=== PATIENT | male | born 1960 | race Two or more races ===

== ENCOUNTER 2024-02-28 09:16 | Emergency (ER) | payer OTHER, SELFPAY ==
[2024-02-28] VITALS (18 sets, daily range): BP systolic 154–189; BP diastolic 94–115; PULSE 70–91; TEMP 36.9; O2SAT 95–100; BMI 25.1
--- NOTE | 2024-02-28 09:34 | CT_ITS ---
The [address] [address] Patient Name: LAN WITT MRN: [id number] date: 1960 Sex: M Assigned Patient Location: ER Current Patient Location: Accession/Order Number: [id number] Exam Date: 02/28/2024 10:06 Report Date: 02/28/2024 10:36 At the request of: JUAREZ NAYAK Procedure: CT cervical spine wo con EXAMINATION: CT cervical spine wo con HISTORY: fall ; fell striking back of head; head and neck pain COMPARISON: No relevant comparison available. TECHNIQUE: Axial, Coronal, and Sagittal images were created without IV contrast. Dose reduction techniques were achieved by using automated exposure control and/or adjustment of mA and/or kV according to patient size and/or use of iterative reconstruction technique. FINDINGS: VERTEBRAL BODIES: Normal height and alignment. No fracture or bone lesion. FACET JOINTS: Multilevel moderate degenerative facet arthropathy; marked at C4-5 on the left. Bone encroachment results in narrowing of the neural foramen at multiple levels with marked narrowing on the left at C4-5. No disruption or abnormal widening. DISCS: Early degenerative disc disease is present without focal protrusion or neural impingement. CENTRAL CANAL: No spinal stenosis or evidence of hemorrhage. PARASPINAL AREA: No visible mass. CT/CT cervical spine wo con IMPRESSION: 1. No appreciable acute abnormality. 2. Multilevel moderate to marked degenerative facet arthropathy resulting in foramen narrowing. Electronically authenticated by: NORY WAN Date: 02/28/2024 10:36
--- NOTE | 2024-02-28 09:34 | ECG_ITS ---
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
--- NOTE | 2024-02-28 09:35 | CT_ITS ---
The [address] [address] Patient Name: LAN WITT MRN: [id number] date: 1960 Sex: M Assigned Patient Location: ER Current Patient Location: Accession/Order Number: [id number] Exam Date: 02/28/2024 10:06 Report Date: 02/28/2024 10:30 At the request of: JUAREZ NAYAK Procedure: CT head/brain wo con EXAMINATION: CT head/brain wo con HISTORY: fall ; patient fell recently striking back of head; head and neck pain COMPARISON: No relevant comparison available. TECHNIQUE: Axial CT images were obtained without IV contrast. Dose reduction techniques were achieved by using automated exposure control and/or adjustment of mA and/or kV according to patient size and/or use of iterative reconstruction technique. FINDINGS: BRAIN: No edema, hemorrhage, mass, acute infarction, or inappropriate atrophy. Incidental tiny calcification within left basal ganglia. CSF SPACES: No hydrocephalus, subarachnoid hemorrhage, or mass. Appropriate for age. SKULL: No fracture, mass, or other significant visible lesion. SINUSES: No significant mucosal thickening or fluid on the limited views. ORBITS: No appreciable abnormality on the limited views. OTHER: Negative CT/CT head/brain wo con IMPRESSION: 1. No acute intracranial abnormality. 2. No fracture of the calvarium or scalp hematoma. Electronically authenticated by: NORY WAN Date: 02/28/2024 10:30
--- NOTE | 2024-02-28 09:36 | ED.GENADUL1 ---
HPI HPI - General Adult General Chief complaint: Fall Stated complaint: HEAD/NECK PAIN Time Seen by Provider: 02/28/24 09:28 Source: patient Mode of arrival: walk-in Limitations: no limitations History of Present Illness HPI narrative: The patient have history of diabetes coming to us with 3 episodes of fall happened over the last few months the last 1 was a week ago, patient mentioned that he will be standing all of a sudden talking to his all of a sudden he will pass out and fall in the floor, he remembers just waking up in the floor he denies any nausea vomiting any preceding symptoms chest pain or dizziness But the patient mentioned that when he wakes up usually he is not confused he recognize where he had and he just wakes up and starts walking The patient denies any nausea vomiting or diarrhea, he does not have any primary care doctor that he follow-up with. 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 The patient is coming today with a pain in the back of his head as well as bilateral neck pain that he noticed over the last few days The patient denies any blurry vision or double vision more than his usual blurry vision due to his diabetes according to his history He also have bilateral hand numbness and feet numbness that due to diabetes too Related Data Home Medications ?Medication ?Instructions ?Recorded ?Confirmed dapagliflozin propanediol 10 mg 10 mg PO DAILY 02/28/24 02/28/24 tablet (Farxiga) insulin aspart 1 sliding scale dose subcut DAILY 02/28/24 02/28/24 (niacinamide)(U-100) 100 unit/mL(3 mL) subcutaneous pen (Fiasp FlexTouch U-100 Insulin) lisinopril 5 mg tablet 5 mg PO DAILY 02/28/24 02/28/24 metformin 500 mg tablet,extended 1,000 mg PO DAILY 02/28/24 02/28/24 release 24 hr rosuvastatin 40 mg tablet 40 mg PO DAILY 02/28/24 02/28/24 semaglutide 0.25 mg or 0.5 mg (2 0.5 mg subcut .weekly 02/28/24 02/28/24 mg/3 mL) subcutaneous pen injector (Ozempic) Previous Rx's ?Medication ?Instructions ?Recorded diclofenac sodium 50 mg 50 mg PO Q12H PRN pain #10 tabs 02/28/24 tablet,delayed release magnesium oxide 420 mg tablet 420 mg PO DAILY #10 tabs 02/28/24 orphenadrine citrate 100 mg 100 mg PO ONCE PRN muscle spasm 02/28/24 tablet,extended release #10 tabs Allergies Allergy/AdvReac Type Severity Reaction Status Date / Time No Known Drug Allergies Allergy Verified 02/28/24 09:22 Opioid HPI Opioid Management Most Recent Opioid Data: Last Pain Scale 2 02/28/24 11:29 02/28/24 Last ED Pain Assessment 02/28/24 11:29 Last MAR Pain Assessment 02/28/24 09:59 Review of Systems ROS Status of ROS 10 or more systems reviewed and unremarkable except as noted in history and below PFSH PFSH Social History Little interest or pleasure in doing things: not at all Feeling down, depressed, or hopeless: not at all Exam Narrative Exam Narrative: Nurses notes and vital signs reviewed and patient is not hypoxic. General: Well-appearing and in no apparent distress. Skin: Warm, dry, no pallor noted. No rash. Head: Normocephalic, atraumatic. Neck: There is no intervertebral line tenderness in the lower cervical levels but in the upper cervical level there is paraspinal muscle tenderness as well as intervertebral line tenderness Eye: Pupils are equal, round and EOMI. No scleral icterus. Ears, Nose, Mouth, and Throat: TM are clear, no nasal mucosal hypertrophy. Oral mucosa is moist, no posterior oropharynx erythema, uvula is mid-line Cardiovascular: Regular Rate and Rhythm without murmur, gallop or rub. Respiratory: No accessory muscle use or respiratory distress. Lungs are clear to auscultation, no wheezing, rales or rhonchi Chest Wall: no tenderness Back: No midline thoracic or lumbar vertebral tenderness. No CVA tenderness Musculoskeletal: normal ROM, no calf or popliteal tenderness, no lower extremity edema/swelling GI: Abdomen is soft, non-distended. Normal bowel sounds. No masses appreciated. No tenderness to palpation. No rebound, guarding, or rigidity noted. Neurological: A&O x4. No cranial nerve dysfunction observed. No truncal ataxia. Moves all extremities. Sensation intact. Psychiatric: Cooperative and interactive. Normal mood and affect. Constitutional Vital Signs, click to edit/add: Last Vital Signs Temp 98.4 F 02/28/24 09:34 Pulse 75 02/28/24 11:20 Resp 22 H 02/28/24 11:20 BP 189/94 H 02/28/24 11:00 Pulse Ox 96 02/28/24 11:20 O2 Del Method Room Air 02/28/24 09:22 Course Vital Signs Vital signs: Vital Signs Pulse Rate 91 H 02/28/24 09:22 Respiratory Rate 16 02/28/24 09:22 Blood Pressure 154/115 H 02/28/24 09:22 Pulse Oximetry 100 02/28/24 09:22 Oxygen Delivery Method Room Air 02/28/24 09:22 Temperature 98.4 F 02/28/24 09:34 Pulse Rate 75 02/28/24 11:20 Respiratory Rate 22 H 02/28/24 11:20 Blood Pressure 189/94 H 02/28/24 11:00 Pulse Oximetry 96 02/28/24 11:20 Oxygen Delivery Method Room Air 02/28/24 09:22 Medical Decision Making MDM Narrative Medical decision making narrative: The patient EKG showing sinus rhythm with a heart rate of [address] elevation or depression CT head and CT cervical spine showed no acute pathology but the patient have multiple disc disease with no spinal cord compression The patient also had a CBC and chemistry showing a low magnesium of 1.3 he was provided with IV magnesium as well as p.o. magnesium to go home The patient initially was offered to be admitted for observation but he mentioned that he has been dealing with this for a while and he just want to go and follow-up with his primary care that he was referred to a primary care as he did not have 1 before The patient to continue p.o. magnesium he is to monitor his symptoms in case of any symptom he is to come back to the ER The patient is to follow up with primary care physician in next 2-3 days or to return to the emergency department should any of the signs or symptoms worsen or new symptoms develop. The patient agrees with the following Diagnosis and Treatment plan and the patient will be discharged home. Lab Data Labs: Lab Results 02/28/24 Range/Units 09:41 WBC 6.7 (4.0-11.0) 10^3/uL RBC 5.14 (4.70-6.10) 10^6/uL Hgb 16.3 (14.0-18.0) g/dL Hct 47.0 (42.0-54.0) % MCV 91.4 (80.0-94.0) fL MCH 31.7 (25.9-34.0) pg MCHC 34.7 (29.9-35.2) g/dL RDW 11.7 (11.0-15.0) % Plt Count 219 (150-450) 10^3/uL MPV 10.1 (9.5-13.5) fL Neut % (Auto) 44.4 (43.0-75.0) % Lymph % (Auto) 37.1 (20.5-60.0) % [place] % (Auto) 13.1 H (1.7-12.0) % Eos % (Auto) 2.3 (0.9-7.0) % Baso % (Auto) 2.0 (0.2-2.0) % Neut # (Auto) 3.0 (1.4-6.5) 10^3/uL Lymph # (Auto) 2.5 (1.2-3.8) 10^3/uL [place] # (Auto) 0.9 H (0.3-0.8) 10^3/uL Eos # (Auto) 0.2 (0.0-0.7) 10^3/uL Baso # (Auto) 0.1 (0.0-0.1) 10^3/uL Abs Immat Gran (auto) 0.07 H (0.00-0.03) 10^3/uL Imm/Tot Granulo (auto) 1.1 H (0.0-0.5) % PT 10.8 (9.0-11.6) sec INR 1.02 Sodium 140 (136-145) mmol/L Potassium 4.8 (3.5-5.1) mmol/L Chloride 102 (98-107) mmol/L Carbon Dioxide 29.9 (21.0-32.0) mmol/L Anion Gap 12.9 BUN 14.0 (7.0-18.0) mg/dL Creatinine 1.21 (0.70-1.30) mg/dL Est GFR ( Amer) >60 (>=60 mL/min/1.73m^2) Est GFR (Non-Af Amer) >60 (>=60 mL/min/1.73m^2) BUN/Creatinine Ratio 11.6 Glucose 175 H (74-106) mg/dL Calcium 9.6 (8.5-10.1) mg/dL Magnesium 1.3 L (1.8-2.4) mg/dL Total Bilirubin 0.6 (0.2-1.0) mg/dL AST 41 H (15-37) U/L ALT 32 (16-63) U/L Alkaline Phosphatase 122 H (46-116) U/L Troponin I High Sens 53.0 (4.0-76.1) pg/mL Total Protein 8.5 H (6.4-8.2) g/dL Albumin 3.1 L (3.4-5.0) g/dL Globulin 5.4 g/dL Albumin/Globulin Ratio 0.6 Discharge Plan Discharge Chief Complaint: Fall Clinical Impression: Syncope, Neck pain, Hypomagnesemia Patient Disposition: Home, Self-Care Time of Disposition Decision: 11:40 Condition: Good Mode of Transportation: Private Vehicle Prescriptions / Home Meds: New magnesium oxide 420 mg tablet 420 mg PO DAILY Qty: 10 0RF orphenadrine citrate 100 mg tablet extended release 100 mg PO ONCE PRN (Reason: muscle spasm) Qty: 10 0RF diclofenac sodium 50 mg tablet,delayed release (DR/EC) 50 mg PO Q12H PRN (Reason: pain ) Qty: 10 0RF No Action metformin 500 mg tablet extended release 24 hr 1,000 mg PO DAILY dapagliflozin propanediol [Farxiga] 10 mg tablet 10 mg PO DAILY Fiasp FlexTouch U-100 Insulin 100 unit/mL (3 mL) insulin pen 1 sliding scale dose SUBCUT DAILY rosuvastatin 40 mg tablet 40 mg PO DAILY lisinopril 5 mg tablet 5 mg PO DAILY Ozempic 0.25 mg or 0.5 mg (2 mg/3 mL) pen injector 0.5 mg SUBCUT .weekly Print Language: Armenian Instructions: Hypomagnesemia (ED), Near Syncope (ED), Acute Neck Pain (ED) Referrals: Le Mares MD [Primary Care Provider] - 1 week Discharge Date/Time: 02/28/24 12:21
[2024-02-28 09:50] LABS: Basophils Absolute Auto 0.1 10^3/uL (0.0-0.1); Eosinophils Absolute Auto 0.2 10^3/uL (0.0-0.7); Eosinophils Percent Auto 2.3 % (0.9-7.0); Hemoglobin 16.3 g/dL (14.0-18.0); Immature Granulocytes Abs Auto 0.07 10^3/uL (0.00-0.03); Immature Granulocytes Pct Auto 1.1 % (0.0-0.5); Lymphocytes Absolute Auto 2.5 10^3/uL (1.2-3.8); Lymphocytes Percent Auto 37.1 % (20.5-60.0); Mean Corpuscular HGB Conc 34.7 g/dL (29.9-35.2); Mean Corpuscular Hemoglobin 31.7 pg (25.9-34.0); Mean Corpuscular Volume 91.4 fL (80.0-94.0); Mean Platelet Volume 10.1 fL (9.5-13.5); Monocytes Absolute Auto 0.9 10^3/uL (0.3-0.8); Monocytes Percent Auto 13.1 % (1.7-12.0); Neutrophils Percent Auto 44.4 % (43.0-75.0); Platelet Count 219 10^3/uL (150-450); Red Blood Count 5.14 10^6/uL (4.70-6.10); Red Cell Distribution Width 11.7 % (11.0-15.0); White Blood Count 6.7 10^3/uL (4.0-11.0)
[2024-02-28] MEDS: KETOROLAC TROMETHAMINE 30 MG/ML VIAL 15 MG IVP (09:59)
[2024-02-28 10:07] LABS: INR 1.02; Prothrombin Time 10.8 sec (9.0-11.6)
[2024-02-28 10:10] LABS: Alanine Aminotransferase 32 U/L (16-63); Albumin Globulin Ratio 0.6; Albumin Level 3.1 g/dL (3.4-5.0); Alkaline Phosphatase 122 U/L (46-116); Anion Gap 12.9; Aspartate Amino Transferase 41 U/L (15-37); BUN Creatinine Ratio 11.6; Bilirubin Total 0.6 mg/dL (0.2-1.0); Calcium 9.6 mg/dL (8.5-10.1); Carbon Dioxide 29.9 mmol/L (21.0-32.0); Chloride 102 mmol/L (98-107); Estimated GFR (African America >60 (>=60 mL/min/1.73m^2); Estimated GFR (Non-African Ame >60 (>=60 mL/min/1.73m^2); Globulin 5.4 g/dL; Glucose 175 mg/dL (74-106); Potassium 4.8 mmol/L (3.5-5.1); Sodium 140 mmol/L (136-145); Total Protein 8.5 g/dL (6.4-8.2)
[2024-02-28 10:12] LABS: Magnesium 1.3 mg/dL (1.8-2.4)
[2024-02-28] MEDS: MAGNESIUM SULFATE IN WATER 2 GM/50 ML PREMIX IV (11:23)
== END 2024-02-28 12:21 | disposition home or self-care (01) ==
PROVIDERS: Emergency Provider Emergency Medicine; PCP Family Medicine
DX: R55 Syncope and collapse (principal); M54.2 Cervicalgia; E83.42 Hypomagnesemia; Z91.81 History of falling
CPT/HCPCS: 36415; 70450; 72125; 80053; 83735; 84484; 85025; 85610; 93005; 96374; 96375; 99285; J1885; J3475

== ENCOUNTER 2024-09-20 11:49 | Inpatient (IN) | payer MEDICARE, SELFPAY ==
[2024-09-20 11:57] VITALS: BP 121/76; PULSE 98; TEMP 36.5; O2SAT 97; BMI 25.1
--- OUTSIDE RECORDS SUMMARY | 2024-09-20 11:59 | XMS_ITS | CCD ---
Author Organization [facility] Care Team Providers Care Sheet Metal Journeyman Name Role Phone MARCEL PAIZ Attending Unavailable STEVEN WAN Consulting Unavailable LE RODGERS Primary Care Unavailable MARCEL PAIZ Admitting Unavailable MARCEL PAIZ Consulting Unavailable Yolette Pierre Unavailable Le Rodgers Unavailable MD Le Rodgers Primary Care Provider TIFFANIE Pierre Attending Provider Unavailable Primary Care Provider UnavailMelanie Hale DO Unavailable Francis PEDIATRIC OCCUPATIONAL THERAPIST, Leticia Unavailable Tate PEDIATRIC OCCUPATIONAL THERAPIST, Suzanna Unavailable MELANIE DALEY Attending Unavailable Yolette Pierre APRN Attending Provider Yolette Pierre Attending Unavailable Yolette Pierre Admitting Unavailable Medications Current Medications Medication Drug Class(es) Dates Sig (Normalized) Sig (Original) 0.25 MG, 0.5 MG Dose 3 ML semaglutide 0.68 MG/ML Pen Injector [Ozempic] (5 sources) Start: 10-03-2022 Ozempic (0.25 or 0.5 MG/DOSE) 2 MG/3ML 0.25 mg Subcutaneous weely for 90 days September, Active Ozempic (0.25 or 0.5 MG/DOSE) 2 MG/3ML 0.5 mg Subcutaneous weely for 90 days COPAY CARD Active Ozempic (0.25 or 0.5 MG/DOSE) 2 MG/3ML 0.25 mg Subcutaneous weely for 90 days COPAY CARD Active Blood-Glucose Meter (ShelfFlip h Ultra2 Meter) [facility] (4 sources) Start: 06-18-2024 Blood-Glucose Meter (Onetouch Ultra2 Meter) [facility] Active 0 .Route 1 June 18, 2024 9:07am As directed test blood sugar three times daily Start: 06-18-2024 End: 06-18-2024 Blood-Glucose Meter (Onetouc h Ultra2 Meter) [facility] Discontinued 0 .Route June 18, 2024 12:00am June 18, 2024 9:08am As directed cholecalciferol 0.05 mg oral capsule (11 sources) Vitamin D Start: 09-05-2023 take 1 capsule by mouth once daily Cholecalciferol (Vitamin D3) 50 mcg (2,000 unit) capsule Active 100 MCG PO Daily September 04, 2023 11:00pm Start: 12-19-2022 take 1 capsule by mo [facility] every week Cholecalciferol 1.25 MG (26841 UT) 1 capsule Orally weekly for 56 days Then D3 OtC 4000 UT daily Dec, Active take 1 capsule by mo [facility] every week Cholecalciferol 100 MCG (4000 UT) 1 capsule Orally weekly for 56 days Then D3 OtC 4000 UT daily Active take 1 capsule by mo [facility] every week Cholecalciferol 1.25 MG (19945 UT) 1 capsule Orally weekly for 56 days Then D3 OtC 4000 UT daily Active empagliflozin 10 mg oral tablet (5 sources) Sodium-Glucose Cotransporter 2 Inhibitor take 1 tablet by mouth every twenty-four hours Jardiance 10 MG 1 tablet Orally Once a day for 90 day(s) patient has coupon card Active Flash Glucose Scanning [place] (Freestyle Miladys 2 [place]) [facility] (8 sources) Start: 09-07-19 Flash Glucose Scanning [place] (Freestyle Miladys 2 [place]) [facility] Active 0 .MEDSUPPLY September 07, 2023 12:58pm As directed to monitor blood sugar Start: 09-07-2023 Flash Glucose Scanning [place] (Freestyle Miladys 2 [place]) [facility] Active 0 .MEDSUPPLY September 07, 2023 1:58pm As directed to monitor blood sugar Start: 09-07-2023 End: 09-07-2023 Flash Glucose Scanning Reade r (Freestyle Miladys 2 [place]) [facility] Discontinued 0 .MEDSUPPLY September 06, 2023 11:00pm September 07, 2023 1:01pm As directed Start: 09-07-2023 End: 09-07-2023 Flash Glucose Scanning Reade r (Freestyle Miladys 2 [place]) misc Discontinued 0 .MEDSUPPLY September 07, 2023 12:00am September 07, 2023 2:01pm As directed Flash Glucose Sensor (Freest yle Miladys 2 Sensor) kit (10 sources) Start: 06-18-2024 Flash Glucose Sensor (Freestyle Miladys 2 Sensor) kit [facility] June 18, 2024 8:51am As directed Change every 14 Days Start: 03-24-2024 End: 06-18-2024 Flash Glucose Sensor (Freest yle Miladys 2 Sensor) kit Discontinued 0 KIT [facility] March 24, 2024 9:37am June 18, 2024 8:51am As directed Change every 14 Days Start: 03-24-2024 End: 03-24-2024 Flash Glucose Sensor (Freest yle Miladys 2 Sensor) kit Discontinued 0 KIT .[facility] March 24, 2024 12:00am March 24, 2024 9:37am As directed Change every 14 Days Start: 09-05-2023 End: 03-24-2024 Flash Glucose Sensor (Freest yle Miladys 2 Sensor) kit Discontinued EACH .[facility]TE [facility] September 04, 2023 11:00pm March 24, 2024 9:36am As directed Start: 09-05-2023 Flash Glucose Sensor (Freestyle Miladys 2 Sensor) kit Active EACH .ROUTE .[facility] September 05, 2023 12:00am As directed FreeStyle Miladys 2 [place] - (20 sources) Start: 08-24-2021 FreeStyle Libr e 2 [place] - as directed SQ 5 x day for 365 days Dx E11.65 patient needs reader only Aug, Active FreeStyle Miladys 2 Sensor - (20 sources) FreeStyle Miladys 2 Sensor - as directed in vitro q 14 days for 84 days Dx E11.65 Active FreeStyle Miladys 2 Sensor - USE DIRECTED AND CHANGE EVERY 14 DAYS for 84 Active FreeStyle Miladys 2 Sensor - USE DIRECTED EVERY 14 DAYS for 84 Active FreeStyle Miladys 2 Sensor - as directed in vitro q 14 days for 84 days Active 3 ml insulin aspart, human 100 unt/ml pen injector (13 sources) Insulin Analog Start: 01-21-2024 Insulin Aspart (Niacinamide) (Fiasp Flextouch U-100 Insulin) 100 unit/mL (3 mL) insulin pen Active 1 sliding scale dose SUBCUT Use as Directed January 20, 2024 11:00pm Start: 06-07-2023 Fiasp FlexTouc h 100 UNIT/ML ISS 1:40 Subcutaneous 4 x daily for 90 days Expect up to 50 u per day Jun, Active NovoLOG FlexPen 100 UNIT/ML 1:40 ISS Subcutaneous QID for 90 days HAS LISPRO, ASPART BACK UP Not-Taking/PRN 3 ml insulin glargine 100 unt/ml pen injector (20 sources) Insulin Analog Start: 04-23-2024 End: 04-23-2024 inject 60 [IU] by subcutaneous injection once daily in the evening Insulin Glargine 100 unit/mL (3 mL) insulin pen Active 40 UNIT SUBCUT Every evening 60 April 23, 2024 10:46am titrate to 60 u once daily, has written instructions Start: 02-15-2024 End: 04-23-2024 inject 60 [IU] by subcutaneous injection once daily in the evening Insulin Glargine 100 unit/mL (3 mL) insulin pen Discontinued 38 UNIT SUBCUT Every evening 60 February 15, 2024 12:39pm April 23, 2024 9:30am titrate to 60 u once daily, has written instructions Start: 01-21-2024 End: 02-15-2024 inject 60 [IU] by subcutaneous injection once daily in the evening Insulin Glargine 100 unit/mL (3 mL) insulin pen Discontinued 40 UNIT SUBCUT Every evening 60 January 21, 2024 9:36am February 15, 2024 12:40pm titrate to 60 u once daily, has written instructions Start: 09-10-2023 End: 01-21-2024 inject 60 [IU] by subcutaneous injection once daily in the evening Insulin Glargine 100 unit/mL (3 mL) insulin pen Discontinued 42 UNIT SUBCUT Every evening 37.8 90 September 10, 2023 7:44am January 21, 2024 9:16am titrate to 60 u once daily, has written instructions Start: 09-05-2023 End: 09-10-2023 inject 42 [IU] by subcutaneous injection once daily in the evening Insulin Glargine 100 unit/mL (3 mL) insulin pen Discontinued 42 UNIT SUBCUT Every evening September 04, 2023 11:00pm September 10, 2023 7:47am Start: 12-19-2022 Lantus SoloSta r 100 UNIT/ML 42 U Subcutaneous AT HS for 90 days TITRATE TO 60 U PER DAY Dec, Active Start: 07-20-2021 Semglee 100 UN IT/ML as directed Subcutaneous Expect up to 60 u per day (ISS 1:40) Jul, Active insulin glargine (Lantus) 100 UNIT/ML injection Inject under the skin at bedtime Active Lantus SoloStar 100 UNIT/ML 45 u Subcutaneous AT HS for 90 days TITRATE TO 60 U PER DAY Active inject 40 [IU] by juares bcutaneous injection once daily Semglee 100 UNIT/ML 40 u Subcutaneous daily for 90 days Titrate to 60 u per day Active inject 45 [IU] by juares bcutaneous injection once daily Semglee 100 UNIT/ML 45 units Subcutaneous Daily insurance changed from Lantus to Semglee Active lisinopril 2.5 mg oral tablet (13 sources) Angiotensin Converting Enzyme Inhibitor Start: 09-05-2023 take 1 tablet by mouth once daily Lisinopril 2.5 mg tablet Active 2.5 MG PO Daily September 04, 2023 11:00pm Start: 02-28-2023 take 1 tablet by destiny th every twenty-four hours Lisinopril 5 MG 1 tablet Orally Once a day for 90 days Feb, Active Start: 12-19-2022 take 1 tablet by destiny th every twenty-four hours Lisinopril 2.5 MG 1 tablet Orally Once a day for 30 days Escalate per PCP Dec, Active OXcarbazepine 150 mg oral tablet (4 sources) Anti-epileptic Agent Start: 04-07-2024 End: 04-07-2025 take 1 tablet by mouth once daily Oxcarbazepine 150 mg tablet Active 150 MG PO Daily April 23, 2024 12:00am ozempic (0.25 or 0.5 mg/dose) 2 mg/3ml solution pen-injector (4 sources) Ozempic (0.25 or 0.5 MG/DOSE) 2 MG/3ML 0.5 mg Subcutaneous weely for 90 days COPAY CARD Active pen needle, diabetic (Novofine 32) (4 sources) Start: 09-05-2023 pen needle, diabetic (Novofine 32) Active .Route September 04, 2023 11:00pm Start: 09-05-2023 pen needle, di abetic (Novofine 32) Active .Route September 05, 2023 12:00am Start: 09-05-2023 pen needle, di abetic (Novofine 32) Active .ROUTE September 05, 2023 12:00am ReliOn Prime Monitor - (20 sources) ReliOn Prime Mon itor - as directed Active ReliOn Prime Test - (20 sources) ReliOn Prime Kymberly t - as directed In Vitro Active rosuvastatin calcium 40 mg oral tablet (20 sources) HMG-CoA Reductase Inhibitor Start: 09-05-2023 take 1 tablet by mouth once daily Rosuvastatin 40 mg tablet Active 40 MG PO Daily September 04, 2023 11:00pm Semaglutide (5 sources) Start: 06-18-2024 inject 1 mg by subcutaneous injection every week Semaglutide (Ozempic) 1 mg/dose (4 mg/3 mL) pen injector Active 1 MG SUBCUT every week 3 June 18, 2024 9:37am patient will have [facility] voucher information Start: 01-21-2024 End: 06-18-2024 inject 1 mg by subcutaneous injection every week Semaglutide (Ozempic) 1 mg/dose (4 mg/3 mL) pen injector Discontinued 1 MG SUBCUT every week 3 January 20, 2024 11:00pm June 18, 2024 9:39am Start: 01-21-2024 inject 1 mg by subcu taneous injection every week Semaglutide (Ozempic) 1 mg/dose (4 mg/3 mL) pen injector Active 1 MG SUBCUT every week 3 January 21, 2024 12:00am Semaglutide (OZEMPIC, 0.25 O R 0.5 MG/DOSE, SC) (2 sources) Semaglutide (OZE MPIC, 0.25 OR 0.5 MG/DOSE, SC) Inject under the skin Active Completed/Discontinued Medications Medication Drug Class(es) Dates Sig (Normalized) Sig (Original) dapagliflozin 10 mg oral tablet (20 sources) Sodium-Glucose Cotransporter 2 Inhibitor Start: 09-05-2023 End: 09-10-2023 take 1 tablet by mouth once daily Dapagliflozin Propanediol (Farxiga) 10 mg tablet Active 10 MG PO Daily September 10, 2023 7:43am On Hold: Cost prohibitive, applying for Pap Start: 02-03-2022 take 1 tablet by destiny th every twenty-four hours Farxiga 5 MG 1 tablet Orally Once a day for 30 day(s) has coupon card Jan, Active Insulin Aspart U-100 (Novolog Flexpen U-100 Insulin) 100 unit/mL (3 mL) insulin pen (4 sources) Start: 09-05-2023 End: 09-10-2023 Insulin Aspart U-100 (Novolo g Flexpen U-100 Insulin) 100 unit/mL (3 mL) insulin pen Discontinued SUBCUT September 04, 2023 11:00pm September 10, 2023 7:11am [id number] ISS Subcutaneous QID; Note: Source Status: Not-TakingundefinedPRNHAS LISPRO, ASPART BACK UP; Refills: 1; Qty: 30 ml; Provider: Gabby Eisenberg Start: 09-05-2023 End: 09-10-2023 Insulin Aspart U-100 (Novolo g Flexpen U-100 Insulin) 100 unit/mL (3 mL) insulin pen Discontinued SUBCUT September 05, 2023 12:00am September 10, 2023 8:11am [email or web address] ISS Subcutaneous QID; Note: Source Status: Not-Taking\PRNHAS LISPRO, ASPART BACK UP; Refills: 1; Qty: 30 ml; Provider: Gabby Eisenberg 3 ml insulin degludec 100 unt/ml pen injector (9 sources) Insulin Analog Start: 09-18-2022 Tresiba FlexTo uch 100 UNIT/ML 45 u Subcutaneous daily for 90 days September, Not-Taking/PRN Insulin Lispro (20 sources) Insulin Analog Start: 09-10-2023 End: 01-21-2024 Insulin Lispro Discontinued 0 SUBCUT Use as Directed September 10, 2023 8:45am January 21, 2024 10:15am ISS 1:50, expect up to 30 u per day Start: 09-10-2023 Insulin Lispro Active 0 SUBCUT Use as Directed September 10, 2023 8:45am ISS 1:50, expect up to 30 u per day Start: 09-10-2023 End: 09-10-2023 Insulin Lispro Discontinued 1 sliding scale dose SUBCUT Use as Directed September 10, 2023 12:00am September 10, 2023 8:47am inject 50 [IU] by juares bcutaneous injection once as needed Insulin Lispro (1 Unit Dial) 100 UNIT/ML INJECT UNDER THE SKIN DIRECTED PER SLIDING SCALE 1:40 THREE TIMES DAILY BEFORE MEALS. EXPECT MAX DAILY DOSE OF 50 UNITS. for 90 Not-Taking/PRN HumaLOG KwikPen 100 UNIT/ML corrective scale 1:40 QID Subcutaneous 4 x daily for 90 days Expect up to 50 u per day Active HumaLOG KwikPen 100 UNIT/ML Scale 1:40 AC TID, HS >200 1/2 dose Subcutaneous as directed for 90 days Expect up to 50 u per day (HAS ASPART BACK UP) Active Insulin Lispro 100 unit/mL insulin pen (4 sources) Start: 09-10-2023 End: 01-21-2024 Insulin Lispro 100 unit/mL insulin pen Discontinued 0 SUBCUT Use as Directed September 10, 2023 7:45am January 21, 2024 9:15am ISS 1:50, expect up to 30 u per day Start: 09-10-2023 End: 09-10-2023 Insulin Lispro 100 unit/mL i nsulin pen Discontinued 1 sliding scale dose SUBCUT Use as Directed September 09, 2023 11:00pm September 10, 2023 7:47am Insulin Lispro-Aabc (Lyumjev Kwikpen U-200 Insulin) 200 unit/mL (3 mL) insulin pen (2 sources) Start: 06-11-2024 End: 06-18-2024 Insulin Lispro-Aabc (Lyumjev Kwikpen U-200 Insulin) 200 unit/mL (3 mL) insulin pen Discontinued 1 sliding scale dose SUBCUT Use as Directed June 11, 2024 12:00am June 18, 2024 8:53am ISS 1:40 ICR 1:10 ACHS TID. Expect up to 40 u per day 24 hr metFORMIN hydrochloride 500 mg extended release oral tablet (20 sources) Biguanide Start: 09-10-2023 End: 06-18-2024 take 1 tablet by mouth once daily at dinner Metformin 500 mg tablet extended release 24 hr Discontinued 1500 MG PO Daily 270 90 April 23, 2024 10:48am June 18, 2024 8:56am 2 tabs with breakfast, one tab with dinner Start: 09-10-2023 take 2 tablets by mo uth once daily at breakfast, then take 1 tablet by mouth at dinner Metformin Active 1500 MG PO Daily 270 90 September 10, 2023 8:41am 2 tabs with breakfast, one tab with dinner Start: 09-10-2023 End: 04-23-2024 Metformin 500 mg tablet exte nded release 24 hr Discontinued 1000 MG PO .am September 10, 2023 7:12am April 23, 2024 12:37pm On Hold: combine in one entry Start: 09-10-2023 End: 09-10-2023 take 1 tablet by mouth once daily in the evening Metformin 500 mg tablet extended release 24 hr Discontinued 500 MG PO Every evening September 09, 2023 11:00pm September 10, 2023 7:47am Start: 09-05-2023 End: 09-10-2023 Metformin 500 mg tablet exte nded release 24 hr Discontinued 1000 MG PO Twice daily September 04, 2023 11:00pm September 10, 2023 7:14am Start: 09-05-2023 End: 09-10-2023 Metformin Active 1000 MG PO .am September 10, 2023 8:12am On Hold: combine in one entry Start: 11-11-2021 take 1 tablet by destiny th twice daily at dinner, then take 2 tablets by mouth twice daily at mealtime metFORMIN HCl ER 500 MG 1 tablet twice daily with breakfast and dinner Orally Twice daily for 30 day(s) Start 1 tab daily increasing weekly to 2 tabs twice daily with meals. Hold at tolerated dose if side effects Nov, Active take 2 tablets by mo uth at mealtime metFORMIN (Glucophage) 500 MG tablet Take 1,000 mg by mouth in the morning. Take with meals. Active take 2 tablets by mo uth in the morning, then take 1 tablet by mouth twice daily in the evening metFORMIN HCl ER 500 MG 2 TABLET AM, ONE TABLET PM Orally Twice daily for 90 days Active Prodigy Autocode Blood Gluco se - (5 sources) Start: 06-17-2020 Prodigy Autoco de Blood Glucose - as directed In Vitro QID for 90 days Jun, Not-Taking Semaglutide (8 sources) Start: 09-10-2023 End: 04-23-2024 Semaglutide (Ozempic) 0.25 m g or 0.5 mg (2 mg/3 mL) pen injector Discontinued 0.5 MG SUBCUT every week 9.568 September 10, 2023 7:40am April 23, 2024 12:37pm On Hold: dose change Start: 09-10-2023 Semaglutide (O zempic) 0.25 mg or 0.5 mg (2 mg/3 mL) pen injector Active 0.5 MG SUBCUT every week 9.568 September 10, 2023 8:40am On Hold: dose change Start: 09-10-2023 Semaglutide (O zempic) 0.25 mg or 0.5 mg (2 mg/3 mL) pen injector Active 0.5 MG SUBCUT every week 9.568 September 10, 2023 8:40am Start: 09-05-2023 End: 09-10-2023 Semaglutide (Ozempic) 0.25 m g or 0.5 mg (2 mg/3 mL) pen injector Discontinued MG SUBCUT September 04, 2023 11:00pm September 10, 2023 7:47am Start: 09-05-2023 End: 09-10-2023 Semaglutide (Ozempic) 0.25 m g or 0.5 mg (2 mg/3 mL) pen injector Discontinued MG SUBCUT September 05, 2023 12:00am September 10, 2023 8:47am Semglee 100 UNIT/ML (20 sources) inject 45 [IU] by juares bcutaneous injection once daily as needed Semglee 100 UNIT/ML 45 u Subcutaneous Daily for 90 days Expect up to 60 u per day Not-Taking/PRN inject 45 [IU] by juares bcutaneous injection once daily Semglee 100 UNIT/ML 45 u Subcutaneous Daily for 90 days Expect up to 60 u per day Not-Taking inject 45 [IU] by juares bcutaneous injection once daily at bedtime Semglee 100 UNIT/ML 45 units Subcutaneou s [facility] insurance changed from Lantus to Semglee Active inject 45 [IU] by juares bcutaneous injection once daily Semglee 100 UNIT/ML 45 u Subcutaneous Daily for 90 days Expect up to 60 u per day Active inject 40 [IU] by juares bcutaneous injection once daily Semglee 100 UNIT/ML 40 u Subcutaneous daily for 90 days Titrate to 60 u per day Active inject 45 [IU] by juares bcutaneous injection once daily Semglee 100 UNIT/ML 45 units Subcutaneou s Daily insurance changed from Lantus to Semglee Active Problems Problem Classification Problem Date Documented Date Episodic/Chronic Administrative/social admission (18 sources) Dietary counseling and surveillance; Translations: [Patient encounter status] Onset: 07-20-2021 Resolved: 11-01-2021 Episodic Diabetes mellitus with complications (20 sources) Hyperglycemia due to type 2 diabetes mellitus; Translations: [Type 2 diabetes mellitus with hyperglycemia] Onset: 07-20-2021 Resolved: 11-21-2021 Chronic Diabetes mellitus without complication (1 source) Type 2 diabetes mellitus without complications; Translations: [TYPE 2 DM WITHOUT COMPLICATIONS] Onset: 04-12-2020 Chronic Disorders of lipid metabolism (20 sources) Hyperlipidemia; Translations: [Hyperlipidemia, unspecified] Onset: 07-20-2021 Resolved: 11-01-2021 Chronic Essential hypertension (20 sources) Hypertensive disorder; Translations: [Essential (primary) hypertension] Onset: 07-20-2021 Resolved: 11-01-2021 Chronic Genitourinary symptoms and ill-defined conditions (20 sources) Proteinuria, unspecified; Translations: [Persistent albuminuria] Onset: 06-18-2024 Episodic Malaise and fatigue (4 sources) Weakness; Translations: [WEAKNESS] Onset: 04-08-2020 Episodic Nutritional deficiencies (20 sources) Vitamin D deficiency; Translations: [Vitamin D deficiency, unspecified] Onset: 07-20-2021 Resolved: 11-01-2021 Chronic Other aftercare (16 sources) intermediate (current) use of insulin; Translations: [Long-term (current) use of insulin] Onset: 04-12-2020 Resolved: 11-21-2021 Episodic Other aftercare (20 sources) Long-term 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 insulin; Translations: [intermediate (current) use of insulin] 09-05-2023 Episodic Other connective tissue disease (2 sources) Neuralgia; Translations: [Neuralgia and neuritis, unspecified] 04-07-2024 Episodic Other fractures (2 sources) Fracture of multiple ribs ; Translations: [Multiple fractures of ribs, unspecified side, initial encounter for closed fracture] 04-23-2024 Episodic Comment on above: Patient states has 3 cracked ribs, fell first week April 2024 Other nervous system disorders (20 sources) Neuropathy; Translations: [Polyneuropathy, unspecified] Chronic Other nutritional; endocrine; and metabolic disorders (4 sources) Body mass index (BMI) 27.0-27.9, adult Onset: 07-20-2021 Resolved: 11-01-2021 Episodic Other nutritional; endocrine; and metabolic disorders (3 sources) Body mass index (BMI) 28.0-28.9, adult Episodic Other nutritional; endocrine; and metabolic disorders (1 source) Body mass index (BMI) 26.0-26.9, adult Episodic Other nutritional; endocrine; and metabolic disorders (6 sources) Body mass index (BMI) 25.0-25.9, adult; Translations: [Body Mass Index 25.0-25.9, adult] Episodic Other nutritional; endocrine; and metabolic disorders (4 sources) Overweight in adulthood with body mass index of 25 or more but less than 30; Translations: [Body mass index (BMI) 25.0-25.9, adult] 09-05-2023 Episodic Other skin disorders (14 sources) Nail deformity; Translations: [Other nail disorders] Episodic Spondylosis; intervertebral disc disorders; other back problems (2 sources) Degeneration of cervical intervertebral disc; Translations: [Other cervical disc degeneration, unspecified cervical region] 04-07-2024 Chronic Unclassified (1 source) COVID-19; Translations: [COVID-19] Onset: 04-12-2020 Results Test Name Value Interpretation Reference Range Facility Creatinine [Mass/volume] in UrineOrdered By: Yolette Pierre on 06-18-2024 Creatinine (U) [Mass/Vol] Creatinine [Mass/volume] in Urine [facility] Comment on above: No reference range e stablished MicroAlb Creat Ratio,Uon Albumin DL <= 20 mg/L (U) [Mass/Vol] mg/dL High 0.0-1.[address] [facility] Comment on above: Performed By: #### U RMACRERAT #### [facility] [address] Creatinine, Urine (Random) 123.00 mg/dL Normal [facility] Comment on above: Result Comment: No r eference range established Performed By: #### U RMACRERAT #### [facility] [address] Microalbumin/Creat inine Ratio Not performed Normal 0.0-30.[address] [facility] Comment on above: Result Comment: PERF ORMED BY: [place] [address] PATHOLOGIST EXHIBIT SPECIALIST TAWANA BONILLA M.D. Performed By: #### U RMACRERAT #### [facility] [address] Microalbumin [Mass/volume] i n UrineOrdered By: Yolette Pierre on 06-18-2024 Albumin DL <= 20 mg/L (U) [Mass/Vol] Microalbumin [Mass/volume] in Urine High 0.0-1.8 [facility] Urine microalbumin/creatinin e mass ratioOrdered By: Yolette Pierre on 06-18-2024 Albumin/Creatinine DL <= 20 mg/L (U) [Mass ratio] Urine microalbumin/creatinin e mass ratio [facility] Comment on above: Test not performed HbA1c HPLC (Bld) [Mass fract ion]on 04-23-2024 HbA1c (Bld) [Mass fraction] Hemoglobin A1c/Hemoglobin.total in Blood by HPLC [facility] No Panel Informationon 04-23 Bedside Glucose 110 [facility] HbA1c HPLC (Bld) [Mass fract ion]on 09-10-2023 HbA1c (Bld) [Mass fraction] 6.4 % [facility] No Panel Informationon 09-09 Bedside Glucose 126 [facility] A1C HEMOGLOBINon 06-05-2023 HbA1c (Bld) [Mass fraction] 6.9 % [employer] Other Glucose - FINGER STICKon Glucose [Mass/Vol] 132 mg/dL [employer] Other HbA1c (Bld) [Mass fraction]o n 06-05-2023 A1C HEMOGLOBIN [employer] Other A1C HEMOGLOBINon 02-27-2023 HbA1c (Bld) [Mass fraction] 6.4 % [employer] Other Creatinine [Mass/volume] in UrineOrdered By: Yolette Pierre on 02-27-2023 Creatinine (U) [Mass/Vol] 89.0 mg/dL 14.0-26.0 [facility] Glucose - FINGER STICKon Glucose [Mass/Vol] 132 mg/dL [employer] Other HbA1c (Bld) [Mass fraction]o n 02-27-2023 A1C HEMOGLOBIN [employer] Other MicroAlb Creat Ratio,Uon Creatinine (U) [Mass/Vol] 89.2303702 mg/dL High 14.0-26.0 mg/dL [employer] Other MicroAlb Creat Ratio,UOrdere d By: Yolette Pierre on 02-27-2023 Albumin DL <= 20 mg/L (U) [Mass/Vol] mg/dL 0.0-1.8 [facility] Albumin/Creatinine DL <= 20 mg/L (U) [Mass ratio] TNP [facility] Comment on above: Test not performed Glucose - FINGER STICKon Glucose [Mass/Vol] 160 mg/dL [employer] Other A1C HEMOGLOBINon 10-03-2022 HbA1c (Bld) [Mass fraction] 7.0 % [employer] Other Glucose - FINGER STICKon Glucose [Mass/Vol] 88 mg/dL [employer] Other HbA1c (Bld) [Mass fraction]o n 10-03-2022 A1C HEMOGLOBIN [employer] Other Glucose - FINGER STICKon Glucose [Mass/Vol] 137 mg/dL [employer] Other A1C HEMOGLOBINon 05-05-2022 HbA1c (Bld) [Mass fraction] 7.5 % [employer] Other Glucose - FINGER STICKon Glucose [Mass/Vol] 199 mg/dL [employer] Other HbA1c (Bld) [Mass fraction]o n 05-05-2022 A1C HEMOGLOBIN [employer] Other A1C HEMOGLOBINon 02-03-2022 HbA1c (Bld) [Mass fraction] 7.7 % [employer] Other Glucose - FINGER STICKon Glucose - FINGER STICK [employer] Other A1C HEMOGLOBINon 11-01-2021 HbA1c (Bld) [Mass fraction] 8.1 % [employer] Other Glucose - FINGER STICKon Glucose [Mass/Vol] 232 mg/dL [employer] Other HbA1c (Bld) [Mass fraction]o n 11-01-2021 A1C HEMOGLOBIN [employer] Other A1C HEMOGLOBINon 07-20-2021 HbA1c (Bld) [Mass fraction] 8.0 % [employer] Other Glucose - FINGER STICKon Glucose [Mass/Vol] 159 mg/dL [employer] Other HbA1c (Bld) [Mass fraction]o n 07-20-2021 A1C HEMOGLOBIN [employer] Other ACETONE SERUMon 04-08-2020 ACETONE SMALL Normal NEGATIVE [facility] Comment on above: Performed By: #### A CETON ####[facility] [address] [place], [place] [address]Kfobig Brii BNPon 04-08-2020 Natriuretic peptide B (Bld) [Mass/Vol] 72.0 pg/mL Normal <=900.0 [facility] Comment on above: Performed By: #### C MP, TSH, TROP, BNP #### [facility] [address] [address] Kisha Brii CBC AUTO DIFFon 04-08-2020 Basophils (Bld) [#/Vol] 0.0 103/ul Normal 0.0-0.1 [facility] Comment on above: Performed By: #### C BC #### [facility] [address] [place], [place] [id number] Kisha Brii Basophils/100 WBC (Bld) 0.4 % Normal 0.2-2.0 [facility] Comment on above: Performed By: #### C BC #### [facility] [address] [place] [address] Kisha Brii Eosinophils (Bld) [#/Vol] 0.0 103/ul Normal 0.0-0.7 [facility] Comment on above: Performed By: #### C BC #### [facility] [address] [place], [place] [phone] Kisha Brii Eosinophils/100 WBC (Bld) 0.0 % Critically low 0.9-7.0 [facility] Comment on above: Performed By: #### C BC #### [facility] [address] [place], [place] [phone] Kisha Costelloen Erythrocyte distribution width (RBC) [Ratio] 13.3 % Normal 11.0-15.0 [facility] Comment on above: Performed By: #### C BC #### [facility] [address] [place], [place] [phone] Kisha Brii Hematocrit (Bld) [Volume fraction] 45.3 % Normal 42.0-54.0 [facility] Comment on above: Performed By: #### C BC #### [facility] [address] [place], [place] [phone] Kisha Brii Hemoglobin (Bld) [Mass/Vol] 15.9 g/dL Normal 14.0-18.0 [facility] Comment on above: Performed By: #### C BC #### [facility] [address] [place], [place] [address] Kishaunruly Teresa IG # 0.03 10e3/ul Normal 0.00-0.03 [facility] Comment on above: Performed By: #### C BC #### [facility] [address] [place], [place] [address] Kisha Brii IG % 0.6 % Critically high 0.0-0.[address] [facility] Comment on above: Performed By: #### C BC #### [facility] [address] [place], [place] [phone] Kisha Brii Lymphocytes (Bld) [#/Vol] 1.8 103/ul Normal 1.2-3.8 [facility] Comment on above: Performed By: #### C BC #### [facility] [address] [place] [address] Kisha Brii Lymphocytes/100 WBC (Bld) 37.3 % Normal 20.5-60.0 [facility] Comment on above: Performed By: #### C BC #### [facility] [address] [place], [place] [phone] Kisha Brii MANUAL DIFF REQ NO Normal [facility] Comment on above: Performed By: #### C BC #### [facility] [address] [place], [place] [address] Kisha Brii MCH (RBC) [Entitic mass] 31.4 pg Normal 25.9-34.0 [facility] Comment on above: Performed By: #### C BC #### [facility] [address] [place] [address] Kisha Brii MCHC (RBC) [Mass/Vol] 35.1 g/dL Normal 29.9-35.2 [facility] Comment on above: Performed By: #### C BC #### [facility] [address] [place], [place] [phone] Kisha Brii MCV (RBC) [Entitic vol] 89.3 fL Normal 80.0-94.0 [facility] Comment on above: Performed By: #### C BC #### [facility] [address] [place], [place] [address] Kisha Brii Monocytes (Bld) [#/Vol] 0.7 103/ul Normal 0.3-0.8 [facility] Comment on above: Performed By: #### C BC #### [facility] [address] [place], [place] [address] Kisha Brii Monocytes/100 WBC (Bld) 14.5 % Critically high 1.7-12.0 [facility] Comment on above: Performed By: #### C BC #### [facility] [address] [place], [place] [address] Kisha Brii Neutrophils (Bld) [#/Vol] 2.3 103/ul Normal 1.4-6.5 [facility] Comment on above: Performed By: #### C BC #### [facility] [address] [place], [place] [address] Kisha Brii Neutrophils/100 WBC (Bld) 47.2 % Normal 43.0-75.0 [facility] Comment on above: Performed By: #### C BC #### [facility] [address] [place], [place] [address] Kisha Brii Platelet mean volume (Bld) [Entitic vol] 11.7 fL Normal 9.5-13.5 [facility] Comment on above: Performed By: #### C BC #### [facility] [address] [place], [place] [address] Kisha Brii Platelets (Bld) [#/Vol] 157 103/ul Normal 150-450 [facility] Comment on above: Performed By: #### C BC #### [facility] [address] [place], [place] [address] Kisha Brii RBC (Bld) [#/Vol] 5.07 106/ul Normal 4.70-6.10 [facility] Comment on above: Performed By: #### C BC #### [facility] [address] [place], [place] [address] Kisha Brii WBC (Bld) [#/Vol] 4.9 103/ul Normal 4.0-11.0 [facility] Comment on above: Performed By: #### C BC #### [facility] [address] [place], [place] [address] Kisha Teresa CTA CHEST WO W CONon 020 CTA CHEST WO W CON EXAMINATION: CTA CASSIDY ST WO W CON HISTORY: SHORTNESS OF BREATH , weakness, fatigue COMPARISON: No relevant comparison available. TECHNIQUE: Multi-planar CT images were created with 100 mL Omnipaque 350 IV contrast. Axial, Coronal, and Sagittal images. Dose reduction techniques were achieved by using automated exposure control and/or adjustment of mA and/or kV according to patient size and/or use of iterative reconstruction technique. FINDINGS: VASCULATURE: No pulmonary embolism or abnormal opacity. LUNGS: Moderate infiltrates versus atelectasis within the lower lobes bilaterally with scattered faint patchy opacities within the upper lobes, right middle lobe, and lingula. PLEURA: No mass, effusion, or pneumothorax. JAVID: A few nonpathologically enlarged lymph nodes. MEDIASTINUM: Several visible, not pathologically enlarged lymph nodes. CARDIAC: No enlargement, pericardial effusion, or pericardial thickening. AORTA: No aneurysm or dissection. CHEST WALL: No mass or axillary adenopathy. BONES: No bone lesion or fracture. LIMITED ABDOMEN: No suspicious findings. Limited images of the upper abdomen. OTHER: Negative. IMPRESSION: 1. Multifocal moderate infiltrates. 2. No pulmonary embolism. Electronically authenticated by: STEVEN WAN Date: 2020-04-08 12:41 Normal [facility] D-DIMERon 04-08-2020 D-DIMER COMMENTS SEE BELOW Normal [facility] Comment on above: Result Comment: Incr eases in D-Dimer concentration observed with thromboembolic events can be variable due to localization, size, and age of the thrombus. Therefore, a thromboembolic event cannot be diagnosed with certainty on the basis of the reference range. D-Dimers may also be elevated for a variety of disorders including: advanced age, , coronary disease, cancer, liver disease, infection, inflammation, hematoma, DIC, trauma, post-surgery, diabetes, thrombolytic or anticoagulant therapy, stress, and generalizd hospitalization. Performed By: #### D DIM, PTT, PT ####[facility] [id number] [place], [place] [address]MzojmsKisha Teresa Fibrin D-dimer FEU IA (Bld) [Mass/Vol] 1.16 ug/mL Critically high 0.19-0.50 [facility] Comment on above: Result Comment: test repeated critcal value verified Performed By: #### D DIM, PTT, PT ####[facility] [address] [place], [place] [address]Zlbjfz Brii PH VENOUS BLOODon 04-08-2020 PCO2 VENOUS 46.4 mmHg Normal 40.0-52.0 [facility] Comment on above: Performed By: #### P HVEN #### [facility] [address] [id number] Kisha Brii pH VENOUS 7.37 Normal 7.33-7.43 [facility] Comment on above: Performed By: #### P HVEN #### [facility] [address] [place] [address] Kisha Teresa PROF 14(COMP METB)on 020 Albumin [Mass/Vol] 2.4 g/dL Critically low 3.5-5.0 [facility] Comment on above: Performed By: #### C MP, TSH, TROP, BNP #### [facility] [address] [id number] Kishaunruly Teresa Albumin/Globulin [Mass ratio] 0.4 {ratio} Normal [facility] Comment on above: Performed By: #### C MP, TSH, TROP, BNP #### [facility] [address] [address] Kisha Brii ALP [Catalytic activity/Vol] 68 U/L Normal 38-126 [facility] Comment on above: Performed By: #### C MP, TSH, TROP, BNP #### [facility] [address] [id number] Kisha Brii ALT [Catalytic activity/Vol] 33 U/L Normal 21-72 [facility] Comment on above: Performed By: #### C MP, TSH, TROP, BNP #### [facility] [address] [id number] Kisha Brii Anion gap [Moles/Vol] 10.1 mmol/L Normal [facility] Comment on above: Performed By: #### C MP, TSH, TROP, BNP #### [facility] [address] [address] Kisha Brii AST [Catalytic activity/Vol] 50 U/L Normal 17-59 [facility] Comment on above: Performed By: #### C MP, TSH, TROP, BNP #### [facility] [address] [address] Kisha Brii Bilirubin Ql (U) 0.9 mg/dL Normal 0.2-1.3 [facility] Comment on above: Performed By: #### C MP, TSH, TROP, BNP #### [facility] [address] [place] [address] Kisha Brii Calcium [Mass/Vol] 8.7 mg/dL Normal 8.4-10.2 [facility] Comment on above: Performed By: #### C MP, TSH, TROP, BNP #### [facility] [address] [place] [address] Kisha Brii Chloride [Moles/Vol] 96 mmol/L Critically low 98-107 [facility] Comment on above: Performed By: #### C MP, TSH, TROP, BNP #### [facility] [address] [place] [address] Kisha Brii CO2 [Moles/Vol] 27.9 mmol/L Normal 22.0-30.0 [facility] Comment on above: Performed By: #### C MP, TSH, TROP, BNP #### [facility] [address] [place] [address] Kisha Brii Creatinine [Mass/Vol] 1.13 mg/dL Normal 0.66-1.25 [facility] Comment on above: Performed By: #### C MP, TSH, TROP, BNP #### [facility] [address] [place] [address] Kisha Brii EGFR-AF DANISH >60 Normal >=60 [facility] Comment on above: Performed By: #### C MP, TSH, TROP, BNP #### [facility] [address] [place] [address] Kisha Brii EGFR-NON AF DANISH >60 Normal >=60 [facility] Comment on above: Performed By: #### C MP, TSH, TROP, BNP #### [facility] [address] [address] Kisha Brii Globulin (S) [Mass/Vol] 5.8 g/dL Normal [facility] Comment on above: Performed By: #### C MP, TSH, TROP, BNP #### [facility] [address] [address] Kisha Brii Glucose [Mass/Vol] 263 mg/dL Critically high 74-106 [facility] Comment on above: Performed By: #### C MP, TSH, TROP, BNP #### [facility] [address] [place] [address] Kisha Brii Potassium [Moles/Vol] 3.0 mmol/L Critically low 3.4-5.0 [facility] Comment on above: Performed By: #### C MP, TSH, TROP, BNP #### [facility] [address] [place] [address] Kisha Brii Protein [Mass/Vol] 8.2 g/dL Normal 6.1-8.2 [facility] Comment on above: Performed By: #### C MP, TSH, TROP, BNP #### [facility] [address] [place] [address] Kisha Brii Sodium [Moles/Vol] 131 mmol/L Critically low 137-145 Th [facility] Comment on above: Performed By: #### C MP, TSH, TROP, BNP #### [facility] [address] [place] [address] Kisha Brii Urea nitrogen [Mass/Vol] 15.0 mg/dL Normal 9.0-20.0 [facility] Comment on above: Performed By: #### C MP, TSH, TROP, BNP #### [facility] [address] [address] Kisha Brii Urea nitrogen/Creatinin e [Mass ratio] 13.3 mg/mg Normal [facility] Comment on above: Performed By: #### C MP, TSH, TROP, BNP #### [facility] [address] [place], [place] [address] Kisha Teresa PROTIMEon 04-08-2020 INR Coag (PPP) [Relative time] 1.03 {INR} Normal [facility] Comment on above: Performed By: #### D DIM, PTT, PT ####[facility] [address] [place], [place] [address]Njhxvn Karen PT Coag (PPP) [Time] 10.9 s Normal 9.0-11.6 [facility] Comment on above: Performed By: #### D DIM, PTT, PT ####[facility] [address] [place], [place] [address]Zjyvcj Karen PT Coag (PPP) [Time] SEE BELOW Normal [facility] Comment on above: Result Comment: PIO RED INR: 2.0 - 3.0 CONDITIONS NOT LISTED BELOW 2.5 - 3.5 FOR PROSTHETIC HEART VALVE REPLACEMENT 2.5 - 3.5 RECURRENT THROMBOSIS Performed By: #### D DIM, PTT, PT ####[facility] [address] [place], [place] [address]AqeosnKisha Teresa PTTon 04-08-2020 aPTT Coag (Bld) [Time] PLEASE NOTE: NORMAL RANGE CHANGE 03-31-2015 DUE TO REAGENT LOT CHANGE Normal [facility] Comment on above: Performed By: #### D DIM, PTT, PT #### [facility] [address] [place], [place] [address] Kisha Teresa aPTT Coag (Bld) [Time] 26.7 s Normal 22.3-36.2 [facility] Comment on above: Performed By: #### D DIM, PTT, PT #### [facility] [address] [place], [place] [address] Kisha Teresa Rapid Covid-19 PCR (CVDRPD)o n 04-08-2020 [employer] LDT Info SEE BELOW Normal [facility] Comment on above: Result Comment: This test is not yet approved or cleared by the [place] Food and Drug Administration (FDA) . This test was developed by [employer], [place]. The performance characteristics of this test were validated by [facility]. The results are not intended to be used as the sole means for clinical diagnosis or patient management decisions. [facility] is authorized under Clinical Laboratory Improvement Amendments (CLIA) to perform high-complexity testing. When diagnostic testing is negative, the possibility of a false negative should be considered in the context of a patients recent exposures and the presence of clinical signs and symptoms consistent with SARS-CoV-2. Performed By: #### C VDRPD #### [facility] [address] [place] [address] SARS-CoV-2 DETECTED NOT DETECTED [facility] Comment on above: Result Comment: . Performed By: #### C VDRPD #### [facility] [address] [place] [address] TROPONIN - Ion 04-08-2020 Troponin I.cardiac [Mass/Vol] SEE BELOW Normal [facility] Comment on above: Result Comment: <0.0 34 ng/ml NEGATIVE 0.034-0.119 INDETERMINATE 0.120 AMI CUT OFF Performed By: #### C MP, TSH, TROP, BNP #### [facility] [address] [place] [address] Troponin I.cardiac [Mass/Vol] ng/mL Normal <=0.034 [facility] Comment on above: Performed By: #### C MP, TSH, TROP, BNP #### [facility] [address] [place] [address] TSHon 04-08-2020 TSH Qn 2.851 uIU/mL Normal 0.470-4.680 [facility] Comment on above: Performed By: #### C MP, TSH, TROP, BNP #### [facility] [address] [place] [address] TSH Qn SEE BELOW Normal [facility] Comment on above: Result Comment: <0.3 4 UIU/ml HYPERTHYROID 0.34-5.60 UIU/ml EUTHYROID >5.60 UIU/ml HYPOTHYROID Performed By: #### C MP, TSH, TROP, BNP #### [facility] [address] [place] [address] XR CHEST 1 Von 04-08-2020 XR CHEST 1 V EXAMINATION: XR CHES T 1 V HISTORY: Asthenia ; acute fatigue, weakness COMPARISON: No relevant comparison available. FINDINGS: LUNGS: Underexpanded lungs with mild haziness in the lung bases. VASCULATURE: No increased pulmonary vasculature. PLEURA: No pneumothorax, effusion, or pleural thickening. CARDIAC: No cardiomegaly or cardiac silhouette abnormality. MEDIASTINUM: No visible mass or adenopathy. BONES: No fracture or visible bone lesion. OTHER: Negative. IMPRESSION: 1. Low lung volume examination with trace amount of bibasilar atelectasis versus infiltrates, right greater than left. Electronically authenticated by: STEVEN WAN Date: 2020-04-08 11:49 Normal [facility] Vital Signs Date Time Vital Sign Value Performing Clinician Maritza flores 06-18-2024 08:41-0500 Body height 173.99 cm [facility] 06-18-2024 08:41-0500 Body mass index (BMI) [Ratio] 26.9 kg/m2 [facility] 06-18-2024 08:41-0500 Body weight 81.4 kg [facility] 06-18-2024 08:41-0500 Diastolic blood pressure 86 mm[Hg] [facility] 06-18-2024 08:41-0500 Heart rate 74 /min [facility] 06-18-2024 08:41-0500 Respiratory rate 18 /min [facility] 06-18-2024 08:41-0500 SaO2% (BldA) [Mass fraction] 99 % [facility] 06-18-2024 08:41-0500 Systolic blood pressure 138 mm[Hg] [facility] 04-23-2024 09:26-0500 Body height 173.99 cm [facility] 04-23-2024 09:26-0500 Body mass index (BMI) [Ratio] 26.8 kg/m2 [facility] 04-23-2024 09:26-0500 Body weight 81.27 kg [facility] 04-23-2024 09:26-0500 Diastolic blood pressure 98 mm[Hg] [facility] 04-23-2024 09:26-0500 Heart rate 83 /min [facility] 04-23-2024 09:26-0500 Respiratory rate 18 /min [facility] 04-23-2024 09:26-0500 SaO2% (BldA) [Mass fraction] 98 % [facility] 04-23-2024 09:26-0500 Systolic blood pressure 142 mm[Hg] [facility] 04-07-2024 08:17-0500 Body height 175.3 cm Christopher Edi DO Work Phone: [facility] 04-07-2024 08:17-0500 Body mass index (BMI) [Ratio] 26.11 kg/m2 Christopher Edi DO Work Phone: [facility] 04-07-2024 08:17-0500 Body weight 80.2 kg Christopher Edi DO Work Phone: [facility] 04-07-2024 08:17-0500 Diastolic blood pressure 88 mm[Hg] Christopher Edi DO Work Phone: [facility] 04-07-2024 08:17-0500 Heart rate 84 /min Christopher Edi DO Work Phone: [facility] 04-07-2024 08:17-0500 SaO2% (BldA) [Mass fraction] 98 % Christopher Edi DO Work Phone: [facility] 04-07-2024 08:17-0500 Systolic blood pressure 150 mm[Hg] Christopher Edi DO Work Phone: [facility] 01-21-2024 09:58-0400 Body height 173.99 cm [facility] 01-21-2024 09:58-0400 Body mass index (BMI) [Ratio] 25.5 kg/m2 [facility] 01-21-2024 09:58-0400 Body weight 77.28 kg [facility] 01-21-2024 09:58-0400 Diastolic blood pressure 91 mm[Hg] [facility] 01-21-2024 09:58-0400 Heart rate 82 /min [facility] 01-21-2024 09:58-0400 Respiratory rate 18 /min [facility] 01-21-2024 09:58-0400 SaO2% (BldA) [Mass fraction] 99 % [facility] 01-21-2024 09:58-0400 Systolic blood pressure 137 mm[Hg] [facility] 09-10-2023 08:17-0400 Body height 173.99 cm [facility] 09-10-2023 08:17-0400 Body mass index (BMI) [Ratio] 26.9 kg/m2 [facility] 09-10-2023 08:17-0400 Body weight 81.33 kg [facility] 09-10-2023 08:17-0400 Diastolic blood pressure 91 mm[Hg] [facility] 09-10-2023 08:17-0400 Heart rate 87 /min [facility] 09-10-2023 08:17-0400 Respiratory rate 18 /min [facility] 09-10-2023 08:17-0400 SaO2% (BldA) [Mass fraction] 99 % [facility] 09-10-2023 08:17-0400 Systolic blood pressure 134 mm[Hg] [facility] 06-05-2023 09:15-0500 Body height 173.99 cm Yolette Scally Other [facility] 06-05-2023 09:15-0500 Body mass index (BMI) [Ratio] 25.9 kg/m2 Yolette Scally Other [facility] [employer] Other 06-05-2023 09:15-0500 Body weight 78.43 kg Yolette Scally Other [facility] [employer] Other 06-05-2023 09:15-0500 Body weight 78.42 kg MD Le Rodgers Work Phone: [facility] 06-05-2023 09:15-0500 Diastolic blood pressure 83 mm[Hg] Yolette Scally Other [facility] 06-05-2023 09:15-0500 Respiratory rate 18 /min Yolette Scally Other [employer] Other 06-05-2023 09:15-0500 SaO2% (BldA) [Mass fraction] 99 % Yolette Scally Other [employer] Other 06-05-2023 09:15-0500 Systolic blood pressure 119 mm[Hg] Yolette Scally Other [facility] 02-27-2023 10:45-0400 Body height 173.99 cm Yolette Scally Other [employer] Other 02-27-2023 10:45-0400 Body mass index (BMI) [Ratio] 26.07 kg/m2 Yolette Scally Other [employer] Other 02-27-2023 10:45-0400 Body weight 78.93 kg Yolette Scally Other [employer] Other 02-27-2023 10:45-0400 Diastolic blood pressure 86 mm[Hg] Yolette Scally Other [employer] Other 02-27-2023 10:45-0400 Respiratory rate 18 /min Yolette Scally Other [employer] Other 02-27-2023 10:45-0400 SaO2% (BldA) [Mass fraction] 99 % Yolette Scally Other [employer] Other 02-27-2023 10:45-0400 Systolic blood pressure 126 mm[Hg] Yolette Scally Other [employer] Other 12-19-2022 08:45-0400 Body height 173.99 cm Yolette Scally Other [employer] Other 12-19-2022 08:45-0400 Body mass index (BMI) [Ratio] 26.37 kg/m2 Yolette Scally Other [employer] Other 12-19-2022 08:45-0400 Body weight 79.83 kg Yolette Scally Other [employer] Other 12-19-2022 08:45-0400 Diastolic blood pressure 95 mm[Hg] Yolette Scally Other [employer] Other 12-19-2022 08:45-0400 Respiratory rate 18 /min Yolette Scally Other [employer] Other 12-19-2022 08:45-0400 SaO2% (BldA) [Mass fraction] 98 % Yolette Scally Other [employer] Other 12-19-2022 08:45-0400 Systolic blood pressure 149 mm[Hg] Yolette Scally Other [employer] Other 10-03-2022 08:15-0400 Body height 173.99 cm Yolette Scally Other [employer] Other 10-03-2022 08:15-0400 Body mass index (BMI) [Ratio] 27.3 kg/m2 Yolette Scally Other [employer] Other 10-03-2022 08:15-0400 Body weight 82.65 kg Yolette Scally Other [employer] Other 10-03-2022 08:15-0400 Diastolic blood pressure 90 mm[Hg] Yolette Scally Other [employer] Other 10-03-2022 08:15-0400 Respiratory rate 18 /min Yolette Scally Other [employer] Other 10-03-2022 08:15-0400 SaO2% (BldA) [Mass fraction] 99 % Yolette Scally Other [employer] Other 10-03-2022 08:15-0400 Systolic blood pressure 142 mm[Hg] Yolette Scally Other [employer] Other 07-24-2022 10:30-0400 Body height 173.99 cm Le Rodgers Other [employer] Other 07-24-2022 10:30-0400 Body mass index (BMI) [Ratio] 27.72 kg/m2 Le Rodgers Other [employer] Other 07-24-2022 10:30-0400 Body weight 83.92 kg Le Rodgers Other [employer] Other 07-24-2022 10:30-0400 Diastolic blood pressure 80 mm[Hg] Le Rodgers Other [employer] Other 07-24-2022 10:30-0400 SaO2% (BldA) [Mass fraction] 97 % Le Rodgers Other [employer] Other 07-24-2022 10:30-0400 Systolic blood pressure 130 mm[Hg] Le Rodgers Other [employer] Other 06-28-2022 09:00-0500 Body height 175.26 cm Yolette Scally Other [employer] Other 06-28-2022 09:00-0500 Body mass index (BMI) [Ratio] 27.98 kg/m2 Yolette Scally Other [employer] Other 06-28-2022 09:00-0500 Body weight 85.96 kg Yolette Scally Other [employer] Other 06-28-2022 09:00-0500 Diastolic blood pressure Yolette Scally Other [employer] Other 06-28-2022 09:00-0500 Respiratory rate 18 /min Yolette Scally Other [employer] Other 06-28-2022 09:00-0500 SaO2% (BldA) [Mass fraction] 98 % Yolette Scally Other [facility] Other 06-28-2022 09:00-0500 Systolic blood pressure 116 mm[Hg] Yolette Scally Other [facility] Other 05-05-2022 09:15-0500 Body height 175.26 cm Yolette Scally Other [facility] Other 05-05-2022 09:15-0500 Body mass index (BMI) [Ratio] 28.84 kg/m2 Yolette Scally Other [facility] Other 05-05-2022 09:15-0500 Body weight 88.59 kg Yolette Scally Other [facility] Other 05-05-2022 09:15-0500 Diastolic blood pressure 67 mm[Hg] Yolette Scally Other [facility] Other 05-05-2022 09:15-0500 Respiratory rate 18 /min Yolette Scally Other [facility] Other 05-05-2022 09:15-0500 SaO2% (BldA) [Mass fraction] 97 % Yolette Scally Other [facility] Other 05-05-2022 09:15-0500 Systolic blood pressure 96 mm[Hg] Yolette Scally Other [facility] Other 02-03-2022 09:30-0400 Body height 175.26 cm Yolette Scally Other [facility] Other 02-03-2022 09:30-0400 Body mass index (BMI) [Ratio] 28.14 kg/m2 Yolette Scally Other [facility] Other 02-03-2022 09:30-0400 Body weight 86.46 kg Yolette Scally Other [facility] Other 02-03-2022 09:30-0400 Diastolic blood pressure 94 mm[Hg] Yolette Scally Other [facility] Other 02-03-2022 09:30-0400 Respiratory rate 18 /min Yolette Scally Other [facility] Other 02-03-2022 09:30-0400 SaO2% (BldA) [Mass fraction] 99 % Yolette Scally Other [facility] Other 02-03-2022 09:30-0400 Systolic blood pressure 141 mm[Hg] Yolette Scally Other [facility] Other 11-01-2021 10:15-0400 Body height 175.26 cm Yolette Scally Other [facility] Other 11-01-2021 10:15-0400 Body mass index (BMI) [Ratio] 27.76 kg/m2 Yolette Scally Other [facility] Other 11-01-2021 10:15-0400 Body weight 85.28 kg Yolette Scally Other [facility] Other 11-01-2021 10:15-0400 Diastolic blood pressure 92 mm[Hg] Yolette Scally Other [facility] Other 11-01-2021 10:15-0400 Respiratory rate 18 /min Yolette Scally Other [facility] Other 11-01-2021 10:15-0400 SaO2% (BldA) [Mass fraction] 99 % Yolette Scally Other [facility] Other 11-01-2021 10:15-0400 Systolic blood pressure 123 mm[Hg] Yolette Scally Other [facility] Other 07-20-2021 09:45-0400 Body height 175.26 cm Yolettegibran Segally Other [facility] Other 07-20-2021 09:45-0400 Body mass index (BMI) [Ratio] 27.85 kg/m2 Yolette Scally Other [facility] Other 07-20-2021 09:45-0400 Body weight 85.55 kg Yolette Philipply Other [facility] Other 07-20-2021 09:45-0400 Diastolic blood pressure 93 mm[Hg] Yolette Scally Other [facility] Other 07-20-2021 09:45-0400 Respiratory rate 20 /min Yolette Scally Other [facility] Other 07-20-2021 09:45-0400 SaO2% (BldA) [Mass fraction] 100 % Yolette Scally Other [facility] Other 07-20-2021 09:45-0400 Systolic blood pressure 139 mm[Hg] Yolette Scally Other [facility] Other Encounters Encounter Date Encounter Type Care Provider Facility Start: 06-18-2024 End: 06-18-2024 ambulatory Yoletteedilma Segalbereket [facility] Work Phone: Start: 06-18-2024 End: 06-18-2024 Departed Referred Yolette Pierre EXTRACTOR OPERATOR Work Phone: [facility] [place] Work Phone: Start: 06-18-2024 End: 06-18-2024 ambulatory [facility] Work Phone: Start: 06-18-2024 End: 06-18-[address] [facility] Work Phone: Start: 04-23-2024 End: 04-23-[address] [facility] Work Phone: Start: 04-07-2024 End: 04-07-2024 Bamboo flowsheet Ezekieler Edi DO Work Phone: [facility] Start: 04-07-2024 End: 04-07-2024 Bamboo flowsheet Christopher Edi DO Work Phone: [employer] [facility] Start: 04-07-2024 End: 04-07-2024 Office outpatient new 45 minutes Melanie Murrayett DO Work Phone: [employer] [facility] Comment on above: Neuralgia (Primary D x); DDD (degenerative disc disease), cervical Start: 04-07-2024 End: 04-07-2024 ambulatory MELANIE DALEY Not Available Start: 01-21-2024 End: 01-21-2024 ambulatory [facility] Work Phone: Start: 01-21-2024 End: 01-21-[address] [facility] Work Phone: Start: 09-10-2023 End: 09-10-2023 ambulatory [facility] Work Phone: Start: 09-10-2023 End: 09-10-[address] [facility] Work Phone: Start: 06-07-2023 End: 06-07-2023 ambulatory Yolette Pierre Other [place] [employer] Other Start: 06-07-2023 Telephone encounter [facility] Start: 06-05-2023 (DM) Diabetes Yolette maldonado [facility] Start: 06-05-2023 End: 06-05-2023 ambulatory MD Le Rodgers Work Phone: [facility] Other Start: 06-05-2023 End: 06-05-2023 Discharged Recurring MD Le Rodgers Work Phone: [facility] Work Phone: Start: 06-05-2023 End: 06-05-2023 Patient encounter procedure MD Le Rodgers Work Phone: [facility]- Start: 05-18-2023 End: 05-18-2023 ambulatory Yolette Scally Other [facility] Other Start: 05-18-2023 Telephone encounter Yolette Scally [facility] Start: 02-28-2023 End: 02-28-2023 ambulatory Yolette Scally Other [facility] Other Start: 02-28-2023 Telephone encounter Yolette Scally [facility] Start: 02-27-2023 (DM) Diabetes Yolette Scally [facility] Start: 02-27-2023 End: 02-27-2023 ambulatory Yolette Scally Other [facility] Other Start: 12-19-2022 (DM) Diabetes Yolette Scally [facility] Start: 12-19-2022 End: 12-19-2022 ambulatory Yolette Scally Other [facility] Other Start: 12-07-2022 End: 12-07-2022 ambulatory Yolette Scally Other [facility] Other Start: 12-07-2022 Telephone encounter Yolette Scally [facility] Start: 10-03-2022 (DM) Diabetes Yolette Scally [facility] Start: 10-03-2022 End: 10-03-2022 ambulatory Yolette Scally Other [facility] Other Start: 10-03-2022 Telephone encounter Yolette Scally [facility] Start: 07-24-2022 End: 07-24-2022 ambulatory Le Rodgers Other [facility] Other Start: 07-24-2022 Office outpatient ne w 30 minutes Le Rodgers [facility] Start: 07-04-2022 End: 07-04-2022 ambulatory Yolette Scally Other [facility] Other Start: 07-04-2022 Telephone encounter Yolette Scally [facility] Start: 06-28-2022 (DM) Diabetes Yolette Scally [facility] Start: 06-28-2022 End: 06-28-2022 ambulatory Yolette Scally Other [facility] Other Start: 06-26-2022 End: 06-26-2022 ambulatory Yolette Scally Other [facility] Other Start: 06-26-2022 Telephone encounter Yolette Scally [facility] Start: 06-19-2022 End: 06-19-2022 ambulatory Yolette Scally Other [facility] Other Start: 06-19-2022 Telephone encounter Yolette Scally [facility] Start: 05-05-2022 (DM) Diabetes Yolette Scally [facility] Start: 05-05-2022 End: 05-05-2022 ambulatory Yolette Scally Other [facility] Other Start: 03-27-2022 End: 03-27-2022 ambulatory Yolette Scally Other [facility] Other Start: 03-27-2022 Telephone encounter Yolette Scally [facility] Start: 02-03-2022 (DM) Diabetes Yolette Scally [facility] Start: 02-03-2022 End: 02-03-2022 ambulatory Yolette Scally Other [facility] Other Start: 11-21-2021 End: 11-21-2021 ambulatory Yolette Scally Other [facility] Other Start: 11-21-2021 Telephone encounter Yolette Scally [facility] Start: 11-11-2021 End: 11-11-2021 ambulatory Yolette Scally Other [facility] Other Start: 11-11-2021 Telephone encounter Yolette Scally [facility] Start: 11-01-2021 (DM) Diabetes Yolette Scally [facility] Start: 11-01-2021 End: 11-01-2021 ambulatory Yolette Scally Other [facility] Other Start: 10-24-2021 End: 10-24-2021 ambulatory Yolette Scally Other [facility] Other Start: 10-24-2021 Telephone encounter Yolette Scally [facility] Start: 09-13-2021 End: 09-13-2021 ambulatory Yolette Scally Other [facility] Other Start: 09-13-2021 Telephone encounter Yolette Scally [facility] Start: 08-23-2021 End: 08-23-2021 ambulatory Yolette Scally Other [facility] Other Start: 08-23-2021 Telephone encounter Yolette smiley [facility] Start: 08-04-2021 End: 08-04-2021 ambulatory Yolette Pierre Other [facility] Other Start: 08-04-2021 Telephone encounter Yolette smiley [facility] Start: 07-20-2021 (DM) Diabetes Yolette Mcfarland [facility] Start: 07-20-2021 End: 07-20-2021 ambulatory Yolette Pierre Other [facility] Other Start: 04-08-2020 End: 04-08-2020 Patient encounter procedure MARCEL CHENCHO Facility: Plan of Treatment Date Care Activity Detail Author Start: 04-07-2024 End: 04-07-2024 Patient encounter procedure 04/07/2024 8:30 AM EST Office Visit [facility] [address] [id number] Melanie Daley DO [address] [place] [address] Arrived [facility] Comment on above: Arrived Comprehensive metabo lic 1999 panel - Serum or Plasma [facility] Comprehensive metabo lic 1999 panel - Serum or Plasma [facility] Payers Date Payer Category Payer Self-pay [id number] 2024 Unknown [id number] 2022 Medicare (Managed Care) [facility] [id number] 2022 Medicare [id number] 1960 Unknown [id number] 1960 Unknown [id number] 1959 Unknown [id number] Medicare [id number] Unknown [id number] Social History Date Type Detail Facility Unknown if ever smoked [facility] Other Sex Assigned At [facility] Other Start: 1960 Sex Assigned At Male F [facility] Start: 09-10-2023 End: 09-10-2023 Tobacco smoking status IAIS Ex-smoker (finding) [facility] Tobacco smoking status [facility] Tobacco smoking consumption unknown [facility] Start: 1960 Sex assigned at Not on file [facility] Start: 06-18-2024 End: 06-19-2024 Sex Male (finding) [facility] Medical Equipment Procedure Code Equipment Code Equipment Origin al Text Equipment Identifier Dates Blood Sugar Diagnostic (Onetouch Ultra Test) strip Start: 06-18-2024 Lancets misc Start: 06-18-2024 Blood Sugar Diagnostic (Onetouch Ultra Test) strip Start: 06-18-2024 End: 06-18-2024 Lancets misc Start: 06-18-2024 End: 06-18-2024 Blood Sugar Diagnostic (Onetouch Ultra Test) strip Start: 06-18-2024 Lancets misc Start: 06-18-2024 Blood Sugar Diagnostic (Onetouch Ultra Test) strip Start: 06-18-2024 End: 06-18-2024 [facility] Start: 06-18-2024 End: 06-18-2024 Clinical Notes 07-20-2021 to 04-23-2024 Note Date & Type Note Facility 04-23-2024 Evaluation note Diagnosis Onset Date Resolution BMI 25.0-25.9,adult acute Decem viji 2023 8:54am Dietary counseling and surveillance acute April 23 8:54am HTN (hypertension) acute Decemb er 2023 8:54am Hyperlipidemia acute April 062023 8:54am intermediate 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 insulin acute April 23 024 8:54am Persistent albuminuria acute De cember 2023 8:54am Type 2 diabetes mellitus with hyperglycemia acute April 8:54am Vitamin D deficiency acute Dece mber 2023 8:54am BMI 25.0-25.9,adult acute Febru jennie 2024 8:25am Dietary counseling and surveillance acute June 18 8:25am HTN (hypertension) acute Februa ry 2024 8:25am Hyperlipidemia acute June 072024 8:25am intermediate 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 insulin acute June 18 8:25am Persistent albuminuria acute Fe bruary 2024 8:25am Type 2 diabetes mellitus with hyperglycemia acute June 8:25am Vitamin D deficiency acute Febr uary 2024 8:25am [facility] Work Phone: 1([phone] 999-130712-02-2024 History of Present illness Narrative* Melanie Daley, - 04/07/2024 8:30 AM EST Images from the original note were not included. Chief complaint: Headaches Subjective Jassi Rodriguez, 64 y.o., male Patient presents today for a neurologic consult for headaches. Patient states he passed out in January sometime. He fell and hit his head on a door frame. He states every since this episode he has been having pain. The pain is located on the top of his head and down the back of his neck. This is constant but can vary in severity. He has not tried any medications for this. He will occasionally ta ke ibuprofen which does help. He reports intermittent dizziness which he states is normal for him since becoming diabetic. He denies any vision changes but states he has always had poor vision. He has passed out a few times before this episode but denies any episodes since the one in January. Review of Systems Constitutional: Negative for appetite change, fatigue and fever. Respiratory: Negative for cough, shortness of breath and wheezing. Cardiovascular: Negative for chest pain, palpitations and leg swelling. Gastrointestinal: Negative for abdominal pain, constipation, diarrhea and nausea. Musculoskeletal: Positive for neck pain. Negative for arthralgias, gait problem and myalgias. Neurological: Positive for headaches. Negative for dizziness, tremors and numbness. No past medical history on file. No past surgical history on file. No family history on file. Social History Tobacco Use Smoking status: Not on file Smokeless tobacco: Not on file Substance Use Topics Alcohol use: Not on file Allergies: Patient has no known allergies. Vitals: 04/07/24 0817 BP: 150/88 Pulse: 84 SpO2: 98% Body mass index is 26.11 kg/m . weight: 176 lb 12.8 oz Neurologic exam: Mental status: Awake, alert to person, place and time. Recent and remote memory are intact. Language is fluent without aphasia. Attention and concentration are normal. Fund of knowledge is appropriate for level of education. Cranial nerves: CN II: Visual acuity is normal. Visual doran full to confrontation. CN III, IV, : pupils equal round and reactive to light. Extraocular movements intact. No ptosis present. CN V: Facial sensation is normal. CN VII: Full and symmetric facial movement. CN VIII: Hearing is normal to finger rub bilaterally: CN IX and X: Palate elevates symmetrically. CN XI: Shoulder shrug is normal bilaterally. CN XII: Tongue is midline without atrophy or fasciculation. Motor: RUE Strength deltoid, , biceps , triceps , wrist extensors , wrist flexor , apricot washer strength 5/5. LUE Strength deltoid , biceps , triceps , wrist extensors , wrist flexor , apricot washer strength 5/5. RLE Strength illopsoas, quadriceps, tibialis anterior, and gastrocnemius strength 5/5. LLE Strength illopsoas, quadriceps, tibialis anterior, and gastrocnemius strength 5/5. Normal tone x4 extremities. Bulk is normal. Sensory: Sensation is intact to light touch throughout Four extremities. Reflexes: RUE biceps reflex 2+ brachioradialis reflex 2+ . LUE biceps reflex 2+ brachioradialis reflex 2+ . RLE knee reflex 2+ . LLE knee reflex 2+ . Christy's sign negative. Coordination: [id number] testing and rapid alternating movements are normal Gait: Normal Review and summary of old records: Laboratory evaluation on 02/28/2024: Basic metabolic panel within normal limits with a sodium of 140 CT scan of the brain without contrast on 02/28/2024: No acute intracranial abnormality. No fractureof the calvarium detected. CT of the cervical spine without contrast on 02/28/2024: No appreciable acute abnormality. Multilevel moderate to marked degenerative facet arthropathy and foraminal narrowing are identified. Assessment/Plan Diagnoses and all orders for this visit: Neuralgia It is my impression that the patient has headache pain and neuralgia and this is probably a combination of headache disorder and facet and foraminal degenerative changes in the neck. CT of the brain was unremarkable for acute pathology. CT of the cervical spine does demonstrate degenerative changesand foraminal narrowing. The patient really does not complain of severe radicular symptoms. He states his head is more of his problem and he relates neuralgia type symptoms more than migrainous pathology. Plan: Start oxcarbazepine 150 mg p.o. b.I.d.. Sodium normal recently. Patient advised of side effects. Patient understands and wishes proceed. Follow up considerations could be given a medication such as gabapentin given the patient's historyof diabetes and what he states is a numbness in his hands and feet DDD (degenerative disc disease), cervical Monitor for more clear evolution of symptoms related to degenerative disc disease of the cervical spine. Patient denies radicular symptoms. He gets patchy numbness and likely has neuropathy in the lower extremities. However, these complaints become more widespread, more severe or follow more of a clear radicular or neuropathic pattern patient may benefit from electrodiagnostic testing with EMG. Pt has been fully educated on their diagnosis, treatment options, follow up plan, and return instructions documented in this encounterResearch [facility]ton [id number] Evaluation note* Encounter Date Diagnosis Assessment Notes Treatment Notes Treatment Clinical Notes Jun, Type 2 diabetes mellitus with hyperglycemia (ICD-10 - E11.65) [facility] Other 01-30-2024 Evaluation note* Encounter Date Diagnosis Assessment Notes Treatment Notes Treatment Clinical Notes May, Type 2 diabetes mellitus with hyperglycemia (ICD-10 - E11.65) ASSESSMENT: 1. Controlled a Type 2 diabetes with A1c of 6.9%, from 6.4 % GMI today 7.0%. No true lows, but low baseline on insulin 2. Recheck UMIC d/t persistent microalbuminuria now on Farxiaga nd increased/ tolerating Lisinopril. He should continue Metformin 1500 mg daily, Ozempic 0.5 mg weekly (), managing prandial BG. Continue Lantus but reduce to 42 u once daily, maintain Humalog correction 1:40 (carries chart in wall). Continue Vitamin D now OTC and Vitamin B12. RTC 3 mos. STILL NEEDS TO ESTABLISH WITH NEW PCP (DR BARAJAS PER INSURANCE). Notes: Seen for an assessment of current glucose pattern, changes in treatment plan, counseling and coordination of care related to diabetes, risks, and benefits of treatment, medications, side effects. Given handouts to reinforce concepts reviewed during counseling, see scanned notes. TOPICS REVIEWED: 1. Time was spent reviewing: a. Basic concepts of diabetes, progressive beta cell , concepts of basal/bolus/correcti ve insulin requirements. Basal: The goal is fasting blood glucose of 90-130mg. IF fasting blood glucose starts to run under 100mg 3x's/ week, decrease dose by 10%. Bolus: The goal is to hold the blood glucose level steady meal to meal. If pt. is going to have increased physical activity after a meal, decrease the schedule meal dose prior to the activity by 30-50%. If pt. skips a meal do not take this dose. Correction: The goal is to correct an elevated glucose back into the 100-150mg range b. Nutrition: Concepts of healthy diet, encouraged to decrease saturated fat in diet and increase non-starchy vegetables and fruits in diet. BMI: Pt. needs to select one small change to decrease caloric intake or increase physical activity to help decrease weight. c. Correct treatment of hypoglycemia, carry a glucose source at all times on your person, in vehicles, and at bedside. Can use glucose tablets/4, four ounces of pop or juice equal to 15 G of carbohydrate. Blood glucose should be 100 mg/dl or higher when driving. d. ADA glucose goals for age and medical complexity reviewed e. Patient questions addressed 2. Activity/exercise: Encouraged to start any form of physical activity. Start low level and increase slowly to a minimal goal of 150 minutes/week. Limit activity to what is allowed by other issues such as cardiac, pulmonary or orthopedic restrictions. 3. Standards of care: Reminded to have an annual dilated eye exam, A1C every 3 months, urine testing for microalbumin once/year, check feet daily and report any cuts or sores that do not appear to be healing. 4. Meter: Plan to check blood glucose: Please check blood glucose levels 4 times/day. Back to back meals reveal effectiveness of bolus dosing. The blood glucose data is used to determine insulin doses and confirm symptoms for hypoglycemia and hyperglcyemia. 5. [facility]. Contact office if any issues or concerns with patterns of hypoglycemia, hyperglycemia, or diabetes medication issues. 6. Prescriptions: Request refills for Lisinopri and Ozempic 02-27-2023. May, Vitamin D deficiency (ICD-10 - E55.9) Learning About Vitamin D material was published to portal May, Dietary counseling and surveillance (ICD-10 - Z71.3) Learning About Healthy Weight material was published to portal May, Hyperlipidemia (ICD-10 - E78.5) Learning About High Cholesterol material was published to portal Continue Rosuvastatin-- establish with PCP May, HTN (hypertension) (ICD-10 - I10) High Blood Pressure: Care Instructions material was published to portal Lisinopril-- continue BP good. ESTABLISH WITH PCP May, intermediate 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 insulin (ICD-10 - Z79.4) May, Persistent albuminuria (ICD-10 - R80.9) Failed Jardiance, Tolerating Farxiga, increase Lisinopril last visit and tolerating. CANNOT PRODUCE URINE SAMPLE tODAY, LAB ORDER SENT TO FOLLOWUP. If persistent albuminuria could consider nephrology. Discussed management of glycemia and high blood pressure to protect kidneys. May, Albuminuria (ICD-10 - R80.9) May, BMI 25.0-25.9,adult (ICD-10 - Z68.25) [facility] Other 10-25-2023 Evaluation note* Encounter Date Diagnosis Assessment Notes Treatment Notes Treatment Clinical Notes Feb, Albuminuria (ICD-10 - R80.9) [facility] Other 10-24-2023 Evaluation note* Encounter Date Diagnosis Assessment Notes Treatment Notes Treatment Clinical Notes Feb, Type 2 diabetes mellitus with hyperglycemia (ICD-10 - E11.65) ASSESSMENT: 1. Controlled a Type 2 diabetes with A1c of 6.4%, GMI 6.8% Goal < 7% with no lows_ _ achieved 2. A1c improvement, UMIC TODAY. GOOD CONTROL, needs to ESTAB WITH PCP per her's request due to insurance change. He should continue Lantus at 45 units once daily, lispro 1 unit for every 40 mg/dL above goal. Continue Farxiga 10 mg was p.o. daily. Increase Ozempic to 0.5 mg subcu weekly unless shortage she can maintain at 0.25 mg subcu weekly. Weight before escalation is 174.0 pounds. He should continue lisinopril. His blood pressure is under good control today bridging lisinopril until establishment with new primary care. Notes: Seen for an assessment of current glucose pattern, changes in treatment plan, counseling and coordination of care related to diabetes, risks, and benefits of treatment, medications, side effects. Given handouts to reinforce concepts reviewed during counseling, see scanned notes. TOPICS REVIEWED: 1. Time was spent reviewing: a. Basic concepts of diabetes, progressive beta cell , concepts of basal/bolus/corre ctive insulin requirements. Basal: The goal is fasting blood glucose of 90-130mg. IF fasting blood glucose starts to run under 100mg 3x's/ week, decrease dose by 10%. Bolus: The goal is to hold the blood glucose level steady meal to meal. If pt. is going to have increased physical activity after a meal, decrease the schedule meal dose prior to the activity by 30-50%. If pt. skips a meal do not take this dose. Correction: The goal is to correct an elevated glucose back into the 100-150mg range b. Nutrition: Concepts of healthy diet, encouraged to decrease saturated fat in diet and increase non-starchy vegetables and fruits in diet. BMI: Pt. needs to select one small change to decrease caloric intake or increase physical activity to help decrease weight. c. Correct treatment of hypoglycemia, carry a glucose source at all times on your person, in vehicles, and at bedside. Can use glucose tablets/4, four ounces of pop or juice equal to 15 G of carbohydrate. Blood glucose should be 100 mg/dl or higher when driving. d. ADA glucose goals for age and medical complexity reviewed e. Patient questions addressed 2. Activity/exercise : Encouraged to start any form of physical activity. Start low level and increase slowly to a minimal goal of 150 minutes/week. Limit activity to what is allowed by other issues such as cardiac, pulmonary or orthopedic restrictions. 3. Standards of care: Reminded to have an annual dilated eye exam, A1C every 3 months, urine testing for microalbumin once/year, check feet daily and report any cuts or sores that do not appear to be healing. 4. Meter: Plan to check blood glucose: Please check blood glucose levels 4 times/day. Back to back meals reveal effectiveness of bolus dosing. The blood glucose data is used to determine insulin doses and confirm symptoms for hypoglycemia and hyperglcyemia. 5. [facility] Contact office if any issues or concerns with patterns of hypoglycemia, hyperglycemia, or diabetes medication issues. 6. Prescriptions: Request refills for Lisinopri and Ozempic 02-27-2023. Feb, Vitamin D deficiency (ICD-10 - E55.9) Learning About Vitamin D material was published to portal Feb, Dietary counseling and surveillance (ICD-10 - Z71.3) Learning About Healthy Weight material was published to portal Feb, Hyperlipidemia (ICD-10 - E78.5) Learning About High Cholesterol material was published to portal Continue Rosuvastatin-- establish with PCP Feb, HTN (hypertension) (ICD-10 - I10) High Blood Pressure: Care Instructions material was published to portal Lisinopril-- continue BP good. 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 If cannot tolerate class medications or persistent albuminuria could consider nephrology. Repeat microalbuminuria after Farxiga. Discussed management of glycemia and high blood pressure to protect kidneys. Feb, BMI 26.0-26.9,adult (ICD-10 - Z68.26) Feb, Albuminuria (ICD-10 - R80.9) [facility] Other 08-15-2023 Evaluation note* Encounter Date Diagnosis Assessment Notes Treatment Notes Treatment Clinical Notes Dec, Vitamin D deficiency (ICD-10 - E55.9) Learning About Vitamin D material was published to portal Dec, Type 2 diabetes mellitus with hyperglycemia (ICD-10 - E11.65) ASSESSMENT: 1. Uncontrolled, a Type 2 diabetes with A1c of 7.0%, GMI 7.2% Goal < 7% with no lows 2. Escalate LA insulin 42 u at HS (now Lantus per insurance preferred). Maintain Humalog (vs aspart) at 1:40 corrective. Taking Ozempic 0.25 mg weekly. Weight down but normal BMI will hold at dose to assure no further untoward weight loss. Escalate Metforrmin to 2 in am i with dinner. BP elevated today, conserned for persistent proteinuria, GFR remains WNL. Already on SGLt2i. Will start Lisinopril 2.[address] daily[address] for Dr. Rodgers to take over and titrate for goal <130/80 to preserve kidney health. Notes: Seen for an assessment of current glucose pattern, changes in treatment plan, counseling and coordination of care related to diabetes, risks, and benefits of treatment, medications, side effects. Given handouts to reinforce concepts reviewed during counseling, see scanned notes. TOPICS REVIEWED: 1. Time was spent reviewing: a. Basic concepts of diabetes, progressive beta cell , concepts of basal/bolus/corre ctive insulin requirements. Basal: The goal is fasting blood glucose of 90-130mg. IF fasting blood glucose starts to run under 100mg 3x's/ week, decrease dose by 10%. Bolus: The goal is to hold the blood glucose level steady meal to meal. If pt. is going to have increased physical activity after a meal, decrease the schedule meal dose prior to the activity by 30-50%. If pt. skips a meal do not take this dose. Correction: The goal is to correct an elevated glucose back into the 100-150mg range b. Nutrition: Concepts of healthy diet, encouraged to decrease saturated fat in diet and increase non-starchy vegetables and fruits in diet. BMI: Pt. needs to select one small change to decrease caloric intake or increase physical activity to help decrease weight. c. Correct treatment of hypoglycemia, carry a glucose source at all times on your person, in vehicles, and at bedside. Can use glucose tablets/4, four ounces of pop or juice equal to 15 G of carbohydrate. Blood glucose should be 100 mg/dl or higher when driving. d. ADA glucose goals for age and medical complexity reviewed e. Patient questions addressed 2. Activity/exercise : Encouraged to start any form of physical activity. Start low level and increase slowly to a minimal goal of 150 minutes/week. Limit activity to what is allowed by other issues such as cardiac, pulmonary or orthopedic restrictions. 3. Standards of care: Reminded to have an annual dilated eye exam, A1C every 3 months, urine testing for microalbumin once/year, check feet daily and report any cuts or sores that do not appear to be healing. 4. Meter: Plan to check blood glucose: Please check blood glucose levels 4 times/day. Back to back meals reveal effectiveness of bolus dosing. The blood glucose data is used to determine insulin doses and confirm symptoms for hypoglycemia and hyperglcyemia. 5. [facility]. Contact office if any issues or concerns with patterns of hypoglycemia, hyperglycemia, or diabetes medication issues. 6. Prescriptions: none needed 10-03-2022. Dec, Dietary counseling and surveillance (ICD-10 - Z71.3) Learning About Healthy Weight material was published to portal Dec, Hyperlipidemia (ICD-10 - E78.5) Learning About High Cholesterol material was published to portal Encouraged to establish with primary care for preventative health Dec, HTN (hypertension) (ICD-10 - I10) High Blood Pressure: Care Instructions material was published to portal slightly above goal Dec, intermediate 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 insulin (ICD-10 - Z79.4) Dec, Persistent albuminuria (ICD-10 - R80.9) Failed Jardiance, will do trial of Farxiga. If cannot tolerate class medications or persistent albuminuria could consider nephrology. Repeat microalbuminuria after Farxiga. Discussed management of glycemia and high blood pressure to protect kidneys. Dec, BMI 27.0-27.9,adult (ICD-10 - Z68.27) [facility] Other 05-30-2023 Evaluation note* Encounter Date Diagnosis Assessment Notes Treatment Notes Treatment Clinical Notes September, Vitamin D deficiency (ICD-10 - E55.9) Learning About Vitamin D material was published to portal September, Type 2 diabetes mellitus with hyperglycemia (ICD-10 - E11.65) Jennifer Vera 10/03/2022 08:12:58 AM >BG 88 given 4 ozs juice Jennifer Vera 10/03/2022 08:27:56 AM >BG recheck 100 -- [facility] --dcs ASSESSMENT: 1. Uncontrolled, a Type 2 diabetes with A1c of 7.0%, GMI 7.2% Goal < 7% with no lows 2. Established with Dr. Rodgers-- now prescribing Rosuvastatin. Needs Eye exam, will schedule. We will start Ozempic 0.25 mg weekly with slow titration (weight loss not goal). He will continue Farxiga d/t microalbuminuria -- recheck upcoming. He will decrease LA insulin to 40 u once daily. SA insulin 1:40 correction only. He is experiencing product changes d/ t new medicare. Continue Metformin 500 mg BID. Will see him back in clinic in 8 weeks to assure optimization, tolerance of Ozempic and hopeful for lab review at that time. BP elevated, discussed goal <130/80 slightly elevated today-- he should review Bi Weekly to assure normalizing to assist with kidney health. Notes: Seen for an assessment of current glucose pattern, changes in treatment plan, counseling and coordination of care related to diabetes, risks, and benefits of treatment, medications, side effects. Given handouts to reinforce concepts reviewed during counseling, see scanned notes. TOPICS REVIEWED: 1. Time was spent reviewing: a. Basic concepts of diabetes, progressive beta cell , concepts of basal/bolus/correcti ve insulin requirements. Basal: The goal is fasting blood glucose of 90-130mg. IF fasting blood glucose starts to run under 100mg 3x's/ week, decrease dose by 10%. Bolus: The goal is to hold the blood glucose level steady meal to meal. If pt. is going to have increased physical activity after a meal, decrease the schedule meal dose prior to the activity by 30-50%. If pt. skips a meal do not take this dose. Correction: The goal is to correct an elevated glucose back into the 100-150mg range b. Nutrition: Concepts of healthy diet, encouraged to decrease saturated fat in diet and increase non-starchy vegetables and fruits in diet. BMI: Pt. needs to select one small change to decrease caloric intake or increase physical activity to help decrease weight. c. Correct treatment of hypoglycemia, carry a glucose source at all times on your person, in vehicles, and at bedside. Can use glucose tablets/4, four ounces of pop or juice equal to 15 G of carbohydrate. Blood glucose should be 100 mg/dl or higher when driving. d. ADA glucose goals for age and medical complexity reviewed e. Patient questions addressed 2. Activity/exercise: Encouraged to start any form of physical activity. Start low level and increase slowly to a minimal goal of 150 minutes/week. Limit activity to what is allowed by other issues such as cardiac, pulmonary or orthopedic restrictions. 3. Standards of care: Reminded to have an annual dilated eye exam, A1C every 3 months, urine testing for microalbumin once/year, check feet daily and report any cuts or sores that do not appear to be healing. 4. Meter: Plan to check blood glucose: Please check blood glucose levels 4 times/day. Back to back meals reveal effectiveness of bolus dosing. The blood glucose data is used to determine insulin doses and confirm symptoms for hypoglycemia and hyperglcyemia. 5. [facility]. Contact office if any issues or concerns with patterns of hypoglycemia, hyperglycemia, or diabetes medication issues. 6. Prescriptions: none needed 10-03-2022. 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 If cannot tolerate class medications or persistent albuminuria could consider nephrology. Repeat microalbuminuria after Farxiga. Discussed management of glycemia and high blood pressure to protect kidneys. September, BMI 27.0-27.9,adult (ICD-10 - Z68.27) [facility] Other 03-20-2023 Evaluation note* Encounter Date Diagnosis Assessment Notes Treatment Notes Treatment Clinical Notes Jul, Hyperlipidemia (ICD-10 - E78.5) will refill med and check labs today. Jul, Type 2 diabetes mellitus with hyperglycemia (ICD-10 - E11.65) Continued followup with diabetes clinic. Pt states he hasn't had an eye exam for 2 years - advised followup [facility] Other 02-22-2023 Evaluation note* Encounter Date Diagnosis Assessment Notes Treatment Notes Treatment Clinical Notes Jun, Vitamin D deficiency (ICD-10 - E55.9) Learning About Vitamin D material was published to portal Jun, Type 2 diabetes mellitus with hyperglycemia (ICD-10 - E11.65) ASSESSMENT: 1. Uncontrolled, a Type 2 diabetes with A1c of 7.5%, GMI 8.1 2. Discussion with patient regarding establishing with primary care for continuation of cholesterol treatment with rosuvastatin and BP treatment with lisinopril. He states he forgot after the last appointment and just found his [facility] PCP flyer. His is working on out reach. A1c with some improvement, GMI equivocal. Ultimate goal under 7% without lows. Systemically will continue at 45 units once daily. He will reduce this if he has increased control with the increase Farxiga. If a.m. blood glucose is under 100 3 of 7 days in a week. He, he will reduce Semglee by 4 units. He has a corrective scale of 1 unit for every 40 mg/dL above goal. He will continue metformin 500 mg ER 2 tabs with breakfast and supper. We will increase his Farxiga to 10 mg p.o. daily. He will notify us of any issues with urinary tract infection or yeast infection. We did discuss maintaining hydration and holding medication if he is at risk for dehydration. I have ordered urine microalbumin. He will get this test done soon. A1c improved but 2-week GMI increased to 8.1%. We will continue metformin 500 mg p.o. twice daily. He did not start Farxiga. We did download a co-pay card he will start on 5 mg, stay hydrated report any UTIs/yeast infections, we will recheck urine microalbumin creatinine ratio in 3 months. We did discuss the need for PCP to manage cholesterol and preventative treatments. . Notes: Seen for an assessment of current glucose pattern, changes in treatment plan, counseling and coordination of care related to diabetes, risks, and benefits of treatment, medications, side effects. Given handouts to reinforce concepts reviewed during counseling, see scanned notes. TOPICS REVIEWED: 1. Time was spent reviewing: a. Basic concepts of diabetes, progressive beta cell , concepts of basal/bolus/corre ctive insulin requirements. Basal: The goal is fasting blood glucose of 90-130mg. IF fasting blood glucose starts to run under 100mg 3x's/ week, decrease dose by 10%. Bolus: The goal is to hold the blood glucose level steady meal to meal. If pt. is going to have increased physical activity after a meal, decrease the schedule meal dose prior to the activity by 30-50%. If pt. skips a meal do not take this dose. Correction: The goal is to correct an elevated glucose back into the 100-150mg range b. Nutrition: Concepts of healthy diet, encouraged to decrease saturated fat in diet and increase non-starchy vegetables and fruits in diet. BMI: Pt. needs to select one small change to decrease caloric intake or increase physical activity to help decrease weight. c. Correct treatment of hypoglycemia, carry a glucose source at all times on your person, in vehicles, and at bedside. Can use glucose tablets/4, four ounces of pop or juice equal to 15 G of carbohydrate. Blood glucose should be 100 mg/dl or higher when driving. d. ADA glucose goals for age and medical complexity reviewed e. Patient questions addressed 2. Activity/exercise : Encouraged to start any form of physical activity. Start low level and increase slowly to a minimal goal of 150 minutes/week. Limit activity to what is allowed by other issues such as cardiac, pulmonary or orthopedic restrictions. 3. Standards of care: Reminded to have an annual dilated eye exam, A1C every 3 months, urine testing for microalbumin once/year, check feet daily and report any cuts or sores that do not appear to be healing. 4. Meter: Plan to check blood glucose: Please check blood glucose levels 4 times/day. Back to back meals reveal effectiveness of bolus dosing. The blood glucose data is used to determine insulin doses and confirm symptoms for hypoglycemia and hyperglcyemia. 5. [facility]. Contact office if any issues or concerns with patterns of hypoglycemia, hyperglycemia, or diabetes medication issues. 6. 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 If cannot tolerate class medications or persistent albuminuria could consider nephrology. Repeat microalbuminuria after Farxiga. Discussed management of glycemia and high blood pressure to protect kidneys. Jun, Other inital weigh t increase, now declining [facility] Other 02-13-2023 Evaluation note* Encounter Date Diagnosis Assessment Notes Treatment Notes Treatment Clinical Notes Jun, Type 2 diabetes mellitus with hyperglycemia (ICD-10 - E11.65) [facility] Other 12-30-2022 Evaluation note* Encounter Date Diagnosis Assessment Notes Treatment Notes Treatment Clinical Notes Apr, Vitamin D deficiency (ICD-10 - E55.9) Learning About Vitamin D material was published to portal Apr, Type 2 diabetes mellitus with hyperglycemia (ICD-10 - E11.65) ASSESSMENT: 1. Uncontrolled, a Type 2 diabetes with A1c of 7.5%, GMI 8.1 2. A1c improved but 2-week GMI increased to 8.1%. We will continue metformin 500 mg p.o. twice daily. He did not start Farxiga. We did download a co-pay card he will start on 5 mg, stay hydrated report any UTIs/yeast infections, we will recheck urine microalbumin creatinine ratio in 3 months. We did discuss the need for PCP to manage cholesterol and preventative treatments. [facility] physician group primary care provider flyer given. He will continue Semglee 45 units daily. If fasting glucose is less than 100 3 of 7 days/week he will decrease by 4 units. We did discuss use of Humalog 15 minutes before meal using corrective scale of 1 unit for every 40 mg/dL above goal. He will use insulin carb ratio of 1 unit for every 10 g of carbohydrates, this was soft but given to simplify as patient currently is not calculating and therefore under using prandial insulin. We will have patient present for download with community nutrition educator in 4 weeks and provider in 8 weeks. Notes: Seen for an assessment of current glucose pattern, changes in treatment plan, counseling and coordination of care related to diabetes, risks, and benefits of treatment, medications, side effects. Given handouts to reinforce concepts reviewed during counseling, see scanned notes. TOPICS REVIEWED: 1. Time was spent reviewing: a. Basic concepts of diabetes, progressive beta cell , concepts of basal/bolus/corre ctive insulin requirements. Basal: The goal is fasting blood glucose of 90-130mg. IF fasting blood glucose starts to run under 100mg 3x's/ week, decrease dose by 10%. Bolus: The goal is to hold the blood glucose level steady meal to meal. If pt. is going to have increased physical activity after a meal, decrease the schedule meal dose prior to the activity by 30-50%. If pt. skips a meal do not take this dose. Correction: The goal is to correct an elevated glucose back into the 100-150mg range b. Nutrition: Concepts of healthy diet, encouraged to decrease saturated fat in diet and increase non-starchy vegetables and fruits in diet. BMI: Pt. needs to select one small change to decrease caloric intake or increase physical activity to help decrease weight. c. Correct treatment of hypoglycemia, carry a glucose source at all times on your person, in vehicles, and at bedside. Can use glucose tablets/4, four ounces of pop or juice equal to 15 G of carbohydrate. Blood glucose should be 100 mg/dl or higher when driving. d. ADA glucose goals for age and medical complexity reviewed e. Patient questions addressed 2. Activity/exercise : Encouraged to start any form of physical activity. Start low level and increase slowly to a minimal goal of 150 minutes/week. Limit activity to what is allowed by other issues such as cardiac, pulmonary or orthopedic restrictions. 3. Standards of care: Reminded to have an annual dilated eye exam, A1C every 3 months, urine testing for microalbumin once/year, check feet daily and report any cuts or sores that do not appear to be healing. 4. Meter: Plan to check blood glucose: Please check blood glucose levels 4 times/day. Back to back meals reveal effectiveness of bolus dosing. The blood glucose data is used to determine insulin doses and confirm symptoms for hypoglycemia and hyperglcyemia. 5. [facility]. Contact office if any issues or concerns with patterns of hypoglycemia, hyperglycemia, or diabetes medication issues. 6. 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 If cannot tolerate class medications or persistent albuminuria could consider nephrology. Repeat microalbuminuria after Farxiga. Discussed management of glycemia and high blood pressure to protect kidneys. Apr, Other inital weigh t increase, now declining [facility] Other 09-30-2022 Evaluation note* Encounter Date Diagnosis Assessment Notes Treatment Notes Treatment Clinical Notes Jan, Vitamin D deficiency (ICD-10 - E55.9) Learning About Vitamin D material was published to portal Jan, Type 2 diabetes mellitus with hyperglycemia (ICD-10 - E11.65) ASSESSMENT: 1. Uncontrolled, a Type 2 diabetes with A1c of 7.7% 2. A1c improved but still above goal. Will maintain Semglee at 45 units subcu daily with Humalog corrective scale of 1: 40 AC 3 times daily and at bedtime half dose if greater than 200 mg/dL. Continue metformin 500mg BID. We will initiate Farxiga due to microalbuminuria, patient did not tolerate Jardiance due to dizziness, unclear if dizziness could have been related to hypoglycemia or blood pressure. I did educate patient on evaluation of dizziness if returns. Asked patient to call if any issues tolerating. I did send him with a coupon card for activation. She continue miladys. Encouraged calling [facility] for replacement of 2 sensors. We discussed decreasing Semglee of a.m. sugars start to run over 103 of 7 days in the week. He states understanding. We discussed escalating Semglee 22 units a week after starting Farxiga if blood glucose levels continue to remain above 130 all days in a week. I will see him back in clinic in 8 weeks to reevaluate. We will consider GLP-1 in the future would need to watch weight. Consider repeat C-peptide and autoantibodies with change in glycemic trends. Treatment considerations for albuminuria below 3. Patient is alert, oriented and receptive to making changes or counseling. Notes: Seen for an assessment of current glucose pattern, changes in treatment plan, counseling and coordination of care related to diabetes, risks, and benefits of treatment, medications, side effects. Given handouts to reinforce concepts reviewed during counseling, see scanned notes. TOPICS REVIEWED: 1. Time was spent reviewing: a. Basic concepts of diabetes, progressive beta cell , concepts of basal/bolus/correc tive insulin requirements. Basal: The goal is fasting blood glucose of 90-130mg. IF fasting blood glucose starts to run under 100mg 3x's/ week, decrease dose by 10%. Bolus: The goal is to hold the blood glucose level steady meal to meal. If pt. is going to have increased physical activity after a meal, decrease the schedule meal dose prior to the activity by 30-50%. If pt. skips a meal do not take this dose. Correction: The goal is to correct an elevated glucose back into the 100-150mg range b. Nutrition: Concepts of healthy diet, encouraged to decrease saturated fat in diet and increase non-starchy vegetables and fruits in diet. BMI: Pt. needs to select one small change to decrease caloric intake or increase physical activity to help decrease weight. c. Correct treatment of hypoglycemia, carry a glucose source at all times on your person, in vehicles, and at bedside. Can use glucose tablets/4, four ounces of pop or juice equal to 15 G of carbohydrate. Blood glucose should be 100 mg/dl or higher when driving. d. ADA glucose goals for age and medical complexity reviewed e. Patient questions addressed 2. Activity/exercise: Encouraged to start any form of physical activity. Start low level and increase slowly to a minimal goal of 150 minutes/week. Limit activity to what is allowed by other issues such as cardiac, pulmonary or orthopedic restrictions. 3. Standards of care: Reminded to have an annual dilated eye exam, A1C every 3 months, urine testing for microalbumin once/year, check feet daily and report any cuts or sores that do not appear to be healing. 4. Meter: Plan to check blood glucose: Please check blood glucose levels 4 times/day. Back to back meals reveal effectiveness of bolus dosing. The blood glucose data is used to determine insulin doses and confirm symptoms for hypoglycemia and hyperglcyemia. 5. [facility] Contact office if any issues or concerns with patterns of hypoglycemia, hyperglycemia, or diabetes medication issues. 6. 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 Failed Jardiance, will do trial of Farxiga. If cannot tolerate class medications or persistent albuminuria could consider nephrology. Repeat microalbuminuria after Farxiga on board, start date approximately 02/03/2022. Discussed management of glycemia and high blood pressure to protect kidneys. Jan, Other inital weigh t increase, now declining [facility] Other 07-18-2022 Evaluation note* Encounter Date Diagnosis Assessment Notes Treatment Notes Treatment Clinical Notes Nov, Type 2 diabetes mellitus with hyperglycemia (ICD-10 - E11.65) Nov, intermediate current us e of insulin (ICD-10 - Z79.4) [facility] Other 06-28-2022 Evaluation note* Encounter Date Diagnosis Assessment Notes Treatment Notes Treatment Clinical Notes Oct, Vitamin D deficiency (ICD-10 - E55.9) Learning About Vitamin D material was published to portal Oct, Type 2 diabetes mellitus with hyperglycemia (ICD-10 - E11.65) ASSESSMENT: 1. Uncontrolled, a Type 2 diabetes with A1c of 8.1% 2. Blood glucose continues to increase with an increase in A1c to 8.1. He has significant missed opportunities at coverage secondary to no scans, medical scans after 3 PM in the afternoon. We did strategize and set reminders. Patient at this juncture should continue Semglee 45 units in the evening decreasing by 4 units if he is trending under 100 for 3 of 7 days in a week. He should also consider increase if his a.m. blood glucose is greater than 153 of 7 days in a week by 1 unit. She continues Humalog 1 unit for every 7 carbs with all intake. He should continue corrective scale 1-30 Premeal and every 4 hours if not eating. We will start him on metformin 500 mg 2 tabs ultimately 2 times per day starting with 1 tab and adding 1 tab weekly till 2 and 2. We will consider GLP-1 in the future. He did not heart elevate Jardiance, we can consider other medications in this class at a later date. We will have him do labs prior to him starting metformin. Lab slip provided from July appointment. We will have him return to clinic in 6 weeks for download with community nutrition educator in 3 months with provider 3. Patient is alert, oriented and receptive to making changes or counseling. Notes: Seen for an assessment of current glucose pattern, changes in treatment plan, counseling and coordination of care related to diabetes, risks, and benefits of treatment, medications, side effects. Given handouts to reinforce concepts reviewed during counseling, see scanned notes. TOPICS REVIEWED: 1. Time was spent reviewing: a. Basic concepts of diabetes, progressive beta cell , concepts of basal/bolus/correc tive insulin requirements. Basal: The goal is fasting blood glucose of 90-130mg. IF fasting blood glucose starts to run under 100mg 3x's/ week, decrease dose by 10%. Bolus: The goal is to hold the blood glucose level steady meal to meal. If pt. is going to have increased physical activity after a meal, decrease the schedule meal dose prior to the activity by 30-50%. If pt. skips a meal do not take this dose. Correction: The goal is to correct an elevated glucose back into the 100-150mg range b. Nutrition: Concepts of healthy diet, encouraged to decrease saturated fat in diet and increase non-starchy vegetables and fruits in diet. BMI: Pt. needs to select one small change to decrease caloric intake or increase physical activity to help decrease weight. c. Correct treatment of hypoglycemia, carry a glucose source at all times on your person, in vehicles, and at bedside. Can use glucose tablets/4, four ounces of pop or juice equal to 15 G of carbohydrate. Blood glucose should be 100 mg/dl or higher when driving. d. ADA glucose goals for age and medical complexity reviewed e. Patient questions addressed 2. Activity/exercise: Encouraged to start any form of physical activity. Start low level and increase slowly to a minimal goal of 150 minutes/week. Limit activity to what is allowed by other issues such as cardiac, pulmonary or orthopedic restrictions. 3. Standards of care: Reminded to have an annual dilated eye exam, A1C every 3 months, urine testing for microalbumin once/year, check feet daily and report any cuts or sores that do not appear to be healing. 4. Meter: Plan to check blood glucose: Please check blood glucose levels 4 times/day. Back to back meals reveal effectiveness of bolus dosing. The blood glucose data is used to determine insulin doses and confirm symptoms for hypoglycemia and hyperglcyemia. 5. [facility]. Contact office if any issues or concerns with patterns of hypoglycemia, hyperglycemia, or diabetes medication issues. 6. 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 Uncontrolled, a Type 2 diabetes with A1c of 8.0% 2. Blood glucose above target as evidenced by increase in hemoglobin A1c to 8.0 from 7.0. We discussed goal of A1c under 7%. Patient to start Jardiance 10 mg p.o. daily. He understands need to avoid dehydration, stop medication for any planned events where he will have decreased intake such as surgery. Patient shows consistent blood glucose checks when reminders are present. We will increase this. 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 He will request a new hammer mill operator from [employer]. We also discussed using cell phone as reader. He will ask his children for assistance with this since it will need to be done with next sensor placement. Patient is now on simply, he will continue 45 units every evening at 10 PM. We discussed if blood glucose was running under 100 for 3 of 7 days in the week they will decrease his bedtime dose by 10% or 4 units. We also discussed if morning sugars are running greater than 133 days in a week he can increase dose by 1 unit. Decreased need of Humalog 1-40 insulin sliding scale shows basal dose optimization. He is to start Jardiance and monitor blood glucose to assure no need for reduction. We can consider GLP-1 in the future. He appears to have some prandial elevations. We will check labs including a C-peptide based on patient's morphology. Patient is transitioning from previous PCP. He is given information regarding [facility] physicians to include Dr. Vela who may be geographically desirable. I did send him with written to do list 1 call [employer] for replacement of hammer mill operator. To download qualifyor matthew on cell phone for next sensor if desired 3 call and establish with new PCP. Reports understanding and amenable too treatment plan 3. Patient is alert, oriented and receptive to making changes or counseling. Notes: Seen for an assessment of current glucose pattern, changes in treatment plan, counseling and coordination of care related to diabetes, risks, and benefits of treatment, medications, side effects. Given handouts to reinforce concepts reviewed during counseling, see scanned notes. TOPICS REVIEWED: 1. Time was spent reviewing: a. Basic concepts of diabetes, progressive beta cell , concepts of basal/bolus/correct marcio insulin requirements. Basal: The goal is fasting blood glucose of 90-130mg. IF fasting blood glucose starts to run under 100mg 3x's/ week, decrease dose by 10%. Bolus: The goal is to hold the blood glucose level steady meal to meal. If pt. is going to have increased physical activity after a meal, decrease the schedule meal dose prior to the activity by 30-50%. If pt. skips a meal do not take this dose. Correction: The goal is to correct an elevated glucose back into the 100-150mg range b. Nutrition: Concepts of healthy diet, encouraged to decrease saturated fat in diet and increase non-starchy vegetables and fruits in diet. BMI: Pt. needs to select one small change to decrease caloric intake or increase physical activity to help decrease weight. c. Correct treatment of hypoglycemia, carry a glucose source at all times on your person, in vehicles, and at bedside. Can use glucose tablets/4, four ounces of pop or juice equal to 15 G of carbohydrate. Blood glucose should be 100 mg/dl or higher when driving. d. ADA glucose goals for age and medical complexity reviewed e. Patient questions addressed 2. Activity/exercise: Encouraged to start any form of physical activity. Start low level and increase slowly to a minimal goal of 150 minutes/week. Limit activity to what is allowed by other issues such as cardiac, pulmonary or orthopedic restrictions. 3. Standards of care: Reminded to have an annual dilated eye exam, A1C every 3 months, urine testing for microalbumin once/year, check feet daily and report any cuts or sores that do not appear to be healing. 4. Meter: Plan to check blood glucose: Please check blood glucose levels 4 times/day. Back to back meals reveal effectiveness of bolus dosing. The blood glucose data is used to determine insulin doses and confirm symptoms for hypoglycemia and hyperglcyemia. 5. [facility] Contact office if any issues or concerns with patterns of hypoglycemia, hyperglycemia, or diabetes medication issues. 6. 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) Jul, BMI 27.0-27.9,adult (ICD-10 - Z68.27) Jul, Other inital weigh t increase, now declining [place] [employer] Other Chief complaint+Reason for visit Narrative* Chief Complaint DMN f/u-METER Reason for Visit BMI 25.0-25.9,adult Dietary counseling and surveillance HTN (hypertension) Hyperlipidemia 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 Persistent albuminuria Type 2 diabetes mellitus with hyperglycemia Vitamin D deficiency [facility] Work Phone: Evaluation noteNo InformationNort [employer] Other Evaluation noteNo assessment information available [facility] Work Phone: Evaluation note* Diagnosis Onset Date Resolution Status BMI 25.0-25.9,adult acute Dietary counseling and surveillance acute HTN (hypertension) acute Hyperlipidemia acute intermediate 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 insulin acute Persistent albuminuria acute Type 2 diabetes mellitus with hyperglycemia acute Vitamin D deficiency acute [facility] Work Phone: Evaluation note* Diagnosis Neuralgia- Primary Unspecified neuralgia, neuritis, and radiculitis DDD (degenerative disc disease), cervical Degeneration of cervical intervertebral disc documented in this encounter [facility] N[facility]ative - Reported* Type Description Date Medical History Herpes zoster dermatitis Medical History Abscess, lip- PICC line prolonge d ABX 2016 Medical History Neck sprain, strain Medical History Hypertension, controlled Medical History Hyperlipidemia Medical History Diabetes, type 2 Medical History Hx of Covid 19 (04/2020) Surgical History PICC LINE 2017 Hospitalization History ICU In [facility] f or 8-10 days 2016 [facility] Other Reason for referral (narrative)* Reason Nail deformity, Type II Diabetes Referral sent , patient informed Diagnosis 1 Type 2 diabetes reji itus with hyperglycemia (E11.65) Diagnosis 2 Nail deformity (L60. 8) Referral Organization [facility] Referring Provider First Name Yolette Referring Provider Last Name Gabby Referring Provider Specialty Nurse Pract itioner Referred Organization [facility] Referred Provider STEVEN AHMADI Referred Address ,[place], [place],[address] Referred Provider Specialty Podiatry - S urgical Chiropody Referral Priority Routine General Notes Yolette Benavides 06/08 09:03:14 AM > Per Nelia at Dr Montse office once referral is received she will call patient for matthewtJennifer Deborah 06/30/2022 09:23:23 AM > Referral faxed, for some reason last office note did not attach so I did fax the last office note seperatly thru our free standing office fax. and informed Yolette Avitia 06/30/2022 09:30:52 AM >Patient informed, and given Dr Montes phone number in case he doesn't hear from them. Clinical Notes Dr Steven Ahmadi# [phone] [facility] Other Summary Purpose Family History No Family History Records Found Relationship Condition Age at Onset Recorded Date/T wilber brother Diabetes mellitus Unknown father Malignant neoplasm Unknown Unknown Not Specified Unknown Diabetes mellitus Unknown Relationship Condition Age at Onset Recorded Date/T wilber brother Diabetes mellitus Unknown father Malignant neoplasm Unknown Unknown mother Unknown Diabetes mellitus Unknown Advance Directives No Advanced Directives Records Found Advance Directive Response Recorded Date/ Time Advance Directives No June 9:22am Advance Directive Response Recorded Date/ Time Advance Directives No June 10:22am Chief Complaint and Reason for Visit Chief Complaint Dm DM Chief 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 Chief Complaint Admit Date DMN f/u / meter April 23, 2024 8:54am 8 week-DMN f/u / meter June 18 8:25am Reason for Visit Admit Date BMI 25.0-25.9,adult April 23, 2024 8:54am Dietary counseling and surveillance Dece mber 2023 8:54am HTN (hypertension) April 23, 2024 8:54am Hyperlipidemia April 23, 2024 8:54am intermediate 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 insulin Decembe r 2023 8:54am Persistent albuminuria April 23 8:54am Type 2 diabetes mellitus with hyperglyce samir April 23, 2024 8:54am Vitamin D deficiency April 23, 2024 8:54am BMI 25.0-25.9,adult June 18, 2024 8:25am Dietary counseling and surveillance Febr uary 2024 8:25am HTN (hypertension) June 18, 2024 8:25am Hyperlipidemia June 18, 2024 8:25am intermediate 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 insulin Februar y 2024 8:25am Persistent albuminuria June 18 8:25am Type 2 diabetes mellitus with hyperglyce samir June 18, 2024 8:25am Vitamin D deficiency June 18, 2024 8:25am Chief Complaint Admit Date DMN f/u / meter April 23, 2024 8:54am 8 week-DMN f/u / meter June 18 8:25am E55.9 E11.65 R80.9 E78.5 I10 June 182024 9:52am Additional Source Comments (unrecognized sect ion and content) No Status Records FoundNo Status Records FoundNo Status Records Found INFORMATION SOURCE (unrecogn ized section and content) DATE CREATED AUTHOR 04/12/2020 [facility] DATE CREATED AUTHOR AUTHOR'S ORGANIZ ATION 04/07/[address] [facility] EPIC DATE CREATED AUTHOR AUTHOR'S ORGANIZ ATION 07/01/2024 [facility] REASON FOR VISIT (unrecogniz ed section and content) DS Refill needed Rouvastatin DS LabsDM follow up, Type 2 IDDM, Discuss UMIC, NO DIABETIC RETINOPATHYDS Miladys 2 ReaderDS DM patient cancelled 2DM follow up, Type 2 IDDM, Discuss [facility]MIC, FCCC Visit CodesDS Semglee refillAppointment needDM follow up, Type 2 IDDM, Discuss UMICDS patient cancelled has a cold [id number] follow up, Type 2 IDDM, Discuss [facility]MIC, FCCC Visit CodesDS refill requestResponding to eRX2 month Follow up, DM follow up, Type 2 IDDM, Discuss [facility]MIC, FCCC Visit CodesDS LisproDiabetes Check Up-Has Not been seen in awhileDS Diabetic eye examDM 3 month F/U, Type 2 IDDM, Discuss UMIC, Diabetic eye exam [id number] rxDM, Discuss UMIC, Diabetic eye exam [id number] UMIC, Diabetic eye exam [id number] RESULTs/ LisinoprilDS Podiatry referral FYIDM, Discuss UMIC, Diabetic eye exam [id number] Fiasp from Humalog Care Teams (unrecognized sec tion and content) Team Status: Active Member Role Status Dates Le Rodgers MD Primary Care Provider Active Team Status: Inactive Member Role Status Dates Yolette Pierre APRN Attending Provider Active Start: June 05, 2023 End: June 05, 2023 Team Status: Inactive Member Role Status Dates Yolette Pierre APRN Active Star t: June 05, 2023 End: June 05, 2023 Le Rodgers MD Primary Care Provider Active Start: June 05, 2023 End: June 05, 2023 Yolette Pierre APRN Attending Provider Active Start: June 05, 2023 End: June 05, 2023 Team Status: Inactive Member Role Status Dates Le Rodgers MD Primary Care Provider Active Start: September 10, 2023 End: September 10, 2023 Yolette Pierre APRN Attending Provider Active Start: September 10, 2023 End: September 10, 2023 Team Status: Inactive Member Role Status Dates Le Rodgers MD Primary Care Provider Active Start: January 21, 2024 End: January 21, 2024 Yolette Pierre APRN Attending Provider Active Start: January 21, 2024 End: January 21, 2024 Sheet Metal Journeyman Relationship Specialty Start Date End Date Melanie Daley DO [address] [phone] Referring Physician Neurology 04/07/24 Leticia Blanco NP [address] [id number] Nurse Practitioner Neurology 04/07/24 Suzanna Ybarra NP [address] [phone] Nurse Practitioner Neurology 04/07/24 Team Status: Active Member Role Status Dates NON STAFF Primary Care Provider Active Team Status: Inactive Member Role Status Dates Le Rodgers MD Primary Care Provider Active Start: April 23, 2024 End: April 23, 2024 Yolette Pierre APRN Attending Provider Active Start: April 23, 2024 End: April 23, 2024 Team Status: Inactive Member Role Status Dates Yolette Pierre APRN Attending Provider Active Start: June 18, 2024 End: June 18, 2024 NON STAFF Primary Care Provider Active Start: June 18, 2024 End: June 18, 2024 Team Status: Active Member Role Status Dates FREDI Salinas Primary Care Provider Active Team Status: Inactive Member Role Status Dates Yolette Pierre APRN Attending Provider Active Start: June 18, 2024 End: June 18, 2024 Goals (unrecognized section and content) Goals may be documented in a n alternate section FOR RECORDS PERTAINING TO PATIENTS WHO ARE OR HAVE BEEN ENROLLED IN A CHEMICAL DEPENDENCY/SUBSTANCEABUSE PROGRAM, SOME INFORMATION MAY BE OMITTED. This clinical summary was aggregated from multiple sources. Caution should be exercised in using it in the provision of clinical care. This summary normalizes information from multiple sources, and as a consequence, information in this document may materially change the coding, format and clinical context of patient data. In addition, data may be omitted in some cases. CLINICAL DECISIONS SHOULD BE BASED ON THE PRIMARY CLINICAL RECORDS. [facility] [employer] [facility]. provides no warranty or guarantee of the accuracy or completeness of information in this document.
--- NOTE | 2024-09-20 12:02 | PC.NURSE ---
Right great toe nail missing, surrounding skin is black with sloughing skin surrounding.
--- NOTE | 2024-09-20 12:17 | ED.LOWEXI1 ---
HPI HPI - Extremity Injury (Lower) General Chief Complaint: Extremity Injury, Lower Stated Complaint: RT FOOT BIG TOE NAIL FELL OFF Time Seen by Provider: 09/20/24 12:00 Mode of arrival: walk-in History of Present Illness HPI Narrative: The patient is coming to the ER with almost 2 weeks history of right big toe problem his right foot, the patient is diabetic he does not have any feeling in his lower extremity, he is coming because he thinks there is a drainage and foul smell coming from his foot and he is concerned about infection, he denies any fever chills or any pain Upon arrival it noted that the patient have a dry gangrene of his right big toe and there is erythema also believe the right foot going up to the mid tibia Related Data Home Medications ?Medication ?Instructions ?Recorded ?Confirmed dapagliflozin propanediol 10 mg 10 mg PO DAILY 02/28/24 09/20/24 tablet (Farxiga) insulin aspart 1 sliding scale dose subcut DAILY 02/28/24 09/20/24 (niacinamide)(U-100) 100 unit/mL(3 mL) subcutaneous pen (Fiasp FlexTouch U-100 Insulin) lisinopril 5 mg tablet 5 mg PO DAILY 02/28/24 09/20/24 metformin 500 mg tablet,extended 1,000 mg PO DAILY 02/28/24 09/20/24 release 24 hr rosuvastatin 40 mg tablet 40 mg PO DAILY 02/28/24 09/20/24 semaglutide 0.25 mg or 0.5 mg (2 0.5 mg subcut .weekly 02/28/24 09/20/24 mg/3 mL) subcutaneous pen injector (Ozempic) Allergies Allergy/AdvReac Type Severity Reaction Status Date / Time No Known Drug Allergies Allergy Verified 09/20/24 11:54 Opioid HPI Opioid Management Most Recent Pain and Opioid Data: Last Pain Scale 2 02/28/24, 11:29 Review of Systems ROS Status of ROS 10 or more systems reviewed and unremarkable except as noted in history and below [facility] Medical History (Updated 09/20/24 @ 14:45 by Krys Hummel MD) High cholesterol ?E78.00 - Pure hypercholesterolemia, unspecified (ICD-10) Diabetes ?E11.9 - Type 2 diabetes mellitus without complications (ICD-10) Hypertension ?I10 - Essential (primary) hypertension (ICD-10) Social History Little interest or pleasure in doing things: not at all Feeling down, depressed, or hopeless: not at all Exam Narrative Exam Narrative: Nurses notes and vital signs reviewed and patient is not hypoxic. General: Well-appearing and in no apparent distress. Skin: Warm, dry, no pallor noted. No rash. Head: Normocephalic, atraumatic. Neck: Supple, non-tender. Cardiovascular: Regular Rate and Rhythm without murmur, gallop or rub. Respiratory: No accessory muscle use or respiratory distress. Lungs are clear to auscultation, no wheezing, rales or rhonchi Chest Wall: no tenderness Back: No midline thoracic or lumbar vertebral tenderness. No CVA tenderness Musculoskeletal right foot examination: The patient have a anterior tibial pulse that is normal, the patient have a dark skin in the right side compared to the left which is concerning for possible erythema and infection, there is a foul smell coming from the right big toe and the patient have an obvious dry gangrene of the distal phalanx of the right big toe, and the skin is around it obviously showing serous drainage falling out, mild edema in the right foot dorsum. GI: Abdomen is soft, non-distended. Normal bowel sounds. No masses appreciated. No tenderness to palpation. No rebound, guarding, or rigidity noted. Neurological: A&O x4. No cranial nerve dysfunction observed. Constitutional Vital Signs, click to edit/add: Last Vital Signs Temp 97.7 F 09/20/24 11:57 Pulse 98 H 09/20/24 11:57 Resp 20 09/20/24 11:57 BP 121/76 09/20/24 11:57 Pulse Ox 97 09/20/24 11:57 O2 Del Method Room Air 09/20/24 11:57 Course Vital Signs Vital signs: Vital Signs Temperature 97.7 F 09/20/24 11:57 Pulse Rate 98 H 09/20/24 11:57 Respiratory Rate 20 09/20/24 11:57 Blood Pressure 121/76 09/20/24 11:57 Pulse Oximetry 97 09/20/24 11:57 Oxygen Delivery Method Room Air 09/20/24 11:57 Temperature 97.7 F 09/20/24 11:57 Pulse Rate 98 H 09/20/24 11:57 Respiratory Rate 20 09/20/24 11:57 Blood Pressure 121/76 09/20/24 11:57 Pulse Oximetry 97 09/20/24 11:57 Oxygen Delivery Method Room Air 09/20/24 11:57 MDM - Extremity Injury (Lower) MDM Narrative Medical decision making narrative: Upon arrival it is concerning that the patient is having dry gangrene with possible underlying osteomyelitis This was confirmed with x-ray and the blood workup showing elevated white blood cell The patient right now there is a concern of osteomyelitis in addition to cellulitis of the right foot I did discuss the case with Dr. Spears and he recommended the patient to be admitted with IV antibiotics Patient was started on vancomycin and Zosyn Patient case discussed with and he agreed with above-mentioned plan Discharge Plan Discharge Chief Complaint: Extremity Injury, Lower Clinical Impression: Acute osteomyelitis of toe of right foot, Dry gangrene, Cellulitis of all toes of right foot Patient Disposition: Admitted As Inpatient
--- NOTE | 2024-09-20 12:32 | PC.NURSE ---
Wound to right great toe cleansed with Hibicleanse and covered with xeroform and wrapped in kerlex and secured with jorge wrap. Post op shoe ordered.
[2024-09-20 12:38] LABS: Basophils Absolute Auto 0.1 10^3/uL (0.0-0.1); Basophils Percent Auto 0.8 % (0.2-2.0); Hematocrit 41.1 % (42.0-54.0); Immature Granulocytes Abs Auto 0.04 10^3/uL (0.00-0.03); Immature Granulocytes Pct Auto 0.3 % (0.0-0.5); Lymphocytes Absolute Auto 1.9 10^3/uL (1.2-3.8); Lymphocytes Percent Auto 15.9 % (20.5-60.0); Mean Corpuscular HGB Conc 34.1 g/dL (29.9-35.2); Mean Corpuscular Hemoglobin 30.8 pg (25.9-34.0); Mean Corpuscular Volume 90.5 fL (80.0-94.0); Mean Platelet Volume 9.5 fL (9.5-13.5); Monocytes Absolute Auto 1.4 10^3/uL (0.3-0.8); Monocytes Percent Auto 12.1 % (1.7-12.0); Neutrophils Absolute Auto 8.5 10^3/uL (1.4-6.5); Neutrophils Percent Auto 70.9 % (43.0-75.0); Platelet Count 401 10^3/uL (150-450); Red Blood Count 4.54 10^6/uL (4.70-6.10); Red Cell Distribution Width 11.2 % (11.0-15.0); White Blood Count 11.9 10^3/uL (4.0-11.0)
[2024-09-20 12:43] LABS: Erythrocyte Sedimentation Rate >130 mm/hr (<=20)
[2024-09-20 12:56] LABS: Alanine Aminotransferase 25 U/L (16-63); Albumin Globulin Ratio 0.4; Albumin Level 2.4 g/dL (3.4-5.0); Alkaline Phosphatase 101 U/L (46-116); Anion Gap 9.4; Aspartate Amino Transferase 28 U/L (15-37); BUN Creatinine Ratio 13.1; Bilirubin Total 0.7 mg/dL (0.2-1.0); C Reactive Protein 6.32 mg/dL (<=0.50); Calcium 9.6 mg/dL (8.5-10.1); Carbon Dioxide 28.1 mmol/L (21.0-32.0); Chloride 99 mmol/L (98-107); Estimated GFR (African America >60 (>=60 mL/min/1.73m^2); Estimated GFR (Non-African Ame 52 (>=60 mL/min/1.73m^2); Globulin 6.6 g/dL; Glucose 130 mg/dL (74-106); Potassium 4.5 mmol/L (3.5-5.1); Sodium 132 mmol/L (136-145)
[2024-09-20] MEDS: PIPERACILLIN SODIUM/TAZOBACTAM 4.5 GM in 0.9 % SODIUM CHLORIDE 50 ML IV (14:39)
[2024-09-20] MEDS: VANCOMYCIN HCL 1,250 MG in 0.9 % SODIUM CHLORIDE 250 ML 250 MG IV (15:13)
[2024-09-20 16:05] VITALS: BP 144/87; PULSE 83; TEMP 36.6; O2SAT 97; BMI 25.1
--- OUTSIDE RECORDS SUMMARY | 2024-09-20 16:06 | XMS_ITS | CCD ---
Author Organization [facility] Care Team Providers Care Taper Operator Name Role Phone MARCEL PAIZ Attending Unavailable STEVEN WAN Consulting Unavailable LE RODGERS Primary Care Unavailable MARCEL PAIZ Admitting Unavailable MARCEL PAIZ Consulting Unavailable Yolette Pierre Unavailable Le Rodgers Unavailable MD Le Rodgers Primary Care Provider TIFFANIE Pierre Attending Provider Unavailable Primary Care Provider UnavailMelanie Hale DO Unavailable [phone] Francis COATER OPERATOR, Leticia Unavailable Tate COATER OPERATOR, Suzanna Unavailable MELANIE DALEY Attending Unavailable Yolette [...] 90 days COPAY CARD Active Blood-Glucose Meter ([employer] h Ultra2 Meter) [facility] (4 sources) Start: 06-18-2024 Blood-Glucose Meter (Onetouch Ultra2 Meter) [facility] Active 0 .Route 1 June 18, 2024 9:07am As directed test blood sugar three times daily Start: 06-18-2024 End: 06-18-2024 Blood-Glucose Meter (Onetouc h Ultra2 Meter) [facility] Discontinued 0 .Route June 18, 2024 12:00am June 18, 2024 9:08am As directed cholecalciferol 0.05 mg oral capsule (11 sources) Vitamin D Start: 09-05-2023 take 1 capsule by mouth once daily Cholecalciferol (Vitamin D3) 50 mcg (2,000 unit) capsule Active 100 MCG PO Daily September 04, 2023 11:00pm Start: 12-19-2022 [facility] Cholecalciferol 1.25 MG (36822 UT) 1 capsule Orally weekly for 56 days Then D3 OtC 4000 UT daily Dec, Active take 1 capsule by [facility] Cholecalciferol 100 MCG (4000 UT) 1 capsule Orally weekly for 56 days Then D3 OtC 4000 UT daily Active take 1 capsule by mo [facility] Cholecalciferol 1.25 MG (97024 UT) 1 capsule Orally weekly for 56 days Then D3 OtC 4000 UT daily Active empagliflozin 10 mg oral tablet (5 sources) Sodium-Glucose Cotransporter 2 Inhibitor take 1 tablet by mouth every twenty-four hours Jardiance 10 MG 1 tablet Orally Once a day for 90 day(s) patient has coupon card Active Flash Glucose Scanning [place] (Freestyle Miladys 2 [place]) [facility] (8 sources) Start: 09-07-19 Flash Glucose Scanning [place] (Freestyle Miladys 2 [place]) [facility] Active 0 .MEDSUPPLY September 07, 2023 12:58pm As directed to monitor blood sugar Start: 09-07-2023 Flash Glucose Scanning [place] (Freestyle Miladys 2 [place]) [facility] Active 0 .MEDSUPPLY September 07, 2023 1:58pm As directed to monitor blood sugar Start: 09-07-2023 End: 09-07-2023 Flash Glucose Scanning [place] r (Freestyle Miladys 2 [place]) [facility] Discontinued 0 .MEDSUPPLY September 06, 2023 11:00pm September 07, 2023 1:01pm As directed Start: 09-07-2023 End: 09-07-2023 Flash Glucose Scanning Reade r (Freestyle Miladys 2 [place]) misc Discontinued 0 .MEDSUPPLY September 07, 2023 12:00am September 07, 2023 2:01pm As directed Flash Glucose Sensor (Freest yle Miladys 2 Sensor) kit (10 sources) Start: 06-18-2024 Flash Glucose Sensor (Freestyle Miladys 2 Sensor) kit [facility] June 18, 2024 8:51am As directed Change every 14 Days Start: 03-24-2024 End: 06-18-2024 Flash Glucose Sensor (Freest yle Miladys 2 Sensor) kit Discontinued 0 KIT .[facility] March 24, 2024 9:37am June 18, 2024 8:51am As directed Change every 14 Days Start: 03-24-2024 End: 03-24-2024 Flash Glucose Sensor (Freest yle Miladys 2 Sensor) kit Discontinued 0 KIT .[facility] March 24, 2024 12:00am March 24, 2024 9:37am As directed Change every 14 Days Start: 09-05-2023 End: 03-24-2024 Flash Glucose Sensor (Freest yle Miladys 2 Sensor) kit Discontinued EACH .[facility] September 04, 2023 11:00pm March 24, 2024 9:36am As directed Start: 09-05-2023 Flash Glucose Sensor (Freestyle Miladys 2 Sensor) kit Active EACH .ROUTE .[facility] September 05, 2023 12:00am As directed FreeStyle Miladys 2 [place] - (20 sources) Start: 08-24-2021 FreeStyle Libr e 2 [place] - as directed SQ 5 x day [...] Semglee 100 UNIT/ML 45 units Subcutaneou s [facility] insurance changed from Lantus to Semglee Active [...] Resolved: 11-01-2021 Chronic Other aftercare (16 sources) USP (current) use of insulin; Translations: [Long-term (current) use of insulin] Onset: 04-12-2020 Resolved: 11-21-2021 Episodic Other aftercare (20 sources) Long-term 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 insulin; Translations: [USP (current) use of insulin] 09-05-2023 Episodic Other [...] Creatinine (U) [Mass/Vol] Creatinine [Mass/volume] in Urine [facility] Comment on above: No reference range e stablished MicroAlb Creat Ratio,Uon Albumin DL <= 20 mg/L (U) [Mass/Vol] mg/dL High 0.0-1.8 [facility] Comment on above: Performed By: #### U RMACRERAT #### [facility] [address] Creatinine, Urine (Random) 123.00 mg/dL Normal [facility] Comment on above: Result Comment: No r eference range established Performed By: #### U RMACRERAT #### [facility] [address] Microalbumin/Creat inine Ratio Not performed Normal 0.0-30.0 [facility] Comment on above: Result Comment: PERF ORMED BY: [place] [address] PATHOLOGIST BAND TEACHER TAWANA BONILLA M.D. Performed By: #### U RMACRERAT #### [facility] [address] Microalbumin [Mass/volume] i n UrineOrdered By: Yolette Pierre on 06-18-2024 Albumin DL <= 20 mg/L (U) [Mass/Vol] Microalbumin [Mass/volume] in Urine High 0.0-1.8 [facility] Urine microalbumin/creatinin e mass ratioOrdered By: Yolette Pierre on 06-18-2024 Albumin/Creatinine DL <= 20 mg/L (U) [Mass ratio] Urine microalbumin/creatinin e mass ratio [facility] Comment on above: Test not performed HbA1c HPLC (Bld) [Mass fract ion]on 04-23-2024 HbA1c (Bld) [Mass fraction] Hemoglobin A1c/Hemoglobin.total in Blood by HPLC [facility] No Panel Informationon 04-23 Bedside Glucose 110 [facility] HbA1c HPLC (Bld) [Mass fract ion]on 09-10-2023 HbA1c (Bld) [Mass fraction] 6.4 % [facility] No Panel Informationon 09-09 Bedside Glucose 126 [facility] A1C HEMOGLOBINon 06-05-2023 HbA1c (Bld) [Mass fraction] 6.9 % [facility] Other Glucose - FINGER STICKon Glucose [Mass/Vol] 132 mg/dL [facility] Other HbA1c (Bld) [Mass fraction]o n 06-05-2023 A1C HEMOGLOBIN [facility] Other A1C HEMOGLOBINon 02-27-2023 HbA1c (Bld) [Mass fraction] 6.4 % [facility] Other Creatinine [Mass/volume] in UrineOrdered By: Yolette Pierre on 02-27-2023 Creatinine (U) [Mass/Vol] 89.0 mg/dL 14.0-26.0 [facility] Glucose - FINGER STICKon Glucose [Mass/Vol] 132 mg/dL [facility] Other HbA1c (Bld) [Mass fraction]o n 02-27-2023 A1C HEMOGLOBIN [facility] Other MicroAlb Creat Ratio,Uon Creatinine (U) [Mass/Vol] 89.8659273 mg/dL High 14.0-26.0 mg/dL [facility] Other MicroAlb Creat Ratio,UOrdere d By: Yolette Pierre on 02-27-2023 Albumin DL <= 20 mg/L (U) [Mass/Vol] mg/dL 0.0-1.8 [facility] Albumin/Creatinine DL <= 20 mg/L (U) [Mass ratio] TNP [facility] Comment on above: Test not performed Glucose - FINGER STICKon Glucose [Mass/Vol] 160 mg/dL [facility] Other A1C HEMOGLOBINon 10-03-2022 HbA1c (Bld) [Mass fraction] 7.0 % [facility] Other Glucose - FINGER STICKon Glucose [Mass/Vol] 88 mg/dL [facility] Other HbA1c (Bld) [Mass fraction]o n 10-03-2022 A1C HEMOGLOBIN [facility] Other Glucose - FINGER STICKon Glucose [Mass/Vol] 137 mg/dL [facility] Other A1C HEMOGLOBINon 05-05-2022 HbA1c (Bld) [Mass fraction] 7.5 % [facility] Other Glucose - FINGER STICKon Glucose [Mass/Vol] 199 mg/dL [facility] Other HbA1c (Bld) [Mass fraction]o n 05-05-2022 A1C HEMOGLOBIN [facility] Other A1C HEMOGLOBINon 02-03-2022 HbA1c (Bld) [Mass fraction] 7.7 % [facility] Other Glucose - FINGER STICKon Glucose - FINGER STICK [facility] Other A1C HEMOGLOBINon 11-01-2021 HbA1c (Bld) [Mass fraction] 8.1 % [facility] Other Glucose - FINGER STICKon Glucose [Mass/Vol] 232 mg/dL [facility] Other HbA1c (Bld) [Mass fraction]o n 11-01-2021 A1C HEMOGLOBIN [facility] Other A1C HEMOGLOBINon 07-20-2021 HbA1c (Bld) [Mass fraction] 8.0 % [facility] Other Glucose - FINGER STICKon Glucose [Mass/Vol] 159 mg/dL [facility] Other HbA1c (Bld) [Mass fraction]o n 07-20-2021 A1C HEMOGLOBIN [facility] Other ACETONE SERUMon 04-08-2020 ACETONE SMALL Normal NEGATIVE [facility] Comment on above: Performed By: #### A CETON ####[facility] [address] [place], [place] [address]Ggfcwh Brii BNPon 04-08-2020 Natriuretic peptide B (Bld) [Mass/Vol] 72.0 pg/mL Normal <=900.0 [facility] Comment on above: Performed By: #### C MP, TSH, TROP, BNP #### [facility] [address] [address] Kisha Brii CBC AUTO DIFFon 04-08-2020 Basophils (Bld) [#/Vol] 0.0 103/ul Normal 0.0-0.1 [facility] Comment on above: Performed By: #### C BC #### [facility] [address] [place], [place] [id number] Kisha Brii Basophils/100 WBC (Bld) 0.4 % Normal 0.2-2.0 [facility] Comment on above: Performed By: #### C BC #### [facility] [address] [place] [address] Kisha Brii Eosinophils (Bld) [#/Vol] 0.0 103/ul Normal 0.0-0.7 [facility] Comment on above: Performed By: #### C BC #### [facility] [address] [place], [place] [address] Kisha Brii Eosinophils/100 WBC (Bld) 0.0 % Critically low 0.9-7.0 [facility] Comment on above: Performed By: #### C BC #### [facility] [address] [place], [place] [address] Kisha Costelloen Erythrocyte distribution width (RBC) [Ratio] 13.3 % Normal 11.0-15.0 [facility] Comment on above: Performed By: #### C BC #### [facility] [address] [place], [place] [address] Kisha Brii Hematocrit (Bld) [Volume fraction] 45.3 % Normal 42.0-54.0 [facility] Comment on above: Performed By: #### C BC #### [facility] [address] [place], [place] [address] Kisha Brii Hemoglobin (Bld) [Mass/Vol] 15.9 g/dL Normal 14.0-18.0 [facility] Comment on above: Performed By: #### C BC #### [facility] [address] [place], [place] [address] Kishaunruly Teresa IG # 0.03 10e3/ul Normal 0.00-0.03 [facility] Comment on above: Performed By: #### C BC #### [facility] [address] [place], [place] [address] Kisha Brii IG % 0.6 % Critically high 0.0-0.5 [facility] Comment on above: Performed By: #### C BC #### [facility] [address] [place], [place] [address] Kisha Brii Lymphocytes (Bld) [#/Vol] 1.8 103/ul Normal 1.2-3.8 [facility] Comment on above: Performed By: #### C BC #### [facility] [address] [place] [address] Kisha Brii Lymphocytes/100 WBC (Bld) 37.3 % Normal 20.5-60.0 [facility] Comment on above: Performed By: #### C BC #### [facility] [address] [place], [place] [address] Kisha Brii MANUAL DIFF REQ NO Normal [facility] Comment on above: Performed By: #### C BC #### [facility] [address] [place], [place] [address] Kisha Brii MCH (RBC) [Entitic mass] 31.4 pg Normal 25.9-34.0 [facility] Comment on above: Performed By: #### C BC #### [facility] [address] [place] [address] Kisha Brii MCHC (RBC) [Mass/Vol] 35.1 g/dL Normal 29.9-35.2 [facility] Comment on above: Performed By: #### C BC #### [facility] [address] [place], [place] [address] Kisha Brii MCV (RBC) [Entitic vol] 89.3 fL Normal 80.0-94.0 [facility] Comment on above: Performed By: #### C BC #### [facility] [address] [place], [place] [address] Kisha Brii Monocytes (Bld) [#/Vol] 0.7 103/ul Normal 0.3-0.8 [facility] Comment on above: Performed By: #### C BC #### [facility] [address] [place], [place] [address] Kisha Brii Monocytes/100 WBC (Bld) 14.5 % Critically high 1.7-12.0 [facility] Comment on above: Performed By: #### C BC #### [facility] [address] [place], [place] [address] Kisha Brii Neutrophils (Bld) [#/Vol] 2.3 103/ul Normal 1.4-6.5 [facility] Comment on above: Performed By: #### C BC #### [facility] [address] [place], [place] [address] Kisha Brii Neutrophils/100 WBC (Bld) 47.2 % Normal 43.0-75.0 [facility] Comment on above: Performed By: #### C BC #### [facility] [address] [place], [place] [address] Kisha Brii Platelet mean volume (Bld) [Entitic vol] 11.7 fL Normal 9.5-13.5 [facility] Comment on above: Performed By: #### C BC #### [facility] [address] [place], [place] [address] Kisha Brii Platelets (Bld) [#/Vol] 157 103/ul Normal 150-450 [facility] Comment on above: Performed By: #### C BC #### [facility] [address] [place], [place] [address] Kisha Brii RBC (Bld) [#/Vol] 5.07 106/ul Normal 4.70-6.10 [facility] Comment on above: Performed By: #### C BC #### [facility] [address] [place], [place] [address] Kisha Brii WBC (Bld) [#/Vol] 4.9 103/ul Normal 4.0-11.0 [facility] Comment on above: Performed By: #### C BC #### [facility] [address] [place], [place] [address] Kisha Teresa CTA CHEST WO W CONon [...] STEVEN WAN Date: 2020-04-08 12:41 Normal [facility] D-DIMERon 04-08-2020 D-DIMER COMMENTS SEE BELOW Normal [facility] Comment on above: Result Comment: Incr [...] Performed By: #### D DIM, PTT, PT ####[facility] [address] [place], [place] [address]HhpudhKisha Teresa Fibrin D-dimer FEU IA (Bld) [Mass/Vol] 1.16 ug/mL Critically high 0.19-0.50 [facility] Comment on above: Result Comment: test repeated critcal value verified Performed By: #### D DIM, PTT, PT ####[facility] [address] [place], [place] [address]Axuhkp Brii PH VENOUS BLOODon 04-08-2020 PCO2 VENOUS 46.4 mmHg Normal 40.0-52.0 [facility] Comment on above: Performed By: #### P HVEN #### [facility] [address] [id number] Kisha Brii pH VENOUS 7.37 Normal 7.33-7.43 [facility] Comment on above: Performed By: #### P HVEN #### [facility] [address] [place] [address] Kisha Teresa PROF 14(COMP METB)on 020 Albumin [Mass/Vol] 2.4 g/dL Critically low 3.5-5.0 [facility] Comment on above: Performed By: #### C MP, TSH, TROP, BNP #### [facility] [address] [id number] Kishaunruly Teresa Albumin/Globulin [Mass ratio] 0.4 {ratio} Normal [facility] Comment on above: Performed By: #### C MP, TSH, TROP, BNP #### [facility] [address] [address] Kisha Brii ALP [Catalytic activity/Vol] 68 U/L Normal 38-126 [facility] Comment on above: Performed By: #### C MP, TSH, TROP, BNP #### [facility] [address] [id number] Kisha Brii ALT [Catalytic activity/Vol] 33 U/L Normal 21-72 [facility] Comment on above: Performed By: #### C MP, TSH, TROP, BNP #### [facility] [address] [id number] Kisha Brii Anion gap [Moles/Vol] 10.1 mmol/L Normal [facility] Comment on above: Performed By: #### C MP, TSH, TROP, BNP #### [facility] [address] [address] Kisha Brii AST [Catalytic activity/Vol] 50 U/L Normal 17-59 [facility] Comment on above: Performed By: #### C MP, TSH, TROP, BNP #### [facility] [address] [address] Kisha Brii Bilirubin Ql (U) 0.9 mg/dL Normal 0.2-1.3 [facility] Comment on above: Performed By: #### C MP, TSH, TROP, BNP #### [facility] [address] [place] [address] Kisha Brii Calcium [Mass/Vol] 8.7 mg/dL Normal 8.4-10.2 [facility] Comment on above: Performed By: #### C MP, TSH, TROP, BNP #### [facility] [address] [place] [address] Kisha Brii Chloride [Moles/Vol] 96 mmol/L Critically low 98-107 [facility] Comment on above: Performed By: #### C MP, TSH, TROP, BNP #### [facility] [address] [place] [address] Kisha Brii CO2 [Moles/Vol] 27.9 mmol/L Normal 22.0-30.0 [facility] Comment on above: Performed By: #### C MP, TSH, TROP, BNP #### [facility] [address] [place] [address] Kisha Brii Creatinine [Mass/Vol] 1.13 mg/dL Normal 0.66-1.25 [facility] Comment on above: Performed By: #### C MP, TSH, TROP, BNP #### [facility] [address] [place] [address] Kisha Brii EGFR-AF GUYANESE >60 Normal >=60 [facility] Comment on above: Performed By: #### C MP, TSH, TROP, BNP #### [facility] [address] [place] [address] Kisha Brii EGFR-NON AF GUYANESE >60 Normal >=60 [facility] Comment on above: Performed By: #### C MP, TSH, TROP, BNP #### [facility] [address] [address] Kisha Brii Globulin (S) [Mass/Vol] 5.8 g/dL Normal [facility] Comment on above: Performed By: #### C MP, TSH, TROP, BNP #### [facility] [address] [address] Kisha Brii Glucose [Mass/Vol] 263 mg/dL Critically high 74-106 [facility] Comment on above: Performed By: #### C MP, TSH, TROP, BNP #### [facility] [address] [place] [address] Kisha Brii Potassium [Moles/Vol] 3.0 mmol/L Critically low 3.4-5.0 [facility] Comment on above: Performed By: #### C MP, TSH, TROP, BNP #### [facility] [address] [place] [address] Kisha Brii Protein [Mass/Vol] 8.2 g/dL Normal 6.1-8.2 [facility] Comment on above: Performed By: #### C MP, TSH, TROP, BNP #### [facility] [address] [place] [address] Kisha Brii Sodium [Moles/Vol] 131 mmol/L Critically low 137-145 [facility] Comment on above: Performed By: #### C MP, TSH, TROP, BNP #### [facility] [address] [place] [address] Kisha Brii Urea nitrogen [Mass/Vol] 15.0 mg/dL Normal 9.0-20.0 [facility] Comment on above: Performed By: #### C MP, TSH, TROP, BNP #### [facility] [address] [address] Kisha Brii Urea nitrogen/Creatinin e [Mass ratio] 13.3 mg/mg Normal [facility] Comment on above: Performed By: #### C MP, TSH, TROP, BNP #### [facility] [address] [place], [place] [address] Kisha Teresa PROTIMEon 04-08-2020 INR Coag (PPP) [Relative time] 1.03 {INR} Normal [facility] Comment on above: Performed By: #### D DIM, PTT, PT ####[facility] [id number] [place], [place] [address]Tiijsv Karen PT Coag (PPP) [Time] 10.9 s Normal 9.0-11.6 [facility] Comment on above: Performed By: #### D DIM, PTT, PT ####[facility] [address] [place], [place] [address]Ougvvd Karen PT Coag (PPP) [Time] SEE BELOW Normal [facility] Comment on above: Result Comment: PIO RED INR: 2.0 - 3.0 CONDITIONS NOT LISTED BELOW 2.5 - 3.5 FOR PROSTHETIC HEART VALVE REPLACEMENT 2.5 - 3.5 RECURRENT THROMBOSIS Performed By: #### D DIM, PTT, PT ####[facility] [address] [place], [place] [address]CozhiaKisha Teresa PTTon 04-08-2020 aPTT Coag (Bld) [Time] PLEASE NOTE: NORMAL RANGE CHANGE 03-31-2015 DUE TO REAGENT LOT CHANGE Normal [facility] Comment on above: Performed By: #### D DIM, PTT, PT #### [facility] [address] [place], [place] [address] Kisha Teresa aPTT Coag (Bld) [Time] 26.7 s Normal 22.3-36.2 [facility] Comment on above: Performed By: #### D DIM, PTT, PT #### [facility] [address] [place], [place] [address] Kisha Teresa Rapid Covid-19 PCR (CVDRPD)o n 04-08-2020 [employer] LDT Info SEE BELOW Normal [facility] Comment on above: Result Comment: This test is not yet approved or cleared by the [place] Food and Drug Administration (FDA) . This test was developed by [employer], [place]. The performance characteristics of this test were validated by The [facility]. The results are not intended to be used as the sole means for clinical diagnosis or patient management decisions. The [facility] is authorized under Clinical Laboratory Improvement Amendments (CLIA) to perform high-complexity testing. When diagnostic testing is negative, the possibility of a false negative should be considered in the context of a patients recent exposures and the presence of clinical signs and symptoms consistent with SARS-CoV-2. Performed By: #### C VDRPD #### [facility] [address] [place] [address] SARS-CoV-2 DETECTED NOT DETECTED [facility] Comment on above: Result Comment: . Performed By: #### C VDRPD #### [facility] [address] [place] [address] TROPONIN - Ion 04-08-2020 Troponin I.cardiac [Mass/Vol] SEE BELOW Normal [facility] Comment on above: Result Comment: <0.0 34 ng/ml NEGATIVE 0.034-0.119 INDETERMINATE 0.120 AMI CUT OFF Performed By: #### C MP, TSH, TROP, BNP #### [facility] [address] [place] [address] Troponin I.cardiac [Mass/Vol] ng/mL Normal <=0.034 [facility] Comment on above: Performed By: #### C MP, TSH, TROP, BNP #### [facility] [address] [place] [address] TSHon 04-08-2020 TSH Qn 2.851 uIU/mL Normal 0.470-4.680 [facility] Comment on above: Performed By: #### C MP, TSH, TROP, BNP #### [facility] [address] [place] [address] TSH Qn SEE BELOW Normal [facility] Comment on above: Result Comment: <0.3 4 UIU/ml HYPERTHYROID 0.34-5.60 UIU/ml EUTHYROID >5.60 UIU/ml HYPOTHYROID Performed By: #### C MP, TSH, TROP, BNP #### [facility] [address] [place] [address] XR CHEST 1 Von 04-08-2020 XR CHEST [...] by: STEVEN WAN Date: 2020-04-08 11:49 Normal [facility] Vital Signs Date Time Vital Sign Value Performing Clinician Maritza flores 06-18-2024 08:41-0500 Body height 173.99 cm [facility] 06-18-2024 08:41-0500 Body mass index (BMI) [Ratio] 26.9 kg/m2 [facility] 06-18-2024 08:41-0500 Body weight 81.4 kg [facility] 06-18-2024 08:41-0500 Diastolic blood pressure 86 mm[Hg] [facility] 06-18-2024 08:41-0500 Heart rate 74 /min [facility] 06-18-2024 08:41-0500 Respiratory rate 18 /min [facility] 06-18-2024 08:41-0500 SaO2% (BldA) [Mass fraction] 99 % [facility] 06-18-2024 08:41-0500 Systolic blood pressure 138 mm[Hg] [facility] 04-23-2024 09:26-0500 Body height 173.99 cm [facility] 04-23-2024 09:26-0500 Body mass index (BMI) [Ratio] 26.8 kg/m2 [facility] 04-23-2024 09:26-0500 Body weight 81.27 kg [facility] 04-23-2024 09:26-0500 Diastolic blood pressure 98 mm[Hg] [facility] 04-23-2024 09:26-0500 Heart rate 83 /min [facility] 04-23-2024 09:26-0500 Respiratory rate 18 /min [facility] 04-23-2024 09:26-0500 SaO2% (BldA) [Mass fraction] 98 % [facility] 04-23-2024 09:26-0500 Systolic blood pressure 142 mm[Hg] [facility] 04-07-2024 08:17-0500 Body height 175.3 cm Christopher Edi DO Work Phone: [facility] 04-07-2024 08:17-0500 Body mass index (BMI) [Ratio] 26.11 kg/m2 Christopher Edi DO Work Phone: [facility] 04-07-2024 08:17-0500 Body weight 80.2 kg Christopher Edi DO Work Phone: [facility] 04-07-2024 08:17-0500 Diastolic blood pressure 88 mm[Hg] Christopher Edi DO Work Phone: [facility] 04-07-2024 08:17-0500 Heart rate 84 /min Christopher Edi DO Work Phone: [facility] 04-07-2024 08:17-0500 SaO2% (BldA) [Mass fraction] 98 % Christopher Edi DO Work Phone: [facility] 04-07-2024 08:17-0500 Systolic blood pressure 150 mm[Hg] Christopher Edi DO Work Phone: [facility] 01-21-2024 09:58-0400 Body height 173.99 cm [facility] 01-21-2024 09:58-0400 Body mass index (BMI) [Ratio] 25.5 kg/m2 [facility] 01-21-2024 09:58-0400 Body weight 77.28 kg [facility] 01-21-2024 09:58-0400 Diastolic blood pressure 91 mm[Hg] [facility] 01-21-2024 09:58-0400 Heart rate 82 /min [facility] 01-21-2024 09:58-0400 Respiratory rate 18 /min [facility] 01-21-2024 09:58-0400 SaO2% (BldA) [Mass fraction] 99 % [facility] 01-21-2024 09:58-0400 Systolic blood pressure 137 mm[Hg] [facility] 09-10-2023 08:17-0400 Body height 173.99 cm [facility] 09-10-2023 08:17-0400 Body mass index (BMI) [Ratio] 26.9 kg/m2 [facility] 09-10-2023 08:17-0400 Body weight 81.33 kg [facility] 09-10-2023 08:17-0400 Diastolic blood pressure 91 mm[Hg] [facility] 09-10-2023 08:17-0400 Heart rate 87 /min [facility] 09-10-2023 08:17-0400 Respiratory rate 18 /min [facility] 09-10-2023 08:17-0400 SaO2% (BldA) [Mass fraction] 99 % [facility] 09-10-2023 08:17-0400 Systolic blood pressure 134 mm[Hg] [facility] 06-05-2023 09:15-0500 Body height 173.99 cm Yolette Scally Other [facility] 06-05-2023 09:15-0500 Body mass index (BMI) [Ratio] 25.9 kg/m2 Yolette Scally Other [facility] [employer] [facility] Other 06-05-2023 09:15-0500 Body weight 78.43 kg Yolette Scally Other [facility] Other 06-05-2023 09:15-0500 Body weight 78.42 kg MD Le Rodgers Work Phone: [facility] 06-05-2023 09:15-0500 Diastolic blood pressure 83 mm[Hg] Yolette Scally Other [facility] 06-05-2023 09:15-0500 Respiratory rate 18 /min Yolette Scally Other [facility] Other 06-05-2023 09:15-0500 SaO2% (BldA) [Mass fraction] 99 % Yolette Scally Other [facility] Other 06-05-2023 09:15-0500 Systolic blood pressure 119 mm[Hg] Yolette Scally Other [facility] 02-27-2023 10:45-0400 Body height 173.99 cm Yolette Scally Other [facility] Other 02-27-2023 10:45-0400 Body mass index (BMI) [Ratio] 26.07 kg/m2 Yolette Scally Other [facility] Other 02-27-2023 10:45-0400 Body weight 78.93 kg Yolette Scally Other [facility] Other 02-27-2023 10:45-0400 Diastolic blood pressure 86 mm[Hg] Yolette Scally Other [facility] Other 02-27-2023 10:45-0400 Respiratory rate 18 /min Yolette Scally Other [facility] Other 02-27-2023 10:45-0400 SaO2% (BldA) [Mass fraction] 99 % Yolette Scally Other [facility] Other 02-27-2023 10:45-0400 Systolic blood pressure 126 mm[Hg] Yolette Scally Other [facility] Other 12-19-2022 08:45-0400 Body height 173.99 cm Yolette Scally Other [facility] Other 12-19-2022 08:45-0400 Body mass index (BMI) [Ratio] 26.37 kg/m2 Yolette Scally Other [facility] Other 12-19-2022 08:45-0400 Body weight 79.83 kg Yolette Scally Other [facility] Other 12-19-2022 08:45-0400 Diastolic blood pressure 95 mm[Hg] Yolette Scally Other [facility] Other 12-19-2022 08:45-0400 Respiratory rate 18 /min Yolette Scally Other [facility] Other 12-19-2022 08:45-0400 SaO2% (BldA) [Mass fraction] 98 % Yolette Scally Other [facility] Other 12-19-2022 08:45-0400 Systolic blood pressure 149 mm[Hg] Yolette Scally Other [facility] Other 10-03-2022 08:15-0400 Body height 173.99 cm Yolette Scally Other [facility] Other 10-03-2022 08:15-0400 Body mass index (BMI) [Ratio] 27.3 kg/m2 Yolette Scally Other [facility] Other 10-03-2022 08:15-0400 Body weight 82.65 kg Yolette Scally Other [facility] Other 10-03-2022 08:15-0400 Diastolic blood pressure 90 mm[Hg] Yolette Scally Other [facility] Other 10-03-2022 08:15-0400 Respiratory rate 18 /min Yolette Scally Other [facility] Other 10-03-2022 08:15-0400 SaO2% (BldA) [Mass fraction] 99 % Yolette Scally Other [facility] Other 10-03-2022 08:15-0400 Systolic blood pressure 142 mm[Hg] Yolette Scally Other [facility] Other 07-24-2022 10:30-0400 Body height 173.99 cm Le Rodgers Other [facility] Other 07-24-2022 10:30-0400 Body mass index (BMI) [Ratio] 27.72 kg/m2 Le Rodgers Other [facility] Other 07-24-2022 10:30-0400 Body weight 83.92 kg Le oRdgers Other [facility] Other 07-24-2022 10:30-0400 Diastolic blood pressure 80 mm[Hg] Le Rodgers Other [facility] Other 07-24-2022 10:30-0400 SaO2% (BldA) [Mass fraction] 97 % Le Rodgers Other [facility] Other 07-24-2022 10:30-0400 Systolic blood pressure 130 mm[Hg] Le Rodgers Other [facility] Other 06-28-2022 09:00-0500 Body height 175.26 cm Yolette Scally Other [facility] Other 06-28-2022 09:00-0500 Body mass index (BMI) [Ratio] 27.98 kg/m2 Yolette Scally Other [facility] Other 06-28-2022 09:00-0500 Body weight 85.96 kg Yolette Scally Other [facility] Other 06-28-2022 09:00-0500 Diastolic blood pressure Yolette Scally Other [facility] Other 06-28-2022 09:00-0500 Respiratory rate 18 /min Yolette Scally Other [facility] Other 06-28-2022 09:00-0500 SaO2% (BldA) [Mass fraction] 98 % Yolette Scally Other [facility] Other 06-28-2022 09:00-0500 Systolic blood pressure 116 mm[Hg] Yolette Scally Other [facility] Other 05-05-2022 09:15-0500 Body height 175.26 cm Yolette Scally Other [facility] Other 05-05-2022 09:15-0500 Body mass index (BMI) [Ratio] 28.84 kg/m2 Yolette Scally Other [facility] Other 05-05-2022 09:15-0500 Body weight 88.59 kg Yolette Scally Other [facility] Other 05-05-2022 09:15-0500 Diastolic blood pressure 67 mm[Hg] Yolette Scally Other [facility] Other 05-05-2022 09:15-0500 Respiratory rate 18 /min Yolette Scally Other [facility] Other 05-05-2022 09:15-0500 SaO2% (BldA) [Mass fraction] 97 % Yolette Scally Other [facility] Other 05-05-2022 09:15-0500 Systolic blood pressure 96 mm[Hg] Yolette Scally Other [facility] Other 02-03-2022 09:30-0400 Body height 175.26 cm Yolette Scally Other [facility] Other 02-03-2022 09:30-0400 Body mass index (BMI) [Ratio] 28.14 kg/m2 Yolette Scally Other [facility] Other 02-03-2022 09:30-0400 Body weight 86.46 kg Yolette Scally Other [facility] Other 02-03-2022 09:30-0400 Diastolic blood pressure 94 mm[Hg] Yolette Scally Other [facility] Other 02-03-2022 09:30-0400 Respiratory rate 18 /min Yolette Scally Other [facility] Other 02-03-2022 09:30-0400 SaO2% (BldA) [Mass fraction] 99 % Yolette Scally Other [facility] Other 02-03-2022 09:30-0400 Systolic blood pressure 141 mm[Hg] Yolette Scally Other [facility] Other 11-01-2021 10:15-0400 Body height 175.26 cm Yolette Scally Other [facility] Other 11-01-2021 10:15-0400 Body mass index (BMI) [Ratio] 27.76 kg/m2 Yolette Scally Other [facility] Other 11-01-2021 10:15-0400 Body weight 85.28 kg Yolette Scally Other [facility] Other 11-01-2021 10:15-0400 Diastolic blood pressure 92 mm[Hg] Yolette Scally Other [facility] Other 11-01-2021 10:15-0400 Respiratory rate 18 /min Yolette Scally Other [facility] Other 11-01-2021 10:15-0400 SaO2% (BldA) [Mass fraction] 99 % Yolette Scally Other [facility] Other 11-01-2021 10:15-0400 Systolic blood pressure 123 mm[Hg] Yolette Scally Other [facility] Other 07-20-2021 09:45-0400 Body height 175.26 cm Yolettegibran Segally Other [facility] Other 07-20-2021 09:45-0400 Body mass index (BMI) [Ratio] 27.85 kg/m2 Yolette Scally Other [facility] Other 07-20-2021 09:45-0400 Body weight 85.55 kg Yolette Philipply Other [facility] Other 07-20-2021 09:45-0400 Diastolic blood pressure 93 mm[Hg] Yolette Scally Other [facility] Other 07-20-2021 09:45-0400 Respiratory rate 20 /min Yolette Scally Other [facility] Other 07-20-2021 09:45-0400 SaO2% (BldA) [Mass fraction] 100 % Yolette Scally Other [facility] Other 07-20-2021 09:45-0400 Systolic blood pressure 139 mm[Hg] Yolette Scally Other [facility] Other Encounters Encounter Date Encounter Type Care Provider Facility Start: 06-18-2024 End: 06-18-2024 ambulatory Yoletteedilma Segalbereket [facility] Work Phone: Start: 06-18-2024 End: 06-18-2024 Departed Referred Yolette Pierre [employer] Work Phone: [facility] [place] Work Phone: Start: 06-18-2024 End: 06-18-2024 ambulatory [facility] Work Phone: Start: 06-18-2024 End: 06-18-2024 Patient encounter procedure [facility] Physician [facility] Work Phone: Start: 04-23-2024 End: 04-23-2024 Patient encounter procedure [facility] Physician [facility] Work Phone: Start: 04-07-2024 End: 04-07-2024 Bamboo flowsheet Ezekieler Edi DO Work Phone: [facility] [employer] [address] Start: 04-07-2024 End: 04-07-2024 Bamboo flowsheet Christopher Edi DO Work Phone: [employer] [address] Start: 04-07-2024 End: 04-07-2024 Office outpatient new 45 minutes Melanie Murrayett DO Work Phone: [employer] [facility] Comment on above: Neuralgia (Primary D x); DDD (degenerative disc disease), cervical Start: 04-07-2024 End: 04-07-2024 ambulatory MELANIE DALEY Not Available Start: 01-21-2024 End: 01-21-2024 ambulatory [facility] Work Phone: Start: 01-21-2024 End: 01-21-2024 Patient encounter procedure [facility] Physician [facility] Work Phone: Start: 09-10-2023 End: 09-10-2023 ambulatory [facility] Work Phone: Start: 09-10-2023 End: 09-10-2023 Patient encounter procedure [facility] Physician [facility] Work Phone: Start: 06-07-2023 End: 06-07-2023 ambulatory Yolette Pierre Other [facility] Other Start: 06-07-2023 Telephone encounter Yolette [facility] Start: 06-05-2023 (DM) Diabetes Yolette maldonado [facility] Start: 06-05-2023 End: 06-05-2023 ambulatory MD Le Rodgers Work Phone: [facility] Other Start: 06-05-2023 End: 06-05-2023 Discharged Recurring MD Le Rodgers Work Phone: [facility] Work Phone: Start: 06-05-2023 End: 06-05-2023 Patient encounter procedure MD Le Rodgers Work Phone: [facility]- Start: 05-18-2023 End: 05-18-2023 ambulatory Yolette Scally Other [facility] Other Start: 05-18-2023 Telephone encounter Yolette Scally [facility] Start: 02-28-2023 End: 02-28-2023 ambulatory Yolette Scally Other [facility] Other Start: 02-28-2023 Telephone encounter Yolette Scally [facility] Start: 02-27-2023 (DM) Diabetes Yolette Scally [facility] Start: 02-27-2023 End: 02-27-2023 ambulatory Yolette Scally Other [facility] Other Start: 12-19-2022 (DM) Diabetes Yolette Scally [facility] Start: 12-19-2022 End: 12-19-2022 ambulatory Yolette Scally Other [facility] Other Start: 12-07-2022 End: 12-07-2022 ambulatory Yolette Scally Other [facility] Other Start: 12-07-2022 Telephone encounter Yolette Scally [facility] Start: 10-03-2022 (DM) Diabetes Yolette Scally [facility] Start: 10-03-2022 End: 10-03-2022 ambulatory Yolette Scally Other [facility] Other Start: 10-03-2022 Telephone encounter Yolette Scally [facility] Start: 07-24-2022 End: 07-24-2022 ambulatory Le Rodgers Other [facility] Other Start: 07-24-2022 Office outpatient ne w 30 minutes Le Rodgers [facility] Start: 07-04-2022 End: 07-04-2022 ambulatory Yolette Scally Other [facility] Other Start: 07-04-2022 Telephone encounter Yolette Scally [facility] Start: 06-28-2022 (DM) Diabetes Yolette Scally [facility] Start: 06-28-2022 End: 06-28-2022 ambulatory Yolette Scally Other [facility] Other Start: 06-26-2022 End: 06-26-2022 ambulatory Yolette Scally Other [facility] Other Start: 06-26-2022 Telephone encounter Yolette Scally [facility] Start: 06-19-2022 End: 06-19-2022 ambulatory Yolette Scally Other [facility] Other Start: 06-19-2022 Telephone encounter Yolette Scally [facility] Start: 05-05-2022 (DM) Diabetes Yolette Scally [facility] Start: 05-05-2022 End: 05-05-2022 ambulatory Yolette Scally Other [facility] Other Start: 03-27-2022 End: 03-27-2022 ambulatory Yolette Scally Other [facility] Other Start: 03-27-2022 Telephone encounter Yolette Scally [facility] Start: 02-03-2022 (DM) Diabetes Yolette Scally [facility] Start: 02-03-2022 End: 02-03-2022 ambulatory Yolette Scally Other [facility] Other Start: 11-21-2021 End: 11-21-2021 ambulatory Yolette Scally Other [facility] Other Start: 11-21-2021 Telephone encounter Yolette Scally [facility] Start: 11-11-2021 End: 11-11-2021 ambulatory Yolette Scally Other [facility] Other Start: 11-11-2021 Telephone encounter Yolette Scally [facility] Start: 11-01-2021 (DM) Diabetes Yolette Scally [facility] Start: 11-01-2021 End: 11-01-2021 ambulatory Yolette Scally Other [facility] Other Start: 10-24-2021 End: 10-24-2021 ambulatory Yolette Scally Other [facility] Other Start: 10-24-2021 Telephone encounter Yolette Scally [facility] Start: 09-13-2021 End: 09-13-2021 ambulatory Yolette Scally Other [facility] Other Start: 09-13-2021 Telephone encounter Yolette Scally [facility] Start: 08-23-2021 End: 08-23-2021 ambulatory Yolette Scally Other [facility] Other Start: 08-23-2021 Telephone encounter Yolette smiley [facility] Start: 08-04-2021 End: 08-04-2021 ambulatory Yolette Pierre Other [facility] Other Start: 08-04-2021 Telephone encounter Yolette smiley [facility] Start: 07-20-2021 (DM) Diabetes Yolette Mcfarland [facility] Start: 07-20-2021 End: 07-20-2021 ambulatory Yolette Pierre Other [facility] Other Start: 04-08-2020 End: 04-08-2020 Patient encounter procedure MARCEL CHENCHO Facility: Plan of Treatment Date Care Activity Detail Author Start: 04-07-2024 End: 04-07-2024 Patient encounter procedure 04/07/2024 8:30 AM EST Office Visit [facility] [address] [address] Melanie Daley DO [address] [place] [address] Arrived [facility] Comment on above: Arrived Comprehensive metabo lic 1999 panel - Serum or Plasma [facility] Comprehensive metabo lic 1999 panel - Serum or Plasma [facility] Payers Date Payer Category Payer Self-pay [id number] 2024 Unknown [id number] 2022 Medicare (Managed Care) [facility] [id number] 2022 Medicare [id number] 1960 Unknown [id number] 1960 Unknown [id number] 1959 Unknown [id number] Medicare [id number] Unknown [id number] Social History Date Type Detail Facility Unknown if ever smoked [facility] Other Sex Assigned At [facility] Other Start: 1960 Sex Assigned At Male F [facility] Start: 09-10-2023 End: 09-10-2023 Tobacco smoking status ALIS Ex-smoker (finding) [facility] Tobacco smoking status [facility] Tobacco smoking consumption unknown [facility] Start: 1960 Sex assigned at Not on file [facility] Start: 06-18-2024 End: 06-19-2024 Sex Male (finding) [facility] Medical Equipment Procedure Code Equipment Code Equipment [...] Test) strip Start: 06-18-2024 End: 06-18-2024 [facility] Start: 06-18-2024 End: 06-18-2024 Clinical Notes 07-20-2021 to 04-23-2024 Note Date & Type Note Facility 04-23-2024 Evaluation note Diagnosis Onset Date Resolution BMI 25.0-25.9,adult acute Decem viji 2023 8:54am Dietary counseling and surveillance acute April 23 8:54am HTN (hypertension) acute Decemb er 2023 8:54am Hyperlipidemia acute April 062023 8:54am USP 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 insulin acute April 23 024 8:54am Persistent albuminuria acute De cember 2023 8:54am Type 2 diabetes mellitus with hyperglycemia acute April 8:54am Vitamin D deficiency acute Dece mber 2023 8:54am BMI 25.0-25.9,adult acute Febru jennie 2024 8:25am Dietary counseling and surveillance acute June 18 8:25am HTN (hypertension) acute Februa ry 2024 8:25am Hyperlipidemia acute June 072024 8:25am USP 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 insulin acute June 18 8:25am Persistent albuminuria acute Fe bruary 2024 8:25am Type 2 diabetes mellitus with hyperglycemia acute June 8:25am Vitamin D deficiency acute Febr uary 2024 8:25am [facility] Work Phone: 1(854) 429-427912-02-2024 History of Present illness Narrative* Melanie Daley, [...] , wrist extensors , wrist flexor , user support specialist strength 5/5. LUE Strength deltoid , biceps , triceps , wrist extensors , wrist flexor , user support specialist strength 5/5. RLE Strength illopsoas, quadriceps, tibialis [...] reflex 2+ . Christy's sign negative. Coordination: [id number] testing and rapid alternating movements are normal [...] plan, and return instructions documented in this encounterAl[facility]. [facility] [id number] Evaluation note* Encounter Date Diagnosis Assessment Notes Treatment Notes Treatment Clinical Notes Jun, Type 2 diabetes mellitus with hyperglycemia (ICD-10 - E11.65) [facility] Other 01-30-2024 Evaluation note* Encounter Date Diagnosis [...] continue BP good. ESTABLISH WITH PCP May, USP 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 insulin (ICD-10 - Z79.4) May, Persistent albuminuria (ICD-10 - R80.9) Failed Jardiance, Tolerating Farxiga, increase Lisinopril last visit and tolerating. CANNOT PRODUCE URINE SAMPLE tODAY, LAB ORDER SENT TO FOLLOWUP. If persistent albuminuria could consider nephrology. Discussed management of glycemia and high blood pressure to protect kidneys. May, Albuminuria (ICD-10 - R80.9) May, BMI 25.0-25.9,adult (ICD-10 - Z68.25) [facility] Other 10-25-2023 Evaluation note* Encounter Date Diagnosis Assessment Notes Treatment Notes Treatment Clinical Notes Feb, Albuminuria (ICD-10 - R80.9) [facility] Other 10-24-2023 Evaluation note* Encounter Date Diagnosis [...] continue BP good. 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 If cannot tolerate class medications or persistent albuminuria could consider nephrology. Repeat microalbuminuria after Farxiga. Discussed management of glycemia and high blood pressure to protect kidneys. Feb, BMI 26.0-26.9,adult (ICD-10 - Z68.26) Feb, Albuminuria (ICD-10 - R80.9) [facility] Other 08-15-2023 Evaluation note* Encounter Date Diagnosis [...] published to portal slightly above goal Dec, USP 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 insulin (ICD-10 - Z79.4) Dec, Persistent albuminuria (ICD-10 - R80.9) Failed Jardiance, will do trial of Farxiga. If cannot tolerate class medications or persistent albuminuria could consider nephrology. Repeat microalbuminuria after Farxiga. Discussed management of glycemia and high blood pressure to protect kidneys. 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 If cannot tolerate class medications or persistent albuminuria could consider nephrology. Repeat microalbuminuria after Farxiga. Discussed management of glycemia and high blood pressure to protect kidneys. September, BMI 27.0-27.9,adult (ICD-10 - Z68.27) [facility] Other 03-20-2023 Evaluation note* Encounter Date Diagnosis Assessment Notes Treatment Notes Treatment Clinical Notes Jul, Hyperlipidemia (ICD-10 - E78.5) will refill med and check labs today. Jul, Type 2 diabetes mellitus with hyperglycemia (ICD-10 - E11.65) Continued followup with diabetes clinic. 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 If cannot tolerate class medications or persistent albuminuria could consider nephrology. Repeat microalbuminuria after Farxiga. Discussed management of glycemia and high blood pressure to protect kidneys. Jun, Other inital weigh t increase, now declining [facility] Other 02-13-2023 Evaluation note* Encounter Date Diagnosis Assessment Notes Treatment Notes Treatment Clinical Notes Jun, Type 2 diabetes mellitus with hyperglycemia (ICD-10 - E11.65) [facility] Other 12-30-2022 Evaluation note* Encounter Date Diagnosis [...] PCP to manage cholesterol and preventative treatments. [facility] physician group primary care provider flyer given. 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 If cannot tolerate class medications or persistent albuminuria could consider nephrology. Repeat microalbuminuria after Farxiga. Discussed management of glycemia and high blood pressure to protect kidneys. Apr, Other inital weigh t increase, now declining [facility] Other 09-30-2022 Evaluation note* Encounter Date Diagnosis [...] for activation. She continue miladys. Encouraged calling [employer] for replacement of 2 sensors. 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 Patient has difficulty with his launch steward currently, questioning accuracy as it was run over. He will request a new launch steward from [employer]. We also discussed using cell phone as [...] previous PCP. He is given information regarding [facility] physicians to include Dr. Vela who may be geographically desirable. I did send him with written to do list 1 call [employer] for replacement of launch steward. 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 (ICD-10 - Z79.4) Jul, BMI 27.0-27.9,adult (ICD-10 - Z68.27) Jul, Other inital weigh t increase, now declining [place] Other Chief complaint+Reason for visit Narrative* Chief Complaint DMN f/u-METER Reason for Visit BMI 25.0-25.9,adult Dietary counseling and surveillance HTN (hypertension) Hyperlipidemia 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 Persistent albuminuria Type 2 diabetes mellitus with hyperglycemia Vitamin D deficiency [facility] Work Phone: Evaluation noteNo InformationNort Skipola Other Evaluation noteNo assessment information available [facility] Work Phone: Evaluation note* Diagnosis Onset Date Resolution Status BMI 25.0-25.9,adult acute Dietary counseling and surveillance acute HTN (hypertension) acute Hyperlipidemia acute USP 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 insulin acute Persistent albuminuria acute Type 2 diabetes mellitus with hyperglycemia acute Vitamin D deficiency acute [facility] Work Phone: Evaluation note* Diagnosis [...] PICC LINE 2017 Hospitalization History ICU In [facility] f or 8-10 days 2016 [facility] Other Reason for referral (narrative)* Reason Nail deformity, Type II Diabetes Referral sent , patient informed Diagnosis 1 Type 2 diabetes reji itus with hyperglycemia (E11.65) Diagnosis 2 Nail deformity (L60. 8) Referral Organization [facility] Referring Provider First Name Yolette Referring Provider Last Name Gabby Referring Provider Specialty Nurse Pract itioner Referred Organization [facility] Referred Provider STEVEN AHMADI Referred Address ,[place], [place],[address] Referred Provider Specialty Podiatry - S urgical Chiropody Referral Priority Routine General Notes Yolette Benavides 06/08 09:03:14 AM > Per Nelia at Dr Montes office once referral is received she will [...] them. Clinical Notes Dr Steven Ahmadi# [phone] [facility] Other Summary Purpose Family History No Family [...] 2024 8:54am Hyperlipidemia April 23, 2024 8:54am USP 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 insulin Decembe r 2023 8:54am Persistent albuminuria April 23 8:54am Type 2 diabetes mellitus with hyperglyce samir April 23, 2024 8:54am Vitamin D deficiency April 23, 2024 8:54am BMI 25.0-25.9,adult June 18, 2024 8:25am Dietary counseling and surveillance Febr uary 2024 8:25am HTN (hypertension) June 18, 2024 8:25am Hyperlipidemia June 18, 2024 8:25am USP 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 insulin Februar y 2024 [...] DATE CREATED AUTHOR AUTHOR'S ORGANIZ ATION 04/07/2024 [facility] EPIC DATE CREATED AUTHOR AUTHOR'S ORGANIZ ATION 07/01/2024 [facility] REASON FOR VISIT (unrecogniz ed section and content) DS Refill needed Rouvastatin DS LabsDM follow up, Type 2 IDDM, Discuss UMIC, NO DIABETIC RETINOPATHYDS Miladys 2 ReaderDS DM patient cancelled 2DM follow up, Type 2 IDDM, Discuss UMIC, FCCC Visit CodesDS Semglee refillAppointment needDM follow up, Type 2 IDDM, Discuss UMICDS patient cancelled has a cold [id number] follow up, Type 2 IDDM, Discuss UMIC, FCCC Visit CodesDS refill requestResponding to eRX2 month Follow up, DM follow up, Type 2 IDDM, Discuss UMIC, FCCC Visit CodesDS LisproDiabetes Check Up-Has Not been seen in awhileDS Diabetic eye examDM 3 month F/U, Type 2 IDDM, Discuss UMIC, Diabetic eye exam [id number] rxDM, Discuss UMIC, Diabetic eye exam [id number] UMIC, Diabetic eye exam [id number] RESULTs/ LisinoprilDS Podiatry referral FYIDM, Discuss UMIC, Diabetic eye exam [id number] Fiasp from [facility] Teams (unrecognized sec [...] January 21, 2024 End: January 21, 2024 Taper Operator Relationship Specialty Start Date End Date Melanie Daley DO [address] [phone] Referring Physician Neurology 04/07/24 Leticia Blanco NP [address] [phone] Nurse Practitioner Neurology 04/07/24 Suzanna Ybarra NP [address] [phone] Nurse Practitioner Neurology 04/07/24 Team Status: Active [...] BE BASED ON THE PRIMARY CLINICAL RECORDS. [employer] [facility]. provides no warranty or guarantee of the accuracy or completeness of information in this document.
[2024-09-20 16:20] VITALS: O2SAT 97
[2024-09-20] MEDS: ENOXAPARIN SODIUM 40 MG/0.4 ML SYRINGE SUBQ (17:38)
[2024-09-20] MEDS: LACTATED RINGER'S SOLUTION 1,000 ML 100 ML IV (17:38)
[2024-09-20 19:43] VITALS: PULSE 89
[2024-09-20 20:12] VITALS: O2SAT 95
[2024-09-20] MEDS: PIPERACILLIN SODIUM/TAZOBACTAM 3.375 GM in 0.9 % SODIUM CHLORIDE 50 ML IV (21:11)
[2024-09-20 22:00] VITALS: BP 125/92; PULSE 89; TEMP 36.8; O2SAT 96
[2024-09-21] VITALS (9 sets, daily range): BP systolic 110–156; BP diastolic 68–92; PULSE 69–80; TEMP 36.6–37.2; O2SAT 94–97
[2024-09-21] MEDS: VANCOMYCIN HCL 1,250 MG in 0.9 % SODIUM CHLORIDE 250 ML 166.667 MG IV (03:39)
[2024-09-21] MEDS: PIPERACILLIN SODIUM/TAZOBACTAM 3.375 GM in 0.9 % SODIUM CHLORIDE 50 ML IV ×3 (05:00→21:15)
[2024-09-21 06:28] LABS: Basophils Absolute Auto 0.1 10^3/uL (0.0-0.1); Basophils Percent Auto 0.6 % (0.2-2.0); Eosinophils Percent Auto 0.2 % (0.9-7.0); Hematocrit 34.2 % (42.0-54.0); Hemoglobin 11.6 g/dL (14.0-18.0); Immature Granulocytes Abs Auto 0.06 10^3/uL (0.00-0.03); Immature Granulocytes Pct Auto 0.5 % (0.0-0.5); Lymphocytes Absolute Auto 1.9 10^3/uL (1.2-3.8); Lymphocytes Percent Auto 15.9 % (20.5-60.0); Mean Corpuscular HGB Conc 33.9 g/dL (29.9-35.2); Mean Corpuscular Hemoglobin 30.8 pg (25.9-34.0); Mean Corpuscular Volume 90.7 fL (80.0-94.0); Mean Platelet Volume 9.7 fL (9.5-13.5); Monocytes Absolute Auto 1.5 10^3/uL (0.3-0.8); Monocytes Percent Auto 12.6 % (1.7-12.0); Neutrophils Absolute Auto 8.4 10^3/uL (1.4-6.5); Neutrophils Percent Auto 70.2 % (43.0-75.0); Platelet Count 314 10^3/uL (150-450); Red Blood Count 3.77 10^6/uL (4.70-6.10); Red Cell Distribution Width 11.3 % (11.0-15.0); White Blood Count 11.9 10^3/uL (4.0-11.0)
[2024-09-21 06:42] LABS: Alanine Aminotransferase 16 U/L (16-63); Albumin Globulin Ratio 0.3; Albumin Level 1.9 g/dL (3.4-5.0); Alkaline Phosphatase 79 U/L (46-116); Anion Gap 14.1; Aspartate Amino Transferase 21 U/L (15-37); BUN Creatinine Ratio 20.3; Bilirubin Total 0.5 mg/dL (0.2-1.0); Calcium 8.8 mg/dL (8.5-10.1); Carbon Dioxide 24.5 mmol/L (21.0-32.0); Chloride 103 mmol/L (98-107); Estimated GFR (African America >60 (>=60 mL/min/1.73m^2); Estimated GFR (Non-African Ame >60 (>=60 mL/min/1.73m^2); Globulin 5.6 g/dL; Glucose 106 mg/dL (74-106); Potassium 4.6 mmol/L (3.5-5.1); Sodium 137 mmol/L (136-145); Total Protein 7.5 g/dL (6.4-8.2)
[2024-09-21] MEDS: ENOXAPARIN SODIUM 40 MG/0.4 ML SYRINGE SUBQ (09:16)
[2024-09-21] MEDS: LISINOPRIL 5 MG TABLET PO (09:16)
[2024-09-21] MEDS: LACTATED RINGER'S SOLUTION 1,000 ML 100 ML IV ×2 (09:16→21:15)
[2024-09-21] MEDS: VANCOMYCIN HCL 1,000 MG in 0.9 % SODIUM CHLORIDE 250 ML 250 MG IV ×2 (09:17→21:16)
--- NOTE | 2024-09-21 11:59 | PM.HP ---
HPI H&P: HPI History of Present Illness Chief complaint: Acutecellulitis dry gangrene right great toe Narrative: 64-year-old male with past medical history of essential hypertension, type 2 diabetes, hyperlipidemia presented to ED last evening with right great toe discoloration/foul smell that according to him started about 2 weeks ago when 1 day he noticed that his toenail fell off while he was trying to take off his socks. Patient has diabetic neuropathy and numbness chronically and noticed that her great toe is increasingly getting discolored. Upon evaluation in ED, it was noted that he had developed gangrene of right great toe. Workup also revealed elevated ESR/CRP along with leukocytosis and x-ray finding concerning for acute osteomyelitis of right great toe. Case was discussed with podiatry who recommended IV antibiotics. Patient started on IV vancomycin and IV Zosyn. Blood cultures were obtained upon arrival. Patient denies any active pain. He will likely need surgical intervention and most likely great toe amputation. He will remain n.p.o. after midnight in anticipation of surgery tomorrow on Sunday. Opioid HPI Opioid Management Most Recent Pain and Opioid Data: Last Pain Scale 2 02/28/24, 11:29 Last Pain Assessment 09/20/24, 17:05 Last ORT Total Score 0 09/20/24, 16:05 Last ORT Risk Category Low Risk 09/20/24, 16:05 Review of Systems ROS Status of ROS 10 or more systems reviewed and unremarkable except as noted in history and below [facility] Medical History High cholesterol ?E78.00 - Pure hypercholesterolemia, unspecified (ICD-10) Diabetes ?E11.9 - Type 2 diabetes mellitus without complications (ICD-10) Hypertension ?I10 - Essential (primary) hypertension (ICD-10) Social History Within the past year, how many standard drinks containing alcohol did you have on a typical day: 1 or 2 Total score: 0 Score interpretation: A score less than 4 is consistent with normal alcohol consumption. Second hand tobacco smoke exposure: No Non-prescribed substance use: denies use Known occupational exposures/hazards: No Do you want help with school or training: No Are you now , , , , never or living with a partner: In a typical week, how many times do you talk on the telephone with family, friends, or neighbors: 3 or more times per week Little interest or pleasure in doing things: not at all Feeling down, depressed, or hopeless: not at all Feel stressed/tense/nervous/anxious/difficulty sleeping: only a little Meds Home Medications and Allergies Home Medications ?Medication ?Instructions ?Recorded ?Confirmed ?Type dapagliflozin propanediol 10 mg 10 mg PO DAILY 02/28/24 09/20/24 History tablet (Farxiga) insulin aspart 1 sliding scale dose subcut DAILY 02/28/24 09/20/24 History (niacinamide)(U-100) 100 unit/mL(3 mL) subcutaneous pen (Fiasp FlexTouch U-100 Insulin) lisinopril 5 mg tablet 5 mg PO DAILY 02/28/24 09/20/24 History metformin 500 mg tablet,extended 1,000 mg PO DAILY 02/28/24 09/20/24 History release 24 hr rosuvastatin 40 mg tablet 40 mg PO DAILY 02/28/24 09/20/24 History semaglutide 0.25 mg or 0.5 mg (2 0.5 mg subcut .weekly 02/28/24 09/20/24 History mg/3 mL) subcutaneous pen injector (Ozempic) Allergies Allergy/AdvReac Type Severity Reaction Status Date / Time No Known Drug Allergies Allergy Verified 09/20/24 11:54 Exam Constitutional Vital Signs, click to edit/add: Last Vital Signs Temp 98.6 F 09/21/24 07:38 Pulse 80 09/21/24 07:38 Resp 18 09/21/24 08:14 BP 110/74 09/21/24 07:38 Pulse Ox 97 09/21/24 11:26 O2 Del Method Room Air 09/21/24 11:26 Documenting provider has reviewed patient's vital signs: yes Common normals: no apparent distress and oriented x3 General appearance: cooperative HENMT Common normals: normocephalic and head/scalp atraumatic Head and scalp: normocephalic and atraumatic Eye Common normals: conjunctivae normal and no scleral icterus Conjunctiva: conjunctiva(e) normal Respiratory Common normals: normal respiratory effort and clear to auscultation bilaterally Effort & inspection: able to speak in complete sentences Auscultation: clear to auscultation bilaterally Cardio Common normals: regular rate, S1 normal heart sound and S2 normal heart sound Rate: regular rate Heart sounds: S1 normal and S2 normal GI Common normals: Normal to inspection, nondistended, normoactive bowel sounds present, soft to palpation, non-tender and no hepatosplenomegaly Palpation: soft and no hepatosplenomegaly Extremity Other: Foul smell. Wet/dry gangrene of righy great toe. Neuro Common normals: oriented x3, moves all extremities and no focal motor deficits Psych Common normals: mental status grossly normal, denies hallucinations, denies homicidal ideation and denies suicidal ideation Results Labs Labs: Short CBC 09/20/24 09/21/24 Range/Units 12:15 05:55 WBC 11.9 H 11.9 H (4.0-11.0) 10^3/uL Hgb 14.0 11.6 L (14.0-18.0) g/dL Hct 41.1 L 34.2 L (42.0-54.0) % Plt Count 401 314 (150-450) 10^3/uL BMP 09/20/24 09/21/24 12:15 05:55 Sodium 132 L 137 Potassium 4.5 4.6 Chloride 99 103 Carbon Dioxide 28.1 24.5 BUN 18.0 24.0 H Creatinine 1.37 H 1.18 Glucose 130 H 106 Calcium 9.6 8.8 Liver Function 09/20/24 09/21/24 Range/Units 12:15 05:55 Total Bilirubin 0.7 0.5 (0.2-1.0) mg/dL AST 28 21 (15-37) U/L ALT 25 16 (16-63) U/L Alkaline Phosphatase 101 79 (46-116) U/L Albumin 2.4 L 1.9 L (3.4-5.0) g/dL Assessment and Plan Assessment and Plan (1) Acute osteomyelitis of toe of right foot: Assessment and Plan: Evidence of osteomyelitis on x-ray. Patient has gangrene clinically and will likely need toe amputation. Started on IV vancomycin and IV Zosyn. Podiatry consulted. (2) Dry gangrene: Assessment and Plan: Gangrene of right great toe and osteomyelitis on x-ray. On IV antibiotics. Podiatry consulted. (3) Diabetes: Assessment and Plan: Sliding scale insulin while inpatient. Patient should not be on Farxiga as outpatient because of high risk of amputation associated with SGLT2 inhibitors Qualifiers: Diabetes mellitus type: type 2 Diabetes mellitus penitentiary insulin use: with penitentiary use Diabetes mellitus complication status: with neurologic complications Diabetes mellitus complication detail: with polyneuropathy Qualified Code(s): E11.42 - Type 2 diabetes mellitus with diabetic polyneuropathy; Z79.4 - [facility] (current) use of insulin (4) Hypertension: Assessment and Plan: Continue with lisinopril. Blood pressure stable. Qualifiers: Hypertension type: primary hypertension Qualified Code(s): I10 - Essential (primary) hypertension (5) High cholesterol: Assessment and Plan: Continue with rosuvastatin. Plan Continue with IV antibiotics. Podiatry consulted. Will order PVR/ABIs to ensure no significant peripheral vascular disease. Will make n.p.o. after midnight for possible surgical intervention.
[2024-09-22 05:55] LABS: Basophils Absolute Auto 0.1 10^3/uL (0.0-0.1); Basophils Percent Auto 0.6 % (0.2-2.0); Eosinophils Percent Auto 0.2 % (0.9-7.0); Hematocrit 33.8 % (42.0-54.0); Hemoglobin 11.8 g/dL (14.0-18.0); Immature Granulocytes Abs Auto 0.04 10^3/uL (0.00-0.03); Immature Granulocytes Pct Auto 0.4 % (0.0-0.5); Lymphocytes Absolute Auto 1.7 10^3/uL (1.2-3.8); Lymphocytes Percent Auto 17.7 % (20.5-60.0); Mean Corpuscular HGB Conc 34.9 g/dL (29.9-35.2); Mean Corpuscular Hemoglobin 31.3 pg (25.9-34.0); Mean Corpuscular Volume 89.7 fL (80.0-94.0); Mean Platelet Volume 9.6 fL (9.5-13.5); Monocytes Absolute Auto 1.2 10^3/uL (0.3-0.8); Monocytes Percent Auto 12.8 % (1.7-12.0); Neutrophils Absolute Auto 6.6 10^3/uL (1.4-6.5); Neutrophils Percent Auto 68.3 % (43.0-75.0); Platelet Count 334 10^3/uL (150-450); Red Blood Count 3.77 10^6/uL (4.70-6.10); Red Cell Distribution Width 11.1 % (11.0-15.0); White Blood Count 9.6 10^3/uL (4.0-11.0)
[2024-09-22 06:00] VITALS: BP 136/68; PULSE 80; TEMP 36.9; O2SAT 95
[2024-09-22] MEDS: PIPERACILLIN SODIUM/TAZOBACTAM 3.375 GM in 0.9 % SODIUM CHLORIDE 50 ML IV ×3 (06:00→20:54)
[2024-09-22 06:14] LABS: Alanine Aminotransferase 15 U/L (16-63); Albumin Globulin Ratio 0.4; Albumin Level 1.9 g/dL (3.4-5.0); Alkaline Phosphatase 74 U/L (46-116); Anion Gap 15.7; Aspartate Amino Transferase 20 U/L (15-37); BUN Creatinine Ratio 21.2; Bilirubin Total 0.4 mg/dL (0.2-1.0); Calcium 8.7 mg/dL (8.5-10.1); Carbon Dioxide 23.7 mmol/L (21.0-32.0); Chloride 102 mmol/L (98-107); Estimated GFR (African America >60 (>=60 mL/min/1.73m^2); Estimated GFR (Non-African Ame >60 (>=60 mL/min/1.73m^2); Globulin 5.4 g/dL; Glucose 87 mg/dL (74-106); Potassium 4.4 mmol/L (3.5-5.1); Sodium 137 mmol/L (136-145); Total Protein 7.3 g/dL (6.4-8.2)
--- NOTE | 2024-09-22 06:53 | P.PN_ITS ---
Progress Note: Subjective Subjective Interval history: Patient without specific complaints this morning Exam Constitutional Vital Signs, click to edit/add: Last Vital Signs Temp 98.5 F 09/22/24 06:00 Pulse 80 09/22/24 06:00 Resp 18 09/22/24 06:00 BP 136/68 09/22/24 06:00 Pulse Ox 95 09/22/24 06:00 O2 Del Method Room Air 09/22/24 06:00 Documenting provider has reviewed patient's vital signs: yes Common normals: no apparent distress Chest Common normals: inspection of chest normal Respiratory Common normals: normal respiratory effort and no retractions Cardio Common normals: regular rate GI Common normals: Normal to inspection, nondistended, normoactive bowel sounds present Extremity Common normals: abnormal to inspection (Dressing on right foot) Progress Note: Objective Labs Labs: Short CBC 09/22/24 Range/Units 05:35 WBC 9.6 (4.0-11.0) 10^3/uL Hgb 11.8 L (14.0-18.0) g/dL Hct 33.8 L (42.0-54.0) % Plt Count 334 (150-450) 10^3/uL BMP 09/22/24 05:35 Sodium 137 Potassium 4.4 Chloride 102 Carbon Dioxide 23.7 BUN 21.0 H Creatinine 0.99 Glucose 87 Calcium 8.7 Liver Function 09/22/24 Range/Units 05:35 Total Bilirubin 0.4 (0.2-1.0) mg/dL AST 20 (15-37) U/L ALT 15 L (16-63) U/L Alkaline Phosphatase 74 (46-116) U/L Albumin 1.9 L (3.4-5.0) g/dL Progress Note: A&P Assessment and Plan (1) Acute osteomyelitis of toe of right foot: (2) Dry gangrene: Plan Admission findings: Leukocytosis, elevated ESR, hyponatremia, mild elevation in creatinine, severe protein calorie malnutrition with diabetic neuropathy resulting in right great toe gangrene Acute osteomyelitis of toe of right foot with significant leukocytosis: Adjusted antibiotics today, consult to podiatry, will see later today, likely need surgical intervention Dry gangrene: See above Diabetes with diabetic peripheral neuropathy: Accu-Cheks and insulin sliding scale Hypertension: Maintain current medications High cholesterol: Maintain current medications Hyponatremia-improved to normal Acute elevation in creatinine-improved Severe protein calorie malnutrition-diet supplement Admission status: Patient placed in inpatient status, gangrene of toe with osteomyelitis likely bacteremic, antibiotics adjusted today, likely surgical intervention tomorrow, medically necessary treatment will span 2 midnights. Inpatient status
[2024-09-22 07:11] LABS: C Reactive Protein 4.29 mg/dL (<=0.50)
--- NOTE | 2024-09-22 08:37 | CM.NOTE ---
Rounds made with Dr. Islas. Dr. Islas reviews findings with Mr. Rodriguez. Podiatry Consulted.
--- NOTE | 2024-09-22 09:13 | P.CN_ITS ---
Consult Note: HPI Data of Consult Patient: new to practice Consult date: 09/22/24 Requesting Physician: Maurice Islas MD Primary Care Provider: Le Mares MD Consult Narrative Reason for consult: Right diabetic foot infection Narrative: Mr. Rodriguez is a 64M with type 2 diabetes who presented to the ER with a 2-3 week history of right hallux pathology. He relates the toe nail fell off when removing his sock. Since the toe become foul smelling and black in color. At presentation he had significant elevation in inflammatory markers and mild leukocytosis. He has been afebrile and hemodynamically stable. Blood cultures are pending. Xrays revealed cortical changes to the distal phalanx of the hallux with significant vascular calcifications. At bedside, he denies pain and feels systemically well other than mild fatigue. He checks his blood surgars regularly and rarely get above 220. In the mornings prior to breakfast his sugars are <100. He has never seen a vascular surgeon although does have regular cramping and pain in his right thigh at night. He has never had an diabetic foot infection or ulceration before. cc:: CC: Maurice Islas MD Review of Systems ROS Status of ROS 10 or more systems reviewed and unremark able except as noted in history and below [facility] Medical History High cholesterol ?E78.00 - Pure hypercholesterolemia, unspecified (ICD-10) Diabetes ?E11.9 - Type 2 diabetes mellitus without complications (ICD-10) Hypertension ?I10 - Essential (primary) hypertension (ICD-10) Social History Within the past year, how many standard drinks containing alcohol did you have on a typical day: 1 or 2 Total score: 0 Score interpretation: A score less than 4 is consistent with normal alcohol consumption. Second hand tobacco smoke exposure: No Non-prescribed substance use: denies use Known occupational exposures/hazards: No Do you want help with school or training: No Are you now , , , , never or living with a partner: In a typical week, how many times do you talk on the telephone with family, friends, or neighbors: 3 or more times per week Little interest or pleasure in doing things: not at all Feeling down, depressed, or hopeless: not at all Feel stressed/tense/nervous/anxious/difficulty sleeping: only a little Meds Home Medications and Allergies Home Medications ?Medication ?Instructions ?Recorded ?Confirmed ?Type dapagliflozin propanediol 10 mg 10 mg PO DAILY 4 09/20/24 History tablet (Farxiga) insulin aspart 1 sliding scale dose subcut DAILY 02/28/24 09/20/24 History (niacinamide)(U-100) 100 unit/mL(3 mL) subcutaneous pen (Fiasp FlexTouch U-100 Insulin) lisinopril 5 mg tablet 5 mg PO DAILY 02/28/2409/20 History metformin 500 mg tablet,extended 1,000 mg PO DAILY 09/20/24 History release 24 hr rosuvastatin 40 mg tablet 40 mg PO DAILY 02/28/2409/04 History semaglutide 0.25 mg or 0.5 mg (2 0.5 mg subcut .weekly 02/28/24 09/20/24 History mg/3 mL) subcutaneous pen injector (Ozempic) Allergies Allergy/AdvReac Type Severity Reaction Status Date / Time No Known Drug Allergies Allergy Verified 09/20/24 11:54 Exam Narrative Exam Narrative: Derm: right great toe covered with dry eschar to the proximal phalanx. right great toe is malodorous but with no active drainage or bleeding. Mild erythema to the 1st MPJ. All other skin to b/l foot/ankle is intact Vasc: nonpalpable pedal pulses with absent digital hair. FLOATLIGHT POWDER MIXER to toes is 5 secs b/l. No calf pain on squeeze Neuro: absent proective and vibratory sensation MSK: No pain on palpation and no pain out of proportion with ROM of the toes/ankles. Lesser toes b/l with mild reducible contractures. Constitutional Vital Signs, click to edit/add: Last Vital Signs Temp 98.5 F 09/22/24 06:00 Pulse 80 09/22/24 06:00 Resp 18 09/22/24 08:00 BP 136/68 09/22/24 06:00 Pulse Ox 95 09/22/24 06:00 O2 Del Method Room Air 09/22/24 06:00 Results Labs Labs: Short CBC 09/22/24 Range/Units 05:35 WBC 9.6 (4.0-11.0) 10^3/uL Hgb 11.8 L (14.0-18.0) g/dL Hct 33.8 L (42.0-54.0) % Plt Count 334 (150-450) 10^3/uL BMP 09/22/24 05:35 Sodium 137 Potassium 4.4 Chloride 102 Carbon Dioxide 23.7 BUN 21.0 H Creatinine 0.99 Glucose 87 Calcium 8.7 Liver Function 09/22/24 Range/Units 05:35 Total Bilirubin 0.4 (0.2-1.0) mg/dL AST 20 (15-37) U/L ALT 15 L (16-63) U/L Alkaline Phosphatase 74 (46-116) U/L Albumin 1.9 L (3.4-5.0) g/dL Assessment and Plan Assessment and Plan (1) Acute osteomyelitis of toe of right foot: (2) Dry gangrene: (3) Diabetes: Qualifiers: Diabetes mellitus complication detail: with polyneuropathy Diabetes mellitus complication status: with neurologic complications Diabetes mellitus assistant terminal manager insulin use: with fdc use Diabetes mellitus type: type 2 Qualified Code(s): E11.42 - Type 2 diabetes mellitus with diabetic polyneuropathy; Z79.4 - intermediate (current) use of insulin (4) Hypertension: Qualifiers: Hypertension type: primary hypertension Qualified Code(s): I10 - Essential (primary) hypertension (5) High cholesterol: (6) Type 2 diabetes mellitus with gangrene: (7) PAD (peripheral artery disease): (8) Gangrene due to arterial insufficiency: (9) Type 2 diabetes mellitus with diabetic neuropathy, unspecified: (10) Atherosclerosis of [place] arteries of extremities with rest pain, right leg: Plan Mr Rodriguez is a 64M with type 2 diabetes, acute osteomyelitis, gangrene and rest pain. I explained he has a limb threatening issue and he and his seemed to understand the seriousness of his issue. I explained given his acute infection surgery involving right hallux vs 1st ray amputation may require staging given his PAD. I reviewed his labs and xrays with him. I ordered noninvasive vascular studies including ABIs, TBIs, waveforms, segmental pressures and arterial dopplers which hopefully can be done preoperatively - however given the acute infection surgery should not be delayed for these tests. He will also need outpatient consultation with vascular surgery given the rest pain and arterial calcifications noted on plain radiographs Dr Islas (hospitalist) was notified of the plan
--- NOTE | 2024-09-22 09:52 | SWNOTE1 ---
SW met with pt and in room to discuss dc needs. Pt lives at home with and is independent. Pt does not use any DME and has no services coming in at this time. Pt has no anticipated discharge needs. SW to follow as needed.
--- NOTE | 2024-09-22 09:53 | SWNOTE1 ---
Important Message from Medicare reviewed and discussed with patient. Pt. verbalized understanding and signed the form. Original given to patient and copy placed in patient?s chart.
[2024-09-22 10:35] VITALS: O2SAT 97
[2024-09-22] MEDS: VANCOMYCIN HCL 1,000 MG in 0.9 % SODIUM CHLORIDE 250 ML 250 MG IV ×2 (11:07→20:53)
[2024-09-22] MEDS: LISINOPRIL 5 MG TABLET PO (11:43)
[2024-09-22] MEDS: LACTATED RINGER'S SOLUTION 1,000 ML 100 ML IV ×2 (11:43→20:53)
[2024-09-22] MEDS: METFORMIN HCL 500 MG TAB.ER.24H 1000 MG PO (12:14)
[2024-09-22] MEDS: CANAGLIFLOZIN 100 MG TABLET 300 MG PO (12:14)
[2024-09-22 14:00] VITALS: BP 116/78; PULSE 84; TEMP 36.8; O2SAT 96
--- NOTE | 2024-09-22 14:26 | ECG_ITS ---
[facility] Test Date: 2024-09-22 Pat Name: LAN WITT Department: Room: [facility] Gender: Male Topographic Computator: : 1960 Requested By: JOSSE BARAJAS Order Number: [id number] Reading MD: RADHA LAWRENCE M.D. Measurements Intervals [place] Rate: 76 P: 55 MS: 146 QRS: 23 QRSD: 76 T: 47 QT: 368 QTc: 415 Interpretive Statements SINUS RHYTHM Normal ECG Compared to ECG 02/28/2024 09:50:57 No significant changes Electronically Signed On 09-22-2024 17:53:31 EDT by RADHA LAWRENCE M.D.
[2024-09-22 20:00] VITALS: PULSE 69; O2SAT 96
[2024-09-22 20:40] LABS: Vancomycin Trough 18.3 ug/mL (5.0-20.0)
[2024-09-22] MEDS: ENSURE HP 237 ML LIQUID PO (20:53)
[2024-09-22] MEDS: JUVEN PACKET 1 PACKET PO (20:53)
[2024-09-22] MEDS: PROSTAT 15 GM PROTEIN/100 CAL 30 ML LIQUID PACKET PO (20:53)
[2024-09-23] VITALS (8 sets, daily range): BP systolic 99–144; BP diastolic 72–89; PULSE 70–78; TEMP 36.3–36.8; O2SAT 95–98; BMI 23.7
[2024-09-23] MEDS: PIPERACILLIN SODIUM/TAZOBACTAM 3.375 GM in 0.9 % SODIUM CHLORIDE 50 ML IV (04:41)
[2024-09-23 05:46] LABS: Basophils Absolute Auto 0.1 10^3/uL (0.0-0.1); Basophils Percent Auto 0.7 % (0.2-2.0); Eosinophils Percent Auto 0.2 % (0.9-7.0); Hematocrit 34.7 % (42.0-54.0); Hemoglobin 11.9 g/dL (14.0-18.0); Immature Granulocytes Abs Auto 0.03 10^3/uL (0.00-0.03); Immature Granulocytes Pct Auto 0.3 % (0.0-0.5); Lymphocytes Absolute Auto 1.6 10^3/uL (1.2-3.8); Lymphocytes Percent Auto 17.6 % (20.5-60.0); Mean Corpuscular HGB Conc 34.3 g/dL (29.9-35.2); Mean Corpuscular Hemoglobin 30.7 pg (25.9-34.0); Mean Corpuscular Volume 89.7 fL (80.0-94.0); Mean Platelet Volume 9.5 fL (9.5-13.5); Monocytes Absolute Auto 1.4 10^3/uL (0.3-0.8); Monocytes Percent Auto 15.6 % (1.7-12.0); Neutrophils Percent Auto 65.6 % (43.0-75.0); Platelet Count 339 10^3/uL (150-450); Red Blood Count 3.87 10^6/uL (4.70-6.10); White Blood Count 9.1 10^3/uL (4.0-11.0)
[2024-09-23 06:01] LABS: C Reactive Protein 3.19 mg/dL (<=0.50)
[2024-09-23 06:04] LABS: Alanine Aminotransferase 15 U/L (16-63); Albumin Globulin Ratio 0.3; Albumin Level 1.8 g/dL (3.4-5.0); Alkaline Phosphatase 76 U/L (46-116); Anion Gap 14.1; Aspartate Amino Transferase 22 U/L (15-37); BUN Creatinine Ratio 23.4; Bilirubin Total 0.3 mg/dL (0.2-1.0); Chloride 103 mmol/L (98-107); Estimated GFR (African America >60 (>=60 mL/min/1.73m^2); Estimated GFR (Non-African Ame >60 (>=60 mL/min/1.73m^2); Globulin 5.6 g/dL; Glucose 124 mg/dL (74-106); Potassium 4.1 mmol/L (3.5-5.1); Sodium 139 mmol/L (136-145); Total Protein 7.4 g/dL (6.4-8.2)
--- NOTE | 2024-09-23 06:50 | P.PN_ITS ---
Progress Note: Subjective Subjective Interval history: Patient without specific complaints this morning Exam Constitutional Vital Signs, click to edit/add: Last Vital Signs Temp 98.0 F 09/23/24 06:02 Pulse 74 09/23/24 06:02 Resp 18 09/23/24 06:02 BP 144/89 H 09/23/24 06:02 Pulse Ox 95 09/23/24 06:02 O2 Del Method Room Air 09/23/24 06:02 Progress Note: Objective Labs Labs: Short CBC 09/23/24 Range/Units 05:30 WBC 9.1 (4.0-11.0) 10^3/uL Hgb 11.9 L (14.0-18.0) g/dL Hct 34.7 L (42.0-54.0) % Plt Count 339 (150-450) 10^3/uL BMP 09/23/24 05:30 Sodium 139 Potassium 4.1 Chloride 103 Carbon Dioxide 26.0 BUN 22.0 H Creatinine 0.94 Glucose 124 H Calcium 9.0 Liver Function 09/23/24 Range/Units 05:30 Total Bilirubin 0.3 (0.2-1.0) mg/dL AST 22 (15-37) U/L ALT 15 L (16-63) U/L Alkaline Phosphatase 76 (46-116) U/L Albumin 1.8 L (3.4-5.0) g/dL Progress Note: A&P Assessment and Plan (1) Acute osteomyelitis of toe of right foot: (2) Dry gangrene: (3) Diabetes: Qualifiers: Diabetes mellitus type: type 2 Diabetes mellitus manager intermediate insulin use: with group home use Diabetes mellitus complication status: with neurologic complications Diabetes mellitus complication detail: with polyneuropathy Qualified Code(s): E11.42 - Type 2 diabetes mellitus with diabetic polyneuropathy; Z79.4 - long term care pharmacist (current) use of insulin (4) Hypertension: Qualifiers: Hypertension type: primary hypertension Qualified Code(s): I10 - Essential (primary) hypertension (5) High cholesterol: (6) Type 2 diabetes mellitus with gangrene: (7) PAD (peripheral artery disease): (8) Gangrene due to arterial insufficiency: (9) Type 2 diabetes mellitus with diabetic neuropathy, unspecified: (10) Atherosclerosis of [place] arteries of extremities with rest pain, right leg: Plan Admission findings: Leukocytosis, elevated ESR, hyponatremia, mild elevation in creatinine, severe protein calorie malnutrition with diabetic neuropathy resulting in right great toe gangrene Acute osteomyelitis of toe of right foot with significant leukocytosis: Adjusted antibiotics today, consult to podiatry, will see later today, likely need surgical intervention Dry gangrene: See above Diabetes with diabetic peripheral neuropathy: Accu-Cheks and insulin sliding scale Hypertension: Maintain current medications High cholesterol: Maintain current medications Hyponatremia-improved to normal Acute elevation in creatinine-improved Severe protein calorie malnutrition-diet supplement Admission status: Patient placed in inpatient status, gangrene of toe with osteomyelitis likely bacteremic, antibiotics adjusted today, likely surgical intervention tomorrow, medically necessary treatment will span 2 midnights. Inpatient status ?
--- NOTE | 2024-09-23 06:51 | P.DS_ITS ---
DS: Providers Provider Date of admission: 09/20/24 15:55 Primary care physician: Le Mares MD Consults: 09/20/24 16:05 Physical Therapy Eval and Treat Routine Reason for consultation: Ambulatory dysfunction/weakness 09/21/24 08:57 Consult to Podiatry Routine Consulting Provider: Colton Spears Reason for consultation: osteomyelitis DS: Diagnosis Discharge Diagnosis (1) Acute osteomyelitis of toe of right foot: (2) Dry gangrene: (3) Diabetes: Qualifiers: Diabetes mellitus complication detail: with polyneuropathy Diabetes mellitus complication status: with neurologic complications Diabetes mellitus watermelon inspector insulin use: with correction use Diabetes mellitus type: type 2 Qualified Code(s): E11.42 - Type 2 diabetes mellitus with diabetic polyneuropathy; Z79.4 - [facility] (current) use of insulin (4) Hypertension: Qualifiers: Hypertension type: primary hypertension Qualified Code(s): I10 - Essential (primary) hypertension (5) High cholesterol: (6) Type 2 diabetes mellitus with gangrene: (7) PAD (peripheral artery disease): (8) Gangrene due to arterial insufficiency: (9) Type 2 diabetes mellitus with diabetic neuropathy, unspecified: (10) Atherosclerosis of [place] arteries of extremities with rest pain, right leg: Plan Admission findings: Leukocytosis, elevated ESR, hyponatremia, mild elevation in creatinine, severe protein calorie malnutrition with diabetic neuropathy resulting in right great toe gangrene Acute osteomyelitis of toe of right foot with significant leukocytosis: S/p surgical removal Dry gangrene: See above Diabetes with diabetic peripheral neuropathy: Stable Hypertension: Maintain current medications High cholesterol: Maintain current medications Hyponatremia-improved to normal Acute elevation in creatinine-improved Severe protein calorie malnutrition-diet supplement Admission status: Patient placed in inpatient status, gangrene of toe with oste omyelitis likely bacteremic, antibiotics adjusted today, likely surgical intervention tomorrow, medically necessary treatment will span 2 midnights. Inpatient status ? DS: Summary Hospital Course Hospital Course: Patient admitted for increasing swelling in his right great toe, found to have acute gangrene and osteomyelitis of his right great toe, consultation with podiatry, manage his sugars throughout the hospital stay sugars have been excellent control, still has the diabetic peripheral neuropathy, surgical intervention today with amputation of his toe the plan going into the surgery is likely for discharge to home later today assuming no complications with the surgery. Otherwise medically stable creatinine is improved sugars are stable we discharged home in improving condition. Medications see list. Follow-up with podiatry and PCP within the next week. Patient will need a bedside commode, bathroom is upstairs without difficulty getting up and down stairs for the next several weeks, so for patient safety bedside commode Time Spent with Patient Time attestation: Total time spent providing and/or coordinating discharge services: Exam Constitutional Vital Signs, click to edit/add: Last Vital Signs Temp 98.0 F 09/23/24 06:02 Pulse 74 09/23/24 06:02 Resp 18 09/23/24 06:02 BP 144/89 H 09/23/24 06:02 Pulse Ox 95 09/23/24 06:02 O2 Del Method Room Air 09/23/24 06:02 Documenting provider has reviewed patient's vital signs: yes Common normals: no apparent distress Chest Common normals: inspection of chest normal Respiratory Common normals: normal respiratory effort, no retractions and clear to auscultation bilaterally Cardio Common normals: regular rate, regular rhythm and no murmurs GI Common normals: Normal to inspection, nondistended, normoactive bowel sounds present, soft to palpation and non-tender Extremity Common normals: abnormal to inspection (Dressing on right foot) DS: Data Data Completed and Pending Labs on day of discharge: Labs from last 24 hours 09/23/24 09/22/24 09/22/24 05:30 19:56 05:35 WBC 9.1 RBC 3.87 L Hgb 11.9 L Hct 34.7 L MCV 89.7 MCH 30.7 MCHC 34.3 RDW 11.0 Plt Count 339 MPV 9.5 Neut % (Auto) 65.6 Lymph % (Auto) 17.6 L Ector % (Auto) 15.6 H Eos % (Auto) 0.2 L Baso % (Auto) 0.7 Neut # (Auto) 6.0 Lymph # (Auto) 1.6 Ector # (Auto) 1.4 H Eos # (Auto) 0.0 Baso # (Auto) 0.1 Abs Immat Gran (auto) 0.03 Imm/Tot Granulo (auto) 0.3 Sodium 139 Potassium 4.1 Chloride 103 Carbon Dioxide 26.0 Anion Gap 14.1 BUN 22.0 H Creatinine 0.94 Est GFR ( Amer) >60 Est GFR (Non-Af Amer) >60 BUN/Creatinine Ratio 23.4 Glucose 124 H Calcium 9.0 Total Bilirubin 0.3 AST 22 ALT 15 L Alkaline Phosphatase 76 C-Reactive Protein 3.19 H 4.29 H Total Protein 7.4 Albumin 1.8 L Globulin 5.6 Albumin/Globulin Ratio 0.3 Vancomycin Trough 18.3 Preliminary micro results at discharge 09/20/24 14:27 Blood Culture Result 2 - Preliminary Blood NO GROWTH AT 36-48 HOURS. FINAL TO FOLLOW. 09/20/24 12:15 Blood Culture Result 1 - Preliminary Blood NO GROWTH AT 36-48 HOURS. FINAL TO FOLLOW. Discharge Plan Discharge Disposition: Home, Self-Care Discharge Medications: New ciprofloxacin HCl [Cipro] 500 mg tablet 500 mg PO BID Qty: 20 0RF doxycycline monohydrate 100 mg capsule 100 mg PO BID 10 Days Qty: 20 0RF Continued metformin 500 mg tablet extended release 24 hr 1,000 mg PO DAILY dapagliflozin propanediol [Farxiga] 10 mg tablet 10 mg PO DAILY Fiasp FlexTouch U-100 Insulin 100 unit/mL (3 mL) insulin pen 1 sliding scale dose SUBCUT DAILY rosuvastatin 40 mg tablet 40 mg PO DAILY lisinopril 5 mg tablet 5 mg PO DAILY Ozempic 0.25 mg or 0.5 mg (2 mg/3 mL) pen injector 0.5 mg SUBCUT .weekly Print Language: Turkmen Forms: Portal Instructions
--- NOTE | 2024-09-23 08:15 | CM.NOTE ---
Rounds made with Dr. Islas. Surgery today with Podiatry. Await plan of care.
--- NOTE | 2024-09-23 08:18 | P.ORON_ITS ---
Brief Operative Note Date of procedure: 09/23/24 Pre-op diagnosis general: Right diabetic foot infection with acute osteomyelitis of hallux, right hallux ulcer with bone necrosis, peripheral arterial disease with rest pain and gangrene, type 2 diabetes with PAD and foot ulcer Post-op diagnosis: same as pre-op Procedure: Procedure performed: Delayed primary closure of wound right foot with incision/excision of nonviable/infected bone, peripheral nerve block of deep peroneal, superficial peroneal and medial plantar nerves, and application of short leg splint -all procedures were performed on the right foot Indications for procedure: Please see consultation note for details but in short Mr. Rodriguez is a 64-year-old male with type 2 diabetes, peripheral arterial disease, foot ulcer with bone necrosis and acute osteomyelitis who was admitted on 09/20 for right diabetic foot infection. He has remained hemodynamically stable and had no acute events overnight. He did undergo arterial duplex yesterday which shows mild atherosclerotic disease with no focal stenosis. Arterial calcifications are noted on plain radiographs. Mr. Rodriguez and his family were educated yesterday as well as preoperatively regarding the seriousness of his issue, specifically that he has a limb threatening issue and the goal of surgery today is to clear infection thereby preserving the function his right lower extremity and preventing the need for major amputation Intraoperative findings: Malodorous dry eschar circumferentially around the right hallux to the level of the proximal phalanx with an ulceration at the tip of the hallux with bone exposure. Bone of the distal phalanx is discolored and soft and overall obviously infected. No silvio purulence but necrotic tissue to the level of the IP J and slightly proximal. Bone quality of the distal aspect of the proximal phalanx was questionable and was excised to healthy appearing soft tissue and bone. Bleeding was overall sluggish and consistent with PAD. Closure was obtained without tension Procedure in detail: Patient was identified in preoperative holding by myself which time correct side and site were marked and consent was obtained. Patient was brought back to the operating theater placed onto the table in a supine position. No additional antibiotics were given as patient is receiving broad- spectrum antibiotics on the floor. IV sedation was administered in the right foot was prepped and draped in usual sterile fashion with a thigh tourniquet which was not inflated during the procedure. Formal timeout was performed and local anesthesia was administered as a standard first ray block utilizing 10 cc of 1% lidocaine plain and 0.5% Marcaine plain. Utilizing a 15 blade all eschar and necrotic tissue was excised which included the distal phalanx. The head of the proximal phalanx was questionable and therefore was debrided with sagittal saw and rongeurs until healthy bleeding bone was noted on the field. The flexor tendon was then transected proximally. The surgical site was irrigated with copious saline and utilizing a clean rongeur a proximal bone specimen was obtained to be sent to microbiology. The wound was then closed in a single layer meticulously without tension. Then a dry sterile dressing consisting of Xeroform, 4 x 4's and Kerlix were applied followed by a multilayer modified Adams posterior splint. Patient tolerated the procedure well and was transferred to the recovery room with vital signs stable. Postoperative plan: Patient may be discharged home when medically stable as determined by the hospitalist. Partial protected weightbearing to the right heel with the aid of crutches/walker Rest and elevation were emphasized to the patient and family Patient may be discharged on oral antibiotics: Bactrim and Augmentin for 2 weeks Mr. Rodriguez is to follow-up with Dr. Culver on in the wound center He should also follow-up with de/Dulce Steiner PA-c for post op visit next week Implants: None Anesthesia: MAC and local Surgeon: Colton Spears Estimated blood loss (mL): 25 Pathology: other (right hallux to pathology, proximal/clean bone specimen sent to micro) Condition: stable Disposition: PACU
[2024-09-23] MEDS: LIDOCAINE HCL 1% 100 MG/10 ML MDV INJ (08:57)
[2024-09-23] MEDS: BUPIVACAINE HCL 0.5% PF 50 MG/10 ML VIAL INJ (08:57)
[2024-09-23] MEDS: VANCOMYCIN HCL 1,000 MG VIAL 1000 MG TOPICAL (09:16)
--- NOTE | 2024-09-23 09:33 | XR_ITS ---
The [address] [address] Patient Name: LAN WITT MRN: [id number] date: 1960 Sex: M Assigned Patient Location: [place] Current Patient Location: [place] Accession/Order Number: [id number] Exam Date: 09/23/2024 10:54 Report Date: 09/23/2024 10:55 At the request of: MAYRA JAQUEZ DPSaud Procedure: XR foot RT min 3V XR foot RT min 3V 09/23/2024 10:34 AM SIGNS AND SYMPTOMS: ^osteomyelitis right hallux ^Y PROTOCOL: Frontal, lateral, and oblique radiographs of the right foot COMPARISON: 09/20/2024 FINDINGS: There has been interval amputation of the great toe. There is a remote posttraumatic deformity of the fifth metatarsal. Vascular calcifications are present in the soft tissues. Degenerative changes are noted at the tarsometatarsal junctions. XR/XR foot RT min 3V IMPRESSION: Interval amputation of the great toe with a similar remote posttraumatic deformity of the fifth metatarsal. Impression dictated by: Don Blackwell M.D. 09/23/2024 10:55 AM Dictation Location: [facility] Electronically authenticated by: [id number] Y Date: 09/23/2024 10:55
[2024-09-23] MEDS: LACTATED RINGER'S SOLUTION 1,000 ML 100 ML IV (10:24)
[2024-09-23] MEDS: VANCOMYCIN HCL 1,000 MG in 0.9 % SODIUM CHLORIDE 250 ML 250 MG IV (10:24)
--- NOTE | 2024-09-23 10:39 | SWNOTE1 ---
Pt's stopped SW in [facility]. She had questions about DME that is covered by Medicare. She voiced that pt will need walker and bedside commode. Pt's son present as well. She voiced the bathroom is on the second floor and that is why they will need commode. SW did let them know that Medicare will only cover one DME every 5 years. Pt's family decided they wanted SW to try and get bedside commode. SW to message doctor. ROCKY messaged Dr. Islas in regards to bedside commode.
[2024-09-23] MEDS: METFORMIN HCL 500 MG TAB.ER.24H 1000 MG PO (13:09)
[2024-09-23] MEDS: CANAGLIFLOZIN 100 MG TABLET 300 MG PO (13:09)
[2024-09-23] MEDS: JUVEN PACKET 1 PACKET PO (13:09)
[2024-09-23] MEDS: LISINOPRIL 5 MG TABLET PO (13:09)
[2024-09-23] MEDS: ENOXAPARIN SODIUM 40 MG/0.4 ML SYRINGE SUBQ (13:10)
[2024-09-23] MEDS: PROSTAT 15 GM PROTEIN/100 CAL 30 ML LIQUID PACKET PO (13:10)
--- NOTE | 2024-09-23 13:25 | SWNOTE1 ---
SW faxed script, face to face documentation, and face sheet to [facility] for bedside commode.
--- NOTE | 2024-09-23 14:47 | SWNOTE1 ---
SW spoke to Minerva at [facility] and the bedside commode has been approved by insurance. SW to let pt know.
--- NOTE | 2024-09-24 11:27 | CM.DCFOLLOWU ---
Person spoke with:patient How are you feeling?well How is your pain?no pain Did you understand your discharge instructions?yes Do you have any questions about your discharge instructions?no Were you given any prescriptions at discharge?yes Were you able to get your prescriptions filled?yes Do you understand how to take your medications as ordered?yes Do you have any questions about your follow up appointment and do you plan to keep your follow up appointment?no questions, will follow up Is there anything else that you would like to discuss?no Questions/Comments/Concerns/Other:none
== END 2024-09-23 15:14 | disposition home or self-care (01) | DRG 617 ==
LOC: ER 14:55 → MS 16:04
PROVIDERS: Internal Medicine; Podiatrist Foot & Ankle Surgery; Admitting Provider Family Medicine; Emergency Provider Emergency Medicine; PCP Family Medicine; Visit Provider Family Medicine
PROC: 0Y6P0Z1 Detachment at Right 1st Toe, High, Open Approach (ICD-10-PCS; principal; 2024-09-23 08:00)
DX: E11.69 Type 2 diabetes mellitus with other specified complication (principal); E11.52 Type 2 diabetes mellitus with diabetic peripheral angiopathy with gangrene; M86.171 Other acute osteomyelitis, right ankle and foot; I70.261 Atherosclerosis of native arteries of extremities with gangrene, right leg; E87.1 Hypo-osmolality and hyponatremia; E44.0 Moderate protein-calorie malnutrition; L97.514 Non-pressure chronic ulcer of other part of right foot with necrosis of bone; E11.42 Type 2 diabetes mellitus with diabetic polyneuropathy; L03.031 Cellulitis of right toe; I10 Essential (primary) hypertension; E78.00 Pure hypercholesterolemia, unspecified; Z79.84 Long term (current) use of oral hypoglycemic drugs; Z79.4 Long term (current) use of insulin; Z79.899 Other long term (current) drug therapy; Z79.85 Long-term (current) use of injectable non-insulin antidiabetic drugs; Z68.23 Body mass index [BMI] 23.0-23.9, adult
CPT/HCPCS: 36415; 73630; 80053; 80202; 82948; 85025; 85652; 86140; 87040; 87070; 87075; 87076; 87102; 87116; 87176; 87205; 87206; 88305; 88311; 93005; 93925; 94761; 96365; 96375; 97161; 99285; 99999; J0665; J1100; J1650; J2250; J2405; J2543; J2704; J3010; J3370

== ENCOUNTER 2024-10-01 13:06 | Outpatient (OUT) | payer MEDICARE, SELFPAY ==
--- OUTSIDE RECORDS SUMMARY | 2024-09-25 11:00 | XMS_ITS | Encounter Summary ---
Author Organization [employer] [facility] Address [id number] [address] [place] [address] Care Team Providers Care Food Aide Name Role Phone No Pcp, No Pcp Primary Care Provider Unavailabl e Reason for Visit * Reason Comments Gangrene, PAD. Per Dr. Regan infante pt to be seen * Consultation (Routine) - Pending Review Specialty Diagnoses / Procedures Referred By Contac t Referred To Contact Vascular Surgery Diagnoses PAD (peripheral artery disease) Gangrene ([facility]) Colton Spears, DPSaud [address] [place] [address] [place] [address] Phone: tel: fax: Jamil Culver MD [address] [place] [id number] Phone: tel: fax: Referral ID Status Reason Start Date Expiration Date Visits Requested Visits Authorized [id number] Pending Review Specialty Services Required 09/23/2024 09/23/2025 1 1 Encounter Details Date Type Department Care Team (Late st Contact Info) Description 09/25/2024 11:00 AM EDT Office Visit [facility] [address] [place] [phone] Jamil Culver MD [address] [facility] [place] [address] Critical limb ischemia of right lower extremity with gangrene (CMS-HCC) (Primary Dx); PAD (peripheral artery disease); Gangrene (CMS-HCC) Social History Tobacco Use Types Packs/Day Years Used Date Smoking Tobacco: Former Alcohol Use Standard Drinks/Week Comments Yes 12 (1 standard drink = 0.6 oz pu re alcohol) Childcare Answer Date Recorded Childcare Unknown 10/16/2018 Employment Answer Date Recorded Employment Unknown 10/16/2018 Hunger Screening Answer Date Recorded Within the past 12 months we worried whether our food would run out before we got money to buy more. Never True 04/11/2024 Within the past 12 months th e food we bought just didn't last and we didn't have money to get more. Never True 04/11/2024 Purpose - Life Answer Date Recorded Purpose and direction in life Unknown Sex and Gender Information Value Date Recorded Sex Assigned at Not on file Legal Sex Male 11:42 AM EDT Gender Identity Not on file Sexual Orientation Not on file documented as of this encounter Last Filed Vital Signs Vital Sign Reading Time Taken Comments Blood Pressure 98/68 09/25/2024 10:48 AM EDT Pulse 83 09/25/2024 10:48 AM EDT Temperature 36.3 C (97.3 F) 09/25/2024 10:48 AM EDT Respiratory Rate - - Oxygen Saturation 99% 09/25/2024 10:48 AM EDT Inhaled Oxygen Concentration - - Weight 72.2 kg (159 lb 2.8 oz) 09/25/2024 10:48 AM EDT Height 175.3 cm (5' 9 ) 09/25/2024 10:48 AM EDT Body Mass Index 23.51 09/25/2024 10:48 AM EDT documented in this encounter Progress Notes * Jamil Culver MD - 09/25/2024 11:00 AM EDT Images from the original note were not included. To: NO PCP, NO PCP HPI: Jassi Rodriguez is a 64 y.o. male with Right great toe gangrene status post amputation. He sent to us with evidence of tibial occlusive disease. He has longstanding diabetes he does not smoke.He is on atorvastatin he is not on aspirin.. Review of Systems: Review of Systems Constitutional: Negative. HENT: Negative. Respiratory: Negative. Cardiovascular: Negative. Gastrointestinal: Negative. Endocrine: Negative. Genitourinary: Negative. Musculoskeletal: Negative. Skin: Negative. Neurological: Negative. Hematological: Negative. Medications: Current Outpatient Medications on File Prior to Visit Medication Sig Dispense Refill ciprofloxacin HCl (CIPRO) 500 mg tablet Take 1 tablet (500 mg total) by mouth in the morning and 1 tablet (500 mg total) before bedtime. dapagliflozin propanediol (FARXIGA) 10 mg tablet Take 1 tablet (10 mg total) by mouth in the morning. doxycycline (MONODOX) 100 mg capsule Take 1 capsule (100 mg total) by mouth in the morning and 1 capsule (100 mg total) before bedtime. insulin aspart, niacinamide, 100 unit/mL (3 mL) insulin pen metFORMIN XR (GLUCOPHAGE XR) 500 mg 24 hr tablet Take 1 tablet (500 mg total) by mouth daily with breakfast. rosuvastatin (CRESTOR) 40 mg tablet Take 1 tablet (40 mg total) by mouth in the morning. semaglutide (OZEMPIC SUBQ) Inject under the skin See Admin Instructions. cyclobenzaprine (FLEXERIL) 10 mg tablet Take 1 tablet (10 mg total) by mouth 2 (two) times a day asneeded for muscle spasms. (Patient not taking: Reported on 09/25/2024) 10 tablet 0 insulin glargine (LANTUS) 100 unit/mL injection Inject 0.55 mL (55 Units total) under the skin nightly. (Patient not taking: Reported on 09/25/2024) lidocaine (LIDODERM) 5 % Place 1 patch on the skin daily. Remove & Discard patch within 12 hours or as directed by MD (Patient not taking: Reported on 09/25/2024) 30 patch 0 lisinopriL (PRINIVIL,ZESTRIL) 5 mg tablet Take 1 tablet (5 mg total) by mouth in the morning. OXcarbazepine (TRILEPTAL) 150 mg tablet Take 1 tablet (150 mg total) by mouth in the morning and 1 tablet (150 mg total) before bedtime. (Patient not taking: Reported on 09/25/2024) sodium chloride 0.9 % injection 10 mL by intravenous push route as needed. (Patient not taking: Reported on 09/25/2024) No current facility-administered medications on file prior to visit. Past Medical History: Past Medical History: Diagnosis Date Diabetes mellitus type 2, controlled (CMS-HCC) Hyperlipidemia Hypertension Past Surgical History: No past surgical history on file. Social and Family History: Social History Socioeconomic History Marital status: Spouse name: Not on file Number of children: Not on file Years of education: Not on file Highest education level: Not on file Occupational History Not on file Tobacco Use Smoking status: Former Smokeless tobacco: Not on file Substance and Sexual Activity Alcohol use: Yes Alcohol/week: 12.0 standard drinks of alcohol Types: 12 Cans of beer per week Drug use: No Sexual activity: Not on file Other Topics Concern Not on file Social History Narrative Not on file Social Drivers of Health Financial Resource Strain: Not on file Food Insecurity: No Food Insecurity (04/11/2024) Hunger Screening Food Insecurity - Worry: Never True Food Insecurity - Inability: Never True Transportation Needs: Not on file Physical Activity: Not on file Stress: Not on file Social Connections: Not on file Interpersonal Safety: Not on file Housing Instability: Not on file Family History Problem Relation Age of Onset Diabetes Mother Recent Labs: Recent and relative labs were reviewed and interpreted and contributed to the assessment and plan below. Vitals: BP 98/68 (BP Site: Right Arm, BP Postition: Sitting, BP CUFF SIZE: M (9-13 inches)) Pulse 83 Temp 36.3 ??C (97.3 ??F) (Temporal) Ht 175.3 cm (5' 9 ) Wt 72.2 kg (159 lb 2.8 oz) SpO2 99% BMI 23.51 kg/m?? Body mass index is 23.51 kg/m??. Physical Exam: Physical Exam Constitutional: Appearance: Normal appearance. HENT: Head: Normocephalic and atraumatic. Mouth/Throat: Mouth: Mucous membranes are moist. Eyes: Extraocular Movements: Extraocular movements intact. Pupils: Pupils are equal, round, and reactive to light. Cardiovascular: Rate and Rhythm: Normal rate and regular rhythm. Pulmonary: Effort: Pulmonary effort is normal. Breath sounds: Normal breath sounds. Abdominal: General: Abdomen is flat. Bowel sounds are normal. Palpations: Abdomen is soft. Musculoskeletal: General: Normal range of motion. Cervical back: Normal range of motion. Skin: General: Skin is warm and dry. Neurological: General: No focal deficit present. Mental Status: He is alert and oriented to person, place, and time. Mental status is at baseline. Psychiatric: Mood and Affect: Mood normal. Behavior: Behavior normal. Thought Content: Thought content normal. Judgment: Judgment normal. Recent testing: Duplex ultrasound of bilateral lower extremity Assessment and Plan: Problem List Critical limb ischemia of right lower extremity with gangrene ([facility]) - Primary Current Assessment & Plan He has the duplex ultrasound that shows tibial occlusive disease in the right lower extremity. His foot looks chronically ischemic. Will get PVR and plan to do right lower extremity angiogram and intervention. Jassi was seen today for gangrene, pad. per dr. spears requesting pt to be seen . Diagnoses and all orders for this visit: Critical limb ischemia of right lower extremity with gangrene ([facility]) PAD (peripheral artery disease) - [facility] [place] Gangrene ([facility]) - [facility] [place] Jamil Culver MD, RADHA, RPVI, FSVS, FACS [facility] This note was created with the assistance of a speech recognition program. While intending to generate a timely document that accurately reflects the content of the visit, no guarantee can be provided that every grammatical or spelling mistake has been or will be identified or corrected. Thank you for your understanding. documented in this encounter Miscellaneous Notes * Assessment & Plan Note - Jamil Culver MD - 09/25/2024 11:23 AM EDT Associated Problem(s): Critical limb ischemia of right lower extremity with gangrene ([facility]) He has the duplex ultrasound that shows tibial occlusive disease in the right lower extremity. His foot looks chronically ischemic. Will get PVR and plan to do right lower extremity angiogram and intervention. documented in this encounter Plan of Treatment Not on file documented as of this encounter Goals Goal Patient Goal Type Associated Problems Recent Progress Patient-Stated? Author dc to home General Yes Camille Celaya, RN Note: Evaluation of progress towards goal: Patients goal is to discharge to home. documented as of this encounter Visit Diagnoses Diagnosis Critical limb ischemia of right lower extremity with gangrene ([facility])- Primary PAD (peripheral artery disease) Unspecified peripheral vascular disease Gangrene ([facility]) Gangrene documented in this encounter Care Teams Food Aide Relationship Specialty Start Date End Date No Pcp, [place] [id number] PCP - General Family Medicine 04/11/24 documented as of this encounter
--- OUTSIDE RECORDS SUMMARY | 2024-09-26 07:12 | XMS_ITS | Continuity of Care Document ---
Author Organization [facility] Address [address] [place] [address] Phone Care Team Providers Care Refrigerator Repairman Name Role Phone Colton Spears DPM Attending Provider [phone] Care Teams Visit Care Team Team Status: Active Member Role Status Dates Francisco Walters NP-C Primary Care Provider Active Start: September 20, 2024 Krys Hummel MD Attending Provider Active Sta rt: September 20, 2024 Visit Care Team Team Status: Active Member Role Status Dates Francisco Walters NP-C Primary Care Provider Active Start: September 21, 2024 Shaikh Shaji MD Attending Provider Active Sta rt: September 21, 2024 Visit Care Team Team Status: Active Member Role Status Dates Francisco Walters CASH MANAGEMENT ASSOCIATE-C Primary Care Provider Active Start: September 22, 2024 Shaikh Shaji MD Attending Provider Active Sta rt: September 22, 2024 Patient Care Team Team Status: Active Member Role Status Dates Francisco Walters CASH MANAGEMENT ASSOCIATE-C Primary Care Provider Active Start: September 23, 2024 Shaikh Shaji MD Attending Provider Active Sta rt: September 23, 2024 Patient Care Team Team Status: Inactive Member Role Status Dates Colton Spears DPM MS Attending Provider Active Start: September 23, 2024 End: September 23, 2024 Chief Complaint and Reason for Visit Chief Complaint Admit Date Unknown September 23, 2024 9:38a m Allergies, Adverse Reactions, Alerts No known allergies Social History Smoking Status Status Start Date End Date Date of Observa tion Ex-smoker (finding) September 10, 2023 8:16am Observation Status Observation Response Date of Response Patient Sex Male September 24, 2024 1 2:06am Assigned Sex Male 1960 Family History Relationship Condition Age at Onset Recorded Date/T wilber brother Diabetes mellitus Unknown father Malignant neoplasm Unknown Unknown mother Unknown Diabetes mellitus Unknown Problems Active Problems Medical Problem Onset Date Status Comments Persistent albuminuria Active [facility] 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 insulin Active Type 2 diabetes mellitus wit h hyperglycemia Active Broken ribs Active Patient states has 3 cracked ribs, fell first week April 2024 Dietary counseling and surveillance Activ e Hyperlipidemia Active BMI 25.0-25.9,adult Active HTN (hypertension) Active Vitamin D deficiency Active Medications Medication Status Dose Units Route Directions Qty Days St art Date Stop Date End Date Instructions Flash Glucose Scanning [place] (Freestyle Miladys 2 [place] [facility] [place]cont inued 0 .MEDSUPPLY 1 September 07, 2023 12:00a m September 07, 2023 2:01p m As directed Flash Glucose Scanning [place] (Freestyle Miladys 2 [place]) [facility] [place] Active 0 .MEDSUPPLY 1 September 07, 2023 1:58pm As directed to monitor blood sugar Flash Glucose Sensor (Freestyle Miladys 2 Sensor) kit Discont inued 0 KIT .MEDSUPPLY er 2023 1:00am Novem viji 2023 10:37 am As directed Change every 14 Days Flash Glucose Sensor (Freestyle Miladys 2 Sensor) kit Discont inued 0 KIT .MEDSUPPLY b er 2023 10:37a m Febru [email or web address] 9:51a m As directed Change every 14 Days Insulin Lispro-Aabc (Mckennaumjerzy [place]ale[place] U-200 Insulin) 200 unit/mL (3 mL) insulin pen Discont inued 1 slidin g scale dose SUBCUT Use as Directed 30 2024 1:00am Febru jennie 2024 9:53a m ISS 1:40 ICR 1:10 ACHS TID. Expect up to 40 u per day Flash Glucose Sensor (Freestyle Miladys 2 Sensor) kit Discont inued EACH .ROUTE .MEDSUPPLY 1 September 05, 2023 12:00a m Novem viji 2023 10:36 am As directed Semaglutide (Ozempic) 0.25 mg or 0.5 mg (2 mg/3 mL) pen injector Discont inued MG SUBCUT September 05, 2023 12:00a m September 10, 2023 8:47a m Insulin Aspart U-100 (Novolog Flexpen U-100 Insulin) 100 unit/mL (3 mL) insulin pen Discont inued SUBCUT September 05, 2023 12:00a m September 10, 2023 8:11a m FreeTextSi:40 ISS Subcutaneous QID; Note: Source Status: Not-Takingund efinedPRNHAS LISPRO, ASPART BACK UP; Refills: 1; Qty: 30 ml; Provider: Gabby Eisenberg pen needle, diabetic (Novofine 32) Active .Route September 05, 2023 12:00a m Metformin 500 mg tablet extended release 24 hr Discont inued 1000 MG PO Twice daily September 05, 2023 12:00a m September 10, 2023 8:14a m Dapagliflozi n Propanediol (Farxiga) 10 mg tablet Discont inued 10 MG PO Daily September 05, 2023 12:00a m September 10, 2023 8:47a m Insulin Glargine 100 unit/mL (3 mL) insulin pen Discont inued 42 UNIT SUBCUT Every evening September 05, 2023 12:00a m September 10, 2023 8:47a m Lisinopril 2.5 mg tablet Active 2.5 MG PO Daily September 05, 2023 12:00a m Cholecalcife rol (Vitamin D3) 50 mcg (2,000 unit) capsule Active 100 MCG PO Daily September 05, 2023 12:00a m Rosuvastatin 40 mg tablet Active 40 MG PO Daily September 05, 2023 12:00a m Insulin Lispro 100 unit/mL insulin pen Discont inued 1 slidin g scale dose SUBCUT Use as Directed September 10, 2023 12:00a m September 10, 2023 8:47a m Metformin 500 mg tablet extended release 24 hr Discont inued 1000 MG PO .am September 10, 2023 8:12am [facility] 2023 1:37p m On Hold: combine in one entry Metformin 500 mg tablet extended release 24 hr Discont inued 500 MG PO Every evening September 10, 2023 12:00a m September 10, 2023 8:47a m Semaglutide (Ozempic) 0.25 mg or 0.5 mg (2 mg/3 mL) pen injector Discont inued 0.5 MG SUBCUT every week 9.56 8 September 10, 2023 8:40am [facility] 2023 1:37p m On Hold: dose change Metformin 500 mg tablet extended release 24 hr Discont inued 1500 MG PO Daily 270 September 10, 2023 8:41am [facility] 2023 11:48 am 2 tabs with breakfast, one tab with dinner Dapagliflozi n Propanediol (Farxiga) 10 mg tablet Active 10 MG PO Daily 90 September 10, 2023 8:43am On Hold: Cost prohibitive, applying for Pap Insulin Glargine 100 unit/mL (3 mL) insulin pen Discont inued 42 UNIT SUBCUT Every evening 37.8 90 September 10, 2023 8:44am [facility] 2023 10:16 am titrate to 60 u once daily, has written instructions Insulin Lispro 100 unit/mL insulin pen Discont inued 0 SUBCUT Use as Directed 30 September 10, 2023 8:45am [facility] 2023 10:15 am ISS 1:50, expect up to 30 u per day Insulin Glargine 100 unit/mL (3 mL) insulin pen Discont inued 40 UNIT SUBCUT Every evening 2023 10:13a m [facility] 2023 10:38 am titrate to 60 u once daily, has written instructions Insulin Aspart (Niacinamide ) (Fiasp Flextouch U-100 Insulin) 100 unit/mL (3 mL) insulin pen Active 1 slidin g scale dose SUBCUT Use as Directed 2023 12:00a m Semaglutide (Ozempic) 1 mg/dose (4 mg/3 mL) pen injector Discont inued 1 MG SUBCUT every week 3 Septem viji 2023 12:00a m Febru [email or web address] 10:39 am Insulin Glargine 100 unit/mL (3 mL) insulin pen Discont inued 40 UNIT SUBCUT Every evening 60 Septem viji 2023 10:36a m Octob er 2023 1:40p m titrate to 60 u once daily, has written instructions Insulin Glargine 100 unit/mL (3 mL) insulin pen Discont inued 38 UNIT SUBCUT Every evening 60 Octobe r 2023 1:39pm Dece viji 2023 10:30 am titrate to 60 u once daily, has written instructions Insulin Glargine 100 unit/mL (3 mL) insulin pen Discont inued 40 UNIT SUBCUT Every evening [facility] er 2023 10:27a m [facility] viji 2023 11:47 am titrate to 60 u once daily, has written instructions Oxcarbazepin e 150 mg tablet Active 150 MG PO Daily [facility] er 2023 1:00am Insulin Glargine 100 unit/mL (3 mL) insulin pen Active 40 UNIT SUBCUT Every evening 60 [facility] er 2023 11:46a m titrate to 60 u once daily, has written instructions Metformin 500 mg tablet extended release 24 hr Discont inued 1500 MG PO Daily 270 90 [facility] 2023 11:48a m [facility] 2 tabs with breakfast, one tab with dinner Flash Glucose Sensor (Freestyle Miladys 2 Sensor) kit Active 0 KIT .MEDSUPPLY 6 2024 9:51am As directed Change every 14 Days Metformin 500 mg tablet extended release 24 hr Active 0 PO Daily 2024 9:54am 2 tabs with breakfast, one tab with dinner Blood-Glucos e Meter (Onetouch Ultra2 Meter) misc Discont inued 0 .Route 2024 1:00am [facility]2024 10:08 am As directed Blood Sugar Diagnostic (Onetouch Ultra Test) strip Discont inued 0 .Route 2024 1:00am 2024 10:08 am As directed Lancets misc Discont inued 0 .Route 2024 1:00am 2024 10:08 am As directed Lancets misc Active 0 .Route 300 2024 10:06a m As directed test blood sugar three times daily Blood Sugar Diagnostic (Onetouch Ultra Test) strip Active 0 .Route 300 2024 10:07a m As directed test blood sugar three times daily Blood-Glucos e Meter (Onetouch Ultra2 Meter) misc Active 0 .Route 1 2024 10:07a m As directed test blood sugar three times daily Semaglutide (Ozempic) 1 mg/dose (4 mg/3 mL) pen injector Active 1 MG SUBCUT every week 3 2024 10:37a m patient will have [facility] voucher information Relevant Diagnostic Tests and/or Laboratory Data Laboratory Results Test Date/Time Result Interpretation Reference Range Result Comment Performing Site C-Reactive Protein, Quantitative September 20, 2024 12:15pm 6.32 mg/dL Above high normal <=0.50 Anion Gap September 20, 2024 12:15pm 9.4 Erythrocyte Sedimentation Rate September 20, 2024 12:15pm >130 mm/hr Above high normal <=20 Basophils # (Auto) September 20, 2024 12:15pm 0.1 10 3/uL 0.0-0.1 Anion Gap September 21, 2024 5:55am 14.1 Basophils # (Auto) September 21, 2024 5:55am 0.1 10 3/uL 0.0-0.1 C-Reactive Protein, Quantitative September 22, 2024 5:35am 4.29 mg/dL Above high normal <=0.50 Anion Gap September 22, 2024 5:35am 15.7 Basophils # (Auto) September 22, 2024 5:35am 0.1 10 3/uL 0.0-0.1 Vancomycin Level Trough September 22, 2024 7:56pm 18.3 ug/mL 5.0-20.0 Anion Gap September 23, 2024 5:30am 14.1 C-Reactive Protein, Quantitative September 23, 2024 5:30am 3.19 mg/dL Above high normal <=0.50 Basophils # (Auto) September 23, 2024 5:30am 0.1 10 3/uL 0.0-0.1 Albumin/Globulin Ratio September 20, 2024 12:15pm 0.4 Basophils (%) (Auto) September 20, 2024 12:15pm 0.8 % 0.2-2.0 Albumin/Globulin Ratio September 21, 2024 5:55am 0.3 Basophils (%) (Auto) September 21, 2024 5:55am 0.6 % 0.2-2.0 Albumin/Globulin Ratio September 22, 2024 5:35am 0.4 Basophils (%) (Auto) September 22, 2024 5:35am 0.6 % 0.2-2.0 Albumin/Globulin Ratio September 23, 2024 5:30am 0.3 Basophils (%) (Auto) September 23, 2024 5:30am 0.7 % 0.2-2.0 Albumin September 20, 2024 12:15pm 2.4 g/dL Below low normal 3.4-5.0 Eosinophils # (Auto) September 20, 2024 12:15pm 0.0 10 3/uL 0.0-0.7 Albumin September 21, 2024 5:55am 1.9 g/dL Below low normal 3.4-5.0 Eosinophils # (Auto) September 21, 2024 5:55am 0.0 10 3/uL 0.0-0.7 Albumin September 22, 2024 5:35am 1.9 g/dL Below low normal 3.4-5.0 Eosinophils # (Auto) September 22, 2024 5:35am 0.0 10 3/uL 0.0-0.7 Albumin September 23, 2024 5:30am 1.8 g/dL Below low normal 3.4-5.0 Eosinophils # (Auto) September 23, 2024 5:30am 0.0 10 3/uL 0.0-0.7 Alkaline Phosphatase September 20, 2024 12:15pm 101 U/L 46-116 Eosinophils (%) (Auto) September 20, 2024 12:15pm 0.0 % Below low normal 0.9-7.0 Alkaline Phosphatase September 21, 2024 5:55am 79 U/L 46-116 Eosinophils (%) (Auto) September 21, 2024 5:55am 0.2 % Below low normal 0.9-7.0 Alkaline Phosphatase September 22, 2024 5:35am 74 U/L 46-116 Eosinophils (%) (Auto) September 22, 2024 5:35am 0.2 % Below low normal 0.9-7.0 Alkaline Phosphatase September 23, 2024 5:30am 76 U/L 46-116 Eosinophils (%) (Auto) September 23, 2024 5:30am 0.2 % Below low normal 0.9-7.0 Alanine Aminotransferase (ALT/SGPT) September 20, 2024 12:15pm 25 U/L 16-63 Hematocrit September 20, 2024 12:15pm 41.1 % Below low normal 42.0-54.0 Alanine Aminotransferase (ALT/SGPT) September 21, 2024 5:55am 16 U/L 16-63 Hematocrit September 21, 2024 5:55am 34.2 % Below low normal 42.0-54.0 Alanine Aminotransferase (ALT/SGPT) September 22, 2024 5:35am 15 U/L Below low normal 16-63 Hematocrit September 22, 2024 5:35am 33.8 % Below low normal 42.0-54.0 Alanine Aminotransferase (ALT/SGPT) September 23, 2024 5:30am 15 U/L Below low normal 16-63 Hematocrit September 23, 2024 5:30am 34.7 % Below low normal 42.0-54.0 Aspartate Amino Transf (AST/SGOT) September 20, 2024 12:15pm 28 U/L 15-37 Hemoglobin September 20, 2024 12:15pm 14.0 g/dL 14.0-18.0 Aspartate Amino Transf (AST/SGOT) September 21, 2024 5:55am 21 U/L 15-37 Hemoglobin September 21, 2024 5:55am 11.6 g/dL Below low normal 14.0-18.0 Aspartate Amino Transf (AST/SGOT) September 22, 2024 5:35am 20 U/L 15-37 Hemoglobin September 22, 2024 5:35am 11.8 g/dL Below low normal 14.0-18.0 Aspartate Amino Transf (AST/SGOT) September 23, 2024 5:30am 22 U/L 15-37 Hemoglobin September 23, 2024 5:30am 11.9 g/dL Below low normal 14.0-18.0 BUN/Creatinine Ratio September 20, 2024 12:15pm 13.1 Immature Granulocyte # (Auto) September 20, 2024 12:15pm 0.04 10 3/uL Above high normal 0.00-0.03 BUN/Creatinine Ratio September 21, 2024 5:55am 20.3 Immature Granulocyte # (Auto) September 21, 2024 5:55am 0.06 10 3/uL Above high normal 0.00-0.03 BUN/Creatinine Ratio September 22, 2024 5:35am 21.2 Immature Granulocyte # (Auto) September 22, 2024 5:35am 0.04 10 3/uL Above high normal 0.00-0.03 BUN/Creatinine Ratio September 23, 2024 5:30am 23.4 Immature Granulocyte # (Auto) September 23, 2024 5:30am 0.03 10 3/uL 0.00-0.03 Blood Urea Nitrogen September 20, 2024 12:15pm 18.0 mg/dL 7.0-18.0 Immature Granulocyte % (Auto) September 20, 2024 12:15pm 0.3 % 0.0-0.5 Blood Urea Nitrogen September 21, 2024 5:55am 24.0 mg/dL Above high normal 7.0-18.0 Immature Granulocyte % (Auto) September 21, 2024 5:55am 0.5 % 0.0-0.5 Blood Urea Nitrogen September 22, 2024 5:35am 21.0 mg/dL Above high normal 7.0-18.0 Immature Granulocyte % (Auto) September 22, 2024 5:35am 0.4 % 0.0-0.5 Blood Urea Nitrogen September 23, 2024 5:30am 22.0 mg/dL Above high normal 7.0-18.0 Immature Granulocyte % (Auto) September 23, 2024 5:30am 0.3 % 0.0-0.5 Calcium Level September 20, 2024 12:15pm 9.6 mg/dL 8.5-10.1 Lymphocytes # (Auto) September 20, 2024 12:15pm 1.9 10 3/uL 1.2-3.8 Calcium Level September 21, 2024 5:55am 8.8 mg/dL 8.5-10.1 Lymphocytes # (Auto) September 21, 2024 5:55am 1.9 10 3/uL 1.2-3.8 Calcium Level September 22, 2024 5:35am 8.7 mg/dL 8.5-10.1 Lymphocytes # (Auto) September 22, 2024 5:35am 1.7 10 3/uL 1.2-3.8 Calcium Level September 23, 2024 5:30am 9.0 mg/dL 8.5-10.1 Lymphocytes # (Auto) September 23, 2024 5:30am 1.6 10 3/uL 1.2-3.8 Chloride Level September 20, 2024 12:15pm 99 mmol/L 98-107 Lymphocytes (%) (Auto) September 20, 2024 12:15pm 15.9 % Below low normal 20.5-60.0 Chloride Level September 21, 2024 5:55am 103 mmol/L 98-107 Lymphocytes (%) (Auto) September 21, 2024 5:55am 15.9 % Below low normal 20.5-60.0 Chloride Level September 22, 2024 5:35am 102 mmol/L 98-107 Lymphocytes (%) (Auto) September 22, 2024 5:35am 17.7 % Below low normal 20.5-60.0 Chloride Level September 23, 2024 5:30am 103 mmol/L 98-107 Lymphocytes (%) (Auto) September 23, 2024 5:30am 17.6 % Below low normal 20.5-60.0 Carbon Dioxide Level September 20, 2024 12:15pm 28.1 mmol/L 21.0-32.0 Mean Corpuscular Hemoglobin September 20, 2024 12:15pm 30.8 pg 25.9-34.0 Carbon Dioxide Level September 21, 2024 5:55am 24.5 mmol/L 21.0-32.0 Mean Corpuscular Hemoglobin September 21, 2024 5:55am 30.8 pg 25.9-34.0 Carbon Dioxide Level September 22, 2024 5:35am 23.7 mmol/L 21.0-32.0 Mean Corpuscular Hemoglobin September 22, 2024 5:35am 31.3 pg 25.9-34.0 Carbon Dioxide Level September 23, 2024 5:30am 26.0 mmol/L 21.0-32.0 Mean Corpuscular Hemoglobin September 23, 2024 5:30am 30.7 pg 25.9-34.0 Creatinine September 20, 2024 12:15pm 1.37 mg/dL Above high normal 0.70-1.30 Mean Corpuscular Hemoglobin Concent September 20, 2024 12:15pm 34.1 g/dL 29.9-35.2 Creatinine September 21, 2024 5:55am 1.18 mg/dL 0.70-1.30 Mean Corpuscular Hemoglobin Concent September 21, 2024 5:55am 33.9 g/dL 29.9-35.2 Creatinine September 22, 2024 5:35am 0.99 mg/dL 0.70-1.30 Mean Corpuscular Hemoglobin Concent September 22, 2024 5:35am 34.9 g/dL 29.9-35.2 Creatinine September 23, 2024 5:30am 0.94 mg/dL 0.70-1.30 Mean Corpuscular Hemoglobin Concent September 23, 2024 5:30am 34.3 g/dL 29.9-35.2 Estimated GFR () September 20, 2024 12:15pm >60 >=60 mL/min/1.73 m 2 Mean Corpuscular Volume September 20, 2024 12:15pm 90.5 fL 80.0-94.0 Estimated GFR () September 21, 2024 5:55am >60 >=60 mL/min/1.73 m 2 Mean Corpuscular Volume September 21, 2024 5:55am 90.7 fL 80.0-94.0 Estimated GFR () September 22, 2024 5:35am >60 >=60 mL/min/1.73 m 2 Mean Corpuscular Volume September 22, 2024 5:35am 89.7 fL 80.0-94.0 Estimated GFR () September 23, 2024 5:30am >60 >=60 mL/min/1.73 m 2 Mean Corpuscular Volume September 23, 2024 5:30am 89.7 fL 80.0-94.0 Estimated GFR (Non- September 20, 2024 12:15pm 52 Below low normal >=60 mL/min/1.73 m 2 Monocytes # (Auto) September 20, 2024 12:15pm 1.4 10 3/uL Above high normal 0.3-0.8 Estimated GFR (Non- September 21, 2024 5:55am >60 >=60 mL/min/1.73 m 2 Monocytes # (Auto) September 21, 2024 5:55am 1.5 10 3/uL Above high normal 0.3-0.8 Estimated GFR (Non- September 22, 2024 5:35am >60 >=60 mL/min/1.73 m 2 Monocytes # (Auto) September 22, 2024 5:35am 1.2 10 3/uL Above high normal 0.3-0.8 Estimated GFR (Non- September 23, 2024 5:30am >60 >=60 mL/min/1.73 m 2 Monocytes # (Auto) September 23, 2024 5:30am 1.4 10 3/uL Above high normal 0.3-0.8 Globulin September 20, 2024 12:15pm 6.6 g/dL Monocytes (%) (Auto) September 20, 2024 12:15pm 12.1 % Above high normal 1.7-12.0 Globulin September 21, 2024 5:55am 5.6 g/dL Monocytes (%) (Auto) September 21, 2024 5:55am 12.6 % Above high normal 1.7-12.0 Globulin September 22, 2024 5:35am 5.4 g/dL Monocytes (%) (Auto) September 22, 2024 5:35am 12.8 % Above high normal 1.7-12.0 Globulin September 23, 2024 5:30am 5.6 g/dL Monocytes (%) (Auto) September 23, 2024 5:30am 15.6 % Above high normal 1.7-12.0 Glucose Level September 20, 2024 12:15pm 130 mg/dL Above high normal 74-106 Mean Platelet Volume September 20, 2024 12:15pm 9.5 fL 9.5-13.5 Glucose Level September 21, 2024 5:55am 106 mg/dL 74-106 Mean Platelet Volume September 21, 2024 5:55am 9.7 fL 9.5-13.5 Glucose Level September 22, 2024 5:35am 87 mg/dL 74-106 Mean Platelet Volume September 22, 2024 5:35am 9.6 fL 9.5-13.5 Glucose Level September 23, 2024 5:30am 124 mg/dL Above high normal 74-106 Mean Platelet Volume September 23, 2024 5:30am 9.5 fL 9.5-13.5 Potassium Level September 20, 2024 12:15pm 4.5 mmol/L 3.5-5.1 Neutrophils # (Auto) September 20, 2024 12:15pm 8.5 10 3/uL Above high normal 1.4-6.5 Potassium Level September 21, 2024 5:55am 4.6 mmol/L 3.5-5.1 Neutrophils # (Auto) September 21, 2024 5:55am 8.4 10 3/uL Above high normal 1.4-6.5 Potassium Level September 22, 2024 5:35am 4.4 mmol/L 3.5-5.1 Neutrophils # (Auto) September 22, 2024 5:35am 6.6 10 3/uL Above high normal 1.4-6.5 Potassium Level September 23, 2024 5:30am 4.1 mmol/L 3.5-5.1 Neutrophils # (Auto) September 23, 2024 5:30am 6.0 10 3/uL 1.4-6.5 Sodium Level September 20, 2024 12:15pm 132 mmol/L Below low normal 136-145 Neutrophils (%) (Auto) September 20, 2024 12:15pm 70.9 % 43.0-75.0 Sodium Level September 21, 2024 5:55am 137 mmol/L 136-145 Neutrophils (%) (Auto) September 21, 2024 5:55am 70.2 % 43.0-75.0 Sodium Level September 22, 2024 5:35am 137 mmol/L 136-145 Neutrophils (%) (Auto) September 22, 2024 5:35am 68.3 % 43.0-75.0 Sodium Level September 23, 2024 5:30am 139 mmol/L 136-145 Neutrophils (%) (Auto) September 23, 2024 5:30am 65.6 % 43.0-75.0 Total Bilirubin September 20, 2024 12:15pm 0.7 mg/dL 0.2-1.0 Platelet Count September 20, 2024 12:15pm 401 10 3/uL 150-450 Total Bilirubin September 21, 2024 5:55am 0.5 mg/dL 0.2-1.0 Platelet Count September 21, 2024 5:55am 314 10 3/uL 150-450 Total Bilirubin September 22, 2024 5:35am 0.4 mg/dL 0.2-1.0 Platelet Count September 22, 2024 5:35am 334 10 3/uL 150-450 Total Bilirubin September 23, 2024 5:30am 0.3 mg/dL 0.2-1.0 Platelet Count September 23, 2024 5:30am 339 10 3/uL 150-450 Total Protein September 20, 2024 12:15pm 9.0 g/dL Above high normal 6.4-8.2 Red Blood Count September 20, 2024 12:15pm 4.54 10 6/uL Below low normal 4.70-6.10 Total Protein September 21, 2024 5:55am 7.5 g/dL 6.4-8.2 Red Blood Count September 21, 2024 5:55am 3.77 10 6/uL Below low normal 4.70-6.10 Total Protein September 22, 2024 5:35am 7.3 g/dL 6.4-8.2 Red Blood Count September 22, 2024 5:35am 3.77 10 6/uL Below low normal 4.70-6.10 Total Protein September 23, 2024 5:30am 7.4 g/dL 6.4-8.2 Red Blood Count September 23, 2024 5:30am 3.87 10 6/uL Below low normal 4.70-6.10 Red Cell Distribution Width September 20, 2024 12:15pm 11.2 % 11.0-15.0 Red Cell Distribution Width September 21, 2024 5:55am 11.3 % 11.0-15.0 Red Cell Distribution Width September 22, 2024 5:35am 11.1 % 11.0-15.0 Red Cell Distribution Width September 23, 2024 5:30am 11.0 % 11.0-15.0 Corrected White Blood Count September 20, 2024 12:15pm 11.9 10 3/uL Above high normal 4.0-11.0 Corrected White Blood Count September 21, 2024 5:55am 11.9 10 3/uL Above high normal 4.0-11.0 Corrected White Blood Count September 22, 2024 5:35am 9.6 10 3/uL 4.0-11.0 Corrected White Blood Count September 23, 2024 5:30am 9.1 10 3/uL 4.0-11.0 Advance Directives Advance Directive Response Recorded Date/ Time Advance Directives No June 10:22am Insurance Providers Guarantor Chitra Rivas R Address [address] [place] [id number] Contact Info. Home Phone: Payer Policy Id Coverage Id Subscriber's Name Subscriber Id Effective Date Expiration Date [facility] [id number] Liseth Rodriguez [id number] Medicare [id number] Jassi Rodriguez SR [id number] Encounters Encounter Location(s) Arrival/Admit Date Discharge/Depart Date Provider(s) Non-patient / Non-visit [facility] Physician [facility] September 20, 2024 12:15pm Krys Hummel MD Non-patient / Non-visit [facility] Physician [facility] September 21, 2024 5:55am Shaikh Shaji MD Non-patient / Non-visit [facility] Physician [facility] September 22, 2024 5:35am Shaikh Shaji MD Non-patient / Non-visit [facility] Physician [facility] September 23, 2024 5:30am Shaikh Shaji MD Departed Referred [facility] September 23, 2024 9:38am September 23, 2024 9:39am Colton Spears DPM [place]
--- OUTSIDE RECORDS SUMMARY | 2024-10-01 13:09 | XMS_ITS | Encounter Summary ---
Author Organization [employer] Address [facility]-[id number] [address] [place] [address] Care Team Providers Care Dredge Runner Name Role Phone No Pcp, No Pcp Primary Care Provider Unavailabl e Encounter Details Date Type Department Care Team (Latest Contact Info) Description 09/25/2024 Travel Social History Tobacco Use Types Packs/Day Years [...] on file documented as of this encounter Plan of Treatment Not on file documented as of this encounter Goals Goal Patient Goal Type Associated Problems Recent Progress Patient-Stated? Author dc to home General Yes Camille Celaya, RN Note: Evaluation of progress towards goal: Patients goal is to discharge to home. documented as of this encounter Visit Diagnoses Not on filedocumented in this encounter Care Teams Dredge Runner Relationship Specialty Start Date End Date No Pcp, [place] [address] PCP - General Family Medicine 04/11/24 documented as of this encounter
--- OUTSIDE RECORDS SUMMARY | 2024-10-01 13:09 | XMS_ITS | Clinical Summary ---
Author Organization [facility] Address [address] [place] [address] Care Team Providers Care Laborer/Key Man Name Role Phone Raman Daley DO Unavailable [phone] Leticia Blanco ENGLISH LECTURER Unavailable [phone] Suzanna Ybarra ENGLISH LECTURER Unavailable [phone] Allergies No known active allergies Medications dapagliflozin (Farxiga) 10 MG Take 10 mg by mouth Daily Active Semaglutide (OZEMPIC, 0.25 OR 0.5 MG/DOSE, SC) Inject under the skin Active metFORMIN (Glucophage) 500 MG tablet Take 1,000 mg by mouth in the morning. Take with meals. Active rosuvastatin (Crestor) 40 MG tablet Take 40 mg by mouth Daily Active lisinopril 5 MG tablet Take 5 mg by mouth Daily Active insulin glargine (Lantus) 100 UNIT/ML injection Inject under the skin at bedtime Active OXcarbazepine (Trileptal) 150 MG tabletIndicatio ns:Neuralgia TAKE 1 TABLET BY MOUTH IN THE MORNING AND 1 TABLET BEFORE BEDTIME 180 tablet 2 04/07/2024 Active Social History Tobacco Use Types Packs/Day Years Used Date Smoking Tobacco: Never Assessed Sex and Gender Information Value Date Recorded Sex Assigned at Not on file Legal Sex Male 6:59 PM EDT Gender Identity Not on file Sexual Orientation Not on file Last Filed Vital Signs Vital Sign Reading Time Taken Comments Blood Pressure 150/88 04/07/2024 8:17 AM EST Pulse 84 04/07/2024 8:17 AM EST Temperature - - Respiratory Rate - - Oxygen Saturation 98% 04/07/2024 8:17 AM EST Inhaled Oxygen Concentration - - Weight 80.2 kg (176 lb 12.8 oz) 04/07/2024 8:17 AM EST Height 175.3 cm (5' 9 ) 04/07/2024 8:17 AM EST Body Mass Index 26.11 04/07/2024 8:17 AM EST Plan of Treatment Not on file Insurance [employer] Care Teams Laborer/Key Man Relationship Specialty Start Date End Date Raman Daley DO [id number] [id number] Referring Physician Neurology 04/07/24 Leticia Blanco NP [address] [id number] Nurse Practitioner Neurology 04/07/24 Suzanna Ybarra NP [address] [phone] Nurse Practitioner Neurology 04/07/24
--- OUTSIDE RECORDS SUMMARY | 2024-10-01 13:09 | XMS_ITS | Clinical Summary ---
Author Organization [facility] Address [id number] [address] [place] [address] Care Team Providers Care Patch Machine Operator Name Role Phone No Pcp, No Pcp Primary Care Provider Unavailabl e Allergies No known active allergies Medications insulin glargine (LANTUS) 100 unit/mL injection Inject 0.55 mL (55 Units total) under the skin nightly. Active sodium chloride 0.9 % injection 10 mL by intravenous push route as needed. 7 Active dapagliflozin propanediol (FARXIGA) 10 mg tablet Take 1 tablet (10 mg total) by mouth in the morning. 4 Active semaglutide (OZEMPIC SUBQ) Inject under the skin See Admin Instructions. Active OXcarbazepine (TRILEPTAL) 150 mg tablet Take 1 tablet (150 mg total) by mouth in the morning and 1 tablet (150 mg total) before bedtime. 4 Active metFORMIN XR (GLUCOPHAGE XR) 500 mg 24 hr tablet Take 1 tablet (500 mg total) by mouth daily with breakfast. 4 Active rosuvastatin (CRESTOR) 40 mg tablet Take 1 tablet (40 mg total) by mouth in the morning. Active insulin aspart, niacinamide, 100 unit/mL (3 mL) insulin pen 4 Active cyclobenzaprine (FLEXERIL) 10 mg tabletIndication s:Closed fracture of multiple ribs of right side, initial encounter Take 1 tablet (10 mg total) by mouth 2 (two) times a day as needed for muscle spasms. 10 tablet 4 Active Additional Information Patient not taking.Reported on 09/25/2024 lidocaine (LIDODERM) 5 %Indications:Wanda sed fracture of multiple ribs of right side, initial encounter Place 1 patch on the skin daily. Remove & Discard patch within 12 hours or as directed by 30 patch 4 Active Additional Information Patient not taking.Reported on 09/25/2024 ciprofloxacin HCl (CIPRO) 500 mg tablet Take 1 tablet (500 mg total) by mouth in the morning and 1 tablet (500 mg total) before bedtime. 5 Active doxycycline (MONODOX) 100 mg capsule Take 1 capsule (100 mg total) by mouth in the morning and 1 capsule (100 mg total) before bedtime. 5 Active lisinopriL (PRINIVIL,ZESTRI L) 5 mg tablet Take 1 tablet (5 mg total) by mouth in the morning. Active aspirin 81 mg chewable tablet Chew 1 tablet (81 mg total) and swallow in the morning. 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 His foot looks chronically ischemic. Will get PVR and plan to do right lower extremity angiogram and intervention. Facial cellulitis 09/16/2016 Encounters Date Type Department Care Team Description 09/25/2024 11:00 AM EDT [facility] [address] [place] [phone] Jamil Culver MD Critical limb ischemia of right lower extremity with gangrene ([facility]) (Primary Dx); PAD (peripheral artery disease); Gangrene (CMS-HCC) 09/25/2024 Travel from Last 3 Months Family History Medical History Relation Name Comments Diabetes Mother Relation Name Status Comments Mother Social History Tobacco Use Types Packs/Day Years [...] F) 09/25/2024 10:48 AM EDT Respiratory Rate 16 04/11/2024 10:17 AM EST Oxygen Saturation 99% 09/25/2024 10:48 AM EDT Inhaled Oxygen Concentration - - Weight 72.2 kg (159 lb 2.8 oz) 09/25/2024 10:48 AM EDT Height 175.3 cm (5' 9 ) 09/25/2024 10:48 AM EDT Body Mass Index 23.51 09/25/2024 10:48 AM EDT Plan of Treatment Health Maintenance Due Date Last Done Comments Depression Screening 1973 DTaP,Tdap and Td Vaccines (1 - Tdap) 02/06/1980 Zoster (Shingles) Vaccine (1 of 2) 2011 Influenza Vaccine 01/05/2025 Tobacco Screening 04/11/2025 04/11/2024 Adult BMI Screening 09/25/2025 09/25/2024 Goals Goal Patient Goal Type Associated Problems Recent Progress Patient-Stated? Author dc to home General Yes Camille Celaya, RN Note: Evaluation of progress towards goal: Patients goal is to discharge to home. Medical Devices Not on file Insurance [employer] Advance Directives * Full Code (Latest Code Status on File) Date Activated Date Inactivated Comments 09/16/2016 8:20 PM 09/22/2016 8:22 PM * Full Code Date Activated Date Inactivated Comments 09/16/2016 1:01 PM 09/16/2016 8:20 PM Care Teams Patch Machine Operator Relationship Specialty Start Date End Date No Pcp, No Pcp LATANYA Valerio [id number] PCP - General Family Medicine 04/11/24
== END 2024-10-01 13:07 | disposition home or self-care (01) ==
LOC: WC 13:06
PROVIDERS: PCP Family Medicine; Visit Provider Podiatrist Foot & Ankle Surgery
DX: Z89.411 Acquired absence of right great toe (principal)
CPT/HCPCS: G0463

== ENCOUNTER 2024-10-15 14:56 | Outpatient (OUT) | payer MEDICARE, SELFPAY | END 2024-10-15 14:57 | disposition home or self-care (01) | LOC: WC 14:56 | PROVIDERS: PCP Family Medicine; Visit Provider Podiatrist Foot & Ankle Surgery | DX: I70.235 Atherosclerosis of native arteries of right leg with ulceration of other part of foot (principal); Z89.411 Acquired absence of right great toe; L97.511 Non-pressure chronic ulcer of other part of right foot limited to breakdown of skin | CPT/HCPCS: G0463 ==

== ENCOUNTER 2024-10-29 14:27 | Outpatient (OUT) | payer MEDICARE, SELFPAY ==
--- OUTSIDE RECORDS SUMMARY | 2024-10-29 17:10 | XMS_ITS | CCD ---
Author Organization [facility] Care Team Providers Care Retail Asset Protection Specialist Name Role Phone MARCEL PAIZ Attending Unavailable STEVEN WAN Consulting Unavailable LE RODGERS Primary Care Unavailable MARCEL PAIZ Admitting Unavailable MARCEL PAIZ Consulting Unavailable Yolette Pierre Unavailable Le Rodgers Unavailable MD eL Rodgers Primary Care Provider [phone] TIFFANIE Pierre Attending Provider Unavailable Primary Care Provider UnavailMelanie Hale DO Unavailable [phone] Francis [employer], Leticia Unavailable Tate [employer], Suzanna Unavailable MELANIE DALEY Attending Unavailable Yolette Pierre APRN Attending Provider Mayra Spears Attending Unavailable Mayra Spears Admitting Unavailable Yolette Pierre Admitting Unavailable Yolette Pierre Attending Unavailable PARRISH LOCKE Attending Unavailable NO PCP, NO PCP Primary Care Unavailable MAYRA SPEARS Referring Unavailable NO PCP, NO PCP Primary Care Unavailable Mayra Spears DPM Attending Provider [phone] JAMIL CULVER Admitting Unavailable JAMIL CULVER Attending Unavailable NO PCP, NO PCP Primary Care Unavailable No Pcp, No Pcp Primary Care Provider UnavailJAMIL Soriano Attending Unavailable MAYRA SPEARS Referring Unavailable NO PCP, NO PCP Primary Care Unavailable JAMIL CULVER F Attending Unavailable NO PCP, NO PCP Primary Care Unavailable Medications Current Medications Medication Drug Class(es) [...] weely for 90 days COPAY CARD Active aspirin 81 mg chewable tablet (1 source) Platelet Aggregation Inhibitor, Nonsteroidal Anti-inflammatory Drug Start: 09-25-2024 aspirin 81 mg chewable tablet Chew 1 tablet (81 mg total) and swallow in the morning. 90 tablet 4 09/25/2024 Active Blood-Glucose Meter (Onetouch Ultra2 Meter) mis (6 sources) Start: 06-18-2024 Blood-Glucose Meter (Onetouch Ultra2 Meter) mis Active 0 .Route 1 June 18, 2024 10:07am As directed test blood sugar three times daily Start: 06-18-2024 Blood-Glucose Meter (Onetouch Ultra2 Meter) mis Active 0 .Route 1 June 18, 2024 9:07am As directed test blood sugar three times daily Start: 06-18-2024 End: 06-18-2024 Blood-Glucose Meter (Onetouc h Ultra2 Meter) [facility] [place] Discontinued 0 .Route June 18, 2024 1:00am June 18, 2024 10:08am As directed Start: 06-18-2024 End: 06-18-2024 Blood-Glucose Meter (Onetouc h Ultra2 Meter) [facility] [place] Discontinued 0 .Route June 18, 2024 12:00am June 18, 2024 9:08am As directed cholecalciferol 0.05 mg oral capsule (12 sources) Vitamin D Start: 09-05-2023 take 1 capsule by mouth once daily Cholecalciferol (Vitamin D3) 50 mcg (2,000 unit) capsule Active 100 MCG PO Daily September 05, 2023 12:00am Start: 12-19-2022 take 1 capsule by ca ut every week Cholecalciferol 1.25 MG (29962 UT) 1 capsule Orally weekly for 56 days Then D3 OtC 4000 UT daily Dec, Active take 1 capsule by [facility] every week Cholecalciferol 100 MCG (4000 UT) 1 capsule Orally weekly for 56 days Then D3 OtC 4000 UT daily Active take 1 capsule by [facility] every week Cholecalciferol 1.25 MG (63536 UT) 1 capsule Orally weekly for 56 days Then D3 OtC 4000 UT daily Active ciprofloxacin 500 mg oral tablet (1 source) Quinolone Antimicrobial Start: 09-23-2024 take 1 tablet by mouth in the morning, then take 1 tablet by mouth at bedtime ciprofloxacin HCl (CIPRO) 500 mg tablet Take 1 tablet (500 mg total) by mouth in the morning and 1 tablet (500 mg total) before bedtime. 09/23/2024 Active cyclobenzaprine hydrochloride 10 mg oral tablet (1 source) Muscle Relaxant Start: 04-11-2024 take 1 tablet by mouth twice daily as needed for muscle spasms cyclobenzaprine (FLEXERIL) 10 mg tablet Indications: Closed fracture of multiple ribs of right side, initial encounter Take 1 tablet (10 mg total) by mouth 2 (two) times a day as needed for muscle spasms. 10 tablet 04/11/2024 Active dapagliflozin 10 mg oral tablet (20 sources) Sodium-Glucose Cotransporter 2 Inhibitor Start: 09-05-2023 End: 09-10-2023 take 1 tablet by mouth in the morning dapagliflozin propanediol (FARXIGA) 10 mg tablet Take 1 tablet (10 mg total) by mouth in the morning. 09/10/2023 Active Start: 02-03-2022 take 1 tablet by [facility] every twenty-four hours Farxiga 5 MG 1 tablet Orally Once a day for 30 day(s) has coupon card Jan, Active doxycycline monohydrate 100 mg oral capsule (1 source) Tetracycline-class Drug Start: 09-23-2024 take 1 capsule by mouth in the morning, then take 1 capsule by mouth at bedtime doxycycline (MONODOX) 100 mg capsule Take 1 capsule (100 mg total) by mouth in the morning and 1 capsule (100 mg total) before bedtime. 09/23/2024 Active empagliflozin 10 mg oral tablet (5 sources) Sodium-Glucose Cotransporter 2 Inhibitor take 1 tablet by mouth every twenty-four hours Jardiance 10 MG 1 tablet Orally Once a day for 90 day(s) patient has coupon card Active Flash Glucose Scanning Orchard (Freestyle Miladys 2 Orchard) misc (10 sources) Start: 09-07-2023 Flash Glucose Scanning Orchard (Freestyle Miladys 2 Orchard) misc Active 0 .MEDSUPPLY September 07, 2023 12:58pm As directed to monitor blood sugar Start: 09-07-2023 Flash Glucose Scanning Orchard (Freestyle Miladys 2 Orchard) misc Active 0 .MEDSUPPLY September 07, 2023 1:58pm As directed to monitor blood sugar Start: 09-07-2023 End: 09-07-2023 Flash Glucose Scanning Reade r (Freestyle Miladys 2 Orchard) misc Discontinued 0 .MEDSUPPLY September 06, 2023 11:00pm September 07, 2023 1:01pm As directed Start: 09-07-2023 End: 09-07-2023 Flash Glucose Scanning Reade r (Freestyle Miladys 2 Orchard) misc Discontinued 0 .MEDSUPPLY September 07, 2023 12:00am September 07, 2023 2:01pm As directed Flash Glucose Sensor (Freest yle Miladys 2 Sensor) kit (14 sources) Start: 06-18-2024 Flash Glucose Sensor (Freestyle Miladys 2 Sensor) kit Active 0 KIT .MEDSUPPLY June 18, 2024 9:51am As directed Change every 14 Days Start: 06-18-2024 Flash Glucose Sensor (Freestyle Miladys 2 Sensor) kit Active 0 KIT .MEDSUPPLY June 18, 2024 8:51am As directed Change every 14 Days Start: 03-24-2024 End: 06-18-2024 Flash Glucose Sensor (Freest yle Miladys 2 Sensor) kit Discontinued 0 KIT .MEDSUPPLY March 24, 2024 10:37am June 18, 2024 9:51am As directed Change every 14 Days Start: 03-24-2024 End: 06-18-2024 Flash Glucose Sensor (Freest yle Miladys 2 Sensor) kit Discontinued 0 KIT .MEDSUPPLY March 24, 2024 9:37am June 18, 2024 8:51am As directed Change every 14 Days Start: 03-24-2024 End: 03-24-2024 Flash Glucose Sensor (Freest yle Miladys 2 Sensor) kit Discontinued 0 KIT .MEDSUPPLY March 24, 2024 1:00am March 24, 2024 10:37am As directed Change every 14 Days Start: 03-24-2024 End: 03-24-2024 Flash Glucose Sensor (Freest yle Miladys 2 Sensor) kit Discontinued 0 KIT .MEDSUPPLY March 24, 2024 12:00am March 24, 2024 9:37am As directed Change every 14 Days Start: 09-05-2023 End: 03-24-2024 Flash Glucose Sensor (Freest yle Miladys 2 Sensor) kit Discontinued EACH .ROUTE .MEDSUPPLY September 05, 2023 12:00am March 24, 2024 10:36am As directed Start: 09-05-2023 End: 03-24-2024 Flash Glucose Sensor (Freest yle Miladys 2 Sensor) kit Discontinued EACH .ROUTE .MEDSUPPLY September 04, 2023 11:00pm March 24, 2024 9:36am As directed Start: 09-05-2023 Flash Glucose Sensor (Freestyle Miladys 2 Sensor) kit Active EACH .ROUTE .MEDSUPPLY September 05, 2023 12:00am As directed FreeStyle Miladys 2 Orchard - (20 sources) Start: 08-24-2021 FreeStyle Libr e 2 Orchard - as directed SQ 5 x day [...] insulin aspart, human 100 unt/ml pen injector (15 sources) Insulin Analog Start: 01-21-2024 insulin aspart , niacinamide, 100 unit/mL (3 mL) insulin pen 01/21/2024 Active Start: 01-21-2024 Insulin Aspart (Niacinamide) (Fiasp Flextouch U-100 Insulin) 100 unit/mL (3 mL) insulin pen Active 1 sliding scale dose SUBCUT Use as Directed January 21, 2024 12:00am Start: 06-07-2023 Fiasp FlexTouc h 100 UNIT/ML [...] SUBCUT Every evening 60 April 23, 2024 11:46am titrate to 60 u once daily, has written instructions Start: 02-15-2024 End: 04-23-2024 inject 60 [IU] by subcutaneous injection once daily in the evening Insulin Glargine 100 unit/mL (3 mL) insulin pen Discontinued 38 UNIT SUBCUT Every evening 60 February 15, 2024 1:39pm April 23, 2024 10:30am titrate to 60 u once daily, has written instructions Start: 01-21-2024 End: 02-15-2024 inject 60 [IU] by subcutaneous injection once daily in the evening Insulin Glargine 100 unit/mL (3 mL) insulin pen Discontinued 40 UNIT SUBCUT Every evening 60 January 21, 2024 10:36am February 15, 2024 1:40pm titrate to 60 u once daily, has written instructions Start: 09-10-2023 End: 01-21-2024 inject 60 [IU] by subcutaneous injection once daily in the evening Insulin Glargine 100 unit/mL (3 mL) insulin pen Discontinued 42 UNIT SUBCUT Every evening 37.8 90 September 10, 2023 8:44am January 21, 2024 10:16am titrate to 60 u once daily, has written instructions Start: 09-05-2023 End: 09-10-2023 inject 42 [IU] by subcutaneous injection once daily in the evening Insulin Glargine 100 unit/mL (3 mL) insulin pen Discontinued 42 UNIT SUBCUT Every evening September 05, 2023 12:00am September 10, 2023 8:47am Start: 12-19-2022 Lantus SoloSta r 100 UNIT/ML 42 U Subcutaneous AT HS for 90 days TITRATE TO 60 U PER DAY Dec, Active Start: 07-20-2021 Semglee 100 UN IT/ML as directed Subcutaneous Expect up to 60 u per day (ISS 1:40) Jul, Active inject 0.55 mL by juares bcutaneous injection once daily insulin glargine (LANTUS) 100 unit/mL injection Inject 0.55 mL (55 Units total) under the skin nightly. Active Lantus SoloStar 100 UNIT/ML 45 u [...] insurance changed from Lantus to Semglee Active lidocaine 0.05 mg/mg medicated patch (1 source) Antiarrhythmic, Amide Local Anesthetic Start: 04-11-2024 apply 1 dose transdermal route once daily, then apply 1 dose transdermal route every twelve hours lidocaine (LIDODERM) 5 % Indications: Closed fracture of multiple ribs of right side, initial encounter Place 1 patch on the skin daily. Remove & Discard patch within 12 hours or as directed by 30 patch 04/11/2024 Active lisinopril 2.5 mg oral tablet (15 sources) Angiotensin Converting Enzyme Inhibitor Start: 09-05-2023 take 1 tablet by mouth once daily Lisinopril 2.5 mg tablet Active 2.5 MG PO Daily September 05, 2023 12:00am Start: 02-28-2023 take 1 tablet by destiny th every twenty-four hours Lisinopril 5 MG 1 tablet Orally Once a day for 90 days Feb, Active Start: 12-19-2022 take 1 tablet by destiny th every twenty-four hours Lisinopril 2.5 MG 1 tablet Orally Once a day for 30 days Escalate per PCP Dec, Active 24 hr metFORMIN hydrochloride 500 mg extended release oral tablet (20 sources) Biguanide Start: 09-10-2023 End: 06-18-2024 take 1 tablet by mouth once daily at dinner Metformin 500 mg tablet extended release 24 hr Discontinued 1500 MG PO Daily 270 90 April 23, 2024 11:48am June 18, 2024 9:56am 2 tabs with breakfast, one tab with [...] MG PO .am September 10, 2023 8:12am April 23, 2024 1:37pm On Hold: combine in one entry Start: 09-10-2023 End: 09-10-2023 take 1 tablet by mouth once daily at breakfast metFORMIN XR (GLUCOPHAGE XR) 500 mg 24 hr tablet Take 1 tablet (500 mg total) by mouth daily with breakfast. 09/10/2023 Active Start: 09-05-2023 End: 09-10-2023 Metformin 500 mg tablet exte nded release 24 hr Discontinued 1000 MG PO Twice daily September 05, 2023 12:00am September 10, 2023 8:14am Start: 09-05-2023 End: 09-10-2023 Metformin Active 1000 MG PO .am September 10, 2023 8:12am On Hold: combine in one entry Start: 11-11-2021 take 1 tablet by destiny twice daily at dinner, then take 2 tablets by mouth twice daily at mealtime metFORMIN HCl ER 500 MG 1 tablet twice daily with breakfast and dinner Orally Twice daily for 30 day(s) Start 1 tab daily increasing weekly to 2 tabs twice daily with meals. Hold at tolerated dose if side effects Nov, Active take 2 tablets by mo ut at mealtime metFORMIN (Glucophage) 500 MG tablet Take 1,000 mg by mouth in the morning. Take with meals. Active take 2 tablets by mo uth in the morning, then take 1 tablet by mouth twice daily in the evening metFORMIN HCl ER 500 MG 2 TABLET AM, ONE TABLET PM Orally Twice daily for 90 days Active OXcarbazepine 150 mg oral tablet (6 sources) Anti-epileptic Agent Start: 04-07-2024 End: 04-07-2025 take 1 tablet by mouth in the morning, then take 1 tablet by mouth at bedtime OXcarbazepine (TRILEPTAL) 150 mg tablet Take 1 tablet (150 mg total) by mouth in the morning and 1 tablet (150 mg total) before bedtime. 04/07/2024 Active ozempic (0.25 or 0.5 mg/dose) 2 mg/3ml solution pen-injector (4 sources) Ozempic (0.25 or 0.5 MG/DOSE) 2 MG/3ML 0.5 mg Subcutaneous weely for 90 days COPAY CARD Active pen needle, diabetic (Novofine 32) (5 sources) Start: 09-05-2023 pen needle, diabetic (Novofine [...] 40 MG PO Daily September 05, 2023 12:00am Semaglutide (7 sources) Start: 06-18-2024 inject 1 mg by subcutaneous injection every week Semaglutide (Ozempic) 1 mg/dose (4 mg/3 mL) pen injector Active 1 MG SUBCUT every week June 18, 2024 10:37am patient will have [facility] voucher information Start: 06-18-2024 inject 1 mg by subcu taneous injection every week Semaglutide (Ozempic) 1 mg/dose (4 mg/3 mL) pen injector Active 1 MG SUBCUT every week June 18, 2024 9:37am patient will have [employer] voucher information Start: 01-21-2024 End: 06-18-2024 inject 1 mg by subcutaneous injection every week Semaglutide (Ozempic) 1 mg/dose (4 mg/3 mL) pen injector Discontinued 1 MG SUBCUT every week 3 January 21, 2024 12:00am June 18, 2024 10:39am Start: 01-21-2024 End: 06-18-2024 inject 1 mg [...] every week 3 January 21, 2024 12:00am semaglutide (OZEMPIC SUBQ) (1 source) semaglutide (OZE MPIC SUBQ) Inject under the skin See Admin Instructions. Active Semaglutide (OZEMPIC, 0.25 O R 0.5 MG/DOSE, SC) (2 sources) Semaglutide (OZE MPIC, 0.25 OR 0.5 MG/DOSE, SC) Inject under the skin Active sodium chloride 0.9 % inject ion (1 source) Start: 09-23-2016 sodium chlorid e 0.9 % injection 10 mL by intravenous push route as needed. 09/23/2016 Active Completed/Discontinued Medications Medication Drug Class(es) Dates Sig (Normalized) Sig (Original) Insulin Aspart U-100 (Novolog Flexpen U-100 Insulin) 100 unit/mL (3 mL) insulin pen (5 sources) Start: 09-05-2023 End: 09-10-2023 Insulin Aspart U-100 (Novolog Flexpen U-100 Insulin) 100 unit/mL (3 mL) insulin pen Discontinued SUBCUT September 05, 2023 12:00am September 10, 2023 8:11am [id number] ISS Subcutaneous QID; Note: Source Status: Not-TakingundefinedP [facility] LISPRO, ASPART BACK UP; Refills: 1; Qty: [...] Active Insulin Lispro 100 unit/mL insulin pen (6 sources) Start: 09-10-2023 End: 01-21-2024 Insulin Lispro 100 unit/mL insulin pen Discontinued 0 SUBCUT Use as Directed September 10, 2023 8:45am January 21, 2024 10:15am ISS 1:50, expect up to 30 u per day Start: 09-10-2023 End: 01-21-2024 Insulin Lispro 100 unit/mL i nsulin pen Discontinued 0 SUBCUT Use as Directed September 10, 2023 7:45am January 21, 2024 9:15am ISS 1:50, expect up to 30 u per day Start: 09-10-2023 End: 09-10-2023 Insulin Lispro 100 unit/mL i nsulin pen Discontinued 1 sliding scale dose SUBCUT Use as Directed September 10, 2023 12:00am September 10, 2023 8:47am Start: 09-10-2023 End: 09-10-2023 Insulin Lispro 100 unit/mL i nsulin pen Discontinued 1 sliding scale dose SUBCUT Use as Directed September 09, 2023 11:00pm September 10, 2023 7:47am Insulin Lispro-Aabc (Lyumjev Kwikpen U-200 Insulin) 200 unit/mL (3 mL) insulin pen (3 sources) Start: 06-11-2024 End: 06-18-2024 Insulin Lispro-Aabc (Lyumjev Kwikpen U-200 Insulin) 200 unit/mL (3 mL) insulin pen Discontinued 1 sliding scale dose SUBCUT Use as Directed June 11, 2024 1:00am June 18, 2024 9:53am ISS 1:40 ICR 1:10 ACHS TID. Expect up to 40 u per day Start: 06-11-2024 End: 06-18-2024 Insulin Lispro-Aabc (Lyumjev Kwikpen U-200 Insulin) 200 unit/mL (3 mL) insulin pen Discontinued 1 sliding scale dose SUBCUT Use as Directed June 11, 2024 12:00am June 18, 2024 8:53am ISS 1:40 ICR 1:10 ACHS TID. Expect up to 40 u per day Prodigy Autocode Blood Gluco se - (5 sources) Start: 06-17-2020 Prodigy Autoco de Blood Glucose - as directed In Vitro QID for 90 days Jun, Not-Taking Semaglutide (10 sources) Start: 09-10-2023 End: 04-23-2024 Semaglutide (Ozempic) 0.25 m g or 0.5 mg (2 mg/3 mL) pen injector Discontinued 0.5 MG SUBCUT every week 9.568 90 September 10, 2023 8:40am April 23, 2024 1:37pm On Hold: dose change Start: 09-10-2023 End: 04-23-2024 Semaglutide (Ozempic) 0.25 m g or 0.5 mg (2 mg/3 mL) pen injector Discontinued 0.5 MG SUBCUT every week 9.568 September 10, 2023 7:40am April 23, 2024 12:37pm On Hold: dose change Start: 09-10-2023 Semaglutide (O zempic) 0.25 mg or 0.5 mg (2 mg/3 mL) pen injector Active 0.5 MG SUBCUT every week 9.568 90 September 10, 2023 8:40am On Hold: dose change Start: 09-10-2023 Semaglutide (O zempic) 0.25 mg or 0.5 mg (2 mg/3 mL) pen injector Active 0.5 MG SUBCUT every week 9.568 90 September 10, 2023 8:40am Start: 09-05-2023 End: [...] Semglee 100 UNIT/ML 45 units Subcutaneou s [facility] insurance changed from Lantus to Semglee [...] changed from Lantus to Semglee Active Problems Active Problems Problem Classification Problem Date Documented Date Episodic/Chronic Administrative/social admission (20 sources) Dietary counseling and surveillance; Translations: [Patient [...] [Hyperlipidemia, unspecified] Onset: 07-20-2021 Resolved: 11-01-2021 Chronic E Codes: Fall (2 sources) Fall Onset: 04-11-2024 Essential hypertension (20 sources) Hypertensive disorder; Translations: [Essential (primary) hypertension] Onset: 07-20-2021 Resolved: 11-01-2021 Chronic Gangrene (4 sources) 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, right leg; Translations: [Critical lower limb ischemia ] Onset: 09-25-2024 10-23-2024 Chronic Gangrene (4 sources) Gangrene, not elsewhere classified; Translations: [Gangrenous disorder] Onset: 09-25-2024 10-07-2024 Episodic Genitourinary symptoms and ill-defined conditions (20 sources) Proteinuria, unspecified; Translations: [Persistent albuminuria] Onset: 06-18-2024 Episodic Malaise and fatigue (4 sources) Weakness; Translations: [WEAKNESS] Onset: 04-08-2020 Episodic Nutritional deficiencies (20 sources) Vitamin D deficiency; Translations: [Vitamin D deficiency, unspecified] Onset: 07-20-2021 Resolved: 11-01-2021 Chronic Open wounds of extremities (1 source) Amputated big toe; 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, initial encounter] 10-09-2024 Chronic Other aftercare (17 sources) snf (current) use of insulin; Translations: [Long-term (current) use of insulin] Onset: 04-12-2020 Resolved: 11-21-2021 Episodic Other aftercare (20 sources) Long-term 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 insulin; Translations: [long term care phlebotomist (current) use of insulin] 09-05-2023 Episodic Other circulatory disease (1 source) Other specified symptoms and signs involving the circulatory and respiratory systems; Translations: [Other specified symptoms and signs involving the circulatory and respiratory systems] Onset: 10-07-2024 Episodic Other connective tissue disease (2 sources) Neuralgia; Translations: [Neuralgia and neuritis, unspecified] 04-07-2024 Episodic Other fractures (3 sources) Fracture of multiple ribs ; Translations: [...] Episodic Other nutritional; endocrine; and metabolic disorders (7 sources) Body mass index (BMI) 25.0-25.9, adult; Translations: [Body Mass Index 25.0-25.9, adult] Episodic Other nutritional; endocrine; and metabolic disorders (5 sources) Overweight in adulthood with body mass index of 25 or more but less than 30; Translations: [Body mass index (BMI) 25.0-25.9, adult] 09-05-2023 Episodic Other skin disorders (14 sources) Nail deformity; Translations: [Other nail disorders] Episodic Peripheral and visceral atherosclerosis (4 sources) Peripheral vascular disease, unspecified; Translations: [Peripheral vascular disease, unspecified] Onset: 09-25-2024 10-07-2024 Chronic Spondylosis; intervertebral disc disorders; other back problems (2 sources) Degeneration of cervical intervertebral disc; Translations: [Other cervical disc degeneration, unspecified cervical region] 04-07-2024 Chronic Unclassified (1 source) COVID-19; Translations: [COVID-19] Onset: 04-12-2020 Unclassified (1 source) pad critical limb ischemia Onset: 10-17-2024 Unclassified (1 source) Gangrene, PAD. Per Dr. Spears requesting pt to be seen Onset: 09-25-2024 Past or Other Problems Problem Classification Problem Date Documented Da te Episodic/Chronic E Codes: Fall (1 source) Fall on same level from slipping, tripping and stumbling without subsequent striking against object, initial encounter; Translations: [Fall on same level from slipping, tripping and stumbling without subsequent striking against object, initial encounter] Onset: 04-11-2024 Episodic Other fractures (1 source) Multiple fractures of ribs, right side, initial encounter for closed fracture; Translations: [Multiple fractures of ribs, right side, initial encounter for closed fracture] Onset: 04-11-2024 Episodic Skin and subcutaneous tissue infections (1 source) Cellulitis of face; Translations: [Cellulitis of face] Onset: 09-16-2016 09-16-2016 Episodic Results Test Name Value Interpretation Reference Range Facility POCT BUN, CREATon 10-17-2024 Creatinine [Mass/Vol] 1.1 mg/dL Normal 0.7-1.2 [facility] Comment on above: Performed By: #### I #### [facility] ([facility]) [address] [place] [address] VIR GFR/1.73 sq M.predicted among non-blacks MDRD (S/P/Bld) [Vol rate/Area] 75 mL/min/{1.73_m2} Normal >=60 [facility] Comment on above: Result Comment: Repo rted eGFR is based on the CKD-EPI 2020 equation that does not use a race coefficient. Performed By: #### I BC #### [facility] ([facility]) [address] [place] [address] VIR Urea nitrogen [Mass/Vol] 17 mg/dL Normal 6-27 [facility] Comment on above: Performed By: #### I BC #### [facility] ([facility]) [address] [place] [address] VIR PORTABLE GLUCOSEon 5 Glucose [Mass/Vol] 89 mg/dL Normal 65-99 [facility] Comment on above: Performed By: #### I GLU #### [facility] ([facility]) [address] [place] [address] VIR Basophils Auto (Bld) [#/Vol] on 09-23-2024 Basophils (Bld) [#/Vol] Automated basophil count 0.0-0.1 [facility] Basophils/100 WBC Auto (Bld) on 09-23-2024 Basophils/100 WBC (Bld) Automated basophil % 0.2-2.0 [facility] Eosinophils/100 WBC Auto (Bl d)on 09-23-2024 Eosinophils/100 WBC (Bld) Automated eosinophil % Low 0.9-7.0 [facility] Erythrocyte distribution wid th Auto (RBC) [Ratio]on 09-23-2024 Erythrocyte distribution width (RBC) [Ratio] Erythrocyte distribution width [Ratio] by Automated count 11.0-15.0 [facility] Estimated glomerular filtrat ion rate (GFR) non- Americanon 09-23-2024 GFR/1.73 sq M.predicted among non-blacks MDRD (S/P/Bld) [Vol rate/Area] Estimated glomerular filtration rate (GFR) non- >=60 mL/min/1.73m 2 [facility] Globulin Calc (S) [Mass/Vol] on 09-23-2024 Globulin (S) [Mass/Vol] Serum globulin measurement by calculation (mass/volume) [facility] Hematocrit Auto (Bld) [Volum e fraction]on 09-23-2024 Hematocrit (Bld) [Volume fraction] Hematocrit [Volume Fraction] of Blood by Automated count Low 42.0-54.0 [facility] Hemoglobin [Mass/volume] in Bloodon 09-23-2024 Hemoglobin (Bld) [Mass/Vol] Hemoglobin [Mass/volume] in Blood Low 14.0-18.0 [facility] Gavino 09-23-2024 L - -------- Specimen: [id number] Received: 09/23/24-1299 Status: LORENA Childs Num: [id number] Spec Type: Surgical Subm Dr: Mayra Spears,DPM, MS Tissues: A DIGIT AMPUTATION (RIGHT DISTAL PHALANX) B DIGIT AMPUTATION (RIGHT PROXIMAL PHALANX) Procedures: HE/3, Gross/Micro L4/2, Decalcification/2 -------- Age/ Patient Sex Location Account Attending Physician -------- Jassi Rodriguez 64/M LABELL [id number] Marya Spears DPM, [place] -------- SPEC NUM: [id number] RECD: 09/23/24 STATUS: LORENA COSTELLOSandeep NUM: [id number] SCOTT: 09/23/[address] [facility] [address]: Mayra Spears DPM, [place] ENTERED: 09/23/24-[address]: Megan,Lab SPEC TYPE: Surgical DEPT: [facility]AN[facility] MURRAY ENTERED BY: [id number] RECV BY: [id number] ORDERED: HE/3, Gross/Micro L4/2, Decalcification/2 ORDERED: HE/3, Gross/Micro L4/2, Decalcification/2 Pathological Diagnosis A, distal phalanx of right great toe, partial amputation: - Severe gangrenous ulceration of the mixed dry and wet (deeper inner portion) types, focally extending to the distal tip of underneath phalanx bone, with marked fibrosis, patchy mild congestion, and occasional mild acute and chronic inflammation of the degenerated medullary portion, consistent with underlying minor persistent acute osteomyelitis -Viable proximal skin margin except 1 small focus of necrotizing acute inflammation in subcutis of 1 examined section B, proximal phalanx of the right great toe, partial amputation: - Viable toe bone biopsy with several small foci of acute inflammation in the slightly broken subcortical area, consistent with mild evolving acute osteomyelitis Clinical Information Acute cellulitis, dry gangrene right great toe -------- Specimen: [id number] Received: 09/23/24 Status: LOERNA Childs Num: [id number] Spec Type: Surgical Subm Dr: Mayra Spears,AN, [place] Tissues: A DIGIT AMPUTATION (RIGHT DISTAL PHALANX) B DIGIT AMPUTATION (RIGHT PROXIMAL PHALANX) Procedures: HE/3, Gross/Micro L4/2, Decalcification/2 -------- Patient: Jassi Rodriguez SR [id number] (Continued) -------- Specimen: [id number] Received: 09/23/24 (Continued) Signed (signature on file) Mingo Mejia MD 09/26/24 1340 -------- Specimen: [id number] Received: 09/23/24 Status: LORENA Childs Num: [id number] Spec Type: Surgical Subm Dr: Peter Highlander,DPM, [place] Tissues: A DIGIT AMPUTATION (RIGHT DISTAL PHALANX) B DIGIT AMPUTATION (RIGHT PROXIMAL PHALANX) Procedures: HE/3, Gross/Micro L4/2, Decalcification/2 -------- Patient: Jassi Rodriguez [id number] (Continued) -------- Specimen: [id number] Received: 09/23/24-1300 (Continued) Gross Description Part A is received in formalin labeled with the patients name, date of , and right distal phalanx is a digit disarticulated at the right, first interphalangeal joint, 3.5 cm in length by up to 3.7 cm in diameter. The distal aspect of the specimen displays a purple- green indurated area, 3.5 x 1.5 cm that is situated 0.3 cm from the proximal skin margin. A community engagement representative section of the indurated area and underlying distal phalanx is submitted in A1 after decalcification with tangential cross-sections of the proximal skin margin submitted in A2. (2, , [id number] A) Part B is received in formalin labeled with the patients name, date of , and right proximal phalanx is a cylindrical segment of bone, 3 cm in length by up to 2 cm in diameter. 1 surface of the specimen is convex, smooth and glistening, consistent with an articular surface, while the opposing surface is flat and rough, consistent with surgical resection margin. A longitudinal section of the bone is submitted in B1 after decalcification. (1, , [id number] B)Miguel Microscopic Description Microscopic examination is performed CPT Codes 20518w1 [id number] -------- -------- Specimen: [id number] Received: 09/23/ (more content not included)... Normal [facility] Laboratory - Chemistry and C hemistry - challengeon 09-23-2024 Albumin [Mass/Vol] 1.8 g/dL Low 3.4-5.0 [facility] ALP [Catalytic activity/Vol] 76 U/L 46-116 [facility] ALT [Catalytic activity/Vol] 15 U/L Low 16-63 [facility] AST [Catalytic activity/Vol] 22 U/L 15-37 [facility] Bilirubin [Mass/Vol] 0.3 mg/dL 0.2-1.0 [facility] Calcium [Mass/Vol] 9.0 mg/dL 8.5-10.1 [facility] Chloride [Moles/Vol] 103 mmol/L 98-107 [facility] CO2 [Moles/Vol] 26.0 mmol/L 21.0-32.0 [facility] Creatinine [Mass/Vol] 0.94 mg/dL 0.70-1.30 [facility] GFR/1.73 sq M.predicted MDRD (S/P/Bld) [Vol rate/Area] mL/min/{1.73_m2} >=60 mL/min/1.73m 2 [facility] Glucose [Mass/Vol] 124 mg/dL High 74-106 [facility] Potassium [Moles/Vol] 4.1 mmol/L 3.5-5.1 [facility] Protein [Mass/Vol] 7.4 g/dL 6.4-8.2 [facility] Sodium [Moles/Vol] 139 mmol/L 136-145 [facility] Urea nitrogen [Mass/Vol] 22.0 mg/dL High 7.0-18.0 [facility] Urea nitrogen/Creatinine [Mass ratio] 23.4 mg/mg [facility] Laboratory - Hematology and Cell countson 09-23-2024 Immature granulocytes/100 WBC (Bld) 0.3 % 0.0-0.5 [facility] Leukocytes [#/volume] correc markie for nucleated erythrocytes in Blood by Automated counon 09-23-2024 WBC corrected for nucl RBC Auto (Bld) [#/Vol] Leukocytes [#/volume] corrected for nucleated erythrocytes in Blood by Automated coun 4.0-11.0 [facility] Lymphocytes Auto (Bld) [#/Vo l]on 09-23-2024 Lymphocytes (Bld) [#/Vol] Lymphocytes [#/volume] in Blood by Automated count 1.2-3.8 [facility] Lymphocytes/100 WBC Auto (Bl d)on 09-23-2024 Lymphocytes/100 WBC (Bld) Lymphocytes/100 leukocytes in Blood by Automated count Low 20.5-60.0 [facility] MCH Auto (RBC) [Entitic mass ]on 09-23-2024 MCH (RBC) [Entitic mass] MCH [Entitic mass] by Automated count 25.9-34.0 [facility] MCHC Auto (RBC) [Mass/Vol]on 09-23-2024 MCHC (RBC) [Mass/Vol] MCHC [Mass/volume] by Automated count 29.9-35.2 [facility] MCV Auto (RBC) [Entitic vol] on 09-23-2024 MCV (RBC) [Entitic vol] MCV [Entitic volume] by Automated count 80.0-94.0 [facility] Monocytes Auto (Bld) [#/Vol] on 09-23-2024 Monocytes (Bld) [#/Vol] Automated blood monocyte count High 0.3-0.8 [facility] Monocytes/100 WBC Auto (Bld) on 09-23-2024 Monocytes/100 WBC (Bld) Automated monocyte % High 1.7-12.0 [facility] Neutrophils Auto (Bld) [#/Vo l]on 09-23-2024 Neutrophils (Bld) [#/Vol] Neutrophils [#/volume] in Blood by Automated count 1.4-6.5 [facility] Neutrophils/100 WBC Auto (Bl d)on 09-23-2024 Neutrophils/100 WBC (Bld) Automated neutrophil % 43.0-75.0 [facility] No Panel Informationon 09-23 C-Reactive Protein, Quantitative 3.19 mg/dL High <=0.50 [facility] Eosinophils # (Auto) 0.0 10 3/uL 0.0-0.7 [facility] Immature Granulocyte # (Auto) 0.03 10 3/uL 0.00-0.03 [facility] Platelet mean volume Auto (B ld) [Entitic vol]on 09-23-2024 Platelet mean volume (Bld) [Entitic vol] Platelet mean volume [Entitic volume] in Blood by Automated count 9.5-13.5 [facility] Platelets Auto (Bld) [#/Vol] on 09-23-2024 Platelets (Bld) [#/Vol] Platelets [#/volume] in Blood by Automated count 150-450 [facility] RBC Auto (Bld) [#/Vol]on RBC (Bld) [#/Vol] Erythrocytes [#/volume] in Blood by Automated count Low 4.70-6.10 [facility] Serum or plasma albumin/glob ulin mass ratioon 09-23-2024 Albumin/Globulin [Mass ratio] Serum or plasma albumin/globulin mass ratio [facility] Serum or plasma anion gap de terminationon 09-23-2024 Anion gap [Moles/Vol] Serum or plasma anion gap determination [facility] Basophils Auto (Bld) [#/Vol] on 09-22-2024 Basophils (Bld) [#/Vol] Automated basophil count 0.0-0.1 [facility] Basophils/100 WBC Auto (Bld) on 09-22-2024 Basophils/100 WBC (Bld) Automated basophil % 0.2-2.0 [facility] Eosinophils/100 WBC Auto (Bl d)on 09-22-2024 Eosinophils/100 WBC (Bld) Automated eosinophil % Low 0.9-7.0 [facility] Erythrocyte distribution wid th Auto (RBC) [Ratio]on 09-22-2024 Erythrocyte distribution width (RBC) [Ratio] Erythrocyte distribution width [Ratio] by Automated count 11.0-15.0 [facility] Estimated glomerular filtrat ion rate (GFR) non- Americanon 09-22-2024 GFR/1.73 sq M.predicted among non-blacks MDRD (S/P/Bld) [Vol rate/Area] Estimated glomerular filtration rate (GFR) non- >=60 mL/min/1.73m 2 [facility] Globulin Calc (S) [Mass/Vol] on 09-22-2024 Globulin (S) [Mass/Vol] Serum globulin measurement by calculation (mass/volume) [facility] Hematocrit Auto (Bld) [Volum e fraction]on 09-22-2024 Hematocrit (Bld) [Volume fraction] Hematocrit [Volume Fraction] of Blood by Automated count Low 42.0-54.0 [facility] Hemoglobin [Mass/volume] in Bloodon 09-22-2024 Hemoglobin (Bld) [Mass/Vol] Hemoglobin [Mass/volume] in Blood Low 14.0-18.0 [facility] Laboratory - Chemistry and C hemistry - challengeon 09-22-2024 Albumin [Mass/Vol] 1.9 g/dL Low 3.4-5.0 [facility] ALP [Catalytic activity/Vol] 74 U/L 46-116 [facility] ALT [Catalytic activity/Vol] 15 U/L Low 16-63 [facility] AST [Catalytic activity/Vol] 20 U/L 15-37 [facility] Bilirubin [Mass/Vol] 0.4 mg/dL 0.2-1.0 [facility] Calcium [Mass/Vol] 8.7 mg/dL 8.5-10.1 [facility] Chloride [Moles/Vol] 102 mmol/L 98-107 [facility] CO2 [Moles/Vol] 23.7 mmol/L 21.0-32.0 [facility] Creatinine [Mass/Vol] 0.99 mg/dL 0.70-1.30 [facility] GFR/1.73 sq M.predicted MDRD (S/P/Bld) [Vol rate/Area] mL/min/{1.73_m2} >=60 mL/min/1.73m 2 [facility] Glucose [Mass/Vol] 87 mg/dL 74-106 [facility] Potassium [Moles/Vol] 4.4 mmol/L 3.5-5.1 [facility] Protein [Mass/Vol] 7.3 g/dL 6.4-8.2 [facility] Sodium [Moles/Vol] 137 mmol/L 136-145 [facility] Urea nitrogen [Mass/Vol] 21.0 mg/dL High 7.0-18.0 [facility] Urea nitrogen/Creatinine [Mass ratio] 21.2 mg/mg [facility] Laboratory - Hematology and Cell countson 09-22-2024 Immature granulocytes/100 WBC (Bld) 0.4 % 0.0-0.5 [facility] Leukocytes [#/volume] correc markie for nucleated erythrocytes in Blood by Automated counon 09-22-2024 WBC corrected for nucl RBC Auto (Bld) [#/Vol] Leukocytes [#/volume] corrected for nucleated erythrocytes in Blood by Automated coun 4.0-11.0 [facility] Lymphocytes Auto (Bld) [#/Vo l]on 09-22-2024 Lymphocytes (Bld) [#/Vol] Lymphocytes [#/volume] in Blood by Automated count 1.2-3.8 [facility] Lymphocytes/100 WBC Auto (Bl d)on 09-22-2024 Lymphocytes/100 WBC (Bld) Lymphocytes/100 leukocytes in Blood by Automated count Low 20.5-60.0 [facility] MCH Auto (RBC) [Entitic mass ]on 09-22-2024 MCH (RBC) [Entitic mass] MCH [Entitic mass] by Automated count 25.9-34.0 [facility] MCHC Auto (RBC) [Mass/Vol]on 09-22-2024 MCHC (RBC) [Mass/Vol] MCHC [Mass/volume] by Automated count 29.9-35.2 [facility] MCV Auto (RBC) [Entitic vol] on 09-22-2024 MCV (RBC) [Entitic vol] MCV [Entitic volume] by Automated count 80.0-94.0 [facility] Monocytes Auto (Bld) [#/Vol] on 09-22-2024 Monocytes (Bld) [#/Vol] Automated blood monocyte count High 0.3-0.8 [facility] Monocytes/100 WBC Auto (Bld) on 09-22-2024 Monocytes/100 WBC (Bld) Automated monocyte % High 1.7-12.0 [facility] Neutrophils Auto (Bld) [#/Vo l]on 09-22-2024 Neutrophils (Bld) [#/Vol] Neutrophils [#/volume] in Blood by Automated count High 1.4-6.5 [facility] Neutrophils/100 WBC Auto (Bl d)on 09-22-2024 Neutrophils/100 WBC (Bld) Automated neutrophil % 43.0-75.0 [facility] No Panel Informationon 09-22 Vancomycin Level Trough 18.3 ug/mL 5.0-20.0 [facility] C-Reactive Protein, Quantitative 4.29 mg/dL High <=0.50 [facility] Eosinophils # (Auto) 0.0 10 3/uL 0.0-0.7 [facility] Immature Granulocyte # (Auto) 0.04 10 3/uL High 0.00-0.03 [facility] Platelet mean volume Auto (B ld) [Entitic vol]on 09-22-2024 Platelet mean volume (Bld) [Entitic vol] Platelet mean volume [Entitic volume] in Blood by Automated count 9.5-13.5 [facility] Platelets Auto (Bld) [#/Vol] on 09-22-2024 Platelets (Bld) [#/Vol] Platelets [#/volume] in Blood by Automated count 150-450 [facility] RBC Auto (Bld) [#/Vol]on RBC (Bld) [#/Vol] Erythrocytes [#/volume] in Blood by Automated count Low 4.70-6.10 [facility] Serum or plasma albumin/glob ulin mass ratioon 09-22-2024 Albumin/Globulin [Mass ratio] Serum or plasma albumin/globulin mass ratio [facility] Serum or plasma anion gap de terminationon 09-22-2024 Anion gap [Moles/Vol] Serum or plasma anion gap determination [facility] Basophils Auto (Bld) [#/Vol] on 09-21-2024 Basophils (Bld) [#/Vol] Automated basophil count 0.0-0.1 [facility] Basophils/100 WBC Auto (Bld) on 09-21-2024 Basophils/100 WBC (Bld) Automated basophil % 0.2-2.0 [facility] Eosinophils/100 WBC Auto (Bl d)on 09-21-2024 Eosinophils/100 WBC (Bld) Automated eosinophil % Low 0.9-7.0 [facility] Erythrocyte distribution wid th Auto (RBC) [Ratio]on 09-21-2024 Erythrocyte distribution width (RBC) [Ratio] Erythrocyte distribution width [Ratio] by Automated count 11.0-15.0 [facility] Estimated glomerular filtrat ion rate (GFR) non- Americanon 09-21-2024 GFR/1.73 sq M.predicted among non-blacks MDRD (S/P/Bld) [Vol rate/Area] Estimated glomerular filtration rate (GFR) non- >=60 mL/min/1.73m 2 [facility] Globulin Calc (S) [Mass/Vol] on 09-21-2024 Globulin (S) [Mass/Vol] Serum globulin measurement by calculation (mass/volume) [facility] Hematocrit Auto (Bld) [Volum e fraction]on 09-21-2024 Hematocrit (Bld) [Volume fraction] Hematocrit [Volume Fraction] of Blood by Automated count Low 42.0-54.0 [facility] Hemoglobin [Mass/volume] in Bloodon 09-21-2024 Hemoglobin (Bld) [Mass/Vol] Hemoglobin [Mass/volume] in Blood Low 14.0-18.0 [facility] Laboratory - Chemistry and C hemistry - challengeon 09-21-2024 Albumin [Mass/Vol] 1.9 g/dL Low 3.4-5.0 [facility] ALP [Catalytic activity/Vol] 79 U/L 46-116 [facility] ALT [Catalytic activity/Vol] 16 U/L 16-63 [facility] AST [Catalytic activity/Vol] 21 U/L 15-37 [facility] Bilirubin [Mass/Vol] 0.5 mg/dL 0.2-1.0 [facility] Calcium [Mass/Vol] 8.8 mg/dL 8.5-10.1 [facility] Chloride [Moles/Vol] 103 mmol/L 98-107 [facility] CO2 [Moles/Vol] 24.5 mmol/L 21.0-32.0 [facility] Creatinine [Mass/Vol] 1.18 mg/dL 0.70-1.30 [facility] GFR/1.73 sq M.predicted MDRD (S/P/Bld) [Vol rate/Area] mL/min/{1.73_m2} >=60 mL/min/1.73m 2 [facility] Glucose [Mass/Vol] 106 mg/dL 74-106 [facility] Potassium [Moles/Vol] 4.6 mmol/L 3.5-5.1 [facility] Protein [Mass/Vol] 7.5 g/dL 6.4-8.2 [facility] Sodium [Moles/Vol] 137 mmol/L 136-145 [facility] Urea nitrogen [Mass/Vol] 24.0 mg/dL High 7.0-18.0 [facility] Urea nitrogen/Creatinine [Mass ratio] 20.3 mg/mg [facility] Laboratory - Hematology and Cell countson 09-21-2024 Immature granulocytes/100 WBC (Bld) 0.5 % 0.0-0.5 [facility] Leukocytes [#/volume] correc markie for nucleated erythrocytes in Blood by Automated counon 09-21-2024 WBC corrected for nucl RBC Auto (Bld) [#/Vol] Leukocytes [#/volume] corrected for nucleated erythrocytes in Blood by Automated coun High 4.0-11.0 [facility] Lymphocytes Auto (Bld) [#/Vo l]on 09-21-2024 Lymphocytes (Bld) [#/Vol] Lymphocytes [#/volume] in Blood by Automated count 1.2-3.8 [facility] Lymphocytes/100 WBC Auto (Bl d)on 09-21-2024 Lymphocytes/100 WBC (Bld) Lymphocytes/100 leukocytes in Blood by Automated count Low 20.5-60.0 [facility] MCH Auto (RBC) [Entitic mass ]on 09-21-2024 MCH (RBC) [Entitic mass] MCH [Entitic mass] by Automated count 25.9-34.0 [facility] MCHC Auto (RBC) [Mass/Vol]on 09-21-2024 MCHC (RBC) [Mass/Vol] MCHC [Mass/volume] by Automated count 29.9-35.2 [facility] MCV Auto (RBC) [Entitic vol] on 09-21-2024 MCV (RBC) [Entitic vol] MCV [Entitic volume] by Automated count 80.0-94.0 [facility] Monocytes Auto (Bld) [#/Vol] on 09-21-2024 Monocytes (Bld) [#/Vol] Automated blood monocyte count High 0.3-0.8 [facility] Monocytes/100 WBC Auto (Bld) on 09-21-2024 Monocytes/100 WBC (Bld) Automated monocyte % High 1.7-12.0 [facility] Neutrophils Auto (Bld) [#/Vo l]on 09-21-2024 Neutrophils (Bld) [#/Vol] Neutrophils [#/volume] in Blood by Automated count High 1.4-6.5 [facility] Neutrophils/100 WBC Auto (Bl d)on 09-21-2024 Neutrophils/100 WBC (Bld) Automated neutrophil % 43.0-75.0 [facility] No Panel Informationon 09-21 Eosinophils # (Auto) 0.0 10 3/uL 0.0-0.7 [facility] Immature Granulocyte # (Auto) 0.06 10 3/uL High 0.00-0.03 [facility] Platelet mean volume Auto (B ld) [Entitic vol]on 09-21-2024 Platelet mean volume (Bld) [Entitic vol] Platelet mean volume [Entitic volume] in Blood by Automated count 9.5-13.5 [facility] Platelets Auto (Bld) [#/Vol] on 09-21-2024 Platelets (Bld) [#/Vol] Platelets [#/volume] in Blood by Automated count 150-450 [facility] RBC Auto (Bld) [#/Vol]on RBC (Bld) [#/Vol] Erythrocytes [#/volume] in Blood by Automated count Low 4.70-6.10 [facility] Serum or plasma albumin/glob ulin mass ratioon 09-21-2024 Albumin/Globulin [Mass ratio] Serum or plasma albumin/globulin mass ratio [facility] Serum or plasma anion gap de terminationon 09-21-2024 Anion gap [Moles/Vol] Serum or plasma anion gap determination [facility] Basophils Auto (Bld) [#/Vol] on 09-20-2024 Basophils (Bld) [#/Vol] Automated basophil count 0.0-0.1 [facility] Basophils/100 WBC Auto (Bld) on 09-20-2024 Basophils/100 WBC (Bld) Automated basophil % 0.2-2.0 [facility] Eosinophils/100 WBC Auto (Bl d)on 09-20-2024 Eosinophils/100 WBC (Bld) Automated eosinophil % Low 0.9-7.0 [facility] Erythrocyte distribution wid th Auto (RBC) [Ratio]on 09-20-2024 Erythrocyte distribution width (RBC) [Ratio] Erythrocyte distribution width [Ratio] by Automated count 11.0-15.0 [facility] Estimated glomerular filtrat ion rate (GFR) non- Americanon 09-20-2024 GFR/1.73 sq M.predicted among non-blacks MDRD (S/P/Bld) [Vol rate/Area] Estimated glomerular filtration rate (GFR) non- Low >=60 mL/min/1.73m 2 [facility] Globulin Calc (S) [Mass/Vol] on 09-20-2024 Globulin (S) [Mass/Vol] Serum globulin measurement by calculation (mass/volume) [facility] Hematocrit Auto (Bld) [Volum e fraction]on 09-20-2024 Hematocrit (Bld) [Volume fraction] Hematocrit [Volume Fraction] of Blood by Automated count Low 42.0-54.0 [facility] Hemoglobin [Mass/volume] in Bloodon 09-20-2024 Hemoglobin (Bld) [Mass/Vol] Hemoglobin [Mass/volume] in Blood 14.0-18.0 [facility] Laboratory - Chemistry and C hemistry - challengeon 09-20-2024 Albumin [Mass/Vol] 2.4 g/dL Low 3.4-5.0 [facility] ALP [Catalytic activity/Vol] 101 U/L 46-116 [facility] ALT [Catalytic activity/Vol] 25 U/L 16-63 [facility] AST [Catalytic activity/Vol] 28 U/L 15-37 [facility] Bilirubin [Mass/Vol] 0.7 mg/dL 0.2-1.0 [facility] Calcium [Mass/Vol] 9.6 mg/dL 8.5-10.1 [facility] Chloride [Moles/Vol] 99 mmol/L 98-107 [facility] CO2 [Moles/Vol] 28.1 mmol/L 21.0-32.0 [facility] Creatinine [Mass/Vol] 1.37 mg/dL High 0.70-1.30 [facility] GFR/1.73 sq M.predicted MDRD (S/P/Bld) [Vol rate/Area] mL/min/{1.73_m2} >=60 mL/min/1.73m 2 [facility] Glucose [Mass/Vol] 130 mg/dL High 74-106 [facility] Potassium [Moles/Vol] 4.5 mmol/L 3.5-5.1 [facility] Protein [Mass/Vol] 9.0 g/dL High 6.4-8.2 [facility] Sodium [Moles/Vol] 132 mmol/L Low 136-145 [facility] Urea nitrogen [Mass/Vol] 18.0 mg/dL 7.0-18.0 [facility] Urea nitrogen/Creatinine [Mass ratio] 13.1 mg/mg [facility] Laboratory - Hematology and Cell countson 09-20-2024 ESR (Bld) [Velocity] mm/h High <=20 [facility] Immature granulocytes/100 WBC (Bld) 0.3 % 0.0-0.5 [facility] Leukocytes [#/volume] correc markie for nucleated erythrocytes in Blood by Automated counon 09-20-2024 WBC corrected for nucl RBC Auto (Bld) [#/Vol] Leukocytes [#/volume] corrected for nucleated erythrocytes in Blood by Automated coun High 4.0-11.0 [facility] Lymphocytes Auto (Bld) [#/Vo l]on 09-20-2024 Lymphocytes (Bld) [#/Vol] Lymphocytes [#/volume] in Blood by Automated count 1.2-3.8 [facility] Lymphocytes/100 WBC Auto (Bl d)on 09-20-2024 Lymphocytes/100 WBC (Bld) Lymphocytes/100 leukocytes in Blood by Automated count Low 20.5-60.0 [facility] MCH Auto (RBC) [Entitic mass ]on 09-20-2024 MCH (RBC) [Entitic mass] MCH [Entitic mass] by Automated count 25.9-34.0 [facility] MCHC Auto (RBC) [Mass/Vol]on 09-20-2024 MCHC (RBC) [Mass/Vol] MCHC [Mass/volume] by Automated count 29.9-35.2 [facility] [facility] MCV Auto (RBC) [Entitic vol] on 09-20-2024 MCV (RBC) [Entitic vol] MCV [Entitic volume] by Automated count 80.0-94.0 [facility] Monocytes Auto (Bld) [#/Vol] on 09-20-2024 Monocytes (Bld) [#/Vol] Automated blood monocyte count High 0.3-0.8 [facility] Monocytes/100 WBC Auto (Bld) on 09-20-2024 Monocytes/100 WBC (Bld) Automated monocyte % High 1.7-12.0 [facility] Neutrophils Auto (Bld) [#/Vo l]on 09-20-2024 Neutrophils (Bld) [#/Vol] Neutrophils [#/volume] in Blood by Automated count High 1.4-6.5 [facility] Neutrophils/100 WBC Auto (Bl d)on 09-20-2024 Neutrophils/100 WBC (Bld) Automated neutrophil % 43.0-75.0 [facility] No Panel Informationon 09-20 C-Reactive Protein, Quantitative 6.32 mg/dL High <=0.50 [facility] Eosinophils # (Auto) 0.0 10 3/uL 0.0-0.7 [facility] Immature Granulocyte # (Auto) 0.04 10 3/uL High 0.00-0.03 [facility] Platelet mean volume Auto (B ld) [Entitic vol]on 09-20-2024 Platelet mean volume (Bld) [Entitic vol] Platelet mean volume [Entitic volume] in Blood by Automated count 9.5-13.5 [facility] Platelets Auto (Bld) [#/Vol] on 09-20-2024 Platelets (Bld) [#/Vol] Platelets [#/volume] in Blood by Automated count 150-450 [facility] RBC Auto (Bld) [#/Vol]on RBC (Bld) [#/Vol] Erythrocytes [#/volume] in Blood by Automated count Low 4.70-6.10 [facility] Serum or plasma albumin/glob ulin mass ratioon 09-20-2024 Albumin/Globulin [Mass ratio] Serum or plasma albumin/globulin mass ratio [facility] Serum or plasma anion gap de terminationon 09-20-2024 Anion gap [Moles/Vol] Serum or plasma anion gap determination [facility] Creatinine [Mass/volume] in UrineOrdered By: Yolette Pierre on 06-18-2024 Creatinine (U) [Mass/Vol] Creatinine [Mass/volume] in Urine [facility] Comment on above: No reference range e stablished MicroAlb Creat Ratio,Uon Albumin DL <= 20 mg/L (U) [Mass/Vol] mg/dL High 0.0-1.8 [facility] Comment on above: Performed By: #### U RMACRERAT #### [facility] [address] Creatinine, Urine (Random) 123.00 mg/dL Normal [facility] Comment on above: Result Comment: No r eference range established Performed By: #### U RMACRERAT #### [facility] [address] Microalbumin/Creati nine Ratio Not performed Normal 0.0-30.0 [facility] Comment on above: Result Comment: PERF ORMED BY: [place] [address] PATHOLOGIST WASH BOX OPERATOR JAMIL BONILLA M.D. Performed By: #### U RMACRERAT #### [facility] [address] Microalbumin [Mass/volume] i n UrineOrdered By: Yolette Pierre on 06-18-2024 Albumin DL <= 20 mg/L (U) [Mass/Vol] Microalbumin [Mass/volume] in Urine High 0.0-1.8 [facility] Urine microalbumin/creatinin e mass ratioOrdered By: Yolette Pierre on 06-18-2024 Albumin/Creatinine DL <= 20 mg/L (U) [Mass ratio] Urine microalbumin/creatini ne mass ratio [facility] Comment on above: Test not performed HbA1c HPLC (Bld) [Mass fract ion]on 04-23-2024 HbA1c (Bld) [Mass fraction] Hemoglobin A1c/Hemoglobin.total in Blood by HPLC [facility] No Panel Informationon 04-23 Bedside Glucose [address] [facility] [address] ABDOMEN WO CONTon 024 CT ABDOMEN WO CONT CT ABDOMEN WO CONT HISTORY and Tech Notes: Abdominal trauma, gross hematuria Pain after fall PROCEDURE: Noncontrast CT of the upper abdomen Automated exposure control was utilized COMPARISON: No comparison The chest CT from the same day should be reported separate FINDINGS: The solid organ detail is suboptimal without contrast No visible solid organ laceration or hematoma UPPER ABDOMEN: No splenomegaly. No peripancreatic fluid collections. Solid organ detail suboptimal without contrast. No adrenal mass No large hiatal hernia Gallbladder is not dilated. No perihepatic fluid Mild vascular calcification in the aorta and branches; moderate coronary calcification PELVIS: No hydronephrosis or ureter stone seen. The pelvis is not fully imaged or included in the exam No sign of a bowel obstruction. No sign of an abdominal aortic aneurysm or retroperitoneal bleed. No sign to suggest acute appendicitis. LUNG BASE EVALUATION Trace right pleural effusion or pleural hematoma with some basilar atelectasis and/or edema bilaterally Refer to the separate chest report. BONE RECONSTRUCTIONS Fracture deformity of the right posterior ninth and 10th and 11th rib No compression fracture No sign of discitis Mild chronic small no deformities. IMPRESSION: Fractures of the right posterior ninth and 10th and 11th rib with small pleural effusion or hematoma and basilar atelectasis and edema No acute abdominal posttraumatic findings are seen otherwise on this noncontrast study All CT scans at this facility use dose modulation, iterative reconstruction, and/or weight based dosing when appropriate to reduce radiation dose to as low as reasonably achievable. ----- Finalized by Robinson Camarena MD on 04/11/2024 11:15 AM Normal [facility] CT CHEST WO CONTon CT CHEST WO CONT CT CHEST WO CONT CT Chest without contrast History: Recent fall. Complains of rib pain. Fell yesterday Comparison: 09/16/2016 Technique: Axial images through the thorax were obtained followed by sagittal and coronal reconstructed images. Automated exposure control was used. without contrast. Findings: Right pleural effusion with minimal the inferior dependent atelectasis. No definite consolidative airspace disease or aspiration. The lack of IV contrast limits mediastinal assessment. No definite mass is observed. No pericardial effusion is appreciated. The thoracic aorta has a normal size. Multiple posterior right rib fractures are present. Probable nondisplaced right first rib fracture nondisplaced posterior proximal right eighth rib fracture. The ninth rib is fractured in multiple places, posteriorly and laterally. The right 10th fracture is displaced posteriorly. Separate displaced lateral fracture is noted. The 11th rib is fractured as well no sternal fracture. No vertebral body fracture is appreciated. No fracture of the spinous processes is seen Coronary artery calcifications are present in multiple vessels. Impression: * Multiple right rib fractures are present. There is a right pleural effusion with some compressive atelectasis in the inferior right lower lobe. Please see above discussion. All CT scans at this facility use dose modulation, iterative reconstruction, and/or weight based dosing when appropriate to reduce radiation dose to as low as reasonably achievable. Finalized by Camille Guido MD on 04/11/2024 11:15 AM Normal [facility] HbA1c HPLC (Bld) [Mass fract ion]on 09-10-2023 HbA1c (Bld) [Mass fraction] 6.4 % [facility] No Panel Informationon 09-09 Bedside Glucose 126 [facility] A1C HEMOGLOBINon 06-05-2023 HbA1c (Bld) [Mass fraction] 6.9 % [facility] Other Glucose - FINGER STICKon Glucose [Mass/Vol] 132 mg/dL [facility] Other HbA1c (Bld) [Mass fraction]o n 06-05-2023 A1C HEMOGLOBIN [facility] Other A1C HEMOGLOBINon 02-27-2023 HbA1c (Bld) [Mass fraction] 6.4 % [facility] Other Creatinine [Mass/volume] in UrineOrdered By: Yolette Pierre on 02-27-2023 Creatinine (U) [Mass/Vol] 89.0 mg/dL 14.0-26.0 [facility] Glucose - FINGER STICKon Glucose [Mass/Vol] 132 mg/dL [facility] Other HbA1c (Bld) [Mass fraction]o n 02-27-2023 A1C HEMOGLOBIN [facility] Other MicroAlb Creat Ratio,Uon Creatinine (U) [Mass/Vol] 89.9487321 mg/dL High 14.0-26.0 mg/dL [facility] Other Micro[facility]b Creat Ratio,UOrdere d By: Yolette Pierre on 02-27-2023 Albumin DL <= 20 mg/L (U) [Mass/Vol] mg/dL 0.0-1.8 [facility] Albumin/Creatinine DL <= 20 mg/L (U) [Mass ratio] TNP [facility] Comment on above: Test not performed Glucose - FINGER STICKon Glucose [Mass/Vol] 160 mg/dL [facility] Other A1C HEMOGLOBINon 10-03-2022 HbA1c (Bld) [Mass fraction] 7.0 % [facility] Other Glucose - FINGER STICKon Glucose [Mass/Vol] 88 mg/dL [facility] Other HbA1c (Bld) [Mass fraction]o n 10-03-2022 A1C HEMOGLOBIN [facility] Other Glucose - FINGER STICKon Glucose [Mass/Vol] 137 mg/dL [facility] Other A1C HEMOGLOBINon 05-05-2022 HbA1c (Bld) [Mass fraction] 7.5 % [facility] Other Glucose - FINGER STICKon Glucose [Mass/Vol] 199 mg/dL [facility] Other HbA1c (Bld) [Mass fraction]o n 05-05-2022 A1C HEMOGLOBIN [facility] Other A1C HEMOGLOBINon 02-03-2022 HbA1c (Bld) [Mass fraction] 7.7 % [facility] Other Glucose - FINGER STICKon Glucose - FINGER STICK [facility] Other A1C HEMOGLOBINon 11-01-2021 HbA1c (Bld) [Mass fraction] 8.1 % [facility] Other Glucose - FINGER STICKon Glucose [Mass/Vol] 232 mg/dL [facility] Other HbA1c (Bld) [Mass fraction]o n 11-01-2021 A1C HEMOGLOBIN [facility] Other A1C HEMOGLOBINon 07-20-2021 HbA1c (Bld) [Mass fraction] 8.0 % [facility] Other Glucose - FINGER STICKon Glucose [Mass/Vol] 159 mg/dL [facility] Other HbA1c (Bld) [Mass fraction]o n 07-20-2021 A1C HEMOGLOBIN [facility] Other ACETONE SERUMon 04-08-2020 ACETONE SMALL Normal NEGATIVE [facility] Comment on above: Performed By: #### A CETON ####[facility] [id number] [place], [place] [address]Aeuqfo Brii BNPon 04-08-2020 Natriuretic peptide B (Bld) [Mass/Vol] 72.0 pg/mL Normal <=900.0 [facility] Comment on above: Performed By: #### C MP, TSH, TROP, BNP #### [facility] [address] [id number] Kisha Teresa CBC AUTO DIFFon 04-08-2020 Basophils (Bld) [#/Vol] 0.0 103/ul Normal 0.0-0.1 [facility] Comment on above: Performed By: #### C BC #### [facility] [address] [place], [place] [address] Kisha Teresa Basophils/100 WBC (Bld) 0.4 % Normal 0.2-2.0 [facility] Comment on above: Performed By: #### C BC #### [facility] [address] [id number] Kisha Brii Eosinophils (Bld) [#/Vol] 0.0 103/ul Normal 0.0-0.7 [facility] Comment on above: Performed By: #### C BC #### [facility] [address] [id number] Kisha Brii Eosinophils/100 WBC (Bld) 0.0 % Critically low 0.9-7.0 [facility] Comment on above: Performed By: #### C BC #### [facility] [address] [place], [place] [id number] Kisha Brii Erythrocyte distribution width (RBC) [Ratio] 13.3 % Normal 11.0-15.0 [facility] Comment on above: Performed By: #### C BC #### [facility] [address] [place] [address] Kisha Brii Hematocrit (Bld) [Volume fraction] 45.3 % Normal 42.0-54.0 [facility] Comment on above: Performed By: #### C BC #### [facility] [address] [place] [address] Kisha Brii Hemoglobin (Bld) [Mass/Vol] 15.9 g/dL Normal 14.0-18.0 [facility] Comment on above: Performed By: #### C BC #### [facility] [address] [place] [address] Kisha Brii IG # 0.03 10e3/ul Normal 0.00-0.03 [facility] Comment on above: Performed By: #### C BC #### [facility] [address] [place] [address] Kisha Brii IG % 0.6 % Critically high 0.0-0.5 [facility] Comment on above: Performed By: #### C BC #### [facility] [address] [place] [address] Kisha Brii Lymphocytes (Bld) [#/Vol] 1.8 103/ul Normal 1.2-3.8 [facility] Comment on above: Performed By: #### C BC #### [facility] [address] [place], [place] [id number] Kisha Brii Lymphocytes/100 WBC (Bld) 37.3 % Normal 20.5-60.0 [facility] Comment on above: Performed By: #### C BC #### [facility] [address] [place], [place] [phone] Kisha Brii MANUAL DIFF REQ NO Normal [facility] Comment on above: Performed By: #### C BC #### [facility] [address] [place], [place] [id number] Kishaunruly Teresa MCH (RBC) [Entitic mass] 31.4 pg Normal 25.9-34.0 [facility] Comment on above: Performed By: #### C BC #### [facility] [address] [place], [place] [id number] Kishaunruly Teresa MCHC (RBC) [Mass/Vol] 35.1 g/dL Normal 29.9-35.2 [facility] Comment on above: Performed By: #### C BC #### [facility] [address] [place], [place] [phone] Kishaunruly Costelloen MCV (RBC) [Entitic vol] 89.3 fL Normal 80.0-94.0 [facility] Comment on above: Performed By: #### C BC #### [facility] [address] [place] [address] Kisha Brii Monocytes (Bld) [#/Vol] 0.7 103/ul Normal 0.3-0.8 [facility] Comment on above: Performed By: #### C BC #### [facility] [address] [place], [place] [phone] Kisha Brii Monocytes/100 WBC (Bld) 14.5 % Critically high 1.7-12.0 [facility] Comment on above: Performed By: #### C BC #### [facility] [address] [place] [address] Kisha Brii Neutrophils (Bld) [#/Vol] 2.3 103/ul Normal 1.4-6.5 [facility] Comment on above: Performed By: #### C BC #### [facility] [address] [place], [place] [phone] Kisha Brii Neutrophils/100 WBC (Bld) 47.2 % Normal 43.0-75.0 [facility] Comment on above: Performed By: #### C BC #### [facility] [address] [place], [place] [phone] Kisha Brii Platelet mean volume (Bld) [Entitic vol] 11.7 fL Normal 9.5-13.5 [facility] Comment on above: Performed By: #### C BC #### [facility] [address] [place], [place] [address] Kisha Teresa Platelets (Bld) [#/Vol] 157 103/ul Normal 150-450 [facility] Comment on above: Performed By: #### C BC #### [facility] [address] [place], [place] [address] Kisha Teresa RBC (Bld) [#/Vol] 5.07 106/ul Normal 4.70-6.10 [facility] Comment on above: Performed By: #### C BC #### [facility] [address] [place], [place] [address] Kisha Teresa WBC (Bld) [#/Vol] 4.9 103/ul Normal 4.0-11.0 [facility] Comment on above: Performed By: #### C BC #### [facility] [address] [place], [place] [address] Kisha Teresa CTA CHEST WO W CONon 020 CTA CHEST WO W CON EXAMINATION: CTA CHEST WO W CON HISTORY: SHORTNESS OF BREATH [...] STEVEN WAN Date: 2020-04-08 12:41 Normal [facility] D-DIMERon 04-08-2020 D-DIMER COMMENTS SEE BELOW Normal [facility] Comment on above: Result Comment: Incr [...] Performed By: #### D DIM, PTT, PT ####[facility] [id number] [id number] Teresa Fibrin D-dimer FEU IA (Bld) [Mass/Vol] 1.16 ug/mL Critically high 0.19-0.50 [facility] Comment on above: Result Comment: test repeated critcal value verified Performed By: #### D DIM, PTT, PT ####[facility] [id number] [id number] Teresa PH VENOUS BLOODon 04-08-2020 PCO2 VENOUS 46.4 mmHg Normal 40.0-52.0 [facility] Comment on above: Performed By: #### P HVEN #### [facility] [address] [address] Kisha Teresa pH VENOUS 7.37 Normal 7.33-7.43 [facility] Comment on above: Performed By: #### P HVEN #### [facility] [address] [address] Kisha Teresa PROF 14(COMP METB)on 020 Albumin [Mass/Vol] 2.4 g/dL Critically low 3.5-5.0 Th e [facility] Comment on above: Performed By: #### C MP, TSH, TROP, BNP #### [facility] [address] [address] Kisha Brii Albumin/Globulin [Mass ratio] 0.4 {ratio} Normal [facility] Comment on above: Performed By: #### C MP, TSH, TROP, BNP #### [facility] [address] [address] Kisha Brii ALP [Catalytic activity/Vol] 68 U/L Normal 38-126 [facility] Comment on above: Performed By: #### C MP, TSH, TROP, BNP #### [facility] [address] [address] Kisha Brii ALT [Catalytic activity/Vol] 33 U/L Normal 21-72 [facility] Comment on above: Performed By: #### C MP, TSH, TROP, BNP #### [facility] [address] [place] [address] Kisha Brii Anion gap [Moles/Vol] 10.1 mmol/L Normal [facility] Comment on above: Performed By: #### C MP, TSH, TROP, BNP #### [facility] [address] [place] [address] Kisha Brii AST [Catalytic activity/Vol] 50 U/L Normal 17-59 [facility] Comment on above: Performed By: #### C MP, TSH, TROP, BNP #### [facility] [address] [place] [address] Kisha Brii Bilirubin Ql (U) 0.9 mg/dL Normal 0.2-1.3 [facility] Comment on above: Performed By: #### C MP, TSH, TROP, BNP #### [facility] [address] [place] [address] Kisha Brii Calcium [Mass/Vol] 8.7 mg/dL Normal 8.4-10.2 [facility] Comment on above: Performed By: #### C MP, TSH, TROP, BNP #### [facility] [address] [place] [address] Kisha Brii Chloride [Moles/Vol] 96 mmol/L Critically low 98-107 [facility] Comment on above: Performed By: #### C MP, TSH, TROP, BNP #### [facility] [address] [address] Kisha Brii CO2 [Moles/Vol] 27.9 mmol/L Normal 22.0-30.0 [facility] Comment on above: Performed By: #### C MP, TSH, TROP, BNP #### [facility] [address] [address] Kisha Brii Creatinine [Mass/Vol] 1.13 mg/dL Normal 0.66-1.25 [facility] Comment on above: Performed By: #### C MP, TSH, TROP, BNP #### [facility] [address] [address] Kisha Brii EGFR-AF SURINAMESE >60 Normal >=60 [facility] Comment on above: Performed By: #### C MP, TSH, TROP, BNP #### [facility] [address] [address] Kisha Brii EGFR-NON AF SURINAMESE >60 Normal >=60 [facility] Comment on above: Performed By: #### C MP, TSH, TROP, BNP #### [facility] [address] [address] Kisha Brii Globulin (S) [Mass/Vol] 5.8 g/dL Normal [facility] Comment on above: Performed By: #### C MP, TSH, TROP, BNP #### [facility] [address] [address] Kisha Brii Glucose [Mass/Vol] 263 mg/dL Critically high 74-106 [facility] Comment on above: Performed By: #### C MP, TSH, TROP, BNP #### [facility] [address] [address] Kisha Brii Potassium [Moles/Vol] 3.0 mmol/L Critically low 3.4-5.0 [facility] Comment on above: Performed By: #### C MP, TSH, TROP, BNP #### [facility] [address] [address] Kisha Brii Protein [Mass/Vol] 8.2 g/dL Normal 6.1-8.2 [facility] Comment on above: Performed By: #### C MP, TSH, TROP, BNP #### [facility] [address] [id number] Kisha Teresa Sodium [Moles/Vol] 131 mmol/L Critically low 137-145 Th e [facility] Comment on above: Performed By: #### C MP, TSH, TROP, BNP #### [facility] [address] [id number] Kishaunruly Costelloen Urea nitrogen [Mass/Vol] 15.0 mg/dL Normal 9.0-20.0 [facility] Comment on above: Performed By: #### C MP, TSH, TROP, BNP #### [facility] [address] [address] Kisha Teresa Urea nitrogen/Creatinine [Mass ratio] 13.3 mg/mg Normal [facility] Comment on above: Performed By: #### C MP, TSH, TROP, BNP #### [facility] [address] [address] Kisha Teresa PROTIMEon 04-08-2020 INR Coag (PPP) [Relative time] 1.03 {INR} Normal [facility] Comment on above: Performed By: #### D DIM, PTT, PT ####[facility] [id number] [id number] Teresa PT Coag (PPP) [Time] 10.9 s Normal 9.0-11.6 [facility] Comment on above: Performed By: #### D DIM, PTT, PT ####[facility] [id number] [id number] Teresa PT Coag (PPP) [Time] SEE BELOW Normal [facility] Comment on above: Result Comment: PIO RED INR: 2.0 - 3.0 CONDITIONS NOT LISTED BELOW 2.5 - 3.5 FOR PROSTHETIC HEART VALVE REPLACEMENT 2.5 - 3.5 RECURRENT THROMBOSIS Performed By: #### D DIM, PTT, PT ####[facility] [id number] [id number] Teresa PTTon 04-08-2020 aPTT Coag (Bld) [Time] PLEASE NOTE: NORMAL RANGE CHANGE 03-31-2015 DUE TO REAGENT LOT CHANGE Normal [facility] Comment on above: Performed By: #### D DIM, PTT, PT #### [facility] [address] [place] [address] Kisha Teresa aPTT Coag (Bld) [Time] 26.7 s Normal 22.3-36.2 [facility] Comment on above: Performed By: #### D DIM, PTT, PT #### [facility] [address] [place] [address] Kisha Teresa Rapid Covid-19 PCR (CVDRPD)o n 04-08-2020 MAZ LDT Info SEE BELOW Normal [facility] Comment on above: Result Comment: This test is not yet approved or cleared by the [place] Food and Drug Administration (FDA) . This test was developed by [employer], [facility]. The performance characteristics of this test were validated by The [facility]. The results are not intended to be used as the sole means for clinical diagnosis or patient management decisions. The [facility] is authorized under Clinical Laboratory Improvement Amendments (CLIA) to perform high-complexity testing. When diagnostic testing is negative, the possibility of a false negative should be considered in the context of a patients recent exposures and the presence of clinical signs and symptoms consistent with SARS-CoV-2. Performed By: #### C VDRPD #### [facility] [address] [place] [address] Kisha Brii SARS-CoV-2 DETECTED NOT DETECTED The [facility] Comment on above: Result Comment: . Performed By: #### C VDRPD #### [facility] [address] [place] [address] Kisha Brii TROPONIN - Ion 04-08-2020 Troponin I.cardiac [Mass/Vol] SEE BELOW Normal The [facility] Comment on above: Result Comment: <0.0 34 ng/ml NEGATIVE 0.034-0.119 INDETERMINATE 0.120 AMI CUT OFF Performed By: #### C MP, TSH, TROP, BNP #### [facility] [address] [place] [address] Kisha Brii Troponin I.cardiac [Mass/Vol] ng/mL Normal <=0.034 The [facility] Comment on above: Performed By: #### C MP, TSH, TROP, BNP #### [facility] [address] [address] Kisha Teresa TSHon 04-08-2020 TSH Qn 2.851 uIU/mL Normal 0.470-4.680 [facility] Comment on above: Performed By: #### C MP, TSH, TROP, BNP #### [facility] [address] TSH Qn SEE BELOW Normal The [facility] Comment on above: Result Comment: <0.3 4 UIU/ml HYPERTHYROID 0.34-5.60 UIU/ml EUTHYROID >5.60 UIU/ml HYPOTHYROID Performed By: #### C MP, TSH, TROP, BNP #### [facility] [address] [address] Kisha Brii XR CHEST 1 Von 04-08-2020 XR CHEST [...] by: STEVEN WAN Date: 2020-04-08 11:49 Normal [facility] Vital Signs Date Time Vital Sign Value Performing Clinician Faci lity 10-23-2024 [id number] Body height 175.3 cm Jamil Culver MD Work Phone: [facility] 10-23-2024 10:55040 Body mass index (BMI) [Ratio] 23.63 kg/m2 Jamil Culver MD Work Phone: [facility] 10-23-2024 10:55-7360 Body weight 72.58 kg Jamil Culver MD Work Phone: [facility] 10-23-2024 10:55-0400 Diastolic blood pressure 76 mm[Hg] Jamil Culver MD Work Phone: [facility] 10-23-2024 10:55-0400 Heart rate 72 /min Jamil Culver MD Work Phone: [facility] 10-23-2024 10:55-0400 Systolic blood pressure 112 mm[Hg] Jamil Culver MD Work Phone: [facility] 10-09-2024 08:41-0400 Body height 173.99 cm Mayra Regan DPM Work Phone: [facility] 10-09-2024 08:41-0400 Body mass index (BMI) [Ratio] 24 kg/m2 Mayra Regan DPM Work Phone: [facility] 10-09-2024 08:41-0400 Body weight 72.6 kg Mayra Regan DPM Work Phone: [facility] 10-09-2024 08:41-0400 Diastolic blood pressure 66 mm[Hg] Mayra Regan DPM Work Phone: [facility] 10-09-2024 08:41-0400 Heart rate 88 /min Mayra Regan DPM Work Phone: [facility] 10-09-2024 08:41-0400 Respiratory rate 18 /min Mayra Davidely DPM Work Phone: [facility] 10-09-2024 08:41-0400 SaO2% (BldA) [Mass fraction] 98 % Mayra Davidely DPM Work Phone: [facility] 10-09-2024 08:41-0400 Systolic blood pressure 91 mm[Hg] Mayra Davidely DPM Work Phone: [facility] 06-18-2024 08:41-0500 Body height 173.99 cm [facility] 06-18-2024 08:41-0500 Body mass index (BMI) [Ratio] 26.9 kg/m2 [facility] 06-18-2024 08:41-0500 Body weight 81.4 kg [facility] 06-18-2024 08:41-0500 Diastolic blood pressure 86 mm[Hg] [facility] 06-18-2024 08:41-0500 Heart rate 74 /min [facility] 06-18-2024 08:41-0500 Respiratory rate 18 /min [facility] 06-18-2024 08:41-0500 SaO2% (BldA) [Mass fraction] 99 % [facility] 06-18-2024 08:41-0500 Systolic blood pressure 138 mm[Hg] [facility] 04-23-2024 09:26-0500 Body height 173.99 cm [facility] 04-23-2024 09:26-0500 Body mass index (BMI) [Ratio] 26.8 kg/m2 [facility] 04-23-2024 09:26-0500 Body weight 81.27 kg [facility] 04-23-2024 09:26-0500 Diastolic blood pressure 98 mm[Hg] [facility] 04-23-2024 09:26-0500 Heart rate 83 /min [facility] 04-23-2024 09:26-0500 Respiratory rate 18 /min [facility] 04-23-2024 09:26-0500 SaO2% (BldA) [Mass fraction] 98 % [facility] 04-23-2024 09:26-0500 Systolic blood pressure 142 mm[Hg] [facility] 04-07-2024 08:17-0500 Body height 175.3 cm [employer] Work Phone: [facility] 04-07-2024 08:17-0500 Body mass index (BMI) [Ratio] 26.11 kg/m2 [employer] DO Work Phone: [facility] 04-07-2024 08:17-0500 Body weight 80.2 kg [employer] DO Work Phone: [facility] 04-07-2024 08:17-0500 Diastolic blood pressure 88 mm[Hg] Christopher Edi DO Work Phone: [facility] 04-07-2024 08:17-0500 Heart rate 84 /min Christopher Edi DO Work Phone: [facility] 04-07-2024 08:17-0500 SaO2% (BldA) [Mass fraction] 98 % Christopher Edi DO Work Phone: [facility] 04-07-2024 08:17-0500 Systolic blood pressure 150 mm[Hg] Christopher Edi DO Work Phone: [facility] 01-21-2024 09:58-0400 Body height 173.99 cm [facility] 01-21-2024 09:58-0400 Body mass index (BMI) [Ratio] 25.5 kg/m2 [facility] 01-21-2024 09:58-0400 Body weight 77.28 kg [facility] 01-21-2024 09:58-0400 Diastolic blood pressure 91 mm[Hg] [facility] 01-21-2024 09:58-0400 Heart rate 82 /min [facility] 01-21-2024 09:58-0400 Respiratory rate 18 /min [facility] 01-21-2024 09:58-0400 SaO2% (BldA) [Mass fraction] 99 % [facility] 01-21-2024 09:58-0400 Systolic blood pressure 137 mm[Hg] [facility] 09-10-2023 08:17-0400 Body height 173.99 cm [facility] 09-10-2023 08:17-0400 Body mass index (BMI) [Ratio] 26.9 kg/m2 [facility] 09-10-2023 08:17-0400 Body weight 81.33 kg [facility] 09-10-2023 08:17-0400 Diastolic blood pressure 91 mm[Hg] [facility] 09-10-2023 08:17-0400 Heart rate 87 /min [facility] 09-10-2023 08:17-0400 Respiratory rate 18 /min [facility] 09-10-2023 08:17-0400 SaO2% (BldA) [Mass fraction] 99 % [facility] 09-10-2023 08:17-0400 Systolic blood pressure 134 mm[Hg] [facility] 06-05-2023 09:15-0500 Body height 173.99 cm Yolette Scally Other [facility] 06-05-2023 09:15-0500 Body mass index (BMI) [Ratio] 25.9 kg/m2 Yolette Scally Other [facility] [employer] Other 06-05-2023 09:15-0500 Body weight 78.43 kg Yolette Scally Other [employer] Other 06-05-2023 09:15-0500 Body weight 78.42 kg MD Le Rodgers Work Phone: [facility] 06-05-2023 09:15-0500 Diastolic blood pressure 83 mm[Hg] Yolette Scally Other [facility] 06-05-2023 09:15-0500 Respiratory rate 18 /min Yolette Scally Other [employer] Other 06-05-2023 09:15-0500 SaO2% (BldA) [Mass fraction] 99 % Yolette Scally Other [employer] Other 06-05-2023 09:15-0500 Systolic blood pressure 119 mm[Hg] Yolette Scally Other [facility] 02-27-2023 10:45-0400 Body height 173.99 cm Yolette Scally Other [employer] Other 02-27-2023 10:45-0400 Body mass index (BMI) [Ratio] 26.07 kg/m2 Yolette Scally Other [employer] Other 02-27-2023 10:45-0400 Body weight 78.93 kg Yolette Scally Other [employer] Other 02-27-2023 10:45-0400 Diastolic blood pressure 86 mm[Hg] Yolette Scally Other [employer] Other 02-27-2023 10:45-0400 Respiratory rate 18 /min Yolette Scally Other [employer] Other 02-27-2023 10:45-0400 SaO2% (BldA) [Mass fraction] 99 % Yolette Scally Other [employer] Other 02-27-2023 10:45-0400 Systolic blood pressure 126 mm[Hg] Yolette Scally Other [employer] Other 12-19-2022 08:45-0400 Body height 173.99 cm Yolette Scally Other [employer] Other 12-19-2022 08:45-0400 Body mass index (BMI) [Ratio] 26.37 kg/m2 Yolette Scally Other [employer] Other 12-19-2022 08:45-0400 Body weight 79.83 kg Yolette Scally Other [employer] Other 12-19-2022 08:45-0400 Diastolic blood pressure 95 mm[Hg] Yolette Scally Other [employer] Other 12-19-2022 08:45-0400 Respiratory rate 18 /min Yolette Scally Other [employer] Other 12-19-2022 08:45-0400 SaO2% (BldA) [Mass fraction] 98 % Yolette Scally Other [employer] Other 12-19-2022 08:45-0400 Systolic blood pressure 149 mm[Hg] Yolette Scally Other [employer] Other 10-03-2022 08:15-0400 Body height 173.99 cm Yolette Scally Other [employer] Other 10-03-2022 08:15-0400 Body mass index (BMI) [Ratio] 27.3 kg/m2 Yolette Scally Other [employer] Other 10-03-2022 08:15-0400 Body weight 82.65 kg Yolette Scally Other [employer] Other 10-03-2022 08:15-0400 Diastolic blood pressure 90 mm[Hg] Yoltete Scally Other [employer] Other 10-03-2022 08:15-0400 Respiratory rate 18 /min Yolette Scally Other [employer] Other 10-03-2022 08:15-0400 SaO2% (BldA) [Mass fraction] 99 % Yolette Scally Other [employer] Other 10-03-2022 08:15-0400 Systolic blood pressure 142 mm[Hg] Yolette Scally Other [employer] Other 07-24-2022 10:30-0400 Body height 173.99 cm Le Rodgers Other [employer] Other 07-24-2022 10:30-0400 Body mass index (BMI) [Ratio] 27.72 kg/m2 Le Rodgers Other [employer] Other 07-24-2022 10:30-0400 Body weight 83.92 kg Le Rodgers Other [employer] Other 07-24-2022 10:30-0400 Diastolic blood pressure 80 mm[Hg] Le Rodgres Other [employer] Other 07-24-2022 10:30-0400 SaO2% (BldA) [Mass fraction] 97 % Le Rodgers Other [employer] Other 07-24-2022 10:30-0400 Systolic blood pressure 130 mm[Hg] Le Rodgers Other [employer] Other 06-28-2022 09:00-0500 Body height 175.26 cm Yolette Scally Other [employer] Other 06-28-2022 09:00-0500 Body mass index (BMI) [Ratio] 27.98 kg/m2 Yolette Scally Other [employer] Other 06-28-2022 09:00-0500 Body weight 85.96 kg Yolette Scally Other [employer] Other 06-28-2022 09:00-0500 Diastolic blood pressure Yolette Scally Other [employer] Other 06-28-2022 09:00-0500 Respiratory rate 18 /min Yolette Scally Other [employer] Other 06-28-2022 09:00-0500 SaO2% (BldA) [Mass fraction] 98 % Yolette Scally Other [employer] Other 06-28-2022 09:00-0500 Systolic blood pressure 116 mm[Hg] Yolette Scally Other [employer] Other 05-05-2022 09:15-0500 Body height 175.26 cm Yolette Scally Other [employer] Other 05-05-2022 09:15-0500 Body mass index (BMI) [Ratio] 28.84 kg/m2 Yolette Scally Other [employer] Other 05-05-2022 09:15-0500 Body weight 88.59 kg Yolette Scally Other [employer] Other 05-05-2022 09:15-0500 Diastolic blood pressure 67 mm[Hg] Yolette Scally Other [employer] Other 05-05-2022 09:15-0500 Respiratory rate 18 /min Yolette Scally Other [employer] Other 05-05-2022 09:15-0500 SaO2% (BldA) [Mass fraction] 97 % Yolette Scally Other [employer] Other 05-05-2022 09:15-0500 Systolic blood pressure 96 mm[Hg] Yolette Scally Other [employer] Other 02-03-2022 09:30-0400 Body height 175.26 cm Yolette Scally Other [employer] Other 02-03-2022 09:30-0400 Body mass index (BMI) [Ratio] 28.14 kg/m2 Yolette Scally Other [employer] Other 02-03-2022 09:30-0400 Body weight 86.46 kg Yolette Scally Other [employer] Other 02-03-2022 09:30-0400 Diastolic blood pressure 94 mm[Hg] Yolette Scally Other [employer] Other 02-03-2022 09:30-0400 Respiratory rate 18 /min Yolette Scally Other [employer] Other 02-03-2022 09:30-0400 SaO2% (BldA) [Mass fraction] 99 % Yolette Scally Other [employer] Other 02-03-2022 09:30-0400 Systolic blood pressure 141 mm[Hg] Yolette Scally Other [employer] Other 11-01-2021 10:15-0400 Body height 175.26 cm Yolette Scally Other [employer] Other 11-01-2021 10:15-0400 Body mass index (BMI) [Ratio] 27.76 kg/m2 Yolette Scally Other [employer] Other 11-01-2021 10:15-0400 Body weight 85.28 kg Yolette Scally Other [employer] Other 11-01-2021 10:15-0400 Diastolic blood pressure 92 mm[Hg] Yolette Scally Other [employer] Other 11-01-2021 10:15-0400 Respiratory rate 18 /min Yolette Scally Other [employer] Other 11-01-2021 10:15-0400 SaO2% (BldA) [Mass fraction] 99 % Yolette Scally Other [employer] Other 11-01-2021 10:15-0400 Systolic blood pressure 123 mm[Hg] Yolette Scally Other [employer] Other 07-20-2021 09:45-0400 Body height 175.26 cm Yolette Scally Other [employer] Other 07-20-2021 09:45-0400 Body mass index (BMI) [Ratio] 27.85 kg/m2 Yolette Scally Other [employer] Other 07-20-2021 09:45-0400 Body weight 85.55 kg Yolette Scally Other [employer] Other 07-20-2021 09:45-0400 Diastolic blood pressure 93 mm[Hg] Yolette Scally Other [employer] Other 07-20-2021 09:45-0400 Respiratory rate 20 /min Yolette Scally Other [employer] Other 07-20-2021 09:45-0400 SaO2% (BldA) [Mass fraction] 100 % Yolette Pierre Other [employer] Other 07-20-2021 09:45-0400 Systolic blood pressure 139 mm[Hg] Yolette Pierre Other [employer] Other Encounters Encounter Date Encounter Type Care Provider Facility Start: 10-23-2024 End: 10-23-2024 Office outpatient visit 10 minutes Jamil Culver MD Work Phone: [facility] Comment on above: Critical limb ischem ia of right lower extremity with gangrene ([facility]) (Primary Dx) Start: 10-23-2024 End: 10-23-2024 ambulatory [facility] Start: 10-17-2024 End: 10-17-2024 ambulatory [facility] Start: 10-09-2024 End: 10-09-2024 ambulatory Mayra Spears DPM Work Phone: [facility] Work Phone: Start: 10-09-2024 End: 10-09-2024 Patient encounter procedure May[facility] Spears DPM [facility] Phone[facility] Work Phone: Start: 10-07-2024 End: 10-07-2024 ambulatory MAYRA Copeland [facility] Start: 09-25-2024 End: 09-25-2024 ambulatory [facility] Start: 09-24-2024 Non-patient / Non-visit Mayra Joannely DPM Work Phone: [facility] Work Phone: Start: 09-23-2024 End: 09-23-2024 ambulatory Mayra Spears Facility:[facility] Start: 09-23-2024 End: 09-23-2024 Departed Referred Mayra Spears DPM Work Phone: [facility] Start: 09-23-2024 Non-patient / Non-visit Mayra Spears DPM [facility] Phone[facility] Work Phone: Start: 09-22-2024 Non-patient / Non-visit Mayra Spears DPM Work Phone: [facility] Work Phone: Start: 09-21-2024 Non-patient / Non-visit Mayra Spears DPM Work Phone: [facility] Work Phone: Start: 09-20-2024 Non-patient / Non-visit Mayra Spears DPM Work Phone: [facility] Work Phone: Start: 06-18-2024 End: 06-18-2024 ambulatory Yolette Pierre [facility] Work Phone: Start: 06-18-2024 End: 06-18-2024 Departed Referred Yolette Pierre [employer]IST[employer] Work Phone: [facility] [place] Work Phone: Start: 06-18-2024 End: 06-18-2024 ambulatory [facility] Work Phone: Start: 06-18-2024 End: 06-18-2024 Patient encounter procedure [facility] Work Phone: Start: 04-23-2024 End: 04-23-2024 Patient encounter procedure [facility] Work Phone: Start: 04-11-2024 End: 04-11-2024 Emergency department patient visit PARRISH LOCKE [facility] Start: 04-07-2024 End: 04-07-2024 Bamboo flowsheet Melanie Daley DO Work Phone: [facility] [address] [address] Start: 04-07-2024 End: 04-07-2024 Bamboo flowsheet Melanie Daley DO Work Phone: [employer] [facility] [address] Start: 04-07-2024 End: 04-07-2024 Office outpatient new 45 minutes Melanie Daley DO Work Phone: [employer] [address] Comment on above: Neuralgia (Primary D x); DDD (degenerative disc disease), cervical Start: 04-07-2024 End: 04-07-2024 ambulatory MELANIE DALEY Not Available Start: 01-21-2024 End: 01-21-2024 ambulatory [facility] Work Phone: Start: 01-21-2024 End: 01-21-2024 [facility] Work Phone: Start: 09-10-2023 End: 09-10-2023 ambulatory [facility] Work Phone: Start: 09-10-2023 End: 09-10-2023 Patient [facility] Work Phone: Start: 06-07-2023 End: 06-07-2023 ambulatory Yolette Pierre Other [employer] Other Start: 06-07-2023 Telephone encounter Yolette [facility] Start: 06-05-2023 (DM) Diabetes [facility] Start: 06-05-2023 End: 06-05-2023 ambulatory MD Le Rodgers Work Phone: [employer] Other Start: 06-05-2023 End: 06-05-2023 Discharged Recurring MD Le Rodgers Work Phone: [facility] Work Phone: Start: 06-05-2023 End: 06-05-2023 Patient encounter procedure MD Le Rodgers Work Phone: [facility] Start: 05-18-2023 End: 05-18-2023 ambulatory Yolette Scally Other [employer] Other Start: 05-18-2023 Telephone encounter Yolette Scally [facility] Start: 02-28-2023 End: 02-28-2023 ambulatory Yolette Scally Other [employer] Other Start: 02-28-2023 Telephone encounter Yolette Scally [facility] Start: 02-27-2023 (DM) Diabetes Yolette Scally [facility] Start: 02-27-2023 End: 02-27-2023 ambulatory Yolette Scally Other [employer] Other Start: 12-19-2022 (DM) Diabetes Yolette Scally [facility] Start: 12-19-2022 End: 12-19-2022 ambulatory Yolette Scally Other [employer] Other Start: 12-07-2022 End: 12-07-2022 ambulatory Yolette Scally Other [employer] Other Start: 12-07-2022 Telephone encounter Yolette Scally [facility] Start: 10-03-2022 (DM) Diabetes Yolette Scally [facility] Start: 10-03-2022 End: 10-03-2022 ambulatory Yolette Scally Other [employer] Other Start: 10-03-2022 Telephone encounter Yolette Scally [facility] Start: 07-24-2022 End: 07-24-2022 ambulatory Le Rodgers Other [employer] Other Start: 07-24-2022 Office outpatient ne w 30 minutes Le Rodgers [facility] Start: 07-04-2022 End: 07-04-2022 ambulatory Yolette Scally Other [employer] Other Start: 07-04-2022 Telephone encounter Yolette Scally [facility] Start: 06-28-2022 (DM) Diabetes Yolette Scally [facility] Start: 06-28-2022 End: 06-28-2022 ambulatory Yolette Scally Other [employer] Other Start: 06-26-2022 End: 06-26-2022 ambulatory Yolette Scally Other [employer] Other Start: 06-26-2022 Telephone encounter Yolette Scally [facility] Start: 06-19-2022 End: 06-19-2022 ambulatory Yolette Scally Other [employer] Other Start: 06-19-2022 Telephone encounter Yolette Scally [facility] Start: 05-05-2022 (DM) Diabetes Yolette Scally [facility] Start: 05-05-2022 End: 05-05-2022 ambulatory Yolette Scally Other [employer] Other Start: 03-27-2022 End: 03-27-2022 ambulatory Yolette Scally Other [employer] Other Start: 03-27-2022 Telephone encounter Yolette Scally [facility] Start: 02-03-2022 (DM) Diabetes Yolette Scally [facility] Start: 02-03-2022 End: 02-03-2022 ambulatory Yolette Scally Other [employer] Other Start: 11-21-2021 End: 11-21-2021 ambulatory Yolette Scally Other [employer] Other Start: 11-21-2021 Telephone encounter Yolette Scally [facility] Start: 11-11-2021 End: 11-11-2021 ambulatory Yolette Scally Other [employer] Other Start: 11-11-2021 Telephone encounter Yolette Scally [facility] Start: 11-01-2021 (DM) Diabetes Yolette Scally [facility] Start: 11-01-2021 End: 11-01-2021 ambulatory Yolette Scally Other [employer] Other Start: 10-24-2021 End: 10-24-2021 ambulatory Yolette Scally Other [employer] Other Start: 10-24-2021 Telephone encounter Yolette Scally [facility] Start: 09-13-2021 End: 09-13-2021 ambulatory Yolette Scally Other [employer] Other Start: 09-13-2021 Telephone encounter Yolette Scally [facility] Start: 08-23-2021 End: 08-23-2021 ambulatory Yolette Scally Other [employer] Other Start: 08-23-2021 Telephone encounter Yolette Scally [facility] Start: 08-04-2021 End: 03-31-2022 ambulatory Yolette Scally Other [employer] Other Start: 08-04-2021 Telephone encounter [facility] Start: 07-20-2021 (DM) Diabetes Yo[facility] Start: 07-20-2021 End: 07-20-2021 ambulatory Yolette Pierre Other [employer] Other Start: 04-08-2020 End: 04-08-2020 Patient encounter procedure MARCEL PAIZ Facility:[facility] Procedures Date Procedure Procedure Detail Performing Clinician History of amputatio n of lesser toe H/O amputation of lesser toe Mayra Spears DPSaud Work Phone: Comment on above: right great toe Plan of Treatment Date Care Activity Detail Author Start: 10-23-2025 Adult BMI Screening Adult BMI Screen ing [facility] Start: 04-11-2025 Tobacco Screening Tobacco Screening [facility] Start: 01-05-2025 Influenza vaccination Influenza Vacc ine [facility] Start: 04-07-2024 End: 04-07-2024 Patient encounter procedure 04/07/2024 8:30 AM EST Office Visit [facility] [address] [place] [id number] Melanie Daley, [address] [place] [address] [id number] [facility] Comment on above: Arrived Start: 2011 Administration of varicella zoster vaccine Zoster (Shingles) Vaccine (1 of 2) [facility] Start: 02-06-1980 DTaP,Tdap and Td Vac cines (1 - Tdap) DTaP,Tdap and Td Vaccines (1 - Tdap) [facility] Start: 1973 Depression Screening Depression Scre shantel [facility] Comprehensive metabo lic 1999 panel - Serum or Plasma [facility] Comprehensive metabo lic 1999 panel - Serum or Plasma [facility] Payers Date Payer Category Payer Self-pay [id number] 2024 Medicare HMO [employer] [id number] 2024 Unknown [id number] 2022 Medicare (Managed Care) [facility] [id number] 2022 Medicare [id number] 1961 Unknown [id number] 1961 Unknown [id number] [id number] 1961 Unknown [id number] 1286 1961 Unknown [id number] 1961 Unknown [id number] 1286 1961 Unknown [id number] 1286 1961 Unknown [id number] 1286 1959 Unknown [id number] Medicare [id number] Unknown [id number] Unknown [id number] Social History Date Type Detail Facility Unknown if ever smoked [facility] Other Start: 06-17-2020 End: 04-11-2024 Sex Assigned At [employer] Other Start: 1960 Sex Assigned At Male [facility] Start: 09-16-2016 End: 09-10-2023 Tobacco smoking status [facility] Ex-smoker (finding) [facility] Tobacco smoking status [facility] Tobacco smoking consumption unknown [facility] Healthcare Start: 1960 Sex assigned at Not on file N [facility] Healthcare Start: 12-10-2014 End: 06-18-2024 Sex Male (finding) [facility] History of tobacco use Current smoker [facility] Start: 04-11-2024 Alcoholic beverage intake Current drinker of alcohol (finding) [facility] Start: 06-17-2020 End: 04-11-2024 Alcoholic beverage intake [facility] Childcare Unknown [facility] Medical Equipment Procedure Code Equipment Code Equipment [...] 06-18-2024 [facility] Start: 06-18-2024 End: 06-18-2024 Goals Date Patient Goal Desired Activity /State Personal health goal Comment on above: Formatting of this n ote might be different from the original. Evaluation of progress towards goal: Patients goal is to discharge to home. Clinical Notes 07-20-2021 to 10-23-2024 Assessment & Plan Note - Jamil Culver MD - 10/23/2024 11:31 AM EDTAssessment & Plan Note - Jamil Culver MD - 10/23/2024 11:31 AM EDTMbrandt Culver MD - 10/23/2024 10:50 AM EDT Note Date & Type Note Facility 10-23-2024 Evaluation + Plan note Associated Problem(s): Critical limb ischemia of right lower extremity with gangrene (CMS-HCC) He has no significant occlusive disease. Plan is to continue to work with podiatry and follow up with us as needed. [facility] 10-23-2024 Miscellaneous Notes Associate d Problem(s): Critical limb ischemia of right lower extremity with gangrene (CMS-HCC) He has no significant occlusive disease. Plan is to continue to work with podiatry and follow up with us as needed. documented in this encounter [facility] 10-23-2024 History of Presen t illness Narrative Images from the original note were not [...] a day as needed for muscle spasms. (Patient not taking: Reported [...] Diagnosis Date Diabetes mellitus type 2, controlled ([facility]) Hyperlipidemia Hypertension Past Surgical History: Past Surgical History: Procedure Laterality Date lower ext angio Right 10/17/2024 Performed by Jamil Culver MD at [facility] Social and Family [...] Wt 72.6 kg (160 lb) BMI 23.63 kg/m Body mass index is 23.63 kg/m . Physical Exam: Physical Exam Constitutional: Appearance: Normal [...] ischemia of right lower extremity with gangrene ([facility]) - Primary Current Assessment & Plan He [...] Jamil Culver MD, RADHA, RPVI, FSVS, FACS [facility] [facility] This note was created with the assistance of a speech recognition program. While intending to generate a timely document that accurately reflects the content of the visit, no guarantee can be provided that every grammatical or spelling mistake has been or will be identified or corrected. Thank you for your understanding. documented in this encounter [facility] 04-23-2024 Evaluation note Diagnosis Onset Date Resolution BMI 25.0-25.9,adult acute Decem viji 2023 8:54am Dietary counseling and surveillance acute April 23, 2 024 8:54am HTN (hypertension) acute Decemb er 2023 8:54am Hyperlipidemia acute April 062023 8:54am snf 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 insulin acute April 23, 2 024 8:54am Persistent albuminuria acute De cember 2023 8:54am Type 2 diabetes mellitus with hyperglycemia acute April 8:54am Vitamin D deficiency acute Dece mber 2023 8:54am BMI 25.0-25.9,adult acute Febru jennie 2024 8:25am Dietary counseling and surveillance acute June 18 8:25am HTN (hypertension) acute ua ry 2024 8:25am Hyperlipidemia acute June 072024 8:25am snf 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 insulin acute June 18 8:25am Persistent albuminuria acute Fe bruary 2024 8:25am Type 2 diabetes mellitus with hyperglycemia acute June 8:25am Vitamin D deficiency acute uary 2024 8:25am [facility] Work Phone: 1(399) 488-190012-02-2024 History of Present illness Narrative* Melanie Daley, [...] , wrist extensors , wrist flexor , ship's surveyor strength 5/5. LUE Strength deltoid , biceps , triceps , wrist extensors , wrist flexor , ship's surveyor strength 5/5. RLE Strength illopsoas, quadriceps, tibialis [...] reflex 2+ . Christy's sign negative. Coordination: [id number] testing and rapid alternating movements are normal [...] plan, and return instructions documented in this [facility] [id number] Evaluation note* Encounter Date Diagnosis Assessment Notes Treatment Notes Treatment Clinical Notes Jun, Type 2 diabetes mellitus with hyperglycemia (ICD-10 - E11.65) [facility] Other 01-30-2024 Evaluation note* Encounter Date Diagnosis [...] maintain Humalog correction 1:40 (carries chart in wallet). Continue Vitamin D now OTC and Vitamin [...] continue BP good. ESTABLISH WITH PCP May, 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 (ICD-10 - Z79.4) May, Persistent albuminuria (ICD-10 - R80.9) Failed Jardiance, Tolerating Farxiga, increase Lisinopril last visit and tolerating. CANNOT PRODUCE URINE SAMPLE tODAY, LAB ORDER SENT TO FOLLOWUP. If persistent albuminuria could consider nephrology. Discussed management of glycemia and high blood pressure to protect kidneys. May, Albuminuria (ICD-10 - R80.9) May, BMI 25.0-25.9,adult (ICD-10 - Z68.25) [facility] Other 10-25-2023 Evaluation note* Encounter Date Diagnosis Assessment Notes Treatment Notes Treatment Clinical Notes Feb, Albuminuria (ICD-10 - R80.9) [facility] Other 10-24-2023 Evaluation note* Encounter Date Diagnosis [...] continue BP good. ESTABLISH WITH PCP Feb, snf 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 insulin (ICD-10 - Z79.4) Feb, Persistent albuminuria (ICD-10 - R80.9) Failed Jardiance, will do trial of Farxiga. If cannot tolerate class medications or persistent albuminuria could consider nephrology. Repeat microalbuminuria after Farxiga. Discussed management of glycemia and high blood pressure to protect kidneys. Feb, BMI 26.0-26.9,adult (ICD-10 - Z68.26) Feb, Albuminuria (ICD-10 - R80.9) [facility] Other 08-15-2023 Evaluation note* Encounter Date Diagnosis [...] published to portal slightly above goal Dec, 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 (ICD-10 - Z79.4) Dec, Persistent albuminuria (ICD-10 - R80.9) Failed Jardiance, will do trial of Farxiga. If cannot tolerate class medications or persistent albuminuria could consider nephrology. Repeat microalbuminuria after Farxiga. Discussed management of glycemia and high blood pressure to protect kidneys. Dec, BMI 27.0-27.9,adult (ICD-10 - Z68.27) [facility] Other 05-30-2023 Evaluation note* Encounter Date Diagnosis [...] published to portal slightly above goal September, snf 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 insulin (ICD-10 - Z79.4) September, Persistent albuminuria (ICD-10 - R80.9) Failed Jardiance, will do trial of Farxiga. If cannot tolerate class medications or persistent albuminuria could consider nephrology. Repeat microalbuminuria after Farxiga. Discussed management of glycemia and high blood pressure to protect kidneys. September, BMI 27.0-27.9,adult (ICD-10 - Z68.27) [facility] Other 03-20-2023 Evaluation note* Encounter Date Diagnosis Assessment Notes Treatment Notes Treatment Clinical Notes Jul, Hyperlipidemia (ICD-10 - E78.5) will refill med and check labs today. Jul, Type 2 diabetes mellitus with hyperglycemia (ICD-10 - E11.65) Continued followup with diabetes clinic. Pt states he hasn't had an eye exam for 2 years - advised followup [facility] Other 02-22-2023 Evaluation note* Encounter Date Diagnosis [...] Instructions material was published to portal Jun, 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 (ICD-10 - Z79.4) Jun, BMI 28.0-28.9,adult (ICD-10 - Z68.28) Jun, Persistent albuminuria (ICD-10 - R80.9) Failed Jardiance, will do trial of Farxiga. If cannot tolerate class medications or persistent albuminuria could consider nephrology. Repeat microalbuminuria after Farxiga. Discussed management of glycemia and high blood pressure to protect kidneys. Jun, Other inital weigh t increase, now declining [facility] Other 02-13-2023 Evaluation note* Encounter Date Diagnosis Assessment Notes Treatment Notes Treatment Clinical Notes Jun, Type 2 diabetes mellitus with hyperglycemia (ICD-10 - E11.65) [facility] Other 12-30-2022 Evaluation note* Encounter Date Diagnosis [...] PCP to manage cholesterol and preventative treatments. [facility] physician group primary care provider flyer given. [...] will have patient present for download with copy center operator in 4 weeks and provider in 8 [...] Instructions material was published to portal Apr, 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 (ICD-10 - Z79.4) Apr, BMI 28.0-28.9,adult (ICD-10 - Z68.28) Apr, Persistent albuminuria (ICD-10 - R80.9) Failed Jardiance, will do trial of Farxiga. If cannot tolerate class medications or persistent albuminuria could consider nephrology. Repeat microalbuminuria after Farxiga. Discussed management of glycemia and high blood pressure to protect kidneys. Apr, Other inital weigh t increase, now declining [facility] Other 09-30-2022 Evaluation note* Encounter Date Diagnosis [...] for activation. She continue miladys. Encouraged calling [facility] for replacement of 2 sensors. We discussed [...] About Healthy Weight material was published to [employer] Jan, Hyperlipidemia (ICD-10 - E78.5) Learning About High Cholesterol material was published to portal LDL 53-- Continue Crestor Jan, HTN (hypertension) (ICD-10 - I10) High Blood Pressure: Care Instructions material was published to [employer] Jan, snf 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 insulin (ICD-10 - Z79.4) [...] Other inital weigh t increase, now declining [facility] Other 07-18-2022 Evaluation note* Encounter Date Diagnosis Assessment Notes Treatment Notes Treatment Clinical Notes Nov, Type 2 diabetes mellitus with hyperglycemia (ICD-10 - E11.65) Nov, long term care phlebotomist current us e of insulin (ICD-10 - Z79.4) [facility] Other 06-28-2022 Evaluation note* Encounter Date Diagnosis [...] clinic in 6 weeks for download with copy center operator in 3 months with provider 3. Patient [...] Instructions material was published to portal Oct, 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 (ICD-10 - Z79.4) Oct, BMI 27.0-27.9,adult (ICD-10 - Z68.27) Oct, Other inital weigh t increase, now declining [facility] Other 03-16-2022 Evaluation note* Encounter Date Diagnosis [...] increase this. Patient has difficulty with his sequins stringer currently, questioning accuracy as it was run over. He will request a new sequins stringer from [employer]. We also discussed using cell phone as [...] previous PCP. He is given information regarding [facility] physicians to include Dr. Vela who may be geographically desirable. I did send him with written to do list 1 call [employer] for replacement of sequins stringer. To download Jack Robie matthew on cell phone for next sensor [...] hyperglycemia, or diabetes medication issues. 6. Prescriptions: Rosalee Shaw/Valeria 07-20-21 Jul, Dietary counseling and surveillance (ICD-10 - Z71.3) Learning About Healthy Weight material was published to portal Jul, Hyperlipidemia (ICD-10 - E78.5) [facility] About High Cholesterol material was published to portal LDL 53-- Continue Crestor Jul, HTN (hypertension) (ICD-10 - I10) High Blood Pressure: Care Instructions material was published to portal Jul, 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 (ICD-10 - Z79.4) Jul, BMI 27.0-27.9,adult (ICD-10 - Z68.27) Jul, Other inital weigh t increase, now declining [facility] [employer] Other Chisl complaint+Reason for visit Narrative* Chief Complaint DMN f/u-METER Reason for Visit BMI 25.0-25.9,adult Dietary counseling and surveillance HTN (hypertension) Hyperlipidemia 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 Persistent albuminuria Type 2 diabetes mellitus with hyperglycemia Vitamin D deficiency [facility] Work Phone: Evaluation noteNo InformationNortEncompass Health [employer] Other Evaluation noteNo assessment information available [facility] Work Phone: Evaluzfszc note* Diagnosis Onset Date Resolution Status BMI 25.0-25.9,adult acute Dietary counseling and surveillance acute HTN (hypertension) acute Hyperlipidemia acute 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 acute Persistent albuminuria acute Type 2 diabetes mellitus with hyperglycemia acute Vitamin D deficiency acute [facility] Work Phone: Evaluation note* Diagnosis Neuralgia- Primary Unspecified neuralgia, neuritis, and radiculitis DDD (degenerative disc disease), cervical Degeneration of cervical intervertebral disc [facility]* Diagnosis Onset Date Resolution Status Admit Date BMI 25.0-25.9,adult acute October 09, 2024 8:20am Dietary counseling and surveillance acute October 09, 2024 8 :20am HTN (hypertension) acute October 092024 8:20am Hyperlipidemia acute October 09, 2024 8:20am 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 acu te October 09, 2024 8:20am Persistent albuminuria acute Ju 2024 8:20am Type 2 diabetes mellitus wit h hyperglycemia acute October 09, 2024 8 :20am Vitamin D deficiency acute October 09, 2024 8:20am [facility] Work Phone: Evaluation note* Diagnosis Critical limb ischemia of right lower extremity with gangrene (CMS-HCC)- Primary PAD (peripheral artery disease) Unspecified peripheral vascular disease Gangrene (CMS-HCC) Gangrene Critical limb ischemia of right lower extremity with gangrene (CMS-HCC)- Primary [facility] Narrative - Reported* Type Description Date Medical History Herpes zoster dermatitis Medical History Abscess, lip- PICC line prolonge d ABX 2016 Medical History Neck sprain, strain Medical History Hypertension, controlled Medical History Hyperlipidemia Medical History Diabetes, type 2 Medical History Hx of Covid 19 (04/2020) Surgical History PICC LINE 2017 Hospitalization History ICU In [facility] f or 8-10 days 2017 [facility] Other InstructionsNot on filedocumented in this encounter [facility] [place] SystemReason for referral (narrative)* Reason Nail deformity, Type II Diabetes Referral sent , patient informed Diagnosis 1 Type 2 diabetes reji itus with hyperglycemia (E11.65) Diagnosis 2 Nail deformity (L60. 8) Referral Organization [facility] Referring Provider First Name Yolette Referring Provider Last Name Gabby Referring Provider Specialty Nurse Pract itioner Referred Organization [facility] Referred Provider STEVEN AHMADI Referred Address ,[place], [place],[address] Referred Provider Specialty Podiatry - S urgical [...] Clinical Notes Dr Steven Ahmadi# [phone] [place] [employer] Other Summary Purpose Family History No Family [...] Date/ Time Advance Directives No June 10:22am Date Activated Date Inactivated Comments 09/16/2016 8:20 PM 09/22/2016 8:22 PM Date Activated Date Inactivated Comments 09/16/2016 1:01 PM 09/16/2016 8:20 PM Chief Complaint and Reason for Visit Chief [...] 2024 8:54am Hyperlipidemia April 23, 2024 8:54am snf 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 insulin Decembe r 2023 8:54am Persistent albuminuria April 23 8:54am Type 2 diabetes mellitus with hyperglyce samir April 23, 2024 8:54am Vitamin D deficiency April 23, 2024 8:54am BMI 25.0-25.9,adult June 18, 2024 8:25am Dietary counseling and surveillance Febr uary 2024 8:25am HTN (hypertension) June 18, 2024 8:25am Hyperlipidemia June 18, 2024 8:25am 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 Februar y 2024 8:25am Persistent albuminuria June 18 8:25am Type 2 diabetes mellitus with hyperglyce samir June 18, 2024 8:25am Vitamin D deficiency June 18, 2024 8:25am Chief Complaint Admit Date DMN f/u / meter April 23, 2024 8:54am 8 week-DMN f/u / meter June 18 8:25am E55.9 E11.65 R80.9 E78.5 I10 June 182024 9:52am Chief Complaint Admit Date Unknown September 23, 2024 9:38a m Amb Documentation September 24, 2024 8:46a m 12 weeks-DMN f/u-PAP MEDS HERE October 09, 2024 8:20am Reason for Visit Admit Date BMI 25.0-25.9,adult October 09, 2024 8:20a m Dietary counseling and surveillance October 09, 2024 8:20am HTN (hypertension) October 09, 2024 8:20a m Hyperlipidemia October 09, 2024 8:20a m snf 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 insulin October 8:20am Persistent albuminuria October 09, 2024 8: 20am Type 2 diabetes mellitus with hyperglyce samir October 09, 2024 8:20am Vitamin D deficiency October 09, 2024 8:20 am Additional Source Comments (unrecognized sect ion and content) No Status Records FoundNo Status Records FoundNo Status Records FoundNo Status Records FoundNo Status Records FoundNo Status Records Found INFORMATION SOURCE (unrecogn ized section and content) DATE CREATED AUTHOR 04/12/2020 [facility] DATE CREATED AUTHOR AUTHOR'S ORGANIZ ATION 04/07/2024 [facility] EPIC DATE CREATED AUTHOR AUTHOR'S ORGANIZ ATION 10/02/2024 [facility] DATE CREATED AUTHOR AUTHOR'S ORGANIZ ATION 10/08/2024 [facility] DATE CREATED AUTHOR AUTHOR'S ORGANIZ ATION 10/20/2024 [facility] DATE CREATED AUTHOR AUTHOR'S ORGANIZ ATION 10/26/2024 [facility] REASON FOR VISIT (unrecogniz ed section and content) Reason Comments Critical limb ischemia of right lower ex tremity with gangre rt leg angiogram 10-17-24 Care Teams (unrecognized sec tion and content) Team Status: Active Member Role Status Dates NON STAFF Primary Care Provider Active Team Status: Active Member Role Status Dates FREDI Salinas Primary Care Provider Active Start: September 20, 2024 Krys Hummel MD Attending Provider Active Sta rt: September 20, 2024 Team Status: Active Member Role Status Dates Francisco Walters [employer] Primary Care Provider Active Start: September 21, 2024 Shaikh Shaji MD Attending Provider Active Sta rt: September 21, 2024 Team Status: Active Member Role Status Dates Francisco Walters [employer] Primary Care Provider Active Start: September 22, 2024 Shaikh Shaji MD Attending Provider Active Sta rt: September 22, 2024 Team Status: Active Member Role Status Dates Francisco Walters [employer] Primary Care Provider Active Start: September 23, 2024 Shaikh Shaji MD Attending Provider Active Sta rt: September 23, 2024 Team Status: Inactive Member Role Status Dates Mayra Spears DPM MS Attending Provider Active Start: September 23, 2024 End: September 23, 2024 Team Status: Active Member Role Status Dates Desiree Garcia CMA Attending Provider Active Start: September 24, 2024 Team Status: Inactive Member Role Status Dates Yolette Pierre APRN Attending Provider Active Start: October 09, 2024 End: October 09, 2024 NON STAFF Primary Care Provider Active Start: October 09, 2024 End: October 09, 2024 Team Status: Active Member Role Status Dates Le Rodgers MD Primary Care Provider Active Team Status: Inactive Member Role Status Dates Yolette Pierre , MEDICAL RECORDS ASSISTANT Attending Provider Active Start: June 05, 2023 End: June 05, 2023 Team Status: Inactive Member Role Status Dates Yolette Pierre , MEDICAL RECORDS ASSISTANT Active Star t: June 05, 2023 End: June 05, 2023 Le Rodgers MD Primary Care Provider Active Start: June 05, 2023 End: June 05, 2023 Yolette Pierre , MEDICAL RECORDS ASSISTANT Attending Provider Active Start: June 05, 2023 End: June 05, 2023 Team Status: Inactive Member Role Status Dates Le Rodgers MD Primary Care Provider Active Start: September 10, 2023 End: September 10, 2023 Yolette Pierre , MEDICAL RECORDS ASSISTANT Attending Provider Active Start: September 10, 2023 End: September 10, 2023 Team Status: Inactive Member Role Status Dates Le Rodgers MD Primary Care Provider Active Start: January 21, 2024 End: January 21, 2024 Yolette Pierre APRN Attending Provider Active Start: January 21, 2024 End: January 21, 2024 Retail Asset Protection Specialist Relationship Specialty Start Date End Date Melanie Daley DO [address] [address] Referring Physician Neurology 04/07/24 Leticia Blanco NP [address] [address] Nurse Practitioner Neurology 04/07/24 Suzanna Ybarra NP [address] [phone] Nurse Practitioner Neurology 04/07/24 Team Status: Inactive Member Role Status Dates [...] Team Status: Active Member Role Status Dates JOHN SalinasC Primary Care Provider Active Team Status: Inactive Member Role Status Dates Yolette Pierre APRN Attending Provider Active Start: June 18, 2024 End: June 18, 2024 Retail Asset Protection Specialist Relationship Specialty Start Date End Date No Pcp, [place] [address] PCP - General Family Medicine 04/11/24 Goals (unrecognized section and content) Goals may [...] BE BASED ON THE PRIMARY CLINICAL RECORDS. [facility]. provides no warranty or guarantee of the accuracy or completeness of information in this document.
== END 2024-10-29 14:28 | disposition home or self-care (01) ==
LOC: WC 14:28
PROVIDERS: PCP Family Medicine; Visit Provider Podiatrist Foot & Ankle Surgery
DX: M86.171 Other acute osteomyelitis, right ankle and foot (principal); Z89.411 Acquired absence of right great toe; I70.261 Atherosclerosis of native arteries of extremities with gangrene, right leg; L97.514 Non-pressure chronic ulcer of other part of right foot with necrosis of bone
CPT/HCPCS: 11044

== ENCOUNTER 2024-10-29 17:09 | Outpatient (REF) | payer MEDICARE, SELFPAY ==
--- OUTSIDE RECORDS SUMMARY | 2024-03-26 06:01 | XMS_ITS ---
Author Organization The [facility] in [place] Address [address] [place] [address] Care Team Providers Care Building Code Administrator Name Role Phone None, Unknown or Primary Care Provider Unavailab Marii Quesada Unavailable [phone] REASON FOR VISIT needs yearly appointment Encounters Encounter Location Date Provider Diagnosis [facility] [address] [place] [address] 03/26/2024 Marii Templeton Plan Of Treatment No Information Progress Notes * Nu RODRIGUEZ HDOB:1959 (64 yo M)Acc No.[id number]:03/26/2024 Patient: Romy KNIGHTjeanne Kasie :1960 A ge:64 Y S ex:Male Address:[address] [place] [address], [phone] * true * Date: Generated for Printi ng/Fakendrickg/eTransmitting on: 0 10/29/2024 05:18 PM EDT
--- OUTSIDE RECORDS SUMMARY | 2024-10-17 10:16 | XMS_ITS | Encounter Summary ---
Author Organization [facility] tem Address [facility] [place][id number] [address] [place] [address] Care Team Providers Care Hedge Fund Accountant Name Role Phone No Pcp, No Pcp Primary Care Provider Unavailabl e Reason for Visit * Auth/Cert Specialty Diagnoses / Procedures Referred By Conthumaira t Referred To Contact Diagnoses PAD (peripheral artery disease) Gangrene (CMS-HCC) Critical limb ischemia of right lower extremity with gangrene (CMS-HCC) pad critical limb ischemia Procedures lower ext angio Jamil Culver MD [address], [address] [address] Phone: tel: fax: Referral ID Status Reason Start Date Expiration Date Visits Re quested Visits Authorized [id number] 1 1 Encounter Details Date Type Department Care Team (Latest Contact Info) Description 10/17/2024 10:16 AM EDT - 10/17/2024 4:50 PM EDT Hospital Encounter [facility] - CVU-IVU [address] [place] [address] Jamil Culver MD [address], [address] [address] PAD (peripheral artery disease); Gangrene (CMS-HCC); Critical [...] further assistance with quitting, you can contact [facility] at [phone] ( [phone] or consult your physician. *Discharge [...] AND PHYSICAL INTERVAL NOTE: Jassi Rodriguez 1960 [id number] H&P reviewed. The patient was examined and [...] Diagnosis Date Diabetes mellitus type 2, controlled ([facility]) Hyperlipidemia Hypertension Past Surgical History: No past [...] ischemia of right lower extremity with gangrene ([facility]) - Primary Current Assessment & Plan He [...] ischemia of right lower extremity with gangrene ([facility]) PAD (peripheral artery disease) - [facility] [place] Gangrene ([facility]) - [facility] - [place], [place] Jamil Cuvler MD, RADHA, RPVI, FSVS, FACS [facility] [...] Details Patient Name: Jassi Rodriguez Medical Record: [id number] Date of Operation: 10/17/2024 Preoperative Diagnosis: Right [...] The patient was then taken to the cork slabs sawyer and transferred to the table. Bilateral groins [...] were associated with this study. Documented by Jmail Culver MD - 10/17/2024 2:19 PM Measurements Cath EF Calculated: Implants Name ID Temporary Type Supply No information to display Vascular Access Sheath inserted in the left femoral artery. Sheath insertion performed by Weighmaster. Medications Time Date Event Details User 12:15 [...] (mmHg) Ao 0 0 0 Performing Department [facility] - Cardiac Cath [address] [facility] [place] [address] documented in this encounter Plan of Treatment [...] PM EDT PAD (peripheral artery disease) Gangrene ([facility]) Critical limb ischemia of right lower extremity [...] Details Patient Name: Jassi Rodriguez Medical Record: [id number] Date of Operation: 10/17/2024 Preoperative Diagnosis: Right [...] The patient was then taken to the cork slabs sawyer and transferred to the table. Bilateral groins [...] - 99 mg/dL 10/20/2024 9:02 AM EDT [facility] 10/17/2024 10:4 9 AM EDT 10/20/2024 9:02 AM EDT us Jamil Culver MD POINT OF CARE TEST ORDERABLES Final Result [facility] [address] [place] [address], * POCT BUN, creat (10/17/2024 10:49 AM EDT) POC BUN 17 6 - 27 mg/dL 10/20/2024 9:02 AM EDT [facility] POC Creatinine 1.1 0.7 - 1.2 mg/dL 10/20/2024 9:02 AM EDT [facility] POC EGFR Non-Race Dependent 75 >=60 ml/min/1.7 3sq.m 10/20/2024 9:02 AM EDT [facility] Comment: Reported eGFR is based on the CKD-EPI 2020 equation that does not use a race coefficient. 10/17/2024 10:4 9 AM EDT 10/20/2024 9:02 AM EDT us Jamil Culver MD POINT OF CARE TEST ORDERABLES Final Result [facility] [address] [place] [address], documented in this encounter Visit Diagnoses Diagnosis [...] RN) documented in this encounter Care Teams Hedge Fund Accountant Relationship Specialty Start Date End Date No Pcp, [place] [address] PCP - General Family Medicine 04/11/24 documented as of this encounter
--- OUTSIDE RECORDS SUMMARY | 2024-10-17 12:00 | XMS_ITS | Encounter Summary ---
Author Organization [facility] tem Address [facility] [place]-[id number] [address] [place] [address] Care Team Providers Care Trade Manager Name Role Phone No Pcp, No Pcp Primary Care Provider Unavailabl e Reason for Visit * Auth/Cert Specialty Diagnoses / Procedures Referred By Contac t Referred To Contact Diagnoses PAD (peripheral artery disease) Gangrene ([facility]) Critical limb ischemia of right lower extremity with gangrene ([facility]) pad critical limb ischemia Procedures lower ext angio Jamil Culver MD [address], [address] [address] Phone: tel: fax: Referral ID Status Reason Start Date Expiration Date Visits Re quested Visits Authorized [id number] 1 1 Encounter Details Date Type Department Care Team (Late st Contact Info) Description 10/17/2024 12:00 PM EDT - 10/17/2024 12:45 PM EDT Surgery [facility] - Cardiac Cath [address] [place] [address] Jamil Culver MD [address], [address] [address] lower ext angio Surgery Details Date/Time Status Location OR Service Patient Class Case Class Case Type Trauma Case? 10/17/2024 12:00 PM Posted [facility] CARDIAC CATH [facility]S [facility] Peripheral Vascular Outpatient Elective Panel 1 Procedure LRB Anes Op Region Wound Class Comments lower ext angio Right Moderate Sedation Surgeon Surgeon Role Service Panel Jamil Culver MD Primary Peripheral Vascular 1 documented in this encounter Social History Tobacco Use Types Packs/Day Years [...] Sign Reading Time Taken Comments Blood Pressure 128/85 10/17/2024 12:40 PM EDT Pulse 80 10/17/2024 12:40 PM EDT Temperature - - Respiratory Rate 12 10/17/2024 12:40 PM EDT Oxygen Saturation 98% 10/17/2024 12:34 PM EDT Inhaled Oxygen Concentration - - [...] or equal to 100.4??F and/or chills Call 9-1-1 if you have signs or symptoms of [...] further assistance with quitting, you can contact [facility] at [phone] ( [phone] or consult your physician. *Discharge [...] as of this encounter H&P Notes * Jamil Culver MD - 10/17/2024 1:52 PM EDT HISTORY AND PHYSICAL INTERVAL NOTE: Jassi Rodriguez [id number] H&P reviewed. The patient was examined and [...] Diagnosis Date Diabetes mellitus type 2, controlled ([facility]) Hyperlipidemia Hypertension Past Surgical History: No past [...] ischemia of right lower extremity with gangrene ([facility]) - Primary Current Assessment & Plan [...] ischemia of right lower extremity with gangrene ([facility]) PAD (peripheral artery disease) - [facility] - [place], [place] Gangrene ([facility]) - [facility] [place] Jamil Culver MD, RADHA, RPVI, FSVS, FACS [facility] This note was created with the [...] Details Patient Name: Jassi Rodriguez Medical Record: [id number] Date of Operation: 10/17/2024 Preoperative Diagnosis: Right [...] The patient was then taken to the mineral ore processing labourer and transferred to the table. Bilateral groins [...] left femoral artery. Sheath insertion performed by Lead Php Developer. Medications Time Date Event Details User 12:15 [...] (mmHg) Ao 0 0 0 Performing Department [facility] - Cardiac Cath [address] [facility] [place] [address] documented in this encounter Plan of Treatment [...] PM EDT PAD (peripheral artery disease) Gangrene (CMS-HCC) Critical [...] Details Patient Name: Jassi Rodriguez Medical Record: [id number] Date of Operation: 10/17/2024 Preoperative Diagnosis: Right [...] The patient was then taken to the mineral ore processing labourer and transferred to the table. Bilateral groins [...] was placed. Patient tolerated the procedure well. Jamil Culver MD CV CARDIAC CATH ORDERABLES Fi nal Result * Portable Glucose Istat (10/17/2024 10:49 AM EDT) [facility] POC Glucose 89 65 - 99 mg/dL 10/20/2024 9:[address] [facility] 10/17/2024 10:4 9 AM EDT 10/20/2024 9:02 AM EDT Jamil Culver MD POINT OF CARE TEST ORDERABLES Final Result [facility] [address] [place] [address], [place] * POCT BUN, creat (10/17/2024 10:49 AM EDT) Pathologist [facility] POC BUN 17 6 - 27 mg/dL 10/20/2024 9:[address] [facility] POC Creatinine 1.1 0.7 - 1.2 mg/dL 10/20/2024 9:[address] [facility] POC EGFR Non-Race Dependent 75 >=60 ml/min/1.7 3sq.m 10/20/2024 9:[address] [facility] Comment: Reported eGFR is based on the CKD-EPI 2020 equation that does not use a race coefficient. 10/17/2024 10:4 9 AM EDT 10/20/2024 9:02 AM EDT us Jamil Culver MD POINT OF CARE TEST ORDERABLES Final Result [facility] [address] [place] [address], documented in this encounter Visit Diagnoses Diagnosis [...] MAR Action Action Date Dose Rate Site fentaNYL (SUBLIMAZE) injection Code/trauma/sedation medication, Starting on Sun10/17/24 at 1215, Intra-Procedure (CV) Given 10/17/2024 12:15 PM EDT 50 mcg iodixanoL (VISIPAQUE) 320 mg iodine/mL injection Code/trauma/sedation medication, Starting on Sun10/17/24 at 1232, Intra-Procedure (CV) Given 10/17/2024 12:32 PM EDT 30 mL lactated ringers infusion 75 mL/hr, intravenous, Continuous, Starting on Sun10/17/24 at 1045, For 1 day, Pre-op lidocaine PF (XYLOCAINE) 10 mg/mL (1 %) injection Code/trauma/sedation medication, Starting on Sun10/17/24 at 1216, Intra-Procedure (CV) Given 10/17/2024 12:16 PM EDT 10 mL midazolam (PF) (VERSED) injection Code/trauma/sedation medication, Starting on Sun10/17/24 at 1216, Intra-Procedure (CV) Given 10/17/2024 12:16 PM EDT 1 mg documented in this encounter Active and Recently [...] RN) documented in this encounter Care Teams Trade Manager Relationship Specialty Start Date End Date No Pcp, [place] [address] PCP - General Family Medicine 04/11/24 documented as of this encounter
--- OUTSIDE RECORDS SUMMARY | 2024-10-23 10:50 | XMS_ITS | Encounter Summary ---
Author Organization [employer] tem Address [facility] [id number] [address] [place] [address] Care Team Providers Care Shelf Stocker Name Role Phone No Pcp, No Pcp Primary Care Provider Unavailabl e Reason for Visit * Reason Comments Critical limb ischemia of right lower ex tremity with gangre rt leg angiogram 10-17-24 Encounter Details Date Type Department Care Team (Late st Contact Info) Description 10/23/2024 10:50 AM EDT Office Visit [facility] [address] [place] [address] Jamil Culver MD [address], [address] [address] Critical limb ischemia of right lower extremity with gangrene (CMS-HCC) (Primary Dx) Social History Tobacco Use Types Packs/Day Years [...] Sign Reading Time Taken Comments Blood Pressure 112/76 10/23/2024 10:55 AM EDT Pulse 72 10/23/2024 10:55 AM EDT Temperature - - Respiratory Rate - - Oxygen Saturation - - Inhaled Oxygen Concentration - - Weight 72.6 kg (160 lb) 10/23/2024 10:55 AM EDT Height 175.3 cm (5' 9 ) 10/23/2024 10:55 AM EDT Body Mass Index 23.63 10/23/2024 10:55 AM EDT documented in this encounter Progress Notes * Jamil Culver MD - 10/23/2024 10:50 AM EDT Images from the original note were not included. To: NO PCP, NO PCP HPI: Jassi Rodriguez is a 64 y.o. male with recent toe amputation and concern of occlusive disease status post angio. He has wound is healing well and he does not have significant occlusive disease.. Review of Systems: Review of Systems Constitutional: Negative. HENT: Negative. Respiratory: Negative. Cardiovascular: Negative. Gastrointestinal: Negative. Endocrine: Negative. Genitourinary: Negative. Musculoskeletal: Negative. Skin: Negative. Neurological: Negative. Hematological: Negative. Medications: Current Outpatient Medications on File Prior to Visit Medication Sig Dispense Refill aspirin 81 mg chewable tablet Chew 1 tablet (81 mg total) and swallow in the morning. 90 tablet 4 dapagliflozin propanediol (FARXIGA) 10 mg tablet Take [...] Inject under the skin See Admin Instructions. ciprofloxacin HCl (CIPRO) 500 mg tablet Take 1 tablet (500 mg total) by mouth in the morning and 1 tablet (500 mg total) before bedtime. (Patient not taking: Reported on 10/23/2024) cyclobenzaprine (FLEXERIL) 10 mg tablet Take 1 tablet (10 mg total) by mouth 2 (two) times a day asneeded for muscle spasms. (Patient not taking: Reported on 10/23/2024) 10 tablet 0 insulin glargine (LANTUS) 100 [...] mg total) by mouth in the morning. (Patient not taking: Reported on 10/23/2024) OXcarbazepine (TRILEPTAL) 150 mg tablet Take 1 [...] Diagnosis Date Diabetes mellitus type 2, controlled ([facility]) Hyperlipidemia Hypertension Past Surgical History: Past Surgical History: Procedure Laterality Date lower ext angio Right 10/17/2024 Performed by Jamil Culver MD at [facility] CARDIAC CATH LABS Social and Family History: Social History Socioeconomic [...] the assessment and plan below. Vitals: BP 112/76 (BP Site: Right Arm, BP Postition: Sitting, BP CUFF SIZE: M (9-13 inches)) Pulse 72 Ht 175.3 cm (5' 9 ) Wt 72.6 kg (160 lb) BMI 23.63 kg/m?? Body mass index is 23.63 kg/m??. Physical Exam: Physical Exam Constitutional: Appearance: [...] content normal. Judgment: Judgment normal. Recent testing: Assessment and Plan: Problem List Critical limb ischemia of right lower extremity with gangrene (CMS-HCC) - Primary Current Assessment & Plan He has no significant occlusive disease. Plan is to continue to work with podiatry and follow up with us as needed. Jassi was seen today for critical limb ischemia of right lower extremity with gangre. Diagnoses and all orders for this visit: Critical limb ischemia of right lower extremity with gangrene (CMS-HCC) Jamil Culver MD, RADHA, RPVI, FSVS, FACS [facility] This note was created with the assistance of a speech recognition program. While intending to generate a timely document that accurately reflects the content of the visit, no guarantee can be provided that every grammatical or spelling mistake has been or will be identified or corrected. Thank youfor your understanding. documented in this encounter Miscellaneous Notes * Assessment & Plan Note - Jamil Culver MD - 10/23/2024 11:31 AM EDT Associated Problem(s): Critical limb ischemia of right lower extremity with gangrene (CMS-HCC) He has no significant occlusive disease. Plan is to continue to work with podiatry and follow up with us as needed. documented in this encounter Plan of Treatment [...] ischemia of right lower extremity with gangrene (CMS-HCC)- Primary documented in this encounter Care Teams Shelf Stocker Relationship Specialty Start Date End Date No Pcp, [place] [address] PCP - General Family Medicine 04/11/24 documented as of this encounter
--- OUTSIDE RECORDS SUMMARY | 2024-10-29 17:16 | XMS_ITS | Clinical Summary ---
Author Organization ethologys tem Address [id number] [address] [place] [address] Care Team Providers Care Frame Operator Name Role Phone No Pcp, No [...] Active Additional Information Patient not taking.Reported on 10/23/2024 lidocaine (LIDODERM) 5 %Indications:Wanda sed fracture of multiple ribs of right side, initial encounter Place 1 patch on the skin daily. Remove & Discard patch within 12 hours or as directed by 30 patch 4 Active Additional Information Patient not taking.Reported on 10/23/2024 ciprofloxacin HCl (CIPRO) 500 mg tablet Take [...] Active Problems Problem Noted Date Diagnosed Date PAD (peripheral artery disease) 10/07/2024 Gangrene 10/07/2024 Critical limb ischemia of ri t lower extremity with gangrene 09/25/2024 Assessment & Plan (10/23/2024 11:31 AM EDT): He has no significant occlusive disease. Plan is to continue to work with podiatry and follow up with us as needed. Assessment & Plan (09/25/2024 11:23 AM EDT): He has the duplex ultrasound that shows tibial occlusive disease in the right lower extremity. His foot looks chronically ischemic. Will get PVR and plan to do right lower extremity angiogram and intervention. Facial cellulitis 09/16/2016 Encounters Date Type Department Care Team Description 10/23/2024 10:50 AM EDT Office Visit [facility] [address] [place] [address] Jamil Culver MD Critical limb ischemia of right lower extremity with gangrene ([facility]) (Primary Dx) 10/23/2024 Travel 10/17/2024 12:00 PM EDT - 10/17/2024 12:45 PM EDT Surgery [facility] Cardiac Cath [address] [place] [address] Jamil Culver MD lower ext angio 10/17/2024 10:16 AM EDT - 10/17/2024 4:50 PM EDT Hospital Encounter [facility] - CVU-IVU [address] [place] [address] Jamil Culver MD PAD (peripheral artery disease); Gangrene (CMS-HCC); Critical limb ischemia of right lower extremity with gangrene ([facility]) Discharge Disposition: Home 10/17/2024 Travel 10/07/2024 3:35 PM EDT - 10/07/2024 11:59 PM EDT Hospital Encounter [facility] [address] [place] [address] Poor circulation; Gangrene (CMS-HCC); PAD (peripheral artery disease) Discharge Disposition: Home 10/07/2024 Travel 09/25/2024 11:00 AM EDT Office Visit [facility] Vascular Surgery [address] [place] [phone] Jamil Culver MD Critical limb ischemia of right lower extremity with gangrene ([facility]) (Primary Dx); PAD (peripheral artery disease); Gangrene [...] Pulse 72 10/23/2024 10:55 AM EDT Temperature 36.3 C (97.3 F) 09/25/2024 10:48 AM EDT Respiratory Rate 12 10/17/2024 4:00 PM EDT Oxygen Saturation 97% 10/17/2024 4:00 PM EDT Inhaled Oxygen Concentration - - Weight 72.6 kg (160 lb) 10/23/2024 10:55 AM EDT Height 175.3 cm (5' 9 ) 10/23/2024 10:55 AM EDT Body Mass Index 23.63 10/23/2024 10:55 AM EDT Plan of Treatment Health Maintenance Due Date Last Done Comments Depression Screening 1973 DTaP,Tdap and Td Vaccines (1 - Tdap) 02/06/1980 Zoster (Shingles) Vaccine (1 of 2) 2011 Influenza Vaccine 01/05/2025 Tobacco Screening 04/11/2025 04/11/2024 Adult BMI Screening 10/23/2025 10/23/2024 Goals Goal Patient Goal Type Associated Problems Recent Progress Patient-Stated? Author dc to home General Yes Camille Celaya, RN Note: Evaluation of progress towards goal: Patients goal is to discharge to home. Medical Devices Not on file Procedures Procedure Name Priority Date/Time Associated Diagnosis Comments VASCULAR INVASIVE Routine 10/17/2024 12: 31 PM EDT PAD (peripheral artery disease) Gangrene (CMS-HCC) Critical limb ischemia of right lower extremity with gangrene (CMS-HCC) PORTABLE GLUCOSE Routine 10/17/2024 10:4 9 AM EDT POCT BUN, CREAT Routine 10/17/2024 10:49 AM EDT VASC ARTERIAL DOPPLER LOWER BILATERAL MULTI LEVEL/PVR Routine 10/07/2024 4:29 PM EDT Poor circulation Gangrene ([facility]) PAD (peripheral artery disease) from Last 3 Months Results * VASCULAR INVASIVE (10/17/2024 12:31 PM EDT) Anatomical Region Laterality Modality X-Ray Angiograph y Narrative 10/17/2024 2:19 PM EDT Recommendations: No evidence of significant arterial occlusive disease. Continue wound care and follow up with Podiatry. Procedure Details Patient Name: Jassi Rodriguez Medical Record: [id number] Date of Operation: 10/17/2024 Preoperative Diagnosis: Right [...] The patient was then taken to the laborer carpentry dock and transferred to the table. Bilateral groins [...] - 99 mg/dL 10/20/2024 9:02 AM EDT [facility] 10/17/2024 10:4 9 AM EDT 10/20/2024 9:02 AM EDT Jamil Culver MD POINT OF CARE TEST ORDERABLES Final Result [facility] [address] [address], * POCT BUN, creat (10/17/2024 10:49 AM EDT) POC BUN 17 6 - 27 mg/dL 10/20/2024 9:02 AM EDT [facility] POC Creatinine 1.1 0.7 - 1.2 mg/dL 10/20/2024 9:02 AM EDT [facility] POC EGFR Non-Race Dependent 75 >=60 ml/min/1.7 3sq.m 10/20/2024 9:02 AM EDT [facility] Comment: Reported eGFR is based on the CKD-EPI 2020 equation that does not use a race coefficient. 10/17/2024 10:4 9 AM EDT 10/20/2024 9:02 AM EDT us Jamil Culver MD POINT OF CARE TEST ORDERABLES Final Result [facility] [address] [place] [place] [address], [place] * Vas art doppler lwr bilat mult lev/PVR (10/07/2024 4:29 PM EDT) Anatomical Region Laterality Modality Vascular Bilateral Ultrasound 10/07/2024 4:57 PM EDT Narrative 10/10/2024 12:20 PM EDT Right: Essentially normal PVR waveform contour at all levels. Calf waveform augmentation noted. DP ELIA is 1.06; Audible PT Doppler signals despite occlusive cuff pressures exceeding >250mmHg at the ankle level. TBI is 0.53 on 2nd toe. Multiphasic with diastolic flow reversal common femoral, PT and DP CW Doppler waveforms. Essentially normal PPG waveform contour for 2nd toe. Left: Essentially normal PVR waveform contour at all levels. Calf waveform augmentation noted. DP ELIA is 1.33. Audible PT Doppler signals despite occlusive cuff pressures exceeding >250mmHg at the ankle level. TBI is 1.02. Multiphasic with diastolic flow reversal common femoral, PT and DP CW Doppler waveforms. Essentially normal PPG waveform contour for 1st toe. Conclusions: BILATERAL: Normal lower extremity arterial physiological examination at rest. Recommendations: Any questions prior to finalization, please call the reading physician during normal business hours at the phone number beside their name. Procedure Note Onur Love MD - 10/10/2024 Right: Essentially normal PVR waveform contour at all levels. Calfwaveform augmentation noted. DP ELIA is 1.06; Audible PT Doppler signalsdespite occlusive cuff pressures exceeding >250mmHg at the ankle level.TBI is 0.53 on 2nd toe. Multiphasic with diastolic flow reversal common femoral, PT and DP CW Doppler waveforms.Essentially normal PPG waveform contour for 2nd toe. Left: Essentially normal PVR waveform contour at all levels. Calf waveformaugmentation noted. DP ELIA is 1.33. Audible PT Doppler signals despiteocclusive cuff pressures exceeding >250mmHg at the ankle level. TBI is1.02. Multiphasic with diastolic flow reversal common femoral, PT and DP CW Doppler waveforms. Essentiallynormal PPG waveform contour for 1st toe. Conclusions: BILATERAL: Normal lower extremity arterial physiologicalexamination at rest. Recommendations: Any questions prior to finalization, please call thereading physician during normal business hours at the phone number besidetheir name. us Colton Spears DPM CV VASCULAR ORDERABLES Fi nal Result from Last 3 Months Insurance [facility] MEDIC[facility] Advance Directives * Full Code (Latest Code Status on File) Date Activated Date Inactivated Comments 09/16/2016 8:20 PM 09/22/2016 8:22 PM * Full Code Date Activated Date Inactivated Comments 09/16/2016 1:01 PM 09/16/2016 8:20 PM Care Teams Frame Operator Relationship Specialty Start Date End Date No Pcp, [place] [id number] PCP - General Family Medicine 04/11/24
--- OUTSIDE RECORDS SUMMARY | 2024-10-29 17:16 | XMS_ITS | Clinical Summary ---
Author Organization [facility] Address [address] [place] [address] Care Team Providers Care Stonemason Name Role Phone Raman Daley DO Unavailable [phone] Leticia Blanco FINANCIAL SERVICES AGENT Unavailable [phone] Suzanna Ybarra NP Unavailable Unavailable Allergies No known active allergies Medications dapagliflozin [...] Plan of Treatment Not on file Insurance [facility] Care Teams Stonemason Relationship Specialty Start Date End Date Raman Daley DO [id number] [phone] Referring Physician Neurology 04/07/24 Leticia Blanco NP [address] [address] Nurse Practitioner Neurology 04/07/24 Suzanna Ybarra NP [address] [address] Nurse Practitioner Neurology 04/07/24
--- OUTSIDE RECORDS SUMMARY | 2024-10-29 17:16 | XMS_ITS | Patient Health Record ---
Author Organization [facility] Address [address] [place], [place] [address] Care Team Providers Care Fashion Editor Name Role Phone Ximena Walters Unavailable [phone] Ned Rizo Unavailable [phone] Allergies No Known Allergies Results Component Value Reference Range Notes LIPID PANEL WITH REFLEX TO D IRECT LDL Reviewed date:04/18/2024 11:01:54 PM Interpretation: Performing Lab: Notes/Report: CHOLESTEROL 205 100-199 mg/dL TRIGLYCERIDES 105 20-149 mg/dL VLDL-CHOL, CALCULATED 21 <30 mg/dL HDL-CHOL 72 >=40 mg/dL LDL-CHOL, CALCULATED 112 <130 mg/dL ADULT LDL CHOLESTEROL CLASSIFICATION <100mg/dL Optimal 100-129 Near/Abo ve Optimal 130-159mg/dL Borderli ne High >160mg/dL High Risk Desirable range <100 mg/dL for patients with CHD or diabetes and <70 mg/dL for diabetic patients with known heart disease. Direct LDL is recommended for patients with triglycerides >400. LDL/HDL 1.6 <5.0 LDL/HDL RATIO MALE FEMALE below average risk <2.3 <2.3 average risk <5.0 <4.1 moderate risk <7.1 <5.6 high risk >7.1 >5.6 CHOL/HDL 2.8 2.0-4.5 COMPREHENSIVE METABOLIC PANE L WITH GFR Reviewed date:04/18/2024 11:01:54 PM Interpretation: Performing Lab: Notes/Report: GLUCOSE 98 70-100 mg/dL BUN 15 8-23 mg/dL CALCIUM 9.2 8.6-10.5 mg/dL CREATININE, BLOOD 1.08 0.67-1.30 mg/dL eGFR (2020 CKD-EPI) 77 >59 mL/min/1.73m2 SODIUM 138 135-148 mmol/L POTASSIUM 4.5 3.5-5.4 mmol/L CHLORIDE 100 96-107 mmol/L CO2 28 18-32 mmol/L ANION GAP 10 7-16 mmol/L T. BILIRUBIN 0.5 <1.3 mg/dL ALK PHOS 111 39-118 U/L AST-SGOT 27 9-50 U/L ALT-SGPT 20 5-41 U/L T. PROTEIN 8.0 6.0-8.3 g/dL ALBUMIN 3.7 3.5-5.2 g/dL PSA, TOTAL, 3RD GENERATION Reviewed date:04/18/2024 11:01:54 PM Interpretation: Performing Lab: Notes/Report: PSA, TOTAL 0.764 0-4.00 ng/mL Method: Irena Haleigh ECLIA PSA levels should not be interpreted as absolute evidence of disease, however it is widely accepted as an adjunctive test in the management of prostate cancer patients. Values obtained with different assay methods or kits can not be used interchangeably. A detectable PSA following radical prostatectomy is associated with eventual clinical disease recurrence in some, but not all patients. It may also be due to the presence of benign glands. The AUA defines biochemical recurrence as an initial PSA value >=0.2 ng/ml followed by a subsequent confirmatory PSA value >=0.2 ng/ml. HEMOGLOBIN A1C Reviewed date:04/18/2024 11:01:54 PM Interpretation: Performing Lab: Notes/Report: HEMOGLOBIN A1C 6.7 <5.7 % Prediabetes: 5.7% to 6.4% Diabetes: >6.4% Glycemic control for adults with diabetes: <7.0% Use with caution in patients with abnormal hemoglobin variants as the half-life of red blood cells and in vivo glycation rates are affected. AVERAGE WHOLE BLOOD GLUCOSE 146 <126 mg/dl UNLESS OTHERWISE INDICATED, ALL TESTING PERFORMED AT: [facility] [facility] [address] [place] [address] [employer] M[employer]ER: SHIRLEY MCCARTY M.D. CLIA NUMBER [id number] CAP ACCREDITATION AUID [id number] Changes in testing location may be associated with reference range changes for a number of analytes. Please review reference intervals carefully. HIV-1 2 COMBO AG/AB Reviewed date:04/18/2024 11:01:54 PM Interpretation: Performing Lab: Notes/Report: Negative for HIV-1 antigen and HIV-1/HIV-2 antibodies. No laboratory evidence of HIV infection. Does not exclude the possibility of exposure to or infection with HIV-1 and/or HIV-2 that are below the limit of detection of this assay. HIV-1,2 COMBO AG/AB Nonreactive Nonreactive HIV-1 p24 Ag Nonreactive Nonreactive HIV-1/HIV-2 Abs Nonreactive Nonreactive HEPATITIS C AB REFLEX QUANT Reviewed date:04/18/2024 11:01:54 PM Interpretation: Performing Lab: Notes/Report: HEPATITIS C AB NEGATIVE NEGATIVE Reason For Referral No Information Medications Medication SIG (Take, Route, Frequency, Duration) Notes Start Date End Date Status Rosuvastatin Calcium 5 MG 1 tablet Orall y Once a day for 90 days 05/16/2024 Active Doxycycline Monohydrate 100 MG Oral for 10 Days Not-Taking Lisinopril 5 MG 1 tablet Orally Once a day for 90 days 05/16/2024 Active Farxiga 10 MG 1 tablet Orally Once a day Active FreeStyle Miladys 2 Sensor - for 84 Days Active Ciprofloxacin HCl 500 MG TAKE 1 TABLET B Y MOUTH TWICE DAILY Oral for 10 Days Active OXcarbazepine Not-Ta brian Lantus 100 UNIT/ML 40U Subcutaneous nightly Active metFORMIN HCl 500 MG 2 tablets in the AM and 2 tablets in the PM Orally twice daily Active Ibuprofen 800 MG 1 tablet with food o r milk as needed Orally every 8 hrs for 30 days Active Cyclobenzaprine HCl 10 MG 1 tablet at be dtime as needed Orally Once a day for 30 days 05/01/2024 Active Ozempic (0.25 or 0.5 MG/DOSE) 2 MG/3ML 0.25 milliliters as directed Subcutaneous once weekly Active FreeStyle Miladys 2 Sensor - USE DIRECT ED TO MONITOR BLOOD SUGAR AND CHANGE EVERY 14 DAYS for 84 Days Active Problems Problem Type SNOMED Code ICD Code Onset Dates Problem Status W/U Status Risk Notes Problem 010935377 Type 2 diabetes mellitus with diabetic polyneuropathy (E11.42) Active confirmed Problem 77836113 Essential hypertension (I10) Active confirmed Problem 38595052 Mild hyperlipidemia (E78.5) Active confirmed Problem Amputation of toe (921659661) Amputation toe (S98.139A) Active confirmed Vital Signs Heart Rate 97 /min 09/30/2024 denies pain. Penelope Metzger 09/30/2024 01:20:48 PM EDT > Temperature 97.4 degrees Fahrenheit 09/30/2024 fermin es pain. Penelope Faria 09/30/2024 01:20:48 PM EDT > Respiratory Rate 18 /min 09/30/2024 denies pain . Penelope Faria 09/30/2024 01:20:48 PM EDT > Height-cm 175.26 cm 09/30/2024 denies pain. [place] Penelope tripp 09/30/2024 01:20:48 PM EDT > Oximetry 98 % 09/30/2024 denies pain. [place] Penelope tripp 09/30/2024 01:20:48 PM EDT > Blood pressure diastolic 72 mm Hg 09/30/2024 den ies pain. Penelope Faria 09/30/2024 01:20:48 PM EDT > Weight-kg 72.53 kg 09/30/2024 denies pain. [place] Penelope tripp 09/30/2024 01:20:48 PM EDT > Height 69 in 09/30/2024 denies pain. [place] Penelope tripp 09/30/2024 01:20:48 PM EDT > Blood pressure systolic 101 mm Hg 09/30/2024 fermin es pain. Penelope Faria 09/30/2024 01:20:48 PM EDT > Weight 159.9 lbs 09/30/2024 denies pain. [place] Penelope tripp 09/30/2024 01:20:48 PM EDT > BMI 23.61 kg/m2 09/30/2024 denies pain. [place] Penelope tripp 09/30/2024 01:20:48 PM EDT > Encounters Encounter Location Date Provider Diagnosis [address] [place], [place] [id number] 04/17/2024 [facility] Encounter for well ness examination Z00.00 ; Encounter for screening for HIV Z11.4 ; Screening for colon cancer Z12.11 ; Screening for prostate cancer Z12.5 ; Encounter for screening for cardiovascular disorders Z13.6 ; Type 2 diabetes mellitus with diabetic polyneuropathy E11.42 ; Dietary counseling Z71.3 ; Need for hepatitis C screening test Z11.59 ; Exercise counseling Z71.82 ; Overweight E66.3 and Body mass index [BMI] 26.0-26.9, adult Z68.26 [address] [place] [place] [id number] 05/01/2024 [facility] Closed fracture of multiple ribs of right side with routine healing, subsequent encounter S22.41XD ; Essential hypertension I10 ; Mild hyperlipidemia E78.5 ; Type 2 diabetes mellitus with diabetic polyneuropathy E11.42 ; Body mass index [BMI] 25.0-25.9, adult Z68.25 and Overweight E66.3 [address] [place], [place] [id number] 09/30/2024 Ned Browne Mild hyperlipidemi a E78.5 ; Essential hypertension I10 ; Amputation toe S98.139A and Osteomyelitis of right foot, unspecified type M86.9 [address] [place], [place] [id number] 04/17/2024 [facility] [address] [place], [place] [id number] 05/15/2024 [facility] Essential hyperten nevin I10 and Mild hyperlipidemia E78.5 [address] [place], [place] [id number] 09/26/2024 Ned Rizo Assessments Encounter Date Diagnosis (ICD Code) Assessment Notes Treatment Notes Treatment Clinical Notes Section Notes 04/17/2024 Encounter for screening for HIV (ICD-10 - Z11.4) Screening one-time 04/17/2024 Encounter for wellness examination (ICD-10 - Z00.00) Pt is here for wellness today. Overall health is okay. I advised to get baseline tests and pt is agreeable for that. I advised regular exercise and eating a balanced diet with focus on eating less fried and fatty foods and eating more fresh fruits and vegetable in an attempt to achieve and maintain a healthy BMI and PVU We discussed the importance of vaccination including covid shots and yearly flu shots and all questions were answered in detail today. Pt will see us back in 2 week to discuss results. 05/01/2024 Essential hypertension (ICD-10 - I10) HTN stable. Will continue current medications. Encouraged healthy diet and exercise. F/u 6 months & PRN 05/01/2024 Closed fracture of multiple ribs of right side with routine healing, subsequent encounter (ICD-10 - S22.41XD) Pt has closed fracture of 3 ribs and is doing well at this time. Refills sent for Ibuprofen 800mg and Cyclobenzaprine from ER visit. 05/15/2024 Essential hypertension (ICD-10 - I10) 09/30/2024 Mild hyperlipidemia (ICD-10 - E78.5) refilled 09/30/2024 Amputation toe (ICD-10 - S98.139A) Pts toe amputation secondary to osteomyelitis is being followed by surgeon and wound care pt has improved i encouraged to continue antibiotics as prescribed 05/15/2024 Mild hyperlipidemia (ICD-10 - E78.5) 09/30/2024 Essential hypertension (ICD-10 - I10) refill 05/01/2024 Mild hyperlipidemia (ICD-10 - E78.5) Slight elevation in Cholesterol, no medications at this time. Pt encouraged to continue healthy diet and exercise. F/U 6 months or PRN 04/17/2024 Screening for colon cancer (ICD-10 - Z12.11) Pt declines colon cancer testing at this time. Declines Cologuard and Colonoscopy Denies family hx of colon cancer 04/17/2024 Screening for prostate cancer (ICD-10 - Z12.5) 05/01/2024 Type 2 diabetes mellitus with diabetic polyneuropathy (ICD-10 - E11.42) DM stable. Will continue current medications. Encouraged healthy diet and exercise. F/u 6 months & PRN Continue following rachel Pierre C[facility] 09/30/2024 Osteomyelitis of right foot, unspecified type (ICD-10 - M86.9) Continue antibiotics as prescribed pt will follow the surgeon tomorrow 05/01/2024 Body mass index [BMI] 25.0-25.9, adult (ICD-10 - Z68.25) 04/17/2024 Encounter for screening for cardiovascular disorders (ICD-10 - Z13.6) Ordering baseline labs to establish current health status 04/17/2024 Type 2 diabetes mellitus with diabetic polyneuropathy (ICD-10 - E11.42) 05/01/2024 Overweight (ICD-10 - E66.3) 04/17/2024 Dietary counseling (ICD-10 - Z71.3) The patient was counseled on appropriate nutritional diet choices that should be made daily. It was encouraged that there should be 3 well balanced meals that occur daily with 1-2 healthy snacks that may occur in between those meals. Strong advisement was given to the patient to avoid all fast foods, fried foods, fatty foods, and greasy foods to alleviate any detrimental conditions in the future. Important to prioritize protein with adequate amounts of fruits and vegetables daily. 04/17/2024 Need for hepatitis C screening test (ICD-10 - Z11.59) One-time screening 04/17/2024 Exercise counseling (ICD-10 - Z71.82) The patient was encouraged to increase exercise weekly to at least 3-4 times per week for 30-45 minutes for each session. Exercise may include but is not limited to walking, jogging, running, resistance training, water aerobics and strength training. Benefits of increasing exercise regimens may include healthier lifestyle, stronger bone health, diminished aches and pain, and better metabolism. 04/17/2024 Overweight (ICD-10 - E66.3) 04/17/2024 Body mass index [BMI] 26.0-26.9, adult (ICD-10 - Z68.26) Plan Of Treatment No Information Insurance Providers Payer Name Payer Address Payer Phone Subscriber Number Group Number Insured Name Patient Relationship to Insured Coverage Start Date Coverage End Date [employer] [address] [place] [address] [id number] Jassi Rodriguez Self - patient is the insured 5 Medical (General) History Medical History History ICD Code Type 2 Diabetes Hyperlipidemia Surgical History Surgery Date(Month/Year[facility] foot sept[facility]24 Hospitalization History Reason Date(Month/Year) right foot september 2024
--- OUTSIDE RECORDS SUMMARY | 2024-10-29 17:16 | XMS_ITS | Patient Health Record ---
Author Organization [facility] in [place] Address [address] [place] [address] Care Team Providers Care Fare Register Repairer Name Role Phone None, Unknown or Primary Care Provider Unavailab Marii Quesada [phone] Results Component Value Reference Range Notes CRP Reviewed date:09/22/2024 12:58:38 PM Interpretation: Performing Lab: Notes/Report: [facility] , C Reactive Protein 4.29 <=0.50 mg/dL Performing Lab: see note ML - [facility] LB VANCOMYCIN TROUGH Reviewed date:09/23/2024 08:08:00 PM Interpretation: Performing Lab: Notes/Report: [facility] , Vancomycin Trough 18.3 5.0-20.0 ug/mL Performing Lab: see note ML - [facility] LB CRP Reviewed date:09/23/2024 08:08:00 PM Interpretation: Performing Lab: Notes/Report: [facility] , C Reactive Protein 3.19 <=0.50 mg/dL Performing Lab: see note ML - [facility] LB Fungus Stain (Not yet review ed by provider) Interpretation: Performing Lab: Notes/Report: Comment Proximal phalanx [facility] , Fungus Stain See Below For Report Fungus Stain Fungus Stain KALE/Calcofluor prepa ration: no fungus observed. Fungus Stain Performing Lab: see note LC - [facility] LB Fungus (Mycology) Culture (N ot yet reviewed by provider) Interpretation: Performing Lab: Notes/Report: Comment Proximal phalanx [facility] , Fungus (Mycology) Culture See Below For Report Fungus (Mycology) Culture Fungus (Mycology) Culture Culture Report: Fungus (Mycology) Culture Fungus (Mycology) Culture The specimen submitted for fungus culture has been received and Fungus (Mycology) Culture Fungus (Mycology) Culture culture has been initiated. Fungus (Mycology) Culture Fungus (Mycology) Culture Performed at: [facility] Fungus (Mycology) Culture Fungus (Mycology) Culture [address], [place] [phone] Fungus (Mycology) Culture Fungus (Mycology) Culture Toy Packer: Giovanny Vergara PhD, Phone: [phone] Fungus (Mycology) Culture Performing Lab: see note [facility] LB SEE REPORT - Cotton Bag Sewer Id information not found for OBX-specific senior interactive producer legend Gram Stain Result (Not yet r eviewed by provider) Interpretation: Performing Lab: Notes/Report: [facility] , Gram Stain Result See Below For Report Gr am Stain Result Gram Stain Result No white blood cells seen. Gram Stain Result Gram Stain Result Gram Stain Result Gram Stain Result No organisms seen Gram Stain Result Gram Stain Result Performed at: [facility] Gram Stain Result Gram Stain Result [address], [place] [phone] Gram Stain Result Gram Stain Result Toy Packer: Jorge Luis Vergara PhD, Phone: [phone] Gram Stain Result Performing Lab: see note SEE REPORT - Cotton Bag Sewer Id information not found for OBX-specific senior interactive producer legend [facility] LB Anaerobic Cult, Extended Inc ub (Not yet reviewed by provider) Interpretation: Performing Lab: Notes/Report: [facility] , Anaerobic Cult, Extended Incub See Below For Report Isolated O:BACFRA Anaerobic Cult, Extended Incub Anaerobic Cult, Extended Incub No aerobic or anaerobic growth in five days. Isolated O:BACFRA Anaerobic Cult, Extended Incub Anaerobic Cult, Extended Incub Organism: Bacteroides fragilis : Isolated O:BACFRA Anaerobic Cult, Extended Incub Anaerobic Cult, Extended Incub *ABNORMAL* Isolated O:BACFRA Anaerobic Cult, Extended Incub Anaerobic Cult, Extended Incub Recovered from broth only. Isolated O:BACFRA Anaerobic Cult, Extended Incub Anaerobic Cult, Extended Incub Studies at [facility] have confirmed the observations Isolated O:BACFRA Anaerobic Cult, Extended Incub Anaerobic Cult, Extended Incub of others who have demonstrated that Bacteroides Isolated O:BACFRA Anaerobic Cult, Extended Incub Anaerobic Cult, Extended Incub fragilis group are routinely susceptible to Cefoxitin, Isolated O:BACFRA Anaerobic Cult, Extended Incub Anaerobic Cult, Extended Incub Chloramphenicol, and Metronidazole and are usually Isolated O:BACFRA Anaerobic Cult, Extended Incub Anaerobic Cult, Extended Incub resistant to Penicillin, and variably in resistance to Isolated O:BACFRA Anaerobic Cult, Extended Incub Anaerobic Cult, Extended Incub Clindamycin. Isolated O:BACFRA Anaerobic Cult, Extended Incub Anaerobic Cult, Extended Incub Bacteroides fragilis Isolated O:BACFRA Anaerobic Cult, Extended Incub Anaerobic Cult, Extended Incub See Below For Report Isolated O:BACFRA Anaerobic Cult, Extended Incub Performing Lab: see note LC - [facility] LB Tissue Culture (Not yet revi ewed by provider) Interpretation: Performing Lab: Notes/Report: [facility] , Tissue Culture See Below For Report WILL FOLLOW Tissue Culture Tissue Culture WILL FOLLOW Tissue Culture Tissue Culture No growth after 18-2 4 hours. WILL FOLLOW Tissue Culture Tissue Culture WILL FOLLOW Tissue Culture Tissue Culture No growth in 36 - 48 hours. WILL FOLLOW Tissue Culture Tissue Culture WILL FOLLOW Tissue Culture Tissue Culture No growth in 56 - 72 hours. WILL FOLLOW Tissue Culture Performing Lab: see note LC - [facility] LB XR foot RT min 3V Reviewed date:09/23/2024 08:08:00 PM Interpretation: Performing Lab: Notes/Report: Source Facility: [place] [address] XRay Report Signed Patient: LAN RODRIGUEZ MR#: [id number] : 1960 Acct:[id number] Age/Sex: 64 / M ADM Date: 09/20/24 Loc: [place] 230-[address]: Josse Barajas M.D. Ordering Physician: Colotn Spears D.P.M. Date of Service: 09/23/24 Procedure(s): XR foot RT min 3V Accession Number(s): [id number] cc: Le Mares M.D.; Colton Spears D.P.M. [place] [address] Patient Name: LAN RODRIGUEZ MRN: [id number] date: 1960 Sex: M Assigned Patient Location: MS Current Patient Location: MS Accession/Order Number: [id number] Exam Date: 09/23/2024 10:54 Report Date: 09/23/2024 10:55 At the request of: COLTON SPEARS DPSaud Procedure: XR foot RT min 3V XR foot RT min 3V 09/23/2024 10:34 AM SIGNS AND SYMPTOMS: osteomyelitis right hallux Y PROTOCOL: Frontal, lateral, and oblique radiographs of the right foot COMPARISON: 09/20/2024 FINDINGS: There has been interval amputation of the great toe. There is a remote posttraumatic deformity of the fifth metatarsal. Vascular calcifications are present in the soft tissues. Degenerative changes are noted at the tarsometatarsal junctions. XR/XR foot RT min 3V IMPRESSION: Interval amputation of the great toe with a similar remote posttraumatic deformity of the fifth metatarsal. Impression dictated by: Don Blackwell M.D. 09/23/2024 10:55 AM Dictation Location: [place] [address] Electronically authenticated by: [id number] Y Date: 09/23/2024 10:55 Dictated By: Don Blackwell M.D. Signed By: 09/23/24 1058 DD/ 54 TD/TT: Mother Superior: [place] [address] XRay Report Signed Patient: RENETTA RODRIGUEZ MR#: [id number] : 1960 Acct:[id number] Age/Sex: 64 / M ADM Date: 09/20/24 Loc: [place] 230-[address]: Katlyn Barajas M.D. Ordering Physician: Colton Spears D.P.M. Date of Service: 09/23/24 Procedure(s): XR diane t RT min 3V Accession Number(s): [id number] cc: Le Mares; Colton Spears D.P.M. [address] [address] Patient Name: LAN RODRIGUEZ MRN: [id number] date: 1960 Sex: M Assigned Patient Loc ation: MS Current Patient Loca tion: MS Accession/Order Numb er: [id number] Exam Date: 09/23/2024 10:54 Report Date: 09/23/2024 10:55 At the request of: COLTON SPEARS DPSaud Procedure: XR foot R T min 3V XR foot RT min 3V 10:34 AM SIGNS AND SYMPTOMS: osteomyelitis right hallux Y PROTOCOL: Frontal, l ateral, and oblique radiographs of the right foot COMPARISON: 09/20/2024 FINDINGS: There has been inter benny amputation of the great toe. There is a remote posttraumatic deform ity of the fifth metatarsal. Vascular calcifications are present in the soft tissues. Degenerative changes are noted at the tarsometatarsal junctions. X R/XR foot RT min 3V IMPRESSION: Interval amputation of the great toe with a similar remote posttraumatic deformity of the fif th metatarsal. Impression dictated by: Don Blackwell M.D. 09/23/2024 10:55 AM Dictation Location: [place] [address] Electronically authenticated by: [id number] Y Date: 09/23/2024 10:55 Dictated By: Don Blackwell M.D. Signed By: 09/23/24 1058 DD/ 54 TD/TT: Mother Superior: Fungus (Mycology) Culture (N ot yet reviewed by provider) Interpretation: Performing Lab: Notes/Report: Comment Proximal phalanx [facility] , Fungus (Mycology) Culture See Below For Report Fungus (Mycology) Culture Fungus (Mycology) Culture Culture Report: Fungus (Mycology) Culture Fungus (Mycology) Culture The specimen submitted for fungus culture has been received and Fungus (Mycology) Culture Fungus (Mycology) Culture culture has been initiated. Fungus (Myco logy) Culture Fungus (Mycology) Culture [facility] Fungus (Mycology) Culture Fungus (Mycology) Culture [address], [place] [phone] Fungus (Mycology) Culture Fungus (Mycology) Culture Toy Packer: Giovanny Vergara PhD, Phone: [phone] Fungus (Mycology) Culture Performing Lab: see note - [facility] LB SEE REPORT - Cotton Bag Sewer Id information not found for OBX-specific senior interactive producer legend Acid Fast Culture (Not yet r eviewed by provider) Interpretation: Performing Lab: Notes/Report: Comment Proximal phalanx [facility] , Acid Fast Culture See Below For Report Specimen has been received and testing has been initiated. Acid Fast Culture Acid Fast Culture Performed at: - [facility] Specimen has been received and testing has been initiated. Acid Fast Culture Acid Fast Culture [address], [place] [phone] Specimen has been received and testing has been initiated. Acid Fast Culture Acid Fast Culture Toy Packer: Jorge Luis Vergara PhD, Phone: [phone] Specimen has been received and testing has been initiated. Acid Fast Culture Performing Lab: see note SEE REPORT - Cotton Bag Sewer Id information not found for OBX-specific senior interactive producer legend LC - [facility] LB Acid Fast Smear (Not yet rev iewed by provider) Interpretation: Performing Lab: Notes/Report: Comment Proximal phalanx [facility] , Acid Fast Smear See Below For Report Negative Acid Fast Smear Performing Lab: see note LC - [facility] LB AFB Specimen Processing (Not yet reviewed by provider) Interpretation: Performing Lab: Notes/Report: Comment Proximal phalanx [facility] , AFB Specimen Processing See Below For Report AFB Specimen Processing AFB Specimen Processing Tissue Grinding AFB Specimen Processing Performing Lab: see note LC - [facility] LB ECG 12 lead Reviewed date:09/22/2024 07:01:41 PM Interpretation: Performing Lab: Notes/Report: Source Facility: [place] [address] Electrocardiograph Report Draft Patient: LAN RODRIGUEZ MR#: [id number] : 1960 Acct:[id number] Age/Sex: 64 / M ADM Date: 09/20/24 Loc: [place] 230-[address]: Josse Barajas M.D. Ordering Physician: Josse Barajas M.D. Date of Service: 09/22/24 Procedure(s): ECG 12 lead Accession Number(s): [id number] cc: [facility] Test Date: 2024-09-22 Pat Name: LAN RODRIGUEZ Department: Room: 230 Gender: Male Termite Treater: : 1960 Requested By: JOSSE BARAJAS Order Number: [id number] Reading MD: Measurements Intervals [place] Rate: 76 P: 55 PA: 146 QRS: 23 QRSD: 76 T: 47 QT: 368 QTc: 415 Interpretive Statements SINUS RHYTHM No previous ECG available for comparison Dictated By: Manju Zuñiga Signed By: DD/ 1440 TD/TT: Mother Superior: The [address] [address] Electrocardiograph Report Draft Patient: RENETTA RODRIGUEZ MR#: [id number] : 1960 Acct:[id number] Age/Sex: 64 / M ADM Date: 09/20/24 Loc: MS 230- Attending Dr: Katlyn Barajas M.D. Ordering Physician: Josse Barajas M.D. Date of Service: 09/22/24 Procedure(s): ECG 12 lead Accession Number(s): [id number] cc: [facility] Test Date: 2024-09-22 Pat Name: LAN RODRIGUEZ Department: 53 Room: [facility] Gender: Male Termite Treater: : 1960 Requ ested By: JOSSE BARAJAS Order Number: [id number] Reading MD: Measurements Intervals [place] Rate: 76 P: 55 PA: 146 QRS: 23 QRSD: 76 T: 47 QT: 368 QTc: 415 Interpretive Statements SINUS RHYTHM No previous ECG avai lable for comparison Dictated By: Manju Zuñiga Signed By: DD/ 1440 TD/TT: Mother Superior: Reason For Referral No Information Problems Problem Type SNOMED Code ICD Code Onset Dates Problem Status W/U Status Risk Notes Problem Diabetic neuropathy (119198513) Diabetic neuropathy (E11.40) Active confirmed Problem Leukocytosis (016445118) Leukocytosis (D72.829) Active confirmed Problem Protein calorie malnutrition (508815317) Protein calorie malnutrition (E46) Active confirmed Problem Dry gangrene (83577010) Dry gangrene (I96) Active confirmed Problem Osteomyelitis (93012410) Osteomyelitis of toe of right foot (M86.9) Active confirmed Encounters Encounter Location Date Provider Diagnosis [facility] Medicine [address] [place] [address] 03/26/2024 Marii Templeton Plan Of Treatment Pending Test Test Name Order Date AFB Specimen Processing 09/23/2024 Acid Fast Smear 09/23/2024 Acid Fast Culture 09/23/2024 Fungus Stain 09/23/2024 Fungus (Mycology) Culture 09/23/2024 Fungus (Mycology) Culture 09/23/2024 Gram Stain Result 09/23/2024 Anaerobic Cult, Extended Incub Tissue Culture 09/23/2024 Insurance Providers Payer Name Payer Address Payer Phone Subscriber Number Group Number Insured Name Patient Relationship to Insured Coverage Start Date Coverage End Date [place]IC[place] [address] [place] [address] [phone] [id number] Lan Rodriguez Self - patient is the insured
--- OUTSIDE RECORDS SUMMARY | 2024-10-29 17:17 | XMS_ITS | Encounter Summary ---
Author Organization [employer] tem Address [facility] [id number] [address] [place] [address] Care Team Providers Care Supervisor Air Conditioning Installer Name Role Phone No Pcp, No Pcp Primary Care Provider Unavailabl e Encounter Details Date Type Department Care Team (Latest Contact Info) Description 10/17/2024 Travel Social History Tobacco Use Types Packs/Day [...] on filedocumented in this encounter Care Teams Supervisor Air Conditioning Installer Relationship Specialty Start Date End Date No Pcp, [place] [address] PCP - General Family Medicine 04/11/24 documented as of this encounter
--- OUTSIDE RECORDS SUMMARY | 2024-10-29 17:17 | XMS_ITS | Encounter Summary ---
Author Organization [employer] tem Address [facility] [id number] [address] [place] [address] Care Team Providers Care Family Court Registrar Name Role Phone No Pcp, No Pcp Primary Care Provider Unavailabl e Encounter Details Date Type Department Care Team (Latest Contact Info) Description 10/23/2024 Travel Social History Tobacco Use Types Packs/Day [...] on filedocumented in this encounter Care Teams Family Court Registrar Relationship Specialty Start Date End Date No Pcp, [place] [address] PCP - General Family Medicine 04/11/24 documented as of this encounter
== END 2024-10-29 17:10 | disposition home or self-care (01) ==
LOC: LAB 17:09
PROVIDERS: PCP Family Medicine; Visit Provider Podiatrist Foot & Ankle Surgery
DX: M86.171 Other acute osteomyelitis, right ankle and foot (principal)
CPT/HCPCS: 87070; 87075; 87205

== ENCOUNTER 2024-10-31 09:34 | Outpatient (OUT) | payer MEDICARE, SELFPAY ==
--- OUTSIDE RECORDS SUMMARY | 2024-03-26 06:01 | XMS_ITS ---
Author Organization The [facility] in [place] Address [address] [place] [address] Care Team Providers Care Manager Placement Name Role Phone None, Unknown or Primary Care Provider Unavailab Marii Quesada Unavailable [phone] REASON FOR VISIT needs yearly appointment Encounters Encounter Location Date Provider Diagnosis [facility] [address] [place] [address] 03/26/2024 Marii Templeton Plan Of Treatment No Information Progress Notes * Nu RODRIGUZE HDOB:1959 (64 yo M)Acc No.[id number]:03/26/2024 Patient: Romy KNIGHTjeanne Kasie :1960 A ge:64 Y S ex:Male Address:[address] [place] [address], [phone] * true * Date: Generated for Printi ng/Faxing/eTransmitting on: 0 10/31/2024 09:39 AM EDT
--- OUTSIDE RECORDS SUMMARY | 2024-10-17 10:16 | XMS_ITS | Encounter Summary ---
Author Organization [facility] tem Address [id number] [address] [place] [address] Care Team Providers Care Teller Vault Name Role Phone No Pcp, No Pcp Primary Care Provider Unavailabl e Reason for Visit * Auth/Cert Specialty Diagnoses / Procedures Referred By Conthumaira t Referred To Contact Diagnoses PAD (peripheral artery disease) Gangrene (CMS-HCC) Critical limb ischemia of right lower extremity with gangrene (CMS-HCC) pad critical limb ischemia Procedures lower ext angio Jamil Culver MD [address], [address] [address] Phone: tel: fax: Referral ID Status Reason Start Date Expiration Date Visits Re quested Visits Authorized [id number] 1 1 Encounter Details Date Type Department Care Team (Latest Contact Info) Description 10/17/2024 10:16 AM EDT - 10/17/2024 4:50 PM EDT Hospital Encounter [facility] - [facility] [address] [place] [address] Jamil Culver MD [address], [address] [address] PAD (peripheral artery disease); Gangrene (CMS-HCC); Critical limb ischemia of right lower extremity with gangrene (CMS-HCC) Discharge Disposition: Home Social History Tobacco Use Types Packs/Day Years [...] Sign Reading Time Taken Comments Blood Pressure 131/83 10/17/2024 4:00 PM EDT Pulse 84 10/17/2024 4:00 PM EDT Temperature - - Respiratory Rate 12 10/17/2024 4:00 PM EDT Oxygen Saturation 97% 10/17/2024 4:00 PM EDT Inhaled Oxygen Concentration - - Weight 72.6 kg (160 lb) 10/17/2024 10:42 AM EDT Height - - Body Mass Index 23.63 09/25/2024 10:48 AM EDT documented in this encounter Discharge Instructions * Discharge Instructions* Swetha Vidal RN - 10/17/2024 4:00 PM EDT FEMORAL ACCESS: RIGHT/LEFT GROIN Call your VASCULAR DOCTOR if you have any of the following symptoms or health problems after you leave the hospital: Sudden pain, swelling, and/or bright red bleeding at puncture site(s). If swelling and/or bright read bleeding occurs: STOP what you are doing, lie down and elevate your LEG. Apply firm pressure with1-2 fingers above the puncture site for approximately 10 minutes. Once the bleeding has stopped, gently clean the area and cover with a Band-Aid (remove after 24 hours) and call your vascular doctor to inform them of bleeding. IF YOU ARE UNABLE TO STOP THE BLEEDING OR APPLY ADEQUATE PRESSURE, CALL 9-1-1 IMMEDIATELY. Persistent tenderness/pain or swelling, discoloration; numbness/tingling, coolness or pain in the extremity when walking. MILD bruising/discoloration and/or tenderness is common during the healing process. Signs of infection: swelling, warmth around the wound, rash/redness, drainage, or fever greater than or equal to 100.4??F and/or chills Call 9--1 if you have signs or symptoms of a stroke, chest pain/angina, difficulty breathing, you become very pale, acevedo/blue or if you become confused and cannot be easily awakened ACTIVITY POST PROCEDURE: No driving for 24 hours No alcohol for 24 hours You may shower after 24 hours. You should not take a bath or swim until the site is healed; about 1week No vigorous activity/exercise or straining for 2 days (48 hours) No heavy lifting - nothing greater than 2-5 pounds (approximately a ?? gallon of milk for 2 days (48 hours) No stooping or bending at the knees for 2 days (48 hours) You may return to work as directed by your VASCULAR PHYSICIAN. Please call the office for instructions. PUNCTURE SITE CARE: Keep site clean and dry for 24 hours Apply pressure to the femoral access site if you need to cough, sneeze, laugh, or while having a bowel movement for 2 days (48 hours) Remove dressing on puncture site after 24 hours, at which time you may shower. Gently clean the area with soap and water; dry well and leave open to air. Do not apply powders, ointments, or lotions to the puncture site area until the wound has fully healed. Report any signs or symptoms of infectionto your physician. CLOSURE DEVICE INSTRUCTIONS: MYNX/PERCLOSE/ANGIOSEAL/MANTA/OTHER Normal Observations: It is normal to feel a small lump, about the size of a pea, and/or note MILD tenderness in the groin area. Some bruising or discomfort is common during the healing process. Carry the Patient Information Card in your wallet for 30 days, 60 days, 90 days, other Please see attached closure device pamphlet for additional information Sedation Instructions: You were given medicine today to decrease anxiety, pain, or to make you drowsy during a medical procedure or test. Although you are now alert and ready to go home, some of the effects of the medicinemay last for several hours. You must have someone with you to drive home. You are advised to go directly home from the hospital. You may be groggy, dizzy, or less alert for the rest of the day. Common side effects include: drowsiness, dizziness, nausea, unsteady gait, and/or blurry vision. Because of these side effects, you should not work, drive, operate machines, or make important decisions for the next 24 hours. Also, do not drink alcohol, take tranquilizers, sleeping medication, orany non-prescription drugs for 24 hours; unless ordered by your physician. You are at a higher risk of falling for at least 24 hours after receiving sedation medications. Forthat reason: Take extra care when you get up Do not change positions quickly Do not claros when you need to go to the bathroom or to answer the phone Ask for help if you feel unsteady when you try to walk Wear shoes with non-slip soles and low heels Diet: You may feel sick to your stomach and/or vomit after receiving sedation medications. Start with a light diet and/or clear liquid diet, which include things that are easy to swallow. If you are not able to keep anything down for 24 hours or more, please give your physician's office a call or go to the nearest emergency center. Medications: A detailed medication list is included with your discharge instructions. Please refer to that in regards to medications that were held, continued and/or discontinued. CALL YOUR DOCTOR, 911, OR GO TO THE NEAREST HOSPITAL EMERGENCY ROOM RIGHT AWAY: If you have difficulty breathing If your skin color is very pale or valencia/blue If you become confused or cannot be easily awakened Feeling faint or have a very bad headache Additional Instructions: If you smoke or have quit in the last 12 months: Tobacco is not food for your heart or lungs. Smoking increases your chances of getting a lung infection and makes shortness of breath worse. Tobacco causes your blood vessels to become smaller so your heart has to work harder to pump blood. For further assistance with quitting, you can contact [facility] at [phone] ( ), or consult your physician. *Discharge instructions were reviewed with patient and/or family and they verbalize understanding, including: follow-ups, medications, activity restrictions, and what to do for emergency. Opportunityhas been given for patient and/or family to voice any questions or concerns. documented in this encounter Medications at Time of Discharge aspirin 81 mg chewable tablet Chew 1 tablet (81 mg total) and swallow in the morning. 90 tablet 4 09/25/2024 ciprofloxacin HCl (CIPRO) 500 mg tablet Take 1 tablet (500 mg total) by mouth in the morning and 1 tablet (500 mg total) before bedtime. 09/23/2024 cyclobenzaprine (FLEXERIL) 10 mg tabletIndications :Closed fracture of multiple ribs of right side, initial encounter Take 1 tablet (10 mg total) by mouth 2 (two) times a day as needed for muscle spasms. 10 tablet 04/11/2024 dapagliflozin propanediol (FARXIGA) 10 mg tablet Take 1 tablet (10 mg total) by mouth in the morning. 09/10/2023 doxycycline (MONODOX) 100 mg capsule Take 1 capsule (100 mg total) by mouth in the morning and 1 capsule (100 mg total) before bedtime. 09/23/2024 insulin aspart, niacinamide, 100 unit/mL (3 mL) insulin pen 01/21/2024 insulin glargine (LANTUS) 100 unit/mL injection Inject 0.55 mL (55 Units total) under the skin nightly. lidocaine (LIDODERM) 5 %Indications:Clos ed fracture of multiple ribs of right side, initial encounter Place 1 patch on the skin daily. Remove & Discard patch within 12 hours or as directed by 30 patch 04/11/2024 lisinopriL (PRINIVIL,ZESTRIL ) 5 mg tablet Take 1 tablet (5 mg total) by mouth in the morning. metFORMIN XR (GLUCOPHAGE XR) 500 mg 24 hr tablet Take 1 tablet (500 mg total) by mouth daily with breakfast. 09/10/2023 OXcarbazepine (TRILEPTAL) 150 mg tablet Take 1 tablet (150 mg total) by mouth in the morning and 1 tablet (150 mg total) before bedtime. 04/07/2024 rosuvastatin (CRESTOR) 40 mg tablet Take 1 tablet (40 mg total) by mouth in the morning. semaglutide (OZEMPIC SUBQ) Inject under the skin See Admin Instructions. sodium chloride 0.9 % injection 10 mL by intravenous push route as needed. 09/23/2016 documented as of this encounter H&P Notes * Mohamed F Palomo, MD - 10/17/2024 1:52 PM EDT HISTORY AND PHYSICAL INTERVAL NOTE: Jassi Rodriguez [id number] H&P reviewed. The patient was examined and there are no changes to the H&P. Jamil Culver MD Source Note - Jamil Culver MD - 09/25/2024 11:00 AM [...] Diagnosis Date Diabetes mellitus type 2, controlled ([facility]) Hyperlipidemia Hypertension Past Surgical History: No past [...] ischemia of right lower extremity with gangrene ([facility]) - Primary Current Assessment & Plan He has the duplex ultrasound that shows tibial occlusive disease in the right lower extremity. His foot looks chronically ischemic. Will get PVR and plan to do right lower extremity angiogram and intervention. Jassi was seen today for gangrene, pad. per dr. perry requesting pt to be seen . Diagnoses and all orders for this visit: Critical limb ischemia of right lower extremity with gangrene ([facility]) PAD (peripheral artery disease) - [facility] - [place], [place] Gangrene ([facility]) - [facility] - [place], [place] Jamil Culver MD, RADHA, RPVI, FSVS, [...] documented in this encounter Miscellaneous Notes * Perioperative Nursing Note - Swetha Vidal RN - 10/17/2024 4:40 PM EDT Patient has ambulated in hallway with no pain. He has been voiding and tolerating oral liquids. Left groin cath site remains soft, shows no signs of active bleeding or hematoma. Dressing is CDI. Discharge instructions were reviewed with patient and family with understanding verbalized. * Op Note - Jamil Culver MD - 10/17/2024 12:01 PM EDT Images from the original note were not included. Vascular Invasive Height: 175.3 cm (5' 9 ) Weight: 72.6 kg (160 lb) Blood Pressure: 151/90 Heart Rate: 81 Date of Study: 10/17/24 Ordering Provider: Jamil Culver MD Clinical Indications: PAD (peripheral artery disease) [I73.9 (ICD-10-CM)], Gangrene (CMS-HCC) [I96 (ICD-10-CM)], Critical limb ischemia of right lower extremity with gangrene (CMS-HCC) [I70.261 (ICD-10-CM)] Performing Physician Performing Staff Primary: Jamil Culver MD Invasive Nurse: Brii Wheatley RN Scrub Person: Joselin Gongora RDCS Documenter: SARMAD Cisse Documenter: Ceasar Walsh RN Patient Information Patient Name Jassi Rodriguez Legal Sex Male Procedures lower ext angio Conclusion Recommendations: No evidence of significant arterial occlusive disease. Continue wound care and follow up with Podiatry. Pre Procedure Diagnosis pad critical limb ischemia Post Procedure Diagnosis Assist Devices Assist Devices Procedure Details Patient Name: Jassi Rodriguez Medical Record: [id number] Date of Operation: 10/17/2024 Preoperative Diagnosis: Right lower extremity critical limb ischemia with tissue loss Postoperative Diagnosis: Same Procedure: 1. Ultrasound-guided access of the left common femoral artery. 2. Placement of catheter in the abdominal aorta aortogram and pelvic angiogram 3. Selective right lower extremity angiogram with placement of catheter in the right common femoral artery Surgeon: Jamil Culver MD Anesthesia: Conscious sedation done under my supervision Estimated Blood Loss: less than 50 mL Complications: None; patient tolerated the procedure well. Implants: None Specimens: None Disposition: PACU - hemodynamically stable. Findings: No significant stenosis. Has heavily calcified tibials however there was no significant luminal stenosis. History: This is a 64 y.o. male Jassi Rodriguez with right lower extremity critical limb ischemia with tissue loss status post great toe amputation sent to us for revascularization. He had none calcified tibial vessels and evidence of small-vessel disease in noninvasive testing. Operative Details: The patient was seen in the pre-procedure holding area. The benefits, alternatives and risks of the procedure were explained to the patient. Consent was obtained and there was no site to basil. The patient was then taken to the medical laboratory scientist and transferred to the table. Bilateral groins were prepped and the patient was draped. A time out was performed. After the patients Cardiopulmonary status was assessed and he was deemed a candidate for moderate sedation they received 1 mg of versed and 50 mcg of fentanyl. After using ultrasound guidance to identify the left common femoral artery, 1% lidocaine was infiltrated into the skin and subcutaneous tissues. A micropuncture needle was used to access the artery then the microwire was advanced and confirmed with fluoroscopy. The microsheath was then placed over the wire in a seldinger fashion. A j-wire was advanced into the aorta under fluoroscopic guidance and a 4 FR sheath was advanced over the wire. This was flushed with heparinized saline. A 4 FR Omniflush catheter was then positioned above the renal arteriesbetween the 1st and 2nd lumbar vertebrae. The power injector was connected and subtraction angiography of the aorta, iliac arteries and right lower extremities was performed in AP and oblique projections to optimize image quality and identification of vessel branch points. Findings are detailed above. At the completion of the procedure, a sheath angiogram was performed. Mynx was used to obtain hemostasis. Sterile dressing was placed. Patient tolerated the procedure well. Complications No complications were associated with this study. Documented by Jamil Culver MD - 10/17/2024 2:19 PM Measurements Cath EF Calculated: Implants Name ID Temporary Type Supply No information to display Vascular Access Sheath inserted in the left femoral artery. Sheath insertion performed by Information Security Manager. Medications Time Date Event Details User 12:15 PM 10/17/24 fentaNYL (SUBLIMAZE) injection Ordered and Given 50 mcg Given Rate: 0 Route: intravenous KB 12:16 PM 10/17/24 midazolam (PF) (VERSED) injection Ordered and Given 1 mg Given Rate: 0 Route: intravenous KB 12:16 PM 10/17/24 lidocaine PF (XYLOCAINE) 10 mg/mL (1 %) injection Ordered and Given 10 mL Given Rate: 0 Route: intradermal MO 12:32 PM 10/17/24 iodixanoL (VISIPAQUE) 320 mg iodine/mL injection Ordered and Given 30 mL Given Rate: 0 Route: intra-arterial MO Moderate sedation total time Under my direct supervision, intravenous moderate sedation was administered during the course of this procedure with continuous monitoring of hemodynamic parameters. Moderate sedation started at 12:15 PM and total time of moderate sedation was 16 minutes. Case Tracking Events Event Time In Moderate Sedation Start 10/17/24 1215 Moderate Sedation Stop 10/17/24 1231 Radiation Dose Tracking Panel Fluoroscopy (mGy) Fluoro Time (min) DAP (mGy/cm2) Physician Panel 1 16.000 1.6 6533.000 Jamil Culver MD PRESSURES AIR REST Systolic (mmHg) Diastolic (mmHg) Mean (mmHg) A Wave (mmHg) V Wave (mmHg) DAP (mmHg) Ao 0 0 0 Performing Department [facility] - Cardiac Cath [address] [facility] [place] [address] documented in this encounter Plan of Treatment Not on file documented as of this encounter Goals Goal Patient Goal Type Associated Problems Recent Progress Patient-Stated? Author dc to home General Yes Camille Celaya, RN Note: Evaluation of progress towards goal: Patients goal is to discharge to home. documented as of this encounter Procedures Procedure Name Priority Date/Time Associated Diagnosis Comments VASCULAR INVASIVE Routine 10/17/2024 12: 31 PM EDT PAD (peripheral artery disease) Gangrene ([facility]) Critical limb ischemia of right lower extremity with gangrene (CMS-HCC) PORTABLE GLUCOSE Routine 10/17/2024 10:4 9 AM EDT POCT BUN, CREAT Routine 10/17/2024 10:49 AM EDT documented in this encounter Results * VASCULAR INVASIVE (10/17/2024 12:31 PM EDT) Anatomical Region Laterality Modality X-Ray Angiograph y Narrative 10/17/2024 2:19 PM EDT Recommendations: No evidence of significant arterial occlusive disease. Continue wound care and follow up with Podiatry. Procedure Details Patient Name: Jassi Rodriguez Medical Record: [id number] Date of Operation: 10/17/2024 Preoperative Diagnosis: Right lower extremity critical limb ischemia with tissue loss Postoperative Diagnosis: Same Procedure: 1. Ultrasound-guided access of the left common femoral artery. 2. Placement of catheter in the abdominal aorta aortogram and pelvic angiogram 3. Selective right lower extremity angiogram with placement of catheter in the right common femoral artery Surgeon: Jamil Culver MD Anesthesia: Conscious sedation done under my supervision Estimated Blood Loss: less than 50 mL Complications: None; patient tolerated the procedure well. Implants: None Specimens: None Disposition: PACU - hemodynamically stable. Findings: No significant stenosis. Has heavily calcified tibials however there was no significant luminal stenosis. History: This is a 64 y.o. male Jassi Rodriguez with right lower extremity critical limb ischemia with tissue loss status post great toe amputation sent to us for revascularization. He had none calcified tibial vessels and evidence of small-vessel disease in noninvasive testing. Operative Details: The patient was seen in the pre-procedure holding area. The benefits, alternatives and risks of the procedure were explained to the patient. Consent was obtained and there was no site to basil. The patient was then taken to the medical laboratory scientist and transferred to the table. Bilateral groins were prepped and the patient was draped. A time out was performed. After the patients Cardiopulmonary status was assessed and he was deemed a candidate for moderate sedation they received 1 mg of versed and 50 mcg of fentanyl. After using ultrasound guidance to identify the left common femoral artery, 1% lidocaine was infiltrated into the skin and subcutaneous tissues. A micropuncture needle was used to access the artery then the microwire was advanced and confirmed with fluoroscopy. The microsheath was then placed over the wire in a seldinger fashion. A j-wire was advanced into the aorta under fluoroscopic guidance and a 4 FR sheath was advanced over the wire. This was flushed with heparinized saline. A 4 FR Omniflush catheter was then positioned above the renal arteries between the 1st and 2nd lumbar vertebrae. The power injector was connected and subtraction angiography of the aorta, iliac arteries and right lower extremities was performed in AP and oblique projections to optimize image quality and identification of vessel branch points. Findings are detailed above. At the completion of the procedure, a sheath angiogram was performed. Mynx was used to obtain hemostasis. Sterile dressing was placed. Patient tolerated the procedure well. us Jamil Culver MD CV CARDIAC CATH ORDERABLES Fi nal Result * Portable Glucose Istat (10/17/2024 10:49 AM EDT) POC Glucose 89 65 - 99 mg/dL 10/20/2024 9:02 AM EDT [facility] 10/17/2024 10:4 9 AM EDT 10/20/2024 9:02 AM EDT us Jamil Culver MD POINT OF CARE TEST ORDERABLES Final Result [facility] [address] [place] [address], * POCT BUN, creat (10/17/2024 10:49 AM EDT) POC BUN 17 6 - 27 mg/dL 10/20/2024 9:02 AM EDT [facility] POC Creatinine 1.1 0.7 - 1.2 mg/dL 10/20/2024 9:02 AM EDT [facility] POC EGFR Non-Race Dependent 75 >=60 ml/min/1.7 3sq.m 10/20/2024 9:02 AM EDT [facility] Comment: Reported eGFR is based on the CKD-EPI 2020 equation that does not use a race coefficient. 10/17/2024 10:4 9 AM EDT 10/20/2024 9:02 AM EDT us Jamil Culver MD POINT OF CARE TEST ORDERABLES Final Result [facility] [address] [place] [place] [address], documented in this encounter Visit Diagnoses Diagnosis PAD (peripheral artery disease) Unspecified peripheral vascular disease Gangrene (CMS-HCC) Gangrene Critical limb ischemia of right lower extremity with gangrene (CMS-HCC) PAD (peripheral artery disease) Unspecified peripheral vascular disease Gangrene (CMS-HCC) Gangrene Critical limb ischemia of right lower extremity with gangrene (CMS-HCC) documented in this encounter Admitting Diagnoses Diagnosis Critical limb ischemia of right lower extremity with gangrene (CMS-HCC) PAD (peripheral artery disease) Unspecified peripheral vascular disease Gangrene (CMS-HCC) Gangrene documented in this encounter Administered Medications Inactive Administered Medications - up to 3 most recent administrations Medication Order MAR Action Action Date Dose Rate Site lactated ringers infusion 75 mL/hr, intravenous, Continuous, Starting on Sun10/17/24 at 1045, For 1 day, Pre-op documented in this encounter Active and Recently Administered Medications Times are shown in EDT. Continuous Medication Order 10/15/2024 10/16/2024 10/17/2024 lactated ringers infusion 75 mL/hr, intravenous, Continuous, Starting on Sun10/17/24 at 1045, For 1 day, Pre-op 1045 (Due) PRN Medication Order 10/15/2024 10/16/2024 10/17/2024 fentaNYL (SUBLIMAZE) injection (CANCELED) Code/trauma/sedation medication, Starting on Sun10/17/24 at 1215, Intra-Procedure (CV) 1215 (Given - Provid er: Brii Wheatley RN) iodixanoL (VISIPAQUE) 320 mg iodine/mL injection (CANCELED) Code/trauma/sedation medication, Starting on Sun10/17/24 at 1232, Intra-Procedure (CV) 1232 (Given - Provid er: Jamil Culver MD) lidocaine PF (XYLOCAINE) 10 mg/mL (1 %) injection (CANCELED) Code/trauma/sedation medication, Starting on Sun10/17/24 at 1216, Intra-Procedure (CV) 1216 (Given - Provid er: Jamil Culver MD) midazolam (PF) (VERSED) injection (CANCELED) Code/trauma/sedation medication, Starting on Sun10/17/24 at 1216, Intra-Procedure (CV) 1216 (Given - Provid er: Brii Wheatley RN) documented in this encounter Care Teams Teller Vault Relationship Specialty Start Date End Date No Pcp, [place] [address] PCP - General Family Medicine 04/11/24 documented as of this encounter
--- OUTSIDE RECORDS SUMMARY | 2024-10-17 12:00 | XMS_ITS | Encounter Summary ---
Author Organization [facility] tem Address [facility] [id number] [address] [place] [address] Care Team Providers Care Oncology Consultant Name Role Phone No Pcp, No Pcp Primary Care Provider Unavailabl e Reason for Visit * Auth/Cert Specialty Diagnoses / Procedures Referred By Contac t Referred To Contact Diagnoses PAD (peripheral artery disease) Gangrene ([facility]) Critical limb ischemia of right lower extremity with gangrene ([facility]) pad critical limb ischemia Procedures lower ext angio Jamil Culver MD [address], [address] [address] Phone: tel: fax: Referral ID Status Reason Start Date Expiration Date Visits Re quested Visits Authorized [id number] 1 1 Encounter Details Date Type Department Care Team (Late st Contact Info) Description 10/17/2024 12:00 PM EDT - 10/17/2024 12:45 PM EDT Surgery [facility] - Cardiac Cath [address] [place] [id number] Jamil Culver MD [address], [address] [address] lower ext angio Surgery Details Date/Time Status [...] further assistance with quitting, you can contact [facility] at [phone] ( [phone] or consult your physician. *Discharge [...] AND PHYSICAL INTERVAL NOTE: Jassi Rodriguez [id number] H&P reviewed. The patient was examined and [...] Diagnosis Date Diabetes mellitus type 2, controlled ([facility]) Hyperlipidemia Hypertension Past Surgical History: No past [...] ischemia of right lower extremity with gangrene ([facility]) - Primary Current Assessment & Plan He [...] ischemia of right lower extremity with gangrene ([facility]) PAD (peripheral artery disease) - [facility] - [place], [place] Gangrene ([facility]) - [facility] [place] Jamil Culver MD, RADHA, RPVI, FSVS, [...] Details Patient Name: Jassi Rodriguez Medical Record: [id number] Date of Operation: 10/17/2024 Preoperative Diagnosis: Right [...] The patient was then taken to the recyclable products sorter and transferred to the table. Bilateral groins [...] left femoral artery. Sheath insertion performed by Retail Store Assistant. Medications Time Date Event Details User 12:15 [...] (mmHg) Ao 0 0 0 Performing Department [facility] - Cardiac Cath [address] [facility] [place] [address] documented in this encounter Plan of Treatment [...] Details Patient Name: Jassi Rodriguez Medical Record: [id number] Date of Operation: 10/17/2024 Preoperative Diagnosis: Right [...] The patient was then taken to the recyclable products sorter and transferred to the table. Bilateral groins [...] Portable Glucose Istat (10/17/2024 10:49 AM EDT) [facility] POC Glucose 89 65 - 99 mg/dL 10/20/2024 9:02 AM EDT [facility] 10/17/2024 10:4 9 AM EDT 10/20/2024 9:02 AM EDT Jamil Culver MD POINT OF CARE TEST ORDERABLES Final Result [facility] [address] [place] [address], [place] * POCT BUN, creat (10/17/2024 10:49 AM EDT) Pathologist [facility] POC BUN 17 6 - 27 mg/dL 10/20/2024 9:02 AM EDT [facility] POC Creatinine 1.1 0.7 - 1.2 mg/dL 10/20/2024 9:02 AM EDT [facility] POC EGFR Non-Race Dependent 75 >=60 ml/min/1.7 3sq.m 10/20/2024 9:02 AM EDT [facility] Comment: Reported eGFR is based on the CKD-EPI 2020 equation that does not use a race coefficient. 10/17/2024 10:4 9 AM EDT 10/20/2024 9:02 AM EDT us Jamil Culver MD POINT OF CARE TEST ORDERABLES Final Result [facility] [address] [place] [address], documented in this encounter Visit Diagnoses Diagnosis [...] RN) documented in this encounter Care Teams Oncology Consultant Relationship Specialty Start Date End Date No Pcp, [place] [address] PCP - General Family Medicine 04/11/24 documented as of this encounter
--- OUTSIDE RECORDS SUMMARY | 2024-10-23 10:50 | XMS_ITS | Encounter Summary ---
Author Organization [employer] Address [id number] [address] [place] [address] Care Team Providers Care Controller Coal [employer] Ore Name Role Phone No Pcp, No Pcp Primary Care Provider Unavailabl e Reason for Visit * Reason Comments Critical limb ischemia of right lower ex tremity with gangre rt leg angiogram 10-17-24 Encounter Details Date Type Department Care Team (Late st Contact Info) Description 10/23/2024 10:50 AM EDT Office Visit [facility] [place] [address] [place] [address] Jamil Culver MD [address], [address] [address] Critical limb ischemia of right lower extremity [...] 2, controlled ([facility]) Hyperlipidemia Hypertension Past Surgical History: Past Surgical History: Procedure Laterality Date lower ext angio Right 10/17/2024 Performed by Jamil Culver MD at [facility] CARDIAC CATH LABS Social and Family [...] Primary documented in this encounter Care Teams Controller Coal Or Ore Relationship Specialty Start Date End Date No Pcp, [place] [address] PCP - General Family Medicine 04/11/24 documented as of this encounter
--- OUTSIDE RECORDS SUMMARY | 2024-10-30 06:30 | XMS_ITS ---
Author Organization [facility] vices Address [address] [place], [place] [address] Care Team Providers Care Ammonia Worker Name Role Phone Ximena Walters Unavailable [phone] REASON FOR VISIT 6 month DM2, HTN Encounters Encounter Location Date Provider Diagnosis Main [address] [facility] [phone] 10/30/2024 Ximena Walters Plan Of Treatment No Information Progress Notes * RODRIGUEZJassi CONTRERASDOB: [birth year] (64 yo M)Acc No.[id number]:10/30/2024 Medical Note Patient: Jassi KNIGHT Provider: Jonah Walters :1960 A ge:64 Y S ex:Male Date:10/30/2024 Address:[address] [place], [place] [phone] Subjective: * Chief Complaints: * 1 . 6 month DM2, HTN. * Medical History: Objective: * Vitals: Assessment: Plan: * Treatment: * Billing Information: * Visit Code: * Procedure Codes: * Electronic signature of LEXY Horton sa on 10/31/2024 at 09:39 AM EDT Sign off status: Pending * Provider: Jonah Walters Date: 0 10/30/2024 Generated for Meliza gonzalez/Gabriel/eTransmitting on: 10/31/2024 09:39 AM EDT
--- OUTSIDE RECORDS SUMMARY | 2024-10-31 09:38 | XMS_ITS | Clinical Summary ---
Author Organization [facility] Address [address] [place] [address] Care Team Providers Care Dry Heat Cabinet Attendant Name Role Phone Raman Daley DO Unavailable [phone] Leticia Blanco MIRROR MAKER Unavailable [phone] Suzanna Ybarra NP Unavailable Unavailable Allergies [...] Plan of Treatment Not on file Insurance [facility] Care Teams Dry Heat Cabinet Attendant Relationship Specialty Start Date End Date Raman Daley DO [address] [id number] Referring Physician Neurology 04/07/24 Leticai Blanco NP [address] [address] Nurse Practitioner Neurology 04/07/24 Suzanna Ybarra NP [address] [address] Nurse Practitioner Neurology 04/07/24
--- OUTSIDE RECORDS SUMMARY | 2024-10-31 09:38 | XMS_ITS | Clinical Summary ---
Author Organization [employer] Address [id number] [address] [place] [address] Care Team Providers Care Gluing Machine Adjuster Name Role Phone No Pcp, No Pcp [...] Description 10/23/2024 10:50 AM EDT Office Visit [facility] [address] [place] [address] Jamil Culver MD Critical limb ischemia of right lower extremity with gangrene ([facility]) (Primary Dx) 10/23/2024 Travel 10/17/2024 12:00 PM EDT - 10/17/2024 12:45 PM EDT Surgery [facility] Cardiac Cath [address] [place] [address] Jamil Culver MD lower ext angio 10/17/2024 10:16 AM EDT - 10/17/2024 4:50 PM EDT Hospital Encounter [facility] - CVU-IVU [address] [place] [address] Jamil Culver MD PAD (peripheral artery disease); Gangrene (CMS-HCC); Critical limb ischemia of right lower extremity with gangrene ([facility]) Discharge Disposition: Home 10/17/2024 Travel 10/07/2024 3:35 PM EDT - 10/07/2024 11:59 PM EDT Hospital Encounter [facility] - Vascular [address] [place] [address] Poor circulation; Gangrene (CMS-HCC); PAD (peripheral artery disease) Discharge Disposition: Home 10/07/2024 Travel 09/25/2024 11:00 AM EDT Office Visit [facility] Vascular Surgery [address] [place] [phone] Jamil Culver MD Critical limb ischemia of right lower extremity with gangrene ([facility]) (Primary Dx); PAD (peripheral artery disease); Gangrene [...] 10/07/2024 4:29 PM EDT Poor circulation Gangrene ([facility]) PAD (peripheral artery disease) from Last 3 Months Results * VASCULAR INVASIVE (10/17/2024 12:31 PM EDT) Anatomical Region Laterality Modality X-Ray Angiograph y Narrative 10/17/2024 2:19 PM EDT Recommendations: No evidence of significant arterial occlusive disease. Continue wound care and follow up with Podiatry. Procedure Details Patient Name: Jassi Rodriguez Medical Record: [id number] Date of Operation: 10/17/2024 Preoperative Diagnosis: Right [...] The patient was then taken to the forestry farm laborer and transferred to the table. Bilateral groins [...] - 99 mg/dL 10/20/2024 9:02 AM EDT [facility] 10/17/2024 10:4 9 AM EDT 10/20/2024 9:02 AM EDT Jamil Culver MD POINT OF CARE TEST ORDERABLES Final Result [facility] [address] [place] [address], * POCT BUN, creat (10/17/2024 10:49 AM EDT) POC BUN 17 6 - 27 mg/dL 10/20/2024 9:02 AM EDT [facility] POC Creatinine 1.1 0.7 - 1.2 mg/dL 10/20/2024 9:02 AM EDT [facility] POC EGFR Non-Race Dependent 75 >=60 ml/min/1.7 3sq.m 10/20/2024 9:02 AM EDT [facility] Comment: Reported eGFR is based on the CKD-EPI 2020 equation that does not use a race coefficient. 10/17/2024 10:4 9 AM EDT 10/20/2024 9:02 AM EDT us Jamil Culver MD POINT OF CARE TEST ORDERABLES Final Result [facility] [address] [place] [address], [place] * Vas art doppler lwr bilat [...] Result from Last 3 Months Insurance [facility] MEDICARE Advance Directives * Full Code (Latest Code Status on File) Date Activated Date Inactivated Comments 09/16/2016 8:20 PM 09/22/2016 8:22 PM * Full Code Date Activated Date Inactivated Comments 09/16/2016 1:01 PM 09/16/2016 8:20 PM Care Teams Gluing Machine Adjuster Relationship Specialty Start Date End Date No Pcp, [place] [address] PCP - General Family Medicine 04/11/24
--- OUTSIDE RECORDS SUMMARY | 2024-10-31 09:39 | XMS_ITS | Encounter Summary ---
Author Organization [employer] [facility] Address [id number] [address] [place] [address] Care Team Providers Care Collector Name Role Phone No Pcp, No Pcp [...] on filedocumented in this encounter Care Teams Collector Relationship Specialty Start Date End Date No Pcp, [place] [address] PCP - General Family Medicine 04/11/24 documented as of this encounter
--- OUTSIDE RECORDS SUMMARY | 2024-10-31 09:39 | XMS_ITS | Patient Health Record ---
Author Organization [facility] Address [address] [place], [place] [id number] Care Team Providers Care Physics Technical Officer Name Role Phone Ximena Walters Unavailable [phone] Ned Rizo Unavailable [phone] Allergies No Known Allergies Results Component Value [...] UNLESS OTHERWISE INDICATED, ALL TESTING PERFORMED AT: [employer] [address] [place] [id number] COMMISSIONED SECURITY OFFICER: SHIRLEY MCCARTY M.D. CLIA NUMBER [id number] CAP ACCREDITATION AUID [id number] Changes in testing location may be associated [...] Problem Status W/U Status Risk Notes Problem 402042608 Type 2 diabetes mellitus with diabetic polyneuropathy (E11.42) Active confirmed Problem 10705757 Essential hypertension (I10) Active confirmed Problem 56925343 Mild hyperlipidemia (E78.5) Active confirmed Problem Amputation of toe (316493222) Amputation toe (S98.139A) Active confirmed Vital Signs Heart Rate 97 /min 09/30/2024 denies pain. Penelope Metzger 09/30/2024 01:20:48 PM EDT > Temperature 97.4 degrees Fahrenheit 09/30/2024 fermin es pain. Penelope Faria 09/30/2024 01:20:48 PM EDT > Respiratory Rate 18 /min 09/30/2024 denies pain . Penelope Faria 09/30/2024 01:20:48 PM EDT > Height-cm 175.26 cm 09/30/2024 denies pain. Tn Penelope tripp 09/30/2024 01:20:48 PM EDT > Oximetry 98 % 09/30/2024 denies pain. Tn Penelope tripp 09/30/2024 01:20:48 PM EDT > Blood pressure diastolic 72 mm Hg 09/30/2024 den ies pain. Penelope Faria 09/30/2024 01:20:48 PM EDT > Weight-kg 72.53 kg 09/30/2024 denies pain. Tn Penelope tripp 09/30/2024 01:20:48 PM EDT > Height 69 in 09/30/2024 denies pain. Tn Penelope tripp 09/30/2024 01:20:48 PM EDT > Blood pressure systolic 101 mm Hg 09/30/2024 fermin es pain. Penelope Faria 09/30/2024 01:20:48 PM EDT > Weight 159.9 lbs 09/30/2024 denies pain. Tn Penelope tripp 09/30/2024 01:20:48 PM EDT > BMI 23.61 kg/m2 09/30/2024 denies pain. Tn Penelope tripp 09/30/2024 01:20:48 PM EDT > Encounters Encounter Location Date Provider Diagnosis [address] [place], [place] [id number] 04/17/2024 [facility] Encounter for well ness examination Z00.00 ; [...] index [BMI] 26.0-26.9, adult Z68.26 [address] [place] [place] [id number] 05/01/2024 [facility] Closed fracture of multiple ribs of right side with routine healing, subsequent encounter S22.41XD ; Essential hypertension I10 ; Mild hyperlipidemia E78.5 ; Type 2 diabetes mellitus with diabetic polyneuropathy E11.42 ; Body mass index [BMI] 25.0-25.9, adult Z68.25 and Overweight E66.3 [address] [place], [place] [id number] 09/30/2024 Ned Browne Mild hyperlipidemi a E78.5 ; Essential hypertension I10 ; Amputation toe S98.139A and Osteomyelitis of right foot, unspecified type M86.9 [address] [place], [place] [id number] 04/17/2024 [facility] [address] [place], [place] [id number] 05/15/2024 [facility] Essential hyperten nevin I10 and Mild hyperlipidemia E78.5 [address] [place], [place] [id number] 09/26/2024 Ned Rizo Assessments Encounter Date Diagnosis [...] PRN Continue following [facility] 09/30/2024 Osteomyelitis of right foot, unspecified [...] Insured Coverage Start Date Coverage End Date [place] [employer] [address] [place] [address] [id number] Jassi Rodriguez Self - patient is the insured 5 Medical (General) History Medical History History ICD Code Type 2 Diabetes Hyperlipidemia Surgical History Surgery Date(Month/Year) [facility] right foot september 2024 Hospitalization History Reason Date(Month/Year) right foot september 2024
--- OUTSIDE RECORDS SUMMARY | 2024-10-31 09:39 | XMS_ITS | Patient Health Record ---
Author Organization [facility] [place] Address [address] [place] [address] Care Team Providers Care Soldering Inspector Name Role Phone None, Unknown or Primary Care Provider Unavailab Marii Quesada Unavailable [phone] Results Component Value Reference Range Notes CRP Reviewed date:09/22/2024 12:58:38 PM Interpretation: Performing Lab: Notes/Report: [facility] , C Reactive Protein 4.29 <=0.50 mg/dL Performing Lab: see note ML - [facility] LB Anaerobic Cult, Extended Inc ub (Not yet reviewed by provider) Interpretation: Performing Lab: Notes/Report: [facility] , Anaerobic Cult, Extended Incub See Below For Report Anaerobic Cult, Extended Incub O:BACFRA Isolated Anaerobic Cult, Extended Incub No aerobic or anaerobic growth in five days. Anaerobic Cult, Extended Incub O:BACFRA Isolated Anaerobic Cult, Extended Incub Organism: Bacteroides fragilis : Anaerobic Cult, Extended Incub O:BACFRA Isolated Anaerobic Cult, Extended Incub *ABNORMAL* Anaerobic Cult, Extended Incub O:BACFRA Isolated Anaerobic Cult, Extended Incub Recovered from broth only. Anaerobic Cult, Extended Incub O:BACFRA Isolated Anaerobic Cult, Extended Incub Studies at [facility] have confirmed the observations Anaerobic Cult, Extended Incub O:BACFRA Isolated Anaerobic Cult, Extended Incub of others who have demonstrated that Bacteroides Anaerobic Cult, Extended Incub O:BACFRA Isolated Anaerobic Cult, Extended Incub fragilis group are routinely susceptible to Cefoxitin, Anaerobic Cult, Extended Incub O:BACFRA Isolated Anaerobic Cult, Extended Incub Chloramphenicol, and Metronidazole and are usually Anaerobic Cult, Extended Incub O:BACFRA Isolated Anaerobic Cult, Extended Incub resistant to Penicillin, and variably in resistance to Anaerobic Cult, Extended Incub O:BACFRA Isolated Anaerobic Cult, Extended Incub Clindamycin. Anaerobic Cult, Extended Incub O:BACFRA Isolated Anaerobic Cult, Extended Incub Bacteroides fragilis Anaerobic Cult, Extended Incub O:BACFRA Isolated Anaerobic Cult, Extended Incub See Below For Report Anaerobic Cult, Extended Incub O:BACFRA Isolated Performing Lab: see note LC - [facility] LB Tissue Culture (Not yet revi ewed by provider) Interpretation: Performing Lab: Notes/Report: [facility] , Tissue Culture See Below For Report Tissue Culture WILL FOLLOW Tissue Culture Tissue Culture WILL FOLLOW Tissue Culture No growth after 18-2 4 hours. Tissue Culture WILL FOLLOW Tissue Culture Tissue Culture WILL FOLLOW Tissue Culture No growth in 36 - 48 hours. Tissue Culture WILL FOLLOW Tissue Culture Tissue Culture WILL FOLLOW Tissue Culture No growth in 56 - 72 hours. Tissue Culture WILL FOLLOW Performing Lab: see note LC - [facility] LB XR foot RT min 3V Reviewed date:09/23/2024 08:08:00 PM Interpretation: Performing Lab: Notes/Report: Source Facility: [place] [address] XRay Report Signed Patient: LAN RODRIGUEZ MR#: [id number] : 1960 Acct:[id number] Age/Sex: 64 / M ADM Date: 09/20/24 Loc: MS 230-[address]: Josse Barajas M.D. Ordering Physician: Colton Spears D.P.M. Date of Service: 09/23/24 Procedure(s): XR foot RT min 3V Accession Number(s): [id number] cc: Le Mares M.D.; Colton Spears D.P.M. [place] [address] Patient Name: LAN RODRIGUEZ MRN: [id number] date: 1960 Sex: M Assigned Patient Location: MS Current Patient Location: MS Accession/Order Number: [id number] Exam Date: 09/23/2024 10:54 Report Date: 09/23/2024 10:55 At the request of: COLTON SPEARS DPM Procedure: XR foot RT min 3V XR [...] Blackwell M.D. 09/23/2024 10:55 AM Dictation Location: [place] [address] Electronically authenticated by: [id number] Y Date: 09/23/2024 10:55 Dictated By: Don Blackwell M.D. Signed By: 09/23/248 DD/ 54 TD/TT: Meeting Facilitator: [place] [address] XRay Report Signed Patient: RENETTA RODRIGUEZ MR#: [id number] : 1960 Acct:[id number] Age/Sex: 64 / M ADM Date: 09/20/24 Loc: MS 230-[address]: Katlyn Barajas M.D. Ordering Physician: Colton Spears D.P.M. Date of Service: 09/23/24 Procedure(s): XR diane t RT min 3V Accession Number(s): [id number] cc: Le Mares; Colton Spears D.P.M. [place] [id number] Patient Name: LAN RODRIGUEZ MRN: [id number] date: 1960 Sex: M Assigned Patient Loc ation: MS Current Patient Loca tion: MS Accession/Order Numb er: [id number] Exam Date: 09/23/2024 10:54 Report Date: 09/23/2024 10:55 At the request of: COLTON SPEARS DPM Procedure: XR foot R T min 3V [...] Blackwell M.D. 09/23/2024 10:55 AM Dictation Location: [place] [address] Electronically authenticated by: [id number] Y Date: 09/23/2024 10:55 Dictated By: Don Blackwell M.D. Signed By: 09/23/24 1058 DD/ 105 TD/TT: Meeting Facilitator: Fungus (Mycology) Culture (N ot yet reviewed [...] (Mycology) Culture Fungus (Mycology) Culture Performed at: [facility] Fungus (Mycology) Culture Fungus (Mycology) Culture [address] [place], [place] [id number] Fungus (Mycology) Culture Fungus (Mycology) Culture Child Welfare Caseworker: Giovanny Vergara PhD, Phone: [phone] Fungus (Mycology) Culture Performing Lab: see note - [facility] LB SEE REPORT - Preanalytics Team Lead Id information not found for OBX-specific crop setting out machine operator legend Gram Stain Result (Not yet r eviewed by provider) Interpretation: Performing Lab: Notes/Report: [facility] , Gram Stain Result See Below For Report Gram Stain Result Gram Stain Result No white blood cells seen. Gram Stain Result Gram Stain Result Gram Stain Result Gram Stain Result No organisms seen Gram Stain Result Gram Stain Result Performed at: [facility] Gram Stain Result Gram Stain Result [address] [place], [place] [phone] Gram Stain Result Gram Stain Result Child Welfare Caseworker: Jorge Luis Vergara PhD, Phone: [phone] Gram Stain Result Performing Lab: see note - [facility] LB SEE REPORT - Preanalytics Team Lead Id information not found for OBX-specific crop setting out machine operator legend Fungus (Mycology) Culture (N ot yet reviewed [...] (Mycology) Culture Fungus (Mycology) Culture Performed at: [facility] Fungus (Mycology) Culture Fungus (Mycology) Culture [address] [place], [place] [id number] Fungus (Mycology) Culture Fungus (Mycology) Culture Child Welfare Caseworker: Giovanny Vergara PhD, Phone: [phone] Fungus (Mycology) Culture Performing Lab: see note - [facility] LB SEE REPORT - Preanalytics Team Lead Id information not found for OBX-specific crop setting out machine operator legend Fungus Stain (Not yet review ed by provider) Interpretation: Performing Lab: Notes/Report: Comment Proximal phalanx [facility] , Fungus Stain See Below For Report Fungus Stain Fungus Stain KALE/Calcofluor prepa ration: no fungus observed. Fungus Stain Performing Lab: see note - [facility] LB Acid Fast Culture (Not yet r eviewed by provider) Interpretation: Performing Lab: Notes/Report: Comment Proximal phalanx [facility] , Acid Fast Culture See Below For Report Acid Fast Culture Specimen has been received and testing has been initiated. Acid Fast Culture Performed at: [facility] Acid Fast Culture Specimen has been received and testing has been initiated. Acid Fast Culture [address] [place], [place] [phone] Acid Fast Culture Specimen has been received and testing has been initiated. Acid Fast Culture Child Welfare Caseworker: Jorge Luis Vergara PhD, Phone: [phone] Acid Fast Culture Specimen has been received and testing has been initiated. Performing Lab: see note - [facility] LB SEE REPORT - Preanalytics Team Lead Id information not found for OBX-specific crop setting out machine operator legend Acid Fast Smear (Not yet rev iewed by provider) Interpretation: Performing Lab: Notes/Report: Comment Proximal phalanx [facility] , Acid Fast Smear See Below For Report Acid Fast Smear Negative Performing Lab: see note LC - [facility] LB AFB Specimen Processing (Not yet reviewed by provider) Interpretation: Performing Lab: Notes/Report: Comment Proximal phalanx [facility] , AFB Specimen Processing See Below For Report AFB Specimen Processing AFB Specimen Processing Tissue Grinding AFB Specimen Processing Performing Lab: see note LC - [facility] LB CRP Reviewed date:09/23/2024 08:08:00 PM Interpretation: Performing Lab: Notes/Report: [facility] , C Reactive Protein 3.19 <=0.50 mg/dL Performing Lab: see note [facility] LB ECG 12 lead Reviewed date:09/22/2024 07:01:41 PM Interpretation: Performing Lab: Notes/Report: Source Facility: [place] [address] Electrocardiograph Report Draft Patient: LAN RODRIGUEZ MR#: [id number] : 1960 Acct:[id number] Age/Sex: 64 / M ADM Date: 09/20/24 Loc: MS 230-[address]: Josse Barajas M.D. Ordering Physician: Josse Barajas M.D. Date of Service: 09/22/24 Procedure(s): ECG 12 lead Accession Number(s): [id number] cc: [facility] Test Date: 2024-09-22 Pat Name: LAN RODRIGUEZ Department: Room: [facility] Gender: Male Biztalk Consultant: : 1960 Requested By: JOSSE BARAJAS Order Number: [id number] Reading MD: Measurements Intervals [place] Rate: 76 P: 55 TX: 146 QRS: 23 QRSD: 76 T: 47 QT: 368 QTc: 415 Interpretive Statements SINUS RHYTHM No previous ECG available for comparison Dictated By: Manju Zuñiga Signed By: DD/ 1440 TD/TT: Meeting Facilitator: [place] [address] Electrocardiograph Report Draft Patient: RENETTA RODRIGUEZ MR#: [id number] : 1960 Acct:[id number] Age/Sex: 64 / M ADM Date: 09/20/24 Loc: MS 230-[address]: Katlyn Barajas M.D. Ordering Physician: Josse Barajas M.D. Date of Service: 09/22/24 Procedure(s): ECG 12 lead Accession Number(s): [id number] cc: [facility] Test Date: 2024-09-22 Pat Name: LAN RODRIGUEZ Department: 53 Room: [facility] Gender: Male Biztalk Consultant: : 1960 Requ ested By: JOSSE BARAJAS Order Number: [id number] Reading MD: Measurements Intervals [place] Rate: 76 P: 55 TX: 146 QRS: 23 QRSD: 76 T: 47 QT: 368 QTc: 415 Interpretive Statements SINUS RHYTHM No previous ECG avai lable for comparison Dictated By: Manju Zuñiga Signed By: DD/ 1440 TD/TT: Meeting Facilitator: VANCOMYCIN TROUGH Reviewed date:09/23/2024 08:08:00 PM Interpretation: Performing Lab: Notes/Report: [facility] , Vancomycin Trough 18.3 5.0-20.0 ug/mL Performing Lab: see note ML - [facility] LB Reason For Referral No Information Problems Problem Type SNOMED Code ICD Code Onset Dates Problem Status W/U Status Risk Notes Problem Diabetic neuropathy (525718948) Diabetic neuropathy (E11.40) Active confirmed Problem Leukocytosis (830736339) Leukocytosis (D72.829) Active confirmed Problem Protein calorie malnutrition (070036134) Protein calorie malnutrition (E46) Active confirmed Problem Dry gangrene (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
--- OUTSIDE RECORDS SUMMARY | 2024-10-31 09:39 | XMS_ITS | Encounter Summary ---
Author Organization [facility] Address [id number] [address] [place] [address] Care Team Providers Care Pharmaceutical Botanist Name Role Phone No Pcp, No Pcp [...] on filedocumented in this encounter Care Teams Pharmaceutical Botanist Relationship Specialty Start Date End Date No Pcp, [place] [address] PCP - General Family Medicine 04/11/24 documented as of this encounter
--- NOTE | 2024-10-31 09:40 | XR_ITS ---
The [address] [address] Patient Name: LAN WITT MRN: [id number] date: 1960 Sex: M Assigned Patient Location: [facility] Current Patient Location: Accession/Order Number: [id number] Exam Date: 10/31/2024 10:17 Report Date: 10/31/2024 10:23 At the request of: MAYRA JAQUEZ DPSaud Procedure: XR foot RT min 3V RIGHT FOOT - 3 views CLINICAL DATA: Right foot pain and ulcer at the second toe. COMPARISON: 09/23/2024 and 09/20/2024 Weightbearing AP, lateral and oblique views were obtained. There is osteopenia. There is redemonstration of amputation of first toe at the base of the proximal phalanx. There appears to be new amputation at the second toe at the distal interphalangeal joint. An old mildly displaced fracture is again seen at the mid to distal shaft of the fifth metatarsal. There is also an old fracture at the distal fibular metadiaphysis. There is no acute fracture or dislocation. There is loss of the soft tissues the distal tip of the second toe. There is subcutaneous air around the proximal phalanx of the digit. This might be postoperative if the surgery was recent however Infection is not excluded. Correlation will be needed. Atherosclerotic disease is seen. XR/XR foot RT min 3V IMPRESSION: OSTEOPENIA AND OLD FRACTURES OF THE FIFTH METATARSAL AND DISTAL FIBULA. AMPUTATION AT THE FIRST AND SECOND TOES. LOSS OF SOFT TISSUES AT THE DISTAL SECOND DIGIT AND SUBCUTANEOUS AIR. CORRELATION IS RECOMMENDED TO THE DATE OF SURGERY TO DIFFERENTIATE POSTOPERATIVE AIR FROM INFECTION Impression dictated by: Brii Kuhn M.D. 10/31/2024 10:23 AM Dictation Location: [place] [address] Electronically authenticated by: [id number] Y Date: 10/31/2024 10:23
--- OUTSIDE RECORDS SUMMARY | 2024-10-31 09:50 | XMS_ITS | CCD ---
Author Organization [facility] CliniSynd Care Team Providers Care Tetryl Screen Operator Name Role Phone MARCEL PAIZ Attending Unavailable STEVEN WAN Consulting Unavailable LE RODGERS Primary Care Unavailable MARCEL PAIZ Admitting Unavailable MARCEL PAIZ Consulting Unavailable Yolette Pierre Unavailable Le Rodgers Unavailable MD Le Rodgers Primary Care Provider TIFFANIE Pierre Attending Provider Unavailable Primary Care Provider UnavailMelanie Hale DO Unavailable [phone] Francis MECHANIC DRIVER, Leticia Unavailable Tate MECHANIC DRIVER, Suzanna Unavailable MELANIE DALEY Attending Unavailable Yolette Pierre APRN Attending Provider Mayra Spears Attending Unavailable Mayra Spears Admitting Unavailable Yolette Pierre Admitting Unavailable Yolette Pierre Attending Unavailable PARRISH LOCKE Attending Unavailable NO PCP, NO PCP Primary Care Unavailable MAYRA SPEARS Referring Unavailable NO PCP, NO PCP Primary Care Unavailable Mayra Spears DPM Attending Provider JAMIL CULVER F Admitting Unavailable AUGUSTO MOHAMED F Attending Unavailable NO PCP, NO PCP Primary Care Unavailable No Pcp, No Pcp Primary Care Provider UnavailJAMIL Soriano F Attending Unavailable MAYRA SPEARS Referring Unavailable NO PCP, NO PCP Primary Care Unavailable VERNON CULVERAMED F Attending Unavailable NO PCP, NO PCP Primary Care Unavailable Selena MECHANIC DRIVERMauryCFrancisco Primary Care Provider Krys Hummel MD Attending Provider [phone] Shaikh Girard MD Attending Provider Desiree Garcia CMA Attending Provider Yolette Figueroa APRN Attending Provider NON STAFF Primary Care Provider Unavailoctaviano kelley Medications Current Medications Medication Drug Class(es) Dates [...] 09/25/2024 Active Blood-Glucose Meter (Onetouch Ultra2 Meter) misc (8 sources) Start: 06-18-2024 Blood-Glucose Meter (Onetouch Ultra2 Meter) misc Active 0 .Route 1 June 18, 2024 10:07am As directed test blood sugar three times daily Start: 06-18-2024 Blood-Glucose Meter (Onetouch Ultra2 Meter) misc Active 0 .Route 1 June 18, 2024 9:07am As directed test blood sugar three times daily Start: 06-18-2024 End: 06-18-2024 Blood-Glucose Meter (Onetouc h Ultra2 Meter) misc Discontinued 0 .Route June 18, 2024 1:00am June 18, 2024 10:08am As directed Start: 06-18-2024 End: 06-18-2024 Blood-Glucose Meter (Onetouc h Ultra2 Meter) misc Discontinued 0 .Route June 18, 2024 12:00am June 18, 2024 9:08am As directed cholecalciferol 0.05 mg oral capsule (13 sources) Vitamin D Start: 09-05-2023 take 1 capsule by [facility] once daily Start: 12-19-2022 take 1 capsule by [facility] every week Cholecalciferol 1.25 MG (21282 UT) 1 capsule Orally weekly for 56 days Then D3 OtC 4000 UT daily Dec, Active take 1 capsule by [facility] every week Cholecalciferol 100 MCG (4000 UT) 1 capsule Orally weekly for 56 days Then D3 OtC 4000 UT daily Active take 1 capsule by [facility] every week Cholecalciferol 1.25 MG (77841 UT) 1 capsule Orally weekly for 56 [...] take 1 tablet by mouth once daily Start: 02-03-2022 take 1 tablet by [facility] every twenty-four hours Farxiga 5 MG 1 [...] has coupon card Active Flash Glucose Scanning Ralston (Freestyle Miladys 2 Ralston) misc (12 sources) Start: 09-07-2023 Flash Glucose Scanning R[place] (Freestyle Miladys 2 Ralston) misc Active 0 .MEDSUPPLY September 07, 2023 12:58pm As directed to monitor blood sugar Start: 09-07-2023 Flash Glucose Scanning R[place]ston (Freestyle Miladys 2 Ralston) misc Active 0 .MEDSUPPLY September 07, 2023 1:58pm As directed to monitor blood sugar Start: 09-07-2023 End: 09-07-2023 Flash Glucose Scanning Reade r (Freestyle Miladys 2 Ralston) misc Discontinued 0 .MEDSUPPLY September 06, 2023 11:00pm September 07, 2023 1:01pm As directed Start: 09-07-2023 End: 09-07-2023 Flash Glucose Scanning Reade r (Freestyle Miladys 2 Ralston) misc Discontinued 0 .MEDSUPPLY September 07, 2023 12:00am September 07, 2023 2:01pm As directed Flash Glucose Sensor (Freest yle Miladys 2 Sensor) kit (18 sources) Start: 06-18-2024 Flash Glucose Sensor (Freestyle Miladys 2 Sensor) kit Active 0 .MEDSUPPLY June 18, 2024 9:51am As directed [...] yle Miladys 2 Sensor) kit Discontinued 0 .MEDSUPPLY March 24, 2024 10:37am June 18, [...] yle Miladys 2 Sensor) kit Discontinued 0 .MEDSUPPLY March 24, 2024 1:00am March 24, [...] Miladys 2 Sensor) kit Discontinued EACH .[facility]TE [facility] September 05, 2023 12:00am March 24, 2024 10:36am As directed Start: 09-05-2023 End: 03-24-2024 Flash Glucose Sensor (Freest yle Miladys 2 Sensor) kit Discontinued EACH .ROUTE .MEDSUPPLY September 04, 2023 11:00pm March 24, 2024 9:36am As directed Start: 09-05-2023 Flash Glucose Sensor (Freestyle Miladys 2 Sensor) kit Active EACH .ROUTE .MEDSUPPLY September 05, 2023 12:00am As directed FreeStyle Miladys 2 Ral[place] - (20 sources) Start: 08-24-2021 FreeStyle Libr e 2 Ralston - as directed SQ 5 x day for 365 days Dx E11.65 patient needs reader only 20 Aug, 2021 Active FreeStyle Miladys 2 Sensor - (20 [...] insulin aspart, human 100 unt/ml pen injector (17 sources) Insulin Analog Start: 01-21-2024 insulin aspart , niacinamide, 100 unit/mL (3 mL) insulin pen 01/21/2024 Active Start: 01-21-2024 Start: 09-05-2023 End: 09-10-2023 Insulin Aspart U-100 (Novolo g Flexpen U-100 Insulin) 100 unit/mL (3 mL) insulin pen Discontinued SUBCUT September 05, 2023 12:00am September 10, 2023 8:11am FreeTextSi:40 ISS Subcutaneous QID; Note: Source Status: Not-TakingundefinedPRNHAS LISPRO, ASPART BACK UP; Refills: 1; Qty: 30 ml; Provider: Gabby Eisenberg Start: 06-07-2023 Fiasp FlexTouc h 100 UNIT/ML ISS 1:40 Subcutaneous 4 x daily for 90 days Expect up to 50 u per day Jun, Active NovoLOG FlexPen 100 UNIT/ML 1:40 ISS Subcutaneous QID for 90 days HAS LISPRO, ASPART BACK UP Not-Taking/PRN 3 ml insulin glargine 100 unt/ml pen injector (20 sources) Insulin Analog Start: 10-09-2024 inject 50 [IU] by subcutaneous injection once daily in the evening Start: 04-23-2024 End: 10-09-2024 inject 60 [IU] by subcutaneous injection once daily in the evening Insulin Glargine 100 unit/mL (3 mL) insulin pen Discontinued 40 UNIT SUBCUT Every evening 60 April 23, 2024 11:46am October 09, 2024 11:56am titrate to 60 u once daily, has [...] 12 hours or as directed by MD [place] patch 04/11/2024 Active lisinopril 2.5 mg oral tablet (16 sources) Angiotensin Converting Enzyme Inhibitor Start: 09-05-2023 take 1 tablet by mouth once daily Start: 02-28-2023 take 1 tablet by [facility] every twenty-four hours Lisinopril 5 MG 1 tablet Orally Once a day for 90 days Feb, Active Start: 12-19-2022 take 1 tablet by destiny th every twenty-four hours Lisinopril 2.5 MG 1 tablet Orally Once a day for 30 days Escalate per PCP Dec, Active OXcarbazepine 150 mg oral tablet (7 sources) Anti-epileptic Agent Start: 04-07-2024 End: 04-07-2025 take 1 tablet by mouth once daily ozempic (0.25 or 0.5 mg/dose) 2 mg/3ml solution pen-injector (4 sources) Ozempic (0.25 or 0.5 MG/DOSE) 2 MG/3ML 0.5 mg Subcutaneous weely for 90 days COPAY CARD Active pen needle, diabetic (Novofine 32) (6 sources) Start: 09-05-2023 pen needle, diabetic (Novofine [...] take 1 tablet by mouth once daily Semaglutide (9 sources) Start: 06-18-2024 inject 1 mg by subcutaneous injection every week Start: 06-18-2024 inject 1 mg by subcu taneous injection every week Semaglutide (Ozempic) 1 mg/dose (4 mg/3 mL) pen injector Active 1 MG SUBCUT every week 3 June 18, 2024 10:37am patient will have [...] Subcutaneous daily for 90 days September, Not-Taking/PRN 3 ml insulin lispro-aabc 200 unt/ml pen injector (20 sources) Insulin Analog Start: 06-11-2024 End: 06-18-2024 Insulin Lispro-Aabc (Lyumjev Kwikpen U-200 Insulin) 200 unit/mL (3 mL) insulin pen Discontinued 1 sliding scale dose SUBCUT Use as Directed June 11, 2024 1:00am June 18, 2024 9:53am ISS 1:40 ICR 1:10 ACHS TID. Expect up to 40 u per day Start: 09-10-2023 End: 01-21-2024 Insulin Lispro Discontinued [...] 24 hr Discontinued 1500 MG PO Daily April 23, 2024 11:48am June 18, 2024 9:56am 2 tabs with breakfast, one tab with dinner Start: 09-10-2023 take 2 tablets by mo ut once daily at breakfast, then take 1 [...] Discontinued 500 MG PO Every evening September 10, 2023 12:00am September 10, 2023 8:47am Start: 09-05-2023 End: 09-10-2023 Metformin 500 mg [...] QID for 90 days Jun, Not-Taking Semaglutide (12 sources) Start: 09-10-2023 End: 04-23-2024 Semaglutide (Ozempic) 0.25 m g or 0.5 mg (2 mg/3 mL) pen injector Discontinued 0.5 MG SUBCUT every week 9.568 September 10, 2023 8:40am April 23, 2024 [...] Semglee 100 UNIT/ML 45 units Subcutaneou s HS insurance changed from Lantus to Semglee Active [...] 11-01-2021 Chronic Gangrene (4 sources) Atherosclerosis of [place] arteries of extremities with gangrene, right leg; [...] deficiency; Translations: [Vitamin D deficiency, unspecified] Onset: 03-16-2022 Resolved: 11-01-2021 Chronic Open wounds of extremities (2 sources) Amputated big toe; 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, initial encounter] 10-09-2024 Chronic Other aftercare (17 sources) custodial (current) use of insulin; Translations: [Long-term (current) use of insulin] Onset: 04-12-2020 Resolved: 11-21-2021 Episodic Other aftercare (20 sources) Long-term 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 insulin; 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] 09-05-2023 Episodic Other circulatory disease (1 source) Other specified symptoms and signs involving the circulatory and respiratory systems; Translations: [Other specified symptoms and signs involving the circulatory and respiratory systems] Onset: 10-07-2024 Episodic Other circulatory disease (2 sources) Low blood pressure; Translations: [Hypotension, unspecified] 10-09-2024 Episodic Other connective tissue disease (2 sources) Neuralgia; Translations: [Neuralgia and neuritis, unspecified] 04-07-2024 Episodic Other fractures (4 sources) Fracture of multiple ribs ; Translations: [...] nutritional; endocrine; and metabolic disorders (7 sources) Overweight in adulthood with body mass [...] 10-17-2024 Creatinine [Mass/Vol] 1.1 mg/dL Normal 0.7-1.2 [facility] Comment on above: Performed By: #### I BC #### [facility] ([facility]) [address] [place] [address] VIR GFR/1.73 sq M.predicted among non-blacks MDRD (S/P/Bld) [Vol rate/Area] 75 mL/min/{1.73_m2} Normal >=[facility] Comment on above: Result Comment: Repo rted eGFR is based on the CKD-EPI 2020 equation that does not use a race coefficient. Performed By: #### I BC #### [facility] ([facility]) [address] [place] [address] VIR Urea nitrogen [Mass/Vol] 17 mg/dL Normal 6-27 [facility] Comment on above: Performed By: #### I BC #### [facility] ([facility]) [address] [place] [address] VIR PORTABLE GLUCOSEon 5 Glucose [Mass/Vol] 89 mg/dL Normal 65-99 [facility] Comment on above: Performed By: #### I GLU #### [facility] ([facility]) [address] [place] [address] VIR HbA1c HPLC (Bld) [Mass fract ion]on 10-09-2024 HbA1c (Bld) [Mass fraction] 6.6 % [facility] No Panel Informationon 10-09 Bedside Glucose 123 [facility] Basophils Auto (Bld) [#/Vol] on 09-23-2024 Basophils (Bld) [#/Vol] Automated basophil count 0.0-0.1 [facility] Basophils (Bld) [#/Vol] 0.1 10 3/uL 0.0-0.1 [facility] Basophils/100 WBC Auto (Bld) on 09-23-2024 Basophils/100 WBC (Bld) Automated basophil % 0.2-2.0 [facility] Basophils/100 WBC (Bld) 0.7 % 0.2-2.0 [facility] Eosinophils/100 WBC Auto (Bl d)on 09-23-2024 Eosinophils/100 WBC (Bld) Automated eosinophil % Low 0.9-7.0 [facility] Eosinophils/100 WBC (Bld) 0.2 % Low 0.9-7.0 [facility] Erythrocyte distribution wid th Auto (RBC) [Ratio]on 09-23-2024 Erythrocyte distribution width (RBC) [Ratio] Erythrocyte distribution width [Ratio] by Automated count 11.0-15.0 [facility] Erythrocyte distribution width (RBC) [Ratio] 11.0 % 11.0-15.0 [facility] Estimated glomerular filtrat ion rate (GFR) non- Americanon 09-23-2024 GFR/1.73 sq M.predicted among non-blacks MDRD (S/P/Bld) [Vol rate/Area] Estimated glomerular filtration rate (GFR) non- >=60 mL/min/1.73m 2 [facility] GFR/1.73 sq M.predicted among non-blacks MDRD (S/P/Bld) [Vol rate/Area] mL/min/{1.73_m2} >=60 mL/min/1.73m 2 [facility] Globulin Calc (S) [Mass/Vol] on 09-23-2024 Globulin (S) [Mass/Vol] Serum globulin measurement by calculation (mass/volume) [facility] Globulin (S) [Mass/Vol] 5.6 g/dL [facility] Hematocrit Auto (Bld) [Volum e fraction]on 09-23-2024 Hematocrit (Bld) [Volume fraction] Hematocrit [Volume Fraction] of Blood by Automated count Low 42.0-54.0 [facility] Hematocrit (Bld) [Volume fraction] 34.7 % Low 42.0-54.0 [facility] Hemoglobin [Mass/volume] in Bloodon 09-23-2024 Hemoglobin (Bld) [Mass/Vol] Hemoglobin [Mass/volume] in Blood Low 14.0-18.0 [facility] Hemoglobin (Bld) [Mass/Vol] 11.9 g/dL Low 14.0-18.0 [facility] Gavino 09-23-2024 L - -------- Specimen: [id number] Received: 09/23/24-1299 Status: LORENA Childs Num: [id number] Spec Type: Surgical Subm Dr: Mayra Spears DPM, MS Tissues: A DIGIT AMPUTATION (RIGHT DISTAL PHALANX) B DIGIT AMPUTATION (RIGHT PROXIMAL PHALANX) Procedures: HE/3, Gross/Micro L4/2, Decalcification/2 -------- Age/ Patient Sex Location Account Attending Physician -------- Jassi Rodriguez 64/M LABELL [id number] Mayra Spears DPM, MS -------- SPEC NUM: [id number] RECD: 09/23/24-1299 STATUS: LORENA PRAVINSandeep NUM: [id number] SCOTT: 09/23/[address]: Mayra Spears DPM, MS ENTERED: 09/23/24-[address]: Stephanie Guzman SPEC TYPE: Surgical DEPT: THANH MURRAY ENTERED BY: [id number] RECV BY: [id number] ORDERED: HE/3, Gross/Micro L4/2, Decalcification/2 ORDERED: HE/3, [...] dry gangrene right great toe -------- Specimen: [id number] Received: 09/23/24 Status: LORENA Childs Num: [id number] Spec Type: Surgical Subm Dr: Mayra Spears,DPSaud, MS Tissues: A DIGIT AMPUTATION (RIGHT DISTAL PHALANX) B DIGIT AMPUTATION (RIGHT PROXIMAL PHALANX) Procedures: HE/3, Gross/Micro L4/2, Decalcification/2 -------- Patient: Jassi Rodriguez [id number] (Continued) -------- Specimen: [id number] Received: 09/23/24 (Continued) Signed (signature on file) Mingo Mejia MD 09/26/24 1340 -------- Specimen: [id number] Received: 09/23/24 Status: LORENA Childs Num: [id number] Spec Type: Surgical Subm Dr: Mayra Spears,DPM, MS Tissues: A DIGIT AMPUTATION (RIGHT DISTAL PHALANX) B DIGIT AMPUTATION (RIGHT PROXIMAL PHALANX) Procedures: HE/3, Gross/Micro L4/2, Decalcification/2 -------- Patient: Jassi Rodriguez [id number] (Continued) -------- Specimen: [id number] Received: 09/23/24 (Continued) Gross Description Part A is received [...] cm from the proximal skin margin. A junior sales representative section of the indurated area and underlying distal phalanx is submitted in A1 after decalcification with tangential cross-sections of the proximal skin margin submitted in A2. (2, , [id number] A) Part B is received in formalin [...] submitted in B1 after decalcification. (1, , [id number] B) Microscopic Description Microscopic examination is performed CPT Codes [id number] -------- -------- Specimen: [id number] Received: (more content not included)... Normal [facility] - Chemistry and C hemistry - challengeon 09-23-2024 Albumin [Mass/Vol] 1.8 g/dL Low 3.4-5.0 [facility] ALP [Catalytic activity/Vol] 76 U/L 46-116 [facility] ALT [Catalytic activity/Vol] 15 U/L Low 16-63 [facility] AST [Catalytic activity/Vol] 22 U/L 15-37 [facility] Bilirubin [Mass/Vol] 0.3 mg/dL 0.2-1.0 [facility] Calcium [Mass/Vol] 9.0 mg/dL 8.5-10.1 [facility] Chloride [Moles/Vol] 103 mmol/L 98-107 [facility] CO2 [Moles/Vol] 26.0 mmol/L 21.0-32.0 [facility] Creatinine [Mass/Vol] 0.94 mg/dL 0.70-1.30 [facility] GFR/1.73 sq M.predicted MDRD (S/P/Bld) [Vol rate/Area] mL/min/{1.73_m2} >=60 mL/min/1.73m 2 [facility] Glucose [Mass/Vol] 124 mg/dL High 74-106 [facility] Potassium [Moles/Vol] 4.1 mmol/L 3.5-5.1 [facility] Protein [Mass/Vol] 7.4 g/dL 6.4-8.2 [facility] Sodium [Moles/Vol] 139 mmol/L 136-145 [facility] Urea nitrogen [Mass/Vol] 22.0 mg/dL High 7.0-18.0 [facility] Urea nitrogen/Creatinine [Mass ratio] 23.4 mg/mg [facility] Laboratory - Hematology and Cell countson 09-23-2024 Immature granulocytes/100 WBC (Bld) 0.3 % 0.0-0.5 [facility] Leukocytes [#/volume] correc markie for nucleated erythrocytes in Blood by Automated counon 09-23-2024 WBC corrected for nucl RBC Auto (Bld) [#/Vol] Leukocytes [#/volume] corrected for nucleated erythrocytes in Blood by Automated coun .0-11.0 [facility] WBC corrected for nucl RBC Auto (Bld) [#/Vol] 9.1 10 3/uL 4.0-11.0 [facility] Lymphocytes Auto (Bld) [#/Vo l]on 09-23-2024 Lymphocytes (Bld) [#/Vol] Lymphocytes [#/volume] in Blood by Automated count 1.2-3.8 [facility] Lymphocytes (Bld) [#/Vol] 1.6 10 3/uL 1.2-3.8 [facility] Lymphocytes/100 WBC Auto (Bl d)on 09-23-2024 Lymphocytes/100 WBC (Bld) Lymphocytes/100 leukocytes in Blood by Automated count Low 20.5-60.0 [facility] Lymphocytes/100 WBC (Bld) 17.6 % Low 20.5-60.0 [facility] MCH Auto (RBC) [Entitic mass ]on 09-23-2024 MCH (RBC) [Entitic mass] MCH [Entitic mass] by Automated count 25.9-34.0 [facility] MCH (RBC) [Entitic mass] 30.7 pg 25.9-34.0 [facility] MCHC Auto (RBC) [Mass/Vol]on 09-23-2024 MCHC (RBC) [Mass/Vol] MCHC [Mass/volume] by Automated count 29.9-35.2 [facility] MCHC (RBC) [Mass/Vol] 34.3 g/dL 29.9-35.2 [facility] MCV Auto (RBC) [Entitic vol] on 09-23-2024 MCV (RBC) [Entitic vol] MCV [Entitic volume] by Automated count 80.0-94.0 [facility] MCV (RBC) [Entitic vol] 89.7 fL 80.0-94.0 [facility] Monocytes Auto (Bld) [#/Vol] on 09-23-2024 Monocytes (Bld) [#/Vol] Automated blood monocyte count High 0.3-0.8 [facility] Monocytes (Bld) [#/Vol] 1.4 10 3/uL High 0.3-0.8 [facility] Monocytes/100 WBC Auto (Bld) on 09-23-2024 Monocytes/100 WBC (Bld) Automated monocyte % High 1.7-12.0 [facility] Monocytes/100 WBC (Bld) 15.6 % High 1.7-12.0 [facility] Neutrophils Auto (Bld) [#/Vo l]on 09-23-2024 Neutrophils (Bld) [#/Vol] Neutrophils [#/volume] in Blood by Automated count 1.4-6.5 [facility] Neutrophils (Bld) [#/Vol] 6.0 10 3/uL 1.4-6.5 [facility] Neutrophils/100 WBC Auto (Bl d)on 09-23-2024 Neutrophils/100 WBC (Bld) Automated neutrophil % 43.0-75.0 [facility] Neutrophils/100 WBC (Bld) 65.6 % 43.0-75.0 [facility] No Panel Informationon 09-23 C-Reactive Protein, Quantitative 3.19 mg/dL High <=0.50 [facility] Eosinophils # (Auto) 0.0 10 3/uL 0.0-0.7 [facility] Immature Granulocyte # (Auto) 0.03 10 3/uL 0.00-0.03 [facility] Platelet mean volume Auto (B ld) [Entitic vol]on 09-23-2024 Platelet mean volume (Bld) [Entitic vol] Platelet mean volume [Entitic volume] in Blood by Automated count 9.5-13.5 [facility] Platelet mean volume (Bld) [Entitic vol] 9.5 fL 9.5-13.5 [facility] Platelets Auto (Bld) [#/Vol] on 09-23-2024 Platelets (Bld) [#/Vol] Platelets [#/volume] in Blood by Automated count 150-450 [facility] Platelets (Bld) [#/Vol] 339 10 3/uL 150-450 [facility] RBC Auto (Bld) [#/Vol]on RBC (Bld) [#/Vol] Erythrocytes [#/volume] in Blood by Automated count Low 4.70-6.10 [facility] RBC (Bld) [#/Vol] 3.87 10 6/uL Low 4.70-6.10 [facility] Serum or plasma albumin/glob ulin mass ratioon 09-23-2024 Albumin/Globulin [Mass ratio] Serum or plasma albumin/globulin mass ratio [facility] Albumin/Globulin [Mass ratio] 0.3 {ratio} [facility] Serum or plasma anion gap de terminationon 09-23-2024 Anion gap [Moles/Vol] Serum or plasma anion gap determination [facility] Anion gap [Moles/Vol] 14.1 mmol/L [facility] Basophils Auto (Bld) [#/Vol] on 09-22-2024 Basophils (Bld) [#/Vol] Automated basophil count 0.0-0.1 [facility] Basophils (Bld) [#/Vol] 0.1 10 3/uL 0.0-0.1 [facility] Basophils/100 WBC Auto (Bld) on 09-22-2024 Basophils/100 WBC (Bld) Automated basophil % 0.2-2.0 [facility] Basophils/100 WBC (Bld) 0.6 % 0.2-2.0 [facility] Eosinophils/100 WBC Auto (Bl d)on 09-22-2024 Eosinophils/100 WBC (Bld) Automated eosinophil % Low 0.9-7.0 [facility] Eosinophils/100 WBC (Bld) 0.2 % Low 0.9-7.0 [facility] Erythrocyte distribution wid th Auto (RBC) [Ratio]on 09-22-2024 Erythrocyte distribution width (RBC) [Ratio] Erythrocyte distribution width [Ratio] by Automated count 11.0-15.0 [facility] Erythrocyte distribution width (RBC) [Ratio] 11.1 % 11.0-15.0 [facility] Estimated glomerular filtrat ion rate (GFR) non- Americanon 09-22-2024 GFR/1.73 sq M.predicted among non-blacks MDRD (S/P/Bld) [Vol rate/Area] Estimated glomerular filtration rate (GFR) non- >=60 mL/min/1.73m 2 [facility] GFR/1.73 sq M.predicted among non-blacks MDRD (S/P/Bld) [Vol rate/Area] mL/min/{1.73_m2} >=60 mL/min/1.73m 2 [facility] Globulin Calc (S) [Mass/Vol] on 09-22-2024 Globulin (S) [Mass/Vol] Serum globulin measurement by calculation (mass/volume) [facility] Globulin (S) [Mass/Vol] 5.4 g/dL [facility] Hematocrit Auto (Bld) [Volum e fraction]on 09-22-2024 Hematocrit (Bld) [Volume fraction] Hematocrit [Volume Fraction] of Blood by Automated count Low 42.0-54.0 [facility] Hematocrit (Bld) [Volume fraction] 33.8 % Low 42.0-54.0 [facility] Hemoglobin [Mass/volume] in Bloodon 09-22-2024 Hemoglobin (Bld) [Mass/Vol] Hemoglobin [Mass/volume] in Blood Low 14.0-18.0 [facility] Hemoglobin (Bld) [Mass/Vol] 11.8 g/dL Low 14.0-18.0 [facility] Laboratory - Chemistry and C hemistry - challengeon 09-22-2024 Albumin [Mass/Vol] 1.9 g/dL Low 3.4-5.0 [facility] ALP [Catalytic activity/Vol] 74 U/L 46-116 [facility] ALT [Catalytic activity/Vol] 15 U/L Low 16-63 [facility] AST [Catalytic activity/Vol] 20 U/L 15-37 [facility] Bilirubin [Mass/Vol] 0.4 mg/dL 0.2-1.0 [facility] Calcium [Mass/Vol] 8.7 mg/dL 8.5-10.1 [facility] Chloride [Moles/Vol] 102 mmol/L 98-107 [facility] CO2 [Moles/Vol] 23.7 mmol/L 21.0-32.0 [facility] Creatinine [Mass/Vol] 0.99 mg/dL 0.70-1.30 [facility] GFR/1.73 sq M.predicted MDRD (S/P/Bld) [Vol rate/Area] mL/min/{1.73_m2} >=60 mL/min/1.73m 2 [facility] Glucose [Mass/Vol] 87 mg/dL 74-106 [facility] Potassium [Moles/Vol] 4.4 mmol/L 3.5-5.1 [facility] Protein [Mass/Vol] 7.3 g/dL 6.4-8.2 [facility] Sodium [Moles/Vol] 137 mmol/L 136-145 [facility] Urea nitrogen [Mass/Vol] 21.0 mg/dL High 7.0-18.0 [facility] Urea nitrogen/Creatinine [Mass ratio] 21.2 mg/mg [facility] Laboratory - Hematology and Cell countson 09-22-2024 Immature granulocytes/100 WBC (Bld) 0.4 % 0.0-0.5 [facility] Leukocytes [#/volume] correc markie for nucleated erythrocytes in Blood by Automated counon 09-22-2024 WBC corrected for nucl RBC Auto (Bld) [#/Vol] Leukocytes [#/volume] corrected for nucleated erythrocytes in Blood by Automated coun 4.0-11.0 [facility] WBC corrected for nucl RBC Auto (Bld) [#/Vol] 9.6 10 3/uL 4.0-11.0 [facility] Lymphocytes Auto (Bld) [#/Vo l]on 09-22-2024 Lymphocytes (Bld) [#/Vol] Lymphocytes [#/volume] in Blood by Automated count 1.2-3.8 [facility] Lymphocytes (Bld) [#/Vol] 1.7 10 3/uL 1.2-3.8 [facility] Lymphocytes/100 WBC Auto (Bl d)on 09-22-2024 Lymphocytes/100 WBC (Bld) Lymphocytes/100 leukocytes in Blood by Automated count Low 20.5-60.0 [facility] Lymphocytes/100 WBC (Bld) 17.7 % Low 20.5-60.0 [facility] MCH Auto (RBC) [Entitic mass ]on 09-22-2024 MCH (RBC) [Entitic mass] MCH [Entitic mass] by Automated count 25.9-34.0 [facility] MCH (RBC) [Entitic mass] 31.3 pg 25.9-34.0 [facility] MCHC Auto (RBC) [Mass/Vol]on 09-22-2024 MCHC (RBC) [Mass/Vol] MCHC [Mass/volume] by Automated count 29.9-35.2 [facility] MCHC (RBC) [Mass/Vol] 34.9 g/dL 29.9-35.2 [facility] MCV Auto (RBC) [Entitic vol] on 09-22-2024 MCV (RBC) [Entitic vol] MCV [Entitic volume] by Automated count 80.0-94.0 [facility] MCV (RBC) [Entitic vol] 89.7 fL 80.0-94.0 [facility] Monocytes Auto (Bld) [#/Vol] on 09-22-2024 Monocytes (Bld) [#/Vol] Automated blood monocyte count High 0.3-0.8 [facility] Monocytes (Bld) [#/Vol] 1.2 10 3/uL High 0.3-0.8 [facility] Monocytes/100 WBC Auto (Bld) on 09-22-2024 Monocytes/100 WBC (Bld) Automated monocyte % High 1.7-12.0 [facility] Monocytes/100 WBC (Bld) 12.8 % High 1.7-12.0 [facility] Neutrophils Auto (Bld) [#/Vo l]on 09-22-2024 Neutrophils (Bld) [#/Vol] Neutrophils [#/volume] in Blood by Automated count High 1.4-6.5 [facility] Neutrophils (Bld) [#/Vol] 6.6 10 3/uL High 1.4-6.5 [facility] Neutrophils/100 WBC Auto (Bl d)on 09-22-2024 Neutrophils/100 WBC (Bld) Automated neutrophil % 43.0-75.0 [facility] Neutrophils/100 WBC (Bld) 68.3 % 43.0-75.0 [facility] No Panel Informationon 09-22 Vancomycin Level Trough 18.3 ug/mL 5.0-20.0 [facility] C-Reactive Protein, Quantitative 4.29 mg/dL High <=0.50 [facility] Eosinophils # (Auto) 0.0 10 3/uL 0.0-0.7 [facility] Immature Granulocyte # (Auto) 0.04 10 3/uL High 0.00-0.03 [facility] Platelet mean volume Auto (B ld) [Entitic vol]on 09-22-2024 Platelet mean volume (Bld) [Entitic vol] Platelet mean volume [Entitic volume] in Blood by Automated count 9.5-13.5 [facility] Platelet mean volume (Bld) [Entitic vol] 9.6 fL 9.5-13.5 [facility] Platelets Auto (Bld) [#/Vol] on 09-22-2024 Platelets (Bld) [#/Vol] Platelets [#/volume] in Blood by Automated count 150-450 [facility] Platelets (Bld) [#/Vol] 334 10 3/uL 150-450 [facility] RBC Auto (Bld) [#/Vol]on RBC (Bld) [#/Vol] Erythrocytes [#/volume] in Blood by Automated count Low 4.70-6.10 [facility] RBC (Bld) [#/Vol] 3.77 10 6/uL Low 4.70-6.10 [facility] Serum or plasma albumin/glob ulin mass ratioon 09-22-2024 Albumin/Globulin [Mass ratio] Serum or plasma albumin/globulin mass ratio [facility] Albumin/Globulin [Mass ratio] 0.4 {ratio} [facility] Serum or plasma anion gap de terminationon 09-22-2024 Anion gap [Moles/Vol] Serum or plasma anion gap determination [facility] Anion gap [Moles/Vol] 15.7 mmol/L [facility] Basophils Auto (Bld) [#/Vol] on 09-21-2024 Basophils (Bld) [#/Vol] Automated basophil count 0.0-0.1 [facility] Basophils (Bld) [#/Vol] 0.1 10 3/uL 0.0-0.1 [facility] Basophils/100 WBC Auto (Bld) on 09-21-2024 Basophils/100 WBC (Bld) Automated basophil % 0.2-2.0 [facility] Basophils/100 WBC (Bld) 0.6 % 0.2-2.0 [facility] Eosinophils/100 WBC Auto (Bl d)on 09-21-2024 Eosinophils/100 WBC (Bld) Automated eosinophil % Low 0.9-7.0 [facility] Eosinophils/100 WBC (Bld) 0.2 % Low 0.9-7.0 [facility] Erythrocyte distribution wid th Auto (RBC) [Ratio]on 09-21-2024 Erythrocyte distribution width (RBC) [Ratio] Erythrocyte distribution width [Ratio] by Automated count 11.0-15.0 [facility] Erythrocyte distribution width (RBC) [Ratio] 11.3 % 11.0-15.0 [facility] Estimated glomerular filtrat ion rate (GFR) non- Americanon 09-21-2024 GFR/1.73 sq M.predicted among non-blacks MDRD (S/P/Bld) [Vol rate/Area] Estimated glomerular filtration rate (GFR) non- >=60 mL/min/1.73m 2 [facility] GFR/1.73 sq M.predicted among non-blacks MDRD (S/P/Bld) [Vol rate/Area] mL/min/{1.73_m2} >=60 mL/min/1.73m 2 [facility] Globulin Calc (S) [Mass/Vol] on 09-21-2024 Globulin (S) [Mass/Vol] Serum globulin measurement by calculation (mass/volume) [facility] Globulin (S) [Mass/Vol] 5.6 g/dL [facility] Hematocrit Auto (Bld) [Volum e fraction]on 09-21-2024 Hematocrit (Bld) [Volume fraction] Hematocrit [Volume Fraction] of Blood by Automated count Low 42.0-54.0 [facility] Hematocrit (Bld) [Volume fraction] 34.2 % Low 42.0-54.0 [facility] Hemoglobin [Mass/volume] in Bloodon 09-21-2024 Hemoglobin (Bld) [Mass/Vol] Hemoglobin [Mass/volume] in Blood Low 14.0-18.0 [facility] Hemoglobin (Bld) [Mass/Vol] 11.6 g/dL Low 14.0-18.0 [facility] Laboratory - Chemistry and C hemistry - challengeon 09-21-2024 Albumin [Mass/Vol] 1.9 g/dL Low 3.4-5.0 [facility] ALP [Catalytic activity/Vol] 79 U/L 46-116 [facility] ALT [Catalytic activity/Vol] 16 U/L 16-63 [facility] AST [Catalytic activity/Vol] 21 U/L 15-37 [facility] Bilirubin [Mass/Vol] 0.5 mg/dL 0.2-1.0 [facility] Calcium [Mass/Vol] 8.8 mg/dL 8.5-10.1 [facility] Chloride [Moles/Vol] 103 mmol/L 98-107 [facility] CO2 [Moles/Vol] 24.5 mmol/L 21.0-32.0 [facility] Creatinine [Mass/Vol] 1.18 mg/dL 0.70-1.30 [facility] GFR/1.73 sq M.predicted MDRD (S/P/Bld) [Vol rate/Area] mL/min/{1.73_m2} >=60 mL/min/1.73m 2 [facility] Glucose [Mass/Vol] 106 mg/dL 74-106 [facility] Potassium [Moles/Vol] 4.6 mmol/L 3.5-5.1 [facility] Protein [Mass/Vol] 7.5 g/dL 6.4-8.2 [facility] Sodium [Moles/Vol] 137 mmol/L 136-145 [facility] Urea nitrogen [Mass/Vol] 24.0 mg/dL High 7.0-18.0 [facility] Urea nitrogen/Creatinine [Mass ratio] 20.3 mg/mg [facility] Laboratory - Hematology and Cell countson 09-21-2024 Immature granulocytes/100 WBC (Bld) 0.5 % 0.0-0.5 [facility] Leukocytes [#/volume] correc markie for nucleated erythrocytes in Blood by Automated counon 09-21-2024 WBC corrected for nucl RBC Auto (Bld) [#/Vol] Leukocytes [#/volume] corrected for nucleated erythrocytes in Blood by Automated coun High 4.0-11.0 [facility] WBC corrected for nucl RBC Auto (Bld) [#/Vol] 11.9 10 3/uL High 4.0-11.0 [facility] Lymphocytes Auto (Bld) [#/Vo l]on 09-21-2024 Lymphocytes (Bld) [#/Vol] Lymphocytes [#/volume] in Blood by Automated count 1.2-3.8 [facility] Lymphocytes (Bld) [#/Vol] 1.9 10 3/uL 1.2-3.8 [facility] Lymphocytes/100 WBC Auto (Bl d)on 09-21-2024 Lymphocytes/100 WBC (Bld) Lymphocytes/100 leukocytes in Blood by Automated count Low 20.5-60.0 [facility] Lymphocytes/100 WBC (Bld) 15.9 % Low 20.5-60.0 [facility] MCH Auto (RBC) [Entitic mass ]on 09-21-2024 MCH (RBC) [Entitic mass] MCH [Entitic mass] by Automated count 25.9-34.0 [facility] MCH (RBC) [Entitic mass] 30.8 pg 25.9-34.0 [facility] MCHC Auto (RBC) [Mass/Vol]on 09-21-2024 MCHC (RBC) [Mass/Vol] MCHC [Mass/volume] by Automated count 29.9-35.2 [facility] MCHC (RBC) [Mass/Vol] 33.9 g/dL 29.9-35.2 [facility] MCV Auto (RBC) [Entitic vol] on 09-21-2024 MCV (RBC) [Entitic vol] MCV [Entitic volume] by Automated count 80.0-94.0 [facility] MCV (RBC) [Entitic vol] 90.7 fL 80.0-94.0 [facility] Monocytes Auto (Bld) [#/Vol] on 09-21-2024 Monocytes (Bld) [#/Vol] Automated blood monocyte count High 0.3-0.8 [facility] Monocytes (Bld) [#/Vol] 1.5 10 3/uL High 0.3-0.8 [facility] Monocytes/100 WBC Auto (Bld) on 09-21-2024 Monocytes/100 WBC (Bld) Automated monocyte % High 1.7-12.0 [facility] Monocytes/100 WBC (Bld) 12.6 % High 1.7-12.0 [facility] Neutrophils Auto (Bld) [#/Vo l]on 09-21-2024 Neutrophils (Bld) [#/Vol] Neutrophils [#/volume] in Blood by Automated count High 1.4-6.5 [facility] Neutrophils (Bld) [#/Vol] 8.4 10 3/uL High 1.4-6.5 [facility] Neutrophils/100 WBC Auto (Bl d)on 09-21-2024 Neutrophils/100 WBC (Bld) Automated neutrophil % 43.0-75.0 [facility] Neutrophils/100 WBC (Bld) 70.2 % 43.0-75.0 [facility] No Panel Informationon 09-21 Eosinophils # (Auto) 0.0 10 3/uL 0.0-0.7 [facility] Immature Granulocyte # (Auto) 0.06 10 3/uL High 0.00-0.03 [facility] Platelet mean volume Auto (B ld) [Entitic vol]on 09-21-2024 Platelet mean volume (Bld) [Entitic vol] Platelet mean volume [Entitic volume] in Blood by Automated count 9.5-13.5 [facility] Platelet mean volume (Bld) [Entitic vol] 9.7 fL 9.5-13.5 [facility] Platelets Auto (Bld) [#/Vol] on 09-21-2024 Platelets (Bld) [#/Vol] Platelets [#/volume] in Blood by Automated count 150-450 [facility] Platelets (Bld) [#/Vol] 314 10 3/uL 150-450 [facility] RBC Auto (Bld) [#/Vol]on RBC (Bld) [#/Vol] Erythrocytes [#/volume] in Blood by Automated count Low 4.70-6.10 [facility] RBC (Bld) [#/Vol] 3.77 10 6/uL Low 4.70-6.10 [facility] Serum or plasma albumin/glob ulin mass ratioon 09-21-2024 Albumin/Globulin [Mass ratio] Serum or plasma albumin/globulin mass ratio [facility] Albumin/Globulin [Mass ratio] 0.3 {ratio} [facility] Serum or plasma anion gap de terminationon 09-21-2024 Anion gap [Moles/Vol] Serum or plasma anion gap determination [facility] Anion gap [Moles/Vol] 14.1 mmol/L [facility] Basophils Auto (Bld) [#/Vol] on 09-20-2024 Basophils (Bld) [#/Vol] Automated basophil count 0.0-0.1 [facility] Basophils (Bld) [#/Vol] 0.1 10 3/uL 0.0-0.1 [facility] Basophils/100 WBC Auto (Bld) on 09-20-2024 Basophils/100 WBC (Bld) Automated basophil % 0.2-2.0 [facility] Basophils/100 WBC (Bld) 0.8 % 0.2-2.0 [facility] Eosinophils/100 WBC Auto (Bl d)on 09-20-2024 Eosinophils/100 WBC (Bld) Automated eosinophil % Low 0.9-7.0 [facility] Eosinophils/100 WBC (Bld) 0.0 % Low 0.9-7.0 [facility] Erythrocyte distribution wid th Auto (RBC) [Ratio]on 09-20-2024 Erythrocyte distribution width (RBC) [Ratio] Erythrocyte distribution width [Ratio] by Automated count 11.0-15.0 [facility] Erythrocyte distribution width (RBC) [Ratio] 11.2 % 11.0-15.0 [facility] Estimated glomerular filtrat ion rate (GFR) non- Americanon 09-20-2024 GFR/1.73 sq M.predicted among non-blacks MDRD (S/P/Bld) [Vol rate/Area] Estimated glomerular filtration rate (GFR) non- Low >=60 mL/min/1.73m 2 [facility] GFR/1.73 sq M.predicted among non-blacks MDRD (S/P/Bld) [Vol rate/Area] 52 mL/min/{1.73_m2} Low >=60 mL/min/1.73m 2 [facility] Globulin Calc (S) [Mass/Vol] on 09-20-2024 Globulin (S) [Mass/Vol] Serum globulin measurement by calculation (mass/volume) [facility] Globulin (S) [Mass/Vol] 6.6 g/dL [facility] Hematocrit Auto (Bld) [Volum e fraction]on 09-20-2024 Hematocrit (Bld) [Volume fraction] Hematocrit [Volume Fraction] of Blood by Automated count Low 42.0-54.0 [facility] Hematocrit (Bld) [Volume fraction] 41.1 % Low 42.0-54.0 [facility] Hemoglobin [Mass/volume] in Bloodon 09-20-2024 Hemoglobin (Bld) [Mass/Vol] Hemoglobin [Mass/volume] in Blood 14.0-18.0 [facility] Hemoglobin (Bld) [Mass/Vol] 14.0 g/dL 14.0-18.0 [facility] Laboratory - Chemistry and C hemistry - challengeon 09-20-2024 Albumin [Mass/Vol] 2.4 g/dL Low 3.4-5.0 [facility] ALP [Catalytic activity/Vol] 101 U/L 46-116 [facility] ALT [Catalytic activity/Vol] 25 U/L 16-63 [facility] AST [Catalytic activity/Vol] 28 U/L 15-37 [facility] Bilirubin [Mass/Vol] 0.7 mg/dL 0.2-1.0 [facility] Calcium [Mass/Vol] 9.6 mg/dL 8.5-10.1 [facility] Chloride [Moles/Vol] 99 mmol/L 98-107 [facility] CO2 [Moles/Vol] 28.1 mmol/L 21.0-32.0 [facility] Creatinine [Mass/Vol] 1.37 mg/dL High 0.70-1.30 [facility] GFR/1.73 sq M.predicted MDRD (S/P/Bld) [Vol rate/Area] mL/min/{1.73_m2} >=60 mL/min/1.73m 2 [facility] Glucose [Mass/Vol] 130 mg/dL High 74-106 [facility] Potassium [Moles/Vol] 4.5 mmol/L 3.5-5.1 [facility] Protein [Mass/Vol] 9.0 g/dL High 6.4-8.2 [facility] Sodium [Moles/Vol] 132 mmol/L Low 136-145 [facility] Urea nitrogen [Mass/Vol] 18.0 mg/dL 7.0-18.0 [facility] Urea nitrogen/Creatinine [Mass ratio] 13.1 mg/mg [facility] Laboratory - Hematology and Cell countson 09-20-2024 ESR (Bld) [Velocity] mm/h High <=20 [facility] Immature granulocytes/100 WBC (Bld) 0.3 % 0.0-0.5 [facility] Leukocytes [#/volume] correc markie for nucleated erythrocytes in Blood by Automated counon 09-20-2024 WBC corrected for nucl RBC Auto (Bld) [#/Vol] Leukocytes [#/volume] corrected for nucleated erythrocytes in Blood by Automated coun High 4.0-11.0 [facility] WBC corrected for nucl RBC Auto (Bld) [#/Vol] 11.9 10 3/uL High 4.0-11.0 [facility] Lymphocytes Auto (Bld) [#/Vo l]on 09-20-2024 Lymphocytes (Bld) [#/Vol] Lymphocytes [#/volume] in Blood by Automated count 1.2-3.8 [facility] Lymphocytes (Bld) [#/Vol] 1.9 10 3/uL 1.2-3.8 [facility] Lymphocytes/100 WBC Auto (Bl d)on 09-20-2024 Lymphocytes/100 WBC (Bld) Lymphocytes/100 leukocytes in Blood by Automated count Low 20.5-60.0 [facility] Lymphocytes/100 WBC (Bld) 15.9 % Low 20.5-60.0 [facility] MCH Auto (RBC) [Entitic mass ]on 09-20-2024 MCH (RBC) [Entitic mass] MCH [Entitic mass] by Automated count 25.9-34.0 [facility] MCH (RBC) [Entitic mass] 30.8 pg 25.9-34.0 [facility] MCHC Auto (RBC) [Mass/Vol]on 09-20-2024 MCHC (RBC) [Mass/Vol] MCHC [Mass/volume] by Automated count 29.9-35.2 [facility] MCHC (RBC) [Mass/Vol] 34.1 g/dL 29.9-35.2 [facility] MCV Auto (RBC) [Entitic vol] on 09-20-2024 MCV (RBC) [Entitic vol] MCV [Entitic volume] by Automated count 80.0-94.0 [facility] MCV (RBC) [Entitic vol] 90.5 fL 80.0-94.0 [facility] Monocytes Auto (Bld) [#/Vol] on 09-20-2024 Monocytes (Bld) [#/Vol] Automated blood monocyte count High 0.3-0.8 [facility] Monocytes (Bld) [#/Vol] 1.4 10 3/uL High 0.3-0.8 [facility] Monocytes/100 WBC Auto (Bld) on 09-20-2024 Monocytes/100 WBC (Bld) Automated monocyte % High 1.7-12.0 [facility] Monocytes/100 WBC (Bld) 12.1 % High 1.7-12.0 [facility] Neutrophils Auto (Bld) [#/Vo l]on 09-20-2024 Neutrophils (Bld) [#/Vol] Neutrophils [#/volume] in Blood by Automated count High 1.4-6.5 [facility] Neutrophils (Bld) [#/Vol] 8.5 10 3/uL High 1.4-6.5 [facility] Neutrophils/100 WBC Auto (Bl d)on 09-20-2024 Neutrophils/100 WBC (Bld) Automated neutrophil % 43.0-75.0 [facility] Neutrophils/100 WBC (Bld) 70.9 % 43.0-75.0 [facility] No Panel Informationon 09-20 C-Reactive Protein, Quantitative 6.32 mg/dL High <=0.50 [facility] Eosinophils # (Auto) 0.0 10 3/uL 0.0-0.7 [facility] Immature Granulocyte # (Auto) 0.04 10 3/uL High 0.00-0.03 [facility] Platelet mean volume Auto (B ld) [Entitic vol]on 09-20-2024 Platelet mean volume (Bld) [Entitic vol] Platelet mean volume [Entitic volume] in Blood by Automated count 9.5-13.5 [facility] Platelet mean volume (Bld) [Entitic vol] 9.5 fL 9.5-13.5 [facility] Platelets Auto (Bld) [#/Vol] on 09-20-2024 Platelets (Bld) [#/Vol] Platelets [#/volume] in Blood by Automated count 150-450 [facility] Platelets (Bld) [#/Vol] 401 10 3/uL 150-450 [facility] RBC Auto (Bld) [#/Vol]on RBC (Bld) [#/Vol] Erythrocytes [#/volume] in Blood by Automated count Low 4.70-6.10 [facility] RBC (Bld) [#/Vol] 4.54 10 6/uL Low 4.70-6.10 [facility] Serum or plasma albumin/glob ulin mass ratioon 09-20-2024 Albumin/Globulin [Mass ratio] Serum or plasma albumin/globulin mass ratio [facility] Albumin/Globulin [Mass ratio] 0.4 {ratio} [facility] Serum or plasma anion gap de terminationon 09-20-2024 Anion gap [Moles/Vol] Serum or plasma anion gap determination [facility] Anion gap [Moles/Vol] 9.4 mmol/L [facility] Creatinine [Mass/volume] in UrineOrdered By: Yolette Pierre on 06-18-2024 Creatinine (U) [Mass/Vol] Creatinine [Mass/volume] in Urine [facility] Comment on above: No reference range e stablished MicroAlb Creat Ratio,Uon Albumin DL <= 20 mg/L (U) [Mass/Vol] mg/dL High 0.0-1.[address] [facility] Comment on above: Performed By: #### U RMACRERAT #### [facility] [address] Creatinine, Urine (Random) 123.00 mg/dL Normal [facility] Comment on above: Result Comment: No r eference range established Performed By: #### U RMACRERAT #### [facility] [address] Microalbumin/Creati nine Ratio Not performed Normal 0.0-30.0 [facility] Comment on above: Result Comment: PERF ORMED BY: [place] [address] PATHOLOGIST TIN POURER JAMIL BONILLA M.D. Performed By: #### U RMACRERAT #### [address] Microalbumin [Mass/volume] i n UrineOrdered By: Yolette Pierre on 06-18-2024 Albumin DL <= 20 mg/L (U) [Mass/Vol] Microalbumin [Mass/volume] in Urine High 0.0-1.8 [facility] Urine microalbumin/creatinin e mass ratioOrdered By: Yolette Pierre on 06-18-2024 Albumin/Creatinine DL <= 20 mg/L (U) [Mass ratio] Urine microalbumin/creatini ne mass ratio [facility] Comment on above: Test not performed HbA1c HPLC (Bld) [Mass fract ion]on 04-23-2024 HbA1c (Bld) [Mass fraction] Hemoglobin A1c/Hemoglobin.total in Blood by HPLC [facility] No Panel Informationon 04-23 Bedside Glucose [address] [facility] [address] ABDOMEN WO CONTon 024 CT ABDOMEN [...] Camarena MD on 04/11/2024 11:15 AM Normal [facility] CT CHEST WO CONTon CT CHEST [...] Guido MD on 04/11/2024 11:15 AM Normal [facility] HbA1c HPLC (Bld) [Mass fract ion]on 09-10-2023 HbA1c (Bld) [Mass fraction] 6.4 % [facility] No Panel Informationon 09-09 Bedside Glucose 126 [facility] A1C HEMOGLOBINon 06-05-2023 HbA1c (Bld) [Mass fraction] 6.9 % [employer] Other Glucose - FINGER STICKon Glucose [Mass/Vol] 132 mg/dL [employer] Other HbA1c (Bld) [Mass fraction]o n 06-05-2023 A1C HEMOGLOBIN [employer] Other A1C HEMOGLOBINon 02-27-2023 HbA1c (Bld) [Mass fraction] 6.4 % [employer] Other Creatinine [Mass/volume] in UrineOrdered By: Yolette Pierre on 02-27-2023 Creatinine (U) [Mass/Vol] 89.0 mg/dL 14.0-26.0 [facility] Glucose - FINGER STICKon Glucose [Mass/Vol] 132 mg/dL [employer] Other HbA1c (Bld) [Mass fraction]o n 02-27-2023 A1C HEMOGLOBIN [employer] Other [employer] Creat Ratio,Uon Creatinine (U) [Mass/Vol] 89.5357978 mg/dL High 14.0-26.0 mg/dL [employer] Other [employer] Creat Ratio,UOrdere d By: Yolette Pierre on 02-27-2023 Albumin DL <= 20 mg/L (U) [Mass/Vol] mg/dL 0.0-1.8 [facility] Albumin/Creatinine DL <= 20 mg/L (U) [Mass ratio] TNP [facility] Comment on above: Test not performed Glucose - FINGER STICKon Glucose [Mass/Vol] 160 mg/dL [employer] Other A1C HEMOGLOBINon 10-03-2022 HbA1c (Bld) [Mass fraction] 7.0 % [employer] Other Glucose - FINGER STICKon Glucose [Mass/Vol] 88 mg/dL [employer] Other HbA1c (Bld) [Mass fraction]o n 10-03-2022 A1C HEMOGLOBIN [employer] Other Glucose - FINGER STICKon Glucose [Mass/Vol] 137 mg/dL [employer] Other A1C HEMOGLOBINon 05-05-2022 HbA1c (Bld) [Mass fraction] 7.5 % [employer] Other Glucose - FINGER STICKon Glucose [Mass/Vol] 199 mg/dL [employer] Other HbA1c (Bld) [Mass fraction]o n 05-05-2022 A1C HEMOGLOBIN [employer] Other A1C HEMOGLOBINon 02-03-2022 HbA1c (Bld) [Mass fraction] 7.7 % [employer] Other Glucose - FINGER STICKon Glucose - FINGER STICK [employer] Other A1C HEMOGLOBINon 11-01-2021 HbA1c (Bld) [Mass fraction] 8.1 % [employer] Other Glucose - FINGER STICKon Glucose [Mass/Vol] 232 mg/dL [employer] Other HbA1c (Bld) [Mass fraction]o n 11-01-2021 A1C HEMOGLOBIN [employer] Other A1C HEMOGLOBINon 07-20-2021 HbA1c (Bld) [Mass fraction] 8.0 % [employer] Other Glucose - FINGER STICKon Glucose [Mass/Vol] 159 mg/dL [employer] Other HbA1c (Bld) [Mass fraction]o n 07-20-2021 A1C HEMOGLOBIN [employer] Other ACETONE SERUMon 04-08-2020 ACETONE SMALL Normal NEGATIVE [facility] Comment on above: Performed By: #### A CETON ####[facility] [id number] [place], [place] [address]Zckdye Brii BNPon 04-08-2020 Natriuretic peptide B (Bld) [Mass/Vol] 72.0 pg/mL Normal <=900.0 [facility] Comment on above: Performed By: #### C MP, TSH, TROP, BNP #### [facility] [address] [place], [place] [address] Kisha Brii CBC AUTO DIFFon 04-08-2020 Basophils (Bld) [#/Vol] 0.0 103/ul Normal 0.0-0.1 [facility] Comment on above: Performed By: #### C BC #### [facility] [address] [place], [place] [address] Kisha Brii Basophils/100 WBC (Bld) 0.4 % Normal 0.2-2.0 [facility] Comment on above: Performed By: #### C BC #### [facility] [address] [place], [place] [address] Kisha Brii Eosinophils (Bld) [#/Vol] 0.0 103/ul Normal 0.0-0.7 [facility] Comment on above: Performed By: #### C BC #### [facility] [address] [place], [place] [address] Kisha Brii Eosinophils/100 WBC (Bld) 0.0 % Critically low 0.9-7.0 [facility] Comment on above: Performed By: #### C BC #### [facility] [address] [place] [address] Kisha Brii Erythrocyte distribution width (RBC) [Ratio] 13.3 % Normal 11.0-15.0 [facility] Comment on above: Performed By: #### C BC #### [facility] [address] [place] [address] Kisha Brii Hematocrit (Bld) [Volume fraction] 45.3 % Normal 42.0-54.0 [facility] Comment on above: Performed By: #### C BC #### [facility] [address] [place] [address] Kisha Brii Hemoglobin (Bld) [Mass/Vol] 15.9 g/dL Normal 14.0-18.0 [facility] Comment on above: Performed By: #### C BC #### [facility] [address] [place] [address] Kisha Brii IG # 0.03 10e3/ul Normal 0.00-0.03 [facility] Comment on above: Performed By: #### C BC #### [facility] [address] [place] [address] Kisha Brii IG % 0.6 % Critically high 0.0-0.5 [facility] Comment on above: Performed By: #### C BC #### [facility] [address] [place] [address] Kisha Brii Lymphocytes (Bld) [#/Vol] 1.8 103/ul Normal 1.2-3.8 [facility] Comment on above: Performed By: #### C BC #### [facility] [address] [place] [address] Kisha Brii Lymphocytes/100 WBC (Bld) 37.3 % Normal 20.5-60.0 [facility] Comment on above: Performed By: #### C BC #### [facility] [address] [place], [place] [id number] Kisha Brii MANUAL DIFF REQ NO Normal [facility] Comment on above: Performed By: #### C BC #### [facility] [address] [place] [id number] Kishaunruly Teresa MCH (RBC) [Entitic mass] 31.4 pg Normal 25.9-34.0 [facility] Comment on above: Performed By: #### C BC #### [facility] [facility] [address] [place], [place] [id number] Kishaunruly Costelloen MCHC (RBC) [Mass/Vol] 35.1 g/dL Normal 29.9-35.2 [facility] Comment on above: Performed By: #### C BC #### [facility] [address] [place], [place] [address] Kishaunruly Teresa MCV (RBC) [Entitic vol] 89.3 fL Normal 80.0-94.0 [facility] Comment on above: Performed By: #### C BC #### [facility] [address] [place], [place] [address] Kisha Brii Monocytes (Bld) [#/Vol] 0.7 103/ul Normal 0.3-0.8 [facility] Comment on above: Performed By: #### C BC #### [facility] [address] [place], [place] [address] Kisha Brii Monocytes/100 WBC (Bld) 14.5 % Critically high 1.7-12.0 [facility] Comment on above: Performed By: #### C BC #### [facility] [address] [place], [place] [address] Kisha Brii Neutrophils (Bld) [#/Vol] 2.3 103/ul Normal 1.4-6.5 [facility] Comment on above: Performed By: #### C BC #### [facility] [address] [place], [place] [address] Kisha Brii Neutrophils/100 WBC (Bld) 47.2 % Normal 43.0-75.0 [facility] Comment on above: Performed By: #### C BC #### [facility] [address] [place], [place] [address] Kisha Brii Platelet mean volume (Bld) [Entitic vol] 11.7 fL Normal 9.5-13.5 [facility] Comment on above: Performed By: #### C BC #### [facility] [address] [place], [place] [address] Kisha Teresa Platelets (Bld) [#/Vol] 157 103/ul Normal 150-450 [facility] Comment on above: Performed By: #### C BC #### [facility] [address] [place], [place] [address] Kisha Teresa RBC (Bld) [#/Vol] 5.07 106/ul Normal 4.70-6.10 [facility] Comment on above: Performed By: #### C BC #### [facility] [address] [place], [place] [address] Kisha Teresa WBC (Bld) [#/Vol] 4.9 103/ul Normal 4.0-11.0 [facility] Comment on above: Performed By: #### C BC #### [facility] [address] [place], [place] [address] Kisha Teresa CTA CHEST WO W CONon [...] STEVEN WAN Date: 2020-04-08 12:41 Normal [facility] D-DIMERon 04-08-2020 D-DIMER COMMENTS SEE BELOW Normal [facility] Comment on above: Result Comment: Incr [...] Performed By: #### D DIM, PTT, PT ####[facility] [id number] [place] [id number] Teresa Fibrin D-dimer FEU IA (Bld) [Mass/Vol] 1.16 ug/mL Critically high 0.19-0.50 [facility] Comment on above: Result Comment: test repeated critcal value verified Performed By: #### D DIM, PTT, PT ####[facility] [address] [place] [id number] Teresa PH VENOUS BLOODon 04-08-2020 PCO2 VENOUS 46.4 mmHg Normal 40.0-52.0 [facility] Comment on above: Performed By: #### P HVEN #### [facility] [address] [place] [id number] Kisha Teresa pH VENOUS 7.37 Normal 7.33-7.43 [facility] Comment on above: Performed By: #### P HVEN #### [facility] [address] [place] [id number] Kisha Teresa PROF 14(COMP METB)on 020 Albumin [Mass/Vol] 2.4 g/dL Critically low 3.5-5.0 Th [facility] Comment on above: Performed By: #### C MP, TSH, TROP, BNP #### [facility] [address] [place] [id number] Kisha Brii Albumin/Globulin [Mass ratio] 0.4 {ratio} Normal [facility] Comment on above: Performed By: #### C MP, TSH, TROP, BNP #### [facility] [address] [place] [address] Kisha Brii ALP [Catalytic activity/Vol] 68 U/L Normal 38-126 [facility] Comment on above: Performed By: #### C MP, TSH, TROP, BNP #### [facility] [address] [place] [address] Kisha Brii ALT [Catalytic activity/Vol] 33 U/L Normal 21-72 [facility] Comment on above: Performed By: #### C MP, TSH, TROP, BNP #### [facility] [address] [place] [address] Kisha Brii Anion gap [Moles/Vol] 10.1 mmol/L Normal [facility] Comment on above: Performed By: #### C MP, TSH, TROP, BNP #### [facility] [address] [place] [address] Kisha Brii AST [Catalytic activity/Vol] 50 U/L Normal 17-59 [facility] Comment on above: Performed By: #### C MP, TSH, TROP, BNP #### [facility] [address] [place] [address] Kisha Brii Bilirubin Ql (U) 0.9 mg/dL Normal 0.2-1.3 [facility] Comment on above: Performed By: #### C MP, TSH, TROP, BNP #### [facility] [address] [place] [address] Kisha Brii Calcium [Mass/Vol] 8.7 mg/dL Normal 8.4-10.2 [facility] Comment on above: Performed By: #### C MP, TSH, TROP, BNP #### [facility] [address] [place] [address] Kisha Brii Chloride [Moles/Vol] 96 mmol/L Critically low 98-107 [facility] Comment on above: Performed By: #### C MP, TSH, TROP, BNP #### [facility] [address] [place], [place] [address] Kisha Brii CO2 [Moles/Vol] 27.9 mmol/L Normal 22.0-30.0 [facility] Comment on above: Performed By: #### C MP, TSH, TROP, BNP #### [facility] [address] [place] [address] Kisha Brii Creatinine [Mass/Vol] 1.13 mg/dL Normal 0.66-1.25 [facility] Comment on above: Performed By: #### C MP, TSH, TROP, BNP #### [facility] [address] [place] [address] Kisha Brii EGFR-AF BANGLADESHI >60 Normal >=60 [facility] Comment on above: Performed By: #### C MP, TSH, TROP, BNP #### [facility] [address] [place] [address] Kisha Brii EGFR-NON AF BANGLADESHI >60 Normal >=60 [facility] Comment on above: Performed By: #### C MP, TSH, TROP, BNP #### [facility] [address] [place] [address] Kisha Brii Globulin (S) [Mass/Vol] 5.8 g/dL Normal [facility] Comment on above: Performed By: #### C MP, TSH, TROP, BNP #### [facility] [address] [place] [address] Kisha Brii Glucose [Mass/Vol] 263 mg/dL Critically high 74-106 [facility] Comment on above: Performed By: #### C MP, TSH, TROP, BNP #### [facility] [address] [place] [address] Kisha Brii Potassium [Moles/Vol] 3.0 mmol/L Critically low 3.4-5.0 [facility] Comment on above: Performed By: #### C MP, TSH, TROP, BNP #### [facility] [address] [place] [address] Kisha Brii Protein [Mass/Vol] 8.2 g/dL Normal 6.1-8.2 [facility] Comment on above: Performed By: #### C MP, TSH, TROP, BNP #### [facility] [address] [place], [place] [address] Kisha Brii Sodium [Moles/Vol] 131 mmol/L Critically low 137-145 Th [facility] Comment on above: Performed By: #### C MP, TSH, TROP, BNP #### [facility] [address] [place], [place] [address] Kisha Brii Urea nitrogen [Mass/Vol] 15.0 mg/dL Normal 9.0-20.0 [facility] Comment on above: Performed By: #### C MP, TSH, TROP, BNP #### [facility] [address] [place], [place] [address] Kisha Brii Urea nitrogen/Creatinine [Mass ratio] 13.3 mg/mg Normal [facility] Comment on above: Performed By: #### C MP, TSH, TROP, BNP #### [facility] [address] [place] [id number] Kisha Costelloen PROTIMEon 04-08-2020 INR Coag (PPP) [Relative time] 1.03 {INR} Normal [facility] Comment on above: Performed By: #### D DIM, PTT, PT ####[facility] [address] [place], [place] [address]Irglim Brii PT Coag (PPP) [Time] 10.9 s Normal 9.0-11.6 [facility] Comment on above: Performed By: #### D DIM, PTT, PT ####[facility] [address] [place] [id number] Brii PT Coag (PPP) [Time] SEE BELOW Normal [facility] Comment on above: Result Comment: PIO RED INR: 2.0 - 3.0 CONDITIONS NOT LISTED BELOW 2.5 - 3.5 FOR PROSTHETIC HEART VALVE REPLACEMENT 2.5 - 3.5 RECURRENT THROMBOSIS Performed By: #### D DIM, PTT, PT ####[facility] [address] [place], [place] [address]Udeshm Karen PTTon 04-08-2020 aPTT Coag (Bld) [Time] PLEASE NOTE: NORMAL RANGE CHANGE 03-31-2015 DUE TO REAGENT LOT CHANGE Normal [facility] Comment on above: Performed By: #### D DIM, PTT, PT #### [facility] [address] [place] [address] Kisha Teresa aPTT Coag (Bld) [Time] 26.7 s Normal 22.3-36.2 [facility] Comment on above: Performed By: #### D DIM, PTT, PT #### [facility] [address] [place] [address] Kisha Teresa Rapid Covid-19 PCR (CVDRPD)o n 04-08-2020 [employer] LDT Info SEE BELOW Normal [facility] Comment on above: Result Comment: This test is not yet approved or cleared by the [place] Food and Drug Administration (FDA) . This test was developed by [employer], [facility]. The performance characteristics of this test were validated by [facility]. The results are not intended to be used as the sole means for clinical diagnosis or patient management decisions. [facility] is authorized under Clinical Laboratory Improvement Amendments (CLIA) to perform high-complexity testing. When diagnostic testing is negative, the possibility of a false negative should be considered in the context of a patients recent exposures and the presence of clinical signs and symptoms consistent with SARS-CoV-2. Performed By: #### C VDRPD #### [facility] [address] [place] [address] Kisha Teresa SARS-CoV-2 DETECTED NOT DETECTED [facility] Comment on above: Result Comment: . Performed By: #### C VDRPD #### [facility] [address] [place] [address] Kisha Brii TROPONIN - Ion 04-08-2020 Troponin I.cardiac [Mass/Vol] SEE BELOW Normal [facility] Comment on above: Result Comment: <0.0 34 ng/ml NEGATIVE 0.034-0.119 INDETERMINATE 0.120 AMI CUT OFF Performed By: #### C MP, TSH, TROP, BNP #### [facility] [address] [place] [address] Kisha Brii Troponin I.cardiac [Mass/Vol] ng/mL Normal <=0.034 [facility] Comment on above: Performed By: #### C MP, TSH, TROP, BNP #### [facility] [address] [place], [place] [address] Kisha Teresa TSHon 04-08-2020 TSH Qn 2.851 uIU/mL Normal 0.470-4.680 [facility] Comment on above: Performed By: #### C MP, TSH, TROP, BNP #### [facility] [address] TSH Qn SEE BELOW Normal [facility] Comment on above: Result Comment: <0.3 4 UIU/ml HYPERTHYROID 0.34-5.60 UIU/ml EUTHYROID >5.60 UIU/ml HYPOTHYROID Performed By: #### C MP, TSH, TROP, BNP #### [facility] [address] [place] [address] Kisha Teresa XR CHEST 1 Von 04-08-2020 XR CHEST [...] by: STEVEN WAN Date: 2020-04-08 11:49 Normal [facility] Vital Signs Date Time Vital Sign Value Performing Clinician Faci lity 10-23-2024 10:55-0400 Body height 175.3 cm Jamil Culver MD Work Phone: [facility] 10-23-2024 [id number] Body mass index (BMI) [Ratio] 23.63 kg/m2 Jamil Culver MD Work Phone: [facility] 10-23-2024 [id number] Body weight 72.58 kg Jamil Culver MD Work Phone: [facility] 10-23-2024 10:55-0400 Diastolic blood pressure 76 mm[Hg] Jamil Culver MD Work Phone: [facility] 10-23-2024 10:55-0400 Heart rate 72 /min Jamil Culver MD Work Phone: [facility] 10-23-2024 10:55-0400 Systolic blood pressure 112 mm[Hg] Jamil Culver MD Work Phone: [facility] 10-09-2024 08:41-0400 Body height 173.99 cm Mayra Spears DPM Work Phone: [facility] 10-09-2024 08:41-0400 Body mass index (BMI) [Ratio] 24 kg/m2 Mayra Spears DPM Work Phone: [facility] 10-09-2024 08:41-0400 Body weight 72.6 kg Mayra Spears DPM Work Phone: [facility] 10-09-2024 08:41-0400 Diastolic blood pressure 66 mm[Hg] Mayra Spears DPM Work Phone: [facility] 10-09-2024 08:41-0400 Heart rate 88 /min Mayra Spears DPM Work Phone: [facility] 10-09-2024 08:41-0400 Respiratory rate 18 /min Mayra Spears DPM Work Phone: [facility] 10-09-2024 08:41-0400 SaO2% (BldA) [Mass fraction] 98 % Mayra Spears DPM Work Phone: [facility] 10-09-2024 08:41-0400 Systolic blood pressure 91 mm[Hg] Mayra Spears DPM Work Phone: [facility] 06-18-2024 08:41-0500 Body height 173.99 cm [facility] 06-18-2024 08:41-0500 Body mass index (BMI) [Ratio] 26.9 kg/m2 [facility] 06-18-2024 08:41-0500 Body weight 81.4 kg [facility] 06-18-2024 08:41-0500 Diastolic blood pressure 86 mm[Hg] [facility] 06-18-2024 08:41-0500 Heart rate 74 /min [facility] 06-18-2024 08:41-0500 Respiratory rate 18 /min [facility] 06-18-2024 08:41-0500 SaO2% (BldA) [Mass fraction] 99 % [facility] 06-18-2024 08:41-0500 Systolic blood pressure 138 mm[Hg] [facility] 04-23-2024 09:26-0500 Body height 173.99 cm [facility] 04-23-2024 09:26-0500 Body mass index (BMI) [Ratio] 26.8 kg/m2 [facility] 04-23-2024 09:26-0500 Body weight 81.27 kg [facility] 04-23-2024 09:26-0500 Diastolic blood pressure 98 mm[Hg] [facility] 04-23-2024 09:26-0500 Heart rate 83 /min [facility] 04-23-2024 09:26-0500 Respiratory rate 18 /min [facility] 04-23-2024 09:26-0500 SaO2% (BldA) [Mass fraction] 98 % [facility] 04-23-2024 09:26-0500 Systolic blood pressure 142 mm[Hg] [facility] 04-07-2024 08:17-0500 Body height 175.3 cm [employer] DO Work Phone: [facility] 04-07-2024 08:17-0500 Body mass index (BMI) [Ratio] 26.11 kg/m2 [employer] DO Work Phone: [facility] 04-07-2024 08:17-0500 Body weight 80.2 kg [employer] DO Work Phone: [facility] 04-07-2024 08:17-0500 Diastolic blood pressure 88 mm[Hg] Ezekieler Edi DO Work Phone: [facility] 04-07-2024 08:17-0500 Heart rate 84 /min Christopher Edi DO Work Phone: [facility] 04-07-2024 08:17-0500 SaO2% (BldA) [Mass fraction] 98 % Christopher Edi DO Work Phone: [facility] 04-07-2024 08:17-0500 Systolic blood pressure 150 mm[Hg] Christopher Edi DO Work Phone: [facility] 01-21-2024 09:58-0400 Body height 173.99 cm [facility] 01-21-2024 09:58-0400 Body mass index (BMI) [Ratio] 25.5 kg/m2 [facility] 01-21-2024 09:58-0400 Body weight 77.28 kg [facility] 01-21-2024 09:58-0400 Diastolic blood pressure 91 mm[Hg] [facility] 01-21-2024 09:58-0400 Heart rate 82 /min [facility] 01-21-2024 09:58-0400 Respiratory rate 18 /min [facility] 01-21-2024 09:58-0400 SaO2% (BldA) [Mass fraction] 99 % [facility] 01-21-2024 09:58-0400 Systolic blood pressure 137 mm[Hg] [facility] 09-10-2023 08:17-0400 Body height 173.99 cm [facility] 09-10-2023 08:17-0400 Body mass index (BMI) [Ratio] 26.9 kg/m2 [facility] 09-10-2023 08:17-0400 Body weight 81.33 kg [facility] 09-10-2023 08:17-0400 Diastolic blood pressure 91 mm[Hg] [facility] 09-10-2023 08:17-0400 Heart rate 87 /min [facility] 09-10-2023 08:17-0400 Respiratory rate 18 /min [facility] 09-10-2023 08:17-0400 SaO2% (BldA) [Mass fraction] 99 % [facility] 09-10-2023 08:17-0400 Systolic blood pressure 134 mm[Hg] [facility] 06-05-2023 09:15-0500 Body height 173.99 cm Yolette Scally Other [facility] 06-05-2023 09:15-0500 Body mass index (BMI) [Ratio] 25.9 kg/m2 Yolette Scally Other [employer] Other 06-05-2023 09:15-0500 Body weight 78.43 kg Yolette Scally Other [employer] Other 06-05-2023 09:15-0500 Body weight 78.42 kg MD Le Rodgers Work Phone: [facility] 06-05-2023 09:15-0500 Diastolic blood pressure 83 mm[Hg] Yolette Scally Other [facility] 06-05-2023 09:15-0500 Respiratory rate 18 /min Yolette Scally Other [employer] Other 06-05-2023 09:15-0500 SaO2% (BldA) [Mass fraction] 99 % Yolette Scally Other [employer] Other 06-05-2023 09:15-0500 Systolic blood pressure 119 mm[Hg] Yolette Scally Other [facility] 02-27-2023 10:45-0400 Body height 173.99 cm Yolette Scally Other [employer] Other 10-24-2023 10:45-0400 Body mass index (BMI) [Ratio] 26.07 kg/m2 Yolette Scally Other [employer] Other 02-27-2023 10:45-0400 Body weight 78.93 kg Yolette Scally Other [employer] Other 02-27-2023 10:45-0400 Diastolic blood pressure 86 mm[Hg] Yolette Scally Other [employer] Other 02-27-2023 10:45-0400 Respiratory rate 18 /min Yolette Scally Other [employer] Other 02-27-2023 10:45-0400 SaO2% (BldA) [Mass fraction] 99 % Yolette Scally Other [employer] Other 02-27-2023 10:45-0400 Systolic blood pressure 126 mm[Hg] Yolette Scally Other [employer] Other 12-19-2022 08:45-0400 Body height 173.99 cm Yolette Scally Other [employer] Other 12-19-2022 08:45-0400 Body mass index (BMI) [Ratio] 26.37 kg/m2 Yolette Scally Other [employer] Other 12-19-2022 08:45-0400 Body weight 79.83 kg Yolette Scally Other [employer] Other 12-19-2022 08:45-0400 Diastolic blood pressure 95 mm[Hg] Yolette Scally Other [employer] Other 12-19-2022 08:45-0400 Respiratory rate 18 /min Yolette Scally Other [employer] Other 12-19-2022 08:45-0400 SaO2% (BldA) [Mass fraction] 98 % Yolette Scally Other [employer] Other 12-19-2022 08:45-0400 Systolic blood pressure 149 mm[Hg] Yolette Scally Other [employer] Other 10-03-2022 08:15-0400 Body height 173.99 cm Yolette Scally Other [employer] Other 10-03-2022 08:15-0400 Body mass index (BMI) [Ratio] 27.3 kg/m2 Yolette Scally Other [employer] Other 10-03-2022 08:15-0400 Body weight 82.65 kg Yolette Scally Other [employer] Other 10-03-2022 08:15-0400 Diastolic blood pressure 90 mm[Hg] Yolette Scally Other [employer] Other 10-03-2022 08:15-0400 Respiratory rate 18 /min Yolette Scally Other [employer] Other 10-03-2022 08:15-0400 SaO2% (BldA) [Mass fraction] 99 % Yolette Scally Other [employer] Other 10-03-2022 08:15-0400 Systolic blood pressure 142 mm[Hg] Yolette Scally Other [employer] Other 07-24-2022 10:30-0400 Body height 173.99 cm Le Rodgers Other [employer] Other 07-24-2022 10:30-0400 Body mass index (BMI) [Ratio] 27.72 kg/m2 Le Rodgers Other [employer] Other 07-24-2022 10:30-0400 Body weight 83.92 kg Le Rodgers Other [employer] Other 07-24-2022 10:30-0400 Diastolic blood pressure 80 mm[Hg] Le Rodgers Other [employer] Other 07-24-2022 10:30-0400 SaO2% (BldA) [Mass fraction] 97 % Le Rodgers Other [employer] Other 07-24-2022 10:30-0400 Systolic blood pressure 130 mm[Hg] Le Rodgers Other [employer] Other 06-28-2022 09:00-0500 Body height 175.26 cm Yolette Scally Other [employer] Other 06-28-2022 09:00-0500 Body mass index (BMI) [Ratio] 27.98 kg/m2 Yolette Scally Other [employer] Other 06-28-2022 09:00-0500 Body weight 85.96 kg Yolette Scally Other [employer] Other 06-28-2022 09:00-0500 Diastolic blood pressure Yolette Scally Other [employer] Other 06-28-2022 09:00-0500 Respiratory rate 18 /min Yolette Scally Other [employer] Other 06-28-2022 09:00-0500 SaO2% (BldA) [Mass fraction] 98 % Yolette Scally Other [employer] Other 06-28-2022 09:00-0500 Systolic blood pressure 116 mm[Hg] Yolette Scally Other [employer] Other 05-05-2022 09:15-0500 Body height 175.26 cm Yolette Scally Other [employer] Other 05-05-2022 09:15-0500 Body mass index (BMI) [Ratio] 28.84 kg/m2 Yolette Scally Other [employer] Other 05-05-2022 09:15-0500 Body weight 88.59 kg Yolette Scally Other [employer] Other 05-05-2022 09:15-0500 Diastolic blood pressure 67 mm[Hg] Yolette Scally Other [employer] Other 05-05-2022 09:15-0500 Respiratory rate 18 /min Yolette Scally Other [employer] Other 05-05-2022 09:15-0500 SaO2% (BldA) [Mass fraction] 97 % Yolette Scally Other [employer] Other 05-05-2022 09:15-0500 Systolic blood pressure 96 mm[Hg] Yolette Scally Other [employer] Other 02-03-2022 09:30-0400 Body height 175.26 cm Yolette Scally Other [employer] Other 02-03-2022 09:30-0400 Body mass index (BMI) [Ratio] 28.14 kg/m2 Yolette Scally Other [employer] Other 02-03-2022 09:30-0400 Body weight 86.46 kg Yolette Scally Other [employer] Other 02-03-2022 09:30-0400 Diastolic blood pressure 94 mm[Hg] Yolette Scally Other [employer] Other 02-03-2022 09:30-0400 Respiratory rate 18 /min Yolette Scally Other [employer] Other 02-03-2022 09:30-0400 SaO2% (BldA) [Mass fraction] 99 % Yolette Scally Other [employer] Other 02-03-2022 09:30-0400 Systolic blood pressure 141 mm[Hg] Yolette Scally Other [employer] Other 11-01-2021 10:15-0400 Body height 175.26 cm Yolette Scally Other [employer] Other 11-01-2021 10:15-0400 Body mass index (BMI) [Ratio] 27.76 kg/m2 Yolette Scally Other [employer] Other 11-01-2021 10:15-0400 Body weight 85.28 kg Yolette Scally Other [employer] Other 11-01-2021 10:15-0400 Diastolic blood pressure 92 mm[Hg] Yolette Scally Other [employer] Other 11-01-2021 10:15-0400 Respiratory rate 18 /min Yolette Scally Other [employer] Other 11-01-2021 10:15-0400 SaO2% (BldA) [Mass fraction] 99 % Yolette Scally Other [employer] Other 11-01-2021 10:15-0400 Systolic blood pressure 123 mm[Hg] Yolette Scally Other [employer] Other 07-20-2021 09:45-0400 Body height 175.26 cm Yolette Scally Other [employer] Other 07-20-2021 09:45-0400 Body mass index (BMI) [Ratio] 27.85 kg/m2 Yolette Scally Other [employer] Other 07-20-2021 09:45-0400 Body weight 85.55 kg Yolette Scally Other [employer] Other 07-20-2021 09:45-0400 Diastolic blood pressure 93 mm[Hg] Yolette Scally Other [employer] Other 07-20-2021 09:45-0400 Respiratory rate 20 /min Yolette Scally Other [employer] Other 07-20-2021 09:45-0400 SaO2% (BldA) [Mass fraction] 100 % Yolette Pierre Other [employer] Other 07-20-2021 09:45-0400 Systolic blood pressure 139 mm[Hg] Yolette Pierre Other [employer] Other Encounters Encounter Date Encounter Type Care Provider Facility Start: 10-29-2024 End: 10-29-2024 ambulatory Francisco Walters [employer]CHANIC [employer]IVER-C Work Phone: [facility] Work Phone: Start: 10-29-2024 End: 10-29-2024 Departed Referred Mayra Spears DPSaud MS -[facility] Start: 10-23-2024 End: 10-23-2024 Office outpatient visit 10 minutes Jamil Culver MD Work Phone: [facility] Comment on above: 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) Start: 10-23-2024 End: 10-23-2024 ambulatory [facility] Start: 10-17-2024 End: 10-17-2024 ambulatory [facility] Start: 10-09-2024 End: 10-09-2024 ambulatory Mayra Spears DPM Work Phone: [facility] Work Phone: Start: 10-09-2024 End: 10-09-2024 Patient encounter procedure Mayra Spears DPM Work Phone: [facility] Work Phone: Start: 10-07-2024 End: 10-07-2024 ambulatory MAYRA SPEARS [facility] Start: 09-25-2024 End: 09-25-2024 ambulatory [facility] Start: 09-24-2024 Non-patient / Non-visit Mayra Spears DPM Work Phone: [facility] Work Phone: Start: 09-23-2024 End: 09-23-2024 ambulatory Mayra Spears Facility:[facility] Start: 09-23-2024 End: 09-23-2024 Departed Referred Mayra Spears DPM Work Phone: [facility] Start: 09-23-2024 Non-patient / Non-visit Mayra Spears DPM Work Phone: [facility] Work Phone: Start: 09-22-2024 Non-patient / Non-visit Mayra Spears DPM Work Phone: [facility] Work Phone: Start: 09-21-2024 Non-patient / Non-visit Mayra Spears DPM Work Phone: [facility] Work Phone: Start: 09-20-2024 Non-patient / Non-visit Mayra Spears DPM Work Phone: [facility] Work Phone: Start: 06-18-2024 End: 06-18-2024 ambulatory Yolette Pierre [facility] Work Phone: Start: 06-18-2024 End: 06-18-2024 Departed Referred Yolette Pierre LLAMA FARMER Work Phone: [facility] Work Phone: Start: 06-18-2024 End: 06-18-2024 ambulatory [facility] Work Phone: Start: 06-18-2024 End: 06-18-2024 Patient encounter procedure [facility] Work Phone: Start: 04-23-2024 End: 04-23-2024 Patient encounter procedure [facility] Work Phone: Start: 04-11-2024 End: 04-11-2024 Emergency department patient visit PARRISH LOCKE [facility] Start: 04-07-2024 End: 04-07-2024 Bamboo flowsheet Christopher Edi DO Work Phone: [employer] [facility] Start: 04-07-2024 End: 04-07-2024 Bamboo flowsheet Christopher Edi DO Work Phone: [employer] [facility] Start: 04-07-2024 End: 04-07-2024 Office outpatient new 45 minutes Christopher Edi DO Work Phone: [employer] [facility] Comment on above: Neuralgia (Primary D x); DDD (degenerative disc disease), cervical Start: 04-07-2024 End: 04-07-2024 ambulatory MELANIE DALEY Not Available Start: 01-21-2024 End: 01-21-2024 ambulatory [facility] Work Phone: Start: 01-21-2024 End: 01-21-2024 Patient encounter procedure [facility] Work Phone: Start: 09-10-2023 End: 09-10-2023 ambulatory [facility] Work Phone: Start: 09-10-2023 End: 09-10-2023 Patient encounter procedure [facility] Work Phone: Start: 06-07-2023 End: 06-07-2023 ambulatory Yolette Pierre Other [employer] Other Start: 06-07-2023 Telephone encounter Yolette [facility] Start: 06-05-2023 (DM) Diabetes Yolette Scally [facility] Start: 06-05-2023 End: 06-05-2023 ambulatory MD Le Rodgers Work Phone: [employer] Other Start: 06-05-2023 End: 06-05-2023 Discharged Recurring MD Le Rodgers Work Phone: [facility] Work Phone: Start: 06-05-2023 End: 06-05-2023 Patient encounter procedure MD Le Rodgers Work Phone: [facility]- Start: 05-18-2023 End: 05-18-2023 ambulatory Yolette Scally Other [employer] Other Start: 05-18-2023 Telephone encounter Yolette Philipply [facility] Start: 02-28-2023 End: 02-28-2023 ambulatory Yolette Scally Other [employer] Other Start: 02-28-2023 Telephone encounter Yolette Philipply [facility] Start: 02-27-2023 (DM) Diabetes Yolette Scally [facility] Start: 02-27-2023 End: 02-27-2023 ambulatory Yolette Scally Other [employer] Other Start: 12-19-2022 (DM) Diabetes Yolette Scally [facility] Start: 12-19-2022 End: 12-19-2022 ambulatory Yolette Scally Other [employer] Other Start: 12-07-2022 End: 12-07-2022 ambulatory Yolette Scally Other [employer] Other Start: 12-07-2022 Telephone encounter Yolette Scally [facility] Start: 10-03-2022 (DM) Diabetes Yolette Scally [facility] Start: 10-03-2022 End: 10-03-2022 ambulatory Yolette Scally Other [employer] Other Start: 10-03-2022 Telephone encounter Yolette Scally [facility] Start: 07-24-2022 End: 07-24-2022 ambulatory Le Rodgers Other [employer] Other Start: 07-24-2022 Office outpatient ne w 30 minutes Le Rodgers [facility] Start: 07-04-2022 End: 07-04-2022 ambulatory Yolette Scally Other [employer] Other Start: 07-04-2022 Telephone encounter Yolette Scally [facility] Start: 06-28-2022 (DM) Diabetes Yolette Scally [facility] Start: 06-28-2022 End: 06-28-2022 ambulatory Yolette Scally Other [employer] Other Start: 06-26-2022 End: 06-26-2022 ambulatory Yolette Scally Other [employer] Other Start: 06-26-2022 Telephone encounter Yolette Scally [facility] Start: 06-19-2022 End: 06-19-2022 ambulatory Yolette Scally Other [employer] Other Start: 06-19-2022 Telephone encounter Yolette Scally [facility] Start: 05-05-2022 (DM) Diabetes Yolette Scally [facility] Start: 05-05-2022 End: 05-05-2022 ambulatory Yolette Scally Other [employer] Other Start: 03-27-2022 End: 03-27-2022 ambulatory Yolette Scally Other [employer] Other Start: 03-27-2022 Telephone encounter Yolette Scally [facility] Start: 02-03-2022 (DM) Diabetes Yolette Scally [facility] Start: 02-03-2022 End: 02-03-2022 ambulatory Yolette Scally Other [employer] Other Start: 11-21-2021 End: 11-21-2021 ambulatory Yolette Scally Other [employer] Other Start: 11-21-2021 Telephone encounter Yolette Scally [facility] Start: 11-11-2021 End: 11-11-2021 ambulatory Yolette Scally Other [employer] Other Start: 11-11-2021 Telephone encounter Yolette Scally [facility] Start: 11-01-2021 (DM) Diabetes Yolette Scally [facility] Start: 11-01-2021 End: 11-01-2021 ambulatory Yolette Scally Other [employer] Other Start: 10-24-2021 End: 10-24-2021 ambulatory Yolette Scally Other [employer] Other Start: 10-24-2021 Telephone encounter Yolette Scally [facility] Start: 09-13-2021 End: 09-13-2021 ambulatory Yolette Scally Other [employer] Other Start: 09-13-2021 Telephone encounter Yolette Scally [facility] Start: 08-23-2021 End: 08-23-2021 ambulatory Yolette Pierre Other [employer] Other Start: 08-23-2021 Telephone encounter Yolette smiley [facility] Start: 08-04-2021 End: 08-04-2021 ambulatory Yolette Pierre Other [employer] Other Start: 08-04-2021 Telephone encounter Yolette smiley [facility] Start: 07-20-2021 (DM) Diabetes Yolette [facility] Start: 07-20-2021 End: 07-20-2021 ambulatory Yolette Pierre Other [employer] Other Start: 04-08-2020 End: 04-08-2020 Patient encounter procedure MARCEL PAIZ Facility: Procedures Date Procedure Procedure Detail Performing Clinician History of amputatio n of lesser toe H/O amputation of lesser toe Mayra Spears DPM Work Phone: Comment on above: right great toe Plan of Treatment Date Care Activity Detail Author Start: 10-23-2025 Adult BMI Screening Adult BMI Screen ing [facility] Start: 04-11-2025 Tobacco Screening Tobacco Screening [facility] Start: 01-05-2025 Influenza vaccination Influenza Vacc ine [facility] Start: 10-29-2024 [facility] Start: 04-07-2024 End: 04-07-2024 Patient encounter procedure 04/07/2024 8:30 AM EST Office Visit [facility] [address] [place] [id number] Melanie Daley DO [address] [place] [address] Ar[address] [facility] Comment on above: Arrived Start: 2011 Administration of varicella zoster vaccine Zoster (Shingles) Vaccine (1 of 2) [facility] Start: 02-06-1980 DTaP,Tdap and Td Vac cines (1 - Tdap) DTaP,Tdap and Td Vaccines (1 - Tdap) [facility] Start: 1973 Depression Screening Depression Scre shantel [facility] Comprehensive metabo lic 1999 panel - Serum or Plasma [facility] Comprehensive metabo lic 1999 panel - Serum or Plasma [facility] Payers Date Payer Category Payer Self-pay [id number] 2024 Medicare HMO ANTH MEDICARE [id number] 2024 Unknown [id number] 2022 Medicare (Managed Care) [facility] [id number] 2022 Medicare [id number] 1961 Unknown [id number] 1961 Unknown [id number] [id number] 1961 Unknown [id number] 1286 1961 Unknown [id number] 1286 1961 Unknown [id number] 1286 1961 Unknown [id number] 1286 1961 Unknown [id number] 1286 1959 Unknown [id number] Medicare [id number] Unknown [id number] 531 Unknown [id number] 531 Social History Date Type Detail Facility Unknown if ever smoked [employer] Other Start: 06-17-2020 End: 04-11-2024 Sex Assigned At [employer] Other Start: 1960 Sex Assigned At Male [facility] Start: 09-10-2023 End: 10-09-2024 Tobacco smoking status MOIS Ex-smoker (finding) [facility] Tobacco smoking status [facility] Tobacco smoking consumption unknown [facility] Start: 1960 Sex assigned at Not on file [facility] Start: 12-10-2014 End: 06-18-2024 Sex Male (finding) [facility] History of tobacco use Current smoker [facility] Start: 04-11-2024 Alcoholic beverage intake Current drinker of alcohol (finding) [facility] Start: 06-17-2020 End: 04-11-2024 Alcoholic beverage intake [facility] Unknown [facility] Medical Equipment Procedure Code Equipment Code Equipment [...] and follow up with us as needed. [facility] 10-23-2024 Miscellaneous Notes Associate d Problem(s): Critical limb ischemia of right lower extremity with [place] [place] He has no significant occlusive disease. Plan is to continue to work with podiatry and follow up with us as needed. documented in this encounter [facility] 10-23-2024 History of Presen t illness Narrative [...] 2, controlled ([facility]) Hyperlipidemia Hypertension Past Surgical History: Past Surgical History: Procedure Laterality Date lower ext angio Right 10/17/2024 Performed by Jamil Culver MD at [facility] Social and Family History: [...] for your understanding. documented in this encounter [facility] 10-09-2024 Evaluation note Diagnosis Onset Date Resolution BMI 25.0-25.9,adult acute October 09, 2024 8:20am Dietary counseling and surveillance acute October 09, 2024 8:20am HTN (hypertension) acute October 092024 8:20am Hyperlipidemia acute October 09, 2024 8:20am Hypotension acute October 09 8:20am custodial 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 insulin acute October 09, 2024 8:20am Persistent albuminuria acute Ju 2024 8:20am Type 2 diabetes mellitus with hyperglycemia acute October 09 8:20am Vitamin D deficiency acute October 09, 2024 8:20am [facility] Work Phone: 1(363) 158-502312-18-2024 Evaluation note* Diagnosis Onset Date Resolution Status Admit Date BMI 25.0-25.9,adult acute Decem viji 2023 8:54am Dietary counseling and surveillance acute April 23 024 8:54am HTN (hypertension) acute Decemb er 2023 8:54am Hyperlipidemia acute April 062023 8:54am joint terminal attack controller 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 insulin acute April 23 024 8:54am Persistent albuminuria acute De cember 2023 8:54am Type 2 diabetes mellitus wit h hyperglycemia acute April 23 024 8:54am Vitamin D deficiency acute Dece mber 2023 8:54am BMI 25.0-25.9,adult acute Febru jennie 2024 8:25am Dietary counseling and surveillance acute June 18 025 8:25am HTN (hypertension) acute Februa ry 2024 8:25am Hyperlipidemia acute June 072024 8:25am custodial 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 insulin acute June 18 025 8:25am Persistent albuminuria acute Fe bruary 2024 8:25am Type 2 diabetes mellitus wit h hyperglycemia acute June 18 8:25am Vitamin D deficiency acute Febr ry 2024 8:25am [facility] Work Phone: 1(207) 150-565912-02-2024 History of Present illness Narrative* Melanie Daley, DO - 04/07/2024 8:30 AM EST Images from [...] , wrist extensors , wrist flexor , sericulture teacher strength 5/5. LUE Strength deltoid , biceps , triceps , wrist extensors , wrist flexor , sericulture teacher strength 5/5. RLE Strength illopsoas, quadriceps, tibialis [...] reflex 2+ . Christy's sign negative. Coordination: [id number] testing and rapid alternating movements are normal [...] plan, and return instructions [id number] Evaluation note* Encounter Date Diagnosis Assessment Notes Treatment Notes Treatment Clinical Notes Jun, Type 2 diabetes mellitus with hyperglycemia (ICD-10 - E11.65) [employer] Other 01-30-2024 Evaluation note* Encounter Date Diagnosis [...] maintain Humalog correction 1:40 (carries chart in [facility]). Continue Vitamin D now OTC and Vitamin [...] continue BP good. ESTABLISH WITH PCP May, custodial 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 insulin (ICD-10 - Z79.4) May, Persistent albuminuria (ICD-10 - R80.9) Failed Jardiance, Tolerating Farxiga, increase Lisinopril last visit and tolerating. CANNOT PRODUCE URINE SAMPLE tODAY, LAB ORDER SENT TO FOLLOWUP. If persistent albuminuria could consider nephrology. Discussed management of glycemia and high blood pressure to protect kidneys. May, Albuminuria (ICD-10 - R80.9) May, BMI 25.0-25.9,adult (ICD-10 - Z68.25) [employer] Other 10-25-2023 Evaluation note* Encounter Date Diagnosis Assessment Notes Treatment Notes Treatment Clinical Notes Feb, Albuminuria (ICD-10 - R80.9) [employer] Other 10-24-2023 Evaluation note* Encounter Date Diagnosis [...] continue BP good. ESTABLISH WITH PCP Feb, joint terminal attack controller 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 insulin (ICD-10 - Z79.4) Feb, Persistent albuminuria (ICD-10 - R80.9) Failed Jardiance, will do trial of Farxiga. If cannot tolerate class medications or persistent albuminuria could consider nephrology. Repeat microalbuminuria after Farxiga. Discussed management of glycemia and high blood pressure to protect kidneys. Feb, BMI 26.0-26.9,adult (ICD-10 - Z68.26) Feb, Albuminuria (ICD-10 - R80.9) [employer] Other 08-15-2023 Evaluation note* Encounter Date Diagnosis [...] published to portal slightly above goal Dec, joint terminal attack controller 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 insulin (ICD-10 - Z79.4) Dec, Persistent albuminuria (ICD-10 - R80.9) Failed Jardiance, will do trial of Farxiga. If cannot tolerate class medications or persistent albuminuria could consider nephrology. Repeat microalbuminuria after Farxiga. Discussed management of glycemia and high blood pressure to protect kidneys. Dec, BMI 27.0-27.9,adult (ICD-10 - Z68.27) [employer] Other 05-30-2023 Evaluation note* Encounter Date Diagnosis [...] published to portal slightly above goal September, custodial 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 insulin (ICD-10 - Z79.4) September, Persistent albuminuria (ICD-10 - R80.9) Failed Jardiance, will do trial of Farxiga. If cannot tolerate class medications or persistent albuminuria could consider nephrology. Repeat microalbuminuria after Farxiga. Discussed management of glycemia and high blood pressure to protect kidneys. September, BMI 27.0-27.9,adult (ICD-10 - Z68.27) [employer] Other 03-20-2023 Evaluation note* Encounter Date Diagnosis Assessment Notes Treatment Notes Treatment Clinical Notes Jul, Hyperlipidemia (ICD-10 - E78.5) will refill med and check labs today. Jul, Type 2 diabetes mellitus with hyperglycemia (ICD-10 - E11.65) Continued followup with diabetes clinic. Pt states he hasn't had an eye exam for 2 years - advised followup [employer] Other 02-22-2023 Evaluation note* Encounter Date Diagnosis [...] Instructions material was published to portal Jun, custodial 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 insulin (ICD-10 - Z79.4) Jun, BMI 28.0-28.9,adult (ICD-10 - Z68.28) Jun, Persistent albuminuria (ICD-10 - R80.9) Failed Jardiance, will do trial of Farxiga. If cannot tolerate class medications or persistent albuminuria could consider nephrology. Repeat microalbuminuria after Farxiga. Discussed management of glycemia and high blood pressure to protect kidneys. Jun, Other inital weigh t increase, now declining [employer] Other 02-13-2023 Evaluation note* Encounter Date Diagnosis Assessment Notes Treatment Notes Treatment Clinical Notes Jun, Type 2 diabetes mellitus with hyperglycemia (ICD-10 - E11.65) [employer] Other 12-30-2022 Evaluation note* Encounter Date Diagnosis [...] PCP to manage cholesterol and preventative treatments. [facility] physician group primary care provider flyer [...] will have patient present for download with associate sales manager in 4 weeks and provider in 8 [...] Instructions material was published to portal Apr, joint terminal attack controller 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 insulin (ICD-10 - Z79.4) Apr, BMI 28.0-28.9,adult (ICD-10 - Z68.28) Apr, Persistent albuminuria (ICD-10 - R80.9) Failed Jardiance, will do trial of Farxiga. If cannot tolerate class medications or persistent albuminuria could consider nephrology. Repeat microalbuminuria after Farxiga. Discussed management of glycemia and high blood pressure to protect kidneys. Apr, Other inital weigh t increase, now declining [employer] Other 09-30-2022 Evaluation note* Encounter Date Diagnosis [...] for activation. She continue miladys. Encouraged calling [employer] for replacement of 2 sensors. We discussed [...] Instructions material was published to portal Jan, custodial 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 insulin (ICD-10 - Z79.4) [...] Other inital weigh t increase, now declining [employer] Other 07-18-2022 Evaluation note* Encounter Date Diagnosis Assessment Notes Treatment Notes Treatment Clinical Notes Nov, Type 2 diabetes mellitus with hyperglycemia (ICD-10 - E11.65) Nov, joint terminal attack controller current us e of insulin (ICD-10 - Z79.4) [employer] Other 06-28-2022 Evaluation note* Encounter Date Diagnosis [...] clinic in 6 weeks for download with associate sales manager in 3 months with provider 3. Patient [...] Instructions material was published to portal Oct, custodial 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 insulin (ICD-10 - Z79.4) Oct, BMI 27.0-27.9,adult (ICD-10 - Z68.27) Oct, Other inital weigh t increase, now declining [employer] Other 03-16-2022 Evaluation note* Encounter Date Diagnosis [...] increase this. Patient has difficulty with his geospatial imagery intelligence analyst currently, questioning accuracy as it was run over. He will request a new geospatial imagery intelligence analyst from [employer]. We also discussed using cell phone as [...] previous PCP. He is given information regarding [facility] physicians to include Dr. Vela who may be geographically desirable. I did send him with written to do list 1 call [email or web address] for replacement of geospatial imagery intelligence analyst. To download [employer] on cell phone for next sensor [...] hyperglycemia, or diabetes medication issues. 6. Prescriptions: Jardiance sent Valeria/Valeria 07-20-21 Jul, Dietary counseling and surveillance (ICD-10 - Z71.3) [employer] Healthy Weight material was published to portal Jul, Hyperlipidemia (ICD-10 - E78.5) Learning About High Cholesterol material was published to portal LDL 53-- Continue Crestor Jul, HTN (hypertension) (ICD-10 - I10) High Blood Pressure: Care Instructions material was published to portal Jul, custodial 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 insulin (ICD-10 - Z79.4) Jul, BMI 27.0-27.9,adult (ICD-10 - Z68.27) Jul, Other inital weigh t increase, now declining [employer] Other Chief complaint+Reason for visit Narrative* Chief Complaint DMN f/u-METER Reason for Visit BMI 25.0-25.9,adult Dietary counseling and surveillance HTN (hypertension) Hyperlipidemia joint terminal attack controller 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 insulin Persistent albuminuria Type 2 diabetes mellitus with hyperglycemia Vitamin D deficiency [facility] Work Phone: Evaluation noteNo [employer] Other Evaluation noteNo assessment information available [facility] Work Phone: Evaluation note* Diagnosis Onset Date Resolution Status BMI 25.0-25.9,adult acute Dietary counseling and surveillance acute HTN (hypertension) acute Hyperlipidemia acute custodial 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 insulin acute Persistent albuminuria acute Type 2 diabetes mellitus with hyperglycemia acute Vitamin D deficiency acute [facility] Work Phone: Evaluation note* Diagnosis Neuralgia- [...] 8:20am Hyperlipidemia acute October 09, 2024 8:20am joint terminal attack controller 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 insulin acu te October 09, 2024 8:20am Persistent albuminuria acute Ju 2024 8:20am Type 2 diabetes mellitus wit h hyperglycemia acute October 09, 2024 8 :20am Vitamin D deficiency acute October 09, 2024 8:20am [facility] Work Phone: Evaluation note* Diagnosis Critical limb ischemia of right lower extremity with gangrene (CMS-HCC)- Primary PAD (peripheral artery disease) Unspecified peripheral vascular disease Gangrene (CMS-HCC) Gangrene Critical limb ischemia of right lower extremity with gangrene (CMS-HCC)- Primary [facility] - Reported* Type Description Date Medical History Herpes zoster dermatitis Medical History Abscess, lip- PICC line prolonge d ABX 2016 Medical History Neck sprain, strain Medical History Hypertension, controlled Medical History Hyperlipidemia Medical History Diabetes, type 2 Medical History Hx of Covid 19 (04/2020) Surgical History PICC LINE 2017 Hospitalization History ICU In [facility] f or 8-10 days 2016 [employer] Other InstructionsNot on filedocumented in this encounter [facility]ative)* Reason Nail deformity, Type II Diabetes Referral sent , patient informed Diagnosis 1 Type 2 diabetes reji itus with hyperglycemia (E11.65) Diagnosis 2 Nail deformity (L60. 8) Referral Organization [facility] Referring Provider First Name Yolette Referring Provider Last Name Gabby Referring Provider Specialty Nurse Pract itioner Referred Organization [facility] Referred Provider STEVEN AHMADI Referred Address ,[place], [place],[address] Referred Provider Specialty Podiatry - S urgical Chiropody Referral Priority Routine General Notes Yolette Benavides 06/08 09:03:14 AM > Per Nelia at Dr Montes office once referral is received she will call patient for apptJennifer informed Yolette Benavides 06/30/2022 09:23:23 AM > Referral faxed, for some reason last office note did not attach so I did fax the last office note seperatly thru our free standing office fax. and informed Yolette Avitia 06/30/2022 09:30:52 AM >Patient informed, and given Dr Montes phone number in case he doesn't hear from them. Clinical Notes Dr Steven Ahmadi# [phone] [employer] Other Reason for referral (narrative)No reason for referral [facility] Phone: Summary Purpose Family History Relationship Condition Age at Onset Recorded Date/T wilber brother Diabetes mellitus Unknown father Malignant neoplasm Unknown Unknown Not Specified Unknown Diabetes mellitus Unknown Relationship Condition Age at Onset Recorded Date/T wilber brother Diabetes mellitus Unknown father Malignant neoplasm Unknown Unknown mother Unknown Diabetes mellitus Unknown Advance Directives Advance Directive Response Recorded Date/ [...] 2024 8:54am Dietary counseling and surveillance Dece [facility] 2023 8:54am HTN (hypertension) April 23, 2024 8:54am Hyperlipidemia April 23, 2024 8:54am custodial 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 8:54am Persistent albuminuria April 23 8:54am Type 2 diabetes mellitus with hyperglyce samir April 23, 2024 8:54am Vitamin D deficiency April 23, 2024 8:54am BMI 25.0-25.9,adult June 18, 2024 8:25am Dietary counseling and surveillance [facility] 2024 8:25am HTN (hypertension) June 18, 2024 8:25am Hyperlipidemia June 18, 2024 8:25am custodial 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 insulin Februar y 2024 [...] m Hyperlipidemia October 09, 2024 8:20a m custodial 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 insulin October 8:20am Persistent albuminuria October 09, 2024 8: 20am Type 2 diabetes mellitus with hyperglyce samir October 09, 2024 8:20am Vitamin D deficiency October 09, 2024 8:20 am Chief Complaint Admit Date Unknown September 23, [...] m Hypotension October 09, 2024 8:20a m joint terminal attack controller 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 insulin October 8:20am Persistent [...] and content) DATE CREATED AUTHOR [facility]/12/2020 [facility] DATE CREATED AUTHOR AUTHOR'S ORGANIZ ATION 04/07/2024 [facility] EPIC DATE CREATED AUTHOR AUTHOR'S ORGANIZ ATION 10/02/2024 [facility] DATE CREATED AUTHOR AUTHOR'S ORGANIZ ATION 10/08/2024 [facility] DATE CREATED AUTHOR AUTHOR'S ORGANIZ ATION 10/20/2024 [facility] DATE CREATED AUTHOR AUTHOR'S ORGANIZ ATION 10/26/2024 [facility] REASON FOR VISIT (unrecogniz ed section and content) Reason Comments Critical limb ischemia of right lower ex tremity with gangre rt leg angiogram 10-17-24 Care Teams (unrecognized sec tion and content) Team Status: Active Member Role Status Dates NON STAFF Primary Care Provider Active Team Status: Active Member Role Status Dates Francisco Walters , MECHANIC DRIVER-C Primary Care Provider Active Start: September 20, 2024 Krys Hummel MD Attending Provider Active Sta rt: September 20, 2024 Team Status: Active Member Role Status Dates Francisco Walters , MECHANIC DRIVER-C Primary Care Provider Active Start: September 21, 2024 Shaikh Shaji MD Attending Provider Active Sta rt: September 21, 2024 Team Status: Active Member Role Status Dates Francisco Walters , MECHANIC DRIVER-C Primary Care Provider Active Start: September 22, 2024 Shaikh Shaji MD Attending Provider Active Sta rt: September 22, 2024 Team Status: Active Member Role Status Dates Francisco Walters , MECHANIC DRIVER-C Primary Care Provider Active Start: September 23, [...] January 21, 2024 End: January 21, 2024 Tetryl Screen Operator Relationship Specialty Start Date End Date Melanie Daley DO [address] [address] Referring Physician Neurology 04/07/24 Leticia Blanco NP [address] [address] Nurse Practitioner Neurology 04/07/24 Suzanna Ybarra NP [address] [phone] Nurse Practitioner Neurology 04/07/24 Team Status: Inactive [...] June 18, 2024 End: June 18, 2024 Tetryl Screen Operator Relationship Specialty Start Date End Date No Pcp[place] [address] PCP - General Family Medicine 04/11/24 Team Status: Inactive Member Role Status Dates Mayra Spears DPM MS Attending Provider Active Start: October 29, 2024 End: October 29, 2024 Goals (unrecognized section and content) Goals [...] BE BASED ON THE PRIMARY CLINICAL RECORDS. [facility]. provides no warranty or guarantee of the accuracy or completeness of information in this document.
== END 2024-10-31 09:35 | disposition home or self-care (01) ==
LOC: RAD 09:36
PROVIDERS: PCP Family Medicine; Visit Provider Podiatrist Foot & Ankle Surgery
DX: M79.671 Pain in right foot (principal); M85.871 Other specified disorders of bone density and structure, right ankle and foot
CPT/HCPCS: 73630

== ENCOUNTER 2024-10-31 09:56 | Outpatient (OUT) | payer MEDICARE, SELFPAY ==
--- OUTSIDE RECORDS SUMMARY | 2024-10-30 20:29 | XMS_ITS | Continuity of Care Document ---
Author Organization [facility] Address [address] [place] [address] Phone Care Team Providers Care Crew Lead Name Role Phone Selena Francisco Lee CUTTING TOOL SHARPENER-C Primary Care Provider Krys Hummel MD Attending Provider [phone] Shaikh DEVEN Girard Attending Provider Colton Spears DPM Attending Provider Desiree Garcia CMA Attending Provider UnavailYolette Rivas APRN Attending Provider NON STAFF Primary Care Provider Unavailabl e Care Teams Visit Care Team Team Status: Active Member Role Status Dates Francisco Walters CUTTING TOOL SHARPENER-C Primary Care Provider Active Start: September 20, 2024 Krys Hummel MD Attending Provider Active Sta rt: September 20, 2024 Visit Care Team Team Status: Active Member Role Status Dates Francisco Walters CUTTING TOOL SHARPENER-C Primary Care Provider Active Start: September 21, 2024 Shaikh Shaji MD Attending Provider Active Sta rt: September 21, 2024 Visit Care Team Team Status: Active Member Role Status Dates Francisco Walters CUTTING TOOL SHARPENER-C Primary Care Provider Active Start: September 22, 2024 Shaikh Shaji MD Attending Provider Active Sta rt: September 22, 2024 Visit Care Team Team Status: Active Member Role Status Dates Francisco Walters CUTTING TOOL SHARPENER-C Primary Care Provider Active Start: September 23, 2024 Shaikh Shaji MD Attending Provider Active Sta rt: September 23, 2024 Visit Care Team Team Status: Inactive Member Role Status Dates Colton Spears DPM MS Attending Provider Active Start: September 23, 2024 End: September 23, 2024 Visit Care Team Team Status: Active Member Role Status Dates Desiree Garcia CMA Attending Provider Active Start: September 24, 2024 Visit Care Team Team Status: Inactive Member Role Status Dates Yolette Pierre APRN Attending Provider Active Start: October 09, 2024 End: October 09, 2024 NON STAFF Primary Care Provider Active Start: October 09, 2024 End: October 09, 2024 Patient Care Team Team Status: Inactive Member Role Status Dates Colton Spears DPM MS Attending Provider Active Start: October 29, 2024 End: October 29, 2024 Chief Complaint and Reason for Visit Chief Complaint Admit Date Unknown September 23, 2024 9:38a m Amb Documentation September 24, 2024 8:46a m 12 weeks-DMN f/u-PAP MEDS HERE October 09, 2024 8:20am Unknown October 29, 2024 2:45 pm Reason for Visit Admit Date BMI 25.0-25.9,adult October 09, 2024 8:20a m Dietary counseling and surveillance October 09, 2024 8:20am HTN (hypertension) October 09, 2024 8:20a m Hyperlipidemia October 09, 2024 8:20a m Hypotension October 09, 2024 8:20a m 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 October 8:20am Persistent albuminuria October 09, 2024 8: 20am Type 2 diabetes mellitus with hyperglyce samir October 09, 2024 8:20am Vitamin D deficiency October 09, 2024 8:20 am Allergies, Adverse Reactions, Alerts Allergen Type Severity Reaction Last Updated Verified Status No Known Allergies Allergy Unknown October 09, 2024 8:47am Yes Active Social History Smoking Status Status Start Date End Date Date of Observa tion Ex-smoker (finding) October 8:55am Observation Status Observation Response Date of Response Legal Sex Male (finding) Sex Assigned At Male February d1959 Family History Relationship Condition Age at Onset Recorded Date/T wilber brother Diabetes mellitus Unknown father Malignant neoplasm Unknown Unknown mother Unknown Diabetes mellitus Unknown Problems Active Problems Medical Problem Onset Date Status Comments Persistent albuminuria Unknown Active Amputation of right great toe Unknown Active 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 Unknown Active Type 2 diabetes mellitus wit h hyperglycemia Unknown Active H/O amputation of lesser toe Unknown Active right great toe Broken ribs Unknown Active Patient states has 3 cracked ribs, fell first week April 2024 Dietary counseling and surveillance Unknown Activ e Hyperlipidemia Unknown Active BMI 25.0-25.9,adult Unknown Active HTN (hypertension) Unknown Active Hypotension Unknown Active Vitamin D deficiency Unknown Active Medications Medication Status Dose Units Route Directions Qty Days St art Date Stop Date End Date Instructions Adherence Flash Glucose Scanning Shirley (Freestyle Miladys 2 Shirley) misc Discont inued 0 .MEDSUPPLY September 07, 2023 12:00a m September 07, 2023 2:01p m As directed Flash Glucose Scanning Shirley (Freestyle Miladys 2 Shirley) mis Active 0 .MEDSUPPLY September 07, 2023 1:58pm As directed to monitor blood sugar Flash Glucose Sensor (Freestyle Miladys 2 Sensor) kit Discont inued 0 .MEDSUPPLY Novemb er 2023 1:00am viji 2023 10:37 am As directed Change every 14 Days Flash Glucose Sensor (Freestyle Miladys 2 Sensor) kit Discont inued 0 .MEDSUPPLY er 2023 10:37a m Febru [email or web address] 9:51a m As directed Change every 14 Days Insulin Lispro-Aabc (Lyumjev Kwikpen U-200 Insulin) 200 unit/mL (3 mL) insulin pen Discont inued 1 slidin g scale dose SUBCUT Use as Directed 2024 1:00am Febru [email or web address] 9:53a m ISS 1:40 ICR 1:10 ACHS TID. Expect up to 40 u per day Flash Glucose Sensor (Freestyle Miladys 2 Sensor) kit Discont inued EACH .ROUTE .MEDSUPPLY September 05, 2023 12:00a m 2023 10:36 am As directed Semaglutide (Ozempic) [...] 12:00a m September 10, 2023 8:14a m Dapaglifloz in Propanediol (Farxiga) 10 mg tablet Discont inued 10 MG PO Daily September 05, 2023 12:00a m September 10, 2023 8:47a m Insulin Glargine 100 unit/mL (3 mL) insulin pen Discont inued 42 UNIT SUBCUT Every evening September 05, 2023 12:00a m September 10, 2023 8:47a m Lisinopril 2.5 mg tablet Active 2.5 MG PO Daily September 05, 2023 12:00a m Unknown Cholecalcif angela (Vitamin D3) 50 mcg (2,000 unit) capsule Active 100 MCG PO Daily September 05, 2023 12:00a m Unknown Rosuvastati n 40 mg tablet Active 40 MG PO Daily September 05, 2023 12:00a m Unknown Insulin Lispro 100 unit/mL insulin pen Discont inued 1 slidin g scale dose SUBCUT Use as Directed September 10, 2023 12:00a m September 10, 2023 8:47a m Metformin 500 mg tablet extended release 24 hr Discont inued 1000 MG PO .am September 10, 2023 8:12am Decem viji 2023 1:37p m On Hold: combine in one entry Metformin 500 mg tablet extended release 24 hr Discont inued 500 MG PO Every evening September 10, 2023 12:00a m September 10, 2023 8:47a m Semaglutide (Ozempic) 0.25 mg or 0.5 mg (2 mg/3 mL) pen injector Discont inued 0.5 MG SUBCUT every week 9.56 8 90 September 10, 2023 8:40am Decem viji 2023 1:37p m On Hold: dose change Metformin 500 mg tablet extended release 24 hr Discont inued 1500 MG PO Daily 270 September 10, 2023 8:41am [facility] 2023 11:48 am 2 tabs with breakfast, one tab with dinner Dapaglifloz in Propanediol (Farxiga) 10 mg tablet Active 10 MG PO Daily 90 September 10, 2023 8:43am Unknown Insulin Glargine 100 unit/mL (3 mL) insulin pen Discont inued 42 UNIT SUBCUT Every evening 37.8 September 10, 2023 8:44am [facility] 2023 10:16 am titrate to 60 u once daily, has written instructions Insulin Lispro 100 unit/mL insulin pen Discont inued 0 SUBCUT Use as Directed 30 September 10, 2023 8:45am [facility] 2023 10:15 am ISS 1:50, expect up to 30 u per day Insulin Glargine 100 unit/mL (3 mL) insulin pen Discont inued 40 UNIT SUBCUT Every evening 2023 10:13a m [facility] 2023 10:38 am titrate to 60 u once daily, has written instructions Insulin Aspart (Niacinamid e) (Fiasp Flextouch U-100 Insulin) 100 unit/mL (3 mL) insulin pen Active 1 slidin g scale dose SUBCUT Use as Directed 2023 12:00a m Unknown Semaglutide (Ozempic) 1 mg/dose (4 mg/3 mL) pen injector Discont inued 1 MG SUBCUT every week 3 2023 12:00a m Febru jennie 2024 10:39 am Insulin Glargine 100 unit/mL (3 mL) insulin pen Discont inued 40 UNIT SUBCUT Every evening 60 2023 10:36a m Octob er 2023 1:40p m titrate to 60 u once daily, has written instructions Insulin Glargine 100 unit/mL (3 mL) insulin pen Discont inued 38 UNIT SUBCUT Every evening 60 Octobe r 2023 1:39pm [facility] 2023 10:30 am titrate to 60 u once daily, has written instructions Insulin Glargine 100 unit/mL (3 mL) insulin pen Discont inued 40 UNIT SUBCUT Every evening [facility] 2023 10:27a m Dece viji 2023 11:47 am titrate to 60 u once daily, has written instructions Oxcarbazepi ne 150 mg tablet Active 150 MG PO Daily [facility] 2023 1:00am Unknown Insulin Glargine 100 unit/mL (3 mL) insulin pen Discont inued 40 UNIT SUBCUT Every evening 60 [facility] 2023 11:46a m October 09, 2024 11:56 am titrate to 60 u once daily, has written instructions Metformin 500 mg tablet extended release 24 hr Discont inued 1500 MG PO Daily 270 90 [facility] 2023 11:48a m [facility]2024 9:56a m 2 tabs with breakfast, one tab with dinner Flash Glucose Sensor (Freestyle Miladys 2 Sensor) kit Active 0 .MEDSUPPLY 6 2024 9:51am As directed Change every 14 Days Metformin 500 mg tablet extended release 24 hr Active 0 PO Daily 2024 9:54am 2 tabs with breakfast, one tab with dinner Unknown Blood-Gluco se Meter (Onetouch Ultra2 Meter) misc Discont inued 0 .Route 2024 1:00am [facility]2024 10:08 am As directed Blood Sugar Diagnostic (Onetouch Ultra Test) strip Discont inued 0 .Route 2024 1:00am [facility]2024 10:08 am As directed Lancets misc Discont inued 0 .Route 2024 1:00am [facility]2024 10:08 am As directed Lancets misc Active 0 .Route 300 2024 10:06a m As directed test blood sugar three times daily Blood Sugar Diagnostic (Onetouch Ultra Test) strip Active 0 .Route 300 2024 10:07a m As directed test blood sugar three times daily Blood-Gluco se Meter (Onetouch Ultra2 Meter) misc Active 0 .Route 1 2024 10:07a m As directed test blood sugar three times daily Semaglutide (Ozempic) 1 mg/dose (4 mg/3 mL) pen injector Active 1 MG SUBCUT every week 3 2024 10:37a m patient will have [facility] voucher information Unknown Insulin Glargine 100 unit/mL (3 mL) insulin pen Active 38 UNIT SUBCUT Every evening 45 October 09, 2024 11:50a m titrate to 50 u once daily, has written instructions Unknown Relevant Diagnostic Tests and/or Laboratory Data Laboratory Results Test Collection Date/Time Result Date/Time Result Interpretation Reference Range Result Comment Performing Site C-Reactive Protein, Quantitative September 20, 2024 12:15pm September 20, 2024 12:15pm 6.32 mg/dL Above high normal <=0.50 Anion Gap September 20, 2024 12:15pm September 20, 2024 12:15pm 9.4 Erythrocyte Sedimentation Rate September 20, 2024 12:15pm September 20, 2024 12:15pm >130 mm/hr Above high normal <=20 Basophils # (Auto) September 20, 2024 12:15pm September 20, 2024 12:15pm 0.1 10 3/uL 0.0-0.1 Anion Gap September 21, 2024 5:55am September 21, 2024 5:55am 14.1 Basophils # (Auto) September 21, 2024 5:55am September 21, 2024 5:55am 0.1 10 3/uL 0.0-0.1 C-Reactive Protein, Quantitative September 22, 2024 5:35am September 22, 2024 5:35am 4.29 mg/dL Above high normal <=0.50 Anion Gap September 22, 2024 5:35am September 22, 2024 5:35am 15.7 Basophils # (Auto) September 22, 2024 5:35am September 22, 2024 5:35am 0.1 10 3/uL 0.0-0.1 Vancomycin Level Trough September 22, 2024 7:56pm September 22, 2024 7:56pm 18.3 ug/mL 5.0-20.0 Anion Gap September 23, 2024 5:30am September 23, 2024 5:30am 14.1 C-Reactive Protein, Quantitative September 23, 2024 5:30am September 23, 2024 5:30am 3.19 mg/dL Above high normal <=0.50 Basophils # (Auto) September 23, 2024 5:30am September 23, 2024 5:30am 0.1 10 3/uL 0.0-0.1 Bedside Glucose October 09, 2024 8:44am October 09, 2024 9:02am 123 Bedside Hemoglobin A1c October 09, 2024 9:00am October 09, 2024 9:01am 6.6 % Albumin/Globu juliet Ratio September 20, 2024 12:15pm September 20, 2024 12:15pm 0.4 Basophils (%) (Auto) September 20, 2024 12:15pm September 20, 2024 12:15pm 0.8 % 0.2-2.0 Albumin/Globu juliet Ratio September 21, 2024 5:55am September 21, 2024 5:55am 0.3 Basophils (%) (Auto) September 21, 2024 5:55am September 21, 2024 5:55am 0.6 % 0.2-2.0 Albumin/Globu juliet Ratio September 22, 2024 5:35am September 22, 2024 5:35am 0.4 Basophils (%) (Auto) September 22, 2024 5:35am September 22, 2024 5:35am 0.6 % 0.2-2.0 Albumin/Globu juliet Ratio September 23, 2024 5:30am September 23, 2024 5:30am 0.3 Basophils (%) (Auto) September 23, 2024 5:30am September 23, 2024 5:30am 0.7 % 0.2-2.0 Albumin September 20, 2024 12:15pm September 20, 2024 12:15pm 2.4 g/dL Below low normal 3.4-5.0 Eosinophils # (Auto) September 20, 2024 12:15pm September 20, 2024 12:15pm 0.0 10 3/uL 0.0-0.7 Albumin September 21, 2024 5:55am September 21, 2024 5:55am 1.9 g/dL Below low normal 3.4-5.0 Eosinophils # (Auto) September 21, 2024 5:55am September 21, 2024 5:55am 0.0 10 3/uL 0.0-0.7 Albumin September 22, 2024 5:35am September 22, 2024 5:35am 1.9 g/dL Below low normal 3.4-5.0 Eosinophils # (Auto) September 22, 2024 5:35am September 22, 2024 5:35am 0.0 10 3/uL 0.0-0.7 Albumin September 23, 2024 5:30am September 23, 2024 5:30am 1.8 g/dL Below low normal 3.4-5.0 Eosinophils # (Auto) September 23, 2024 5:30am September 23, 2024 5:30am 0.0 10 3/uL 0.0-0.7 Alkaline Phosphatase September 20, 2024 12:15pm September 20, 2024 12:15pm 101 U/L 46-116 Eosinophils (%) (Auto) September 20, 2024 12:15pm September 20, 2024 12:15pm 0.0 % Below low normal 0.9-7.0 Alkaline Phosphatase September 21, 2024 5:55am September 21, 2024 5:55am 79 U/L 46-116 Eosinophils (%) (Auto) September 21, 2024 5:55am September 21, 2024 5:55am 0.2 % Below low normal 0.9-7.0 Alkaline Phosphatase September 22, 2024 5:35am September 22, 2024 5:35am 74 U/L 46-116 Eosinophils (%) (Auto) September 22, 2024 5:35am September 22, 2024 5:35am 0.2 % Below low normal 0.9-7.0 Alkaline Phosphatase September 23, 2024 5:30am September 23, 2024 5:30am 76 U/L 46-116 Eosinophils (%) (Auto) September 23, 2024 5:30am September 23, 2024 5:30am 0.2 % Below low normal 0.9-7.0 Alanine Aminotransfer ase (ALT/SGPT) September 20, 2024 12:15pm September 20, 2024 12:15pm 25 U/L 16-63 Hematocrit September 20, 2024 12:15pm September 20, 2024 12:15pm 41.1 % Below low normal 42.0-54.0 Alanine Aminotransfer ase (ALT/SGPT) September 21, 2024 5:55am September 21, 2024 5:55am 16 U/L 16-63 Hematocrit September 21, 2024 5:55am September 21, 2024 5:55am 34.2 % Below low normal 42.0-54.0 Alanine Aminotransfer ase (ALT/SGPT) September 22, 2024 5:35am September 22, 2024 5:35am 15 U/L Below low normal 16-63 Hematocrit September 22, 2024 5:35am September 22, 2024 5:35am 33.8 % Below low normal 42.0-54.0 Alanine Aminotransfer ase (ALT/SGPT) September 23, 2024 5:30am September 23, 2024 5:30am 15 U/L Below low normal 16-63 Hematocrit September 23, 2024 5:30am September 23, 2024 5:30am 34.7 % Below low normal 42.0-54.0 Aspartate Amino Transf (AST/SGOT) September 20, 2024 12:15pm September 20, 2024 12:15pm 28 U/L 15-37 Hemoglobin September 20, 2024 12:15pm September 20, 2024 12:15pm 14.0 g/dL 14.0-18.0 Aspartate Amino Transf (AST/SGOT) September 21, 2024 5:55am September 21, 2024 5:55am 21 U/L 15-37 Hemoglobin September 21, 2024 5:55am September 21, 2024 5:55am 11.6 g/dL Below low normal 14.0-18.0 Aspartate Amino Transf (AST/SGOT) September 22, 2024 5:35am September 22, 2024 5:35am 20 U/L 15-37 Hemoglobin September 22, 2024 5:35am September 22, 2024 5:35am 11.8 g/dL Below low normal 14.0-18.0 Aspartate Amino Transf (AST/SGOT) September 23, 2024 5:30am September 23, 2024 5:30am 22 U/L 15-37 Hemoglobin September 23, 2024 5:30am September 23, 2024 5:30am 11.9 g/dL Below low normal 14.0-18.0 BUN/Creatinin e Ratio September 20, 2024 12:15pm September 20, 2024 12:15pm 13.1 Immature Granulocyte # (Auto) September 20, 2024 12:15pm September 20, 2024 12:15pm 0.04 10 3/uL Above high normal 0.00-0.03 BUN/Creatinin e Ratio September 21, 2024 5:55am September 21, 2024 5:55am 20.3 Immature Granulocyte # (Auto) September 21, 2024 5:55am September 21, 2024 5:55am 0.06 10 3/uL Above high normal 0.00-0.03 BUN/Creatinin e Ratio September 22, 2024 5:35am September 22, 2024 5:35am 21.2 Immature Granulocyte # (Auto) September 22, 2024 5:35am September 22, 2024 5:35am 0.04 10 3/uL Above high normal 0.00-0.03 BUN/Creatinin e Ratio September 23, 2024 5:30am September 23, 2024 5:30am 23.4 Immature Granulocyte # (Auto) September 23, 2024 5:30am September 23, 2024 5:30am 0.03 10 3/uL 0.00-0.03 Blood Urea Nitrogen September 20, 2024 12:15pm September 20, 2024 12:15pm 18.0 mg/dL 7.0-18.0 Immature Granulocyte % (Auto) September 20, 2024 12:15pm September 20, 2024 12:15pm 0.3 % 0.0-0.5 Blood Urea Nitrogen September 21, 2024 5:55am September 21, 2024 5:55am 24.0 mg/dL Above high normal 7.0-18.0 Immature Granulocyte % (Auto) September 21, 2024 5:55am September 21, 2024 5:55am 0.5 % 0.0-0.5 Blood Urea Nitrogen September 22, 2024 5:35am September 22, 2024 5:35am 21.0 mg/dL Above high normal 7.0-18.0 Immature Granulocyte % (Auto) September 22, 2024 5:35am September 22, 2024 5:35am 0.4 % 0.0-0.5 Blood Urea Nitrogen September 23, 2024 5:30am September 23, 2024 5:30am 22.0 mg/dL Above high normal 7.0-18.0 Immature Granulocyte % (Auto) September 23, 2024 5:30am September 23, 2024 5:30am 0.3 % 0.0-0.5 Calcium Level September 20, 2024 12:15pm September 20, 2024 12:15pm 9.6 mg/dL 8.5-10.1 Lymphocytes # (Auto) September 20, 2024 12:15pm September 20, 2024 12:15pm 1.9 10 3/uL 1.2-3.8 Calcium Level September 21, 2024 5:55am September 21, 2024 5:55am 8.8 mg/dL 8.5-10.1 Lymphocytes # (Auto) September 21, 2024 5:55am September 21, 2024 5:55am 1.9 10 3/uL 1.2-3.8 Calcium Level September 22, 2024 5:35am September 22, 2024 5:35am 8.7 mg/dL 8.5-10.1 Lymphocytes # (Auto) September 22, 2024 5:35am September 22, 2024 5:35am 1.7 10 3/uL 1.2-3.8 Calcium Level September 23, 2024 5:30am September 23, 2024 5:30am 9.0 mg/dL 8.5-10.1 Lymphocytes # (Auto) September 23, 2024 5:30am September 23, 2024 5:30am 1.6 10 3/uL 1.2-3.8 Chloride Level September 20, 2024 12:15pm September 20, 2024 12:15pm 99 mmol/L 98-107 Lymphocytes (%) (Auto) September 20, 2024 12:15pm September 20, 2024 12:15pm 15.9 % Below low normal 20.5-60.0 Chloride Level September 21, 2024 5:55am September 21, 2024 5:55am 103 mmol/L 98-107 Lymphocytes (%) (Auto) September 21, 2024 5:55am September 21, 2024 5:55am 15.9 % Below low normal 20.5-60.0 Chloride Level September 22, 2024 5:35am September 22, 2024 5:35am 102 mmol/L 98-107 Lymphocytes (%) (Auto) September 22, 2024 5:35am September 22, 2024 5:35am 17.7 % Below low normal 20.5-60.0 Chloride Level September 23, 2024 5:30am September 23, 2024 5:30am 103 mmol/L 98-107 Lymphocytes (%) (Auto) September 23, 2024 5:30am September 23, 2024 5:30am 17.6 % Below low normal 20.5-60.0 Carbon Dioxide Level September 20, 2024 12:15pm September 20, 2024 12:15pm 28.1 mmol/L 21.0-32.0 Mean Corpuscular Hemoglobin September 20, 2024 12:15pm September 20, 2024 12:15pm 30.8 pg 25.9-34.0 Carbon Dioxide Level September 21, 2024 5:55am September 21, 2024 5:55am 24.5 mmol/L 21.0-32.0 Mean Corpuscular Hemoglobin September 21, 2024 5:55am September 21, 2024 5:55am 30.8 pg 25.9-34.0 Carbon Dioxide Level September 22, 2024 5:35am September 22, 2024 5:35am 23.7 mmol/L 21.0-32.0 Mean Corpuscular Hemoglobin September 22, 2024 5:35am September 22, 2024 5:35am 31.3 pg 25.9-34.0 Carbon Dioxide Level September 23, 2024 5:30am September 23, 2024 5:30am 26.0 mmol/L 21.0-32.0 Mean Corpuscular Hemoglobin September 23, 2024 5:30am September 23, 2024 5:30am 30.7 pg 25.9-34.0 Creatinine September 20, 2024 12:15pm September 20, 2024 12:15pm 1.37 mg/dL Above high normal 0.70-1.30 Mean Corpuscular Hemoglobin Concent September 20, 2024 12:15pm September 20, 2024 12:15pm 34.1 g/dL 29.9-35.2 Creatinine September 21, 2024 5:55am September 21, 2024 5:55am 1.18 mg/dL 0.70-1.30 Mean Corpuscular Hemoglobin Concent September 21, 2024 5:55am September 21, 2024 5:55am 33.9 g/dL 29.9-35.2 Creatinine September 22, 2024 5:35am September 22, 2024 5:35am 0.99 mg/dL 0.70-1.30 Mean Corpuscular Hemoglobin Concent September 22, 2024 5:35am September 22, 2024 5:35am 34.9 g/dL 29.9-35.2 Creatinine September 23, 2024 5:30am September 23, 2024 5:30am 0.94 mg/dL 0.70-1.30 Mean Corpuscular Hemoglobin Concent September 23, 2024 5:30am September 23, 2024 5:30am 34.3 g/dL 29.9-35.2 Estimated GFR () September 20, 2024 12:15pm September 20, 2024 12:15pm >60 >=60 mL/min/1.7 3m 2 Mean Corpuscular Volume September 20, 2024 12:15pm September 20, 2024 12:15pm 90.5 fL 80.0-94.0 Estimated GFR () September 21, 2024 5:55am September 21, 2024 5:55am >60 >=60 mL/min/1.7 3m 2 Mean Corpuscular Volume September 21, 2024 5:55am September 21, 2024 5:55am 90.7 fL 80.0-94.0 Estimated GFR () September 22, 2024 5:35am September 22, 2024 5:35am >60 >=60 mL/min/1.7 3m 2 Mean Corpuscular Volume September 22, 2024 5:35am September 22, 2024 5:35am 89.7 fL 80.0-94.0 Estimated GFR () September 23, 2024 5:30am September 23, 2024 5:30am >60 >=60 mL/min/1.7 3m 2 Mean Corpuscular Volume September 23, 2024 5:30am September 23, 2024 5:30am 89.7 fL 80.0-94.0 Estimated GFR (Non- September 20, 2024 12:15pm September 20, 2024 12:15pm 52 Below low normal >=60 mL/min/1.7 3m 2 Monocytes # (Auto) September 20, 2024 12:15pm September 20, 2024 12:15pm 1.4 10 3/uL Above high normal 0.3-0.8 Estimated GFR (Non- September 21, 2024 5:55am September 21, 2024 5:55am >60 >=60 mL/min/1.7 3m 2 Monocytes # (Auto) September 21, 2024 5:55am September 21, 2024 5:55am 1.5 10 3/uL Above high normal 0.3-0.8 Estimated GFR (Non- September 22, 2024 5:35am September 22, 2024 5:35am >60 >=60 mL/min/1.7 3m 2 Monocytes # (Auto) September 22, 2024 5:35am September 22, 2024 5:35am 1.2 10 3/uL Above high normal 0.3-0.8 Estimated GFR (Non- September 23, 2024 5:30am September 23, 2024 5:30am >60 >=60 mL/min/1.7 3m 2 Monocytes # (Auto) September 23, 2024 5:30am September 23, 2024 5:30am 1.4 10 3/uL Above high normal 0.3-0.8 Globulin September 20, 2024 12:15pm September 20, 2024 12:15pm 6.6 g/dL Monocytes (%) (Auto) September 20, 2024 12:15pm September 20, 2024 12:15pm 12.1 % Above high normal 1.7-12.0 Globulin September 21, 2024 5:55am September 21, 2024 5:55am 5.6 g/dL Monocytes (%) (Auto) September 21, 2024 5:55am September 21, 2024 5:55am 12.6 % Above high normal 1.7-12.0 Globulin September 22, 2024 5:35am September 22, 2024 5:35am 5.4 g/dL Monocytes (%) (Auto) September 22, 2024 5:35am September 22, 2024 5:35am 12.8 % Above high normal 1.7-12.0 Globulin September 23, 2024 5:30am September 23, 2024 5:30am 5.6 g/dL Monocytes (%) (Auto) September 23, 2024 5:30am September 23, 2024 5:30am 15.6 % Above high normal 1.7-12.0 Glucose Level September 20, 2024 12:15pm September 20, 2024 12:15pm 130 mg/dL Above high normal 74-106 Mean Platelet Volume September 20, 2024 12:15pm September 20, 2024 12:15pm 9.5 fL 9.5-13.5 Glucose Level September 21, 2024 5:55am September 21, 2024 5:55am 106 mg/dL 74-106 Mean Platelet Volume September 21, 2024 5:55am September 21, 2024 5:55am 9.7 fL 9.5-13.5 Glucose Level September 22, 2024 5:35am September 22, 2024 5:35am 87 mg/dL 74-106 Mean Platelet Volume September 22, 2024 5:35am September 22, 2024 5:35am 9.6 fL 9.5-13.5 Glucose Level September 23, 2024 5:30am September 23, 2024 5:30am 124 mg/dL Above high normal 74-106 Mean Platelet Volume September 23, 2024 5:30am September 23, 2024 5:30am 9.5 fL 9.5-13.5 Potassium Level September 20, 2024 12:15pm September 20, 2024 12:15pm 4.5 mmol/L 3.5-5.1 Neutrophils # (Auto) September 20, 2024 12:15pm September 20, 2024 12:15pm 8.5 10 3/uL Above high normal 1.4-6.5 Potassium Level September 21, 2024 5:55am September 21, 2024 5:55am 4.6 mmol/L 3.5-5.1 Neutrophils # (Auto) September 21, 2024 5:55am September 21, 2024 5:55am 8.4 10 3/uL Above high normal 1.4-6.5 Potassium Level September 22, 2024 5:35am September 22, 2024 5:35am 4.4 mmol/L 3.5-5.1 Neutrophils # (Auto) September 22, 2024 5:35am September 22, 2024 5:35am 6.6 10 3/uL Above high normal 1.4-6.5 Potassium Level September 23, 2024 5:30am September 23, 2024 5:30am 4.1 mmol/L 3.5-5.1 Neutrophils # (Auto) September 23, 2024 5:30am September 23, 2024 5:30am 6.0 10 3/uL 1.4-6.5 Sodium Level September 20, 2024 12:15pm September 20, 2024 12:15pm 132 mmol/L Below low normal 136-145 Neutrophils (%) (Auto) September 20, 2024 12:15pm September 20, 2024 12:15pm 70.9 % 43.0-75.0 Sodium Level September 21, 2024 5:55am September 21, 2024 5:55am 137 mmol/L 136-145 Neutrophils (%) (Auto) September 21, 2024 5:55am September 21, 2024 5:55am 70.2 % 43.0-75.0 Sodium Level September 22, 2024 5:35am September 22, 2024 5:35am 137 mmol/L 136-145 Neutrophils (%) (Auto) September 22, 2024 5:35am September 22, 2024 5:35am 68.3 % 43.0-75.0 Sodium Level September 23, 2024 5:30am September 23, 2024 5:30am 139 mmol/L 136-145 Neutrophils (%) (Auto) September 23, 2024 5:30am September 23, 2024 5:30am 65.6 % 43.0-75.0 Total Bilirubin September 20, 2024 12:15pm September 20, 2024 12:15pm 0.7 mg/dL 0.2-1.0 Platelet Count September 20, 2024 12:15pm September 20, 2024 12:15pm 401 10 3/uL 150-450 Total Bilirubin September 21, 2024 5:55am September 21, 2024 5:55am 0.5 mg/dL 0.2-1.0 Platelet Count September 21, 2024 5:55am September 21, 2024 5:55am 314 10 3/uL 150-450 Total Bilirubin September 22, 2024 5:35am September 22, 2024 5:35am 0.4 mg/dL 0.2-1.0 Platelet Count September 22, 2024 5:35am September 22, 2024 5:35am 334 10 3/uL 150-450 Total Bilirubin September 23, 2024 5:30am September 23, 2024 5:30am 0.3 mg/dL 0.2-1.0 Platelet Count September 23, 2024 5:30am September 23, 2024 5:30am 339 10 3/uL 150-450 Total Protein September 20, 2024 12:15pm September 20, 2024 12:15pm 9.0 g/dL Above high normal 6.4-8.2 Red Blood Count September 20, 2024 12:15pm September 20, 2024 12:15pm 4.54 10 6/uL Below low normal 4.70-6.10 Total Protein September 21, 2024 5:55am September 21, 2024 5:55am 7.5 g/dL 6.4-8.2 Red Blood Count September 21, 2024 5:55am September 21, 2024 5:55am 3.77 10 6/uL Below low normal 4.70-6.10 Total Protein September 22, 2024 5:35am September 22, 2024 5:35am 7.3 g/dL 6.4-8.2 Red Blood Count September 22, 2024 5:35am September 22, 2024 5:35am 3.77 10 6/uL Below low normal 4.70-6.10 Total Protein September 23, 2024 5:30am September 23, 2024 5:30am 7.4 g/dL 6.4-8.2 Red Blood Count September 23, 2024 5:30am September 23, 2024 5:30am 3.87 10 6/uL Below low normal 4.70-6.10 Red Cell Distribution Width September 20, 2024 12:15pm September 20, 2024 12:15pm 11.2 % 11.0-15.0 Red Cell Distribution Width September 21, 2024 5:55am September 21, 2024 5:55am 11.3 % 11.0-15.0 Red Cell Distribution Width September 22, 2024 5:35am September 22, 2024 5:35am 11.1 % 11.0-15.0 Red Cell Distribution Width September 23, 2024 5:30am September 23, 2024 5:30am 11.0 % 11.0-15.0 Corrected White Blood Count September 20, 2024 12:15pm September 20, 2024 12:15pm 11.9 10 3/uL Above high normal 4.0-11.0 Corrected White Blood Count September 21, 2024 5:55am September 21, 2024 5:55am 11.9 10 3/uL Above high normal 4.0-11.0 Corrected White Blood Count September 22, 2024 5:35am September 22, 2024 5:35am 9.6 10 3/uL 4.0-11.0 Corrected White Blood Count September 23, 2024 5:30am September 23, 2024 5:30am 9.1 10 3/uL 4.0-11.0 Vital Signs Vital Reading Result Reference Range Collection Date/Time Height 68.5 [in_i] October 09, 2024 8:41am Weight 72.60 kg October 09, 2024 8:41am Heart Rate 88 /min 60-100 October 09, 2024 8:41am Respiratory rate 18 /min 12-24 October 09, 2 025 8:41am Oxygen saturation by Pulse oximetry 98 % 95-10 0 October 09, 2024 8:41am BP Systolic 91 mm[Hg] 100-140 October 09, 2024 8:41am BP Diastolic 66 mm[Hg] 60-100 October 09, 2024 8:41am BMI (Body Mass Index) 24.0 kg/m2 October 092024 8:41am Advance Directives Advance Directive Response Recorded Date/ Time Advance Directives No June 10:22am Insurance Providers Guarantor Chitra Rivas Address [address] [facility] [address] Contact Info. Home Phone: Payer Policy Id Subscriber's Name Subscriber Id Effectiv e Date Expiration Date [facility] [place] [id number] Liseth Rodriguez [id number] Encounters Encounter Location(s) Arrival/Admit Date Discharge/Depart Date Provider(s) Non-patient / Non-visit -[facility] September 20, 2024 12:15pm Krys Hummel MD Non-patient / Non-visit -[facility] September 21, 2024 5:55am Shaikh Shaji MD Non-patient / Non-visit -[facility] September 22, 2024 5:35am Shaikh Shaji MD Non-patient / Non-visit -[facility] September 23, 2024 5:30am Shaikh Shaji MD Departed Referred -[facility] September 23, 2024 9:38am September 23, 2024 9:39am Colton Spears DPM MS Non-patient / Non-visit -[facility] September 24, 2024 8:46am Desiree Garcia CMA Departed Physician/Prov ider Office Visit -[facility] October 09, 2024 8:20am October 09, 2024 9:33am Yolette Pierre APRN Departed Referred -[facility] October 29, 2024 2:45pm October 29, 2024 2:46pm Colton Spears DPM MS Recent Diagnosis Onset Date Admit Date BMI 25.0-25.9,adult Unknown October 09 8:20am Dietary counseling and surveillance Unknown October 09, 2024 8:20am HTN (hypertension) Unknown October 09 8:20am Hyperlipidemia Unknown October 09, 2024 8 :20am Hypotension Unknown October 09, 2024 8 :20am [facility] 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 insulin Unknown October 09, 2024 8:20am Persistent albuminuria Unknown October 09, 2024 8:20am Type 2 diabetes mellitus with hyperglycemia Unkn own October 09, 2024 8:20am Vitamin D deficiency Unknown October 09, 8:20am Assessments Diagnosis Onset Date Resolution Status Admit Date BMI 25.0-25.9,adult acute October 09, 2024 8:20am Dietary counseling and surveillance acute October 09, 2024 8 :20am HTN (hypertension) acute October 092024 8:20am Hyperlipidemia acute October 09, 2024 8:20am Hypotension acute October 09 8:20am [facility] 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 insulin acu te October 09, 2024 8:20am Persistent albuminuria acute Ju 2024 8:20am Type 2 diabetes mellitus wit h hyperglycemia acute October 09, 2024 8 :20am Vitamin D deficiency acute October 09, 2024 8:20am Plan of Treatment Author Yolette [facility] Authored October 09, 2024 11:53 am Miladys AGP 26 September through 2024, CGM active 88%, average glucose 123, GMI 6.3%, variability is 15.1%. Ranges: Greater than 250 is 0%, 181-250 is 0%, 70-180 is 100%, less than 69 is 0 0%. Miladys AGP 03 June through 16 June 2024, CGM active 90%, average sugar 130, GMI 6.4%, variability is 27.0%. Ranges: Greater than 250 0%, 181-250 is 11%, 70-180 is 88%, 54-69 1%, below 54 0%. Libre2 AGP 10 April through 23 April 2024, CGM active 91%, average glucose 154, GMI 7.0%, variability is 29.5%. Ranges: Greater than 250 is 2%, 181-250 is 29%, 7280 is 68%, 54-69 is 1%, below 54 0%. Benefiting from CGM for surveillance and titration of insulin. Miladys AGP 07 January through 21 January 2024, CGM active 89%, average glucose 159, GMI 7.1%, variability is 20.4%. Ranges: Greater than 250 is 2%, 181-250 is 15%, 70-180 is 83%, below 69 0 0%. Meter: Miladys AGP 26 August through 09 Sep 2023, active 94%, average blood glucose is 150, GMI 6.9%, variability is 22.3%. Ranges: Greater than 250 is 2%, 181-250 is 13%, 70-180 is 85%below 69 0 0%. Any hypoglycemic events: denies Regular physical activity: no formal exercise-- current rib pain r/t fractures Nutrition: Only eating 1 meal per day, denies nausea or aversion, does not occur to him Patient concerns for today: optimization Any recent hospitalizations: Recent right great toe removal in the last month by Dr. Spears pending follow-up, subsequent vascular testing, sounds like ABIs, no results yet Prescriptions needed: Patient assistance [place] and and Brayden ASSESSMENT: 1. Reasonable controlled, a Type 2 diabetes with A1c of 6.6%, was 7.1%, 6.8%, 6.4%, 6.9 %, GOAL A1C < 7.5%. GMI today 6.3 % no lows current diabetes regime: Lantus 40 u once daily, Humalog 1:50 ISS, no ICR (using 1 to 2 units/day for blood glucose greater than 150), takes metformin 2 am, 1 pm-- Ozempic 1 mg weekly, approved and refused patient assistance. Taking Farxiga 10 mg once daily. Back on statin and lisinopril. Challenged health care literacy. Now seeing community health services. 2. Blood glucose levels have remained stable BP low today, asymptomatic but reports being lightheaded within the past couple weeks upon standing, single episode of syncope per his report. Hold lisinopril for now, close follow-up, sending notes to primary care reduce Lantus to 38 u daily, further reduction of long acting insulin by 10% or 3 u for AM fasting under 100 3/7 days a week, or dropping night to AM 50 mg/dl or more, call office if questions. Likely need for further reduction with Ozempic dose if weight further decline Continue Lispro ISS 1:40 if BG elevated. Has written instructions Encouraged eating breakfast, if continued weight loss or food aversion would reduce Ozempic. Patient stating food does not occur to him. Eating once per day. Encouraged meal supplement, Ensure or full meal 2-3 times per day. States understanding. Protein list provided and discussed. Defers RD due to transportation issues PAP brayden approved Ozempic, Jamilah Farxiga Continue Ozempic 1 mg weekly continue Farxiga 10 mg when available, patient assistance applied, questionable intolerance to Jardiance. SGLT2i beneficial due to microalbuminuria Rosuvastatin LIPIDS pending yearly check [facility]-repeat next visit Prescription requests: Italo-- patient has PAP approval letter-- to call for voucher FORWARD NOTES TO PCP 6 week appt DCS-- Close followup -- transportation issues, need to call if can't make appointment, could have phone conversation to assure needs met/ followup 3. Patient is alert, oriented and receptive [...] diabetes, progressive beta cell , concepts of basal/bolus/corrective insulin requirements. Basal: The goal is fasting [...] doses and confirm symptoms for hypoglycemia and hyperglycemia. 5. [facility]. Contact office if any issues or concerns with patterns of hypoglycemia, hyperglycemia, or diabetes medication issues. Future Tests Future scheduled test information is unavailable Pending Tests Test Name Ordered Date Scheduled Date Miscellaneous Pathology Test October 29, 2024 2:4 5pm Future Visits Future appointment information is unavailable Referrals to Other Providers Referral information is unavailable Future Procedures Procedure Name Ordered Date Scheduled Date Pathology Request for Lab David October 30, 2024 1 :19pm October 29, 2024 2:45pm Future Medications Future medication information is unavailable Patient Instructions Patient instructions are unavailable
== END 2024-10-31 09:57 | disposition home or self-care (01) ==
LOC: WC 09:56
PROVIDERS: PCP Family Medicine; Visit Provider Podiatrist Foot & Ankle Surgery
DX: I70.261 Atherosclerosis of native arteries of extremities with gangrene, right leg (principal); L97.514 Non-pressure chronic ulcer of other part of right foot with necrosis of bone; M79.671 Pain in right foot; M85.871 Other specified disorders of bone density and structure, right ankle and foot

== ENCOUNTER 2024-11-03 11:05 | Outpatient (OUT) | payer MEDICARE, SELFPAY ==
--- OUTSIDE RECORDS SUMMARY | 2024-10-23 10:50 | XMS_ITS | Encounter Summary ---
Author Organization [employer] [facility] Address [facility] [id number] [address] [place] [address] Care Team Providers Care Community Service Specialist Name Role Phone No Pcp, No Pcp Primary Care Provider Unavailabl e Reason for Visit * Reason Comments Critical limb ischemia of right lower ex tremity with gangre rt leg angiogram 10-17-24 Encounter Details Date Type Department Care Team (Late st Contact Info) Description 10/23/2024 10:50 AM EDT Office Visit [facility] [place] [address] [place] [address] Jamil Culver MD [address], [address] [address] Critical limb ischemia of right lower extremity [...] Diagnosis Date Diabetes mellitus type 2, controlled ([facility]) Hyperlipidemia Hypertension Past Surgical History: Past Surgical History: Procedure Laterality Date lower ext angio Right 10/17/2024 Performed by Jamil Culver MD at [facility] CARDIAC CATH LABS Social and Family History: [...] Primary documented in this encounter Care Teams Community Service Specialist Relationship Specialty Start Date End Date No Pcp, [place] [address] PCP - General Family Medicine 04/11/24 documented as of this encounter
--- OUTSIDE RECORDS SUMMARY | 2024-11-03 11:08 | XMS_ITS | Clinical Summary ---
Author Organization [employer] tem Address [id number] [address] [place] [address] Care Team Providers Care Data Processing Equipment Repairer Name Role Phone No Pcp, No Pcp [...] Description 10/23/2024 10:50 AM EDT Office Visit [facility] [place] [address] [address] [address] Jamil Culver MD Critical limb ischemia of right lower extremity with gangrene ([facility]) (Primary Dx) 10/23/2024 Travel 10/17/2024 12:00 PM EDT - 10/17/2024 12:45 PM EDT Surgery [facility] Cardiac Cath [address] [place] [address] Jamil Culver MD lower ext angio 10/17/2024 10:16 AM EDT - 10/17/2024 4:50 PM EDT Hospital Encounter [facility] - CVU-IVU [address] [place] [address] Jamil Culver MD PAD (peripheral artery disease); Gangrene (CMS-HCC); Critical limb ischemia of right lower extremity with gangrene ([facility]-H[facility]) Discharge Disposition: Home 10/17/2024 Travel 10/07/2024 3:35 PM EDT - 10/07/2024 11:59 PM EDT Hospital Encounter [facility] - Vascular [address] [place] [address] Poor circulation; Gangrene (CMS-HCC); PAD (peripheral artery disease) Discharge Disposition: Home 10/07/2024 Travel 09/25/2024 11:00 AM EDT Office Visit [facility] Vascular Surgery [address] [place] [phone] Jamil Culver MD Critical limb ischemia of right lower extremity with gangrene ([facility]-HCC) (Primary Dx); PAD (peripheral artery disease); Gangrene [...] 10/07/2024 4:29 PM EDT Poor circulation Gangrene ([facility]-HCC) PAD (peripheral artery disease) from Last 3 Months Results * VASCULAR INVASIVE (10/17/2024 12:31 PM EDT) Anatomical Region Laterality Modality X-Ray Angiograph y Narrative 10/17/2024 2:19 PM EDT Recommendations: No evidence of significant arterial occlusive disease. Continue wound care and follow up with Podiatry. Procedure Details Patient Name: Jassi Rodriguez Medical Record: [id number] Date of Operation: 10/17/2024 Preoperative Diagnosis: Right [...] The patient was then taken to the mini lab operator and transferred to the table. Bilateral groins [...] - 99 mg/dL 10/20/2024 9:02 AM EDT [facility] 10/17/2024 10:4 9 AM EDT 10/20/2024 9:02 AM EDT Jamil Culver MD POINT OF CARE TEST ORDERABLES Final Result [facility] [address] [place] [address], * POCT BUN, creat (10/17/2024 10:49 AM EDT) POC BUN 17 6 - 27 mg/dL 10/20/2024 9:02 AM EDT [facility] POC Creatinine 1.1 0.7 - 1.2 mg/dL 10/20/2024 9:02 AM EDT [facility] POC EGFR Non-Race Dependent 75 >=60 ml/min/1.7 3sq.m 10/20/2024 9:02 AM EDT [facility] Comment: Reported eGFR is based on the CKD-EPI 2020 equation that does not use a race coefficient. 10/17/2024 10:4 9 AM EDT 10/20/2024 9:02 AM EDT us Jamil Culver MD POINT OF CARE TEST ORDERABLES Final Result [facility] [address] [place] [address], [place] * Vas art doppler lwr bilat [...] nal Result from Last 3 Months Insurance [facility] MEDICARE Advance Directives * Full Code (Latest Code Status on File) Date Activated Date Inactivated Comments 09/16/2016 8:20 PM 09/22/2016 8:22 PM * Full Code Date Activated Date Inactivated Comments 09/16/2016 1:01 PM 09/16/2016 8:20 PM Care Teams Data Processing Equipment Repairer Relationship Specialty Start Date End Date No Pcp, [place] [address] PCP - General Family Medicine 04/11/24
--- OUTSIDE RECORDS SUMMARY | 2024-11-03 11:08 | XMS_ITS | Clinical Summary ---
Author Organization [facility] Address [address] [place] [address] Care Team Providers Care Supervisor Telephone Clerks Name Role Phone Raman Daley DO Unavailable [phone] Leticia Blanco RACEBOOK WRITER Unavailable [phone] Suzanna Ybarra NP Unavailable Unavailable Allergies [...] Plan of Treatment Not on file Insurance [facility] Care Teams Supervisor Telephone Clerks Relationship Specialty Start Date End Date Raman Daley DO [address] [place] [phone] Referring Physician Neurology 04/07/24 Leticia Blanco NP [address] [address] Nurse Practitioner Neurology 04/07/24 Suzanna Ybarra NP [address] [address] Nurse Practitioner Neurology 04/07/24
--- OUTSIDE RECORDS SUMMARY | 2024-11-03 11:08 | XMS_ITS | Encounter Summary ---
Author Organization [employer] tem Address [id number] [address] [place] [address] Care Team Providers Care Account Support Analyst Name Role Phone No Pcp, No Pcp [...] on filedocumented in this encounter Care Teams Account Support Analyst Relationship Specialty Start Date End Date No Pcp, [place] [address] PCP - General Family Medicine 04/11/24 documented as of this encounter
== END 2024-11-03 11:06 | disposition home or self-care (01) ==
LOC: WC 11:06
PROVIDERS: PCP Family Medicine; Visit Provider Podiatrist Foot & Ankle Surgery
DX: I70.261 Atherosclerosis of native arteries of extremities with gangrene, right leg (principal); L97.514 Non-pressure chronic ulcer of other part of right foot with necrosis of bone
CPT/HCPCS: G0463

== ENCOUNTER 2024-11-05 12:53 | Outpatient (OUT) | payer MEDICARE, SELFPAY | END 2024-11-05 12:54 | disposition home or self-care (01) | LOC: WC 12:53 | PROVIDERS: PCP Family Medicine; Visit Provider Podiatrist Foot & Ankle Surgery | DX: I70.261 Atherosclerosis of native arteries of extremities with gangrene, right leg (principal); L97.514 Non-pressure chronic ulcer of other part of right foot with necrosis of bone | CPT/HCPCS: G0463 ==

== ENCOUNTER 2024-11-12 12:45 | Outpatient (OUT) | payer MEDICARE, SELFPAY ==
--- OUTSIDE RECORDS SUMMARY | 2024-03-26 06:01 | XMS_ITS ---
Author Organization The [facility] in [place] Address [address] [place] [address] Care Team Providers Care Fire Alarm Inspector Name Role Phone None, Unknown or Primary Care Provider Unavailab Marii Quesada Unavailable [phone] REASON FOR VISIT needs yearly appointment Encounters Encounter Location Date Provider Diagnosis [facility] [address] [place] [address] 03/26/2024 Marii Templeton Plan Of Treatment No Information Progress Notes * Nu RODRIGUEZ HDOB:1959 (64 yo M)Acc No.[id number]:03/26/2024 Patient: Romy KNIGHTjeanne Kasie :1960 A ge:64 Y S ex:Male Address:[address] [place] [address], * true * Date: Generated for Printi ng/Fakendrickg/eTransmitting on: 0 11/12/2024 12:50 PM EDT
--- OUTSIDE RECORDS SUMMARY | 2024-10-30 06:30 | XMS_ITS ---
Author Organization [facility] vices Address [address] [place], [place] [address] Care Team Providers Care Electrolysis Investigator Name Role Phone Ximena Walters Unavailable [phone] REASON FOR VISIT 6 month DM2, HTN Encounters Encounter Location Date Provider Diagnosis Main [address] [phone] 10/30/2024 Ximena Walters Plan Of Treatment No Information Progress Notes * RODRIGUEZJassi CONTRERASDOB: [birth year] (64 yo M)Acc No.[id number]:10/30/2024 Medical Note Patient: Jassi KNIGHT Provider: Jonah Walters :1960 A ge:64 Y S ex:Male Date:10/30/2024 Address:[address] [place], [place] [phone] Subjective: * Chief Complaints: * 1 . 6 month DM2, HTN. * Medical History: Objective: * Vitals: Assessment: Plan: * Treatment: * Billing Information: * Visit Code: * Procedure Codes: * Electronic signature of LEXY Horton sa on 11/12/2024 at 12:49 PM EDT Sign off status: Pending * Provider: Jonah Walters Date: 10/30/2024 Generated for Meliza gonzalez/Gabriel/eTransmitting on: 0 11/12/2024 12:49 PM EDT
--- OUTSIDE RECORDS SUMMARY | 2024-11-12 12:49 | XMS_ITS | Clinical Summary ---
Author Organization [facility] Address [address] [place] [address] Care Team Providers Care Systems Requirements Planner Name Role Phone Raman Daley DO Unavailable [phone] Leticia Blanco TAR DISTRIBUTOR OPERATOR Unavailable [phone] Suzanna Ybarra NP Unavailable Unavailable Allergies [...] Plan of Treatment Not on file Insurance [facility] Care Teams Systems Requirements Planner Relationship Specialty Start Date End Date Raman Daley DO [address] [place] [phone] Referring Physician Neurology 04/07/24 Leticia Blanco NP [address] [address] Nurse Practitioner Neurology 04/07/24 Suzanna Ybarra NP [address] [address] Nurse Practitioner Neurology 04/07/24
--- OUTSIDE RECORDS SUMMARY | 2024-11-12 12:50 | XMS_ITS | Patient Health Record ---
Author Organization [facility] Address [address] [place] [address] Care Team Providers Care Statistical Developer Name Role Phone None, Unknown or Primary Care Provider Unavailab Marii Quesada Unavailable [phone] Results Component Value Reference Range Notes ECG 12 lead Reviewed date:09/22/2024 07:01:41 PM Interpretation: Performing Lab: Notes/Report: Source Facility: [place] [address] [place] [address] Electrocardiograph Report Draft Patient: LAN RODRIGUEZ MR#: [id number] : 1960 Acct:[id number] Age/Sex: 64 / M ADM Date: 09/20/24 Loc: MS 230-[address]: Josse Barajas M.D. Ordering Physician: Josse Barajas M.D. 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 Ordering Physician: Josse Barajas M.D. 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 Gram Stain Result Gram Stain Result Gram Stain Result Gram Stain Result No organisms seen Gram Stain Result Gram Stain Result Performed at: [facility] Gram Stain Result Gram Stain Result [address] [place], [place] [phone] Gram Stain Result Gram Stain Result Foundry Technician: Jorge Luis Vergara PhD, Phone: [phone] Gram Stain Result Performing Lab: see note SEE REPORT - Aircraft Accessories Mechanic Id information not found for OBX-specific web content producer legend LC - [facility] LB Anaerobic Cult, Extended Inc ub (Not yet reviewed by provider) Interpretation: Performing Lab: Notes/Report: [facility] , Anaerobic Cult, Extended Incub See Below For Report O:BACFRA Isolated Anaerobic Cult, Extended Incub Anaerobic Cult, Extended Incub No aerobic or anaerobic growth in five days. O:BACFRA Isolated Anaerobic Cult, Extended Incub Anaerobic Cult, Extended Incub Organism: Bacteroides fragilis : O:BACFRA Isolated Anaerobic Cult, Extended Incub Anaerobic Cult, Extended Incub *ABNORMAL* O:BACFRA Isolated Anaerobic Cult, Extended Incub Anaerobic Cult, Extended Incub Recovered from broth only. O:BACFRA Isolated Anaerobic Cult, Extended Incub Anaerobic Cult, Extended Incub Studies at [facility] have confirmed the observations O:BACFRA Isolated Anaerobic Cult, Extended Incub Anaerobic Cult, Extended Incub of others who have demonstrated that Bacteroides O:BACFRA Isolated Anaerobic Cult, Extended Incub Anaerobic Cult, Extended Incub fragilis group are routinely susceptible to Cefoxitin, O:BACFRA Isolated Anaerobic Cult, Extended Incub Anaerobic Cult, Extended Incub Chloramphenicol, and Metronidazole and are usually O:BACFRA Isolated Anaerobic Cult, Extended Incub Anaerobic Cult, Extended Incub resistant to Penicillin, and variably in resistance to O:BACFRA Isolated Anaerobic Cult, Extended Incub Anaerobic Cult, Extended Incub Clindamycin. O:BACFRA Isolated Anaerobic Cult, Extended Incub Anaerobic Cult, Extended Incub Bacteroides fragilis O:BACFRA Isolated Anaerobic Cult, Extended Incub Anaerobic Cult, Extended Incub See Below For Report O:BACFRA Isolated Anaerobic Cult, Extended Incub Performing Lab: see note [facility] LB Tissue Culture (Not yet revi ewed [...] FOLLOW Tissue Culture Performing Lab: see note [facility] Fungus (Mycology) Culture (N ot yet reviewed by provider) Interpretation: Performing Lab: Notes/Report: Comment Proximal [facility] , Fungus (Mycology) Culture See Below For Report Fungus (Mycology) Culture Fungus (Mycology) Culture Culture Report: Fungus (Mycology) Culture Fungus (Mycology) Culture The specimen submitted for fungus culture has been received and Fungus (Mycology) Culture Fungus (Mycology) Culture culture has been initiated. Fungus (Myco logy) Culture Fungus (Mycology) Culture Performed at: [facility] Fungus (Mycology) Culture Fungus (Mycology) Culture [address] [place], [place] [phone] Fungus (Mycology) Culture Fungus (Mycology) Culture Foundry Technician: Giovanny Vergara PhD, Phone: [phone] Fungus (Mycology) Culture Performing Lab: see note LC - [facility] LB SEE REPORT - Aircraft Accessories Mechanic Id information not found for OBX-specific web content producer legend Fungus (Mycology) Culture (N ot yet [...] (Mycology) Culture Fungus (Mycology) Culture Performed at: [facility] Fungus (Mycology) Culture Fungus (Mycology) Culture [address] [place], [place] [phone] Fungus (Mycology) Culture Fungus (Mycology) Culture Foundry Technician: Giovanny Vergara PhD, Phone: [phone] Fungus (Mycology) Culture Performing Lab: see note - [facility] LB SEE REPORT - Aircraft Accessories Mechanic Id information not found for OBX-specific web content producer legend Fungus Stain (Not yet review ed by provider) Interpretation: Performing Lab: Notes/Report: Comment Proximal phalanx [facility] , Fungus Stain See Below For Report Fungus Stain Fungus Stain KALE/Calcofluor prepa ration: no fungus observed. Fungus Stain Performing Lab: see note - [facility] LB Acid Fast Culture (Not yet r eviewed by provider) Interpretation: Performing Lab: Notes/Report: Comment Proximal phalanx [facility] , Acid Fast Culture See Below For Report Specimen has been received and testing has been initiated. Acid Fast Culture Acid Fast Culture Performed at: [facility] Specimen has been received and testing has been initiated. Acid Fast Culture Acid Fast Culture [address] [place], [place] [phone] Specimen has been received and testing has been initiated. Acid Fast Culture Acid Fast Culture Foundry Technician: Jorge Luis Vergara PhD, Phone: [phone] Specimen has been received and testing has been initiated. Acid Fast Culture Performing Lab: see note SEE REPORT - Aircraft Accessories Mechanic Id information not found for OBX-specific web content producer legend - [facility] LB Acid Fast Smear (Not yet rev [...] 08:08:00 PM Interpretation: Performing Lab: Notes/Report: [facility] , C Reactive Protein 3.19 <=0.50 mg/dL Performing Lab: see note ML - [facility] LB VANCOMYCIN TROUGH Reviewed date:09/23/2024 08:08:00 PM Interpretation: Performing Lab: Notes/Report: [facility] , Vancomycin Trough 18.3 5.0-20.0 ug/mL Performing Lab: see note ML - [facility] LB CRP Reviewed date:09/22/2024 12:58:38 PM Interpretation: Performing Lab: Notes/Report: [facility] , C Reactive Protein 4.29 <=0.50 mg/dL Performing Lab: see note ML - [facility] LB XR foot RT min 3V Reviewed date:09/23/2024 08:08:00 PM Interpretation: Performing Lab: Notes/Report: Source Facility: [facility] [place] [address] [place] [address] XRay Report Signed Patient: LAN RODRIGUEZ MR#: [id number] : 1960 Acct:[id number] Age/Sex: 64 / M ADM Date: 09/20/24 Loc: MS 230-[address]: Josse Barajas M.D. Ordering Physician: Colton Spears D.P.M. Date of Service: 09/23/24 Procedure(s): XR foot RT min 3V Accession Number(s): [id number] cc: Le Mares M.D.; Colton Spears D.P.M. [address] [place] [address] Patient Name: LAN RODRIGUEZ MRN: [id number] date: 1960 Sex: M Assigned Patient Location: MS Current Patient Location: MS Accession/Order Number: [id number] Exam Date: 09/23/2024 10:54 Report Date: 09/23/2024 [...] Blackwell M.D. 09/23/2024 10:55 AM Dictation Location: [place] [address] Electronically authenticated by: [id number] Y Date: 09/23/2024 10:55 Dictated By: Don Blackwell M.D. Signed By: 09/23/24 105 DD/ 54 TD/TT: Car Jockey: [place] [address] XRay Report Signed Patient: RENETTA RODRIGUEZ MR#: [id number] : 1960 Acct:[id number] Age/Sex: 64 / M ADM Date: 09/20/24 Loc: MS 230-[address]: Katlyn Barajas M.D. Ordering Physician: Colton Spears D.P.M. Date of Service: 09/23/24 Procedure(s): XR diane t RT min 3V Accession Number(s): [id number] cc: Le Mares; Colton Spears D.P.M. [place] [id number] Patient Name: LAN RODRIGUEZ MRN: [id number] date: 1960 Sex: M Assigned Patient Loc ation: MS Current Patient Loca tion: Accession/Order Numb er: [id number] Exam Date: 09/23/2024 10:54 Report Date: 09/23/2024 [...] Blackwell M.D. 09/23/2024 10:55 AM Dictation Location: [place] [address] Electronically authenticated by: [id number] Y Date: 09/23/2024 10:55 Dictated By: Don Blackwell M.D. Signed By: 09/23/24 1058 DD/ 1055 TD/TT: Car Jockey: Reason For Referral No Information Problems Problem Type SNOMED Code ICD Code Onset Dates Problem Status W/U Status Risk Notes Problem Diabetic neuropathy (217053331) Diabetic neuropathy (E11.40) Active confirmed Problem Leukocytosis (146932672) Leukocytosis (D72.829) Active confirmed Problem Protein calorie malnutrition (654602390) Protein calorie malnutrition (E46) Active confirmed Problem Dry gangrene (68796387) Dry gangrene (I96) Active confirmed Problem Osteomyelitis (80845804) Osteomyelitis of toe of right foot (M86.9) Active confirmed Encounters Encounter Location Date Provider Diagnosis [facility] [address] [place] [address] 03/26/2024 Marii Templeton Plan Of Treatment Pending [...] End Date [place] [address] [place] [address] [phone] [id number] Lan Rodriguez Self - patient is the insured
--- OUTSIDE RECORDS SUMMARY | 2024-11-12 12:50 | XMS_ITS | Clinical Summary ---
Author Organization [employer] Address [id number] [address] [place] [address] Care Team Providers Care Purchasing Administrative Assistant Name Role Phone No Pcp, No Pcp [...] Description 10/23/2024 10:50 AM EDT Office Visit [facility] Vascular [place] [address] [place] [address] Jamil Culver MD Critical limb ischemia of right lower extremity with gangrene ([facility]) (Primary Dx) 10/23/2024 Travel 10/17/2024 12:00 PM EDT - 10/17/2024 12:45 PM EDT Surgery [facility] Cardiac Cath [address] [place] [address] Jamil Culver MD lower ext angio 10/17/2024 10:16 AM EDT - 10/17/2024 4:50 PM EDT Hospital Encounter [facility] - CVU-IVU [address] [place] [address] Jamil Culver MD PAD (peripheral artery disease); Gangrene (CMS-HCC); Critical limb ischemia of right lower extremity with gangrene ([facility]) Discharge Disposition: Home 10/17/2024 Travel 10/07/2024 3:35 PM EDT - 10/07/2024 11:59 PM EDT Hospital Encounter [facility] - Vascular [address] [place] [address] Poor circulation; Gangrene (CMS-HCC); PAD (peripheral artery disease) Discharge Disposition: Home 10/07/2024 Travel 09/25/2024 11:00 AM EDT Office Visit [facility] Vascular Surgery [address] [place] [phone] Jamil Culver MD Critical limb ischemia of right lower extremity with gangrene ([facility]) (Primary Dx); PAD (peripheral artery disease); Gangrene [...] 10/07/2024 4:29 PM EDT Poor circulation Gangrene ([facility]) PAD (peripheral artery disease) from Last 3 Months Results * VASCULAR INVASIVE (10/17/2024 12:31 PM EDT) Anatomical Region Laterality Modality X-Ray Angiograph y Narrative 10/17/2024 2:19 PM EDT Recommendations: No evidence of significant arterial occlusive disease. Continue wound care and follow up with Podiatry. Procedure Details Patient Name: Jassi Rodriguez Medical Record: [id number] Date of Operation: 10/17/2024 Preoperative Diagnosis: Right [...] The patient was then taken to the laboratory analyst and transferred to the table. Bilateral groins [...] mg/dL 10/20/2024 9:02 AM EDT [facility] 10/17/2024 10:4 9 AM EDT 10/20/2024 9:02 AM EDT Jamil Culver MD POINT OF CARE TEST ORDERABLES Final Result [facility] [address] [place] [address], * POCT BUN, creat (10/17/2024 10:49 AM EDT) POC BUN 17 6 - 27 mg/dL 10/20/2024 9:02 AM EDT [facility] POC Creatinine 1.1 0.7 - 1.2 mg/dL 10/20/2024 9:02 AM EDT [facility] POC EGFR Non-Race Dependent 75 >=60 ml/min/1.7 3sq.m 10/20/2024 9:02 AM EDT [facility] Comment: Reported eGFR is based on the CKD-EPI 2020 equation that does not use a race coefficient. 10/17/2024 10:4 9 AM EDT 10/20/2024 9:02 AM EDT us Jamil Culver MD POINT OF CARE TEST ORDERABLES Final Result [facility] [address] [place] [address], [place] * Vas art doppler lwr bilat [...] from Last 3 Months Insurance [facility] MEDIC[facility] Advance Directives * Full Code (Latest Code Status on File) Date Activated Date Inactivated Comments 09/16/2016 8:20 PM 09/22/2016 8:22 PM * Full Code Date Activated Date Inactivated Comments 09/16/2016 1:01 PM 09/16/2016 8:20 PM Care Teams Purchasing Administrative Assistant Relationship Specialty Start Date End Date No Pcp[place] [address] PCP - General Family Medicine 04/11/24
--- OUTSIDE RECORDS SUMMARY | 2024-11-12 12:50 | XMS_ITS | Patient Health Record ---
Author Organization [facility] Address [address] [place], [place] [id number] Care Team Providers Care Saturator Operator Name Role Phone Ximena Walters Unavailable [phone] Ned Rizo Unavailable [phone] Allergies No Known Allergies Results Component Value [...] UNLESS OTHERWISE INDICATED, ALL TESTING PERFORMED AT: [employer] [address] [place] [id number] FIELD TRAINING MANAGER: SHIRLEY MCCARTY M.D. CLIA NUMBER [id number] CAP ACCREDITATION AUID [id number] Changes in testing location may be associated [...] Problem Status W/U Status Risk Notes Problem 963640156 Type 2 diabetes mellitus with diabetic polyneuropathy (E11.42) Active confirmed Problem 14892277 Essential hypertension (I10) Active confirmed Problem 49803004 Mild hyperlipidemia (E78.5) Active confirmed Problem Amputation of toe (518345711) Amputation toe (S98.139A) Active confirmed Vital Signs Heart Rate 97 /min 09/30/2024 denies pain. [place] Penelope tripp 09/30/2024 01:20:48 PM EDT > Temperature 97.4 degrees Fahrenheit 09/30/2024 fermin es pain. Penelope Faria 09/30/2024 01:20:48 PM EDT > Respiratory Rate 18 /min 09/30/2024 denies pain . Penelope Faria 09/30/2024 01:20:48 PM EDT > Blood pressure diastolic 72 mm Hg 09/30/2024 den ies pain. Penelope Faria 09/30/2024 01:20:48 PM EDT > Oximetry 98 % 09/30/2024 denies pain. [place] Penelope tripp 09/30/2024 01:20:48 PM EDT > Height-cm 175.26 cm 09/30/2024 denies pain. [place] Pen[place] tripp 09/30/2024 01:20:48 PM EDT > Weight-kg 72.53 kg 09/30/2024 denies pain. [place] Pen[place] tripp 09/30/2024 01:20:48 PM EDT > Height 69 in 09/30/2024 denies pain. [place] Pen[place] tripp 09/30/2024 01:20:48 PM EDT > Blood pressure systolic 101 mm Hg 09/30/2024 fermin es pain. Penelope Faria 09/30/2024 01:20:48 PM EDT > Weight 159.9 lbs 09/30/2024 denies pain. [place] Penelope tripp 09/30/2024 01:20:48 PM EDT > BMI 23.61 kg/m2 09/30/2024 denies pain. [place] Pen[place] tripp 09/30/2024 01:20:48 PM EDT > Encounters Encounter Location Date Provider Diagnosis [address] [place], [place] [id number] 04/17/2024 [facility] Encounter for well ness examination Z00.00 ; [...] index [BMI] 26.0-26.9, adult Z68.26 [address] [facility] [place] [place] [id number] 05/01/2024 [facility] Closed fracture of multiple ribs of right side with routine healing, subsequent encounter S22.41XD ; Essential hypertension I10 ; Mild hyperlipidemia E78.5 ; Type 2 diabetes mellitus with diabetic polyneuropathy E11.42 ; Body mass index [BMI] 25.0-25.9, adult Z68.25 and Overweight E66.3 [address] [place], [place] [id number] 09/30/2024 Ned Browne Mild hyperlipidemi a E78.5 ; Essential hypertension I10 ; Amputation toe S98.139A and Osteomyelitis of right foot, unspecified type M86.9 [address] [place], [place] [id number] 04/17/2024 [facility] [address] [place], [place] [id number] 05/15/2024 [facility] Essential hyperten nevin I10 and Mild hyperlipidemia E78.5 [address] [place], [place] [id number] 09/26/2024 Ned Rizo Assessments Encounter Date Diagnosis [...] PRN Continue following rachel Pierre CNP from [facility] 09/30/2024 Osteomyelitis of right foot, [...] Insured Coverage Start Date Coverage End Date [employer] [address] [place] [phone] [id number] Jassi Rodriguez Self - patient is the insured 5 Medical (General) History Medical History History ICD Code Type 2 Diabetes Hyperlipidemia Surgical History Surgery Date(Month/Year) [facility] right foot september 2024 Hospitalization History Reason Date(Month/Year) right foot september 2024
--- NOTE | 2024-11-12 12:52 | XR_ITS ---
The [address] [address] Patient Name: LAN WITT MRN: [id number] date: 1960 Sex: M Assigned Patient Location: [facility] Current Patient Location: Accession/Order Number: [id number] Exam Date: 11/12/2024 15:41 Report Date: 11/12/2024 15:45 At the request of: MAYRA JAQUEZ DPSaud Procedure: XR foot RT min 3V 3 views right foot plain film COMPARISON:10/31/2024 HISTORY: Follow-up assessment for wound involving the second toe. ACUTE FINDINGS: Gallbladder displaced fracture shaft of the fifth metatarsal redemonstrated. Old fracture of the distal fibular region. No acute fracture. DEGENERATIVE CHANGE: Unremarkable SOFT TISSUE FINDINGS: There reduction of subcutaneous air involving the second toe. No radiodense foreign body. JOINT EFFUSION: None POSTOP CHANGES: Amputation of the first toe base of the proximal phalanx. Amputation of the second toe at the distal interphalangeal joint. BONE MINERALIZATION: Diffuse osteopenia XR/XR foot RT min 3V IMPRESSION: Stable postsurgical changes and remote fractures. Interval reduction of subcutaneous air. No progression of infection. Impression dictated by: Phil Beckwith M.D. 11/12/2024 3:45 PM Dictation Location: [place] [address] Electronically authenticated by: [id number] Y Date: 11/12/2024 15:45
== END 2024-11-12 12:46 | disposition home or self-care (01) ==
LOC: RAD 12:48
PROVIDERS: PCP Family Medicine; Visit Provider Podiatrist Foot & Ankle Surgery
DX: M79.671 Pain in right foot (principal); Z98.890 Other specified postprocedural states
CPT/HCPCS: 73630; 88305; 88311

== ENCOUNTER 2024-11-12 13:10 | Outpatient (OUT) | payer MEDICARE, SELFPAY | END 2024-11-12 13:11 | disposition home or self-care (01) | LOC: WC 13:10 | PROVIDERS: PCP Family Medicine; Visit Provider Podiatrist Foot & Ankle Surgery | DX: M79.671 Pain in right foot (principal); Z98.890 Other specified postprocedural states; I70.261 Atherosclerosis of native arteries of extremities with gangrene, right leg; L97.514 Non-pressure chronic ulcer of other part of right foot with necrosis of bone | CPT/HCPCS: 11044; 73630 ==

== ENCOUNTER 2024-11-19 09:12 | Outpatient (OUT) | payer MEDICARE, SELFPAY ==
--- OUTSIDE RECORDS SUMMARY | 2024-11-19 09:35 | XMS_ITS | CCD ---
Author Organization [facility] Care Team Providers Care Gis Software Developer Name Role Phone MARCEL PAIZ Attending Unavailable NORY WAN Consulting Unavailable ANNIE RODGERS Primary Care Unavailable MARCEL PAIZ Admitting Unavailable MARCEL PAIZ Consulting Unavailable Yolette Pierre Unavailable Annie Rodgers Unavailable MD Annie Rodgers Primary Care Provider [phone] TIFFANIE Pierre Attending Provider Unavailable Primary Care Provider UnavailMelanie Hale DO Unavailable Francis COLOR FINISHER, Leticia Unavailable Tate COLOR FINISHER, Suzanna Unavailable MELANIE DALEY Attending Unavailable Yolette Pierre APRN Attending Provider PARRISH LOCKE Attending Unavailable NO PCP, NO PCP Primary Care Unavailable MAYRA SPEARS Referring Unavailable NO PCP, NO PCP Primary Care Unavailable Mayra Spears DPM Attending Provider AUGUSTO, MOHAMED F Admitting Unavailable AUGUSTO, MOHAMED F Attending Unavailable NO PCP, NO PCP Primary Care Unavailable No Pcp, No Pcp Primary Care Provider Unavailabl warren FLOODAN, MOHAMED F Attending Unavailable MAYRA SPEARS Referring Unavailable NO PCP, NO PCP Primary Care Unavailable AUGUSTO, MOHAMED F Attending Unavailable NO PCP, NO PCP Primary Care Unavailable Selena COLOR FINISHER-C, Francisco Lee Primary Care Provider [phone] Estephanie CARVALHO, Krys Mckenzie Attending Provider Shaji CARVALHO, Attending Provider Desiree Garcia CMA Attending Provider Unavaila ble Yolette Pierre APRN Attending Provider NON STAFF Primary Care Provider UnavailMayra Shepard Admitting Unavailable Mayra Spears Attending Unavailable Mayra Separs Admitting Unavailable Mayra Spears Attending Unavailable Yolette Pierre Admitting Unavailable Yolette Pierre Attending Unavailable Mayra Spears Admitting Unavailable Mayra Spears Attending Unavailable Medications Current Medications Medication Drug Class(es) [...] 09/25/2024 Active Blood-Glucose Meter (Onetouch Ultra2 Meter) [facility] (10 sources) Start: 06-18-2024 Blood-Glucose Meter (Onetouch Ultra2 Meter) [facility] Active 0 .Route 1 June 18, 2024 10:07am As directed test blood sugar three times daily Start: 06-18-2024 Blood-Glucose Meter (Onetouch Ultra2 Meter) [facility] Active 0 .Route 1 June 18, 2024 9:07am As directed test blood sugar three times daily Start: 06-18-2024 End: 06-18-2024 Blood-Glucose Meter (Onetouc h Ultra2 Meter) [facility] Discontinued 0 .Route June 18, 2024 1:00am June 18, 2024 10:08am As directed Start: 06-18-2024 End: 06-18-2024 Blood-Glucose Meter (Onetouc h Ultra2 Meter) [facility] Discontinued 0 .Route June 18, 2024 12:00am June 18, 2024 9:08am As directed cholecalciferol 0.05 mg oral capsule (14 sources) Vitamin D Start: 09-05-2023 take 1 capsule by [facility] once daily Start: 12-19-2022 take 1 capsule by [facility] every week Cholecalciferol 1.25 MG (00094 UT) 1 capsule Orally weekly for 56 days Then D3 OtC 4000 UT daily Dec, Active take 1 capsule by [facility] every week Cholecalciferol 100 MCG (4000 UT) 1 capsule Orally weekly for 56 days Then D3 OtC 4000 UT daily Active take 1 capsule by [facility] every week Cholecalciferol 1.25 MG (49041 UT) 1 capsule Orally weekly for 56 [...] daily Start: 02-03-2022 take 1 tablet by [facility] every twenty-four hours Farxiga 5 MG [...] has coupon card Active Flash Glucose Scanning [place] (Freestyle Roberta 2 [place]) misc (14 sources) Start: 09-07-2023 Flash Glucose Scanning [place] (Freestyle Roberta 2 [place]) misc Active 0 .MEDSUPPLY September 07, 2023 12:58pm As directed to monitor blood sugar Start: 09-07-2023 Flash Glucose Scanning [place] (Freestyle Roberta 2 [place]) misc Active 0 .MEDSUPPLY September 07, 2023 1:58pm As directed to monitor blood sugar Start: 09-07-2023 End: 09-07-2023 Flash Glucose Scanning [place] (Freestyle Roberta 2 [place]) misc Discontinued 0 .MEDSUPPLY September 06, 2023 11:00pm September 07, 2023 1:01pm As directed Start: 09-07-2023 End: 09-07-2023 Flash Glucose Scanning [place] r (Freestyle Roberta 2 [place]) misc Discontinued 0 .MEDSUPPLY September 07, 2023 12:00am September 07, 2023 2:01pm As directed Flash Glucose Sensor (Freest yle Roberta 2 Sensor) kit (20 sources) Start: 06-18-2024 Flash Glucose Sensor (Freestyle Roberta 2 Sensor) kit Active 0 .MEDSUPPLY June 18, 2024 9:51am As directed Change every 14 Days Start: 06-18-2024 Flash Glucose Sensor (Freestyle Roberta 2 Sensor) kit Active 0 KIT .MEDSUPPLY June 18, 2024 9:51am As directed Change every 14 Days Start: 06-18-2024 Flash Glucose Sensor (Freestyle Roberta 2 Sensor) kit Active 0 KIT .MEDSUPPLY June 18, 2024 8:51am As directed Change every 14 Days Start: 03-24-2024 End: 06-18-2024 Flash Glucose Sensor (Freest yle Roberta 2 Sensor) kit Discontinued 0 .MEDSUPPLY March 24, 2024 10:37am June 18, 2024 9:51am As directed Change every 14 Days Start: 03-24-2024 End: 06-18-2024 Flash Glucose Sensor (Freest yle Roberta 2 Sensor) kit Discontinued 0 KIT .MEDSUPPLY March 24, 2024 10:37am June 18, 2024 9:51am As directed Change every 14 Days Start: 03-24-2024 End: 06-18-2024 Flash Glucose Sensor (Freest yle Roberta 2 Sensor) kit Discontinued 0 KIT .MEDSUPPLY March 24, 2024 9:37am June 18, 2024 8:51am As directed Change every 14 Days Start: 03-24-2024 End: 03-24-2024 Flash Glucose Sensor (Freest yle Roberta 2 Sensor) kit Discontinued 0 .MEDSUPPLY March 24, 2024 1:00am March 24, 2024 10:37am As directed Change every 14 Days Start: 03-24-2024 End: 03-24-2024 Flash Glucose Sensor (Freest yle Roberta 2 Sensor) kit Discontinued 0 [facility], 2024 1:00am March 24, 2024 10:37am As directed Change every 14 Days Start: 03-24-2024 End: 03-24-2024 Flash Glucose Sensor (Freest yle Roberta 2 Sensor) kit Discontinued 0 [facility] March 24, 2024 12:00am March 24, 2024 9:37am As directed Change every 14 Days Start: 09-05-2023 End: 03-24-2024 Flash Glucose Sensor (Freest yle Roberta 2 Sensor) kit Discontinued EACH .ROUTE [facility] September 05, 2023 12:00am March 24, 2024 10:36am As directed Start: 09-05-2023 End: 03-24-2024 Flash Glucose Sensor (Freest yle Roberta 2 Sensor) kit Discontinued EACH .ROUTE .MEDSUPPLY September 04, 2023 11:00pm March 24, 2024 9:36am As directed Start: 09-05-2023 Flash Glucose Sensor (Freestyle Roberta 2 Sensor) kit Active EACH .ROUTE .MEDSUPPLY September 05, 2023 12:00am As directed FreeStyle Roberta 2 [place] - (20 sources) Start: 08-24-2021 FreeStyle Libr e 2 [place] - as directed SQ 5 x day for 365 days Dx E11.65 patient needs reader only Aug, Active FreeStyle Roberta 2 Sensor - (20 sources) FreeStyle Roberta 2 Sensor - as directed in vitro q 14 days for 84 days Dx E11.65 Active FreeStyle Roberta 2 Sensor - USE DIRECTED AND CHANGE EVERY 14 DAYS for 84 Active FreeStyle Roberta 2 Sensor - USE DIRECTED EVERY 14 DAYS for 84 Active FreeStyle Roberta 2 Sensor - as directed in vitro q 14 days for 84 days Active 3 ml insulin aspart, human 100 unt/ml pen injector (19 sources) Insulin Analog Start: 01-21-2024 insulin aspart [...] pen Discontinued 40 UNIT SUBCUT Every evening January 21, 2024 10:36am February 15, 2024 [...] 04/11/2024 Active lisinopril 2.5 mg oral tablet (17 sources) Angiotensin Converting Enzyme Inhibitor Start: 09-05-2023 take 1 tablet by mouth once daily Start: 02-28-2023 take 1 tablet by destiny every twenty-four hours Lisinopril 5 MG 1 tablet Orally Once a day for 90 days Feb, Active Start: 12-19-2022 take 1 tablet by destiny every twenty-four hours Lisinopril 2.5 MG 1 tablet Orally Once a day for 30 days Escalate per PCP Dec, Active OXcarbazepine 150 mg oral tablet (8 sources) Anti-epileptic Agent Start: 04-07-2024 End: 04-07-2025 take 1 tablet by mouth once daily ozempic (0.25 or 0.5 mg/dose) 2 mg/3ml solution pen-injector (4 sources) Ozempic (0.25 or 0.5 MG/DOSE) 2 MG/3ML 0.5 mg Subcutaneous weely for 90 days COPAY CARD Active pen needle, diabetic (Novofine 32) (7 sources) Start: 09-05-2023 pen needle, diabetic (Novofine [...] 1 tablet by mouth once daily Semaglutide (11 sources) Start: 06-18-2024 inject 1 mg by [...] QID for 90 days Jun, Not-Taking Semaglutide (14 sources) Start: 09-10-2023 End: 04-23-2024 Semaglutide (Ozempic) [...] 11-01-2021 Chronic Gangrene (4 sources) Atherosclerosis of [place] arteries of extremities with gangrene, right leg; Translations: [Critical lower limb ischemia ] Onset: 09-25-2024 10-23-2024 Chronic Gangrene (4 sources) Gangrene, not elsewhere classified; Translations: [Gangrenous disorder] Onset: 09-25-2024 10-07-2024 Episodic Malaise and fatigue (4 sources) Weakness; Translations: [WEAKNESS] Onset: 04-08-2020 Episodic Nutritional deficiencies (20 sources) Vitamin D deficiency; Translations: [Vitamin D deficiency, unspecified] Onset: 07-20-2021 Resolved: 11-01-2021 Chronic Open wounds of extremities (3 sources) Amputated big toe; 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, initial encounter] 10-09-2024 Chronic Other aftercare (17 sources) long term care administrator (current) use of insulin; Translations: [Long-term (current) use of insulin] Onset: 04-12-2020 Resolved: 11-21-2021 Episodic Other aftercare (20 sources) Long-term 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 insulin; Translations: [senior care (current) use of insulin] 09-05-2023 Episodic Other circulatory disease (1 source) Other specified symptoms and signs involving the circulatory and respiratory systems; Translations: [Other specified symptoms and signs involving the circulatory and respiratory systems] Onset: 10-07-2024 Episodic Other circulatory disease (4 sources) Low blood pressure; Translations: [Hypotension, unspecified] 10-09-2024 Episodic Other connective tissue disease (2 sources) Neuralgia; Translations: [Neuralgia and neuritis, unspecified] 04-07-2024 Episodic Other fractures (5 sources) Fracture of multiple ribs ; Translations: [...] Episodic Other nutritional; endocrine; and metabolic disorders (9 sources) Overweight in adulthood with body mass [...] against object, initial encounter] Onset: 04-11-2024 Episodic Genitourinary symptoms and ill-defined conditions (20 sources) Proteinuria, unspecified; Translations: [Persistent albuminuria] Onset: 06-18-2024 Episodic Other fractures (1 source) Multiple fractures of ribs, right side, initial encounter for closed fracture; Translations: [Multiple fractures of ribs, right side, initial encounter for closed fracture] Onset: 04-11-2024 Episodic Skin and subcutaneous tissue infections (1 source) Cellulitis of face; Translations: [Cellulitis of face] Onset: 09-16-2016 09-16-2016 Episodic Results Test Name Value Interpretation Reference Range Facility No Panel InformationOrdered By: Mayra Spears on 10-29-2024 Miscellaneous Pathology Test See comment [facility] Comment on above: See report. Scanned copy available in EMR. Pathology Request for Lab Co rpon 10-29-2024 Pathology Request for Lab David Normal [facility] Comment on above: Order Comment: BONE 2ND RT TOE Result Comment: See report. Scanned copy available in EMR. PERFORMED BY: [facility] [place] [address] PATHOLOGIST [place] [place] M.D. Performed By: #### P ATH TO [facility] #### [facility] [address] POCT BUN, CREATon 10-17-2024 Creatinine [Mass/Vol] 1.1 mg/dL Normal 0.7-1.2 [facility] Comment on above: Performed By: #### I BC #### [facility] ([facility]) [address] [place] [address] VIR GFR/1.73 sq M.predicted among non-blacks MDRD (S/P/Bld) [Vol rate/Area] 75 mL/min/{1.73_m2} Normal >=60 [facility] Comment on above: Result Comment: Repo rted eGFR is based on the CKD-EPI 2020 equation that does not use a race coefficient. Performed By: #### I BC #### [facility] ([facility]) [address] [place] [address] VIR Urea nitrogen [Mass/Vol] 17 mg/dL Normal 6-27 [facility] Comment on above: Performed By: #### I BC #### [facility] ([facility]) [address] [place] [address] VIR PORTABLE GLUCOSEon 5 Glucose [Mass/Vol] 89 mg/dL Normal 65-99 [facility] Comment on above: Performed By: #### I GLU #### [facility] ([facility]) [address] [place] [address] VIR HbA1c HPLC (Bld) [Mass fract ion]on 10-09-2024 HbA1c (Bld) [Mass fraction] 6.6 % [facility] No Panel Informationon 10-09 Bedside Glucose 123 [facility] Basophils Auto (Bld) [#/Vol] on 09-23-2024 Basophils (Bld) [#/Vol] Automated basophil count 0.0-0.1 [facility] Basophils (Bld) [#/Vol] 0.1 10 3/uL 0.0-0.1 [facility] Basophils/100 WBC Auto (Bld) on 09-23-2024 Basophils/100 WBC (Bld) Automated basophil % 0.2-2.0 [facility] Basophils/100 WBC (Bld) 0.7 % 0.2-2.0 [facility] Eosinophils/100 WBC Auto (Bl d)on 09-23-2024 Eosinophils/100 WBC (Bld) Automated eosinophil % Low 0.9-7.0 [facility] Eosinophils/100 WBC (Bld) 0.2 % Low 0.9-7.0 [facility] Erythrocyte distribution wid th Auto (RBC) [Ratio]on 09-23-2024 Erythrocyte distribution width (RBC) [Ratio] Erythrocyte distribution width [Ratio] by Automated count 11.0-15.0 [facility] Erythrocyte distribution width (RBC) [Ratio] 11.0 % 11.0-15.0 [facility] Estimated glomerular filtrat ion rate (GFR) non- Americanon 09-23-2024 GFR/1.73 sq M.predicted among non-blacks MDRD (S/P/Bld) [Vol rate/Area] Estimated glomerular filtration rate (GFR) non- >=60 mL/min/1.73m 2 [facility] GFR/1.73 sq M.predicted among non-blacks MDRD (S/P/Bld) [Vol rate/Area] mL/min/{1.73_m2} >=60 mL/min/1.73m 2 [facility] Globulin Calc (S) [Mass/Vol] on 09-23-2024 Globulin (S) [Mass/Vol] Serum globulin measurement by calculation (mass/volume) [facility] Globulin (S) [Mass/Vol] 5.6 g/dL [facility] Hematocrit Auto (Bld) [Volum e fraction]on 09-23-2024 Hematocrit (Bld) [Volume fraction] Hematocrit [Volume Fraction] of Blood by Automated count Low 42.0-54.0 [facility] Hematocrit (Bld) [Volume fraction] 34.7 % Low 42.0-54.0 [facility] Hemoglobin [Mass/volume] in Bloodon 09-23-2024 Hemoglobin (Bld) [Mass/Vol] Hemoglobin [Mass/volume] in Blood Low 14.0-18.0 [facility] Hemoglobin (Bld) [Mass/Vol] 11.9 g/dL Low 14.0-18.0 [facility] Gavino 09-23-2024 L Specimen: [id number] Received: 09/23/24 Status: LORENA Childs Num: [id number] Spec Type: Surgical Subm Dr: Mayra Spears DPM, Tissues: A DIGIT AMPUTATION (RIGHT DISTAL PHALANX) B DIGIT AMPUTATION (RIGHT PROXIMAL PHALANX) Procedures: HE/3, Gross/Micro L4/2, Decalcification/2 Age/ Patient Sex Location Account Attending Physician Jassi Rodriguez SR 64/M LABELL [id number] Mayra Spears DPM, MS SPEC NUM: [id number] RECD: 09/23/24 STATUS: LORENA CHILDS NUM: [id number] SCOTT: 09/23/[address]: Mayra Spears DPM, MS ENTERED: 09/23/[address]: Stephanie Guzman SPEC TYPE: Surgical DEPT: THANH MURRAY ENTERED BY: [id number] RECV BY: [id number] ORDERED: HE/3, Gross/Micro L4/2, Decalcification/2 ORDERED: HE/3, [...] Acute cellulitis, dry gangrene right great toe Specimen: [id number] Received: 09/23/24 Status: LORENA Naz Num: [id number] Spec Type: Surgical Subm Dr: Mayra Spears DPM, MS Tissues: A DIGIT AMPUTATION (RIGHT DISTAL PHALANX) B DIGIT AMPUTATION (RIGHT PROXIMAL PHALANX) Procedures: HE/3, Gross/Micro L4/2, Decalcification/2 Patient: Jassi Rodriguez [id number] (Continued) Specimen: [id number] Received: 09/23/24 (Continued) Signed (signature on file) Mingo Mejia MD 09/26/24 1340 Specimen: [id number] Received: 09/23/24 Status: LORENA Childs Num: [id number] Spec Type: Surgical Subm Dr: Mayra Spears,DPM, MS Tissues: A DIGIT AMPUTATION (RIGHT DISTAL PHALANX) B DIGIT AMPUTATION (RIGHT PROXIMAL PHALANX) Procedures: HE/3, Gross/Micro L4/2, Decalcification/2 Patient: Jassi Rodriguez [id number] (Continued) Specimen: [id number] Received: 09/23/24-1299 (Continued) Gross Description Part A is received [...] cm from the proximal skin margin. A senior customer service representative section of the indurated area and underlying distal phalanx is submitted in A1 after decalcification with tangential cross-sections of the proximal skin margin submitted in A2. (2, , A90-308 A) Part B is received in formalin [...] submitted in B1 after decalcification. (1, , I93-147 B) Microscopic Description Microscopic examination is performed CPT Codes 07922l8 [id number] Specimen: [id number] Received: (more content not included)... Normal [facility] Laboratory - Chemistry and C hemistry - challengeon 09-23-2024 Albumin [Mass/Vol] 1.8 g/dL Low 3.4-5.0 [facility] ALP [Catalytic activity/Vol] 76 U/L 46-116 [facility] ALT [Catalytic activity/Vol] 15 U/L Low 16-63 [facility] AST [Catalytic activity/Vol] 22 U/L 15-37 [facility] Bilirubin [Mass/Vol] 0.3 mg/dL 0.2-1.0 [facility] Calcium [Mass/Vol] 9.0 mg/dL 8.5-10.1 [facility] Chloride [Moles/Vol] 103 mmol/L 98-107 [facility] CO2 [Moles/Vol] 26.0 mmol/L 21.0-32.[address] [facility] Creatinine [Mass/Vol] 0.94 mg/dL 0.70-1.30 [facility] GFR/1.73 sq M.predicted MDRD (S/P/Bld) [Vol rate/Area] mL/min/{1.73_m2} >=60 mL/min/1.73m 2 [facility] Glucose [Mass/Vol] 124 mg/dL High 74-106 [facility] Potassium [Moles/Vol] 4.1 mmol/L 3.5-5.1 [facility] Protein [Mass/Vol] 7.4 g/dL 6.4-8.2 [facility] Sodium [Moles/Vol] 139 mmol/L 136-145 [facility] Urea nitrogen [Mass/Vol] 22.0 mg/dL High 7.0-18.0 [facility] Urea nitrogen/Creatinine [Mass ratio] 23.4 mg/mg [facility] Laboratory - Hematology and Cell countson 09-23-2024 Immature granulocytes/100 WBC (Bld) 0.3 % 0.0-0.5 [facility] Leukocytes [#/volume] correc markie for nucleated erythrocytes in Blood by Automated counon 09-23-2024 WBC corrected for nucl RBC Auto (Bld) [#/Vol] Leukocytes [#/volume] corrected for nucleated erythrocytes in Blood by Automated coun 4.0-11.0 [facility] WBC corrected for nucl RBC Auto (Bld) [#/Vol] 9.1 10 3/uL 4.0-11.0 [facility] Lymphocytes Auto (Bld) [#/Vo l]on 09-23-2024 Lymphocytes (Bld) [#/Vol] Lymphocytes [#/volume] in Blood by Automated count 1.2-3.8 [facility] Lymphocytes (Bld) [#/Vol] 1.6 10 3/uL 1.2-3.8 [facility] Lymphocytes/100 WBC Auto (Bl d)on 09-23-2024 Lymphocytes/100 WBC (Bld) Lymphocytes/100 leukocytes in Blood by Automated count Low 20.5-60.0 [facility] Lymphocytes/100 WBC (Bld) 17.6 % Low 20.5-60.0 [facility] MCH Auto (RBC) [Entitic mass ]on 09-23-2024 MCH (RBC) [Entitic mass] MCH [Entitic mass] by Automated count 25.9-34.0 [facility] MCH (RBC) [Entitic mass] 30.7 pg 25.9-34.0 [facility] MCHC Auto (RBC) [Mass/Vol]on 09-23-2024 MCHC (RBC) [Mass/Vol] MCHC [Mass/volume] by Automated count 29.9-35.2 [facility] MCHC (RBC) [Mass/Vol] 34.3 g/dL 29.9-35.2 [facility] MCV Auto (RBC) [Entitic vol] on 09-23-2024 MCV (RBC) [Entitic vol] MCV [Entitic volume] by Automated count 80.0-94.0 [facility] MCV (RBC) [Entitic vol] 89.7 fL 80.0-94.0 [facility] Monocytes Auto (Bld) [#/Vol] on 09-23-2024 Monocytes (Bld) [#/Vol] Automated blood monocyte count High 0.3-0.8 [facility] Monocytes (Bld) [#/Vol] 1.4 10 3/uL High 0.3-0.8 [facility] Monocytes/100 WBC Auto (Bld) on 09-23-2024 Monocytes/100 WBC (Bld) Automated monocyte % High 1.7-12.0 [facility] Monocytes/100 WBC (Bld) 15.6 % High 1.7-12.0 [facility] Neutrophils Auto (Bld) [#/Vo l]on 09-23-2024 Neutrophils (Bld) [#/Vol] Neutrophils [#/volume] in Blood by Automated count 1.4-6.5 [facility] Neutrophils (Bld) [#/Vol] 6.0 10 3/uL 1.4-6.5 [facility] Neutrophils/100 WBC Auto (Bl d)on 09-23-2024 Neutrophils/100 WBC (Bld) Automated neutrophil % 43.0-75.0 [facility] Neutrophils/100 WBC (Bld) 65.6 % 43.0-75.0 [facility] No Panel Informationon 09-23 C-Reactive Protein, Quantitative 3.19 mg/dL High <=0.50 [facility] Eosinophils # (Auto) 0.0 10 3/uL 0.0-0.7 [facility] Immature Granulocyte # (Auto) 0.03 10 3/uL 0.00-0.03 [facility] Platelet mean volume Auto (B ld) [Entitic vol]on 09-23-2024 Platelet mean volume (Bld) [Entitic vol] Platelet mean volume [Entitic volume] in Blood by Automated count 9.5-13.5 [facility] Platelet mean volume (Bld) [Entitic vol] 9.5 fL 9.5-13.5 [facility] Platelets Auto (Bld) [#/Vol] on 09-23-2024 Platelets (Bld) [#/Vol] Platelets [#/volume] in Blood by Automated count 150-450 [facility] Platelets (Bld) [#/Vol] 339 10 3/uL 150-450 [facility] RBC Auto (Bld) [#/Vol]on RBC (Bld) [#/Vol] Erythrocytes [#/volume] in Blood by Automated count Low 4.70-6.10 [facility] RBC (Bld) [#/Vol] 3.87 10 6/uL Low 4.70-6.10 [facility] Serum or plasma albumin/glob ulin mass ratioon 09-23-2024 Albumin/Globulin [Mass ratio] Serum or plasma albumin/globulin mass ratio [facility] Albumin/Globulin [Mass ratio] 0.3 {ratio} [facility] Serum or plasma anion gap de terminationon 09-23-2024 Anion gap [Moles/Vol] Serum or plasma anion gap determination [facility] Anion gap [Moles/Vol] 14.1 mmol/L [facility] Basophils Auto (Bld) [#/Vol] on 09-22-2024 Basophils (Bld) [#/Vol] Automated basophil count 0.0-0.1 [facility] Basophils (Bld) [#/Vol] 0.1 10 3/uL 0.0-0.1 [facility] Basophils/100 WBC Auto (Bld) on 09-22-2024 Basophils/100 WBC (Bld) Automated basophil % 0.2-2.0 [facility] Basophils/100 WBC (Bld) 0.6 % 0.2-2.0 [facility] Eosinophils/100 WBC Auto (Bl d)on 09-22-2024 Eosinophils/100 WBC (Bld) Automated eosinophil % Low 0.9-7.0 [facility] Eosinophils/100 WBC (Bld) 0.2 % Low 0.9-7.0 [facility] Erythrocyte distribution wid th Auto (RBC) [Ratio]on 09-22-2024 Erythrocyte distribution width (RBC) [Ratio] Erythrocyte distribution width [Ratio] by Automated count 11.0-15.0 [facility] Erythrocyte distribution width (RBC) [Ratio] 11.1 % 11.0-15.0 [facility] Estimated glomerular filtrat ion rate (GFR) non- Americanon 09-22-2024 GFR/1.73 sq M.predicted among non-blacks MDRD (S/P/Bld) [Vol rate/Area] Estimated glomerular filtration rate (GFR) non- >=60 mL/min/1.73m 2 [facility] GFR/1.73 sq M.predicted among non-blacks MDRD (S/P/Bld) [Vol rate/Area] mL/min/{1.73_m2} >=60 mL/min/1.73m 2 [facility] Globulin Calc (S) [Mass/Vol] on 09-22-2024 Globulin (S) [Mass/Vol] Serum globulin measurement by calculation (mass/volume) [facility] Globulin (S) [Mass/Vol] 5.4 g/dL [facility] Hematocrit Auto (Bld) [Volum e fraction]on 09-22-2024 Hematocrit (Bld) [Volume fraction] Hematocrit [Volume Fraction] of Blood by Automated count Low 42.0-54.0 [facility] Hematocrit (Bld) [Volume fraction] 33.8 % Low 42.0-54.0 [facility] Hemoglobin [Mass/volume] in Bloodon 09-22-2024 Hemoglobin (Bld) [Mass/Vol] Hemoglobin [Mass/volume] in Blood Low 14.0-18.0 [facility] Hemoglobin (Bld) [Mass/Vol] 11.8 g/dL Low 14.0-18.0 [facility] [facility] - Chemistry and C hemistry - challengeon 09-22-2024 Albumin [Mass/Vol] 1.9 g/dL Low 3.4-5.0 [facility] ALP [Catalytic activity/Vol] 74 U/L 46-116 [facility] ALT [Catalytic activity/Vol] 15 U/L Low 16-63 [facility] AST [Catalytic activity/Vol] 20 U/L 15-37 [facility] Bilirubin [Mass/Vol] 0.4 mg/dL 0.2-1.0 [facility] Calcium [Mass/Vol] 8.7 mg/dL 8.5-10.1 [facility] Chloride [Moles/Vol] 102 mmol/L 98-107 [facility] CO2 [Moles/Vol] 23.7 mmol/L 21.0-32.[address] [facility] Creatinine [Mass/Vol] 0.99 mg/dL 0.70-1.30 [facility] GFR/1.73 sq M.predicted MDRD (S/P/Bld) [Vol rate/Area] mL/min/{1.73_m2} >=60 mL/min/1.73m 2 [facility] Glucose [Mass/Vol] 87 mg/dL 74-106 [facility] Potassium [Moles/Vol] 4.4 mmol/L 3.5-5.1 [facility] Protein [Mass/Vol] 7.3 g/dL 6.4-8.2 [facility] Sodium [Moles/Vol] 137 mmol/L 136-145 [facility] Urea nitrogen [Mass/Vol] 21.0 mg/dL High 7.0-18.0 [facility] Urea nitrogen/Creatinine [Mass ratio] 21.2 mg/mg [facility] Laboratory - Hematology and Cell countson 09-22-2024 Immature granulocytes/100 WBC (Bld) 0.4 % 0.0-0.5 [facility] Leukocytes [#/volume] correc markie for nucleated erythrocytes in Blood by Automated counon 09-22-2024 WBC corrected for nucl RBC Auto (Bld) [#/Vol] Leukocytes [#/volume] corrected for nucleated erythrocytes in Blood by Automated coun 4.0-11.0 [facility] WBC corrected for nucl RBC Auto (Bld) [#/Vol] 9.6 10 3/uL 4.0-11.0 [facility] Lymphocytes Auto (Bld) [#/Vo l]on 09-22-2024 Lymphocytes (Bld) [#/Vol] Lymphocytes [#/volume] in Blood by Automated count 1.2-3.8 [facility] Lymphocytes (Bld) [#/Vol] 1.7 10 3/uL 1.2-3.8 [facility] Lymphocytes/100 WBC Auto (Bl d)on 09-22-2024 Lymphocytes/100 WBC (Bld) Lymphocytes/100 leukocytes in Blood by Automated count Low 20.5-60.0 [facility] Lymphocytes/100 WBC (Bld) 17.7 % Low 20.5-60.0 [facility] MCH Auto (RBC) [Entitic mass ]on 09-22-2024 MCH (RBC) [Entitic mass] MCH [Entitic mass] by Automated count 25.9-34.0 [facility] MCH (RBC) [Entitic mass] 31.3 pg 25.9-34.0 [facility] MCHC Auto (RBC) [Mass/Vol]on 09-22-2024 MCHC (RBC) [Mass/Vol] MCHC [Mass/volume] by Automated count 29.9-35.2 [facility] MCHC (RBC) [Mass/Vol] 34.9 g/dL 29.9-35.2 [facility] MCV Auto (RBC) [Entitic vol] on 09-22-2024 MCV (RBC) [Entitic vol] MCV [Entitic volume] by Automated count 80.0-94.0 [facility] MCV (RBC) [Entitic vol] 89.7 fL 80.0-94.0 [facility] Monocytes Auto (Bld) [#/Vol] on 09-22-2024 Monocytes (Bld) [#/Vol] Automated blood monocyte count High 0.3-0.8 [facility] Monocytes (Bld) [#/Vol] 1.2 10 3/uL High 0.3-0.8 [facility] Monocytes/100 WBC Auto (Bld) on 09-22-2024 Monocytes/100 WBC (Bld) Automated monocyte % High 1.7-12.0 [facility] Monocytes/100 WBC (Bld) 12.8 % High 1.7-12.0 [facility] Neutrophils Auto (Bld) [#/Vo l]on 09-22-2024 Neutrophils (Bld) [#/Vol] Neutrophils [#/volume] in Blood by Automated count High 1.4-6.5 [facility] Neutrophils (Bld) [#/Vol] 6.6 10 3/uL High 1.4-6.5 [facility] Neutrophils/100 WBC Auto (Bl d)on 09-22-2024 Neutrophils/100 WBC (Bld) Automated neutrophil % 43.0-75.0 [facility] Neutrophils/100 WBC (Bld) 68.3 % 43.0-75.0 [facility] No Panel Informationon 09-22 Vancomycin Level Trough 18.3 ug/mL 5.0-20.0 [facility] C-Reactive Protein, Quantitative 4.29 mg/dL High <=0.50 [facility] Eosinophils # (Auto) 0.0 10 3/uL 0.0-0.7 [facility] Immature Granulocyte # (Auto) 0.04 10 3/uL High 0.00-0.03 [facility] Platelet mean volume Auto (B ld) [Entitic vol]on 09-22-2024 Platelet mean volume (Bld) [Entitic vol] Platelet mean volume [Entitic volume] in Blood by Automated count 9.5-13.5 [facility] Platelet mean volume (Bld) [Entitic vol] 9.6 fL 9.5-13.5 [facility] Platelets Auto (Bld) [#/Vol] on 09-22-2024 Platelets (Bld) [#/Vol] Platelets [#/volume] in Blood by Automated count 150-450 [facility] Platelets (Bld) [#/Vol] 334 10 3/uL 150-450 [facility] RBC Auto (Bld) [#/Vol]on RBC (Bld) [#/Vol] Erythrocytes [#/volume] in Blood by Automated count Low 4.70-6.10 [facility] RBC (Bld) [#/Vol] 3.77 10 6/uL Low 4.70-6.10 [facility] Serum or plasma albumin/glob ulin mass ratioon 09-22-2024 Albumin/Globulin [Mass ratio] Serum or plasma albumin/globulin mass ratio [facility] Albumin/Globulin [Mass ratio] 0.4 {ratio} [facility] Serum or plasma anion gap de terminationon 09-22-2024 Anion gap [Moles/Vol] Serum or plasma anion gap determination [facility] Anion gap [Moles/Vol] 15.7 mmol/L [facility] Basophils Auto (Bld) [#/Vol] on 09-21-2024 Basophils (Bld) [#/Vol] Automated basophil count 0.0-0.1 [facility] Basophils (Bld) [#/Vol] 0.1 10 3/uL 0.0-0.1 [facility] Basophils/100 WBC Auto (Bld) on 09-21-2024 Basophils/100 WBC (Bld) Automated basophil % 0.2-2.0 [facility] Basophils/100 WBC (Bld) 0.6 % 0.2-2.0 [facility] Eosinophils/100 WBC Auto (Bl d)on 09-21-2024 Eosinophils/100 WBC (Bld) Automated eosinophil % Low 0.9-7.0 [facility] Eosinophils/100 WBC (Bld) 0.2 % Low 0.9-7.0 [facility] Erythrocyte distribution wid th Auto (RBC) [Ratio]on 09-21-2024 Erythrocyte distribution width (RBC) [Ratio] Erythrocyte distribution width [Ratio] by Automated count 11.0-15.0 [facility] Erythrocyte distribution width (RBC) [Ratio] 11.3 % 11.0-15.0 [facility] Estimated glomerular filtrat ion rate (GFR) non- Americanon 09-21-2024 GFR/1.73 sq M.predicted among non-blacks MDRD (S/P/Bld) [Vol rate/Area] Estimated glomerular filtration rate (GFR) non- >=60 mL/min/1.73m 2 [facility] GFR/1.73 sq M.predicted among non-blacks MDRD (S/P/Bld) [Vol rate/Area] mL/min/{1.73_m2} >=60 mL/min/1.73m 2 [facility] Globulin Calc (S) [Mass/Vol] on 09-21-2024 Globulin (S) [Mass/Vol] Serum globulin measurement by calculation (mass/volume) [facility] Globulin (S) [Mass/Vol] 5.6 g/dL [facility] Hematocrit Auto (Bld) [Volum e fraction]on 09-21-2024 Hematocrit (Bld) [Volume fraction] Hematocrit [Volume Fraction] of Blood by Automated count Low 42.0-54.0 [facility] Hematocrit (Bld) [Volume fraction] 34.2 % Low 42.0-54.0 [facility] Hemoglobin [Mass/volume] in Bloodon 09-21-2024 Hemoglobin (Bld) [Mass/Vol] Hemoglobin [Mass/volume] in Blood Low 14.0-18.0 [facility] Hemoglobin (Bld) [Mass/Vol] 11.6 g/dL Low 14.0-18.0 [facility] Laboratory - Chemistry and C hemistry - challengeon 09-21-2024 Albumin [Mass/Vol] 1.9 g/dL Low 3.4-5.0 [facility] ALP [Catalytic activity/Vol] 79 U/L 46-116 [facility] ALT [Catalytic activity/Vol] 16 U/L 16-63 [facility] AST [Catalytic activity/Vol] 21 U/L 15-37 [facility] Bilirubin [Mass/Vol] 0.5 mg/dL 0.2-1.0 [facility] Calcium [Mass/Vol] 8.8 mg/dL 8.5-10.1 [facility] Chloride [Moles/Vol] 103 mmol/L 98-107 [facility] CO2 [Moles/Vol] 24.5 mmol/L 21.0-32.[address] [facility] Creatinine [Mass/Vol] 1.18 mg/dL 0.70-1.30 [facility] GFR/1.73 sq M.predicted MDRD (S/P/Bld) [Vol rate/Area] mL/min/{1.73_m2} >=60 mL/min/1.73m 2 [facility] Glucose [Mass/Vol] 106 mg/dL 74-106 [facility] Potassium [Moles/Vol] 4.6 mmol/L 3.5-5.1 [facility] Protein [Mass/Vol] 7.5 g/dL 6.4-8.2 [facility] Sodium [Moles/Vol] 137 mmol/L 136-145 [facility] Urea nitrogen [Mass/Vol] 24.0 mg/dL High 7.0-18.0 [facility] Urea nitrogen/Creatinine [Mass ratio] 20.3 mg/mg [facility] Laboratory - Hematology and Cell countson 09-21-2024 Immature granulocytes/100 WBC (Bld) 0.5 % 0.0-0.5 [facility] Leukocytes [#/volume] correc markie for nucleated erythrocytes in Blood by Automated counon 09-21-2024 WBC corrected for nucl RBC Auto (Bld) [#/Vol] Leukocytes [#/volume] corrected for nucleated erythrocytes in Blood by Automated coun High 4.0-11.0 [facility] WBC corrected for nucl RBC Auto (Bld) [#/Vol] 11.9 10 3/uL High 4.0-11.0 [facility] Lymphocytes Auto (Bld) [#/Vo l]on 09-21-2024 Lymphocytes (Bld) [#/Vol] Lymphocytes [#/volume] in Blood by Automated count 1.2-3.8 [facility] Lymphocytes (Bld) [#/Vol] 1.9 10 3/uL 1.2-3.8 [facility] Lymphocytes/100 WBC Auto (Bl d)on 09-21-2024 Lymphocytes/100 WBC (Bld) Lymphocytes/100 leukocytes in Blood by Automated count Low 20.5-60.0 [facility] Lymphocytes/100 WBC (Bld) 15.9 % Low 20.5-60.0 [facility] MCH Auto (RBC) [Entitic mass ]on 09-21-2024 MCH (RBC) [Entitic mass] MCH [Entitic mass] by Automated count 25.9-34.0 [facility] MCH (RBC) [Entitic mass] 30.8 pg 25.9-34.0 [facility] MCHC Auto (RBC) [Mass/Vol]on 09-21-2024 MCHC (RBC) [Mass/Vol] MCHC [Mass/volume] by Automated count 29.9-35.2 [facility] MCHC (RBC) [Mass/Vol] 33.9 g/dL 29.9-35.2 [facility] MCV Auto (RBC) [Entitic vol] on 09-21-2024 MCV (RBC) [Entitic vol] MCV [Entitic volume] by Automated count 80.0-94.0 [facility] MCV (RBC) [Entitic vol] 90.7 fL 80.0-94.0 [facility] Monocytes Auto (Bld) [#/Vol] on 09-21-2024 Monocytes (Bld) [#/Vol] Automated blood monocyte count High 0.3-0.8 [facility] Monocytes (Bld) [#/Vol] 1.5 10 3/uL High 0.3-0.8 [facility] Monocytes/100 WBC Auto (Bld) on 09-21-2024 Monocytes/100 WBC (Bld) Automated monocyte % High 1.7-12.0 [facility] Monocytes/100 WBC (Bld) 12.6 % High 1.7-12.0 [facility] Neutrophils Auto (Bld) [#/Vo l]on 09-21-2024 Neutrophils (Bld) [#/Vol] Neutrophils [#/volume] in Blood by Automated count High 1.4-6.5 [facility] Neutrophils (Bld) [#/Vol] 8.4 10 3/uL High 1.4-6.5 [facility] Neutrophils/100 WBC Auto (Bl d)on 09-21-2024 Neutrophils/100 WBC (Bld) Automated neutrophil % 43.0-75.0 [facility] Neutrophils/100 WBC (Bld) 70.2 % 43.0-75.0 [facility] No Panel Informationon 09-21 Eosinophils # (Auto) 0.0 10 3/uL 0.0-0.7 [facility] Immature Granulocyte # (Auto) 0.06 10 3/uL High 0.00-0.03 [facility] Platelet mean volume Auto (B ld) [Entitic vol]on 09-21-2024 Platelet mean volume (Bld) [Entitic vol] Platelet mean volume [Entitic volume] in Blood by Automated count 9.5-13.5 [facility] Platelet mean volume (Bld) [Entitic vol] 9.7 fL 9.5-13.5 [facility] Platelets Auto (Bld) [#/Vol] on 09-21-2024 Platelets (Bld) [#/Vol] Platelets [#/volume] in Blood by Automated count 150-450 [facility] Platelets (Bld) [#/Vol] 314 10 3/uL 150-450 [facility] RBC Auto (Bld) [#/Vol]on RBC (Bld) [#/Vol] Erythrocytes [#/volume] in Blood by Automated count Low 4.70-6.10 [facility] RBC (Bld) [#/Vol] 3.77 10 6/uL Low 4.70-6.10 [facility] Serum or plasma albumin/glob ulin mass ratioon 09-21-2024 Albumin/Globulin [Mass ratio] Serum or plasma albumin/globulin mass ratio [facility] Albumin/Globulin [Mass ratio] 0.3 {ratio} [facility] Serum or plasma anion gap de terminationon 09-21-2024 Anion gap [Moles/Vol] Serum or plasma anion gap determination [facility] Anion gap [Moles/Vol] 14.1 mmol/L [facility] Basophils Auto (Bld) [#/Vol] on 09-20-2024 Basophils (Bld) [#/Vol] Automated basophil count 0.0-0.1 [facility] Basophils (Bld) [#/Vol] 0.1 10 3/uL 0.0-0.1 [facility] Basophils/100 WBC Auto (Bld) on 09-20-2024 Basophils/100 WBC (Bld) Automated basophil % 0.2-2.0 [facility] Basophils/100 WBC (Bld) 0.8 % 0.2-2.0 [facility] Eosinophils/100 WBC Auto (Bl d)on 09-20-2024 Eosinophils/100 WBC (Bld) Automated eosinophil % Low 0.9-7.0 [facility] Eosinophils/100 WBC (Bld) 0.0 % Low 0.9-7.0 [facility] Erythrocyte distribution wid th Auto (RBC) [Ratio]on 09-20-2024 Erythrocyte distribution width (RBC) [Ratio] Erythrocyte distribution width [Ratio] by Automated count 11.0-15.0 [facility] Erythrocyte distribution width (RBC) [Ratio] 11.2 % 11.0-15.0 [facility] Estimated glomerular filtrat ion rate (GFR) non- Americanon 09-20-2024 GFR/1.73 sq M.predicted among non-blacks MDRD (S/P/Bld) [Vol rate/Area] Estimated glomerular filtration rate (GFR) non- Low >=60 mL/min/1.73m 2 [facility] GFR/1.73 sq M.predicted among non-blacks MDRD (S/P/Bld) [Vol rate/Area] 52 mL/min/{1.73_m2} Low >=60 mL/min/1.73m 2 [facility] Globulin Calc (S) [Mass/Vol] on 09-20-2024 Globulin (S) [Mass/Vol] Serum globulin measurement by calculation (mass/volume) [facility] Globulin (S) [Mass/Vol] 6.6 g/dL [facility] Hematocrit Auto (Bld) [Volum e fraction]on 09-20-2024 Hematocrit (Bld) [Volume fraction] Hematocrit [Volume Fraction] of Blood by Automated count Low 42.0-54.0 [facility] Hematocrit (Bld) [Volume fraction] 41.1 % Low 42.0-54.0 [facility] Hemoglobin [Mass/volume] in Bloodon 09-20-2024 Hemoglobin (Bld) [Mass/Vol] Hemoglobin [Mass/volume] in Blood 14.0-18.0 [facility] Hemoglobin (Bld) [Mass/Vol] 14.0 g/dL 14.0-18.0 [facility] Laboratory - Chemistry and C hemistry - challengeon 09-20-2024 Albumin [Mass/Vol] 2.4 g/dL Low 3.4-5.0 [facility] ALP [Catalytic activity/Vol] 101 U/L 46-116 [facility] ALT [Catalytic activity/Vol] 25 U/L 16-63 [facility] AST [Catalytic activity/Vol] 28 U/L 15-37 [facility] Bilirubin [Mass/Vol] 0.7 mg/dL 0.2-1.0 [facility] Calcium [Mass/Vol] 9.6 mg/dL 8.5-10.1 [facility] Chloride [Moles/Vol] 99 mmol/L 98-107 [facility] CO2 [Moles/Vol] 28.1 mmol/L 21.0-32.[address] [facility] Creatinine [Mass/Vol] 1.37 mg/dL High 0.70-1.30 [facility] GFR/1.73 sq M.predicted MDRD (S/P/Bld) [Vol rate/Area] mL/min/{1.73_m2} >=60 mL/min/1.73m 2 [facility] Glucose [Mass/Vol] 130 mg/dL High 74-106 [facility] Potassium [Moles/Vol] 4.5 mmol/L 3.5-5.1 [facility] Protein [Mass/Vol] 9.0 g/dL High 6.4-8.2 [facility] Sodium [Moles/Vol] 132 mmol/L Low 136-145 [facility] Urea nitrogen [Mass/Vol] 18.0 mg/dL 7.0-18.0 [facility] Urea nitrogen/Creatinine [Mass ratio] 13.1 mg/mg [facility] Laboratory - Hematology and Cell countson 09-20-2024 ESR (Bld) [Velocity] mm/h High <=20 [facility] Immature granulocytes/100 WBC (Bld) 0.3 % 0.0-0.5 [facility] Leukocytes [#/volume] correc markie for nucleated erythrocytes in Blood by Automated counon 09-20-2024 WBC corrected for nucl RBC Auto (Bld) [#/Vol] Leukocytes [#/volume] corrected for nucleated erythrocytes in Blood by Automated coun High 4.0-11.0 [facility] WBC corrected for nucl RBC Auto (Bld) [#/Vol] 11.9 10 3/uL High 4.0-11.0 [facility] Lymphocytes Auto (Bld) [#/Vo l]on 09-20-2024 Lymphocytes (Bld) [#/Vol] Lymphocytes [#/volume] in Blood by Automated count 1.2-3.8 [facility] Lymphocytes (Bld) [#/Vol] 1.9 10 3/uL 1.2-3.8 [facility] Lymphocytes/100 WBC Auto (Bl d)on 09-20-2024 Lymphocytes/100 WBC (Bld) Lymphocytes/100 leukocytes in Blood by Automated count Low 20.5-60.0 [facility] Lymphocytes/100 WBC (Bld) 15.9 % Low 20.5-60.0 [facility] MCH Auto (RBC) [Entitic mass ]on 09-20-2024 MCH (RBC) [Entitic mass] MCH [Entitic mass] by Automated count 25.9-34.0 [facility] MCH (RBC) [Entitic mass] 30.8 pg 25.9-34.0 [facility] MCHC Auto (RBC) [Mass/Vol]on 09-20-2024 MCHC (RBC) [Mass/Vol] MCHC [Mass/volume] by Automated count 29.9-35.2 [facility] MCHC (RBC) [Mass/Vol] 34.1 g/dL 29.9-35.2 [facility] MCV Auto (RBC) [Entitic vol] on 09-20-2024 MCV (RBC) [Entitic vol] MCV [Entitic volume] by Automated count 80.0-94.0 [facility] MCV (RBC) [Entitic vol] 90.5 fL 80.0-94.0 [facility] Monocytes Auto (Bld) [#/Vol] on 09-20-2024 Monocytes (Bld) [#/Vol] Automated blood monocyte count High 0.3-0.8 [facility] Monocytes (Bld) [#/Vol] 1.4 10 3/uL High 0.3-0.8 [facility] Monocytes/100 WBC Auto (Bld) on 09-20-2024 Monocytes/100 WBC (Bld) Automated monocyte % High 1.7-12.0 [facility] Monocytes/100 WBC (Bld) 12.1 % High 1.7-12.0 [facility] Neutrophils Auto (Bld) [#/Vo l]on 09-20-2024 Neutrophils (Bld) [#/Vol] Neutrophils [#/volume] in Blood by Automated count High 1.4-6.5 [facility] Neutrophils (Bld) [#/Vol] 8.5 10 3/uL High 1.4-6.5 [facility] Neutrophils/100 WBC Auto (Bl d)on 09-20-2024 Neutrophils/100 WBC (Bld) Automated neutrophil % 43.0-75.0 [facility] Neutrophils/100 WBC (Bld) 70.9 % 43.0-75.0 [facility] No Panel Informationon 09-20 C-Reactive Protein, Quantitative 6.32 mg/dL High <=0.50 [facility] Eosinophils # (Auto) 0.0 10 3/uL 0.0-0.7 [facility] Immature Granulocyte # (Auto) 0.04 10 3/uL High 0.00-0.03 [facility] Platelet mean volume Auto (B ld) [Entitic vol]on 09-20-2024 Platelet mean volume (Bld) [Entitic vol] Platelet mean volume [Entitic volume] in Blood by Automated count 9.5-13.5 [facility] Platelet mean volume (Bld) [Entitic vol] 9.5 fL 9.5-13.5 [facility] Platelets Auto (Bld) [#/Vol] on 09-20-2024 Platelets (Bld) [#/Vol] Platelets [#/volume] in Blood by Automated count 150-450 [facility] Platelets (Bld) [#/Vol] 401 10 3/uL 150-450 [facility] RBC Auto (Bld) [#/Vol]on RBC (Bld) [#/Vol] Erythrocytes [#/volume] in Blood by Automated count Low 4.70-6.10 [facility] RBC (Bld) [#/Vol] 4.54 10 6/uL Low 4.70-6.10 [facility] Serum or plasma albumin/glob ulin mass ratioon 09-20-2024 Albumin/Globulin [Mass ratio] Serum or plasma albumin/globulin mass ratio [facility] Albumin/Globulin [Mass ratio] 0.4 {ratio} [facility] Serum or plasma anion gap de terminationon 09-20-2024 Anion gap [Moles/Vol] Serum or plasma anion gap determination [facility] Anion gap [Moles/Vol] 9.4 mmol/L [facility] Creatinine [Mass/volume] in UrineOrdered By: Yolette Pierre on 06-18-2024 Creatinine (U) [Mass/Vol] Creatinine [Mass/volume] in Urine [facility] Comment on above: No reference range e stablished [facility] Creat Ratio,Uon Albumin DL <= 20 mg/L (U) [Mass/Vol] mg/dL High 0.0-1.8 [facility] Comment on above: Performed By: #### U RMACRERAT #### [facility] [address] Creatinine, Urine (Random) 123.00 mg/dL Normal [facility] Comment on above: Result Comment: No r eference range established Performed By: #### U RMACRERAT #### [facility] [address] Microalbumin/Creatinin e Ratio Not performed Normal 0.0-30.0 [facility] Comment on above: Result Comment: PERF ORMED BY: [place] [id number] PATHOLOGIST STAND IN JAMIL BONILLA M.D. Performed By: #### U RMACRERAT #### [facility] [address] [place] [address] [place] Microalbumin [Mass/volume] i n UrineOrdered By: Yolette Pierre on 06-18-2024 Albumin DL <= 20 mg/L (U) [Mass/Vol] Microalbumin [Mass/volume] in Urine High 0.0-1.8 [facility] Urine microalbumin/creatinin e mass ratioOrdered By: Yolette Pierre on 06-18-2024 Albumin/Creatinine DL <= 20 mg/L (U) [Mass ratio] Urine microalbumin/creatin ine mass ratio [facility] Comment on above: Test not performed HbA1c HPLC (Bld) [Mass fract ion]on 04-23-2024 HbA1c (Bld) [Mass fraction] Hemoglobin A1c/Hemoglobin.total in Blood by HPLC [facility] No Panel Informationon 04-23 Bedside Glucose [address] [facility] [address] ABDOMEN WO CONTon 024 [...] dose to as low as reasonably achievable. -------- Finalized by Robinson Camarena MD on 04/11/2024 11:15 AM Normal [facility] CT CHEST WO CONTon CT CHEST WO [...] Guido MD on 04/11/2024 11:15 AM Normal [facility] HbA1c HPLC (Bld) [Mass fract ion]on 09-10-2023 HbA1c (Bld) [Mass fraction] 6.4 % [facility] No Panel Informationon 09-09 Bedside Glucose 126 [facility] A1C HEMOGLOBINon 06-05-2023 HbA1c (Bld) [Mass fraction] 6.9 % [facility] Other Glucose - FINGER [facility]on Glucose [Mass/Vol] 132 mg/dL [facility] Other HbA1c (Bld) [Mass fraction]o n 06-05-2023 A1C HEMOGLOBIN [facility] Other A1C HEMOGLOBINon 02-27-2023 HbA1c (Bld) [Mass fraction] 6.4 % [facility] Other Creatinine [Mass/volume] in UrineOrdered By: Yolette Pierre on 02-27-2023 Creatinine (U) [Mass/Vol] 89.0 mg/dL 14.0-26.0 [facility] Glucose - FINGER STICKon Glucose [Mass/Vol] 132 mg/dL [facility] Other HbA1c (Bld) [Mass fraction]o n 02-27-2023 A1C HEMOGLOBIN [facility] Other [facility] Creat Ratio,Uon Creatinine (U) [Mass/Vol] 89.0219591 mg/dL High 14.0-26.0 mg/dL [facility] Other [facility] Creat Ratio,UOrdere d By: Yolette Pierre on 02-27-2023 Albumin DL <= 20 mg/L (U) [Mass/Vol] mg/dL 0.0-1.8 [facility] Albumin/Creatinine DL <= 20 mg/L (U) [Mass ratio] TNP [facility] Comment on above: Test not performed Glucose - FINGER STICKon Glucose [Mass/Vol] 160 mg/dL [facility] Other A1C HEMOGLOBINon 10-03-2022 HbA1c (Bld) [Mass fraction] 7.0 % [facility] Other Glucose - [facility]ING[facility]on Glucose [Mass/Vol] 88 mg/dL [facility] Other HbA1c (Bld) [Mass fraction]o n 10-03-2022 A1C HEMOGLOBIN [facility] Other Glucose - [facility] Glucose [Mass/Vol] 137 mg/dL [facility] Other A1C HEMOGLOBINon 05-05-2022 HbA1c (Bld) [Mass fraction] 7.5 % [facility] Other Glucose - [facility]on Glucose [Mass/Vol] 199 mg/dL [facility] Other HbA1c (Bld) [Mass fraction]o n 05-05-2022 A1C HEMOGLOBIN [facility] Other A1C HEMOGLOBINon 02-03-2022 HbA1c (Bld) [Mass fraction] 7.7 % [facility] Other Glucose - FINGER STICKon Glucose - FINGER STICK No rt [employer] Other A1C HEMOGLOBINon 11-01-2021 HbA1c (Bld) [Mass fraction] 8.1 % [facility] Other Glucose - FINGER [facility]ICKon Glucose [Mass/Vol] 232 mg/dL [facility] [employer] Other HbA1c (Bld) [Mass fraction]o n 11-01-2021 A1C HEMOGLOBIN [facility] Other A1C HEMOGLOBINon 07-20-2021 HbA1c (Bld) [Mass fraction] 8.0 % [facility] Other Glucose - FINGER STICKon Glucose [Mass/Vol] 159 mg/dL [facility] [employer] Other HbA1c (Bld) [Mass fraction]o n 07-20-2021 A1C HEMOGLOBIN [facility] Other ACETONE SERUMon 04-08-2020 ACETONE SMALL Normal NEGATIVE [facility] Comment on above: Performed By: #### A CETON ####[facility] [id number] [place] [id number] Teresa BNPon 04-08-2020 Natriuretic peptide B (Bld) [Mass/Vol] 72.0 pg/mL Normal <=900.0 [facility] Comment on above: Performed By: #### C MP, TSH, TROP, BNP #### [facility] [place] [facility] [address] [address] Kisha Brii CBC AUTO DIFFon 04-08-2020 Basophils (Bld) [#/Vol] 0.0 103/ul Normal 0.0-0.1 [facility] Comment on above: Performed By: #### C BC #### [facility] [place] [facility] [address] [place] [address] Kisha Brii Basophils/100 WBC (Bld) 0.4 % Normal 0.2-2.0 The [facility] [place] Comment on above: Performed By: #### C BC #### [facility] [place] [facility] [address] [place] [address] Kisha Biri Eosinophils (Bld) [#/Vol] 0.0 103/ul Normal 0.0-0.7 The [facility] [place] Comment on above: Performed By: #### C BC #### [facility] [place] [facility] [address] [place] [address] Kisha Brii Eosinophils/100 WBC (Bld) 0.0 % Critically low 0.9-7.0 [facility] Comment on above: Performed By: #### C BC #### [facility] [place] [facility] [address] [place] [address] Kisha Brii Erythrocyte distribution width (RBC) [Ratio] 13.3 % Normal 11.0-15.0 [facility] Comment on above: Performed By: #### C BC #### [facility] [place] [facility] [address] [place] [address] Kisha Brii Hematocrit (Bld) [Volume fraction] 45.3 % Normal 42.0-54.0 [facility] Comment on above: Performed By: #### C BC #### [facility] [place] [facility] [address] [place] [address] Kisha Brii Hemoglobin (Bld) [Mass/Vol] 15.9 g/dL Normal 14.0-18.0 The [facility] [place] Comment on above: Performed By: #### C BC #### [facility] [place] [facility] [address] [place] [address] Kisha Brii IG # 0.03 10e3/ul Normal 0.00-0.03 The [facility] [place] Comment on above: Performed By: #### C BC #### [facility] [place] [facility] [address] [place], [place] [address] Kisha Brii IG % 0.6 % Critically high 0.0-0.5 [facility] Comment on above: Performed By: #### C BC #### [facility] [place] [facility] [address] [id number] Kisha Brii Lymphocytes (Bld) [#/Vol] 1.8 103/ul Normal 1.2-3.8 The [facility] [place] Comment on above: Performed By: #### C BC #### [facility] [place] [facility] [address] [place], [place] [id number] Kisha Brii Lymphocytes/100 WBC (Bld) 37.3 % Normal 20.5-60.0 The [facility] [place] Comment on above: Performed By: #### C BC #### [facility] [place] [facility] [address] [place], [place] [id number] Kisha Brii MANUAL DIFF REQ NO Normal [facility] Comment on above: Performed By: #### C BC #### [facility] [place] [facility] [address] [place], [place] [id number] Kisha Brii MCH (RBC) [Entitic mass] 31.4 pg Normal 25.9-34.0 The [facility] [place] Comment on above: Performed By: #### C BC #### [facility] [place] [facility] [address] [place], [place] [id number] Kisha Brii MCHC (RBC) [Mass/Vol] 35.1 g/dL Normal 29.9-35.2 The [facility] [place] Comment on above: Performed By: #### C BC #### [facility] [place] [facility] [address] [place], [place] [id number] Kisha Brii MCV (RBC) [Entitic vol] 89.3 fL Normal 80.0-94.0 The [facility] [place] Comment on above: Performed By: #### C BC #### [facility] [place] [facility] [address] [place], [place] [id number] Kisha Brii Monocytes (Bld) [#/Vol] 0.7 103/ul Normal 0.3-0.8 The [facility] [place] Comment on above: Performed By: #### C BC #### [facility] [place] [facility] [address] [place], [place] [address] Kisha Brii Monocytes/100 WBC (Bld) 14.5 % Critically high 1.7-12.0 The [facility] [place] Comment on above: Performed By: #### C BC #### [facility] [place] [facility] [address] [place], [place] [address] Kisha Brii Neutrophils (Bld) [#/Vol] 2.3 103/ul Normal 1.4-6.5 The [facility] [place] Comment on above: Performed By: #### C BC #### [facility] [place] [facility] [address] [place], [place] [address] Kisha Brii Neutrophils/100 WBC (Bld) 47.2 % Normal 43.0-75.0 [facility] Comment on above: Performed By: #### C BC #### [facility] [place] [facility] [address] [place], [place] [address] Kisha Brii Platelet mean volume (Bld) [Entitic vol] 11.7 fL Normal 9.5-13.5 [facility] Comment on above: Performed By: #### C BC #### [facility] [place] [facility] [address] [place], [place] [address] Kisha Brii Platelets (Bld) [#/Vol] 157 103/ul Normal 150-450 The [facility] [place] Comment on above: Performed By: #### C BC #### [facility] [place] [facility] [address] [place], [place] [address] Kisha Brii RBC (Bld) [#/Vol] 5.07 106/ul Normal 4.70-6.10 [facility] Comment on above: Performed By: #### C BC #### [facility] [place] [facility] [address] [place], [place] [address] Kisha Brii WBC (Bld) [#/Vol] 4.9 103/ul Normal 4.0-11.0 The [facility] Comment on above: Performed By: #### C BC #### [facility] [place] [facility] [address] [place], [place] [address] Kisha Brii CTA CHEST WO W CONon 020 CTA [...] 2. No pulmonary embolism. Electronically authenticated by: NORY WAN Date: 2020-04-08 12:41 Normal [facility] D-DIMERon 04-08-2020 D-DIMER COMMENTS SEE BELOW Normal The [facility] Comment on above: Result Comment: Incr eases [...] PTT, PT ####[facility] [place] [id number] Fibrin D-dimer FEU IA (Bld) [Mass/Vol] 1.16 ug/mL Critically high 0.19-0.50 [facility] Comment on above: Result Comment: test repeated critcal value verified Performed By: #### D DIM, PTT, PT ####[facility] [place] [id number] PH VENOUS BLOODon 04-08-2020 PCO2 VENOUS 46.4 mmHg Normal 40.0-52.0 [facility] Comment on above: Performed By: #### P HVEN #### [facility] [place] [facility] [address] [place] [address] Kishaunruly Teresa pH VENOUS 7.37 Normal 7.33-7.43 [facility] Comment on above: Performed By: #### P HVDELMI #### [facility] [place] [facility] [address] [place] [address] Kisha Teresa PROF 14(COMP METB)on 020 Albumin [Mass/Vol] 2.4 g/dL Critically low 3.5-5.0 [facility] Comment on above: Performed By: #### C MP, TSH, TROP, BNP #### [facility] [place] [facility] [address] [place] [address] Kisha Brii Albumin/Globulin [Mass ratio] 0.4 {ratio} Normal [facility] Comment on above: Performed By: #### C MP, TSH, TROP, BNP #### [facility] [place] [facility] [address] [place] [address] Kisha Brii ALP [Catalytic activity/Vol] 68 U/L Normal 38-126 [facility] Comment on above: Performed By: #### C MP, TSH, TROP, BNP #### [facility] [place] [facility] [address] [place] [address] Kisha Brii ALT [Catalytic activity/Vol] 33 U/L Normal 21-72 [facility] Comment on above: Performed By: #### C MP, TSH, TROP, BNP #### [facility] [place] [facility] [address] [place] [address] Kisha Brii Anion gap [Moles/Vol] 10.1 mmol/L Normal [facility] Comment on above: Performed By: #### C MP, TSH, TROP, BNP #### [facility] [place] [facility] [address] [place] [address] Kisha Biri AST [Catalytic activity/Vol] 50 U/L Normal 17-59 [facility] Comment on above: Performed By: #### C MP, TSH, TROP, BNP #### [facility] [place] [facility] [address] [address] Kisha Brii Bilirubin Ql (U) 0.9 mg/dL Normal 0.2-1.3 The [facility] Comment on above: Performed By: #### C MP, TSH, TROP, BNP #### [facility] [place] [facility] [address] [address] Kisha Brii Calcium [Mass/Vol] 8.7 mg/dL Normal 8.4-10.2 [facility] Comment on above: Performed By: #### C MP, TSH, TROP, BNP #### [facility] [place] [facility] [address] [place] [address] Kisha Brii Chloride [Moles/Vol] 96 mmol/L Critically low 98-107 The [facility] [place] Comment on above: Performed By: #### C MP, TSH, TROP, BNP #### [facility] [place] [facility] [address] [place] [address] Kisha Brii CO2 [Moles/Vol] 27.9 mmol/L Normal 22.0-30.0 The [facility] Comment on above: Performed By: #### C MP, TSH, TROP, BNP #### [facility] [place] [facility] [address] [address] Kisha Brii Creatinine [Mass/Vol] 1.13 mg/dL Normal 0.66-1.25 [facility] Comment on above: Performed By: #### C MP, TSH, TROP, BNP #### [facility] [place] [facility] [address] [place] [address] Kisha Brii EGFR-AF GUATEMALAN >60 Normal >=60 The [facility] Comment on above: Performed By: #### C MP, TSH, TROP, BNP #### [facility] [place] [facility] [address] [place] [address] Kisha Brii EGFR-NON AF GUATEMALAN >60 Normal >=60 The [facility] Comment on above: Performed By: #### C MP, TSH, TROP, BNP #### [facility] [place] [facility] [address] [place] [address] Kisha Brii Globulin (S) [Mass/Vol] 5.8 g/dL Normal The [facility] Comment on above: Performed By: #### C MP, TSH, TROP, BNP #### [facility] [place] [facility] [address] [address] Kisha Brii Glucose [Mass/Vol] 263 mg/dL Critically high 74-106 T [facility] Comment on above: Performed By: #### C MP, TSH, TROP, BNP #### [facility] [place] [facility] [address] [address] Kisha Brii Potassium [Moles/Vol] 3.0 mmol/L Critically low 3.4-5.0 [facility] Comment on above: Performed By: #### C MP, TSH, TROP, BNP #### [facility] [place] [facility] [address] [address] Kisha Brii Protein [Mass/Vol] 8.2 g/dL Normal 6.1-8.2 [facility] Comment on above: Performed By: #### C MP, TSH, TROP, BNP #### [facility] [place] [facility] [address] [address] Kisha Brii Sodium [Moles/Vol] 131 mmol/L Critically low 137-145 [facility] Comment on above: Performed By: #### C MP, TSH, TROP, BNP #### [facility] [place] [facility] [address] [address] Kisha Brii Urea nitrogen [Mass/Vol] 15.0 mg/dL Normal 9.0-20.0 [facility] Comment on above: Performed By: #### C MP, TSH, TROP, BNP #### [facility] [place] [facility] [address] [address] Kisha Brii Urea nitrogen/Creatinine [Mass ratio] 13.3 mg/mg Normal [facility] Comment on above: Performed By: #### C MP, TSH, TROP, BNP #### [facility] [place] [facility] [address] [id number] Kisha Brii PROTIMEon 04-08-2020 INR Coag (PPP) [Relative time] 1.03 {INR} Normal [facility] Comment on above: Performed By: #### D DIM, PTT, PT ####[facility] [place] [id number] [place], [place] [address]FwoescKisha Teresa PT Coag (PPP) [Time] 10.9 s Normal 9.0-11.6 The [facility] [place] Comment on above: Performed By: #### D DIM, PTT, PT ####[facility] [place] [id number] [place], [place] [address]AsngmiKisha Teresa PT Coag (PPP) [Time] SEE BELOW Normal [facility] Comment on above: Result Comment: PIO RED INR: 2.0 - 3.0 CONDITIONS NOT LISTED BELOW 2.5 - 3.5 FOR PROSTHETIC HEART VALVE REPLACEMENT 2.5 - 3.5 RECURRENT THROMBOSIS Performed By: #### D DIM, PTT, PT ####[facility] [place] [id number] [place], [place] [address]YkkentKisha Teresa PTTon 04-08-2020 aPTT Coag (Bld) [Time] PLEASE NOTE: NORM AL RANGE CHANGE 03-31-2015 DUE TO REAGENT LOT CHANGE Normal [facility] Comment on above: Performed By: #### D DIM, PTT, PT #### [facility] [place] [facility] [address] [place], [place] [address] Kisha Teresa aPTT Coag (Bld) [Time] 26.7 s Normal 22.3-36.2 Th e [facility] [place] Comment on above: Performed By: #### D DIM, PTT, PT #### [facility] [place] [facility] [address] [place], [place] [address] Kisha Teresa Rapid Covid-19 PCR (CVDRPD)o n 04-08-2020 [employer] LDT Info SEE BELOW Normal The [facility] Comment on above: Result Comment: This test is not yet approved or cleared by the [place] Food and Drug Administration (FDA) . This test was developed by [employer] [place]. The performance characteristics of this test were validated by The [facility] [place] [facility]. The results are not intended to be used as the sole means for clinical diagnosis or patient management decisions. The [facility] is authorized under Clinical Laboratory Improvement Amendments (CLIA) to perform high-complexity testing. When diagnostic testing is negative, the possibility of a false negative should be considered in the context of a patients recent exposures and the presence of clinical signs and symptoms consistent with SARS-CoV-2. Performed By: #### C VDRPD #### [facility] [place] [facility] [address] [place] [address] Kisha Teresa SARS-CoV-2 DETECTED NOT DETECTED The [facility] Comment on above: Result Comment: . Performed By: #### C VDRPD #### [facility] [place] [facility] [address] [place] [address] TROPONIN - Ion 04-08-2020 Troponin I.cardiac [Mass/Vol] SEE BELOW Normal The [facility] Comment on above: Result Comment: <0.0 34 ng/ml NEGATIVE 0.034-0.119 INDETERMINATE 0.120 AMI CUT OFF Performed By: #### C MP, TSH, TROP, BNP #### [facility] [place] [facility] [address] [place] [address] Troponin I.cardiac [Mass/Vol] ng/mL Normal <=0.034 The [facility] Comment on above: Performed By: #### C MP, TSH, TROP, BNP #### [facility] [place] [facility] [address] [place] [address] Kisha Brii TSHon 04-08-2020 TSH Qn 2.851 uIU/mL Normal 0.470-4.680 [facility] Comment on above: Performed By: #### C MP, TSH, TROP, BNP #### [facility] [place] [facility] [address] [place] [address] TSH Qn SEE BELOW Normal The [facility] Comment on above: Result Comment: <0.3 4 UIU/ml HYPERTHYROID 0.34-5.60 UIU/ml EUTHYROID >5.60 UIU/ml HYPOTHYROID Performed By: #### C MP, TSH, TROP, BNP #### [facility] [place] [facility] [address] [place] [address] Kisha Brii XR CHEST 1 Von 04-08-2020 XR CHEST 1 V EXAMINATION: XR CHEST 1 V HISTORY: Asthenia ; acute fatigue, [...] right greater than left. Electronically authenticated by: NORY WAN Date: 2020-04-08 11:49 Normal [facility] Vital Signs Date Time Vital Sign Value Performing Clinician Faci lity 10-23-2024 10:55-0400 Body height 175.3 cm Jamil Culver MD Work Phone: [facility] 10-23-2024 10:55-0400 Body mass index (BMI) [Ratio] 23.63 kg/m2 Jamli Culver MD Work Phone: [facility] 10-23-2024 10:55-0400 Body weight 72.58 kg Jamil Culver MD Work Phone: [facility] 10-23-2024 10:55-0400 Diastolic blood pressure 76 mm[Hg] Jamil Culver MD Work Phone: [facility] 10-23-2024 10:55-0400 Heart rate 72 /min Jamil Culver MD Work Phone: [facility] 10-23-2024 10:55-0400 Systolic blood pressure 112 mm[Hg] Jamil Culver MD Work Phone: [facility] 10-09-2024 08:41-0400 Body height 173.99 cm Mayra Spears DPM Work Phone: [facility] 10-09-2024 08:41-0400 Body mass index (BMI) [Ratio] 24 kg/m2 Mayra Spears DPM Work Phone: [facility] 10-09-2024 08:41-0400 Body weight 72.6 kg Mayra Spears DPM Work Phone: [facility] 10-09-2024 08:41-0400 Diastolic blood pressure 66 mm[Hg] Mayra Spears DPM Work Phone: [facility] 10-09-2024 08:41-0400 Heart rate 88 /min Mayra Spears DPM Work Phone: [facility] 10-09-2024 08:41-0400 Respiratory rate 18 /min Mayra Spears DPM Work Phone: [facility] 10-09-2024 08:41-0400 SaO2% (BldA) [Mass fraction] 98 % Mayra Spears DPM Work Phone: [facility] 10-09-2024 08:41-0400 Systolic blood pressure 91 mm[Hg] Mayra Spears DPM Work Phone: [facility] 06-18-2024 08:41-0500 Body height 173.99 cm [facility] 06-18-2024 08:41-0500 Body mass index (BMI) [Ratio] 26.9 kg/m2 [facility] 06-18-2024 08:41-0500 Body weight 81.4 kg [facility] 06-18-2024 08:41-0500 Diastolic blood pressure 86 mm[Hg] [facility] 06-18-2024 08:41-0500 Heart rate 74 /min [facility] 06-18-2024 08:41-0500 Respiratory rate 18 /min [facility] 06-18-2024 08:41-0500 SaO2% (BldA) [Mass fraction] 99 % [facility] 06-18-2024 08:41-0500 Systolic blood pressure 138 mm[Hg] [facility] 04-23-2024 09:26-0500 Body height 173.99 cm [facility] 04-23-2024 09:26-0500 Body mass index (BMI) [Ratio] 26.8 kg/m2 [facility] 04-23-2024 09:26-0500 Body weight 81.27 kg [facility] 04-23-2024 09:26-0500 Diastolic blood pressure 98 mm[Hg] [facility] 04-23-2024 09:26-0500 Heart rate 83 /min [facility] 04-23-2024 09:26-0500 Respiratory rate 18 /min [facility] 04-23-2024 09:26-0500 SaO2% (BldA) [Mass fraction] 98 % [facility] 04-23-2024 09:26-0500 Systolic blood pressure 142 mm[Hg] [facility] 04-07-2024 08:17-0500 Body height 175.3 cm Christopher Edi DO Work Phone: [facility] 04-07-2024 08:17-0500 Body mass index (BMI) [Ratio] 26.11 kg/m2 Christopher Edi DO Work Phone: [facility] 04-07-2024 08:17-0500 Body weight 80.2 kg Christopher Edi DO Work Phone: [facility] 04-07-2024 08:17-0500 Diastolic blood pressure 88 mm[Hg] Christopher Edi DO Work Phone: [facility] 04-07-2024 08:17-0500 Heart rate 84 /min Christopher Edi DO Work Phone: [facility] 04-07-2024 08:17-0500 SaO2% (BldA) [Mass fraction] 98 % Christopher Edi DO Work Phone: [facility] 04-07-2024 08:17-0500 Systolic blood pressure 150 mm[Hg] Christopher Edi DO Work Phone: [facility] 01-21-2024 09:58-0400 Body height 173.99 cm [facility] 01-21-2024 09:58-0400 Body mass index (BMI) [Ratio] 25.5 kg/m2 [facility] 01-21-2024 09:58-0400 Body weight 77.28 kg [facility] 01-21-2024 09:58-0400 Diastolic blood pressure 91 mm[Hg] [facility] 01-21-2024 09:58-0400 Heart rate 82 /min [facility] 01-21-2024 09:58-0400 Respiratory rate 18 /min [facility] 01-21-2024 09:58-0400 SaO2% (BldA) [Mass fraction] 99 % [facility] 01-21-2024 09:58-0400 Systolic blood pressure 137 mm[Hg] [facility] 09-10-2023 08:17-0400 Body height 173.99 cm [facility] 09-10-2023 08:17-0400 Body mass index (BMI) [Ratio] 26.9 kg/m2 [facility] 09-10-2023 08:17-0400 Body weight 81.33 kg [facility] 09-10-2023 08:17-0400 Diastolic blood pressure 91 mm[Hg] [facility] 09-10-2023 08:17-0400 Heart rate 87 /min [facility] 09-10-2023 08:17-0400 Respiratory rate 18 /min [facility] 09-10-2023 08:17-0400 SaO2% (BldA) [Mass fraction] 99 % [facility] 09-10-2023 08:17-0400 Systolic blood pressure 134 mm[Hg] [facility] 06-05-2023 09:15-0500 Body height 173.99 cm Yolette Scally Other [facility] 06-05-2023 09:15-0500 Body mass index (BMI) [Ratio] 25.9 kg/m2 Yolette Scally Other [employer] [facility] [employer] Other 06-05-2023 09:15-0500 Body weight 78.43 kg Yolette Scally Other [facility] [employer] Other 06-05-2023 09:15-0500 Body weight 78.42 kg MD Annie Rodgers Work Phone: [facility] 06-05-2023 09:15-0500 Diastolic blood pressure 83 mm[Hg] Yolette Scally Other [facility] 06-05-2023 09:15-0500 Respiratory rate 18 /min Yolette Scally Other [employer] Other 06-05-2023 09:15-0500 SaO2% (BldA) [Mass fraction] 99 % Yolette Scally Other [employer] Other 06-05-2023 09:15-0500 Systolic blood pressure 119 mm[Hg] Yolette Scally Other [facility] 02-27-2023 10:45-0400 Body height 173.99 cm Yolette Scally Other [employer] Other 02-27-2023 10:45-0400 Body mass index (BMI) [Ratio] 26.07 kg/m2 Yolette Scally Other [employer] Other 02-27-2023 10:45-0400 Body weight 78.93 kg Yolette Scally Other [employer] Other 02-27-2023 10:45-0400 Diastolic blood pressure 86 mm[Hg] Yolette Scally Other [employer] Other 02-27-2023 10:45-0400 Respiratory rate 18 /min Yolette Scally Other [employer] Other 02-27-2023 10:45-0400 SaO2% (BldA) [Mass fraction] 99 % Yolette Scally Other [employer] Other 02-27-2023 10:45-0400 Systolic blood pressure 126 mm[Hg] Yolette Scally Other [employer] Other 12-19-2022 08:45-0400 Body height 173.99 cm Yolette Scally Other [employer] Other 12-19-2022 08:45-0400 Body mass index (BMI) [Ratio] 26.37 kg/m2 Yolette Scally Other [employer] Other 12-19-2022 08:45-0400 Body weight 79.83 kg Yolette Scally Other [employer] Other 12-19-2022 08:45-0400 Diastolic blood pressure 95 mm[Hg] Yolette Scally Other [employer] Other 12-19-2022 08:45-0400 Respiratory rate 18 /min Yolette Scally Other [employer] Other 12-19-2022 08:45-0400 SaO2% (BldA) [Mass fraction] 98 % Yolette Scally Other [employer] Other 12-19-2022 08:45-0400 Systolic blood pressure 149 mm[Hg] Yolette Scally Other [employer] Other 10-03-2022 08:15-0400 Body height 173.99 cm Yolette Scally Other [employer] Other 10-03-2022 08:15-0400 Body mass index (BMI) [Ratio] 27.3 kg/m2 Yolette Scally Other [employer] Other 10-03-2022 08:15-0400 Body weight 82.65 kg Yolette Scally Other [employer] Other 10-03-2022 08:15-0400 Diastolic blood pressure 90 mm[Hg] Yolette Scally Other [employer] Other 10-03-2022 08:15-0400 Respiratory rate 18 /min Yolette Scally Other [employer] Other 10-03-2022 08:15-0400 SaO2% (BldA) [Mass fraction] 99 % Yolette Scally Other [employer] Other 10-03-2022 08:15-0400 Systolic blood pressure 142 mm[Hg] Yolette Philipply Other [employer] Other 07-24-2022 10:30-0400 Body height 173.99 cm Annie Rodgers Other [employer] Other 07-24-2022 10:30-0400 Body mass index (BMI) [Ratio] 27.72 kg/m2 Annie Rodgers Other [employer] Other 07-24-2022 10:30-0400 Body weight 83.92 kg Annie Rodgers Other [facility] Other 07-24-2022 10:30-0400 Diastolic blood pressure 80 mm[Hg] Annie Rodgers Other [facility] Other 07-24-2022 10:30-0400 SaO2% (BldA) [Mass fraction] 97 % Annie Rodgers Other [facility] Other 07-24-2022 10:30-0400 Systolic blood pressure 130 mm[Hg] Annie Rodgers Other [facility] Other 06-28-2022 09:00-0500 Body height 175.26 cm Yolette Scally Other [facility] Other 06-28-2022 09:00-0500 Body mass index (BMI) [Ratio] 27.98 kg/m2 Yolette Scally Other [facility] Other 06-28-2022 09:00-0500 Body weight 85.96 kg Yolette Scally Other [facility] Other 06-28-2022 09:00-0500 Diastolic blood pressure Yolette Scally Other [facility] Other 06-28-2022 09:00-0500 Respiratory rate 18 /min Yolette Scally Other [facility] Other 06-28-2022 09:00-0500 SaO2% (BldA) [Mass fraction] 98 % Yolette Scally Other [facility] Other 06-28-2022 09:00-0500 Systolic blood pressure 116 mm[Hg] Yolette Scally Other [facility] Other 05-05-2022 09:15-0500 Body height 175.26 cm Yolette Scally Other [facility] Other 05-05-2022 09:15-0500 Body mass index (BMI) [Ratio] 28.84 kg/m2 Yolette Scally Other [facility] Other 05-05-2022 09:15-0500 Body weight 88.59 kg Yolette Scally Other [facility] Other 05-05-2022 09:15-0500 Diastolic blood pressure 67 mm[Hg] Yolette Scally Other [facility] Other 05-05-2022 09:15-0500 Respiratory rate 18 /min Yolette Scally Other [facility] Other 05-05-2022 09:15-0500 SaO2% (BldA) [Mass fraction] 97 % Yolette Scally Other [facility] Other 05-05-2022 09:15-0500 Systolic blood pressure 96 mm[Hg] Yolette Scally Other [facility] Other 02-03-2022 09:30-0400 Body height 175.26 cm Yolette Scally Other [facility] Other 02-03-2022 09:30-0400 Body mass index (BMI) [Ratio] 28.14 kg/m2 Yolette Scally Other [facility] Other 02-03-2022 09:30-0400 Body weight 86.46 kg Yolette Scally Other [facility] Other 02-03-2022 09:30-0400 Diastolic blood pressure 94 mm[Hg] Yolette Scally Other [facility] Other 02-03-2022 09:30-0400 Respiratory rate 18 /min Yolette Scally Other [facility] Other 02-03-2022 09:30-0400 SaO2% (BldA) [Mass fraction] 99 % Yolette Scally Other [facility] Other 02-03-2022 09:30-0400 Systolic blood pressure 141 mm[Hg] Yolette Scally Other [facility] Other 11-01-2021 10:15-0400 Body height 175.26 cm Yolette Scally Other [facility] Other 11-01-2021 10:15-0400 Body mass index (BMI) [Ratio] 27.76 kg/m2 Yolette Scally Other [facility] Other 11-01-2021 10:15-0400 Body weight 85.28 kg Yolette Scally Other [facility] Other 11-01-2021 10:15-0400 Diastolic blood pressure 92 mm[Hg] Yolette Scally Other [facility] Other 11-01-2021 10:15-0400 Respiratory rate 18 /min Yolette Scally Other [facility] Other 11-01-2021 10:15-0400 SaO2% (BldA) [Mass fraction] 99 % Yolette Scally Other [facility] Other 11-01-2021 10:15-0400 Systolic blood pressure 123 mm[Hg] Yolette Scally Other [facility] Other 07-20-2021 09:45-0400 Body height 175.26 cm Yolette Scally Other [facility] Other 07-20-2021 09:45-0400 Body mass index (BMI) [Ratio] 27.85 kg/m2 Yolette Scally Other [facility] Other 07-20-2021 09:45-0400 Body weight 85.55 kg Yolette Scally Other [facility] Other 07-20-2021 09:45-0400 Diastolic blood pressure 93 mm[Hg] Yolette Scally Other [facility] Other 07-20-2021 09:45-0400 Respiratory rate 20 /min Yolette Scally Other [facility] Other 07-20-2021 09:45-0400 SaO2% (BldA) [Mass fraction] 100 % Yolette Scally Other [facility] Other 07-20-2021 09:45-0400 Systolic blood pressure 139 mm[Hg] Yolette Scally Other [facility] Other Encounters Encounter Date Encounter Type Care Provider Facility Start: 11-12-2024 End: 11-12-2024 ambulatory Aljanet Walters COLOR FINISHER-C Work Phone: [facility] Work Phone: Start: 11-12-2024 End: 11-12-2024 Departed Referred Mayra Spears DPM [facility] Start: 10-29-2024 End: 10-29-2024 ambulatory Alyssaadriana Walters COLOR FINISHER-C Work Phone: [facility] Work Phone: Start: 10-29-2024 End: 10-29-2024 Departed Referred Mayra Spears DPM [facility] Start: 10-23-2024 End: 10-23-2024 Office outpatient visit 10 minutes Jamil Culver MD Work Phone: [facility] Comment on above: 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) Start: 10-23-2024 End: 10-23-2024 ambulatory [facility] Start: 10-17-2024 End: 10-17-2024 ambulatory [facility] Start: 10-09-2024 End: 10-09-2024 ambulatory Mayra Spears DPM Work Phone: [facility] Work Phone: Start: 10-09-2024 End: 10-09-2024 Patient encounter procedure Mayra Spears DPM Work Phone: [facility] Work Phone: Start: 10-07-2024 End: 10-07-2024 [facility] Start: 09-25-2024 End: 09-25-2024 ambulatory [facility] Start: 09-24-2024 Non-patient / Non-visit Mayra Spears DPM Work Phone: [facility] Work Phone: Start: 09-23-2024 End: 09-23-2024 ambulatory Mayra Spears Facility:[facility] Start: 09-23-2024 End: 09-23-2024 Departed Referred Mayra Spears DPM Work Phone: [facility] Start: 09-23-2024 Non-patient / Non-visit Mayra Spears DPM Work Phone: [facility] Work Phone: Start: 09-22-2024 Non-patient / Non-visit Mayra Spears DPM Work Phone: [facility] Work Phone: Start: 09-21-2024 Non-patient / Non-visit Mayra Spears DPM Work Phone: [facility] Work Phone: Start: 09-20-2024 Non-patient / Non-visit Mayra Spears DPM Work Phone: [facility] Work Phone: Start: 06-18-2024 End: 06-18-2024 ambulatory Yolette Pierre [facility] Work Phone: Start: 06-18-2024 End: 06-18-2024 Departed Referred Yolette Gabby SUPERVISOR [employer]ING Work Phone: [facility] [place] Work Phone: Start: 06-18-2024 End: 06-18-[address] [facility] Work Phone: Start: 06-18-2024 End: 06-18-2024 Patient encounter procedure [facility] Work Phone: Start: 04-23-2024 End: 04-23-2024 Patient encounter procedure [facility] Work Phone: Start: 04-11-2024 End: 04-11-2024 Emergency department patient visit [facility] Start: 04-07-2024 End: 04-07-2024 Bamboo flowsheet Melanie Daley DO Work Phone: [facility] Start: 04-07-2024 End: 04-07-2024 Bamboo flowsheet Melanie Daley DO Work Phone: [facility] Start: 04-07-2024 End: 04-07-2024 Office outpatient new 45 minutes Christopher Edi DO Work Phone: [facility] Comment on above: Neuralgia (Primary D x); DDD (degenerative disc disease), cervical Start: 04-07-2024 End: 04-07-2024 ambulatory YOLIMARCOS EDI Not Available Start: 01-21-2024 End: 01-21-2024 ambulatory [facility] Work Phone: Start: 01-21-2024 End: 01-21-2024 Patient encounter procedure [facility] Work Phone: Start: 09-10-2023 End: 09-10-2023 ambulatory [facility] Work Phone: Start: 09-10-2023 End: 09-10-2023 Patient encounter procedure [facility] Work Phone: Start: 06-07-2023 End: 06-07-2023 ambulatory Yolette Pierre Other [employer] [facility] [employer] Other Start: 06-07-2023 Telephone encounter [facility] Start: 06-05-2023 (DM) Diabetes Yolette Mcfarland [facility] Start: 06-05-2023 End: 06-05-2023 ambulatory MD Annie Rodgers Work Phone: [employer] [facility] [employer] Other Start: 06-05-2023 End: 06-05-2023 Discharged Recurring MD Annie Rodgers Work Phone: [facility] Work Phone: Start: 06-05-2023 End: 06-05-2023 Patient encounter procedure MD Annie Rodgers Work Phone: [facility] Start: 05-18-2023 End: 05-18-2023 ambulatory Yolette Pierre Other [employer] [facility] [employer] Other Start: 05-18-2023 Telephone encounter Yolette Scally [facility] Start: 02-28-2023 End: 02-28-2023 ambulatory Yolette Scally Other [facility] Other Start: 02-28-2023 Telephone encounter Yolette Scally [facility] Start: 02-27-2023 (DM) Diabetes Yolette Scally [facility] Start: 02-27-2023 End: 02-27-2023 ambulatory Yolette Scally Other [facility] Other Start: 12-19-2022 (DM) Diabetes Yolette Scally [facility] Start: 12-19-2022 End: 12-19-2022 ambulatory Yolette Scally Other [facility] Other Start: 12-07-2022 End: 12-07-2022 ambulatory Yolette Scally Other [facility] Other Start: 12-07-2022 Telephone encounter Yolette Scally [facility] Start: 10-03-2022 (DM) Diabetes Yolette Scally [facility] Start: 10-03-2022 End: 10-03-2022 ambulatory Yolette Scally Other [facility] Other Start: 10-03-2022 Telephone encounter Yolette Scally [facility] Start: 07-24-2022 End: 07-24-2022 ambulatory Annie Rodgers Other [facility] Other Start: 07-24-2022 Office outpatient ne w 30 minutes Annie Rodgers [facility] Start: 07-04-2022 End: 07-04-2022 ambulatory Yolette Scally Other [facility] Other Start: 07-04-2022 Telephone encounter Yolette Scally [facility] Start: 06-28-2022 (DM) Diabetes Yolette Scally [facility] Start: 06-28-2022 End: 06-28-2022 ambulatory Yolette Scally Other [facility] Other Start: 06-26-2022 End: 06-26-2022 ambulatory Yolette Scally Other [facility] Other Start: 06-26-2022 Telephone encounter Yolette Scally [facility] Start: 06-19-2022 End: 06-19-2022 ambulatory Yolette Scally Other [facility] Other Start: 06-19-2022 Telephone encounter Yolette Scally [facility] Start: 05-05-2022 (DM) Diabetes Yolette Scally [facility] Start: 05-05-2022 End: 05-05-2022 ambulatory Yolette Scally Other [facility] Other Start: 03-27-2022 End: 03-27-2022 ambulatory Yolette Scally Other [facility] Other Start: 03-27-2022 Telephone encounter Yolette Scally [facility] Start: 02-03-2022 (DM) Diabetes Yolette Scally [facility] Start: 02-03-2022 End: 02-03-2022 ambulatory Yolette Scally Other [facility] Other Start: 11-21-2021 End: 11-21-2021 ambulatory Yolette Scally Other [facility] Other Start: 11-21-2021 Telephone encounter Yolette Scally [facility] Start: 11-11-2021 End: 11-11-2021 ambulatory Yolette Scally Other [facility] Other Start: 11-11-2021 Telephone encounter Yolette Scally [facility] Start: 11-01-2021 (DM) Diabetes Yolette Scally [facility] Start: 11-01-2021 End: 11-01-2021 ambulatory Yolette Scally Other [facility] Other Start: 10-24-2021 End: 10-24-2021 ambulatory Yolette Scally Other [facility] Other Start: 10-24-2021 Telephone encounter Yolette Scally [facility] Start: 09-13-2021 End: 09-13-2021 ambulatory Yolette Scally Other [facility] Other Start: 09-13-2021 Telephone encounter Yolette Scally [facility] Start: 08-23-2021 End: 08-23-2021 ambulatory Yolette Scally Other [facility] Other Start: 08-23-2021 Telephone encounter Yolette Scally [facility] Start: 08-04-2021 End: 08-04-2021 ambulatory Yolette Scally Other [facility] Other Start: 08-04-2021 Telephone encounter Yolette Scally [facility] Start: 07-20-2021 (DM) Diabetes Yolette Scally [facility] Start: 07-20-2021 End: 07-20-2021 ambulatory Yolette Scally Other [facility] Other Start: 04-08-2020 End: 04-08-2020 Patient encounter procedure MARCEL PAIZ Facility:[facility]1 Procedures Date Procedure Procedure Detail Performing Clinician History of amputatio n of lesser toe H/O amputation of lesser toe Mayra Spears DPSaud Work Phone: Comment on above: right great toe Plan of Treatment Date Care Activity Detail Author Start: 10-23-2025 Adult BMI Screening Adult BMI Screen ing [facility] Start: 04-11-2025 Tobacco Screening Tobacco Screening [facility] Start: 01-05-2025 Influenza vaccination Influenza Vacc ine [facility] Start: 10-29-2024 [facility] Start: 04-07-2024 End: 04-07-2024 Patient encounter procedure 04/07/2024 8:30 AM EST Office Visit [facility] [address] [place] [id number] Melanie Daley DO [address] [place] [address] [id number] [facility] Comment on above: Arrived Start: 2011 Administration of varicella zoster vaccine Zoster (Shingles) Vaccine (1 of 2) [facility] Start: 02-06-1980 DTaP,Tdap and Td Vac cines (1 - Tdap) DTaP,Tdap and Td Vaccines (1 - Tdap) [facility] Start: 1973 Depression Screening Depression Scre ening [facility] Comprehensive metabo lic 1999 panel - Serum or Plasma [facility] Comprehensive metabo lic 1999 panel - Serum or Plasma [facility] Payers Date Payer Category Payer Self-pay [id number] 2024 Medicare HMO [facility] [id number] 2024 Medicare [id number] 2022 Medicare (Managed Care) [facility] [id number] 2022 Medicare [id number] 1961 Unknown [id number] 1961 Unknown [id number]. 1259 1961 Unknown [id number]. 1286 1961 Unknown [id number]. 1286 1961 Unknown [id number]. 1286 1961 Unknown [id number] [id number]. 1286 1961 Unknown [id number] [id number]. 1286 1959 Unknown [id number] Medicare [id number] Unknown [id number] 531 Unknown [id number] [id number]. 531 Unknown [id number]. 531 Unknown [id number] 531 Social History Date Type Detail Facility Unknown if ever smoked [facility] Other Start: 06-17-2020 End: 04-11-2024 Sex Assigned At Jybe Other Start: 1960 Sex Assigned At Male F [facility] Start: 09-10-2023 End: 10-09-2024 Tobacco smoking status [facility] Ex-smoker (finding) [facility] Tobacco smoking status [facility] Tobacco smoking consumption unknown [facility] Start: 1960 Sex assigned at Not on file [facility] Start: 12-10-2014 End: 06-18-2024 Sex Male (finding) [facility] History of tobacco use Current smoker [facility] Start: 04-11-2024 Alcoholic beverage intake Current drinker of alcohol (finding) [facility] Start: 06-17-2020 End: 04-11-2024 Alcoholic beverage intake [facility] Childcare Unknown [facility] Medical Equipment Procedure Code Equipment Code Equipment [...] ischemia of right lower extremity with gangrene ([facility]-HCC) He has no significant occlusive disease. Plan is to continue to work with podiatry and follow up with us as needed. [facility] 10-23-2024 Miscellaneous Notes Associate d Problem(s): Critical limb ischemia of right lower extremity with gangrene ([facility]-HCC) He has no significant occlusive disease. Plan is to continue to work with podiatry and follow up with us as needed. documented in this encounter [facility] 10-23-2024 History of Presen t illness [...] Diagnosis Date Diabetes mellitus type 2, controlled ([facility]-HCC) Hyperlipidemia Hypertension Past Surgical History: Past Surgical History: Procedure Laterality Date lower ext angio Right 10/17/2024 Performed by Jamil Culver MD at [facility] Social and Family [...] extremity with gangrene (CMS-HCC) Jamil Culver MD, RDAHA, RPVI, FSVS, FACS [facility] This note was created with the assistance of a speech recognition program. While intending to generate a timely document that accurately reflects the content of the visit, no guarantee can be provided that every grammatical or spelling mistake has been or will be identified or corrected. Thank you for your understanding. documented in this encounter [facility] 10-09-2024 Evaluation note Diagnosis Onset Date Resolution BMI 25.0-25.9,adult acute October 09, 2024 8:20am Dietary counseling and surveillance acute October 09, 2024 8:20am HTN (hypertension) acute October 092024 8:20am Hyperlipidemia acute October 09, 2024 8:20am Hypotension acute October 09 8:20am long term care administrator 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 insulin acute October 09, 2024 8:20am Persistent albuminuria acute Ju 2024 8:20am Type 2 diabetes mellitus with hyperglycemia acute October 09 8:20am Vitamin D deficiency acute October 09, 2024 8:20am [facility] Work Phone: 1(228) 990-927312-18-2024 Evaluation note* Diagnosis Onset Date Resolution Status Admit Date BMI 25.0-25.9,adult acute Decem viji 2023 8:54am Dietary counseling and surveillance acute April 23 8:54am HTN (hypertension) acute Decemb er 2023 8:54am Hyperlipidemia acute April 062023 8:54am senior care 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 insulin acute April 23 8:54am Persistent albuminuria acute De cember 2023 8:54am Type 2 diabetes mellitus wit h hyperglycemia acute April 23 024 8:54am Vitamin D deficiency acute Dece mber 2023 8:54am BMI 25.0-25.9,adult acute Febru jennie 2024 8:25am Dietary counseling and surveillance acute June 18 025 8:25am HTN (hypertension) acute Februa ry 2024 8:25am Hyperlipidemia acute June 072024 8:25am senior care 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 insulin acute June 18 8:25am Persistent albuminuria acute Fe bruary 2024 8:25am Type 2 diabetes mellitus wit h hyperglycemia acute June 18 025 8:25am Vitamin D deficiency acute Febr uary 2024 8:25am [facility] Work Phone: 1(629) 338-523812-02-2024 History of Present illness Narrative* Melanie Daley, [...] , wrist extensors , wrist flexor , curriculum development specialist strength 5/5. LUE Strength deltoid , biceps , triceps , wrist extensors , wrist flexor , curriculum development specialist strength 5/5. RLE Strength illopsoas, quadriceps, [...] reflex 2+ . Christy's sign negative. Coordination: [id number] testing and rapid alternating movements are normal [...] plan, and return instructions [id number] Evaluation note* Encounter Date Diagnosis Assessment Notes Treatment Notes Treatment Clinical Notes Jun, Type 2 diabetes mellitus with hyperglycemia (ICD-10 - E11.65) [facility] Other 01-30-2024 Evaluation note* Encounter Date Diagnosis [...] ESTABLISH WITH PCP May, long term care administrator 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 insulin (ICD-10 - Z79.4) May, Persistent albuminuria (ICD-10 - R80.9) Failed Jardiance, Tolerating Farxiga, increase Lisinopril last visit and tolerating. CANNOT PRODUCE URINE SAMPLE tODAY, LAB ORDER SENT TO FOLLOWUP. If persistent albuminuria could consider nephrology. Discussed management of glycemia and high blood pressure to protect kidneys. May, Albuminuria (ICD-10 - R80.9) May, BMI 25.0-25.9,adult (ICD-10 - Z68.25) [facility] Other 10-25-2023 Evaluation note* Encounter Date Diagnosis Assessment Notes Treatment Notes Treatment Clinical Notes Feb, Albuminuria (ICD-10 - R80.9) [facility] Other 10-24-2023 Evaluation note* Encounter Date Diagnosis [...] continue BP good. ESTABLISH WITH PCP Feb, long term care administrator 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 insulin (ICD-10 - Z79.4) Feb, Persistent albuminuria (ICD-10 - R80.9) Failed Jardiance, will do trial of Farxiga. If cannot tolerate class medications or persistent albuminuria could consider nephrology. Repeat microalbuminuria after Farxiga. Discussed management of glycemia and high blood pressure to protect kidneys. Feb, BMI 26.0-26.9,adult (ICD-10 - Z68.26) Feb, Albuminuria (ICD-10 - R80.9) [facility] Other 08-15-2023 Evaluation note* Encounter Date Diagnosis [...] slightly above goal Dec, long term care administrator 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 insulin (ICD-10 - Z79.4) Dec, Persistent albuminuria (ICD-10 - R80.9) Failed Jardiance, will do trial of Farxiga. If cannot tolerate class medications or persistent albuminuria could consider nephrology. Repeat microalbuminuria after Farxiga. Discussed management of glycemia and high blood pressure to protect kidneys. Dec, BMI 27.0-27.9,adult (ICD-10 - Z68.27) [facility] Other 05-30-2023 Evaluation note* Encounter Date Diagnosis Assessment Notes Treatment Notes Treatment Clinical Notes September, Vitamin D deficiency (ICD-10 - E55.9) Learning About Vitamin D material was published to portal September, Type 2 diabetes mellitus with hyperglycemia (ICD-10 - E11.65) Jennifer Vera 10/03/2022 08:12:58 AM >BG 88 given 4 ozs juice Jennifer Vera 10/03/2022 08:27:56 AM >BG recheck 100 -- ROBERTA CONSISTENT --dcs ASSESSMENT: 1. Uncontrolled, a Type [...] published to portal slightly above goal September, long term care administrator 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 insulin (ICD-10 - Z79.4) September, Persistent albuminuria (ICD-10 - R80.9) Failed Jardiance, will do trial of Farxiga. If cannot tolerate class medications or persistent albuminuria could consider nephrology. Repeat microalbuminuria after Farxiga. Discussed management of glycemia and high blood pressure to protect kidneys. September, BMI 27.0-27.9,adult (ICD-10 - Z68.27) [facility] Other 03-20-2023 Evaluation note* Encounter Date Diagnosis Assessment Notes Treatment Notes Treatment Clinical Notes Jul, Hyperlipidemia (ICD-10 - E78.5) will refill med and check labs today. Jul, Type 2 diabetes mellitus with hyperglycemia (ICD-10 - E11.65) Continued followup with diabetes clinic. Pt states he hasn't had an eye exam for 2 years - advised followup [facility] Other 02-22-2023 Evaluation note* Encounter Date Diagnosis [...] Instructions material was published to portal Jun, senior care 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 insulin (ICD-10 - Z79.4) Jun, BMI 28.0-28.9,adult (ICD-10 - Z68.28) Jun, Persistent albuminuria (ICD-10 - R80.9) Failed Jardiance, will do trial of Farxiga. If cannot tolerate class medications or persistent albuminuria could consider nephrology. Repeat microalbuminuria after Farxiga. Discussed management of glycemia and high blood pressure to protect kidneys. Jun, Other inital weigh t increase, now declining [facility] Other 02-13-2023 Evaluation note* Encounter Date Diagnosis Assessment Notes Treatment Notes Treatment Clinical Notes Jun, Type 2 diabetes mellitus with hyperglycemia (ICD-10 - E11.65) [facility] Other 12-30-2022 Evaluation note* Encounter Date Diagnosis [...] PCP to manage cholesterol and preventative treatments. [facility] physician group primary care provider [...] will have patient present for download with assistant health educator in 4 weeks and provider in [...] published to portal Apr, long term care administrator 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 insulin (ICD-10 - Z79.4) Apr, BMI 28.0-28.9,adult (ICD-10 - Z68.28) Apr, Persistent albuminuria (ICD-10 - R80.9) Failed Jardiance, will do trial of Farxiga. If cannot tolerate class medications or persistent albuminuria could consider nephrology. Repeat microalbuminuria after Farxiga. Discussed management of glycemia and high blood pressure to protect kidneys. Apr, Other inital weigh t increase, now declining [facility] Other 09-30-2022 Evaluation note* Encounter Date Diagnosis [...] a coupon card for activation. She continue roberta. Encouraged calling [employer] for replacement of 2 sensors. We discussed [...] Instructions material was published to portal Jan, senior care 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 insulin (ICD-10 - Z79.4) [...] Other inital weigh t increase, now declining [facility] Other 07-18-2022 Evaluation note* Encounter Date Diagnosis Assessment Notes Treatment Notes Treatment Clinical Notes Nov, Type 2 diabetes mellitus with hyperglycemia (ICD-10 - E11.65) Nov, senior care current us e of insulin (ICD-10 - Z79.4) [facility] Other 06-28-2022 Evaluation note* Encounter Date Diagnosis [...] clinic in 6 weeks for download with assistant health educator in 3 months with provider 3. [...] Instructions material was published to portal Oct, senior care 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 insulin (ICD-10 - Z79.4) Oct, BMI 27.0-27.9,adult (ICD-10 - Z68.27) Oct, Other inital weigh t increase, now declining [facility] Other 03-16-2022 Evaluation note* Encounter Date Diagnosis [...] increase this. Patient has difficulty with his reproduction artist currently, questioning accuracy as it was run over. He will request a new reproduction artist from [employer]. We also discussed using cell phone as [...] previous PCP. He is given information regarding [facility] physicians to include Dr. Vela who may be geographically desirable. I did send him with written to do list 1 call [employer] for replacement of reproduction artist. To download [employer] matthew on cell phone for next sensor [...] About Healthy Weight material was published to [facility] Jul, Hyperlipidemia (ICD-10 - E78.5) Learning About High Cholesterol material was published to [facility] LDL 53-- Continue Crestor Jul, HTN (hypertension) (ICD-10 - I10) High Blood Pressure: Care Instructions material was published to [facility] Jul, long term care administrator 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 insulin (ICD-10 - Z79.4) Jul, BMI 27.0-27.9,adult (ICD-10 - Z68.27) Jul, Other inital weigh t increase, now declining [facility] Other Chief complaint+Reason for visit Narrative* Chief Complaint DMN f/u-METER Reason for Visit BMI 25.0-25.9,adult Dietary counseling and surveillance HTN (hypertension) Hyperlipidemia long term care administrator 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 insulin Persistent albuminuria Type 2 diabetes mellitus with hyperglycemia Vitamin D deficiency [facility] Work Phone: Evaluation noteNo InformationNorth [employer] Other Evaluation noteNo assessment information available [facility] Work Phone: Evaluablye note* Diagnosis Onset Date Resolution Status BMI 25.0-25.9,adult acute Dietary counseling and surveillance acute HTN (hypertension) acute Hyperlipidemia acute senior care 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 insulin acute Persistent albuminuria acute Type 2 diabetes mellitus with hyperglycemia acute Vitamin D deficiency acute [facility] Work Phone: Evaluation note* Diagnosis [...] October 09, 2024 8:20am long term care administrator 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 insulin acu te October 09, 2024 8:20am Persistent albuminuria acute Ju 2024 8:20am Type 2 diabetes mellitus wit h hyperglycemia acute October 09, 2024 8 :20am Vitamin D deficiency acute October 09, 2024 8:20am [facility] Work Phone: Evaluation note* Diagnosis Critical limb ischemia of right lower extremity with gangrene (CMS-HCC)- Primary PAD (peripheral artery disease) Unspecified peripheral vascular disease Gangrene (CMS-HCC) Gangrene Critical limb ischemia of right lower extremity with gangrene (CMS-HCC)- Primary [facility] - [facility]* Type Description Date Medical History Herpes zoster dermatitis Medical History Abscess, lip- PICC line prolonge d ABX 2017 Medical History Neck sprain, strain Medical History Hypertension, controlled Medical History Hyperlipidemia Medical History Diabetes, type 2 Medical History Hx of Covid 19 (04/2020) Surgical History PICC LINE 2017 Hospitalization History ICU In [facility] f or 8-10 days 2017 [employer] Other InstructionsNot on filedocumented in this encounter [facility]ative)* Reason Nail deformity, Type II Diabetes Referral sent , patient informed Diagnosis 1 Type 2 diabetes reji itus with hyperglycemia (E11.65) Diagnosis 2 Nail deformity (L60. 8) Referral Organization [facility] Referring Provider First Name Yolette Referring Provider Last Name Gabby Referring Provider Specialty Nurse Pract itioner Referred Organization [facility] Referred Provider NORY AHMADI Referred Address ,[place], [place],[address] Referred Provider Specialty Podiatry - S urgical Chiropody Referral Priority Routine General Notes Yolette Benavides 06/08 09:03:14 AM > Per Nelia at Dr Montes office once referral is received she will call patient for appt, Yolette Taylor 06/30/2022 09:23:23 AM > Referral faxed, for some reason last office note did not attach so I did fax the last office note seperatly thru our free standing office fax. and informed Yolette Avitia 06/30/2022 09:30:52 AM >Patient informed, and given Dr Montes phone number in case he doesn't hear from them. Clinical Notes Dr Nory Ahmadi# [phone] [facility] Other Reason for referral (narrative)No reason for referral [facility] Work Phone: Summary Purpose Family History No Family History [...] Visit Chief Complaint Dm DM Chief Complaint roberta reader Chief Complaint Admit Date DMN f/u / meter April 23, 2024 8:54am 8 week-DMN f/u / meter June 18 8:25am Reason for Visit Admit Date BMI 25.0-25.9,adult April 23, 2024 8:54am Dietary counseling and surveillance Dece mber 2023 8:54am HTN (hypertension) April 23, 2024 8:54am Hyperlipidemia April 23, 2024 8:54am senior care 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 insulin Decembe r 2023 8:54am Persistent albuminuria April 23 8:54am Type 2 diabetes mellitus with hyperglyce samir April 23, 2024 8:54am Vitamin D deficiency April 23, 2024 8:54am BMI 25.0-25.9,adult June 18, 2024 8:25am [facility]ary [facility] HTN (hypertension) June 18, 2024 8:25am Hyperlipidemia June 18, 2024 8:25am senior care 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 insulin ua2024 8:25am Persistent albuminuria June 18 8:25am Type [...] m Hyperlipidemia October 09, 2024 8:20a m long term care administrator 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 insulin October 8:20am Persistent [...] m Hypotension October 09, 2024 8:20a m long term care administrator 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 insulin October 8:20am Persistent [...] 8:20am Unknown October 29, 2024 2:45 pm Unknown November 12, 2024 1:45p m Additional Source Comments (unrecognized sect ion and content) No Status Records FoundNo Status Records FoundNo Status Records FoundNo Status Records FoundNo Status Records FoundNo Status Records Found INFORMATION SOURCE (unrecogn ized section and content) DATE CREATED AUTHOR 04/12/2020 [facility] DATE CREATED AUTHOR AUTHOR'S ORGANIZ ATION 04/07/2024 [facility] EPIC DATE CREATED AUTHOR AUTHOR'S ORGANIZ ATION 10/08/2024 [facility] DATE CREATED AUTHOR AUTHOR'S ORGANIZ ATION 10/20/2024 [facility] DATE CREATED AUTHOR AUTHOR'S ORGANIZ ATION 10/26/2024 [facility] DATE CREATED AUTHOR AUTHOR'S ORGANIZ ATION 11/17/2024 [facility] REASON FOR VISIT (unrecogniz ed section and content) Reason Comments Critical limb ischemia of right lower ex tremity with gangre rt leg angiogram 6-13-25 Care Teams (unrecognized sec tion and content) Team Status: Active Member Role Status Dates NON STAFF Primary Care Provider Active Team Status: Active Member Role Status Dates Francisco Walters , COLOR FINISHER-C Primary Care Provider Active Start: September 20, 2024 Krys Hummel MD Attending Provider Active Sta rt: September 20, 2024 Team Status: Active Member Role Status Dates Francisco Walters , COLOR FINISHER-C Primary Care Provider Active Start: September 21, 2024 Shaikh Shaji MD Attending Provider Active Sta rt: September 21, 2024 Team Status: Active Member Role Status Dates Francisco Walters , COLOR FINISHER-C Primary Care Provider Active Start: September 22, 2024 Shaikh Shaji MD Attending Provider Active Sta rt: September 22, 2024 Team Status: Active Member Role Status Dates Francisco Walters , COLOR FINISHER-C Primary Care Provider Active Start: September 23, [...] Team Status: Active Member Role Status Dates Annie Rodgers MD Primary Care Provider Active Team Status: Inactive Member Role Status Dates Yolette Pierre APRN Attending Provider Active Start: June 05, 2023 End: June 05, 2023 Team Status: Inactive Member Role Status Dates Yolette Pierre APRN Active Star t: June 05, 2023 End: June 05, 2023 Annie Rodgers MD Primary Care Provider Active Start: June 05, 2023 End: June 05, 2023 Yolette Pierre APRN Attending Provider Active Start: June 05, 2023 End: June 05, 2023 Team Status: Inactive Member Role Status Dates Annie Rodgers MD Primary Care Provider Active Start: September 10, 2023 End: September 10, 2023 Yolette Pierre APRN Attending Provider Active Start: September 10, 2023 End: September 10, 2023 Team Status: Inactive Member Role Status Dates Annie Rodgers MD Primary Care Provider Active Start: January 21, 2024 End: January 21, 2024 Yolette Pierre APRN Attending Provider Active Start: January 21, 2024 End: January 21, 2024 [employer] Relationship Specialty Start Date End Date Melanie Daley DO [address] [address] Referring Physician Neurology 04/07/24 Leticia Blanco NP [address] [address] Nurse Practitioner Neurology 04/07/24 Suzanna Ybarra NP [address] [phone] Nurse Practitioner Neurology 04/07/24 Team Status: Inactive Member Role Status Dates Annie Rodgers MD Primary Care Provider Active Start: [...] Francisco Walters NP-C Primary Care Provider Active Team Status: Inactive Member Role Status Dates Yolette Pierre APRN Attending Provider Active Start: June 18, 2024 End: June 18, 2024 [employer] Software Developer Relationship Specialty Start Date End Date No Pcp, [place] [address] PCP - General Family Medicine 04/11/24 Team Status: Inactive Member Role Status Dates Mayra Spears DPM MS Attending Provider Active Start: October 29, 2024 End: October 29, 2024 Team Status: Inactive Member Role Status Dates Mayra Spears DPM MS Attending Provider Active Start: November 12, 2024 End: November 12, 2024 Goals (unrecognized section and content) Goals [...] BE BASED ON THE PRIMARY CLINICAL RECORDS. [facility] [employer] provides no warranty or guarantee of the accuracy or completeness of information in this document.
== END 2024-11-19 09:13 | disposition home or self-care (01) ==
LOC: WC 09:12
PROVIDERS: PCP Family Medicine; Visit Provider Physician Assistant
DX: I70.261 Atherosclerosis of native arteries of extremities with gangrene, right leg (principal); L97.514 Non-pressure chronic ulcer of other part of right foot with necrosis of bone
CPT/HCPCS: G0463

== ENCOUNTER 2024-11-26 13:02 | Outpatient (OUT) | payer MEDICARE, SELFPAY | END 2024-11-26 13:03 | disposition home or self-care (01) | LOC: WC 13:02 | PROVIDERS: PCP Family Medicine; Visit Provider Podiatrist Foot & Ankle Surgery | DX: I70.261 Atherosclerosis of native arteries of extremities with gangrene, right leg (principal); L97.514 Non-pressure chronic ulcer of other part of right foot with necrosis of bone | CPT/HCPCS: G0463 ==

== ENCOUNTER 2024-12-10 13:11 | Outpatient (OUT) | payer MEDICARE, SELFPAY | END 2024-12-10 13:12 | disposition home or self-care (01) | LOC: WC 13:11 | PROVIDERS: PCP Family Medicine; Visit Provider Physician Assistant | DX: I70.261 Atherosclerosis of native arteries of extremities with gangrene, right leg (principal); L97.514 Non-pressure chronic ulcer of other part of right foot with necrosis of bone; E11.621 Type 2 diabetes mellitus with foot ulcer | CPT/HCPCS: 87070; 87075 ==

== ENCOUNTER 2024-12-10 17:32 | Outpatient (REF) | payer MEDICARE, SELFPAY | END 2024-12-10 17:33 | disposition home or self-care (01) | LOC: LAB 17:32 | PROVIDERS: PCP Family Medicine; Visit Provider Podiatrist Foot & Ankle Surgery | DX: E11.621 Type 2 diabetes mellitus with foot ulcer (principal) | CPT/HCPCS: 87070; 87075 ==

== ENCOUNTER 2024-12-24 09:10 | Outpatient (OUT) | payer MEDICARE, SELFPAY ==
--- OUTSIDE RECORDS SUMMARY | 2024-12-24 09:16 | XMS_ITS | CCD ---
Author Organization [facility] CliniSyct Care Team Providers Care Reexaminer Name Role Phone MARCEL PAIZ Attending Unavailable NORY WAN Consulting Unavailable ANNIE RODGERS Primary Care Unavailable MARCEL PAIZ Admitting Unavailable MARCEL PAIZ Consulting Unavailable Yolette Pierre Unavailable Annie Rodgers Unavailable MD Annie Rodgers Primary Care Provider [phone] TIFFANIE Pierre Attending Provider Unavailable Primary Care Provider UnavailMelanie Hale DO Unavailable [phone] Francis CNC MACHINE OPERATOR, Leticia Unavailable Tate CNC MACHINE OPERATOR, Suzanna Unavailable MELANIE DALEY Attending Unavailable [...] PCP, NO PCP Primary Care Unavailable Selena CNC MACHINE OPERATOR-C, Francisco Lee Primary Care Provider [phone] Estephanie CARVALHO, Krys Mckenzie Attending Provider Shaji CARVALHO, Attending Provider [phone] Desiree Garcia CMA Attending Provider Unavaila ble Yolette Pierre APRN Attending Provider NON STAFF Primary Care Provider UnavailMayra Shepard Admitting Unavailable Mayra Spears Attending Unavailable Mayra Spears Admitting Unavailable Mayra Spears Attending Unavailable Yolette [...] 09/25/2024 Active Blood-Glucose Meter [place]Onetouch Ultra2 Meter[place] [facility] [place] Start: 06-18-2024 Blood-Glucose Meter (Onetouch Ultra2 Meter) [facility] [place] Active 0 .Route 1 June 18, 2024 10:07am As directed test blood sugar three times daily Start: 06-18-2024 Blood-Glucose Meter (Onetouch Ultra2 Meter) [facility] [place] [place] 0 .Route 1 June 18, 2024 9:07am As directed test blood sugar three times daily Start: 06-18-2024 End: 06-18-2024 Blood-Glucose Meter (Onetouc h Ultra2 Meter) [facility] [place] Discontinued 0 .Route June 18, 2024 1:00am June 18, 2024 10:08am As directed Start: 06-18-2024 End: 06-18-2024 Blood-Glucose Meter (Onetouc h Ultra2 Meter) [facility] [place] Discontinued 0 .Route June 18, 2024 12:00am June 18, 2024 9:08am As directed cholecalciferol 0.05 mg oral capsule (14 sources) Vitamin D Start: 09-05-2023 take 1 capsule by [facility] once daily Start: 12-19-2022 take 1 capsule by [facility] every week Cholecalciferol 1.25 MG (91460 UT) 1 capsule Orally weekly for 56 days Then D3 OtC 4000 UT daily Dec, Active take 1 capsule by [facility] every week Cholecalciferol 100 MCG (4000 UT) 1 capsule Orally weekly for 56 days Then D3 OtC 4000 UT daily Active take 1 capsule by [facility] every week Cholecalciferol 1.25 MG (00952 UT) 1 capsule Orally weekly for 56 [...] daily Start: 02-03-2022 take 1 tablet by [facility] every twenty-four hours Farxiga 5 MG [...] has coupon card Active Flash Glucose Scanning [place] (Freestyle Roberta 2 [place]) misc (14 sources) Start: 09-07-2023 Flash Glucose Scanning [place] (Freestyle Roberta 2 [place]) misc Active 0 .MEDSUPPLY September 07, 2023 12:58pm As directed to monitor blood sugar Start: 09-07-2023 Flash Glucose Scanning [place] (Freestyle Roberta 2 [place]) misc Active 0 .MEDSUPPLY September 07, 2023 1:58pm As directed to monitor blood sugar Start: 09-07-2023 End: 09-07-2023 Flash Glucose Scanning [place] (Freestyle Roberta 2 [place]) misc Discontinued 0 .MEDSUPPLY September 06, 2023 11:00pm September 07, 2023 1:01pm As directed Start: 09-07-2023 End: 09-07-2023 Flash Glucose Scanning [place] r (Freestyle Roberta 2 [place]) misc Discontinued 0 .MEDSUPPLY September 07, 2023 [...] Roberta 2 Sensor) kit [facility], [facility] 1:00am March 24, 2024 10:37am As directed Change every 14 Days Start: 03-24-2024 End: 03-24-2024 Flash Glucose Sensor (Freest yle Roberta 2 Sensor) kit Discontinued 0 [facility] March 24, 2024 12:00am March 24, 2024 9:37am As directed Change every 14 Days Start: 09-05-2023 End: 03-24-2024 Flash Glucose Sensor (Freest yle Roberta 2 Sensor) kit Discontinued EACH .ROUTE [facility] September 05, 2023 12:00am March 24, 2024 10:36am As directed Start: 09-05-2023 End: 03-24-2024 Flash Glucose Sensor (Freest yle Roberta 2 Sensor) kit Discontinued EACH .ROUTE .MEDSUPPLY September 04, 2023 11:00pm March 24, 2024 9:36am As directed Start: 09-05-2023 Flash Glucose Sensor (Freestyle Roberta 2 Sensor) kit Active EACH .ROUTE .MEDSUPPLY September 05, 2023 12:00am As directed FreeStyle Roberta 2 [place] - (20 sources) Start: 08-24-2021 FreeStyle Libr e 2 [place] - as directed SQ 5 x day [...] Prime Test - (20 sources) ReliOn Prime Kymebrly t - as directed In Vitro Active [...] UP; Refills: 1; Qty: 30 ml; Provider: Gbaby Eisenberg Start: 09-05-2023 End: 09-10-2023 Insulin Aspart [...] 11-01-2021 Chronic Gangrene (4 sources) Atherosclerosis of [place] arteries of extremities with gangrene, right leg; [...] encounter] 10-09-2024 Chronic Other aftercare (17 sources) terminologist (current) use of insulin; Translations: [Long-term (current) use of insulin] Onset: 04-12-2020 Resolved: 11-21-2021 Episodic Other aftercare (20 sources) Long-term 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 insulin; Translations: [terminologist (current) use of insulin] 09-05-2023 Episodic Other [...] Test Name Value Interpretation Reference Range Facility [facility] 11-12-2024 L Specimen: [id number] Received: 11/13/24 Status: LORENA Childs Num: [id number] Spec Type: Surgical Subm Dr: Mayra Spears DPM, MS Tissues: A DIGIT AMPUTATION (BONE FROM R 2nd TOE) Procedures: HE/2, Gross/Micro L4, Decalcification Age/ Patient Sex Location Account Attending Physician Jassi Rodriguez 64/M LABELL [id number] Mayra Spears DPM, MS SPEC NUM: [id number] RECD: 11/13/24 STATUS: LORENA CHILDS NUM: [id number] SCOTT: 11/12/[address]: Mayra Spears DPM, MS ENTERED: 11/13/[address]: Stephanie Guzman SPEC TYPE: Surgical DEPT: THANH MURRAY ENTERED BY: [id number] RECV BY: [id number] ORDERED: HE/2, Gross/Micro L4, Decalcification ORDERED: HE/2, Gross/Micro L4, Decalcification Pathological Diagnosis Right second toe bone: ? Gangrenous necrosis involving dense fibrous tissue and bone Clinical Information Right toe ulcer with gangrene and bone necrosis Gross Description Part A is received in formalin labeled with the patients name, date of , and R second toe bone is a somewhat cylindrical segment of valencia-stevens, granular bone, 2 cm in length by up to 1.3 cm in diameter, resected with stevens-pink to valencia-purple rubbery tissue, up to 0.3 cm in thickness. A longitudinal section of the bone is submitted in A1 after decalcification with the soft tissue submitted in A2. (2, , [id number] A) CPT Codes 52294, 68377 Specimen: [id number] Received: 11/13/24 Status: LORENA Childs Num: [id number] Spec Type: Surgical Subm Dr: Mayra Spears,AN, MS Tissues: A DIGIT AMPUTATION (BONE FROM R 2nd TOE) Procedures: HE/2, Gross/Micro L4, Decalcification Patient: Jassi Rodriguez SR [id number] (Continued) Signed (signature on file) Uziel Lozano MD 11/18/24 1140 Normal [facility] No Panel InformationOrdered By: Mayra Spears on 10-29-2024 Miscellaneous Pathology Test See comment [facility] Comment on above: See report. Scanned copy available in EMR. Pathology Request for Lab Co rpon 10-29-2024 Pathology Request for Lab David Normal [facility] Comment on above: Order Comment: BONE 2ND RT TOE Result Comment: See report. Scanned copy available in EMR. PERFORMED BY: [place] [address] PATHOLOGIST GROUP TESTER GOOD RIDDLE M.D. Performed By: #### P ATH TO [facility] #### [address] POCT BUN, CREATon 10-17-2024 Creatinine [Mass/Vol] 1.1 mg/dL Normal 0.7-1.2 [facility] Comment on above: Performed By: #### I BC #### [facility] ([facility] [address] [place] [address] VIR GFR/1.73 sq M.predicted among non-blacks MDRD (S/P/Bld) [Vol rate/Area] 75 mL/min/{1.73_m2} Normal >=60 [facility] Comment on above: Result Comment: Repo rted eGFR is based on the CKD-EPI 2020 equation that does not use a race coefficient. Performed By: #### I BC #### [facility] ([facility]) [address] [place] [address] VIR Urea nitrogen [Mass/Vol] 17 mg/dL Normal 6-27 [facility] Comment on above: Performed By: #### I BC #### [facility] ([facility]) [address] [place] [address] VIR PORTABLE GLUCOSEon Glucose [Mass/Vol] 89 mg/dL Normal 65-[address] [facility] Comment on above: Performed By: #### I GLU #### [facility] ([facility]) [address] [place] [address] VIR HbA1c HPLC (Bld) [Mass fract ion]on 10-09-2024 HbA1c (Bld) [Mass fraction] 6.6 % [facility] No Panel Informationon 10-09 Bedside Glucose 123 [facility] Basophils Auto (Bld) [#/Vol] on 09-23-2024 Basophils (Bld) [#/Vol] Automated basophil count 0.0-0.1 [facility] Basophils (Bld) [#/Vol] 0.1 10 3/uL 0.0-0.1 [facility] Basophils/100 WBC Auto (Bld) on 09-23-2024 Basophils/100 WBC (Bld) Automated basophil % 0.2-2.0 [facility] Basophils/100 WBC (Bld) 0.7 % 0.2-2.0 [facility] Eosinophils/100 WBC Auto (Bl d)on 09-23-2024 Eosinophils/100 WBC (Bld) Automated eosinophil % Low 0.9-7.0 [facility] Eosinophils/100 WBC (Bld) 0.2 % Low 0.9-7.0 [facility] Erythrocyte distribution wid th Auto (RBC) [Ratio]on 09-23-2024 Erythrocyte distribution width (RBC) [Ratio] Erythrocyte distribution width [Ratio] by Automated count 11.0-15.0 [facility] Erythrocyte distribution width (RBC) [Ratio] 11.0 % 11.0-15.0 [facility] Estimated glomerular filtrat ion rate (GFR) non- Americanon 09-23-2024 GFR/1.73 sq M.predicted among non-blacks MDRD (S/P/Bld) [Vol rate/Area] Estimated glomerular filtration rate (GFR) non- >=60 mL/min/1.73m 2 [facility] GFR/1.73 sq M.predicted among non-blacks MDRD (S/P/Bld) [Vol rate/Area] mL/min/{1.73_m2} >=60 mL/min/1.73m 2 [facility] Globulin Calc (S) [Mass/Vol] on 09-23-2024 Globulin (S) [Mass/Vol] Serum globulin measurement by calculation (mass/volume) [facility] Globulin (S) [Mass/Vol] 5.6 g/dL [facility] Hematocrit Auto (Bld) [Volum e fraction]on 09-23-2024 Hematocrit (Bld) [Volume fraction] Hematocrit [Volume Fraction] of Blood by Automated count Low 42.0-54.0 [facility] Hematocrit (Bld) [Volume fraction] 34.7 % Low 42.0-54.0 [facility] Hemoglobin [Mass/volume] in Bloodon 09-23-2024 Hemoglobin (Bld) [Mass/Vol] Hemoglobin [Mass/volume] in Blood Low 14.0-18.0 [facility] Hemoglobin (Bld) [Mass/Vol] 11.9 g/dL Low 14.0-18.0 [facility] Gavino 09-23-2024 L Specimen: [id number] Received: 09/23/24-1299 Status: LORENA Childs Num: [id number] Spec Type: Surgical Subm Dr: Mayra Spears,DPM, MS Tissues: A DIGIT AMPUTATION (RIGHT DISTAL PHALANX) B DIGIT AMPUTATION (RIGHT PROXIMAL PHALANX) Procedures: HE/3, Gross/Micro L4/2, Decalcification/2 Age/ Patient Sex Location Account Attending Physician Jassi Rodriguez 64/M LABELL [id number] Mayra Spears DPM, MS SPEC NUM: [id number] RECD: 09/23/24-1299 STATUS: LORENA COSTELLOSandeep NUM: [id number] SCOTT: 09/23/24-[address] [facility] [address]: Mayra Spears DPM, MS ENTERED: 09/23/24-[address]: Nehemias,Lab SPEC TYPE: Surgical DEPT: THANH MURRAY ENTERED BY: [id number] RECV BY: [id number] ORDERED: HE/3, Gross/Micro L4/2, Decalcification/2 ORDERED: HE/3, [...] cellulitis, dry gangrene right great toe Specimen: [id number] Received: 09/23/24-1299 Status: LORENA Childs Num: [id number] Spec Type: Surgical Subm Dr: Mayra Spears,AN, MS Tissues: A DIGIT AMPUTATION (RIGHT DISTAL PHALANX) B DIGIT AMPUTATION (RIGHT PROXIMAL PHALANX) Procedures: HE/3, Gross/Micro L4/2, Decalcification/2 Patient: Jassi Rodriguez SR [id number] (Continued) Specimen: [id number] Received: 09/23/24-1300 (Continued) Signed (signature on file) Mingo Mejia MD 09/26/24 1200 Specimen: [id number] Received: 09/23/24 Status: LORENA Childs Num: [id number] Spec Type: Surgical Subm Dr: Mayra Spears,DPM, MS Tissues: A DIGIT AMPUTATION (RIGHT DISTAL PHALANX) B DIGIT AMPUTATION (RIGHT PROXIMAL PHALANX) Procedures: HE/3, Gross/Micro L4/2, Decalcification/2 Patient: MichaelJassi SR [id number] (Continued) Specimen: [id number] Received: 09/23/24-1299 (Continued) Gross Description Part A [...] cm from the proximal skin margin. A electroplating sales representative section of the indurated area and underlying distal phalanx is submitted in A1 after decalcification with tangential cross-sections of the proximal skin margin submitted in A2. (2, , [id number] A) Part B is received in formalin [...] submitted in B1 after decalcification. (1, , [id number] B) Microscopic Description Microscopic examination is performed CPT Codes 24697p5 [id number] Specimen: [id number] Received: (more content not included)... Normal [facility] Laboratory - Chemistry and C hemistry - challengeon 09-23-2024 Albumin [Mass/Vol] 1.8 g/dL Low 3.4-5.0 [facility] ALP [Catalytic activity/Vol] 76 U/L 46-116 [facility] ALT [Catalytic activity/Vol] 15 U/L Low 16-63 [facility] AST [Catalytic activity/Vol] 22 U/L 15-37 [facility] Bilirubin [Mass/Vol] 0.3 mg/dL 0.2-1.0 [facility] Calcium [Mass/Vol] 9.0 mg/dL 8.5-10.1 [facility] Chloride [Moles/Vol] 103 mmol/L 98-107 [facility] CO2 [Moles/Vol] 26.0 mmol/L 21.0-32.0 [facility] Creatinine [Mass/Vol] 0.94 mg/dL 0.70-1.30 [facility] GFR/1.73 sq M.predicted MDRD (S/P/Bld) [Vol rate/Area] mL/min/{1.73_m2} >=60 mL/min/1.73m 2 [facility] Glucose [Mass/Vol] 124 mg/dL High 74-106 [facility] Potassium [Moles/Vol] 4.1 mmol/L 3.5-5.1 [facility] Protein [Mass/Vol] 7.4 g/dL 6.4-8.2 [facility] Sodium [Moles/Vol] 139 mmol/L 136-145 [facility] Urea nitrogen [Mass/Vol] 22.0 mg/dL High 7.0-18.0 [facility] Urea nitrogen/Creatinine [Mass ratio] 23.4 mg/mg [facility] Laboratory - Hematology and Cell countson 09-23-2024 Immature granulocytes/100 WBC (Bld) 0.3 % 0.0-0.5 [facility] Leukocytes [#/volume] correc markie for nucleated erythrocytes in Blood by Automated counon 09-23-2024 WBC corrected for nucl RBC Auto (Bld) [#/Vol] Leukocytes [#/volume] corrected for nucleated erythrocytes in Blood by Automated coun 4.0-11.0 [facility] WBC corrected for nucl RBC Auto (Bld) [#/Vol] 9.1 10 3/uL 4.0-11.0 [facility] Lymphocytes Auto (Bld) [#/Vo l]on 09-23-2024 Lymphocytes (Bld) [#/Vol] Lymphocytes [#/volume] in Blood by Automated count 1.2-3.8 [facility] Lymphocytes (Bld) [#/Vol] 1.6 10 3/uL 1.2-3.8 [facility] Lymphocytes/100 WBC Auto (Bl d)on 09-23-2024 Lymphocytes/100 WBC (Bld) Lymphocytes/100 leukocytes in Blood by Automated count Low 20.5-60.0 [facility] Lymphocytes/100 WBC (Bld) 17.6 % Low 20.5-60.0 [facility] MCH Auto (RBC) [Entitic mass ]on 09-23-2024 MCH (RBC) [Entitic mass] MCH [Entitic mass] by Automated count 25.9-34.0 [facility] MCH (RBC) [Entitic mass] 30.7 pg 25.9-34.0 [facility] MCHC Auto (RBC) [Mass/Vol]on 09-23-2024 MCHC (RBC) [Mass/Vol] MCHC [Mass/volume] by Automated count 29.9-35.2 [facility] MCHC (RBC) [Mass/Vol] 34.3 g/dL 29.9-35.2 [facility] MCV Auto (RBC) [Entitic vol] on 09-23-2024 MCV (RBC) [Entitic vol] MCV [Entitic volume] by Automated count 80.0-94.0 [facility] MCV (RBC) [Entitic vol] 89.7 fL 80.0-94.0 [facility] Monocytes Auto (Bld) [#/Vol] on 09-23-2024 Monocytes (Bld) [#/Vol] Automated blood monocyte count High 0.3-0.8 [facility] Monocytes (Bld) [#/Vol] 1.4 10 3/uL High 0.3-0.8 [facility] Monocytes/100 WBC Auto (Bld) on 09-23-2024 Monocytes/100 WBC (Bld) Automated monocyte % High 1.7-12.0 [facility] Monocytes/100 WBC (Bld) 15.6 % High 1.7-12.0 [facility] Neutrophils Auto (Bld) [#/Vo l]on 09-23-2024 Neutrophils (Bld) [#/Vol] Neutrophils [#/volume] in Blood by Automated count 1.4-6.5 [facility] Neutrophils (Bld) [#/Vol] 6.0 10 3/uL 1.4-6.5 [facility] Neutrophils/100 WBC Auto (Bl d)on 09-23-2024 Neutrophils/100 WBC (Bld) Automated neutrophil % 43.0-75.0 [facility] Neutrophils/100 WBC (Bld) 65.6 % 43.0-75.0 [facility] No Panel Informationon 09-23 C-Reactive Protein, Quantitative 3.19 mg/dL High <=0.50 [facility] Eosinophils # (Auto) 0.0 10 3/uL 0.0-0.7 [facility] Immature Granulocyte # (Auto) 0.03 10 3/uL 0.00-0.03 [facility] Platelet mean volume Auto (B ld) [Entitic vol]on 09-23-2024 Platelet mean volume (Bld) [Entitic vol] Platelet mean volume [Entitic volume] in Blood by Automated count 9.5-13.5 [facility] Platelet mean volume (Bld) [Entitic vol] 9.5 fL 9.5-13.5 [facility] Platelets Auto (Bld) [#/Vol] on 09-23-2024 Platelets (Bld) [#/Vol] Platelets [#/volume] in Blood by Automated count 150-450 [facility] Platelets (Bld) [#/Vol] 339 10 3/uL 150-450 [facility] RBC Auto (Bld) [#/Vol]on RBC (Bld) [#/Vol] Erythrocytes [#/volume] in Blood by Automated count Low 4.70-6.10 [facility] RBC (Bld) [#/Vol] 3.87 10 6/uL Low 4.70-6.10 [facility] Serum or plasma albumin/glob ulin mass ratioon 09-23-2024 Albumin/Globulin [Mass ratio] Serum or plasma albumin/globulin mass ratio [facility] Albumin/Globulin [Mass ratio] 0.3 {ratio} [facility] Serum or plasma anion gap de terminationon 09-23-2024 Anion gap [Moles/Vol] Serum or plasma anion gap determination [facility] Anion gap [Moles/Vol] 14.1 mmol/L [facility] Basophils Auto (Bld) [#/Vol] on 09-22-2024 Basophils (Bld) [#/Vol] Automated basophil count 0.0-0.1 [facility] Basophils (Bld) [#/Vol] 0.1 10 3/uL 0.0-0.1 [facility] Basophils/100 WBC Auto (Bld) on 09-22-2024 Basophils/100 WBC (Bld) Automated basophil % 0.2-2.0 [facility] Basophils/100 WBC (Bld) 0.6 % 0.2-2.0 [facility] Eosinophils/100 WBC Auto (Bl d)on 09-22-2024 Eosinophils/100 WBC (Bld) Automated eosinophil % Low 0.9-7.0 [facility] Eosinophils/100 WBC (Bld) 0.2 % Low 0.9-7.0 [facility] Erythrocyte distribution wid th Auto (RBC) [Ratio]on 09-22-2024 Erythrocyte distribution width (RBC) [Ratio] Erythrocyte distribution width [Ratio] by Automated count 11.0-15.0 [facility] Erythrocyte distribution width (RBC) [Ratio] 11.1 % 11.0-15.0 [facility] Estimated glomerular filtrat ion rate (GFR) non- Americanon 09-22-2024 GFR/1.73 sq M.predicted among non-blacks MDRD (S/P/Bld) [Vol rate/Area] Estimated glomerular filtration rate (GFR) non- >=60 mL/min/1.73m 2 [facility] GFR/1.73 sq M.predicted among non-blacks MDRD (S/P/Bld) [Vol rate/Area] mL/min/{1.73_m2} >=60 mL/min/1.73m 2 [facility] Globulin Calc (S) [Mass/Vol] on 09-22-2024 Globulin (S) [Mass/Vol] Serum globulin measurement by calculation (mass/volume) [facility] Globulin (S) [Mass/Vol] 5.4 g/dL [facility] Hematocrit Auto (Bld) [Volum e fraction]on 09-22-2024 Hematocrit (Bld) [Volume fraction] Hematocrit [Volume Fraction] of Blood by Automated count Low 42.0-54.0 [facility] Hematocrit (Bld) [Volume fraction] 33.8 % Low 42.0-54.0 [facility] Hemoglobin [Mass/volume] in Bloodon 09-22-2024 Hemoglobin (Bld) [Mass/Vol] Hemoglobin [Mass/volume] in Blood Low 14.0-18.0 [facility] Hemoglobin (Bld) [Mass/Vol] 11.8 g/dL Low 14.0-18.0 [facility] Laboratory - Chemistry and C hemistry - challengeon 09-22-2024 Albumin [Mass/Vol] 1.9 g/dL Low 3.4-5.0 [facility] ALP [Catalytic activity/Vol] 74 U/L 46-116 [facility] ALT [Catalytic activity/Vol] 15 U/L Low 16-63 [facility] AST [Catalytic activity/Vol] 20 U/L 15-37 [facility] Bilirubin [Mass/Vol] 0.4 mg/dL 0.2-1.0 [facility] Calcium [Mass/Vol] 8.7 mg/dL 8.5-10.1 [facility] Chloride [Moles/Vol] 102 mmol/L 98-107 [facility] CO2 [Moles/Vol] 23.7 mmol/L 21.0-32.0 [facility] Creatinine [Mass/Vol] 0.99 mg/dL 0.70-1.30 [facility] GFR/1.73 sq M.predicted MDRD (S/P/Bld) [Vol rate/Area] mL/min/{1.73_m2} >=60 mL/min/1.73m 2 [facility] Glucose [Mass/Vol] 87 mg/dL 74-106 [facility] Potassium [Moles/Vol] 4.4 mmol/L 3.5-5.1 [facility] Protein [Mass/Vol] 7.3 g/dL 6.4-8.2 [facility] Sodium [Moles/Vol] 137 mmol/L 136-145 [facility] Urea nitrogen [Mass/Vol] 21.0 mg/dL High 7.0-18.0 [facility] Urea nitrogen/Creatinine [Mass ratio] 21.2 mg/mg [facility] Laboratory - Hematology and Cell countson 09-22-2024 Immature granulocytes/100 WBC (Bld) 0.4 % 0.0-0.5 [facility] Leukocytes [#/volume] correc markie for nucleated erythrocytes in Blood by Automated counon 09-22-2024 WBC corrected for nucl RBC Auto (Bld) [#/Vol] Leukocytes [#/volume] corrected for nucleated erythrocytes in Blood by Automated coun 4.0-11.0 [facility] WBC corrected for nucl RBC Auto (Bld) [#/Vol] 9.6 10 3/uL 4.0-11.0 [facility] Lymphocytes Auto (Bld) [#/Vo l]on 09-22-2024 Lymphocytes (Bld) [#/Vol] Lymphocytes [#/volume] in Blood by Automated count 1.2-3.8 [facility] Lymphocytes (Bld) [#/Vol] 1.7 10 3/uL 1.2-3.8 [facility] Lymphocytes/100 WBC Auto (Bl d)on 09-22-2024 Lymphocytes/100 WBC (Bld) Lymphocytes/100 leukocytes in Blood by Automated count Low 20.5-60.0 [facility] Lymphocytes/100 WBC (Bld) 17.7 % Low 20.5-60.0 [facility] MCH Auto (RBC) [Entitic mass ]on 09-22-2024 MCH (RBC) [Entitic mass] MCH [Entitic mass] by Automated count 25.9-34.0 [facility] MCH (RBC) [Entitic mass] 31.3 pg 25.9-34.0 [facility] MCHC Auto (RBC) [Mass/Vol]on 09-22-2024 MCHC (RBC) [Mass/Vol] MCHC [Mass/volume] by Automated count 29.9-35.2 [facility] MCHC (RBC) [Mass/Vol] 34.9 g/dL 29.9-35.2 [facility] MCV Auto (RBC) [Entitic vol] on 09-22-2024 MCV (RBC) [Entitic vol] MCV [Entitic volume] by Automated count 80.0-94.0 [facility] MCV (RBC) [Entitic vol] 89.7 fL 80.0-94.0 [facility] Monocytes Auto (Bld) [#/Vol] on 09-22-2024 Monocytes (Bld) [#/Vol] Automated blood monocyte count High 0.3-0.8 [facility] Monocytes (Bld) [#/Vol] 1.2 10 3/uL High 0.3-0.8 [facility] Monocytes/100 WBC Auto (Bld) on 09-22-2024 Monocytes/100 WBC (Bld) Automated monocyte % High 1.7-12.0 [facility] Monocytes/100 WBC (Bld) 12.8 % High 1.7-12.0 [facility] Neutrophils Auto (Bld) [#/Vo l]on 09-22-2024 Neutrophils (Bld) [#/Vol] Neutrophils [#/volume] in Blood by Automated count High 1.4-6.5 [facility] Neutrophils (Bld) [#/Vol] 6.6 10 3/uL High 1.4-6.5 [facility] Neutrophils/100 WBC Auto (Bl d)on 09-22-2024 Neutrophils/100 WBC (Bld) Automated neutrophil % 43.0-75.0 [facility] Neutrophils/100 WBC (Bld) 68.3 % 43.0-75.0 [facility] No Panel Informationon 09-22 Vancomycin Level Trough 18.3 ug/mL 5.0-20.0 [facility] C-Reactive Protein, Quantitative 4.29 mg/dL High <=0.50 [facility] Eosinophils # (Auto) 0.0 10 3/uL 0.0-0.7 [facility] Immature Granulocyte # (Auto) 0.04 10 3/uL High 0.00-0.03 [facility] Platelet mean volume Auto (B ld) [Entitic vol]on 09-22-2024 Platelet mean volume (Bld) [Entitic vol] Platelet mean volume [Entitic volume] in Blood by Automated count 9.5-13.5 [facility] Platelet mean volume (Bld) [Entitic vol] 9.6 fL 9.5-13.5 [facility] Platelets Auto (Bld) [#/Vol] on 09-22-2024 Platelets (Bld) [#/Vol] Platelets [#/volume] in Blood by Automated count 150-450 [facility] Platelets (Bld) [#/Vol] 334 10 3/uL 150-450 [facility] RBC Auto (Bld) [#/Vol]on RBC (Bld) [#/Vol] Erythrocytes [#/volume] in Blood by Automated count Low 4.70-6.10 [facility] RBC (Bld) [#/Vol] 3.77 10 6/uL Low 4.70-6.10 [facility] Serum or plasma albumin/glob ulin mass ratioon 09-22-2024 Albumin/Globulin [Mass ratio] Serum or plasma albumin/globulin mass ratio [facility] Albumin/Globulin [Mass ratio] 0.4 {ratio} [facility] Serum or plasma anion gap de terminationon 09-22-2024 Anion gap [Moles/Vol] Serum or plasma anion gap determination [facility] Anion gap [Moles/Vol] 15.7 mmol/L [facility] Basophils Auto (Bld) [#/Vol] on 09-21-2024 Basophils (Bld) [#/Vol] Automated basophil count 0.0-0.1 [facility] Basophils (Bld) [#/Vol] 0.1 10 3/uL 0.0-0.1 [facility] Basophils/100 WBC Auto (Bld) on 09-21-2024 Basophils/100 WBC (Bld) Automated basophil % 0.2-2.0 [facility] Basophils/100 WBC (Bld) 0.6 % 0.2-2.0 [facility] Eosinophils/100 WBC Auto (Bl d)on 09-21-2024 Eosinophils/100 WBC (Bld) Automated eosinophil % Low 0.9-7.0 [facility] Eosinophils/100 WBC (Bld) 0.2 % Low 0.9-7.0 [facility] Erythrocyte distribution wid th Auto (RBC) [Ratio]on 09-21-2024 Erythrocyte distribution width (RBC) [Ratio] Erythrocyte distribution width [Ratio] by Automated count 11.0-15.0 [facility] Erythrocyte distribution width (RBC) [Ratio] 11.3 % 11.0-15.0 [facility] Estimated glomerular filtrat ion rate (GFR) non- Americanon 09-21-2024 GFR/1.73 sq M.predicted among non-blacks MDRD (S/P/Bld) [Vol rate/Area] Estimated glomerular filtration rate (GFR) non- >=60 mL/min/1.73m 2 [facility] GFR/1.73 sq M.predicted among non-blacks MDRD (S/P/Bld) [Vol rate/Area] mL/min/{1.73_m2} >=60 mL/min/1.73m 2 [facility] Globulin Calc (S) [Mass/Vol] on 09-21-2024 Globulin (S) [Mass/Vol] Serum globulin measurement by calculation (mass/volume) [facility] Globulin (S) [Mass/Vol] 5.6 g/dL [facility] Hematocrit Auto (Bld) [Volum e fraction]on 09-21-2024 Hematocrit (Bld) [Volume fraction] Hematocrit [Volume Fraction] of Blood by Automated count Low 42.0-54.0 [facility] Hematocrit (Bld) [Volume fraction] 34.2 % Low 42.0-54.0 [facility] Hemoglobin [Mass/volume] in Bloodon 09-21-2024 Hemoglobin (Bld) [Mass/Vol] Hemoglobin [Mass/volume] in Blood Low 14.0-18.0 [facility] Hemoglobin (Bld) [Mass/Vol] 11.6 g/dL Low 14.0-18.0 [facility] Laboratory - Chemistry and C hemistry - challengeon 09-21-2024 Albumin [Mass/Vol] 1.9 g/dL Low 3.4-5.0 [facility] ALP [Catalytic activity/Vol] 79 U/L 46-116 [facility] ALT [Catalytic activity/Vol] 16 U/L 16-63 [facility] AST [Catalytic activity/Vol] 21 U/L 15-37 [facility] Bilirubin [Mass/Vol] 0.5 mg/dL 0.2-1.0 [facility] Calcium [Mass/Vol] 8.8 mg/dL 8.5-10.1 [facility] Chloride [Moles/Vol] 103 mmol/L 98-107 [facility] CO2 [Moles/Vol] 24.5 mmol/L 21.0-32.0 [facility] Creatinine [Mass/Vol] 1.18 mg/dL 0.70-1.30 [facility] GFR/1.73 sq M.predicted MDRD (S/P/Bld) [Vol rate/Area] mL/min/{1.73_m2} >=60 mL/min/1.73m 2 [facility] Glucose [Mass/Vol] 106 mg/dL 74-106 [facility] Potassium [Moles/Vol] 4.6 mmol/L 3.5-5.1 [facility] Protein [Mass/Vol] 7.5 g/dL 6.4-8.2 [facility] Sodium [Moles/Vol] 137 mmol/L 136-145 [facility] Urea nitrogen [Mass/Vol] 24.0 mg/dL High 7.0-18.0 [facility] Urea nitrogen/Creatinine [Mass ratio] 20.3 mg/mg [facility] Laboratory - Hematology and Cell countson 09-21-2024 Immature granulocytes/100 WBC (Bld) 0.5 % 0.0-0.5 [facility] Leukocytes [#/volume] correc markie for nucleated erythrocytes in Blood by Automated counon 09-21-2024 WBC corrected for nucl RBC Auto (Bld) [#/Vol] Leukocytes [#/volume] corrected for nucleated erythrocytes in Blood by Automated coun High 4.0-11.0 [facility] WBC corrected for nucl RBC Auto (Bld) [#/Vol] 11.9 10 3/uL High 4.0-11.0 [facility] Lymphocytes Auto (Bld) [#/Vo l]on 09-21-2024 Lymphocytes (Bld) [#/Vol] Lymphocytes [#/volume] in Blood by Automated count 1.2-3.8 [facility] Lymphocytes (Bld) [#/Vol] 1.9 10 3/uL 1.2-3.8 [facility] Lymphocytes/100 WBC Auto (Bl d)on 09-21-2024 Lymphocytes/100 WBC (Bld) Lymphocytes/100 leukocytes in Blood by Automated count Low 20.5-60.0 [facility] Lymphocytes/100 WBC (Bld) 15.9 % Low 20.5-60.0 [facility] MCH Auto (RBC) [Entitic mass ]on 09-21-2024 MCH (RBC) [Entitic mass] MCH [Entitic mass] by Automated count 25.9-34.0 [facility] MCH (RBC) [Entitic mass] 30.8 pg 25.9-34.0 [facility] MCHC Auto (RBC) [Mass/Vol]on 09-21-2024 MCHC (RBC) [Mass/Vol] MCHC [Mass/volume] by Automated count 29.9-35.2 [facility] MCHC (RBC) [Mass/Vol] 33.9 g/dL 29.9-35.2 [facility] MCV Auto (RBC) [Entitic vol] on 09-21-2024 MCV (RBC) [Entitic vol] MCV [Entitic volume] by Automated count 80.0-94.0 [facility] MCV (RBC) [Entitic vol] 90.7 fL 80.0-94.0 [facility] Monocytes Auto (Bld) [#/Vol] on 09-21-2024 Monocytes (Bld) [#/Vol] Automated blood monocyte count High 0.3-0.8 [facility] Monocytes (Bld) [#/Vol] 1.5 10 3/uL High 0.3-0.8 [facility] Monocytes/100 WBC Auto (Bld) on 09-21-2024 Monocytes/100 WBC (Bld) Automated monocyte % High 1.7-12.0 [facility] Monocytes/100 WBC (Bld) 12.6 % High 1.7-12.0 [facility] Neutrophils Auto (Bld) [#/Vo l]on 09-21-2024 Neutrophils (Bld) [#/Vol] Neutrophils [#/volume] in Blood by Automated count High 1.4-6.5 [facility] Neutrophils (Bld) [#/Vol] 8.4 10 3/uL High 1.4-6.5 [facility] Neutrophils/100 WBC Auto (Bl d)on 09-21-2024 Neutrophils/100 WBC (Bld) Automated neutrophil % 43.0-75.0 [facility] Neutrophils/100 WBC (Bld) 70.2 % 43.0-75.0 [facility] No Panel Informationon 09-21 Eosinophils # (Auto) 0.0 10 3/uL 0.0-0.7 [facility] Immature Granulocyte # (Auto) 0.06 10 3/uL High 0.00-0.03 [facility] Platelet mean volume Auto (B ld) [Entitic vol]on 09-21-2024 Platelet mean volume (Bld) [Entitic vol] Platelet mean volume [Entitic volume] in Blood by Automated count 9.5-13.5 [facility] Platelet mean volume (Bld) [Entitic vol] 9.7 fL 9.5-13.5 [facility] Platelets Auto (Bld) [#/Vol] on 09-21-2024 Platelets (Bld) [#/Vol] Platelets [#/volume] in Blood by Automated count 150-450 [facility] Platelets (Bld) [#/Vol] 314 10 3/uL 150-450 [facility] RBC Auto (Bld) [#/Vol]on RBC (Bld) [#/Vol] Erythrocytes [#/volume] in Blood by Automated count Low 4.70-6.10 [facility] RBC (Bld) [#/Vol] 3.77 10 6/uL Low 4.70-6.10 [facility] Serum or plasma albumin/glob ulin mass ratioon 09-21-2024 Albumin/Globulin [Mass ratio] Serum or plasma albumin/globulin mass ratio [facility] Albumin/Globulin [Mass ratio] 0.3 {ratio} [facility] Serum or plasma anion gap de terminationon 09-21-2024 Anion gap [Moles/Vol] Serum or plasma anion gap determination [facility] Anion gap [Moles/Vol] 14.1 mmol/L [facility] Basophils Auto (Bld) [#/Vol] on 09-20-2024 Basophils (Bld) [#/Vol] Automated basophil count 0.0-0.1 [facility] Basophils (Bld) [#/Vol] 0.1 10 3/uL 0.0-0.1 [facility] Basophils/100 WBC Auto (Bld) on 09-20-2024 Basophils/100 WBC (Bld) Automated basophil % 0.2-2.0 [facility] Basophils/100 WBC (Bld) 0.8 % 0.2-2.0 [facility] Eosinophils/100 WBC Auto (Bl d)on 09-20-2024 Eosinophils/100 WBC (Bld) Automated eosinophil % Low 0.9-7.0 [facility] Eosinophils/100 WBC (Bld) 0.0 % Low 0.9-7.0 [facility] Erythrocyte distribution wid th Auto (RBC) [Ratio]on 09-20-2024 Erythrocyte distribution width (RBC) [Ratio] Erythrocyte distribution width [Ratio] by Automated count 11.0-15.0 [facility] Erythrocyte distribution width (RBC) [Ratio] 11.2 % 11.0-15.0 [facility] Estimated glomerular filtrat ion rate (GFR) non- Americanon 09-20-2024 GFR/1.73 sq M.predicted among non-blacks MDRD (S/P/Bld) [Vol rate/Area] Estimated glomerular filtration rate (GFR) non- Low >=60 mL/min/1.73m 2 [facility] GFR/1.73 sq M.predicted among non-blacks MDRD (S/P/Bld) [Vol rate/Area] 52 mL/min/{1.73_m2} Low >=60 mL/min/1.73m 2 [facility] Globulin Calc (S) [Mass/Vol] on 09-20-2024 Globulin (S) [Mass/Vol] Serum globulin measurement by calculation (mass/volume) [facility] Globulin (S) [Mass/Vol] 6.6 g/dL [facility] Hematocrit Auto (Bld) [Volum e fraction]on 09-20-2024 Hematocrit (Bld) [Volume fraction] Hematocrit [Volume Fraction] of Blood by Automated count Low 42.0-54.0 [facility] Hematocrit (Bld) [Volume fraction] 41.1 % Low 42.0-54.0 [facility] Hemoglobin [Mass/volume] in Bloodon 09-20-2024 Hemoglobin (Bld) [Mass/Vol] Hemoglobin [Mass/volume] in Blood 14.0-18.0 [facility] Hemoglobin (Bld) [Mass/Vol] 14.0 g/dL 14.0-18.0 [facility] Laboratory - Chemistry and C hemistry - challengeon 09-20-2024 Albumin [Mass/Vol] 2.4 g/dL Low 3.4-5.0 [facility] ALP [Catalytic activity/Vol] 101 U/L 46-116 [facility] ALT [Catalytic activity/Vol] 25 U/L 16-63 [facility] AST [Catalytic activity/Vol] 28 U/L 15-37 [facility] Bilirubin [Mass/Vol] 0.7 mg/dL 0.2-1.0 [facility] Calcium [Mass/Vol] 9.6 mg/dL 8.5-10.1 [facility] Chloride [Moles/Vol] 99 mmol/L 98-107 [facility] CO2 [Moles/Vol] 28.1 mmol/L 21.0-32.0 [facility] Creatinine [Mass/Vol] 1.37 mg/dL High 0.70-1.30 [facility] GFR/1.73 sq M.predicted MDRD (S/P/Bld) [Vol rate/Area] mL/min/{1.73_m2} >=60 mL/min/1.73m 2 [facility] Glucose [Mass/Vol] 130 mg/dL High 74-106 [facility] Potassium [Moles/Vol] 4.5 mmol/L 3.5-5.1 [facility] Protein [Mass/Vol] 9.0 g/dL High 6.4-8.2 [facility] Sodium [Moles/Vol] 132 mmol/L Low 136-145 [facility] Urea nitrogen [Mass/Vol] 18.0 mg/dL 7.0-18.0 [facility] Urea nitrogen/Creatinine [Mass ratio] 13.1 mg/mg [facility] Laboratory - Hematology and Cell countson 09-20-2024 ESR (Bld) [Velocity] mm/h High <=20 [facility] Immature granulocytes/100 WBC (Bld) 0.3 % 0.0-0.5 [facility] Leukocytes [#/volume] correc markie for nucleated erythrocytes in Blood by Automated counon 09-20-2024 WBC corrected for nucl RBC Auto (Bld) [#/Vol] Leukocytes [#/volume] corrected for nucleated erythrocytes in Blood by Automated coun High 4.0-11.0 [facility] WBC corrected for nucl RBC Auto (Bld) [#/Vol] 11.9 10 3/uL High 4.0-11.0 [facility] Lymphocytes Auto (Bld) [#/Vo l]on 09-20-2024 Lymphocytes (Bld) [#/Vol] Lymphocytes [#/volume] in Blood by Automated count 1.2-3.8 [facility] Lymphocytes (Bld) [#/Vol] 1.9 10 3/uL 1.2-3.8 [facility] Lymphocytes/100 WBC Auto (Bl d)on 09-20-2024 Lymphocytes/100 WBC (Bld) Lymphocytes/100 leukocytes in Blood by Automated count Low 20.5-60.0 [facility] Lymphocytes/100 WBC (Bld) 15.9 % Low 20.5-60.0 [facility] MCH Auto (RBC) [Entitic mass ]on 09-20-2024 MCH (RBC) [Entitic mass] MCH [Entitic mass] by Automated count 25.9-34.0 [facility] MCH (RBC) [Entitic mass] 30.8 pg 25.9-34.0 [facility] MCHC Auto (RBC) [Mass/Vol]on 09-20-2024 MCHC (RBC) [Mass/Vol] MCHC [Mass/volume] by Automated count 29.9-35.2 [facility] MCHC (RBC) [Mass/Vol] 34.1 g/dL 29.9-35.2 [facility] MCV Auto (RBC) [Entitic vol] on 09-20-2024 MCV (RBC) [Entitic vol] MCV [Entitic volume] by Automated count 80.0-94.0 [facility] MCV (RBC) [Entitic vol] 90.5 fL 80.0-94.0 [facility] Monocytes Auto (Bld) [#/Vol] on 09-20-2024 Monocytes (Bld) [#/Vol] Automated blood monocyte count High 0.3-0.8 [facility] Monocytes (Bld) [#/Vol] 1.4 10 3/uL High 0.3-0.8 [facility] Monocytes/100 WBC Auto (Bld) on 09-20-2024 Monocytes/100 WBC (Bld) Automated monocyte % High 1.7-12.0 [facility] Monocytes/100 WBC (Bld) 12.1 % High 1.7-12.0 [facility] Neutrophils Auto (Bld) [#/Vo l]on 09-20-2024 Neutrophils (Bld) [#/Vol] Neutrophils [#/volume] in Blood by Automated count High 1.4-6.5 [facility] Neutrophils (Bld) [#/Vol] 8.5 10 3/uL High 1.4-6.5 [facility] Neutrophils/100 WBC Auto (Bl d)on 09-20-2024 Neutrophils/100 WBC (Bld) Automated neutrophil % 43.0-75.0 [facility] Neutrophils/100 WBC (Bld) 70.9 % 43.0-75.0 [facility] No Panel Informationon 09-20 C-Reactive Protein, Quantitative 6.32 mg/dL High <=0.50 [facility] Eosinophils # (Auto) 0.0 10 3/uL 0.0-0.7 [facility] Immature Granulocyte # (Auto) 0.04 10 3/uL High 0.00-0.03 [facility] Platelet mean volume Auto (B ld) [Entitic vol]on 09-20-2024 Platelet mean volume (Bld) [Entitic vol] Platelet mean volume [Entitic volume] in Blood by Automated count 9.5-13.5 [facility] Platelet mean volume (Bld) [Entitic vol] 9.5 fL 9.5-13.5 [facility] Platelets Auto (Bld) [#/Vol] on 09-20-2024 Platelets (Bld) [#/Vol] Platelets [#/volume] in Blood by Automated count 150-450 [facility] Platelets (Bld) [#/Vol] 401 10 3/uL 150-450 [facility] RBC Auto (Bld) [#/Vol]on RBC (Bld) [#/Vol] Erythrocytes [#/volume] in Blood by Automated count Low 4.70-6.10 [facility] RBC (Bld) [#/Vol] 4.54 10 6/uL Low 4.70-6.10 [facility] Serum or plasma albumin/glob ulin mass ratioon 09-20-2024 Albumin/Globulin [Mass ratio] Serum or plasma albumin/globulin mass ratio [facility] Albumin/Globulin [Mass ratio] 0.4 {ratio} [facility] Serum or plasma anion gap de terminationon 09-20-2024 Anion gap [Moles/Vol] Serum or plasma anion gap determination [facility] Anion gap [Moles/Vol] 9.4 mmol/L [facility] Creatinine [Mass/volume] in UrineOrdered By: Yolette Pierre on 06-18-2024 Creatinine (U) [Mass/Vol] Creatinine [Mass/volume] in Urine [facility] Comment on above: No reference range e stablished MicroAlb Creat Ratio,Uon Albumin DL <= 20 mg/L (U) [Mass/Vol] mg/dL High 0.0-1.8 [facility] Comment on above: Performed By: #### U RMACRERAT #### [address] Creatinine, Urine (Random) 123.00 mg/dL Normal [facility] Comment on above: Result Comment: No r eference range established Performed By: #### U RMACRERAT #### [facility] [address] Microalbumin/Creatinin e Ratio Not performed Normal 0.0-30.0 [facility] Comment on above: Result Comment: PERF ORMED BY: [facility] [address] [place] [address] PATHOLOGIST GROUP TESTER JAMIL BONILLA M.D. Performed By: #### U RMACRERAT #### [facility] [address] Microalbumin [Mass/volume] i n UrineOrdered By: Yolette Pierre on 06-18-2024 Albumin DL <= 20 mg/L (U) [Mass/Vol] Microalbumin [Mass/volume] in Urine High 0.0-1.8 [facility] Urine microalbumin/creatinin e mass ratioOrdered By: Yolette Pierre on 06-18-2024 Albumin/Creatinine DL <= 20 mg/L (U) [Mass ratio] Urine microalbumin/creatin ine mass ratio [facility] Comment on above: Test not performed HbA1c HPLC (Bld) [Mass fract ion]on 04-23-2024 HbA1c (Bld) [Mass fraction] Hemoglobin A1c/Hemoglobin.total in Blood by HPLC [facility] No Panel Informationon 04-23 Bedside Glucose 110 [facility] CT ABDOMEN WO CONTon 024 CT [...] Camarena MD on 04/11/2024 11:15 AM Normal [facility] CT CHEST WO CONTon CT CHEST [...] Guido MD on 04/11/2024 11:15 AM Normal [facility] HbA1c HPLC (Bld) [Mass fract ion]on 09-10-2023 HbA1c (Bld) [Mass fraction] 6.4 % [facility] No Panel Informationon 09-09 Bedside Glucose 126 [facility] A1C HEMOGLOBINon 06-05-2023 HbA1c (Bld) [Mass fraction] 6.9 % [employer] Other Glucose - [facility]INGER [facility]on Glucose [Mass/Vol] 132 mg/dL [employer] Other HbA1c (Bld) [Mass fraction]o n 06-05-2023 A1C HEMOGLOBIN [employer] Other A1C HEMOGLOBINon 02-27-2023 HbA1c (Bld) [Mass fraction] 6.4 % [employer] Other Creatinine [Mass/volume] in UrineOrdered By: Yolette Pierre on 02-27-2023 Creatinine (U) [Mass/Vol] 89.0 mg/dL 14.0-26.0 [facility] Glucose - FINGER [employer]on Glucose [Mass/Vol] 132 mg/dL [employer] Other HbA1c (Bld) [Mass fraction]o n 02-27-2023 A1C HEMOGLOBIN [employer] Other [employer] Creat Ratio,Uon Creatinine (U) [Mass/Vol] 89.0591532 mg/dL High 14.0-26.0 mg/dL [employer] Other [employer] Creat Ratio,UOrdere d By: Yolette Pierre on 02-27-2023 Albumin DL <= 20 mg/L (U) [Mass/Vol] mg/dL 0.0-1.8 [facility] Albumin/Creatinine DL <= 20 mg/L (U) [Mass ratio] TNP [facility] Comment on above: Test not performed Glucose - [facility]ING[employer]on Glucose [Mass/Vol] 160 mg/dL [place] [employer] Other A1C HEMOGLOBINon 10-03-2022 HbA1c (Bld) [Mass fraction] 7.0 % [place] [employer] Other Glucose - [facility] [employer] Glucose [Mass/Vol] 88 mg/dL [employer] Other HbA1c (Bld) [Mass fraction]o n 10-03-2022 A1C HEMOGLOBIN [employer] Other Glucose - [facility] Glucose [Mass/Vol] 137 mg/dL [employer] Other A1C HEMOGLOBINon 05-05-2022 HbA1c (Bld) [Mass fraction] 7.5 % [employer] Other Glucose - FINGER STICKon Glucose [Mass/Vol] 199 mg/dL [employer] Other HbA1c (Bld) [Mass fraction]o n 05-05-2022 A1C HEMOGLOBIN [employer] Other A1C HEMOGLOBINon 02-03-2022 HbA1c (Bld) [Mass fraction] 7.7 % [employer] Other Glucose - FINGER STICKon Glucose - FINGER STICK No rt [employer] Other A1C HEMOGLOBINon 11-01-2021 HbA1c (Bld) [Mass fraction] 8.1 % [employer] Other Glucose - FINGER STICKon Glucose [Mass/Vol] 232 mg/dL [employer] Other HbA1c (Bld) [Mass fraction]o n 11-01-2021 A1C HEMOGLOBIN [employer] Other A1C HEMOGLOBINon 07-20-2021 HbA1c (Bld) [Mass fraction] 8.0 % [employer] Other Glucose - FINGER STICKon Glucose [Mass/Vol] 159 mg/dL [employer] Other HbA1c (Bld) [Mass fraction]o n 07-20-2021 A1C HEMOGLOBIN [facility] Other ACETONE SERUMon 04-08-2020 ACETONE SMALL Normal NEGATIVE [facility] Comment on above: Performed By: #### A CETON ####[facility] [address] [place], [place] [address]Weqwpu Brii BNPon 04-08-2020 Natriuretic peptide B (Bld) [Mass/Vol] 72.0 pg/mL Normal <=900.0 [facility] Comment on above: Performed By: #### C MP, TSH, TROP, BNP #### [facility] [address] [place], [place] [address] Kisha Brii CBC AUTO DIFFon 04-08-2020 Basophils (Bld) [#/Vol] 0.0 103/ul Normal 0.0-0.1 [facility] Comment on above: Performed By: #### C BC #### [facility] [address] [place], [place] [address] Kisha Brii Basophils/100 WBC (Bld) 0.4 % Normal 0.2-2.0 [facility] Comment on above: Performed By: #### C BC #### [facility] [address] [place], [place] [address] Kisha Brii Eosinophils (Bld) [#/Vol] 0.0 103/ul Normal 0.0-0.7 [facility] Comment on above: Performed By: #### C BC #### [facility] [address] [place], [place] [address] Kisha Brii Eosinophils/100 WBC (Bld) 0.0 % Critically low 0.9-7.0 [facility] Comment on above: Performed By: #### C BC #### [facility] [address] [place], [place] [id number] Kisha Brii Erythrocyte distribution width (RBC) [Ratio] 13.3 % Normal 11.0-15.0 [facility] Comment on above: Performed By: #### C BC #### [facility] [address] [place], [place] [id number] Kisha Brii Hematocrit (Bld) [Volume fraction] 45.3 % Normal 42.0-54.0 [facility] Comment on above: Performed By: #### C BC #### [facility] [address] [place], [place] [id number] Kisha Brii Hemoglobin (Bld) [Mass/Vol] 15.9 g/dL Normal 14.0-18.0 [facility] Comment on above: Performed By: #### C BC #### [facility] [address] [place] [address] Kisha Brii IG # 0.03 10e3/ul Normal 0.00-0.03 [facility] Comment on above: Performed By: #### C BC #### [facility] [address] [place] [address] Kisha Brii IG % 0.6 % Critically high 0.0-0.5 [facility] Comment on above: Performed By: #### C BC #### [facility] [address] [place], [place] [id number] Kisha Brii Lymphocytes (Bld) [#/Vol] 1.8 103/ul Normal 1.2-3.8 [facility] Comment on above: Performed By: #### C BC #### [facility] [address] [place], [place] [id number] Kisha Brii Lymphocytes/100 WBC (Bld) 37.3 % Normal 20.5-60.0 [facility] Comment on above: Performed By: #### C BC #### [facility] [address] [place], [place] [id number] Kisha Brii MANUAL DIFF REQ NO Normal [facility] Comment on above: Performed By: #### C BC #### [facility] [address] [place], [place] [id number] Kisha Brii MCH (RBC) [Entitic mass] 31.4 pg Normal 25.9-34.0 [facility] Comment on above: Performed By: #### C BC #### [facility] [address] [place] [id number] Kisha Teresa MCHC (RBC) [Mass/Vol] 35.1 g/dL Normal 29.9-35.2 [facility] Comment on above: Performed By: #### C BC #### [facility] [address] [place], [place] [address] Kishaunruly Teresa MCV (RBC) [Entitic vol] 89.3 fL Normal 80.0-94.0 [facility] Comment on above: Performed By: #### C BC #### [facility] [address] [place] [id number] Kisha Brii Monocytes (Bld) [#/Vol] 0.7 103/ul Normal 0.3-0.8 [facility] Comment on above: Performed By: #### C BC #### [facility] [address] [place] [address] Kisha Teresa Monocytes/100 WBC (Bld) 14.5 % Critically high 1.7-12.0 [facility] Comment on above: Performed By: #### C BC #### [facility] [address] [place] [address] Kisha Brii Neutrophils (Bld) [#/Vol] 2.3 103/ul Normal 1.4-6.5 [facility] Comment on above: Performed By: #### C BC #### [facility] [address] [place] [address] Kisha Brii Neutrophils/100 WBC (Bld) 47.2 % Normal 43.0-75.0 [facility] Comment on above: Performed By: #### C BC #### [facility] [address] [place] [address] Kishaunruly Teresa Platelet mean volume (Bld) [Entitic vol] 11.7 fL Normal 9.5-13.5 [facility] Comment on above: Performed By: #### C BC #### [facility] [address] [place], [place] [address] Kisha Teresa Platelets (Bld) [#/Vol] 157 103/ul Normal 150-450 [facility] Comment on above: Performed By: #### C BC #### [facility] [address] [place], [place] [address] Kisha Teresa RBC (Bld) [#/Vol] 5.07 106/ul Normal 4.70-6.10 [facility] Comment on above: Performed By: #### C BC #### [facility] [address] [place], [place] [address] Kisha Teresa WBC (Bld) [#/Vol] 4.9 103/ul Normal 4.0-11.0 [facility] Comment on above: Performed By: #### C BC #### [facility] [address] [place], [place] [address] Kisha Teresa CTA CHEST WO W CONon [...] by: NORY WAN Date: 2020-04-08 12:41 Normal [facility] D-DIMERon 04-08-2020 D-DIMER COMMENTS SEE BELOW Normal [facility] Comment on above: Result Comment: Incr [...] Performed By: #### D DIM, PTT, PT ####[facility] [id number] [place] [address]Gerken Brii Fibrin D-dimer FEU IA (Bld) [Mass/Vol] 1.16 ug/mL Critically high 0.19-0.50 [facility] Comment on above: Result Comment: test repeated critcal value verified Performed By: #### D DIM, PTT, PT ####[facility] [id number] [place] [address]Kisha Teresa PH VENOUS BLOODon 04-08-2020 PCO2 VENOUS 46.4 mmHg Normal 40.0-52.0 [facility] Comment on above: Performed By: #### P HVEN #### [facility] [address] [place] [address] Kishaunruly Costelloen pH VENOUS 7.37 Normal 7.33-7.43 [facility] Comment on above: Performed By: #### P HVEN #### [facility] [address] [place] [address] Kisha Teresa PROF 14(COMP METB)on 020 Albumin [Mass/Vol] 2.4 g/dL Critically low 3.5-5.0 [facility] Comment on above: Performed By: #### C MP, TSH, TROP, BNP #### [facility] [address] [place] [address] Kisha Teresa Albumin/Globulin [Mass ratio] 0.4 {ratio} Normal [facility] Comment on above: Performed By: #### C MP, TSH, TROP, BNP #### [facility] [address] [place] [address] Kisha Brii ALP [Catalytic activity/Vol] 68 U/L Normal 38-126 [facility] Comment on above: Performed By: #### C MP, TSH, TROP, BNP #### [facility] [address] [place] [address] Kisha Brii ALT [Catalytic activity/Vol] 33 U/L Normal 21-72 [facility] Comment on above: Performed By: #### C MP, TSH, TROP, BNP #### [facility] [address] [place] [address] Kisha Brii Anion gap [Moles/Vol] 10.1 mmol/L Normal [facility] Comment on above: Performed By: #### C MP, TSH, TROP, BNP #### [facility] [address] [place] [address] Kisha Brii AST [Catalytic activity/Vol] 50 U/L Normal 17-59 [facility] Comment on above: Performed By: #### C MP, TSH, TROP, BNP #### [facility] [address] [place] [address] Kisha Brii Bilirubin Ql (U) 0.9 mg/dL Normal 0.2-1.3 [facility] Comment on above: Performed By: #### C MP, TSH, TROP, BNP #### [facility] [address] [place] [address] Kisha Brii Calcium [Mass/Vol] 8.7 mg/dL Normal 8.4-10.2 [facility] Comment on above: Performed By: #### C MP, TSH, TROP, BNP #### [facility] [address] [place] [address] Kisha Brii Chloride [Moles/Vol] 96 mmol/L Critically low 98-107 [facility] Comment on above: Performed By: #### C MP, TSH, TROP, BNP #### [facility] [address] [place] [address] Kisha Brii CO2 [Moles/Vol] 27.9 mmol/L Normal 22.0-30.0 [facility] Comment on above: Performed By: #### C MP, TSH, TROP, BNP #### [facility] [address] [place], [place] [address] Kisha Brii Creatinine [Mass/Vol] 1.13 mg/dL Normal 0.66-1.25 [facility] Comment on above: Performed By: #### C MP, TSH, TROP, BNP #### [facility] [address] [place], [place] [address] Kisha Brii EGFR-AF TUVALUAN >60 Normal >=60 [facility] Comment on above: Performed By: #### C MP, TSH, TROP, BNP #### [facility] [address] [place] [phone] Kisha Brii EGFR-NON AF TUVALUAN >60 Normal >=60 [facility] Comment on above: Performed By: #### C MP, TSH, TROP, BNP #### [facility] [address] [place] [address] Kisha Brii Globulin (S) [Mass/Vol] 5.8 g/dL Normal [facility] Comment on above: Performed By: #### C MP, TSH, TROP, BNP #### [facility] [address] [place] [id number] Kisha Brii Glucose [Mass/Vol] 263 mg/dL Critically high 74-106 T [facility] Comment on above: Performed By: #### C MP, TSH, TROP, BNP #### [facility] [address] [place] [phone] Kisha Brii Potassium [Moles/Vol] 3.0 mmol/L Critically low 3.4-5.0 [facility] Comment on above: Performed By: #### C MP, TSH, TROP, BNP #### [facility] [address] [place] [phone] Kisha Brii Protein [Mass/Vol] 8.2 g/dL Normal 6.1-8.2 [facility] Comment on above: Performed By: #### C MP, TSH, TROP, BNP #### [facility] [address] [place] [id number] Kisha Brii Sodium [Moles/Vol] 131 mmol/L Critically low 137-145 e [facility] Comment on above: Performed By: #### C MP, TSH, TROP, BNP #### [facility] [address] [place] [address] Kisha Teresa Urea nitrogen [Mass/Vol] 15.0 mg/dL Normal 9.0-20.0 [facility] Comment on above: Performed By: #### C MP, TSH, TROP, BNP #### [facility] [address] [place] [address] Kisha Teresa Urea nitrogen/Creatinine [Mass ratio] 13.3 mg/mg Normal [facility] Comment on above: Performed By: #### C MP, TSH, TROP, BNP #### [facility] [address] [place] [address] Kisha Teresa PROTIMEon 04-08-2020 INR Coag (PPP) [Relative time] 1.03 {INR} Normal [facility] Comment on above: Performed By: #### D DIM, PTT, PT ####[facility] [id number] [place] [id number] Teresa PT Coag (PPP) [Time] 10.9 s Normal 9.0-11.6 [facility] Comment on above: Performed By: #### D DIM, PTT, PT ####[facility] [id number] [place] [id number] Brii PT Coag (PPP) [Time] SEE BELOW Normal [facility] Comment on above: Result Comment: PIO RED INR: 2.0 - 3.0 CONDITIONS NOT LISTED BELOW 2.5 - 3.5 FOR PROSTHETIC HEART VALVE REPLACEMENT 2.5 - 3.5 RECURRENT THROMBOSIS Performed By: #### D DIM, PTT, PT ####[facility] [address] [place] [id number] Teresa PTTon 04-08-2020 aPTT Coag (Bld) [Time] PLEASE NOTE: NORM AL RANGE CHANGE 03-31-2015 DUE TO REAGENT LOT CHANGE Normal [facility] Comment on above: Performed By: #### D DIM, PTT, PT #### [facility] [address] [place] [address] Kisha Teresa aPTT Coag (Bld) [Time] 26.7 s Normal 22.3-36.2 [facility] Comment on above: Performed By: #### D DIM, PTT, PT #### [facility] [address] [place] [address] Kisha Teresa Rapid Covid-19 PCR (CVDRPD)o n 04-08-2020 [employer] LDT Info SEE BELOW Normal [facility] Comment on above: Result Comment: This test is not yet approved or cleared by the [place] Food and Drug Administration (FDA) . This test was developed by [employer], [facility]. The performance characteristics of this test were validated by [facility]. The results are not intended to be used as the sole means for clinical diagnosis or patient management decisions. [facility] is authorized under Clinical Laboratory Improvement Amendments (CLIA) to perform high-complexity testing. When diagnostic testing is negative, the possibility of a false negative should be considered in the context of a patients recent exposures and the presence of clinical signs and symptoms consistent with SARS-CoV-2. Performed By: #### C VDRPD #### [facility] [address] [place] [address] Kisha Teresa SARS-CoV-2 DETECTED NOT DETECTED [facility] Comment on above: Result Comment: . Performed By: #### C VDRPD #### [facility] [address] [place] [address] [facility] - Ion 04-08-2020 Troponin I.cardiac [Mass/Vol] SEE BELOW Normal [facility] Comment on above: Result Comment: <0.0 34 ng/ml NEGATIVE 0.034-0.119 INDETERMINATE 0.120 AMI CUT OFF Performed By: #### C MP, TSH, TROP, BNP #### [facility] [address] [place] [address] [facility] I.cardiac [Mass/Vol] ng/mL Normal <=0.034 [facility] Comment on above: Performed By: #### C MP, TSH, TROP, BNP #### [facility] [address] [place] [address] Kisha Teresa TSHon 04-08-2020 TSH Qn 2.851 uIU/mL Normal 0.470-4.680 [facility] Comment on above: Performed By: #### C MP, TSH, TROP, BNP #### [facility] [address] [place], [place] [address] Kisha Teresa TSH Qn SEE BELOW Normal [facility] Comment on above: Result Comment: <0.3 4 UIU/ml HYPERTHYROID 0.34-5.60 UIU/ml EUTHYROID >5.60 UIU/ml HYPOTHYROID Performed By: #### C MP, TSH, TROP, BNP #### [facility] [address] [place], [place] [address] Kisha Teresa XR CHEST 1 Von 04-08-2020 [...] by: NORY WAN Date: 2020-04-08 11:49 Normal [facility] Vital Signs Date Time Vital Sign Value Performing Clinician Faci lity 10-23-2024 10:55-0400 Body height 175.3 cm Jamil Culver MD Work Phone: [facility] 10-23-2024 10:55-0400 Body mass index (BMI) [Ratio] 23.63 kg/m2 Jamil Culver MD Work Phone: [facility] 10-23-2024 10:55-0400 Body weight 72.58 kg Jamil Culver MD Work Phone: [facility] 10-23-2024 10:55-0400 Diastolic blood pressure 76 mm[Hg] Jamil Culver MD Work Phone: [facility] 10-23-2024 10:55-0400 Heart rate 72 /min Jamil Culver MD Work Phone: [facility] 10-23-2024 10:55-0400 Systolic blood pressure 112 mm[Hg] Jamil Culver MD Work Phone: [facility] 10-09-2024 08:41-0400 Body height 173.99 cm Mayra Spears DPM Work Phone: [facility] 10-09-2024 08:41-0400 Body mass index (BMI) [Ratio] 24 kg/m2 Mayra Spears DPM Work Phone: [facility] 10-09-2024 08:41-0400 Body weight 72.6 kg Mayra Spears DPM Work Phone: [facility] 10-09-2024 08:41-0400 Diastolic blood pressure 66 mm[Hg] Mayra Spears DPM Work Phone: [facility] 10-09-2024 08:41-0400 Heart rate 88 /min Mayra Spears DPM Work Phone: [facility] 10-09-2024 08:41-0400 Respiratory rate 18 /min Mayra Spears DPM Work Phone: [facility] 10-09-2024 08:41-0400 SaO2% (BldA) [Mass fraction] 98 % Mayra Spears DPM Work Phone: [facility] 10-09-2024 08:41-0400 Systolic blood pressure 91 mm[Hg] Mayra Spears DPM Work Phone: [facility] 06-18-2024 08:41-0500 Body height 173.99 cm [facility] 06-18-2024 08:41-0500 Body mass index (BMI) [Ratio] 26.9 kg/m2 [facility] 06-18-2024 08:41-0500 Body weight 81.4 kg [facility] 06-18-2024 08:41-0500 Diastolic blood pressure 86 mm[Hg] [facility] 06-18-2024 08:41-0500 Heart rate 74 /min [facility] 06-18-2024 08:41-0500 Respiratory rate 18 /min [facility] 06-18-2024 08:41-0500 SaO2% (BldA) [Mass fraction] 99 % [facility] 06-18-2024 08:41-0500 Systolic blood pressure 138 mm[Hg] [facility] 04-23-2024 09:26-0500 Body height 173.99 cm [facility] 04-23-2024 09:26-0500 Body mass index (BMI) [Ratio] 26.8 kg/m2 [facility] 04-23-2024 09:26-0500 Body weight 81.27 kg [facility] 04-23-2024 09:26-0500 Diastolic blood pressure 98 mm[Hg] [facility] 04-23-2024 09:26-0500 Heart rate 83 /min [facility] 04-23-2024 09:26-0500 Respiratory rate 18 /min [facility] 04-23-2024 09:26-0500 SaO2% (BldA) [Mass fraction] 98 % [facility] 04-23-2024 09:26-0500 Systolic blood pressure 142 mm[Hg] [facility] 04-07-2024 08:17-0500 Body height 175.3 cm [employer] DO Work Phone: [facility] 04-07-2024 08:17-0500 Body mass index (BMI) [Ratio] 26.11 kg/m2 [employer] DO Work Phone: [facility] 04-07-2024 08:17-0500 Body weight 80.2 kg [employer] DO Work Phone: [facility] 04-07-2024 08:17-0500 Diastolic blood pressure 88 mm[Hg] [employer] DO Work Phone: [facility] 04-07-2024 08:17-0500 Heart rate 84 /min Melanie Daley DO Work Phone: [facility] 04-07-2024 08:17-0500 SaO2% (BldA) [Mass fraction] 98 % Melanie Daley DO Work Phone: [facility] 04-07-2024 08:17-0500 Systolic blood pressure 150 mm[Hg] Melanie Daley DO Work Phone: [facility] 01-21-2024 09:58-0400 Body height 173.99 cm [facility] 01-21-2024 09:58-0400 Body mass index (BMI) [Ratio] 25.5 kg/m2 [facility] 01-21-2024 09:58-0400 Body weight 77.28 kg [facility] 01-21-2024 09:58-0400 Diastolic blood pressure 91 mm[Hg] [facility] 01-21-2024 09:58-0400 Heart rate 82 /min [facility] 01-21-2024 09:58-0400 Respiratory rate 18 /min [facility] 01-21-2024 09:58-0400 SaO2% (BldA) [Mass fraction] 99 % [facility] 01-21-2024 09:58-0400 Systolic blood pressure 137 mm[Hg] [facility] 09-10-2023 08:17-0400 Body height 173.99 cm [facility] 09-10-2023 08:17-0400 Body mass index (BMI) [Ratio] 26.9 kg/m2 [facility] 09-10-2023 08:17-0400 Body weight 81.33 kg [facility] 09-10-2023 08:17-0400 Diastolic blood pressure 91 mm[Hg] [facility] 09-10-2023 08:17-0400 Heart rate 87 /min [facility] 09-10-2023 08:17-0400 Respiratory rate 18 /min [facility] 09-10-2023 08:17-0400 SaO2% (BldA) [Mass fraction] 99 % [facility] 09-10-2023 08:17-0400 Systolic blood pressure 134 mm[Hg] [facility] 06-05-2023 09:15-0500 Body height 173.99 cm Yolette Scally Other [facility] 06-05-2023 09:15-0500 Body mass index (BMI) [Ratio] 25.9 kg/m2 Yolette Scally Other [employer] Other 06-05-2023 09:15-0500 Body weight 78.43 kg Yolette Scally Other [employer] Other 06-05-2023 09:15-0500 Body weight 78.42 kg MD Annie Rodgers Work Phone: [facility] 06-05-2023 09:15-0500 Diastolic blood pressure 83 mm[Hg] Yolette Scally Other [facility] 06-05-2023 09:15-0500 Respiratory rate 18 /min Yolette Scally Other [employer] Other 06-05-2023 09:15-0500 SaO2% (BldA) [Mass fraction] 99 % Yolette Scally Other [employer] Other 06-05-2023 09:15-0500 Systolic blood pressure 119 mm[Hg] Yolette Scally Other [facility] 02-27-2023 10:45-0400 Body height 173.99 cm Yolette Scally Other [employer] Other 02-27-2023 10:45-0400 Body mass index (BMI) [Ratio] 26.07 kg/m2 Yolette Scally Other [employer] Other 02-27-2023 10:45-0400 Body weight 78.93 kg Yolette Scally Other [employer] Other 02-27-2023 10:45-0400 Diastolic blood pressure 86 mm[Hg] Yolette Scally Other [employer] Other 02-27-2023 10:45-0400 Respiratory rate 18 /min Yolette Scally Other [employer] Other 02-27-2023 10:45-0400 SaO2% (BldA) [Mass fraction] 99 % Yolette Scally Other [employer] Other 02-27-2023 10:45-0400 Systolic blood pressure 126 mm[Hg] Yolette Scally Other [employer] Other 12-19-2022 08:45-0400 Body height 173.99 cm Yolette Scally Other [employer] Other 12-19-2022 08:45-0400 Body mass index (BMI) [Ratio] 26.37 kg/m2 Yolette Scally Other [employer] Other 12-19-2022 08:45-0400 Body weight 79.83 kg Yolette Scally Other [employer] Other 12-19-2022 08:45-0400 Diastolic blood pressure 95 mm[Hg] Yolette Scally Other [employer] Other 12-19-2022 08:45-0400 Respiratory rate 18 /min Yolette Scally Other [employer] Other 12-19-2022 08:45-0400 SaO2% (BldA) [Mass fraction] 98 % Yolette Scally Other [employer] Other 12-19-2022 08:45-0400 Systolic blood pressure 149 mm[Hg] Yolette Scally Other [employer] Other 10-03-2022 08:15-0400 Body height 173.99 cm Yolette Scally Other [employer] Other 10-03-2022 08:15-0400 Body mass index (BMI) [Ratio] 27.3 kg/m2 Yolette Scally Other [employer] Other 10-03-2022 08:15-0400 Body weight 82.65 kg Yolette Scally Other [employer] Other 10-03-2022 08:15-0400 Diastolic blood pressure 90 mm[Hg] Yolette Scally Other [employer] Other 10-03-2022 08:15-0400 Respiratory rate 18 /min Yolette Scally Other [employer] Other 10-03-2022 08:15-0400 SaO2% (BldA) [Mass fraction] 99 % Yolette Scally Other [employer] Other 10-03-2022 08:15-0400 Systolic blood pressure 142 mm[Hg] Yolette Scally Other [employer] Other 07-24-2022 10:30-0400 Body height 173.99 cm Annie Rodgers Other [employer] Other 07-24-2022 10:30-0400 Body mass index (BMI) [Ratio] 27.72 kg/m2 Annie Rodgers Other [employer] Other 07-24-2022 10:30-0400 Body weight 83.92 kg Annie Rodgers Other [employer] Other 07-24-2022 10:30-0400 Diastolic blood pressure 80 mm[Hg] Annie Rodgers Other [employer] Other 07-24-2022 10:30-0400 SaO2% (BldA) [Mass fraction] 97 % Annie Rodgers Other [employer] Other 07-24-2022 10:30-0400 Systolic blood pressure 130 mm[Hg] Annie Rodgers Other [employer] Other 06-28-2022 09:00-0500 Body height 175.26 cm Yolette Scally Other [employer] Other 06-28-2022 09:00-0500 Body mass index (BMI) [Ratio] 27.98 kg/m2 Yolette Scally Other [employer] Other 06-28-2022 09:00-0500 Body weight 85.96 kg Yolette Scally Other [employer] Other 06-28-2022 09:00-0500 Diastolic blood pressure Yolette Scally Other [employer] Other 06-28-2022 09:00-0500 Respiratory rate 18 /min Yolette Scally Other [employer] Other 06-28-2022 09:00-0500 SaO2% (BldA) [Mass fraction] 98 % Yolette Scally Other [employer] Other 06-28-2022 09:00-0500 Systolic blood pressure 116 mm[Hg] Yolette Scally Other [employer] Other 05-05-2022 09:15-0500 Body height 175.26 cm Yolette Scally Other [employer] Other 05-05-2022 09:15-0500 Body mass index (BMI) [Ratio] 28.84 kg/m2 Yolette Scally Other [employer] Other 05-05-2022 09:15-0500 Body weight 88.59 kg Yolette Scally Other [employer] Other 05-05-2022 09:15-0500 Diastolic blood pressure 67 mm[Hg] Yolette Scally Other [employer] Other 05-05-2022 09:15-0500 Respiratory rate 18 /min Yolette Scally Other [employer] Other 05-05-2022 09:15-0500 SaO2% (BldA) [Mass fraction] 97 % Yolette Scally Other [employer] Other 05-05-2022 09:15-0500 Systolic blood pressure 96 mm[Hg] Yolette Scally Other [employer] Other 02-03-2022 09:30-0400 Body height 175.26 cm Yolette Scally Other [employer] Other 02-03-2022 09:30-0400 Body mass index (BMI) [Ratio] 28.14 kg/m2 Yolette Scally Other [employer] Other 02-03-2022 09:30-0400 Body weight 86.46 kg Yolette Scally Other [employer] Other 02-03-2022 09:30-0400 Diastolic blood pressure 94 mm[Hg] Yolette Scally Other [employer] Other 02-03-2022 09:30-0400 Respiratory rate 18 /min Yolette Scally Other [employer] Other 02-03-2022 09:30-0400 SaO2% (BldA) [Mass fraction] 99 % Yolette Scally Other [employer] Other 02-03-2022 09:30-0400 Systolic blood pressure 141 mm[Hg] Yolette Scally Other [employer] Other 11-01-2021 10:15-0400 Body height 175.26 cm Yolette Scally Other [employer] Other 11-01-2021 10:15-0400 Body mass index (BMI) [Ratio] 27.76 kg/m2 Yolette Scally Other [employer] Other 11-01-2021 10:15-0400 Body weight 85.28 kg Yolette Scally Other [employer] Other 11-01-2021 10:15-0400 Diastolic blood pressure 92 mm[Hg] Yolette Scally Other [employer] Other 11-01-2021 10:15-0400 Respiratory rate 18 /min Yolette Scally Other [employer] Other 11-01-2021 10:15-0400 SaO2% (BldA) [Mass fraction] 99 % Yolette Scally Other [employer] Other 11-01-2021 10:15-0400 Systolic blood pressure 123 mm[Hg] Yolette Scally Other [employer] Other 07-20-2021 09:45-0400 Body height 175.26 cm Yolette Scally Other [employer] Other 07-20-2021 09:45-0400 Body mass index (BMI) [Ratio] 27.85 kg/m2 Yolette Scally Other [employer] Other 07-20-2021 09:45-0400 Body weight 85.55 kg Yolette Scally Other [employer] Other 07-20-2021 09:45-0400 Diastolic blood pressure 93 mm[Hg] Yolette Scally Other [employer] Other 07-20-2021 09:45-0400 Respiratory rate 20 /min Yolette Scally Other [employer] Other 07-20-2021 09:45-0400 SaO2% (BldA) [Mass fraction] 100 % Yolette Scally Other [employer] [facility] Other 07-20-2021 09:45-0400 Systolic blood pressure 139 mm[Hg] Yolette Pierre Other [employer] Other Encounters Encounter Date Encounter Type Care Provider Facility Start: 11-12-2024 End: 11-12-2024 ambulatory Alysa Rosa Walters CNC MACHINE OPERATOR-C Work Phone: [facility] Work Phone: Start: 11-12-2024 End: 11-12-2024 Departed Referred Mayra Spears DPSaud [facility] -[facility] Start: 10-29-2024 End: 10-29-2024 ambulatory Alyssaa Rosa Walters CNC MACHINE OPERATOR-C Work Phone: [facility] Work Phone: Start: 10-29-2024 End: 10-29-2024 Departed Referred Mayra Spears DPM [facility] -[facility] Start: 10-23-2024 End: 10-23-2024 Office outpatient visit 10 minutes Jamil Culver MD Work Phone: [facility] [place] Comment on above: Critical limb ischem ia of right lower extremity with gangrene ([facility]-H[facility]) (Primary Dx) Start: 10-23-2024 End: 10-23-2024 ambulatory [facility] Start: 10-17-2024 End: 10-17-2024 ambulatory [facility] Start: 10-09-2024 End: 10-09-2024 ambulatory Mayra Spears DPM Work Phone: [facility] Work Phone: Start: 10-09-2024 End: 10-09-2024 Patient encounter procedure Mayra Spears DPM Work Phone: [facility] Work Phone: Start: 10-07-2024 End: 10-07-2024 ambulatory MAYRA SPEARS [facility] Start: 09-25-2024 End: 09-25-2024 ambulatory JAMIL Arvizu [facility] Start: 09-24-2024 Non-patient / Non-visit Mayra Spears DPM Work Phone: [facility] Work Phone: Start: 09-23-2024 End: 09-23-2024 ambulatory Mayra Spears Facility:[facility] Start: 09-23-2024 End: 09-23-2024 Departed Referred Mayra Spears DPM Work Phone: [facility] Start: 09-23-2024 Non-patient / Non-visit Mayra Spears DPM Work Phone: [facility] Work Phone: Start: 09-22-2024 Non-patient / Non-visit Mayra Spears DPM Work Phone: [facility] Work Phone: Start: 09-21-2024 Non-patient / Non-visit Mayra Spears DPM Work Phone: [facility] Work Phone: Start: 09-20-2024 Non-patient / Non-visit Mayra Spears DPM Work Phone: [facility] Work Phone: Start: 06-18-2024 End: 06-18-2024 ambulatory Yolette Pierre [facility] Work Phone: Start: 06-18-2024 End: 06-18-2024 Departed Referred Yolette Pierre UTILITY MECHANIC SUPERVISOR Work Phone: [facility] [place] Work Phone: Start: 06-18-2024 End: 06-18-2024 ambulatory [facility] Work Phone: Start: 06-18-2024 End: 06-18-2024 Patient encounter procedure [facility] Work Phone: Start: 04-23-2024 End: 04-23-2024 Patient encounter procedure [facility] Work Phone: Start: 04-11-2024 End: 04-11-2024 Emergency department patient visit PARRISH LOCKE [facility] Start: 04-07-2024 End: 04-07-2024 Bamboo flowsheet Melanie Daley DO Work Phone: [employer] [facility] Start: 04-07-2024 End: 04-07-2024 Bamboo flowsheet Ezekieler Edi DO Work Phone: [employer] [facility] Start: 04-07-2024 End: 04-07-2024 Office outpatient new 45 minutes Ezekieler Edi DO Work Phone: [employer] [facility] Comment on above: Neuralgia (Primary D x); DDD (degenerative disc disease), cervical Start: 04-07-2024 End: 04-07-2024 ambulatory MELANIE DALEY Not Available Start: 01-21-2024 End: 01-21-2024 ambulatory [facility] Work Phone: Start: 01-21-2024 End: 01-21-2024 Patient encounter procedure [facility] Work Phone: Start: 09-10-2023 End: 09-10-2023 ambulatory [facility] Work Phone: Start: 09-10-2023 End: 09-10-2023 Patient encounter procedure [facility] Work Phone: Start: 06-07-2023 End: 06-07-2023 ambulatory Yolette Pierre Other [employer] [place] [employer] Other Start: 06-07-2023 Telephone encounter Yolette Scally [facility] Start: 06-05-2023 (DM) Diabetes Yolette Scally [facility] Start: 06-05-2023 End: 06-05-2023 ambulatory MD Annie Rodgers Work Phone: [employer] Other Start: 06-05-2023 End: 06-05-2023 Discharged Recurring MD Annie Rodgers Work Phone: [facility] Work Phone: Start: 06-05-2023 End: 06-05-2023 Patient encounter procedure MD Annie Rodgers Work Phone: [facility]- Start: 05-18-2023 End: 05-18-2023 ambulatory Yolette Scally Other [employer] Other Start: 05-18-2023 Telephone encounter Yolette Scally [facility] Start: 02-28-2023 End: 02-28-2023 ambulatory Yolette Scally Other [employer] Other Start: 02-28-2023 Telephone encounter Yolette Scally [facility] Start: 02-27-2023 (DM) Diabetes Yolette Scally [facility] Start: 02-27-2023 End: 02-27-2023 ambulatory Yolette Scally Other [employer] Other Start: 12-19-2022 (DM) Diabetes Yolette Scally [facility] Start: 12-19-2022 End: 12-19-2022 ambulatory Yolette Scally Other [employer] Other Start: 12-07-2022 End: 12-07-2022 ambulatory Yolette Scally Other [employer] Other Start: 12-07-2022 Telephone encounter Yolette Scally [facility] Start: 10-03-2022 (DM) Diabetes Yolette Scally [facility] Start: 10-03-2022 End: 10-03-2022 ambulatory Yolette Scally Other [employer] Other Start: 10-03-2022 Telephone encounter Yolette Scally [facility] Start: 07-24-2022 End: 07-24-2022 ambulatory Annie Rodgers Other [employer] Other Start: 07-24-2022 Office outpatient ne w 30 minutes Annie Rodgers [facility] Start: 07-04-2022 End: 07-04-2022 ambulatory Yolette Scally Other [employer] Other Start: 07-04-2022 Telephone encounter Yolette Scally [facility] Start: 06-28-2022 (DM) Diabetes Yolette Scally [facility] Start: 06-28-2022 End: 06-28-2022 ambulatory Yolette Scally Other [employer] Other Start: 06-26-2022 End: 06-26-2022 ambulatory Yolette Scally Other [employer] Other Start: 06-26-2022 Telephone encounter Yolette Scally [facility] Start: 06-19-2022 End: 06-19-2022 ambulatory Yolette Scally Other [employer] Other Start: 06-19-2022 Telephone encounter Yolette Scally [facility] Start: 05-05-2022 (DM) Diabetes Yolette Scally [facility] Start: 05-05-2022 End: 05-05-2022 ambulatory Yolette Scally Other [employer] Other Start: 03-27-2022 End: 03-27-2022 ambulatory Yolette Scally Other [employer] Other Start: 03-27-2022 Telephone encounter Yolette Scally [facility] Start: 02-03-2022 (DM) Diabetes Yolette Scally [facility] Start: 02-03-2022 End: 02-03-2022 ambulatory Yolette Scally Other [employer] Other Start: 11-21-2021 End: 11-21-2021 ambulatory Yolette Scally Other [employer] Other Start: 11-21-2021 Telephone encounter Yolette Scally [facility] Start: 11-11-2021 End: 11-11-2021 ambulatory Yolette Scally Other [employer] Other Start: 11-11-2021 Telephone encounter Yolette Scally [facility] Start: 11-01-2021 (DM) Diabetes Yolette Scally [facility] Start: 11-01-2021 End: 11-01-2021 ambulatory Yolette Scally Other [employer] Other Start: 10-24-2021 End: 10-24-2021 ambulatory Yolette Scally Other [employer] Other Start: 10-24-2021 Telephone encounter Yolette Scally [facility] Start: 09-13-2021 End: 09-13-2021 ambulatory Yolette Scally Other [employer] Other Start: 09-13-2021 Telephone encounter [facility] Start: 08-23-2021 End: 08-23-2021 ambulatory Yolette Pierre Other [employer] Other Start: 08-23-2021 Telephone encounter [facility] Start: 08-04-2021 End: 08-04-2021 ambulatory Yolette Pierre Other [employer] Other Start: 08-04-2021 Telephone encounter Yolette [facility] Start: 07-20-2021 (DM) Diabetes [facility] Start: 07-20-2021 End: 07-20-2021 ambulatory Yolette Pierre Other [employer] Other Start: 04-08-2020 End: 04-08-2020 Patient encounter procedure MARCEL PAIZ Facility: Procedures Date Procedure Procedure Detail Performing Clinician History of amputatio n of lesser toe H/O amputation of lesser toe Mayra Spears DPM Work Phone: Comment on above: right great toe Plan of Treatment Date Care Activity Detail Author Start: 10-23-2025 Adult BMI Screening Adult BMI Screen ing [facility] Start: 04-11-2025 Tobacco Screening Tobacco Screening [facility] Start: 01-05-2025 Influenza vaccination Influenza Vacc ine [facility] Start: 10-29-2024 [facility] Start: 04-07-2024 End: 04-07-2024 Patient encounter procedure 04/07/2024 8:30 AM EST [facility] [address] [place] [id number] Melanie Daley DO [address] [place] [address] [address] [facility] Comment on above: Arrived Start: 2011 Administration of varicella zoster vaccine Zoster (Shingles) Vaccine (1 of 2) [facility] Start: 02-06-1980 DTaP,Tdap and Td Vac cines (1 - Tdap) DTaP,Tdap and Td Vaccines (1 - Tdap) [facility] Start: 1973 Depression Screening Depression Scre ening [facility] Comprehensive metabo lic 1999 panel - Serum or Plasma [facility] Comprehensive metabo lic 1999 panel - Serum or Plasma [facility] Payers Date Payer Category Payer Self-pay [id number] 2024 Medicare HMO [facility] [id number] 2024 Medicare [id number] 2022 Medicare (Managed Care) [facility] [id number] 2022 Medicare [id number] 1961 Unknown [id number] 1961 Unknown [id number] 1259 1961 Unknown [id number]. 1286 1961 Unknown [id number]. 1286 1961 Unknown [id number]. 1286 1961 Unknown [id number]. 1286 1961 Unknown [id number] [id number]. 1286 1959 Unknown [id number] Medicare [id number] Unknown [id number] 531 Unknown [id number]. 531 Unknown [id number]. 531 Unknown [id number]. 531 Social History Date Type Detail Facility Unknown if ever smoked [employer] Other Start: 06-17-2020 End: 04-11-2024 Sex Assigned At [employer] Other Start: 1960 Sex Assigned At Male [facility] Start: 09-10-2023 End: 10-09-2024 Tobacco smoking status KSIS Ex-smoker (finding) [facility] Tobacco smoking status KSIS Tobacco smoking consumption unknown [facility] Start: 1960 Sex assigned at Not on file [facility] Start: 12-10-2014 End: 06-18-2024 Sex Male (finding) [facility] History of tobacco use Current smoker [facility] Start: 04-11-2024 Alcoholic beverage intake Current drinker of alcohol (finding) [facility] Start: 06-17-2020 End: 04-11-2024 Alcoholic beverage intake [facility] Childcare Unknown [facility] Procedure Code Equipment Code Equipment [...] and follow up with us as needed. [facility] 10-23-2024 Miscellaneous Notes Associate d Problem(s): Critical limb ischemia of right lower extremity with gangrene (CMS-HCC) He has no significant occlusive disease. Plan is to continue to work with podiatry and follow up with us as needed. documented in this encounter [facility] 10-23-2024 History of Presen t [...] Diagnosis Date Diabetes mellitus type 2, controlled ([facility]) Hyperlipidemia Hypertension Past Surgical History: Past Surgical History: Procedure Laterality Date lower ext angio Right 10/17/2024 Performed by Jamil Culver MD at [facility] Social and Family History: [...] Jamil Culver MD, RADHA, RPVI, FSVS, FACS [facility] This note was created with the assistance of a speech recognition program. While intending to generate a timely document that accurately reflects the content of the visit, no guarantee can be provided that every grammatical or spelling mistake has been or will be identified or corrected. Thank you for your understanding. documented in this encounter [facility] 10-09-2024 Evaluation note Diagnosis Onset Date Resolution BMI 25.0-25.9,adult acute October 09, 2024 8:20am Dietary counseling and surveillance acute October 09, 2024 8:20am HTN (hypertension) acute October 092024 8:20am Hyperlipidemia acute October 09, 2024 8:20am Hypotension acute October 09 8:20am terminologist 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 insulin acute October 09, 2024 8:20am Persistent albuminuria acute 2024 8:20am Type 2 diabetes mellitus with hyperglycemia acute October 09 8:20am Vitamin D deficiency acute October 09, 2024 8:20am [facility] Work Phone: 1(863) 291-206212-18-2024 Evaluation note* Diagnosis Onset Date Resolution Status [...] June 18 8:25am Vitamin D deficiency acute uary 2024 8:25am [facility] Work Phone: 1(857) 482-593612-02-2024 History of Present illness Narrative* Melanie Daley, [...] , wrist extensors , wrist flexor , mandrel cleaner strength 5/5. LUE Strength deltoid , biceps , triceps , wrist extensors , wrist flexor , mandrel cleaner strength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
== END 2024-12-24 09:11 | disposition home or self-care (01) ==
LOC: WC 09:10
PROVIDERS: PCP Family Medicine; Visit Provider Podiatrist Foot & Ankle Surgery
DX: I70.261 Atherosclerosis of native arteries of extremities with gangrene, right leg (principal); L97.514 Non-pressure chronic ulcer of other part of right foot with necrosis of bone; E11.621 Type 2 diabetes mellitus with foot ulcer; L97.411 Non-pressure chronic ulcer of right heel and midfoot limited to breakdown of skin
CPT/HCPCS: 11044

== ENCOUNTER 2025-01-07 09:10 | Outpatient (OUT) | payer MEDICARE, SELFPAY ==
--- OUTSIDE RECORDS SUMMARY | 2024-03-26 06:01 | XMS_ITS ---
Author Organization The [facility] in [place] Address [address] [place] [address] Care Team Providers Care Barbering Teacher Name Role Phone None, Unknown or Primary Care Provider Unavailab Marii Quesada Unavailable [phone] REASON FOR VISIT needs yearly appointment Encounters Encounter Location Date Provider Diagnosis [facility] [address] [place] [address] 03/26/2024 Marii Temple[place] Plan Of Treatment No Information Progress Notes * Nu RODRIGUEZ HDOB:1959 (64 yo M)Acc No.[id number]:03/26/2024 Patient: Romy KNIGHTjeanne Kasie :1960 A ge:64 Y S ex:Male Address:[address] [place] [address], [phone] * true * Date: Generated for Printi ng/Fakendrickg/eTransmitting on: 0 01/07/2025 09:13 AM EDT
--- OUTSIDE RECORDS SUMMARY | 2024-10-30 06:30 | XMS_ITS ---
Author Organization [facility] vices Address [address] [place], [place] [phone] Care Team Providers Care Director Report Name Role Phone Ximena Walters Unavailable [phone] REASON FOR VISIT 6 month DM2, HTN Encounters Encounter Location Date Provider Diagnosis Main [address] [facility] [phone] 10/30/2024 Ximena Walters Plan Of Treatment No Information Progress Notes * RODRIGUEZJassi CONTRERASDOB: [birth year] (64 yo M)Acc No.[id number]:10/30/2024 Medical Note Patient: Jassi KNIGHT Provider: Jonah Walters :1960 A ge:64 Y S ex:Male Date:10/30/2024 Address:[address] [place], [place] [phone] Subjective: * Chief Complaints: * 1 . 6 month DM2, HTN. * Medical History: Objective: * Vitals: Assessment: Plan: * Treatment: * Billing Information: * Visit Code: * Procedure Codes: * Electronic signature of LEXY Horton sa on 01/07/2025 at 09:13 AM EDT Sign off status: Pending * Provider: Jonah Walters Date: 0 10/30/2024 Generated for Meliza gonzalez/Gabriel/eTransmitting on: 0 01/07/2025 09:13 AM EDT
--- OUTSIDE RECORDS SUMMARY | 2025-01-07 09:13 | XMS_ITS | Patient Health Record ---
Author Organization [facility] vices Address [address] [place], [place] [address] Care Team Providers Care Automotive Service Cashier Name Role Phone Ximena Walters Unavailable [phone] Ned Rizo Unavailable [phone] Allergies No Known Allergies Results Component Value Reference Range Notes HEPATITIS C AB REFLEX QUANT Reviewed date:04/18/2024 11:01:54 PM Interpretation: Performing Lab: Notes/Report: HEPATITIS C AB NEGATIVE NEGATIVE HIV-1 2 COMBO AG/AB Reviewed date:04/18/2024 11:01:54 PM Interpretation: Performing Lab: Notes/Report: assay. HIV-1 and/or HIV-2 that are below the limit of detection of this Does not exclude the possibility of exposure to or infection with No laboratory evidence of HIV infection. Negative for HIV-1 antigen and HIV-1/HIV-2 antibodies. HIV-1,2 COMBO AG/AB Nonreactive Nonreactive HIV-1 p24 Ag Nonreactive Nonreactive HIV-1/HIV-2 Abs Nonreactive Nonreactive HEMOGLOBIN A1C Reviewed date:04/18/2024 11:01:54 PM Interpretation: [...] UNLESS OTHERWISE INDICATED, ALL TESTING PERFORMED AT: [employer] [address] [place] [address] SUPERVISOR SILVERING DEPARTMENT: Isatu LIVINGSTONIA NUMBER [id number] [facility] ACCREDITATION AUID [id number] Changes in testing location may be associated with reference range changes for a number of analytes. Please review reference intervals carefully. PSA, TOTAL, 3RD GENERATION Reviewed date:04/18/2024 11:01:54 [...] a subsequent confirmatory PSA value >=0.2 ng/ml. COMPREHENSIVE METABOLIC PANE L WITH GFR Reviewed [...] 8.0 6.0-8.3 g/dL ALBUMIN 3.7 3.5-5.2 g/dL LIPID PANEL WITH REFLEX TO D IRECT [...] high risk >7.1 >5.6 CHOL/HDL 2.8 2.0-4.5 Reason For Referral No Information Medications Medication SIG (Take, Route, Frequency, Duration) Notes Start Date End Date Status Doxycycline Monohydrate 100 MG Oral; Duration: 10 Days Not-Taking Farxiga 10 MG 1 tablet Orally Once a day Active FreeStyle Miladys 2 Sensor - ; Duration: 84 Days Active Ciprofloxacin HCl 500 MG TAKE 1 TABLET B Y MOUTH TWICE DAILY Oral; Duration: 10 Days Active OXcarbazepine Not-Ta brian Lantus 100 UNIT/ML 40U Subcutaneous nightly Active metFORMIN HCl 500 MG 2 tablets in the AM and 2 tablets in the PM Orally twice daily Active Ibuprofen 800 MG 1 tablet with food o r milk as needed Orally every 8 hrs; Duration: 30 days Active Cyclobenzaprine HCl 10 MG 1 tablet at be dtime as needed Orally Once a day; Duration: 30 days 05/01/2024 Active Ozempic (0.25 or 0.5 MG/DOSE) 2 MG/3ML 0.25 milliliters as directed Subcutaneous once weekly Active Lisinopril 5 MG 1 tablet Orally Once a day; Duration: 90 days 05/16/2024 Active Rosuvastatin Calcium 5 MG 1 tablet Orall y Once a day; Duration: 90 days 05/16/2024 Active FreeStyle Miladys 2 Sensor - USE DIRECT ED TO MONITOR BLOOD SUGAR AND CHANGE EVERY 14 DAYS; Duration: 84 Days Active Problems Problem Type SNOMED Code ICD Code Onset Dates Problem Status W/U Status Risk Notes Problem Polyneuropathy due to type 2 diabetes mellitus (110063892) Type 2 diabetes mellitus with diabetic polyneuropathy (E11.42) Active confirmed Problem Essential hypertension (05709826) Essential hypertension (I10) Active confirmed Problem Hyperlipidemia (02950127) Mild hyperlipidemia (E78.5) Active confirmed Problem Amputation of toe (612270169) Amputation toe (S98.139A) Active confirmed Vital Signs Heart Rate 97 /min 09/30/2024 denies pain. [facility] 09/30/2024 01:20:48 PM EDT > Temperature 97.4 degrees Fahrenheit 09/30/2024 fermin es pain. Penelope Faria 09/30/2024 01:20:48 PM EDT > Respiratory Rate 18 /min 09/30/2024 denies pain . Penelope Faria 09/30/2024 01:20:48 PM EDT > Height-cm 175.26 cm 09/30/2024 denies pain. [facility] tri[facility] 09/30/2024 01:20:48 PM EDT > Oximetry 98 % 09/30/2024 denies pain. [facility] tripp 09/30/2024 01:20:48 PM EDT > Blood pressure diastolic 72 mm Hg 09/30/2024 den ies pain. Penelope Faria 09/30/2024 01:20:48 PM EDT > Weight-kg 72.53 kg 09/30/2024 denies pain. [facility] tripp 09/30/2024 01:20:48 PM EDT > Height 69 in 09/30/2024 denies pain. [facility] tripp 09/30/2024 01:20:48 PM EDT > Blood pressure systolic 101 mm Hg 09/30/2024 fermin es pain. Penelope Faria 09/30/2024 01:20:48 PM EDT > Weight 159.9 lbs 09/30/2024 denies pain. [facility] tirpp 09/30/2024 01:20:48 PM EDT > BMI 23.61 kg/m2 09/30/2024 denies pain. [facility] tripp 09/30/2024 01:20:48 PM EDT > Encounters Encounter Location Date Provider Diagnosis [address] [place] [id number] 04/17/2024 [facility] Encounter for well ness examination Z00.00 ; [...] mass index [BMI] 26.0-26.9, adult Z68.26 [address] [place], [place] [id number] 05/01/2024 [facility] Closed fracture of multiple ribs of right side with routine healing, subsequent encounter S22.41XD ; Essential hypertension I10 ; Mild hyperlipidemia E78.5 ; Type 2 diabetes mellitus with diabetic polyneuropathy E11.42 ; Body mass index [BMI] 25.0-25.9, adult Z68.25 and Overweight E66.3 [address] [facility] [place] [place] [id number] 09/30/2024 Ned Studd Mild hyperlipidemi a E78.5 ; Essential hypertension I10 ; Amputation toe S98.139A and Osteomyelitis of right foot, unspecified type M86.9 [address] [place], [place] [id number] 04/17/2024 [facility] [address] [place], [place] [id number] 05/15/2024 [facility] Essential hyperten nevin I10 and Mild hyperlipidemia E78.5 [address] [place], [place] [id number] 09/26/2024 Ned Studd [address] [place], [place] [id number] 01/01/2025 Ned Studd Mild hyperlipidemi a E78.5 [address] [place], [place] [id number] 01/01/2025 Ned Studd Essential hyperten nevin I10 Assessments Encounter Date Diagnosis (ICD Code) Assessment [...] 09/30/2024 Mild hyperlipidemia (ICD-10 - E78.5) refilled 01/01/2025 Mild hyperlipidemia (ICD-10 - E78.5) 01/01/2025 Essential hypertension (ICD-10 - I10) 09/30/2024 Amputation toe (ICD-10 - S98.139A) Pts [...] F/u 6 months & PRN Continue following w/ Barrie Pierre CNP from [facility] 09/30/2024 Osteomyelitis of right foot, unspecified [...] Insured Coverage Start Date Coverage End Date [place] [employer] [address] [place] [address] [id number] 6 [facility] 0 Jassi Rodriguez Self - patient is the insured 5 Medical (General) History Medical History History ICD Code Type 2 Diabetes Hyperlipidemia Surgical History Surgery Date(Month/Year) [facility] right foot september 2024 Hospitalization History Reason Date(Month/Year) right foot september 2024
--- OUTSIDE RECORDS SUMMARY | 2025-01-07 09:13 | XMS_ITS | Patient Health Record ---
Author Organization [facility] [place] Address [address] [place] [address] Care Team Providers Care Ticket Taker Ferryboat Name Role Phone None, Unknown or Primary Care Provider Unavailab Marii Quesada Unavailable [phone] Results Component Value Reference Range Notes ECG 12 lead Reviewed date:09/22/2024 07:01:41 PM Interpretation: Performing Lab: Notes/Report: Source Facility: [place] [address] [place] [address] Electrocardiograph Report Draft Patient: LAN RODRIGUEZ MR#: [id number] : 1960 Acct:[id number] Age/Sex: 64 / M ADM Date: 09/20/24 Loc: MS 230-[address]: Josse Barajas M.D. Ordering Physician: Josse Barajas M.D. 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 Ordering Physician: Josse Barajas M.D. 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 Gram Stain Result Gram Stain Result Gram Stain Result Gram Stain Result No organisms seen Gram Stain Result Gram Stain Result Performed at: [facility] Gram Stain Result Gram Stain Result [address] [place], [place] [id number] Gram Stain Result Gram Stain Result Power Line Lineman: Jorge Luis Vergara PhD, Phone: [phone] Gram Stain Result Performing Lab: see note SEE REPORT - Photograph Mounter Id information not found for OBX-specific reproducer legend LC - [facility] LB Fungus (Mycology) Culture [...] (Mycology) Culture Fungus (Mycology) Culture Performed at: [facility] Fungus (Mycology) Culture Fungus (Mycology) Culture [address] [place], [place] [id number] Fungus (Mycology) Culture Fungus (Mycology) Culture Power Line Lineman: Giovanny Vergara PhD, Phone: [phone] Fungus (Mycology) Culture Performing Lab: see note - [facility] LB SEE REPORT - Photograph Mounter Id information not found for OBX-specific reproducer legend Fungus Stain (Not yet review ed by provider) Interpretation: Performing Lab: Notes/Report: Comment Proximal phalanx [facility] , Fungus Stain See Below For Report Fungus Stain Fungus Stain KALE/Calcofluor prepa ration: no fungus observed. Fungus Stain Performing Lab: see note [facility] LB CRP Reviewed date:09/23/2024 08:08:00 PM Interpretation: Performing Lab: Notes/Report: [facility] , C Reactive Protein 3.19 <=0.50 mg/dL Performing Lab: see note ML - [facility] LB VANCOMYCIN TROUGH Reviewed date:09/23/2024 08:08:00 PM Interpretation: Performing Lab: Notes/Report: [facility] , Vancomycin Trough 18.3 5.0-20.0 ug/mL Performing Lab: see note ML - [facility] LB CRP Reviewed date:09/22/2024 12:58:38 PM Interpretation: Performing Lab: Notes/Report: [facility] , C Reactive Protein 4.29 <=0.50 mg/dL Performing Lab: see note ML - [facility] LB Fungus (Mycology) Culture (N ot yet [...] logy) Culture Fungus (Mycology) Culture Performed at: [facility] Fungus (Mycology) Culture Fungus (Mycology) Culture [address] [place], [place] [id number] Fungus (Mycology) Culture Fungus (Mycology) Culture Power Line Lineman: Giovanny Vergara PhD, Phone: [phone] Fungus (Mycology) Culture Performing Lab: see note LC - [facility] LB SEE REPORT - Photograph Mounter Id information not found for OBX-specific reproducer legend XR foot RT min 3V Reviewed date:09/23/2024 08:08:00 PM Interpretation: Performing Lab: Notes/Report: Source Facility: [place] [address] XRay Report Signed Patient: LAN RODRIGUEZ MR#: [id number] : 1960 Acct:[id number] Age/Sex: 64 / M ADM Date: 09/20/24 Loc: MS 230-[address]: Josse Barajas M.D. Ordering Physician: Colton Spears D.P.M. Date of Service: 09/23/24 Procedure(s): XR foot RT min 3V Accession Number(s): [id number] cc: Le Mares M.D.; Colton Spears D.P.M. [place] [address] Patient Name: LAN RODRIGUEZ MRN: [id number] date: 1960 Sex: M Assigned Patient Location: [place] Current Patient Location: [place] Accession/Order Number: [id number] Exam Date: 09/23/2024 10:54 Report Date: 09/23/2024 [...] Blackwell M.D. 09/23/2024 10:55 AM Dictation Location: [place] [address] Electronically authenticated by: [id number] Y Date: 09/23/2024 10:55 Dictated By: Don Blackwell M.D. Signed By: 09/23/24 1058 DD/ 54 TD/TT: Film Reader: [place] [address] XRay Report Signed Patient: RENETTA RODRIGUEZ MR#: [id number] : 1960 Acct:[id number] Age/Sex: 64 / M ADM Date: 09/20/24 Loc: MS 230-[address]: Katlyn Barajas M.D. Ordering Physician: Colton Spears D.P.M. Date of Service: 09/23/24 Procedure(s): XR diane t RT min 3V Accession Number(s): [id number] cc: Le Mares; Colton Spears D.P.M. [place] [address] Patient Name: LAN RODRIGUEZ MRN: [id number] date: 1960 Sex: M Assigned Patient Loc ation: MS Current Patient Loca tion: [place] Accession/Order Numb er: [id number] Exam Date: 09/23/2024 10:54 Report Date: 09/23/2024 [...] Blackwell M.D. 09/23/2024 10:55 AM Dictation Location: [place] [address] Electronically authenticated by: [id number] Y Date: 09/23/2024 10:55 Dictated By: Don Blackwell M.D. Signed By: 09/23/24 1058 DD/ 1055 TD/TT: Film Reader: Tissue Culture (Not yet revi ewed by [...] FOLLOW Tissue Culture Performing Lab: see note - [facility] LB Anaerobic Cult, Extended Inc [...] Incub Anaerobic Cult, Extended Incub Studies at [facility] have confirmed the observations O:BACFRA Isolated Anaerobic [...] Lab: see note LC - [facility] LB Acid Fast Culture (Not yet r eviewed by provider) Interpretation: Performing Lab: Notes/Report: Comment Proximal phalanx [facility] , Acid Fast Culture See Below For Report Specimen has been received and testing has been initiated. Acid Fast Culture Acid Fast Culture Performed at: [facility] Specimen has been received and testing has been initiated. Acid Fast Culture Acid Fast Culture [address] [place], [place] [id number] Specimen has been received and testing has been initiated. Acid Fast Culture Acid Fast Culture Power Line Lineman: Jorge Luis Vergara PhD, Phone: [phone] Specimen has been received and testing has been initiated. Acid Fast Culture Performing Lab: see note SEE REPORT - Photograph Mounter Id information not found for OBX-specific reproducer legend LC - [facility] LB Acid Fast [...] Lab: see note LC - [facility] LB Reason For Referral No Information Problems Problem Type SNOMED Code ICD Code Onset Dates Problem Status W/U Status Risk Notes Problem Diabetic neuropathy (009933526) Diabetic neuropathy (E11.40) Active confirmed Problem Leukocytosis (683053449) Leukocytosis (D72.829) Active confirmed Problem Protein calorie malnutrition (026480442) Protein calorie malnutrition (E46) Active confirmed Problem Dry gangrene (09826442) Dry gangrene (I96) Active confirmed Problem Osteomyelitis (78479066) Osteomyelitis of toe of right foot (M86.9) Active confirmed Problem 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
--- OUTSIDE RECORDS SUMMARY | 2025-01-07 09:13 | XMS_ITS | Clinical Summary ---
Author Organization [facility] Address [address] [place] [address] Care Team Providers Care Sweatband Drummer Name Role Phone Raman Daley DO Unavailable [phone] Leticia Blanco LUMBER YARD WORKER Unavailable [phone] Suzanna Ybarra NP Unavailable Unavailable Allergies [...] Plan of Treatment Not on file Insurance [facility] Care Teams Sweatband Drummer Relationship Specialty Start Date End Date Raman Daley DO [address] [place] [phone] Referring Physician Neurology 04/07/24 Leticia Blanco NP [address] [address] Nurse Practitioner Neurology 04/07/24 Suzanna Ybarra NP [address] [address] Nurse Practitioner Neurology 04/07/24
--- OUTSIDE RECORDS SUMMARY | 2025-01-07 09:13 | XMS_ITS | Clinical Summary ---
Author Organization Diasomes tem Address [id number] [address] [place] [address] Care Team Providers Care Studio Technician Video Operator Name Role Phone No Pcp, No [...] Description 10/23/2024 10:50 AM EDT Office Visit [facility] [place] [address] [place] [address] Jamil Culver MD Critical limb ischemia of right lower extremity with gangrene ([facility]) (Primary Dx) 10/23/2024 Travel 10/17/2024 12:00 PM EDT - 10/17/2024 12:45 PM EDT Surgery [facility] [address] [place] [address] Jamil Culver MD lower ext angio 10/17/2024 10:16 AM EDT - 10/17/2024 4:50 PM EDT Hospital Encounter [facility] - CVU-IVU [address] [place] [address] Jamil Culver MD PAD (peripheral artery disease); Gangrene ([facility]); Critical limb ischemia of right lower extremity with gangrene ([facility]) Discharge Disposition: Home 10/17/2024 Travel 10/07/2024 3:35 PM EDT - 10/07/2024 11:59 PM EDT Hospital Encounter [facility] - Vascular [address] [place] [address] Poor circulation; Gangrene ([facility]); PAD (peripheral artery disease) Discharge Disposition: Home 10/07/2024 Travel from Last 3 Months Family History [...] 10/07/2024 4:29 PM EDT Poor circulation Gangrene (CMS-HCC) PAD (peripheral artery disease) from Last 3 Months Results * VASCULAR INVASIVE (10/17/2024 12:31 PM EDT) Anatomical Region Laterality Modality X-Ray Angiograph y Narrative 10/17/2024 2:19 PM EDT Recommendations: No evidence of significant arterial occlusive disease. Continue wound care and follow up with Podiatry. Procedure Details Patient Name: Jassi Rodriguez Medical Record: [id number] Date of Operation: 10/17/2024 Preoperative Diagnosis: Right [...] The patient was then taken to the section laborer and transferred to the table. Bilateral [...] - 99 mg/dL 10/20/2024 9:02 AM EDT [facility] 10/17/2024 10:4 9 AM EDT 10/20/2024 9:02 AM EDT Jamil Culver MD POINT OF CARE TEST ORDERABLES Final Result Performing Organization Address [facility] Co de Phone Number [facility] [address] [place] [address], [place] * POCT BUN, creat (10/17/2024 10:49 AM EDT) POC BUN 17 6 - 27 mg/dL 10/20/2024 9:02 AM EDT [facility] POC Creatinine 1.1 0.7 - 1.2 mg/dL 10/20/2024 9:02 AM EDT [facility] POC EGFR Non-Race Dependent 75 >=60 ml/min/1.7 3sq.m 10/20/2024 9:02 AM EDT [facility] Comment: Reported eGFR is based on the CKD-EPI 2020 equation that does not use a race coefficient. 10/17/2024 10:4 9 AM EDT 10/20/2024 9:02 AM EDT Jamil Culver MD POINT OF CARE TEST ORDERABLES Final Result [facility] [address] [place] [address], [place] * Vas art doppler lwr bilat [...] hours at the phone number besidetheir name. Colton Spears DPM CV VASCULAR ORDERABLES Fi nal Result from Last 3 Months Insurance [facility] MEDIC[facility] Advance Directives * Full Code (Latest Code Status on File) Date Activated Date Inactivated Comments 09/16/2016 8:20 PM 09/22/2016 8:22 PM * Full Code Date Activated Date Inactivated Comments 09/16/2016 1:01 PM 09/16/2016 8:20 PM Care Teams Studio Technician Video Operator Relationship Specialty Start Date End Date No Pcp[place] [id number] PCP - General Family Medicine 04/11/24
--- OUTSIDE RECORDS SUMMARY | 2025-01-07 09:34 | XMS_ITS | CCD ---
Author Organization [facility] CliniSymi Care Team Providers Care Trains Service Conductor Name Role Phone MARCEL PAIZ Attending Unavailable NORY WAN Consulting Unavailable ANNIE RODGERS Primary Care Unavailable MARCEL PAIZ Admitting Unavailable MARCEL PAIZ Consulting Unavailable Yolette Pierre Unavailable Annie Rodgers Unavailable MD Annie Rodgers Primary Care Provider TIFFANIE Pierre Attending Provider Unavailable Primary Care Provider UnavailMelanie Hale DO Unavailable Francis DISCHARGE DOOR OPERATOR, Leticia Unavailable Tate DISCHARGE DOOR OPERATOR, Suzanna Unavailable MELANIE DALEY Attending Unavailable [...] PCP, NO PCP Primary Care Unavailable Selena DISCHARGE DOOR OPERATOR-C, Francisco Lee Primary Care Provider Estephanie CARVALHO, Krys Mckenzie Attending Provider [phone] Shaji CARVALHO, Attending Provider [phone] Desiree Garcia CMA Attending Provider Unavaila ble Yolette Pierre APRN Attending Provider NON STAFF Primary Care Provider UnavailMayra Shepard Admitting Unavailable Mayra Spears Attending Unavailable Mayra Spears Admitting Unavailable Mayra Spears Attending Unavailable Yolette Pierre Admitting Unavailable Yolette Pierre Attending Unavailable Mayra Spears Admitting Unavailable Mayra Spears Attending Unavailable Mayra Spears DPM Attending Provider [phone] Medications Current Medications Medication Drug Class(es) Dates [...] Active Blood-Glucose Meter (Onetouch Ultra2 Meter) misc (12 sources) Start: 06-18-2024 Blood-Glucose Meter (Onetouch Ultra2 Meter) misc Active 0 .Route 1 June 18, 2024 10:07am As directed test blood sugar three times daily Start: 06-18-2024 Blood-Glucose Meter (Onetouch Ultra2 Meter) misc Active 0 .Route 1 June 18, 2024 9:07am As directed test blood sugar three times daily Start: 06-18-2024 End: 06-18-2024 Blood-Glucose Meter (Onetouc h Ultra2 Meter) mis Discontinued 0 .Route June 18, 2024 1:00am June 18, 2024 10:08am As directed Start: 06-18-2024 End: 06-18-2024 Blood-Glucose Meter (Onetouc h Ultra2 Meter) mis Discontinued 0 .Route June 18, 2024 12:00am June 18, 2024 9:08am As directed cholecalciferol 0.05 mg oral capsule (15 sources) Vitamin D Start: 09-05-2023 take 1 capsule by mouth once daily Cholecalciferol (Vitamin D3) 50 mcg (2,000 unit) capsule Active 100 MCG PO Daily September 05, 2023 12:00am Complies with drug therapy Start: 12-19-2022 take 1 capsule by [facility] every week Cholecalciferol 1.25 MG (64781 UT) 1 capsule Orally weekly for 56 days Then D3 OtC 4000 UT daily Dec, Active take 1 capsule by [facility] every week Cholecalciferol 100 MCG (4000 UT) 1 capsule Orally weekly for 56 days Then D3 OtC 4000 UT daily Active take 1 capsule by [facility] every week Cholecalciferol 1.25 MG (64472 UT) 1 capsule Orally weekly for 56 [...] tablet Active 10 MG PO Daily 90 90 September 10, 2023 8:43am Complies with drug therapy Start: 02-03-2022 take 1 tablet by [facility] every twenty-four hours Farxiga 5 MG [...] has coupon card Active Flash Glucose Scanning Benton (Freestyle Roberta 2 Benton) misc (16 sources) Start: 09-07-2023 Flash Glucose Scanning Benton (Freestyle Roberta 2 Benton) misc Active 0 .MEDSUPPLY September 07, 2023 12:58pm As directed to monitor blood sugar Start: 09-07-2023 Flash Glucose Scanning Benton (Freestyle Roberta 2 Benton) misc Active 0 .MEDSUPPLY September 07, 2023 1:58pm As directed to monitor blood sugar Start: 09-07-2023 End: 09-07-2023 Flash Glucose Scanning Reade r (Freestyle Roberta 2 Benton) misc Discontinued 0 .MEDSUPPLY September 06, 2023 11:00pm September 07, 2023 1:01pm As directed Start: 09-07-2023 End: 09-07-2023 Flash Glucose Scanning Reade r (Freestyle Roberta 2 Benton) misc Discontinued 0 .MEDSUPPLY September 07, 2023 [...] 2 Sensor) kit Discontinued EACH .ROUTE .MEDSUPPLY 1 September 04, 2023 11:00pm March 24, 2024 9:36am As directed Start: 09-05-2023 Flash Glucose Sensor (Freestyle Roberta 2 Sensor) kit Active EACH .ROUTE .MEDSUPPLY 1 September 05, 2023 12:00am As directed FreeStyle Roberta 2 Benton - (20 sources) Start: 08-24-2021 FreeStyle Libr e 2 Benton - as directed SQ 5 x day [...] insulin aspart, human 100 unt/ml pen injector (20 sources) Insulin Analog Start: 01-21-2024 insulin aspart , niacinamide, 100 unit/mL (3 mL) insulin pen 01/21/2024 Active Start: 01-21-2024 Insulin Aspart (Niacinamide) (Fiasp Flextouch U-100 Insulin) 100 unit/mL (3 mL) insulin pen Active 1 sliding scale dose SUBCUT Use as Directed January 21, 2024 12:00am Complies with drug therapy Start: 09-05-2023 End: 09-10-2023 Insulin Aspart U-100 [...] SUBCUT Every evening 45 October 09, 2024 11:50am titrate to 50 u once daily, has written instructions Complies with drug therapy Start: 04-23-2024 End: 10-09-2024 inject 60 [IU] [...] as directed by 30 patch 04/11/2024 Active OXcarbazepine 150 mg oral tablet (9 sources) Anti-epileptic Agent Start: 04-07-2024 End: 04-07-2025 take 1 tablet by mouth once daily Oxcarbazepine 150 mg tablet Active 150 MG PO Daily April 23, 2024 1:00am Complies with drug therapy ozempic (0.25 or 0.5 mg/dose) 2 mg/3ml solution pen-injector (4 sources) Ozempic (0.25 or 0.5 MG/DOSE) 2 MG/3ML 0.5 mg Subcutaneous weely for 90 days COPAY CARD Active pen needle, diabetic (Novofine 32) (8 sources) Start: 09-05-2023 pen needle, diabetic (Novofine [...] MG PO Daily September 05, 2023 12:00am Complies with drug therapy Semaglutide (13 sources) Start: 06-18-2024 inject 1 mg by subcutaneous injection every week Semaglutide (Ozempic) 1 mg/dose (4 mg/3 mL) pen injector Active 1 MG SUBCUT every week 3 June 18, 2024 10:37am patient will have BRAYDEN voucher information Complies with drug therapy Start: 06-18-2024 inject 1 mg by subcu taneous injection every week Start: 06-18-2024 inject 1 [...] June 18, 2024 9:37am patient will have BRAYEDN voucher information Start: 01-21-2024 End: 06-18-2024 inject [...] day Start: 06-11-2024 End: 06-18-2024 Insulin Lispro-Aabc (Sabas Zeng U-200 Insulin) 200 unit/mL (3 mL) insulin pen Discontinued 1 sliding scale dose SUBCUT Use as Directed June 11, 2024 12:00am June 18, 2024 8:53am ISS 1:40 ICR 1:10 ACHS TID. Expect up to 40 u per day lisinopril 2.5 mg oral tablet (18 sources) Angiotensin Converting Enzyme Inhibitor Start: 09-05-2023 End: 01-01-2025 take 1 tablet by mouth once daily Lisinopril 2.5 mg tablet Discontinued 2.5 MG PO Daily September 05, 2023 12:00am January 01, 2025 9:13am Start: 02-28-2023 take 1 tablet by [facility] [...] QID for 90 days Jun, Not-Taking Semaglutide (16 sources) Start: 09-10-2023 End: 04-23-2024 Semaglutide (Ozempic) [...] Semglee 100 UNIT/ML 45 units Subcutaneou s [facility] insurance changed from Lantus to [...] 11-01-2021 Chronic Gangrene (4 sources) Atherosclerosis of [place] arteries of extremities with gangrene, right leg; [...] Resolved: 11-01-2021 Chronic Open wounds of extremities (4 sources) Amputated big toe; 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, initial encounter] 10-09-2024 Chronic Other aftercare (17 sources) 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; Translations: [Long-term (current) use of insulin] Onset: 04-12-2020 Resolved: 11-21-2021 Episodic Other aftercare (20 sources) Long-term 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 insulin; Translations: [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] 09-05-2023 Episodic Other circulatory disease (1 source) Other specified symptoms and signs involving the circulatory and respiratory systems; Translations: [Other specified symptoms and signs involving the circulatory and respiratory systems] Onset: 10-07-2024 Episodic Other circulatory disease (7 sources) Low blood pressure; Translations: [Hypotension, unspecified] 10-09-2024 Episodic Other connective tissue disease (2 sources) Neuralgia; Translations: [Neuralgia and neuritis, unspecified] 04-07-2024 Episodic Other fractures (6 sources) Fracture of multiple ribs ; Translations: [...] Episodic Other nutritional; endocrine; and metabolic disorders (12 sources) Overweight in adulthood with body mass [...] requesting pt to be seen Onset: 09-25-2024 Unclassified (1 source) I10 - Essential (primary) hypertension,R80.9 - Proteinuria, unspecified Past or Other Problems Problem Classification Problem [...] Test Name Value Interpretation Reference Range Facility [facility] 11-12-2024 L Specimen: [id number] Received: 11/13/24 Status: SOHABrigitte Naz Num: [id number] Spec Type: Surgical Subm Dr: Mayra Spears,DPSaud, MS Tissues: A DIGIT AMPUTATION (BONE FROM R 2nd TOE) Procedures: HE/2, Gross/Micro L4, Decalcification Age/ Patient Sex Location Account Attending Physician Jassi Rodriguez 64/M LABELL [id number] Mayra Spears DPM, MS SPEC NUM: [id number] RECD: 11/13/24 STATUS: LORENA CHILDS NUM: [id number] SCOTT: 11/12/24 [facility] DR: Mayra Spears DPM, MS ENTERED: 11/13/[address]: Nehemais,Lab SPEC TYPE: Surgical DEPT: THANH MURRAY ENTERED BY: [id number] RECV BY: [id number] ORDERED: HE/2, Gross/Micro L4, Decalcification ORDERED: HE/2, [...] the soft tissue submitted in A2. (2, ss, [id number] A) CPT Codes 91168, 45973 Specimen: [id number] Received: 11/13/24 Status: LORENA Childs Num: [id number] Spec Type: Surgical Subm Dr: Mayra Spears DPM, MS Tissues: A DIGIT AMPUTATION (BONE FROM R 2nd TOE) Procedures: HE/2, Gross/Micro L4, Decalcification Patient: Jassi Rodriguez [id number] (Continued) Signed (signature on file) Uziel Lozano MD 11/18/24 1140 Normal [facility] No Panel InformationOrdered By: Mayra Spears on 10-29-2024 Miscellaneous Pathology Test See comment [facility] Comment on above: See report. Scanned copy available in EMR. Pathology Request for Lab Co rpon 10-29-2024 Pathology Request for Lab David Normal [facility] Comment on above: Order Comment: BONE 2ND RT TOE Result Comment: See report. Scanned copy available in EMR. PERFORMED BY: [facility] [address] [place] [address] PATHOLOGIST LEGAL STENOGRAPHER GOOD RIDDLE M.D. Performed By: #### P ATH TO [facility] #### [facility] [address] POCT BUN, CREATon 10-17-2024 Creatinine [Mass/Vol] 1.1 mg/dL Normal 0.7-1.2 [facility] Comment on above: Performed By: #### I BC #### [facility] [address] [place] [address] VIR GFR/1.73 sq M.predicted among non-blacks MDRD (S/P/Bld) [Vol rate/Area] 75 mL/min/{1.73_m2} Normal >=60 [facility] Comment on above: Result Comment: Repo rted eGFR is based on the CKD-EPI 2020 equation that does not use a race coefficient. Performed By: #### I BC #### [facility] ([facility] [address] [place] [address] VIR Urea nitrogen [Mass/Vol] 17 mg/dL Normal 6-27 [facility] Comment on above: Performed By: #### I BC #### [facility] ([facility] [address] [place] [address] VIR PORTABLE GLUCOSEon 5 Glucose [Mass/Vol] 89 mg/dL Normal 65-99 [facility] Comment on above: Performed By: #### I GLU #### [facility] [address] [place] [address] VIR HbA1c HPLC (Bld) [Mass fract ion]on 10-09-2024 HbA1c (Bld) [Mass fraction] 6.6 % [facility] No Panel Informationon 10-09 Bedside Glucose 123 [facility] Basophils Auto (Bld) [#/Vol] on 09-23-2024 Basophils (Bld) [#/Vol] Automated basophil count 0.0-0.1 [facility] Basophils (Bld) [#/Vol] 0.1 10 3/uL 0.0-0.1 [facility] Basophils/100 WBC Auto (Bld) on 09-23-2024 Basophils/100 WBC (Bld) Automated basophil % 0.2-2.0 [facility] Basophils/100 WBC (Bld) 0.7 % 0.2-2.0 [facility] Eosinophils/100 WBC Auto (Bl d)on 09-23-2024 Eosinophils/100 WBC (Bld) Automated eosinophil % Low 0.9-7.0 [facility] Eosinophils/100 WBC (Bld) 0.2 % Low 0.9-7.0 [facility] Erythrocyte distribution wid th Auto (RBC) [Ratio]on 09-23-2024 Erythrocyte distribution width (RBC) [Ratio] Erythrocyte distribution width [Ratio] by Automated count 11.0-15.0 [facility] Erythrocyte distribution width (RBC) [Ratio] 11.0 % 11.0-15.0 [facility] Estimated glomerular filtrat ion rate (GFR) non- Americanon 09-23-2024 GFR/1.73 sq M.predicted among non-blacks MDRD (S/P/Bld) [Vol rate/Area] Estimated glomerular filtration rate (GFR) non- >=60 mL/min/1.73m 2 [facility] GFR/1.73 sq M.predicted among non-blacks MDRD (S/P/Bld) [Vol rate/Area] mL/min/{1.73_m2} >=60 mL/min/1.73m 2 [facility] Globulin Calc (S) [Mass/Vol] on 09-23-2024 Globulin (S) [Mass/Vol] Serum globulin measurement by calculation (mass/volume) [facility] Globulin (S) [Mass/Vol] 5.6 g/dL [facility] Hematocrit Auto (Bld) [Volum e fraction]on 09-23-2024 Hematocrit (Bld) [Volume fraction] Hematocrit [Volume Fraction] of Blood by Automated count Low 42.0-54.0 [facility] Hematocrit (Bld) [Volume fraction] 34.7 % Low 42.0-54.0 [facility] Hemoglobin [Mass/volume] in Bloodon 09-23-2024 Hemoglobin (Bld) [Mass/Vol] Hemoglobin [Mass/volume] in Blood Low 14.0-18.0 [facility] Hemoglobin (Bld) [Mass/Vol] 11.9 g/dL Low 14.0-18.0 [facility] Gavino 09-23-2024 L Specimen: [id number] Received: 09/23/24 Status: LORENA Childs Num: [id number] Spec Type: Surgical Subm Dr: Mayra Spears,DPM, MS Tissues: A DIGIT AMPUTATION (RIGHT DISTAL PHALANX) B DIGIT AMPUTATION (RIGHT PROXIMAL PHALANX) Procedures: HE/3, Gross/Micro L4/2, Decalcification/2 Age/ Patient Sex Location Account Attending Physician Jassi Rodriguez 64/M LABELL [id number] Mayra Spears DPM, MS SPEC NUM: [id number] RECD: 09/23/24 STATUS: LORENA CHILDS NUM: [id number] SCOTT: 09/23/[address] [facility] [address]: Mayra Spears DPM, MS ENTERED: 09/23/[address]: Nehemias,Lab SPEC TYPE: Surgical DEPT: THANH MURRAY ENTERED BY: [id number] RECV BY: [id number] ORDERED: HE/3, Gross/Micro L4/2, Decalcification/2 ORDERED: HE/3, [...] cellulitis, dry gangrene right great toe Specimen: [id number] Received: 09/23/24 Status: LORENA Childs Num: [id number] Spec Type: Surgical Subm Dr: Mayra Spears,DPM, MS Tissues: A DIGIT AMPUTATION (RIGHT DISTAL PHALANX) B DIGIT AMPUTATION (RIGHT PROXIMAL PHALANX) Procedures: HE/3, Gross/Micro L4/2, Decalcification/2 Patient: Jassi Rodriguez SR [id number] (Continued) Specimen: [id number] Received: 09/23/24 (Continued) Signed (signature on file) Mingo Mejia MD 09/26/24 1340 Specimen: [id number] Received: 09/23/24 Status: LORENA Childs Num: [id number] Spec Type: Surgical Subm Dr: Mayra Spears,DPM, MS Tissues: A DIGIT AMPUTATION (RIGHT DISTAL PHALANX) B DIGIT AMPUTATION (RIGHT PROXIMAL PHALANX) Procedures: HE/3, Gross/Micro L4/2, Decalcification/2 Patient: Jassi Rodriguez [id number] (Continued) Specimen: [id number] Received: 09/23/24-1299 (Continued) Gross Description Part A [...] cm from the proximal skin margin. A personal banking representative section of the indurated area and underlying distal phalanx is submitted in A1 after decalcification with tangential cross-sections of the proximal skin margin submitted in A2. (2, ss, S26-281 A) Part B is received in formalin [...] submitted in B1 after decalcification. (1, , S26-281 B) Microscopic Description Microscopic examination is performed CPT Codes 75996d3 [id number] Specimen: [id number] Received: (more content not included)... Normal [facility] Laboratory - Chemistry and C hemistry - challengeon 09-23-2024 Albumin [Mass/Vol] 1.8 g/dL Low 3.4-5.0 [facility] ALP [Catalytic activity/Vol] 76 U/L 46-116 [facility] ALT [Catalytic activity/Vol] 15 U/L Low 16-63 [facility] AST [Catalytic activity/Vol] 22 U/L 15-37 [facility] Bilirubin [Mass/Vol] 0.3 mg/dL 0.2-1.0 [facility] Calcium [Mass/Vol] 9.0 mg/dL 8.5-10.1 [facility] Chloride [Moles/Vol] 103 mmol/L 98-107 [facility] CO2 [Moles/Vol] 26.0 mmol/L 21.0-32.0 [facility] Creatinine [Mass/Vol] 0.94 mg/dL 0.70-1.30 [facility] GFR/1.73 sq M.predicted MDRD (S/P/Bld) [Vol rate/Area] mL/min/{1.73_m2} >=60 mL/min/1.73m 2 [facility] Glucose [Mass/Vol] 124 mg/dL High 74-106 [facility] Potassium [Moles/Vol] 4.1 mmol/L 3.5-5.1 [facility] Protein [Mass/Vol] 7.4 g/dL 6.4-8.2 [facility] Sodium [Moles/Vol] 139 mmol/L 136-145 [facility] Urea nitrogen [Mass/Vol] 22.0 mg/dL High 7.0-18.0 [facility] Urea nitrogen/Creatinine [Mass ratio] 23.4 mg/mg [facility] Laboratory - Hematology and Cell countson 09-23-2024 Immature granulocytes/100 WBC (Bld) 0.3 % 0.0-0.5 [facility] Leukocytes [#/volume] correc markie for nucleated erythrocytes in Blood by Automated counon 09-23-2024 WBC corrected for nucl RBC Auto (Bld) [#/Vol] Leukocytes [#/volume] corrected for nucleated erythrocytes in Blood by Automated coun 4.0-11.0 [facility] WBC corrected for nucl RBC Auto (Bld) [#/Vol] 9.1 10 3/uL 4.0-11.0 [facility] Lymphocytes Auto (Bld) [#/Vo l]on 09-23-2024 Lymphocytes (Bld) [#/Vol] Lymphocytes [#/volume] in Blood by Automated count 1.2-3.8 [facility] Lymphocytes (Bld) [#/Vol] 1.6 10 3/uL 1.2-3.8 [facility] Lymphocytes/100 WBC Auto (Bl d)on 09-23-2024 Lymphocytes/100 WBC (Bld) Lymphocytes/100 leukocytes in Blood by Automated count Low 20.5-60.0 [facility] Lymphocytes/100 WBC (Bld) 17.6 % Low 20.5-60.0 [facility] MCH Auto (RBC) [Entitic mass ]on 09-23-2024 MCH (RBC) [Entitic mass] MCH [Entitic mass] by Automated count 25.9-34.0 [facility] MCH (RBC) [Entitic mass] 30.7 pg 25.9-34.0 [facility] MCHC Auto (RBC) [Mass/Vol]on 09-23-2024 MCHC (RBC) [Mass/Vol] MCHC [Mass/volume] by Automated count 29.9-35.2 [facility] MCHC (RBC) [Mass/Vol] 34.3 g/dL 29.9-35.2 [facility] MCV Auto (RBC) [Entitic vol] on 09-23-2024 MCV (RBC) [Entitic vol] MCV [Entitic volume] by Automated count 80.0-94.0 [facility] MCV (RBC) [Entitic vol] 89.7 fL 80.0-94.0 [facility] Monocytes Auto (Bld) [#/Vol] on 09-23-2024 Monocytes (Bld) [#/Vol] Automated blood monocyte count High 0.3-0.8 [facility] Monocytes (Bld) [#/Vol] 1.4 10 3/uL High 0.3-0.8 [facility] Monocytes/100 WBC Auto (Bld) on 09-23-2024 Monocytes/100 WBC (Bld) Automated monocyte % High 1.7-12.0 [facility] Monocytes/100 WBC (Bld) 15.6 % High 1.7-12.0 [facility] Neutrophils Auto (Bld) [#/Vo l]on 09-23-2024 Neutrophils (Bld) [#/Vol] Neutrophils [#/volume] in Blood by Automated count 1.4-6.5 [facility] Neutrophils (Bld) [#/Vol] 6.0 10 3/uL 1.4-6.5 [facility] Neutrophils/100 WBC Auto (Bl d)on 09-23-2024 Neutrophils/100 WBC (Bld) Automated neutrophil % 43.0-75.0 [facility] Neutrophils/100 WBC (Bld) 65.6 % 43.0-75.0 [facility] No Panel Informationon 09-23 C-Reactive Protein, Quantitative 3.19 mg/dL High <=0.50 [facility] Eosinophils # (Auto) 0.0 10 3/uL 0.0-0.7 [facility] Immature Granulocyte # (Auto) 0.03 10 3/uL 0.00-0.03 [facility] Platelet mean volume Auto (B ld) [Entitic vol]on 09-23-2024 Platelet mean volume (Bld) [Entitic vol] Platelet mean volume [Entitic volume] in Blood by Automated count 9.5-13.5 [facility] Platelet mean volume (Bld) [Entitic vol] 9.5 fL 9.5-13.5 [facility] Platelets Auto (Bld) [#/Vol] on 09-23-2024 Platelets (Bld) [#/Vol] Platelets [#/volume] in Blood by Automated count 150-450 [facility] Platelets (Bld) [#/Vol] 339 10 3/uL 150-450 [facility] RBC Auto (Bld) [#/Vol]on RBC (Bld) [#/Vol] Erythrocytes [#/volume] in Blood by Automated count Low 4.70-6.10 [facility] RBC (Bld) [#/Vol] 3.87 10 6/uL Low 4.70-6.10 [facility] Serum or plasma albumin/glob ulin mass ratioon 09-23-2024 Albumin/Globulin [Mass ratio] Serum or plasma albumin/globulin mass ratio [facility] Albumin/Globulin [Mass ratio] 0.3 {ratio} [facility] Serum or plasma anion gap de terminationon 09-23-2024 Anion gap [Moles/Vol] Serum or plasma anion gap determination [facility] Anion gap [Moles/Vol] 14.1 mmol/L [facility] Basophils Auto (Bld) [#/Vol] on 09-22-2024 Basophils (Bld) [#/Vol] Automated basophil count 0.0-0.1 [facility] Basophils (Bld) [#/Vol] 0.1 10 3/uL 0.0-0.1 [facility] Basophils/100 WBC Auto (Bld) on 09-22-2024 Basophils/100 WBC (Bld) Automated basophil % 0.2-2.0 [facility] Basophils/100 WBC (Bld) 0.6 % 0.2-2.0 [facility] Eosinophils/100 WBC Auto (Bl d)on 09-22-2024 Eosinophils/100 WBC (Bld) Automated eosinophil % Low 0.9-7.0 [facility] Eosinophils/100 WBC (Bld) 0.2 % Low 0.9-7.0 [facility] Erythrocyte distribution wid th Auto (RBC) [Ratio]on 09-22-2024 Erythrocyte distribution width (RBC) [Ratio] Erythrocyte distribution width [Ratio] by Automated count 11.0-15.0 [facility] Erythrocyte distribution width (RBC) [Ratio] 11.1 % 11.0-15.0 [facility] Estimated glomerular filtrat ion rate (GFR) non- Americanon 09-22-2024 GFR/1.73 sq M.predicted among non-blacks MDRD (S/P/Bld) [Vol rate/Area] Estimated glomerular filtration rate (GFR) non- >=60 mL/min/1.73m 2 [facility] GFR/1.73 sq M.predicted among non-blacks MDRD (S/P/Bld) [Vol rate/Area] mL/min/{1.73_m2} >=60 mL/min/1.73m 2 [facility] Globulin Calc (S) [Mass/Vol] on 09-22-2024 Globulin (S) [Mass/Vol] Serum globulin measurement by calculation (mass/volume) [facility] Globulin (S) [Mass/Vol] 5.4 g/dL [facility] Hematocrit Auto (Bld) [Volum e fraction]on 09-22-2024 Hematocrit (Bld) [Volume fraction] Hematocrit [Volume Fraction] of Blood by Automated count Low 42.0-54.0 [facility] Hematocrit (Bld) [Volume fraction] 33.8 % Low 42.0-54.0 [facility] Hemoglobin [Mass/volume] in Bloodon 09-22-2024 Hemoglobin (Bld) [Mass/Vol] Hemoglobin [Mass/volume] in Blood Low 14.0-18.0 [facility] Hemoglobin (Bld) [Mass/Vol] 11.8 g/dL Low 14.0-18.0 [facility] Laboratory - Chemistry and C hemistry - challengeon 09-22-2024 Albumin [Mass/Vol] 1.9 g/dL Low 3.4-5.0 [facility] ALP [Catalytic activity/Vol] 74 U/L 46-116 [facility] ALT [Catalytic activity/Vol] 15 U/L Low 16-63 [facility] AST [Catalytic activity/Vol] 20 U/L 15-37 [facility] Bilirubin [Mass/Vol] 0.4 mg/dL 0.2-1.0 [facility] Calcium [Mass/Vol] 8.7 mg/dL 8.5-10.1 [facility] Chloride [Moles/Vol] 102 mmol/L 98-107 [facility] CO2 [Moles/Vol] 23.7 mmol/L 21.0-32.0 [facility] Creatinine [Mass/Vol] 0.99 mg/dL 0.70-1.30 [facility] GFR/1.73 sq M.predicted MDRD (S/P/Bld) [Vol rate/Area] mL/min/{1.73_m2} >=60 mL/min/1.73m 2 [facility] Glucose [Mass/Vol] 87 mg/dL 74-106 [facility] Potassium [Moles/Vol] 4.4 mmol/L 3.5-5.1 [facility] Protein [Mass/Vol] 7.3 g/dL 6.4-8.2 [facility] Sodium [Moles/Vol] 137 mmol/L 136-145 [facility] Urea nitrogen [Mass/Vol] 21.0 mg/dL High 7.0-18.0 [facility] Urea nitrogen/Creatinine [Mass ratio] 21.2 mg/mg [facility] Laboratory - Hematology and Cell countson 09-22-2024 Immature granulocytes/100 WBC (Bld) 0.4 % 0.0-0.5 [facility] Leukocytes [#/volume] correc markie for nucleated erythrocytes in Blood by Automated counon 09-22-2024 WBC corrected for nucl RBC Auto (Bld) [#/Vol] Leukocytes [#/volume] corrected for nucleated erythrocytes in Blood by Automated coun 4.0-11.0 [facility] WBC corrected for nucl RBC Auto (Bld) [#/Vol] 9.6 10 3/uL 4.0-11.0 [facility] Lymphocytes Auto (Bld) [#/Vo l]on 09-22-2024 Lymphocytes (Bld) [#/Vol] Lymphocytes [#/volume] in Blood by Automated count 1.2-3.8 [facility] Lymphocytes (Bld) [#/Vol] 1.7 10 3/uL 1.2-3.8 [facility] Lymphocytes/100 WBC Auto (Bl d)on 09-22-2024 Lymphocytes/100 WBC (Bld) Lymphocytes/100 leukocytes in Blood by Automated count Low 20.5-60.0 [facility] Lymphocytes/100 WBC (Bld) 17.7 % Low 20.5-60.0 [facility] MCH Auto (RBC) [Entitic mass ]on 09-22-2024 MCH (RBC) [Entitic mass] MCH [Entitic mass] by Automated count 25.9-34.0 [facility] MCH (RBC) [Entitic mass] 31.3 pg 25.9-34.0 [facility] MCHC Auto (RBC) [Mass/Vol]on 09-22-2024 MCHC (RBC) [Mass/Vol] MCHC [Mass/volume] by Automated count 29.9-35.2 [facility] MCHC (RBC) [Mass/Vol] 34.9 g/dL 29.9-35.2 [facility] MCV Auto (RBC) [Entitic vol] on 09-22-2024 MCV (RBC) [Entitic vol] MCV [Entitic volume] by Automated count 80.0-94.0 [facility] MCV (RBC) [Entitic vol] 89.7 fL 80.0-94.0 [facility] Monocytes Auto (Bld) [#/Vol] on 09-22-2024 Monocytes (Bld) [#/Vol] Automated blood monocyte count High 0.3-0.8 [facility] Monocytes (Bld) [#/Vol] 1.2 10 3/uL High 0.3-0.8 [facility] Monocytes/100 WBC Auto (Bld) on 09-22-2024 Monocytes/100 WBC (Bld) Automated monocyte % High 1.7-12.0 [facility] Monocytes/100 WBC (Bld) 12.8 % High 1.7-12.0 [facility] Neutrophils Auto (Bld) [#/Vo l]on 09-22-2024 Neutrophils (Bld) [#/Vol] Neutrophils [#/volume] in Blood by Automated count High 1.4-6.5 [facility] Neutrophils (Bld) [#/Vol] 6.6 10 3/uL High 1.4-6.5 [facility] Neutrophils/100 WBC Auto (Bl d)on 09-22-2024 Neutrophils/100 WBC (Bld) Automated neutrophil % 43.0-75.0 [facility] Neutrophils/100 WBC (Bld) 68.3 % 43.0-75.0 [facility] No Panel Informationon 09-22 Vancomycin Level Trough 18.3 ug/mL 5.0-20.0 [facility] C-Reactive Protein, Quantitative 4.29 mg/dL High <=0.50 [facility] Eosinophils # (Auto) 0.0 10 3/uL 0.0-0.7 [facility] Immature Granulocyte # (Auto) 0.04 10 3/uL High 0.00-0.03 [facility] Platelet mean volume Auto (B ld) [Entitic vol]on 09-22-2024 Platelet mean volume (Bld) [Entitic vol] Platelet mean volume [Entitic volume] in Blood by Automated count 9.5-13.5 [facility] Platelet mean volume (Bld) [Entitic vol] 9.6 fL 9.5-13.5 [facility] Platelets Auto (Bld) [#/Vol] on 09-22-2024 Platelets (Bld) [#/Vol] Platelets [#/volume] in Blood by Automated count 150-450 [facility] Platelets (Bld) [#/Vol] 334 10 3/uL 150-450 [facility] RBC Auto (Bld) [#/Vol]on RBC (Bld) [#/Vol] Erythrocytes [#/volume] in Blood by Automated count Low 4.70-6.10 [facility] RBC (Bld) [#/Vol] 3.77 10 6/uL Low 4.70-6.10 [facility] Serum or plasma albumin/glob ulin mass ratioon 09-22-2024 Albumin/Globulin [Mass ratio] Serum or plasma albumin/globulin mass ratio [facility] Albumin/Globulin [Mass ratio] 0.4 {ratio} [facility] Serum or plasma anion gap de terminationon 09-22-2024 Anion gap [Moles/Vol] Serum or plasma anion gap determination [facility] Anion gap [Moles/Vol] 15.7 mmol/L Fi [facility] Basophils Auto (Bld) [#/Vol] on 09-21-2024 Basophils (Bld) [#/Vol] Automated basophil count 0.0-0.1 [facility] Basophils (Bld) [#/Vol] 0.1 10 3/uL 0.0-0.1 [facility] Basophils/100 WBC Auto (Bld) on 09-21-2024 Basophils/100 WBC (Bld) Automated basophil % 0.2-2.0 [facility] Basophils/100 WBC (Bld) 0.6 % 0.2-2.0 [facility] Eosinophils/100 WBC Auto (Bl d)on 09-21-2024 Eosinophils/100 WBC (Bld) Automated eosinophil % Low 0.9-7.0 [facility] Eosinophils/100 WBC (Bld) 0.2 % Low 0.9-7.0 [facility] Erythrocyte distribution wid th Auto (RBC) [Ratio]on 09-21-2024 Erythrocyte distribution width (RBC) [Ratio] Erythrocyte distribution width [Ratio] by Automated count 11.0-15.0 [facility] Erythrocyte distribution width (RBC) [Ratio] 11.3 % 11.0-15.0 [facility] Estimated glomerular filtrat ion rate (GFR) non- Americanon 09-21-2024 GFR/1.73 sq M.predicted among non-blacks MDRD (S/P/Bld) [Vol rate/Area] Estimated glomerular filtration rate (GFR) non- >=60 mL/min/1.73m 2 [facility] GFR/1.73 sq M.predicted among non-blacks MDRD (S/P/Bld) [Vol rate/Area] mL/min/{1.73_m2} >=60 mL/min/1.73m 2 [facility] Globulin Calc (S) [Mass/Vol] on 09-21-2024 Globulin (S) [Mass/Vol] Serum globulin measurement by calculation (mass/volume) [facility] Globulin (S) [Mass/Vol] 5.6 g/dL [facility] Hematocrit Auto (Bld) [Volum e fraction]on 09-21-2024 Hematocrit (Bld) [Volume fraction] Hematocrit [Volume Fraction] of Blood by Automated count Low 42.0-54.0 [facility] Hematocrit (Bld) [Volume fraction] 34.2 % Low 42.0-54.0 [facility] Hemoglobin [Mass/volume] in Bloodon 09-21-2024 Hemoglobin (Bld) [Mass/Vol] Hemoglobin [Mass/volume] in Blood Low 14.0-18.0 [facility] Hemoglobin (Bld) [Mass/Vol] 11.6 g/dL Low 14.0-18.0 [facility] Laboratory - Chemistry and C hemistry - challengeon 09-21-2024 Albumin [Mass/Vol] 1.9 g/dL Low 3.4-5.0 [facility] ALP [Catalytic activity/Vol] 79 U/L 46-116 [facility] ALT [Catalytic activity/Vol] 16 U/L 16-63 [facility] AST [Catalytic activity/Vol] 21 U/L 15-37 [facility] Bilirubin [Mass/Vol] 0.5 mg/dL 0.2-1.0 [facility] Calcium [Mass/Vol] 8.8 mg/dL 8.5-10.1 [facility] Chloride [Moles/Vol] 103 mmol/L 98-107 [facility] CO2 [Moles/Vol] 24.5 mmol/L 21.0-32.0 [facility] Creatinine [Mass/Vol] 1.18 mg/dL 0.70-1.30 [facility] GFR/1.73 sq M.predicted MDRD (S/P/Bld) [Vol rate/Area] mL/min/{1.73_m2} >=60 mL/min/1.73m 2 [facility] Glucose [Mass/Vol] 106 mg/dL 74-106 [facility] Potassium [Moles/Vol] 4.6 mmol/L 3.5-5.1 [facility] Protein [Mass/Vol] 7.5 g/dL 6.4-8.2 [facility] Sodium [Moles/Vol] 137 mmol/L 136-145 [facility] Urea nitrogen [Mass/Vol] 24.0 mg/dL High 7.0-18.0 [facility] Urea nitrogen/Creatinine [Mass ratio] 20.3 mg/mg [facility] Laboratory - Hematology and Cell countson 09-21-2024 Immature granulocytes/100 WBC (Bld) 0.5 % 0.0-0.5 [facility] Leukocytes [#/volume] correc markie for nucleated erythrocytes in Blood by Automated counon 09-21-2024 WBC corrected for nucl RBC Auto (Bld) [#/Vol] Leukocytes [#/volume] corrected for nucleated erythrocytes in Blood by Automated coun [facility] 4.0-11.0 [facility] WBC corrected for nucl RBC Auto (Bld) [#/Vol] 11.9 10 3/uL High 4.0-11.0 [facility] Lymphocytes Auto (Bld) [#/Vo l]on 09-21-2024 Lymphocytes (Bld) [#/Vol] Lymphocytes [#/volume] in Blood by Automated count 1.2-3.8 [facility] Lymphocytes (Bld) [#/Vol] 1.9 10 3/uL 1.2-3.8 [facility] Lymphocytes/100 WBC Auto (Bl d)on 09-21-2024 Lymphocytes/100 WBC (Bld) Lymphocytes/100 leukocytes in Blood by Automated count Low 20.5-60.0 [facility] Lymphocytes/100 WBC (Bld) 15.9 % Low 20.5-60.0 [facility] MCH Auto (RBC) [Entitic mass ]on 09-21-2024 MCH (RBC) [Entitic mass] MCH [Entitic mass] by Automated count 25.9-34.0 [facility] MCH (RBC) [Entitic mass] 30.8 pg 25.9-34.0 [facility] MCHC Auto (RBC) [Mass/Vol]on 09-21-2024 MCHC (RBC) [Mass/Vol] MCHC [Mass/volume] by Automated count 29.9-35.2 [facility] MCHC (RBC) [Mass/Vol] 33.9 g/dL 29.9-35.2 [facility] MCV Auto (RBC) [Entitic vol] on 09-21-2024 MCV (RBC) [Entitic vol] MCV [Entitic volume] by Automated count 80.0-94.0 [facility] MCV (RBC) [Entitic vol] 90.7 fL 80.0-94.0 [facility] Monocytes Auto (Bld) [#/Vol] on 09-21-2024 Monocytes (Bld) [#/Vol] Automated blood monocyte count High 0.3-0.8 [facility] Monocytes (Bld) [#/Vol] 1.5 10 3/uL High 0.3-0.8 [facility] Monocytes/100 WBC Auto (Bld) on 09-21-2024 Monocytes/100 WBC (Bld) Automated monocyte % High 1.7-12.0 [facility] Monocytes/100 WBC (Bld) 12.6 % High 1.7-12.0 [facility] Neutrophils Auto (Bld) [#/Vo l]on 09-21-2024 Neutrophils (Bld) [#/Vol] Neutrophils [#/volume] in Blood by Automated count High 1.4-6.5 [facility] Neutrophils (Bld) [#/Vol] 8.4 10 3/uL High 1.4-6.5 [facility] Neutrophils/100 WBC Auto (Bl d)on 09-21-2024 Neutrophils/100 WBC (Bld) Automated neutrophil % 43.0-75.0 [facility] Neutrophils/100 WBC (Bld) 70.2 % 43.0-75.0 [facility] No Panel Informationon 09-21 Eosinophils # (Auto) 0.0 10 3/uL 0.0-0.7 [facility] Immature Granulocyte # (Auto) 0.06 10 3/uL High 0.00-0.03 [facility] Platelet mean volume Auto (B ld) [Entitic vol]on 09-21-2024 Platelet mean volume (Bld) [Entitic vol] Platelet mean volume [Entitic volume] in Blood by Automated count 9.5-13.5 [facility] Platelet mean volume (Bld) [Entitic vol] 9.7 fL 9.5-13.5 [facility] Platelets Auto (Bld) [#/Vol] on 09-21-2024 Platelets (Bld) [#/Vol] Platelets [#/volume] in Blood by Automated count 150-450 [facility] Platelets (Bld) [#/Vol] 314 10 3/uL 150-450 [facility] RBC Auto (Bld) [#/Vol]on RBC (Bld) [#/Vol] Erythrocytes [#/volume] in Blood by Automated count Low 4.70-6.10 [facility] RBC (Bld) [#/Vol] 3.77 10 6/uL Low 4.70-6.10 [facility] Serum or plasma albumin/glob ulin mass ratioon 09-21-2024 Albumin/Globulin [Mass ratio] Serum or plasma albumin/globulin mass ratio [facility] Albumin/Globulin [Mass ratio] 0.3 {ratio} [facility] Serum or plasma anion gap de terminationon 09-21-2024 Anion gap [Moles/Vol] Serum or plasma anion gap determination [facility] Anion gap [Moles/Vol] 14.1 mmol/L Fi [facility] Basophils Auto (Bld) [#/Vol] on 09-20-2024 Basophils (Bld) [#/Vol] Automated basophil count 0.0-0.1 [facility] Basophils (Bld) [#/Vol] 0.1 10 3/uL 0.0-0.1 [facility] Basophils/100 WBC Auto (Bld) on 09-20-2024 Basophils/100 WBC (Bld) Automated basophil % 0.2-2.0 [facility] Basophils/100 WBC (Bld) 0.8 % 0.2-2.0 [facility] Eosinophils/100 WBC Auto (Bl d)on 09-20-2024 Eosinophils/100 WBC (Bld) Automated eosinophil % Low 0.9-7.0 [facility] Eosinophils/100 WBC (Bld) 0.0 % Low 0.9-7.0 [facility] Erythrocyte distribution wid th Auto (RBC) [Ratio]on 09-20-2024 Erythrocyte distribution width (RBC) [Ratio] Erythrocyte distribution width [Ratio] by Automated count 11.0-15.0 [facility] Erythrocyte distribution width (RBC) [Ratio] 11.2 % 11.0-15.0 [facility] Estimated glomerular filtrat ion rate (GFR) non- Americanon 09-20-2024 GFR/1.73 sq M.predicted among non-blacks MDRD (S/P/Bld) [Vol rate/Area] Estimated glomerular filtration rate (GFR) non- Low >=60 mL/min/1.73m 2 [facility] GFR/1.73 sq M.predicted among non-blacks MDRD (S/P/Bld) [Vol rate/Area] 52 mL/min/{1.73_m2} Low >=60 mL/min/1.73m 2 [facility] Globulin Calc (S) [Mass/Vol] on 09-20-2024 Globulin (S) [Mass/Vol] Serum globulin measurement by calculation (mass/volume) [facility] Globulin (S) [Mass/Vol] 6.6 g/dL [facility] Hematocrit Auto (Bld) [Volum e fraction]on 09-20-2024 Hematocrit (Bld) [Volume fraction] Hematocrit [Volume Fraction] of Blood by Automated count Low 42.0-54.0 [facility] Hematocrit (Bld) [Volume fraction] 41.1 % Low 42.0-54.0 [facility] Hemoglobin [Mass/volume] in Bloodon 09-20-2024 Hemoglobin (Bld) [Mass/Vol] Hemoglobin [Mass/volume] in Blood 14.0-18.0 [facility] Hemoglobin (Bld) [Mass/Vol] 14.0 g/dL 14.0-18.0 [facility] Laboratory - Chemistry and C hemistry - challengeon 09-20-2024 Albumin [Mass/Vol] 2.4 g/dL Low 3.4-5.0 [facility] ALP [Catalytic activity/Vol] 101 U/L 46-116 [facility] ALT [Catalytic activity/Vol] 25 U/L 16-63 [facility] AST [Catalytic activity/Vol] 28 U/L 15-37 [facility] Bilirubin [Mass/Vol] 0.7 mg/dL 0.2-1.0 [facility] Calcium [Mass/Vol] 9.6 mg/dL 8.5-10.1 [facility] Chloride [Moles/Vol] 99 mmol/L 98-107 [facility] CO2 [Moles/Vol] 28.1 mmol/L 21.0-32.0 [facility] Creatinine [Mass/Vol] 1.37 mg/dL High 0.70-1.30 [facility] GFR/1.73 sq M.predicted MDRD (S/P/Bld) [Vol rate/Area] mL/min/{1.73_m2} >=60 mL/min/1.73m 2 [facility] Glucose [Mass/Vol] 130 mg/dL High 74-106 [facility] Potassium [Moles/Vol] 4.5 mmol/L 3.5-5.1 [facility] Protein [Mass/Vol] 9.0 g/dL High 6.4-8.2 [facility] Sodium [Moles/Vol] 132 mmol/L Low 136-145 [facility] Urea nitrogen [Mass/Vol] 18.0 mg/dL 7.0-18.0 [facility] Urea nitrogen/Creatinine [Mass ratio] 13.1 mg/mg [facility] Laboratory - Hematology and Cell countson 09-20-2024 ESR (Bld) [Velocity] mm/h High <=20 [facility] Immature granulocytes/100 WBC (Bld) 0.3 % 0.0-0.5 [facility] Leukocytes [#/volume] correc markie for nucleated erythrocytes in Blood by Automated counon 09-20-2024 WBC corrected for nucl RBC Auto (Bld) [#/Vol] Leukocytes [#/volume] corrected for nucleated erythrocytes in Blood by Automated coun High 4.0-11.0 [facility] WBC corrected for nucl RBC Auto (Bld) [#/Vol] 11.9 10 3/uL High 4.0-11.0 [facility] Lymphocytes Auto (Bld) [#/Vo l]on 09-20-2024 Lymphocytes (Bld) [#/Vol] Lymphocytes [#/volume] in Blood by Automated count 1.2-3.8 [facility] Lymphocytes (Bld) [#/Vol] 1.9 10 3/uL 1.2-3.8 [facility] Lymphocytes/100 WBC Auto (Bl d)on 09-20-2024 Lymphocytes/100 WBC (Bld) Lymphocytes/100 leukocytes in Blood by Automated count Low 20.5-60.0 [facility] Lymphocytes/100 WBC (Bld) 15.9 % Low 20.5-60.0 [facility] MCH Auto (RBC) [Entitic mass ]on 09-20-2024 MCH (RBC) [Entitic mass] MCH [Entitic mass] by Automated count 25.9-34.0 [facility] MCH (RBC) [Entitic mass] 30.8 pg 25.9-34.0 [facility] MCHC Auto (RBC) [Mass/Vol]on 09-20-2024 MCHC (RBC) [Mass/Vol] MCHC [Mass/volume] by Automated count 29.9-35.2 [facility] MCHC (RBC) [Mass/Vol] 34.1 g/dL 29.9-35.2 [facility] MCV Auto (RBC) [Entitic vol] on 09-20-2024 MCV (RBC) [Entitic vol] MCV [Entitic volume] by Automated count 80.0-94.0 [facility] MCV (RBC) [Entitic vol] 90.5 fL 80.0-94.0 [facility] Monocytes Auto (Bld) [#/Vol] on 09-20-2024 Monocytes (Bld) [#/Vol] Automated blood monocyte count High 0.3-0.8 [facility] Monocytes (Bld) [#/Vol] 1.4 10 3/uL High 0.3-0.8 [facility] Monocytes/100 WBC Auto (Bld) on 09-20-2024 Monocytes/100 WBC (Bld) Automated monocyte % High 1.7-12.0 [facility] Monocytes/100 WBC (Bld) 12.1 % High 1.7-12.0 [facility] Neutrophils Auto (Bld) [#/Vo l]on 09-20-2024 Neutrophils (Bld) [#/Vol] Neutrophils [#/volume] in Blood by Automated count High 1.4-6.5 [facility] Neutrophils (Bld) [#/Vol] 8.5 10 3/uL High 1.4-6.5 [facility] Neutrophils/100 WBC Auto (Bl d)on 09-20-2024 Neutrophils/100 WBC (Bld) Automated neutrophil % 43.0-75.0 [facility] Neutrophils/100 WBC (Bld) 70.9 % 43.0-75.0 [facility] No Panel Informationon 09-20 C-Reactive Protein, Quantitative 6.32 mg/dL High <=0.50 [facility] Eosinophils # (Auto) 0.0 10 3/uL 0.0-0.7 [facility] Immature Granulocyte # (Auto) 0.04 10 3/uL High 0.00-0.03 [facility] Platelet mean volume Auto (B ld) [Entitic vol]on 09-20-2024 Platelet mean volume (Bld) [Entitic vol] Platelet mean volume [Entitic volume] in Blood by Automated count 9.5-13.5 [facility] Platelet mean volume (Bld) [Entitic vol] 9.5 fL 9.5-13.5 [facility] Platelets Auto (Bld) [#/Vol] on 09-20-2024 Platelets (Bld) [#/Vol] Platelets [#/volume] in Blood by Automated count 150-450 [facility] Platelets (Bld) [#/Vol] 401 10 3/uL 150-450 [facility] RBC Auto (Bld) [#/Vol]on RBC (Bld) [#/Vol] Erythrocytes [#/volume] in Blood by Automated count Low 4.70-6.10 [facility] RBC (Bld) [#/Vol] 4.54 10 6/uL Low 4.70-6.10 [facility] Serum or plasma albumin/glob ulin mass ratioon 09-20-2024 Albumin/Globulin [Mass ratio] Serum or plasma albumin/globulin mass ratio [facility] Albumin/Globulin [Mass ratio] 0.4 {ratio} [facility] Serum or plasma anion gap de terminationon 09-20-2024 Anion gap [Moles/Vol] Serum or plasma anion gap determination [facility] Anion gap [Moles/Vol] 9.4 mmol/L [facility] Creatinine [Mass/volume] in UrineOrdered By: Yolette Pierre on 06-18-2024 Creatinine (U) [Mass/Vol] Creatinine [Mass/volume] in Urine [facility] Comment on above: No reference range e stablished MicroAlb Creat Ratio,Uon Albumin DL <= 20 mg/L (U) [Mass/Vol] mg/dL High 0.0-1.8 [facility] Comment on above: Performed By: #### U RMACRERAT #### [facility] [address] Creatinine, Urine (Random) 123.00 mg/dL Normal [facility] Comment on above: Result Comment: No r eference range established Performed By: #### U RMACRERAT #### [facility] [address] Microalbumin/Creatinin e Ratio Not performed Normal 0.0-30.0 [facility] Comment on above: Result Comment: PERF ORMED BY: [facility] [address] [place] [address] PATHOLOGIST LEGAL STENOGRAPHER JAMIL BONILLA M.D. Performed By: #### U RMACRERAT #### [facility] [address] Microalbumin [Mass/volume] i n UrineOrdered By: Yolette Pierre on 06-18-2024 Albumin DL <= 20 mg/L (U) [Mass/Vol] Microalbumin [Mass/volume] in Urine High 0.0-1.8 [facility] Urine microalbumin/creatinin e mass ratioOrdered By: Yolette Pierre on 06-18-2024 Albumin/Creatinine DL <= 20 mg/L (U) [Mass ratio] Urine microalbumin/creatin ine mass ratio [facility] Comment on above: Test not performed HbA1c HPLC (Bld) [Mass fract ion]on 04-23-2024 HbA1c (Bld) [Mass fraction] Hemoglobin A1c/Hemoglobin.total in Blood by HPLC [facility] No Panel Informationon 04-23 Bedside Glucose [address] [facility] [address] ABDOMEN WO CONTon 024 CT ABDOMEN [...] Camarena MD on 04/11/2024 11:15 AM Normal [facility] CT CHEST WO CONTon CT [...] Guido MD on 04/11/2024 11:15 AM Normal [facility] HbA1c HPLC (Bld) [Mass fract ion]on 09-10-2023 HbA1c (Bld) [Mass fraction] 6.4 % [facility] No Panel Informationon 09-09 Bedside Glucose 126 [facility] A1C HEMOGLOBINon 06-05-2023 HbA1c (Bld) [Mass fraction] 6.9 % [employer] Other Glucose - FINGER STICKon Glucose [Mass/Vol] 132 mg/dL [employer] Other HbA1c (Bld) [Mass fraction]o n 06-05-2023 A1C HEMOGLOBIN [employer] Other A1C HEMOGLOBINon 02-27-2023 HbA1c (Bld) [Mass fraction] 6.4 % [employer] Other Creatinine [Mass/volume] in UrineOrdered By: Yolette Pierre on 02-27-2023 Creatinine (U) [Mass/Vol] 89.0 mg/dL 14.0-26.0 [facility] Glucose - FINGER STICKon Glucose [Mass/Vol] 132 mg/dL [employer] Other HbA1c (Bld) [Mass fraction]o n 02-27-2023 A1C HEMOGLOBIN [employer] Other [employer] Creat Ratio,Uon Creatinine (U) [Mass/Vol] 89.6696317 mg/dL High 14.0-26.0 mg/dL [employer] Other [employer] Creat Ratio,UOrdere d By: Yolette Pierre on 02-27-2023 Albumin DL <= 20 mg/L (U) [Mass/Vol] mg/dL 0.0-1.8 [facility] Albumin/Creatinine DL <= 20 mg/L (U) [Mass ratio] TNP [facility] Comment on above: Test not performed Glucose - FINGER STICKon Glucose [Mass/Vol] 160 mg/dL [employer] Other A1C HEMOGLOBINon 10-03-2022 HbA1c (Bld) [Mass fraction] 7.0 % [employer] Other Glucose - FING[employer]on Glucose [Mass/Vol] 88 mg/dL [place] [employer] Other HbA1c (Bld) [Mass fraction]o n 10-03-2022 A1C HEMOGLOBIN [place] [employer] Other Glucose - FINGER STICKon Glucose [Mass/Vol] 137 mg/dL [place] [employer] Other A1C HEMOGLOBINon 05-05-2022 HbA1c (Bld) [Mass fraction] 7.5 % [place] [employer] Other Glucose - FINGER STICKon Glucose [Mass/Vol] 199 mg/dL [place] [employer] Other HbA1c (Bld) [Mass fraction]o n 05-05-2022 A1C HEMOGLOBIN [place] [facility] [employer] Other A1C HEMOGLOBINon 02-03-2022 HbA1c (Bld) [Mass fraction] 7.7 % [place] [employer] Other Glucose - FINGER STICKon Glucose - FINGER STICK [facility] [employer] Other A1C HEMOGLOBINon 11-01-2021 HbA1c (Bld) [Mass fraction] 8.1 % [place] [employer] Other Glucose - FINGER STICKon Glucose [Mass/Vol] 232 mg/dL [place] [employer] Other HbA1c (Bld) [Mass fraction]o n 11-01-2021 A1C HEMOGLOBIN [place] [facility] [employer] Other A1C HEMOGLOBINon 07-20-2021 HbA1c (Bld) [Mass fraction] 8.0 % [place] [employer] Other Glucose - FINGER STICKon Glucose [Mass/Vol] 159 mg/dL [place] [employer] Other HbA1c (Bld) [Mass fraction]o n 07-20-2021 A1C HEMOGLOBIN [place] [facility] [employer] Other ACETONE SERUMon 04-08-2020 ACETONE SMALL Normal NEGATIVE [facility] Comment on above: Performed By: #### A CETON ####[facility] [address], [place] [address]Fpzsld Karen BNPon 04-08-2020 Natriuretic peptide B (Bld) [Mass/Vol] 72.0 pg/mL Normal <=900.0 [facility] Comment on above: Performed By: #### C MP, TSH, TROP, BNP #### [facility] [address], [place] [address] Kishaunruly Teresa CBC AUTO DIFFon 04-08-2020 Basophils (Bld) [#/Vol] 0.0 103/ul Normal 0.0-0.1 [facility] Comment on above: Performed By: #### C BC #### [facility] [address] [address] Kisha Teresa Basophils/100 WBC (Bld) 0.4 % Normal 0.2-2.0 [facility] Comment on above: Performed By: #### C BC #### [facility] [address], [place] [address] Kishaunruly Costelloen Eosinophils (Bld) [#/Vol] 0.0 103/ul Normal 0.0-0.7 [facility] Comment on above: Performed By: #### C BC #### [facility] [address], [place] [address] Kisha Teresa Eosinophils/100 WBC (Bld) 0.0 % Critically low 0.9-7.0 [facility] Comment on above: Performed By: #### C BC #### [facility] [address], [place] [address] Kisha Teresa Erythrocyte distribution width (RBC) [Ratio] 13.3 % Normal 11.0-15.0 [facility] Comment on above: Performed By: #### C BC #### [facility] [address] [id number] Kishaunruly Teresa Hematocrit (Bld) [Volume fraction] 45.3 % Normal 42.0-54.0 [facility] Comment on above: Performed By: #### C BC #### [facility] [address] [id number] Kisha Brii Hemoglobin (Bld) [Mass/Vol] 15.9 g/dL Normal 14.0-18.0 [facility] Comment on above: Performed By: #### C BC #### [facility] [address] [id number] Kisha Brii IG # 0.03 10e3/ul Normal 0.00-0.03 [facility] Comment on above: Performed By: #### C BC #### [facility] [address] [phone] Kisha Brii IG % 0.6 % Critically high 0.0-0.5 [facility] Comment on above: Performed By: #### C BC #### [facility] [address] [place], [place] [phone] Kisha Brii Lymphocytes (Bld) [#/Vol] 1.8 103/ul Normal 1.2-3.8 [facility] Comment on above: Performed By: #### C BC #### [facility] [address] [place], [place] [phone] Kisha Brii Lymphocytes/100 WBC (Bld) 37.3 % Normal 20.5-60.0 [facility] Comment on above: Performed By: #### C BC #### [facility] [address] [place], [place] [phone] Kisha Brii MANUAL DIFF REQ NO Normal [facility] Comment on above: Performed By: #### C BC #### [facility] [address] [place], [place] [phone] Kisha Brii MCH (RBC) [Entitic mass] 31.4 pg Normal 25.9-34.0 [facility] Comment on above: Performed By: #### C BC #### [facility] [address] [place], [place] [phone] Kisha Brii MCHC (RBC) [Mass/Vol] 35.1 g/dL Normal 29.9-35.2 [facility] Comment on above: Performed By: #### C BC #### [facility] [address] [place], [place] [address] Kisha Brii MCV (RBC) [Entitic vol] 89.3 fL Normal 80.0-94.0 [facility] [place] [facility] Comment on above: Performed By: #### C BC #### [facility] [address], [place] [address] Kisha Brii Monocytes (Bld) [#/Vol] 0.7 103/ul Normal 0.3-0.8 [facility] Comment on above: Performed By: #### C BC #### [facility] [address] [phone] Kisha Brii Monocytes/100 WBC (Bld) 14.5 % Critically high 1.7-12.0 [facility] Comment on above: Performed By: #### C BC #### [facility] [address] [place], [place] [phone] Kisha Brii Neutrophils (Bld) [#/Vol] 2.3 103/ul Normal 1.4-6.5 [facility] Comment on above: Performed By: #### C BC #### [facility] [address] [place], [place] [phone] Kisha Brii Neutrophils/100 WBC (Bld) 47.2 % Normal 43.0-75.0 [facility] Comment on above: Performed By: #### C BC #### [facility] [address] [place], [place] [phone] Kisha Brii Platelet mean volume (Bld) [Entitic vol] 11.7 fL Normal 9.5-13.5 [facility] Comment on above: Performed By: #### C BC #### [facility] [address] [place] [address] Kisha Brii Platelets (Bld) [#/Vol] 157 103/ul Normal 150-450 [facility] Comment on above: Performed By: #### C BC #### [facility] [address] [place], [place] [phone] Kisha Brii RBC (Bld) [#/Vol] 5.07 106/ul Normal 4.70-6.10 [facility] Comment on above: Performed By: #### C BC #### [facility] [address], [place] [address] Kisha Teresa WBC (Bld) [#/Vol] 4.9 103/ul Normal 4.0-11.0 [facility] Comment on above: Performed By: #### C #### [facility] [address], [place] [address] Kisha Teresa CTA CHEST WO W CONon [...] by: NORY WAN Date: 2020-04-08 12:41 Normal [facility] D-DIMERon 04-08-2020 D-DIMER COMMENTS SEE BELOW Normal [facility] Comment on above: Result Comment: Incr [...] Performed By: #### D DIM, PTT, PT ####[facility] [address], [place] [address]Wuedmi Brii Fibrin D-dimer FEU IA (Bld) [Mass/Vol] 1.16 ug/mL Critically high 0.19-0.50 [facility] [place] [facility] Comment on above: Result Comment: test repeated critcal value verified Performed By: #### D DIM, PTT, PT ####[facility] [address], [place] [address]Oerjjb Brii PH VENOUS BLOODon 04-08-2020 PCO2 VENOUS 46.4 mmHg Normal 40.0-52.0 [facility] [place] [facility] Comment on above: Performed By: #### P HVEN #### [facility] [address] [address] Kisha Brii pH VENOUS 7.37 Normal 7.33-7.43 [facility] [place] [facility] Comment on above: Performed By: #### P HVEN #### [facility] [address] [place] [address] Kisha Teresa PROF 14(COMP METB)on 020 Albumin [Mass/Vol] 2.4 g/dL Critically low 3.5-5.0 [facility] Comment on above: Performed By: #### C MP, TSH, TROP, BNP #### [facility] [address] [place], [place] [phone] Kisha Brii Albumin/Globulin [Mass ratio] 0.4 {ratio} Normal [facility] [place] [facility] Comment on above: Performed By: #### C MP, TSH, TROP, BNP #### [facility] [address] [place] [address] Kisha Brii ALP [Catalytic activity/Vol] 68 U/L Normal 38-126 [facility] Comment on above: Performed By: #### C MP, TSH, TROP, BNP #### [facility] [address] [place] [address] Kisha Brii ALT [Catalytic activity/Vol] 33 U/L Normal 21-72 [facility] [place] [facility] Comment on above: Performed By: #### C MP, TSH, TROP, BNP #### [facility] [address] [phone] Kisha Brii Anion gap [Moles/Vol] 10.1 mmol/L Normal [facility] Comment on above: Performed By: #### C MP, TSH, TROP, BNP #### [facility] [address] [address] Kisha Brii AST [Catalytic activity/Vol] 50 U/L Normal 17-59 [facility] Comment on above: Performed By: #### C MP, TSH, TROP, BNP #### [facility] [address] [address] Kisha Brii Bilirubin Ql (U) 0.9 mg/dL Normal 0.2-1.3 [facility] Comment on above: Performed By: #### C MP, TSH, TROP, BNP #### [facility] [address] [address] Kisha Brii Calcium [Mass/Vol] 8.7 mg/dL Normal 8.4-10.2 [facility] Comment on above: Performed By: #### C MP, TSH, TROP, BNP #### [facility] [address] [address] Kisha Brii Chloride [Moles/Vol] 96 mmol/L Critically low 98-107 [facility] Comment on above: Performed By: #### C MP, TSH, TROP, BNP #### [facility] [address] [address] Kisha Brii CO2 [Moles/Vol] 27.9 mmol/L Normal 22.0-30.0 [facility] Comment on above: Performed By: #### C MP, TSH, TROP, BNP #### [facility] [address] [address] Kisha Brii Creatinine [Mass/Vol] 1.13 mg/dL Normal 0.66-1.25 [facility] [place] [facility] Comment on above: Performed By: #### C MP, TSH, TROP, BNP #### [facility] [address] [phone] Kisha Brii EGFR-AF BENINESE >60 Normal >=60 [facility] Comment on above: Performed By: #### C MP, TSH, TROP, BNP #### [facility] [address] [address] Kisha Brii EGFR-NON AF BENINESE >60 Normal >=60 [facility] [place] [facility] Comment on above: Performed By: #### C MP, TSH, TROP, BNP #### [facility] [address] [place] [address] Kisha Brii Globulin (S) [Mass/Vol] 5.8 g/dL Normal [facility] [place] [facility] Comment on above: Performed By: #### C MP, TSH, TROP, BNP #### [facility] [address] [place] [address] Kisha Brii Glucose [Mass/Vol] 263 mg/dL Critically high 74-106 T [facility] Comment on above: Performed By: #### C MP, TSH, TROP, BNP #### [facility] [address] [place] [address] Kisha Brii Potassium [Moles/Vol] 3.0 mmol/L Critically low 3.4-5.0 [facility] [place] [facility] Comment on above: Performed By: #### C MP, TSH, TROP, BNP #### [facility] [address] [place] [address] Kisha Brii Protein [Mass/Vol] 8.2 g/dL Normal 6.1-8.2 [facility] Comment on above: Performed By: #### C MP, TSH, TROP, BNP #### [facility] [address] [place] [address] Kisha Brii Sodium [Moles/Vol] 131 mmol/L Critically low 137-145 Th [facility] Comment on above: Performed By: #### C MP, TSH, TROP, BNP #### [facility] [address] [place] [address] Kisha Brii Urea nitrogen [Mass/Vol] 15.0 mg/dL Normal 9.0-20.0 [facility] [place] [facility] Comment on above: Performed By: #### C MP, TSH, TROP, BNP #### [facility] [address] [place] [address] Kisha Brii Urea nitrogen/Creatinine [Mass ratio] 13.3 mg/mg Normal [facility] [place] [facility] Comment on above: Performed By: #### C MP, TSH, TROP, BNP #### [facility] [address], [place] [address] Kisha Teresa PROTIMEon 04-08-2020 INR Coag (PPP) [Relative time] 1.03 {INR} Normal [facility] Comment on above: Performed By: #### D DIM, PTT, PT ####[facility] [address], [place] [address]EacyqnKisha Teresa PT Coag (PPP) [Time] 10.9 s Normal 9.0-11.6 [facility] [place] [facility] Comment on above: Performed By: #### D DIM, PTT, PT ####[facility] [address], [place] [address]ExxxncKisha Teresa PT Coag (PPP) [Time] SEE BELOW Normal [facility] Comment on above: Result Comment: PIO RED INR: 2.0 - 3.0 CONDITIONS NOT LISTED BELOW 2.5 - 3.5 FOR PROSTHETIC HEART VALVE REPLACEMENT 2.5 - 3.5 RECURRENT THROMBOSIS Performed By: #### D DIM, PTT, PT ####[facility] [address], [place] [address]KxxczdKisha Teresa PTTon 04-08-2020 aPTT Coag (Bld) [Time] PLEASE NOTE: NORM AL RANGE CHANGE 03-31-2015 DUE TO REAGENT LOT CHANGE Normal [facility] Comment on above: Performed By: #### D DIM, PTT, PT #### [facility] [address], [place] [address] Kisha Teresa aPTT Coag (Bld) [Time] 26.7 s Normal 22.3-36.2 Th [facility] Comment on above: Performed By: #### D DIM, PTT, PT #### [facility] [address], [place] [address] Kisha Teresa Rapid Covid-19 PCR (CVDRPD)o n 04-08-2020 [employer] LDT Info SEE BELOW Normal [facility] Comment on above: Result Comment: This test is not yet approved or cleared by the [place] Food and Drug Administration (FDA) . This test was developed by [employer], [place]. The performance characteristics of this test were validated by [facility]. The results are not intended to be used as the sole means for clinical diagnosis or patient management decisions. [facility] is authorized under Clinical Laboratory Improvement Amendments (CLIA) to perform high-complexity testing. When diagnostic testing is negative, the possibility of a false negative should be considered in the context of a patients recent exposures and the presence of clinical signs and symptoms consistent with SARS-CoV-2. Performed By: #### C VDRPD #### [facility] [address] [place] [address] SARS-CoV-2 DETECTED NOT DETECTED [facility] Comment on above: Result Comment: . Performed By: #### C VDRPD #### [facility] [address] [place] [address] TROPONIN - Ion 04-08-2020 Troponin I.cardiac [Mass/Vol] SEE BELOW Normal [facility] Comment on above: Result Comment: <0.0 34 ng/ml NEGATIVE 0.034-0.119 INDETERMINATE 0.120 AMI CUT OFF Performed By: #### C MP, TSH, TROP, BNP #### [facility] [address] [place] [address] Troponin I.cardiac [Mass/Vol] ng/mL Normal <=0.034 [facility] [place] [facility] Comment on above: Performed By: #### C MP, TSH, TROP, BNP #### [facility] [address] [place] [address] Kisha Brii TSHon 04-08-2020 TSH Qn 2.851 uIU/mL Normal 0.470-4.680 [facility] Comment on above: Performed By: #### C MP, TSH, TROP, BNP #### [facility] [address] [place] [address] TSH Qn SEE BELOW Normal [facility] Comment on above: Result Comment: <0.3 4 UIU/ml HYPERTHYROID 0.34-5.60 UIU/ml EUTHYROID >5.60 UIU/ml HYPOTHYROID Performed By: #### C MP, TSH, TROP, BNP #### [facility] [address] [address] Kisha Teresa XR CHEST 1 Von 04-08-2020 [...] NORY WAN Date: 2020-04-08 11:49 Normal [facility] Vital Signs Date Time Vital Sign Value Performing Clinician Faci lity 01-01-2025 09:05-0400 Body height 173.99 cm Yolette Pierre DATA ENTRY SUPERVISOR Work Phone: [facility] 01-01-2025 09:05-0400 Body mass index (BMI) [Ratio] 24.8 kg/m2 Yolette Segally DATA ENTRY SUPERVISOR Work Phone: [facility] 01-01-2025 09:05-0400 Body weight 75.2 kg Yolette Pierre DATA ENTRY SUPERVISOR Work Phone: [facility] 01-01-2025 09:05-0400 Diastolic blood pressure 90 mm[Hg] Yolette Segally DATA ENTRY SUPERVISOR Work Phone: [facility] 01-01-2025 09:05-0400 Heart rate 81 /min Yolette Segally DATA ENTRY SUPERVISOR Work Phone: [facility] 01-01-2025 09:05-0400 Respiratory rate 18 /min Yolette Pierre DATA ENTRY SUPERVISOR Work Phone: [facility] 01-01-2025 09:05-0400 SaO2% (BldA) [Mass fraction] 100 % Yolette Scally DATA ENTRY SUPERVISOR Work Phone: [facility] 01-01-2025 09:05-0400 Systolic blood pressure 136 mm[Hg] Yolette Pierre DATA ENTRY SUPERVISOR Work Phone: [facility] 10-23-2024 10:55-0400 Body height 175.3 cm Jamil Culver MD Work Phone: [facility] 10-23-2024 10:55-0400 Body mass index (BMI) [Ratio] 23.63 kg/m2 Jamil Culver MD Work Phone: [facility] 10-23-2024 10:55-0400 Body weight 72.58 kg Jamil Culver MD Work Phone: [facility] 10-23-2024 10:55-0400 Diastolic blood pressure 76 mm[Hg] Jamil Culver MD Work Phone: [facility] 10-23-2024 10:55-0400 Heart rate 72 /min Jamil Culver MD Work Phone: [facility] 10-23-2024 10:55-0400 Systolic blood pressure 112 mm[Hg] Jamil Culver MD Work Phone: [facility] 10-09-2024 08:41-0400 Body height 173.99 cm Mayra Spears DPM Work Phone: [facility] 10-09-2024 08:41-0400 Body mass index (BMI) [Ratio] 24 kg/m2 Mayra Spears DPM Work Phone: [facility] 10-09-2024 08:41-0400 Body weight 72.6 kg Mayra Spears DPM Work Phone: [facility] 10-09-2024 08:41-0400 Diastolic blood pressure 66 mm[Hg] Mayra Spears DPM Work Phone: [facility] 10-09-2024 08:41-0400 Heart rate 88 /min Mayra Spears DPM Work Phone: [facility] 10-09-2024 08:41-0400 Respiratory rate 18 /min Mayra Spears DPM Work Phone: [facility] 10-09-2024 08:41-0400 SaO2% (BldA) [Mass fraction] 98 % Mayra Spears DPM Work Phone: [facility] 10-09-2024 08:41-0400 Systolic blood pressure 91 mm[Hg] Mayra Spears DPM Work Phone: [facility] 06-18-2024 08:41-0500 Body height 173.[address] [facility] 06-18-2024 08:41-0500 Body mass index (BMI) [Ratio] 26.9 kg/m2 [facility] 06-18-2024 08:41-0500 Body weight 81.[address] [facility] 06-18-2024 08:41-0500 Diastolic blood pressure 86 mm[Hg] [facility] 06-18-2024 08:41-0500 Heart rate 74 /min [facility] 06-18-2024 08:41-0500 Respiratory rate 18 /min [facility] 06-18-2024 08:41-0500 SaO2% (BldA) [Mass fraction] 99 % [facility] 06-18-2024 08:41-0500 Systolic blood pressure 138 mm[Hg] [facility] 04-23-2024 09:26-0500 Body height 173.[address] [facility] 04-23-2024 09:26-0500 Body mass index (BMI) [Ratio] 26.8 kg/m2 [facility] 04-23-2024 09:26-0500 Body weight 81.[address] [facility] 04-23-2024 09:26-0500 Diastolic blood pressure 98 mm[Hg] [facility] 04-23-2024 09:26-0500 Heart rate 83 /min [facility] 04-23-2024 09:26-0500 Respiratory rate 18 /min [facility] 04-23-2024 09:26-0500 SaO2% (BldA) [Mass fraction] 98 % [facility] 04-23-2024 09:26-0500 Systolic blood pressure 142 mm[Hg] [facility] 04-07-2024 08:17-0500 Body height 175.3 cm Christopher Edi DO Work Phone: [facility] 04-07-2024 08:17-0500 Body mass index (BMI) [Ratio] 26.11 kg/m2 Christopher Edi DO Work Phone: [facility] 04-07-2024 08:17-0500 Body weight 80.2 kg Christopher Edi DO Work Phone: [facility] 04-07-2024 08:17-0500 Diastolic blood pressure 88 mm[Hg] Christopher Edi DO Work Phone: [facility] 04-07-2024 08:17-0500 Heart rate 84 /min Christopher Edi DO Work Phone: [facility] 04-07-2024 08:17-0500 SaO2% (BldA) [Mass fraction] 98 % Christopher Edi DO Work Phone: [facility] 04-07-2024 08:17-0500 Systolic blood pressure 150 mm[Hg] Christopher Edi DO Work Phone: [facility] 01-21-2024 09:58-0400 Body height 173.[address] [facility] 01-21-2024 09:58-0400 Body mass index (BMI) [Ratio] 25.5 kg/m2 [facility] 01-21-2024 09:58-0400 Body weight 77.[address] [facility] 01-21-2024 09:58-0400 Diastolic blood pressure 91 mm[Hg] [facility] 01-21-2024 09:58-0400 Heart rate 82 /min [facility] 01-21-2024 09:58-0400 Respiratory rate 18 /min [facility] 01-21-2024 09:58-0400 SaO2% (BldA) [Mass fraction] 99 % [facility] 01-21-2024 09:58-0400 Systolic blood pressure 137 mm[Hg] [facility] 09-10-2023 08:17-0400 Body height 173.[address] [facility] 09-10-2023 08:17-0400 Body mass index (BMI) [Ratio] 26.9 kg/m2 [facility] 09-10-2023 08:17-0400 Body weight 81.[address] [facility] 09-10-2023 08:17-0400 Diastolic blood pressure 91 mm[Hg] [facility] 09-10-2023 08:17-0400 Heart rate 87 /min [facility] 09-10-2023 08:17-0400 Respiratory rate 18 /min [facility] 09-10-2023 08:17-0400 SaO2% (BldA) [Mass fraction] 99 % [facility] 09-10-2023 08:17-0400 Systolic blood pressure 134 mm[Hg] [facility] 06-05-2023 09:15-0500 Body height 173.99 cm Yolette Scally Other [facility] 06-05-2023 09:15-0500 Body mass index (BMI) [Ratio] 25.9 kg/m2 Yolette Scally Other [employer] [facility] [employer] Other 06-05-2023 09:15-0500 Body weight 78.43 kg Yolette Scally Other [employer] [facility] [employer] Other 06-05-2023 09:15-0500 Body weight 78.42 kg MD Annie Rodgers Work Phone: [facility] 06-05-2023 09:15-0500 Diastolic blood pressure 83 mm[Hg] Yolette Scally Other [facility] 06-05-2023 09:15-0500 Respiratory rate 18 /min Yolette Scally Other [employer] Other 06-05-2023 09:15-0500 SaO2% (BldA) [Mass fraction] 99 % Yolette Scally Other [employer] Other 06-05-2023 09:15-0500 Systolic blood pressure 119 mm[Hg] Yolette Scally Other [facility] 02-27-2023 10:45-0400 Body height 173.99 cm Yolette Scally Other [employer] Other 02-27-2023 10:45-0400 Body mass index (BMI) [Ratio] 26.07 kg/m2 Yolette Scally Other [employer] Other 02-27-2023 10:45-0400 Body weight 78.93 kg Yolette Scally Other [employer] Other 02-27-2023 10:45-0400 Diastolic blood pressure 86 mm[Hg] Yolette Scally Other [employer] Other 02-27-2023 10:45-0400 Respiratory rate 18 /min Yolette Scally Other [employer] Other 02-27-2023 10:45-0400 SaO2% (BldA) [Mass fraction] 99 % Yolette Scally Other [employer] Other 02-27-2023 10:45-0400 Systolic blood pressure 126 mm[Hg] Yolette Scally Other [employer] Other 12-19-2022 08:45-0400 Body height 173.99 cm Yolette Scally Other [employer] Other 12-19-2022 08:45-0400 Body mass index (BMI) [Ratio] 26.37 kg/m2 Yolette Scally Other [employer] Other 12-19-2022 08:45-0400 Body weight 79.83 kg Yolette Scally Other [employer] Other 12-19-2022 08:45-0400 Diastolic blood pressure 95 mm[Hg] Yolette Scally Other [employer] Other 12-19-2022 08:45-0400 Respiratory rate 18 /min Yolette Scally Other [employer] Other 12-19-2022 08:45-0400 SaO2% (BldA) [Mass fraction] 98 % Yolette Scally Other [employer] Other 12-19-2022 08:45-0400 Systolic blood pressure 149 mm[Hg] Yoltete Scally Other [employer] Other 10-03-2022 08:15-0400 Body height 173.99 cm Yolette Scally Other [employer] Other 10-03-2022 08:15-0400 Body mass index (BMI) [Ratio] 27.3 kg/m2 Yolette Scally Other [employer] Other 10-03-2022 08:15-0400 Body weight 82.65 kg Yolette Scally Other [employer] Other 10-03-2022 08:15-0400 Diastolic blood pressure 90 mm[Hg] Yolette Scally Other [employer] Other 10-03-2022 08:15-0400 Respiratory rate 18 /min Yolette Scally Other [employer] Other 10-03-2022 08:15-0400 SaO2% (BldA) [Mass fraction] 99 % Yolette Scally Other [employer] Other 10-03-2022 08:15-0400 Systolic blood pressure 142 mm[Hg] Yolette Scally Other [employer] Other 07-24-2022 10:30-0400 Body height 173.99 cm Annie Rodgers Other [employer] Other 07-24-2022 10:30-0400 Body mass index (BMI) [Ratio] 27.72 kg/m2 Annie Rodgers Other [employer] Other 07-24-2022 10:30-0400 Body weight 83.92 kg Annie Rodgers Other [employer] Other 07-24-2022 10:30-0400 Diastolic blood pressure 80 mm[Hg] Annie Rodgers Other [employer] Other 07-24-2022 10:30-0400 SaO2% (BldA) [Mass fraction] 97 % Annie Rodgers Other [employer] Other 07-24-2022 10:30-0400 Systolic blood pressure 130 mm[Hg] Annie Rodgers Other [employer] Other 06-28-2022 09:00-0500 Body height 175.26 cm Yolette Scally Other [employer] Other 06-28-2022 09:00-0500 Body mass index (BMI) [Ratio] 27.98 kg/m2 Yolette Scally Other [employer] Other 06-28-2022 09:00-0500 Body weight 85.96 kg Yolette Scally Other [employer] Other 06-28-2022 09:00-0500 Diastolic blood pressure Yolette Scally Other [employer] Other 06-28-2022 09:00-0500 Respiratory rate 18 /min Yolette Scally Other [employer] Other 06-28-2022 09:00-0500 SaO2% (BldA) [Mass fraction] 98 % Yolette Scally Other [employer] Other 06-28-2022 09:00-0500 Systolic blood pressure 116 mm[Hg] Yolette Scally Other [employer] Other 05-05-2022 09:15-0500 Body height 175.26 cm Yolette Scally Other [employer] Other 05-05-2022 09:15-0500 Body mass index (BMI) [Ratio] 28.84 kg/m2 Yolette Scally Other [employer] Other 05-05-2022 09:15-0500 Body weight 88.59 kg Yolette Scally Other [employer] Other 05-05-2022 09:15-0500 Diastolic blood pressure 67 mm[Hg] Yolette Scally Other [employer] Other 05-05-2022 09:15-0500 Respiratory rate 18 /min Yolette Scally Other [employer] Other 05-05-2022 09:15-0500 SaO2% (BldA) [Mass fraction] 97 % Oylette Scally Other [employer] Other 05-05-2022 09:15-0500 Systolic blood pressure 96 mm[Hg] Yolette Scally Other [employer] Other 02-03-2022 09:30-0400 Body height 175.26 cm Yolette Scally Other [employer] Other 02-03-2022 09:30-0400 Body mass index (BMI) [Ratio] 28.14 kg/m2 Yolette Scally Other [employer] Other 02-03-2022 09:30-0400 Body weight 86.46 kg Yolette Scally Other [employer] Other 02-03-2022 09:30-0400 Diastolic blood pressure 94 mm[Hg] Yolette Scally Other [employer] Other 02-03-2022 09:30-0400 Respiratory rate 18 /min Yolette Scally Other [employer] Other 02-03-2022 09:30-0400 SaO2% (BldA) [Mass fraction] 99 % Yolette Scally Other [employer] Other 02-03-2022 09:30-0400 Systolic blood pressure 141 mm[Hg] Yolette Scally Other [employer] Other 11-01-2021 10:15-0400 Body height 175.26 cm Yolette Scally Other [employer] Other 11-01-2021 10:15-0400 Body mass index (BMI) [Ratio] 27.76 kg/m2 Yolette Scally Other [employer] Other 11-01-2021 10:15-0400 Body weight 85.28 kg Yolette Scally Other [employer] Other 11-01-2021 10:15-0400 Diastolic blood pressure 92 mm[Hg] Yolette Scally Other [employer] Other 11-01-2021 10:15-0400 Respiratory rate 18 /min Yolette Scally Other [employer] Other 11-01-2021 10:15-0400 SaO2% (BldA) [Mass fraction] 99 % Yolette Scally Other [employer] Other 11-01-2021 10:15-0400 Systolic blood pressure 123 mm[Hg] Yolette Scally Other [employer] Other 07-20-2021 09:45-0400 Body height 175.26 cm Yolette Scally Other [employer] Other 07-20-2021 09:45-0400 Body mass index (BMI) [Ratio] 27.85 kg/m2 Yolettegibran Segally Other [employer] Other 07-20-2021 09:45-0400 Body weight 85.55 kg Yolette Segally Other [employer] Other 07-20-2021 09:45-0400 Diastolic blood pressure 93 mm[Hg] Yolette Philipply Other [employer] Other 07-20-2021 09:45-0400 Respiratory rate 20 /min Yolette Scally Other [employer] Other 07-20-2021 09:45-0400 SaO2% (BldA) [Mass fraction] 100 % Yolette Philipply Other [employer] Other 07-20-2021 09:45-0400 Systolic blood pressure 139 mm[Hg] Yolette Philipply Other [employer] Other Encounters Encounter Date Encounter Type Care Provider Facility Start: 01-01-2025 End: 01-01-2025 ambulatory NON STAFF [facility] Work Phone: Start: 01-01-2025 End: 01-01-2025 Patient encounter procedure Yolette Pierre DATA ENTRY SUPERVISOR -[facility] Work Phone: Start: 11-12-2024 End: 11-12-2024 ambulatory Francisco Walters DISCHARGE DOOR OPERATOR-C Work Phone: [facility] Work Phone: Start: 11-12-2024 End: 11-12-2024 Departed Referred Mayra Spears DPM [facility] -[facility] Start: 10-29-2024 End: 10-29-2024 ambulatory Francisco Walters DISCHARGE DOOR OPERATOR-C Work Phone: 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 Start: 09-25-2024 End: 09-25-2024 ambulatory [facility] Start: 09-24-2024 Non-patient / Non-visit Mayra Spears DPM Work Phone: [facility] Work Phone: Start: 09-23-2024 End: 09-23-2024 ambulatory Mayra Spears Facility:[facility] Start: 09-23-2024 End: 09-23-2024 Departed Referred Mayra Spears DPM Work Phone: [facility] Start: 09-23-2024 Non-patient / Non-visit Mayra Spears DPM Work Phone: [facility] Work Phone: Start: 09-22-2024 Non-patient / Non-visit Mayra Spears DPM Work Phone: [facility] Work Phone: Start: 09-21-2024 Non-patient / Non-visit Mayra Spears DPM Work Phone: [facility] Work Phone: Start: 09-20-2024 Non-patient / Non-visit Mayra Spears DPM Work Phone: [facility] Work Phone: Start: 06-18-2024 End: 06-18-[address] [facility] Work Phone: Start: 06-18-2024 End: 06-18-2024 Departed Referred Yolette Gabby DATA ENTRY SUPERVISOR Work Phone: [facility] [place] Work Phone: Start: 06-18-2024 End: 06-18-2024 ambulatory [facility] Work Phone: Start: 06-18-2024 End: 06-18-2024 Patient encounter procedure [facility] Work Phone: Start: 04-23-2024 End: 04-23-2024 Patient encounter procedure [facility] Work Phone: Start: 04-11-2024 End: 04-11-2024 Emergency department patient visit [facility] Start: 04-07-2024 End: 04-07-2024 Bamboo flowsheet Melanie Daley DO Work Phone: [facility] Start: 04-07-2024 End: 04-07-2024 Bamboo flowsheet Gurjitarleth Murrayett DO [facility] Start: 04-07-2024 End: 04-07-2024 Office outpatient new 45 minutes Melanie Daley DO Work Phone: [facility] Comment on above: Neuralgia (Primary D x); DDD (degenerative disc disease), cervical Start: 04-07-2024 End: 04-07-2024 ambulatory YOLIMARCOS EDI Not Available Start: 01-21-2024 End: 01-21-2024 ambulatory [facility] Work Phone: Start: 01-21-2024 End: 01-21-2024 Patient encounter procedure [facility] Work Phone: Start: 09-10-2023 End: 09-10-2023 ambulatory [facility] Work Phone: Start: 09-10-2023 End: 09-10-2023 Patient encounter procedure [facility] Work Phone: Start: 06-07-2023 End: 06-07-2023 ambulatory Yolette Philippbereket Other [facility] [employer] Other Start: 06-07-2023 Telephone encounter [facility] Start: 06-05-2023 (DM) Diabetes Yolette Mcfarland [facility] Start: 06-05-2023 End: 06-05-2023 ambulatory MD Annie Rodgers Work Phone: [facility] [employer] Other Start: 06-05-2023 End: 06-05-2023 Discharged Recurring MD Annie Rodgers Work Phone: [facility] Work Phone: Start: 06-05-2023 End: 06-05-2023 Patient encounter procedure MD Annie Rodgers Work Phone: [facility]- Start: 05-18-2023 End: 05-18-2023 ambulatory Yolette Scally Other [employer] Other Start: 05-18-2023 Telephone encounter Yolette Scally [facility] Start: 02-28-2023 End: 02-28-2023 ambulatory Yolette Scally Other [employer] Other Start: 02-28-2023 Telephone encounter Yolette Scally [facility] Start: 02-27-2023 (DM) Diabetes Yolette Scally [facility] Start: 02-27-2023 End: 02-27-2023 ambulatory Yolette Scally Other [employer] Other Start: 12-19-2022 (DM) Diabetes Yolette Scally [facility] Start: 12-19-2022 End: 12-19-2022 ambulatory Yolette Scally Other [employer] Other Start: 12-07-2022 End: 12-07-2022 ambulatory Yolette Scally Other [employer] Other Start: 12-07-2022 Telephone encounter Yolette Scally [facility] Start: 10-03-2022 (DM) Diabetes Yolette Scally [facility] Start: 10-03-2022 End: 10-03-2022 ambulatory Yolette Scally Other [employer] Other Start: 10-03-2022 Telephone encounter Yolette Scally [facility] Start: 07-24-2022 End: 07-24-2022 ambulatory Annie Rodgers Other [employer] Other Start: 03-20-2023 Office outpatient ne w 30 minutes Annie Rodgers [facility] Start: 07-04-2022 End: 07-04-2022 ambulatory Yolette Scally Other [employer] Other Start: 07-04-2022 Telephone encounter Yolette Philipply [facility] Start: 06-28-2022 (DM) Diabetes Yolette Scally [facility] Start: 06-28-2022 End: 06-28-2022 ambulatory Yolette Scally Other [employer] Other Start: 06-26-2022 End: 06-26-2022 ambulatory Yolette Scally Other [employer] Other Start: 06-26-2022 Telephone encounter Yolette Scally [facility] Start: 06-19-2022 End: 06-19-2022 ambulatory Yolette Scally Other [employer] Other Start: 06-19-2022 Telephone encounter Yolette Scally [facility] Start: 05-05-2022 (DM) Diabetes Yolette Scally [facility] Start: 05-05-2022 End: 05-05-2022 ambulatory Yolette Scally Other [employer] Other Start: 03-27-2022 End: 03-27-2022 ambulatory Yolette Scally Other [employer] Other Start: 03-27-2022 Telephone encounter Yolette Scally [facility] Start: 02-03-2022 (DM) Diabetes Yolette Scally [facility] Start: 02-03-2022 End: 02-03-2022 ambulatory Yolette Scally Other [employer] Other Start: 11-21-2021 End: 11-21-2021 ambulatory Yolette Scally Other [employer] Other Start: 11-21-2021 Telephone encounter Yolette Scally [facility] Start: 11-11-2021 End: 11-11-2021 ambulatory Yolette Scally Other [employer] Other Start: 11-11-2021 Telephone encounter Yolette Scally [facility] Start: 11-01-2021 (DM) Diabetes Yolette Scally [facility] Start: 11-01-2021 End: 11-01-2021 ambulatory Yolette Scally Other [employer] Other Start: 10-24-2021 End: 10-24-2021 ambulatory Yolette Scally Other [employer] Other Start: 10-24-2021 Telephone encounter Yolette Scally [facility] Start: 09-13-2021 End: 09-13-2021 ambulatory Yolette Scally Other [employer] Other Start: 09-13-2021 Telephone encounter Yolette Scally [facility] Start: 08-23-2021 End: 08-23-2021 ambulatory Yolette Scally Other [employer] Other Start: 08-23-2021 Telephone encounter Yolette Scally [facility] Start: 08-04-2021 End: 08-04-2021 ambulatory Yolette Scally Other [employer] Other Start: 08-04-2021 Telephone encounter Yolette Scally [facility] Start: 07-20-2021 (DM) Diabetes Yolette Scally [facility] Start: 07-20-2021 End: 07-20-2021 ambulatory Yolette Pierre Other [facility] [employer] Other Start: 04-08-2020 End: 04-08-2020 Patient encounter procedure MARCEL PAIZ Facility: Procedures Date Procedure Procedure Detail Performing Clinician History of amputatio n of lesser toe H/O amputation of lesser toe Mayra Spears DPM Work Phone: Comment on above: right great toe Plan of Treatment Date Care Activity Detail Author Start: 10-23-2025 Adult BMI Screening Adult BMI Screen ing [facility] Start: 04-11-2025 Tobacco Screening Tobacco Screening [facility] Start: 01-05-2025 Influenza vaccination Influenza Vacc ine [facility] Start: 01-01-2025 Patient referral [facility] Work Phone: Start: 10-29-2024 [facility] Start: 04-07-2024 End: 04-07-2024 Patient encounter procedure 04/07/2024 8:30 AM EST [facility] [address] [place] [id number] Melanie Daley DO [address] [place], [place] [id number] [facility] Comment on above: Arrived Start: 2011 Administration of varicella zoster vaccine Zoster (Shingles) Vaccine (1 of 2) [facility] Start: 02-06-1980 DTaP,Tdap and Td Vac cines (1 - Tdap) DTaP,Tdap and Td Vaccines (1 - Tdap) [facility] Start: 1973 Depression Screening Depression Scre shantel [facility] Comprehensive metabo lic 1999 panel - Serum or Plasma [facility] Comprehensive metabo lic 1999 panel - Serum or Plasma [facility] Patient referral [facility] Work Phone: [facility] Payers Date Payer Category Payer Self-pay [id number] 2024 Medicare HMO [employer]ICARE [id number] 2024 Medicare [id number] 2022 Medicare (Managed Care) [facility]LY [facility] [id number] 2022 Medicare [id number] 1960 Unknown [id number] 1961 Unknown [id number]. 1259 1961 Unknown [id number]. 1286 1961 Unknown [id number]. 1286 1961 Unknown [id number]. 1286 1961 Unknown [id number] [id number]. 1286 1961 Unknown [id number] [id number]. 1286 1959 Unknown [id number] Medicare [id number] Unknown [id number] 531 Unknown [id number]. 531 Unknown [id number]. 531 Unknown [id number] 531 Social History Date Type Detail Facility Unknown if ever smoked [employer] Other Start: 06-17-2020 End: 04-11-2024 Sex Assigned At [employer] Other Start: 1960 Sex Assigned At Male [facility] Start: 09-10-2023 End: 01-01-2025 Tobacco smoking status [facility] Ex-smoker (finding) [facility] Tobacco smoking status [facility] Tobacco smoking consumption unknown [facility] Start: 1960 Sex assigned at Not on file N [facility] Start: 12-10-2014 End: 06-18-2024 Sex Male (finding) [facility] History of tobacco use Current smoker [facility] Start: 04-11-2024 Alcoholic beverage intake Current drinker of alcohol (finding) [facility] Start: 06-17-2020 End: 04-11-2024 Alcoholic beverage intake [facility] Childcare Unknown [facility] Medical Equipment Procedure Code Equipment [...] and follow up with us as needed. [facility] 10-23-2024 Miscellaneous Notes Associate d Problem(s): Critical limb ischemia of right lower extremity with gangrene (CMS-HCC) He has no significant occlusive disease. Plan is to continue to work with podiatry and follow up with us as needed. documented in this encounter [facility] 10-23-2024 History of Presen t illness [...] Diagnosis Date Diabetes mellitus type 2, controlled ([facility]) Hyperlipidemia Hypertension Past Surgical History: Past Surgical History: Procedure Laterality Date lower ext angio Right 10/17/2024 Performed by Jamil Culver MD at [facility] Social and Family History: [...] Jamil Culver MD, RADHA, RPVI, FSVS, FACS [facility] [employer] This note was created with the assistance of a speech recognition program. While intending to generate a timely document that accurately reflects the content of the visit, no guarantee can be provided that every grammatical or spelling mistake has been or will be identified or corrected. Thank you for your understanding. documented in this encounter [facility] 10-09-2024 Evaluation note Diagnosis Onset Date Resolution BMI 25.0-25.9,adult acute October 09, 2024 8:20am Dietary counseling and surveillance acute October 09, 2024 8:20am HTN (hypertension) acute October 092024 8:20am Hyperlipidemia acute October 09, 2024 8:20am Hypotension acute October 09 8:20am FDC 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 insulin acute October 09, 2024 8:20am Persistent albuminuria acute 2024 8:20am Type 2 diabetes mellitus with hyperglycemia acute October 09 8:20am Vitamin D deficiency acute October 09, 2024 8:20am [facility] Work Phone: 1(779) 713-803206-05-2025 Evaluation note* Diagnosis Onset Date Resolution Status Admit Date BMI 25.0-25.9,adult acute October 09, 2024 8:20am Dietary counseling and surveillance acute October 09, 2024 8 :20am HTN (hypertension) acute October 092024 8:20am Hyperlipidemia acute October 09, 2024 8:20am Hypotension acute October 09 8:20am FDC 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 insulin acu te October 09, 2024 8:20am Persistent albuminuria acute 2024 8:20am Type 2 diabetes mellitus wit h hyperglycemia acute October 09, 2024 8 :20am Vitamin D deficiency acute October 09, 2024 8:20am BMI 25.0-25.9,adult acute Augus t 2024 9:00am Dietary counseling and surveillance acute January 01 9:00am HTN (hypertension) acute January 01, 2025 9:00am Hyperlipidemia acute December 9:00am Hypotension acute January 01, 2025 9:00am FDC 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 insulin acu te January 01, 2025 9:00am Persistent albuminuria acute Au kamala 2024 9:00am Type 2 diabetes mellitus wit h hyperglycemia acute January 01 9:00am Vitamin D deficiency acute Augu st 2024 9:00am [facility] Work Phone: 1(513) 690-819312-18-2024 Evaluation note* Diagnosis Onset Date Resolution Status Admit Date BMI 25.0-25.9,adult acute Decem viji 2023 8:54am Dietary counseling and surveillance acute April 23 8:54am HTN (hypertension) acute Decemb er 2023 8:54am Hyperlipidemia acute April 062023 8:54am termite treater 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 insulin acute April 23 8:54am Persistent albuminuria acute De cember 2023 8:54am Type 2 diabetes mellitus wit h hyperglycemia acute April 23 8:54am Vitamin D deficiency acute Dece mber 2023 8:54am BMI 25.0-25.9,adult acute Febru jennie 2024 8:25am Dietary counseling and surveillance acute June 18 8:25am HTN (hypertension) acute Februa ry 2024 8:25am Hyperlipidemia acute June 072024 8:25am FDC 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 insulin acute June 18 8:25am Persistent albuminuria acute Fe bruary 2024 8:25am Type 2 diabetes mellitus wit h hyperglycemia acute June 18 8:25am Vitamin D deficiency acute Febr uary 2024 8:25am [facility] Work Phone: 1(413) 432-376812-02-2024 History of Present illness Narrative* Melanie Daley, [...] , wrist extensors , wrist flexor , refractory tile helper strength 5/5. LUE Strength deltoid , biceps , triceps , wrist extensors , wrist flexor , refractory tile helper strength 5/5. RLE Strength illopsoas, quadriceps, tibialis [...] reflex 2+ . Christy's sign negative. Coordination: [id number] testing and rapid alternating movements are normal [...] plan, and return instructions [id number] Evaluation note* Encounter Date Diagnosis Assessment Notes Treatment Notes Treatment Clinical Notes Jun, Type 2 diabetes mellitus with hyperglycemia (ICD-10 - E11.65) [employer] Other 01-30-2024 Evaluation note* Encounter Date Diagnosis [...] continue BP good. ESTABLISH WITH PCP May, FDC 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 insulin (ICD-10 - Z79.4) May, Persistent albuminuria (ICD-10 - R80.9) Failed Jardiance, Tolerating Farxiga, increase Lisinopril last visit and tolerating. CANNOT PRODUCE URINE SAMPLE tODAY, LAB ORDER SENT TO FOLLOWUP. If persistent albuminuria could consider nephrology. Discussed management of glycemia and high blood pressure to protect kidneys. May, Albuminuria (ICD-10 - R80.9) May, BMI 25.0-25.9,adult (ICD-10 - Z68.25) [employer] Other 10-25-2023 Evaluation note* Encounter Date Diagnosis Assessment Notes Treatment Notes Treatment Clinical Notes Feb, Albuminuria (ICD-10 - R80.9) [employer] Other 10-24-2023 Evaluation note* Encounter Date Diagnosis [...] BP good. 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 If cannot tolerate class medications or persistent albuminuria could consider nephrology. Repeat microalbuminuria after Farxiga. Discussed management of glycemia and high blood pressure to protect kidneys. Feb, BMI 26.0-26.9,adult (ICD-10 - Z68.26) Feb, Albuminuria (ICD-10 - R80.9) [employer] Other 08-15-2023 Evaluation note* Encounter Date Diagnosis [...] published to portal slightly above goal Dec, termite treater 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 insulin (ICD-10 - Z79.4) Dec, Persistent albuminuria (ICD-10 - R80.9) Failed Jardiance, will do trial of Farxiga. If cannot tolerate class medications or persistent albuminuria could consider nephrology. Repeat microalbuminuria after Farxiga. Discussed management of glycemia and high blood pressure to protect kidneys. Dec, BMI 27.0-27.9,adult (ICD-10 - Z68.27) [employer] Other 05-30-2023 Evaluation note* Encounter Date Diagnosis [...] to portal slightly above goal September, termite treater 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 insulin (ICD-10 - Z79.4) September, Persistent albuminuria (ICD-10 - R80.9) Failed Jardiance, will do trial of Farxiga. If cannot tolerate class medications or persistent albuminuria could consider nephrology. Repeat microalbuminuria after Farxiga. Discussed management of glycemia and high blood pressure to protect kidneys. September, BMI 27.0-27.9,adult (ICD-10 - Z68.27) [employer] Other 03-20-2023 Evaluation note* Encounter Date Diagnosis Assessment Notes Treatment Notes Treatment Clinical Notes Jul, Hyperlipidemia (ICD-10 - E78.5) will refill med and check labs today. Jul, Type 2 diabetes mellitus with hyperglycemia (ICD-10 - E11.65) Continued followup with diabetes clinic. Pt states he hasn't had an eye exam for 2 years - advised followup [employer] Other 02-22-2023 Evaluation note* Encounter Date Diagnosis [...] Instructions material was published to portal Jun, FDC 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 insulin (ICD-10 - Z79.4) Jun, BMI 28.0-28.9,adult (ICD-10 - Z68.28) Jun, Persistent albuminuria (ICD-10 - R80.9) Failed Jardiance, will do trial of Farxiga. If cannot tolerate class medications or persistent albuminuria could consider nephrology. Repeat microalbuminuria after Farxiga. Discussed management of glycemia and high blood pressure to protect kidneys. Jun, Other inital weigh t increase, now declining [employer] Other 02-13-2023 Evaluation note* Encounter Date Diagnosis Assessment Notes Treatment Notes Treatment Clinical Notes Jun, Type 2 diabetes mellitus with hyperglycemia (ICD-10 - E11.65) [employer] Other 12-30-2022 Evaluation note* Encounter Date Diagnosis [...] manage cholesterol and preventative treatments. [facility] physician group primary care provider flyer given. [...] will have patient present for download with telehealth nurse educator in 4 weeks and provider in [...] Instructions material was published to portal Apr, FDC 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 insulin (ICD-10 - Z79.4) Apr, BMI 28.0-28.9,adult (ICD-10 - Z68.28) Apr, Persistent albuminuria (ICD-10 - R80.9) Failed Jardiance, will do trial of Farxiga. If cannot tolerate class medications or persistent albuminuria could consider nephrology. Repeat microalbuminuria after Farxiga. Discussed management of glycemia and high blood pressure to protect kidneys. Apr, Other inital weigh t increase, now declining [employer] Other 09-30-2022 Evaluation note* Encounter Date Diagnosis [...] for activation. She continue roberta. Encouraged calling [employer] for replacement of 2 sensors. We discussed [...] material was published to portal Jan, termite treater 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 insulin (ICD-10 - Z79.4) [...] Other inital weigh t increase, now declining [employer] Other 07-18-2022 Evaluation note* Encounter Date Diagnosis Assessment Notes Treatment Notes Treatment Clinical Notes Nov, Type 2 diabetes mellitus with hyperglycemia (ICD-10 - E11.65) Nov, FDC current us e of insulin (ICD-10 - Z79.4) [employer] Other 06-28-2022 Evaluation note* Encounter Date Diagnosis [...] clinic in 6 weeks for download with telehealth nurse educator in 3 months with provider 3. [...] material was published to portal Oct, termite treater 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 insulin (ICD-10 - Z79.4) Oct, BMI 27.0-27.9,adult (ICD-10 - Z68.27) Oct, Other inital weigh t increase, now declining [employer] Other 03-16-2022 Evaluation note* Encounter Date Diagnosis [...] increase this. Patient has difficulty with his clinique counter manager currently, questioning accuracy as it was run over. He will request a new clinique counter manager from [employer]. We also discussed using cell phone [...] previous PCP. He is given information regarding [facility] physicians to include Dr. Vela who may be geographically desirable. I did send him with written to do list 1 call [employer] for replacement of clinique counter manager. To download [employer] matthew on cell phone for next sensor [...] About Healthy Weight material was published to [employer] Jul, Hyperlipidemia (ICD-10 - E78.5) Learning About High Cholesterol material was published to portal LDL 53-- Continue Crestor Jul, HTN (hypertension) (ICD-10 - I10) High Blood Pressure: Care Instructions material was published to [employer] Jul, termite treater 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 insulin (ICD-10 - Z79.4) Jul, BMI 27.0-27.9,adult (ICD-10 - Z68.27) Jul, Other inital weigh t increase, now declining [employer] [place] [employer] Other Chief complaint+Reason for visit Narrative* Chief Complaint DMN f/u-METER Reason for Visit BMI 25.0-25.9,adult Dietary counseling and surveillance HTN (hypertension) Hyperlipidemia FDC 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 insulin Persistent albuminuria Type 2 diabetes mellitus with hyperglycemia Vitamin D deficiency [facility] Work Phone: Evaluation noteNo InformationNort [employer] Other Evaluation noteNo assessment information available [facility] Work Phone: Evaluation note* Diagnosis Onset Date Resolution Status BMI 25.0-25.9,adult acute Dietary counseling and surveillance acute HTN (hypertension) acute Hyperlipidemia acute termite treater 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 insulin acute Persistent albuminuria acute Type 2 diabetes mellitus with hyperglycemia acute Vitamin D deficiency acute [facility] Work Phone: Evaluation note* Diagnosis Neuralgia- Primary Unspecified neuralgia, neuritis, and radiculitis DDD (degenerative disc disease), cervical Degeneration of cervical intervertebral disc documented in this encounter [facility] HealthcareEvaluation note* Diagnosis Onset Date Resolution Status Admit Date BMI 25.0-25.9,adult acute October 09, 2024 8:20am Dietary counseling and surveillance acute October 09, 2024 8 :20am HTN (hypertension) acute October 092024 8:20am Hyperlipidemia acute October 09, 2024 8:20am termite treater 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 insulin acu te October 09, 2024 8:20am Persistent albuminuria acute Ju 2024 8:20am Type 2 diabetes mellitus wit h hyperglycemia acute October 09, 2024 8 :20am Vitamin D deficiency acute October 09, 2024 8:20am [facility] Work Phone: Evaluation note* Diagnosis Critical [...] PICC LINE 2017 Hospitalization History ICU In [facility] f or 8-10 days 2017 [place] [employer] Other Hospital Discharge instructionsAmbulatory Orders* Referral to Nephrology Time Frame: 01/01/25, Location: None Selected [facility] Work Phone: InstructionsNot on filedocumented in this encounter [facility] SystemReason for referral (narrative)* Reason Nail deformity, Type II Diabetes Referral sent , patient informed Diagnosis 1 Type 2 diabetes reji itus with hyperglycemia (E11.65) Diagnosis 2 Nail deformity (L60. 8) Referral Organization [facility] Referring Provider First Name Yolette Referring Provider Last Name Gabby Referring Provider Specialty Nurse Pract itioner Referred Organization [facility] Referred Provider NORY AHMADI Referred Address ,[place], [place],[address] Referred Provider Specialty Podiatry - S urgical [...] them. Clinical Notes Dr Nory Ahmadi# [phone] [employer] Other Reason for referral (narrative)No reason for referral information [facility]University [facility] Work Phone: Summary Purpose Family History Relationship [...] 2024 8:54am Hyperlipidemia April 23, 2024 8:54am termite treater 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 insulin Decembe r 2023 8:54am Persistent albuminuria April 23 8:54am Type 2 diabetes mellitus with hyperglyce samir April 23, 2024 8:54am Vitamin D deficiency April 23, 2024 8:54am BMI 25.0-25.9,adult June 18, 2024 8:25am Dietary counseling and surveillance [facility] 2024 8:25am HTN (hypertension) June 18, 2024 8:25am Hyperlipidemia June 18, 2024 8:25am FDC 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 insulin uar 2024 8:25am Persistent albuminuria June 18 8:25am [...] m Hyperlipidemia October 09, 2024 8:20a m termite treater 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 insulin October 8:20am Persistent [...] m Hypotension October 09, 2024 8:20a m FDC 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 insulin October 8:20am Persistent [...] pm Unknown November 12, 2024 1:45p m Chief Complaint Admit Date 12 weeks-DMN f/u-[facility] October 09, 2024 8:20am Unknown October 29, 2024 2:45 pm Unknown November 12, 2024 1:45p m DMN f/u January 01, 2025 9: 00am Reason for Visit Admit Date BMI 25.0-25.9,adult October 09, 2024 8:20a m Dietary counseling and surveillance October 09, 2024 8:20am HTN (hypertension) October 09, 2024 8:20a m Hyperlipidemia October 09, 2024 8:20a m Hypotension October 09, 2024 8:20a m FDC 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 insulin October 8:20am Persistent albuminuria October 09, 2024 8: 20am Type 2 diabetes mellitus with hyperglyce samir October 09, 2024 8:20am Vitamin D deficiency October 09, 2024 8:20 am BMI 25.0-25.9,adult January 01, 2025 9: 00am Dietary counseling and surveillance [facility] 2024 9:00am HTN (hypertension) January 01, 2025 9: 00am Hyperlipidemia January 01, 2025 9: 00am Hypotension January 01, 2025 9: 00am FDC 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 insulin January 01, 2025 9:00am Persistent albuminuria January 01, 2025 9:00am Type 2 diabetes mellitus with hyperglyce samir January 01, 2025 9:00am Vitamin D deficiency January 01, 2025 9 :00am Additional Source Comments (unrecognized sect ion and content) No Status Records FoundNo Status Records FoundNo Status Records FoundNo Status Records FoundNo Status Records FoundNo Status Records Found INFORMATION SOURCE (unrecogn ized section and content) DATE CREATED AUTHOR 04/12/2020 [facility] DATE CREATED AUTHOR AUTHOR'S ORGANIZ ATION 04/07/2024 [facility] EPIC DATE CREATED AUTHOR AUTHOR'S ORGANIZ ATION 10/08/2024 [facility] DATE CREATED AUTHOR AUTHOR'S ORGANIZ ATION 10/20/2024 [facility] DATE CREATED AUTHOR AUTHOR'S ORGANIZ ATION 10/26/2024 [facility] DATE CREATED AUTHOR AUTHOR'S ORGANIZ ATION 11/22/2024 [facility] REASON FOR VISIT (unrecogniz ed [...] 2024 End: October 09, 2024 Team Status: Inactive Member Role Status Dates Mayra Spears DPM MS Attending Provider Active Start: October 29, 2024 End: October 29, 2024 Team Status: Inactive Member Role Status Dates Mayra Spears DPM MS Attending Provider Active Start: November 12, 2024 End: November 12, 2024 Team Status: Inactive Member Role Status Dates Yolette Pierre APRN Attending Provider Active Start: January 01, 2025 End: January 01, 2025 NON STAFF Primary Care Provider Active Start: January 01, 2025 End: January 01, 2025 Team Status: Active Member Role Status Dates NON STAFF Primary Care Provider Active Team Status: Active Member Role Status Dates Francisco Walters , DISCHARGE DOOR OPERATOR-C Primary Care Provider Active Start: September 20, 2024 Krys Hummel MD Attending Provider Active Sta rt: September 20, 2024 Team Status: Active Member Role Status Dates Francisco Walters , DISCHARGE DOOR OPERATOR-C Primary Care Provider Active Start: September 21, 2024 Shaikh Shaji MD Attending Provider Active Sta rt: September 21, 2024 Team Status: Active Member Role Status Dates Francisco Walters , DISCHARGE DOOR OPERATOR-C Primary Care Provider Active Start: September 22, 2024 Shaikh Shjai MD Attending Provider Active Sta rt: September 22, 2024 Team Status: Active Member Role Status Dates Francisco Walters , DISCHARGE DOOR OPERATOR-C Primary Care Provider Active Start: September 23, [...] January 21, 2024 End: January 21, 2024 Trains Service Conductor Relationship Specialty Start Date End Date Melanie Daley DO [address] [address] Referring Physician Neurology 04/07/24 Leticia Blanco NP [address] [address] Nurse Practitioner Neurology 04/07/24 Suzanna Ybarra NP [address] [phone] Nurse Practitioner Neurology 04/07/24 Team Status: Inactive [...] June 18, 2024 End: June 18, 2024 Trains Service Conductor Relationship Specialty Start Date End Date No Pcp, [place] [address] PCP - General Family Medicine 04/11/24 Team Status: Inactive Member Role Status Dates Mayra Spears DPM MS Attending Provider Active Start: October 29, 2024 End: October 29, 2024 Team Status: Inactive Member Role Status Dates Mayra Spears DPM MS Attending Provider Active Start: November 12, 2024 End: November 12, 2024 Team Status: Inactive Member Role Status Dates Yolette Pierre APRN Attending Provider Active Start: January 01, 2025 End: January 01, 2025 NON STAFF Primary Care Provider Active Start: January 01, 2025 End: January 01, 2025 Goals (unrecognized section and content) Goals may [...] BE BASED ON THE PRIMARY CLINICAL RECORDS. [facility] [employer] provides no warranty or guarantee of the accuracy or completeness of information in this document.
== END 2025-01-07 09:11 | disposition home or self-care (01) ==
LOC: WC 09:11
PROVIDERS: PCP Family Medicine; Visit Provider Podiatrist Foot & Ankle Surgery
DX: I70.261 Atherosclerosis of native arteries of extremities with gangrene, right leg (principal); L97.514 Non-pressure chronic ulcer of other part of right foot with necrosis of bone
CPT/HCPCS: 11043

== ENCOUNTER 2025-01-21 09:23 | Outpatient (OUT) | payer MEDICARE, SELFPAY ==
--- OUTSIDE RECORDS SUMMARY | 2024-10-30 06:30 | XMS_ITS ---
Author Organization [facility] vices Address [address] [place], [place] [address] Care Team Providers Care Inbound Customer Service Agent Name Role Phone Ximena Walters Unavailable [phone] REASON FOR VISIT 6 month DM2, HTN Encounters Encounter Location Date Provider Diagnosis [facility] [address] [id number] 10/30/2024 Ximena Walters Plan Of Treatment No Information Progress Notes * RODRIGUEZJassi CONTRERASDOB: [birth year] (64 yo M)Acc No.[id number]:10/30/2024 Medical Note Patient: Jassi KNIGHT Provider: Jonah Walters :1960 A ge:64 Y S ex:Male Date:10/30/2024 Address:[address] [place], [place] [phone] Subjective: * Chief Complaints: * 1 . 6 month DM2, HTN. * Medical History: Objective: * Vitals: Assessment: Plan: * Treatment: * Billing Information: * Visit Code: * Procedure Codes: * Electronic signature of LEXY Horton sa on 01/21/2025 at 09:25 AM EDT Sign off status: Pending * Provider: Jonah Walters Date: 0 10/30/2024 Generated for Meliza gonzalez/Gabriel/eTransmitting on: 0 01/21/2025 09:25 AM EDT
--- OUTSIDE RECORDS SUMMARY | 2025-01-21 09:25 | XMS_ITS | Clinical Summary ---
Author Organization [employer] tem Address [id number] [address] [place] [address] Care Team Providers Care Wing Coverer Name Role Phone No Pcp, No Pcp [...] AM EDT Office Visit [facility] [place] [place] [address] Jamil Culver MD Critical limb ischemia of right lower extremity with gangrene ([facility]) (Primary Dx) 10/23/2024 Travel from Last 3 Months Family History [...] Author dc to home General Yes Camille Cealya, RN Note: Evaluation of progress towards goal: Patients goal is to discharge to home. [employer] Not on file Insurance [facility] MEDICARE Advance Directives * Full Code (Latest Code Status on File) Date Activated Date Inactivated Comments 09/16/2016 8:20 PM 09/22/2016 8:22 PM * Full Code Date Activated Date Inactivated Comments 09/16/2016 1:01 PM 09/16/2016 8:20 PM Care Teams Wing Coverer Relationship Specialty Start Date End Date No Pcp, No Pcp LATANYA Valerio [id number] PCP - General Family Medicine 04/11/24
--- OUTSIDE RECORDS SUMMARY | 2025-01-21 09:25 | XMS_ITS | Patient Health Record ---
Author Organization [facility] vices Address [address] [place], [place] [id number] Care Team Providers Care Front End Loader Operator Name Role Phone Ximena Walters Unavailable [phone] Ned Rizo Unavailable [phone] Allergies No Known Allergies Results Component Value [...] UNLESS OTHERWISE INDICATED, ALL TESTING PERFORMED AT: [employer] [address] [place] [id number] [employer]AF[employer]Y FIRE BOSS: SHIRLEY MCCARTY M.D. CLIA NUMBER [id number] CAP ACCREDITATION AUID [id number] Changes in testing location may be associated [...] Polyneuropathy due to type 2 diabetes mellitus (664481156) Type 2 diabetes mellitus with diabetic polyneuropathy (E11.42) Active confirmed Problem Essential hypertension (86230187) Essential hypertension (I10) Active confirmed Problem Hyperlipidemia (79446122) Mild hyperlipidemia (E78.5) Active confirmed Problem Amputation of toe (212188284) Amputation toe (S98.139A) Active confirmed Vital Signs Heart Rate 97 /min 09/30/2024 denies pain. Ia Penelope tripp 09/30/2024 01:20:48 PM EDT > Temperature 97.4 degrees Fahrenheit 09/30/2024 fermin es pain. Penelope Faria 09/30/2024 01:20:48 PM EDT > Respiratory Rate 18 /min 09/30/2024 denies pain . Penelope Faria 09/30/2024 01:20:48 PM EDT > Height-cm 175.26 cm 09/30/2024 denies pain. Ia Penelope tripp 09/30/2024 01:20:48 PM EDT > Oximetry 98 % 09/30/2024 denies pain. Ia Penelope tripp 09/30/2024 01:20:48 PM EDT > Blood pressure diastolic 72 mm Hg 09/30/2024 den ies pain. Penelope Faria 09/30/2024 01:20:48 PM EDT > Weight-kg 72.53 kg 09/30/2024 denies pain. Ia Penelope tripp 09/30/2024 01:20:48 PM EDT > Height 69 in 09/30/2024 denies pain. Ia Penelope tripp 09/30/2024 01:20:48 PM EDT > Blood pressure systolic 101 mm Hg 09/30/2024 fermin es pain. Penelope Faira 09/30/2024 01:20:48 PM EDT > Weight 159.9 lbs 09/30/2024 denies pain. Ia Penelope tripp 09/30/2024 01:20:48 PM EDT > BMI 23.61 kg/m2 09/30/2024 denies pain. Ia Penelope tripp 09/30/2024 01:20:48 PM EDT > Encounters Encounter Location Date Provider Diagnosis Main [address] [place] [id number] 04/17/2024 [facility] Encounter for well ness examination Z00.00 [...] index [BMI] 26.0-26.9, adult Z68.26 [address] [place], [place] [id number] 05/01/2024 [facility] Closed fracture of multiple ribs of right side with routine healing, subsequent encounter S22.41XD ; Essential hypertension I10 ; Mild hyperlipidemia E78.5 ; Type 2 diabetes mellitus with diabetic polyneuropathy E11.42 ; Body mass index [BMI] 25.0-25.9, adult Z68.25 and Overweight E66.3 [address] [facility] [place] [place] [id number] 09/30/2024 Ned Studd Mild hyperlipidemi a E78.5 ; Essential hypertension I10 ; Amputation toe S98.139A and Osteomyelitis of right foot, unspecified type M86.9 [address] [place], [place] [id number] 04/17/2024 [facility] [address] [place], [place] [id number] 05/15/2024 [facility] Essential hyperten nevin I10 and Mild hyperlipidemia E78.5 [address] [place], [place] [id number] 09/26/2024 Ned Studd [address] [place], [place] [id number] 01/01/2025 Ned Studd Mild hyperlipidemi a E78.5 [address] [place], [place] [id number] 01/01/2025 Ned Studd Essential hyperten nevin I10 [...] Continue following w/ Barrie Pierre CNP [facility] 09/30/2024 Osteomyelitis of right foot, [...] Insured Coverage Start Date Coverage End Date [employer] [address] [place] [address] [id number] [facility] 0 Jassi Rodriguez Self - patient is the insured 5 Medical (General) History Medical History History ICD Code Type 2 Diabetes Hyperlipidemia Surgical History Surgery Date(Month/Year) [facility] right foot september 2024 Hospitalization History Reason Date(Month/Year) right foot september 2024
--- OUTSIDE RECORDS SUMMARY | 2025-01-21 09:34 | XMS_ITS | CCD ---
Author Organization [facility] CliniSyma Care Team Providers Care Cosmetologist Name Role Phone MARCEL PAIZ Attending Unavailable NORY WAN Consulting Unavailable ANNIE RODGERS Primary Care Unavailable MARCEL PAIZ Admitting Unavailable MARCEL PAIZ Consulting Unavailable Yolette Pierre Unavailable Annie Rodgers Unavailable MD Annie Rodgers Primary Care Provider [phone] TIFFANIE Pierre Attending Provider Unavailable Primary Care Provider UnavailMelanie Hale DO Unavailable Francis JOINERY MACHINIST, Leticia Unavailable Tate JOINERY MACHINIST, Suzanna Unavailable MELANIE DALEY Attending Unavailable Yolette [...] PCP, NO PCP Primary Care Unavailable Selena JOINERY MACHINIST-C, Francisco Lee Primary Care Provider Estephanie CARVALHO, Krys Mckenzie Attending Provider Shaji CARVALHO, Attending Provider [phone] Desiree Garcia CMA Attending Provider Unavaila ble Yolette Pierre APRN Attending Provider NON STAFF Primary Care Provider UnavailMayra Shepard Admitting Unavailable Mayra Spears Attending Unavailable Mayra Spears Admitting Unavailable Mayra Spears Attending Unavailable Yolette Pierre Admitting Unavailable Yolette Pierre Attending Unavailable Mayra Spears Admitting Unavailable Mayra Spears Attending Unavailable Mayra Spears DPM Attending Provider Medications Current Medications Medication Drug Class(es) Dates [...] therapy Start: 12-19-2022 take [facility] Cholecalciferol 1.25 MG (59318 UT) 1 capsule Orally weekly for 56 days Then D3 OtC 4000 UT daily Dec, Active take 1 capsule by [facility] Cholecalciferol 100 MCG (4000 UT) 1 capsule Orally weekly for 56 days Then D3 OtC 4000 UT daily Active take 1 capsule by [facility] Cholecalciferol 1.25 MG (93036 UT) 1 capsule Orally weekly for 56 [...] therapy Start: 02-03-2022 take 1 tablet by [facility] every twenty-four hours Farxiga 5 MG 1 [...] has coupon card Active Flash Glucose Scanning [place] (Freestyle Roberta 2 [place]) misc (16 sources) Start: 09-07-2023 Flash Glucose Scanning [place] (Freestyle Roberta 2 [place]) misc Active 0 .MEDSUPPLY September 07, 2023 12:58pm As directed to monitor blood sugar Start: 09-07-2023 Flash Glucose Scanning [place] (Freestyle Roberta 2 [place]) misc Active 0 .MEDSUPPLY September 07, 2023 1:58pm As directed to monitor blood sugar Start: 09-07-2023 End: 09-07-2023 Flash Glucose Scanning [place] (Freestyle Roberta 2 [place]) misc Discontinued 0 .MEDSUPPLY September 06, 2023 11:00pm September 07, 2023 1:01pm As directed Start: 09-07-2023 End: 09-07-2023 Flash Glucose Scanning [place] (Freestyle Robreta 2 [place]) misc Discontinued 0 .MEDSUPPLY September 07, 2023 [...] 2023 12:00am As directed FreeStyle Roberta 2 [place] - (20 sources) Start: 08-24-2021 FreeStyle Libr e 2 [place] - as directed SQ 5 x day [...] Semglee 100 UNIT/ML 45 units Subcutaneou s [facility] insurance changed from Lantus to [...] 11-01-2021 Chronic Gangrene (4 sources) Atherosclerosis of [place] arteries of extremities with gangrene, right leg; [...] encounter] 10-09-2024 Chronic Other aftercare (17 sources) detention (current) use of insulin; Translations: [Long-term (current) use of insulin] Onset: 04-12-2020 Resolved: 11-21-2021 Episodic Other aftercare (20 sources) Long-term 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 insulin; Translations: [detention (current) use of insulin] 09-05-2023 Episodic Other [...] Test Name Value Interpretation Reference Range Facility [facility] 11-12-2024 L Specimen: [id number] Received: 11/13/24 Status: SOHABrigitte Naz Num: [id number] Spec Type: Surgical Subm Dr: Mayra Spears,DPSaud, MS Tissues: A DIGIT AMPUTATION (BONE FROM R 2nd TOE) Procedures: HE/2, Gross/Micro L4, Decalcification Age/ Patient Sex Location Account Attending Physician Jassi Rodriguez 64/M LABELL [id number] Mayra Spears DPM, MS SPEC NUM: [id number] RECD: 11/13/24 STATUS: LORENA CHILDS NUM: [id number] SCOTT: 11/12/[address] [facility] [address]: Mayra Spears DPM, MS ENTERED: 11/13/[address]: Nehemias,Lab SPEC TYPE: Surgical DEPT: THANH MURRAY ENTERED BY: [id number] RECV BY: [id number] ORDERED: HE/2, Gross/Micro L4, Decalcification ORDERED: HE/2, [...] soft tissue submitted in A2. (2, ss, [id number] A) CPT Codes 25759, 82105 Specimen: [id number] Received: 11/13/24 Status: LORENA Childs Num: [id number] Spec Type: Surgical Subm Dr: Mayra Spears DPM, MS Tissues: A DIGIT AMPUTATION (BONE FROM R 2nd TOE) Procedures: HE/2, Gross/Micro L4, Decalcification Patient: Jassi Rodriguez [id number] (Continued) Signed (signature on file) Uziel Lozano MD 11/18/24 1140 Normal [facility] No Panel InformationOrdered By: Mayra Spears on 10-29-2024 Miscellaneous Pathology Test See comment [facility] Comment on above: See report. Scanned copy available in EMR. Pathology Request for Lab Co rpon 10-29-2024 Pathology Request for Lab David Normal [facility] Comment on above: Order Comment: BONE 2ND RT TOE Result Comment: See report. Scanned copy available in EMR. PERFORMED BY: [facility] [address] [place] [address] PATHOLOGIST BAG MACHINE HELPER GOOD RIDDLE M.D. Performed By: #### P ATH TO [facility] #### [facility] [address] POCT BUN, CREATon 10-17-2024 Creatinine [Mass/Vol] 1.1 mg/dL Normal 0.7-1.2 [facility] Comment on above: Performed By: #### I BC #### [facility] ([facility]) [address] [place] [address] VIR GFR/1.73 sq M.predicted among non-blacks MDRD (S/P/Bld) [Vol rate/Area] 75 mL/min/{1.73_m2} Normal >=60 [facility] Comment on above: Result Comment: Repo rted eGFR is based on the CKD-EPI 2020 equation that does not use a race coefficient. Performed By: #### I BC #### [facility] ([facility]) [address] [place] [address] VIR Urea nitrogen [Mass/Vol] 17 mg/dL Normal 6-27 [facility] Comment on above: Performed By: #### I BC #### [facility] ([facility]) [address] [place] [address] VIR PORTABLE GLUCOSEon 5 Glucose [Mass/Vol] 89 mg/dL Normal 65-99 [facility] Comment on above: Performed By: #### I GLU #### [facility] ([facility]) [address] [place] [address] VIR HbA1c HPLC (Bld) [Mass fract ion]on 10-09-2024 HbA1c (Bld) [Mass fraction] 6.6 % [facility] No Panel Informationon 10-09 Bedside Glucose 123 [facility] Basophils Auto (Bld) [#/Vol] on 09-23-2024 Basophils (Bld) [#/Vol] Automated basophil count 0.0-0.1 [facility] Basophils (Bld) [#/Vol] 0.1 10 3/uL 0.0-0.1 [facility] Basophils/100 WBC Auto (Bld) on 09-23-2024 Basophils/100 WBC (Bld) Automated basophil % 0.2-2.0 [facility] Basophils/100 WBC (Bld) 0.7 % 0.2-2.0 [facility] Eosinophils/100 WBC Auto (Bl d)on 09-23-2024 Eosinophils/100 WBC (Bld) Automated eosinophil % Low 0.9-7.0 [facility] Eosinophils/100 WBC (Bld) 0.2 % Low 0.9-7.0 [facility] Erythrocyte distribution wid th Auto (RBC) [Ratio]on 09-23-2024 Erythrocyte distribution width (RBC) [Ratio] Erythrocyte distribution width [Ratio] by Automated count 11.0-15.0 [facility] Erythrocyte distribution width (RBC) [Ratio] 11.0 % 11.0-15.0 [facility] Estimated glomerular filtrat ion rate (GFR) non- Americanon 09-23-2024 GFR/1.73 sq M.predicted among non-blacks MDRD (S/P/Bld) [Vol rate/Area] Estimated glomerular filtration rate (GFR) non- >=60 mL/min/1.73m 2 [facility] GFR/1.73 sq M.predicted among non-blacks MDRD (S/P/Bld) [Vol rate/Area] mL/min/{1.73_m2} >=60 mL/min/1.73m 2 [facility] Globulin Calc (S) [Mass/Vol] on 09-23-2024 Globulin (S) [Mass/Vol] Serum globulin measurement by calculation (mass/volume) [facility] Globulin (S) [Mass/Vol] 5.6 g/dL [facility] Hematocrit Auto (Bld) [Volum e fraction]on 09-23-2024 Hematocrit (Bld) [Volume fraction] Hematocrit [Volume Fraction] of Blood by Automated count Low 42.0-54.0 [facility] Hematocrit (Bld) [Volume fraction] 34.7 % Low 42.0-54.0 [facility] Hemoglobin [Mass/volume] in Bloodon 09-23-2024 Hemoglobin (Bld) [Mass/Vol] Hemoglobin [Mass/volume] in Blood Low 14.0-18.0 [facility] Hemoglobin (Bld) [Mass/Vol] 11.9 g/dL Low 14.0-18.0 [facility] Gavino 09-23-2024 L Specimen: [id number] Received: 09/23/24 Status: LORENA Childs Num: [id number] Spec Type: Surgical Subm Dr: Mayra Spears,DPM, MS Tissues: A DIGIT AMPUTATION (RIGHT DISTAL PHALANX) B DIGIT AMPUTATION (RIGHT PROXIMAL PHALANX) Procedures: HE/3, Gross/Micro L4/2, Decalcification/2 Age/ Patient Sex Location Account Attending Physician Jassi Rodriguez 64/M LABELL [id number] Mayra Spears DPM, MS SPEC NUM: [id number] RECD: 09/23/24 STATUS: LORENA CHILDS NUM: [id number] SCOTT: 09/23/[address] [facility] [address]: Mayra Spears DPM, MS ENTERED: 09/23/[address]: Nehemias,Lab SPEC TYPE: Surgical DEPT: THANH MURRAY ENTERED BY: [id number] RECV BY: [id number] ORDERED: HE/3, Gross/Micro L4/2, Decalcification/2 ORDERED: HE/3, [...] cellulitis, dry gangrene right great toe Specimen: [id number] Received: 09/23/24 Status: LORENA Childs Num: [id number] Spec Type: Surgical Subm Dr: Mayra Spears,DPM, MS Tissues: A DIGIT AMPUTATION (RIGHT DISTAL PHALANX) B DIGIT AMPUTATION (RIGHT PROXIMAL PHALANX) Procedures: HE/3, Gross/Micro L4/2, Decalcification/2 Patient: Jassi Rodriguez SR [id number] (Continued) Specimen: [id number] Received: 09/23/24 (Continued) Signed (signature on file) Mingo Mejia MD 09/26/24 1340 Specimen: [id number] Received: 09/23/24 Status: LORENA Childs Num: [id number] Spec Type: Surgical Subm Dr: Mayra Spears,DPM, MS Tissues: A DIGIT AMPUTATION (RIGHT DISTAL PHALANX) B DIGIT AMPUTATION (RIGHT PROXIMAL PHALANX) Procedures: HE/3, Gross/Micro L4/2, Decalcification/2 Patient: Jassi Rodriguez [id number] (Continued) Specimen: [id number] Received: 09/23/24-1299 (Continued) Gross Description Part A [...] cm from the proximal skin margin. A teleservices representative section of the indurated area and underlying distal phalanx is submitted in A1 after decalcification with tangential cross-sections of the proximal skin margin submitted in A2. (2, ss, [id number] A) Part B is received in formalin [...] submitted in B1 after decalcification. (1, , [id number] B) Microscopic Description Microscopic examination is performed CPT Codes 71020h8 07235h1 Specimen: [id number] Received: (more content not included)... Normal [facility] Laboratory - Chemistry and C hemistry - challengeon 09-23-2024 Albumin [Mass/Vol] 1.8 g/dL Low 3.4-5.0 [facility] ALP [Catalytic activity/Vol] 76 U/L 46-116 [facility] ALT [Catalytic activity/Vol] 15 U/L Low 16-63 [facility] AST [Catalytic activity/Vol] 22 U/L 15-37 [facility] Bilirubin [Mass/Vol] 0.3 mg/dL 0.2-1.0 [facility] Calcium [Mass/Vol] 9.0 mg/dL 8.5-10.1 [facility] Chloride [Moles/Vol] 103 mmol/L 98-107 [facility] CO2 [Moles/Vol] 26.0 mmol/L 21.0-32.0 [facility] Creatinine [Mass/Vol] 0.94 mg/dL 0.70-1.30 [facility] GFR/1.73 sq M.predicted MDRD (S/P/Bld) [Vol rate/Area] mL/min/{1.73_m2} >=60 mL/min/1.73m 2 [facility] Glucose [Mass/Vol] 124 mg/dL High 74-106 [facility] Potassium [Moles/Vol] 4.1 mmol/L 3.5-5.1 [facility] Protein [Mass/Vol] 7.4 g/dL 6.4-8.2 [facility] Sodium [Moles/Vol] 139 mmol/L 136-145 [facility] Urea nitrogen [Mass/Vol] 22.0 mg/dL High 7.0-18.0 [facility] Urea nitrogen/Creatinine [Mass ratio] 23.4 mg/mg [facility] Laboratory - Hematology and Cell countson 09-23-2024 Immature granulocytes/100 WBC (Bld) 0.3 % 0.0-0.5 [facility] Leukocytes [#/volume] correc marike for nucleated erythrocytes in Blood by Automated counon 09-23-2024 WBC corrected for nucl RBC Auto (Bld) [#/Vol] Leukocytes [#/volume] corrected for nucleated erythrocytes in Blood by Automated coun 4.0-11.0 [facility] WBC corrected for nucl RBC Auto (Bld) [#/Vol] 9.1 10 3/uL 4.0-11.0 [facility] Lymphocytes Auto (Bld) [#/Vo l]on 09-23-2024 Lymphocytes (Bld) [#/Vol] Lymphocytes [#/volume] in Blood by Automated count 1.2-3.8 [facility] Lymphocytes (Bld) [#/Vol] 1.6 10 3/uL 1.2-3.8 [facility] Lymphocytes/100 WBC Auto (Bl d)on 09-23-2024 Lymphocytes/100 WBC (Bld) Lymphocytes/100 leukocytes in Blood by Automated count Low 20.5-60.0 [facility] Lymphocytes/100 WBC (Bld) 17.6 % Low 20.5-60.0 [facility] MCH Auto (RBC) [Entitic mass ]on 09-23-2024 MCH (RBC) [Entitic mass] MCH [Entitic mass] by Automated count 25.9-34.0 [facility] MCH (RBC) [Entitic mass] 30.7 pg 25.9-34.0 [facility] MCHC Auto (RBC) [Mass/Vol]on 09-23-2024 MCHC (RBC) [Mass/Vol] MCHC [Mass/volume] by Automated count 29.9-35.2 [facility] MCHC (RBC) [Mass/Vol] 34.3 g/dL 29.9-35.2 [facility] MCV Auto (RBC) [Entitic vol] on 09-23-2024 MCV (RBC) [Entitic vol] MCV [Entitic volume] by Automated count 80.0-94.0 [facility] MCV (RBC) [Entitic vol] 89.7 fL 80.0-94.0 [facility] Monocytes Auto (Bld) [#/Vol] on 09-23-2024 Monocytes (Bld) [#/Vol] Automated blood monocyte count High 0.3-0.8 [facility] Monocytes (Bld) [#/Vol] 1.4 10 3/uL High 0.3-0.8 [facility] Monocytes/100 WBC Auto (Bld) on 09-23-2024 Monocytes/100 WBC (Bld) Automated monocyte % High 1.7-12.0 [facility] Monocytes/100 WBC (Bld) 15.6 % High 1.7-12.0 [facility] Neutrophils Auto (Bld) [#/Vo l]on 09-23-2024 Neutrophils (Bld) [#/Vol] Neutrophils [#/volume] in Blood by Automated count 1.4-6.5 [facility] Neutrophils (Bld) [#/Vol] 6.0 10 3/uL 1.4-6.5 [facility] Neutrophils/100 WBC Auto (Bl d)on 09-23-2024 Neutrophils/100 WBC (Bld) Automated neutrophil % 43.0-75.0 [facility] Neutrophils/100 WBC (Bld) 65.6 % 43.0-75.0 [facility] No Panel Informationon 09-23 C-Reactive Protein, Quantitative 3.19 mg/dL High <=0.50 [facility] Eosinophils # (Auto) 0.0 10 3/uL 0.0-0.7 [facility] Immature Granulocyte # (Auto) 0.03 10 3/uL 0.00-0.03 [facility] Platelet mean volume Auto (B ld) [Entitic vol]on 09-23-2024 Platelet mean volume (Bld) [Entitic vol] Platelet mean volume [Entitic volume] in Blood by Automated count 9.5-13.5 [facility] Platelet mean volume (Bld) [Entitic vol] 9.5 fL 9.5-13.5 [facility] Platelets Auto (Bld) [#/Vol] on 09-23-2024 Platelets (Bld) [#/Vol] Platelets [#/volume] in Blood by Automated count 150-450 [facility] Platelets (Bld) [#/Vol] 339 10 3/uL 150-450 [facility] RBC Auto (Bld) [#/Vol]on RBC (Bld) [#/Vol] Erythrocytes [#/volume] in Blood by Automated count Low 4.70-6.10 [facility] RBC (Bld) [#/Vol] 3.87 10 6/uL Low 4.70-6.10 [facility] Serum or plasma albumin/glob ulin mass ratioon 09-23-2024 Albumin/Globulin [Mass ratio] Serum or plasma albumin/globulin mass ratio [facility] Albumin/Globulin [Mass ratio] 0.3 {ratio} [facility] Serum or plasma anion gap de terminationon 09-23-2024 Anion gap [Moles/Vol] Serum or plasma anion gap determination [facility] Anion gap [Moles/Vol] 14.1 mmol/L [facility] Basophils Auto (Bld) [#/Vol] on 09-22-2024 Basophils (Bld) [#/Vol] Automated basophil count 0.0-0.1 [facility] Basophils (Bld) [#/Vol] 0.1 10 3/uL 0.0-0.1 [facility] Basophils/100 WBC Auto (Bld) on 09-22-2024 Basophils/100 WBC (Bld) Automated basophil % 0.2-2.0 [facility] Basophils/100 WBC (Bld) 0.6 % 0.2-2.0 [facility] Eosinophils/100 WBC Auto (Bl d)on 09-22-2024 Eosinophils/100 WBC (Bld) Automated eosinophil % Low 0.9-7.0 [facility] Eosinophils/100 WBC (Bld) 0.2 % Low 0.9-7.0 [facility] Erythrocyte distribution wid th Auto (RBC) [Ratio]on 09-22-2024 Erythrocyte distribution width (RBC) [Ratio] Erythrocyte distribution width [Ratio] by Automated count 11.0-15.0 [facility] Erythrocyte distribution width (RBC) [Ratio] 11.1 % 11.0-15.0 [facility] Estimated glomerular filtrat ion rate (GFR) non- Americanon 09-22-2024 GFR/1.73 sq M.predicted among non-blacks MDRD (S/P/Bld) [Vol rate/Area] Estimated glomerular filtration rate (GFR) non- >=60 mL/min/1.73m 2 [facility] GFR/1.73 sq M.predicted among non-blacks MDRD (S/P/Bld) [Vol rate/Area] mL/min/{1.73_m2} >=60 mL/min/1.73m 2 [facility] Globulin Calc (S) [Mass/Vol] on 09-22-2024 Globulin (S) [Mass/Vol] Serum globulin measurement by calculation (mass/volume) [facility] Globulin (S) [Mass/Vol] 5.4 g/dL [facility] Hematocrit Auto (Bld) [Volum e fraction]on 09-22-2024 Hematocrit (Bld) [Volume fraction] Hematocrit [Volume Fraction] of Blood by Automated count Low 42.0-54.0 [facility] Hematocrit (Bld) [Volume fraction] 33.8 % Low 42.0-54.0 [facility] Hemoglobin [Mass/volume] in Bloodon 09-22-2024 Hemoglobin (Bld) [Mass/Vol] Hemoglobin [Mass/volume] in Blood Low 14.0-18.0 [facility] Hemoglobin (Bld) [Mass/Vol] 11.8 g/dL Low 14.0-18.0 [facility] Laboratory - Chemistry and C hemistry - challengeon 09-22-2024 Albumin [Mass/Vol] 1.9 g/dL Low 3.4-5.0 [facility] ALP [Catalytic activity/Vol] 74 U/L 46-116 [facility] ALT [Catalytic activity/Vol] 15 U/L Low 16-63 [facility] AST [Catalytic activity/Vol] 20 U/L 15-37 [facility] Bilirubin [Mass/Vol] 0.4 mg/dL 0.2-1.0 [facility] Calcium [Mass/Vol] 8.7 mg/dL 8.5-10.1 [facility] Chloride [Moles/Vol] 102 mmol/L 98-107 [facility] CO2 [Moles/Vol] 23.7 mmol/L 21.0-32.0 [facility] Creatinine [Mass/Vol] 0.99 mg/dL 0.70-1.30 [facility] GFR/1.73 sq M.predicted MDRD (S/P/Bld) [Vol rate/Area] mL/min/{1.73_m2} >=60 mL/min/1.73m 2 [facility] Glucose [Mass/Vol] 87 mg/dL 74-106 [facility] Potassium [Moles/Vol] 4.4 mmol/L 3.5-5.1 [facility] Protein [Mass/Vol] 7.3 g/dL 6.4-8.2 [facility] Sodium [Moles/Vol] 137 mmol/L 136-145 [facility] Urea nitrogen [Mass/Vol] 21.0 mg/dL High 7.0-18.0 [facility] Urea nitrogen/Creatinine [Mass ratio] 21.2 mg/mg [facility] Laboratory - Hematology and Cell countson 09-22-2024 Immature granulocytes/100 WBC (Bld) 0.4 % 0.0-0.5 [facility] Leukocytes [#/volume] correc markie for nucleated erythrocytes in Blood by Automated counon 09-22-2024 WBC corrected for nucl RBC Auto (Bld) [#/Vol] Leukocytes [#/volume] corrected for nucleated erythrocytes in Blood by Automated coun 4.0-11.0 [facility] WBC corrected for nucl RBC Auto (Bld) [#/Vol] 9.6 10 3/uL 4.0-11.0 [facility] Lymphocytes Auto (Bld) [#/Vo l]on 09-22-2024 Lymphocytes (Bld) [#/Vol] Lymphocytes [#/volume] in Blood by Automated count 1.2-3.8 [facility] Lymphocytes (Bld) [#/Vol] 1.7 10 3/uL 1.2-3.8 [facility] Lymphocytes/100 WBC Auto (Bl d)on 09-22-2024 Lymphocytes/100 WBC (Bld) Lymphocytes/100 leukocytes in Blood by Automated count Low 20.5-60.0 [facility] Lymphocytes/100 WBC (Bld) 17.7 % Low 20.5-60.0 [facility] MCH Auto (RBC) [Entitic mass ]on 09-22-2024 MCH (RBC) [Entitic mass] MCH [Entitic mass] by Automated count 25.9-34.0 [facility] MCH (RBC) [Entitic mass] 31.3 pg 25.9-34.0 [facility] MCHC Auto (RBC) [Mass/Vol]on 09-22-2024 MCHC (RBC) [Mass/Vol] MCHC [Mass/volume] by Automated count 29.9-35.2 [facility] MCHC (RBC) [Mass/Vol] 34.9 g/dL 29.9-35.2 [facility] MCV Auto (RBC) [Entitic vol] on 09-22-2024 MCV (RBC) [Entitic vol] MCV [Entitic volume] by Automated count 80.0-94.0 [facility] MCV (RBC) [Entitic vol] 89.7 fL 80.0-94.0 [facility] Monocytes Auto (Bld) [#/Vol] on 09-22-2024 Monocytes (Bld) [#/Vol] Automated blood monocyte count High 0.3-0.8 [facility] Monocytes (Bld) [#/Vol] 1.2 10 3/uL High 0.3-0.8 [facility] Monocytes/100 WBC Auto (Bld) on 09-22-2024 Monocytes/100 WBC (Bld) Automated monocyte % High 1.7-12.0 [facility] Monocytes/100 WBC (Bld) 12.8 % High 1.7-12.0 [facility] Neutrophils Auto (Bld) [#/Vo l]on 09-22-2024 Neutrophils (Bld) [#/Vol] Neutrophils [#/volume] in Blood by Automated count High 1.4-6.5 [facility] Neutrophils (Bld) [#/Vol] 6.6 10 3/uL High 1.4-6.5 [facility] Neutrophils/100 WBC Auto (Bl d)on 09-22-2024 Neutrophils/100 WBC (Bld) Automated neutrophil % 43.0-75.0 [facility] Neutrophils/100 WBC (Bld) 68.3 % 43.0-75.0 [facility] No Panel Informationon 09-22 Vancomycin Level Trough 18.3 ug/mL 5.0-20.0 [facility] C-Reactive Protein, Quantitative 4.29 mg/dL High <=0.50 [facility] Eosinophils # (Auto) 0.0 10 3/uL 0.0-0.7 [facility] Immature Granulocyte # (Auto) 0.04 10 3/uL High 0.00-0.03 [facility] Platelet mean volume Auto (B ld) [Entitic vol]on 09-22-2024 Platelet mean volume (Bld) [Entitic vol] Platelet mean volume [Entitic volume] in Blood by Automated count 9.5-13.5 [facility] Platelet mean volume (Bld) [Entitic vol] 9.6 fL 9.5-13.5 [facility] Platelets Auto (Bld) [#/Vol] on 09-22-2024 Platelets (Bld) [#/Vol] Platelets [#/volume] in Blood by Automated count 150-450 [facility] Platelets (Bld) [#/Vol] 334 10 3/uL 150-450 [facility] RBC Auto (Bld) [#/Vol]on RBC (Bld) [#/Vol] Erythrocytes [#/volume] in Blood by Automated count Low 4.70-6.10 [facility] RBC (Bld) [#/Vol] 3.77 10 6/uL Low 4.70-6.10 [facility] Serum or plasma albumin/glob ulin mass ratioon 09-22-2024 Albumin/Globulin [Mass ratio] Serum or plasma albumin/globulin mass ratio [facility] Albumin/Globulin [Mass ratio] 0.4 {ratio} [facility] Serum or plasma anion gap de terminationon 09-22-2024 Anion gap [Moles/Vol] Serum or plasma anion gap determination [facility] Anion gap [Moles/Vol] 15.7 mmol/L [facility] Basophils Auto (Bld) [#/Vol] on 09-21-2024 Basophils (Bld) [#/Vol] Automated basophil count 0.0-0.1 [facility] Basophils (Bld) [#/Vol] 0.1 10 3/uL 0.0-0.1 [facility] Basophils/100 WBC Auto (Bld) on 09-21-2024 Basophils/100 WBC (Bld) Automated basophil % 0.2-2.0 [facility] Basophils/100 WBC (Bld) 0.6 % 0.2-2.0 [facility] Eosinophils/100 WBC Auto (Bl d)on 09-21-2024 Eosinophils/100 WBC (Bld) Automated eosinophil % Low 0.9-7.0 [facility] Eosinophils/100 WBC (Bld) 0.2 % Low 0.9-7.0 [facility] Erythrocyte distribution wid th Auto (RBC) [Ratio]on 09-21-2024 Erythrocyte distribution width (RBC) [Ratio] Erythrocyte distribution width [Ratio] by Automated count 11.0-15.0 [facility] Erythrocyte distribution width (RBC) [Ratio] 11.3 % 11.0-15.0 [facility] Estimated glomerular filtrat ion rate (GFR) non- Americanon 09-21-2024 GFR/1.73 sq M.predicted among non-blacks MDRD (S/P/Bld) [Vol rate/Area] Estimated glomerular filtration rate (GFR) non- >=60 mL/min/1.73m 2 [facility] GFR/1.73 sq M.predicted among non-blacks MDRD (S/P/Bld) [Vol rate/Area] mL/min/{1.73_m2} >=60 mL/min/1.73m 2 [facility] Globulin Calc (S) [Mass/Vol] on 09-21-2024 Globulin (S) [Mass/Vol] Serum globulin measurement by calculation (mass/volume) [facility] Globulin (S) [Mass/Vol] 5.6 g/dL [facility] Hematocrit Auto (Bld) [Volum e fraction]on 09-21-2024 Hematocrit (Bld) [Volume fraction] Hematocrit [Volume Fraction] of Blood by Automated count Low 42.0-54.0 [facility] Hematocrit (Bld) [Volume fraction] 34.2 % Low 42.0-54.0 [facility] Hemoglobin [Mass/volume] in Bloodon 09-21-2024 Hemoglobin (Bld) [Mass/Vol] Hemoglobin [Mass/volume] in Blood Low 14.0-18.0 [facility] Hemoglobin (Bld) [Mass/Vol] 11.6 g/dL Low 14.0-18.0 [facility] Laboratory - Chemistry and C hemistry - challengeon 09-21-2024 Albumin [Mass/Vol] 1.9 g/dL Low 3.4-5.0 [facility] ALP [Catalytic activity/Vol] 79 U/L 46-116 [facility] ALT [Catalytic activity/Vol] 16 U/L 16-63 [facility] AST [Catalytic activity/Vol] 21 U/L 15-37 [facility] Bilirubin [Mass/Vol] 0.5 mg/dL 0.2-1.0 [facility] Calcium [Mass/Vol] 8.8 mg/dL 8.5-10.1 [facility] Chloride [Moles/Vol] 103 mmol/L 98-107 [facility] CO2 [Moles/Vol] 24.5 mmol/L 21.0-32.0 [facility] Creatinine [Mass/Vol] 1.18 mg/dL 0.70-1.30 [facility] GFR/1.73 sq M.predicted MDRD (S/P/Bld) [Vol rate/Area] mL/min/{1.73_m2} >=60 mL/min/1.73m 2 [facility] Glucose [Mass/Vol] 106 mg/dL 74-106 [facility] Potassium [Moles/Vol] 4.6 mmol/L 3.5-5.1 [facility] Protein [Mass/Vol] 7.5 g/dL 6.4-8.2 [facility] Sodium [Moles/Vol] 137 mmol/L 136-145 [facility] Urea nitrogen [Mass/Vol] 24.0 mg/dL High 7.0-18.0 [facility] Urea nitrogen/Creatinine [Mass ratio] 20.3 mg/mg [facility] Laboratory - Hematology and Cell countson 09-21-2024 Immature granulocytes/100 WBC (Bld) 0.5 % 0.0-0.5 [facility] Leukocytes [#/volume] correc markie for nucleated erythrocytes in Blood by Automated counon 09-21-2024 WBC corrected for nucl RBC Auto (Bld) [#/Vol] Leukocytes [#/volume] corrected for nucleated erythrocytes in Blood by Automated coun [facility] 4.0-11.0 [facility] WBC corrected for nucl RBC Auto (Bld) [#/Vol] 11.9 10 3/uL High 4.0-11.0 [facility] Lymphocytes Auto (Bld) [#/Vo l]on 09-21-2024 Lymphocytes (Bld) [#/Vol] Lymphocytes [#/volume] in Blood by Automated count 1.2-3.8 [facility] Lymphocytes (Bld) [#/Vol] 1.9 10 3/uL 1.2-3.8 [facility] Lymphocytes/100 WBC Auto (Bl d)on 09-21-2024 Lymphocytes/100 WBC (Bld) Lymphocytes/100 leukocytes in Blood by Automated count Low 20.5-60.0 [facility] Lymphocytes/100 WBC (Bld) 15.9 % Low 20.5-60.0 [facility] MCH Auto (RBC) [Entitic mass ]on 09-21-2024 MCH (RBC) [Entitic mass] MCH [Entitic mass] by Automated count 25.9-34.0 [facility] MCH (RBC) [Entitic mass] 30.8 pg 25.9-34.0 [facility] MCHC Auto (RBC) [Mass/Vol]on 09-21-2024 MCHC (RBC) [Mass/Vol] MCHC [Mass/volume] by Automated count 29.9-35.2 [facility] MCHC (RBC) [Mass/Vol] 33.9 g/dL 29.9-35.2 [facility] MCV Auto (RBC) [Entitic vol] on 09-21-2024 MCV (RBC) [Entitic vol] MCV [Entitic volume] by Automated count 80.0-94.0 [facility] MCV (RBC) [Entitic vol] 90.7 fL 80.0-94.0 [facility] Monocytes Auto (Bld) [#/Vol] on 09-21-2024 Monocytes (Bld) [#/Vol] Automated blood monocyte count High 0.3-0.8 [facility] Monocytes (Bld) [#/Vol] 1.5 10 3/uL High 0.3-0.8 [facility] Monocytes/100 WBC Auto (Bld) on 09-21-2024 Monocytes/100 WBC (Bld) Automated monocyte % High 1.7-12.0 [facility] Monocytes/100 WBC (Bld) 12.6 % High 1.7-12.0 [facility] Neutrophils Auto (Bld) [#/Vo l]on 09-21-2024 Neutrophils (Bld) [#/Vol] Neutrophils [#/volume] in Blood by Automated count High 1.4-6.5 [facility] Neutrophils (Bld) [#/Vol] 8.4 10 3/uL High 1.4-6.5 [facility] Neutrophils/100 WBC Auto (Bl d)on 09-21-2024 Neutrophils/100 WBC (Bld) Automated neutrophil % 43.0-75.0 [facility] Neutrophils/100 WBC (Bld) 70.2 % 43.0-75.0 [facility] No Panel Informationon 09-21 Eosinophils # (Auto) 0.0 10 3/uL 0.0-0.7 [facility] Immature Granulocyte # (Auto) 0.06 10 3/uL High 0.00-0.03 [facility] Platelet mean volume Auto (B ld) [Entitic vol]on 09-21-2024 Platelet mean volume (Bld) [Entitic vol] Platelet mean volume [Entitic volume] in Blood by Automated count 9.5-13.5 [facility] Platelet mean volume (Bld) [Entitic vol] 9.7 fL 9.5-13.5 [facility] Platelets Auto (Bld) [#/Vol] on 09-21-2024 Platelets (Bld) [#/Vol] Platelets [#/volume] in Blood by Automated count 150-450 [facility] Platelets (Bld) [#/Vol] 314 10 3/uL 150-450 [facility] RBC Auto (Bld) [#/Vol]on RBC (Bld) [#/Vol] Erythrocytes [#/volume] in Blood by Automated count Low 4.70-6.10 [facility] RBC (Bld) [#/Vol] 3.77 10 6/uL Low 4.70-6.10 [facility] Serum or plasma albumin/glob ulin mass ratioon 09-21-2024 Albumin/Globulin [Mass ratio] Serum or plasma albumin/globulin mass ratio [facility] Albumin/Globulin [Mass ratio] 0.3 {ratio} [facility] Serum or plasma anion gap de terminationon 09-21-2024 Anion gap [Moles/Vol] Serum or plasma anion gap determination [facility] Anion gap [Moles/Vol] 14.1 mmol/L [facility] Basophils Auto (Bld) [#/Vol] on 09-20-2024 Basophils (Bld) [#/Vol] Automated basophil count 0.0-0.1 [facility] Basophils (Bld) [#/Vol] 0.1 10 3/uL 0.0-0.1 [facility] Basophils/100 WBC Auto (Bld) on 09-20-2024 Basophils/100 WBC (Bld) Automated basophil % 0.2-2.0 [facility] Basophils/100 WBC (Bld) 0.8 % 0.2-2.0 [facility] Eosinophils/100 WBC Auto (Bl d)on 09-20-2024 Eosinophils/100 WBC (Bld) Automated eosinophil % Low 0.9-7.0 [facility] Eosinophils/100 WBC (Bld) 0.0 % Low 0.9-7.0 [facility] Erythrocyte distribution wid th Auto (RBC) [Ratio]on 09-20-2024 Erythrocyte distribution width (RBC) [Ratio] Erythrocyte distribution width [Ratio] by Automated count 11.0-15.0 [facility] Erythrocyte distribution width (RBC) [Ratio] 11.2 % 11.0-15.0 [facility] Estimated glomerular filtrat ion rate (GFR) non- Americanon 09-20-2024 GFR/1.73 sq M.predicted among non-blacks MDRD (S/P/Bld) [Vol rate/Area] Estimated glomerular filtration rate (GFR) non- Low >=60 mL/min/1.73m 2 [facility] GFR/1.73 sq M.predicted among non-blacks MDRD (S/P/Bld) [Vol rate/Area] 52 mL/min/{1.73_m2} Low >=60 mL/min/1.73m 2 [facility] Globulin Calc (S) [Mass/Vol] on 09-20-2024 Globulin (S) [Mass/Vol] Serum globulin measurement by calculation (mass/volume) [facility] Globulin (S) [Mass/Vol] 6.6 g/dL [facility] Hematocrit Auto (Bld) [Volum e fraction]on 09-20-2024 Hematocrit (Bld) [Volume fraction] Hematocrit [Volume Fraction] of Blood by Automated count Low 42.0-54.0 [facility] Hematocrit (Bld) [Volume fraction] 41.1 % Low 42.0-54.0 [facility] Hemoglobin [Mass/volume] in Bloodon 09-20-2024 Hemoglobin (Bld) [Mass/Vol] Hemoglobin [Mass/volume] in Blood 14.0-18.0 [facility] Hemoglobin (Bld) [Mass/Vol] 14.0 g/dL 14.0-18.0 [facility] Laboratory - Chemistry and C hemistry - challengeon 09-20-2024 Albumin [Mass/Vol] 2.4 g/dL Low 3.4-5.0 [facility] ALP [Catalytic activity/Vol] 101 U/L 46-116 [facility] ALT [Catalytic activity/Vol] 25 U/L 16-63 [facility] AST [Catalytic activity/Vol] 28 U/L 15-37 [facility] Bilirubin [Mass/Vol] 0.7 mg/dL 0.2-1.0 [facility] Calcium [Mass/Vol] 9.6 mg/dL 8.5-10.1 [facility] Chloride [Moles/Vol] 99 mmol/L 98-107 [facility] CO2 [Moles/Vol] 28.1 mmol/L 21.0-32.0 [facility] Creatinine [Mass/Vol] 1.37 mg/dL High 0.70-1.30 [facility] GFR/1.73 sq M.predicted MDRD (S/P/Bld) [Vol rate/Area] mL/min/{1.73_m2} >=60 mL/min/1.73m 2 [facility] Glucose [Mass/Vol] 130 mg/dL High 74-106 [facility] Potassium [Moles/Vol] 4.5 mmol/L 3.5-5.1 [facility] Protein [Mass/Vol] 9.0 g/dL High 6.4-8.2 [facility] Sodium [Moles/Vol] 132 mmol/L Low 136-145 [facility] Urea nitrogen [Mass/Vol] 18.0 mg/dL 7.0-18.0 [facility] Urea nitrogen/Creatinine [Mass ratio] 13.1 mg/mg [facility] Laboratory - Hematology and Cell countson 09-20-2024 ESR (Bld) [Velocity] mm/h High <=20 [facility] Immature granulocytes/100 WBC (Bld) 0.3 % 0.0-0.5 [facility] Leukocytes [#/volume] correc markie for nucleated erythrocytes in Blood by Automated counon 09-20-2024 WBC corrected for nucl RBC Auto (Bld) [#/Vol] Leukocytes [#/volume] corrected for nucleated erythrocytes in Blood by Automated coun High 4.0-11.0 [facility] WBC corrected for nucl RBC Auto (Bld) [#/Vol] 11.9 10 3/uL High 4.0-11.0 [facility] Lymphocytes Auto (Bld) [#/Vo l]on 09-20-2024 Lymphocytes (Bld) [#/Vol] Lymphocytes [#/volume] in Blood by Automated count 1.2-3.8 [facility] Lymphocytes (Bld) [#/Vol] 1.9 10 3/uL 1.2-3.8 [facility] Lymphocytes/100 WBC Auto (Bl d)on 09-20-2024 Lymphocytes/100 WBC (Bld) Lymphocytes/100 leukocytes in Blood by Automated count Low 20.5-60.0 [facility] Lymphocytes/100 WBC (Bld) 15.9 % Low 20.5-60.0 [facility] MCH Auto (RBC) [Entitic mass ]on 09-20-2024 MCH (RBC) [Entitic mass] MCH [Entitic mass] by Automated count 25.9-34.0 [facility] MCH (RBC) [Entitic mass] 30.8 pg 25.9-34.0 [facility] MCHC Auto (RBC) [Mass/Vol]on 09-20-2024 MCHC (RBC) [Mass/Vol] MCHC [Mass/volume] by Automated count 29.9-35.2 [facility] MCHC (RBC) [Mass/Vol] 34.1 g/dL 29.9-35.2 [facility] MCV Auto (RBC) [Entitic vol] on 09-20-2024 MCV (RBC) [Entitic vol] MCV [Entitic volume] by Automated count 80.0-94.0 [facility] MCV (RBC) [Entitic vol] 90.5 fL 80.0-94.0 [facility] Monocytes Auto (Bld) [#/Vol] on 09-20-2024 Monocytes (Bld) [#/Vol] Automated blood monocyte count High 0.3-0.8 [facility] Monocytes (Bld) [#/Vol] 1.4 10 3/uL High 0.3-0.8 [facility] Monocytes/100 WBC Auto (Bld) on 09-20-2024 Monocytes/100 WBC (Bld) Automated monocyte % High 1.7-12.0 [facility] Monocytes/100 WBC (Bld) 12.1 % High 1.7-12.0 [facility] Neutrophils Auto (Bld) [#/Vo l]on 09-20-2024 Neutrophils (Bld) [#/Vol] Neutrophils [#/volume] in Blood by Automated count High 1.4-6.5 [facility] Neutrophils (Bld) [#/Vol] 8.5 10 3/uL High 1.4-6.5 [facility] Neutrophils/100 WBC Auto (Bl d)on 09-20-2024 Neutrophils/100 WBC (Bld) Automated neutrophil % 43.0-75.0 [facility] Neutrophils/100 WBC (Bld) 70.9 % 43.0-75.0 [facility] No Panel Informationon 09-20 C-Reactive Protein, Quantitative 6.32 mg/dL High <=0.50 [facility] Eosinophils # (Auto) 0.0 10 3/uL 0.0-0.7 [facility] Immature Granulocyte # (Auto) 0.04 10 3/uL High 0.00-0.03 [facility] Platelet mean volume Auto (B ld) [Entitic vol]on 09-20-2024 Platelet mean volume (Bld) [Entitic vol] Platelet mean volume [Entitic volume] in Blood by Automated count 9.5-13.5 [facility] Platelet mean volume (Bld) [Entitic vol] 9.5 fL 9.5-13.5 [facility] Platelets Auto (Bld) [#/Vol] on 09-20-2024 Platelets (Bld) [#/Vol] Platelets [#/volume] in Blood by Automated count 150-450 [facility] Platelets (Bld) [#/Vol] 401 10 3/uL 150-450 [facility] RBC Auto (Bld) [#/Vol]on RBC (Bld) [#/Vol] Erythrocytes [#/volume] in Blood by Automated count Low 4.70-6.10 [facility] RBC (Bld) [#/Vol] 4.54 10 6/uL Low 4.70-6.10 [facility] Serum or plasma albumin/glob ulin mass ratioon 09-20-2024 Albumin/Globulin [Mass ratio] Serum or plasma albumin/globulin mass ratio [facility] Albumin/Globulin [Mass ratio] 0.4 {ratio} [facility] Serum or plasma anion gap de terminationon 09-20-2024 Anion gap [Moles/Vol] Serum or plasma anion gap determination [facility] Anion gap [Moles/Vol] 9.4 mmol/L [facility] Creatinine [Mass/volume] in UrineOrdered By: Yolette Pierre on 06-18-2024 Creatinine (U) [Mass/Vol] Creatinine [Mass/volume] in Urine [facility] Comment on above: No reference range e stablished MicroAlb Creat Ratio,Uon Albumin DL <= 20 mg/L (U) [Mass/Vol] mg/dL High 0.0-1.8 [facility] Comment on above: Performed By: #### U RMACRERAT #### [facility] [address] Creatinine, Urine (Random) 123.00 mg/dL Normal [facility] Comment on above: Result Comment: No r eference range established Performed By: #### U RMACRERAT #### [facility] [address] Microalbumin/Creatinin e Ratio Not performed Normal 0.0-30.0 [facility] Comment on above: Result Comment: PERF ORMED BY: [facility] [address] [place] [address] PATHOLOGIST [employer] JAMIL BONILLA M.D. Performed By: #### U RMACRERAT #### [facility] [address] Microalbumin [Mass/volume] i n UrineOrdered By: Yolette Pierre on 06-18-2024 Albumin DL <= 20 mg/L (U) [Mass/Vol] Microalbumin [Mass/volume] in Urine High 0.0-1.8 [facility] Urine microalbumin/creatinin e mass ratioOrdered By: Yolette Pierre on 06-18-2024 Albumin/Creatinine DL <= 20 mg/L (U) [Mass ratio] Urine microalbumin/creatin ine mass ratio [facility] Comment on above: Test not performed HbA1c HPLC (Bld) [Mass fract ion]on 04-23-2024 HbA1c (Bld) [Mass fraction] Hemoglobin A1c/Hemoglobin.total in Blood by HPLC [facility] No Panel Informationon 04-23 Bedside Glucose [address] [facility] [address] ABDOMEN WO CONTon 024 [...] Camarena MD on 04/11/2024 11:15 AM Normal [facility] CT CHEST WO CONTon CT CHEST [...] Guido MD on 04/11/2024 11:15 AM Normal [facility] HbA1c HPLC (Bld) [Mass fract ion]on 09-10-2023 HbA1c (Bld) [Mass fraction] 6.4 % [facility] No Panel Informationon 09-09 Bedside Glucose 126 [facility] A1C HEMOGLOBINon 06-05-2023 HbA1c (Bld) [Mass fraction] 6.9 % [employer] Other Glucose - FINGER STICKon Glucose [Mass/Vol] 132 mg/dL [employer] Other HbA1c (Bld) [Mass fraction]o n 06-05-2023 A1C HEMOGLOBIN [employer] Other A1C HEMOGLOBINon 02-27-2023 HbA1c (Bld) [Mass fraction] 6.4 % [employer] Other Creatinine [Mass/volume] in UrineOrdered By: Yolette Pierre on 02-27-2023 Creatinine (U) [Mass/Vol] 89.0 mg/dL 14.0-26.0 [facility] Glucose - FINGER STICKon Glucose [Mass/Vol] 132 mg/dL [employer] Other HbA1c (Bld) [Mass fraction]o n 02-27-2023 A1C HEMOGLOBIN [employer] Other [employer] Creat Ratio,Uon Creatinine (U) [Mass/Vol] 89.6781337 mg/dL High 14.0-26.0 mg/dL [employer] Other MicroAlb Creat Ratio,UOrdere d By: Yolette Pierre on 02-27-2023 Albumin DL <= 20 mg/L (U) [Mass/Vol] mg/dL 0.0-1.8 [facility] Albumin/Creatinine DL <= 20 mg/L (U) [Mass ratio] TNP [facility] Comment on above: Test not performed Glucose - FINGER STICKon Glucose [Mass/Vol] 160 mg/dL [employer] Other A1C HEMOGLOBINon 10-03-2022 HbA1c (Bld) [Mass fraction] 7.0 % [employer] Other Glucose - FINGER STICKon Glucose [Mass/Vol] 88 mg/dL [place] [employer] Other HbA1c (Bld) [Mass fraction]o n 10-03-2022 A1C HEMOGLOBIN [place] [employer] Other Glucose - FINGER STICKon Glucose [Mass/Vol] 137 mg/dL [place] [employer] Other A1C HEMOGLOBINon 05-05-2022 HbA1c (Bld) [Mass fraction] 7.5 % [place] [employer] Other Glucose - FINGER STICKon Glucose [Mass/Vol] 199 mg/dL [place] [employer] Other HbA1c (Bld) [Mass fraction]o n 05-05-2022 A1C HEMOGLOBIN [place] [employer] Other A1C HEMOGLOBINon 02-03-2022 HbA1c (Bld) [Mass fraction] 7.7 % [place] [employer] Other Glucose - FINGER STICKon Glucose - FINGER STICK [facility] Other A1C HEMOGLOBINon 11-01-2021 HbA1c (Bld) [Mass fraction] 8.1 % [place] [employer] Other Glucose - FINGER STICKon Glucose [Mass/Vol] 232 mg/dL [place] [employer] Other HbA1c (Bld) [Mass fraction]o n 11-01-2021 A1C HEMOGLOBIN [place] [employer] Other A1C HEMOGLOBINon 07-20-2021 HbA1c (Bld) [Mass fraction] 8.0 % [place] [employer] Other Glucose - FINGER STICKon Glucose [Mass/Vol] 159 mg/dL [place] [employer] Other HbA1c (Bld) [Mass fraction]o n 07-20-2021 A1C HEMOGLOBIN [place] [employer] Other ACETONE SERUMon 04-08-2020 ACETONE SMALL Normal NEGATIVE [facility] Comment on above: Performed By: #### A CETON ####[facility] [address] [place], [place] [address]Thzxkf Karen BNPon 04-08-2020 Natriuretic peptide B (Bld) [Mass/Vol] 72.0 pg/mL Normal <=900.0 [facility] Comment on above: Performed By: #### C MP, TSH, TROP, BNP #### [facility] [address] [place], [place] [address] Kishaunruly Teresa CBC AUTO DIFFon 04-08-2020 Basophils (Bld) [#/Vol] 0.0 103/ul Normal 0.0-0.1 [facility] Comment on above: Performed By: #### C BC #### [facility] [address] [address] Kisha Teresa Basophils/100 WBC (Bld) 0.4 % Normal 0.2-2.0 [facility] Comment on above: Performed By: #### C BC #### [facility] [address] [place], [place] [address] Kishaunruly Costelloen Eosinophils (Bld) [#/Vol] 0.0 103/ul Normal 0.0-0.7 [facility] Comment on above: Performed By: #### C BC #### [facility] [address] [place], [place] [address] Kisha Teresa Eosinophils/100 WBC (Bld) 0.0 % Critically low 0.9-7.0 [facility] Comment on above: Performed By: #### C BC #### [facility] [address] [place], [place] [address] Kisha Teresa Erythrocyte distribution width (RBC) [Ratio] 13.3 % Normal 11.0-15.0 [facility] Comment on above: Performed By: #### C BC #### [facility] [address] [id number] Kishaunruly Teresa Hematocrit (Bld) [Volume fraction] 45.3 % Normal 42.0-54.0 [facility] Comment on above: Performed By: #### C BC #### [facility] [address] [id number] Kisha Brii Hemoglobin (Bld) [Mass/Vol] 15.9 g/dL Normal 14.0-18.0 [facility] Comment on above: Performed By: #### C BC #### [facility] [address] [phone] Kisha Brii IG # 0.03 10e3/ul Normal 0.00-0.03 [facility] Comment on above: Performed By: #### C BC #### [facility] [address] [phone] Kisha Brii IG % 0.6 % Critically high 0.0-0.5 [facility] Comment on above: Performed By: #### C BC #### [facility] [address] [place], [place] [phone] Kisha Brii Lymphocytes (Bld) [#/Vol] 1.8 103/ul Normal 1.2-3.8 [facility] Comment on above: Performed By: #### C BC #### [facility] [address] [place], [place] [phone] Kisha Brii Lymphocytes/100 WBC (Bld) 37.3 % Normal 20.5-60.0 [facility] Comment on above: Performed By: #### C BC #### [facility] [address] [place], [place] [phone] Kisha Brii MANUAL DIFF REQ NO Normal [facility] Comment on above: Performed By: #### C BC #### [facility] [address] [place], [place] [phone] Kisha Brii MCH (RBC) [Entitic mass] 31.4 pg Normal 25.9-34.0 [facility] Comment on above: Performed By: #### C BC #### [facility] [address] [place], [place] [phone] Kisha Brii MCHC (RBC) [Mass/Vol] 35.1 g/dL Normal 29.9-35.2 [facility] Comment on above: Performed By: #### C BC #### [facility] [address] [place], [place] [address] Kisha Brii MCV (RBC) [Entitic vol] 89.3 fL Normal 80.0-94.0 [facility] Comment on above: Performed By: #### C BC #### [facility] [address] [place], [place] [address] Kisha Brii Monocytes (Bld) [#/Vol] 0.7 103/ul Normal 0.3-0.8 [facility] Comment on above: Performed By: #### C BC #### [facility] [address] [phone] Kisha Brii Monocytes/100 WBC (Bld) 14.5 % Critically high 1.7-12.0 [facility] Comment on above: Performed By: #### C BC #### [facility] [address] [place], [place] [phone] Kisha Brii Neutrophils (Bld) [#/Vol] 2.3 103/ul Normal 1.4-6.5 [facility] Comment on above: Performed By: #### C BC #### [facility] [address] [place], [place] [phone] Kisha Brii Neutrophils/100 WBC (Bld) 47.2 % Normal 43.0-75.0 [facility] Comment on above: Performed By: #### C BC #### [facility] [address] [place], [place] [phone] Kisha Brii Platelet mean volume (Bld) [Entitic vol] 11.7 fL Normal 9.5-13.5 [facility] Comment on above: Performed By: #### C BC #### [facility] [address] [place] [id number] Kisha Brii Platelets (Bld) [#/Vol] 157 103/ul Normal 150-450 [facility] Comment on above: Performed By: #### C BC #### [facility] [address] [place], [place] [phone] Kisha Brii RBC (Bld) [#/Vol] 5.07 106/ul Normal 4.70-6.10 [facility] Comment on above: Performed By: #### C BC #### [facility] [address] [place], [place] [address] Kisha Teresa WBC (Bld) [#/Vol] 4.9 103/ul Normal 4.0-11.0 [facility] Comment on above: Performed By: #### C #### [facility] [address] [place], [place] [address] Kisha Teresa CTA CHEST WO W CONon [...] NORY WAN Date: 2020-04-08 12:41 Normal [facility] D-DIMERon 04-08-2020 D-DIMER COMMENTS SEE BELOW Normal [facility] Comment on above: Result Comment: Incr eases [...] Performed By: #### D DIM, PTT, PT ####[facility] [id number] [place], [place] [address]Qnfffj Brii Fibrin D-dimer FEU IA (Bld) [Mass/Vol] 1.16 ug/mL Critically high 0.19-0.50 [facility] Comment on above: Result Comment: test repeated critcal value verified Performed By: #### D DIM, PTT, PT ####[facility] [id number] [place], [place] [address]Hnrubn Brii PH VENOUS BLOODon 04-08-2020 PCO2 VENOUS 46.4 mmHg Normal 40.0-52.0 [facility] Comment on above: Performed By: #### P HVEN #### [facility] [address] [address] Kisha Brii pH VENOUS 7.37 Normal 7.33-7.43 [facility] Comment on above: Performed By: #### P HVEN #### [facility] [address] [place] [address] Kisha Teresa PROF 14(COMP METB)on 020 Albumin [Mass/Vol] 2.4 g/dL Critically low 3.5-5.0 [facility] Comment on above: Performed By: #### C MP, TSH, TROP, BNP #### [facility] [address] [place], [place] [id number] Kisha Brii Albumin/Globulin [Mass ratio] 0.4 {ratio} Normal [facility] Comment on above: Performed By: #### C MP, TSH, TROP, BNP #### [facility] [address] [place] [address] Kisha Brii ALP [Catalytic activity/Vol] 68 U/L Normal 38-126 [facility] Comment on above: Performed By: #### C MP, TSH, TROP, BNP #### [facility] [address] [place] [address] Kisha Brii ALT [Catalytic activity/Vol] 33 U/L Normal 21-72 [facility] Comment on above: Performed By: #### C MP, TSH, TROP, BNP #### [facility] [address] [id number] Kisha Brii Anion gap [Moles/Vol] 10.1 mmol/L Normal [facility] Comment on above: Performed By: #### C MP, TSH, TROP, BNP #### [facility] [address] [address] Kisha Brii AST [Catalytic activity/Vol] 50 U/L Normal 17-59 [facility] Comment on above: Performed By: #### C MP, TSH, TROP, BNP #### [facility] [address] [address] Kisha Brii Bilirubin Ql (U) 0.9 mg/dL Normal 0.2-1.3 [facility] Comment on above: Performed By: #### C MP, TSH, TROP, BNP #### [facility] [address] [address] Kisha Brii Calcium [Mass/Vol] 8.7 mg/dL Normal 8.4-10.2 [facility] Comment on above: Performed By: #### C MP, TSH, TROP, BNP #### [facility] [address] [address] Kisha Brii Chloride [Moles/Vol] 96 mmol/L Critically low 98-107 [facility] Comment on above: Performed By: #### C MP, TSH, TROP, BNP #### [facility] [address] [address] Kisha Brii CO2 [Moles/Vol] 27.9 mmol/L Normal 22.0-30.0 [facility] Comment on above: Performed By: #### C MP, TSH, TROP, BNP #### [facility] [address] [address] Kisha Brii Creatinine [Mass/Vol] 1.13 mg/dL Normal 0.66-1.25 [facility] Comment on above: Performed By: #### C MP, TSH, TROP, BNP #### [facility] [address] [id number] Kisha Brii EGFR-AF SOUTH AFRICAN >60 Normal >=60 [facility] Comment on above: Performed By: #### C MP, TSH, TROP, BNP #### [facility] [address] [address] Kisha Brii EGFR-NON AF SOUTH AFRICAN >60 Normal >=60 [facility] Comment on above: Performed By: #### C MP, TSH, TROP, BNP #### [facility] [address] [place] [address] Kisha Brii Globulin (S) [Mass/Vol] 5.8 g/dL Normal [facility] Comment on above: Performed By: #### C MP, TSH, TROP, BNP #### [facility] [address] [place] [address] Kisha Brii Glucose [Mass/Vol] 263 mg/dL Critically high 74-106 T [facility] Comment on above: Performed By: #### C MP, TSH, TROP, BNP #### [facility] [address] [place] [address] Kisha Brii Potassium [Moles/Vol] 3.0 mmol/L Critically low 3.4-5.0 [facility] Comment on above: Performed By: #### C MP, TSH, TROP, BNP #### [facility] [address] [place] [address] Kisha Brii Protein [Mass/Vol] 8.2 g/dL Normal 6.1-8.2 [facility] Comment on above: Performed By: #### C MP, TSH, TROP, BNP #### [facility] [address] [place] [address] Kisha Brii Sodium [Moles/Vol] 131 mmol/L Critically low 137-145 [facility] Comment on above: Performed By: #### C MP, TSH, TROP, BNP #### [facility] [address] [place] [address] Kisha Brii Urea nitrogen [Mass/Vol] 15.0 mg/dL Normal 9.0-20.0 [facility] Comment on above: Performed By: #### C MP, TSH, TROP, BNP #### [facility] [address] [place] [address] Kisha Brii Urea nitrogen/Creatinine [Mass ratio] 13.3 mg/mg Normal [facility] Comment on above: Performed By: #### C MP, TSH, TROP, BNP #### [facility] [address] [place], [place] [address] Kisha Teresa PROTIMEon 04-08-2020 INR Coag (PPP) [Relative time] 1.03 {INR} Normal [facility] Comment on above: Performed By: #### D DIM, PTT, PT ####[facility] [id number] [place], [place] [address]RtoywqKisha Teresa PT Coag (PPP) [Time] 10.9 s Normal 9.0-11.6 [facility] Comment on above: Performed By: #### D DIM, PTT, PT ####[facility] [id number] [place], [place] [address]QewajzKisha Teresa PT Coag (PPP) [Time] SEE BELOW Normal [facility] Comment on above: Result Comment: PIO RED INR: 2.0 - 3.0 CONDITIONS NOT LISTED BELOW 2.5 - 3.5 FOR PROSTHETIC HEART VALVE REPLACEMENT 2.5 - 3.5 RECURRENT THROMBOSIS Performed By: #### D DIM, PTT, PT ####[facility] [id number] [place], [place] [address]EgktgmKisha Teresa PTTon 04-08-2020 aPTT Coag (Bld) [Time] PLEASE NOTE: NORM AL RANGE CHANGE 03-31-2015 DUE TO REAGENT LOT CHANGE Normal [facility] Comment on above: Performed By: #### D DIM, PTT, PT #### [facility] [address] [place], [place] [address] Kisha Teresa aPTT Coag (Bld) [Time] 26.7 s Normal 22.3-36.2 Th e [facility] Comment on above: Performed By: #### D DIM, PTT, PT #### [facility] [address] [place], [place] [address] Kisha Teresa Rapid Covid-19 PCR (CVDRPD)o n 04-08-2020 [employer] LDT Info SEE BELOW Normal [facility] Comment on above: Result Comment: This test is not yet approved or cleared by the [place] Food and Drug Administration (FDA) . This test was developed by [employer] [place]. The performance characteristics of this test were validated by The [facility]. The results are not intended to be used as the sole means for clinical diagnosis or patient management decisions. The [facility] is authorized under Clinical Laboratory Improvement Amendments (CLIA) to perform high-complexity testing. When diagnostic testing is negative, the possibility of a false negative should be considered in the context of a patients recent exposures and the presence of clinical signs and symptoms consistent with SARS-CoV-2. Performed By: #### C VDRPD #### [facility] [address] [place] [address] SARS-CoV-2 DETECTED NOT DETECTED [facility] Comment on above: Result Comment: . Performed By: #### C VDRPD #### [facility] [address] [place] [address] TROPONIN - Ion 04-08-2020 Troponin I.cardiac [Mass/Vol] SEE BELOW Normal [facility] Comment on above: Result Comment: <0.0 34 ng/ml NEGATIVE 0.034-0.119 INDETERMINATE 0.120 AMI CUT OFF Performed By: #### C MP, TSH, TROP, BNP #### [facility] [address] [place] [address] Troponin I.cardiac [Mass/Vol] ng/mL Normal <=0.034 [facility] Comment on above: Performed By: #### C MP, TSH, TROP, BNP #### [facility] [address] [place] [address] Kisha Brii TSHon 04-08-2020 TSH Qn 2.851 uIU/mL Normal 0.470-4.680 [facility] Comment on above: Performed By: #### C MP, TSH, TROP, BNP #### [facility] [address] [place] [address] TSH Qn SEE BELOW Normal [facility] Comment on above: Result Comment: <0.3 4 UIU/ml HYPERTHYROID 0.34-5.60 UIU/ml EUTHYROID >5.60 UIU/ml HYPOTHYROID Performed By: #### C MP, TSH, TROP, BNP #### [facility] [address] [address] Kisha Teresa XR CHEST 1 Von 04-08-2020 [...] NORY WAN Date: 2020-04-08 11:49 Normal [facility] Vital Signs Date Time Vital Sign Value Performing Clinician Faci lity 01-01-2025 09:05-0400 Body height 173.99 cm Yolette Pierre CEREAL MAKER Work Phone: [facility] 01-01-2025 09:05-0400 Body mass index (BMI) [Ratio] 24.8 kg/m2 Yolette Segally CEREAL MAKER Work Phone: [facility] 01-01-2025 09:05-0400 Body weight 75.2 kg Yolette Pierre CEREAL MAKER Work Phone: [facility] 01-01-2025 09:05-0400 Diastolic blood pressure 90 mm[Hg] Yolette Segally CEREAL MAKER Work Phone: [facility] 01-01-2025 09:05-0400 Heart rate 81 /min Yolette Segally CEREAL MAKER Work Phone: [facility] 01-01-2025 09:05-0400 Respiratory rate 18 /min Yolette Pierre CEREAL MAKER Work Phone: [facility] 01-01-2025 09:05-0400 SaO2% (BldA) [Mass fraction] 100 % Yolette Scally CEREAL MAKER Work Phone: [facility] 01-01-2025 09:05-0400 Systolic blood pressure 136 mm[Hg] Yolette Pierre CEREAL MAKER Work Phone: [facility] 10-23-2024 10:55-0400 Body height 175.3 cm Jamil Culver MD Work Phone: [facility] 10-23-2024 10:55-0400 Body mass index (BMI) [Ratio] 23.63 kg/m2 Jamil Culver MD Work Phone: [facility] 10-23-2024 10:55-0400 Body weight 72.58 kg Jamil Culver MD Work Phone: [facility] 10-23-2024 10:55-0400 Diastolic blood pressure 76 mm[Hg] Jamil Culver MD Work Phone: [facility] 10-23-2024 10:55-0400 Heart rate 72 /min Jamil Culver MD Work Phone: [facility] 10-23-2024 10:55-0400 Systolic blood pressure 112 mm[Hg] Jaiml Culver MD Work Phone: [facility] 10-09-2024 08:41-0400 Body height 173.99 cm Mayra Spears DPM Work Phone: [facility] 10-09-2024 08:41-0400 Body mass index (BMI) [Ratio] 24 kg/m2 Mayra Spears DPM Work Phone: [facility] 10-09-2024 08:41-0400 Body weight 72.6 kg Mayra Spears DPM Work Phone: [facility] 10-09-2024 08:41-0400 Diastolic blood pressure 66 mm[Hg] Mayra Spears DPM Work Phone: [facility] 10-09-2024 08:41-0400 Heart rate 88 /min Mayra Spears DPM Work Phone: [facility] 10-09-2024 08:41-0400 Respiratory rate 18 /min Mayra Spears DPM Work Phone: [facility] 10-09-2024 08:41-0400 SaO2% (BldA) [Mass fraction] 98 % Mayra Spears DPM Work Phone: [facility] 10-09-2024 08:41-0400 Systolic blood pressure 91 mm[Hg] Mayra Spears DPM Work Phone: [facility] 06-18-2024 08:41-0500 Body height 173.99 cm [facility] 06-18-2024 08:41-0500 Body mass index (BMI) [Ratio] 26.9 kg/m2 [facility] 06-18-2024 08:41-0500 Body weight 81.4 kg [facility] 06-18-2024 08:41-0500 Diastolic blood pressure 86 mm[Hg] [facility] 06-18-2024 08:41-0500 Heart rate 74 /min [facility] 06-18-2024 08:41-0500 Respiratory rate 18 /min [facility] 06-18-2024 08:41-0500 SaO2% (BldA) [Mass fraction] 99 % [facility] 06-18-2024 08:41-0500 Systolic blood pressure 138 mm[Hg] [facility] 04-23-2024 09:26-0500 Body height 173.99 cm [facility] 04-23-2024 09:26-0500 Body mass index (BMI) [Ratio] 26.8 kg/m2 [facility] 04-23-2024 09:26-0500 Body weight 81.27 kg [facility] 04-23-2024 09:26-0500 Diastolic blood pressure 98 mm[Hg] [facility] 04-23-2024 09:26-0500 Heart rate 83 /min [facility] 04-23-2024 09:26-0500 Respiratory rate 18 /min [facility] 04-23-2024 09:26-0500 SaO2% (BldA) [Mass fraction] 98 % [facility] 04-23-2024 09:26-0500 Systolic blood pressure 142 mm[Hg] [facility] 04-07-2024 08:17-0500 Body height 175.3 cm Christopher Edi DO Work Phone: [facility] 04-07-2024 08:17-0500 Body mass index (BMI) [Ratio] 26.11 kg/m2 Christopher Edi DO Work Phone: [facility] 04-07-2024 08:17-0500 Body weight 80.2 kg Christopher Edi DO Work Phone: [facility] 04-07-2024 08:17-0500 Diastolic blood pressure 88 mm[Hg] Christopher Edi DO Work Phone: [facility] 04-07-2024 08:17-0500 Heart rate 84 /min Christopher Edi DO Work Phone: [facility] 04-07-2024 08:17-0500 SaO2% (BldA) [Mass fraction] 98 % Christopher Edi DO Work Phone: [facility] 04-07-2024 08:17-0500 Systolic blood pressure 150 mm[Hg] Christopher Edi DO Work Phone: [facility] 01-21-2024 09:58-0400 Body height 173.99 cm [facility] 01-21-2024 09:58-0400 Body mass index (BMI) [Ratio] 25.5 kg/m2 [facility] 01-21-2024 09:58-0400 Body weight 77.28 kg [facility] 01-21-2024 09:58-0400 Diastolic blood pressure 91 mm[Hg] [facility] 01-21-2024 09:58-0400 Heart rate 82 /min [facility] 01-21-2024 09:58-0400 Respiratory rate 18 /min [facility] 01-21-2024 09:58-0400 SaO2% (BldA) [Mass fraction] 99 % [facility] 01-21-2024 09:58-0400 Systolic blood pressure 137 mm[Hg] [facility] 09-10-2023 08:17-0400 Body height 173.99 cm [facility] 09-10-2023 08:17-0400 Body mass index (BMI) [Ratio] 26.9 kg/m2 [facility] 09-10-2023 08:17-0400 Body weight 81.33 kg [facility] 09-10-2023 08:17-0400 Diastolic blood pressure 91 mm[Hg] [facility] 09-10-2023 08:17-0400 Heart rate 87 /min [facility] 09-10-2023 08:17-0400 Respiratory rate 18 /min [facility] 09-10-2023 08:17-0400 SaO2% (BldA) [Mass fraction] 99 % [facility] 09-10-2023 08:17-0400 Systolic blood pressure 134 mm[Hg] [facility] 06-05-2023 09:15-0500 Body height 173.99 cm Yolette Scally Other [facility] 06-05-2023 09:15-0500 Body mass index (BMI) [Ratio] 25.9 kg/m2 Yolette Scally Other [facility] [employer] Other 06-05-2023 09:15-0500 Body weight 78.43 kg Yolette Scally Other [facility] [employer] Other 06-05-2023 09:15-0500 Body weight 78.42 kg MD Annie Rodgers Work Phone: [facility] 06-05-2023 09:15-0500 Diastolic blood pressure 83 mm[Hg] Yolette Scally Other [facility] 06-05-2023 09:15-0500 Respiratory rate 18 /min Yoletet Scally Other [employer] Other 06-05-2023 09:15-0500 SaO2% (BldA) [Mass fraction] 99 % Yolette Scally Other [employer] Other 06-05-2023 09:15-0500 Systolic blood pressure 119 mm[Hg] Yolette Scally Other [facility] 02-27-2023 10:45-0400 Body height 173.99 cm Yolette Scally Other [employer] Other 02-27-2023 10:45-0400 Body mass index (BMI) [Ratio] 26.07 kg/m2 Yolette Scally Other [employer] Other 02-27-2023 10:45-0400 Body weight 78.93 kg Yolette Scally Other [employer] Other 02-27-2023 10:45-0400 Diastolic blood pressure 86 mm[Hg] Yolette Scally Other [employer] Other 02-27-2023 10:45-0400 Respiratory rate 18 /min Yolette Scally Other [employer] Other 02-27-2023 10:45-0400 SaO2% (BldA) [Mass fraction] 99 % Yolette Scally Other [employer] Other 02-27-2023 10:45-0400 Systolic blood pressure 126 mm[Hg] Yolette Scally Other [employer] Other 12-19-2022 08:45-0400 Body height 173.99 cm Yolette Scally Other [employer] Other 12-19-2022 08:45-0400 Body mass index (BMI) [Ratio] 26.37 kg/m2 Yolette Scally Other [employer] Other 12-19-2022 08:45-0400 Body weight 79.83 kg Yolette Scally Other [employer] Other 12-19-2022 08:45-0400 Diastolic blood pressure 95 mm[Hg] Yolette Scally Other [employer] Other 12-19-2022 08:45-0400 Respiratory rate 18 /min Yolette Scally Other [employer] Other 12-19-2022 08:45-0400 SaO2% (BldA) [Mass fraction] 98 % Yolette Scally Other [employer] Other 12-19-2022 08:45-0400 Systolic blood pressure 149 mm[Hg] Yolette Scally Other [employer] Other 10-03-2022 08:15-0400 Body height 173.99 cm Yolette Scally Other [employer] Other 10-03-2022 08:15-0400 Body mass index (BMI) [Ratio] 27.3 kg/m2 Yolette Scally Other [employer] Other 10-03-2022 08:15-0400 Body weight 82.65 kg Yolette Scally Other [employer] Other 10-03-2022 08:15-0400 Diastolic blood pressure 90 mm[Hg] Yolette Scally Other [employer] Other 10-03-2022 08:15-0400 Respiratory rate 18 /min Yolette Scally Other [employer] Other 10-03-2022 08:15-0400 SaO2% (BldA) [Mass fraction] 99 % Yolette Scally Other [employer] Other 10-03-2022 08:15-0400 Systolic blood pressure 142 mm[Hg] Yolette Scally Other [employer] Other 07-24-2022 10:30-0400 Body height 173.99 cm Annie Rodgers Other [employer] Other 07-24-2022 10:30-0400 Body mass index (BMI) [Ratio] 27.72 kg/m2 Annie Rodgers Other [employer] Other 07-24-2022 10:30-0400 Body weight 83.92 kg Annie Rodgers Other [employer] Other 07-24-2022 10:30-0400 Diastolic blood pressure 80 mm[Hg] Annie Rodgers Other [employer] Other 07-24-2022 10:30-0400 SaO2% (BldA) [Mass fraction] 97 % Annie Rodgers Other [employer] Other 07-24-2022 10:30-0400 Systolic blood pressure 130 mm[Hg] Annie Rodgers Other [employer] Other 06-28-2022 09:00-0500 Body height 175.26 cm Yolette Scally Other [employer] Other 06-28-2022 09:00-0500 Body mass index (BMI) [Ratio] 27.98 kg/m2 Yolette Scally Other [employer] Other 06-28-2022 09:00-0500 Body weight 85.96 kg Yolette Scally Other [employer] Other 06-28-2022 09:00-0500 Diastolic blood pressure Yolette Scally Other [employer] Other 06-28-2022 09:00-0500 Respiratory rate 18 /min Yolette Scally Other [employer] Other 06-28-2022 09:00-0500 SaO2% (BldA) [Mass fraction] 98 % Yolette Scally Other [employer] Other 06-28-2022 09:00-0500 Systolic blood pressure 116 mm[Hg] Yolette Scally Other [employer] Other 05-05-2022 09:15-0500 Body height 175.26 cm Yolette Scally Other [employer] Other 05-05-2022 09:15-0500 Body mass index (BMI) [Ratio] 28.84 kg/m2 Yolette Scally Other [employer] Other 05-05-2022 09:15-0500 Body weight 88.59 kg Yolette Scally Other [employer] Other 05-05-2022 09:15-0500 Diastolic blood pressure 67 mm[Hg] Yolette Scally Other [employer] Other 05-05-2022 09:15-0500 Respiratory rate 18 /min Yolette Scally Other [employer] Other 05-05-2022 09:15-0500 SaO2% (BldA) [Mass fraction] 97 % Yolette Scally Other [employer] Other 05-05-2022 09:15-0500 Systolic blood pressure 96 mm[Hg] Yolette Scally Other [employer] Other 02-03-2022 09:30-0400 Body height 175.26 cm Yolette Scally Other [employer] Other 02-03-2022 09:30-0400 Body mass index (BMI) [Ratio] 28.14 kg/m2 Yolette Scally Other [facility] [employer] Other 02-03-2022 09:30-0400 Body weight 86.46 kg Yolette Scally Other [facility] [employer] Other 02-03-2022 09:30-0400 Diastolic blood pressure 94 mm[Hg] Yolette Scally Other [facility] [employer] Other 02-03-2022 09:30-0400 Respiratory rate 18 /min Yolette Scally Other [employer] Other 02-03-2022 09:30-0400 SaO2% (BldA) [Mass fraction] 99 % Yolette Scally Other [facility] [employer] Other 02-03-2022 09:30-0400 Systolic blood pressure 141 mm[Hg] Yolette Scally Other [employer] Other 11-01-2021 10:15-0400 Body height 175.26 cm Yolette Scally Other [employer] Other 11-01-2021 10:15-0400 Body mass index (BMI) [Ratio] 27.76 kg/m2 Yolette Scally Other [employer] Other 11-01-2021 10:15-0400 Body weight 85.28 kg Yolette Scally Other [employer] Other 11-01-2021 10:15-0400 Diastolic blood pressure 92 mm[Hg] Yolette Scally Other [employer] Other 11-01-2021 10:15-0400 Respiratory rate 18 /min Yolette Scally Other [employer] Other 11-01-2021 10:15-0400 SaO2% (BldA) [Mass fraction] 99 % Yolette Scally Other [employer] Other 11-01-2021 10:15-0400 Systolic blood pressure 123 mm[Hg] Yolette Scally Other [employer] Other 07-20-2021 09:45-0400 Body height 175.26 cm Yolette Scally Other [employer] Other 07-20-2021 09:45-0400 Body mass index (BMI) [Ratio] 27.85 kg/m2 Yolettegibran Segally Other [employer] Other 07-20-2021 09:45-0400 Body weight 85.55 kg Yolette Segally Other [facility] [employer] Other 07-20-2021 09:45-0400 Diastolic blood pressure 93 mm[Hg] Yolette Philipply Other [employer] Other 07-20-2021 09:45-0400 Respiratory rate 20 /min Yolette Scally Other [facility] [employer] Other 07-20-2021 09:45-0400 SaO2% (BldA) [Mass fraction] 100 % Yolette Philipply Other [facility] [employer] Other 07-20-2021 09:45-0400 Systolic blood pressure 139 mm[Hg] Yolette Philipply Other [employer] Other Encounters Encounter Date Encounter Type Care Provider Facility Start: 01-01-2025 End: 01-01-2025 ambulatory NON STAFF [facility] Work Phone: Start: 01-01-2025 End: 01-01-2025 Patient encounter procedure Yolette Pierre CEREAL MAKER [employer] Work Phone: Start: 11-12-2024 End: 11-12-2024 ambulatory Francisco Walters JOINERY MACHINIST-C Work Phone: [facility] Work Phone: Start: 11-12-2024 End: 11-12-2024 Departed Referred Mayra Spears DPM [facility] Start: 10-29-2024 End: 10-29-2024 ambulatory Francisco Walters JOINERY MACHINIST-C Work Phone: [facility] Work Phone: Start: 10-29-2024 End: 10-29-2024 Departed Referred Mayra Spears DPM [facility] Start: 10-23-2024 End: 10-23-2024 Office outpatient visit 10 minutes Jamil Culver MD Work Phone: [facility] Comment on above: Critical limb ischem ia of right lower extremity with gangrene ([facility]) (Primary Dx) Start: 10-23-2024 End: 10-23-2024 ambulatory [facility] Start: 10-17-2024 End: 10-17-2024 ambulatory [facility] Start: 10-09-2024 End: 10-09-2024 ambulatory Mayra Spears DPM Work Phone: [facility] Work Phone: Start: 10-09-2024 End: 10-09-2024 Patient encounter procedure Mayra Spears DPM Work Phone: [facility] Work Phone: Start: 10-07-2024 End: 10-07-2024 ambulatory MAYRA Dinorah DAVIDMAURI [facility] Start: 09-25-2024 End: 09-25-2024 ambulatory [facility] Start: 09-24-2024 Non-patient / Non-visit Mayra Spears DPM Work Phone: [facility] Work Phone: Start: 09-23-2024 End: 09-23-2024 ambulatory Mayra Spears Facility:[facility] Start: 09-23-2024 End: 09-23-2024 Departed Referred Mayra Speasr DPM Work Phone: [facility] Start: 09-23-2024 Non-patient / Non-visit Mayra Spears DPM Work Phone: [facility] Work Phone: Start: 09-22-2024 Non-patient / Non-visit Mayra Spears DPM Work Phone: [facility] Work Phone: Start: 09-21-2024 Non-patient / Non-visit Mayra Spears DPM Work Phone: [facility] Work Phone: Start: 09-20-2024 Non-patient / Non-visit Mayra Spears DPM Work Phone: [facility] Work Phone: Start: 06-18-2024 End: 06-18-2024 ambulatory Yolette Pierre [facility] Work Phone: Start: 06-18-2024 End: 06-18-2024 Departed Referred Yolette Gabby CEREAL MAKER Work Phone: [facility] [place] Work Phone: Start: 06-18-2024 End: 06-18-2024 ambulatory [facility] Work Phone: Start: 06-18-2024 End: 06-18-2024 Patient encounter procedure [facility] Work Phone: Start: 04-23-2024 End: 04-23-2024 Patient encounter procedure [facility] Work Phone: Start: 04-11-2024 End: 04-11-2024 Emergency department patient [facility] Start: 04-07-2024 End: 04-07-2024 Bamboo flowsheet Melanie Daley DO Work Phone: [facility] Start: 04-07-2024 End: 04-07-2024 Bamboo flowsheet Gurjitarleth Murrayett DO Work Phone[facility] [address] Start: 04-07-2024 End: 04-07-2024 Office outpatient new 45 minutes Melanie Daley DO Work Phone: [facility] Comment on above: Neuralgia (Primary D x); DDD (degenerative disc disease), cervical Start: 04-07-2024 End: 04-07-2024 ambulatory YOLIMARCOS EDI Not Available Start: 01-21-2024 End: 01-21-2024 ambulatory [facility] Work Phone: Start: 01-21-2024 End: 01-21-2024 Patient encounter procedure [facility] Work Phone: Start: 09-10-2023 End: 09-10-2023 ambulatory [facility] Work Phone: Start: 09-10-2023 End: 09-10-2023 Patient encounter procedure [facility] Work Phone: Start: 06-07-2023 End: 06-07-2023 ambulatory Yolette Philippbereket Other [facility] Other Start: 06-07-2023 Telephone encounter [facility] Start: 06-05-2023 (DM) Diabetes Yolette Mcfarland [facility] Start: 06-05-2023 End: 06-05-2023 ambulatory MD Annie Rodgers Work Phone: [facility] Other Start: 06-05-2023 End: 06-05-2023 Discharged Recurring MD Annie Rodgers Work Phone: [facility] Work Phone: Start: 06-05-2023 End: 06-05-2023 Patient encounter procedure MD Annie Rodgers Work Phone: [facility]- Start: 05-18-2023 End: 05-18-2023 ambulatory Yolette Scally Other [employer] Other Start: 05-18-2023 Telephone encounter Yolette Scally [facility] Start: 02-28-2023 End: 02-28-2023 ambulatory Yolette Scally Other [employer] Other Start: 02-28-2023 Telephone encounter Yolette Scally [facility] Start: 02-27-2023 (DM) Diabetes Yolette Scally [facility] Start: 02-27-2023 End: 02-27-2023 ambulatory Yolette Scally Other [employer] Other Start: 12-19-2022 (DM) Diabetes Yolette Scally [facility] Start: 12-19-2022 End: 12-19-2022 ambulatory Yolette Scally Other [employer] Other Start: 12-07-2022 End: 12-07-2022 ambulatory Yolette Scally Other [employer] Other Start: 12-07-2022 Telephone encounter Yolette Scally [facility] Start: 10-03-2022 (DM) Diabetes Yolette Scally [facility] Start: 10-03-2022 End: 10-03-2022 ambulatory Yolette Scally Other [employer] Other Start: 10-03-2022 Telephone encounter Yolette Scally [facility] Start: 07-24-2022 End: 07-24-2022 ambulatory Annie Rodgers Other [employer] Other Start: 03-20-2023 Office outpatient ne w 30 minutes Annie Rodgers [facility] Start: 07-04-2022 End: 07-04-2022 ambulatory Yolette Scally Other [employer] Other Start: 07-04-2022 Telephone encounter Yolette Philipply [facility] Start: 06-28-2022 (DM) Diabetes Yolette Scally [facility] Start: 06-28-2022 End: 06-28-2022 ambulatory Yolette Scally Other [employer] Other Start: 06-26-2022 End: 06-26-2022 ambulatory Yolette Scally Other [employer] Other Start: 06-26-2022 Telephone encounter Yolette Scally [facility] Start: 06-19-2022 End: 06-19-2022 ambulatory Yolette Scally Other [employer] Other Start: 06-19-2022 Telephone encounter Yolette Scally [facility] Start: 05-05-2022 (DM) Diabetes Yolette Scally [facility] Start: 05-05-2022 End: 05-05-2022 ambulatory Yolette Scally Other [employer] Other Start: 03-27-2022 End: 03-27-2022 ambulatory Yolette Scally Other [employer] Other Start: 03-27-2022 Telephone encounter Yolette Scally [facility] Start: 02-03-2022 (DM) Diabetes Yolette Scally [facility] Start: 02-03-2022 End: 02-03-2022 ambulatory Yolette Scally Other [employer] Other Start: 11-21-2021 End: 11-21-2021 ambulatory Yolette Scally Other [employer] Other Start: 11-21-2021 Telephone encounter Yolette Scally [facility] Start: 11-11-2021 End: 11-11-2021 ambulatory Yolette Scally Other [employer] Other Start: 11-11-2021 Telephone encounter Yolette Scally [facility] Start: 11-01-2021 (DM) Diabetes Yolette Scally [facility] Start: 11-01-2021 End: 11-01-2021 ambulatory Yolette Scally Other [employer] Other Start: 10-24-2021 End: 10-24-2021 ambulatory Yolette Scally Other [employer] Other Start: 10-24-2021 Telephone encounter Yolette Scally [facility] Start: 09-13-2021 End: 09-13-2021 ambulatory Yolette Scally Other [employer] Other Start: 09-13-2021 Telephone encounter Yolette Scally [facility] Start: 08-23-2021 End: 08-23-2021 ambulatory Yolette Scally Other [employer] Other Start: 08-23-2021 Telephone encounter Yolette Scally [facility] Start: 08-04-2021 End: 08-04-2021 ambulatory Yolette Scally Other [employer] Other Start: 08-04-2021 Telephone encounter Yolette Scally [facility] Start: 07-20-2021 (DM) Diabetes Yolette Scally [facility] Start: 07-20-2021 End: 07-20-2021 ambulatory Yolette Pierre Other [facility] Other Start: 04-08-2020 End: 04-08-2020 Patient encounter procedure MARCEL PAIZ Facility: Procedures Date Procedure Procedure Detail Performing Clinician History of amputatio n of lesser toe H/O amputation of lesser toe Mayra Spears DPM Work Phone: Comment on above: right great toe Plan of Treatment Date Care Activity Detail Author Start: 10-23-2025 Adult BMI Screening Adult BMI Screen ing [facility] Start: 04-11-2025 Tobacco Screening Tobacco Screening [facility] Start: 01-05-2025 Influenza vaccination Influenza Vacc ine [facility] Start: 01-01-2025 Patient referral [facility] Work Phone: Start: 10-29-2024 [facility] Start: 04-07-2024 End: 04-07-2024 Patient encounter procedure 04/07/2024 8:30 AM EST Office Visit [facility] [address] [place] [phone] Melanie Daley DO [address] [place], [place] [id number] [facility] Comment on above: Arrived Start: 2011 Administration of varicella zoster vaccine Zoster (Shingles) Vaccine (1 of 2) [facility] Start: 02-06-1980 DTaP,Tdap and Td Vac cines (1 - Tdap) DTaP,Tdap and Td Vaccines (1 - Tdap) [facility] Start: 1973 Depression Screening Depression Scre shantel [facility] Comprehensive metabo lic 1999 panel - Serum or Plasma [facility] Comprehensive metabo lic 1999 panel - Serum or Plasma [facility] Patient referral [facility] Work Phone: [facility] Payers Date Payer Category Payer Self-pay [id number] 2024 Medicare HMO [employer] [id number] 2024 Medicare [id number] 2022 Medicare (Managed Care) [facility] [id number] 2022 Medicare [id number] 1961 Unknown [id number] 593 1961 Unknown [id number]. 1259 1961 Unknown [id number] [id number]. 1286 1961 Unknown [id number] [id number]. 1286 1961 Unknown [id number] [id number]. 1286 1961 Unknown [id number] [id number]. 1286 1961 Unknown [id number] [id number]. 1286 1959 Unknown [id number] Medicare [id number] Unknown [id number]. 531 Unknown [id number]. 531 Unknown [id number]. 531 Unknown [id number]. 531 Social History Date Type Detail Facility Unknown if ever smoked [employer] Other Start: 06-17-2020 End: 04-11-2024 Sex Assigned At [employer] Other Start: 1960 Sex Assigned At Male F [facility] Start: 09-10-2023 End: 01-01-2025 Tobacco smoking status [facility] Ex-smoker (finding) [facility] Tobacco smoking status [facility] Tobacco smoking consumption unknown [facility] Start: 1960 Sex assigned at Not on file N [facility] Start: 12-10-2014 End: 06-18-2024 Sex Male (finding) [facility] History of tobacco use Current smoker [facility] Start: 04-11-2024 Alcoholic beverage intake Current drinker of alcohol (finding) [facility] Start: 06-17-2020 End: 04-11-2024 Alcoholic beverage intake [facility] Childcare Unknown [facility] Medical Equipment Procedure Code Equipment [...] up with us as needed. [facility] 10-23-2024 Miscellaneous Notes Associate d Problem(s): Critical limb ischemia of right lower extremity with gangrene (CMS-HCC) He has no significant occlusive disease. Plan is to continue to work with podiatry and follow up with us as needed. documented in this encounter [facility] 10-23-2024 History of Presen t [...] Diagnosis Date Diabetes mellitus type 2, controlled ([facility]-H[facility]) Hyperlipidemia Hypertension Past Surgical History: Past Surgical History: Procedure Laterality Date lower ext angio Right 10/17/2024 Performed by Jamil Culver MD at [facility] Social and Family [...] Jamil Culver MD, RADHA, RPVI, FSVS, FACS [facility] [employer] [facility] This note was created with the assistance of a speech recognition program. While intending to generate a timely document that accurately reflects the content of the visit, no guarantee can be provided that every grammatical or spelling mistake has been or will be identified or corrected. Thank you for your understanding. documented in this encounter [facility] 10-09-2024 Evaluation note Diagnosis Onset Date Resolution BMI 25.0-25.9,adult acute October 09, 2024 8:20am Dietary counseling and surveillance acute October 09, 2024 8:20am HTN (hypertension) acute October 092024 8:20am Hyperlipidemia acute October 09, 2024 8:20am Hypotension acute October 09 8:20am detention 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 insulin acute October 09, 2024 8:20am Persistent albuminuria acute 2024 8:20am Type 2 diabetes mellitus with hyperglycemia acute October 09 8:20am Vitamin D deficiency acute October 09, 2024 8:20am [facility] Work Phone: 1(234) 523-612406-05-2025 Evaluation note* Diagnosis Onset Date Resolution Status Admit Date BMI 25.0-25.9,adult acute October 09, 2024 8:20am Dietary counseling and surveillance acute October 09, 2024 8 :20am HTN (hypertension) acute October 092024 8:20am Hyperlipidemia acute October 09, 2024 8:20am Hypotension acute October 09 8:20am detention 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 insulin acu te October [...] 9:00am Hypotension acute January 01, 2025 9:00am 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 January 01, 2025 9:00am Persistent albuminuria acute Au kamala 2024 9:00am Type 2 diabetes mellitus wit h hyperglycemia acute January 01 9:00am Vitamin D deficiency acute Augu st 2024 9:00am [facility] Work Phone: 1(188) 453-912512-18-2024 Evaluation note* Diagnosis Onset Date Resolution Status Admit Date BMI 25.0-25.9,adult acute Decem viji 2023 8:54am Dietary counseling and surveillance acute April 23 8:54am HTN (hypertension) acute Decemb er 2023 8:54am Hyperlipidemia acute April 062023 8:54am detention 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 insulin acute April 23 8:54am Persistent albuminuria acute De cember 2023 8:54am Type 2 diabetes mellitus wit h hyperglycemia acute April 23 8:54am Vitamin D deficiency acute Dece mber 2023 8:54am BMI 25.0-25.9,adult acute Febru jennie 2024 8:25am Dietary counseling and surveillance acute June 18 8:25am HTN (hypertension) acute Februa ry 2024 8:25am Hyperlipidemia acute June 072024 8:25am detention 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 insulin acute June 18 8:25am Persistent albuminuria acute Fe bruary 2024 8:25am Type 2 diabetes mellitus wit h hyperglycemia acute June 18 8:25am Vitamin D deficiency acute Febr uary 2024 8:25am [facility] Work Phone: 1(486) 830-594012-02-2024 History of Present illness Narrative* Melanie Daley, [...] , wrist extensors , wrist flexor , cinder crew worker strength 5/5. LUE Strength deltoid , biceps , triceps , wrist extensors , wrist flexor , cinder crew worker strength 5/5. RLE Strength illopsoas, quadriceps, tibialis [...] reflex 2+ . Christy's sign negative. Coordination: [id number] testing and rapid alternating movements are normal [...] plan, and return instructions [id number] Evaluation note* Encounter Date Diagnosis Assessment Notes Treatment Notes Treatment Clinical Notes Jun, Type 2 diabetes mellitus with hyperglycemia (ICD-10 - E11.65) [employer] Other 01-30-2024 Evaluation note* Encounter Date Diagnosis [...] continue BP good. ESTABLISH WITH PCP May, 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 (ICD-10 - Z79.4) May, Persistent albuminuria (ICD-10 - R80.9) Failed Jardiance, Tolerating Farxiga, increase Lisinopril last visit and tolerating. CANNOT PRODUCE URINE SAMPLE tODAY, LAB ORDER SENT TO FOLLOWUP. If persistent albuminuria could consider nephrology. Discussed management of glycemia and high blood pressure to protect kidneys. May, Albuminuria (ICD-10 - R80.9) May, BMI 25.0-25.9,adult (ICD-10 - Z68.25) [employer] Other 10-25-2023 Evaluation note* Encounter Date Diagnosis Assessment Notes Treatment Notes Treatment Clinical Notes Feb, Albuminuria (ICD-10 - R80.9) [employer] Other 10-24-2023 Evaluation note* Encounter Date Diagnosis [...] continue BP good. ESTABLISH WITH PCP Feb, 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 (ICD-10 - Z79.4) Feb, Persistent albuminuria (ICD-10 - R80.9) Failed Jardiance, will do trial of Farxiga. If cannot tolerate class medications or persistent albuminuria could consider nephrology. Repeat microalbuminuria after Farxiga. Discussed management of glycemia and high blood pressure to protect kidneys. Feb, BMI 26.0-26.9,adult (ICD-10 - Z68.26) Feb, Albuminuria (ICD-10 - R80.9) [employer] Other 08-15-2023 Evaluation note* Encounter Date Diagnosis [...] published to portal slightly above goal Dec, 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 (ICD-10 - Z79.4) Dec, Persistent albuminuria (ICD-10 - R80.9) Failed Jardiance, will do trial of Farxiga. If cannot tolerate class medications or persistent albuminuria could consider nephrology. Repeat microalbuminuria after Farxiga. Discussed management of glycemia and high blood pressure to protect kidneys. Dec, BMI 27.0-27.9,adult (ICD-10 - Z68.27) [employer] Other 05-30-2023 Evaluation note* Encounter Date Diagnosis [...] published to portal slightly above goal September, 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 (ICD-10 - Z79.4) September, Persistent albuminuria (ICD-10 - R80.9) Failed Jardiance, will do trial of Farxiga. If cannot tolerate class medications or persistent albuminuria could consider nephrology. Repeat microalbuminuria after Farxiga. Discussed management of glycemia and high blood pressure to protect kidneys. September, BMI 27.0-27.9,adult (ICD-10 - Z68.27) [employer] Other 03-20-2023 Evaluation note* Encounter Date Diagnosis Assessment Notes Treatment Notes Treatment Clinical Notes Jul, Hyperlipidemia (ICD-10 - E78.5) will refill med and check labs today. Jul, Type 2 diabetes mellitus with hyperglycemia (ICD-10 - E11.65) Continued followup with diabetes clinic. Pt states he hasn't had an eye exam for 2 years - advised followup [employer] Other 02-22-2023 Evaluation note* Encounter Date Diagnosis [...] Instructions material was published to portal Jun, 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 (ICD-10 - Z79.4) Jun, BMI 28.0-28.9,adult (ICD-10 - Z68.28) Jun, Persistent albuminuria (ICD-10 - R80.9) Failed Jardiance, will do trial of Farxiga. If cannot tolerate class medications or persistent albuminuria could consider nephrology. Repeat microalbuminuria after Farxiga. Discussed management of glycemia and high blood pressure to protect kidneys. Jun, Other inital weigh t increase, now declining [employer] Other 02-13-2023 Evaluation note* Encounter Date Diagnosis Assessment Notes Treatment Notes Treatment Clinical Notes Jun, Type 2 diabetes mellitus with hyperglycemia (ICD-10 - E11.65) [employer] Other 12-30-2022 Evaluation note* Encounter Date Diagnosis [...] PCP to manage cholesterol and preventative treatments. [facility] physician group primary care provider [...] will have patient present for download with nurses educator in 4 weeks and provider in [...] Instructions material was published to portal Apr, detention 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 insulin (ICD-10 - Z79.4) Apr, BMI 28.0-28.9,adult (ICD-10 - Z68.28) Apr, Persistent albuminuria (ICD-10 - R80.9) Failed Jardiance, will do trial of Farxiga. If cannot tolerate class medications or persistent albuminuria could consider nephrology. Repeat microalbuminuria after Farxiga. Discussed management of glycemia and high blood pressure to protect kidneys. Apr, Other inital weigh t increase, now declining [employer] Other 09-30-2022 Evaluation note* Encounter Date Diagnosis [...] for activation. She continue roberta. Encouraged calling [employer] for replacement of 2 sensors. We discussed [...] Instructions material was published to portal Jan, detention 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 insulin (ICD-10 - Z79.4) [...] Other inital weigh t increase, now declining [employer] Other 07-18-2022 Evaluation note* Encounter Date Diagnosis Assessment Notes Treatment Notes Treatment Clinical Notes Nov, Type 2 diabetes mellitus with hyperglycemia (ICD-10 - E11.65) Nov, terminal operator current us e of insulin (ICD-10 - Z79.4) [employer] Other 06-28-2022 Evaluation note* Encounter Date Diagnosis [...] clinic in 6 weeks for download with nurses educator in 3 months with provider 3. [...] Instructions material was published to portal Oct, 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 (ICD-10 - Z79.4) Oct, BMI 27.0-27.9,adult (ICD-10 - Z68.27) Oct, Other inital weigh t increase, now declining [employer] Other 03-16-2022 Evaluation note* Encounter Date Diagnosis [...] increase this. Patient has difficulty with his rn home health currently, questioning accuracy as it was run over. He will request a new rn home health from [employer]. We also discussed using cell phone as [...] previous PCP. He is given information regarding [facility] physicians to include Dr. Vela who may be geographically desirable. I did send him with written to do list 1 call [employer] for replacement of rn home health. To download Jostle matthew on cell phone for next sensor [...] About Healthy Weight material was published to [employer] Jul, Hyperlipidemia (ICD-10 - E78.5) Learning About High Cholesterol material was published to portal LDL 53-- Continue Crestor Jul, HTN (hypertension) (ICD-10 - I10) High Blood Pressure: Care Instructions material was published to [employer] Jul, 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 (ICD-10 - Z79.4) Jul, BMI 27.0-27.9,adult (ICD-10 - Z68.27) Jul, Other inital weigh t increase, now declining [place] [employer] Other Chief complaint+Reason for visit Narrative* Chief Complaint DMN f/u-METER Reason for Visit BMI 25.0-25.9,adult Dietary counseling and surveillance HTN (hypertension) Hyperlipidemia 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 Persistent albuminuria Type 2 diabetes mellitus with hyperglycemia Vitamin D deficiency [facility] Work Phone: Evaluation noteNo InformationNort [employer] Other Evaluation noteNo assessment information available [facility] Work Phone: Evaluation note* Diagnosis Onset Date Resolution Status BMI 25.0-25.9,adult acute Dietary counseling and surveillance acute HTN (hypertension) acute Hyperlipidemia acute detention 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 insulin acute Persistent albuminuria acute Type 2 diabetes mellitus with hyperglycemia acute Vitamin D deficiency acute [facility] Work Phone: Evaluation note* Diagnosis Neuralgia- Primary Unspecified neuralgia, neuritis, and radiculitis DDD (degenerative disc disease), cervical Degeneration of cervical intervertebral disc documented in this encounter [facility] Healthcare[facility] note* Diagnosis Onset Date Resolution Status Admit Date BMI 25.0-25.9,adult acute October 09, 2024 8:20am Dietary counseling and surveillance acute October 09, 2024 8 :20am HTN (hypertension) acute October 092024 8:20am Hyperlipidemia acute October 09, 2024 8:20am detention 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 insulin acu te October 09, 2024 8:20am Persistent albuminuria acute Ju 2024 8:20am Type 2 diabetes mellitus wit h hyperglycemia acute October 09, 2024 8 :20am Vitamin D deficiency acute October 09, 2024 8:20am [facility] Work Phone: Evaluation note* Diagnosis Critical [...] PICC LINE 2017 Hospitalization History ICU In [facility] f or 8-10 days 2017 [place] [employer] Other Hospital Discharge instructionsAmbulatory Orders* Referral to Nephrology Time Frame: 01/01/25, Location: None Selected [facility] Work Phone: InstructionsNot on filedocumented in this encounter [facility] SystemReason for referral (narrative)* Reason Nail deformity, Type II Diabetes Referral sent , patient informed Diagnosis 1 Type 2 diabetes reji itus with hyperglycemia (E11.65) Diagnosis 2 Nail deformity (L60. 8) Referral Organization [facility] Referring Provider First Name Yolette Referring Provider Last Name Gabby Referring Provider Specialty Nurse Pract itioner Referred Organization [facility] Referred Provider NORY AHMADI Referred Address ,[place], [place],[address] Referred Provider Specialty Podiatry - S urgical [...] them. Clinical Notes Dr Nory Ahmadi# [phone] [employer] Other Reason for referral (narrative)No reason for referral [facility] Work [facility]: Summary Purpose Family History Relationship [...] 2024 8:54am Hyperlipidemia April 23, 2024 8:54am 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 Decembe r 2023 8:54am Persistent albuminuria April 23 8:54am Type 2 diabetes mellitus with hyperglyce samir April 23, 2024 8:54am Vitamin D deficiency April 23, 2024 8:54am BMI 25.0-25.9,adult June 18, 2024 8:25am Dietary counseling and surveillance [facility] 2024 8:25am HTN (hypertension) June 18, 2024 8:25am Hyperlipidemia June 18, 2024 8:25am 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 uar 2024 8:25am [...] m Hyperlipidemia October 09, 2024 8:20a m 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 October 8:20am Persistent [...] m Hypotension October 09, 2024 8:20a m detention 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 insulin October 8:20am Persistent [...] m Hypotension October 09, 2024 8:20a m 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 October 8:20am Persistent [...] 00am Hypotension January 01, 2025 9: 00am detention 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 insulin January 01, 2025 [...] DATE CREATED AUTHOR AUTHOR'S ORGANIZ ATION 04/07/2024 [facility] EPIC DATE CREATED AUTHOR AUTHOR'S ORGANIZ ATION 10/08/2024 [facility] DATE CREATED AUTHOR AUTHOR'S ORGANIZ ATION 10/20/2024 [facility] DATE CREATED AUTHOR AUTHOR'S ORGANIZ ATION 10/26/2024 [facility] DATE CREATED AUTHOR AUTHOR'S ORGANIZ ATION 11/22/2024 [facility] REASON FOR VISIT (unrecogniz [...] Member Role Status Dates Francisco Walters , JOINERY MACHINIST-C Primary Care Provider Active Start: September 20, 2024 Krys Hummel MD Attending Provider Active Sta rt: September 20, 2024 Team Status: Active Member Role Status Dates Francisco Walters , JOINERY MACHINIST-C Primary Care Provider Active Start: September 21, 2024 Shaikh Shaji MD Attending Provider Active Sta rt: September 21, 2024 Team Status: Active Member Role Status Dates Francisco Walters , JOINERY MACHINIST-C Primary Care Provider Active Start: September 22, 2024 Shaikh Shaji MD Attending Provider Active Sta rt: September 22, 2024 Team Status: Active Member Role Status Dates Francisco Walters , JOINERY MACHINIST-C Primary Care Provider Active Start: September 23, [...] January 21, 2024 End: January 21, 2024 Cosmetologist Relationship Specialty Start Date End Date Melanie Daley DO [address] [address] Referring Physician Neurology 04/07/24 Leticia Blanco NP [address] [address] Nurse Practitioner Neurology 04/07/24 Suzanna Ybarra NP [address] [id number] Nurse Practitioner Neurology 04/07/24 Team Status: Inactive [...] June 18, 2024 End: June 18, 2024 Cosmetologist Relationship Specialty Start Date End Date No Pcp, [place] [address] PCP - General Family Medicine 04/11/24 Team [...] BE BASED ON THE PRIMARY CLINICAL RECORDS. [facility] [employer] provides no warranty or guarantee of the accuracy or completeness of information in this document.
== END 2025-01-21 09:24 | disposition home or self-care (01) ==
LOC: WC 09:23
PROVIDERS: PCP Family Medicine; Visit Provider Physician Assistant
DX: I70.261 Atherosclerosis of native arteries of extremities with gangrene, right leg (principal); L97.514 Non-pressure chronic ulcer of other part of right foot with necrosis of bone
CPT/HCPCS: 11044

== ENCOUNTER 2025-01-21 12:58 | Outpatient (REF) | payer MEDICARE, SELFPAY ==
--- OUTSIDE RECORDS SUMMARY | 2024-10-30 06:30 | XMS_ITS ---
Author Organization [facility] vices Address [address] [place], [place] [address] Care Team Providers Care Government Affairs Specialist Name Role Phone Selena Ximena Unavailable [phone] REASON FOR VISIT 6 month DM2, HTN Encounters Encounter Location Date Provider Diagnosis Main [address] [place] [phone] 10/30/2024 Ximena Walters Plan Of Treatment No Information Progress Notes * RODRIGUEZJassi CONTRERASDOB: [birth year] (64 yo M)Acc No.[id number]:10/30/2024 Medical Note Patient: Jassi KNIGHT Provider: Jonah Walters :1960 A ge:64 Y S ex:Male Date:10/30/2024 Address:[address] [place], [place] [phone] Subjective: * Chief Complaints: * 1 . 6 month DM2, HTN. * Medical History: Objective: * Vitals: Assessment: Plan: * Treatment: * Billing Information: * Visit Code: * Procedure Codes: * Electronic signature of LEXY Horton sa on 02/02/2025 at 01:01 PM EDT Sign off status: Pending * Provider: Jonah Walters Date: 10/30/2024 Generated for Meliza gonzalez/Gabriel/eTransmitting on: 0 02/02/2025 01:01 PM EDT
--- OUTSIDE RECORDS SUMMARY | 2025-01-21 09:30 | XMS_ITS ---
Author Name Auto Generated Organization OHIP Care Team Providers Care Inflated Pad Buffer Name Role Phone PARRISH LOCKE Attending Unavailable NO PCP, NO PCP Primary Care Unavailable TAWANA CASAS Attending Unavailable MAYRA SPEARS Referring Unavailable NO PCP, NO PCP Primary Care Unavailable MAYRA SPEARS Referring Unavailable NO PCP, NO PCP Primary Care Unavailable TAWANA CASAS Admitting Unavailable TAWANA CASAS Attending Unavailable NO PCP, NO PCP Primary Care Unavailable TAWANA CASAS Attending Unavailable NO PCP, NO PCP Primary Care Unavailable Mayra Spears Attending Unavailable Mayra Spears Admitting Unavailable Mayra Spears Attending Unavailable Mayra Spears Admitting Unavailable Yolette Pierre Admitting Unavailable Yolette Pierre Attending Unavailable Mayra Spears Admitting Unavailable Mayra Spears Attending Unavailable Mayra Spears Attending Unavailable Mayra Spears Admitting Unavailable MELANIE DAVID Attending Unavailable PROBLEMS DATE TYPE CONDITION / CODE ATTENDING STATUS [facility] 10/07/2024 Unknown Atherosclerosis of [place] arteries of extremities with gangrene, right leg / I70.261(ICD-10) TAWANA CASAS [facility] 10/07/2024 Unknown Peripheral vascu lar disease, unspecified / I73.9(ICD-10) NA [facility] 10/07/2024 Unknown Gangrene, not el sewhere classified / I96(ICD-10) [facility] 10/07/2024 Unknown Other specified symptoms and signs involving the circulatory and respiratory systems / R09.89(ICD-10) [facility] 06/18/2024 Unknown Type 2 diabetes mellitus with hyperglycemia / E11.65(ICD-10) [facility] 06/18/2024 Unknown Vitamin D defici ency, unspecified / E55.9(ICD-10) [facility] 06/18/2024 Unknown Hyperlipidemia, unspecified / E78.5(ICD-10) [facility] 06/18/2024 Unknown Essential (prima ry) hypertension / I10(ICD-10) [facility] 06/18/2024 Unknown Proteinuria, uns pecified / R80.9(ICD-10) [facility] 04/11/2024 Unknown Fall on same lev el from slipping, tripping and stumbling without subsequent striking against object, initial encounter / W01.0XXA(ICD-10) [facility] 04/11/2024 Unknown Multiple fractur es of ribs, right side, initial encounter for closed fracture / S22.41XA(ICD-10) [facility] 04/11/2024 Unknown Fall / FREETEXT(AOF) [facility] 04/11/2024 Unknown fall / UNK(Unknown) [facility] PROCEDURES No Procedure Records Found RESULTS PATHOLOGY REQUEST FOR LAB LUIS ANTONIO Collected: 01/21/2025 9:30 AM Status: F Source: [facility] TYPE CODE TESTS RESULT OUT OF RANGE REFERENCE UNITS LAB PATH TO [facility] Pathology Request for Lab Luis Antonio Result Comment: See report. Scanned copy available in EMR. PERFORMED BY: [place] [address] PATHOLOGIST SUPERVISOR QUILTING GOOD RIDDLE M.D. Performed By: #### LIBERTY YEE #### [place] [id number] [facility] L Observed: 11/12/2024 1:45 PM Status: Nolberto Source: [facility] ----- ------- Specimen: [id number] Received: 11/13/24 Status: LORENA Childs Num: [id number] Spec Type: Surgical Subm Dr: Mayra Spears DPM, MS Tissues: A DIGIT AMPUTATION (BONE FROM R 2nd TOE) Procedures: HE/2, Gross/Micro L4, Decalcification ----- ------- Age/ Patient Sex Location Account Attending Physician ----- ------- Lan Rodriguez SR 64/M LABELL [id number] Mayra Spears DPM, ----- ------- SPEC NUM: [id number] RECD: 11/13/24 STATUS: LORENA CHILDS NUM: [id number] SCOTT: 11/12/[address] [facility] [address]: Mayra Spears,DPM, MS ENTERED: 11/13/[address]: Megan,Lab SPEC TYPE: Surgical DEPT: THANH MURRAY ENTERED BY: [id number] RECV BY: [id number] ORDERED: HE/2, Gross/Micro L4, Decalcification ORDERED: HE/2, [...] soft tissue submitted in A2. (2, , [id number] A) CPT Codes 15576, 50494 ----- ------- ----- ------- Specimen: [id number] Received: 11/13/24 Status: LORENA Childs Num: [id number] Spec Type: Surgical Subm Dr: Mayra Spears,DPM, MS Tissues: A DIGIT AMPUTATION (BONE FROM R 2nd TOE) Procedures: HE/2, Gross/Micro L4, Decalcification ----- ------- Patient: Lan Rodriguez [id number] (Continued) ----- ------- Signed (signature on file) Uziel Lozano MD 11/18/24 1140 PATHOLOGY REQUEST FOR LAB LUIS ANTONIO Collected: 10/29/2024 2:45 PM Status: F Source: [facility] Order Comment: BONE 2ND RT T OE TYPE CODE TESTS RESULT OUT OF RANGE REFERENCE UNITS LAB PATH TO [facility] Pathology Request for Lab Luis Antonio Result Comment: See report. Scanned copy available in EMR. PERFORMED BY: [place] [address] PATHOLOGIST SUPERVISOR QUILTING GOOD RIDDLE M.D. Performed By: #### PATH TO Syeda YEE #### [address] PORTABLE GLUCOSE Collected: 5 10:49 AM Status: COMPLETED Source: [facility] TYPE CODE TESTS RESULT OUT OF RANGE REFERENCE UNITS LAB IGLU PORTABLE GLUCOSE 89 65-99 mg/dL Performed By: #### IGLU #### [facility] ([facility]) [address] [place] [address] VIR POCT BUN, CREAT Collected: 10:49 AM Status: COMPLETED Source: [facility] TYPE CODE TESTS RESULT OUT OF RANGE REFERENCE UNITS LAB IBUN PORTABLE BUN 17 6-27 mg/dL LAB ICRET PORTABLE CREATININE 1.1 0.7-1.2 mg/dL LAB IEGFR POC EGFR (CKD-EPI) NON-RACE DEPENDENT 75 >=60 ml/min/1. 73sq.m Result Comment: Reported eGF R is based on the CKD-EPI 2020 equation that does not use a race coefficient. Performed By: #### IBC #### [facility] ([facility]) [address] [place] [address] VIR L Observed: 09/23/2024 9:38 AM Status: F Source: [facility] ----- ------- Specimen: [id number] Received: 09/23/24-1299 Status: LORENA Childs Num: [id number] Spec Type: Surgical Subm Dr: Mayra Spears,DPM, MS Tissues: A DIGIT AMPUTATION (RIGHT DISTAL PHALANX) B DIGIT AMPUTATION (RIGHT PROXIMAL PHALANX) Procedures: HE/3, Gross/Micro L4/2, Decalcification/2 ----- ------- Age/ Patient Sex Location Account Attending Physician ----- ------- Lan Rodriguez 64/M LABELL [id number] Mayra Spears DPM, MS ----- ------- SPEC NUM: [id number] RECD: 09/23/24 STATUS: SOHABrigitte HARMONY NUM: [id number] SCOTT: 09/23/[address] [facility] [address]: Mayra Spears DPM, MS ENTERED: 09/23/24-[address]: Megan,Lab SPEC TYPE: Surgical DEPT: THANH MURRAY ENTERED BY: [id number] RECV BY: [id number] ORDERED: HE/3, Gross/Micro L4/2, Decalcification/2 ORDERED: HE/3, [...] Acute cellulitis, dry gangrene right great toe ----- ------- Specimen: [id number] Received: 09/23/24-1299 Status: LORENA Childs Num: [id number] Spec Type: Surgical Subm Dr: Mayra Spears,DPM, MS Tissues: A DIGIT AMPUTATION (RIGHT DISTAL PHALANX) B DIGIT AMPUTATION (RIGHT PROXIMAL PHALANX) Procedures: HE/3, Gross/Micro L4/2, Decalcification/2 ----- ------- Patient: Lan Rodriguez SR [id number] (Continued) ----- ------- Specimen: [id number] Received: 09/23/24-1299 (Continued) Signed (signature on file) Mingo Mejia MD 09/26/24 8470 ----- ------- Specimen: [id number] Received: 09/23/24 Status: LORENA Childs Num: [id number] Spec Type: Surgical Subm Dr: Mayra Spears,DPM, MS Tissues: A DIGIT AMPUTATION (RIGHT DISTAL PHALANX) B DIGIT AMPUTATION (RIGHT PROXIMAL PHALANX) Procedures: HE/3, Gross/Micro L4/2, Decalcification/2 ----- ------- Patient: MichaelLan [id number] (Continued) ----- ------- Specimen: [id number] Received: 09/23/24 (Continued) Gross Description Part A [...] cm from the proximal skin margin. A assistance representative section of the indurated area and underlying distal phalanx is submitted in A1 after decalcification with tangential cross-sections of the proximal skin margin submitted in A2. (2, ss, [id number] A) Part B is received in formalin [...] submitted in B1 after decalcification. (1, , [id number] B) Microscopic Description Microscopic examination is performed CPT Codes 94515l9 91542c3 ----- ------- ----- ------- Specimen: [id number] Received: 09/23/24 Status: LORENA Childs Num: [id number] Spec Type: Surgical Subm Dr: Mayra Spears,DPM, MS Tissues: A DIGIT AMPUTATION (RIGHT DISTAL PHALANX) B DIGIT AMPUTATION (RIGHT PROXIMAL PHALANX) Procedures: HE/3, Gross/Micro L4/2, Decalcification/2 ----- ------- Patient: RodriguezLan [id number] (Continued) ----- ------- Signed (signature on file) Mingo Mejia MD 09/26/24 1340 MICROALB CREAT RATIO,U Collected: 06/18 10:18 AM Status: F Source: [facility] TYPE CODE TESTS RESULT OUT OF RANGE REFERENCE UNITS LAB UMAT Microalbumin , Urine >45.0 High 0.0-1.8 mg/dL LAB UCREA Creatinine, Urine (Random) 123.00 mg/dL Result Comment: No reference range established LAB MACREATRATIO Microalbumin /Creatinine Ratio Test not performed 0.0-30.0 Result Comment: PERFORMED BY : [facility] [address] [place] [address] PATHOLOGIST SUPERVISOR QUILTING TAWANA BONILLA M.D. Performed By: #### ESTRADA T #### [facility] [address] ABDOMEN WO CONT Observed: 04/11/2024 10:57 AM Status: COMPLETED Source: [facility] CT ABDOMEN WO CONT HISTORY and Tech [...] as low as reasonably achievable. Finalized by Robinson Camarena MD on 04/11/2024 11:[address] CHEST WO CONT Observed: 04/11/2024 10:54 AM Status: COMPLETED Source: [facility] CT CHEST WO CONT CT Chest without [...] Camille Guido MD on 04/11/2024 11:15 AM ALLERGIES DATE TYPE / CODE NAME / CODE REACTION SEVERITY SOURCE 01/01/2025 Drug Allergy/96660835 2(SNOMED CT) No Known Allergies/H463410549 (RXNORM) Unknown [facility] Drug Class/125115645( SNOMED CT) NO KNOWN ALLERGIES [facility] ENCOUNTERS ADMIT/DISCHARGE ACCOUNT NUMBER ADMITTING ENCOUNTER CLASS LOCATION SOURCE 01/21/2025/01/22/20 [id number] [facility] 11/12/2024/11/13/19 [id number] [facility] 10/29/2024/10/30/19 [id number] [facility] 10/23/2024/10/24/19 [id number] Ambulatory Buildin [facility] 10/17/2024/10/18/19 [id number] TAWANA CASAS Ambulatory Building:PTH _CVRRoom: CVU BAYBed: CVU [facility] 10/07/2024/10/08/19 [id number] Ambulatory Building:[facility] _[facility] 09/25/2024/09/26/19 [id number] Ambulatory Buildin 62 [facility] 09/23/2024/09/24/19 [id number] [facility] 06/18/2024/06/18/19 [id number] Yolette Pierre [facility] 04/11/2024/04/11/20 24 [id number] Emergency Building:PF _EDRoom: 12Bed: 12 [facility] 04/07/2024/04/07/20 24 [id number] Ambulatory Building:[facility] NE[facility]O [facility] EPIC PAYERS ENCOUNTER GUARANTOR PAYER SUBSCRIBER SOURCE 01/21/2025 Lan Rodriguez [address] [address]Xam: (HP) Primary Insurance:Self PayPolicy Number: Effective Date:2025-01-21 [facility]/12/[address] [facility] [place] [address]Cfh: (HP) Primary Insurance:Self PayPolicy Number: Effective Date:2024-11-12 [facility] 10/29/2024 Lan [place] [address]Cca: (HP) Primary Insurance:Self PayPolicy Number: Effective Date:2024-10-29 [facility] 10/23/2024 LAN RUBIOYESIB: [place] [address]Vjl: (HP) Primary Insurance:[facility] MEDICARE ADVANTAGEPolicy Number: [id number] Date:2024-05-07 LAN RUBIOYESIB: [id number] [place] [address]Lmm: (HP) [facility] 10/17/2024 LAN RUBIOEYSIB: [place], [place] [address]Nfi: (HP) Primary Insurance:[facility] MEDICARE ADVANTAGEPolicy Number: [id number] Date:2024-05-07 LAN RODRIGUEZB: [id number] [place] [address]Xmt: (HP) [facility] 10/07/2024 LAN RUBIOYESIB: [place], [place] [address]Wlf: (HP) Primary Insurance:[employer] MEDICARE ADVANTAGEPolicy Number: [id number] Date:2024-05-07 LAN RODRIGUEZDOB: [id number] [place], [place] [address]Jpe: (HP) [facility] 09/25/2024 LAN RODRIGUEZDOB: [place], [place] [address]Hwk: (HP) Primary Insurance:[facility] MEDICARE ADVANTAGEPolicy Number: [id number] Date: LAN RODRIGUEZDOB: [id number] [place], [place] [address]Zth: (HP) [facility] 09/23/2024 Lan Rodriguez [address] [place] [address]Xku: (HP) Primary Insurance:Self PayPolicy Number: Effective Date:2024-09-23 [facility] 06/18/2024 Lan Rodriguez [address] [place] [address]Drx: (HP) Primary Insurance:[employer] PFFSPolicy Number: [id number] Date:2024-06-18 Lan Rodriguez SRDOB: [id number] [place] [address]Vjk: (HP) [facility] 06/18/2024 Secondary Insurance:Self PayPolicy Number: Effective Date:2024-06-18 [facility] 04/11/2024 LAN RODRIGUEZDOB: [place], [place] [address]Kwe: (HP) Primary Insurance:[facility] MEDICARE ADVANTAGEPolicy Number: [id number] Date: LAN MILLERB: [id number] [place], [place] [address]Jmz: () [facility] 04/07/2024 LAN MARTINEZ: [place] [address]Oyq: () Primary Insurance:[facility] Number: [id number] Date:2022-09-04 LAN MARTINEZ: [id number] [place] [address] [facility] EPIC
--- OUTSIDE RECORDS SUMMARY | 2025-02-02 13:01 | XMS_ITS | Clinical Summary ---
Author Organization [facility] Address [address] [place] [address] Care Team Providers Care Side Stitcher Name Role Phone Raman Daley DO Unavailable [phone] Leticia Blanco LACER AND TIER Unavailable [phone] Suzanna Ybarra NP Unavailable Unavailable Allergies [...] Plan of Treatment Not on file Insurance [facility] Care Teams Side Stitcher Relationship Specialty Start Date End Date Raman Daley DO [address] [phone] Referring Physician Neurology 04/07/24 Leticia Blanco NP [address] [address] Nurse Practitioner Neurology 04/07/24 Suzanna Ybarra NP [address] [address] Nurse Practitioner Neurology 04/07/24
--- OUTSIDE RECORDS SUMMARY | 2025-02-02 13:01 | XMS_ITS | Patient Health Record ---
Author Organization [facility] vices Address [address] [place], [place] [id number] Care Team Providers Care Brake Repair Supervisor Name Role Phone Ximena Walters Unavailable [phone] Ned Rizo Unavailable [phone] Allergies No Known Allergies Results Component Value [...] UNLESS OTHERWISE INDICATED, ALL TESTING PERFORMED AT: [employer] [address] [place] [address] CONSTRUCTION COST ESTIMATOR: SHIRLEY MCCARTY M.D. CLIA NUMBER [id number] CAP ACCREDITATION AUID [id number] Changes in testing location may be associated [...] Polyneuropathy due to type 2 diabetes mellitus (269342962) Type 2 diabetes mellitus with diabetic polyneuropathy (E11.42) Active confirmed Problem Essential hypertension (88106513) Essential hypertension (I10) Active confirmed Problem Hyperlipidemia (93992120) Mild hyperlipidemia (E78.5) Active confirmed Problem Amputation of toe (967222126) Amputation toe (S98.139A) Active confirmed Vital Signs Heart Rate 97 /min 09/30/2024 denies pain. Mn Penelope tripp 09/30/2024 01:20:48 PM EDT > Temperature 97.4 degrees Fahrenheit 09/30/2024 fermin es pain. Penelope Faria 09/30/2024 01:20:48 PM EDT > Respiratory Rate 18 /min 09/30/2024 denies pain . Penelope Faria 09/30/2024 01:20:48 PM EDT > Height-cm 175.26 cm 09/30/2024 denies pain. Mn Penelope tripp 09/30/2024 01:20:48 PM EDT > Oximetry 98 % 09/30/2024 denies pain. Mn Penelope tripp 09/30/2024 01:20:48 PM EDT > Blood pressure diastolic 72 mm Hg 09/30/2024 den ies pain. Penelope Faria 09/30/2024 01:20:48 PM EDT > Weight-kg 72.53 kg 09/30/2024 denies pain. Mn Penelope tripp 09/30/2024 01:20:48 PM EDT > Height 69 in 09/30/2024 denies pain. Mn Penelope tripp 09/30/2024 01:20:48 PM EDT > Blood pressure systolic 101 mm Hg 09/30/2024 fermin es pain. Penelope Faria 09/30/2024 01:20:48 PM EDT > Weight 159.9 lbs 09/30/2024 denies pain. Mn Penelope tripp 09/30/2024 01:20:48 PM EDT > BMI 23.61 kg/m2 09/30/2024 denies pain. Mn Penelope tripp 09/30/2024 01:20:48 PM EDT > Encounters Encounter Location Date Provider Diagnosis Main [address] [place] [id number] 04/17/2024 [facility] Encounter for well ness examination Z00.00 ; [...] index [BMI] 26.0-26.9, adult Z68.26 [address] [place], [place] [id number] 05/01/2024 [facility] Closed fracture of multiple ribs of right side with routine healing, subsequent encounter S22.41XD ; Essential hypertension I10 ; Mild hyperlipidemia E78.5 ; Type 2 diabetes mellitus with diabetic polyneuropathy E11.42 ; Body mass index [BMI] 25.0-25.9, adult Z68.25 and Overweight E66.3 [address] [facility] [place] [place] [id number] 09/30/2024 Ned Studd Mild hyperlipidemi a E78.5 ; Essential hypertension I10 ; Amputation toe S98.139A and Osteomyelitis of right foot, unspecified type M86.9 [address] [place], [place] [id number] 04/17/2024 [facility] Main [address] [place], [place] [id number] 05/15/2024 [facility] Essential hyperten nevin I10 and Mild hyperlipidemia E78.5 [address] [place], [place] [id number] 09/26/2024 Ned Studd [address] [place], [place] [id number] 01/01/2025 Ned Studd Mild hyperlipidemi a E78.5 [address] [place], [place] [id number] 01/01/2025 Ned Studd Essential hyperten nevin I10 [...] Continue following w/ Barrie Pierre CNP from [facility] 09/30/2024 Osteomyelitis of right [...] Insured Coverage Start Date Coverage End Date [employer] Medicare Advantage [address] [place] [address] [id number] 6 [facility] 0 Jassi Rodriguez Self - patient is the insured 5 Medical (General) History Medical History History ICD Code Type 2 Diabetes Hyperlipidemia Surgical History Surgery Date(Month/Year) [facility] right foot september 2024 Hospitalization History Reason Date(Month/Year) right foot september 2024
--- OUTSIDE RECORDS SUMMARY | 2025-02-02 13:01 | XMS_ITS | Clinical Summary ---
Author Organization [employer] Address [facility] [place] [address] [place] [address] Care Team Providers Care Sheeter Waxer Operator Name Role Phone No Pcp, No [...] 10/07/2024 Gangrene 10/07/2024 Critical limb ischemia of [facility] lower extremity with gangrene 09/25/2024 Assessment & [...] extremity angiogram and intervention. Facial cellulitis 09/16/2016 Family History Medical History Relation Name Comments [...] Health Maintenance Due Date Last Done Comments Statin Use: Cardiovascular 1961 Depression Screening 1973 DTaP,Tdap and Td Vaccines [...] 1:01 PM 09/16/2016 8:20 PM Care Teams Sheeter Waxer Operator Relationship Specialty Start Date End Date No Pcp, [place] [address] PCP - General Family Medicine 04/11/24
== END 2025-01-21 12:59 | disposition home or self-care (01) ==
LOC: LAB 12:58
PROVIDERS: PCP Family Medicine; Visit Provider Podiatrist Foot & Ankle Surgery
DX: M86.8X7 Other osteomyelitis, ankle and foot (principal)

== ENCOUNTER 2025-02-04 08:58 | Outpatient (OUT) | payer MEDICARE, SELFPAY ==
--- OUTSIDE RECORDS SUMMARY | 2024-10-30 06:30 | XMS_ITS ---
Author Organization [facility] vices Address [address] [place], [place] [address] Care Team Providers Care Awake Overnight Counselor Name Role Phone Ximena Walters Unavailable [phone] REASON FOR VISIT 6 month DM2, HTN Encounters Encounter Location Date Provider Diagnosis Main [address] [facility] [phone] 10/30/2024 Ximena Walters Plan Of Treatment No Information Progress Notes * RODRIGUEZJassi CONTRERASDOB: [birth year] (64 yo M)Acc No.[id number]:10/30/2024 Medical Note Patient: Jassi KNIGHT Provider: Jonah Walters :1960 A ge:64 Y S ex:Male Date:10/30/2024 Address:[address] [place], [place] [address] Subjective: * Chief Complaints: * 1 . 6 month DM2, HTN. * Medical History: Objective: * Vitals: Assessment: Plan: * Treatment: * Billing Information: * Visit Code: * Procedure Codes: * Electronic signature of LEXY Horton sa on 02/04/2025 at 09:00 AM EDT Sign off status: Pending * Provider: Jonah Walters Date: 0 10/30/2024 Generated for Meliza gonzalez/Gabriel/eTransmarias on: 1 09:00 AM EDT
--- OUTSIDE RECORDS SUMMARY | 2025-01-21 09:30 | XMS_ITS ---
Author Name Auto Generated Organization OHIP Care Team Providers Care Assurance Senior Manager Name Role Phone PARRISH LOCKE Attending Unavailable NO PCP, NO PCP Primary Care Unavailable TAWANA CASAS Attending Unavailable MAYRA SPERAS Referring Unavailable NO PCP, NO PCP Primary Care Unavailable MAYRA SPEARS Referring Unavailable NO PCP, NO PCP Primary Care Unavailable TAWANA CASAS Admitting Unavailable TAWANA CASAS Attending Unavailable NO PCP, NO PCP Primary Care Unavailable TAWANA CASAS Attending Unavailable NO PCP, NO PCP Primary Care Unavailable Mayra Spears Attending Unavailable Mayra Spears Admitting Unavailable Mayra Spears Admitting Unavailable Mayra Spears Attending Unavailable Yolette Pierre Admitting Unavailable Yolette Pierre Attending Unavailable Mayra Spears Attending Unavailable Mayra Spears Admitting Unavailable Mayra Spears Attending Unavailable Mayra Spears Admitting Unavailable MELANIE DAVID Attending Unavailable PROBLEMS DATE TYPE CONDITION / CODE ATTENDING STATUS [facility] 10/07/2024 Unknown Atherosclerosis of [place] arteries of extremities with gangrene, right leg / I70.261(ICD-10) TAWANA CASAS [facility] 10/07/2024 Unknown Peripheral vascu lar disease, unspecified / I73.9(ICD-10) NA [facility] 10/07/2024 Unknown Gangrene, not el sewhere classified / I96(ICD-10) [facility] 10/07/2024 Unknown Other specified symptoms and signs involving the circulatory and respiratory systems / R09.89(ICD-10) [facility] 06/18/2024 Unknown Type 2 diabetes mellitus with hyperglycemia / E11.65(ICD-10) [facility] 06/18/2024 Unknown Vitamin D defici ency, unspecified / E55.9(ICD-10) [facility] 06/18/2024 Unknown Hyperlipidemia, unspecified / E78.5(ICD-10) [facility] 06/18/2024 Unknown Essential (prima ry) hypertension / I10(ICD-10) [facility] 06/18/2024 Unknown Proteinuria, uns pecified / R80.9(ICD-10) [facility] 04/11/2024 Unknown Fall on same lev el from slipping, tripping and stumbling without subsequent striking against object, initial encounter / W01.0XXA(ICD-10) [facility] 04/11/2024 Unknown Multiple fractur es of ribs, right side, initial encounter for closed fracture / S22.41XA(ICD-10) [facility] 04/11/2024 Unknown Fall / FREETEXT(AOF) [facility] 04/11/2024 Unknown fall / UNK(Unknown) [facility] PROCEDURES No Procedure Records Found RESULTS PATHOLOGY REQUEST FOR LAB LUIS ANTONIO Collected: 01/21/2025 9:30 AM Status: F Source: [facility] TYPE CODE TESTS RESULT OUT OF RANGE REFERENCE UNITS LAB PATH TO [facility] Pathology Request for Lab Luis Antonio Result Comment: See report. Scanned copy available in EMR. PERFORMED BY: [place] [address] PATHOLOGIST BIOINFORMATICS ENGINEER GOOD RIDDLE M.D. Performed By: #### LIBERTY YEE #### [place] [id number] [facility] L Observed: 11/12/2024 1:45 PM Status: Nolberto Source: [facility] ----- ------- Specimen: [id number] Received: 11/13/24 Status: LORENA Childs Num: [id number] Spec Type: Surgical Subm Dr: Mayra Spears DPM, MS Tissues: A DIGIT AMPUTATION (BONE FROM R 2nd TOE) Procedures: HE/2, Gross/Micro L4, Decalcification ----- ------- Age/ Patient Sex Location Account Attending Physician ----- ------- Lan Rodriguez SR 64/M LABELL [id number] Mayra Spears DPM, ----- ------- SPEC NUM: [id number] RECD: 11/13/24 STATUS: LORENA CHILDS NUM: [id number] SCOTT: 11/12/24 [facility] DR: Mayra Spears,DPM, MS ENTERED: 11/13/[address]: Megan,Lab SPEC TYPE: Surgical DEPT: THANH MURRAY ENTERED BY: [id number] RECV BY: [id number] ORDERED: HE/2, Gross/Micro L4, Decalcification ORDERED: HE/2, [...] soft tissue submitted in A2. (2, , [id number] A) CPT Codes 96985, 06019 ----- ------- ----- ------- Specimen: [id number] Received: 11/13/24 Status: LORENA Childs Num: [id number] Spec Type: Surgical Subm Dr: Mayra Spears,DPM, MS Tissues: A DIGIT AMPUTATION (BONE FROM R 2nd TOE) Procedures: HE/2, Gross/Micro L4, Decalcification ----- ------- Patient: Lan Rodriguez [id number] (Continued) ----- ------- Signed (signature on file) Uziel Lozano MD 11/18/24 1140 PATHOLOGY REQUEST FOR LAB LUIS ANTONIO Collected: 10/29/2024 2:45 PM Status: F Source: [facility] Order Comment: BONE 2ND RT T OE TYPE CODE TESTS RESULT OUT OF RANGE REFERENCE UNITS LAB PATH TO [facility] Pathology Request for Lab Luis Antonio Result Comment: See report. Scanned copy available in EMR. PERFORMED BY: [place] [address] PATHOLOGIST BIOINFORMATICS ENGINEER GOOD RIDDLE M.D. Performed By: #### PATH TO Syeda YEE #### [address] PORTABLE GLUCOSE Collected: 5 10:49 AM Status: COMPLETED Source: [facility] TYPE CODE TESTS RESULT OUT OF RANGE REFERENCE UNITS LAB IGLU PORTABLE GLUCOSE 89 65-99 mg/dL Performed By: #### IGLU #### [facility] ([facility]) [address] [place] [address] VIR POCT BUN, CREAT Collected: 10:49 AM Status: COMPLETED Source: [facility] TYPE CODE TESTS RESULT OUT OF RANGE REFERENCE UNITS LAB IBUN PORTABLE BUN 17 6-27 mg/dL LAB ICRET PORTABLE CREATININE 1.1 0.7-1.2 mg/dL LAB IEGFR POC EGFR (CKD-EPI) NON-RACE DEPENDENT 75 >=60 ml/min/1. 73sq.m Result Comment: Reported eGF R is based on the CKD-EPI 2020 equation that does not use a race coefficient. Performed By: #### IBC #### [facility] ([facility]) [address] [place] [address] VIR L Observed: 09/23/2024 9:38 AM Status: F Source: [facility] ----- ------- Specimen: [id number] Received: 09/23/24-1299 Status: LORENA Childs Num: [id number] Spec Type: Surgical Subm Dr: Mayra Spears,DPM, MS Tissues: A DIGIT AMPUTATION (RIGHT DISTAL PHALANX) B DIGIT AMPUTATION (RIGHT PROXIMAL PHALANX) Procedures: HE/3, Gross/Micro L4/2, Decalcification/2 ----- ------- Age/ Patient Sex Location Account Attending Physician ----- ------- Lan Rodriguez 64/M LABELL [id number] Mayra Spears DPM, MS ----- ------- SPEC NUM: [id number] RECD: 09/23/24 STATUS: SOHABrigitte HARMONY NUM: [id number] SCOTT: 09/23/24 [facility] DR: Mayra Spears DPM, MS ENTERED: 09/23/24-[address]: Megan,Lab SPEC TYPE: Surgical DEPT: [facility]AN[facility] MURRAY ENTERED BY: [id number] RECV BY: [id number] ORDERED: HE/3, Gross/Micro L4/2, Decalcification/2 ORDERED: HE/3, [...] gangrene right great toe ----- ------- Specimen: [id number] Received: 09/23/24-1299 Status: LORENA Childs Num: [id number] Spec Type: Surgical Subm Dr: Mayra Spears,DPM, MS Tissues: A DIGIT AMPUTATION (RIGHT DISTAL PHALANX) B DIGIT AMPUTATION (RIGHT PROXIMAL PHALANX) Procedures: HE/3, Gross/Micro L4/2, Decalcification/2 ----- ------- Patient: Lan Rodriguez SR [id number] (Continued) ----- ------- Specimen: [id number] Received: 09/23/24-1299 (Continued) Signed (signature on file) Mingo Mejia MD 09/26/24 6720 ----- ------- Specimen: [id number] Received: 09/23/24 Status: LORENA Childs Num: [id number] Spec Type: Surgical Subm Dr: Mayra Spears,DPM, MS Tissues: A DIGIT AMPUTATION (RIGHT DISTAL PHALANX) B DIGIT AMPUTATION (RIGHT PROXIMAL PHALANX) Procedures: HE/3, Gross/Micro L4/2, Decalcification/2 ----- ------- Patient: MichaelLan [id number] (Continued) ----- ------- Specimen: [id number] Received: 09/23/24 (Continued) Gross Description Part A [...] skin margin submitted in A2. (2, ss, [id number] A) Part B is received in formalin [...] Description Microscopic examination is performed CPT Codes 00344x3 77128b8 ----- ------- ----- ------- Specimen: [id number] Received: 09/23/24 Status: LORENA Childs Num: [id number] Spec Type: Surgical Subm Dr: Mayra Spears,DPM, MS Tissues: A DIGIT AMPUTATION (RIGHT DISTAL PHALANX) B DIGIT AMPUTATION (RIGHT PROXIMAL PHALANX) Procedures: HE/3, Gross/Micro L4/2, Decalcification/2 ----- ------- Patient: RodriguezLan [id number] (Continued) ----- ------- Signed (signature on file) Mingo Mejia MD 09/26/24 1340 MICROALB CREAT RATIO,U Collected: 06/18 10:18 AM Status: F Source: [facility] TYPE CODE TESTS RESULT OUT OF RANGE REFERENCE UNITS LAB UMAT Microalbumin , Urine >45.0 High 0.0-1.8 mg/dL LAB UCREA Creatinine, Urine (Random) 123.00 mg/dL Result Comment: No reference range established LAB MACREATRATIO Microalbumin /Creatinine Ratio Test not performed 0.0-30.0 Result Comment: PERFORMED BY : [facility] [address] [place] [address] PATHOLOGIST BIOINFORMATICS ENGINEER TAWANA BONILLA M.D. Performed By: #### ESTRADA T #### [facility] [address] ABDOMEN WO CONT Observed: 04/11/2024 10:57 AM Status: COMPLETED Source: [facility] CT ABDOMEN WO CONT HISTORY and Tech [...] 04/11/2024 10:54 AM Status: COMPLETED Source: [facility] CT CHEST WO CONT CT Chest without [...] / CODE REACTION SEVERITY SOURCE 01/01/2025 Drug Allergy/45390691 2(SNOMED CT) No Known Allergies/O687170479 (RXNORM) Unknown [facility] Drug Class/827613791( SNOMED CT) NO KNOWN ALLERGIES [facility] ENCOUNTERS ADMIT/DISCHARGE ACCOUNT NUMBER ADMITTING ENCOUNTER CLASS LOCATION SOURCE 01/21/2025/01/22/20 [id number] [facility] 11/12/2024/11/13/19 [id number] [facility] 10/29/2024/10/30/19 [id number] [facility] 10/23/2024/10/24/19 [id number] Ambulatory Buildin 61 [facility] 10/17/2024/10/18/19 [id number] TAWANA CASAS Ambulatory Building:PTH _CVRRoom: CVU BAYBed: CVU [facility] 10/07/2024/10/08/19 [id number] Ambulatory Building:[facility] _[facility] 09/25/2024/09/26/19 [id number] Ambulatory Buildin 62 [facility] 09/23/2024/09/24/19 [id number] [facility] Spears [facility] 06/18/2024/06/18/19 [id number] [facility]irre [facility] 04/11/2024/04/11/20 24 [id number] Emergency Building:PF _EDRoom: 12Bed: 12 [facility] 04/07/2024/04/07/20 24 [id number] Ambulatory Building:[facility]R NEURO [facility] EPIC PAYERS ENCOUNTER GUARANTOR PAYER SUBSCRIBER SOURCE 01/21/2025 Lan Rodriguez [address] [place] [address]Tnt: (HP) Primary Insurance:Self PayPolicy Number: Effective Date:2025-01-21 [facility]2024 [facility] [place] [address]Iow: (HP) Primary Insurance:Self PayPolicy Number: Effective Date:2024-11-12 [facility] 10/29/2024 Lan [place] [address]Qcs: (HP) Primary Insurance:Self PayPolicy Number: Effective Date:2024-10-29 [facility] 10/23/2024 LAN RUBIOYESIB: [place], [place] [address]Dpr: (HP) Primary Insurance:[employer] MEDICARE ADVANTAGEPolicy Number: [id number] Date:2024-05-07 LAN RUBIOYESIB: [id number] [place] [address]Kwe: (HP) [facility] 10/17/2024 LAN RUBIOYESIB: [place], [place] [address]Hvu: (HP) Primary Insurance:[employer] MEDICARE ADVANTAGEPolicy Number: [id number] Date:2024-05-07 LAN RODRIGUEZB: [id number] [place] [address]Kxc: (HP) [facility] 10/07/2024 LAN RUBIOYESIB: [place], [place] [address]Zwa: (HP) Primary Insurance:[employer] MEDICARE ADVANTAGEPolicy Number: [id number] Date:2024-05-07 LAN RODRIGUEZDOB: [id number] [place], [place] [address]Ruw: (HP) [facility] 09/25/2024 LAN RODRIGUEZDOB: [place], [place] [address]Rwo: (HP) Primary Insurance:[facility] MEDICARE ADVANTAGEPolicy Number: [id number] Date: ALN RODRIGUEZDOB: [id number] [place], [place] [address]Uxz: (HP) [facility] 09/23/2024 Lan Rodriguez [address] [place] [address]Wsd: (HP) Primary Insurance:Self PayPolicy Number: Effective Date:2024-09-23 [facility] 06/18/2024 Lan Rodriguez [address] [place] [address]Qpm: (HP) Primary Insurance:Nellie MCR PFFSPolicy Number: [id number] Date:2024-06-18 Lan Rodriguez SRDOB: [id number] [place] [address]Bkd: (HP) [facility] 06/18/2024 Secondary Insurance:Self PayPolicy Number: Effective Date:2024-06-18 [facility] 04/11/2024 LAN RODRIGUEZDOB: [place], [place] [address]Bld: (HP) Primary Insurance:[facility] MEDICARE ADVANTAGEPolicy Number: [id number] Date: LAN MILLERB: [id number] [place], [place] [address]Nsq: () [facility] 04/07/2024 LAN MARTINEZ: [place] [address]Rzs: () Primary Insurance:[facility] Number: [id number] Date:2022-09-04 LAN MARTINEZ: [id number] [place] [address] [facility] EPIC
--- OUTSIDE RECORDS SUMMARY | 2025-02-04 09:00 | XMS_ITS | Clinical Summary ---
Author Organization [facility] Address [address] [place] [address] Care Team Providers Care Tissue Recovery Technician Name Role Phone Raman Daley DO Unavailable Leticia Blanco TENNIS PLAYER Unavailable [phone] Suzanna Ybarra NP Unavailable Unavailable Allergies [...] Plan of Treatment Not on file Insurance [facility] Care Teams Tissue Recovery Technician Relationship Specialty Start Date End Date Raman Daley DO [address] [phone] Referring Physician Neurology 04/07/24 Leticia Blanco NP [address] [address] Nurse Practitioner Neurology 04/07/24 Suzanna Ybarra NP [address] [address] Nurse Practitioner Neurology 04/07/24
--- OUTSIDE RECORDS SUMMARY | 2025-02-04 09:00 | XMS_ITS | Clinical Summary ---
Author Organization [employer] Address [facility] [place] [id number] [address] [place] [address] Care Team Providers Care Operations Architect Name Role Phone No Pcp, No Pcp [...] 10/07/2024 Gangrene 10/07/2024 Critical limb ischemia of [facility] lower extremity with gangrene 09/25/2024 Assessment & [...] 1:01 PM 09/16/2016 8:20 PM Care Teams Operations Architect Relationship Specialty Start Date End Date No Pcp, [place] [address] PCP - General Family Medicine 04/11/24
--- OUTSIDE RECORDS SUMMARY | 2025-02-04 09:00 | XMS_ITS | Patient Health Record ---
Author Organization [facility] vices Address [address] [place], [place] [id number] Care Team Providers Care Architect Intern Name Role Phone Ximena Walters Unavailable [phone] Ned Rizo Unavailable [phone] Allergies No Known Allergies Results Component Value [...] UNLESS OTHERWISE INDICATED, ALL TESTING PERFORMED AT: [employer] [address] [place] [address] REHAB TECHNICIAN: SHIRLEY MCCARTY M.D. CLIA NUMBER [id number] CAP ACCREDITATION AUID [id number] Changes in testing location may be associated [...] Polyneuropathy due to type 2 diabetes mellitus (147192745) Type 2 diabetes mellitus with diabetic polyneuropathy (E11.42) Active confirmed Problem Essential hypertension (74244189) Essential hypertension (I10) Active confirmed Problem Hyperlipidemia (60309498) Mild hyperlipidemia (E78.5) Active confirmed Problem Amputation of toe (095102689) Amputation toe (S98.139A) Active confirmed Vital Signs Heart Rate 97 /min 09/30/2024 denies pain. Id Penelope tripp 09/30/2024 01:20:48 PM EDT > Temperature 97.4 degrees Fahrenheit 09/30/2024 fermin es pain. Penelope Faria 09/30/2024 01:20:48 PM EDT > Respiratory Rate 18 /min 09/30/2024 denies pain . Penelope Faria 09/30/2024 01:20:48 PM EDT > Height-cm 175.26 cm 09/30/2024 denies pain. Id Penelope tripp 09/30/2024 01:20:48 PM EDT > Oximetry 98 % 09/30/2024 denies pain. Id Penelope tripp 09/30/2024 01:20:48 PM EDT > Blood pressure diastolic 72 mm Hg 09/30/2024 den ies pain. Penelope Faria 09/30/2024 01:20:48 PM EDT > Weight-kg 72.53 kg 09/30/2024 denies pain. Id Penelope tripp 09/30/2024 01:20:48 PM EDT > Height 69 in 09/30/2024 denies pain. Id Penelope tripp 09/30/2024 01:20:48 PM EDT > Blood pressure systolic 101 mm Hg 09/30/2024 fermin es pain. Penelope Faria 09/30/2024 01:20:48 PM EDT > Weight 159.9 lbs 09/30/2024 denies pain. Id Penelope tripp 09/30/2024 01:20:48 PM EDT > BMI 23.61 kg/m2 09/30/2024 denies pain. Id Penelope tripp 09/30/2024 01:20:48 PM EDT > Encounters Encounter Location Date Provider Diagnosis Main [address] [place] [id number] 04/17/2024 [facility] Encounter for well ness examination Z00.00 ; [...] index [BMI] 26.0-26.9, adult Z68.26 [address] [place], [place] [id number] 05/01/2024 [facility] Closed fracture of multiple ribs of right side with routine healing, subsequent encounter S22.41XD ; Essential hypertension I10 ; Mild hyperlipidemia E78.5 ; Type 2 diabetes mellitus with diabetic polyneuropathy E11.42 ; Body mass index [BMI] 25.0-25.9, adult Z68.25 and Overweight E66.3 [address] [facility] [place] [place] [id number] [facility]/30/2024 Ned Studd Mild hyperlipidemi a E78.5 ; Essential hypertension I10 ; Amputation toe S98.139A and Osteomyelitis of right foot, unspecified type M86.9 [address] [place], [place] [id number] 04/17/2024 [facility] [address] [place], [place] [id number] 05/15/2024 [facility] Essential hyperten nevin I10 and Mild hyperlipidemia E78.5 [address] [place], [place] [id number] 09/26/2024 Ned Studd [address] [place], [place] [id number] 01/01/2025 Ned Studd Mild hyperlipidemi a E78.5 [address] [place], [place] [id number] 01/01/2025 Ned Studd Essential hyperten nevin I10 [...] Continue following w/ Barrie Pierre CNP from [facility] 09/30/2024 Osteomyelitis of right foot, unspecified [...] Insured Coverage Start Date Coverage End Date [place] Medicare Advantage [address] [place] [address] [id number] [facility] 0 Jassi Rodriguez Self - patient is the insured 5 Medical (General) History Medical History History ICD Code Type 2 Diabetes Hyperlipidemia Surgical History Surgery Date(Month/Year) [facility] right foot september 2024 Hospitalization History Reason Date(Month/Year) right foot september 2024
== END 2025-02-04 08:59 | disposition home or self-care (01) ==
LOC: WC 08:58
PROVIDERS: PCP Family Medicine; Visit Provider Podiatrist Foot & Ankle Surgery
DX: I70.261 Atherosclerosis of native arteries of extremities with gangrene, right leg (principal); L97.514 Non-pressure chronic ulcer of other part of right foot with necrosis of bone
CPT/HCPCS: G0463

== ENCOUNTER 2025-02-18 10:06 | Outpatient (OUT) | payer MEDICARE, SELFPAY ==
--- OUTSIDE RECORDS SUMMARY | 2025-02-18 10:09 | XMS_ITS | Clinical Summary ---
Author Organization [facility] Address [address] [place] [address] Care Team Providers Care Ocean Import Representative Name Role Phone Raman Daley DO Unavailable [phone] Leticia Blanco SEROLOGY TECHNICIAN Unavailable [phone] Suzanna Ybarra NP Unavailable Unavailable Allergies [...] Plan of Treatment Not on file Insurance [facility] Care Teams Ocean Import Representative Relationship Specialty Start Date End Date Raman Daley DO [address] [phone] Referring Physician Neurology 04/07/24 Leticia Blanco NP [address] [address] Nurse Practitioner Neurology 04/07/24 Suzanna Ybarra NP [address] [address] Nurse Practitioner Neurology 04/07/24
--- OUTSIDE RECORDS SUMMARY | 2025-02-18 10:09 | XMS_ITS | Clinical Summary ---
Author Organization [employer] Address [id number] [address] [place] [address] Care Team Providers Care Instructor Watch Assembly Name Role Phone No Pcp, No Pcp [...] 10/07/2024 Gangrene 10/07/2024 Critical limb ischemia of [facility] lower extremity with gangrene 09/25/2024 Assessment & [...] 1:01 PM 09/16/2016 8:20 PM Care Teams Instructor Watch Assembly Relationship Specialty Start Date End Date No Pcp, [place] [address] PCP - General Family Medicine 04/11/24
--- OUTSIDE RECORDS SUMMARY | 2025-02-18 10:14 | XMS_ITS | CCD ---
Author Organization [facility] Care Team Providers Care Vessel Traffic Officer Name Role Phone MARCEL PAIZ Attending Unavailable NORY WAN Consulting Unavailable ANNIE RODGERS Primary Care Unavailable MARCEL PAIZ Admitting Unavailable MARCEL PAIZ Consulting Unavailable Yolette Pierre Unavailable Annie Rodgers Unavailable MD Annie Rodgers Primary Care Provider TIFFANIE Pierre Attending Provider Unavailable Primary Care Provider UnavailMelanie Hale DO Unavailable Francis FREIGHT CAR BUILDER, Leticia Unavailable Tate FREIGHT CAR BUILDER, Suzanna Unavailable MELANIE DALEY Attending Unavailable Yolette Pierre APRN Attending Provider PARRISH LOCKE Attending Unavailable NO PCP, NO PCP Primary Care Unavailable MAYRA SPEARS Referring Unavailable NO PCP, NO PCP Primary Care Unavailable Mayra Spears DPM Attending Provider [phone] AUGUSTO, MOHAMED F Admitting Unavailable AUGUSTO, MOHAMED F Attending Unavailable NO PCP, NO PCP Primary Care Unavailable No Pcp, No Pcp Primary Care Provider Unavailabl warren FLOODAN, MOHAMED F Attending Unavailable MAYRA SPEARS Referring Unavailable NO PCP, NO PCP Primary Care Unavailable AUGUSTO, MOHAMED F Attending Unavailable NO PCP, NO PCP Primary Care Unavailable Selena FREIGHT CAR BUILDER-C, Francisco Lee Primary Care Provider Estephanie CARVALHO, Krys Mckenzie Attending Provider [phone] Shaji CARVALHO, Attending Provider Desiree Garcia CMA Attending Provider Unavaila ble Yolette Pierre APRN Attending Provider NON STAFF Primary Care Provider Unavailoctaviano kelley Mayra Spears DPM Attending Provider [phone] Yolette Pierre APRN Attending Provider NON STAFF Primary Care Provider UnavailMayra Shepard Attending Unavailable Mayra Spears Admitting Unavailable Mayra Spears Admitting Unavailable Mayra Spears Attending Unavailable Yolette Pierre Attending Unavailable Yolette Pierre Admitting Unavailable Mayra Spears Admitting Unavailable Mayra Spears Attending Unavailable Mayra Spears Attending Unavailable Mayra Spears Admitting Unavailable Medications Current Medications Medication Drug [...] 09/25/2024 Active Blood-Glucose Meter (Onetouch Ultra2 Meter) [facility] (14 sources) Start: 06-18-2024 Blood-Glucose Meter (Onetouch Ultra2 Meter) mis Active 0 .Route 1 June 18, 2024 10:07am As directed test blood sugar three times daily Start: 06-18-2024 Blood-Glucose Meter (Onetouch Ultra2 Meter) mis Active 0 .Route 1 June 18, 2024 9:07am As directed test blood sugar three times daily Start: 06-18-2024 End: 06-18-2024 Blood-Glucose Meter (Onetouc h Ultra2 Meter) [facility] Discontinued 0 .Route June 18, 2024 1:00am June 18, 2024 10:08am As directed Start: 06-18-2024 End: 06-18-2024 Blood-Glucose Meter (Onetouc h Ultra2 Meter) misc Discontinued 0 .Route June 18, 2024 12:00am June 18, 2024 9:08am As directed cholecalciferol 0.05 mg oral capsule (16 sources) Vitamin D Start: 09-05-2023 take 1 capsule by mo uth once daily Start: 12-19-2022 take 1 capsule by mo uth every week Cholecalciferol 1.25 MG (17200 UT) 1 capsule Orally weekly for 56 days Then D3 OtC 4000 UT daily Dec, Active take 1 capsule by mo uth every week Cholecalciferol 100 MCG (4000 UT) 1 capsule Orally weekly for 56 days Then D3 OtC 4000 UT daily Active take 1 capsule by mo uth every week Cholecalciferol 1.25 MG (55444 UT) 1 capsule Orally weekly for 56 days Then D3 OtC 4000 UT daily Active ciprofloxacin 500 mg oral tablet (2 sources) Quinolone Antimicrobial Start: 01-02-2025 take 1 tablet by mouth twice daily Start: 09-23-2024 take 1 tablet by destiny th in the morning, then take 1 tablet [...] Sodium-Glucose Cotransporter 2 Inhibitor Start: 09-05-2023 End: 01-14-2025 take 1 tablet by mouth once daily Start: 02-03-2022 take 1 tablet by destiny [...] has coupon card Active Flash Glucose Scanning [place] (Freestyle Roberta 2 [place]) misc (18 sources) Start: 09-07-2023 Flash Glucose Scanning [place] (Freestyle Roberta 2 [place]) misc Active 0 .MEDSUPPLY September 07, 2023 12:58pm As directed to monitor blood sugar Start: 09-07-2023 Flash Glucose Scanning [place] (Freestyle Roberta 2 [place]) misc Active 0 .MEDSUPPLY September 07, 2023 1:58pm As directed to monitor blood sugar Start: 09-07-2023 End: 09-07-2023 Flash Glucose Scanning [place] (Freestyle Roberta 2 [place]) misc Discontinued 0 .MEDSUPPLY September 06, 2023 11:00pm September 07, 2023 1:01pm As directed Start: 09-07-2023 End: 09-07-2023 Flash Glucose Scanning [place] (Freestyle Roberta 2 [place]) misc Discontinued 0 .MEDSUPPLY September 07, 2023 [...] 2023 12:00am As directed FreeStyle Roberta 2 [place] - (20 sources) Start: 08-24-2021 FreeStyle Libr e 2 [place] - as directed SQ 5 x day [...] 04/11/2024 Active OXcarbazepine 150 mg oral tablet (10 sources) Anti-epileptic Agent Start: 04-07-2024 End: 04-07-2025 take 1 tablet by mouth once daily ozempic (0.25 or 0.5 mg/dose) 2 mg/3ml solution pen-injector (4 sources) Ozempic (0.25 or 0.5 MG/DOSE) 2 MG/3ML 0.5 mg Subcutaneous weely for 90 days COPAY CARD Active pen needle, diabetic (Novofine 32) (9 sources) Start: 09-05-2023 pen needle, diabetic (Novofine [...] 1 tablet by mouth once daily Semaglutide (15 sources) Start: 06-18-2024 inject 1 mg by [...] per day lisinopril 2.5 mg oral tablet (19 sources) Angiotensin Converting Enzyme Inhibitor Start: 09-05-2023 [...] Nov, Active take 2 tablets by mo [facility] at mealtime metFORMIN (Glucophage) 500 MG tablet Take 1,000 mg by mouth in the morning. Take with meals. Active take 2 tablets by mo ut in the morning, then take 1 tablet by mouth twice daily in the evening metFORMIN HCl ER 500 MG 2 TABLET AM, ONE TABLET PM Orally Twice daily for 90 days Active Prodigy Autocode Blood Gluco se - (5 sources) Start: 06-17-2020 Prodigy Autoco de Blood Glucose - as directed In Vitro QID for 90 days Jun, Not-Taking Semaglutide (18 sources) Start: 09-10-2023 End: 04-23-2024 Semaglutide (Ozempic) [...] Semglee 100 UNIT/ML 45 units Subcutaneou s QHS insurance changed from Lantus to Semglee Active [...] hypertension] Onset: 07-20-2021 Resolved: 11-01-2021 Chronic Gangrene (5 sources) Atherosclerosis of [place] arteries of extremities with gangrene, right leg; Translations: [Critical lower limb ischemia ] Onset: 09-25-2024 10-23-2024 Chronic Gangrene (4 sources) Gangrene, not elsewhere classified; Translations: [Gangrenous disorder] Onset: 09-25-2024 10-07-2024 Episodic Infective arthritis and osteomyelitis (except that caused by tuberculosis or sexually transmitted disease) (1 source) Osteomyelitis; Translations: [Osteomyelitis, unspecified] 01-07-2025 Chronic Malaise and fatigue (4 sources) Weakness; Translations: [WEAKNESS] Onset: 04-08-2020 Episodic Nutritional deficiencies (20 sources) Vitamin D deficiency; Translations: [Vitamin D deficiency, unspecified] Onset: 07-20-2021 Resolved: 11-01-2021 Chronic Open wounds of extremities (5 sources) Amputated big toe; 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, initial encounter] 10-09-2024 Chronic Comment on above: 09-23-2024 (est) Other aftercare (17 sources) USP (current) use of insulin; Translations: [...] systems] Onset: 10-07-2024 Episodic Other circulatory disease (9 sources) Low blood pressure; Translations: [Hypotension, unspecified] 10-09-2024 Episodic Other connective tissue disease (2 sources) Neuralgia; Translations: [Neuralgia and neuritis, unspecified] 04-07-2024 Episodic Other fractures (7 sources) Fracture of multiple ribs ; Translations: [...] Episodic Other nutritional; endocrine; and metabolic disorders (14 sources) Overweight in adulthood with body mass [...] pt to be seen Onset: 09-25-2024 Unclassified (2 sources) I10 - Essential (primary) hypertension,R80.9 - Proteinuria, [...] Test Name Value Interpretation Reference Range Facility Pathology Request for Lab Co rpon 01-21-2025 Pathology Request for Lab David Normal [facility] Comment on above: Result Comment: See report. Scanned copy available in EMR. PERFORMED BY: [place] [address] PATHOLOGIST SYSTEMS ARCHITECT GOOD RIDDLE M.D. Performed By: #### P ATH TO [facility] #### [address] No Panel InformationOrdered By: Yolette Pierre on 01-01-2025 Bedside Glucose 140 [facility] Gavino 11-12-2024 L Specimen: [id number] Received: 11/13/24 Status: LORENA Childs Num: [id number] Spec Type: Surgical Subm Dr: Mayra Spears,AN, MS Tissues: A DIGIT AMPUTATION (BONE FROM R 2nd TOE) Procedures: HE/2, Gross/Micro L4, Decalcification Age/ Patient Sex Location Account Attending Physician Jassi Rodriguez 64/M LABELL [id number] Mayra Spears DPM, MS SPEC NUM: [id number] RECD: 11/13/24 STATUS: LORENA COSTELLOSandeep NUM: [id number] SCOTT: 11/12/[address] [facility] DR: Mayra Spears DPM, MS ENTERED: 11/13/[address]: Megan,Lab SPEC TYPE: Surgical DEPT: THANH MURRAY ENTERED BY: [id number] RECV BY: [id number] ORDERED: HE/2, Gross/Micro L4, Decalcification ORDERED: HE/2, [...] soft tissue submitted in A2. (2, ss, [id number] A) CPT Codes 61246, 93920 Specimen: [id number] Received: 11/13/24 Status: LORENA Childs Num: [id number] Spec Type: Surgical Subm Dr: Mayra Spears,DPSaud, MS Tissues: A DIGIT AMPUTATION (BONE FROM R 2nd TOE) Procedures: HE/2, Gross/Micro L4, Decalcification Patient: Jassi Rodriguez SR [id number] (Continued) Signed (signature on file) Uziel Lozano MD 11/18/24 1140 Normal [facility] No Panel InformationOrdered By: Mayra Spears on 10-29-2024 Miscellaneous Pathology Test See comment [facility] Comment on above: See report. Scanned copy available in EMR. Pathology Request for Lab Co rpon 10-29-2024 Pathology Request for Lab David Normal [facility] Comment on above: Order Comment: BONE 2ND RT TOE Result Comment: See report. Scanned copy available in EMR. PERFORMED BY: [place] [address] PATHOLOGIST SYSTEMS ARCHITECT GOOD RIDDLE M.D. Performed By: #### P ATH TO [facility] #### [address] POCT BUN, CREATon 10-17-2024 Creatinine [Mass/Vol] 1.1 mg/dL Normal 0.7-1.2 [facility] Comment on above: Performed By: #### I BC #### [facility] ([facility]) [address] [place] [address] VIR GFR/1.73 sq M.predicted among non-blacks MDRD (S/P/Bld) [Vol rate/Area] 75 mL/min/{1.73_m2} Normal >=60 [facility] Comment on above: Result Comment: Repo rted eGFR is based on the CKD-EPI 2020 equation that does not use a race coefficient. Performed By: #### I BC #### [facility] ([facility]) [address] [place] [address] VIR Urea nitrogen [Mass/Vol] 17 mg/dL Normal 6-27 [facility] Comment on above: Performed By: #### I BC #### [facility] ([facility]) [address] [place] [address] VIR PORTABLE GLUCOSEon 5 Glucose [Mass/Vol] 89 mg/dL Normal 65-99 [facility] Comment on above: Performed By: #### I GLU #### [facility] ([facility]) [address] [place] [address] VIR HbA1c HPLC (Bld) [Mass fract ion]on 10-09-2024 HbA1c (Bld) [Mass fraction] 6.6 % [facility] No Panel Informationon 10-09 Bedside Glucose 123 [facility] Basophils Auto (Bld) [#/Vol] on 09-23-2024 Basophils (Bld) [#/Vol] Automated basophil count 0.0-0.1 [facility] Basophils (Bld) [#/Vol] 0.1 10 3/uL 0.0-0.1 [facility] Basophils/100 WBC Auto (Bld) on 09-23-2024 Basophils/100 WBC (Bld) Automated basophil % 0.2-2.0 [facility] Basophils/100 WBC (Bld) 0.7 % 0.2-2.0 [facility] Eosinophils/100 WBC Auto (Bl d)on 09-23-2024 Eosinophils/100 WBC (Bld) Automated eosinophil % Low 0.9-7.0 [facility] Eosinophils/100 WBC (Bld) 0.2 % Low 0.9-7.0 [facility] Erythrocyte distribution wid th Auto (RBC) [Ratio]on 09-23-2024 Erythrocyte distribution width (RBC) [Ratio] Erythrocyte distribution width [Ratio] by Automated count 11.0-15.0 [facility] Erythrocyte distribution width (RBC) [Ratio] 11.0 % 11.0-15.0 [facility] Estimated glomerular filtrat ion rate (GFR) non- Americanon 09-23-2024 GFR/1.73 sq M.predicted among non-blacks MDRD (S/P/Bld) [Vol rate/Area] Estimated glomerular filtration rate (GFR) non- >=60 mL/min/1.73m 2 [facility] GFR/1.73 sq M.predicted among non-blacks MDRD (S/P/Bld) [Vol rate/Area] mL/min/{1.73_m2} >=60 mL/min/1.73m 2 [facility] Globulin Calc (S) [Mass/Vol] on 09-23-2024 Globulin (S) [Mass/Vol] Serum globulin measurement by calculation (mass/volume) [facility] Globulin (S) [Mass/Vol] 5.6 g/dL [facility] Hematocrit Auto (Bld) [Volum e fraction]on 09-23-2024 Hematocrit (Bld) [Volume fraction] Hematocrit [Volume Fraction] of Blood by Automated count Low 42.0-54.0 [facility] Hematocrit (Bld) [Volume fraction] 34.7 % Low 42.0-54.0 [facility] Hemoglobin [Mass/volume] in Bloodon 09-23-2024 Hemoglobin (Bld) [Mass/Vol] Hemoglobin [Mass/volume] in Blood Low 14.0-18.0 [facility] Hemoglobin (Bld) [Mass/Vol] 11.9 g/dL Low 14.0-18.0 [facility] Gav[place] 09-23-2024 L Specimen: [id number] Received: 09/23/24 Status: LORENA Childs Num: [id number] Spec Type: Surgical Subm Dr: Mayra Spears,AN, MS Tissues: A DIGIT AMPUTATION (RIGHT DISTAL PHALANX) B DIGIT AMPUTATION (RIGHT PROXIMAL PHALANX) Procedures: HE/3, Gross/Micro L4/2, Decalcification/2 Age/ Patient Sex Location Account Attending Physician Jassi Rodriguez 64/M LABELL [id number] Mayra Spears DPM, MS SPEC NUM: [id number] RECD: 09/23/24 STATUS: LORENA CHILDS NUM: [id number] SCOTT: 09/23/[address] [facility] DR: Mayra Spears DPM, MS ENTERED: 09/23/24-[address]: Megan,Lab SPEC TYPE: Surgical DEPT: THANH MURRAY ENTERED BY: [id number] RECV BY: [id number] ORDERED: HE/3, Gross/Micro L4/2, Decalcification/2 ORDERED: HE/3, [...] cellulitis, dry gangrene right great toe Specimen: [id number] Received: 09/23/24-1299 Status: LORENA Costellosandeep Num: [id number] Spec Type: Surgical Subm Dr: Mayra Spears,AN, MS Tissues: A DIGIT AMPUTATION (RIGHT DISTAL PHALANX) B DIGIT AMPUTATION (RIGHT PROXIMAL PHALANX) Procedures: HE/3, Gross/Micro L4/2, Decalcification/2 Patient: RodriguezJassi SR [id number] (Continued) Specimen: [id number] Received: 09/23/24 (Continued) Signed (signature on file) Mingo Mejia MD 09/26/24 1340 Specimen: [id number] Received: 09/23/24 Status: LORENA Childs Num: [id number] Spec Type: Surgical Subm Dr: Mayra Spears,DPM, MS Tissues: A DIGIT AMPUTATION (RIGHT DISTAL PHALANX) B DIGIT AMPUTATION (RIGHT PROXIMAL PHALANX) Procedures: HE/3, Gross/Micro L4/2, Decalcification/2 Patient: Jassi Rodriguez [id number] (Continued) Specimen: [id number] Received: 09/23/24 (Continued) Gross Description Part A [...] cm from the proximal skin margin. A outbound telemarketing representative section of the indurated area and [...] is submitted in B1 after decalcification. (1, ss, S26-139 B) Microscopic Description Microscopic examination is performed CPT Codes 87825f0 47510d2 Specimen: [id number] Received: (more content not included)... Normal [facility] Laboratory - Chemistry and C hemistry - challengeon 09-23-2024 Albumin [Mass/Vol] 1.8 g/dL Low 3.4-5.0 [facility] ALP [Catalytic activity/Vol] 76 U/L 46-116 [facility] ALT [Catalytic activity/Vol] 15 U/L Low 16-63 [facility] AST [Catalytic activity/Vol] 22 U/L 15-37 [facility] Bilirubin [Mass/Vol] 0.3 mg/dL 0.2-1.0 [facility] Calcium [Mass/Vol] 9.0 mg/dL 8.5-10.1 [facility] Chloride [Moles/Vol] 103 mmol/L 98-107 [facility] CO2 [Moles/Vol] 26.0 mmol/L 21.0-32.0 [facility] Creatinine [Mass/Vol] 0.94 mg/dL 0.70-1.30 [facility] GFR/1.73 sq M.predicted MDRD (S/P/Bld) [Vol rate/Area] mL/min/{1.73_m2} >=60 mL/min/1.73m 2 [facility] Glucose [Mass/Vol] 124 mg/dL High 74-106 [facility] Potassium [Moles/Vol] 4.1 mmol/L 3.5-5.1 [facility] Protein [Mass/Vol] 7.4 g/dL 6.4-8.2 [facility] Sodium [Moles/Vol] 139 mmol/L 136-145 [facility] Urea nitrogen [Mass/Vol] 22.0 mg/dL High 7.0-18.0 [facility] Urea nitrogen/Creatinine [Mass ratio] 23.4 mg/mg [facility] Laboratory - Hematology and Cell countson 09-23-2024 Immature granulocytes/100 WBC (Bld) 0.3 % 0.0-0.5 [facility] Leukocytes [#/volume] correc markie for nucleated erythrocytes in Blood by Automated counon 09-23-2024 WBC corrected for nucl RBC Auto (Bld) [#/Vol] Leukocytes [#/volume] corrected for nucleated erythrocytes in Blood by Automated coun 4.0-11.0 [facility] WBC corrected for nucl RBC Auto (Bld) [#/Vol] 9.1 10 3/uL 4.0-11.0 [facility] Lymphocytes Auto (Bld) [#/Vo l]on 09-23-2024 Lymphocytes (Bld) [#/Vol] Lymphocytes [#/volume] in Blood by Automated count 1.2-3.8 [facility] Lymphocytes (Bld) [#/Vol] 1.6 10 3/uL 1.2-3.8 [facility] Lymphocytes/100 WBC Auto (Bl d)on 09-23-2024 Lymphocytes/100 WBC (Bld) Lymphocytes/100 leukocytes in Blood by Automated count Low 20.5-60.0 [facility] Lymphocytes/100 WBC (Bld) 17.6 % Low 20.5-60.0 [facility] MCH Auto (RBC) [Entitic mass ]on 09-23-2024 MCH (RBC) [Entitic mass] MCH [Entitic mass] by Automated count 25.9-34.0 [facility] MCH (RBC) [Entitic mass] 30.7 pg 25.9-34.0 [facility] MCHC Auto (RBC) [Mass/Vol]on 09-23-2024 MCHC (RBC) [Mass/Vol] MCHC [Mass/volume] by Automated count 29.9-35.2 [facility] MCHC (RBC) [Mass/Vol] 34.3 g/dL 29.9-35.2 [facility] MCV Auto (RBC) [Entitic vol] on 09-23-2024 MCV (RBC) [Entitic vol] MCV [Entitic volume] by Automated count 80.0-94.0 [facility] MCV (RBC) [Entitic vol] 89.7 fL 80.0-94.0 [facility] Monocytes Auto (Bld) [#/Vol] on 09-23-2024 Monocytes (Bld) [#/Vol] Automated blood monocyte count High 0.3-0.8 [facility] Monocytes (Bld) [#/Vol] 1.4 10 3/uL High 0.3-0.8 [facility] Monocytes/100 WBC Auto (Bld) on 09-23-2024 Monocytes/100 WBC (Bld) Automated monocyte % High 1.7-12.0 [facility] Monocytes/100 WBC (Bld) 15.6 % High 1.7-12.0 [facility] Neutrophils Auto (Bld) [#/Vo l]on 09-23-2024 Neutrophils (Bld) [#/Vol] Neutrophils [#/volume] in Blood by Automated count 1.4-6.5 [facility] Neutrophils (Bld) [#/Vol] 6.0 10 3/uL 1.4-6.5 [facility] Neutrophils/100 WBC Auto (Bl d)on 09-23-2024 Neutrophils/100 WBC (Bld) Automated neutrophil % 43.0-75.0 [facility] Neutrophils/100 WBC (Bld) 65.6 % 43.0-75.0 [facility] No Panel Informationon 05-20 -2025 C-Reactive Protein, Quantitative 3.19 mg/dL High <=0.50 [facility] Eosinophils # (Auto) 0.0 10 3/uL 0.0-0.7 [facility] Immature Granulocyte # (Auto) 0.03 10 3/uL 0.00-0.03 [facility] Platelet mean volume Auto (B ld) [Entitic vol]on 09-23-2024 Platelet mean volume (Bld) [Entitic vol] Platelet mean volume [Entitic volume] in Blood by Automated count 9.5-13.5 [facility] Platelet mean volume (Bld) [Entitic vol] 9.5 fL 9.5-13.5 [facility] Platelets Auto (Bld) [#/Vol] on 09-23-2024 Platelets (Bld) [#/Vol] Platelets [#/volume] in Blood by Automated count 150-450 [facility] Platelets (Bld) [#/Vol] 339 10 3/uL 150-450 [facility] RBC Auto (Bld) [#/Vol]on RBC (Bld) [#/Vol] Erythrocytes [#/volume] in Blood by Automated count Low 4.70-6.10 [facility] RBC (Bld) [#/Vol] 3.87 10 6/uL Low 4.70-6.10 [facility] Serum or plasma albumin/glob ulin mass ratioon 09-23-2024 Albumin/Globulin [Mass ratio] Serum or plasma albumin/globulin mass ratio [facility] Albumin/Globulin [Mass ratio] 0.3 {ratio} [facility] Serum or plasma anion gap de terminationon 09-23-2024 Anion gap [Moles/Vol] Serum or plasma anion gap determination [facility] Anion gap [Moles/Vol] 14.1 mmol/L [facility] Basophils Auto (Bld) [#/Vol] on 09-22-2024 Basophils (Bld) [#/Vol] Automated basophil count 0.0-0.1 [facility] Basophils (Bld) [#/Vol] 0.1 10 3/uL 0.0-0.1 [facility] Basophils/100 WBC Auto (Bld) on 09-22-2024 Basophils/100 WBC (Bld) Automated basophil % 0.2-2.0 [facility] Basophils/100 WBC (Bld) 0.6 % 0.2-2.0 [facility] Eosinophils/100 WBC Auto (Bl d)on 09-22-2024 Eosinophils/100 WBC (Bld) Automated eosinophil % Low 0.9-7.0 [facility] Eosinophils/100 WBC (Bld) 0.2 % Low 0.9-7.0 [facility] Erythrocyte distribution wid th Auto (RBC) [Ratio]on 09-22-2024 Erythrocyte distribution width (RBC) [Ratio] Erythrocyte distribution width [Ratio] by Automated count 11.0-15.0 [facility] Erythrocyte distribution width (RBC) [Ratio] 11.1 % 11.0-15.0 [facility] Estimated glomerular filtrat ion rate (GFR) non- Americanon 09-22-2024 GFR/1.73 sq M.predicted among non-blacks MDRD (S/P/Bld) [Vol rate/Area] Estimated glomerular filtration rate (GFR) non- >=60 mL/min/1.73m 2 [facility] GFR/1.73 sq M.predicted among non-blacks MDRD (S/P/Bld) [Vol rate/Area] mL/min/{1.73_m2} >=60 mL/min/1.73m 2 [facility] Globulin Calc (S) [Mass/Vol] on 09-22-2024 Globulin (S) [Mass/Vol] Serum globulin measurement by calculation (mass/volume) [facility] Globulin (S) [Mass/Vol] 5.4 g/dL [facility] Hematocrit Auto (Bld) [Volum e fraction]on 09-22-2024 Hematocrit (Bld) [Volume fraction] Hematocrit [Volume Fraction] of Blood by Automated count Low 42.0-54.0 [facility] Hematocrit (Bld) [Volume fraction] 33.8 % Low 42.0-54.0 [facility] Hemoglobin [Mass/volume] in Bloodon 09-22-2024 Hemoglobin (Bld) [Mass/Vol] Hemoglobin [Mass/volume] in Blood Low 14.0-18.0 [facility] Hemoglobin (Bld) [Mass/Vol] 11.8 g/dL Low 14.0-18.0 [facility] Laboratory - Chemistry and C hemistry - challengeon 09-22-2024 Albumin [Mass/Vol] 1.9 g/dL Low 3.4-5.0 [facility] ALP [Catalytic activity/Vol] 74 U/L 46-116 [facility] ALT [Catalytic activity/Vol] 15 U/L Low 16-63 [facility] AST [Catalytic activity/Vol] 20 U/L 15-37 [facility] Bilirubin [Mass/Vol] 0.4 mg/dL 0.2-1.0 [facility] Calcium [Mass/Vol] 8.7 mg/dL 8.5-10.1 [facility] Chloride [Moles/Vol] 102 mmol/L 98-107 [facility] CO2 [Moles/Vol] 23.7 mmol/L 21.0-32.0 [facility] Creatinine [Mass/Vol] 0.99 mg/dL 0.70-1.30 [facility] GFR/1.73 sq M.predicted MDRD (S/P/Bld) [Vol rate/Area] mL/min/{1.73_m2} >=60 mL/min/1.73m 2 [facility] Glucose [Mass/Vol] 87 mg/dL 74-106 [facility] Potassium [Moles/Vol] 4.4 mmol/L 3.5-5.1 [facility] Protein [Mass/Vol] 7.3 g/dL 6.4-8.2 [facility] Sodium [Moles/Vol] 137 mmol/L 136-145 [facility] Urea nitrogen [Mass/Vol] 21.0 mg/dL High 7.0-18.0 [facility] Urea nitrogen/Creatinine [Mass ratio] 21.2 mg/mg [facility] Laboratory - Hematology and Cell countson 09-22-2024 Immature granulocytes/100 WBC (Bld) 0.4 % 0.0-0.5 [facility] Leukocytes [#/volume] correc markie for nucleated erythrocytes in Blood by Automated counon 09-22-2024 WBC corrected for nucl RBC Auto (Bld) [#/Vol] Leukocytes [#/volume] corrected for nucleated erythrocytes in Blood by Automated coun 4.0-11.0 [facility] WBC corrected for nucl RBC Auto (Bld) [#/Vol] 9.6 10 3/uL 4.0-11.0 [facility] Lymphocytes Auto (Bld) [#/Vo l]on 09-22-2024 Lymphocytes (Bld) [#/Vol] Lymphocytes [#/volume] in Blood by Automated count 1.2-3.8 [facility] Lymphocytes (Bld) [#/Vol] 1.7 10 3/uL 1.2-3.8 [facility] Lymphocytes/100 WBC Auto (Bl d)on 09-22-2024 Lymphocytes/100 WBC (Bld) Lymphocytes/100 leukocytes in Blood by Automated count Low 20.5-60.0 [facility] Lymphocytes/100 WBC (Bld) 17.7 % Low 20.5-60.0 [facility] MCH Auto (RBC) [Entitic mass ]on 09-22-2024 MCH (RBC) [Entitic mass] MCH [Entitic mass] by Automated count 25.9-34.0 [facility] MCH (RBC) [Entitic mass] 31.3 pg 25.9-34.0 [facility] MCHC Auto (RBC) [Mass/Vol]on 09-22-2024 MCHC (RBC) [Mass/Vol] MCHC [Mass/volume] by Automated count 29.9-35.2 [facility] MCHC (RBC) [Mass/Vol] 34.9 g/dL 29.9-35.2 [facility] MCV Auto (RBC) [Entitic vol] on 09-22-2024 MCV (RBC) [Entitic vol] MCV [Entitic volume] by Automated count 80.0-94.0 [facility] MCV (RBC) [Entitic vol] 89.7 fL 80.0-94.0 [facility] Monocytes Auto (Bld) [#/Vol] on 09-22-2024 Monocytes (Bld) [#/Vol] Automated blood monocyte count High 0.3-0.8 [facility] Monocytes (Bld) [#/Vol] 1.2 10 3/uL High 0.3-0.8 [facility] Monocytes/100 WBC Auto (Bld) on 09-22-2024 Monocytes/100 WBC (Bld) Automated monocyte % High 1.7-12.0 [facility] Monocytes/100 WBC (Bld) 12.8 % High 1.7-12.0 [facility] Neutrophils Auto (Bld) [#/Vo l]on 09-22-2024 Neutrophils (Bld) [#/Vol] Neutrophils [#/volume] in Blood by Automated count High 1.4-6.5 [facility] Neutrophils (Bld) [#/Vol] 6.6 10 3/uL High 1.4-6.5 [facility] Neutrophils/100 WBC Auto (Bl d)on 09-22-2024 Neutrophils/100 WBC (Bld) Automated neutrophil % 43.0-75.0 [facility] Neutrophils/100 WBC (Bld) 68.3 % 43.0-75.0 [facility] No Panel Informationon 09-22 Vancomycin Level Trough 18.3 ug/mL 5.0-20.0 [facility] C-Reactive Protein, Quantitative 4.29 mg/dL High <=0.50 [facility] Eosinophils # (Auto) 0.0 10 3/uL 0.0-0.7 [facility] Immature Granulocyte # (Auto) 0.04 10 3/uL High 0.00-0.03 [facility] Platelet mean volume Auto (B ld) [Entitic vol]on 09-22-2024 Platelet mean volume (Bld) [Entitic vol] Platelet mean volume [Entitic volume] in Blood by Automated count 9.5-13.5 [facility] Platelet mean volume (Bld) [Entitic vol] 9.6 fL 9.5-13.5 [facility] Platelets Auto (Bld) [#/Vol] on 09-22-2024 Platelets (Bld) [#/Vol] Platelets [#/volume] in Blood by Automated count 150-450 [facility] Platelets (Bld) [#/Vol] 334 10 3/uL 150-450 [facility] RBC Auto (Bld) [#/Vol]on RBC (Bld) [#/Vol] Erythrocytes [#/volume] in Blood by Automated count Low 4.70-6.10 [facility] RBC (Bld) [#/Vol] 3.77 10 6/uL Low 4.70-6.10 [facility] Serum or plasma albumin/glob ulin mass ratioon 09-22-2024 Albumin/Globulin [Mass ratio] Serum or plasma albumin/globulin mass ratio [facility] Albumin/Globulin [Mass ratio] 0.4 {ratio} [facility] Serum or plasma anion gap de terminationon 09-22-2024 Anion gap [Moles/Vol] Serum or plasma anion gap determination [facility] Anion gap [Moles/Vol] 15.7 mmol/L [facility] Basophils Auto (Bld) [#/Vol] on 09-21-2024 Basophils (Bld) [#/Vol] Automated basophil count 0.0-0.1 [facility] Basophils (Bld) [#/Vol] 0.1 10 3/uL 0.0-0.1 [facility] Basophils/100 WBC Auto (Bld) on 09-21-2024 Basophils/100 WBC (Bld) Automated basophil % 0.2-2.0 [facility] Basophils/100 WBC (Bld) 0.6 % 0.2-2.0 [facility] Eosinophils/100 WBC Auto (Bl d)on 09-21-2024 Eosinophils/100 WBC (Bld) Automated eosinophil % Low 0.9-7.0 [facility] Eosinophils/100 WBC (Bld) 0.2 % Low 0.9-7.0 [facility] Erythrocyte distribution wid th Auto (RBC) [Ratio]on 09-21-2024 Erythrocyte distribution width (RBC) [Ratio] Erythrocyte distribution width [Ratio] by Automated count 11.0-15.0 [facility] Erythrocyte distribution width (RBC) [Ratio] 11.3 % 11.0-15.0 [facility] Estimated glomerular filtrat ion rate (GFR) non- Americanon 09-21-2024 GFR/1.73 sq M.predicted among non-blacks MDRD (S/P/Bld) [Vol rate/Area] Estimated glomerular filtration rate (GFR) non- >=60 mL/min/1.73m 2 [facility] GFR/1.73 sq M.predicted among non-blacks MDRD (S/P/Bld) [Vol rate/Area] mL/min/{1.73_m2} >=60 mL/min/1.73m 2 [facility] Globulin Calc (S) [Mass/Vol] on 09-21-2024 Globulin (S) [Mass/Vol] Serum globulin measurement by calculation (mass/volume) [facility] Globulin (S) [Mass/Vol] 5.6 g/dL [facility] Hematocrit Auto (Bld) [Volum e fraction]on 09-21-2024 Hematocrit (Bld) [Volume fraction] Hematocrit [Volume Fraction] of Blood by Automated count Low 42.0-54.0 [facility] Hematocrit (Bld) [Volume fraction] 34.2 % Low 42.0-54.0 [facility] Hemoglobin [Mass/volume] in Bloodon 09-21-2024 Hemoglobin (Bld) [Mass/Vol] Hemoglobin [Mass/volume] in Blood Low 14.0-18.0 [facility] Hemoglobin (Bld) [Mass/Vol] 11.6 g/dL Low 14.0-18.0 [facility] Laboratory - Chemistry and C hemistry - challengeon 09-21-2024 Albumin [Mass/Vol] 1.9 g/dL Low 3.4-5.0 [facility] ALP [Catalytic activity/Vol] 79 U/L 46-116 [facility] ALT [Catalytic activity/Vol] 16 U/L 16-63 [facility] AST [Catalytic activity/Vol] 21 U/L 15-37 [facility] Bilirubin [Mass/Vol] 0.5 mg/dL 0.2-1.0 [facility] Calcium [Mass/Vol] 8.8 mg/dL 8.5-10.1 [facility] Chloride [Moles/Vol] 103 mmol/L 98-107 [facility] CO2 [Moles/Vol] 24.5 mmol/L 21.0-32.0 [facility] Creatinine [Mass/Vol] 1.18 mg/dL 0.70-1.30 [facility] GFR/1.73 sq M.predicted MDRD (S/P/Bld) [Vol rate/Area] mL/min/{1.73_m2} >=60 mL/min/1.73m 2 [facility] Glucose [Mass/Vol] 106 mg/dL 74-106 [facility] Potassium [Moles/Vol] 4.6 mmol/L 3.5-5.1 [facility] Protein [Mass/Vol] 7.5 g/dL 6.4-8.2 [facility] Sodium [Moles/Vol] 137 mmol/L 136-145 [facility] Urea nitrogen [Mass/Vol] 24.0 mg/dL High 7.0-18.0 [facility] Urea nitrogen/Creatinine [Mass ratio] 20.3 mg/mg [facility] Laboratory - Hematology and Cell countson 09-21-2024 Immature granulocytes/100 WBC (Bld) 0.5 % 0.0-0.5 [facility] Leukocytes [#/volume] correc markie for nucleated erythrocytes in Blood by Automated counon 09-21-2024 WBC corrected for nucl RBC Auto (Bld) [#/Vol] Leukocytes [#/volume] corrected for nucleated erythrocytes in Blood by Automated coun [facility] 4.0-11.0 [facility] WBC corrected for nucl RBC Auto (Bld) [#/Vol] 11.9 10 3/uL High 4.0-11.0 [facility] Lymphocytes Auto (Bld) [#/Vo l]on 09-21-2024 Lymphocytes (Bld) [#/Vol] Lymphocytes [#/volume] in Blood by Automated count 1.2-3.8 [facility] Lymphocytes (Bld) [#/Vol] 1.9 10 3/uL 1.2-3.8 [facility] Lymphocytes/100 WBC Auto (Bl d)on 09-21-2024 Lymphocytes/100 WBC (Bld) Lymphocytes/100 leukocytes in Blood by Automated count Low 20.5-60.0 [facility] Lymphocytes/100 WBC (Bld) 15.9 % Low 20.5-60.0 [facility] MCH Auto (RBC) [Entitic mass ]on 09-21-2024 MCH (RBC) [Entitic mass] MCH [Entitic mass] by Automated count 25.9-34.0 [facility] MCH (RBC) [Entitic mass] 30.8 pg 25.9-34.0 [facility] MCHC Auto (RBC) [Mass/Vol]on 09-21-2024 MCHC (RBC) [Mass/Vol] MCHC [Mass/volume] by Automated count 29.9-35.2 [facility] MCHC (RBC) [Mass/Vol] 33.9 g/dL 29.9-35.2 [facility] MCV Auto (RBC) [Entitic vol] on 09-21-2024 MCV (RBC) [Entitic vol] MCV [Entitic volume] by Automated count 80.0-94.0 [facility] MCV (RBC) [Entitic vol] 90.7 fL 80.0-94.0 [facility] Monocytes Auto (Bld) [#/Vol] on 09-21-2024 Monocytes (Bld) [#/Vol] Automated blood monocyte count High 0.3-0.8 [facility] Monocytes (Bld) [#/Vol] 1.5 10 3/uL High 0.3-0.8 [facility] Monocytes/100 WBC Auto (Bld) on 09-21-2024 Monocytes/100 WBC (Bld) Automated monocyte % High 1.7-12.0 [facility] Monocytes/100 WBC (Bld) 12.6 % High 1.7-12.0 [facility] Neutrophils Auto (Bld) [#/Vo l]on 09-21-2024 Neutrophils (Bld) [#/Vol] Neutrophils [#/volume] in Blood by Automated count High 1.4-6.5 [facility] Neutrophils (Bld) [#/Vol] 8.4 10 3/uL High 1.4-6.5 [facility] Neutrophils/100 WBC Auto (Bl d)on 09-21-2024 Neutrophils/100 WBC (Bld) Automated neutrophil % 43.0-75.0 [facility] Neutrophils/100 WBC (Bld) 70.2 % 43.0-75.0 [facility] No Panel Informationon 09-21 Eosinophils # (Auto) 0.0 10 3/uL 0.0-0.7 [facility] Immature Granulocyte # (Auto) 0.06 10 3/uL High 0.00-0.03 [facility] Platelet mean volume Auto (B ld) [Entitic vol]on 09-21-2024 Platelet mean volume (Bld) [Entitic vol] Platelet mean volume [Entitic volume] in Blood by Automated count 9.5-13.5 [facility] Platelet mean volume (Bld) [Entitic vol] 9.7 fL 9.5-13.5 [facility] Platelets Auto (Bld) [#/Vol] on 09-21-2024 Platelets (Bld) [#/Vol] Platelets [#/volume] in Blood by Automated count 150-450 [facility] Platelets (Bld) [#/Vol] 314 10 3/uL 150-450 [facility] RBC Auto (Bld) [#/Vol]on RBC (Bld) [#/Vol] Erythrocytes [#/volume] in Blood by Automated count Low 4.70-6.10 [facility] RBC (Bld) [#/Vol] 3.77 10 6/uL Low 4.70-6.10 [facility] Serum or plasma albumin/glob ulin mass ratioon 09-21-2024 Albumin/Globulin [Mass ratio] Serum or plasma albumin/globulin mass ratio [facility] Albumin/Globulin [Mass ratio] 0.3 {ratio} [facility] Serum or plasma anion gap de terminationon 09-21-2024 Anion gap [Moles/Vol] Serum or plasma anion gap determination [facility] Anion gap [Moles/Vol] 14.1 mmol/L [facility] Basophils Auto (Bld) [#/Vol] on 09-20-2024 Basophils (Bld) [#/Vol] Automated basophil count 0.0-0.1 [facility] Basophils (Bld) [#/Vol] 0.1 10 3/uL 0.0-0.1 [facility] Basophils/100 WBC Auto (Bld) on 09-20-2024 Basophils/100 WBC (Bld) Automated basophil % 0.2-2.0 [facility] Basophils/100 WBC (Bld) 0.8 % 0.2-2.0 [facility] Eosinophils/100 WBC Auto (Bl d)on 09-20-2024 Eosinophils/100 WBC (Bld) Automated eosinophil % Low 0.9-7.0 [facility] Eosinophils/100 WBC (Bld) 0.0 % Low 0.9-7.0 [facility] Erythrocyte distribution wid th Auto (RBC) [Ratio]on 09-20-2024 Erythrocyte distribution width (RBC) [Ratio] Erythrocyte distribution width [Ratio] by Automated count 11.0-15.0 [facility] Erythrocyte distribution width (RBC) [Ratio] 11.2 % 11.0-15.0 [facility] Estimated glomerular filtrat ion rate (GFR) non- Americanon 09-20-2024 GFR/1.73 sq M.predicted among non-blacks MDRD (S/P/Bld) [Vol rate/Area] Estimated glomerular filtration rate (GFR) non- Low >=60 mL/min/1.73m 2 [facility] GFR/1.73 sq M.predicted among non-blacks MDRD (S/P/Bld) [Vol rate/Area] 52 mL/min/{1.73_m2} Low >=60 mL/min/1.73m 2 [facility] Globulin Calc (S) [Mass/Vol] on 09-20-2024 Globulin (S) [Mass/Vol] Serum globulin measurement by calculation (mass/volume) [facility] Globulin (S) [Mass/Vol] 6.6 g/dL [facility] Hematocrit Auto (Bld) [Volum e fraction]on 09-20-2024 Hematocrit (Bld) [Volume fraction] Hematocrit [Volume Fraction] of Blood by Automated count Low 42.0-54.0 [facility] Hematocrit (Bld) [Volume fraction] 41.1 % Low 42.0-54.0 [facility] Hemoglobin [Mass/volume] in Bloodon 09-20-2024 Hemoglobin (Bld) [Mass/Vol] Hemoglobin [Mass/volume] in Blood 14.0-18.0 [facility] Hemoglobin (Bld) [Mass/Vol] 14.0 g/dL 14.0-18.0 [facility] Laboratory - Chemistry and C hemistry - challengeon 09-20-2024 Albumin [Mass/Vol] 2.4 g/dL Low 3.4-5.0 [facility] ALP [Catalytic activity/Vol] 101 U/L 46-116 [facility] ALT [Catalytic activity/Vol] 25 U/L 16-63 [facility] AST [Catalytic activity/Vol] 28 U/L 15-37 [facility] Bilirubin [Mass/Vol] 0.7 mg/dL 0.2-1.0 [facility] Calcium [Mass/Vol] 9.6 mg/dL 8.5-10.1 [facility] Chloride [Moles/Vol] 99 mmol/L 98-107 [facility] CO2 [Moles/Vol] 28.1 mmol/L 21.0-32.0 [facility] Creatinine [Mass/Vol] 1.37 mg/dL High 0.70-1.30 [facility] GFR/1.73 sq M.predicted MDRD (S/P/Bld) [Vol rate/Area] mL/min/{1.73_m2} >=60 mL/min/1.73m 2 [facility] Glucose [Mass/Vol] 130 mg/dL High 74-106 [facility] Potassium [Moles/Vol] 4.5 mmol/L 3.5-5.1 [facility] Protein [Mass/Vol] 9.0 g/dL High 6.4-8.2 [facility] Sodium [Moles/Vol] 132 mmol/L Low 136-145 [facility] Urea nitrogen [Mass/Vol] 18.0 mg/dL 7.0-18.0 [facility] Urea nitrogen/Creatinine [Mass ratio] 13.1 mg/mg [facility] Laboratory - Hematology and Cell countson 09-20-2024 ESR (Bld) [Velocity] mm/h High <=20 [facility] Immature granulocytes/100 WBC (Bld) 0.3 % 0.0-0.5 [facility] Leukocytes [#/volume] correc markie for nucleated erythrocytes in Blood by Automated counon 09-20-2024 WBC corrected for nucl RBC Auto (Bld) [#/Vol] Leukocytes [#/volume] corrected for nucleated erythrocytes in Blood by Automated coun High 4.0-11.0 [facility] WBC corrected for nucl RBC Auto (Bld) [#/Vol] 11.9 10 3/uL High 4.0-11.0 [facility] Lymphocytes Auto (Bld) [#/Vo l]on 09-20-2024 Lymphocytes (Bld) [#/Vol] Lymphocytes [#/volume] in Blood by Automated count 1.2-3.8 [facility] Lymphocytes (Bld) [#/Vol] 1.9 10 3/uL 1.2-3.8 [facility] Lymphocytes/100 WBC Auto (Bl d)on 09-20-2024 Lymphocytes/100 WBC (Bld) Lymphocytes/100 leukocytes in Blood by Automated count Low 20.5-60.0 [facility] Lymphocytes/100 WBC (Bld) 15.9 % Low 20.5-60.0 [facility] MCH Auto (RBC) [Entitic mass ]on 09-20-2024 MCH (RBC) [Entitic mass] MCH [Entitic mass] by Automated count 25.9-34.0 [facility] MCH (RBC) [Entitic mass] 30.8 pg 25.9-34.0 [facility] MCHC Auto (RBC) [Mass/Vol]on 09-20-2024 MCHC (RBC) [Mass/Vol] MCHC [Mass/volume] by Automated count 29.9-35.2 [facility] MCHC (RBC) [Mass/Vol] 34.1 g/dL 29.9-35.2 [facility] MCV Auto (RBC) [Entitic vol] on 09-20-2024 MCV (RBC) [Entitic vol] MCV [Entitic volume] by Automated count 80.0-94.0 [facility] MCV (RBC) [Entitic vol] 90.5 fL 80.0-94.0 [facility] Monocytes Auto (Bld) [#/Vol] on 09-20-2024 Monocytes (Bld) [#/Vol] Automated blood monocyte count High 0.3-0.8 [facility] Monocytes (Bld) [#/Vol] 1.4 10 3/uL High 0.3-0.8 [facility] Monocytes/100 WBC Auto (Bld) on 09-20-2024 Monocytes/100 WBC (Bld) Automated monocyte % High 1.7-12.0 [facility] Monocytes/100 WBC (Bld) 12.1 % High 1.7-12.0 [facility] Neutrophils Auto (Bld) [#/Vo l]on 09-20-2024 Neutrophils (Bld) [#/Vol] Neutrophils [#/volume] in Blood by Automated count High 1.4-6.5 [facility] Neutrophils (Bld) [#/Vol] 8.5 10 3/uL High 1.4-6.5 [facility] Neutrophils/100 WBC Auto (Bl d)on 09-20-2024 Neutrophils/100 WBC (Bld) Automated neutrophil % 43.0-75.0 [facility] Neutrophils/100 WBC (Bld) 70.9 % 43.0-75.0 [facility] No Panel Informationon 09-20 C-Reactive Protein, Quantitative 6.32 mg/dL High <=0.50 [facility] Eosinophils # (Auto) 0.0 10 3/uL 0.0-0.7 [facility] Immature Granulocyte # (Auto) 0.04 10 3/uL High 0.00-0.03 [facility] Platelet mean volume Auto (B ld) [Entitic vol]on 09-20-2024 Platelet mean volume (Bld) [Entitic vol] Platelet mean volume [Entitic volume] in Blood by Automated count 9.5-13.5 [facility] Platelet mean volume (Bld) [Entitic vol] 9.5 fL 9.5-13.5 [facility] Platelets Auto (Bld) [#/Vol] on 09-20-2024 Platelets (Bld) [#/Vol] Platelets [#/volume] in Blood by Automated count 150-450 [facility] Platelets (Bld) [#/Vol] 401 10 3/uL 150-450 [facility] RBC Auto (Bld) [#/Vol]on RBC (Bld) [#/Vol] Erythrocytes [#/volume] in Blood by Automated count Low 4.70-6.10 [facility] RBC (Bld) [#/Vol] 4.54 10 6/uL Low 4.70-6.10 [facility] Serum or plasma albumin/glob ulin mass ratioon 09-20-2024 Albumin/Globulin [Mass ratio] Serum or plasma albumin/globulin mass ratio [facility] Albumin/Globulin [Mass ratio] 0.4 {ratio} [facility] Serum or plasma anion gap de terminationon 09-20-2024 Anion gap [Moles/Vol] Serum or plasma anion gap determination [facility] Anion gap [Moles/Vol] 9.4 mmol/L [facility] Creatinine [Mass/volume] in UrineOrdered By: Yolette Pierre on 06-18-2024 Creatinine (U) [Mass/Vol] Creatinine [Mass/volume] in Urine [facility] Comment on above: No reference range e stablished MicroAlb Creat Ratio,Uon Albumin DL <= 20 mg/L (U) [Mass/Vol] mg/dL High 0.0-1.8 [facility] Comment on above: Performed By: #### U RMACRERAT #### [facility] [address] [place] [address] Creatinine, Urine (Random) 123.00 mg/dL Normal [facility] Comment on above: Result Comment: No r eference range established Performed By: #### U RMACRERAT #### [facility] [address] Microalbumin/Creatinin e Ratio Not performed Normal 0.0-30.0 [facility] Comment on above: Result Comment: PERF ORMED BY: [place] [address] [employer]CH[employer] JAMIL BONILLA M.D. Performed By: #### U RMACRERAT #### [facility] [address] Microalbumin [Mass/volume] i n UrineOrdered By: Yolette Pierre on 06-18-2024 Albumin DL <= 20 mg/L (U) [Mass/Vol] Microalbumin [Mass/volume] in Urine High 0.0-1.8 [facility] Urine microalbumin/creatinin e mass ratioOrdered By: Yolette Pierre on 06-18-2024 Albumin/Creatinine DL <= 20 mg/L (U) [Mass ratio] Urine microalbumin/creatin ine mass ratio [facility] Comment on above: Test not performed HbA1c HPLC (Bld) [Mass fract ion]on 04-23-2024 HbA1c (Bld) [Mass fraction] Hemoglobin A1c/Hemoglobin.total in Blood by HPLC [facility] No Panel Informationon 04-23 Bedside Glucose [address] [facility] [address] ABDOMEN WO CONTon 024 CT [...] Camarena MD on 04/11/2024 11:15 AM Normal [facility] CT CHEST WO CONTon CT CHEST WO [...] Guido MD on 04/11/2024 11:15 AM Normal [facility] HbA1c HPLC (Bld) [Mass fract ion]on 09-10-2023 HbA1c (Bld) [Mass fraction] 6.4 % [facility] No Panel Informationon 09-09 Bedside Glucose 126 [facility] A1C HEMOGLOBINon 06-05-2023 HbA1c (Bld) [Mass fraction] 6.9 % [employer] Other Glucose - FINGER STICKon Glucose [Mass/Vol] 132 mg/dL [employer] Other HbA1c (Bld) [Mass fraction]o n 06-05-2023 A1C HEMOGLOBIN [employer] Other A1C HEMOGLOBINon 02-27-2023 HbA1c (Bld) [Mass fraction] 6.4 % [employer] Other Creatinine [Mass/volume] in UrineOrdered By: Yolette Pierre on 02-27-2023 Creatinine (U) [Mass/Vol] 89.0 mg/dL 14.0-26.0 [facility] Glucose - FINGER STICKon Glucose [Mass/Vol] 132 mg/dL [employer] Other HbA1c (Bld) [Mass fraction]o n 02-27-2023 A1C HEMOGLOBIN [employer] Other [employer] Creat Ratio,Uon Creatinine (U) [Mass/Vol] 89.3984865 mg/dL High 14.0-26.0 mg/dL [employer] Other [employer] Creat Ratio,UOrdere d By: Yolette Pierre on 02-27-2023 Albumin DL <= 20 mg/L (U) [Mass/Vol] mg/dL 0.0-1.8 [facility] Albumin/Creatinine DL <= 20 mg/L (U) [Mass ratio] TNP [facility] Comment on above: Test not performed Glucose - FINGER STICKon Glucose [Mass/Vol] 160 mg/dL [employer] Other A1C HEMOGLOBINon 10-03-2022 HbA1c (Bld) [Mass fraction] 7.0 % [employer] Other Glucose - FINGER STICKon Glucose [Mass/Vol] 88 mg/dL [place] Other HbA1c (Bld) [Mass fraction]o n 10-03-2022 A1C HEMOGLOBIN [employer] Other Glucose - FINGER ST[employer]on Glucose [Mass/Vol] 137 mg/dL [place] [employer] Other A1C HEMOGLOBINon 05-05-2022 HbA1c (Bld) [Mass fraction] 7.5 % [place] [employer] Other Glucose - FINGER STICKon Glucose [Mass/Vol] 199 mg/dL [place] [employer] Other HbA1c (Bld) [Mass fraction]o n 05-05-2022 A1C HEMOGLOBIN [employer] Other A1C HEMOGLOBINon 02-03-2022 HbA1c (Bld) [Mass fraction] 7.7 % [employer] Other Glucose - FINGER STICKon Glucose - FINGER STICK No rt [employer] Other A1C HEMOGLOBINon 11-01-2021 HbA1c (Bld) [Mass fraction] 8.1 % [place] [employer] Other Glucose - FINGER STICKon Glucose [Mass/Vol] 232 mg/dL [place] [employer] Other HbA1c (Bld) [Mass fraction]o n 11-01-2021 A1C HEMOGLOBIN [employer] Other A1C HEMOGLOBINon 07-20-2021 HbA1c (Bld) [Mass fraction] 8.0 % [employer] Other Glucose - FINGER STICKon Glucose [Mass/Vol] 159 mg/dL [place] [employer] Other HbA1c (Bld) [Mass fraction]o n 07-20-2021 A1C HEMOGLOBIN [employer] Other ACETONE SERUMon 04-08-2020 ACETONE SMALL Normal NEGATIVE [facility] Comment on above: Performed By: #### A CETON ####[facility] [id number] [place], [place] [address]Pirlcm Brii BNPon 04-08-2020 Natriuretic peptide B (Bld) [Mass/Vol] 72.0 pg/mL Normal <=900.0 [facility] Comment on above: Performed By: #### C MP, TSH, TROP, BNP #### [facility] [address] [place], [place] [address] Kisha Brii CBC AUTO DIFFon 04-08-2020 Basophils (Bld) [#/Vol] 0.0 103/ul Normal 0.0-0.1 [facility] Comment on above: Performed By: #### C BC #### [facility] [address] [place], [place] [id number] Kishaunruly Costelloen Basophils/100 WBC (Bld) 0.4 % Normal 0.2-2.0 [facility] Comment on above: Performed By: #### C BC #### [facility] [address] [place] [id number] Kisha Brii Eosinophils (Bld) [#/Vol] 0.0 103/ul Normal 0.0-0.7 [facility] Comment on above: Performed By: #### C BC #### [facility] [address] [place], [place] [id number] Kisha Brii Eosinophils/100 WBC (Bld) 0.0 % Critically low 0.9-7.0 [facility] Comment on above: Performed By: #### C BC #### [facility] [address] [place] [address] Kisha Brii Erythrocyte distribution width (RBC) [Ratio] 13.3 % Normal 11.0-15.0 [facility] Comment on above: Performed By: #### C BC #### [facility] [address] [place], [place] [id number] Kisha Brii Hematocrit (Bld) [Volume fraction] 45.3 % Normal 42.0-54.0 [facility] Comment on above: Performed By: #### C BC #### [facility] [address] [place], [place] [phone] Kisha Brii Hemoglobin (Bld) [Mass/Vol] 15.9 g/dL Normal 14.0-18.0 [facility] Comment on above: Performed By: #### C BC #### [facility] [address] [place], [place] [phone] Kisha Brii IG # 0.03 10e3/ul Normal 0.00-0.03 [facility] Comment on above: Performed By: #### C BC #### [facility] [address] [place] [address] Kisha Brii IG % 0.6 % Critically high 0.0-0.5 [facility] Comment on above: Performed By: #### C BC #### [facility] [address] [place] [address] Kisha Brii Lymphocytes (Bld) [#/Vol] 1.8 103/ul Normal 1.2-3.8 [facility] Comment on above: Performed By: #### C BC #### [facility] [address] [place], [place] [phone] Kisha Brii Lymphocytes/100 WBC (Bld) 37.3 % Normal 20.5-60.0 [facility] Comment on above: Performed By: #### C BC #### [facility] [address] [place], [place] [phone] Kisha Brii MANUAL DIFF REQ NO Normal [facility] Comment on above: Performed By: #### C BC #### [facility] [address] [place], [place] [phone] Kisha Brii MCH (RBC) [Entitic mass] 31.4 pg Normal 25.9-34.0 [facility] Comment on above: Performed By: #### C BC #### [facility] [address] [place] [address] Kisha Brii MCHC (RBC) [Mass/Vol] 35.1 g/dL Normal 29.9-35.2 [facility] Comment on above: Performed By: #### C BC #### [facility] [address] [place], [place] [address] Kisha Brii MCV (RBC) [Entitic vol] 89.3 fL Normal 80.0-94.0 [facility] Comment on above: Performed By: #### C BC #### [facility] [address] [place], [place] [address] Kisha Brii Monocytes (Bld) [#/Vol] 0.7 103/ul Normal 0.3-0.8 [facility] Comment on above: Performed By: #### C BC #### [facility] [address] [place], [place] [address] Kisha Brii Monocytes/100 WBC (Bld) 14.5 % Critically high 1.7-12.0 [facility] Comment on above: Performed By: #### C BC #### [facility] [address] [place], [place] [address] Kisha Brii Neutrophils (Bld) [#/Vol] 2.3 103/ul Normal 1.4-6.5 [facility] Comment on above: Performed By: #### C BC #### [facility] [address] [place] [address] Kisha Brii Neutrophils/100 WBC (Bld) 47.2 % Normal 43.0-75.0 [facility] Comment on above: Performed By: #### C BC #### [facility] [address] [place] [address] Kisha Brii Platelet mean volume (Bld) [Entitic vol] 11.7 fL Normal 9.5-13.5 [facility] Comment on above: Performed By: #### C BC #### [facility] [address] [place], [place] [address] Kisha Brii Platelets (Bld) [#/Vol] 157 103/ul Normal 150-450 [facility] Comment on above: Performed By: #### C BC #### [facility] [address] [place], [place] [address] Kisha Brii RBC (Bld) [#/Vol] 5.07 106/ul Normal 4.70-6.10 [facility] Comment on above: Performed By: #### C BC #### [facility] [address] [place], [place] [address] Kisha Teresa WBC (Bld) [#/Vol] 4.9 103/ul Normal 4.0-11.0 [facility] Comment on above: Performed By: #### C BC #### [facility] [address] [place], [place] [address] Kisha Teresa CTA CHEST WO W CONon [...] NORY WAN Date: 2020-04-08 12:41 Normal [facility] D-DIMERon 04-08-2020 D-DIMER COMMENTS SEE BELOW Normal [facility] [...] Performed By: #### D DIM, PTT, PT ####[facility] [id number] [place], [place] [address]Aycopt Karen Fibrin D-dimer FEU IA (Bld) [Mass/Vol] 1.16 ug/mL Critically high 0.19-0.50 [facility] Comment on above: Result Comment: test repeated critcal value verified Performed By: #### D DIM, PTT, PT ####[facility] [address] [place], [place] [address]Xhlwuo Brii PH VENOUS BLOODon 04-08-2020 PCO2 VENOUS 46.4 mmHg Normal 40.0-52.0 [facility] Comment on above: Performed By: #### P HVEN #### [facility] [address] [place] [address] Kisha Brii pH VENOUS 7.37 Normal 7.33-7.43 [facility] Comment on above: Performed By: #### P HVEN #### [facility] [address] [place] [phone] Kisha Teresa PROF 14(COMP METB)on 020 Albumin [Mass/Vol] 2.4 g/dL Critically low 3.5-5.0 Th e [facility] Comment on above: Performed By: #### C MP, TSH, TROP, BNP #### [facility] [address] [place] [phone] Kisha Brii Albumin/Globulin [Mass ratio] 0.4 {ratio} Normal [facility] Comment on above: Performed By: #### C MP, TSH, TROP, BNP #### [facility] [address] [place] [place] [phone] Kisha Brii ALP [Catalytic activity/Vol] 68 U/L Normal 38-126 [facility] Comment on above: Performed By: #### C MP, TSH, TROP, BNP #### [facility] [address] [place] [phone] Kisha Brii ALT [Catalytic activity/Vol] 33 U/L Normal 21-72 [facility] Comment on above: Performed By: #### C MP, TSH, TROP, BNP #### [facility] [address] [place] [address] Kisha Brii Anion gap [Moles/Vol] 10.1 mmol/L Normal [facility] Comment on above: Performed By: #### C MP, TSH, TROP, BNP #### [facility] [address] [place] [address] Kisha Brii AST [Catalytic activity/Vol] 50 U/L Normal 17-59 [facility] Comment on above: Performed By: #### C MP, TSH, TROP, BNP #### [facility] [address] [place] [address] Kisha Brii Bilirubin Ql (U) 0.9 mg/dL Normal 0.2-1.3 [facility] Comment on above: Performed By: #### C MP, TSH, TROP, BNP #### [facility] [address] [place] [address] Kisha Brii Calcium [Mass/Vol] 8.7 mg/dL Normal 8.4-10.2 [facility] Comment on above: Performed By: #### C MP, TSH, TROP, BNP #### [facility] [address] [place] [address] Kisha Brii Chloride [Moles/Vol] 96 mmol/L Critically low 98-107 [facility] Comment on above: Performed By: #### C MP, TSH, TROP, BNP #### [facility] [address] [place] [address] Kisha Brii CO2 [Moles/Vol] 27.9 mmol/L Normal 22.0-30.0 [facility] Comment on above: Performed By: #### C MP, TSH, TROP, BNP #### [facility] [address] [place] [address] Kisha Brii Creatinine [Mass/Vol] 1.13 mg/dL Normal 0.66-1.25 [facility] Comment on above: Performed By: #### C MP, TSH, TROP, BNP #### [facility] [address] [place], [place] [phone] Kisha Brii EGFR-AF KENYAN >60 Normal >=60 [facility] Comment on above: Performed By: #### C MP, TSH, TROP, BNP #### [facility] [address] [place] [address] Kisha Brii EGFR-NON AF KENYAN >60 Normal >=60 [facility] Comment on above: Performed By: #### C MP, TSH, TROP, BNP #### [facility] [address] [place] [address] Kisha Brii Globulin (S) [Mass/Vol] 5.8 g/dL Normal [facility] Comment on above: Performed By: #### C MP, TSH, TROP, BNP #### [facility] [address] [place] [address] Kisha Brii Glucose [Mass/Vol] 263 mg/dL Critically high 74-106 [facility] Comment on above: Performed By: #### C MP, TSH, TROP, BNP #### [facility] [address] [place] [address] Kisha Brii Potassium [Moles/Vol] 3.0 mmol/L Critically low 3.4-5.0 [facility] Comment on above: Performed By: #### C MP, TSH, TROP, BNP #### [facility] [address] [place] [address] Kisha Brii Protein [Mass/Vol] 8.2 g/dL Normal 6.1-8.2 [facility] Comment on above: Performed By: #### C MP, TSH, TROP, BNP #### [facility] [address] [place] [address] Kisha Brii Sodium [Moles/Vol] 131 mmol/L Critically low 137-145 [facility] Comment on above: Performed By: #### C MP, TSH, TROP, BNP #### [facility] [address] [place] [address] Kisha Brii Urea nitrogen [Mass/Vol] 15.0 mg/dL Normal 9.0-20.0 [facility] Comment on above: Performed By: #### C MP, TSH, TROP, BNP #### [facility] [address] [place], [place] [address] Kisha Teresa Urea nitrogen/Creatinine [Mass ratio] 13.3 mg/mg Normal [facility] Comment on above: Performed By: #### C MP, TSH, TROP, BNP #### [facility] [address] [place], [place] [address] Kisha Teresa PROTIMEon 04-08-2020 INR Coag (PPP) [Relative time] 1.03 {INR} Normal [facility] Comment on above: Performed By: #### D DIM, PTT, PT ####[facility] [id number] [place], [place] [address]Ellazi Karen PT Coag (PPP) [Time] 10.9 s Normal 9.0-11.6 [facility] Comment on above: Performed By: #### D DIM, PTT, PT ####[facility] [id number] [place], [place] [address]Adqvac Karen PT Coag (PPP) [Time] SEE BELOW Normal [facility] Comment on above: Result Comment: PIO RED INR: 2.0 - 3.0 CONDITIONS NOT LISTED BELOW 2.5 - 3.5 FOR PROSTHETIC HEART VALVE REPLACEMENT 2.5 - 3.5 RECURRENT THROMBOSIS Performed By: #### D DIM, PTT, PT ####[facility] [id number] [place], [place] [address]KtjkprKisha Teresa PTTon 04-08-2020 aPTT Coag (Bld) [Time] PLEASE NOTE: NORM AL RANGE CHANGE 03-31-2015 DUE TO REAGENT LOT CHANGE Normal [facility] Comment on above: Performed By: #### D DIM, PTT, PT #### [facility] [address] [place], [place] [address] Kisha Teresa aPTT Coag (Bld) [Time] 26.7 s Normal 22.3-36.2 [facility] Comment on above: Performed By: #### D DIM, PTT, PT #### [facility] [address] [place], [place] [address] Kisha Teresa Rapid Covid-19 PCR (CVDRPD)o n 04-08-2020 [employer] LDT Info SEE BELOW Normal [facility] Comment on above: Result Comment: This test is not yet approved or cleared by the [place] Food and Drug Administration (FDA) . This test was developed by [employer], [facility]. The performance characteristics of this test were validated by The [facility]. The results are not intended to be used as the sole means for clinical diagnosis or patient management decisions. The [facility] is authorized under Clinical Laboratory Improvement Amendments (CLIA) to perform high-complexity testing. When diagnostic testing is negative, the possibility of a false negative should be considered in the context of a patients recent exposures and the presence of clinical signs and symptoms consistent with SARS-CoV-2. Performed By: #### C VDRPD #### [facility] [address] [place] [address] Kisha Brii SARS-CoV-2 DETECTED NOT DETECTED [facility] Comment on above: Result Comment: . Performed By: #### C VDRPD #### [facility] [address] [place] [address] Kisha Brii TROPONIN - Ion 04-08-2020 Troponin I.cardiac [Mass/Vol] SEE BELOW Normal [facility] Comment on above: Result Comment: <0.0 34 ng/ml NEGATIVE 0.034-0.119 INDETERMINATE 0.120 AMI CUT OFF Performed By: #### C MP, TSH, TROP, BNP #### [facility] [address] [place] [address] Troponin I.cardiac [Mass/Vol] ng/mL Normal <=0.034 [facility] Comment on above: Performed By: #### C MP, TSH, TROP, BNP #### [facility] [address] [place] [address] Kisha Teresa TSHon 04-08-2020 TSH Qn 2.851 uIU/mL Normal 0.470-4.680 [facility] Comment on above: Performed By: #### C MP, TSH, TROP, BNP #### [facility] [address] [place], [place] [address] TSH Qn SEE BELOW Normal [facility] Comment on above: Result Comment: <0.3 4 UIU/ml HYPERTHYROID 0.34-5.60 UIU/ml EUTHYROID >5.60 UIU/ml HYPOTHYROID Performed By: #### C MP, TSH, TROP, BNP #### [facility] [address] [place] [id number] Kisha Teresa XR CHEST 1 Von 04-08-2020 [...] NORY WAN Date: 2020-04-08 11:49 Normal [facility] Vital Signs Date Time Vital Sign Value Performing Clinician Faci lity 01-01-2025 09:05-0400 Body height 173.99 cm Yolette Segally [employer]FERENCE [employer]GANIZER Work Phone: [facility] 01-01-2025 09:05-0400 Body mass index (BMI) [Ratio] 24.8 kg/m2 Yolettegibran Segally CONFERENCE ORGANIZER Work Phone: [facility] 01-01-2025 09:05-0400 Body weight 75.2 kg Yolettegibran Segally CONFERENCE ORGANIZER Work Phone: [facility] 01-01-2025 09:05-0400 Diastolic blood pressure 90 mm[Hg] Yolette Scally CONFERENCE ORGANIZER Work Phone: [facility] 01-01-2025 09:05-0400 Heart rate 81 /min Yolette Scally [employer]FERENCE ORGANIZER Work Phone: [facility] 01-01-2025 09:05-0400 Respiratory rate 18 /min Yolettegibran Segally CONFERENCE ORGANIZER Work Phone: [facility] 01-01-2025 09:05-0400 SaO2% (BldA) [Mass fraction] 100 % Yolette Pierre [employer]FERENCE ORGANIZER Work Phone: [facility] 01-01-2025 09:05-0400 Systolic blood pressure 136 mm[Hg] Yolette Pierre CONFERENCE ORGANIZER Work Phone: [facility] 10-23-2024 10:55-0400 Body height 175.3 cm Jamil Culver MD Work Phone: [facility] 10-23-2024 10:55-0400 Body mass index (BMI) [Ratio] 23.63 kg/m2 Jamil Culver MD Work Phone: [facility] 10-23-2024 10:55-0400 Body weight 72.58 kg Jamil Culver MD Work Phone: [facility] 10-23-2024 10:55-0400 Diastolic blood pressure 76 mm[Hg] Jamil Culver MD Work Phone: [facility] 10-23-2024 10:55-0400 Heart rate 72 /min Jamil Culver MD Work Phone: [facility] 10-23-2024 10:55-0400 Systolic blood pressure 112 mm[Hg] Jamil Culver MD Work Phone: [facility] 10-09-2024 08:41-0400 Body height 173.99 cm Mayra Spears DPM Work Phone: [facility] 10-09-2024 08:41-0400 Body mass index (BMI) [Ratio] 24 kg/m2 Mayra Spears DPM Work Phone: [facility] 10-09-2024 08:41-0400 Body weight 72.6 kg Mayra Spears DPM Work Phone: [facility] 10-09-2024 08:41-0400 Diastolic blood pressure 66 mm[Hg] Mayra Spears DPM Work Phone: [facility] 10-09-2024 08:41-0400 Heart rate 88 /min Mayra Spears DPM Work Phone: [facility] 10-09-2024 08:41-0400 Respiratory rate 18 /min Mayra Spears DPM Work Phone: [facility] 10-09-2024 08:41-0400 SaO2% (BldA) [Mass fraction] 98 % Mayra Spears DPM Work Phone: [facility] 10-09-2024 08:41-0400 Systolic blood pressure 91 mm[Hg] Mayra Spears DPM Work Phone: [facility] 06-18-2024 08:41-0500 Body height 173.99 cm [facility] 06-18-2024 08:41-0500 Body mass index (BMI) [Ratio] 26.9 kg/m2 [facility] 06-18-2024 08:41-0500 Body weight 81.4 kg [facility] 06-18-2024 08:41-0500 Diastolic blood pressure 86 mm[Hg] [facility] 06-18-2024 08:41-0500 Heart rate 74 /min [facility] 06-18-2024 08:41-0500 Respiratory rate 18 /min [facility] 06-18-2024 08:41-0500 SaO2% (BldA) [Mass fraction] 99 % [facility] 06-18-2024 08:41-0500 Systolic blood pressure 138 mm[Hg] [facility] 04-23-2024 09:26-0500 Body height 173.99 cm [facility] 04-23-2024 09:26-0500 Body mass index (BMI) [Ratio] 26.8 kg/m2 [facility] 04-23-2024 09:26-0500 Body weight 81.27 kg [facility] 04-23-2024 09:26-0500 Diastolic blood pressure 98 mm[Hg] [facility] 04-23-2024 09:26-0500 Heart rate 83 /min [facility] 04-23-2024 09:26-0500 Respiratory rate 18 /min [facility] 04-23-2024 09:26-0500 SaO2% (BldA) [Mass fraction] 98 % [facility] 04-23-2024 09:26-0500 Systolic blood pressure 142 mm[Hg] [facility] 04-07-2024 08:17-0500 Body height 175.3 cm Christopher Edi DO Work Phone: [facility] 04-07-2024 08:17-0500 Body mass index (BMI) [Ratio] 26.11 kg/m2 Christopher Edi DO Work Phone: [facility] 04-07-2024 08:17-0500 Body weight 80.2 kg Christopher Edi DO Work Phone: [facility] 04-07-2024 08:17-0500 Diastolic blood pressure 88 mm[Hg] Christopher Edi DO Work Phone: [facility] 04-07-2024 08:17-0500 Heart rate 84 /min Christopher Edi DO Work Phone: [facility] 04-07-2024 08:17-0500 SaO2% (BldA) [Mass fraction] 98 % Christopher Edi DO Work Phone: [facility] 04-07-2024 08:17-0500 Systolic blood pressure 150 mm[Hg] Christopher Edi DO Work Phone: [facility] 01-21-2024 09:58-0400 Body height 173.99 cm [facility] 01-21-2024 09:58-0400 Body mass index (BMI) [Ratio] 25.5 kg/m2 [facility] 01-21-2024 09:58-0400 Body weight 77.28 kg [facility] 01-21-2024 09:58-0400 Diastolic blood pressure 91 mm[Hg] [facility] 01-21-2024 09:58-0400 Heart rate 82 /min [facility] 01-21-2024 09:58-0400 Respiratory rate 18 /min [facility] 01-21-2024 09:58-0400 SaO2% (BldA) [Mass fraction] 99 % [facility] 01-21-2024 09:58-0400 Systolic blood pressure 137 mm[Hg] [facility] 09-10-2023 08:17-0400 Body height 173.99 cm [facility] 09-10-2023 08:17-0400 Body mass index (BMI) [Ratio] 26.9 kg/m2 [facility] 09-10-2023 08:17-0400 Body weight 81.33 kg [facility] 09-10-2023 08:17-0400 Diastolic blood pressure 91 mm[Hg] [facility] 09-10-2023 08:17-0400 Heart rate 87 /min [facility] 09-10-2023 08:17-0400 Respiratory rate 18 /min [facility] 09-10-2023 08:17-0400 SaO2% (BldA) [Mass fraction] 99 % [facility] 09-10-2023 08:17-0400 Systolic blood pressure 134 mm[Hg] [facility] 06-05-2023 09:15-0500 Body height 173.99 cm Yolette Scally Other [facility] 06-05-2023 09:15-0500 Body mass index (BMI) [Ratio] 25.9 kg/m2 Yolette Scally Other [facility] Other 06-05-2023 09:15-0500 Body weight 78.43 kg Yolette Scally Other [facility] Other 06-05-2023 09:15-0500 Body weight 78.42 kg MD Annie Rodgers Work Phone: [facility] 06-05-2023 09:15-0500 Diastolic blood pressure 83 mm[Hg] Yolette Scally Other [facility] 06-05-2023 09:15-0500 Respiratory rate 18 /min Yolette Scally Other [employer] Other 06-05-2023 09:15-0500 SaO2% (BldA) [Mass fraction] 99 % Yolette Scally Other [employer] Other 06-05-2023 09:15-0500 Systolic blood pressure 119 mm[Hg] Yolette Scally Other [facility] 02-27-2023 10:45-0400 Body height 173.99 cm Yolette Scally Other [employer] Other 02-27-2023 10:45-0400 Body mass index (BMI) [Ratio] 26.07 kg/m2 Yolette Scally Other [employer] Other 02-27-2023 10:45-0400 Body weight 78.93 kg Yolette Scally Other [employer] Other 02-27-2023 10:45-0400 Diastolic blood pressure 86 mm[Hg] Yolette Scally Other [employer] Other 02-27-2023 10:45-0400 Respiratory rate 18 /min Yolette Scally Other [employer] Other 02-27-2023 10:45-0400 SaO2% (BldA) [Mass fraction] 99 % Yolette Scally Other [employer] Other 02-27-2023 10:45-0400 Systolic blood pressure 126 mm[Hg] Yolette Scally Other [employer] Other 12-19-2022 08:45-0400 Body height 173.99 cm Yolette Scally Other [employer] Other 12-19-2022 08:45-0400 Body mass index (BMI) [Ratio] 26.37 kg/m2 Yolette Scally Other [employer] Other 12-19-2022 08:45-0400 Body weight 79.83 kg Yolette Scally Other [employer] Other 12-19-2022 08:45-0400 Diastolic blood pressure 95 mm[Hg] Yolette Scally Other [employer] Other 12-19-2022 08:45-0400 Respiratory rate 18 /min Yolette Scally Other [employer] Other 12-19-2022 08:45-0400 SaO2% (BldA) [Mass fraction] 98 % Yolette Scally Other [employer] Other 12-19-2022 08:45-0400 Systolic blood pressure 149 mm[Hg] Yolette Scally Other [employer] Other 10-03-2022 08:15-0400 Body height 173.99 cm Yolette Scally Other [employer] Other 10-03-2022 08:15-0400 Body mass index (BMI) [Ratio] 27.3 kg/m2 Yolette Scally Other [employer] Other 10-03-2022 08:15-0400 Body weight 82.65 kg Yolette Scally Other [employer] Other 10-03-2022 08:15-0400 Diastolic blood pressure 90 mm[Hg] Yolette Scally Other [employer] Other 10-03-2022 08:15-0400 Respiratory rate 18 /min Yolette Scally Other [employer] Other 10-03-2022 08:15-0400 SaO2% (BldA) [Mass fraction] 99 % Yolette Scally Other [employer] Other 10-03-2022 08:15-0400 Systolic blood pressure 142 mm[Hg] Yolette Scally Other [employer] Other 07-24-2022 10:30-0400 Body height 173.99 cm Annie Rodgers Other [employer] Other 07-24-2022 10:30-0400 Body mass index (BMI) [Ratio] 27.72 kg/m2 Annie Rodgers Other [employer] Other 07-24-2022 10:30-0400 Body weight 83.92 kg Annie Rodgers Other [employer] Other 07-24-2022 10:30-0400 Diastolic blood pressure 80 mm[Hg] Annie Rodgers Other [employer] Other 07-24-2022 10:30-0400 SaO2% (BldA) [Mass fraction] 97 % Annie Rodgers Other [employer] Other 07-24-2022 10:30-0400 Systolic blood pressure 130 mm[Hg] Annie Rodgers Other [employer] Other 06-28-2022 09:00-0500 Body height 175.26 cm Yolette Scally Other [employer] Other 06-28-2022 09:00-0500 Body mass index (BMI) [Ratio] 27.98 kg/m2 Yolette Scally Other [employer] Other 06-28-2022 09:00-0500 Body weight 85.96 kg Yolette Scally Other [employer] Other 06-28-2022 09:00-0500 Diastolic blood pressure Yolette Scally Other [employer] Other 06-28-2022 09:00-0500 Respiratory rate 18 /min Yolette Scally Other [employer] Other 06-28-2022 09:00-0500 SaO2% (BldA) [Mass fraction] 98 % Yolette Scally Other [employer] Other 06-28-2022 09:00-0500 Systolic blood pressure 116 mm[Hg] Yolette Scally Other [employer] Other 05-05-2022 09:15-0500 Body height 175.26 cm Yolette Scally Other [employer] Other 05-05-2022 09:15-0500 Body mass index (BMI) [Ratio] 28.84 kg/m2 Yolette Scally Other [employer] Other 05-05-2022 09:15-0500 Body weight 88.59 kg Yolette Scally Other [employer] Other 05-05-2022 09:15-0500 Diastolic blood pressure 67 mm[Hg] Yolette Scally Other [employer] Other 05-05-2022 09:15-0500 Respiratory rate 18 /min Yolette Scally Other [employer] Other 05-05-2022 09:15-0500 SaO2% (BldA) [Mass fraction] 97 % Yolette Scally Other [employer] Other 05-05-2022 09:15-0500 Systolic blood pressure 96 mm[Hg] Yolette Scally Other [employer] Other 02-03-2022 09:30-0400 Body height 175.26 cm Yolette Scally Other [employer] Other 02-03-2022 09:30-0400 Body mass index (BMI) [Ratio] 28.14 kg/m2 Yolette Scally Other [employer] Other 02-03-2022 09:30-0400 Body weight 86.46 kg Yolette Scally Other [employer] Other 02-03-2022 09:30-0400 Diastolic blood pressure 94 mm[Hg] Yolette Scally Other [employer] Other 02-03-2022 09:30-0400 Respiratory rate 18 /min Yolette Scally Other [employer] Other 02-03-2022 09:30-0400 SaO2% (BldA) [Mass fraction] 99 % Yolette Scally Other [employer] Other 02-03-2022 09:30-0400 Systolic blood pressure 141 mm[Hg] Yolette Scally Other [employer] Other 11-01-2021 10:15-0400 Body height 175.26 cm Yolette Scally Other [employer] Other 11-01-2021 10:15-0400 Body mass index (BMI) [Ratio] 27.76 kg/m2 Yolette Scally Other [employer] Other 11-01-2021 10:15-0400 Body weight 85.28 kg Yolette Scally Other [employer] Other 11-01-2021 10:15-0400 Diastolic blood pressure 92 mm[Hg] Yolette Scally Other [employer] Other 11-01-2021 10:15-0400 Respiratory rate 18 /min Yolette Scally Other [employer] Other 11-01-2021 10:15-0400 SaO2% (BldA) [Mass fraction] 99 % Yolette Scally Other [employer] Other 11-01-2021 10:15-0400 Systolic blood pressure 123 mm[Hg] Yolette Scally Other [employer] Other 07-20-2021 09:45-0400 Body height 175.26 cm Yolette Scally Other [employer] Other 07-20-2021 09:45-0400 Body mass index (BMI) [Ratio] 27.85 kg/m2 Yolettegibran Segally Other [employer] Other 07-20-2021 09:45-0400 Body weight 85.55 kg Yolette Pierre Other [employer] Other 07-20-2021 09:45-0400 Diastolic blood pressure 93 mm[Hg] Yolette Philipply Other [employer] Other 07-20-2021 09:45-0400 Respiratory rate 20 /min Yolette Pierre Other [employer] Other 07-20-2021 09:45-0400 SaO2% (BldA) [Mass fraction] 100 % Yolettegibran Pierre Other [employer] Other 07-20-2021 09:45-0400 Systolic blood pressure 139 mm[Hg] Yolette Segally Other [employer] Other Encounters Encounter Date Encounter Type Care Provider Facility Start: 01-21-2025 End: 01-21-2025 ambulatory NON STAFF [facility] Work Phone: Start: 01-21-2025 End: 01-21-2025 Departed Referred Mayra Spears DPM [facility] Start: 01-01-2025 End: 01-01-2025 ambulatory NON STAFF [facility] Work Phone: Start: 01-01-2025 End: 01-01-2025 Patient encounter procedure Yolette Eisenberg Philippbereket [employer] Work Phone: Start: 11-12-2024 End: 11-12-2024 ambulatory Francisco Valdezland [employer] Work Phone: [facility] Work Phone: Start: 11-12-2024 End: 11-12-2024 Departed Referred Mayra Spears DPM [facility] Start: 10-29-2024 End: 10-29-2024 ambulatory Aljanet Valdezland [employer] Work Phone: [facility] Work Phone: Start: 10-29-2024 End: 10-29-2024 Departed Referred Mayra Spears DPM [facility] Start: 10-23-2024 End: 10-23-2024 Office outpatient visit 10 minutes Jamil Culver MD Work Phone: [facility] Comment on above: 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) Start: 10-23-2024 End: 10-23-2024 ambulatory [facility] Start: 10-17-2024 End: 10-17-2024 ambulatory [facility] Start: 10-09-2024 End: 10-09-2024 ambulatory Mayra Spears DPM Work Phone: [facility] Work Phone: Start: 10-09-2024 End: 10-09-2024 Patient encounter procedure Mayra Spears DPM Work Phone: [facility] Work Phone: Start: 10-07-2024 End: 10-07-2024 ambulatory MAYRA Copeland [facility] Start: 09-25-2024 End: 09-25-2024 ambulatory [facility] Start: 09-24-2024 Non-patient / Non-visit Mayra Spears DPM Work Phone: [facility] Work Phone: Start: 09-23-2024 End: 09-23-2024 ambulatory Mayra Spears Facility:[facility] Start: 09-23-2024 End: 09-23-2024 Departed Referred Mayra Spears DPM Work Phone: [facility] Start: 09-23-2024 Non-patient / Non-visit Mayra Spears DPM Work Phone: [facility] Work Phone: Start: 09-22-2024 Non-patient / Non-visit Mayra Spears DPM Work Phone: [facility] Work Phone: Start: 09-21-2024 Non-patient / Non-visit Mayra Spears DPM Work Phone: [facility] Work Phone: Start: 09-20-2024 Non-patient / Non-visit Mayra Spears DPM Work Phone: [facility] Work Phone: Start: 06-18-2024 End: 06-18-2024 ambulatory Yolette Pierre [facility] Work Phone: Start: 06-18-2024 End: 06-18-2024 Departed Referred Yolette Pierre CONFERENCE ORGANIZER Work Phone: [facility] [place] Work Phone: Start: 06-18-2024 End: 06-18-2024 ambulatory [facility] Work Phone: Start: 06-18-2024 End: 06-18-2024 Patient encounter procedure [facility] Work Phone: Start: 04-23-2024 End: 04-23-2024 Patient encounter procedure [facility] Work Phone: Start: 04-11-2024 End: 04-11-2024 Emergency department patient visit [facility] Start: 04-07-2024 End: 04-07-2024 Bamboo flowsheet Melanie Daley DO Work Phone: [employer] [facility] Start: 04-07-2024 End: 04-07-2024 Bamboo flowsheet Melanie Daley DO Work Phone: [employer] [facility] Start: 04-07-2024 End: 04-07-2024 Office outpatient new 45 minutes Melanie Edi DO Work Phone: [employer] [facility] Comment on above: Neuralgia (Primary D x); DDD (degenerative disc disease), cervical Start: 04-07-2024 End: 04-07-2024 ambulatory MELANIE DALEY Not Available Start: 01-21-2024 End: 01-21-2024 ambulatory [facility] Work Phone: Start: 01-21-2024 End: 01-21-2024 Patient encounter procedure [facility] Work Phone: Start: 09-10-2023 End: 09-10-2023 ambulatory [facility] Work Phone: Start: 09-10-2023 End: 09-10-2023 Patient encounter procedure [facility] Work Phone: Start: 06-07-2023 End: 06-07-2023 ambulatory Yolette Pierre Other [employer] Other Start: 06-07-2023 Telephone encounter [facility] Start: 06-05-2023 (DM) Diabetes Yolette maldonado [facility] Start: 06-05-2023 End: 06-05-2023 ambulatory MD Annie Rodgers Work Phone: [employer] Other Start: 06-05-2023 End: 06-05-2023 Discharged Recurring MD Annie Rodgers Work Phone: [facility] Work Phone: Start: 06-05-2023 End: 06-05-2023 Patient encounter procedure MD Annie Rodgers Work Phone: [facility]- Start: 05-18-2023 End: 05-18-2023 ambulatory Yolette Scally Other [employer] Other Start: 05-18-2023 Telephone encounter Yolette Scally [facility] Start: 02-28-2023 End: 02-28-2023 ambulatory Yolette Scally Other [employer] Other Start: 02-28-2023 Telephone encounter Yolette Scally [facility] Start: 02-27-2023 (DM) Diabetes Yolette Scally [facility] Start: 02-27-2023 End: 02-27-2023 ambulatory Yolette Scally Other [employer] Other Start: 12-19-2022 (DM) Diabetes Yolette Scally [facility] Start: 12-19-2022 End: 12-19-2022 ambulatory Yolette Scally Other [employer] Other Start: 12-07-2022 End: 12-07-2022 ambulatory Yolette Scally Other [employer] Other Start: 12-07-2022 Telephone encounter Yolette Scally [facility] Start: 10-03-2022 (DM) Diabetes Yolette Scally [facility] Start: 10-03-2022 End: 10-03-2022 ambulatory Yolette Scally Other [employer] Other Start: 10-03-2022 Telephone encounter Yolette Scally [facility] Start: 07-24-2022 End: 07-24-2022 ambulatory Annie Suzan Other [employer] Other Start: 07-24-2022 Office outpatient ne w 30 minutes Annie Rodgers [facility] Start: 07-04-2022 End: 07-04-2022 ambulatory Yolette Scally Other [employer] Other Start: 07-04-2022 Telephone encounter Yolette Scally [facility] Start: 06-28-2022 (DM) Diabetes Yolette Scally [facility] Start: 06-28-2022 End: 06-28-2022 ambulatory Yolette Scally Other [employer] Other Start: 06-26-2022 End: 06-26-2022 ambulatory Yolette Scally Other [employer] Other Start: 06-26-2022 Telephone encounter Yolette Scally [facility] Start: 06-19-2022 End: 06-19-2022 ambulatory Yolette Scally Other [employer] Other Start: 06-19-2022 Telephone encounter Yolette Scally [facility] Start: 05-05-2022 (DM) Diabetes Yolette Scally [facility] Start: 05-05-2022 End: 05-05-2022 ambulatory Yolette Scally Other [employer] Other Start: 03-27-2022 End: 03-27-2022 ambulatory Yolette Scally Other [employer] Other Start: 03-27-2022 Telephone encounter Yolette Scally [facility] Start: 02-03-2022 (DM) Diabetes Yolette Scally [facility] Start: 02-03-2022 End: 02-03-2022 ambulatory Yolette Scally Other [employer] Other Start: 11-21-2021 End: 11-21-2021 ambulatory Yolette Scally Other [employer] Other Start: 11-21-2021 Telephone encounter Yolette Scally [facility] Start: 11-11-2021 End: 11-11-2021 ambulatory Yolette Scally Other [employer] Other Start: 11-11-2021 Telephone encounter Yolette Scally [facility] [place] Start: 11-01-2021 (DM) Diabetes Yolette Scally [facility] Start: 11-01-2021 End: 11-01-2021 ambulatory Yolette Scally Other [employer] Other Start: 10-24-2021 End: 10-24-2021 ambulatory Yolette Scally Other [employer] Other Start: 10-24-2021 Telephone encounter Yolette Scally [facility] Start: 09-13-2021 End: 09-13-2021 ambulatory Yolette Scally Other [employer] Other Start: 09-13-2021 Telephone encounter Yolette Scally [facility] Start: 08-23-2021 End: 08-23-2021 ambulatory Yolette Scally Other [employer] Other Start: 08-23-2021 Telephone encounter Yolette Scally [facility] Start: 08-04-2021 End: 08-04-2021 ambulatory Yolette Pierre Other [employer] Other Start: 08-04-2021 Telephone encounter Yolette smiley [facility] Start: 07-20-2021 (DM) Diabetes Yolette Pierre [facility] Start: 07-20-2021 End: 07-20-2021 ambulatory Yolette Pierre Other [employer] Other Start: 04-08-2020 End: 04-08-2020 Patient encounter procedure MARCEL PAIZ Facility:[facility] Procedures Date Procedure Procedure Detail Performing Clinician History of amputatio n of lesser toe H/O amputation of lesser toe Mayra Spears DPM Work Phone: Comment on above: right great toe right second toe Plan of Treatment Date Care Activity Detail Author Start: 10-23-2025 Adult BMI Screening Adult BMI Screen ing [facility] Start: 04-11-2025 Tobacco Screening Tobacco Screening [facility] Start: 01-21-2025 [facility] Start: 01-05-2025 Influenza vaccination Influenza Vacc ine [facility] Start: 01-01-2025 Patient referral [facility] Work Phone: Start: 10-29-2024 [facility] Start: 04-07-2024 End: 04-07-2024 Patient encounter procedure 04/07/2024 8:30 AM EST Office Visit [facility] [address] [place] [address] Melanie Daley DO [address] [place] [address] Ar[address] [facility] Comment on above: Arrived Start: 2011 Administration of varicella zoster vaccine Zoster (Shingles) Vaccine (1 of 2) [facility] Start: 02-06-1980 DTaP,Tdap and Td Vac cines (1 - Tdap) DTaP,Tdap and Td Vaccines (1 - Tdap) [facility] Start: 1973 Depression Screening Depression Scre shantel [facility] Comprehensive metabo lic 1999 panel - Serum or Plasma [facility] Comprehensive metabo lic 1999 panel - Serum or Plasma [facility] Patient referral [facility] Work Phone: [facility] Payers Date Payer Category Payer Self-pay [id number] 2024 Medicare O FORMERLY [facility] [id number] 2024 Medicare [id number] 2022 Medicare (Managed Care) [facility] [id number] 2022 Medicare [id number] 1961 Unknown [id number]. 593 1961 Unknown [id number] [id number]. 1259 1961 Unknown [id number] 2.16.840.1.193082.3.579.2. 1286 1961 Unknown [id number] [id number]. 1286 1961 Unknown [id number] [id number]. 1286 1961 Unknown [id number] [id number]. 1286 1961 Unknown [id number] [id number]. 1286 1959 Unknown [id number] Medicare [id number] Unknown [id number] [id number]. 531 Unknown [id number] 2.16.840.1.366056.3.579.2. 531 Unknown [id number] 2.16.840.1.242316.3.579.2. 531 Unknown [id number] 2.16.840.1.199485.3.579.2. 531 Unknown [id number]. 531 Social History Date Type Detail Facility Unknown if ever smoked [employer] Other Start: 06-17-2020 End: 04-11-2024 Sex Assigned At [employer] Other Start: 1960 Sex Assigned At Male [facility] Start: 09-10-2023 End: 01-01-2025 Tobacco smoking status MSIS Ex-smoker (finding) [facility] Tobacco smoking status MSIS Tobacco smoking consumption unknown [facility] Start: 1960 Sex assigned at Not on file [facility] Start: 12-10-2014 End: 06-18-2024 Sex Male (finding) [facility] History of tobacco use Current smoker [facility] Start: 04-11-2024 Alcoholic beverage intake Current drinker of alcohol (finding) [facility] Start: 06-17-2020 End: 04-11-2024 Alcoholic beverage intake [facility] Childcare Unknown [facility] Medical Equipment Procedure Code Equipment Code Equipment [...] discharge to home. 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 Plan is to continue to work with podiatry and follow up with us as needed. [facility]06-19-2025 Miscellaneous Notes* Assessment & Plan Note - Jamil Culver MD - 10/23/2024 11:31 AM EDTAssociated Problem(s): Critical limb ischemia of right lower extremity with gangrene ([facility]-HCC) He has no significant occlusive disease. Plan is to continue to work with podiatry and follow up with us as needed. [facility] History of Present illness Narrative* Jamil Culver MD - 10/23/2024 10:50 AM [...] controlled (CMS-HCC) Hyperlipidemia Hypertension Past Surgical History: Past Surgical History: Procedure Laterality Date lower ext angio Right 10/17/2024 Performed by Jamil Culver MD at [facility] Social and Family [...] you for your understanding. [facility] Evaluation note* Diagnosis Onset Date Resolution Status Admit Date BMI 25.0-25.9,adult acute October 09, 2024 8:20am Dietary counseling and surveillance acute October 09, 2024 8 :20am HTN (hypertension) acute October 092024 8:20am Hyperlipidemia acute October 09, 2024 8:20am Hypotension acute October 09 8:20am USP 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 insulin acu te October 09, 2024 8:20am Persistent albuminuria acute 2024 8:20am Type 2 diabetes mellitus wit h hyperglycemia acute October 09, 2024 8 :20am Vitamin D deficiency acute October 09, 2024 8:20am [facility] Work Phone: 1(439) 435-551006-05-2025 Evaluation note* Diagnosis Onset Date Resolution Status Admit Date BMI 25.0-25.9,adult acute October 09, 2024 8:20am Dietary counseling and surveillance acute October 09, 2024 8 :20am HTN (hypertension) acute October 092024 8:20am Hyperlipidemia acute October 09, 2024 8:20am Hypotension acute October 09 8:20am USP 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 insulin acu te October 09, 2024 8:20am Persistent albuminuria acute 2024 8:20am Type 2 diabetes mellitus wit h hyperglycemia acute October 09, 2024 8 :20am Vitamin D deficiency acute October 09, 2024 8:20am BMI 25.0-25.9,adult acute Augus 2024 9:00am Dietary counseling and surveillance acute January 01 9:00am HTN (hypertension) acute January 01, 2025 9:00am Hyperlipidemia acute December 9:00am Hypotension acute January 01, 2025 9:00am USP 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 insulin acu te January 01, 2025 9:00am Persistent albuminuria acute Au [place] 2024 9:00am Type 2 diabetes mellitus wit h hyperglycemia acute January 01 9:00am Vitamin D deficiency acute Augu st 2024 9:00am [facility] Work Phone: 1(129) 375-915412-18-2024 Evaluation note* Diagnosis Onset Date Resolution Status [...] D deficiency acute Febr uary 2024 8:25am [facility] Work Phone: 1(181) 254-728612-02-2024 History of Present illness Narrative* Melanie Daley, [...] , wrist extensors , wrist flexor , sports umpire strength 5/5. LUE Strength deltoid , biceps , triceps , wrist extensors , wrist flexor , sports umpire strength 5/5. RLE Strength illopsoas, quadriceps, tibialis [...] reflex 2+ . Christy's sign negative. Coordination: Omrcot-te-pveh testing and rapid alternating movements are normal [...] plan, and return instructions documented in this encounterSamaritan [id number] Evaluation note* Encounter Date Diagnosis Assessment Notes Treatment Notes Treatment Clinical Notes Jun, Type 2 diabetes mellitus with hyperglycemia (ICD-10 - E11.65) [employer] Other 01-30-2024 Evaluation note* Encounter Date Diagnosis [...] R80.9) May, BMI 25.0-25.9,adult (ICD-10 - Z68.25) [employer] Other 10-25-2023 Evaluation note* Encounter Date Diagnosis Assessment Notes Treatment Notes Treatment Clinical Notes Feb, Albuminuria (ICD-10 - R80.9) [employer] Other 10-24-2023 Evaluation note* Encounter Date Diagnosis [...] BP good. 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 If cannot tolerate class medications or persistent albuminuria could consider nephrology. Repeat microalbuminuria after Farxiga. Discussed management of glycemia and high blood pressure to protect kidneys. 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 If cannot tolerate class medications or persistent albuminuria could consider nephrology. Repeat microalbuminuria after Farxiga. Discussed management of glycemia and high blood pressure to protect kidneys. 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 If cannot tolerate class medications or persistent albuminuria could consider nephrology. Repeat microalbuminuria after Farxiga. Discussed management of glycemia and high blood pressure to protect kidneys. September, BMI 27.0-27.9,adult (ICD-10 - Z68.27) [employer] Other 03-20-2023 Evaluation note* Encounter Date Diagnosis Assessment Notes Treatment Notes Treatment Clinical Notes Jul, Hyperlipidemia (ICD-10 - E78.5) will refill med and check labs today. Jul, Type 2 diabetes mellitus with hyperglycemia (ICD-10 - E11.65) Continued followup with diabetes clinic. 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 If cannot tolerate class medications or persistent albuminuria could consider nephrology. Repeat microalbuminuria after Farxiga. Discussed management of glycemia and high blood pressure to protect kidneys. Jun, Other inital weigh t increase, now declining [employer] Other 02-13-2023 Evaluation note* Encounter Date Diagnosis Assessment Notes Treatment Notes Treatment Clinical Notes Jun, Type 2 diabetes mellitus with hyperglycemia (ICD-10 - E11.65) [employer] Other 12-30-2022 Evaluation note* Encounter Date Diagnosis [...] PCP to manage cholesterol and preventative treatments. [facility] physician group primary care provider flyer [...] will have patient present for download with clinical trial educator in 4 weeks and provider in [...] About Healthy Weight material was published to sendwithus Apr, Hyperlipidemia (ICD-10 - E78.5) Learning About High Cholesterol material was published to portal Encouraged to establish with primary care for preventative health Apr, HTN (hypertension) (ICD-10 - I10) High Blood Pressure: Care Instructions material was published to [employer] Apr, USP 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 insulin (ICD-10 - Z79.4) Apr, BMI 28.0-28.9,adult (ICD-10 - Z68.28) Apr, Persistent albuminuria (ICD-10 - R80.9) Failed Jardiance, will do trial of Farxiga. If cannot tolerate class medications or persistent albuminuria could consider nephrology. Repeat microalbuminuria after Farxiga. Discussed management of glycemia and high blood pressure to protect kidneys. Apr, Other inital weigh t increase, now declining [employer] Other 09-30-2022 Evaluation note* Encounter Date Diagnosis Assessment Notes Treatment Notes Treatment Clinical Notes 30 Sep, 2022 Vitamin D deficiency (ICD-10 - E55.9) Learning [...] for activation. She continue roberta. Encouraged calling [employer] for replacement of 2 sensors. 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 Patient has difficulty with his regrader currently, questioning accuracy as it was run over. He will request a new regrader from [employer]. We also discussed using cell phone as [...] previous PCP. He is given information regarding [facility] physicians to include Dr. Vela who may be geographically desirable. I did send him with written to do list 1 call [employer] for replacement of regrader. To download [employer] matthew on cell phone for next sensor [...] diabetes medication issues. 6. Prescriptions: Jardiance sent [facility] 07-20-21 Jul, Dietary counseling and surveillance (ICD-10 - Z71.3) Learning About Healthy Weight material was published to [employer]withus Jul, Hyperlipidemia (ICD-10 - E78.5) Learning About High Cholesterol material was published to [employer] LDL 53-- Continue Crestor Jul, HTN (hypertension) (ICD-10 - I10) High Blood Pressure: Care Instructions material was published to [employer] Jul, USP 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 insulin (ICD-10 - Z79.4) Jul, BMI 27.0-27.9,adult (ICD-10 - Z68.27) Jul, Other inital weigh t increase, now declining [employer] Other Chief complaint+Reason for visit Narrative* Chief Complaint DMN f/u-METER Reason for Visit BMI 25.0-25.9,adult Dietary counseling and surveillance HTN (hypertension) Hyperlipidemia 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 Persistent albuminuria Type 2 diabetes mellitus with hyperglycemia Vitamin D deficiency [facility] Work Phone: Evaluation noteNo InformationNort [employer] Other Evaluation noteNo assessment information available [facility] Work Phone: Evaluation note* Diagnosis Onset Date Resolution Status BMI 25.0-25.9,adult acute Dietary counseling and surveillance acute HTN (hypertension) acute Hyperlipidemia acute USP 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 insulin acute Persistent albuminuria acute Type 2 diabetes mellitus with hyperglycemia acute Vitamin D deficiency acute [facility] Work Phone: Evaluation note* Diagnosis Neuralgia- Primary [...] 8:20am Hyperlipidemia acute October 09, 2024 8:20am 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 acu te October 09, 2024 8:20am Persistent albuminuria acute Ju 2024 8:20am Type 2 diabetes mellitus wit h hyperglycemia acute October 09, 2024 8 :20am Vitamin D deficiency acute October 09, 2024 8:20am [facility] Work Phone: Evaluation note* Diagnosis Critical limb ischemia of right lower extremity with gangrene (CMS-HCC)- Primary PAD (peripheral artery disease) Unspecified peripheral vascular disease Gangrene (CMS-HCC) Gangrene Critical limb ischemia of right lower extremity with gangrene (CMS-HCC)- Primary documented in this encounter [facility] System[facility] general Narrative - Reported* Type Description Date Medical History Herpes zoster dermatitis Medical History Abscess, lip- PICC line prolonge d ABX 2016 Medical History Neck sprain, strain Medical History Hypertension, controlled Medical History Hyperlipidemia Medical History Diabetes, type 2 Medical History Hx of Covid 19 (04/2020) Surgical History PICC LINE 2017 Hospitalization History ICU In [facility] f or 8-10 days 2017 [employer] Other Hospital Discharge instructionsAmbulatory Orders* Referral to Nephrology Time Frame: 01/01/25, Location: None Selected [facility] Work Phone: InstructionsNot on filedocumented in this encounter [facility] SystemReason for referral (narrative)* Reason Nail deformity, Type II Diabetes Referral sent , patient informed Diagnosis 1 Type 2 diabetes reji itus with hyperglycemia (E11.65) Diagnosis 2 Nail deformity (L60. 8) Referral Organization [facility] Referring Provider First Name Yolette Referring Provider Last Name Scally Referring Provider Specialty Nurse Pract itioner Referred Organization [facility] Referred Provider NORY AHMADI Referred Address ,[place],[address] Referred Provider Specialty Podiatry - S urgical Chiropody Referral Priority Routine General Notes Yolette Benavides 06/08 09:03:14 AM > Per Nelia at Dr Montes office once referral is received she will call patient for appt, Jennifer informed Yolette Benavides 06/30/2022 09:23:23 AM > Referral faxed, for some reason last office note did not attach so I did fax the last office note seperatly thru our free standing office fax. and informed Yolette Avitia 06/30/2022 09:30:52 AM >Patient informed, and given Dr Montes phone number in case he doesn't hear from them. Clinical Notes Dr Nory Ahmadi# [phone] [employer] Other Reason for referral (narrative)No reason for referral information [facility] Work Phone: Summary Purpose Family [...] 8:54am Hyperlipidemia April 23, 2024 8:54am 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 Decembe r 2023 8:54am Persistent albuminuria April 23 8:54am Type 2 diabetes mellitus with hyperglyce samir April 23, 2024 8:54am Vitamin D deficiency April 23, 2024 8:54am BMI 25.0-25.9,adult June 18, 2024 8:25am Dietary counseling and surveillance Febr ry 2024 8:25am HTN (hypertension) June 18, 2024 8:25am Hyperlipidemia June 18, 2024 8:25am 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 Februar y 2024 [...] m Hypotension October 09, 2024 8:20a m USP current [...] m Hypotension October 09, 2024 8:20a m USP 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 insulin October 8:20am Persistent albuminuria October 09, 2024 8: 20am Type 2 diabetes mellitus with hyperglyce samir October 09, 2024 8:20am Vitamin D deficiency October 09, 2024 8:20 am BMI 25.0-25.9,adult January 01, 2025 9: 00am Dietary counseling and surveillance Augu 2024 9:00am HTN (hypertension) January 01, 2025 9: 00am Hyperlipidemia January 01, 2025 9: 00am Hypotension January 01, 2025 9: 00am 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 January 01, 2025 9:00am Persistent albuminuria January 01, 2025 9:00am Type 2 diabetes mellitus with hyperglyce samir January 01, 2025 9:00am Vitamin D deficiency January 01, 2025 9 :00am Chief Complaint Admit Date Unknown October 29, 2024 2:45 pm Unknown November 12, 2024 1:45p m DMN f/u January 01, 2025 9: 00am Unknown January 21, 2025 9:30am Reason for Visit Admit Date BMI 25.0-25.9,adult January 01, 2025 9: 00am Dietary counseling and surveillance Augu st 2024 9:00am HTN (hypertension) January 01, 2025 9: 00am Hyperlipidemia January 01, 2025 9: 00am Hypotension January 01, 2025 9: 00am USP 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 insulin January 01, 2025 [...] content) DATE CREATED AUTHOR 04/12/2020 [facility] DATE CREATED AUTHOR AUTHOR'S ORGANIZ ATION 04/07/2024 [facility] EPIC DATE CREATED AUTHOR AUTHOR'S ORGANIZ ATION 10/08/2024 [facility] DATE CREATED AUTHOR AUTHOR'S ORGANIZ ATION 10/20/2024 [facility] DATE CREATED AUTHOR AUTHOR'S ORGANIZ ATION 10/26/2024 [facility] DATE CREATED AUTHOR AUTHOR'S ORGANIZ ATION 02/07/2025 [facility] REASON FOR VISIT (unrecogniz ed [...] Active Member Role Status Dates Francisco Walters FREIGHT CAR BUILDER-C Primary Care Provider Active Start: September 20, 2024 Krys Hummel MD Attending Provider Active Sta rt: September 20, 2024 Team Status: Active Member Role Status Dates Francisco Walters FREIGHT CAR BUILDER-C Primary Care Provider Active Start: September 21, 2024 Shaikh Shaji MD Attending Provider Active Sta rt: September 21, 2024 Team Status: Active Member Role Status Dates Francisco Walters FREIGHT CAR BUILDER-C Primary Care Provider Active Start: September 22, 2024 Shaikh Shaji MD Attending Provider Active Sta rt: September 22, 2024 Team Status: Active Member Role Status Dates Francisco Walters FREIGHT CAR BUILDER-C Primary Care Provider Active Start: September 23, 2024 Shaikh Shaji MD Attending Provider Active Sta rt: September 23, 2024 Team Status: Inactive Member Role Status Dates Mayra Spears DPM MS Attending Provider Active Start: September 23, 2024 End: September 23, 2024 Team Status: Active Member Role Status Dates Desiree Garcia CMA Attending Provider Active Start: September 24, 2024 Team Status: Active Member Role Status [...] January 21, 2024 End: January 21, 2024 Vessel Traffic Officer Relationship Specialty Start Date End Date Melanie Daley DO [address] [id number] Referring Physician Neurology 04/07/24 Leticia Blanco NP [address] [id number] Nurse Practitioner Neurology 04/07/24 Suzanna Ybarra NP [address] [id number] Nurse Practitioner Neurology 04/07/24 Team Status: Inactive [...] June 18, 2024 End: June 18, 2024 Vessel Traffic Officer Relationship Specialty Start Date End Date No Pcp, [place] [address] PCP - General Family Medicine 04/11/24 Team Status: Inactive Member Role Status Dates Mayra Spears DPM MS Attending Provider Active Start: January 21, 2025 End: January 21, 2025 Goals (unrecognized section and content) Goals [...] BE BASED ON THE PRIMARY CLINICAL RECORDS. [facility]. provides no warranty or guarantee of the accuracy or completeness of information in this document.
== END 2025-02-18 10:07 | disposition home or self-care (01) ==
LOC: WC 10:06
PROVIDERS: PCP Family Medicine; Visit Provider Podiatrist Foot & Ankle Surgery
DX: I70.261 Atherosclerosis of native arteries of extremities with gangrene, right leg (principal); L97.514 Non-pressure chronic ulcer of other part of right foot with necrosis of bone
CPT/HCPCS: G0463

== ENCOUNTER 2025-03-04 09:18 | Outpatient (OUT) | payer MEDICARE, SELFPAY ==
--- OUTSIDE RECORDS SUMMARY | 2025-03-04 09:21 | XMS_ITS | Clinical Summary ---
Author Organization [email or web address] tem Address [id number] [address] [place] [address] Care Team Providers Care Packaging Coordinator Name Role Phone No Pcp, No Pcp Primary Care Provider Unavailabl e Allergies No known active allergies Medications MedicationSigDispense QuantityRefillsLast FilledStart DateEnd DateStatus insulin glargine (LANTUS) 100 unit/mL injection Inject 0.55 mL (55 Units total) under the skin nightly.Active sodium chloride 0.9 % injection 10 mL by intravenous push route as needed.09/23/2016Active dapagliflozin propanediol (FARXIGA) 10 mg tablet Take 1 tablet (10 mg total) by mouth in the morning.09/10/2023ctive semaglutide (OZEMPIC SUBQ) Inject under the skin See Admin Instructions.Active OXcarbazepine (TRILEPTAL) 150 mg tablet Take 1 tablet (150 mg total) by mouth in the morning and 1 tablet (150 mg total) before bedtime.04/07/2024ctive metFORMIN XR (GLUCOPHAGE XR) 500 mg 24 hr tablet Take 1 tablet (500 mg total) by mouth daily with breakfast.09/10/2023ctive rosuvastatin (CRESTOR) 40 mg tablet Take 1 tablet (40 mg total) by mouth in the morning.Active insulin aspart, niacinamide, 100 unit/mL (3 mL) insulin pen 01/21/2024ctive cyclobenzaprine (FLEXERIL) 10 mg tablet Indications:Closed fracture of multiple ribs of right side, initial encounter Take 1 tablet (10 mg total) by mouth 2 (two) times a day as needed for muscle spasms. 10 tablet 04/11/2024ctive Additional Information Patient not taking.Reported on 10/23/2024 lidocaine (LIDODERM) 5 % Indications:Closed fracture of multiple ribs of right side, initial encounter Place 1 patch on the skin daily. Remove & Discard patch within 12 hours or as directed by 30 patch 4Active Additional Information Patient not taking.Reported on 10/23/2024 ciprofloxacin HCl (CIPRO) 500 mg tablet Take 1 tablet (500 mg total) by mouth in the morning and 1 tablet (500 mg total) before bedtime.5Active doxycycline (MONODOX) 100 mg capsule Take 1 capsule (100 mg total) by mouth in the morning and 1 capsule (100 mg total) before bedtime.5Active lisinopriL (PRINIVIL,ZESTRIL) 5 mg tablet Take 1 tablet (5 mg total) by mouth in the morning.Active aspirin 81 mg chewable tablet Chew 1 tablet (81 mg total) and swallow in the morning. 90 tablet 5Active Active Problems ProblemNoted DateDiagnosed DatePAD (peripheral artery disease)10/07/2024Gangrene 10/07/2024ritical limb ischemia of right lower extremity with gangrene 09/25/2024 Assessment & [...] right lower extremity angiogram and intervention. Facial skmmastjbl52/13/2017 Encounters DateTypeDepartmentCare DiqzSkloxvsiees10/22/2025Travelfrom Last 3 Months Family History Medical HistoryRelationNameCommentsDiabetesMotherRelationNameStatusComments Mother Social History Tobacco UseTypesPacks/DayYears UsedDateSmoking Tobacco: FormerAlcohol Use Standard Drinks/OvwwRbebprwdFcq04 (1 standard drink = 0.6 oz pure alcohol) ChildcareAnswerDate FkflqmzrGiosjxoacCdqmgso80/12/2019EmploymentAnswerDate EitfbvkvDixaosjhjiHpzcawu34/12/2019Hunger ScreeningAnswerDate RecordedWithin the past 12 months we worried whether our food would run out before we got money to buy more.Never True04/11/2024Within the past 12 months the food we bought just didn't last and we didn't have money to get more.Never True04/11/2024urpose - LifeAnswerDate RecordedPurpose and direction in kutlFrckufc78/11/2021ex and Gender InformationValueDate RecordedSex Assigned at BirthNot on fileLegal Sex Male12/10/2014 11:42 AM EDTGender IdentityNot on fileSexual OrientationNot on file Last Filed Vital Signs Vital SignReadingTime TakenCommentsBlood Huqfriqy669/76010/23/2024 10:55 AM EDT Zfdqm7329/19/2025 10:55 AM QUBVwkfxylcbgo67.3 ??C (97.3 ??F)09/25/2024 10:48 AM EDTRespiratory Ifig307010/17/2024 4:00 PM EDTOxygen Hheggrtqnd68%10/17/2024 4:00 PM EDTInhaled Oxygen Concentration--Cazkim90.6 kg (160 lb)10/23/2024 10:55 AM BHXZzznch346.3 cm (5' 9 )10/23/2024 10:55 AM EDTBody Mass Index23.63010/23/2024 10:55 AM EDT Plan of Treatment Health MaintenanceDue DateLast DoneCommentsDiabetic Ophthalmology Exam1961 Depression Ztycruqpj49/02/1973Diabetic Foot Exam1979DTaP,Tdap and Td Vaccines (1 - Tdap)02/06/1980Zoster (Shingles) Vaccine (1 of 2)2011 Influenza Svhdorr2401/05/2025Statin Use: Lmcodxvqiguyae91Statin Use: Apxgoqjt02Tobacco Prqpuaacm00/dult BMI Wfexgoovt35 Goals GoalPatient Goal TypeAssociated ProblemsRecent ProgressPatient-Stated?Author dc to home GeneralYesCanales, Camille Baez, RN Note: Evaluation of progress towards goal: Patients goal is to discharge to home. Medical Devices Not on file Procedures Procedure NamePriorityDate/TimeAssociated DiagnosisCommentsVITAMIN D 25 HYDROXY Tczcuzx8002/25/2025 8:44 AM EDT Essential (primary) hypertension Type 2 diabetes mellitus with hyperglycemia ([facility]) Vitamin D deficiency, unspecified Hyperlipidemia, unspecified Proteinuria, unspecified VITAMIN F35Uxuvazh69/22/2025 8:44 AM EDT Essential (primary) hypertension Type 2 diabetes mellitus with hyperglycemia ([facility]-H[facility]) Vitamin D deficiency, unspecified Hyperlipidemia, unspecified Proteinuria, unspecified LIPID LERPCJQHgpkuos34/22/2025 8:44 AM EDT Essential (primary) hypertension Type 2 diabetes mellitus with hyperglycemia ([facility]) Vitamin D deficiency, unspecified Hyperlipidemia, unspecified Proteinuria, unspecified from Last 3 Months Results * Vitamin D 25 hydroxy (02/25/2025 8:44 AM EDT)ComponentValueRef RangeTest MethodAnalysis TimePerformed AtPathologist SignatureVITAMIN D 25 HYD TOT30.9 30.0 - 100.0 ng/mL02/25/2025 2:41 PM [facility] Specimen (Source)Anatomical Location / LateralityCollection Method / Volume Collection TimeReceived TimeBloodVenous blood / UnknownVenipuncture / Unknown 02/25/2025 8:44 AM EDT1 8:44 AM EDT [facility] - 02/25/2025 2:41 PM EDT Vitamin D status 25 [place] Vitamin D Deficiency <20 ng/mL Insufficiency ? 20-29 ng/mL Sufficiency ? 30-100 ng/mL Toxicity >100 ng/mL NOTE: A pediatric reference range has not been established by the ssds mk 2 advanced operator of this kit. The [place] [employer] recommends a Vitamin D level of = or >20ng/mL in infants and children. Authorizing ProviderResult TypeResult StatusYolette Pierre REGULATOR TESTER-CNPLAB BLOOD ORDERABLESFinal ResultPerforming OrganizationAddressCity/State/ZIP CodePhone Number [facility] [address] [place] [address], * Vitamin B12 (02/25/2025 8:44 AM EDT)ComponentValueRef RangeTest MethodAnalysis TimePerformed AtPathologist SignatureVITAMIN [id number] - 914 pg/mL02/25/2025 2:38 PM [facility] LABORATORYSpecimen (Source)Anatomical Location / LateralityCollection Method / VolumeCollection TimeReceived Time BloodVenous blood / UnknownVenipuncture / Etyivji8502/25/2025 8:44 AM EDT 02/25/2025 8:44 AM EDT Narrative Authorizing ProviderResult TypeResult StatusDeShriners Hospital REGULATOR TESTER-CNPLAB BLOOD ORDERABLESFinal ResultPerforming OrganizationAddressCity/State/ZIP CodePhone Number [facility] [place] [address], * Lipid profile (02/25/2025 8:44 AM EDT)ComponentValueRef RangeTest Method Analysis TimePerformed AtPathologist [id number] - 200 mg/dL 02/25/2025 2:18 PM [facility] HXEPDYEMTVTDCTFGVIMIVM8733 - 150 mg/dL02/25/2025 2:18 PM [facility] LABORATORYHDL OZSGSTZPAAI91>39 mg/dL02/25/2025 2:18 PM [facility] LABORATORYComment: HDL <40 mg/dL - High Risk HDL > or = 40mg/dL- Desirable HDL >60 mg/dL - Negative Risk LDL (CALC)73<130 mg/dL02/25/2025 2:18 PM [facility] Comment: LDL <100 mg/dL - Desirable LDL >160 mg/dL - High Risk CHOLESTEROL:HDL2.31.0 - 5.010 2:18 PM [facility] LABORATORYVERY LOW BPBQJLALEWY991 - 30 mg/dL02/25/2025 2:18 PM [facility] LABORATORYSpecimen (Source)Anatomical Location / Laterality Collection Method / VolumeCollection TimeReceived TimeBloodVenous blood / UnknownVenipuncture / Unxzphd7402/25/2025 8:44 AM EDT1 8:44 AM EDT Narrative Authorizing ProviderResult TypeResult StatusDeminor Pierre REGULATOR TESTER-CNPLAB BLOOD ORDERABLESFinal ResultPerforming OrganizationAddressCity/State/ZIP CodePhone Number [facility] [address] [place] [address], from Last 3 Months Insurance Advance Directives * Full Code (Latest Code Status on File) Date ActivatedDate InactivatedComments09/16/2016 8:20 PM09/22/2016 8:22 PM * Full Code Date ActivatedDate InactivatedComments09/16/2016 1:01 PM09/16/2016 8:20 PM Care Teams Team MemberRelationshipSpecialtyStart DateEnd Date No Pcp[place] [address] PCP - GeneralFamily Kzchvwah10/6/24
--- OUTSIDE RECORDS SUMMARY | 2025-03-04 09:21 | XMS_ITS | Encounter Summary ---
Author Organization [employer] tem Address [facility] [id number] [address] [place] [address] Care Team Providers Care Ui Developer Designer Name Role Phone No Pcp, No Pcp Primary Care Provider Unavailabl e Encounter Details DateTypeDepartmentCare Team (Latest Contact Info)Hbqtgywdrps84/22/2025Travel Social History Tobacco UseTypesPacks/DayYears UsedDateSmoking Tobacco: FormerAlcohol Use Standard Drinks/FjknTgqwpnkqEin78 (1 standard drink = 0.6 oz pure alcohol) ChildcareAnswerDate WfwimoviZgmvqhdytJqdwkcb83/12/2019EmploymentAnswerDate ApduzpitExrzolukwzJphzsws54/12/2019Hunger ScreeningAnswerDate RecordedWithin the past 12 months we worried whether our food would run out before we got money to buy more.Never True04/11/2024Within the past 12 months the food we bought just didn't last and we didn't have money to get more.Never True4Purpose - LifeAnswerDate RecordedPurpose and direction in pdciDqzqndh18/11/2021ex and Gender InformationValueDate RecordedSex Assigned at BirthNot on fileLegal Sex Male12/10/2014 11:42 AM EDTGender IdentityNot on fileSexual OrientationNot on filedocumented as of this encounter Plan of Treatment Not on file documented as of this encounter Goals GoalPatient Goal TypeAssociated ProblemsRecent ProgressPatient-Stated?Author dc to home GeneralYesCanales, Camille Baez RN Note: Evaluation of progress towards goal: Patients goal is to discharge to home. documented as of this encounter Visit Diagnoses Not on filedocumented in this encounter Care Teams Team MemberRelationshipSpecialtyStart DateEnd Date No Pcp, [place] [address] [facility] - [facility] Cmplyfdv61/6/24documented as of this encounter
--- OUTSIDE RECORDS SUMMARY | 2025-03-04 09:21 | XMS_ITS | Clinical Summary ---
Author Organization [facility] Address [address] [place] [address] Care Team Providers Care Repairer Name Role Phone Raman Daley DO Unavailable [phone] Leticia Blanco CARDIOLOGY CONSULTANT Unavailable [phone] Suzanna Ybarra NP Unavailable Unavailable Allergies No known active allergies Medications MedicationSigDispense QuantityRefillsLast FilledStart DateEnd DateStatus dapagliflozin (Farxiga) 10 MG Take 10 mg by mouth DailyActive Semaglutide (OZEMPIC, 0.25 OR 0.5 MG/DOSE, SC) Inject under the skinActive metFORMIN (Glucophage) 500 MG tablet Take 1,000 mg by mouth in the morning. Take with meals.Active rosuvastatin (Crestor) 40 MG tablet Take 40 mg by mouth DailyActive lisinopril 5 MG tablet Take 5 mg by mouth DailyActive insulin glargine (Lantus) 100 UNIT/ML injection Inject under the skin at bedtimeActive OXcarbazepine (Trileptal) 150 MG tablet Indications:NeuralgiaTAKE 1 TABLET BY MOUTH IN THE MORNING AND 1 TABLET BEFORE BEDTIME 180 tablet ctive Social History Tobacco UseTypesPacks/DayYears UsedDateSmoking Tobacco: Never AssessedSex and Gender InformationValueDate RecordedSex Assigned at BirthNot on fileLegal Sex Male07/19/2022 6:59 PM EDTGender IdentityNot on fileSexual OrientationNot on file Last Filed Vital Signs Vital SignReadingTime TakenCommentsBlood Jnsrelqb905/8804/07/2024 8:17 AM EST Tfmty147604/07/2024 8:17 AM ESTTemperature--Respiratory Rate--Oxygen Iusqttlbgr27% 04/07/2024 8:17 AM ESTInhaled Oxygen Concentration--Gycvnn08.2 kg (176 lb 12.8 oz)04/07/2024 8:17 AM ZZQGbutov044.3 cm (5' 9 )04/07/2024 8:17 AM ESTBody Mass Index26.11106/08/2023 8:17 AM EST Plan of Treatment Not on file Insurance Care Teams Team MemberRelationshipSpecialtyStart DateEnd Raman Daley DO [address] [place] [phone] Referring FfwrimwszIwvyzkowu21/2/24 Leticia Blanco NP [address] [address] Nurse SknydrtkwrciXhgjfsqub69/2/24 Suzanna Ybarra NP [address] [address] Nurse SftsesiuckdwTkqfcdjji76/2/24
--- OUTSIDE RECORDS SUMMARY | 2025-03-04 09:28 | XMS_ITS | CCD ---
Author Organization [facility] Care Team Providers Care Print Shop Chief Clerk Name Role Phone MARCEL PAIZ Attending Unavailable NORY WAN Consulting Unavailable ANNIE RODGERS Primary Care Unavailable MARCEL PAIZ Admitting Unavailable MARCEL PAIZ Consulting Unavailable Yolette Ge Unavailable Annie Rodgers Unavailable MD Annie Rodgers Primary Care Provider TIFFANIE Ge Attending Provider Unavailable Primary Care Provider UnavailMelanie Hale DO Unavailable Francis ELECTRONICS INSPECTOR, Leticia Unavailable Tate ELECTRONICS INSPECTOR, Suzanna Unavailable MELANIE DALEY Attending Unavailable Yolette Ge APRN Attending Provider Mayra Spears DPM Attending Provider JAMIL CULVER F Admitting Unavailable VERNON CULVERAMED F Attending Unavailable NO PCP, NO PCP Primary Care Unavailable No Pcp, No Pcp Primary Care Provider UnavailVERNON SorianoAMED F Attending Unavailable MAYRA SPEARS Referring Unavailable NO PCP, NO PCP Primary Care Unavailable AUGUSTO, MOHAMED F Attending Unavailable NO PCP, NO PCP Primary Care Unavailable Selena FOURNIER-C, Francisco Lee Primary Care Provider Estephanie CARVALHO, Krys Mckenzie Attending Provider Shaji CARVALHO, Attending Provider Desiree Garcia CMA Attending Provider Unavaila Yolette Clifton APRN Attending Provider NON STAFF Primary Care Provider Unavailabl e Regan DPM Mayra Copeland Attending Provider Yolette Ge APRN Attending Provider NON STAFF Primary Care Provider Unavailabl e Mayra Spears Attending Unavailable Mayra Spears Admitting Unavailable Mayra Spears Admitting Unavailable Mayra Spears Attending Unavailable Yolette Ge Attending Unavailable Yolette Ge Admitting Unavailable HighlMayra graves Admitting Unavailable Highlely, Mayra Copeland Attending Unavailable Mayra Spears Attending Unavailable Mayra Speras Admitting Unavailable LOCKE PARRISH Attending Unavailable NO PCP, NO PCP Primary Care Unavailable MAYRA SPEARS Referring Unavailable NO PCP, NO PCP Primary Care Unavailable YOLETTE GE Referring Unavailable NO PCP, NO PCP Primary Care Unavailable Medications Current Medications MedicationDrug Class(es)DatesSig (Normalized)Sig (Original)0.25 MG, 0.5 MG Dose 3 ML semaglutide 0.68 MG/ML Pen Injector [Ozempic] (5 sources)Start: 10-66-4835Cjvwjer (0.25 or 0.5 MG/DOSE) 2 MG/3ML 0.25 mg Subcutaneous weely for 90 days September, ActiveOzempic (0.25 or 0.5 MG/DOSE) 2 MG/3ML 0.5 mg Subcutaneous weely for 90 days COPAY CARD ActiveOzempic (0.25 or 0.5 MG/DOSE) 2 MG/3ML 0.25 mg Subcutaneous weely for 90 days COPAY CARD Active aspirin 81 mg chewable tablet (1 source)Platelet Aggregation Inhibitor, Nonsteroidal Anti-inflammatory Drug Start: 90-97-7749hjolmnj 81 mg chewable tablet Chew 1 tablet (81 mg total) and swallow in the morning. 90 tablet 4 09/25/2024 ActiveBlood-Glucose Meter (Onetouch Ultra2 Meter) [facility] (14 sources)Start: 58-12-9450Sdkph-Glucose Meter (Onetouch Ultra2 Meter) [facility] Active 0 .Route June 18, 2024 10:07am As directed test blood sugar three times dailyStart: 25-37-2084Rtkvx-Glucose Meter (Onetouch Ultra2 Meter) [facility] Active 0 .Route June 18, 2024 9:07am As directed test blood sugar three times dailyStart: 06-18-2024 End: 30-18-0932Dugrg-Glucose Meter (Onetouch Ultra2 Meter) [facility] Discontinued 0 .Route June 18, 2024 1:00am June 18, 2024 10:08am As directedStart: 06-18-2024 End: 10-77-2364Oehxd-Glucose Meter (Onetouch Ultra2 Meter) mis Discontinued 0 .Route June 18, 2024 12:00am June 18, 2024 9:08am As directed cholecalciferol 0.05 mg oral capsule (16 sources)Vitamin DStart: 63-61-2293hhlx 1 capsule by mouth once dailyStart: 04-58-3371mcnf 1 capsule by mouth every weekCholecalciferol 1.25 MG (73559 UT) 1 capsule Orally weekly for 56 days Then D3 OtC 4000 UT daily 2022 Active take 1 capsule by mouth every weekCholecalciferol 100 MCG (4000 UT) 1 capsule Orally weekly for 56 days Then D3 OtC 4000 UT daily Activetake 1 capsule by mouth every weekCholecalciferol 1.25 MG (38264 UT) 1 capsule Orally weekly for 56 days Then D3 OtC 4000 UT daily Activeciprofloxacin 500 mg oral tablet (2 sources)Quinolone AntimicrobialStart: 56-75-5326tlvr 1 tablet by mouth twice dailyStart: 70-29-4003cbmo 1 tablet by mouth in the morning, then take 1 tablet by mouth at bedtimeciprofloxacin HCl (CIPRO) 500 mg tablet Take 1 tablet (500 mg total) by mouth in the morning and 1 tablet (500 mg total) before bedtime. 09/23/2024 Activecyclobenzaprine hydrochloride 10 mg oral tablet (1 source)Muscle RelaxantStart: 07-85-2034zull 1 tablet by mouth twice daily as needed for muscle spasmscyclobenzaprine (FLEXERIL) 10 mg tablet Indications: Closed fracture of multiple ribs of right side, initial encounter Take 1 tablet (10 mg total) by mouth 2 (two) times a day as needed for muscle spasms. 10 tablet 04/11/2024 Activedapagliflozin 10 mg oral tablet (20 sources)Sodium-Glucose Cotransporter 2 InhibitorStart: 09-05-2023 End: 81-14-1374dtai 1 tablet by mouth once dailyStart: 30-56-8421yhse 1 tablet by mouth every twenty-four hoursFarxiga 5 MG 1 tablet Orally Once a day for 30 day(s) has coupon card Jan, Activedoxycycline monohydrate 100 mg oral capsule (1 source)Tetracycline-class DrugStart: 52-74-7387vhyb 1 capsule by mouth in the morning, then take 1 capsule by mouth at bedtimedoxycycline (MONODOX) 100 mg capsule Take 1 capsule (100 mg total) by mouth in the morning and 1 capsule (100 mg total) before bedtime. 09/23/2024 Activeempagliflozin 10 mg oral tablet (5 sources)Sodium-Glucose Cotransporter 2 Inhibitortake 1 tablet by mouth every twenty-four hoursJardiance 10 MG 1 tablet Orally Once a day for 90 day(s) patient has coupon card ActiveFlash Glucose Scanning Coplay (Freestyle Roberta 2 Coplay) misc (18 sources)Start: 76-01-5470Bapvg Glucose Scanning Coplay (Freestyle Roberta 2 Coplay) misc Active 0 .MEDSUPPLY September 07, 2023 12:58pm As directed to monitor blood sugarStart: 55-15-0310Ehzfb Glucose Scanning Coplay (Freestyle Roberta 2 Coplay) misc Active 0 .MEDSUPPLY September 07, 2023 1:58pm As directed to monitor blood sugarStart: 09-07-2023 End: 43-59-2466Aahfu Glucose Scanning Coplay (Freestyle Roberta 2 Coplay) misc Discontinued 0 .MEDSUPPLY September 06, 2023 11:00pm September 07, 2023 1:01pm As directedStart: 09-07-2023 End: 72-56-5405Gbchq Glucose Scanning Coplay (Freestyle Roberta 2 Coplay) misc Discontinued 0 .MEDSUPPLY September 07, 2023 12:00am September 07, 2023 2:01pm As directedFlash Glucose Sensor (Freestyle Roberta 2 Sensor) kit (20 sources)Start: 29-03-9815Wbwwh Glucose Sensor (Freestyle Roberta 2 Sensor) kit Active 0 .MEDSUPPLY June 18, 2024 9:51am As directed Change every 14 DaysStart: 91-46-0450Qswxj Glucose Sensor (Freestyle Roberta 2 Sensor) kit Active 0 KIT .MEDSUPPLY June 18, 2024 9:51am As directed Change every 14 Days Start: 78-70-8485Fgalc Glucose Sensor (Freestyle Roberta 2 Sensor) kit Active 0 KIT .MEDSUPPLY June 18, 2024 8:51am As directed Change every 14 Days Start: 03-24-2024 End: 36-08-7928Zgoxa Glucose Sensor (Freestyle Roberta 2 Sensor) kit Discontinued 0 .MEDSUPPLY March 240:37am June 18, 2024 9:51am As directed Change every 14 DaysStart: 03-24-2024 End: 69-48-5812Izwfu Glucose Sensor (Freestyle Roberta 2 Sensor) kit Discontinued 0 KIT .MEDSUPPLY March 24, 2024 10:37am June 18, 2024 9:51am As directed Change every 14 DaysStart: 03-24-2024 End: 28-78-0975Deska Glucose Sensor (Freestyle Roberta 2 Sensor) kit Discontinued 0 KIT .MEDSUPPLY March 24, 2024 9:37am June 18, 2024 8:51am As directed Change every 14 DaysStart: 03-24-2024 End: 59-86-7026Bkknw Glucose Sensor (Freestyle Roberta 2 Sensor) kit Discontinued 0 .MEDSUPPLY March 2441:00am March 24, 2024 10:37am As directed Change every 14 DaysStart: 03-24-2024 End: 34-43-1661Ppdpl Glucose Sensor (Freestyle Roberta 2 Sensor) kit Discontinued 0 KIT .MEDSUPPLY March 24, 2024 1:00am March 24, 2024 10:37am As directed Change every 14 DaysStart: 03-24-2024 End: 30-29-4992Copyr Glucose Sensor (Freestyle Roberta 2 Sensor) kit Discontinued 0 KIT .MEDSUPPLY March 24, 2024 12:00am March 24, 2024 9:37am As directed Change every 14 DaysStart: 09-05-2023 End: 06-09-5706Wafjl Glucose Sensor (Freestyle Roberta 2 Sensor) kit Discontinued EACH .ROUTE .MEDSUPPLY September 05, 2023 12:00am March 24, 2024 10:36am As directedStart: 09-05-2023 End: 57-67-0440Ofiqx Glucose Sensor (Freestyle Roberta 2 Sensor) kit Discontinued EACH .ROUTE .MEDSUPPLY September 04, 2023 11:00pm March 24, 2024 9:36am As directedStart: 19-99-6153Kehtc Glucose Sensor (Freestyle Roberta 2 Sensor) kit Active EACH .ROUTE .MEDSUPPLY September 05, 2023 12:00am As directedFreeStyle Roberta 2 Coplay - (20 sources)Start: 75-21-3109JctjJppay Roberta 2 Coplay - as directed SQ 5 x day for 365 days Dx E11.65 patient needs reader only Aug, ActiveFreeStyle Roberta 2 Sensor - (20 sources)FreeStyle Roberta 2 Sensor - as directed in vitro q 14 days for 84 days Dx E11.65 ActiveFreeStyle Roberta 2 Sensor - USE DIRECTED AND CHANGE EVERY 14 DAYS for 84 ActiveFreeStyle Roberta 2 Sensor - USE DIRECTED EVERY 14 DAYS for 84 ActiveFreeStyle Roberta 2 Sensor - as directed in vitro q 14 days for 84 days Active3 ml insulin aspart, human 100 unt/ml pen injector (20 sources)Insulin AnalogStart: 04-26-1567zvblziv aspart, niacinamide, 100 unit/mL (3 mL) insulin pen 01/21/2024 ActiveStart: 23-84-6284Ufwti: 09-05-2023 End: 78-26-9017Lskrqxv Aspart U-100 (Novolog Flexpen U-100 Insulin) 100 unit/mL (3 mL) insulin pen Discontinued SUBCUT September 05, 2023 12:00am September 10, 2023 8:11am FreeTextSi:40 ISS Subcutaneous QID; Note: SourceStatus: Not- TakingundefinedPRNHAS LISPRO, ASPART BACK UP; Refills: 1; Qty: 30 ml; Provider: Gabby De La Vega CStart: 61-82-7920Xqxkh FlexTouch 100 UNIT/ML ISS 1:40 Subcutaneous 4 x daily for 90 days Expect up to 50 u per day Jun, Active NovoLOG FlexPen 100 UNIT/ML 1:40 ISS Subcutaneous QID for 90 days HAS LISPRO, ASPART BACK UP Not-Taking/PRN3 ml insulin glargine 100 unt/ml pen injector (20 sources)Insulin AnalogStart: 65-03-5618qjncuw 50 [IU] by subcutaneous injection once daily in the eveningStart: 04-23-2024 End: 48-76-6995ltnvbs 60 [IU] by subcutaneous injection once daily in the eveningInsulin Glargine 100 unit/mL (3 mL) insulin pen Discontinued 40 UNIT SUBCUT Every evening 60 April 23, 2024 11:46am October 09, 2024 11:56am titrate to 60 u once daily, has written instructionsStart: 02-15-2024 End: 80-16-7964jpyttq 60 [IU] by subcutaneous injection once daily in the eveningInsulin Glargine 100 unit/mL (3 mL) insulin pen Discontinued 38 UNIT SUBCUT Every evening 60 February 15, 2024 1:39pm April 23, 2024 10:30am titrate to 60 u once daily, has written instructionsStart: 01-21-2024 End: 52-89-8474gpebna 60 [IU] by subcutaneous injection once daily in the eveningInsulin Glargine 100 unit/mL (3 mL) insulin pen Discontinued 40 UNIT SUBCUT Every evening 60 January 21, 2024 10:36am February 15, 2024 1:40pm titrate to 60 u once daily, has written instructionsStart: 09-10-2023 End: 30-71-5195wuivlk 60 [IU] by subcutaneous injection once daily in the eveningInsulin Glargine 100 unit/mL (3 mL) insulin pen Discontinued 42 UNIT SUBCUT Every evening 37.8 90 September 10, 2023 8:44am January 21, 2024 10:16am titrate to 60 u once daily, has written instructionsStart: 09-05-2023 End: 20-77-1364mkgbbj 42 [IU] by subcutaneous injection once daily in the eveningInsulin Glargine 100 unit/mL (3 mL) insulin pen Discontinued 42 UNIT SUBCUT Every evening September 05, 2023 12:00am September 10, 2023 8:47amStart: 12-19-2022 Lantus SoloStar 100 UNIT/ML 42 U Subcutaneous AT HS for 90 days TITRATE TO 60 U PER DAY Dec, ActiveStart: 13-07-5000Qykvwnc 100 UNIT/ML as directed Subcutaneous Expect up to 60 u per day (ISS 1:40) Jul, Activeinject 0.55 mL by subcutaneous injection once dailyinsulin glargine (LANTUS) 100 unit/mL injection Inject 0.55 mL (55 Units total) under the skin nightly. ActiveLantus SoloStar 100 UNIT/ML 45 u Subcutaneous AT HS for 90 days TITRATE TO 60 U PER DAY Activeinject 40 [IU] by subcutaneous injection once dailySemglee 100 UNIT/ML 40 u Subcutaneous daily for 90 days Titrate to 60 u per day Activeinject 45 [IU] by subcutaneous injection once dailySemglee 100 UNIT/ML 45 units Subcutaneous Daily insurance changed from Lantus to Semglee Activelidocaine 0.05 mg/mg medicated patch (1 source)Antiarrhythmic, Amide Local AnestheticStart: 61-08-9786vvyeo 1 dose transdermal route once daily, then apply 1 dose transdermal route every twelve hourslidocaine (LIDODERM) 5 % Indications: Closed fracture of multiple ribs of right side, initial encounter Place 1 patch on the skin daily. Remove & Discard patch within 12 hours or as directed by 30 patch 04/11/2024 Active OXcarbazepine 150 mg oral tablet (10 sources)Anti-epileptic AgentStart: 04-07-2024 End: 31-91-5577aqhi 1 tablet by mouth once dailyozempic (0.25 or 0.5 mg/dose) 2 mg/3ml solution pen-injector (4 sources)Ozempic (0.25 or 0.5 MG/DOSE) 2 MG/3ML 0.5 mg Subcutaneous weely for 90 days COPAY CARD Activepen needle, diabetic (Novofine 32) (9 sources)Start: 53-92-9044cpz needle, diabetic (Novofine 32) Active .Route September 04, 2023 11:00pmStart: 59-02-4208mvw needle, diabetic (Novofine 32) Active .Route September 05, 2023 12:00amStart: 15-51-9619jos needle, diabetic (Novofine 32) Active .ROUTE September 05, 2023 12:00amReliOn Prime Monitor - (20 sources)ReliOn Prime Monitor - as directed ActiveReliOn Prime Test - (20 sources)ReliOn Prime Test - as directed In Vitro Activerosuvastatin calcium 40 mg oral tablet (20 sources)HMG-CoA Reductase InhibitorStart: 16-89-2434kqyt 1 tablet by mouth once dailySemaglutide (15 sources)Start: 74-67-4360akwllb 1 mg by subcutaneous injection every week Semaglutide (Ozempic) 1 mg/dose (4 mg/3 mL) pen injector Active 1 MG SUBCUT every week 3 June 18, 2024 10:37am patient will have BRAYDEN voucher information Complies with drug therapyStart: 01-67-2502iglgiw 1 mg by subcutaneous injection every weekStart: 45-77-3460agcmuk 1 mg by subcutaneous injection every weekSemaglutide (Ozempic) 1 mg/dose (4 mg/3 mL) pen injector Active 1 MG SUBCUT every week 3 June 18, 2024 10:37am patient will have BRAYDEN voucher informationStart: 44-71-8451dlwmkz 1 mg by subcutaneous injection every weekSemaglutide (Ozempic) 1 mg/dose (4 mg/3 mL) pen injector Active 1 MG SUBCUT every week 3 June 18, 2024 9:37am patient will have BRAYDEN voucher informationStart: 01-21-2024 End: 53-19-9483nodxnj 1 mg by subcutaneous injection every weekSemaglutide (Ozempic) 1 mg/dose (4 mg/3 mL) pen injector Discontinued 1 MG SUBCUT every week 3 January 21, 2024 12:00am June 18, 2024 10:39amStart: 01-21-2024 End: 92-11-1503ozigck 1 mg by subcutaneous injection every weekSemaglutide (Ozempic) 1 mg/dose (4 mg/3 mL) pen injector Discontinued 1 MG SUBCUT every week 3 January 20, 2024 11:00pm June 18, 2024 9:39amStart: 01-21-2024 inject 1 mg by subcutaneous injection every weekSemaglutide (Ozempic) 1 mg/dose (4 mg/3 mL) pen injector Active 1 MG SUBCUT every week 3 January 21, 2024 12:00amsemaglutide (OZEMPIC SUBQ) (1 source)semaglutide (OZEMPIC SUBQ) Inject under the skin See Admin Instructions. ActiveSemaglutide (OZEMPIC, 0.25 OR 0.5 MG/DOSE, SC) (2 sources)Semaglutide (OZEMPIC, 0.25 OR 0.5 MG/DOSE, SC) Inject under the skin Activesodium chloride 0.9 % injection (1 source)Start: 71-26-2603sgcwih chloride 0.9 % injection 10 mL by intravenous push route as needed. 09/23/2016 Active Completed/Discontinued Medications MedicationDrug Class(es)DatesSig (Normalized)Sig (Original)Insulin Aspart U-100 (Novolog Flexpen U-100 Insulin) 100 unit/mL (3 mL) insulin pen (5 sources)Start: 09-05-2023 End: 03-42-4733Ewlhmje Aspart U-100 (Novolog Flexpen U-100 Insulin) 100 unit/mL (3 mL) insulin pen Discontinued SUBCUT September 05, 2023 12:00am September 10, 2023 8:11am FreeTextSi:40 ISS Subcutaneous QID; Note: SourceStatus: Not- TakingundefinedPRNHAS LISPRO, ASPART BACK UP; Refills: 1; Qty: 30 ml; Provider: Gabby De La Vega CStart: 09-05-2023 End: 46-83-7450Inqpwgc Aspart U-100 (Novolog Flexpen U-100 Insulin) 100 unit/mL (3 mL) insulin pen Discontinued SUBCUT September 04, 2023 11:00pm September 10, 2023 7:11am FreeTextSi:40 ISS Subcutaneous QID; Note: Source Status: Not- TakingundefinedPRNHAS LISPRO, ASPART BACK UP; Refills: 1; Qty: 30 ml; Provider: Gabby De La Vega CStart: 09-05-2023 End: 81-43-6009Xgwtgsx Aspart U-100 (Novolog Flexpen U-100 Insulin) 100 unit/mL (3 mL) insulin pen Discontinued SUBCUT September 05, 2023 12:00am September 10, 2023 8:11am FreeTextSi:40 ISS Subcutaneous QID; Note: SourceStatus: Not- Taking\PRNHAS LISPRO, ASPART BACK UP; Refills: 1; Qty: 30 ml; Provider: Gabby De La Vega C3 ml insulin degludec 100 unt/ml pen injector (9 sources)Insulin AnalogStart: 92-83-6828Zfzumvj FlexTouch 100 UNIT/ML 45 u Subcutaneous daily for 90 days September, Not-Taking/PRN3 ml insulin lispro- aabc 200 unt/ml pen injector (20 sources)Insulin AnalogStart: 06-11-2024 End: 91-13-8235Aynphuc Lispro-Aabc (Lyumjev Kwikpen U-200 Insulin) 200 unit/mL (3 mL) insulin pen Discontinued 1 sliding scale dose SUBCUT Use as Directed June 11, 2024 1:00am June 18, 2024 9:53am ISS1:40 ICR 1:10 ACHS TID. Expect up to 40 u per dayStart: 09-10-2023 End: 55-97-6957Vpgentm Lispro Discontinued 0 SUBCUT Use as Directed September 10, 2023 8:45am January 21, 2024 10:15am ISS 1:50, expect up to 30 u per dayStart: 07-05-1545Pygrkgn Lispro Active 0 SUBCUT Use as Directed September 10, 2023 8:45am ISS 1:50, expect up to 30u per dayStart: 09-10-2023 End: 43-75-5608Dqibvlk Lispro 100 unit/mL insulin pen Discontinued 0 SUBCUT Use as Directed September 10, 2023 8:45am January 21, 2024 10:15am ISS 1:50, expect up to 30 u per dayStart: 09-10-2023 End: 10-23-6366Ctchmoo Lispro Discontinued 1 sliding scale dose SUBCUT Use as Directed September 10, 2023 12:00am September 10, 2023 8:47aminject 50 [IU] by subcutaneous injection once as neededInsulin Lispro (1 Unit Dial) 100 UNIT/ML INJECT UNDER THE SKIN DIRECTED PER SLIDING SCALE 1:40 THREE TIMES DAILY BEFORE MEALS. EXPECT MAX DAILY DOSE OF 50 UNITS. for 90 Not-Taking/PRNHumaLOG KwikPen 100 UNIT/ML corrective scale 1:40 QID Subcutaneous 4 x daily for 90 days Expect up to 50 u per day ActiveHumaLOG KwikPen 100 UNIT/ML Scale 1:40 AC TID, HS >200 1/2 dose Subcutaneous as directed for 90 days Expect up to 50 u per day (HAS ASPART BACK UP) ActiveInsulin Lispro 100 unit/mL insulin pen (6 sources)Start: 09-10-2023 End: 56-11-6313Vlykaeo Lispro 100 unit/mL insulin pen Discontinued 0 SUBCUT Use as Directed September 10, 2023 8:45am January 21, 2024 10:15am ISS 1:50, expect up to 30 u per dayStart: 09-10-2023 End: 07-98-8766Luwfsnu Lispro 100 unit/mL insulin pen Discontinued 0 SUBCUT Use as Directed September 10, 2023 7:45am January 21, 2024 9:15am ISS 1:50, expect up to 30 u per dayStart: 09-10-2023 End: 54-83-1413Msqqjfw Lispro 100 unit/mL insulin pen Discontinued 1 sliding scale dose SUBCUT Use as Directed 2023 12:00am September 10, 2023 8:47am Start: 09-10-2023 End: 77-11-2019Lktuyls Lispro 100 unit/mL insulin pen Discontinued 1 sliding scale dose SUBCUT Use as Directed 2023 11:00pm September 10, 2023 7:47am Insulin Lispro-Aabc (Lyumjev Kwikpen U-200 Insulin) 200 unit/mL (3 mL) insulin pen (3 sources)Start: 06-11-2024 End: 78-34-4273Tacezoh Lispro-Aabc (Lyumjev Kwikpen U-200 Insulin) 200 unit/mL (3 mL) insulin pen Discontinued 1 sliding scale dose SUBCUT Use as Directed June 11, 2024 1:00am June 18, 2024 9:53am ISS1:40 ICR 1:10 ACHS TID. Expect up to 40 u per dayStart: 06-11-2024 End: 73-53-3592Ywwpcic Lispro-Aabc (Lyumjev Kwikpen U-200 Insulin) 200 unit/mL (3 mL) insulin pen Discontinued 1 sliding scale dose SUBCUT Use as Directed June 11, 2024 12:00am June 18, 2024 8:53am ISS 1:40 ICR 1:10 ACHS TID. Expect up to 40 u per daylisinopril 2.5 mg oral tablet (19 sources)Angiotensin Converting Enzyme InhibitorStart: 09-05-2023 End: 46-19-5264ywkf 1 tablet by mouth once dailyLisinopril 2.5 mg tablet Discontinued 2.5 MG PO Daily September 05, 2023 12:00am January 01, 2025 9:13am Start: 89-91-5764drvm 1 tablet by mouth every twenty-four hoursLisinopril 5 MG 1 tablet Orally Once a day for 90 days Feb, ActiveStart: 27-09-1783tatp 1 tablet by mouth every twenty-four hoursLisinopril 2.5 MG 1 tablet Orally Once a day for 30 days Escalate per PCP Dec, Kfwkcc19 hr metFORMIN hydrochloride 500 mg extended release oral tablet (20 sources)BiguanideStart: 09-10-2023 End: 48-78-0783qthq 1 tablet by mouth once daily at dinnerMetformin 500 mg tablet extended release 24 hr Discontinued 1500 MG PO Daily 270 90 April 23, 2024 11:48am June 18, 2024 9:56am 2 tabs with breakfast, one tab with dinnerStart: 01-40-9858rdvz 2 tablets by mouth once daily at breakfast, then take 1 tablet by mouth at dinnerMetformin Active 1500 MG PO Daily 270 90 September 10, 2023 8:41am 2 tabs with breakfast, one tab with dinnerStart: 09-10-2023 End: 54-76-8268Ppreyizna 500 mg tablet extended release 24 hr Discontinued 1000 MG PO .am September 10, 2023 8:12am April 23, 2024 1:37pm On Hold: combine in one entryStart: 09-10-2023 End: 88-85-2698tlgz 1 tablet by mouth once daily in the eveningMetformin 500 mg tablet extended release 24 hr Discontinued 500 MG PO Every evening September 10, 2023 12:00am September 10, 2023 8:47amStart: 09-05-2023 End: 48-41-2598Ehetfhexz 500 mg tablet extended release 24 hr Discontinued 1000 MG PO Twice daily September 05, 2023 12:00am September 10, 2023 8:14amStart: 09-05-2023 End: 01-30-5930Cbkpxgrla Active 1000 MG PO .am September 10, 2023 8:12am On Hold: combine in one entryStart: 60-59-7269xvdp 1 tablet by mouth twice daily at dinner, then take 2 tablets by mouth twice daily at mealtimemetFORMIN HCl ER 500 MG 1 tablet twice daily with breakfast and dinner Orally Twice daily for 30 day (s) Start 1 tab daily increasing weekly to 2 tabs twice daily with meals. Hold at tolerated dose ifside effects Nov, Activetake 2 tablets by mouth at mealtimemetFORMIN (Glucophage) 500 MG tablet Take 1,000 mg by mouth in the morning. Take with meals. Activetake 2 tablets by mouth in the morning, then take 1 tablet by mouth twice daily in the eveningmetFORMIN HCl ER 500 MG 2 TABLET AM, ONE TABLET PM Orally Twice daily for 90 days ActiveProdigy Autocode Blood Glucose - (5 sources)Start: 92-01-9463Scqzoqz Autocode Blood Glucose - as directed In Vitro QID for 90 days Jun, Not-TakingSemaglutide (18 sources)Start: 09-10-2023 End: 26-20-7315Tvdzinaldor (Ozempic) 0.25 mg or 0.5 mg (2 mg/3 mL) pen injector Discontinued 0.5 MG SUBCUT every week 9.568 September 10, 2023 8:40am April 23, 2024 1:37pm On Hold: dose changeStart: 09-10-2023 End: 51-65-6826Oiioyejyxrr (Ozempic) 0.25 mg or 0.5 mg (2 mg/3 mL) pen injector Discontinued 0.5 MG SUBCUT every week 9.568 September 10, 2023 7:40am April 23, 2024 12:37pm On Hold: dose changeStart: 90-89-4656Rgfvfpezekv (Ozempic) 0.25 mg or 0.5 mg (2 mg/3 mL) pen injector Active 0.5 MG SUBCUT every week 9.568 September 10, 2023 8:40am On Hold: dose changeStart: 70-07-0681Pdkdsgpuhbb (Ozempic) 0.25 mg or 0.5 mg (2 mg/3 mL) pen injector Active 0.5 MG SUBCUT every week 9.568 90 September 10, 2023 8:40amStart: 09-05-2023 End: 09-64-0323Xlrcmlkcaji (Ozempic) 0.25 mg or 0.5 mg (2 mg/3 mL) pen injector Discontinued MG SUBCUT August 11:00pm September 10, 2023 7:47amStart: 09-05-2023 End: 77-38-2953Grqzclhfhpm (Ozempic) 0.25 mg or 0.5 mg (2 mg/3 mL) pen injector Discontinued MG SUBCUT September 05, 2023 12:00am September 10, 2023 8:47amSemglee 100 UNIT/ML (20 sources)inject 45 [IU] by subcutaneous injection once daily as neededSemglee 100 UNIT/ML 45 u Subcutaneous Daily for 90 days Expect up to 60 u per day Not-Taking/PRNinject 45 [IU] by subcutaneous injection once dailySemglee 100 UNIT/ML 45 u Subcutaneous Daily for 90 days Expect up to 60 u per day Not-Taking inject 45 [IU] by subcutaneous injection once daily at bedtimeSemglee 100 UNIT/ML 45 units Subcutaneous QHS insurance changed from Lantus to Semglee Activeinject 45 [IU] by subcutaneous injection once dailySemglee 100 UNIT/ML 45 u Subcutaneous Daily for 90 days Expect up to 60 u per day Activeinject 40 [IU] by subcutaneous injection once dailySemglee 100 UNIT/ML 40 u Subcutaneous daily for 90 days Titrate to 60 u per day Activeinject 45 [IU] by subcutaneous injection once dailySemglee 100 UNIT/ML 45 units Subcutaneous Daily insurance changed from Lantus to Semglee Active Problems Active Problems Problem ClassificationProblemDateDocumented DateEpisodic/Chronic Administrative/social admission (20 sources)Dietary counseling and surveillance; Translations: [Patient encounter status]Onset: 07-20-2021 Resolved: 26-50-4248AicbwooqBpshhirb mellitus with complications (20 sources)Hyperglycemia due to type 2 diabetes mellitus; Translations: [Type 2 diabetes mellitus with hyperglycemia]Onset: 07-20-2021 Resolved: 42-52-2688OffecbfKsrbaljo mellitus without complication (1 source)Type 2 diabetes mellitus without complications; Translations: [TYPE 2 DM WITHOUT COMPLICATIONS]Onset: 21-50-0016YekqhltKpxautbbe of lipid metabolism (20 sources)Hyperlipidemia; Translations: [Hyperlipidemia, unspecified]Onset: 07-20-2021 Resolved: 74-69-9466JtdqvorO Codes: Fall (2 sources)FallOnset: 02-78-3768Ilhpwzavx hypertension (20 sources)Hypertensive disorder; Translations: [Essential (primary) hypertension]Onset: 07-20-2021 Resolved: 29-54-5506RrvusuwKuaupkvg (5 sources)Atherosclerosis of [place] arteries of extremities with gangrene, right leg; Translations: [Criticallower limb ischemia ]Onset: 09-25-2024 82-61-0397EdxinjbCwtejxujbwkzd symptoms and ill-defined conditions (20 sources)Proteinuria, unspecified; Translations: [Persistent albuminuria] Onset: 08-29-0742DfqfsndlIsdjislqx arthritis and osteomyelitis (except that caused by tuberculosis or sexually transmitted disease) (1 source)Osteomyelitis; Translations: [Osteomyelitis, unspecified]01-07-2025 ChronicMalaise and fatigue (4 sources)Weakness; Translations: [WEAKNESS]Onset: 09-94-4759Doxykpog Nutritional deficiencies (20 sources)Vitamin D deficiency; Translations: [Vitamin D deficiency, unspecified]Onset: 07-20-2021 Resolved: 41-83-7739ZtpgyfcOnjn wounds of extremities (5 sources)Amputated big toe; 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, initial encounter]49-75-1477PihptmwRnjhjqh on above:09-23-2024 (est)Other aftercare (17 sources)penitentiary (current) use of insulin; Translations: [Long-term (current) use of insulin]Onset: 04-12-2020 Resolved: 14-40-7821YhxfcahyLaipx aftercare (20 sources)Long-term 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 insulin; 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]37-26-4975LjyuxznyRiznq circulatory disease (9 sources)Low blood pressure; Translations: [Hypotension, unspecified] 79-91-4464GxsfdkeeLisuq connective tissue disease (2 sources)Neuralgia; Translations: [Neuralgia and neuritis, unspecified] 01-76-8200PtnizyflErmyr fractures (7 sources)Fracture of multiple ribs ; Translations: [Multiple fractures of ribs, unspecified side, initial encounter for closed fracture]85-41-9475Cvejerba Comment on above:Patient states has 3 cracked ribs, fell first week April 2024Other nervous system disorders (20 sources)Neuropathy; Translations: [Polyneuropathy, unspecified]ChronicOther nutritional; endocrine; and metabolic disorders (4 sources)Body mass index (BMI) 27.0-27.9, adultOnset: 07-20-2021 Resolved: 54-51-4779FvlvobcuVqkvc nutritional; endocrine; and metabolic disorders (3 sources)Body mass index (BMI) 28.0-28.9, adultEpisodicOther nutritional; endocrine; and metabolic disorders (1 source)Body mass index (BMI) 26.0-26.9, adultEpisodicOther nutritional; endocrine; and metabolic disorders (7 sources)Body mass index (BMI) 25.0-25.9, adult; Translations: [Body Mass Index 25.0-25.9, adult]EpisodicOther nutritional; endocrine; and metabolic disorders (14 sources)Overweight in adulthood with body mass index of 25 or more but less than 30; Translations: [Body mass index (BMI) 25.0-25.9, adult]09-05-2023 EpisodicOther skin disorders (14 sources)Nail deformity; Translations: [Other nail disorders]Episodic Peripheral and visceral atherosclerosis (4 sources)Peripheral vascular disease, unspecified; Translations: [Peripheral vascular disease, unspecified]Onset: 431635-69-3782YohnwawImxztnslwdl; intervertebral disc disorders; other back problems (2 sources)Degeneration of cervical intervertebral disc; Translations: [Other cervical disc degeneration, unspecified cervical region]36-63-1785Whfkihi Unclassified (1 source)COVID-19; Translations: [COVID-19]Onset: 01-58-8762Wtxtnbwkgkaf (1 source)pad critical limb ischemiaOnset: 77-22-8077Pabfjekzajer (1 source)Gangrene, PAD. Per Dr. Spears requesting pt to be seenOnset: 97-46-3955Xfkfkcnfcqwj (2 sources)I10 - Essential (primary) hypertension,R80.9 - Proteinuria, unspecified Past or Other Problems Problem ClassificationProblemDateDocumented DateEpisodic/ChronicE Codes: Fall (1 source)Fall on same level from slipping, tripping and stumbling without subsequent striking against object, initial encounter; Translations: [Fall on same level from slipping, tripping and stumbling withoutsubsequent striking against object, initial encounter]Onset: 67-52-0742SgjmrrzhWhuoycrp (4 sources)Gangrene, not elsewhere classified; Translations: [Gangrenous disorder]Onset: 165579-26-9805KstwtnlyVxlrq circulatory disease (1 source)Other specified symptoms and signs involving the circulatory and respiratory systems; Translations:[Other specified symptoms and signs involving the circulatory and respiratory systems]Onset: 84-56-3504EqhvrpjzJekgb fractures (1 source)Multiple fractures of ribs, right side, initial encounter for closed fracture; Translations: [Multiple fractures of ribs, right side, initial encounter for closed fracture]Onset: 71-97-6879XxdjgosqWmuf and subcutaneous tissue infections (1 source)Cellulitis of face; Translations: [Cellulitis of face]Onset: 199970-19-4415Hhzibldb Results Test NameValueInterpretationReference RangeFacilityLIPID PROFILEon 02-25-2025 Cholesterol [Mass/Vol]166 mg/oVGxgepq566-309OizQugxbx [facility] HospitalComment on above:Performed By: #### LIPR #### [facility] ([facility]) [address] [place] [address] VIRCholesterol in HDL [Mass/Vol]73 mg/dLNormal>39ProSt. David'S Medical CenterComment on above:Result Comment: HDL <40 mg/dL - High Risk HDL > or = 40mg/dL- Desirable HDL >60 mg/dL - Negative RiskPerformed By: #### LIPR #### [facility] ([facility]) [address] [place] [address] VIRCholesterol in LDL [Mass/Vol]73 mg/dLNormal<130[facility] HospitalComment on above:Result Comment: LDL <100 mg/dL - Desirable LDL >160 mg/dL - High RiskPerformed By: #### LIPR #### [facility] ([facility]) [address] [place] [address] VIRCHOLESTEROL:HDL2.6Ynwwfv3.0-5.0[facility] Comment on above:Performed By: #### LIPR #### [facility] ([facility]) [address] [place] [address] VIRTriglyceride [Mass/Vol]99 mg/uRVermwl37-553HuxYftdlc [facility] HospitalComment on above:Performed By: #### LIPR #### [facility] ([facility]) [address] [place] [address] VIRVERY LOW HRZRUVZSMSH08 mg/dLNormal0-30ProSt. David'S Medical CenterComment on above:Performed By: #### LIPR #### [facility] ([facility]) [address] [place] [address] VIRVITAMIN B12on 77-07-6519Rjjlufojj (Vitamin B12) [Mass/Vol] 188 pg/aKZpktyu457-481DceRmxikvWilson Street HospitalComment on above:Performed By: #### B12 #### [facility] ([facility]) [address] [place] [address] VIRVITAMIN D 25 HYDROXYon 50-30-6042TTVLKZZ D 25 HYD TOT30.9 ng/mLLmngwd18.0-100.0[facility] HospitalComment on above:Order Comment: Vitamin D status 25 [place] Vitamin D Deficiency <20 ng/mL Insufficiency 20-29 ng/mL Sufficiency 30-100 ng/mL Toxicity >100 ng/mL NOTE: A pediatric reference range has not been established by the plugger worker of this kit. The [place] [employer] recommends a Vitamin D level of = or >20ng/mL in infants and children.Performed By: #### VITD #### [facility] ([facility]) [address] [place] [address] VIRPathology Request for Lab Corpon 14-78-8530Psimiqqqw Request for Lab CorpNormBroward Health Coral Springs Physician GroupComment on above:Result Comment: See report. Scanned copy available in EMR. PERFORMED BY: [facility] [address] [place] [address] PATHOLOGIST PERSONAL DRIVER GOOD RIDDLE M.D.Performed By: #### PATH TO [facility] #### [place] [address] USANo Panel InformationOrdered By: Yolette Ge on 42-43-5347Lusiivz Rgviupd668ZjmqwynlpSumma Health Akron CampusLon 11-12-2024L Specimen: [id number] Received: 11/13/24 Status: LORENA Childs Num: [id number] Spec Type: Surgical Subm Dr: Mayra Spears,AN, MS Tissues: A DIGIT AMPUTATION (BONE FROM R 2nd TOE) Procedures: HE/2, Gross/Micro L4, Decalcification Age/ Patient Sex Location Account Attending Physician Lan Rodriguez 64/M LABELL [id number] Mayra Spears DPM, MS SPEC NUM: [id number] RECD: 11/13/24 STATUS: LORENA COSTELLOSandeep NUM: [id number] SCOTT: 11/12/24 [facility] DR: Mayra Spears DPM, MS ENTERED: 11/13/[address]: Nehemias,Lab SPEC TYPE: Surgical DEPT: THANH MURRAY ENTERED BY: [id number] RECV BY: [id number] ORDERED: HE/2, Gross/Micro L4, Decalcification ORDERED: HE/2, [...] soft tissue submitted in A2. (2, , [id number] A) CPT Codes 45220, 53294 Specimen: [id number] Received: 11/13/24 Status: LORENA Costellosandeep Num: [id number] Spec Type: Surgical Subm Dr: Mayra Spears,AN, MS Tissues: A DIGIT AMPUTATION (BONE FROM R 2nd TOE) Procedures: HE/2, Gross/Micro L4, Decalcification Patient: Lan Rodriguez SR [id number] (Continued) Signed (signature on file) Uziel Lozano MD 11/18/24 8458 [facility] Physician GroupNo Panel InformationOrdered By: Mayra Spears on 60-69-2725Oqpsnoxnfndeh Pathology TestSee commentFirelands Regional Medical CenterComment on above:See report. Scanned copy available in EMR.Pathology Request for Lab Corpon 78-11-8661Cqykjwhjz Request for Lab David NormalThe [facility] Physician GroupComment on above:Order Comment: BONE 2ND RT TOEResult Comment: See report. Scanned copy available in EMR. PERFORMED BY: [facility] [address] [place] [id number] PATHOLOGIST PERSONAL DRIVER GOOD RIDDLE M.D.Performed By: #### [facility] #### [facility] [address] [place] [id number] USAPOCT BUN, CREATon 97-20-8885Aojvmkzfig [Mass/Vol]1.1 mg/dL Normal0.7-1.2PGalion HospitalComment on above:Performed By: #### IBC #### [facility] ([facility]) [address] [place] [address] VIRGFR/1.73 sq M.predicted among non-blacks MDRD (S/P/Bld) [Vol rate/Area]75 mL/min/{1.73_m2}Normal>=60ProBarney Children'S Medical CenterComment on above:Result Comment: Reported eGFR is based on the CKD-EPI 2020 equation that does not use a race coefficient.Performed By: #### IBC #### [facility] ([facility]) [address] [place] [address] VIRUrea nitrogen [Mass/Vol]17 mg/dLNormal6-27ProBarney Children'S Medical CenterComment on above:Performed By: #### IBC #### [facility] ([facility]) [address] [place] [address] VIRPORTABLE GLUCOSEon 30-63-4073Ufriljy [Mass/Vol]89 mg/dL Cacfdk20-88JntWdxybuBarney Children'S Medical CenterComment on above:Performed By: #### IGLU #### [facility] ([facility]) [address] [place] [address] LWQObS4e HPLC (Bld) [Mass fraction]on 05-55-1374YfV4y (Bld) [Mass fraction]6.6 %[facility] CampusNo Panel Informationon 91-54-6421Ovzwjki Mffskjg980FzbsozxfdSumma Health Akron CampusBasophils Auto (Bld) [#/Vol]on 78-13-9360Gubwzjjth (Bld) [#/Vol]Automated basophil count0.0-0.1 [facility] CampusBasophils (Bld) [#/Vol]0.1 10 3/uL0.0-0.1 [facility] CampusBasophils/100 WBC Auto (Bld)on 09-23-2024 Basophils/100 WBC (Bld)Automated basophil %0.2-2.0[facility] CampusBasophils/100 WBC (Bld)0.7 %0.2-2.0[facility] Eosinophils/100 WBC Auto (Bld)on 35-57-6040Evuxjusfcrw/100 WBC (Bld)Automated eosinophil %Low0.9-7.0[facility] CampusEosinophils/100 WBC (Bld) 0.2 %Low0.9-7.0[facility] CampusErythrocyte distribution width Auto (RBC) [Ratio]on 88-69-4066Ikjotkuwdfw distribution width (RBC) [Ratio] Erythrocyte distribution width [Ratio] by Automated count11.0-15.0[facility] CampusErythrocyte distribution width (RBC) [Ratio]11.0 % 11.0-15.0[facility] CampusEstimated glomerular filtration rate (GFR) non- Americanon 31-14-6203JHV/1.73 sq M.predicted among non-blacks MDRD (S/P/Bld) [Vol rate/Area]Estimated glomerular filtration rate (GFR) non- >=60 mL/min/1.73m 2FMercy Health West HospitalGFR/1.73 sq M.predicted among non-blacks MDRD (S/P/Bld) [Vol rate/Area]mL/min/{1.73_m2}>=60 mL/min/1.[address]m [address] [place], [place] [address]Globulin Calc (S) [Mass/Vol]on 58-76-0540Humbfgfh (S) [Mass/Vol]Serum globulin measurement by calculation (mass/volume)[facility] CampusGlobulin (S) [Mass/Vol]5.6 g/dL [facility] CampusHematocrit Auto (Bld) [Volume fraction]on 07-46-9567Bturrjdyvu (Bld) [Volume fraction]Hematocrit [Volume Fraction] of Blood by Automated aflqgXgc04.0-54.0[facility] CampusHematocrit (Bld) [Volume fraction]34.7 %Low42.0-54.0[facility] Hemoglobin [Mass/volume] in Bloodon 65-96-2184Tymsxcshha (Bld) [Mass/Vol] Hemoglobin [Mass/volume] in FoislGaw42.0-18.0[facility] Hemoglobin (Bld) [Mass/Vol]11.9 g/dLLow14.0-18.0[facility] CampusLon 09-23-2024L Specimen: [id number] Received: 09/23/24 Status: LORENA Childs Num: [id number] Spec Type: Surgical Subm Dr: Mayra Spears,AN, MS Tissues: A DIGIT AMPUTATION (RIGHT DISTAL PHALANX) B DIGIT AMPUTATION (RIGHT PROXIMAL PHALANX) Procedures: HE/3, Gross/Micro L4/2, Decalcification/2 Age/ Patient Sex Location Account Attending Physician Lan Rodriguez 64/M LABELL [id number] Mayra Spears DPM, MS SPEC NUM: [id number] RECD: 09/23/24 STATUS: LORENA CHILDS NUM: [id number] SCOTT: 09/23/24 [facility] DR: Mayra Spears DPM, MS ENTERED: 09/23/24-[address] [facility] [address]: Nehemias,Lab SPEC TYPE: Surgical DEPT: THANH MURRAY ENTERED BY: [id number] RECV BY: [id number] ORDERED: HE/3, Gross/Micro L4/2, Decalcification/2 ORDERED: HE/3, [...] cellulitis, dry gangrene right great toe Specimen: [id number] Received: 09/23/24 Status: LORENA Childs Num: [id number] Spec Type: Surgical Subm Dr: Mayra Spears,AN, MS Tissues: A DIGIT AMPUTATION (RIGHT DISTAL PHALANX) B DIGIT AMPUTATION (RIGHT PROXIMAL PHALANX) Procedures: HE/3, Gross/Micro L4/2, Decalcification/2 Patient: Lan Rodriguez SR [id number] (Continued) Specimen: [id number] Received: 09/23/24 (Continued) Signed (signature on file)___Baljinder Mingo Mejia MD 09/26/24 1340 Specimen: [id number] Received: 09/23/24 Status: LORENA Childs Num: [id number] Spec Type: Surgical Subm Dr: Mayra Spears,DPSaud, MS Tissues: A DIGIT AMPUTATION (RIGHT DISTAL PHALANX) B DIGIT AMPUTATION (RIGHT PROXIMAL PHALANX) Procedures: HE/3, Gross/Micro L4/2, Decalcification/2 Patient: Lan Rodriguez [id number] (Continued) Specimen: [id number] Received: 09/23/24 (Continued) Gross Description Part A [...] cm from the proximal skin margin. A leasing representative section of the indurated area and underlying distal phalanx is submitted in A1 after decalcification with tangential cross-sections of the proximal skin margin submitted in A2. (2, ss, S28-308 A) Part B is received in formalin [...] submitted in B1 after decalcification. (1, ss, S20-541 B) Microscopic Description Microscopic examination is performed CPT Codes 21597s9 02888i1 Specimen: [id number] Received: 09/23/ (more content not included)...NormalThe [facility] Physician GroupLaboratory - Chemistry and Chemistry - challengeon 93-12-5251Zhsewyt [Mass/Vol]1.8 g/dLLow3.4-5.0[facility] ALP [Catalytic activity/Vol]76 U/C79-218SvjgeskqxSumma Health Akron CampusALT [Catalytic activity/Vol]15 U/XGab73-24AsqckhgkxSumma Health Akron CampusAST [Catalytic activity/Vol]22 U/D97-50IexlihdjnSumma Health Akron CampusBilirubin [Mass/Vol]0.3 mg/dL0.2-1.0[facility] CampusCalcium [Mass/Vol]9.0 mg/dL8.5-10.1FMercy Health West HospitalChloride [Moles/Vol]103 mmol/L 98-107[facility] CampusCO2 [Moles/Vol]26.0 mmol/L21.0-32.0 [facility] CampusCreatinine [Mass/Vol]0.94 mg/dL0.70-1.30 [facility] CampusGFR/1.73 sq M.predicted MDRD (S/P/Bld) [Vol rate/Area]mL/min/{1.73_m2}>=60 mL/min/1.73m 2FMercy Health West Hospital Glucose [Mass/Vol]124 mg/gDUkmq73-458VlarzmbwxSumma Health Akron CampusPotassium [Moles/Vol]4.1 mmol/L3.5-5.1FMercy Health West HospitalProtein [Mass/Vol] 7.4 g/dL6.4-8.2FOhioHealth Hardin Memorial Hospitalodium [Moles/Vol]139 mmol/L 136-145[facility] CampusUrea nitrogen [Mass/Vol]22.0 mg/dLHigh 7.0-18.0[facility] CampusUrea nitrogen/Creatinine [Mass ratio] 23.4 mg/mgSumma Health Akron CampusLaboratory - Hematology and Cell countson 51-41-1405Qbcscxaw granulocytes/100 WBC (Bld)0.3 %0.0-0.5FMercy Health West HospitalLeukocytes [#/volume] corrected for nucleated erythrocytes in Blood by Automated counon 91-32-0852RTE corrected for nucl RBC Auto (Bld) [#/Vol]Leukocytes [#/volume] corrected for nucleated erythrocytes in Blood by Automated coun4.0-11.0[facility] CampusWBC corrected for nucl RBC Auto (Bld) [#/Vol]9.1 10 3/uL4.0-11.0[facility] CampusLymphocytes Auto (Bld) [#/Vol]on 69-43-3185Meqythdsntj (Bld) [#/Vol] Lymphocytes [#/volume] in Blood by Automated count1.2-3.8[facility] CampusLymphocytes (Bld) [#/Vol]1.6 10 3/uL1.2-3.8[facility] CampusLymphocytes/100 WBC Auto (Bld)on 93-03-0546Dvnwkrwnvdu/100 WBC (Bld)Lymphocytes/100 leukocytes in Blood by Automated dmlvsEkm99.5-60.0[facility] CampusLymphocytes/100 WBC (Bld)17.6 %Low20.5-60.0[facility] Auto (RBC) [Entitic mass]on 17-40-8065ISG (RBC) [Entitic mass]MCH [Entitic mass] by Automated count25.9-34.0[facility] (RBC) [Entitic mass]30.7 pg25.9-34.0[facility] CampusMCHC Auto (RBC) [Mass/Vol]on 28-73-7339JZAO (RBC) [Mass/Vol]MCHC [Mass/volume] by Automated count29.9-35.2FMercy Health – The Jewish HospitalHC (RBC) [Mass/Vol]34.3 g/dL29.9-35.2FMercy Health – The Jewish HospitalV Auto (RBC) [Entitic vol]on 47-18-0048TRE (RBC) [Entitic vol]MCV [Entitic volume] by Automated count80.0-94.0[facility] Health InstituteV (RBC) [Entitic vol] 89.7 fL80.0-94.0[facility] CampusMonocytes Auto (Bld) [#/Vol]on 68-50-7315Baerqshzj (Bld) [#/Vol]Automated blood monocyte countHigh0.3-0.8 [facility] CampusMonocytes (Bld) [#/Vol]1.4 10 3/uLHigh0.3-0.8 [facility] CampusMonocytes/100 WBC Auto (Bld)on 09-23-2024 Monocytes/100 WBC (Bld)Automated monocyte %High1.7-12.0[facility] CampusMonocytes/100 WBC (Bld)15.6 %High1.7-12.0[facility] CampusNeutrophils Auto (Bld) [#/Vol]on 79-63-3490Epapikjsvee (Bld) [#/Vol]Neutrophils [#/volume] in Blood by Automated count1.4-6.5FMercy Health West HospitalNeutrophils (Bld) [#/Vol]6.0 10 3/uL1.4-6.5FMercy Health West HospitalNeutrophils/100 WBC Auto (Bld)on 09-23-2024 Neutrophils/100 WBC (Bld)Automated neutrophil %43.0-75.0[facility] CampusNeutrophils/100 WBC (Bld)65.6 %43.0-75.0[facility] CampusNo Panel Informationon 32-74-7242T-Reactive Protein, Quantitative3.19 mg/dLHigh<=0.50[facility] CampusEosinophils # (Auto)0.0 10 3/uL 0.0-0.7FMercy Health West HospitalImmature Granulocyte # (Auto)0.03 10 3/uL0.00-0.03[facility] CampusPlatelet mean volume Auto (Bld) [Entitic vol]on 04-42-4923Demxhyyd mean volume (Bld) [Entitic vol]Platelet mean volume [Entitic volume] in Blood by Automated count9.5-13.5FMercy Health West HospitalPlatelet mean volume (Bld) [Entitic vol]9.5 fL9.5-13.5FMercy Health West HospitalPlatelets Auto (Bld) [#/Vol]on 61-68-2839Gmgjjerrr (Bld) [#/Vol]Platelets [#/volume] in Blood by Automated ofkpo614-960NhkjbyhfwSumma Health Akron CampusPlatelets (Bld) [#/Vol]339 10 3/wC522-123XokixrckySumma Health Akron CampusRBC Auto (Bld) [#/Vol]on 41-12-0302CZC (Bld) [#/Vol]Erythrocytes [#/volume] in Blood by Automated countLow4.70-6.10[facility] CampusRBC (Bld) [#/Vol]3.87 10 6/uLLow4.70-6.10[facility] Serum or plasma albumin/globulin mass ratioon 93-96-0270Yaeyklm/Globulin [Mass ratio]Serum or plasma albumin/globulin mass ratioSumma Health Akron CampusAlbumin/Globulin [Mass ratio]0.3 {ratio}[facility] Serum or plasma anion gap determinationon 69-80-9695Idvzi gap [Moles/Vol]Serum or plasma anion gap determinationSumma Health Akron CampusAnion gap [Moles/Vol]14.1 mmol/LFMercy Health West HospitalBasophils Auto (Bld) [#/Vol]on 47-95-2760Eaqxurevy (Bld) [#/Vol]Automated basophil count0.0-0.1 [facility] CampusBasophils (Bld) [#/Vol]0.1 10 3/uL0.0-0.1 [facility] CampusBasophils/100 WBC Auto (Bld)on 09-22-2024 Basophils/100 WBC (Bld)Automated basophil %0.2-2.0[facility] CampusBasophils/100 WBC (Bld)0.6 %0.2-2.0[facility] Eosinophils/100 WBC Auto (Bld)on 60-71-8256Nfqsefcqfip/100 WBC (Bld)Automated eosinophil %Low0.9-7.0[facility] CampusEosinophils/100 WBC (Bld) 0.2 %Low0.9-7.0[facility] CampusErythrocyte distribution width Auto (RBC) [Ratio]on 20-25-5036Lfozlgclioc distribution width (RBC) [Ratio] Erythrocyte distribution width [Ratio] by Automated count11.0-15.0[facility] CampusErythrocyte distribution width (RBC) [Ratio]11.1 % 11.0-15.0[facility] CampusEstimated glomerular filtration rate (GFR) non- Americanon 75-90-0933FQW/1.73 sq M.predicted among non-blacks MDRD (S/P/Bld) [Vol rate/Area]Estimated glomerular filtration rate (GFR) non- >=60 mL/min/1.73m [address] [place], [place] [address]GFR/1.73 sq M.predicted among non-blacks MDRD (S/P/Bld) [Vol rate/Area]mL/min/{1.73_m2}>=60 mL/min/1.73m [address] [place], [place] [address]Globulin Calc (S) [Mass/Vol]on 89-01-8656Hflljsyx (S) [Mass/Vol]Serum globulin measurement by calculation (mass/volume)[facility] CampusGlobulin (S) [Mass/Vol]5.4 g/dL [facility] CampusHematocrit Auto (Bld) [Volume fraction]on 61-77-4887Ahiqklbrmf (Bld) [Volume fraction]Hematocrit [Volume Fraction] of Blood by Automated onmdvWhr93.0-54.0[facility] CampusHematocrit (Bld) [Volume fraction]33.8 %Low42.0-54.0[facility] Hemoglobin [Mass/volume] in Bloodon 57-40-4291Rmdlznxylo (Bld) [Mass/Vol] Hemoglobin [Mass/volume] in PodejFkk93.0-18.0[facility] Hemoglobin (Bld) [Mass/Vol]11.8 g/dLLow14.0-18.0[facility] CampusLaboratory - Chemistry and Chemistry - challengeon 39-00-4109Sfdpqii [Mass/Vol]1.9 g/dLLow3.4-5.0[facility] CampusALP [Catalytic activity/Vol]74 U/X55-966TbltkmoykSumma Health Akron CampusALT [Catalytic activity/Vol]15 U/LOyb60-38AhcqgmjebSumma Health Akron CampusAST [Catalytic activity/Vol]20 U/J85-97YnhwgwogqSumma Health Akron CampusBilirubin [Mass/Vol]0.4 mg/dL0.2-1.0[facility] CampusCalcium [Mass/Vol]8.7 mg/dL 8.5-10.1FMercy Health West HospitalChloride [Moles/Vol]102 mmol/L98-107 [facility] CampusCO2 [Moles/Vol]23.7 mmol/L21.0-32.0[facility] CampusCreatinine [Mass/Vol]0.99 mg/dL0.70-1.30[facility] CampusGFR/1.73 sq M.predicted MDRD (S/P/Bld) [Vol rate/Area] mL/min/{1.73_m2}>=60 mL/min/1.73m 2FMercy Health West HospitalGlucose [Mass/Vol]87 mg/mG50-433BpbnskxogSumma Health Akron CampusPotassium [Moles/Vol] 4.4 mmol/L3.5-5.1FMercy Health West HospitalProtein [Mass/Vol]7.3 g/dL 6.4-8.2FOhioHealth Hardin Memorial Hospitalodium [Moles/Vol]137 mmol/Q203-221 [facility] CampusUrea nitrogen [Mass/Vol]21.0 mg/dLHigh7.0-18.0 [facility] CampusUrea nitrogen/Creatinine [Mass ratio]21.2 mg/mg [facility] CampusLaboratory - Hematology and Cell countson [id number] granulocytes/100 WBC (Bld)0.4 %0.0-0.5FMercy Health West HospitalLeukocytes [#/volume] corrected for nucleated erythrocytes in Blood by Automated counon 97-68-0514GFR corrected for nucl RBC Auto (Bld) [#/Vol]Leukocytes [#/volume] corrected for nucleated erythrocytes in Blood by Automated coun4.0-11.0[facility] CampusWBC corrected for nucl RBC Auto (Bld) [#/Vol]9.6 10 3/uL4.0-11.0[facility] Lymphocytes Auto (Bld) [#/Vol]on 61-76-4458Thnobznmmjm (Bld) [#/Vol]Lymphocytes [#/volume] in Blood by Automated count1.2-3.8[facility] Lymphocytes (Bld) [#/Vol]1.7 10 3/uL1.2-3.8[facility] Lymphocytes/100 WBC Auto (Bld)on 37-31-2557Fziyhqrdlwg/100 WBC (Bld) Lymphocytes/100 leukocytes in Blood by Automated lrscpYld06.5-60.0[facility] CampusLymphocytes/100 WBC (Bld)17.7 %Low20.5-60.0[facility] Auto (RBC) [Entitic mass]on 55-28-9114MWH (RBC) [Entitic mass]MCH [Entitic mass] by Automated count25.9-34.0[facility] (RBC) [Entitic mass]31.3 pg25.9-34.0[facility] CampusMC Auto (RBC) [Mass/Vol]on 77-87-4105AMHY (RBC) [Mass/Vol]MCHC [Mass/volume] by Automated count29.9-35.2FMercy Health West HospitalMCHC (RBC) [Mass/Vol]34.9 g/dL29.9-35.2FMercy Health West HospitalMCV Auto (RBC) [Entitic vol]on 00-65-7582IWF (RBC) [Entitic vol]MCV [Entitic volume] by Automated count80.0-94.0[facility] InstituteV (RBC) [Entitic vol] 89.7 fL80.0-94.0[facility] CampusMonocytes Auto (Bld) [#/Vol]on 43-53-0310Evckdtslu (Bld) [#/Vol]Automated blood monocyte countHigh0.3-0.8 [facility] CampusMonocytes (Bld) [#/Vol]1.2 10 3/uLHigh0.3-0.8 [facility] CampusMonocytes/100 WBC Auto (Bld)on 09-22-2024 Monocytes/100 WBC (Bld)Automated monocyte %High1.7-12.0[facility] CampusMonocytes/100 WBC (Bld)12.8 %High1.7-12.0[facility] CampusNeutrophils Auto (Bld) [#/Vol]on 46-82-1808Wakyigeebvz (Bld) [#/Vol]Neutrophils [#/volume] in Blood by Automated countHigh1.4-6.5FMercy Health West HospitalNeutrophils (Bld) [#/Vol]6.6 10 3/uLHigh1.4-6.5FMercy Health West HospitalNeutrophils/100 WBC Auto (Bld)on 09-22-2024 Neutrophils/100 WBC (Bld)Automated neutrophil %43.0-75.0[facility] CampusNeutrophils/100 WBC (Bld)68.3 %43.0-75.0[facility] CampusNo Panel Informationon 97-03-0048Bkrjwkwzfe Level Wiuaug04.3 ug/mL 5.0-20.0[facility] CampusC-Reactive Protein, Quantitative4.29 mg/dLHigh<=0.50[facility] CampusEosinophils # (Auto)0.0 10 3/uL 0.0-0.7FMercy Health West HospitalImmature Granulocyte # (Auto)0.04 10 3/uLHigh0.00-0.03[facility] CampusPlatelet mean volume Auto (Bld) [Entitic vol]on 48-83-7837Pzxsiqoq mean volume (Bld) [Entitic vol]Platelet mean volume [Entitic volume] in Blood by Automated count9.5-13.5FMercy Health West HospitalPlatelet mean volume (Bld) [Entitic vol]9.6 fL9.5-13.5 [facility] CampusPlatelets Auto (Bld) [#/Vol]on 09-22-2024 Platelets (Bld) [#/Vol]Platelets [#/volume] in Blood by Automated qclpo538-091 [facility] CampusPlatelets (Bld) [#/Vol]334 10 3/uU184-730 [facility] CampusRBC Auto (Bld) [#/Vol]on 12-36-9532FGI (Bld) [#/Vol]Erythrocytes [#/volume] in Blood by Automated countLow4.70-6.10[facility] CampusRBC (Bld) [#/Vol]3.77 10 6/uLLow4.70-6.10[facility] Hospitalerum or plasma albumin/globulin mass ratioon 09-22-2024 Albumin/Globulin [Mass ratio]Serum or plasma albumin/globulin mass ratio [facility] CampusAlbumin/Globulin [Mass ratio]0.4 {ratio} [facility] Hospitalerum or plasma anion gap determinationon 50-94-5982Rxjxc gap [Moles/Vol]Serum or plasma anion gap determinationSumma Health Akron CampusAnion gap [Moles/Vol]15.7 mmol/LFMercy Health West HospitalBasophils Auto (Bld) [#/Vol]on 52-78-6568Jwrluclxk (Bld) [#/Vol] Automated basophil count0.0-0.1FMercy Health West HospitalBasophils (Bld) [#/Vol]0.1 10 3/uL0.0-0.1FMercy Health West HospitalBasophils/100 WBC Auto (Bld)on 50-23-1305Wgddaizpg/100 WBC (Bld)Automated basophil %0.2-2.0[facility] CampusBasophils/100 WBC (Bld)0.6 %0.2-2.0[facility] CampusEosinophils/100 WBC Auto (Bld)on 51-16-0406Unwoluowgmg/100 WBC (Bld)Automated eosinophil %Low0.9-7.0[facility] Eosinophils/100 WBC (Bld)0.2 %Low0.9-7.0[facility] Erythrocyte distribution width Auto (RBC) [Ratio]on 92-81-3955Roazjhxinus distribution width (RBC) [Ratio]Erythrocyte distribution width [Ratio] by Automated count11.0-15.0[facility] CampusErythrocyte distribution width (RBC) [Ratio]11.3 %11.0-15.0[facility] Estimated glomerular filtration rate (GFR) non- Americanon 09-21-2024 GFR/1.73 sq M.predicted among non-blacks MDRD (S/P/Bld) [Vol rate/Area]Estimated glomerular filtration rate (GFR) non->=60 mL/min/1.73m 2 [facility] CampusGFR/1.73 sq M.predicted among non-blacks MDRD (S/P/Bld) [Vol rate/Area]mL/min/{1.73_m2}>=60 mL/min/1.73m 2FMercy Health West HospitalGlobulin Calc (S) [Mass/Vol]on 77-80-8419Lwstzkma (S) [Mass/Vol] Serum globulin measurement by calculation (mass/volume)[facility] CampusGlobulin (S) [Mass/Vol]5.6 g/dLSumma Health [facility] Campus Hematocrit Auto (Bld) [Volume fraction]on 63-24-8100Ezehiqhsbo (Bld) [Volume fraction]Hematocrit [Volume Fraction] of Blood by Automated xczsdPlr16.0-54.0 [facility] CampusHematocrit (Bld) [Volume fraction]34.2 %Low 42.0-54.0[facility] CampusHemoglobin [Mass/volume] in Bloodon 74-04-5041Vgqjgsficv (Bld) [Mass/Vol]Hemoglobin [Mass/volume] in BloodLow 14.0-18.0[facility] CampusHemoglobin (Bld) [Mass/Vol]11.6 g/dL Low14.0-18.0[facility] CampusLaboratory - Chemistry and Chemistry - challengeon 11-42-9607Jkpopic [Mass/Vol]1.9 g/dLLow3.4-5.0[facility] CampusALP [Catalytic activity/Vol]79 U/N83-503ApghamxxqSumma Health Akron CampusALT [Catalytic activity/Vol]16 U/Z96-09EopwlrkooSumma Health Akron CampusAST [Catalytic activity/Vol]21 U/Z25-24BnbqtpmmtSumma Health Akron CampusBilirubin [Mass/Vol]0.5 mg/dL0.2-1.0[facility] Calcium [Mass/Vol]8.8 mg/dL8.5-10.1FMercy Health West HospitalChloride [Moles/Vol]103 mmol/R56-129NwtlwcuxdSumma Health Akron CampusCO2 [Moles/Vol]24.5 mmol/L21.0-32.0[facility] CampusCreatinine [Mass/Vol]1.18 mg/dL 0.70-1.30[facility] CampusGFR/1.73 sq M.predicted MDRD (S/P/Bld) [Vol rate/Area]mL/min/{1.73_m2}>=60 mL/min/1.73m 2FMercy Health West HospitalGlucose [Mass/Vol]106 mg/uS28-471KoalgcajdSumma Health [facility] Campus Potassium [Moles/Vol]4.6 mmol/L3.5-5.1FMercy Health West HospitalProtein [Mass/Vol]7.5 g/dL6.4-8.2FOhioHealth Hardin Memorial Hospitalodium [Moles/Vol]137 mmol/W181-998AvqlruvdbSumma Health Akron CampusUrea nitrogen [Mass/Vol]24.0 mg/dL High7.0-18.0[facility] CampusUrea nitrogen/Creatinine [Mass ratio]20.3 mg/mgSumma Health Akron CampusLaboratory - Hematology and Cell countson 61-82-5288Vcklldbt granulocytes/100 WBC (Bld)0.5 %0.0-0.5FMercy Health West HospitalLeukocytes [#/volume] corrected for nucleated erythrocytes in Blood by Automated counon 70-59-3635QOU corrected for nucl RBC Auto (Bld) [#/Vol]Leukocytes [#/volume] corrected for nucleated erythrocytes in Blood by Automated counHigh4.0-11.0[facility] CampusWBC corrected for nucl RBC Auto (Bld) [#/Vol]11.9 10 3/uLHigh4.0-11.0[facility] CampusLymphocytes Auto (Bld) [#/Vol]on 54-41-5307Tohbkkemhsv (Bld) [#/Vol]Lymphocytes [#/volume] in Blood by Automated count1.2-3.8[facility] CampusLymphocytes (Bld) [#/Vol]1.9 10 3/uL1.2-3.8[facility] CampusLymphocytes/100 WBC Auto (Bld)on 09-21-2024 Lymphocytes/100 WBC (Bld)Lymphocytes/100 leukocytes in Blood by Automated count Low20.5-60.0[facility] CampusLymphocytes/100 WBC (Bld)15.9 %Low 20.5-60.0[facility] Auto (RBC) [Entitic mass]on 96-33-2781VFV (RBC) [Entitic mass]MCH [Entitic mass] by Automated count25.9-34.0 [facility] (RBC) [Entitic mass]30.8 pg25.9-34.0 [facility] InstituteHC Auto (RBC) [Mass/Vol]on 24-15-3007XNSF (RBC) [Mass/Vol]MCHC [Mass/volume] by Automated count29.9-35.2FMercy Health – The Jewish HospitalHC (RBC) [Mass/Vol]33.9 g/dL29.9-35.2FMercy Health – The Jewish HospitalV Auto (RBC) [Entitic vol]on 89-70-1613OOA (RBC) [Entitic vol]MCV [Entitic volume] by Automated count80.0-94.0[facility] InstituteV (RBC) [Entitic vol]90.7 fL80.0-94.0[facility] CampusMonocytes Auto (Bld) [#/Vol]on 94-00-3580Rigegompg (Bld) [#/Vol]Automated blood monocyte countHigh0.3-0.8[facility] CampusMonocytes (Bld) [#/Vol]1.5 10 3/uLHigh0.3-0.8[facility] CampusMonocytes/100 WBC Auto (Bld)on 67-45-3141Dwtumtvfv/100 WBC (Bld)Automated monocyte %High1.7-12.0[facility] CampusMonocytes/100 WBC (Bld)12.6 %High1.7-12.0[facility] CampusNeutrophils Auto (Bld) [#/Vol]on 85-80-4330Omvpvfrxuvk (Bld) [#/Vol]Neutrophils [#/volume] in Blood by Automated countHigh1.4-6.5 [facility] CampusNeutrophils (Bld) [#/Vol]8.4 10 3/uLHigh1.4-6.5 [facility] CampusNeutrophils/100 WBC Auto (Bld)on 09-21-2024 Neutrophils/100 WBC (Bld)Automated neutrophil %43.0-75.0[facility] CampusNeutrophils/100 WBC (Bld)70.2 %43.0-75.0[facility] CampusNo Panel Informationon 03-92-5037Hjuvamrhxiv # (Auto)0.0 10 3/uL0.0-0.7 [facility] CampusImmature Granulocyte # (Auto)0.06 10 3/uLHigh 0.00-0.03[facility] CampusPlatelet mean volume Auto (Bld) [Entitic vol]on 46-88-6883Qsojvjho mean volume (Bld) [Entitic vol]Platelet mean volume [Entitic volume] in Blood by Automated count9.5-13.5FMercy Health West HospitalPlatelet mean volume (Bld) [Entitic vol]9.7 fL9.5-13.5FMercy Health West HospitalPlatelets Auto (Bld) [#/Vol]on 39-79-4179Xfgunbhvh (Bld) [#/Vol]Platelets [#/volume] in Blood by Automated uvamm300-712SwevpzvjdSumma Health Akron CampusPlatelets (Bld) [#/Vol]314 10 3/dJ598-280HublbippiSumma Health Akron CampusRBC Auto (Bld) [#/Vol]on 07-09-6961XNB (Bld) [#/Vol]Erythrocytes [#/volume] in Blood by Automated countLow4.70-6.10[facility] CampusRBC (Bld) [#/Vol]3.77 10 6/uLLow4.70-6.10[facility] Serum or plasma albumin/globulin mass ratioon 67-99-8580Qdbuklo/Globulin [Mass ratio]Serum or plasma albumin/globulin mass ratioSumma Health Akron CampusAlbumin/Globulin [Mass ratio]0.3 {ratio}[facility] Serum or plasma anion gap determinationon 14-39-1418Eguue gap [Moles/Vol]Serum or plasma anion gap determinationSumma Health Akron CampusAnion gap [Moles/Vol]14.1 mmol/LFMercy Health West HospitalBasophils Auto (Bld) [#/Vol]on 09-22-9213Zuihtdljy (Bld) [#/Vol]Automated basophil count0.0-0.1 [facility] CampusBasophils (Bld) [#/Vol]0.1 10 3/uL0.0-0.1 [facility] CampusBasophils/100 WBC Auto (Bld)on 09-20-2024 Basophils/100 WBC (Bld)Automated basophil %0.2-2.0[facility] CampusBasophils/100 WBC (Bld)0.8 %0.2-2.0[facility] Eosinophils/100 WBC Auto (Bld)on 64-02-8636Tfxldygnxke/100 WBC (Bld)Automated eosinophil %Low0.9-7.0[facility] CampusEosinophils/100 WBC (Bld) 0.0 %Low0.9-7.0[facility] CampusErythrocyte distribution width Auto (RBC) [Ratio]on 03-26-0890Auilqqsmvmp distribution width (RBC) [Ratio] Erythrocyte distribution width [Ratio] by Automated count11.0-15.0[facility] CampusErythrocyte distribution width (RBC) [Ratio]11.2 % 11.0-15.0[facility] CampusEstimated glomerular filtration rate (GFR) non- Americanon 35-20-7588KGS/1.73 sq M.predicted among non-blacks MDRD (S/P/Bld) [Vol rate/Area]Estimated glomerular filtration rate (GFR) non- AmericanLow>=60 mL/min/1.73m [address] [place], [place] [address]GFR/1.73 sq M.predicted among non-blacks MDRD (S/P/Bld) [Vol rate/Area]52 mL/min/{1.73_m2}Low>=60 mL/min/1.[address]m [address] [place], [place] [address]Globulin Calc (S) [Mass/Vol]on 30-16-1089Fjjibddv (S) [Mass/Vol]Serum globulin measurement by calculation (mass/volume)[facility] Globulin (S) [Mass/Vol]6.6 g/dLSumma Health Akron CampusHematocrit Auto (Bld) [Volume fraction]on 40-50-0100Subkfguhnu (Bld) [Volume fraction]Hematocrit [Volume Fraction] of Blood by Automated bziccIqd21.0-54.0[facility] CampusHematocrit (Bld) [Volume fraction]41.1 %Low42.0-54.0[facility] CampusHemoglobin [Mass/volume] in Bloodon 88-99-3402Dbwufpgxrx (Bld) [Mass/Vol]Hemoglobin [Mass/volume] in Blood14.0-18.0[facility] CampusHemoglobin (Bld) [Mass/Vol]14.0 g/dL14.0-18.0[facility] CampusLaboratory - Chemistry and Chemistry - challengeon 09-20-2024 Albumin [Mass/Vol]2.4 g/dLLow3.4-5.0[facility] CampusALP [Catalytic activity/Vol]101 U/B35-313DctgyydhySumma Health Akron CampusALT [Catalytic activity/Vol]25 U/C44-09QtdgudoowSumma Health Akron CampusAST [Catalytic activity/Vol]28 U/F82-63HnucrqcdoSumma Health Akron CampusBilirubin [Mass/Vol]0.7 mg/dL0.2-1.0[facility] CampusCalcium [Mass/Vol]9.6 mg/dL8.5-10.1FMercy Health West HospitalChloride [Moles/Vol]99 mmol/L 98-107[facility] CampusCO2 [Moles/Vol]28.1 mmol/L21.0-32.0 [facility] CampusCreatinine [Mass/Vol]1.37 mg/dLHigh0.70-1.30 [facility] CampusGFR/1.73 sq M.predicted MDRD (S/P/Bld) [Vol rate/Area]mL/min/{1.73_m2}>=60 mL/min/1.73m 2FMercy Health West Hospital Glucose [Mass/Vol]130 mg/rZQbkc19-934ActawnokzSumma Health [facility] CampusPotassium [Moles/Vol]4.5 mmol/L3.5-5.1FMercy Health West HospitalProtein [Mass/Vol] 9.0 g/dLHigh6.4-8.2FOhioHealth Hardin Memorial Hospitalodium [Moles/Vol]132 mmol/L Rrm541-097FzptpvqlxSumma Health Akron CampusUrea nitrogen [Mass/Vol]18.0 mg/dL 7.0-18.0[facility] CampusUrea nitrogen/Creatinine [Mass ratio] 13.1 mg/mgSumma Health Akron CampusLaboratory - Hematology and Cell countson 72-68-0564QAI (Bld) [Velocity]mm/hHigh<=20[facility] CampusImmature granulocytes/100 WBC (Bld)0.3 %0.0-0.5FMercy Health West HospitalLeukocytes [#/volume] corrected for nucleated erythrocytes in Blood by Automated counon 52-03-5876GDL corrected for nucl RBC Auto (Bld) [#/Vol] Leukocytes [#/volume] corrected for nucleated erythrocytes in Blood by Automated counPlateau Medical Center4.0-11.0[facility] CampusWBC corrected for nucl RBC Auto (Bld) [#/Vol]11.9 10 3/uLPlateau Medical Center4.0-11.0[facility] Lymphocytes Auto (Bld) [#/Vol]on 49-36-0354Vvsfuooqtft (Bld) [#/Vol]Lymphocytes [#/volume] in Blood by Automated count1.2-3.8[facility] Lymphocytes (Bld) [#/Vol]1.9 10 3/uL1.2-3.8[facility] Lymphocytes/100 WBC Auto (Bld)on 28-85-3697Lpujfnhalxo/100 WBC (Bld) Lymphocytes/100 leukocytes in Blood by Automated vhvyaCcf27.5-60.0[facility] CampusLymphocytes/100 WBC (Bld)15.9 %Low20.5-60.0[facility] InstituteH Auto (RBC) [Entitic mass]on 57-89-1492ERU (RBC) [Entitic mass]MCH [Entitic mass] by Automated count25.9-34.0[facility] (RBC) [Entitic mass]30.8 pg25.9-34.0[facility] InstituteHC Auto (RBC) [Mass/Vol]on 41-27-4924BGDF (RBC) [Mass/Vol]MCHC [Mass/volume] by Automated count29.9-35.2FMercy Health – The Jewish HospitalHC (RBC) [Mass/Vol]34.1 g/dL29.9-35.2FMercy Health West HospitalMCV Auto (RBC) [Entitic vol]on 27-32-6881CPP (RBC) [Entitic vol]MCV [Entitic volume] by Automated count80.0-94.0[facility] InstituteV (RBC) [Entitic vol] 90.5 fL80.0-94.0[facility] CampusMonocytes Auto (Bld) [#/Vol]on 44-97-9761Ltspnehkp (Bld) [#/Vol]Automated blood monocyte countHigh0.3-0.8 [facility] CampusMonocytes (Bld) [#/Vol]1.4 10 3/uLHigh0.3-0.8 [facility] CampusMonocytes/100 WBC Auto (Bld)on 09-20-2024 Monocytes/100 WBC (Bld)Automated monocyte %High1.7-12.0[facility] CampusMonocytes/100 WBC (Bld)12.1 %High1.7-12.0[facility] CampusNeutrophils Auto (Bld) [#/Vol]on 12-26-7860Kbjysmjqhmd (Bld) [#/Vol]Neutrophils [#/volume] in Blood by Automated countHigh1.4-6.5FMercy Health West HospitalNeutrophils (Bld) [#/Vol]8.5 10 3/uLHigh1.4-6.5FMercy Health West HospitalNeutrophils/100 WBC Auto (Bld)on 09-20-2024 Neutrophils/100 WBC (Bld)Automated neutrophil %43.0-75.0[facility] CampusNeutrophils/100 WBC (Bld)70.9 %43.0-75.0[facility] CampusNo Panel Informationon 04-14-2958U-Reactive Protein, Quantitative6.32 mg/dLHigh<=0.50[facility] CampusEosinophils # (Auto)0.0 10 3/uL 0.0-0.7FMercy Health West HospitalImmature Granulocyte # (Auto)0.04 10 3/uLHigh0.00-0.03[facility] CampusPlatelet mean volume Auto (Bld) [Entitic vol]on 01-25-6152Htcgjzap mean volume (Bld) [Entitic vol]Platelet mean volume [Entitic volume] in Blood by Automated count9.5-13.5FMercy Health West HospitalPlatelet mean volume (Bld) [Entitic vol]9.5 fL9.5-13.5 [facility] CampusPlatelets Auto (Bld) [#/Vol]on 09-20-2024 Platelets (Bld) [#/Vol]Platelets [#/volume] in Blood by Automated usdgm996-022 [facility] CampusPlatelets (Bld) [#/Vol]401 10 3/bM013-518 [facility] CampusRBC Auto (Bld) [#/Vol]on 71-93-5794PPI (Bld) [#/Vol]Erythrocytes [#/volume] in Blood by Automated countLow4.70-6.10[facility] CampusRBC (Bld) [#/Vol]4.54 10 6/uLLow4.70-6.10[facility] Hospitalerum or plasma albumin/globulin mass ratioon 09-20-2024 Albumin/Globulin [Mass ratio]Serum or plasma albumin/globulin mass ratio [facility] CampusAlbumin/Globulin [Mass ratio]0.4 {ratio} [facility] Hospitalerum or plasma anion gap determinationon 21-34-8056Ylynv gap [Moles/Vol]Serum or plasma anion gap determinationSumma Health Akron CampusAnion gap [Moles/Vol]9.4 mmol/LFMercy Health West HospitalCreatinine [Mass/volume] in UrineOrdered By: Yolette Ge on 06-18-2024 Creatinine (U) [Mass/Vol]Creatinine [Mass/volume] in UrineSumma Health Akron CampusComment on above:No reference range establishedMicroAlb Creat Ratio,Uon 94-21-2203Vuejilo DL <= 20 mg/L (U) [Mass/Vol]mg/dLHigh0.0-1.8[facility] Physician GroupComment on above:Performed By: #### URMACRERAT #### [facility] [address] [place] [address] USACreatinine, Urine (Random)123.00 mg/dLNoWashington [facility] Medical Center Physician [facility]ola [facility] CenterComment on above:Result Comment: No reference range established Performed By: #### URMACRERAT #### [facility] [address] [place] [address] USAMicroalbumin/Creatinine RatioNot performedNormal0.0-30.0 [facility] Physician [facility] CenterComment on above:Result Comment: PERFORMED BY: [place] [address] PATHOLOGIST PERSONAL DRIVER JAMIL BONILLA M.D.Performed By: #### URMACRERAT #### [facility] [address] [place] [id number] USAMicroalbumin [Mass/volume] in UrineOrdered By: Yolette Ge on 22-97-7874Whdxnxe DL <= 20 mg/L (U) [Mass/Vol]Microalbumin [Mass/volume] in UrineHigh0.0-1.8[facility] CampusUrine microalbumin/creatinine mass ratioOrdered By: Yolette Ge on 06-18-2024 Albumin/Creatinine DL <= 20 mg/L (U) [Mass ratio]Urine microalbumin/creatinine mass ratioSumma Health Akron CampusComment on above:Test not performed HbA1c HPLC (Bld) [Mass fraction]on 98-96-9422CnC9n (Bld) [Mass fraction] Hemoglobin A1c/Hemoglobin.total in Blood by HPLCSumma Health Akron CampusNo Panel Informationon 40-58-6505Gxhhgbq Uepzomc274ZmzdroslySumma Health Akron CampusCT ABDOMEN WO CONTon 70-14-2819QG ABDOMEN WO CONTCT ABDOMEN WO CONT HISTORY and Tech Notes: [...] by Robinson Camarena MD on 04/11/2024 11:15 [facility]CT CHEST WO CONTon 54-06-5268MQ CHEST WO CONTCT CHEST WO CONT CT Chest without contrast [...] assessment. No definite mass is observed. No pericardialeffusion is appreciated. The thoracic aorta has a [...] is a right pleural effusion with some compressiveatelectasis in the inferior right lower lobe. Please see above discussion. All CT scans at this facility use dose modulation, iterative reconstruction, and/or weight based dosing when appropriate to reduce radiation dose to as low as reasonably achievable. Finalized by Camille Guido MD on 04/11/2024 11:15 [facility]ighHbA1c HPLC (Bld) [Mass fraction]on 51-03-2206XdV3b (Bld) [Mass fraction] 6.4 %[facility] CampusNo Panel Informationon 04-73-0367Rwhzdbe Dnrdejg725UnqwhvtctSumma Health Akron CampusA1C HEMOGLOBINon 86-71-2153BdZ5u (Bld) [Mass fraction]6.9 %il[employer] Other Glucose - FINGER STICKon 18-69-5600Foinsgy [Mass/Vol] 132 mg/dLNowestern missouri medical center VigLink Other HbA1c (Bld) [Mass fraction]on 77-83-5212O8L HEMOGLOBIN ilab Other A1C HEMOGLOBINon 83-06-3526WrZ8i (Bld) [Mass fraction] 6.4 %il[employer] Other Creatinine [Mass/volume] in UrineOrdered By: Yolette Ge on 11-21-9023Qrtnbobtvj (U) [Mass/Vol]89.0 mg/dL14.0-26.0[facility] CampusGlucose - FINGER STICKon 57-46-5043Tduybbd [Mass/Vol]132 mg/dLNowestern missouri medical center [employer] Other HbA1c (Bld) [Mass fraction]on 82-01-7106H9B HEMOGLOBIN ilab Other microAlb Creat Ratio,Uon 99-02-9511Yvvcicfejg (U) [Mass/Vol]89.9022024 mg/pUNsps52.0-26.0 mg/dLEntriken VigLink Other microAlb Creat Ratio,UOrdered By: Yolette Ge on 94-32-3921Adcdcax DL <= 20 mg/L (U) [Mass/Vol]mg/dL0.0-1.8[facility] CampusAlbumin/Creatinine DL <= 20 mg/L (U) [Mass ratio][facility] HospitalComment on above:Test not performedGlucose - FINGER STICK on 48-88-5860Tcxpumq [Mass/Vol]160 mg/dLEntriken Vig[employer] Other A1C HEMOGLOBINon 01-41-8445SzA7f (Bld) [Mass fraction] 7.0 %[employer] Other Glucose - FINGER STICKon 92-46-3519Huptrkx [Mass/Vol] 88 mg/dLNowestern missouri medical center [employer] Other HbA1c (Bld) [Mass fraction]on 78-85-1646U1F HEMOGLOBIN Entriken [employer] Other Glucose - FINGER STICKon 49-23-7074Szjziqo [Mass/Vol] 137 mg/dLEntriken Vig[employer] Other A1C HEMOGLOBINon 73-02-0112TrH3u (Bld) [Mass fraction] 7.5 %il[employer] Other Glucose - FINGER STICKon 85-83-0822Srmmsiq [Mass/Vol] 199 mg/dLNowestern missouri medical center [employer] Other HbA1c (Bld) [Mass fraction]on 27-27-4124K6R HEMOGLOBIN Entriken [employer] Other A1C HEMOGLOBINon 48-39-0529VyM6s (Bld) [Mass fraction] 7.7 %ilab Other Glucose - FINGER STICKon 71-20-8514Wpmncib - FINGER STICKNowestern [facility] Other A1C HEMOGLOBINon 76-49-3326KgR1e (Bld) [Mass fraction] 8.1 %ilab Other Glucose - FINGER STICKon 68-76-5436Psjdscv [Mass/Vol] 232 mg/dLEntriken [employer] Other HbA1c (Bld) [Mass fraction]on 93-65-2558X4L HEMOGLOBIN [place] [facility] Other A1C HEMOGLOBINon 06-15-7560YkU3o (Bld) [Mass fraction] 8.0 %ilab Other Glucose - FINGER STICKon 15-02-4331Foakogh [Mass/Vol] 159 mg/dLAfluenta Vig[employer] Other HbA1c (Bld) [Mass fraction]on 37-32-2851C8E HEMOGLOBIN ilab Other ACETONE SERUMon 19-86-8457TRWFKUCTDCTUOwpopvQJNXAGDU [facility] HospitalComment on above:Performed By: #### ACETON ####[facility] [address] [place] [id number] KarenBNPon 22-10-3594Vnljzachbkm peptide B (Bld) [Mass/Vol]72.0 pg/mLNormal<=900.0The [facility] HospitalComment on above:Performed By: #### CMP, TSH, TROP, BNP #### [facility] [address] [address] Kisha KarenCBC AUTO DIFFon 86-25-4665Qirkckotw (Bld) [#/Vol]0.0 103/ulNormal 0.0-0.1The [facility] Centerment on above:Performed By: #### CBC #### [facility] [address] [address] Kisha KarenBasophils/100 WBC (Bld)0.4 %Normal0.2-2.0[facility] Comment on above:Performed By: #### CBC #### [facility] [address] [address] Kisha KarenEosinophils (Bld) [#/Vol]0.0 103/ulNormal0.0-0.7The [facility] on above:Performed By: #### CBC #### [facility] [address] [address] Kisha KarenEosinophils/100 WBC (Bld)0.0 %Critically low0.9-7.0[facility] Centerment on above:Performed By: #### CBC #### [facility] [address] [address] Kisha KarenErythrocyte distribution width (RBC) [Ratio]13.3 %Dmhdug80.0-15.0The [facility] Centerment on above:Performed By: #### CBC #### [facility] [address] [address] Kisha KarenHematocrit (Bld) [Volume fraction]45.3 %Ygmzcu68.0-54.0[facility] HospitalComment on above:Performed By: #### CBC #### [facility] [address] [place] [address] Kisha KarenHemoglobin (Bld) [Mass/Vol]15.9 g/oYLbfhth60.0-18.0The [facility] HospitalComment on above:Performed By: #### CBC #### [facility] [address] [place] [address] Kisha KarenIG #0.03 10e3/ulNormal0.00-0.03The [facility] HospitalComment on above:Performed By: #### CBC #### [facility] [address] [place] [address] Kisha KarenIG %0.6 %Critically high0.0-0.5The [facility] HospitalComment on above:Performed By: #### CBC #### [facility] [address] [place] [address] Kisha KarenLymphocytes (Bld) [#/Vol]1.8 103/ulNormal1.2-3.8The [facility] HospitalComment on above:Performed By: #### CBC #### [facility] [address] [place] [address] Kisha KarenLymphocytes/100 WBC (Bld)37.3 %Bqvniv80.5-60.0[facility] Comment on above:Performed By: #### CBC #### [facility] [address] [place] [address] Kisha KarenMANUAL DIFF REQNONormalThe St. [facility] HospitalComment on above: Performed By: #### CBC #### [facility] [address] [place] [address] Kisha KarenMCH (RBC) [Entitic mass]31.4 umSfmhcn40.9-34.0The [facility] Comment on above:Performed By: #### CBC #### [facility] [address] [place] [address] Kisha KarenMCHC (RBC) [Mass/Vol]35.1 g/qOGrjybf07.9-35.2[facility] Comment on above:Performed By: #### CBC #### [facility] [address] [place] [address] Kisha KarenMCV (RBC) [Entitic vol]89.3 bOSrmntj51.0-94.0[facility] Comment on above:Performed By: #### CBC #### [facility] [address] [place] [address] Kisha KarenMonocytes (Bld) [#/Vol]0.7 103/ulNormal0.3-0.8The [facility] Comment on above:Performed By: #### CBC #### [facility] [address] [place] [address] Kisha KarenMonocytes/100 WBC (Bld)14.5 %Critically high1.7-12.0[facility] HospitalComment on above:Performed By: #### CBC #### [facility] [address] [place] [address] Kisha KarenNeutrophils (Bld) [#/Vol]2.3 103/ulNormal1.4-6.5The [facility] HospitalComment on above:Performed By: #### CBC #### [facility] [address] [place] [address] Kisha KarenNeutrophils/100 WBC (Bld)47.2 %Ziwocz38.0-75.0[facility] Comment on above:Performed By: #### CBC #### [facility] [address] [place] [address] Kisha KarenPlatelet mean volume (Bld) [Entitic vol]11.7 fLNormal9.5-13.5The [facility] HospitalComment on above:Performed By: #### CBC #### [facility] [address] [place] [address] Kisha KarenPlatelets (Bld) [#/Vol]157 103/ioGyvmdj945-045OcrDetwiler Memorial Hospital Comment on above:Performed By: #### CBC #### [facility] [address] [place] [address] Kisha KarenRBC (Bld) [#/Vol]5.07 106/ulNormal4.70-6.10The [facility] Comment on above:Performed By: #### CBC #### [facility] [address] [address] Kisha TeresaWBC (Bld) [#/Vol]4.9 103/ulNormal4.0-11.0[facility] Comment on above:Performed By: #### CBC #### [facility] [address] [address] Kisha HerediaTA CHEST WO W CONon 56-55-2668MTF CHEST WO W CONEXAMINATION: CTA CHEST WO W CON HISTORY: SHORTNESS [...] Electronically authenticated by: NORY WAN Date: 2020-04-08 12:41NormMercy Health – The Jewish HospitalD-DIMERon [id number]-DIMER COMMENTSSEE BELOWOhio State East HospitalComment on above:Result Comment: Increases in D-Dimer concentration observed with thromboembolic events [...] thrombolytic or anticoagulant therapy, stress, and generalizd hospitalization.Performed By: #### DDIM, PTT, PT ####[facility] [address] [id number] KarenFibrin D-dimer FEU IA (Bld) [Mass/Vol]1.16 ug/mLCritically high0.19-0.50The [facility] HospitalComment on above:Result Comment: test repeated critcal value verified Performed By: #### DDIM, PTT, PT ####[facility] [address] [address]Gerken KarenPH VENOUS BLOODon 46-48-3507ZEM8 VENOUS 46.4 brAeFgzitb08.0-52.0The [facility] HospitalComment on above:Performed By: #### PHVEN #### [facility] [address] [place] [address] Kisha KarenpH VENOUS7.21Xrnckt8.33-7.43The [facility] HospitalComment on above: Performed By: #### PHVEN #### [facility] [address] [place] [address] Kisha KarenPROF 14(COMP METB)on 90-05-8452Tmhpbve [Mass/Vol]2.4 g/dLCritically low3.5-5.0The [facility] HospitalComment on above:Performed By: #### CMP, TSH, TROP, BNP #### [facility] [address] [place] [address] Kisha KarenAlbumin/Globulin [Mass ratio]0.4 {ratio}NormalDetwiler [facility] Hospital Comment on above:Performed By: #### CMP, TSH, TROP, BNP #### [facility] [address] [place] [address] Kisha KarenALP [Catalytic activity/Vol]68 U/NTboiil27-175CxsDetwiler Memorial Hospital Comment on above:Performed By: #### CMP, TSH, TROP, BNP #### [facility] [address] [place], [place] [address] Kisha KarenALT [Catalytic activity/Vol]33 U/SJsxzio68-03Jrw [facility] Comment on above:Performed By: #### CMP, TSH, TROP, BNP #### [facility] [address] [id number] Kisha KarenAnion gap [Moles/Vol]10.1 mmol/LNormalThe St. [facility] Of [facility] HospitalComment on above:Performed By: #### CMP, TSH, TROP, BNP #### [facility] [address] [id number] Kisha KarenAST [Catalytic activity/Vol]50 U/LNixtdo43-13Vll [facility] Comment on above:Performed By: #### CMP, TSH, TROP, BNP #### [facility] [address] [address] Kisha KarenBilirubin Ql (U)0.9 mg/dLNormal0.2-1.3The [facility] HospitalComment on above:Performed By: #### CMP, TSH, TROP, BNP #### [facility] [address] [address] Kisha KarenCalcium [Mass/Vol]8.7 mg/dLNormal8.4-10.2The [facility] Comment on above:Performed By: #### CMP, TSH, TROP, BNP #### [facility] [address] [address] Kisha KarenChloride [Moles/Vol]96 mmol/LCritically pra09-935Jrp St[facility] HospitalComment on above:Performed By: #### CMP, TSH, TROP, BNP #### [facility] [address] [address] Kisha KarenCO2 [Moles/Vol]27.9 mmol/CCmrurn66.0-30.0The [facility] Comment on above:Performed By: #### CMP, TSH, TROP, BNP #### [facility] [address] [address] Kisha KarenCreatinine [Mass/Vol]1.13 mg/dLNormal0.66-1.25The [facility] Comment on above:Performed By: #### CMP, TSH, TROP, BNP #### [facility] [address] [place] [address] Kisha KarenEGFR-AF SLOVENIAN>60Normal>=60The [facility] HospitalComment on above: Performed By: #### CMP, TSH, TROP, BNP #### [facility] [address] [place] [address] Kisha KarenEGFR-NON AF SLOVENIAN>60Normal>=60The [facility] HospitalComment on above:Performed By: #### CMP, TSH, TROP, BNP #### [facility] [address] [place] [address] Kisha KarenGlobulin (S) [Mass/Vol]5.8 g/dLNormalThe St. [facility] HospitalComment on above:Performed By: #### CMP, TSH, TROP, BNP #### [facility] [address] [place] [address] Kisha KarenGlucose [Mass/Vol]263 mg/dLCritically wcaz76-973Syc St[facility] HospitalComment on above:Performed By: #### CMP, TSH, TROP, BNP #### [facility] [address] [place] [address] Kisha KarenPotassium [Moles/Vol]3.0 mmol/LCritically low3.4-5.0The [facility] HospitalComment on above:Performed By: #### CMP, TSH, TROP, BNP #### [facility] [address] [place] [address] Kisha KarenProtein [Mass/Vol]8.2 g/dLNormal6.1-8.2The [facility] HospitalComment on above:Performed By: #### CMP, TSH, TROP, BNP #### [facility] [address] [place] [address] Kisha KarenSodium [Moles/Vol]131 mmol/LCritically wxe587-982Wui St[facility] HospitalComment on above:Performed By: #### CMP, TSH, TROP, BNP #### [facility] [address] [address] Kisha KarenUrea nitrogen [Mass/Vol]15.0 mg/dLNormal9.0-20.0The [facility] on above:Performed By: #### CMP, TSH, TROP, BNP #### [facility] [address] [address] Kisha KarenUrea nitrogen/Creatinine [Mass ratio]13.3 mg/mgNormAdena Health System on above:Performed By: #### CMP, TSH, TROP, BNP #### [facility] [address] [address] Kisha KarenPROTIMEon 69-47-5175WGU Coag (PPP) [Relative time]1.03 {INR}Normal [facility] on above:Performed By: #### DDIM, PTT, PT ####[facility] [address] [phone] KarenPT Coag (PPP) [Time]10.9 sNormal9.0-11.6The [facility] on above:Performed By: #### DDIM, PTT, PT ####[facility] [address] [phone] KarenPT Coag (PPP) [Time]SEE BELOWNormal The [facility] on above:Result Comment: DESIRED INR: 2.0 - 3.0 CONDITIONS NOT LISTED BELOW 2.5 - 3.5 FOR PROSTHETIC HEART VALVE REPLACEMENT 2.5 - 3.5 RECURRENT THROMBOSISPerformed By: #### DDIM, PTT, PT ####[facility] [address] [phone] KarenPTTon 45-00-1515oFRF Coag (Bld) [Time]PLEASE NOTE: NORMAL RANGE CHANGE 03-31-2015 DUE TO REAGENT LOT CHANGENormAdena Health System on above:Performed By: #### DDIM, PTT, PT #### [facility] [address] [phone] Kisha KarenaPTT Coag (Bld) [Time]26.7 hRughrg94.3-36.2The [facility] Comment on above:Performed By: #### DDIM, PTT, PT #### [facility] [address] [place] [address] Kisha TeresaRapid Covid-19 PCR (CVDRPD)on 78-55-1475Kfxuvjon LDT InfoSEE BELOW NormalDetwiler Memorial HospitalComment on above:Result Comment: This test is not yet approved or cleared by the [place] Food and Drug Administration (FDA) . This test was developed by [employer]. The performance characteristics of this test were validated by The [facility]. The results are not intended to be used as the sole means for clinical diagnosis or patient management decisions. The [facility] is authorized under Clinical Laboratory Improvement Amendments (CLIA) to perform high-comple xity testing. When diagnostic testing is negative, the possibility of a false negative should be considered in the context of a patients recent exposures and the presence of clinical signs and symptoms consistent with SARS-CoV-2.Performed By: #### CVDRPD #### [facility] [address] [place] [address] Kisha StatonPmbbuZNNR-FlI-1PILUSXACSZJ DETECTEDThe St. [facility] HospitalComment on above: Result Comment: .Performed By: #### CVDRPD #### [facility] [address] [place] [address] Kisha CostelloenTROPONIN - Ion 85-43-2191Haenxxre I.cardiac [Mass/Vol]SEE BELOW NormalDetwiler Memorial HospitalComment on above:Result Comment: <0.034 ng/ml NEGATIVE 0.034-0.119 INDETERMINATE 0.120 AMI CUT OFFPerformed By: #### CMP, TSH, TROP, BNP #### [facility] [address] [place] [address] Kisha KarenTroponin I.cardiac [Mass/Vol]ng/mLNormal<=0.034[facility] Comment on above:Performed By: #### CMP, TSH, TROP, BNP #### [facility] [address] [place] [address] Kisha KarenTSHon 01-01-9609CNR Qn2.851 uIU/mLNormal0.470-4.680The [facility] HospitalComment on above:Performed By: #### CMP, TSH, TROP, BNP #### [facility] [address] [place], [place] [address] Kisha Jama BELOWOhio State East HospitalComment on above:Result Comment: <0.34 UIU/ml HYPERTHYROID 0.34-5.60 UIU/ml EUTHYROID >5.60 UIU/ml HYPOTHYROIDPerformed By: #### CMP, TSH, TROP, BNP #### [facility] [address] [place], [place] [address] Kisha TeresaXR CHEST 1 Von [id number] CHEST 1 VEXAMINATION: XR CHEST 1 V HISTORY: Asthenia ; [...] Electronically authenticated by: NORY WAN Date: 2020-04-08 11:49[facility] Vital Signs Date TimeVital SignValuePerforming SpsvkymdwRbgaxild87-74-4638 09:05-0400Body swbyii259.99 cmGomezminor Ge APRN Work Phone: [facility]08-28-2025 09:05-0400 Body mass index (BMI) [Ratio]24.8 kg/n3NjthvklYolette Ge APRN Work Phone: [facility]08-28-2025 09:05-0400 Body tawznu26.2 kgGomezminor Ge APRN Work Phone: [facility]08-28-2025 09:05-0400 Diastolic blood zlocgeny36 mm[Hg]Yolette Ge APRN Work Phone: [facility]08-28-2025 09:05-0400 Heart rate81 /minDshayna Segally HAND COREMAKER Work Phone: [facility]08-28-2025 09:05-0400 Respiratory rate18 /minDshayna Segally HAND COREMAKER Work Phone: [facility]08-28-2025 09:05-0400 SaO2% (BldA) [Mass fraction]100 %Yolette Segally HAND COREMAKER Work Phone: [facility]08-28-2025 09:05-0400 Systolic blood oqmupnxv396 mm[Hg]Yolette Segally HAND COREMAKER Work Phone: [facility]06-19-2025 10:55-0400 Body wqlaio939.3 cmMoroshan Cluver MD Work Phone: 1([phone]06-19-2025 10:55-0400Body mass index (BMI) [Ratio]23.63 kg/l5AkwrowgJamil Culver MD Work Phone: 1(104)[facility]06-19-2025 10:55-0400Body icotal92.58 kgMoroshan Culver MD Work Phone: 1(082)[facility]06-19-2025 10:55-0400Diastolic blood elqfrtbp36 mm[Hg]Jamil Culver MD Work Phone: 1(018)[facility]06-19-2025 10:55-0400Heart rate 72 /minMoroshan Culver MD Work Phone: 1(603)[facility]06-19-2025 10:55-0400Systolic blood vxufwaim354 mm[Hg]Jamil Culver MD Work Phone: 1(090)[facility]06-05-2025 08:41-0400Body ouolxe646.99 [facility]PVern[facility] DPM Work Phone: [facility]06-05-2025 08:41-0400 Body mass index (BMI) [Ratio]24 kg/q3RxxsrMayra Spears DPM Work Phone: [facility]06-05-2025 08:41-0400 Body hqlytq31.6 kgMayra Spears DPM Work Phone: 1([phone])400-[address] [place], [place] [address]006-05-2025 08:41-0400 Diastolic blood vhtiltke40 mm[Hg]Mayra Spears DPM Work Phone: 1(488)[address]06-05-2025 08:41-0400 Heart rate88 /[facility] D[facility] Work Phone: 1(106)[address]06-05-2025 08:41-0400 Respiratory rate18 /Gaudencio Spears DPM Work Phone: 1(858)[address] [place], [place] [address]906-05-2025 08:41-0400 SaO2% (BldA) [Mass fraction]98 %Mayra Spears DPM Work Phone: 1(080)920-[address] [place], [place] [address]006-05-2025 08:41-0400 Systolic blood nqxgznha90 mm[Hg]Mayra Spears DPM Work Phone: 1([phone])525-[address] [place], [place] [address]-12-2025 08:41-0500 Body dfjssa295.99 cmSum[facility]02-12-2025 08:41-0500Body mass index (BMI) [Ratio]26.9 kg/w3FwirfkkruSumma Health [facility] Campus02-12-2025 08:41-0500Body milfwj86.4 kgSumma Health [facility]02-12-2025 08:41-0500Diastolic blood euagoosz11 mm[Hg][facility] 06-18-2024 08:41-0500Heart rate74 /[facility] 06-18-2024 08:41-0500Respiratory rate18 /[facility] 06-18-2024 08:41-9638SyX4% (BldA) [Mass fraction]99 %[facility]02-12-2025 08:41-0500Systolic blood nxfcgguh214 mm[Hg][facility]12-18-2024 09:26-0500Body xfcodm513.99 cmSum[facility]12-18-2024 09:26-0500Body mass index (BMI) [Ratio]26.8 kg/m2 [facility]12-18-2024 09:26-0500Body vtrutr40.27 kg [facility]12-18-2024 09:26-0500Diastolic blood yayejygh18 mm[Hg][facility]12-18-2024 09:26-0500Heart rate83 /min [facility]12-18-2024 09:26-0500Respiratory rate18 /min [facility]12-18-2024 09:26-5673BxS5% (BldA) [Mass fraction]98 %[facility]12-18-2024 09:26-0500Systolic blood ukhniziz691 mm[Hg][facility]12-02-2024 08:17-0500 Body exyugu445.3 cmChristopher Edi DO Work Phone: [facility] CenterQgydqtwuxq23-15-1316 08:17-0500Body mass index (BMI) [Ratio]26.11 kg/a1Fjxtqdzziqj Edi DO Work Phone: [facility] CenterNgguuldvqz75-55-6711 08:17-0500Body cemfeh48.2 kg Christopher Edi DO Work Phone: [facility] CenterNmgldgdhvk95-82-6256 08:17-0500Diastolic blood rgkpsykx88 mm[Hg]Christopher Edi DO Work Phone: [facility] CenterAkdxgvuewb71-38-3244 08:17-0500Heart rate84 /min Christopher Edi DO Work Phone: [facility] CenterMksrgcrgjk30-87-3841 08:17-7318RtL6% (BldA) [Mass fraction]98 %Christopher Edi DO Work Phone: [facility] CenterJyxwreiwly43-32-6903 08:17-0500Systolic blood hwoummex705 mm[Hg]Christopher Edi DO Work Phone: [place] [address]Bvxrutimrr49-04-7669 09:58-0400Body ymwzsy877.99 cmSum[facility]09-16-2024 09:58-0400Body mass index (BMI) [Ratio]25.5 kg/w9WrafnvrltSumma Health [facility] Campus09-16-2024 09:58-0400Body zgutwc48.28 kgSumma Health [facility] Campus09-16-2024 09:58-0400Diastolic blood qitfebcj70 mm[Hg][facility]09-16-2024 09:58-0400 Heart rate82 /[facility]09-16-2024 09:58-0400 Respiratory rate18 /[facility]09-16-2024 09:58-0400 SaO2% (BldA) [Mass fraction]99 %[facility]09-16-2024 09:58-0400Systolic blood iozwlanw457 mm[Hg][facility] 09-10-2023 08:17-0400Body vqedwe382.99 cmSum[facility] 09-10-2023 08:17-0400Body mass index (BMI) [Ratio]26.9 kg/q9FuixdjiuzSumma Health [facility]ron Campus05-06-2024 08:17-0400Body tuhaws48.33 [facility]05-06-2024 08:17-0400Diastolic blood gejjgdbp49 mm[Hg][facility]05-06-2024 08:17-0400Heart rate87 /[facility]05-06-2024 08:17-0400Respiratory rate18 /[facility]05-06-2024 08:17-5330XvB6% (BldA) [Mass fraction]99 %[facility]05-06-2024 08:17-0400Systolic blood ofqglafo446 mm[Hg][facility]01-30-2024 09:15-0500Body fkyzty131.99 [facility] Other [facility]01-30-2024 09:15-0500 Body mass index (BMI) [Ratio]25.9 kg/v6TbqfxxfChildren[facility] Other [employer] Other 01-30-2024 09:15-0500Body ekffrk67.43 kgDeborah Scally Other [employer] Other 01-30-2024 09:15-0500Body mgaxzp18.42 kgMD Annie Rodgers Work Phone: [facility]01-30-2024 09:15-0500 Diastolic blood ujymdhvo45 mm[Hg]Yolette Scally Other [facility]01-30-2024 09:15-0500 Respiratory rate18 /minDeborah Scally Other [employer] Other 01-30-2024 09:15-3459IqJ4% (BldA) [Mass fraction]99 % Yolette Scally Other [employer] Other 01-30-2024 09:15-0500Systolic blood nhmyihme798 mm[Hg] Yolette Scally Other [facility]10-24-2023 10:45-0400 Body dyhwvh556.99 cmDeborah Scally Other [employer] Other 10-24-2023 10:45-0400Body mass index (BMI) [Ratio] 26.07 kg/v8Sqmzozc Scally Other [employer] Other 10-24-2023 10:45-0400Body .93 kgDeborah Scally Other [employer] Other 10-24-2023 10:45-0400Diastolic blood eajkjykh04 mm[Hg] Yolette Scally Other [employer] Other 10-24-2023 10:45-0400Respiratory rate18 /minDeborah Scally Other [employer] Other 10-24-2023 10:45-6372JlM7% (BldA) [Mass fraction]99 % Yolette Scally Other [employer] Other 10-24-2023 10:45-0400Systolic blood ujyfomaw739 mm[Hg] Yolette Scally Other [employer] Other 08-15-2023 08:45-0400Body ajvdyp395.99 cmDeborah Scally Other [employer] Other 08-15-2023 08:45-0400Body mass index (BMI) [Ratio] 26.37 kg/x9Vhledny Scally Other [employer] Other 08-15-2023 08:45-0400Body xchfly81.83 kgDeborah Scally Other [employer] Other 08-15-2023 08:45-0400Diastolic blood tecjdhqk43 mm[Hg] Yolette Scally Other [employer] Other 08-15-2023 08:45-0400Respiratory rate18 /minDeborah Scally Other [employer] Other 08-15-2023 08:45-8577CkW9% (BldA) [Mass fraction]98 % Yolette Scally Other 381.735.3868[employer] Other 08-15-2023 08:45-0400Systolic blood mm[Hg] Yolette Scally Other [employer] Other 05-30-2023 08:15-0400Body gsukan121.99 cmDeborah Scally Other [employer] Other 05-30-2023 08:15-0400Body mass index (BMI) [Ratio]27.3 kg/i6Mtmjztl Philipply Other [employer] Other 05-30-2023 08:15-0400Body fgvugx19.65 kgDeminor Segally Other [employer] Other 05-30-2023 08:15-0400Diastolic blood ebgmwafg17 mm[Hg] Yolette Scally Other [employer] Other 05-30-2023 08:15-0400Respiratory rate18 /minDeborah Scally Other [employer] Other 05-30-2023 08:15-7541IbI8% (BldA) [Mass fraction]99 % Yolette Scally Other [employer] Other 05-30-2023 08:15-0400Systolic blood dgegsjsw146 mm[Hg] Yolette Scally Other [employer] Other 03-20-2023 10:30-0400Body xzpmak245.99 cmAnnie Rodgers Other [employer] Other 03-20-2023 10:30-0400Body mass index (BMI) [Ratio] 27.72 kg/d5Gvmoqy Suzan Other [employer] Other 03-20-2023 10:30-0400Body .92 kgAnnie Rodgers Other [employer] Other 03-20-2023 10:30-0400Diastolic blood vkyyxoau64 mm[Hg] Annie Suzan Other [employer] Other 03-20-2023 10:30-9253ZzU3% (BldA) [Mass fraction]97 % Anniefavio Rodgers Other [employer] Other 03-20-2023 10:30-0400Systolic blood caidfecs864 mm[Hg] Annie Rodgers Other [employer] Other 02-22-2023 09:00-0500Body uwjxvi880.26 cmDeminor Ge Other [employer] Other 02-22-2023 09:00-0500Body mass index (BMI) [Ratio] 27.98 kg/f1Fnqombr go2 [employer] Other [employer] Other 02-22-2023 09:00-0500Body rqozkh69.96 kgDeboryohan Segally Other [employer] Other 02-22-2023 09:00-0500Diastolic blood pressureDeborah Philipply Other [employer] Other 02-22-2023 09:00-0500Respiratory rate18 /minDeborah Scally Other [employer] Other 02-22-2023 09:00-7816YrL1% (BldA) [Mass fraction]98 % Yolette Scally Other [employer] Other 02-22-2023 09:00-0500Systolic blood ovzxfawj077 mm[Hg] Yolette Scally Other [employer] Other 12-30-2022 09:15-0500Body meyfyl172.26 cmDeborah Philipply Other [employer] Other 12-30-2022 09:15-0500Body mass index (BMI) [Ratio] 28.84 kg/o2Whyoblm Philipply Other [employer] Other 12-30-2022 09:15-0500Body .59 kgDeborah Philipply Other [employer] Other 12-30-2022 09:15-0500Diastolic blood tezqimyz27 mm[Hg] Yolette Scally Other [employer] Other 12-30-2022 09:15-0500Respiratory rate18 /minDeborah Scally Other [employer] Other 12-30-2022 09:15-2355KqV6% (BldA) [Mass fraction]97 % Yolette Scally Other [employer] Other 12-30-2022 09:15-0500Systolic blood leqibngn58 mm[Hg] Yolette Scally Other [employer] Other 09-30-2022 09:30-0400Body .26 cmDeminor Segally Other [employer] Other 09-30-2022 09:30-0400Body mass index (BMI) [Ratio] 28.14 kg/o1Vpvvwie Scally Other [employer] Other 09-30-2022 09:30-0400Body swykdw67.46 kgDeminor Segally Other [employer] Other 09-30-2022 09:30-0400Diastolic blood mm[Hg] Yolette Philipply Other [employer] Other 09-30-2022 09:30-0400Respiratory rate18 /minDeborah Scally Other [employer] Other 09-30-2022 09:30-1084RzK4% (BldA) [Mass fraction]99 % Yolette Scally Other [employer] Other 09-30-2022 09:30-0400Systolic blood kmbwcigr136 mm[Hg] Yolette Scally Other [employer] Other 06-28-2022 10:15-0400Body .26 cmDeameliaah Philipply Other [facility] Other 06-28-2022 10:15-0400Body mass index (BMI) [Ratio] 27.76 kg/u7Ofmfrpc Philipply Other [facility] Other 06-28-2022 10:15-0400Body gbukrf32.28 kgDeborah Scally Other [facility] Other 06-28-2022 10:15-0400Diastolic blood bxmkaztu23 mm[Hg] Yolette Scally Other [facility] Other 06-28-2022 10:15-0400Respiratory rate18 /minDeborah Scally Other [facility] Other 06-28-2022 10:15-7842IuU7% (BldA) [Mass fraction]99 % Yolette Scally Other [facility] Other 06-28-2022 10:15-0400Systolic blood ssfpfagn369 mm[Hg] Yolette Scally Other [facility] Other 03-16-2022 09:45-0400Body xggvyg007.26 cmDeborah Scally Other [facility] Other 03-16-2022 09:45-0400Body mass index (BMI) [Ratio] 27.85 kg/y3Shxkfyo Scally Other [facility] Other 03-16-2022 09:45-0400Body lgoyoe48.55 kgDeborah Scally Other ilab Other 03-16-2022 09:45-0400Diastolic blood gcdhgakl94 mm[Hg] Yolette Scally Other ilab Other 03-16-2022 09:45-0400Respiratory rate20 /minDebgibran Ge Other [facility] Other 03-16-2022 09:45-1223HtG5% (BldA) [Mass fraction]100 % Yolette Ge Other [facility] Other 03-16-2022 09:45-0400Systolic blood vpvjhtjy110 mm[Hg] Yolette Ge Other [facility] Other Encounters Encounter DateEncounter TypeCare ProviderFacilityStart: 47-15-6388ypkmsootke YOLETTE SCALLYProMedica Barlow Respiratory Hospitaltart: 01-21-2025 End: 47-36-1924tikodyckxyNEB [facility] Work Phone: Start: 01-21-2025 End: 10-77-3846Iaskeshb ReferredPeMarshfield [facility] [place] DPM MS-LAB Path Spec Howe HospStart: 01-01-2025 End: 77-74-4873whsddfmextDTH [facility] Work Phone: Start: 01-01-2025 End: 44-36-1996Ykuuwxp encounter procedureDeminor Eisenberg Philippbereket HAND COREMAKER-[facility] Work Phone: Start: 11-12-2024 End: 20-76-2486mbaixltvfzBxjzaqv [facility] ELECTRONICS INSPECTOR-C Work Phone: [facility] Work Phone: Start: 11-12-2024 End: 67-98-2147Pjrwlftf ReferredPeMarshfield Medical Center/[facility] [place] DPM MS-LAB Path Spec [facility]ias HospStart: 10-29-2024 End: 32-67-5692vqlwzsfemfMcgduyh N [facility] ELECTRONICS INSPECTOR-C Work Phone: [facility] Work Phone: start: 10-29-2024 End: 13-12-4298Mmwzjfgo ReferredPeter [facility] DPM MS-LAB Path Spec [facility] HospStart: 10-23-2024 End: 53-71-7385Ajyazk outpatient visit 10 minutesMohamed Nolberto Culver MD Work Phone: [phone] Shelby Hospital Vascular FremontComment on above: Critical limb ischemia of right lower extremity with gangrene ([facility]) (Primary Dx)Start: 10-23-2024 End: 42-83-9952oneayrliwmNHZKJMEMayo Clinic [facility] Ambulatory PPGStart: 10-17-2024 End: 92-36-3395dickvfullxFMIGOOSFulton County Health Center HospitalStart: 10-09-2024 End: 56-45-1583deflmhbrfvXoron Highlander DPM Work Phone: [facility] Work Phone: Start: 10-09-2024 End: 00-44-9542Ketupuo encounter procedurePeMarshfield Medical Center[facility] DPM Work Phone: [facility] Work Phone: Start: 10-07-2024 End: 87-02-4077kydyjxefjwENMJX D [facility] HospitalStart: 09-25-2024 End: 81-86-1557egscamimtkAUCYZBZMayo Clinic [facility] Ambulatory PPGStart: 05-78-1517Kqn-patient / Non-visitPeMarshfield Medical [facility] DPM Work Phone: [facility] Work Phone: Start: 09-23-2024 End: 14-48-6596lsfijfvcabIpgyq D [facility] CenterFacility:[facility] Hospitaltart: 09-23-2024 End: 90-59-2987Hzqexwtl ReferredPeMarshfield [facility] DPM Work Phone: [facility]-LAB Path Spec Howe HospStart: 15-12-4399Nsk-patient / Non-visitPeter [facility] DPM Work Phone: [facility] Work Phone: Start: 89-73-7813Fbr-patient / Non-visitPeter [facility] DPM Work Phone: [facility] Work Phone: Start: 38-62-2972Mmx-patient / Non-visitPeter [facility] DPM Work Phone: [facility] Work Phone: Start: 83-23-8040Ajr-patient / Non-visitPeter [facility] DPM Work Phone: [facility] Work Phone: Start: 06-18-2024 End: 22-41-6945kcmimyitnnAwfjlycUniversity [facility] Work Phone: Start: 06-18-2024 End: 27-62-4414Cxrvwwgz [facility] HAND COREMAKER Work Phone: [facility]-Lab [place] Work Phone: Start: 06-18-2024 End: 81-63-1185taimtgrhxaCqhvefllk [facility] Work Phone: Start: 06-18-2024 End: 36-45-8984Kcdyiht encounter procedureNovant Health [facility] Work Phone: Start: 04-23-2024 End: 06-29-5478Pyrbrsj encounter procedureNovant Health [facility] Work Phone: Start: 04-11-2024 End: 72-51-1272Aapaxwbne department patient visitDAVID [facility] Rehabilitationtart: 04-07-2024 End: 80-80-3857Onboxx flowsheetChristopher Edi DO Work Phone: [facility] ROUTEStart: 04-07-2024 End: 17-92-4103Itvkgr flowsheetChristopher Edi DO Work Phone: noms [facility] R[facility]TEStart: 04-07-2024 End: 34-45-6952Niefde outpatient new 45 minutesChristopher Edi DO Work Phone: no [facility] ROUTEComment on above:Neuralgia (Primary Dx); DDD (degenerative disc disease), cervicalStart: 04-07-2024 End: 74-97-0923cuiqcejqtpLSRXMYSGMOT HASSETTNot AvailableStart: 01-21-2024 End: 94-09-6636qyarcjyktkJzgvrwoztHolzer Health System Work Phone: Start: 01-21-2024 End: 75-96-4856Exbduer encounter procedureNovant Health [facility] Work Phone: Start: 09-10-2023 End: 76-20-6521qwykrjavuiOwualxbluMedina Hospital Work Phone: Start: 09-10-2023 End: 71-70-4109Dyoxqdu encounter procedureNovant Health [facility] Physician [facility] Work Phone: Start: 06-07-2023 End: 22-51-3328gbhkxyvgwcHwvmnze Scally Other [facility] Other Start: 95-26-4937Chvgzwtqg encounterLandmark Medical Center Coordinated Care ClinicStart: 06-05-2023(DM) DiabetesDeLandmark Medical Center Coordinated Care ClinicStart: 06-05-2023 End: 85-65-6665smroktcjbmOR Marcia E Braun Work Phone: [facility] [employer] Other Start: 06-05-2023 End: 28-03-5454Snxrntpfgn RecurringMD Annie Rodgers Work Phone: [facility] Work Phone: Start: 06-05-2023 End: 38-69-1975Petoang encounter procedure Annie Rodgers Work Phone: [facility]-Start: 05-18-2023 End: 60-65-0732hescjnyvzeWspsoay Scally Other ilab Other Start: 83-41-4948Ysjnfaxvp encounterDeminor Segally Firequin[facility] Coordinated Care ClinicStart: 02-28-2023 End: 46-10-7340aylnfeszveFrtmfcr Scally Other noVita [employer] Other Start: 38-87-8314Rpfyygrqn encounterDeameliaMary Starke [facility] Coordinated Care ClinicStart: 02-27-2023(DM) DiabetesDeborah Scally [facility]quin[facility] Coordinated Care ClinicStart: 02-27-2023 End: 59-68-9676wbblkkrjfjPuvfjnh Scally Other noV[employer] Other Start: 12-19-2022(DM) DiabetesDeminor SegalForest View Hospital Coordinated Care ClinicStart: 12-19-2022 End: 50-77-8128ortjhtnrtmFvbbngc Scally Other noV[employer] Other Start: 12-07-2022 End: 54-27-3264vbpxfncyofVpcjhrp Scally Other no[employer] Other Start: 85-82-6438Bxgdclcap encounterDeborah Scally [facility] Coord[facility] Care ClinicStart: 10-03-2022(DM) DiabetesDeborah Scally [facility] Coord[facility] Care ClinicStart: 10-03-2022 End: 46-99-9221wkokoumugvYilmgbv Scally Other noV[employer] Other Start: 35-41-3975Ipkvyaedf encounterDeLandmark Medical Center Coordinated Care ClinicStart: 07-24-2022 End: 27-85-0636cgqmylzvnxIvwawt Braun Other nort [facility] Other Start: 82-03-3503Supvhi outpatient new 30 minutes Anniefavio RodgersBj [facility] ClinicStart: 07-04-2022 End: 12-98-6001aincmtzoqzVbhbzjt Scally Other noAfluenta [employer]Link Other Start: 68-70-4301Ttmdilcbd encounterDeLandmark Medical Center Coordinated Care ClinicStart: 06-28-2022(DM) DiabetesDeLandmark Medical Center Coordinated Care ClinicStart: 06-28-2022 End: 72-23-9504aahzhriptcXxujfti Scally Other noV[employer] Sound Other Start: 06-26-2022 End: 91-61-8486tvgnltcwpxDcacnyt Scally Other noV[employer] Other Start: 66-49-3743Gkamtlpgs encounterLandmark Medical Center Coordinated Care ClinicStart: 06-19-2022 End: 50-81-9787edgxtazorgBkqqoce Scally Other noV[employer] Sound Other Start: 84-37-1926Kctumapvt encounterDeLandmark Medical Center Coordinated Care ClinicStart: 05-05-2022(DM) DiabetesDeLandmark Medical Center Coordinated Care ClinicStart: 05-05-2022 End: 71-01-8059zdfcnfvvsvTmqxiww Scally Other noV[employer] Other Start: 03-27-2022 End: 38-76-6752wsrnyokxqhCqclswg Scally Other noV[employer] Other Start: 43-40-3316Dryeksmot encounterDeevergreenhealthyohan [facility] Coordinated Care ClinicStart: 02-03-2022(DM) DiabetesDeLandmark Medical Center Coordinated Care ClinicStart: 02-03-2022 End: 33-64-4558ughewpwevqOkhjllv Scally Other nortStreet Library [facility] Other Start: 11-21-2021 End: 77-44-7683dvxorhkocfLhpwzgi Scally Other noV[employer] Other Start: 53-29-2181Fflntlsom encounterDeLandmark Medical Center Coordinated Care ClinicStart: 11-11-2021 End: 10-65-2739euzlqbyufcLcgnjnn Scally Other noV[employer] Other Start: 14-45-3677Hyolprtfk encounterDeLandmark Medical Center Coordinated Care ClinicStart: 11-01-2021(DM) DiabetesGomezevergreenhealthyohan [facility] Coordinated Care ClinicStart: 11-01-2021 End: 04-05-8640xnjqvlorjhFyyydeo Scally Other nort [employer] Other Start: 10-24-2021 End: 40-25-7053xyffeefkrtJnqalps Scally Other nortStreet Library Network Other Start: 96-14-9290Pqdbcoopx encounterDeLandmark Medical Center Coordinated Care ClinicStart: 09-13-2021 End: 55-85-2727xmyhgmesodEzagzod Scally Other noV[employer] Other Start: 81-04-8311Tntlcique encounterDeLandmark Medical Center Coordinated Care ClinicStart: 08-23-2021 End: 11-44-9281mpvdmsnzyjExlcqan Scally Other noV[employer] Other Start: 15-00-7245Gbynduvoh encounterLandmark Medical Center Coordinated Care ClinicStart: 08-04-2021 End: 26-63-5673tktqnsdvfwLsoucmn Gabby Other noAfluenta [employer] Other Start: 25-21-4999Rlwweyuie encounterLandmark Medical Center Coordinated Care ClinicStart: 07-20-2021(DM) DiabetesLandmark Medical Center Coordinated Care ClinicStart: 07-20-2021 End: 78-75-8077htpfykpvdkNmdtycg Scally Other noAfluenta [employer] Other Start: 04-08-2020 End: 40-76-8285Bukksgy encounter procedureINGRID RODRIGUEZFacility:H1 Procedures DateProcedureProcedure DetailPerforming ClinicianHistory of amputation of lesser toeH/O amputation of lesser toePeWetzel County Hospital Work Phone: comment on above:right great toeright second toe 11-12-2024 Plan of Treatment DateCare ActivityDetailAuthorStart: 11-25-1486Dtrhy BMI ScreeningAdult BMI ScreeningOhioHealth Grady Memorial Hospital SystemStart: 04-03-1027Mzczmqs ScreeningTobacco ScreeningOhioHealth Grady Memorial Hospital SystemStart: 19-46-8664OcdrdfipeKettering Memorial Hospitaltart: 43-04-8149Tfrlimyhc vaccinationInfluenza VaccineOhioHealth Grady Memorial Hospital SystemStart: 89-93-6733Hcdtdmf referralLake County [facility] Work Phone: Start: 71-42-7445OfcyjabwsSumma Health [facility] Campus Start: 04-07-2024 End: 87-07-7281Fyajzcg encounter ikvksjwqd72/02/2024 8:30 AM EST Office Visit [address] [place] [address] Melanie Daley, [address] [place] [address] ArrivedNOMS [facility] ROUTEComment on above:ArrivedStart: 84-64-3621Oiyixgfnwcgrog of varicella zoster vaccine Zoster (Shingles) Vaccine (1 of 2)[facility] SystemStart: 02-06-1980 DTaP,Tdap and Td Vaccines (1 - Tdap)DTaP,Tdap and Td Vaccines (1 - Tdap) [facility] SystemStart: 20-39-5236Tgyoxhputw ScreeningDepression Screening [facility] HospitalComprehensive metabolic 1999 panel - Serum or Plasma [facility] CampusComprehenve metabolic 1999 panel - Serum or PlasmaSumma Health Akron CampusPatient referralLake County [facility] Work Phone: [facility] Payers DatePayer CategoryPayerPolicy [id number] 2025Medicare [employer] [id number] [id number] 2023Medicare (Managed Care)[facility] Member Subscriber Plan / Payer (Effective 2022-Present) Name: Lan Rodriguez Member ID: [id number] Relation to Subscriber: Self Name: Lan Rodriguez Subscriber ID: [id number] Payer ID: Not on file Group ID: Not on file Type: Not on file Address: [facility] [id number] [id number] [id number] 2.0.1.036013.3.57[id number] 2.0.1.516708.3.57[id number] 2..1.519523.3.57[id number] 2.0.1.166779.3.57[id number] 2.0.1.289813.3.57[id number] 2..1.612961.3.57[id number] 2..1.468701.3.57[id number] 2.0.1.629626.3.579.2.1286 [id number] [id number] 2.840.1.5[id number] 2.840.1.1[id number] 2.0.1.972051.3.579.2.531 [id number] 2..840.1.7[id number] 2.16.840.1.704484.3.579.2.531 Social History DateTypeDetailFacilityUnknown if ever smokedEntriken [employer] Other Start: 06-17-2020 End: 69-21-0159Ltk Assigned At [facility] Other Start: 05-84-7160Lyi Assigned At [facility] Centertart: 09-10-2023 End: 07-26-5786Copthyk smoking status NHISEx-smoker (finding)[facility] CampusTobasurgical hospital of [facility] smoking status NHISTobacco smoking consumption [facility] HospitalStart: 45-25-8466Bnb assigned at birthNot on fileSaint John's Breech [facility] Start: 12-10-2014 End: 47-01-7335YvfLeyz (finding)[facility] CampusHistory of tobacco useCurrent smokerProMercy Health [facility] SystemStart: 7876Uiopvznqr beverage intakeCurrent drinker of alcohol (finding)[facility] SystemStart: 06-17-2020 End: 17-04-0465Vgzrnbyus beverage intakeOhioHealth Grady Memorial Hospital SystemChildcareUnknown [facility] Medical Equipment Procedure CodeEquipment CodeEquipment Original TextEquipment IdentifierDates Blood Sugar Diagnostic (Onetouch Ultra Test) stripStart: 92-99-0328Diibwqd [facility] Start: 27-57-8325Nuanl Sugar Diagnostic (Onetouch Ultra Test) stripStart: 06-18-2024 End: 58-59-8190Ekshpfb miscStart: 06-18-2024 End: 73-74-9749Iasfg Sugar Diagnostic (Onetouch Ultra Test) stripStart: 82-76-7079Mvybxim miscStart: 05-90-0668Yerhv Sugar Diagnostic (Onetouch Ultra Test) stripStart: 06-18-2024 End: 70-89-5769Tedcpgm miscStart: 06-18-2024 End: 96-09-3639Nffhx Sugar Diagnostic (Onetouch Ultra Test) stripStart: 58-43-8007Swmobdq miscStart: 73-86-1520Tgilg Sugar Diagnostic (Onetouch Ultra Test) stripStart: 06-18-2024 End: 13-45-8226Diborta miscStart: 06-18-2024 End: 05-15-0875Sytve Sugar Diagnostic (Onetouch Ultra Test) stripStart: 78-66-4046Asuvlox miscStart: 23-33-8714Merrh Sugar Diagnostic (Onetouch Ultra Test) stripStart: 06-18-2024 End: 46-62-1255Sovggnz miscStart: 06-18-2024 End: 42-47-5137Nusiw Sugar Diagnostic (Onetouch Ultra Test) stripStart: 88-18-9513Xibmnus miscStart: 86-93-5405Dasxi Sugar Diagnostic (Onetouch Ultra Test) stripStart: 06-18-2024 End: 88-19-0237Wmnrmhc miscStart: 06-18-2024 End: 05-69-4228Gxxeb Sugar Diagnostic (Onetouch Ultra Test) stripStart: 32-00-5531Ofdtcjw miscStart: 63-99-1760Zsfrs Sugar Diagnostic (Onetouch Ultra Test) stripStart: 06-18-2024 End: 35-81-6615Ekjidmn miscStart: 06-18-2024 End: 40-67-4286Szaiv Sugar Diagnostic (Onetouch Ultra Test) stripStart: 13-84-1108Lkgkzps miscStart: 91-99-1218Ahasf Sugar Diagnostic (Onetouch Ultra Test) stripStart: 06-18-2024 End: 75-46-0204Khobqpp miscStart: 06-18-2024 End: 06-18-2024 Goals DatePatient GoalDesired Activity/StatePersonal health goalComment on above: Evaluation of progress towards goal: Patients goal is to discharge to home. Clinical Notes 07-20-2021 to 01-01-2025 Note Date & IrwsKcdzXuigvfet84-81-1678 Evaluation note* Diagnosis Onset Date Resolution Status Admit Date BMI 25.0-25.9,adult acuteAugust 2024 9:00amDietary counseling and surveillanceacuteAugust 2024 9:00amHTN (hypertension)acuteAugust 2024 9:00amHyperlipidemia acuteAugust 2024 9:00amHypotensionacuteAugust 2024 9:00amLong term 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 insulinacuteAugust 2024 9:00amPersistent albuminuriaacute [place] 2024 9:00amType 2 diabetes mellitus with hyperglycemiaacuteAugust 2024 9:00amVitamin D deficiencyacuteAugust 2024 9:00am [facility] Work Phone: 1(107) 194-285606-19-2025 Evaluation + Plan note* Assessment & Plan Note - Jamil Culver MD - 10/23/2024 11:31 AM EDTAssociated Problem(s): Critical limb ischemia of right lower extremity with gangrene ([facility]) He has no significant occlusive disease. Plan is to continue to work with podiatry and follow up with us as needed. [facility]06-19-2025 Miscellaneous Notes* Assessment & Plan Note - Jamil Culver MD - 10/23/2024 11:31 AM EDTAssociated Problem(s): Critical limb ischemia of right lower extremity with gangrene ([facility]) He has no significant occlusive disease. Plan is to continue to work with podiatry and follow up with us as needed. documented in this encounterMercy Health Allen Hospital06-19-2025 History of Present illness Narrative* Jamil Culver MD - 10/23/2024 10:50 AM EDT Images from the original note were not included. To: NO PCP, NO PCP HPI: Lan Rodriguez is a 64 y.o. male with [...] Date Diabetes mellitus type 2, controlled ([facility]) Hyperlipidemia Hypertension Past Surgical History: Past Surgical History: Procedure Laterality Date lower ext angio Right 10/17/2024 Performed by Jamil Culver MD at [facility] Social and Family History: [...] of right lower extremity with gangrene ([facility]) - Primary Current Assessment & Plan He has no significant occlusive disease. Plan is to continue to work with podiatry and follow up with us as needed. Lan was seen today for critical limb ischemia [...] you for your understanding. documented in this encounterSelect Medical Specialty Hospital - [facility] NorthShop Points Mymich[facility] Center [id number] Evaluation note* Diagnosis Onset Date Resolution Status Admit Date BMI 25.0-25.9,adult acuteJune 2024 8:20amDietary counseling and surveillanceacuteJune 2024 8:20amHTN (hypertension)acuteJune 2024 8:20amHyperlipidemiaacuteJune 2024 8:20amHypotensionacuteJune 2024 8:20amLong term 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 insulin acuteJune 2024 8:20amPersistent albuminuriaacuteJune 2024 8:20amType 2 diabetes mellitus with hyperglycemiaacuteJune 2024 8:20amVitamin D deficiencyacuteJune 2024 8:20am [facility] Work Phone: 1(951) 929-786506-05-2025 Evaluation note* Diagnosis Onset Date Resolution Status Admit Date BMI 25.0-25.9,adult acuteJune 2024 8:20amDietary counseling and surveillanceacuteJune 2024 8:20amHTN (hypertension)acuteJune 2024 8:20amHyperlipidemiaacuteJune 2024 8:20amHypotensionacuteJune 2024 8:20amLong term 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 insulin acuteJune 2024 8:20amPersistent albuminuriaacuteJune 2024 8:20amType 2 diabetes mellitus with hyperglycemiaacuteJune 2024 8:20amVitamin D deficiencyacuteJune 2024 8:20amBMI 25.0-25.9,adultacuteAugust 2024 9:00amDietary counseling and surveillanceacuteAugust 2024 9:00amHTN (hypertension)acuteAugust 2024 9:00amHyperlipidemiaacuteAugust 2024 9:00amHypotensionacuteAugust 2024 9:00amLong term 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 insulin acuteAugust 2024 9:00amPersistent albuminuriaacuteAugust 2024 9:00am Type 2 diabetes mellitus with hyperglycemiaacuteAugust 2024 9:00amVitamin D deficiencyacuteAugust 2024 9:00am [facility] Work Phone: 1(437) 570-200812-18-2024 Evaluation note* Diagnosis Onset Date Resolution Status Admit Date BMI 25.0-25.9,adult acuteDecember 2023 8:54amDietary counseling and surveillanceacuteDecember 2023 8:54amHTN (hypertension)acuteDecember 2023 8:54amHyperlipidemia acuteDecember 2023 8:54amLong term 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 insulinacuteDecember 2023 8:54amPersistent albuminuriaacuteDecember 2023 8:54amType 2 diabetes mellitus with hyperglycemiaacuteDecember 2023 8:54amVitamin D deficiencyacuteDecember 2023 8:54amBMI 25.0-25.9,adultacuteFebruary 2024 8:25amDietary counseling and surveillanceacuteFebruary 2024 8:25amHTN (hypertension)acuteFebruary 2024 8:25amHyperlipidemiaacuteFebruary 2024 8:25amLong term 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 insulinacuteFebruary 2024 8:25am Persistent albuminuriaacuteFebruary 2024 8:25amType 2 diabetes mellitus with hyperglycemiaacuteFebruary 2024 8:25amVitamin D deficiencyacute February 2024 8:25am [facility] Work Phone: 1(393) 617-658312-02-2024 History of Present illness Narrative* Melanie Daley, DO - 04/07/2024 8:30 AM EST Images from the original note were not included. Chief complaint: Headaches Subjective Lan Rodriguez, 64 y.o., male Patient presents today [...] , wrist extensors , wrist flexor , clerical administrator strength 5/5. LUE Strength deltoid , biceps , triceps , wrist extensors , wrist flexor , clerical administrator strength 5/5. RLE Strength illopsoas, quadriceps, tibialis [...] reflex 2+ . Christy's sign negative. Coordination: Dvpyff-ft-lrvi testing and rapid alternating movements are normal [...] plan, and return instructions documented in this [facility]02-01-2024 Evaluation note* Encounter Date Diagnosis Assessment Notes Treatment Notes Treatment Clinical Notes Jun, Type 2 diabetes mellitus with hy perglycemia (ICD-10 - E11.65) ilab Other 01-30-2024 Evaluation note* Encounter Date Diagnosis Assessment Notes Treatment Notes Treatment Clinical Notes May, Type 2 diabetes mellitus with hy perglycemia (ICD-10 - E11.65) ASSESSMENT: 1. Controlled a [...] daily, maintain Humalog correction 1:40 (carries chart inwallet). Continue Vitamin D now OTC and Vitamin B12. RTC 3 mos. STILL NEEDS TO ESTABLISH WITH NEW PCP (DR BARAJAS PER INSURANCE). Notes: Seen for an assessment of current glucose pattern, changes in treatment plan, counseling andcoordination of care related to diabetes, risks, and [...] or sores that do not appear to behealing. 4. Meter: Plan to check blood glucose: [...] Request refills for Lisinopri and Ozempic 02-27-2023. May,Vitamin D deficiency (ICD-10 - E55.9)Learning About Vitamin D material was published to portal May,ietary counseling and surveillance (ICD-10 - Z71.3)Learning About Healthy Weight material was published to portal May,Hyperlipidemia (ICD-10 - E78.5)Learning About High Cholesterol material was published to portal Continue Rosuvastatin-- establish with PCP May,HTN (hypertension) (ICD-10 - I10)High Blood Pressure: Care Instructions material was published to portal Lisinopril-- continue BP good. ESTABLISH WITH PCP May,Long term 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 insulin (ICD-10 - Z79.4) May,ersistent albuminuria (ICD-10 - R80.9)Failed Jardiance, Tolerating Farxiga, increase Lisinopril last visit and tolerating. CANNOT PRODUCEURINE SAMPLE tODAY, LAB ORDER SENT TO FOLLOWUP. If persistent albuminuria could consider nephrology. Discussed management of glycemia and high blood pressure to protect kidneys. May,lbuminuria (ICD-10 - R80.9) May,MI 25.0-25.9,adult (ICD-10 - Z68.25) ilab Other 10-25-2023 Evaluation note* Encounter Date Diagnosis Assessment Notes Treatment Notes Treatment Clinical Notes Feb, Albuminuria (ICD-10 - R80.9) ilab Other 10-24-2023 Evaluation note* Encounter Date Diagnosis Assessment Notes Treatment Notes Treatment Clinical Notes Feb, Type 2 diabetes mellitus with hy perglycemia (ICD-10 - E11.65) ASSESSMENT: 1. Controlled a [...] glucose pattern, changes in treatment plan, counseling andcoordination of care related to diabetes, risks, and [...] or sores that do not appear to behealing. 4. Meter: Plan to check blood glucose: [...] Request refills for Lisinopri and Ozempic 02-27-2023. Feb,Vitamin D deficiency (ICD-10 - E55.9)Learning About Vitamin D material was published to portal Feb,ietary counseling and surveillance (ICD-10 - Z71.3)Learning About Healthy Weight material was published to portal Feb,Hyperlipidemia (ICD-10 - E78.5)Learning About High Cholesterol material was published to portal Continue Rosuvastatin-- establish with PCP Feb,HTN (hypertension) (ICD-10 - I10)High Blood Pressure: Care Instructions material was published to portal Lisinopril-- continue BP good. ESTABLISH WITH PCP Feb,Long term 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 insulin (ICD-10 - Z79.4) Feb,ersistent albuminuria (ICD-10 - R80.9)Failed Jardiance, will do trial of Farxiga. If cannot tolerate class medications or persistent albuminuria could consider nephrology. Repeat microalbuminuria after Farxiga. Discussed management of glycemia and high blood pressure to protect kidneys. Feb,MI 26.0-26.9,adult (ICD-10 - Z68.26) Feb,lbuminuria (ICD-10 - R80.9) ilab Other 08-15-2023 Evaluation note* Encounter Date Diagnosis Assessment Notes Treatment Notes Treatment Clinical Notes Dec, Vitamin D deficiency (ICD-10 - E 55.9) Learning About Vitamin D material was published to portal Dec,Type 2 diabetes mellitus with hyperglycemia (ICD-10 - E11.65) ASSESSMENT: 1. Uncontrolled, a Type 2 diabetes with A1c of 7.0%, GMI 7.2% Goal < 7% with no lows 2. Escalate LA insulin 42 u at HS (now Lantus per insurance preferred). Maintain Humalog (vs aspart) at 1:40 corrective. Taking Ozempic 0.25 mg weekly. Weight down but normal BMI will hold at dose toassure no further untoward weight loss. Escalate Metforrmin to 2 in am i with dinner. BP elevated today, conserned for persistent proteinuria, GFR remains WNL. Already on SGLt2i. Will start Lisinopril 2.[address] daily[address] for Dr. Rodgers to take over and titrate for goal <130/80 to preserve kidney health. Notes: Seen for an assessment of current glucose pattern, changes in treatment plan, counseling andcoordination of care related to diabetes, risks, and [...] or sores that do not appear to behealing. 4. Meter: Plan to check blood glucose: [...] medication issues. 6. Prescriptions: none needed 10-03-2022. Dec,ietary counseling and surveillance (ICD-10 - Z71.3)Learning About Healthy Weight material was published to portal Dec,Hyperlipidemia (ICD-10 - E78.5)Learning About High Cholesterol material was published to portal Encouraged to establish with primary care for preventative health Dec,HTN (hypertension) (ICD-10 - I10)High Blood Pressure: Care Instructions material was published to portal slightly above goal Dec,Long term 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 insulin (ICD-10 - Z79.4) Dec,ersistent albuminuria (ICD-10 - R80.9)Failed Jardiance, will do trial of Farxiga. If cannot tolerate class medications or persistent albuminuria could consider nephrology. Repeat microalbuminuria after Farxiga. Discussed management of glycemia and high blood pressure to protect kidneys. Dec,MI 27.0-27.9,adult (ICD-10 - Z68.27) ilab Other 05-30-2023 Evaluation note* Encounter Date Diagnosis Assessment Notes Treatment Notes Treatment Clinical Notes September, Vitamin D deficiency (ICD-10 - E 55.9) Learning About Vitamin D material was published to portal September,Type 2 diabetes mellitus with hyperglycemia (ICD-10 - [...] insulin to 40 u once daily. SA insulin1:40 correction only. He is experiencing product changes d/ t new medicare. Continue Metformin 500 mg BID. Will see him back in clinic in 8 weeks to assure optimization, tolerance of Ozempic and hopeful for lab review at that time. BP elevated, discussed goal <130/80 slightly elevated today-- heshould review Bi Weekly to assure normalizing to assist with kidney health. Notes: Seen for an assessment of current glucose pattern, changes in treatment plan, counseling andcoordination of care related to diabetes, risks, and [...] or sores that do not appear to behealing. 4. Meter: Plan to check blood glucose: [...] medication issues. 6. Prescriptions: none needed 10-03-2022. September,ietary counseling and surveillance (ICD-10 - Z71.3)Learning About Healthy Weight material was published to portal September,Hyperlipidemia (ICD-10 - E78.5)Learning About High Cholesterol material was published to portal Encouraged to establish with primary care for preventative health September,HTN (hypertension) (ICD-10 - I10)High Blood Pressure: Care Instructions material was published to portal slightly above goal September,Long term 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 insulin (ICD-10 - Z79.4) September,ersistent albuminuria (ICD-10 - R80.9)Failed Jardiance, will do trial of Farxiga. If cannot tolerate class medications or persistent albuminuria could consider nephrology. Repeat microalbuminuria after Farxiga. Discussed management of glycemia and high blood pressure to protect kidneys. September,MI 27.0-27.9,adult (ICD-10 - Z68.27) ilab Other 03-20-2023 Evaluation note* Encounter Date Diagnosis Assessment Notes Treatment Notes Treatment Clinical Notes Jul, Hyperlipidemia (ICD-10 - E78.5) will refill med and check labs today. Jul,Type 2 diabetes mellitus with hyperglycemia (ICD-10 - E11.65) Continued followup with diabetes clinic. Pt states he hasn't had an eye exam for 2 years - advised followup ilab Other 02-22-2023 Evaluation note* Encounter Date Diagnosis Assessment Notes Treatment Notes Treatment Clinical Notes Jun, Vitamin D deficiency (ICD-10 - E 55.9) Learning About Vitamin D material was published to portal Jun,Type 2 diabetes mellitus with hyperglycemia (ICD-10 - E11.65) ASSESSMENT: 1. Uncontrolled, a Type 2 diabetes with A1c of 7.5%, GMI 8.1 2. Discussion with patient regarding establishing with primary care for continuation of cholesteroltreatment with rosuvastatin and BP treatment with lisinopril. He states he forgot after the last appointment and just found his [facility] PCP flyer. His is working on out reach. A1c with some improvement, GMI equivocal. Ultimate goal under 7% without lows. Systemically will continue at 45 units oncedaily. He will reduce this if he has [...] glucose pattern, changes in treatment plan, counseling andcoordination of care related to diabetes, risks, and [...] or sores that do not appear to behealing. 4. Meter: Plan to check blood glucose: [...] or diabetes medication issues. 6. Prescriptions: none Jun,ietary counseling and surveillance (ICD-10 - Z71.3)Learning About Healthy Weight material was published to portal Jun,Hyperlipidemia (ICD-10 - E78.5)Learning About High Cholesterol material was published to portal Encouraged to establish with primary care for preventative health Jun,HTN (hypertension) (ICD-10 - I10)High Blood Pressure: Care Instructions material was published to portal Jun,Long term 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 insulin (ICD-10 - Z79.4) Jun,MI 28.0-28.9,adult (ICD-10 - Z68.28) Jun,ersistent albuminuria (ICD-10 - R80.9)Failed Jardiance, will do trial of Farxiga. If cannot tolerate class medications or persistent albuminuria could consider nephrology. Repeat microalbuminuria after Farxiga. Discussed management of glycemia and high blood pressure to protect kidneys. Jun,Otherinital weight increase, now declining ilab Other 02-13-2023 Evaluation note* Encounter Date Diagnosis Assessment Notes Treatment Notes Treatment Clinical Notes Jun, Type 2 diabetes mellitus with hy perglycemia (ICD-10 - E11.65) ilab Other 12-30-2022 Evaluation note* Encounter Date Diagnosis Assessment Notes Treatment Notes Treatment Clinical Notes Apr, Vitamin D deficiency (ICD-10 - E 55.9) Learning About Vitamin D material was published to portal Apr,Type 2 diabetes mellitus with hyperglycemia (ICD-10 - [...] PCP to manage cholesterol and preventative treatments. [facility] physician group primary care provider flyer given. He will continue Semglee 45 units daily. If fasting glucose is less than 100 3 of 7 days/week he will decrease by 4 units. We did discussuse of Humalog 15 minutes before meal using corrective scale of 1 unit for every 40 mg/dL above goal. He will use insulin carb ratio of 1 unit for every 10 g of carbohydrates, this was soft but givento simplify as patient currently is not calculating and therefore under using prandial insulin. We will have patient present for download with adult educator in 4 weeks and provider in 8 weeks. Notes: Seen for an assessment of current glucose pattern, changes in treatment plan, counseling andcoordination of care related to diabetes, risks, and [...] or sores that do not appear to behealing. 4. Meter: Plan to check blood glucose: [...] Prescriptions: Request Rouvastatin sent to [facility]/ [facility] Apr,ietary counseling and surveillance (ICD-10 - Z71.3)Learning About Healthy Weight material was published to portal Apr,Hyperlipidemia (ICD-10 - E78.5)Learning About High Cholesterol material was published to portal Encouraged to establish with primary care for preventative health Apr,HTN (hypertension) (ICD-10 - I10)High Blood Pressure: Care Instructions material was published to portal Apr,Long term 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 insulin (ICD-10 - Z79.4) Apr,MI 28.0-28.9,adult (ICD-10 - Z68.28) Apr,ersistent albuminuria (ICD-10 - R80.9)Failed Jardiance, will do trial of Farxiga. If cannot tolerate class medications or persistent albuminuria could consider nephrology. Repeat microalbuminuria after Farxiga. Discussed management of glycemia and high blood pressure to protect kidneys. Apr,therinital weight increase, now declining ilab Other 09-30-2022 Evaluation note* Encounter Date Diagnosis Assessment Notes Treatment Notes Treatment Clinical Notes Jan, Vitamin D deficiency (ICD-10 - E 55.9) Learning About Vitamin D material was published to portal Jan,Type 2 diabetes mellitus with hyperglycemia (ICD-10 - [...] for activation. She continue roberta. Encouraged calling [employer] for replacement of 2 sensors. We discussed decreasing Semglee of a.m. sugars start to runover 103 of 7 days in the week. He states understanding. We discussed escalating Semglee 22 units aweek after starting Farxiga if blood glucose levels continue to remain above 130 all days in a week. I will see him back in clinic in 8 weeks to reevaluate. We will consider GLP-1 in the future wouldneed to watch weight. Consider repeat C-peptide and autoantibodies with change in glycemic trends. Treatment considerations for albuminuria below 3. Patient is alert, oriented and receptive to making changes or counseling. Notes: Seen for an assessment of current glucose pattern, changes in treatment plan, counseling andcoordination of care related to diabetes, risks, and [...] or sores that do not appear to behealing. 4. Meter: Plan to check blood glucose: [...] medication issues. 6. Prescriptions: Non needed today 02-03-22Jan,ietary counseling and surveillance (ICD-10 - Z71.3)Learning About Healthy Weight material was published to portal Jan,Hyperlipidemia (ICD-10 - E78.5)Learning About High Cholesterol material was published to portal LDL 53-- Continue Crestor Jan,HTN (hypertension) (ICD-10 - I10)High Blood Pressure: Care Instructions material was published to portal Jan,Long term 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 insulin (ICD-10 - Z79.4) Jan,MI 28.0-28.9,adult (ICD-10 - Z68.28) Jan,ersistent albuminuria (ICD-10 - R80.9)Consider lisinopril 10 next visit. Failed Jardiance, will do trial of Farxiga. If cannot tolerate class medications or persistent albuminuria could consider nephrology. Repeat microalbuminuria after Farxiga on board, start date approximately 02/03/2022. Discussed management of glycemia and high blood pressure to protect kidneys. Jan,therinital weight increase, now declining ilab Other 07-18-2022 Evaluation note* Encounter Date Diagnosis Assessment Notes Treatment Notes Treatment Clinical Notes Nov, Type 2 diabetes mellitus with hy perglycemia (ICD-10 - E11.65) Nov,Long term 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 insulin (ICD-10 - Z79.4) ilab Other 06-28-2022 Evaluation note* Encounter Date Diagnosis Assessment Notes Treatment Notes Treatment Clinical Notes Oct, Vitamin D deficiency (ICD-10 - E 55.9) Learning About Vitamin D material was published to portal Oct,Type 2 diabetes mellitus with hyperglycemia (ICD-10 - [...] days in a week. He should also considerincrease if his a.m. blood glucose is greater than 153 of 7 days in a week by 1 unit. She continuesHumalog 1 unit for every 7 carbs with all intake. He should continue corrective scale 1-30 Premeal and every 4 hours if not eating. We will start him on metformin 500 mg 2 tabs ultimately 2 times perday starting with 1 tab and adding 1 tab weekly till 2 and 2. We will consider GLP-1 in the future.He did not heart elevate Jardiance, we can consider other medications in this class at a later date. We will have him do labs prior to him starting metformin. Lab slip provided from July appointment. We will have him return to clinic in 6 weeks for download with adult educator in 3 months with provider 3. Patient is alert, oriented and receptive to making changes or counseling. Notes: Seen for an assessment of current glucose pattern, changes in treatment plan, counseling andcoordination of care related to diabetes, risks, and [...] or sores that do not appear to behealing. 4. Meter: Plan to check blood glucose: [...] medication issues. 6. Prescriptions: Non needed today 11-01-21Oct, ietary counseling and surveillance (ICD-10 - Z71.3)Learning About Healthy Weight material was published to portal Oct,Hyperlipidemia (ICD-10 - E78.5)Learning About High Cholesterol material was published to portal LDL 53-- Continue Crestor Oct,HTN (hypertension) (ICD-10 - I10)High Blood Pressure: Care Instructions material was published to portal Oct,Long term 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 insulin (ICD-10 - Z79.4) Oct,MI 27.0-27.9,adult (ICD-10 - Z68.27) Oct,therinital weight increase, now declining ilab Other 03-16-2022 Evaluation note* Encounter Date Diagnosis Assessment Notes Treatment Notes Treatment Clinical Notes Jul, Vitamin D deficiency (ICD-10 - E 55.9) Learning About Vitamin D material was published to portal Jul,Type 2 diabetes mellitus with hyperglycemia (ICD-10 - [...] increase this. 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 He will request a new accounts receivable administrator from [employer]. We also discussed using cell phone as [...] 133 days in a week he can increasedose by 1 unit. Decreased need of Humalog 1-40 insulin sliding scale shows basal dose optimization.He is to start Jardiance and monitor blood glucose to assure no need for reduction. We can considerGLP-1 in the future. He appears to have some prandial elevations. We will check labs including a C-peptide based on patient's morphology. Patient is transitioning from previous PCP. He is given information regarding [facility] physicians to include Dr. Vela who may be geographically desirable. I did send him with written to do list 1 call [employer] for replacement of accounts receivable administrator. To download [employer] matthew on cell phone for next sensor if desired 3 call and establish with new PCP. Reports understanding and amenable too treatment plan 3. Patient is alert, oriented and receptive to making changes or counseling. Notes: Seen for an assessment of current glucose pattern, changes in treatment plan, counseling andcoordination of care related to diabetes, risks, and [...] or sores that do not appear to behealing. 4. Meter: Plan to check blood glucose: [...] diabetes medication issues. 6. Prescriptions: Jardiance sent [facility]/[place] 07-20-21Jul,2Dietary counseling and surveillance (ICD-10 - Z71.3) Learning About Healthy Weight material was published to [employer] Jul,Hyperlipidemia (ICD-10 - E78.5) Learning About High Cholesterol material was published to [employer] LDL 53-- Continue Crestor Jul,HTN (hypertension) (ICD-10 - I10) High Blood Pressure: Care Instructions material was published to [employer] Jul,Long term 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 insulin (ICD-10 - Z79.4) Jul,2BMI 27.0-27.9,adult (ICD-10 - Z68.27) Jul,2Otherinital weight increase, now declining [employer] Other Chief complaint+Reason for visit Narrative* Chief Complaint DMN f/u-METER Reason for Visit BMI 25.0-25.9,adult Dietary counseling and surveillance HTN (hypertension) Hyperlipidemia [facility]iary 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 insulin Persistent albuminuria Type 2 diabetes mellitus with hyperglycemia Vitamin D deficiency [facility] Work Phone: Evaluation noteNo InformationNortConemaugh Miners Medical Center [facility] Other Evaluation noteNo assessment information available [facility] Work Phone: Evaluation note* Diagnosis Onset Date Resolution Status BMI 25.0-25.9,adult acuteDietary counseling and surveillanceacuteHTN (hypertension)acute HyperlipidemiaacuteLong term 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 insulinacutePersistent albuminuria acuteType 2 diabetes mellitus with hyperglycemiaacuteVitamin D deficiencyacute [facility] Work Phone: Evaluation note* Diagnosis Neuralgia- Primary Unspecified neuralgia, neuritis, and radiculitis DDD (degenerative disc disease), cervical Degeneration of cervical intervertebral disc documented in [facility] encounter [facility]* Diagnosis Onset Date Resolution Status Admit Date BMI 25.0-25.9,adult acuteJune 2024 8:20amDietary counseling and surveillanceacuteJune 2024 8:20amHTN (hypertension)acuteJune 2024 8:20amHyperlipidemiaacuteJune 2024 8:20amLong term 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 insulinacuteJune 2024 8:20amPersistent albuminuriaacuteJune 2024 8:20amType 2 diabetes mellitus with hyperglycemia acuteJune 2024 8:20amVitamin D deficiencyacuteJune 2024 8:20am [facility] Work Phone: Evaluation note* Diagnosis Critical limb ischemia of right lower extremity with gangrene (CMS-HCC)- Primary PAD (peripheral artery disease) Unspecified peripheral vascular disease Gangrene (CMS-HCC) Gangrene Critical limb ischemia of right lower extremity with gangrene (CMS-HCC)- Primary [facility] Narrative - Reported* Type Description Date Medical History Herpes zoster dermatitis Medical HistoryAbscess, lip- PICC line prolonged ABX 2017Medical HistoryNeck sprain, strainMedical HistoryHypertension, controlledMedical History HyperlipidemiaMedical HistoryDiabetes, type 2Medical HistoryHx of Covid 19 (04/2020)Surgical HistoryPICC [id number] History[facility] [id number] ilab Other Hospital Discharge instructionsAmbulatory Orders* Referral to Nephrology Time Frame: 01/01/25, Location: None Selected [facility] Work Phone: InstructionsNot on filedocumented in this encounter [facility] SystemReason for referral (narrative)* Reason Nail deformity, Type II Diabetes Referral sent , patient informed Diagnosis 1 Type 2 diabetes reji itus with hyperglycemia (E11.65) Diagnosis 2 Nail deformity (L60. 8) Referral Organization [facility] Referring Provider First Name Yolette Referring Provider Last Name Gabby Referring Provider Specialty Nurse Pract itioner Referred Organization [facility] Referred Provider NORY AHMADI Referred Address ,[place], [place],[address] Referred Provider Specialty Podiatry - S urgical Chiropody Referral Priority Routine General Notes Yolette Benavides 06/08 09:03:14 AM > Per Nelia at Dr Montes office once referral is received she will call patient for apptJennifer Deborah 06/30/2022 09:23:23 AM > Referral faxed, for some reason last office note did not attach so I did fax the last office note seperatly thru our free standing office fax. and informedYolette Avitia 06/30/2022 09:30:52 AM >Patient informed, and given Dr Montes phone number in case he doesn't hear from them.Clinical NotesDr Nory Ahmadi# [phone] ilab Other Reason for referral (narrative)No reason for referral information availableSub[facility] Work Phone: Summary Purpose Family History No Family History Records Found Relationship Condition Age at Onset Recorded Date/T wilber brother Diabetes mellitus Unknown fatherMalignant neoplasmUnknownDeceasedUnknownNot SpecifiedDeceasedUnknown Diabetes mellitusUnknown Relationship Condition Age at Onset Recorded Date/T wilber brother Diabetes mellitus Unknown fatherMalignant neoplasmUnknownDeceasedUnknownmotherDeceasedUnknownDiabetes mellitusUnknown Advance Directives No Advanced Directives Records Found Advance Directive Response Recorded Date/ Time Advance Directives No June 9:22am Advance Directive Response Recorded Date/ Time Advance Directives No June 10:22am Date ActivatedDate InactivatedComments09/16/2016 8:20 PM09/22/2016 8:22 PMDate ActivatedDate InactivatedComments09/16/2016 1:01 PM09/16/2016 8:20 PM Chief Complaint and Reason for [...] 2024 8:54am Hyperlipidemia April 23, 2024 8:54am [facility] 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 insulin Decee r 2023 8:54am Persistent albuminuria April 23 8:54am Type 2 diabetes mellitus with hyperglyce samir April 23, 2024 8:54am Vitamin D deficiency April 23, 2024 8:54am BMI 25.0-25.9,adult June 18, 2024 8:25am Dietary counseling and surveillance [facility] 2024 8:25am HTN (hypertension) June 18, 2024 8:25am Hyperlipidemia June 18, 2024 8:25am 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 [id number] 8:25am Persistent [...] m Hyperlipidemia October 09, 2024 8:20a m 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 October [...] m Hypotension October 09, 2024 8:20a m penit[facility]iary current use of insulin October 8:20am Persistent [...] m Hypotension October 09, 2024 8:20a m penitentiary current use of insulin October 8:20am Persistent albuminuria October 09, 2024 8: 20am Type 2 diabetes mellitus with hyperglyce samir October 09, 2024 8:20am Vitamin D deficiency October 09, 2024 8:20 am BMI 25.0-25.9,adult January 01, 2025 9: 00am Dietary counseling and surveillance [facility] 28th, 2025 9:00am HTN (hypertension) January 01, 2025 9: 00am Hyperlipidemia January 01, 2025 9: 00am Hypotension January 01, 2025 9: 00am penitentiary current use of insulin January 01, 2025 [...] 00am Hypotension January 01, 2025 9: 00am penitentiary current use of insulin January 01, 2025 [...] section and content) DATE CREATED AUTHOR 04/12/2020 [facility] DATE CREATED AUTHOR AUTHOR'S ORGANIZ ATION 04/07/2024 [facility] EPIC DATE CREATED AUTHOR AUTHOR'S ORGANIZ ATION 10/20/2024 [facility] DATE CREATED AUTHOR AUTHOR'S ORGANIZ ATION 10/26/2024 [facility] DATE CREATED AUTHOR AUTHOR'S ORGANIZ ATION 02/07/2025 [facility] DATE CREATED AUTHOR AUTHOR'S ORGANIZ ATION 02/26/2025 [facility] REASON FOR VISIT (unrecogniz ed section and content) ReasonCommentsCritical limb ischemia of right lower extremity with gangrert leg angiogram 10-17-24 Care Teams (unrecognized sec tion and content) Team Status: Active Member Role Status Dates NON STAFF Primary Care Provider Active Team Status: Inactive Member Role Status Dates Yolette Ge APRN Attending Provider Active Start: October 09, 2024 End: October 09, 2024NON STAFFPrimary Care ProviderActiveStart: October 09, 2024 End: October 09, 2024 Team Status: Inactive Member Role Status Dates Mayra Spears DPM MS Attending Provider Active Start: October 29, 2024 End: October 29, 2024 Team Status: Inactive Member Role Status Dates Mayra Spears DPM MS Attending Provider Active Start: November 12, 2024 End: November 12, 2024 Team Status: Inactive Member Role Status Dates Yolette Ge APRN Attending Provider Active Start: January 01, 2025 End: January 01, 2025NON STAFFPrimary Care ProviderActiveStart: January 01, 2025 End: January 01, 2025 Team Status: Active Member Role Status Dates Francisco Walters , ELECTRONICS INSPECTOR-C Primary Care Provider Active Start: September 20, 2024 Krys Hummel , MDAttending ProviderActiveStart: September 20, 2024 Team Status: Active Member Role Status Dates Francisco Walters , ELECTRONICS INSPECTOR-C Primary Care Provider Active Start: September 21, 2024 Shaikh Shaji MDAttending ProviderActiveStart: September 21, 2024 Team Status: Active Member Role Status Dates Francisco Walters , ELECTRONICS INSPECTOR-C Primary Care Provider Active Start: September 22, 2024 Shaikh Shaji MDAttending ProviderActiveStart: September 22, 2024 Team Status: Active Member Role Status Dates Francisco Walters , ELECTRONICS INSPECTOR-C Primary Care Provider Active Start: September 23, 2024 Shaikh Shaji , MDAttending ProviderActiveStart: September 23, 2024 Team Status: Inactive Member [...] Status: Inactive Member Role Status Dates Yolette C Scally , HAND COREMAKER Attending Provider Active Start: June 05, 2023 End: June 05, 2023 Team Status: Inactive Member Role Status Dates Yolette Ge , HAND COREMAKER ActiveStart: June 05, 2023 End: June 05, 2023Hussain Connor Care ProviderActiveStart: June 05, 2023 End: June 05eborah C Philipply , APRNAttending ProviderActiveStart: June 05, 2023 End: June 05, 2023 Team Status: Inactive Member Role Status Dates Annie Rodgers MD Primary Care Provider Active Start: September 10, 2023 End: September 09eborah C Philipply , APRNAttending ProviderActiveStart: September 10, 2023 End: September 10, 2023 Team Status: Inactive Member Role Status Dates Annie Rodgers MD Primary Care Provider Active Start: January 21, 2024 End: January 20eborah C aGbby , APRNAttending ProviderActiveStart: January 21, 2024 End: January 21, 2024Team MemberRelationshipSpecialtyStart DateEnd Date Melanie Daley DO [address] [place], [place] [id number] Referring NzfdknmwhLzmeurtnf85/2/24 Leticia Blanco NP [address] [place] [id number] Nurse AipnfiuvpqzoFwriaqhje21/2/24 Suzanna Ybarra NP [address] [place] [id number] Nurse CvmlenhqqsioPbasqfyqf83/2/24 Team Status: Inactive Member Role Status Dates Annie Rodgers MD Primary Care Provider Active Start: April 23, 2024 End: April 23eborakasie Ge , APRNAttending ProviderActiveStart: April 23, 2024 End: April 23, 2024 Team Status: Inactive Member Role Status Dates Yolette Ge , HAND COREMAKER Attending Provider Active Start: June 18, 2024 End: June 18, 2024NON STAFFPrimary Care ProviderActiveStart: June 18, 2024 End: June 18, 2024 Team Status: Active Member Role Status Dates FREDI Salinas Primary Care Provider Active Team Status: Inactive Member Role Status Dates Yolette Ge APRN Attending Provider Active Start: June 18, 2024 End: June 18, 2024Team MemberRelationshipSpecialtyStart DateEnd Date No Pcp, [place] [address] [facility] Team Status: Inactive Member Role Status Dates [...] BE BASED ON THE PRIMARY CLINICAL RECORDS. [employer] provides no warranty or guarantee of the accuracy or completeness of information in this document.
== END 2025-03-04 09:19 | disposition home or self-care (01) ==
LOC: WC 09:18
PROVIDERS: Visit Provider Podiatrist Foot & Ankle Surgery
DX: I70.261 Atherosclerosis of native arteries of extremities with gangrene, right leg (principal); L97.514 Non-pressure chronic ulcer of other part of right foot with necrosis of bone
CPT/HCPCS: G0463

== ENCOUNTER 2025-03-25 09:08 | Outpatient (OUT) | payer MEDICARE, SELFPAY ==
--- OUTSIDE RECORDS SUMMARY | 2025-03-25 09:15 | XMS_ITS | CCD ---
Author Organization [facility] Care Team Providers Care Sales Engineering Manager Name Role Phone MARCEL PAIZ Attending Unavailable NORY WAN Consulting Unavailable ANNIE RODGERS Primary Care Unavailable MARCEL PAIZ Admitting Unavailable MARCEL PAIZ Consulting Unavailable Yolette Ge Unavailable Annie Rodgers Unavailable MD Annie Rodgers Primary Care Provider [phone] TIFFANIE Ge Attending Provider Unavailable Primary Care Provider UnavailMelanie Hale DO Unavailable Francis BASKET FILLER, Leticia Unavailable Tate BASKET FILLER, Suzanna Unavailable MELANIE DALEY Attending Unavailable Yolette Ge APRN Attending Provider Mayra Spears DPM Attending Provider [phone] AUGUSTO, MOHAMED F Admitting Unavailable AUGUSTO, MOHAMED F Attending Unavailable NO PCP, NO PCP Primary Care Unavailable No Pcp, No Pcp Primary Care Provider Unavailoctaviano FLOODAN, MOHAMED F Attending Unavailable MAYRA SPEARS Referring Unavailable NO PCP, NO PCP Primary Care Unavailable AUGUSTO, MOHAMED F Attending Unavailable NO PCP, NO PCP Primary Care Unavailable Selena BASKET FILLER-C, Alyssaa N Primary Care Provider [phone] Krys Hummel MD Attending Provider Shaikh Girard MD Attending Provider Desiree Garcia CMA Attending Provider Unavaila Yolette Clifton APRN Attending Provider NON STAFF Primary Care Provider UnavailMayra Shepard DPM Attending Provider Yolette Ge APRN Attending Provider NON STAFF Primary Care Provider UnavailMayra Shepard Attending Unavailable Mayra Spears Admitting Unavailable Mayra Spears Admitting Unavailable Mayra Spears Attending Unavailable Yolette Ge Attending Unavailable Yolette Ge Admitting Unavailable Mayra Spears Admitting Unavailable Mayra Spears Attending Unavailable Mayra Spears Attending Unavailable Mayra Spears Admitting Unavailable PARRISH LOCKE Attending Unavailable NO PCP, NO PCP Primary Care Unavailable MAYRA SPEARS Referring Unavailable NO PCP, NO PCP Primary Care Unavailable YOLETTE GE Referring Unavailable NO PCP, NO PCP Primary Care Unavailable Yolette Ge APRN Attending Provider NON STAFF Primary Care Provider UnavailMayra Shepard DPM Attending Provider Ninoska Yusuf MD Attending Provider NO FAMILY, PHYSICIAN Primary Care Provider Unava ilable Allergies Allergy ClassificationReported Allergen(s)Allergy TypeDate of OnsetReaction(s) Facility (1 source)LisinoprilDrug Jqqqzrv87-28-6536lbdafsxlzyRucrecpukMansfield [facility] Medications Current Medications MedicationDrug Class(es)DatesSig (Normalized)Sig (Original)0.25 MG, 0.5 MG Dose 3 ML semaglutide 0.68 MG/ML Pen Injector [Ozempic] (5 sources)Start: 84-19-0367Olqnhfy (0.25 or 0.5 MG/DOSE) 2 MG/3ML 0.25 mg Subcutaneous weely for 90 days September, ActiveOzempic (0.25 or 0.5 MG/DOSE) 2 MG/3ML 0.5 mg Subcutaneous weely for 90 days COPAY CARD ActiveOzempic (0.25 or 0.5 MG/DOSE) 2 MG/3ML 0.25 mg Subcutaneous weely for 90 days COPAY CARD Active aspirin 81 mg chewable tablet (1 source)Platelet Aggregation Inhibitor, Nonsteroidal Anti-inflammatory Drug Start: 85-80-7649hplrxmp 81 mg chewable tablet Chew 1 tablet (81 mg total) and swallow in the morning. 90 tablet 4 09/25/2024 ActiveBlood-Glucose Meter (Onetouch Ultra2 Meter) mis (16 sources)Start: 56-49-0816Cvwzu-Glucose Meter (Onetouch Ultra2 Meter) [facility] [place] 0 .Route 1 0 June 18, 2024 9:07am Dx E11.65 defer to insurance preferred As directed test blood sugar three times dailyStart: 25-40-4591Vtaiw- Glucose Meter (Onetouch Ultra2 Meter) [facility] [place] Active 0 .Route 1 June 18, 2024 10:07am As directed test blood sugar three times dailyStart: 73-73-5967Ovoya- Glucose Meter (Onetouch Ultra2 Meter) [facility] [place] Active 0 .Route 1 June 18, 2024 9:07am As directed test blood sugar three times dailyStart: 06-18-2024 End: 82-35-3921Rokco-Glucose Meter (Onetouch Ultra2 Meter) [facility] [place] Discontinued 0 .Route June 18, 2024 1:00am June 18, 2024 10:08am As directedStart: 06-18-2024 End: 28-70-4632Hwrqb-Glucose Meter (Onetouch Ultra2 Meter) [facility] [place] Discontinued 0 .Route June 18, 2024 12:00am June 18, 2024 9:08am As directed cholecalciferol 0.05 mg oral capsule (17 sources)Vitamin DStart: 47-19-7662qnxs 1 capsule by mouth once daily Cholecalciferol (Vitamin D3) 50 mcg (2,000 unit) capsule Active 100 MCG PO Daily September 04, 2023 11:00pm Complies with drug therapyStart: 35-07-3510kmdq 1 capsule by mouth every weekCholecalciferol 1.25 MG (42606 UT) 1 capsule Orally weekly for 56 days Then D3 OtC 4000 UT daily 2022 Activetake 1 capsule by mouth every weekCholecalciferol 100 MCG (4000 UT) 1 capsule Orally weekly for 56 days Then D3 OtC 4000 UT daily Activetake 1 capsule by mouth every week Cholecalciferol 1.25 MG (96537 UT) 1 capsule Orally weekly for 56 days Then D3 OtC 4000 UT daily Activeciprofloxacin 500 mg oral tablet (3 sources)Quinolone AntimicrobialStart: 65-37-3447leqt 1 tablet by mouth twice dailyCiprofloxacin Hcl 500 mg tablet Active 500 MG PO Twice daily January 01, 2025 11:00pm Complies with drug therapyStart: 21-41-8067wrio 1 tablet by mouth in the morning, then take 1 tablet by mouth at bedtimeciprofloxacin HCl (CIPRO) 500 mg tablet Take 1 tablet (500 mg total) by mouth in the morning and 1 tablet (500 mg total) before bedtime. 09/23/2024 Activecyclobenzaprine hydrochloride 10 mg oral tablet (1 source)Muscle RelaxantStart: 33-42-0446ktch 1 tablet by mouth twice daily as needed for muscle spasmscyclobenzaprine (FLEXERIL) 10 mg tablet Indications: Closed fracture of multiple ribs of right side, initial encounter Take 1 tablet (10 mg total) by mouth 2 (two) times a day as needed for muscle spasms. 10 tablet 04/11/2024 Activedoxycycline monohydrate 100 mg oral capsule (1 source)Tetracycline-class DrugStart: 34-83-5627nfsa 1 capsule by mouth in the morning, [...] patient has coupon card ActiveFlash Glucose Scanning [place] (Freestyle Roberta 2 [place]) [facility] [place] (20 sources)Start: 03-14-6418Djpjg Glucose Scanning [place] (Freestyle Roberta 2 [place]) misc Active 0 .MEDSUPPLY 1 September 062:58pm Dx E11.65 As directed to monitor blood sugarStart: 26-48-4067Vdmis Glucose Scanning [place] (Freestyle Roberta 2 [place]) misc Active 0 .MEDSUPPLY September 07, 2023 12:58pm As directed to monitor blood sugarStart: 46-91-8127Wwutd Glucose Scanning [place] (Freestyle Roberta 2 [place]) misc Active 0 .MEDSUPPLY September 07, 2023 1:58pm As directed to monitor blood sugarStart: 09-07-2023 End: 37-22-1917Jtdfw Glucose Scanning [place] (Freestyle Roberta 2 [place]) misc Discontinued 0 .MEDSUPPLY 1 0 September 06, 2023 11:00pm September 07, 2023 1:01pm As directedStart: 09-07-2023 End: 31-44-1207Neuas Glucose Scanning [place] (Freestyle Roberta 2 [place]) misc Discontinued 0 .MEDSUPPLY September 06, 2023 11:00pm September 07, 2023 1:01pm As directedStart: 09-07-2023 End: 23-98-8149Okhwu Glucose Scanning [place] (Freestyle Roberta 2 [place]) misc Discontinued 0 .MEDSUPPLY September 07, 2023 12:00am September 07, 2023 2:01pm As directedFlash Glucose Sensor (Freestyle Roberta 2 Sensor) kit (20 sources)Start: 34-40-9575Zqkfl Glucose Sensor (Freestyle Roberta 2 Sensor) kit Active 0 .MEDSUPPLY 10 07June 18, 2024 8:51am Dx E11.65 As directed Change every 14 DaysStart: 21-08-3639Zkgbm Glucose Sensor (Freestyle Roberta 2 Sensor) kit Active 0 .MEDSUPPLY June 18, 2024 9:51am As directed Change every 14 DaysStart: 15-41-2605Pnzwt Glucose Sensor (Freestyle Roberta 2 Sensor) kit Active 0 KIT .MEDSUPPLY June 18, 2024 9:51am As directed Change every 14 Days Start: 15-81-2218Lvnwg Glucose Sensor (Freestyle Roberta 2 Sensor) kit Active 0 KIT .MEDSUPPLY June 18, 2024 8:51am As directed Change every 14 Days Start: 03-24-2024 End: 48-29-9340Kpelj Glucose Sensor (Freestyle Roberta 2 Sensor) kit Discontinued 0 .MEDSUPPLY 10 07March 24, 2024 9:37am June 18, 2024 8:51am Dx E11.65 As directed Change every 14 DaysStart: 03-24-2024 End: 33-34-2133Utpzn Glucose Sensor (Freestyle Roberta 2 Sensor) kit Discontinued 0 .MEDSUPPLY March 240:37am June 18, 2024 9:51am As directed Change every 14 DaysStart: 03-24-2024 End: 96-25-4939Opqwr Glucose Sensor (Freestyle Roberta 2 Sensor) kit Discontinued 0 KIT .MEDSUPPLY March 24, 2024 10:37am June 18, 2024 9:51am As directed Change every 14 DaysStart: 03-24-2024 End: 98-27-8279Mqume Glucose Sensor (Freestyle Roberta 2 Sensor) kit Discontinued 0 KIT .MEDSUPPLY March 24, 2024 9:37am June 18, 2024 8:51am As directed Change every 14 DaysStart: 03-24-2024 End: 65-43-8791Thdyx Glucose Sensor (Freestyle Roberta 2 Sensor) kit Discontinued 0 .MEDSUPPLY 6 March 24, 2024 12:00am March 24, 2024 9:37am As directed Change every 14 DaysStart: 03-24-2024 End: 02-25-7106Qekjh Glucose Sensor (Freestyle Roberta 2 Sensor) kit Discontinued 0 .MEDSUPPLY March 2441:00am March 24, 2024 10:37am As directed Change every 14 DaysStart: 03-24-2024 End: 47-93-3105Dvfzk Glucose Sensor (Freestyle Roberta 2 Sensor) kit Discontinued 0 KIT .MEDSUPPLY March 24, 2024 1:00am March 24, 2024 10:37am As directed Change every 14 DaysStart: 03-24-2024 End: 82-94-7690Ftfmr Glucose Sensor (Freestyle Roberta 2 Sensor) kit Discontinued 0 KIT .MEDSUPPLY March 24, 2024 12:00am March 24, 2024 9:37am As directed Change every 14 DaysStart: 09-05-2023 End: 84-72-0883Rssgx Glucose Sensor (Freestyle Roberta 2 Sensor) kit Discontinued EACH .ROUTE .MEDSUPPLY September 05, 2023 12:00am March 24, 2024 10:36am As directedStart: 09-05-2023 End: 81-58-3210Rfzvh Glucose Sensor (Freestyle Roberta 2 Sensor) kit Discontinued EACH .ROUTE .MEDSUPPLY 1 September 04, 2023 11:00pm March 24, 2024 9:36am As directedStart: 32-70-9228Bvsns Glucose Sensor (Freestyle Roberta 2 Sensor) kit Active EACH .ROUTE .MEDSUPPLY 1 September 05, 2023 12:00am As directedFreeStyle Roberta 2 [place] - (20 sources)Start: 59-11-4060NsymKeqcr Roberta 2 [place] - as directed SQ 5 x day [...] 100 unt/ml pen injector (20 sources)Insulin AnalogStart: 84-56-1273jakcaet aspart, niacinamide, 100 unit/mL (3 mL) insulin pen 01/21/2024 ActiveStart: 60-89-2988Puubycx Aspart (Niacinamide) (Fiasp Flextouch U-100 Insulin) 100 unit/mL (3 mL) insulin pen Active 1 sliding scale dose SUBCUT Use as Directed January 20, 2024 11:00pm Complies with drug therapyStart: 09-05-2023 End: 85-38-1788Pgqgwms Aspart U-100 (Novolog Flexpen U-100 Insulin) 100 unit/mL (3 mL) insulin pen Discontinued SUBCUT September 04, 2023 11:00pm September 10, 2023 7:11am FreeTextSi:40 ISS Subcutaneous QID; Note: Source Status: Not- Taking\PRNHAS LISPRO, ASPART BACK UP; Refills: 1; Qty: 30 ml; Provider: Gabby De La Vega CStart: 33-31-2419Fgtre FlexTouch 100 UNIT/ML ISS 1:40 Subcutaneous 4 x daily for 90 days Expect up to 50 u per day Jun, ActiveNovoLOG FlexPen 100 UNIT/ML 1:40 ISS Subcutaneous QID for 90 days HAS LISPRO, ASPART BACK UP Not-Taking/PRN3 ml insulin glargine 100 unt/ml pen injector (20 sources)Insulin AnalogStart: 04-87-9058oqjqzs 50 [IU] by subcutaneous injection once daily in the eveningInsulin Glargine 100 unit/mL (3 mL) insulin pen Active 38 UNIT SUBCUT Every evening 45 1 October 09, 2024 10:50am titrate to 50 u once daily, has written instructions Complies with drug therapyStart: 04-23-2024 End: 98-22-5315ohukhx 60 [IU] by subcutaneous injection once daily in the eveningInsulin Glargine 100 unit/mL (3 mL) insulin pen Discontinued 40 UNIT SUBCUT Every evening 60 April 23, 2024 10:46am October 09, 2024 10:56am titrate to 60 u once daily, has written instructionsStart: 02-15-2024 End: 48-34-8872lqzsqy 60 [IU] by subcutaneous injection once daily in the eveningInsulin Glargine 100 unit/mL (3 mL) insulin pen Discontinued 38 UNIT SUBCUT Every evening 60 February 15, 2024 12:39pm April 23, 2024 9:30am titrate to 60 u once daily, has written instructionsStart: 01-21-2024 End: 73-00-5623onjejx 60 [IU] by subcutaneous injection once daily in the eveningInsulin Glargine 100 unit/mL (3 mL) insulin pen Discontinued 40 UNIT SUBCUT Every evening 60 January 21, 2024 9:36am February 15, 2024 12:40pm titrate to 60 u once daily, has written instructionsStart: 09-10-2023 End: 04-94-9634bfsigi 60 [IU] by subcutaneous injection once daily in the eveningInsulin Glargine 100 unit/mL (3 mL) insulin pen Discontinued 42 UNIT SUBCUT Every evening 37.8 90 2023 7:44am January 21, 2024 9:16am titrate to 60 u once daily, has written instructionsStart: 09-05-2023 End: 98-08-5565ypnbhg 42 [IU] by subcutaneous injection once daily in the eveningInsulin Glargine 100 unit/mL (3 mL) insulin pen Discontinued 42 UNIT SUBCUT Every evening September 04, 2023 11:00pm September 10, 2023 7:47amStart: 56-81-8469Lclzip SoloStar 100 UNIT/ML 42 U Subcutaneous AT HS for 90 days TITRATE TO 60 U PER DAY Dec, ActiveStart: 85-71-1654Qnertmh 100 UNIT/ML as directed Subcutaneous Expect up to 60 u per day (ISS 1:40) Jul, Activ einject 0.55 mL by subcutaneous injection once dailyinsulin [...] per day Active inject 45 [IU] by subcutaneous injection once dailySemglee 100 UNIT/ML 45 units Subcutaneous Daily insurance changed from Lantus to Semglee Activelidocaine 0.05 mg/mg medicated patch (1 source)Antiarrhythmic, Amide Local AnestheticStart: 42-44-4228frkyc 1 dose transdermal route once daily, then apply 1 dose transdermal route every twelve hourslidocaine (LIDODERM) 5 % Indications: Closed fracture of multiple ribs of right side, initial encounter Place 1 patch on the skin daily. Remove & Discard patch within 12 hours or as directed by 30 patch 04/11/2024 Mlmcxe18 hr metFORMIN hydrochloride 500 mg extended release oral tablet (20 sources)BiguanideStart: 09-10-2023 End: 12-12-0417xvmu 1 tablet by mouth once daily at dinnerMetformin 500 mg tablet extended release 24 hr Active 0 PO Daily 270 0 March 16, 2025 4:56pm 2tabs with breakfast, one tab with dinner Complies with drug therapyStart: 12-17-6892miqh 2 tablets by mouth once daily at breakfast, then take 1 tablet by mouth at dinnerMetformin Active 1500 MG PO Daily 270 90 September 10, 2023 8:41am 2 tabs with breakfast, one tab with dinnerStart: 09-10-2023 End: 92-11-3382Rxvkjolow 500 mg tablet extended release 24 hr Discontinued 1000 MG PO .am September 10, 2023 7:12am April 23, 2024 12:37pm On Hold: combine in one entryStart: 09-10-2023 End: 05-05-8362uams 1 tablet by mouth once daily in the eveningMetformin 500 mg tablet extended release 24 hr Discontinued 500 MG PO Every evening September 09, 2023 11:00pm September 10, 2023 7:47amStart: 09-05-2023 End: 26-25-4617Hkuoenrke 500 mg tablet extended release 24 hr Discontinued 1000 MG PO Twice daily September 031:00pm September 10, 2023 7:14amStart: 09-05-2023 End: 50-08-7217Avdraqtua Active 1000 MG PO .am September 10, 2023 8:12am On Hold: combine in one entryStart: 88-91-5091hxxe 1 tablet by mouth twice daily at [...] PM Orally Twice daily for 90 days ActiveOXcarbazepine 150 mg oral tablet (11 sources)Anti-epileptic AgentStart: 04-07-2024 End: 22-99-6226vold 1 tablet by mouth once dailyOxcarbazepine 150 mg tablet Active 150 MG PO Daily April 23, 2024 12:00am Complies with drug therapy ozempic (0.25 or 0.5 mg/dose) 2 mg/3ml solution pen-injector (4 sources)Ozempic (0.25 or 0.5 MG/DOSE) 2 MG/3ML 0.5 mg Subcutaneous weely for 90 days COPAY CARD Activepen needle, diabetic (Novofine 32) (10 sources)Start: 45-48-3189ler needle, diabetic (Novofine 32) Active .Route September 04, 2023 11:00pmStart: 85-80-9343wjw needle, diabetic (Novofine 32) Active .Route September 05, 2023 12:00amStart: 64-03-4258jkj needle, diabetic (Novofine 32) Active .ROUTE September 05, 2023 12:00amReliOn Prime Monitor - (20 sources)ReliOn Prime Monitor - as directed ActiveReliOn Prime Test - (20 sources)ReliOn Prime Test - as directed In Vitro Activerosuvastatin calcium 40 mg oral tablet (20 sources)HMG-CoA Reductase InhibitorStart: 01-14-5867yvzh 1 tablet by mouth once dailyRosuvastatin 40 mg tablet Active 40 MG PO Daily September 04, 2023 11:00pm Complies with drug therapySemaglutide (17 sources)Start: 00-55-3093ykesjq 1 mg by subcutaneous injection every week Semaglutide (Ozempic) 1 mg/dose (4 mg/3 mL) pen injector Active 1 MG SUBCUT every week 3 3 2024 9:37am patient will have BRAYDEN voucher information Complies with drug therapyStart: 61-86-1681pkchmx 1 mg by subcutaneous injection every weekSemaglutide (Ozempic) 1 mg/dose (4 mg/3 mL) pen injector Active 1 MG SUBCUT every week 3 June 18, 2024 10:37am patient will have BRAYDEN voucher information Complies with drug therapyStart: 06-18-2024 inject 1 mg by subcutaneous injection every weekStart: 81-55-7576wmdlwp 1 mg by subcutaneous injection every weekSemaglutide (Ozempic) 1 mg/dose (4 mg/3 mL) pen injector Active 1 MG SUBCUT every week 3 June 18, 2024 10:37am patient will have BRAYDEN voucher informationStart: 08-59-2027rhckvp 1 mg by subcutaneous injection every weekSemaglutide (Ozempic) 1 mg/dose (4 mg/3 mL) pen injector Active 1 MG SUBCUT every week 3 June 18, 2024 9:37am patient will have BRAYDEN voucher informationStart: 01-21-2024 End: 26-70-4002mzygro 1 mg by subcutaneous injection every weekSemaglutide (Ozempic) 1 mg/dose (4 mg/3 mL) pen injector Discontinued 1 MG SUBCUT every week 3 3 January 20, 2024 11:00pm June 18, 2024 9:39amStart: 01-21-2024 End: 63-91-6109abzjfj 1 mg by subcutaneous injection every weekSemaglutide (Ozempic) 1 mg/dose (4 mg/3 mL) pen injector Discontinued 1 MG SUBCUT every week 3 January 21, 2024 12:00am June 18, 2024 10:39amStart: 01-21-2024 End: 75-66-1958quhwmo 1 mg by subcutaneous injection every weekSemaglutide [...] Activesodium chloride 0.9 % injection (1 source)Start: 26-18-4665kbaktl chloride 0.9 % injection 10 mL by intravenous push route as needed. 09/23/2016 Active Completed/Discontinued Medications MedicationDrug Class(es)DatesSig (Normalized)Sig (Original)dapagliflozin 10 mg oral tablet (20 sources)Sodium-Glucose Cotransporter 2 InhibitorStart: 09-05-2023 End: 29-44-2274umvb 1 tablet by mouth once dailyDapagliflozin Propanediol (Farxiga) 10 mg tablet Discontinued 10 MG PO Daily 90 90 1 September 10, 2023 7:43am January 14, 2025 3:41pmStart: 62-05-5064idzj 1 tablet by mouth every twenty- four hoursFarxiga 5 MG 1 tablet Orally Once a day for 30 day(s) has coupon card Jan, ActiveInsulin Aspart U-100 (Novolog Flexpen U-100 Insulin) 100 unit/mL (3 mL) insulin pen (5 sources)Start: 09-05-2023 End: 79-70-7766Ymlewiu Aspart U-100 (Novolog Flexpen U-100 Insulin) 100 unit/mL (3 mL) insulin pen Discontinued SUBCUT September 05, 2023 12:00am September 10, 2023 8:11am FreeTextSi:40 ISS Subcutaneous QID; Note: SourceStatus: Not- TakingundefinedPRNHAS LISPRO, ASPART BACK UP; Refills: 1; Qty: 30 ml; Provider: Gabby De La Vega CStart: 09-05-2023 End: 93-56-7545Pnigpsf Aspart U-100 (Novolog Flexpen U-100 Insulin) 100 unit/mL (3 mL) insulin pen Discontinued SUBCUT September 04, 2023 11:00pm September 10, 2023 7:11am FreeTextSi:40 ISS Subcutaneous QID; Note: Source Status: Not- TakingundefinedPRNHAS LISPRO, ASPART BACK UP; Refills: 1; Qty: 30 ml; Provider: Gabby De La Vega CStart: 09-05-2023 End: 16-11-4194Qugqdkr Aspart U-100 (Novolog Flexpen U-100 Insulin) 100 unit/mL (3 mL) insulin pen Discontinued SUBCUT September 05, 2023 12:00am September 10, 2023 8:11am FreeTextSi:40 ISS Subcutaneous QID; Note: SourceStatus: Not- Taking\PRNHAS LISPRO, ASPART BACK UP; Refills: 1; Qty: 30 ml; Provider: Gabby De La Vega C3 ml insulin degludec 100 unt/ml pen injector (9 sources)Insulin AnalogStart: 67-32-3809Ozldpdm FlexTouch 100 UNIT/ML 45 u Subcutaneous daily for 90 days September, Not-Taking/PRN3 ml insulin lispro- aabc 200 unt/ml pen injector (20 sources)Insulin AnalogStart: 06-11-2024 End: 20-99-3506Gbtwacr Lispro-Aabc (Lyumjev Kwikpen U-200 Insulin) 200 unit/mL (3 mL) insulin pen Discontinued 1 sliding scale dose SUBCUT Use as Directed 05 06June 11, 2024 12:00am June 18, 2024 8:53am ISS 1:40 ICR 1:10 ACHS TID. Expect up to 40 u per dayStart: 09-10-2023 End: 71-03-3823Jedthcu Lispro Discontinued 0 SUBCUT Use as Directed September 10, 2023 8:45am January 21, 2024 10:15am ISS 1:50, expect up to 30 u per dayStart: 40-79-1540Hryhlwg Lispro Active 0 SUBCUT Use as Directed September 10, 2023 8:45am ISS 1:50, expect up to 30u per dayStart: 09-10-2023 End: 51-51-2742Yjhpbpd Lispro 100 unit/mL insulin pen Discontinued 0 SUBCUT Use as Directed September 10, 2023 7:45am January 21, 2024 9:15am ISS 1:50, expect up to 30 u per dayStart: 09-10-2023 End: 78-47-8329Hcbuxsa Lispro Discontinued 1 sliding scale dose SUBCUT [...] unit/mL insulin pen (6 sources)Start: 09-10-2023 End: 81-00-4631Vbxpjmd Lispro 100 unit/mL insulin pen Discontinued 0 SUBCUT Use as Directed September 10, 2023 8:45am January 21, 2024 10:15am ISS 1:50, expect up to 30 u per dayStart: 09-10-2023 End: 09-00-0034Qrlsgpu Lispro 100 unit/mL insulin pen Discontinued 0 SUBCUT Use as Directed September 10, 2023 7:45am January 21, 2024 9:15am ISS 1:50, expect up to 30 u per dayStart: 09-10-2023 End: 58-08-8295Xepuqdk Lispro 100 unit/mL insulin pen Discontinued 1 sliding scale dose SUBCUT Use as Directed 2023 12:00am September 10, 2023 8:47am Start: 09-10-2023 End: 22-32-0445Zdzdlny Lispro 100 unit/mL insulin pen Discontinued 1 sliding scale dose SUBCUT Use as Directed 2023 11:00pm September 10, 2023 7:47am Insulin Lispro-Aabc (Lyumjev Kwikpen U-200 Insulin) 200 unit/mL (3 mL) insulin pen (3 sources)Start: 06-11-2024 End: 06-70-2743Splaqag Lispro-Aabc (Lyumjev Kwikpen U-200 Insulin) 200 unit/mL (3 mL) insulin pen Discontinued 1 sliding scale dose SUBCUT Use as Directed June 11, 2024 1:00am June 18, 2024 9:53am ISS1:40 ICR 1:10 ACHS TID. Expect up to 40 u per dayStart: 06-11-2024 End: 14-64-8527Bpkkebb Lispro-Aabc (Lyumjev Kwikpen U-200 Insulin) 200 unit/mL (3 mL) insulin pen Discontinued 1 sliding scale dose SUBCUT Use as Directed June 11, 2024 12:00am June 18, 2024 8:53am ISS 1:40 ICR 1:10 ACHS TID. Expect up to 40 u per daylisinopril 2.5 mg oral tablet (20 sources)Angiotensin Converting Enzyme InhibitorStart: 09-05-2023 End: 83-75-4639wjjc 1 tablet by mouth once dailyLisinopril 2.5 mg tablet Discontinued 2.5 MG PO Daily September 04, 2023 11:00pm January 01, 2025 8:13am Start: 61-32-4131zbck 1 tablet by mouth every twenty-four hoursLisinopril 5 MG 1 tablet Orally Once a day for 90 days Feb, ActiveStart: 51-68-3422holu 1 tablet by mouth every twenty-four hoursLisinopril 2.5 MG 1 tablet Orally Once a day for 30 days Escalate per PCP Dec, ActiveProdigy Autocode Blood Glucose - (5 sources)Start: 37-25-2894Zbtxucv Autocode Blood Glucose - as directed In Vitro QID for 90 days Jun, Not-TakingSemaglutide (20 sources)Start: 09-10-2023 End: 06-34-7205Hkytzvfyjqm (Ozempic) 0.25 mg or 0.5 mg (2 mg/3 mL) pen injector Discontinued 0.5 MG SUBCUT every week 9.568 90 September 10, 2023 7:40am April 23, 2024 12:37pm On Hold: dose changeStart: 09-10-2023 End: 62-07-1744Jjtzifwrxed (Ozempic) 0.25 mg or 0.5 mg (2 mg/3 mL) pen injector Discontinued 0.5 MG SUBCUT every week 9.568 September 10, 2023 8:40am April 23, 2024 1:37pm On Hold: dose changeStart: 09-10-2023 End: 45-08-6466Uvyiisgsqrw (Ozempic) 0.25 mg or 0.5 mg (2 mg/3 mL) pen injector Discontinued 0.5 MG SUBCUT every week 9.568 September 10, 2023 7:40am April 23, 2024 12:37pm On Hold: dose changeStart: 64-44-8253Fyyvxhpgjbf (Ozempic) 0.25 mg or 0.5 mg (2 mg/3 mL) pen injector Active 0.5 MG SUBCUT every week 9.568 September 10, 2023 8:40am On Hold: dose changeStart: 01-56-4158Idgwuhroezw (Ozempic) 0.25 mg or 0.5 mg (2 mg/3 mL) pen injector Active 0.5 MG SUBCUT every week 9.568 September 10, 2023 8:40amStart: 09-05-2023 End: 10-98-8629Mrrloydoaob (Ozempic) 0.25 mg or 0.5 mg (2 mg/3 mL) pen injector Discontinued MG SUBCUT August 11:00pm September 10, 2023 7:47amStart: 09-05-2023 End: 40-14-7753Ymoggciywqb (Ozempic) 0.25 mg or 0.5 mg (2 [...] surveillance; Translations: [Patient encounter status]Onset: 07-20-2021 Resolved: 08-00-3791JoecagljMujdvkd kidney disease (2 sources)Chronic kidney disease; Translations: [Chronic kidney disease, unspecified]90-80-4138UbgqzwuXoqpxqijjz and other anemia (2 sources)Anemia; Translations: [Anemia, unspecified]01-29-7370LxoloujhXkgwikwa mellitus with complications (20 sources)Hyperglycemia due to type 2 diabetes mellitus; Translations: [Type 2 diabetes mellitus with hyperglycemia]Onset: 07-20-2021 Resolved: 75-02-5267RtggszgWvygmqkt mellitus without complication (1 source)Type 2 diabetes mellitus without complications; Translations: [TYPE 2 DM WITHOUT COMPLICATIONS]Onset: 29-39-6927HhnilytSffjmrniw of lipid metabolism (20 sources)Hyperlipidemia; Translations: [Hyperlipidemia, unspecified]Onset: 07-20-2021 Resolved: 56-56-4962ZxlitihK Codes: Fall (2 sources)FallOnset: 85-03-9669Yxqgfdmvb hypertension (20 sources)Hypertensive disorder; Translations: [Essential (primary) hypertension]Onset: 07-20-2021 Resolved: 83-87-4241YkdchvmMqjyaywc (6 sources)Atherosclerosis of [place] arteries of extremities with gangrene, right leg; Translations: [Criticallower limb ischemia ]Onset: 09-25-2024 04-01-1215UhklzzpHmntltptlfiyt symptoms and ill-defined conditions (20 sources)Proteinuria, unspecified; Translations: [Persistent albuminuria] Onset: 31-71-0133SyiovcmhXzhmtcdrm arthritis and osteomyelitis (except that caused by tuberculosis or sexually transmitted disease) (2 sources)Osteomyelitis; Translations: [Osteomyelitis, unspecified]01-07-2025 ChronicMalaise and fatigue (4 sources)Weakness; Translations: [WEAKNESS]Onset: 45-45-1156Igewmfhj Nutritional deficiencies (20 sources)Vitamin D deficiency; Translations: [Vitamin D deficiency, unspecified]Onset: 07-20-2021 Resolved: 77-37-8396XtskmztRyzt wounds of extremities (6 sources)Amputated big toe; 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, initial encounter]21-21-6801IkhtfscOxglogk on above:09-23-2024 (est)Other aftercare (17 sources)longterm (current) use of insulin; Translations: [Long-term (current) use of insulin]Onset: 04-12-2020 Resolved: 55-59-5737YrlsqvhdUajog aftercare (20 sources)Long-term current use of insulin; Translations: [longterm (current) use of insulin]86-22-2127OuuiasgcFfsde circulatory disease (11 sources)Low blood pressure; Translations: [Hypotension, unspecified] 13-32-2721NdsouhdlTqlwi connective tissue disease (2 sources)Neuralgia; Translations: [Neuralgia and neuritis, unspecified] 59-71-1088XbrodqhiCkwqb fractures (8 sources)Fracture of multiple ribs ; Translations: [Multiple fractures of ribs, unspecified side, initial encounter for closed fracture]96-72-6653Idfapxnm Comment on above:Patient states has 3 cracked ribs, fell first week April 2024Other nervous system disorders (20 sources)Neuropathy; Translations: [Polyneuropathy, unspecified]ChronicOther nutritional; endocrine; and metabolic disorders (4 sources)Body mass index (BMI) 27.0-27.9, adultOnset: 07-20-2021 Resolved: 80-04-8603EpbsqlpoAtlrn nutritional; endocrine; and metabolic disorders (3 sources)Body mass index (BMI) 28.0-28.9, adultEpisodicOther nutritional; endocrine; and metabolic disorders (1 source)Body mass index (BMI) 26.0-26.9, adultEpisodicOther nutritional; endocrine; and metabolic disorders (7 sources)Body mass index (BMI) 25.0-25.9, adult; Translations: [Body Mass Index 25.0-25.9, adult]EpisodicOther nutritional; endocrine; and metabolic disorders (16 sources)Overweight in adulthood with body mass index of 25 or more but less than 30; Translations: [Body mass index (BMI) 25.0-25.9, adult]09-05-2023 EpisodicOther skin disorders (14 sources)Nail deformity; Translations: [Other nail disorders]Episodic Peripheral and visceral atherosclerosis (4 sources)Peripheral vascular disease, unspecified; Translations: [Peripheral vascular disease, unspecified]Onset: 007092-95-9115KdfogjbFeodwrwswmm; intervertebral disc disorders; other back problems (2 sources)Degeneration of cervical intervertebral disc; Translations: [Other cervical disc degeneration, unspecified cervical region]19-20-1842Vxbgfoi Unclassified (1 source)COVID-19; Translations: [COVID-19]Onset: 14-98-7626Ueitsfgodlkp (1 source)pad critical limb ischemiaOnset: 68-27-0477Izlvuquybvkw (1 source)Gangrene, PAD. Per Dr. Spears requesting pt to be seenOnset: 31-70-7337Dxwnnznuvmhq (2 sources)I10 - Essential (primary) hypertension,R80.9 - Proteinuria, unspecified Past or Other Problems Problem ClassificationProblemDateDocumented DateEpisodic/ChronicE Codes: Fall (1 source)Fall on same level from slipping, tripping and stumbling without subsequent striking against object, initial encounter; Translations: [Fall on same level from slipping, tripping and stumbling withoutsubsequent striking against object, initial encounter]Onset: 88-95-7058QngcfhiqJpzxnxqo (4 sources)Gangrene, not elsewhere classified; Translations: [Gangrenous disorder]Onset: 178720-61-5767SdvrufdtCuhps circulatory disease (1 source)Other specified symptoms and signs involving the circulatory and respiratory systems; Translations:[Other specified symptoms and signs involving the circulatory and respiratory systems]Onset: 55-16-3529WnannpzzAjaki fractures (1 source)Multiple fractures of ribs, right side, initial encounter for closed fracture; Translations: [Multiple fractures of ribs, right side, initial encounter for closed fracture]Onset: 61-26-3997EhnpamevTnrl and subcutaneous tissue infections (1 source)Cellulitis of face; Translations: [Cellulitis of face]Onset: 337996-35-8717Vjsxcdws Results Test NameValueInterpretationReference RangeFacilityLIPID PROFILEon 02-25-2025 Cholesterol [Mass/Vol]166 mg/oMPjfgwm576-868GukVdeftr [facility]remont HospitalComment on above:Performed By: #### LIPR #### [facility] ([facility]) [address] [place] [address] VIRCholesterol in HDL [Mass/Vol]73 mg/dLNormal>39ProMethodist Dallas Medical CenterComment on above:Result Comment: HDL <40 mg/dL - High Risk HDL > or = 40mg/dL- Desirable HDL >60 mg/dL - Negative RiskPerformed By: #### LIPR #### [facility] ([facility]) [address] [place] [address] VIRCholesterol in LDL [Mass/Vol]73 mg/dLNormal<130ProMethodist Dallas Medical CenterComment on above:Result Comment: LDL <100 mg/dL - Desirable LDL >160 mg/dL - High RiskPerformed By: #### LIPR #### [facility] ([facility]) [address] [place] [address] VIRCHOLESTEROL:HDL2.1Uverql6.0-5.0[facility] Comment on above:Performed By: #### LIPR #### [facility] ([facility]) [address] [place] [address] VIRTriglyceride [Mass/Vol]99 mg/uFBxkyru85-945CawHgbmvs [facility] HospitalComment on above:Performed By: #### LIPR #### [facility] ([facility]) [address] [place] [address] VIRVERY LOW KEBOIHIMNMC60 mg/dLNormal0-30ProMethodist Dallas Medical CenterComment on above:Performed By: #### LIPR #### [facility] ([facility]) [address] [place] [address] VIRVITAMIN B12on 38-28-0863Nkxubxewr (Vitamin B12) [Mass/Vol] 188 pg/yPUxpldo739-162NwhBaigybElyria Memorial HospitalComment on above:Performed By: #### B12 #### [facility] ([facility]) [address] [place] [address] VIRVITAMIN D 25 HYDROXYon 30-60-0808MYJRVOD D 25 HYD TOT30.9 ng/rNBzrrnp03.0-100.0[facility] Hospital - CincinnatiComment on above:Order Comment: Vitamin D status 25 [place] Vitamin D Deficiency <20 ng/mL Insufficiency 20-29 ng/mL Sufficiency 30-100 ng/mL Toxicity >100 ng/mL NOTE: A pediatric reference range has not been established by the hydroelectric production technician of this kit. The [place] [employer] recommends a Vitamin D level of = or >20ng/mL in infants and children.Performed By: #### VITD #### [facility] ([facility]) [address] [place] [address] VIRNo Panel InformationOrdered By: Mayra Spears on 63-13-9841Asxcpetiqcuve Pathology TestSee [facility]ult[facility] Orrville HospitalComment on above:See report. Scanned copy available in EMR.Pathology Request for Lab Corpon 83-49-1025Reohzqvrr Request for Lab CorpNormBaptist Health Homestead Hospital Physician GroupComment on above:Result Comment: See report. Scanned copy available in EMR. PERFORMED BY: [place] [id number] PATHOLOGIST PROCESS SAFETY SPECIALIST GOOD RIDDLE M.D.Performed By: #### PATH TO [facility] #### [place] [address] USANo Panel InformationOrdered By: Yolette Ge on 86-73-5131Jblosmq Foijpnf441CasmvwdpgPike Community HospitalLon 11-12-2024L Specimen: [id number] Received: 11/13/24 Status: LORENA Childs Num: [id number] Spec Type: Surgical Subm Dr: Mayra Spears,DPSaud, MS Tissues: A DIGIT AMPUTATION (BONE FROM R 2nd TOE) Procedures: HE/2, Gross/Micro L4, Decalcification Age/ Patient Sex Location Account Attending Physician Jassi Rodriguez 64/M LABELL [id number] Mayra Spears DPM, MS SPEC NUM: [id number] RECD: 11/13/24 STATUS: LORENA CHILDS NUM: [id number] SCOTT: 11/12/[address] [facility] [address]: Mayra Spears DPM, MS ENTERED: 11/13/[address] [facility] [address]: Nehemias,Lab SPEC TYPE: Surgical DEPT: THANH MURRAY ENTERED BY: [id number] RECV BY: [id number] ORDERED: HE/2, Gross/Micro L4, Decalcification ORDERED: HE/2, [...] soft tissue submitted in A2. (2, ss, [id number] A) CPT Codes 17801, 41731 Specimen: [id number] Received: 11/13/24 Status: LORENA Childs Num: [id number] Spec Type: Surgical Subm Dr: Mayra Spears DPM, MS Tissues: A DIGIT AMPUTATION (BONE FROM R 2nd TOE) Procedures: HE/2, Gross/Micro L4, Decalcification Patient: Jassi Rodriguez SR [id number] (Continued) Signed (signature on file) Uziel Lozano MD 11/18/24 1140 [facility] Physician GroupNo Panel InformationOrdered By: Mayra Spears on 37-04-0026Rlgpazbsjadzs Pathology TestSee commentPike Community HospitalComment on above:See report. Scanned copy available in EMR.Pathology Request for Lab Corpon 73-94-6777Llzxroapt Request for Lab David NormalAdventhealth Four Corners Er Physician [facility] Hospital BiloxiComment on above:Order Comment: BONE 2ND RT TOEResult Comment: See report. Scanned copy available in EMR. PERFORMED BY: [facility] [address] [id number] PATHOLOGIST PROCESS SAFETY SPECIALIST GOOD RIDDLE M.D.Performed By: #### PATH TO [facility] #### [facility] [address] [id number] USAPOCT BUN, CREATon 18-88-1633Vlozegpaqg [Mass/Vol]1.1 mg/dL Normal0.7-1.2PPremier Health Miami Valley HospitalComment on above:Performed By: #### IBC #### [facility] ([facility]) [address] [place] [address] VIRGFR/1.73 sq M.predicted among non-blacks MDRD (S/P/Bld) [Vol rate/Area]75 mL/min/{1.73_m2}Normal>=60ProAshtabula General HospitalComment on above:Result Comment: Reported eGFR is based on the CKD-EPI 2020 equation that does not use a race coefficient.Performed By: #### IBC #### [facility] ([facility]) [address] [place] [address] VIRUrea nitrogen [Mass/Vol]17 mg/dLNormal6-27ProAshtabula General HospitalComment on above:Performed By: #### IBC #### [facility] ([facility]) [address] [place] [address] VIRPORTABLE GLUCOSEon 85-91-6404Sipaivw [Mass/Vol]89 mg/dL Dfhgni51-76IilRiezlpAshtabula General HospitalComment on above:Performed By: #### IGLU #### [facility] ([facility]) [address] [place] [address] QJOEtL5r HPLC (Bld) [Mass fraction]on 82-89-9530WmC2f (Bld) [Mass fraction]6.6 %[facility] HospitalNo Panel Informationon 97-75-1816Xmcjjvf Gnalxuj009RnfkklstqPike Community HospitalBasophils Auto (Bld) [#/Vol]on 95-47-8502Eemkvmwpu (Bld) [#/Vol]Automated basophil count0.0-0.1 [facility] HospitalBasophils (Bld) [#/Vol]0.1 10 3/uL0.0-0.1 [facility] HospitalBasophils/100 WBC Auto (Bld)on 09-23-2024 Basophils/100 WBC (Bld)Automated basophil %0.2-2.0[facility] HospitalBasophils/100 WBC (Bld)0.7 %0.2-2.0[facility] Eosinophils/100 WBC Auto (Bld)on 69-12-8057Vgxngmnfvxv/100 WBC (Bld)Automated eosinophil %Low0.9-7.0[facility] HospitalEosinophils/100 WBC (Bld) 0.2 %Low0.9-7.0[facility] HospitalErythrocyte distribution width Auto (RBC) [Ratio]on 07-57-6649Bdzufphnplv distribution width (RBC) [Ratio] Erythrocyte distribution width [Ratio] by Automated count11.0-15.0P[facility] Community HospitalErythrocyte distribution width (RBC) [Ratio]11.0 % 11.0-15.0[facility] HospitalEstimated glomerular filtration rate (GFR) non- Americanon 98-85-4254BVC/1.73 sq M.predicted among non-blacks MDRD (S/P/Bld) [Vol rate/Area]Estimated glomerular filtration rate (GFR) non- >=60 mL/min/1.73m 2FUC Medical CenterGFR/1.73 sq M.predicted among non-blacks MDRD (S/P/Bld) [Vol rate/Area]mL/min/{1.73_m2}>=60 mL/min/1.73m 2FUC Medical CenterGlobulin Calc (S) [Mass/Vol]on 44-74-6471Ygxbqeei (S) [Mass/Vol]Serum globulin measurement by calculation (mass/volume)[facility] HospitalGlobulin (S) [Mass/Vol]5.6 g/dL [facility] HospitalHematocrit Auto (Bld) [Volume fraction]on 69-88-0694Yrpfydnkzt (Bld) [Volume fraction]Hematocrit [Volume Fraction] of Blood by Automated rwysbXmj91.0-54.0[facility] HospitalHematocrit (Bld) [Volume fraction]34.7 %Low42.0-54.0[facility] Hemoglobin [Mass/volume] in Bloodon 19-07-8495Atdiheyrpv (Bld) [Mass/Vol] Hemoglobin [Mass/volume] in WmmefFmd65.0-18.0[facility] Hemoglobin (Bld) [Mass/Vol]11.9 g/dLLow14.0-18.0[facility] HospitalLon 09-23-2024L Specimen: [id number] Received: 09/23/24-1299 Status: LORENA Childs Num: [id number] Spec Type: Surgical Subm Dr: Mayra Spears,DPM, MS Tissues: A DIGIT AMPUTATION (RIGHT DISTAL PHALANX) B DIGIT AMPUTATION (RIGHT PROXIMAL PHALANX) Procedures: HE/3, Gross/Micro L4/2, Decalcification/2 Age/ Patient Sex Location Account Attending Physician Jassi Rodriguez 64/M LABELL [id number] Mayra Spears DPM, MS SPEC NUM: [id number] RECD: 09/23/24 STATUS: LORENA HARMONY NUM: [id number] SCOTT: 09/23/[address] [facility] [address]: Mayra Spears DPM, MS ENTERED: 09/23/24-[address]: Nehemias,Stephanie SPEC TYPE: Surgical DEPT: THANH MURRAY ENTERED BY: [id number] RECV BY: [id number] ORDERED: HE/3, Gross/Micro L4/2, Decalcification/2 ORDERED: HE/3, [...] cellulitis, dry gangrene right great toe Specimen: [id number] Received: 09/23/24-1299 Status: LORENA Childs Num: [id number] Spec Type: Surgical Subm Dr: Mayra Spears,DPM, MS Tissues: A DIGIT AMPUTATION (RIGHT DISTAL PHALANX) B DIGIT AMPUTATION (RIGHT PROXIMAL PHALANX) Procedures: HE/3, Gross/Micro L4/2, Decalcification/2 Patient: Jassi Rodriguez SR [id number] (Continued) Specimen: [id number] Received: 09/23/24-1299 (Continued) Signed (signature on file) Mingo Mejia MD 09/26/24 2352 Specimen: [id number] Received: 09/23/24 Status: LORENA Childs Num: [id number] Spec Type: Surgical Subm Dr: Mayra Spears,DPM, MS Tissues: A DIGIT AMPUTATION (RIGHT DISTAL PHALANX) B DIGIT AMPUTATION (RIGHT PROXIMAL PHALANX) Procedures: HE/3, Gross/Micro L4/2, Decalcification/2 Patient: Jassi Rodriguez [id number] (Continued) Specimen: [id number] Received: 09/23/24 (Continued) Gross Description Part A [...] cm from the proximal skin margin. A business services representative section of the indurated area and underlying distal phalanx is submitted in A1 after decalcification with tangential cross-sections of the proximal skin margin submitted in A2. (2, ss, S25-724 A) Part B is received in formalin [...] submitted in B1 after decalcification. (1, , S24-985 B) Microscopic Description Microscopic examination is performed CPT Codes 61162d0 01592b9 Specimen: [id number] Received: (more content not included)...NormalThe [facility]ly [facility] Physician GroupLaboratory - Chemistry and Chemistry - challengeon 60-04-3022Bcreusb [Mass/Vol]1.8 g/dLLow3.4-5.0[facility] ALP [Catalytic activity/Vol]76 U/J08-510QdueoqzopPike Community HospitalALT [Catalytic activity/Vol]15 U/YFzz57-30CcsfyoverPike Community HospitalAST [Catalytic activity/Vol]22 U/A07-62YfbutgckgPike Community HospitalBilirubin [Mass/Vol]0.3 mg/dL0.2-1.0[facility] HospitalCalcium [Mass/Vol]9.0 mg/dL8.5-10.1FUC Medical CenterChloride [Moles/Vol]103 mmol/L 98-107P[facility] HospitalCO2 [Moles/Vol]26.0 mmol/L21.0-32.0 [facility] HospitalCreatinine [Mass/Vol]0.94 mg/dL0.70-1.30 [facility] HospitalGFR/1.73 sq M.predicted MDRD (S/P/Bld) [Vol rate/Area]mL/min/{1.73_m2}>=60 mL/min/1.73m 2[facility] Glucose [Mass/Vol]124 mg/hFRjhp32-905MqehxmnfrPike Community HospitalPotassium [Moles/Vol]4.1 mmol/L3.5-5.1FUC Medical CenterProtein [Mass/Vol] 7.4 g/dL6.4-8.2FOhioHealth Southeastern Medical Centerodium [Moles/Vol]139 mmol/L 136-145P[facility] HospitalUrea nitrogen [Mass/Vol]22.0 mg/dLHigh 7.0-18.0[facility] HospitalUrea nitrogen/Creatinine [Mass ratio] 23.4 mg/mgPike Community HospitalLaboratory - Hematology and Cell countson 18-72-4922Ksrlfncv granulocytes/100 WBC (Bld)0.3 %0.0-0.5FUC Medical CenterLeukocytes [#/volume] corrected for nucleated erythrocytes in Blood by Automated counon 47-00-5117VYL corrected for nucl RBC Auto (Bld) [#/Vol]Leukocytes [#/volume] corrected for nucleated erythrocytes in Blood by Automated coun4.0-11.0[facility] HospitalWBC corrected for nucl RBC Auto (Bld) [#/Vol]9.1 10 3/uL4.0-11.0[facility] HospitalLymphocytes Auto (Bld) [#/Vol]on 80-65-4917Uvhukjokqic (Bld) [#/Vol] Lymphocytes [#/volume] in Blood by Automated count1.2-3.8[facility] HospitalLymphocytes (Bld) [#/Vol]1.6 10 3/uL1.2-3.8[facility] HospitalLymphocytes/100 WBC Auto (Bld)on 93-31-2459Eilhjexwxst/100 WBC (Bld)Lymphocytes/100 leukocytes in Blood by Automated krdzhWpf78.5-60.0[facility] HospitalLymphocytes/100 WBC (Bld)17.6 %Low20.5-60.0[facility] Auto (RBC) [Entitic mass]on 29-54-6030MGL (RBC) [Entitic mass]MCH [Entitic mass] by Automated count25.9-34.0[facility] (RBC) [Entitic mass]30.7 pg25.9-34.0[facility] Auto (RBC) [Mass/Vol]on 53-35-4189GYEJ (RBC) [Mass/Vol]MCHC [Mass/volume] by Automated count29.9-35.2FParkwood HospitalHC (RBC) [Mass/Vol]34.3 g/dL29.9-35.2FHenry County Hospital Auto (RBC) [Entitic vol]on 91-80-5986SJO (RBC) [Entitic vol]MCV [Entitic volume] by Automated count80.0-94.0Madison HealthV (RBC) [Entitic vol] 89.7 fL80.0-94.0[facility] HospitalMonocytes Auto (Bld) [#/Vol]on 98-53-3142Cusowsloq (Bld) [#/Vol]Automated blood monocyte countHigh0.3-0.8 [facility] HospitalMonocytes (Bld) [#/Vol]1.4 10 3/uLHigh0.3-0.8 [facility] HospitalMonocytes/100 WBC Auto (Bld)on 09-23-2024 Monocytes/100 WBC (Bld)Automated monocyte %High1.7-12.0[facility] HospitalMonocytes/100 WBC (Bld)15.6 %High1.7-12.0[facility] HospitalNeutrophils Auto (Bld) [#/Vol]on 35-50-2580Wdxjaiaflfy (Bld) [#/Vol]Neutrophils [#/volume] in Blood by Automated count1.4-6.5FUC Medical CenterNeutrophils (Bld) [#/Vol]6.0 10 3/uL1.4-6.5FUC Medical CenterNeutrophils/100 WBC Auto (Bld)on 09-23-2024 Neutrophils/100 WBC (Bld)Automated neutrophil %43.0-75.0[facility] HospitalNeutrophils/100 WBC (Bld)65.6 %43.0-75.0[facility] HospitalNo Panel Informationon 36-56-5232M-Reactive Protein, Quantitative3.19 mg/dLHigh<=0.50[facility] HospitalEosinophils # (Auto)0.0 10 3/uL 0.0-0.7FUC Medical CenterImmature Granulocyte # (Auto)0.03 10 3/uL0.00-0.03[facility] HospitalPlatelet mean volume Auto (Bld) [Entitic vol]on 05-33-6971Bvqrtulq mean volume (Bld) [Entitic vol]Platelet mean volume [Entitic volume] in Blood by Automated count9.5-13.5FUC Medical CenterPlatelet mean volume (Bld) [Entitic vol]9.5 fL9.5-13.5F[facility] Medical CenterPlatelets Auto (Bld) [#/Vol]on 85-50-5583Yvhtlcbqy (Bld) [#/Vol]Platelets [#/volume] in Blood by Automated dylfv799-131EhuxtaosjPike Community HospitalPlatelets (Bld) [#/Vol]339 10 3/pW349-754TgfznhqjjPike Community HospitalRBC Auto (Bld) [#/Vol]on 98-38-5319NWB (Bld) [#/Vol]Erythrocytes [#/volume] in Blood by Automated countLow4.70-6.10[facility] HospitalRBC (Bld) [#/Vol]3.87 10 6/uLLow4.70-6.10[facility] Serum or plasma albumin/globulin mass ratioon 51-94-3660Vnbvqxi/Globulin [Mass ratio]Serum or plasma albumin/globulin mass ratioPike Community HospitalAlbumin/Globulin [Mass ratio]0.3 {ratio}[facility] Serum or plasma anion gap determinationon 94-52-2951Lrfhc gap [Moles/Vol]Serum or plasma anion gap determinationFirelands Regional Medical CenterAnion gap [Moles/Vol]14.1 mmol/LFUC Medical CenterBasophils Auto (Bld) [#/Vol]on 43-76-9538Myndvkumw (Bld) [#/Vol]Automated basophil count0.0-0.1 [facility] HospitalBasophils (Bld) [#/Vol]0.1 10 3/uL0.0-0.1 [facility] HospitalBasophils/100 WBC Auto (Bld)on 09-22-2024 Basophils/100 WBC (Bld)Automated basophil %0.2-2.0[facility] HospitalBasophils/100 WBC (Bld)0.6 %0.2-2.0[facility] Eosinophils/100 WBC Auto (Bld)on 34-35-9417Qnddetvriqt/100 WBC (Bld)Automated eosinophil %Low0.9-7.0[facility] HospitalEosinophils/100 WBC (Bld) 0.2 %Low0.9-7.0[facility] HospitalErythrocyte distribution width Auto (RBC) [Ratio]on 36-25-9842Oqhonpmzkef distribution width (RBC) [Ratio] Erythrocyte distribution width [Ratio] by Automated count11.0-15.0[facility] HospitalErythrocyte distribution width (RBC) [Ratio]11.1 % 11.0-15.0[facility] HospitalEstimated glomerular filtration rate (GFR) non- Americanon 60-14-9943VVD/1.73 sq M.predicted among non-blacks MDRD (S/P/Bld) [Vol rate/Area]Estimated glomerular filtration rate (GFR) non- >=60 mL/min/1.73m [address] [place], [place] [address]GFR/1.73 sq M.predicted among non-blacks MDRD (S/P/Bld) [Vol rate/Area]mL/min/{1.73_m2}>=60 mL/min/1.[address]m [address] [place], [place] [address]Globulin Calc (S) [Mass/Vol]on 88-88-9979Scwiwhfi (S) [Mass/Vol]Serum globulin measurement by calculation (mass/volume)[facility] HospitalGlobulin (S) [Mass/Vol]5.4 g/dL [facility] HospitalHematocrit Auto (Bld) [Volume fraction]on 34-98-5920Bctktvcvot (Bld) [Volume fraction]Hematocrit [Volume Fraction] of Blood by Automated mmnqsTln32.0-54.0[facility] HospitalHematocrit (Bld) [Volume fraction]33.8 %Low42.0-54.0[facility] Hemoglobin [Mass/volume] in Bloodon 40-69-6022Awepattetj (Bld) [Mass/Vol] Hemoglobin [Mass/volume] in OylfbJqh26.0-18.0[facility] Hemoglobin (Bld) [Mass/Vol]11.8 g/dLLow14.0-18.0[facility] HospitalLaboratory - Chemistry and Chemistry - challengeon 33-51-3026Rcbbcuw [Mass/Vol]1.9 g/dLLow3.4-5.0[facility] HospitalALP [Catalytic activity/Vol]74 U/H64-866BouyigmetPike Community HospitalALT [Catalytic activity/Vol]15 U/TXva13-23YbfflothqPike Community HospitalAST [Catalytic activity/Vol]20 U/M94-23JowgcanfrPike Community HospitalBilirubin [Mass/Vol]0.4 mg/dL0.2-1.0[facility] HospitalCalcium [Mass/Vol]8.7 mg/dL 8.5-10.1F[facility] Medical CenterChloride [Moles/Vol]102 mmol/L98-107 [facility] HospitalCO2 [Moles/Vol]23.7 mmol/L21.0-32.0[facility] HospitalCreatinine [Mass/Vol]0.99 mg/dL0.70-1.30[facility] HospitalGFR/1.73 sq M.predicted MDRD (S/P/Bld) [Vol rate/Area] mL/min/{1.73_m2}>=60 mL/min/1.73m 2F[facility] Medical CenterGlucose [Mass/Vol]87 mg/aT58-967AnuoaovioPike Community HospitalPotassium [Moles/Vol] 4.4 mmol/L3.5-5.1F[facility] Medical CenterProtein [Mass/Vol]7.3 g/dL 6.4-8.2FOhioHealth Southeastern Medical Centerodium [Moles/Vol]137 mmol/T026-109 [facility] HospitalUrea nitrogen [Mass/Vol]21.0 mg/dLHigh7.0-18.0 [facility] HospitalUrea nitrogen/Creatinine [Mass ratio]21.2 mg/mg [facility] HospitalLaboratory - Hematology and Cell countson [id number] granulocytes/100 WBC (Bld)0.4 %0.0-0.5F[facility] CenterLeukocytes [#/volume] corrected for nucleated erythrocytes in Blood by Automated counon [id number] corrected for nucl RBC Auto (Bld) [#/Vol]Leukocytes [#/volume] corrected for nucleated erythrocytes in Blood by Automated coun4.0-11.0[facility] HospitalWBC corrected for nucl RBC Auto (Bld) [#/Vol]9.6 10 3/uL4.0-11.0[facility] Lymphocytes Auto (Bld) [#/Vol]on [id number] (Bld) [#/Vol]Lymphocytes [#/volume] in Blood by Automated count1.2-3.8[facility] Lymphocytes (Bld) [#/Vol]1.7 10 3/uL1.2-3.8[facility] [facility] Lymph[facility]/100 WBC Auto (Bld)on 75-49-4606Xoshbfjefmp/100 WBC (Bld) Lymphocytes/100 leukocytes in Blood by Automated aketaXqf97.5-60.0[facility] HospitalLymphocytes/100 WBC (Bld)17.7 %Low20.5-60.0[facility] Auto (RBC) [Entitic mass]on 15-74-1546RMW (RBC) [Entitic mass]MCH [Entitic mass] by Automated count25.9-34.0[facility] (RBC) [Entitic mass]31.3 pg25.9-34.0[facility] Auto (RBC) [Mass/Vol]on 90-53-1689CACW (RBC) [Mass/Vol]MCHC [Mass/volume] by Automated count29.9-35.2[facility] CenterMCHC (RBC) [Mass/Vol]34.9 g/dL29.9-35.2[facility] CenterMCV Auto (RBC) [Entitic vol]on 18-64-6670OUM (RBC) [Entitic vol]MCV [Entitic volume] by Automated count80.0-94.0[facility] HealthV (RBC) [Entitic vol] 89.7 fL80.0-94.0[facility] HospitalMonocytes Auto (Bld) [#/Vol]on 77-47-9737Fpclukuio (Bld) [#/Vol]Automated blood monocyte countHigh0.3-0.8 [facility] HospitalMonocytes (Bld) [#/Vol]1.2 10 3/uLHigh0.3-0.8 [facility] HospitalMonocytes/100 WBC Auto (Bld)on 09-22-2024 Monocytes/100 WBC (Bld)Automated monocyte %High1.7-12.0[facility] HospitalMonocytes/100 WBC (Bld)12.8 %High1.7-12.0[facility] HospitalNeutrophils Auto (Bld) [#/Vol]on 70-87-6642Zgnkdixathw (Bld) [#/Vol]Neutrophils [#/volume] in Blood by Automated countHigh1.4-6.5[facility] CenterNeutrophils (Bld) [#/Vol]6.6 10 3/uLHigh1.4-6.5[facility] CenterNeutrophils/100 WBC Auto (Bld)on 09-22-2024 Neutrophils/100 WBC (Bld)Automated neutrophil %43.0-75.0[facility] HospitalNeutrophils/100 WBC (Bld)68.3 %43.0-75.0[facility] HospitalNo Panel Informationon 32-84-2279Vdzthckzrs Level Dsuvad55.3 ug/mL 5.0-20.0[facility] HospitalC-Reactive Protein, Quantitative4.29 mg/dLHigh<=0.50[facility] HospitalEosinophils # (Auto)0.0 10 3/uL 0.0-0.7[facility] CenterImmature Granulocyte # (Auto)0.04 10 3/uLHigh0.00-0.03[facility] HospitalPlatelet mean volume Auto (Bld) [Entitic vol]on 78-57-9610Vvxogcrq mean volume (Bld) [Entitic vol]Platelet mean volume [Entitic volume] in Blood by Automated count9.5-13.5[facility] CenterPlatelet mean volume (Bld) [Entitic vol]9.6 fL9.5-13.5 [facility] HospitalPlatelets Auto (Bld) [#/Vol]on 09-22-2024 Platelets (Bld) [#/Vol]Platelets [#/volume] in Blood by Automated irdeu269-820 [facility] HospitalPlatelets (Bld) [#/Vol]334 10 3/nV902-496 [facility] HospitalRBC Auto (Bld) [#/Vol]on 90-23-2966VQF (Bld) [#/Vol]Erythrocytes [#/volume] in Blood by Automated countLow4.70-6.10[facility] HospitalRB (Bld) [#/Vol]3.77 10 6/uLLow4.70-6.10[facility] Centererum or plasma albumin/globulin mass ratioon 09-22-2024 Albumin/Globulin [Mass ratio]Serum or plasma albumin/globulin mass ratio [facility] HospitalAlbumin/Globulin [Mass ratio]0.4 {ratio} [facility] Centererum or plasma anion gap determinationon 35-20-6444Zimjx gap [Moles/Vol]Serum or plasma anion gap determinationPike Community HospitalAnion gap [Moles/Vol]15.7 mmol/LFUC Medical CenterBasophils Auto (Bld) [#/Vol]on 48-08-9940Ojoruglgc (Bld) [#/Vol] Automated basophil count0.0-0.1[facility] CenterBasophils (Bld) [#/Vol]0.1 10 3/uL0.0-0.1[facility] CenterBasophils/100 WBC Auto (Bld)on 59-20-0131Xznqjemgl/100 WBC (Bld)Automated basophil %0.2-2.0[facility] HospitalBasophils/100 WBC (Bld)0.6 %0.2-2.0[facility] HospitalEosinophils/100 WBC Auto (Bld)on 13-90-5589Ggrlyynijdj/100 WBC (Bld)Automated eosinophil %Low0.9-7.0[facility] Eosinophils/100 WBC (Bld)0.2 %Low0.9-7.0[facility] Erythrocyte distribution width Auto (RBC) [Ratio]on 18-52-1433Drdfdyyqros distribution width (RBC) [Ratio]Erythrocyte distribution width [Ratio] by Automated count11.0-15.0[facility] HospitalErythrocyte distribution width (RBC) [Ratio]11.3 %11.0-15.0[facility] Estimated glomerular filtration rate (GFR) non- Americanon 09-21-2024 GFR/1.73 sq M.predicted among non-blacks MDRD (S/P/Bld) [Vol rate/Area]Estimated glomerular filtration rate (GFR) non->=60 mL/min/1.73m 2 [facility] HospitalGFR/1.73 sq M.predicted among non-blacks MDRD (S/P/Bld) [Vol rate/Area]mL/min/{1.73_m2}>=60 mL/min/1.73m 2[facility] Medical CenterGlobulin Calc (S) [Mass/Vol]on 71-48-0081Syqknrae (S) [Mass/Vol] Serum globulin measurement by calculation (mass/volume)[facility] HospitalGlobulin (S) [Mass/Vol]5.6 g/dLPike Community Hospital Hematocrit Auto (Bld) [Volume fraction]on 07-48-3468Zptofegovb (Bld) [Volume fraction]Hematocrit [Volume Fraction] of Blood by Automated uwgjiSec05.0-54.0 [facility] HospitalHematocrit (Bld) [Volume fraction]34.2 %Low 42.0-54.0[facility] HospitalHemoglobin [Mass/volume] in Bloodon 87-95-8150Tmpzzszdsb (Bld) [Mass/Vol]Hemoglobin [Mass/volume] in BloodLow 14.0-18.0[facility] HospitalHemoglobin (Bld) [Mass/Vol]11.6 g/dL Low14.0-18.0[facility] HospitalLaboratory - Chemistry and Chemistry - challengeon 78-54-6505Czypzhe [Mass/Vol]1.9 g/dLLow3.4-5.0[facility] HospitalALP [Catalytic activity/Vol]79 U/Y36-694OjvmeufdaPike Community HospitalALT [Catalytic activity/Vol]16 U/W12-27WivqgplcfPike Community HospitalAST [Catalytic activity/Vol]21 U/H16-75KyhujgvevPike Community HospitalBilirubin [Mass/Vol]0.5 mg/dL0.2-1.0[facility] Calcium [Mass/Vol]8.8 mg/dL8.5-10.1[facility] CenterChloride [Moles/Vol]103 mmol/Y51-147MyvgdzuuvPike Community HospitalCO2 [Moles/Vol]24.5 mmol/L21.0-32.0[facility] HospitalCreatinine [Mass/Vol]1.18 mg/dL 0.70-1.30[facility] HospitalGFR/1.73 sq M.predicted MDRD (S/P/Bld) [Vol rate/Area]mL/min/{1.73_m2}>=60 mL/min/1.73m 2[facility] CenterGlucose [Mass/Vol]106 mg/fS91-614EzwcjxqlzP[facility] Hospital Potassium [Moles/Vol]4.6 mmol/L3.5-5.1[facility] CenterProtein [Mass/Vol]7.5 g/dL6.4-8.2FOhioHealth Southeastern Medical Centerodium [Moles/Vol]137 mmol/J434-073UmysknsejPike Community HospitalUrea nitrogen [Mass/Vol]24.0 mg/dL High7.0-18.0[facility] HospitalUrea nitrogen/Creatinine [Mass ratio]20.3 mg/mgPike Community HospitalLaboratory - Hematology and Cell countson 53-22-6360Lyrwxdla granulocytes/100 WBC (Bld)0.5 %0.0-0.5[facility] CenterLeukocytes [#/volume] corrected for nucleated erythrocytes in Blood by Automated counon 41-07-0328AHI corrected for nucl RBC Auto (Bld) [#/Vol]Leukocytes [#/volume] corrected for nucleated erythrocytes in Blood by Automated counHigh4.0-11.0[facility] HospitalWBC corrected for nucl RBC Auto (Bld) [#/Vol]11.9 10 3/uLHigh4.0-11.0[facility] HospitalLymphocytes Auto (Bld) [#/Vol]on 64-51-6247Fvookhjpsxi (Bld) [#/Vol]Lymphocytes [#/volume] in Blood by Automated count1.2-3.8[facility] HospitalLymphocytes (Bld) [#/Vol]1.9 10 3/uL1.2-3.8[facility] HospitalLymphocytes/100 WBC Auto (Bld)on 09-21-2024 Lymphocytes/100 WBC (Bld)Lymphocytes/100 leukocytes in Blood by Automated count Low20.5-60.0[facility] HospitalLymphocytes/100 WBC (Bld)15.9 %Low 20.5-60.0[facility] HealthH Auto (RBC) [Entitic mass]on 73-89-4589CXR (RBC) [Entitic mass]MCH [Entitic mass] by Automated count25.9-34.0 [facility] (RBC) [Entitic mass]30.8 pg25.9-34.0 [facility] HospitalMCHC Auto (RBC) [Mass/Vol]on 03-07-0472UJUY (RBC) [Mass/Vol]MCHC [Mass/volume] by Automated count29.9-35.2FParkwood HospitalHC (RBC) [Mass/Vol]33.9 g/dL29.9-35.2[facility] CenterMCV Auto (RBC) [Entitic vol]on 80-25-0378DYZ (RBC) [Entitic vol]MCV [Entitic volume] by Automated count80.0-94.0[facility] HospitalMCV (RBC) [Entitic vol]90.7 fL80.0-94.0[facility] HospitalMonocytes Auto (Bld) [#/Vol]on 42-48-9276Pgswuvpox (Bld) [#/Vol]Automated blood monocyte countHigh0.3-0.8[facility] HospitalMonocytes (Bld) [#/Vol]1.5 10 3/uLHigh0.3-0.8[facility] HospitalMonocytes/100 WBC Auto (Bld)on 97-52-0730Efivtlwkb/100 WBC (Bld)Automated monocyte %High1.7-12.0[facility] HospitalMonocytes/100 WBC (Bld)12.6 %High1.7-12.0[facility] HospitalNeutrophils Auto (Bld) [#/Vol]on 07-37-6064Kqyxhmqmrgv (Bld) [#/Vol]Neutrophils [#/volume] in Blood by Automated countHigh1.4-6.5 [facility] HospitalNeutrophils (Bld) [#/Vol]8.4 10 3/uLHigh1.4-6.5 [facility] HospitalNeutrophils/100 WBC Auto (Bld)on 09-21-2024 Neutrophils/100 WBC (Bld)Automated neutrophil %43.0-75.0[facility] HospitalNeutrophils/100 WBC (Bld)70.2 %43.0-75.0[facility] HospitalNo Panel Informationon 08-40-7684Pwwrcgdkicv # (Auto)0.0 10 3/uL0.0-0.7 [facility] HospitalImmature Granulocyte # (Auto)0.06 10 3/uLHigh 0.00-0.03[facility] HospitalPlatelet mean volume Auto (Bld) [Entitic vol]on 51-62-6281Qjgwntzm mean volume (Bld) [Entitic vol]Platelet mean volume [Entitic volume] in Blood by Automated count9.5-13.5[facility] CenterPlatelet mean volume (Bld) [Entitic vol]9.7 fL9.5-13.5[facility] CenterPlatelets Auto (Bld) [#/Vol]on 12-59-2592Ujjikgdfi (Bld) [#/Vol]Platelets [#/volume] in Blood by Automated -950NbxdyojclPike Community HospitalPlatelets (Bld) [#/Vol]314 10 3/rH462-818LvcsvggdlPike Community HospitalRBC Auto (Bld) [#/Vol]on 72-57-6753TML (Bld) [#/Vol]Erythrocytes [#/volume] in Blood by Automated countLow4.70-6.10[facility] HospitalRBC (Bld) [#/Vol]3.77 10 6/uLLow4.70-6.10[facility] Serum or plasma albumin/globulin mass ratioon 36-19-9893Jcajghz/Globulin [Mass ratio]Serum or plasma albumin/globulin mass ratioPike Community HospitalAlbumin/Globulin [Mass ratio]0.3 {ratio}[facility] Serum or plasma anion gap determinationon 26-73-8419Ugoch gap [Moles/Vol]Serum or plasma anion gap determinationPike Community HospitalAnion gap [Moles/Vol]14.1 mmol/LFUC Medical CenterBasophils Auto (Bld) [#/Vol]on 75-71-6842Gquvokcet (Bld) [#/Vol]Automated basophil count0.0-0.1 [facility] HospitalBasophils (Bld) [#/Vol]0.1 10 3/uL0.0-0.1 [facility] HospitalBasophils/100 WBC Auto (Bld)on 09-20-2024 Basophils/100 WBC (Bld)Automated basophil %0.2-2.0[facility] HospitalBasophils/100 WBC (Bld)0.8 %0.2-2.0[facility] Eosinophils/100 WBC Auto (Bld)on 76-27-0926Vqvbftchxbq/100 WBC (Bld)Automated eosinophil %Low0.9-7.0[facility] HospitalEosinophils/100 WBC (Bld) 0.0 %Low0.9-7.0[facility] HospitalErythrocyte distribution width Auto (RBC) [Ratio]on 81-66-0178Soigktezvfq distribution width (RBC) [Ratio] Erythrocyte distribution width [Ratio] by Automated count11.0-15.0[facility] HospitalErythrocyte distribution width (RBC) [Ratio]11.2 % 11.0-15.0[facility] HospitalEstimated glomerular filtration rate (GFR) non- Americanon 04-45-2050PGB/1.73 sq M.predicted among non-blacks MDRD (S/P/Bld) [Vol rate/Area]Estimated glomerular filtration rate (GFR) non- AmericanLow>=60 mL/min/1.73m 2[facility] Medical CenterGFR/1.73 sq M.predicted among non-blacks MDRD (S/P/Bld) [Vol rate/Area]52 mL/min/{1.73_m2}Low>=60 mL/min/1.[address]m [address] [place], [place] [address]Globulin Calc (S) [Mass/Vol]on 05-26-1699Duigdjis (S) [Mass/Vol]Serum globulin measurement by calculation (mass/volume)[facility] Globulin (S) [Mass/Vol]6.6 g/dLPike Community HospitalHematocrit Auto (Bld) [Volume fraction]on 26-83-1906Vsgzzxkxvl (Bld) [Volume fraction]Hematocrit [Volume Fraction] of Blood by Automated cwttqUvk38.0-54.0[facility] HospitalHematocrit (Bld) [Volume fraction]41.1 %Low42.0-54.0[facility] HospitalHemoglobin [Mass/volume] in Bloodon 08-05-0183Qmtkirdkcb (Bld) [Mass/Vol]Hemoglobin [Mass/volume] in Blood14.0-18.0[facility] HospitalHemoglobin (Bld) [Mass/Vol]14.0 g/dL14.0-18.0[facility] HospitalLaboratory - Chemistry and Chemistry - challengeon 09-20-2024 Albumin [Mass/Vol]2.4 g/dLLow3.4-5.0[facility] HospitalALP [Catalytic activity/Vol]101 U/K50-599CmvhrxstrPike Community HospitalALT [Catalytic activity/Vol]25 U/C42-19QerlirjfrPike Community HospitalAST [Catalytic activity/Vol]28 U/V23-80GknpaoslzPike Community HospitalBilirubin [Mass/Vol]0.7 mg/dL0.2-1.0[facility] HospitalCalcium [Mass/Vol]9.6 mg/dL8.5-10.1[facility] CenterChloride [Moles/Vol]99 mmol/L 98-107[facility] HospitalCO2 [Moles/Vol]28.1 mmol/L21.0-32.0 [facility] HospitalCreatinine [Mass/Vol]1.37 mg/dLHigh0.70-1.30 [facility] HospitalGFR/1.73 sq M.predicted MDRD (S/P/Bld) [Vol rate/Area]mL/min/{1.73_m2}>=60 mL/min/1.73m 2[facility] Glucose [Mass/Vol]130 mg/zRXkrr64-386QljrkgbtjPike Community HospitalPotassium [Moles/Vol]4.5 mmol/L3.5-5.1[facility] CenterProtein [Mass/Vol] 9.0 g/dLHigh6.4-8.2FOhioHealth Southeastern Medical Centerodium [Moles/Vol]132 mmol/L Tve244-783FerfsiheiPike Community HospitalUrea nitrogen [Mass/Vol]18.0 mg/dL 7.0-18.0[facility] HospitalUrea nitrogen/Creatinine [Mass ratio] 13.1 mg/mgPike Community HospitalLaboratory - Hematology and Cell countson 23-86-0133DMF (Bld) [Velocity]mm/hHigh<=20[facility] HospitalImmature granulocytes/100 WBC (Bld)0.3 %0.0-0.5[facility] CenterLeukocytes [#/volume] corrected for nucleated erythrocytes in Blood by Automated counon 90-63-0191FBK corrected for nucl RBC Auto (Bld) [#/Vol] Leukocytes [#/volume] corrected for nucleated erythrocytes in Blood by Automated counHigh4.0-11.0[facility] HospitalWBC corrected for nucl RBC Auto (Bld) [#/Vol]11.9 10 3/uLHigh4.0-11.0[facility] Lymphocytes Auto (Bld) [#/Vol]on 37-95-3963Btezswlphib (Bld) [#/Vol]Lymphocytes [#/volume] in Blood by Automated count1.2-3.8[facility] Lymphocytes (Bld) [#/Vol]1.9 10 3/uL1.2-3.8[facility] Lymphocytes/100 WBC Auto (Bld)on 39-98-3860Tscexwmxlgx/100 WBC (Bld) Lymphocytes/100 leukocytes in Blood by Automated hiowoPkg34.5-60.0[facility] HospitalLymphocytes/100 WBC (Bld)15.9 %Low20.5-60.0[facility]H Auto (RBC) [Entitic mass]on 18-53-7012JKR (RBC) [Entitic mass]MCH [Entitic mass] by Automated count25.9-34.0[facility] HealthH (RBC) [Entitic mass]30.8 pg25.9-34.0[facility] HospitalMCHC Auto (RBC) [Mass/Vol]on 23-89-5237CBFA (RBC) [Mass/Vol]MCHC [Mass/volume] by Automated count29.9-35.2[facility] CenterMCHC (RBC) [Mass/Vol]34.1 g/dL29.9-35.2[facility] CenterMCV Auto (RBC) [Entitic vol]on 84-99-5029TVE (RBC) [Entitic vol]MCV [Entitic volume] by Automated count80.0-94.0[facility] HealthV (RBC) [Entitic vol] 90.5 fL80.0-94.0[facility] HospitalMonocytes Auto (Bld) [#/Vol]on 05-75-1068Gpcyatdxz (Bld) [#/Vol]Automated blood monocyte countHigh0.3-0.8 [facility] HospitalMonocytes (Bld) [#/Vol]1.4 10 3/uLHigh0.3-0.8 [facility] HospitalMonocytes/100 WBC Auto (Bld)on 09-20-2024 Monocytes/100 WBC (Bld)Automated monocyte %High1.7-12.0[facility] HospitalMonocytes/100 WBC (Bld)12.1 %High1.7-12.0[facility] HospitalNeutrophils Auto (Bld) [#/Vol]on 70-40-9617Wamytwqbrwy (Bld) [#/Vol]Neutrophils [#/volume] in Blood by Automated countHigh1.4-6.5[facility] CenterNeutrophils (Bld) [#/Vol]8.5 10 3/uLHigh1.4-6.5[facility] CenterNeutrophils/100 WBC Auto (Bld)on 09-20-2024 Neutrophils/100 WBC (Bld)Automated neutrophil %43.0-75.0[facility] HospitalNeutrophils/100 WBC (Bld)70.9 %43.0-75.0[facility] HospitalNo Panel Informationon 15-59-3723X-Reactive Protein, Quantitative6.32 mg/dLHigh<=0.50[facility] HospitalEosinophils # (Auto)0.0 10 3/uL 0.0-0.7[facility] CenterImmature Granulocyte # (Auto)0.04 10 3/uLHigh0.00-0.03[facility] HospitalPlatelet mean volume Auto (Bld) [Entitic vol]on 73-53-0444Zdbxhifu mean volume (Bld) [Entitic vol]Platelet mean volume [Entitic volume] in Blood by Automated count9.5-13.5[facility] CenterPlatelet mean volume (Bld) [Entitic vol]9.5 fL9.5-13.5 [facility] HospitalPlatelets Auto (Bld) [#/Vol]on 09-20-2024 Platelets (Bld) [#/Vol]Platelets [#/volume] in Blood by Automated -275 [facility] HospitalPlatelets (Bld) [#/Vol]401 10 3/nJ271-975 [facility] HospitalRBC Auto (Bld) [#/Vol]on 01-06-9873BSZ (Bld) [#/Vol]Erythrocytes [#/volume] in Blood by Automated countLow4.70-6.10[facility] HospitalRB (Bld) [#/Vol]4.54 10 6/uLLow4.70-6.10[facility] Centererum or plasma albumin/globulin mass ratioon 09-20-2024 Albumin/Globulin [Mass ratio]Serum or plasma albumin/globulin mass ratio [facility] HospitalAlbumin/Globulin [Mass ratio]0.4 {ratio} [facility] Centererum or plasma anion gap determinationon 46-81-7357Lvgmv gap [Moles/Vol]Serum or plasma anion gap determinationPike Community HospitalAnion gap [Moles/Vol]9.4 mmol/LFUC Medical CenterCreatinine [Mass/volume] in UrineOrdered By: Yolette Ge on 06-18-2024 Creatinine (U) [Mass/Vol]Creatinine [Mass/volume] in UrinePike Community HospitalComment on above:No reference range establishedMicroAlb Creat Ratio,Uon 96-86-3684Befljzt DL <= 20 mg/L (U) [Mass/Vol]mg/dLHigh0.0-1.8[facility] Physician GroupComment on above:Performed By: #### URMACRERAT #### [facility] [address] [place] [address] USACreatinine, Urine (Random)123.00 mg/dLNormalThe [facility] Physician GroupComment on above:Result Comment: No reference range established Performed By: #### URMACRERAT #### [facility] [address] [place] [address] USAMicroalbumin/Creatinine RatioNot performedNormal0.0-30.0 [facility] Physician [facility] Hospital BiloxiComment on above:Result Comment: PERFORMED BY: [facility] [address] [place] [address] PATHOLOGIST PROCESS SAFETY SPECIALIST JAMIL BONILLA M.D.Performed By: #### URMACRERAT #### [facility] [address] [place] [address] USAMicroalbumin [Mass/volume] in UrineOrdered By: Yolette Ge on 01-09-1461Sfqhfkd DL <= 20 mg/L (U) [Mass/Vol]Microalbumin [Mass/volume] in UrineHigh0.0-1.8[facility] HospitalUrine microalbumin/creatinine mass ratioOrdered By: Yolette Ge on 06-18-2024 Albumin/Creatinine DL <= 20 mg/L (U) [Mass ratio]Urine microalbumin/creatinine mass ratioPike Community HospitalComment on above:Test not performed HbA1c HPLC (Bld) [Mass fraction]on 57-18-5689YxQ2w (Bld) [Mass fraction] Hemoglobin A1c/Hemoglobin.total in Blood by HPLCPike Community HospitalNo Panel Informationon 97-91-7744Ibffsqb Nshsvbg963MpwugkkfcPike Community HospitalCT ABDOMEN WO CONTon 93-75-7293TO ABDOMEN WO CONTCT ABDOMEN WO CONT HISTORY [...] by Robinson Camarena MD on 04/11/2024 11:15 [facility]CT [facility] WO CONTon 22-48-9170QT CHEST WO CONTCT CHEST WO CONT CT [...] by Camille Guido MD on 04/11/2024 11:15 [facility] SystemHbA1c HPLC (Bld) [Mass fraction]on 19-44-9142UdQ5u (Bld) [Mass fraction] 6.4 %[facility] HospitalNo Panel Informationon 59-81-8053Cbzkelj Resakkg174WcwvsfrvkPike Community HospitalA1C HEMOGLOBINon 32-60-3812ZkP7o (Bld) [Mass fraction]6.9 %[employer] Other Glucose - FINGER STICKon 47-40-5088Lpkeuqc [Mass/Vol] 132 mg/dLNohedrick medical center [place] Other HbA1c (Bld) [Mass fraction]on 54-69-1905G2C HEMOGLOBIN [employer] Other a1c HEMOGLOBINon 49-21-9792GfQ3n (Bld) [Mass fraction] 6.4 %[employer] Other Creatinine [Mass/volume] in UrineOrdered By: Yolette Ge on 93-20-9741Ovhkttjito (U) [Mass/Vol]89.0 mg/dL14.0-26.0[facility] HospitalGlucose - FINGER STICKon 96-22-1354Sxlhris [Mass/Vol]132 mg/dLNohedrick medical center [place] Other HbA1c (Bld) [Mass fraction]on 64-20-3944A8Z HEMOGLOBIN [employer] Other microAlb Creat Ratio,Uon 04-88-6515Adurntfrne (U) [Mass/Vol]89.0523319 mg/kXWhyy95.0-26.0 mg/dLBoise Gobbler Other microAlb Creat Ratio,UOrdered By: Yolette Ge on 38-32-4207Zzxuymi DL <= 20 mg/L (U) [Mass/Vol]mg/dL0.0-1.8[facility] HospitalAlbumin/Creatinine DL <= 20 mg/L (U) [Mass ratio][facility] HospitalComment on above:Test not performedGlucose - FINGER STICK on 58-20-5622Oycsuck [Mass/Vol]160 mg/dLBoise [place] Other a1c HEMOGLOBINon 72-86-8043UeV1u (Bld) [Mass fraction] 7.0 %[employer] Other Glucose - FINGER STICKon 02-86-4444Dkqzjmx [Mass/Vol] 88 mg/dLNoChangeCorp [place] Other HbA1c (Bld) [Mass fraction]on 96-48-7365B4U HEMOGLOBIN [employer] Other Glucose - FINGER STICKon 58-37-9907Juqydvu [Mass/Vol] 137 mg/dLNohedrick medical center [place] Other a1c HEMOGLOBINon 42-49-2428PzC6c (Bld) [Mass fraction] 7.5 %[employer] Other Glucose - FINGER STICKon 90-02-3042Keqoitk [Mass/Vol] 199 mg/dLNohedrick medical center [place] Other HbA1c (Bld) [Mass fraction]on 42-17-2799N6S HEMOGLOBIN [employer] Other a1c HEMOGLOBINon 86-14-4284FvE3w (Bld) [Mass fraction] 7.7 %[employer] Other Glucose - FINGER STICKon 58-31-0404Ycwnzsp - FINGER STICKNohedrick medical center [place] Other a1c HEMOGLOBINon 13-83-7130QeB8c (Bld) [Mass fraction] 8.1 %[employer] Other Glucose - FINGER STICKon 65-24-0538Qwncqbb [Mass/Vol] 232 mg/dLNoChangeCorp [place] Other HbA1c (Bld) [Mass fraction]on 62-06-4903U5W HEMOGLOBIN [employer] Other a1c HEMOGLOBINon 20-43-3592JmD5q (Bld) [Mass fraction] 8.0 %[employer] Other Glucose - FINGER STICKon 54-93-0997Zotiudg [Mass/Vol] 159 mg/dLNoDragonfly List Other HbA1c (Bld) [Mass fraction]on 91-95-8861Y9K HEMOGLOBIN [employer] Other ACETONE SERUMon 49-22-0237KABQOZQFLXFQChlijhAUOBIAEA The [facility]aritan HospitalComment on above:Performed By: #### ACETON ####[facility] [address] [place], [place] [address]Crpezi KarenBNPon 38-60-9255Aunqgiieqhv peptide B (Bld) [Mass/Vol]72.0 pg/mLNormal<=900.0The [facility] HospitalComment on above:Performed By: #### CMP, TSH, TROP, BNP #### [facility] [address] [address] Kisha KarenCBC AUTO DIFFon 49-20-4922Cjiyibogf (Bld) [#/Vol]0.0 103/ulNormal 0.0-0.1The [facility] HospitalComment on above:Performed By: #### CBC #### [facility] [address] [address] Kisha KarenBasophils/100 WBC (Bld)0.4 %Normal0.2-2.0The [facility] Comment on above:Performed By: #### CBC #### [facility] [address] [address] Kisha KarenEosinophils (Bld) [#/Vol]0.0 103/ulNormal0.0-0.7The [facility] HospitalComment on above:Performed By: #### CBC #### [facility] [address] [address] Kisha KarenEosinophils/100 WBC (Bld)0.0 %Critically low0.9-7.0[facility]:Performed By: #### CBC #### [facility] [address] [address] Kisha KarenErythrocyte distribution width (RBC) [Ratio]13.3 %Gbqkfv65.0-15.0[facility]Comment on above:Performed By: #### CBC #### [facility] [address] [place] [address] Kisha KarenHematocrit (Bld) [Volume fraction]45.3 %Lkbtkf58.0-54.0[facility] on above:Performed By: #### CBC #### [facility] [address] [place] [address] Kisha KarenHemoglobin (Bld) [Mass/Vol]15.9 g/eBKnxaqa89.0-18.0[facility]Comment on above:Performed By: #### CBC #### [facility] [address] [place] [address] Kisha KarenIG #0.03 10e3/ulNormal0.00-0.03[facility]Comment on above:Performed By: #### CBC #### [facility] [address] [place] [address] Kisha KarenIG %0.6 %Critically high0.0-0.5[facility]Comment on above:Performed By: #### CBC #### [facility] [address] [place] [address] Kisha KarenLymphocytes (Bld) [#/Vol]1.8 103/ulNormal1.2-3.8[facility] HospitalComment on above:Performed By: #### CBC #### [facility] [address] [place] [address] Kisha KarenLymphocytes/100 WBC (Bld)37.3 %Mpogfe99.5-60.0[facility] Comment on above:Performed By: #### CBC #### [facility] [address] [place] [address] Kisha KarenMANUAL DIFF REQNONormalThe [facility] HospitalComment on above: Performed By: #### CBC #### [facility] [address] [place] [address] Kisha KarenMCH (RBC) [Entitic mass]31.4 ccJqnvru37.9-34.0[facility] Comment on above:Performed By: #### CBC #### [facility] [address] [id number] Kisha KarenMCHC (RBC) [Mass/Vol]35.1 g/jOClfazs75.9-35.2[facility] Comment on above:Performed By: #### CBC #### [facility] [address] [place] [address] Kisha KarenMCV (RBC) [Entitic vol]89.3 xLXvwgrb47.0-94.0The [facility] Comment on above:Performed By: #### CBC #### [facility] [address] [place] [address] Kisha KarenMonocytes (Bld) [#/Vol]0.7 103/ulNormal0.3-0.8The [facility] Comment on above:Performed By: #### CBC #### [facility] [address] [place] [address] Kisha KarenMonocytes/100 WBC (Bld)14.5 %Critically high1.7-12.0The [facility] HospitalComment on above:Performed By: #### CBC #### [facility] [address] [place] [address] Kisha KarenNeutrophils (Bld) [#/Vol]2.3 103/ulNormal1.4-6.5The [facility] HospitalComment on above:Performed By: #### CBC #### [facility] [address] [place] [address] Kisha KarenNeutrophils/100 WBC (Bld)47.2 %Osmrxy60.0-75.0The [facility] Comment on above:Performed By: #### CBC #### [facility] [address] [place], [place] [id number] Kisha KarenPlatelet mean volume (Bld) [Entitic vol]11.7 fLNormal9.5-13.5The [facility] HospitalComment on above:Performed By: #### CBC #### [facility] [address] [place] [address] Kisha KarenPlatelets (Bld) [#/Vol]157 103/qfXfonme635-420TafWood County Hospital Comment on above:Performed By: #### CBC #### [facility] [address] [address] Kisha TeresaRBC (Bld) [#/Vol]5.07 106/ulNormal4.70-6.10The [facility] Comment on above:Performed By: #### CBC #### [facility] [address] [address] Kisha TeresaWBC (Bld) [#/Vol]4.9 103/ulNormal4.0-11.0[facility] Comment on above:Performed By: #### CBC #### [facility] [address] [address] Kisha CostelloenCTA CHEST WO W CONon [id number] CHEST WO W CONEXAMINATION: CTA CHEST WO [...] Electronically authenticated by: NORY WAN Date: 2020-04-08 12:41NormTrinity Health System Twin City Medical CenterD-DIMERon [id number]-DIMER COMMENTSSEE BELOWLicking Memorial HospitalComment on above:Result Comment: Increases in D-Dimer [...] generalizd hospitalization.Performed By: #### DDIM, PTT, PT ####[facility] [address] [address]Gerken KarenFibrin D-dimer FEU IA (Bld) [Mass/Vol]1.16 ug/mLCritically high0.19-0.50The [facility] HospitalComment on above:Result Comment: test repeated critcal value verified Performed By: #### DDIM, PTT, PT ####[facility] [address] [address]Gerken KarenPH VENOUS BLOODon [id number] VENOUS 46.4 hqQhKydjqr97.0-52.0The [facility] HospitalComment on above:Performed By: #### PHVEN #### [facility] [address] [place] [address] Kisha KarenpH VENOUS7.02Cwuasz8.33-7.43The [facility] HospitalComment on above: Performed By: #### PHVEN #### [facility] [address] [place] [address] Kisha KarenPROF 14(COMP METB)on 09-60-7152Ogxyube [Mass/Vol]2.4 g/dLCritically low3.5-5.0The [facility] HospitalComment on above:Performed By: #### CMP, TSH, TROP, BNP #### [facility] [address] [place] [address] Kisha KarenAlbumin/Globulin [Mass ratio]0.4 {ratio}NormalThe [facility] Comment on above:Performed By: #### CMP, TSH, TROP, BNP #### [facility] [address] [place], [place] [address] Kisha KarenALP [Catalytic activity/Vol]68 U/KAcdvcc65-452Vgf [facility] Comment on above:Performed By: #### CMP, TSH, TROP, BNP #### [facility] [address] [address] Kisha KarenALT [Catalytic activity/Vol]33 U/GNmatsj26-91Dva [facility] Comment on above:Performed By: #### CMP, TSH, TROP, BNP #### [facility] [address] [address] Kisha KarenAnion gap [Moles/Vol]10.1 mmol/LNormalThe [facility] HospitalComment on above:Performed By: #### CMP, TSH, TROP, BNP #### [facility] [address] [place] [address] Kisha KarenAST [Catalytic activity/Vol]50 U/NXtlnkf93-91Ndq [facility] Comment on above:Performed By: #### CMP, TSH, TROP, BNP #### [facility] [address] [place] [address] Kisha KarenBilirubin Ql (U)0.9 mg/dLNormal0.2-1.3The [facility] HospitalComment on above:Performed By: #### CMP, TSH, TROP, BNP #### [facility] [address] [place] [address] Kisha KarenCalcium [Mass/Vol]8.7 mg/dLNormal8.4-10.2The [facility] Comment on above:Performed By: #### CMP, TSH, TROP, BNP #### [facility] [address] [place] [address] Kisha KarenChloride [Moles/Vol]96 mmol/LCritically lla06-297Had [facility] HospitalComment on above:Performed By: #### CMP, TSH, TROP, BNP #### [facility] [address] [place] [address] Kisha KarenCO2 [Moles/Vol]27.9 mmol/LTykndc70.0-30.0The [facility] Comment on above:Performed By: #### CMP, TSH, TROP, BNP #### [facility] [address] [address] Kisha KarenCreatinine [Mass/Vol]1.13 mg/dLNormal0.66-1.25The [facility] Comment on above:Performed By: #### CMP, TSH, TROP, BNP #### [facility] [address] [address] Kisha KarenEGFR-AF SOUTH AFRICAN>60Normal>=60The [facility] HospitalComment on above: Performed By: #### CMP, TSH, TROP, BNP #### [facility] [address] [place] [address] Kisha KarenEGFR-NON AF SOUTH AFRICAN>60Normal>=60The [facility] HospitalComment on above:Performed By: #### CMP, TSH, TROP, BNP #### [facility] [address] [place] [address] Kisha KarenGlobulin (S) [Mass/Vol]5.8 g/dLNormalThe [facility] HospitalComment on above:Performed By: #### CMP, TSH, TROP, BNP #### [facility] [address] [place] [address] Kisha KarenGlucose [Mass/Vol]263 mg/dLCritically cpxb14-258Ebi [facility] HospitalComment on above:Performed By: #### CMP, TSH, TROP, BNP #### [facility] [address] [place] [address] Kisha KarenPotassium [Moles/Vol]3.0 mmol/LCritically low3.4-5.0The [facility] HospitalComment on above:Performed By: #### CMP, TSH, TROP, BNP #### [facility] [address] [place] [address] Kisha KarenProtein [Mass/Vol]8.2 g/dLNormal6.1-8.2The [facility] HospitalComment on above:Performed By: #### CMP, TSH, TROP, BNP #### [facility] [address] [place] [address] Kisha KarenSodium [Moles/Vol]131 mmol/LCritically vjc971-857Por [facility] on above:Performed By: #### CMP, TSH, TROP, BNP #### [facility] [address] [address] Kisha KarenUrea nitrogen [Mass/Vol]15.0 mg/dLNormal9.0-20.0The [facility] on above:Performed By: #### CMP, TSH, TROP, BNP #### [facility] [address] [address] Kisha KarenUrea nitrogen/Creatinine [Mass ratio]13.3 mg/mgNormMarietta Osteopathic Clinic on above:Performed By: #### CMP, TSH, TROP, BNP #### [facility] [address] [address] Kisha KarenPROTIMEon [id number] Coag (PPP) [Relative time]1.03 {INR}Normal The [facility] on above:Performed By: #### DDIM, PTT, PT ####[facility] [address] [address]Gerken KarenPT Coag (PPP) [Time]10.9 sNormal9.0-11.6The [facility] on above:Performed By: #### DDIM, PTT, PT ####[facility] [address] [address]Gerken KarenPT Coag (PPP) [Time]SEE BELOWNormal The [facility] on above:Result Comment: DESIRED INR: 2.0 - 3.0 CONDITIONS NOT LISTED BELOW 2.5 - 3.5 FOR PROSTHETIC HEART VALVE REPLACEMENT 2.5 - 3.5 RECURRENT THROMBOSISPerformed By: #### DDIM, PTT, PT ####[facility] [address] [address]Gerken KarenPTTon [id number] Coag (Bld) [Time]PLEASE NOTE: NORMAL RANGE CHANGE 03-31-2015 DUE TO REAGENT LOT CHANGENormMarietta Osteopathic Clinic on above:Performed By: #### DDIM, PTT, PT #### [facility] [address] [place] [address] Kisha OgPTT Coag (Bld) [Time]26.7 zOprupr08.3-36.2[facility] Comment on above:Performed By: #### DDIM, PTT, PT #### [facility] [address] [place] [address] Kisha CostelloenRapid Covid-19 PCR (CVDRPD)on 03-28-6874Btdqdkpw LDT InfoSEE BELOW NormalWood County HospitalComment on above:Result Comment: This test is not yet approved or cleared by the [place] Food and Drug Administration (FDA) . This test was developed by [employer], [facility]. The performance characteristics of this test were validated by The [facility]. The results are not intended to be used as the sole means for clinical diagnosis or patient management decisions. The [facility] is authorized under Clinical Laboratory Improvement Amendments (CLIA) to perform high-comple xity testing. When diagnostic testing is negative, the possibility of a false negative should be considered in the context of a patients recent exposures and the presence of clinical signs and symptoms consistent with SARS-CoV-2.Performed By: #### CVDRPD #### [facility] [address] [place] [address] Kisha CostelloAryfuPKNL-ZcU-1JDUFOKGKHVQ DETECTEDThe [facility] HospitalComment on above: Result Comment: .Performed By: #### CVDRPD #### [facility] [address] [place] [address] Kisha KarenTROPONIN - Ion [id number] I.cardiac [Mass/Vol]SEE BELOW NormalThe [facility] HospitalComment on above:Result Comment: <0.034 ng/ml NEGATIVE 0.034-0.119 INDETERMINATE 0.120 AMI CUT OFFPerformed By: #### CMP, TSH, TROP, BNP #### [facility] [address] [place] [address] Kisha KarenTroponin I.cardiac [Mass/Vol]ng/mLNormal<=0.034[facility] Comment on above:Performed By: #### CMP, TSH, TROP, BNP #### [facility] [address] [place], [place] [address] Kisha GalvanHon [id number] Qn2.851 uIU/mLNormal0.470-4.680The [facility] HospitalComment on above:Performed By: #### CMP, TSH, TROP, BNP #### [facility] [address] QnSEE BELOWNoClinton Memorial HospitalComment on above:Result Comment: <0.34 UIU/ml HYPERTHYROID 0.34-5.60 UIU/ml EUTHYROID >5.60 UIU/ml HYPOTHYROIDPerformed By: #### CMP, TSH, TROP, BNP #### [facility] [address] [place] [address] Kisha CostelloenXR CHEST 1 Von [id number] CHEST 1 VEXAMINATION: XR CHEST 1 V [...] Electronically authenticated by: NORY WAN Date: 2020-04-08 11:49[facility] Vital Signs Date TimeVital SignValuePerforming QyhcoeisvLxxxkmkh1961 08:21-0500Body clhzeh976.99 cmDemulticare health Gabby MORENO Work Phone: [facility]11-11-2025 08:21-0500 Body mass index (BMI) [Ratio]24.7 kg/f4Vhzzbwn Gabby PANN Work Phone: [facility]11-11-2025 08:210500 Body nqrxyl98.84 kgDemulticare health Gabby PANN Work Phone: [facility]11-11-2025 08:21-0500 Diastolic blood eazmyysc06 mm[Hg]Yolette Scally 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 Work Phone: [facility]11-11-2025 08:21-0500 Heart rate81 /minDeborah Scally 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 Work Phone: [facility]11-11-2025 08:21-0500 Respiratory rate16 /minDeborah Scally 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 Work Phone: [facility]11-11-2025 08:21-0500 SaO2% (BldA) [Mass fraction]100 %Yolette Scally 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 Work Phone: [facility]11-11-2025 08:21-0500 Systolic blood mm[Hg]Yolette Scally 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 Work Phone: [facility]08-28-2025 09:05-0400 Body .99 cmDeborah Scally 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 Work Phone: [facility]08-28-2025 09:05-0400 Body mass index (BMI) [Ratio]24.8 kg/f8Erzlqut Scally 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 Work Phone: [facility]08-28-2025 09:05-0400 Body uoyfhc85.2 kgDeborah Scally 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 Work Phone: [facility]08-28-2025 09:05-0400 Diastolic blood wwzqtcwa70 mm[Hg]Yolette Scally 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 Work Phone: [facility]08-28-2025 09:05-0400 Heart rate81 /minDeborah Scally 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 Work Phone: [facility]08-28-2025 09:05-0400 Respiratory rate18 /minDeborah Scally 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 Work Phone: [facility]08-28-2025 09:05-0400 SaO2% (BldA) [Mass fraction]100 %Yolette Ge 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 Work Phone: [facility]08-28-2025 09:05-0400 Systolic blood ajinxpjt164 mm[Hg]Yolette Ge 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 Work Phone: [facility]06-19-2025 10:55-0400 Body .3 cmJamil Culver MD Work Phone: [phone]06-19-2025 10:55-0400Body mass index (BMI) [Ratio]23.63 kg/e8FbzkxfbJamil Culver MD Work Phone: [phone])[facility]06-19-2025 10:55-0400Body myetgh82.58 kgMoroshan Culvre MD Work Phone: [phone]06-19-2025 10:55-0400Diastolic blood nzzmdiqo21 mm[Hg]Jamil Culver MD Work Phone: [phone]06-19-2025 10:55-0400Heart rate 72 /minJamil Culver MD Work Phone: [phone]06-19-2025 10:55-0400Systolic blood lccevtjl178 mm[Hg]Jamil Culver MD Work Phone: [phone])[facility]06-05-2025 08:41-0400Body pynrcx166.99 cmPeter Beckley [facility] Hospitalander DPM Work Phone: [facility]06-05-2025 08:41-0400 Body mass index (BMI) [Ratio]24 kg/o3Unpkj [facility] DPM Work Phone: [facility]06-05-2025 08:41-0400 Body .6 kgPeter Beckley [facility] Hospital[facility] DPM Work Phone: [facility]06-05-2025 08:41-0400 Diastolic blood rugkookd97 mm[Hg]Mayra Spears DPM Work Phone: [facility]06-05-2025 08:41-0400 Heart rate88 /Gaudencio Spears DPM Work Phone: [facility]06-05-2025 08:41-0400 Respiratory rate18 /Gaudencio Spears DPM Work Phone: [facility]06-05-2025 08:41-0400 SaO2% (BldA) [Mass fraction]98 %Mayra Spears DPM Work Phone: [facility]06-05-2025 08:41-0400 Systolic blood fwrshcru43 mm[Hg]Mayra Spears DPM Work Phone: [facility]02-12-2025 08:41-0500 Body .99 cmP[facility]02-12-2025 08:41-0500Body mass index (BMI) [Ratio]26.9 kg/o6PmsajrqeiPike Community Hospital02-12-2025 08:41-0500Body lgioth31.4 kgP[facility]02-12-2025 08:41-0500Diastolic blood hgiprjov67 mm[Hg][facility] 06-18-2024 08:41-0500Heart rate74 /[facility] 06-18-2024 08:41-0500Respiratory rate18 /[facility] 06-18-2024 08:41-2164WyQ2% (BldA) [Mass fraction]99 %[facility]02-12-2025 08:41-0500Systolic blood sbtaruov650 mm[Hg][facility]12-18-2024 09:26-0500Body .99 cmP[facility]12-18-2024 09:26-0500Body mass index (BMI) [Ratio]26.8 kg/m2 [facility]12-18-2024 09:26-0500Body mppaxl59.27 kg [facility]12-18-2024 09:26-0500Diastolic blood obbyuiep54 mm[Hg][facility]12-18-2024 09:26-0500Heart rate83 /min [facility]12-18-2024 09:26-0500Respiratory rate18 /min [facility]12-18-2024 09:26-9223DkL3% (BldA) [Mass fraction]98 %[facility]12-18-2024 09:26-0500Systolic blood mm[Hg][facility]12-02-2024 08:17-0500 Body hvvjez250.3 cmChristarleth Daley DO Work Phone: [facility]Lgumjnrutt16-84-3536 08:17-0500Body mass index (BMI) [Ratio]26.11 kg/v1Fqrugtbvbru Edi DO Work Phone: [id number] 08:17-0500Body nvkyop28.2 kg Christarleth Daley DO Work Phone: [phone] 08:17-0500Diastolic blood ztnrzobf29 mm[Hg]Melanie Daley DO Work Phone: [facility]linZromykcsiv27-36-4776 08:17-0500Heart rate84 /min Melanie Daley DO Work Phone: [facility]linEjiufdtdcd32-61-7285 08:17-2726HfH6% (BldA) [Mass fraction]98 %Melanie Daley DO Work Phone: [facility]linWikrqbouhn47-01-5651 08:17-0500Systolic blood atvvoxli017 mm[Hg]Melanie Daley DO Work Phone: [facility]linAibnifjeos22-53-7399 09:58-0400Body dkanlk634.99 cmP[facility]09-16-2024 09:58-0400Body mass index (BMI) [Ratio]25.5 kg/m2YtezhdtxoPike Community Hospital09-16-2024 09:58-0400Body .28 kgP[facility]09-16-2024 09:58-0400Diastolic blood fwaxuijg83 mm[Hg][facility]09-16-2024 09:58-0400 Heart rate82 /[facility]09-16-2024 09:58-0400 Respiratory rate18 /[facility]09-16-2024 09:58-0400 SaO2% (BldA) [Mass fraction]99 %[facility]09-16-2024 09:58-0400Systolic blood mm[Hg][facility] 09-10-2023 08:17-0400Body yxsahl268.99 cmP[facility] 09-10-2023 08:17-0400Body mass index (BMI) [Ratio]26.9 kg/a9UfxdytqrvPike Community Hospital05-06-2024 08:17-0400Body lzrkzo10.33 kgPike [facility] Hospital05-06-2024 08:17-0400Diastolic blood jrubvcvv06 mm[Hg][facility]05-06-2024 08:17-0400Heart rate87 /[facility]05-06-2024 08:17-0400Respiratory rate18 /[facility]05-06-2024 08:17-8836TjZ3% (BldA) [Mass fraction]99 %[facility]05-06-2024 08:17-0400Systolic blood osdhrxwq240 mm[Hg][facility]01-30-2024 09:15-0500Body aofhld497.99 cmDeminor Ge Other [facility]01-30-2024 09:15-0500 Body mass index (BMI) [Ratio]25.9 kg/m7Stxvefg [employer]ist[employer] Other [employer] Other [id number] 09:15-0500Body .43 kgDeminor Ge Other [employer] Other 01-30-2024 09:15-0500Body upfkqg51.42 kgMD Annie Rodgers Work Phone: [facility]01-30-2024 09:15-0500 Diastolic blood mm[Hg]Yolette Scally Other [facility]01-30-2024 09:15-0500 Respiratory rate18 /minDeborah Scally Other [employer] Other [id number] 09:15-6484BdH7% (BldA) [Mass fraction]99 % Yolette Scally Other [employer] Other 01-30-2024 09:15-0500Systolic blood azcduuoh944 mm[Hg] Yolette Scally Other [facility]10-24-2023 10:45-0400 Body hbuzcd752.99 cmDeborah Scally Other [employer] Other 10-24-2023 10:45-0400Body mass index (BMI) [Ratio] 26.07 kg/i7Nodtgjp Scally Other [employer] Other 10-24-2023 10:45-0400Body bosotj37.93 kgDeborah Scally Other [employer] Other 10-24-2023 10:45-0400Diastolic blood gydilgfn77 mm[Hg] Yolette Scally Other [employer] Other 10-24-2023 10:45-0400Respiratory rate18 /minDeborah Scally Other [employer] Other 10-24-2023 10:45-1640VzO9% (BldA) [Mass fraction]99 % Yolette Scally Other [employer] Other 10-24-2023 10:45-0400Systolic blood gyytfsqf165 mm[Hg] Yolette Scally Other [employer] Other 08-15-2023 08:45-0400Body .99 cmDeborah Scally Other [employer] Other 08-15-2023 08:45-0400Body mass index (BMI) [Ratio] 26.37 kg/p5Ffuafok Scally Other [employer] Other 08-15-2023 08:45-0400Body zsyque18.83 kgDeborah Scally Other [employer] Other 08-15-2023 08:45-0400Diastolic blood kiikkvsi32 mm[Hg] Yolette Scally Other [employer] Other 08-15-2023 08:45-0400Respiratory rate18 /minDeborah Scally Other [employer] Other 08-15-2023 08:45-8849BfQ8% (BldA) [Mass fraction]98 % Yolette Scally Other [employer] Other 08-15-2023 08:45-0400Systolic blood zksakfir722 mm[Hg] Yolette Scally Other [employer] Other 05-30-2023 08:15-0400Body yltgyx566.99 cmDeborah Scally Other [employer] Other 05-30-2023 08:15-0400Body mass index (BMI) [Ratio]27.3 kg/d4Uzloiruminor Ge Other [employer] Other 05-30-2023 08:15-0400Body hloaks74.65 kgDeminor Ge Other [employer] Other 05-30-2023 08:15-0400Diastolic blood vooubldw17 mm[Hg] Yolette Philipply Other [employer] Other 05-30-2023 08:15-0400Respiratory rate18 /minDeborah Scally Other [employer] Other 05-30-2023 08:15-3935GpK7% (BldA) [Mass fraction]99 % Yolette Philipply Other [employer] Other 05-30-2023 08:15-0400Systolic blood reocwmki202 mm[Hg] Yolette Philipply Other [employer] Other 03-20-2023 10:30-0400Body nxhvoc145.99 cmAnnie Rodgers Other [employer] Other 03-20-2023 10:30-0400Body mass index (BMI) [Ratio] 27.72 kg/w5GskvyoAnnie Rodgers Other [employer] Other 03-20-2023 10:30-0400Body .92 kgAnnie Rodgers Other [employer] Other 03-20-2023 10:30-0400Diastolic blood nxyarlms68 mm[Hg] Annie Rodgers Other [employer] Other 03-20-2023 10:30-0088ToG5% (BldA) [Mass fraction]97 % Annie Rodgers Other [employer] Other 03-20-2023 10:30-0400Systolic blood sssuybhw781 mm[Hg] Annie Suzan Other [employer] Other 02-22-2023 09:00-0500Body ypqfmu255.26 cmDeminor Ge Other [employer] Other 02-22-2023 09:00-0500Body mass index (BMI) [Ratio] 27.98 kg/s0Klkylohminor Ge Other [employer] Other 02-22-2023 09:00-0500Body schqva37.96 kgDeminor Ge Other [employer] Other 02-22-2023 09:00-0500Diastolic blood pressureDeminor Ge Other [employer] Other 02-22-2023 09:00-0500Respiratory rate18 /minDeborah Scally Other [employer] Other 02-22-2023 09:00-0030LtS8% (BldA) [Mass fraction]98 % Yolette Philipply Other [employer] Other 02-22-2023 09:00-0500Systolic blood luczlpqk410 mm[Hg] Yolette Scally Other [employer] Other 12-30-2022 09:15-0500Body .26 cmDeborah Scally Other [employer] Other 12-30-2022 09:15-0500Body mass index (BMI) [Ratio] 28.84 kg/m2Shddyre Scally Other [employer] Other 12-30-2022 09:15-0500Body zyxgvc78.59 kgDeameliaah Scally Other [employer] Other 12-30-2022 09:15-0500Diastolic blood clmuybbx52 mm[Hg] Yolette Scally Other [employer] Other 12-30-2022 09:15-0500Respiratory rate18 /minDeborah Scally Other [employer] Other 12-30-2022 09:15-6830RyW4% (BldA) [Mass fraction]97 % Yolette Scally Other [employer] Other 12-30-2022 09:15-0500Systolic blood wulxvywb26 mm[Hg] Yolette Scally Other [employer] Other 09-30-2022 09:30-0400Body .26 cmDeameliaah Philipply Other [employer] Other 09-30-2022 09:30-0400Body mass index (BMI) [Ratio] 28.14 kg/c5Pktropu Scally Other [employer] Other 09-30-2022 09:30-0400Body jiccfl98.46 kgDeborah Scally Other [employer] Other 09-30-2022 09:30-0400Diastolic blood upgtskmw35 mm[Hg] Yolette Scally Other [employer] Other 09-30-2022 09:30-0400Respiratory rate18 /minDeborah Scally Other [employer] Other 09-30-2022 09:30-1753OwN2% (BldA) [Mass fraction]99 % Yolette Scally Other [employer] Other 09-30-2022 09:30-0400Systolic blood tsanxelz100 mm[Hg] Yolette Scally Other [employer] Other 06-28-2022 10:15-0400Body .26 cmDeborah Scally Other [employer] Other 06-28-2022 10:15-0400Body mass index (BMI) [Ratio] 27.76 kg/u6Newenpz Scally Other [employer] Other 06-28-2022 10:15-0400Body quzujq22.28 kgDeborah Scally Other [employer] Other 06-28-2022 10:15-0400Diastolic blood oyirejnp85 mm[Hg] Yolette Scally Other [employer] Other 06-28-2022 10:15-0400Respiratory rate18 /minDeborah Scally Other [employer] Other 06-28-2022 10:15-3401KcZ3% (BldA) [Mass fraction]99 % Yolette Scally Other [employer] Other 06-28-2022 10:15-0400Systolic blood nypwbviw138 mm[Hg] Yolette Scally Other [employer] Other 03-16-2022 09:45-0400Body umjahb961.26 cmDeborah Philipply Other [employer] Other 03-16-2022 09:45-0400Body mass index (BMI) [Ratio] 27.85 kg/s7Ishopxc Philipply Other [employer] Other 03-16-2022 09:45-0400Body etjmhi28.55 kgDeborah Scally Other [employer] Other 03-16-2022 09:45-0400Diastolic blood hswpiyps52 mm[Hg] Yolette Scally Other [employer] Other 03-16-2022 09:45-0400Respiratory rate20 /minDeborah Scally Other [employer] Other 03-16-2022 09:45-0085IpS4% (BldA) [Mass fraction]100 % Yolette Scally Other [employer] Other [id number] 09:45-0400Systolic blood hvmteheb757 mm[Hg] Yolette Ge Other [facility] [employer] Other Encounters Encounter DateEncounter TypeCare ProviderFacilityStart: 03-17-2025 End: 26-94-8234jpnockcmonTNZ [facility] SandStart: 03-17-2025 End: 34-17-0491Beqslrz encounter procedureNinoska Yusuf MD-[facility] Work Phone: Start: 70-71-1553cjeymwdiyhMHITROFOhioHealth Shelby Hospitaltart: 01-21-2025 End: 57-12-4415bjhdgtniqjZVA [facility] Work Phone: Start: 01-21-2025 End: 52-14-2248Ewkrrhcd ReferredPeter Regan DPM MS-LAB Path Spec [place] HospStart: 01-01-2025 End: 08-69-4247zqmnhfspjcNQD [facility] Work Phone: Start: 01-01-2025 End: 29-31-2392Hzjkjkv encounter procedureGomezminor Ge 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-[facility] Work Phone: Start: 11-12-2024 End: 11-73-6738noloakdwebBocqeco N [facility] BASKET FILLER-C Work Phone: [facility] Work Phone: Start: 11-12-2024 End: 70-76-2006Netnrfph ReferredPeter Regan DPM MS-LAB Path Spec [facility] HospStart: 10-29-2024 End: 82-17-4200ctgkjubjvfHykjley Rosa [facility] BASKET FILLER-C Work Phone: [facility] Work Phone: Start: 10-29-2024 End: 87-84-6939Ynuzsyfd ReferredPeter Regan DPM MS-LAB Path Spec [place] HospStart: 10-23-2024 End: 12-44-0584Hkuvfj outpatient visit 10 minutesMoroshan Culver MD Work Phone: [facility] Vascular FremontComment on above: Critical limb ischemia of right lower extremity with gangrene ([facility]) (Primary Dx)Start: 10-23-2024 End: 77-53-1870tgtdyndxyzQPIZKNJErie County Medical Center Ambulatory PPGStart: 10-17-2024 End: 48-58-4810vycxefcffqNPHCWKVOchsner LSU Health [facility]reveport HospitalStart: 10-09-2024 End: 63-65-3164ihxuwkxafkKeuen Highlander DPM Work Phone: [facility] Work Phone: Start: 10-09-2024 End: 54-78-8886Dmoiypc encounter procedurePeAgnesian HealthCare DPM Work Phone: [facility] Work Phone: Start: 10-07-2024 End: 70-65-5734dxplgyfbpbCCEYI [facility] HospitalStart: 09-25-2024 End: 12-95-7132qrwvzwtphqOPKUDBLErie County Medical Center Ambulatory PPGStart: 87-15-0894Rzj-patient / Non-visitPeAgnesian HealthCare DPM Work Phone: [facility] Work Phone: Start: 09-23-2024 End: 97-12-7073vqslkkkzgxBuhpe [facility] HospitalFacility:[facility] Centertart: 09-23-2024 End: 92-89-2081Sqibnxvv ReferredPeAgnesian HealthCare DPM Work Phone: [facility]-LAB Path Spec [place] HospStart: 28-49-6743Elb-patient / Non-visitPeAgnesian HealthCare DPM Work Phone: [facility] Work Phone: Start: 18-64-6521Cdz-patient / Non-visitPeter [facility] DPM Work Phone: [facility] Work Phone: Start: 62-59-7620Mlj-patient / Non-visitPeter [facility] DPM Work Phone: [facility] Work Phone: Start: 19-94-9157Afu-patient / Non-visitPeter [facility] DPM Work Phone: [facility] Work Phone: Start: 06-18-2024 End: 06-97-3573jvvcvjknxbWfnlooyVib[facility] Work Phone: Start: 06-18-2024 End: 66-96-9240Nznojhln ReferredFrankfort Regional Medical Center 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 Work Phone: [facility] [place] Work Phone: Start: 06-18-2024 End: 87-62-6188blpktfeelrYpotjrhno [facility] Work Phone: Start: 06-18-2024 End: 00-08-6153Nkuycrk encounter procedureFormerly [facility] Work Phone: Start: 04-23-2024 End: 77-48-7577Lzfzncj encounter procedureFormerly [facility] Work Phone: Start: 04-11-2024 End: 82-38-9580Ndtfgyeqs department patient visitDAVID WARDAvita Health Systemca Loup HospitalStart: 04-07-2024 End: 74-52-9544Mshltx flowsheetChristopher Edi DO Work Phone: NOACMC [facility]ALTH[facility] GLENBEIGH ROUTEStart: 04-07-2024 End: 74-87-8235Gwwbba flowsheetChristopher Edi DO Work Phone: no [facility] ROUTEStart: 04-07-2024 End: 94-91-6286Culspl outpatient new 45 minutesChristopher Edi DO Work Phone: noACMC HEALTHCARE SYSTEM GLENBEIGH ROUTEComment on above:Neuralgia (Primary Dx); DDD (degenerative disc disease), cervicalStart: 04-07-2024 End: 42-09-4692prqpljekaoGJBBOSAPTOA HASSETTNot AvailableStart: 01-21-2024 End: 80-03-5133jdvuzvfnyaAzunkupgnWayne Hospital Work Phone: Start: 01-21-2024 End: 82-80-7222Kruhnae encounter procedureFormerly [facility] Work Phone: Start: 09-10-2023 End: 68-26-2254qhtxhwkpfxIpqvljfksPeoples Hospital Work Phone: Start: 09-10-2023 End: 74-87-6140Rvqvdxx encounter procedureFormerly [facility] Physician GroupHUDSON [facility] Work Phone: Start: 06-07-2023 End: 42-93-6821jxdwwbewycCejuckk Scally Other [employer] Other Start: 58-51-2778Esvamwzak encounterMiriam Hospital Coordinated Care ClinicStart: 06-05-2023(DM) DiabetesDeWesterly Hospital Coordinated Care ClinicStart: 06-05-2023 End: 11-65-4444jcdogtevjuVG Marcia E Braun Work Phone: [employer] Other Start: 06-05-2023 End: 00-19-2348Fcmjstofrg RecurringMD Annie Rodgers Work Phone: [facility] CenterDiabetes [facility] Work Phone: Start: 06-05-2023 End: 55-14-6227Qisrfcw encounter procedureMD Annie Rodgers Work Phone: [facility]-Start: 05-18-2023 End: 84-31-2889yugmbkdbivSyfbbrm Scally Other [employer] Other Start: 77-94-4243Uhflusjga encounterDeWesterly Hospital Coordinated Care ClinicStart: 02-28-2023 End: 19-23-0771tagqynynidMwqmeum Scally Other [employer] Other Start: 57-12-4013Ldsmmxcoj encounterDeWesterly Hospital Coordinated Care ClinicStart: 02-27-2023(DM) DiabetesMiriam Hospital Coordinated Care ClinicStart: 02-27-2023 End: 22-55-8144ifjwvyckjqVgrjcoc Scally Other [employer] Other Start: 12-19-2022(DM) DiabetesYolette GeFormerly Park Ridge Healthtammy Coordinated Care ClinicStart: 12-19-2022 End: 89-92-4064ifqfpausyoVzulvfw Scally Other [employer] Other Start: 12-07-2022 End: 83-21-9870bcqnfwuuzpJyvvjnr Scally Other [employer] Other Start: 19-43-2220Qfcdixfbt encounterDeWesterly Hospital Coordinated Care ClinicStart: 10-03-2022(DM) DiabetesDeWesterly Hospital Coordinated Care ClinicStart: 10-03-2022 End: 50-39-4229hilwqonnldLvobnii Scally Other [employer] Other Start: 67-32-8754Nuntlappj encounterDeWesterly Hospital Coordinated Care ClinicStart: 07-24-2022 End: 07-01-0644whfefjpdvtSyeson Braun Other nort [employer] Other Start: 89-55-8831Wldurp outpatient new 30 [address] [facility] ClinicStart: 07-04-2022 End: 09-77-9476bgrvnfcnkcTeyuynh Scally Other [employer] Other Start: 58-32-9013Fahesymnn encounterMiriam Hospital Coordinated Care ClinicStart: 06-28-2022(DM) DiabetesDeWesterly Hospital Coordinated Care ClinicStart: 06-28-2022 End: 86-49-7326yhayummkquKeshujy Scally Other [employer] Other Start: 06-26-2022 End: 97-29-7410tvebxdhrddYzrwpni Scally Other [employer] Other Start: 45-54-8837Ntybgpyxi encounterMiriam Hospital Coordinated Care ClinicStart: 06-19-2022 End: 37-45-4212gczgobhpggSpjjpbi Scally Other [employer] Other Start: 77-16-2931Qdwuzkbmb encounterMiriam Hospital Coordinated Care ClinicStart: 05-05-2022(DM) DiabetesDeWesterly Hospital Coordinated Care ClinicStart: 05-05-2022 End: 22-24-9248pvsfcgtupqVrdhpwe Scally Other [employer] Other Start: 03-27-2022 End: 94-38-7316sizachnzzqFqothbj Scally Other [employer] Other Start: 86-42-0700Cqgeyioiu encounterDepeacehealth peace island hospitalyohan SegalSelect Specialty Hospital Coordinated Care ClinicStart: 02-03-2022(DM) DiabetesDepeacehealth peace island hospitalyohan [facility] Coordinated Care ClinicStart: 02-03-2022 End: 32-28-7398mrvngrjrmzHzdknhh Scally Other [place] [employer] Other Start: 11-21-2021 End: 02-24-9911bzzlbxhkshThrymcx Scally Other [employer] Other Start: 02-53-9080Itepcinbt encounterDeWesterly Hospital Coordinated Care ClinicStart: 11-11-2021 End: 16-54-9966iibdjzbtjhAomsyee Philipply Other [employer] Other Start: 33-78-1268Pwkxbpouz encounterGomezpeacehealth peace island hospitalyohan SegalSelect Specialty Hospital Coordinated Care ClinicStart: 11-01-2021(DM) DiabetesGomezpeacehealth peace island hospitalyohan SegalSelect Specialty Hospital Coordinated Care ClinicStart: 11-01-2021 End: 74-11-5069hpsusgkfgpGmwjqcj Philipply Other nort [employer] Other Start: 10-24-2021 End: 19-31-5935nfspudpjffOggxrqf Scally Other [employer] Other Start: 82-00-9286Pdfafteax encounterGomezWesterly Hospital Coordinated Care ClinicStart: 09-13-2021 End: 88-64-6976chhtosljaqOqvlqgx Philipply Other [employer] Other Start: 81-83-7065Mouoyrxan encounterDeWesterly Hospital Coordinated Care ClinicStart: 08-23-2021 End: 80-46-3813zjeryvmouuKsteqgn Scally Other [employer] Other Start: 55-67-6766Wyydczgqc encounterDeWesterly Hospital Coordinated Care ClinicStart: 08-04-2021 End: 03-71-3051yzzlshhpwrPfskhpg Scally Other [employer] Other Start: 91-62-1617Glcebxbct encounterDeWesterly Hospital Coordinated Care ClinicStart: 07-20-2021(DM) DiabetesDeWesterly Hospital Coordinated Care ClinicStart: 07-20-2021 End: 87-02-1363knmxdayxfbQxtryrb Scally Other [employer] Other Start: 04-08-2020 End: 79-71-9826Tbfckdn encounter procedureINGRID RODRIGUEZFacility:H1 Procedures DateProcedureProcedure DetailPerforming ClinicianHistory of amputation of lesser toeH/O amputation of lesser toePeter [facility] Work Phone: comment on above:right great toeright second toe 11-12-2024 Plan of Treatment DateCare ActivityDetailAuthorStart: 83-44-4321Bnvfu BMI ScreeningAdult BMI ScreeningBrown Memorial Hospital SystemStart: 97-95-9990Epuchtj ScreeningTobacco ScreeningProKindred Healthcare SystemStart: 32-44-8739YcbygxvsrWexner Medical Centertart: 25-72-5018Cuqmekwmp vaccinationInfluenza VaccineBrown Memorial Hospital SystemStart: 93-99-4228Xiauvlj referralAccess [facility] Work Phone: Start: 23-53-0226NhjfuucutPike [facility] Start: 04-07-2024 End: 07-38-4481Ojfgyqp encounter qezwgmhbc49/02/2024 8:30 AM EST Office Visit [facility] [address] [place] [phone] Melanie Daley DO [address] [place] [address] ArrivedNOMS [address] STATE ROUTEComment on above:ArrivedStart: 48-39-5666Prvywanttihltm of varicella zoster vaccine Zoster (Shingles) Vaccine (1 of 2)[facility] SystemStart: 02-06-1980 DTaP,Tdap and Td Vaccines (1 - Tdap)DTaP,Tdap and Td Vaccines (1 - Tdap) [facility] SystemStart: 14-28-3179Qbqjduolpn ScreeningDepression Screening [facility]ja Medical CenterComprehensive metabolic 1999 panel - Serum or Plasma [facility] HospitalComprehensive metabolic 1999 panel - Serum or [facility] HospitalImmunofixation for UrinePike Community HospitalPatient referralAccess Hospital [facility] Work Phone: Renal function 1999 panel - Serum or [facility] HospitalUS Kidney - bilateralTrinity Community Hospital Payers DatePayer CategoryPayerPolicy [id number] 2025Medicare [employer] [id number] [id number] 2023Medicare (Managed Care)[facility] Member Subscriber Plan / Payer (Effective 2022-Present) Name: Jassi Rodriguez Member ID: [id number] Relation to Subscriber: Self Name: Jassi Rodriguez Subscriber ID: [id number] Payer ID: Not on file Group ID: Not on file Type: Not on file Address: [facility] [id number] [id number] [id number] [id number] 2.0.1.345556.3.57[id number] 2.16840.1.442646.3.57[id number] 2.0.1.784902.3.57[id number] 2.0.1.037958.3.57[id number] 2.0.1.838432.3.57[id number] 2.840.1.587621.3.57[id number] 2.0.1.713469.3.57[id number] 2.840.1.248436.3.579.2.1286 [id number] 2.[id number] 2.16840.1.9[id number] 2.16840.1.0[id number] 2..840.1.216801.3.579.2.531 [id number] 2.16.840.1.8[id number] 2..840.1.284994.3.579.2.531 Social History DateTypeDetailFacilityUnknown if ever smokedBoise [employer] Other Start: 06-17-2020 End: 03-42-4241Dwg Assigned At [facility] [employer] Other Start: 31-64-2747Aqv Assigned At [facility] Hospitaltart: 09-10-2023 End: 68-88-5824Pewlzxd smoking status NHISEx-smoker (finding)[facility] HospitalTobamercy hospital [facility] [place] smoking status NHISTobacco smoking consumption [facility] NorthStart: 03-41-6335Sna assigned at [facility] systemNot on fileMercy Hospital Joplin Start: 12-10-2014 End: 64-36-5592PtaQmrv (finding)[facility] HospitalHistory of tobacco useCurrent smokerBrown Memorial Hospital SystemStart: 73-81-4028Hpjwjrhqq beverage intakeCurrent drinker of alcohol (finding)[facility] SystemStart: 06-17-2020 End: 91-19-7215Iwdhfsvnk beverage intakeProKindred Healthcare SystemChildcareUnknown [facility] Medical Equipment Procedure CodeEquipment CodeEquipment Original TextEquipment IdentifierDates Blood Sugar Diagnostic (Onetouch Ultra Test) stripStart: 91-19-0437Kdrbdus [facility] Start: 71-08-0773Emhna Sugar Diagnostic (Onetouch Ultra Test) stripStart: 06-18-2024 End: 02-13-2328Oflobtu miscStart: 06-18-2024 End: 96-45-7418Gyxxy Sugar Diagnostic (Onetouch Ultra Test) stripStart: 10-52-3537Sgbplbb miscStart: 22-06-5885Fissd Sugar Diagnostic (Onetouch Ultra Test) stripStart: 06-18-2024 End: 01-36-1572Qchyokz miscStart: 06-18-2024 End: 22-35-9380Xiebx Sugar Diagnostic (Onetouch Ultra Test) stripStart: 52-50-7376Hnzlagq miscStart: 35-30-2249Mwysi Sugar Diagnostic (Onetouch Ultra Test) stripStart: 06-18-2024 End: 32-87-1737Zkmpyhc miscStart: 06-18-2024 End: 08-84-8294Mcdht Sugar Diagnostic (Onetouch Ultra Test) stripStart: 35-17-0359Hhcokui miscStart: 90-45-8335Cjlaw Sugar Diagnostic (Onetouch Ultra Test) stripStart: 06-18-2024 End: 16-61-1507Dmdjpeb miscStart: 06-18-2024 End: 48-22-6564Lzxev Sugar Diagnostic (Onetouch Ultra Test) stripStart: 22-75-3561Crjbnmk miscStart: 40-99-0957Lawoo Sugar Diagnostic (Onetouch Ultra Test) stripStart: 06-18-2024 End: 58-37-6504Mjcdgmm miscStart: 06-18-2024 End: 35-93-9287Smffi Sugar Diagnostic (Onetouch Ultra Test) stripStart: 64-05-2376Izrzymz miscStart: 86-64-1240Ciopu Sugar Diagnostic (Onetouch Ultra Test) stripStart: 06-18-2024 End: 48-27-8787Nxsavib miscStart: 06-18-2024 End: 24-92-3553Exhmc Sugar Diagnostic (Onetouch Ultra Test) stripStart: 15-47-4407Cesfiis miscStart: 50-22-5492Xlwzn Sugar Diagnostic (Onetouch Ultra Test) stripStart: 06-18-2024 End: 94-82-8834Iidermc miscStart: 06-18-2024 End: 72-10-2370Waxvt Sugar Diagnostic (Onetouch Ultra Test) stripStart: 66-79-0805Spxauni miscStart: 55-02-9503Wiqkp Sugar Diagnostic (Onetouch Ultra Test) stripStart: 06-18-2024 End: 54-27-0883Vrrdkhg miscStart: 06-18-2024 End: 06-18-2024 Goals DatePatient GoalDesired Activity/StatePersonal health goalComment on above: Evaluation of progress towards goal: Patients goal is to discharge to home. Clinical Notes 07-20-2021 to 01-01-2025 Note Date & JonbUzzpDaaboere68-18-6272 Evaluation note* Diagnosis Onset Date Resolution Status Admit Date BMI 25.0-25.9,adult acuteAugust 2024 9:00amDietary counseling and surveillanceacuteAugus2024 9:00amHTN (hypertension)acuteAugus2024 9:00amHyperlipidemia acuteAugus2024 9:00amHypotensionacuteAugus2024 9:00amLong term current use of insulinacuteAugus2024 9:00amPersistent albuminuriaacute January 01, 2025 9:00amType 2 diabetes mellitus with hyperglycemiaacuteAu2024 9:00amVitamin D deficiencyacuteAugus2024 9:00am [facility] Work Phone: 1(132) 384-191108-28-2025 Evaluation note* Diagnosis Onset Date Resolution Status Admit Date BMI 25.0-25.9,adult acuteAugust 2024 9:00amDietary counseling and surveillanceacuteAugus2024 9:00amHTN (hypertension)acuteAugus2024 9:00amHyperlipidemia acuteAugus2024 9:00amHypotensionacuteAugus2024 9:00amLong term current use of insulinacuteAugus2024 9:00amPersistent albuminuriaacute January 01, 2025 9:00amType 2 diabetes mellitus with hyperglycemiaacuteAugus2024 9:00amVitamin D deficiencyacuteAugust 2024 9:00amAnemiaacute March 17, 2025 8:14amCKD (chronic kidney disease)acuteMarch 17, 2025 8:14amHTN (hypertension)acuteMarch 17, 2025 8:14amPersistent albuminuria acuteMarch 17, 2025 8:14amType 2 diabetes mellitus with diabetic chronic kidney diseaseacuteMarch 17, 2025 8:14amVitamin D deficiencyacuteMarch 17, 2025 8:14am [facility] Work Phone: 1(410) 633-758506-19-2025 Evaluation + Plan note* Assessment & Plan Note - Jamil Culver MD - 10/23/2024 11:31 AM EDTAssociated Problem(s): Critical limb ischemia of right lower extremity with gangrene ([facility]) He has no significant occlusive disease. Plan is to continue to work with podiatry and follow up with us as needed. [facility] Mhspyz63-85-7167 Miscellaneous Notes* Assessment & Plan Note - Jamil Culver MD - 10/23/2024 11:31 AM EDTAssociated Problem(s): Critical limb ischemia of right lower extremity with gangrene (CMS-HCC) He has no significant occlusive disease. Plan is to continue to work with podiatry and follow up with us as needed. documented in this encounterUniversity Hospitals Ahuja Medical Center06-19-2025 History of Present illness Narrative* Jamil Culver [...] Diagnosis Date Diabetes mellitus type 2, controlled ([facility]) Hyperlipidemia Hypertension Past Surgical History: Past Surgical History: Procedure Laterality Date lower ext angio Right 10/17/2024 Performed by Jamil Culver MD at [facility] Social and Family [...] you for your understanding. documented in this encounterUniversity Hospitals Ahuja Medical Center06-05-2025 Evaluation note* Diagnosis Onset Date Resolution Status Admit Date BMI 25.0-25.9,adult acuteJune 2024 8:20amDietary counseling and surveillanceacuteJune 2024 8:20amHTN (hypertension)acuteJune 2024 8:20amHyperlipidemiaacuteJune 2024 8:20amHypotensionacuteJune 2024 8:20amLong term current use of insulin acuteJune 2024 8:20amPersistent albuminuriaacuteJune 2024 8:20amType 2 diabetes mellitus with hyperglycemiaacuteJune 2024 8:20amVitamin D deficiencyacuteJune 2024 8:20am [facility] Work Phone: 1(270) 303-971006-05-2025 Evaluation note* Diagnosis Onset Date Resolution Status [...] hyperglycemiaacuteAugust 2024 9:00amVitamin D deficiencyacuteAugust 2024 9:00am [facility] Work Phone: 1(915) 603-336212-18-2024 Evaluation note* Diagnosis Onset Date Resolution Status [...] mellitus with hyperglycemiaacuteFebruary 2024 8:25amVitamin D deficiencyacute June 18, 2024 8:25am [facility] Work Phone: 1(319) 885-799912-02-2024 History of Present illness Narrative* Melanie Daley, [...] , wrist extensors , wrist flexor , burr bench hand strength 5/5. LUE Strength deltoid , biceps , triceps , wrist extensors , wrist flexor , burr bench hand strength 5/5. RLE Strength illopsoas, quadriceps, tibialis [...] reflex 2+ . Christy's sign negative. Coordination: Wpnout-ar-pudu testing and rapid alternating movements are normal [...] plan, and return instructions documented in this [facility]02-01-2024 Evaluation note* Encounter Date Diagnosis Assessment Notes Treatment Notes Treatment Clinical Notes Jun, Type 2 diabetes mellitus with hy perglycemia (ICD-10 - E11.65) [employer] Other 01-30-2024 Evaluation note* Encounter Date Diagnosis [...] - R80.9) May,MI 25.0-25.9,adult (ICD-10 - Z68.25) [employer] Other 10-25-2023 Evaluation note* Encounter Date Diagnosis Assessment Notes Treatment Notes Treatment Clinical Notes Feb, Albuminuria (ICD-10 - R80.9) [employer] Other 10-24-2023 Evaluation note* Encounter Date Diagnosis [...] (ICD-10 - Z68.26) Feb,lbuminuria (ICD-10 - R80.9) [employer] Other 08-15-2023 Evaluation note* Encounter Date Diagnosis [...] protect kidneys. Dec,MI 27.0-27.9,adult (ICD-10 - Z68.27) [employer] Other 05-30-2023 Evaluation note* Encounter Date Diagnosis [...] protect kidneys. September,MI 27.0-27.9,adult (ICD-10 - Z68.27) [employer] Other 03-20-2023 Evaluation note* Encounter Date Diagnosis Assessment Notes Treatment Notes Treatment Clinical Notes Jul, Hyperlipidemia (ICD-10 - E78.5) will refill med and check labs today. Jul,Type 2 diabetes mellitus with hyperglycemia (ICD-10 - E11.65) Continued followup with diabetes clinic. Pt states he hasn't had an eye exam for 2 years - advised followup [employer] Other 02-22-2023 Evaluation note* Encounter Date Diagnosis [...] protect kidneys. Jun,Otherinital weight increase, now declining [employer] Other 02-13-2023 Evaluation note* Encounter Date Diagnosis Assessment Notes Treatment Notes Treatment Clinical Notes Jun, Type 2 diabetes mellitus with hy perglycemia (ICD-10 - E11.65) [employer] Other 12-30-2022 Evaluation note* Encounter Date Diagnosis [...] PCP to manage cholesterol and preventative treatments. [facility] physician group primary care provider flyer [...] will have patient present for download with art educator in 4 weeks and provider in [...] protect kidneys. Apr,therinital weight increase, now declining [employer] Other 09-30-2022 Evaluation note* Encounter Date Diagnosis [...] About Healthy Weight material was published to [employer] Jan,Hyperlipidemia (ICD-10 - E78.5)Learning About High Cholesterol material was published to [employer] LDL 53-- Continue Crestor Jan,HTN (hypertension) (ICD-10 [...] protect kidneys. Jan,therinital weight increase, now declining [employer] Other 07-18-2022 Evaluation note* Encounter Date Diagnosis Assessment Notes Treatment Notes Treatment Clinical Notes Nov, Type 2 diabetes mellitus with hy perglycemia (ICD-10 - E11.65) Nov,Long term current use of insulin (ICD-10 - Z79.4) [employer] Other 06-28-2022 Evaluation note* Encounter Date Diagnosis [...] clinic in 6 weeks for download with art educator in 3 months with provider 3. [...] medication issues. 6. Prescriptions: Non needed today 11-01-21Oct,ietary counseling and surveillance (ICD-10 - Z71.3)Learning About Healthy Weight material was published to portal Oct,Hyperlipidemia (ICD-10 - E78.5)Learning About High Cholesterol material was published to portal LDL 53-- Continue Crestor Oct,HTN (hypertension) (ICD-10 - I10)High Blood Pressure: Care Instructions material was published to portal Oct,Long term current use of insulin (ICD-10 - Z79.4) Oct,MI 27.0-27.9,adult (ICD-10 - Z68.27) Oct,therinital weight increase, now declining [employer] Other 03-16-2022 Evaluation note* Encounter Date Diagnosis [...] increase this. 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 He will request a new mash filter operator from [employer]. We also discussed using cell phone as [...] PCP. He is given information regarding [facility] physicians to include Dr. Vela who may be geographically desirable. I did send him with written to do list 1 call [email or web address] for replacement of mash filter operator. To download [employer] matthew on cell phone for next sensor [...] diabetes medication issues. 6. Prescriptions: Jardiance sent [facility] 07-20-21Jul,2Dietary counseling and surveillance (ICD-10 - Z71.3) Learning About Healthy Weight material was published to portal Jul,Hyperlipidemia (ICD-10 - E78.5) Learning About High Cholesterol material was published to portal LDL 53-- Continue Crestor Jul,HTN (hypertension) (ICD-10 - I10) High Blood Pressure: Care Instructions material was published to portal Jul,Long term current use of insulin (ICD-10 - Z79.4) Jul,2BMI 27.0-27.9,adult (ICD-10 - Z68.27) Jul,therinital weight increase, now declining [facility] [employer] Other Chief complaint+Reason for visit Narrative* Chief Complaint DMN f/u-METER Reason for Visit BMI 25.0-25.9,adult Dietary counseling and surveillance HTN (hypertension) Hyperlipidemia longterm current use of insulin Persistent albuminuria Type 2 diabetes mellitus with hyperglycemia Vitamin D deficiency [facility] Work Phone: Evaluation noteNo InformationNortTrinity Health [employer] Other Evaluation noteNo assessment information available [facility] Work Phone: Evaluation note* Diagnosis Onset Date Resolution Status BMI 25.0-25.9,adult acuteDietary counseling and surveillanceacuteHTN (hypertension)acute HyperlipidemiaacuteLong term current use of insulinacutePersistent albuminuria acuteType 2 diabetes mellitus with hyperglycemiaacuteVitamin D deficiencyacute [facility] Work Phone: Evaluation note* Diagnosis Neuralgia- Primary [...] acuteJune 2024 8:20amVitamin D deficiencyacuteJune 2024 8:20am [facility] Work Phone: Evaluation note* Diagnosis Critical limb ischemia of right lower extremity with gangrene (CMS-HCC)- Primary PAD (peripheral artery disease) Unspecified peripheral vascular disease Gangrene (CMS-HCC) Gangrene Critical limb ischemia of right lower extremity with gangrene (CMS-HCC)- Primary [facility] N[facility] - Reported* Type Description Date Medical History Herpes zoster dermatitis Medical HistoryAbscess, lip- PICC line prolonged ABX 2017Medical HistoryNeck sprain, strainMedical HistoryHypertension, controlledMedical History HyperlipidemiaMedical HistoryDiabetes, type 2Medical HistoryHx of Covid 19 (04/2020)Surgical HistoryPICC [id number] History[facility] [id number] [employer] Other Hospital Discharge instructionsAmbulatory Orders* Referral to Nephrology Time Frame: 01/01/25, Location: None Selected [facility] Work Phone: InstructionsNot on filedocumented in this encounter [facility] SystemReason for referral (narrative)* Reason Nail deformity, Type II Diabetes Referral sent , patient informed Diagnosis 1 Type 2 diabetes reji itus with hyperglycemia (E11.65) Diagnosis 2 Nail deformity (L60. 8) Referral Organization [facility] Referring Provider First Name Yolette Referring Provider Last Name Gabby Referring Provider Specialty Nurse Pract itioner Referred Organization [facility] Referred Provider NORY AHMADI Referred Address ,[place], [place],[address] Referred Provider Specialty Podiatry - S urgical Chiropody Referral Priority Routine General Notes Yolette Benavides 06/08 09:03:14 AM > Per Nelia at Dr Montes office once referral is received she will call patient for appt, Jennifer gonzales Yolette Benavides 06/30/2022 09:23:23 AM > Referral faxed, for some reason last office note did not attach so I did fax the last office note seperatly thru our free standing office fax. and Nasim Yolette Benavides 06/30/2022 09:30:52 AM >Patient informed, and given Dr Montes phone number in case he doesn't hear from them.Clinical NotesDr Nory Ahmadi# [phone] [employer] Other Reason for referral (narrative)No reason for referral information availableSt. [facility] Work Phone: Summary Purpose Family History Relationship Condition Age at Onset Recorded Date/T wilber brother Diabetes mellitus Unknown fatherMalignant neoplasmUnknownDeceasedUnknownNot SpecifiedDeceasedUnknown Diabetes mellitusUnknown Relationship Condition Age at Onset Recorded Date/T wilber brother Diabetes mellitus Unknown fatherMalignant neoplasmUnknownDeceasedUnknownmotherDeceasedUnknownDiabetes mellitusUnknown Advance Directives Advance Directive Response Recorded Date/ [...] 23, 2024 8:54am Dietary counseling and surveillance Rm chen 2023 8:54am HTN (hypertension) April 23, 2024 8:54am Hyperlipidemia April 23, 2024 8:54am longterm current use of insulin Decee r 2023 8:54am Persistent albuminuria April 23 8:54am Type 2 diabetes mellitus with hyperglyce samir April 23, 2024 8:54am Vitamin D deficiency April 23, 2024 8:54am BMI 25.0-25.9,adult June 18, 2024 8:25am Dietary counseling and surveillance Febr uary 2024 8:25am HTN (hypertension) June 18, 2024 8:25am Hyperlipidemia June 18, 2024 8:25am 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 terminal current use of insulin ua2024 8:25am Persistent [...] m Hyperlipidemia October 09, 2024 8:20a m longterm current use of insulin October 8:20am Persistent [...] m Hypotension October 09, 2024 8:20a m 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 terminal current use of insulin October 8:20am Persistent [...] m Hypotension October 09, 2024 8:20a m longterm current use of insulin October 8:20am Persistent albuminuria October 09, 2024 8: 20am Type 2 diabetes mellitus with hyperglyce samir October 09, 2024 8:20am Vitamin D deficiency October 09, 2024 8:20 am BMI 25.0-25.9,adult January 01, 2025 9: 00am Dietary counseling and surveillance [facility] 2024 9:00am HTN (hypertension) January 01, 2025 9: 00am Hyperlipidemia January 01, 2025 9: 00am Hypotension January 01, 2025 9: 00am longterm current use of insulin January 01, 2025 [...] 2025 9: 00am Dietary counseling and surveillance [facility] 2024 9:00am HTN (hypertension) January 01, 2025 9: 00am Hyperlipidemia January 01, 2025 9: 00am Hypotension January 01, 2025 9: 00am longterm current use of insulin January 01, 2025 9:00am Persistent albuminuria January 01, 2025 9:00am Type 2 diabetes mellitus with hyperglyce samir January 01, 2025 9:00am Vitamin D deficiency January 01, 2025 9 :00am Chief Complaint Admit Date DMN f/u January 01, 2025 9: 00am Unknown January 21, 2025 9:30am proteinuria, htn ref by Sheree Miranda 2024 8:14am Reason for Visit Admit Date BMI 25.0-25.9,adult January 01, 2025 9: 00am Dietary counseling and surveillance [facility] 2024 9:00am HTN (hypertension) January 01, 2025 9: 00am Hyperlipidemia January 01, 2025 9: 00am Hypotension January 01, 2025 9: 00am longterm current use of insulin January 01, 2025 9:00am Persistent albuminuria January 01, 2025 9:00am Type 2 diabetes mellitus with hyperglyce samir January 01, 2025 9:00am Vitamin D deficiency January 01, 2025 9 :00am Anemia March 17, 2025 8:14am CKD (chronic kidney disease) March 172024 8:14am HTN (hypertension) March 17, 2025 8:14am Persistent albuminuria March 17 8:14am Type 2 diabetes mellitus wit h diabetic chronic kidney disease March 17, 2025 8:14am Vitamin D deficiency March 17, 2025 8:14am Additional Source Comments (unrecognized sect ion and content) No Status Records FoundNo Status Records FoundNo Status Records FoundNo Status Records FoundNo Status Records FoundNo Status Records Found INFORMATION SOURCE (unrecogn ized section and content) DATE CREATED AUTHOR 04/12/2020 [facility] DATE CREATED AUTHOR AUTHOR'S ORGANIZ ATION 04/07/2024 [facility] EPIC DATE CREATED AUTHOR AUTHOR'S ORGANIZ ATION 10/20/2024 [facility] DATE CREATED AUTHOR AUTHOR'S ORGANIZ ATION 10/26/2024 [facility] DATE CREATED AUTHOR AUTHOR'S ORGANIZ ATION 02/07/2025 [facility] DATE CREATED AUTHOR AUTHOR'S ORGANIZ ATION 02/26/2025 [facility] REASON FOR VISIT (unrecogniz ed section and [...] Care Provider Active Start: September 20, 2024 Randa Bessending ProviderActiveStart: September 20, 2024 Team Status: Active Member Role Status Dates Francisco Walters BASKET FILLER-C Primary Care Provider Active Start: September 21, 2024 Cornell Loco ProviderActiveStart: September 21, 2024 Team Status: Active Member Role Status Dates Francisco Walters NP-C Primary Care Provider Active Start: September 22, 2024 Baker Fawwad , MDAttending ProviderActiveStart: September 22, 2024 Team Status: Active Member Role Status Dates JOHN SalinasC Primary Care Provider Active Start: September 23, 2024 Shaikh Shaji , URMILAttending ProviderActiveStart: September 23, 2024 Team Status: Inactive [...] Member Role Status Dates Yolette Ge , 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 Attending Provider Active Start: June 05, 2023 End: June 05, 2023 Team Status: Inactive Member Role Status Dates Yolette Ge , 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 ActiveStart: June 05, 2023 End: June 05, 2023[facility] Care ProviderActiveStart: June 05, 2023 End: June 05eborah C Scally , APRNAttending ProviderActiveStart: June 05, 2023 End: June 05, 2023 Team Status: Inactive Member Role Status Dates Annie Rodgers MD Primary Care Provider Active Start: September 10, 2023 End: September 09eborah C Scally , APRNAttending ProviderActiveStart: September 10, 2023 End: September 10, 2023 Team Status: Inactive Member Role Status Dates Annie Rodgers MD Primary Care Provider Active Start: January 21, 2024 End: January 20eborah C Scally , APRNAttending ProviderActiveStart: January 21, 2024 End: January 21, 2024Team MemberRelationshipSpecialtyStart DateEnd Date Melanie Daley DO [address] [place] [address] Referring UptepqmgrPwlwcsnqy34/2/24 Leticia Blanco NP [address] [place] [address] Nurse YjtxdmydbaltBtnteroku63/2/24 Suzanna Ybarra NP [address] [place] [phone] Nurse HyrxiaakmpofDalteagui07/2/24 Team Status: Inactive Member Role Status Dates Annie Rodgers MD Primary Care Provider Active Start: April 23, 2024 End: April 23Jorge Anthony ProviderActiveStart: April 23, 2024 End: April 23, [...] MemberRelationshipSpecialtyStart DateEnd Date No Pcp, [place] [address] [facility] Team Status: Inactive Member Role Status Dates Mayra Spears DPM MS Attending Provider Active Start: January 21, 2025 End: January 21, 2025 Team Status: Active Member Role/Relationship Status Dates PHYSICIAN NO FAMILY Primary Care Provider Active Team Status: Inactive Member Role/Relationship Status Dates Yolette Ge APRN Attending Provider Active Start: January 01, 2025 End: January 01, 2025NON STAFFPrimary Care ProviderActiveStart: January 01, 2025 End: January 01, 2025 Team Status: Inactive Member Role/Relationship Status Dates Mayra Spears DPM MS Attending Provider Active Start: January 21, 2025 End: January 21, 2025 Team Status: Inactive Member Role/Relationship Status Dates Ninoska Yusuf MD Attending Provider Active Start : March 17, 2025 End: March 17, 2025PHYSICIAN NO FAMILYPrimary Care ProviderActiveStart: March 17, 2025 End: March 17, 2025 Goals (unrecognized section and content) Goals [...] BE BASED ON THE PRIMARY CLINICAL RECORDS. [facility]. provides no warranty or guarantee of the accuracy or completeness of information in this document.
== END 2025-03-25 09:09 | disposition home or self-care (01) ==
LOC: WC 09:09
PROVIDERS: Visit Provider Podiatrist Foot & Ankle Surgery
DX: I70.261 Atherosclerosis of native arteries of extremities with gangrene, right leg (principal); L97.514 Non-pressure chronic ulcer of other part of right foot with necrosis of bone; M86.471 Chronic osteomyelitis with draining sinus, right ankle and foot
CPT/HCPCS: G0463